=== PATIENT | female | born 1985 | race Caucasian/White ===

== ENCOUNTER 2023-05-23 | Outpatient (REF) | payer MEDICARE, SELFPAY | END 2023-05-23 00:01 | disposition home or self-care (01) | LOC: LAB | PROVIDERS: Visit Provider Obstetrics & Gynecology | DX: N64.52 Nipple discharge (principal) | CPT/HCPCS: 87070 ==

== ENCOUNTER 2023-12-01 08:58 | Outpatient (OUT) | payer MEDICARE, MEDICAID, SELFPAY ==
--- NOTE | 2023-12-01 09:09 | US_ITS ---
The [address] [address] Patient Name: ALMA DELIA NORTON MRN: [id number] date: 1985 Sex: F Assigned Patient Location: [place] Current Patient Location: [place] Accession/Order Number: [id number] Exam Date: 12/01/2023 09:40 Report Date: 12/01/2023 10:21 At the request of: SAMANTA CASTELLANOS Procedure: US chest EXAM: US chest HISTORY: Swollen Breast, Breast Pain, Left Nipple Drainage COMPARISON: None. TECHNIQUE: Grayscale and color ultrasound FINDINGS: Identified in the region of the patient's pain and swelling is a 2.3 x 2.3 x 1.6 cm heterogeneous hypoechogenic cystic mass having a thick wall measuring up to 2.7 mm.. There is hypervascularity peripherally with no definite internal vascularity. This lesion is 4 mm below the skin surface within the subcutaneous fat superficial to muscle US/US chest IMPRESSION: 2.3 cm cystic mass with a hypervascular thick rim. Consider an abscess Electronically authenticated by: CHANTELL BEY Date: 12/01/2023 10:21
--- OUTSIDE RECORDS SUMMARY | 2023-12-01 09:20 | XMS_ITS | CCD ---
Author Organization [facility] Inform ion Partnership [facility] Care Team Providers Care Machine Attendant Name Role Phone JAMES BLACKMON Unavailable Unavailable JAMES BLACKMON Unavailable Unavailable RADHA PRESTON Unavailable Unavailable KEILA LYNCH Unavailable Unavailable EDEN, ANTON Unavailable Unavailable HAY, ANTON Unavailable Unavailable JUAN DIEGO MANZANARES Unavailable Unavailable STRUS, SHAJI Unavailable Unavailable STRUS, SHAJI Unavailable Unavailable STRUS, SHAJI Unavailable Unavailable Lacey LAZO Primary Care Physician Sharonda CORTEZ Unavailable Kyung Mayorga Unavailable Unavailable Keila Lynch Primary Care Provider David Eubanks Unavailable James Rodriguez V Unavailable Nerissa Rivera Primary Care Physician Unavail able Keila Lynch Primary Care Provider David Eubanks Unavailable NERISSA RIVERA Primary Care Physician [phone] Kem Patel Attending Unavailable Kem Patel Admitting Unavailable Lacey Lazo Primary Care Unavailable Kanu Rudolph Attending Unavailable Kanu Rudolph Admitting Unavailable Lacey Lazo Primary Care Unavailable Michael Guzman Unavailable SAUD BLUM Primary Care Physician [phone] NONE, XXXX Primary Care Physician Unavailab humberto MICHEL, GENERIC Primary Care Physician Unavailab Irasema Masters Primary Care Physician Keila Lynch PA-C Primary Care Provider David Eubanks DO Unavailable JOHN PIERCE Attending Unavailable SYED KEILA JEAN Primary Care Unavailabl e SYED, KEILA MANNING Primary Care Unavailabl e EDMUNDO DEVLIN Referring Unavailable EDMUNDO DEVLIN Attending Unavailable KEILA LYNCH KERRI Primary Care UnavailHERI Goncalves Attending Unavailable BAN BENTLEY Attending Unavailable BAN BENTLEY Referring Unavailable KEYLA GUSMAN Attending Unavailable MICHAELA RILEY Attending Unavailable SAMANTA CASTELLANOS Attending Unavailable Aicha Dean Attending Unavailable MissIrasema roach Attending Unavailab humberto DorisDaron Attending Unavailable Missler, Irasema Medley Attending Unavailab le Missler, Irasema Medley Attending Unavailab le Missler, Irasema Medley Attending Unavailab le Missler, Irasema Medley Attending Unavailab humberto MouranDaron bazzi Attending Unavailable James Faulkner Attending Unavailable DO Celena Dias Attending Unavailable James Faulkner Attending Unavailable James Faulkner Attending Unavailable Aicha Dean Admitting Unavailable Aicha Dean Attending Unavailable Aicha Dean Referring Unavailable Missmarley, Irasema Medley Admitting Unavailab le Missmarley, Irasema Medley Attending Unavailab humberto BEVERLYKYUNG Attending Unavailable SAMANTA CASTELLANOS Referring Unavailable WILLIE GALINDO Attending UnavailANNABEL Antonio Attending Unavailable Allergies Allergy Classification Reported Allergen(s) Allergy Type Date of Onset Reaction(s) Facility Eggs (1 source) Egg Food Allergy Vomiting (disorder) [facility] Latex (1 source) Latex Substance Allergy Eruption of skin (disorder) [facility] lurasidone (1 source) lurasidone; Translations: [lurasidone] Drug Allergy Intolerance, function (observable entity) [facility] Opioid Agonists (2 sources) Codeine; Translations: [codeine] Drug Allergy Childhood, function (observable entity) [facility] Penicillins (antibiotic) (1 source) Penicillin; Translations: [penicillin] Drug Allergy Childhood, function (observable entity) [facility] Phenazopyridine (1 source) Phenazopyridine; Translations: [phenazopyridine] Drug Allergy Pain [facility] Serotonin-1b and Serotonin-1d Receptor Agonists (1 source) SUMAtriptan; Translations: [sumatriptan] Drug Allergy Respiratory function (observable entity), Tight chest (finding) [facility] (3 sources) codeine; Translations: [CODEINE] Drug Allergy 08-17-19 06 [facility] Rep[facility] (2 sources) egg extract; Translations: [EGG] Drug Allergy 07-11-19 [facility] (20 sources) Latex; Translations: [LATEX] Drug allergy (disorder) 08-17-19 Eruption of skin (disorder) [facility] (3 sources) morphine; Translations: [MORPHINE] Drug Allergy 05-23-19 09 [facility] (2 sources) Penicillins; Translations: [PENICILLINS] Drug allergy (disorder) 11-16-19 07 [facility] (2 sources) phenazopyridine; Translations: [Pyridium] Drug Allergy [facility] (20 sources) Codeine; Translations: [codeine] Drug Allergy 08-17-19 Childhood, function (observable entity) [facility] (20 sources) Egg; Translations: [Eggs] Food allergy Vomiting (disorder) [facility] (20 sources) lurasidone; Translations: [lurasidone] Drug Allergy 03-31-20 22 Intolerance, function (observable entity), Other: See Comments, Intolerance [facility] (20 sources) Morphine; Translations: [morphine] Drug Allergy 05-23-19 09 rash, SOB, Unknown [facility] (20 sources) Penicillin; Translations: [penicillin] Drug Allergy Childhood, function (observable entity) [facility] (20 sources) Phenazopyridine; Translations: [phenazopyridine] Drug Allergy Pain, Unknown [facility] (20 sources) SUMAtriptan; Translations: [sumatriptan] Drug Allergy Respiratory function (observable entity), Tight chest (finding) [facility] (20 sources) Dairy 1 Drug intolerance unknown [facility] Comment on above: splenda molasses dairy high fructose corn syrup eggs Reactions of the above unkown. splenda molasses dairy high fructose corn syrup eggs Reactions of the above unkown. (11 sources) egg extract Drug Allergy 07-11-19 Rash [facility] Work Phone: (11 sources) Latex Propensity to adverse reactions 08-17-19 Rash, Swelling [facility] (1 source) Penicillins Propensity to adverse reactions 11-16-19 07 [facility] (12 sources) Phenazopyridine; Translations: [PHENAZOPYRIDINE HCL] Drug Allergy 10-31-19 08 [facility] (12 sources) SUMAtriptan; Translations: [SUMATRIPTAN SUCCINATE] Drug Allergy 05-16-19 10 [facility] (12 sources) Erythromycin; Translations: [ERYTHROMYCIN] Drug Allergy 03-31-20 Other: See Comments [facility] (10 sources) Penicillins Propensity to adverse reactions 11-16-19 [facility] (11 sources) semaglutide; Translations: [SEMAGLUTIDE] Drug Allergy 03-31-20 GI Upset [facility] (1 source) Codeine Drug Allergy 07-08-19 [facility] Repository (1 source) Morphine Drug Allergy 07-08-19 [facility] Rep[facility] (1 source) Penicillins Drug allergy (disorder) 07-08-19 [facility] Repository (1 source) Phenazopyridine Drug Allergy 07-08-19 [facility] Rep[facility] (1 source) SUMAtriptan Drug Allergy 07-08-19 [facility] Rep[facility] (3 sources) codiene Propensity to adverse reactions Unknown [facility] Other (1 source) Ciprofloxacin; Translations: [ciprofloxacin] Drug Allergy [facility] Repository (1 source) Ciprofloxacin; Translations: [Cipro] Drug Allergy [facility] Repository (1 source) Dairy; Translations: [Dairy] Propensity to adverse reactions (disorder) [facility] Repository Medications Current Medications Medication Drug Class(es) Dates Sig (Normalized) Sig (Original) 0.5 ML semaglutide 0.5 MG/ML Auto-Injector (3 sources) Start: 07-23-2021 End: 09-17-2021 inject 0.25 mg by subcutaneous injection every week Wegovy (0.25 mg dose) subcutaneous solution 0.25 mg, SubCutaneous, qWeek, X 4 week(s), # 4 EA, Refills(s) 1, Pharmacy: [facility] #[id number], 175, cm, 07/23/21 10:50:00 EDT, Height/Length Dosing, 136.3, kg, 07/23/21 10:50:00 EDT, Weight Dosing Start Date: 07/23/21 Stop Date: 09/17/21 Status: Ordered 0.5 ML tirzepatide 10 MG/ML Auto-Injector [Mounjaro] (3 sources) Mounjaro 5 MG/0. 5ML as directed Subcutaneous Active 3 ML semaglutide 1.34 MG/ML Pen Injector [Ozempic] (10 sources) Start: 12-08-2021 inject 1 mg by subcutaneous injection every week Ozempic (1 mg dose) 4 mg/3 mL subcutaneous solution 1 mg, SubCutaneous, qWeek, # 4 EA, Refills(s) 3, Pharmacy: [facility] #[id number], 175, cm, 11/24/21 9:21:00 EDT, Height/Length Dosing, 136.3, kg, 11/24/21 9:21:00 EDT, Weight Dosing Start Date: 12/08/21 Status: Ordered Start: 10-15-2021 Ozempic (1 mg dose) 4 mg/3 mL subcutaneous solution 1 mg, SubCutaneous, qWeek, To be filled after 0.5 mg dose is filled, # 1 EA, Refills(s) 11, Pharmacy: [facility]/pharmacy #[id number], 175.3, cm, 09/30/21 11:01:00 EDT, Height/Length Dosing, 136.5, kg, 09/30/21 11:01:00 EDT, Weight Dosing Start Date: 10/15/21 Status: Ordered acetaminophen 325 mg / HYDROcodone bitartrate 5 mg oral tablet (2 sources) Opioid Agonist Start: 11-28-2023 End: 11-30-2023 [place] 325 mg-5 mg oral tablet 1 tab(s), Oral, q6hr for pain for 2 day(s), 8 tab(s), Refill(s) 0, [facility] #[id number], 175, cm, 11/28/23 19:12:00 EDT, Height/Length Dosing, 139, kg, 11/28/23 19:12:00 EDT, Weight Dosing Start Date: 11/28/23 Stop Date: 11/30/23 Status: Ordered Albuterol (Eqv-ProAir HFA) 90 mcg/inh inhalation aerosol (12 sources) Start: 03-14-2023 take 2 puff(s) by inhalation every six hours Albuterol (Eqv-ProAir HFA) 90 mcg/inh inhalation aerosol 2 puff(s), Inhalation, q6hr, 18 gm, Refill(s) 4, [facility] #[id number], 173, cm, 03/14/23 16:23:00 EST, Height/Length Dosing, 132.2, kg, 03/14/23 16:23:00 EST, Weight Dosing Start Date: 03/14/23 Status: Ordered albuterol CFC free 90 mcg/inh Inh Aer w/Adapt 8 gm (Ventolin) (13 sources) Start: 03-25-2021 take 2 puff(s) by inhalation every six hours for wheezing albuterol CFC free 90 mcg/inh Inh Aer w/Adapt 8 gm (Ventolin) 2 puff(s), Inhalation, q6hr for wheezing, 18 gram, Refill(s) 11, [facility] #[id number], 176, cm, 03/25/21 10:04:00 EST, Height/Length Dosing, 136.6, kg, 03/25/21 10:04:00 EST, Weight Dosing Start Date: 03/25/21 Status: Ordered Ascorbic Acid (20 sources) Vitamin C Start: 07-07-2020 Vitamin C Refills(s) 0 Start Date: 07/07/20 Status: Ordered azithromycin 250 mg oral tablet (2 sources) Macrolide Antimicrobial Start: 07-01-2023 End: 07-06-2023 Zithromax 250 mg Tab = 1 packet(s), Oral, As Directed, as directed on package labeling, X 5 day(s), # 6 tab(s), Refills(s) 0, Pharmacy: [facility] #[id number], 173, cm, 07/01/23 12:09:00 EST, Height/Length Dosing, 137, kg, 07/01/23 12:09:00 EST, Weight Dosing Start Date: 07/01/23 Stop Date: 07/06/23 Status: Ordered Start: 03-14-2023 End: 03-19-2023 azithromycin 250 mg Tab = 1 packet(s), Oral, As Directed, as directed on package labeling, X 5 day(s), # 6 tab(s), Refills(s) 0, Pharmacy: [facility] #[id number], 173, cm, 03/14/23 16:23:00 EST, Height/Length Dosing, 132.2, kg, 03/14/23 16:23:00 EST, Weight Dosing Start Date: 03/14/23 Stop Date: 03/19/23 Status: Ordered bifidobacterium infantis 4 mg oral capsule (6 sources) Start: 06-22-2021 take 1 capsule by mouth once daily Align 4 mg oral capsule 4 mg = 1 cap(s), Oral, Daily, # 28 cap(s), Refills(s) 2, Pharmacy: [facility] #[id number], 175, cm, 06/22/21 13:23:00 EST, Height/Length Dosing, 134.4, kg, 06/22/21 13:23:00 EST, Weight Dosing Start Date: 06/22/21 Status: Ordered brexpiprazole 3 mg oral tablet (20 sources) Atypical Antipsychotic Start: 05-20-2023 Rexulti 3 mg oral tablet Refills(s) 0 Start Date: 05/20/23 Status: Ordered Start: 01-07-2022 brexpiprazole (REXULTI) 2 mg tablet Start: 11-24-2021 Rexulti 1 mg o ral tablet Refills(s) 0 Start Date: 11/24/21 Status: Ordered take 1 tablet by [facility] every twenty-four hours 12 hr buPROPion hydrochlorid e 100 mg extended release oral tablet (20 sources) Aminoketone Start: 09-23-2022 Start: 11-21-2019 take 1 tablet by [facility] once daily buPROPion 100 mg ER Tab 100 mg = 1 tab(s), Oral, Daily, # 30 tab(s), Refills(s) 0, Pharmacy: [facility] #[id number], 175, cm, 10/26/19 8:51:00 EDT, Height/Length Measured, 133.1, kg, 10/26/19 8:51:00 EDT, Weight Measured Start Date: 11/21/19 Status: Ordered Wellbutrin Not-T aking End: 03-31-2022 take 1 tablet by mouth once daily buPROPion XL (WELLBUTRIN XL) 300 mg 24 hr tablet Take 300 mg by mouth once daily. 0 03/31/2022 Discontinued (Course of therapy completed) Comment on above: Take 300 mg by mouth once daily. bupropion hydrochloride 105 MG / dextromethorphan hydrobromide 45 MG Extended Release Oral Tablet [Auvelity] (9 sources) Start: 05-20-2023 Auvelity 45 mg-105 mg oral tablet, extended release Refill(s) 0 Start Date: 05/20/23 Status: Ordered busPIRone hydrochloride 15 mg oral tablet (20 sources) Start: 05-20-2023 take 1 tablet by mouth three times daily busPIRone 15 mg Tab TAKE 1 TABLET BY MOUTH THREE TIMES DAILY Start Date: 05/20/23 Status: Ordered Start: 09-23-2022 busPIRone Oral , BID, Refills(s) 0 Start Date: 09/23/22 Status: Ordered Start: 03-23-2022 buspirone HCl (BUSPAR ORAL) take 1 tablet by [facility] three times daily BuSpar 15 MG 1 tablet Orally THREE TIMES A DAY Active cariprazine 3 mg oral capsule (6 sources) Atypical Antipsychotic Start: 08-25-2021 take 1 mg by mouth once daily Vraylar 3 mg oral capsule mg cap(s), Oral, Daily Start Date: 08/25/21 Status: Ordered cephalexin 500 mg oral capsule (1 source) Cephalosporin Antibacterial Start: 11-29-2023 End: 12-09-2023 take 1 capsule by mouth three times daily Keflex 500 mg Cap 500 mg = 1 cap(s), Oral, TID, X 10 day(s), # 30 cap(s), Refills(s) 0, Pharmacy: [facility] #[id number], 175, cm, 11/29/23 20:31:00 EDT, Height/Length Dosing, 139, kg, 11/29/23 20:31:00 EDT, Weight Dosing Start Date: 11/29/23 Stop Date: 12/09/23 Status: Ordered ciprofloxacin 500 mg oral tablet (3 sources) Quinolone Antimicrobial Start: 12-25-2021 take 1 tablet by mouth twice daily Cipro 500 mg Tab 500 mg = 1 tab(s), Oral, BID, # 28 tab(s), Refills(s) 0 Start Date: 12/25/21 Status: Ordered clindamycin 300 mg oral capsule (2 sources) Lincosamide Antibacterial Start: 11-28-2023 End: 12-05-2023 take 1 capsule by mouth every six hours clindamycin 300 mg oral cap 300 mg = 1 cap(s), Oral, q6hr, X 7 day(s), # 28 cap(s), Refills(s) 0, Pharmacy: [facility] #[id number], 175, cm, 11/28/23 19:12:00 EDT, Height/Length Dosing, 139, kg, 11/28/23 19:12:00 EDT, Weight Dosing Start Date: 11/28/23 Stop Date: 12/05/23 Status: Ordered Clotrimazole (6 sources) Azole Antifungal Start: 06-22-2021 clotrimazole Top 1% Crm 1 carlo, Topical, BID, 45 gram, Refill(s) 0, [facility] #16, 175, cm, 06/22/21 13:23:00 EST, Height/Length Dosing, 134.4, kg, 06/22/21 13:23:00 EST, Weight Dosing Start Date: 06/22/21 Status: Ordered dextromethorphan-bu PROPion (AUVELITY) 45-105 mg tablet (2 sources) Start: 03-10-2023 take 1 tablet by mouth twice daily dextromethorphan- buPROPion (AUVELITY) 45-105 mg tablet 1 tablet Orally twice daily for 90 days 0 03/10/2023 Active dicyclomine hydrochloride 20 mg oral tablet (20 sources) Anticholinergic Start: 08-18-2022 take 1 tablet by mouth every eight hours Start: 12-25-2021 End: 01-01-2022 take 1 capsule by mouth four times daily Bentyl 10 mg Cap 10 mg = 1 cap(s), Oral, QID, X 7 day(s), # 14 cap(s), Refills(s) 0 Start Date: 12/25/21 Stop Date: 01/01/22 Status: Ordered Start: 11-01-2021 End: 11-08-2021 take 1 capsule by mouth four times daily Bentyl 10 mg Cap 10 mg = 1 cap(s), Oral, QID, X 7 day(s), # 14 cap(s), Refills(s) 0 Start Date: 11/01/21 Stop Date: 11/08/21 Status: Ordered Start: 02-06-2021 take 1 tablet by [facility] four times daily dicyclomine 20 mg Tab 20 mg = 1 tab(s), Oral, QID, # 12 tab(s), Refills(s) 0, Pharmacy: [facility] #[id number], 175, cm, 02/06/21 19:35:00 EDT, Height/Length Dosing, 136, kg, 02/06/21 19:35:00 EDT, Weight Dosing Start Date: 02/06/21 Status: Ordered Comment on above: Take 20 mg by mouth as needed. 0.5 ml dulaglutide 3 mg/ml auto-injector (1 source) GLP-1 Receptor Agonist Start: 03-30-20 End: 09-27-19 inject 1.5 mg by subcutaneous injection every week Trulicity Pen 1.5 mg/0.5 mL subcutaneous solution 1.5 mg, SubCutaneous, qWeek, X 30 day(s), # 4 EA, Refills(s) 5, Pharmacy: [facility] #[id number], 175, cm, 12/31/21 19:57:00 EDT, Height/Length Dosing, 139.2, kg, 12/31/21 19:57:00 EDT, Weight Dosing Start Date: 03/30/22 Stop Date: 09/26/22 Status: Ordered eluxadoline 75 mg oral tablet (2 sources) mu-Opioid Receptor Agonist Start: 10-30-19 take 1 tablet by mouth every twelve hours Emgality Prefilled Syringe 120 mg/mL subcutaneous solution (3 sources) Start: 08-26-19 inject 1 mg by subcutaneous injection every month Emgality Prefilled Syringe 120 mg/mL subcutaneous solution mg, SubCutaneous, qMonth Start Date: 08/25/21 Status: Ordered famotidine 40 mg oral tablet (19 sources) Histamine-2 Receptor Antagonist Start: 08-19-19 Start: 05-23-2022 take 1 tablet by [facility] once daily Pepcid 20 mg Tab 20 mg = 1 tab(s), Oral, Daily, # 14 tab(s), Refills(s) 0, Pharmacy: [facility]/pharmacy #[id number], 175, cm, 05/23/22 6:53:00 EST, Height/Length Dosing, 139.2, kg, 05/23/22 6:53:00 EST, Weight Dosing Start Date: 05/23/22 Status: Ordered Flonase 0.05 mg/inh nasal spray (6 sources) Start: 12-15-2018 Flonase 0.05 m g/inh nasal spray 2 spray(s), Nasal, Daily, 16 gram, Refill(s) 5, each nostril, [facility] #[id number] Start Date: 12/15/18 Status: Ordered fluticasone propionate 0.05 mg/actuat metered dose nasal spray (19 sources) Corticosteroid Start: 09-09-2020 End: 08-18-2021 take 2 spray(s) nasal route once daily fluticasone (FLONASE) 50 mcg/actuation nasal spray Indications: Severe persistent asthma without complication , Dyspnea, unspecified type , Obesity, unspecified classification, unspecified obesity type, unspecified whether serious comorbidity present , Allergic rhinitis due to pollen, unspecified seasonality , Sleep apnea, unspecified type SHAKE LIQUID AND USE 2 SPRAYS IN EACH NOSTRIL EVERY DAY 48 g 3 08/18/2021 Active Start: 12-15-2018 Flonase 0.05 m g/inh nasal spray 2 spray(s), Nasal, Daily, 16 gram, Refill(s) 5, each nostril, [facility] #[id number] Start Date: 12/15/18 Status: Ordered Comment on above: SHAKE LIQUID AND USE 2 SPRAYS IN EACH NOSTRIL EVERY DAY 120 actuat fluticasone propionate 0.23 mg/actuat / salmeterol 0.021 mg/actuat metered dose inhaler (11 sources) Corticosteroid, beta2-Adrenergic Agonist Start: 01-07-20 take 2 puff(s) by mouth twice daily ADVAIR HFA 230-21 mcg/actuation inhaler Indications: Severe persistent asthma without complication , Dyspnea, unspecified type , Obesity, unspecified classification, unspecified obesity type, unspecified whether serious comorbidity present , Allergic rhinitis due to pollen, unspecified seasonality , Gastroesophageal reflux disease , Sleep apnea, unspecified type INHALE 2 PUFFS BY MOUTH TWICE DAILY DIRECTED 12 g 11 01/06/2021 Active Comment on above: INHALE 2 PUFFS BY [facility] TWICE DAILY DIRECTED 1 ml galcanezumab-gnlm 120 mg/ml auto-injector (20 sources) Start: 05-20-19 inject 1 mL by subcutaneous injection every month Emgality Prefilled Pen 120 mg/mL subcutaneous solution ADMINISTER 1 ML UNDER THE SKIN MONTHLY Start Date: 05/20/23 Status: Ordered Start: 10-07-2022 inject 1 mL by subcu taneous injection every 30 days galcanezumab-gnlm (EMGALITY PEN) 120 mg/mL pen ADMINISTER 1 ML UNDER THE SKIN EVERY 30 DAYS 0 10/07/2022 Active Start: 08-25-2021 inject 1 mg by subcu taneous injection every month Emgality Prefilled Syringe 120 mg/mL subcutaneous solution mg, SubCutaneous, qMonth Start Date: 08/25/21 Status: Ordered hydrOXYzine pamoate 25 mg oral capsule (19 sources) Antihistamine Start: 05-20-2023 take 1 capsule by mouth every six hours as needed for anxiety hydrOXYzine pamoate 25 mg Cap TAKE 1 CAPSULE BY MOUTH EVERY 6 HOURS NEEDED FOR ANXIETY Start Date: 05/20/23 Status: Ordered Start: 03-22-2022 take 1 capsule by [facility] once daily at bedtime as needed hydrOXYzine pamoate (VISTARIL) 25 mg capsule TAKE 1 CAPSULE BY MOUTH EVERY DAY AT BEDTIME NEEDED 0 03/22/2022 Active Comment on above: TAKE 1 CAPSULE BY [facility] EVERY DAY AT BEDTIME NEEDED Imodium A-D EZ Chews 2 mg oral tablet, chewable (9 sources) Start: 10-21-2022 Imodium A-D EZ Chews 2 mg oral tablet, chewable 2 mg, 1 tab(s), Chewed, q4hr Diarrhea, 12 tab(s), Refill(s) 0, [facility]/pharmacy #[id number], 173, cm, 10/21/22 16:01:00 EDT, Height/Length Dosing, 139, kg, 10/21/22 16:01:00 EDT, Weight Dosing Start Date: 10/21/22 Status: Ordered L-Tyrosine (3 sources) Start: 03-25-2021 L-Tyrosine Refills(s) 0 Start Date: 03/25/21 Status: Ordered lamoTRIgine (6 sources) Mood Stabilizer, Anti-epileptic Agent Start: 06-22-2021 lamotrigine 25 mg Tab Refills(s) 0 Start Date: 06/22/21 Status: Ordered 200 actuat levalbuterol 0.04 5 mg/actuat metered dose inhaler (3 sources) beta2-Adrenergic Agonist take 1 puff(s) by in halation every four hours as needed Xopenex HFA 45 MCG/ACT 1 puff as needed Inhalation every 4 hrs Active loperamide hydrochloride 2 mg chewable tablet (17 sources) Opioid Agonist Start: 10-21-2022 Imodium A-D EZ Chews 2 mg oral tablet, chewable 2 mg, 1 tab(s), Chewed, q4hr Diarrhea, 12 tab(s), Refill(s) 0, [facility]/pharmacy #[id number], 173, cm, 10/21/22 16:01:00 EDT, Height/Length Dosing, 139, kg, 10/21/22 16:01:00 EDT, Weight Dosing Start Date: 10/21/22 Status: Ordered Start: 02-06-2021 take 1 tablet by [facility] th every four hours as needed Imodium A-D 2 mg oral tablet 2 mg = 1 tab(s), Oral, q4hr, PRN for loose stools, # 12 tab(s), Refills(s) 0, Pharmacy: [facility] #[id number], 175, cm, 02/06/21 19:35:00 EDT, Height/Length Dosing, 136, kg, 02/06/21 19:35:00 EDT, Weight Dosing Start Date: 02/06/21 Status: Ordered lumateperone 42 mg oral capsule (3 sources) Start: 06-22-2021 Caplyta 42 mg oral capsule Refills(s) 0 Start Date: 06/22/21 Status: Ordered Magnesium Oxide (15 sources) Start: 09-23-2022 magnesium oxid e Oral, Refills(s) 0 Start Date: 09/23/22 Status: Ordered meclizine hydrochloride 25 mg oral tablet (2 sources) Antiemetic Start: 12-31-2021 End: 01-05-2022 take 1 tablet by mouth three times daily meclizine 25 mg Tab 25 mg = 1 tab(s), Oral, TID, X 5 day(s), # 15 tab(s), Refills(s) 0, Pharmacy: [facility] #[id number], 175, cm, 12/31/21 19:57:00 EDT, Height/Length Dosing, 139.2, kg, 12/31/21 19:57:00 EDT, Weight Dosing Start Date: 12/31/21 Stop Date: 01/05/22 Status: Ordered metFORMIN hydrochloride 500 mg oral tablet (9 sources) Biguanide Start: 08-25-2021 End: 12-23-2021 take 2 tablets by mouth twice daily metformin 500 mg oral tablet, extended release 1,000 mg = 2 tab(s), Oral, BID, X 30 day(s), # 120 tab(s), Refills(s) 3, Pharmacy: [facility] #[id number], 176, cm, 08/25/21 14:44:00 EDT, Height/Length Dosing, 138.6, kg, 08/25/21 14:44:00 EDT, Weight Dosing Start Date: 08/25/21 Stop Date: 12/23/21 Status: Ordered Start: 06-08-2018 End: 02-18-2022 take 1 tablet by mouth every twenty-four hours metoclopramide 5 mg oral tablet (1 source) Dopamine-2 Receptor Antagonist Start: 07-25-2023 End: 08-01-2023 take 1 tablet by mouth four times daily Reglan 5 mg Tab 5 mg = 1 tab(s), Oral, QID, X 7 day(s), # 28 tab(s), Refills(s) 0, Pharmacy: [facility] #[id number], 173, cm, 07/25/23 18:35:00 EDT, Height/Length Dosing, 137, kg, 07/25/23 18:35:00 EDT, Weight Dosing Start Date: 07/25/23 Stop Date: 08/01/23 Status: Ordered metroNIDAZOLE 500 mg oral tablet (2 sources) Nitroimidazole Antimicrobial Start: 12-25-2021 End: 01-04-2022 take 1 tablet by mouth three times daily MetroNIDAZOLE 500 mg Tab 500 mg = 1 tab(s), Oral, TID, X 10 day(s), # 30 tab(s), Refills(s) 0 Start Date: 12/25/21 Stop Date: 01/04/22 Status: Ordered Misc Medication (2 sources) Start: 09-23-2022 Misc Medication Start Date: 09/23/22 Status: Ordered montelukast 10 mg oral tablet (20 sources) Leukotriene Receptor Antagonist Start: 07-15-2020 take 1 tablet by mouth once daily in the evening Singulair 10 mg Tab 10 mg = 1 tab(s), Oral, qPM, # 30 tab(s), Refills(s) 1, Pharmacy: [facility] #[id number], 175, cm, 06/22/21 13:23:00 EST, Height/Length Dosing, 134.4, kg, 06/22/21 13:23:00 EST, Weight Dosing Start Date: 06/22/21 Status: Ordered Comment on above: Take 1 tablet by [facility] daily at bedtime. Mounjaro (2 sources) Start: 09-23-2022 Mounjaro SubCutaneous, qWeek, Refills(s) 0 Start Date: 09/23/22 Status: Ordered Mounjaro (13 sources) Start: 09-23-2022 Mounjaro SubCutaneous, qWeek, Refills(s) 0 Start Date: 09/23/22 Status: Ordered Multi Vitamin+ (20 sources) Start: 02-27-2019 Multi Vitamin+ 1 gummy, Chewed, Daily, Refill(s) 0 Start Date: 02/27/19 Status: Ordered naproxen 500 mg oral tablet (1 source) Nonsteroidal Anti-inflammatory Drug Start: 11-29-2023 take 1 tablet by mouth twice daily as needed for pain Naprosyn 500 mg Tab 500 mg = 1 tab(s), Oral, BID, PRN for pain, # 20 tab(s), Refills(s) 0, Pharmacy: [facility] #[id number], 175, cm, 11/29/23 20:31:00 EDT, Height/Length Dosing, 139, kg, 11/29/23 20:31:00 EDT, Weight Dosing Start Date: 11/29/23 Status: Ordered Non-Formulary Medication (17 sources) Start: 07-07-2020 Non-Formulary Medication See Instructions, L Tyrosine 1 tablet daily Start Date: 07/07/20 Status: Ordered nystatin [id number] unt/ml topical cream (13 sources) Polyene Antifungal Start: 12-21-2022 nystatin Top 100,000 units/g Crm 15 gram 1 carlo, Topical, BID, 30 gram, Refill(s) 1, [facility] #[id number], 173, cm, 12/21/22 13:04:00 EDT, Height/Length Dosing, 137.9, kg, 12/21/22 13:04:00 EDT, Weight Dosing Start Date: 12/21/22 Status: Ordered omeprazole 40 mg delayed release oral capsule (20 sources) Proton Pump Inhibitor Start: 06-23-2020 take 1 capsule by mouth twice daily omeprazole 10 mg Cap-EC 10 mg = 1 cap(s), Oral, BID, # 180 caplet(s), Refills(s) 1, Pharmacy: [facility] #[id number], 175, cm, 06/05/20 9:59:00 EST, Height/Length Dosing, 133.3, kg, 06/05/20 9:59:00 EST, Weight Dosing Start Date: 06/23/20 Status: Ordered Start: 03-26-2020 take 1 capsule by [facility] twice daily 30 minutes before breakfast omeprazole 40 mg Cap-DR TAKE 1 CAPSULE BY MOUTH TWICE DAILY 30 MINUTES BEFORE BREAKFAST AND EVENING MEAL Start Date: 05/20/23 Status: Ordered End: 06-24-2022 take 1 capsule by mouth once daily omeprazole (PRILOSEC) 40 mg capsule Take 40 mg by mouth once daily. 0 06/24/2022 Discontinued (Course of therapy completed) Comment on above: Take 40 mg by mouth once daily. omeprazole 10 mg Cap-EC (6 sources) Start: take 1 capsule by mouth twice daily omeprazole 10 mg Cap-EC 10 mg = 1 cap(s), Oral, BID, # 180 caplet(s), Refills(s) 1, Pharmacy: [facility] #[id number], 175, cm, 06/05/20 9:59:00 EST, Height/Length Dosing, 133.3, kg, 06/05/20 9:59:00 EST, Weight Dosing Start Date: 06/23/20 Status: Ordered ondansetron 4 mg oral tablet (20 sources) Serotonin-3 Receptor Antagonist Start: 2 take 1 tablet by mouth every eight hours as needed for nausea Zofran 4 mg Tab 4 mg = 1 tab(s), Oral, q8hr, PRN Nausea/Vomiting, # 12 tab(s), Refills(s) 0 Start Date: 12/25/21 Status: Ordered Comment on above: Take 4 mg by mouth. pregabalin 25 mg oral capsule (20 sources) Start: 4 take 1 capsule by mouth twice daily pregabalin 25 mg Cap 25 mg = 1 cap(s), Oral, BID, # 60 cap(s), Refills(s) 0 Start Date: 05/20/23 Status: Ordered Start: 04-16-2020 take 1 capsule by mo uth twice daily pregabalin 75 mg Cap 75 mg = 1 cap(s), Oral, BID, Refills(s) 0 Start Date: 04/16/20 Status: Ordered Start: 04-07-2020 take 1 capsule by mo uth three times daily Pregabalin (LYRICA) 200 mg capsule Indications: Myalgia , Chronic pain syndrome , Lumbar disc herniation , Radiculopathy, lumbosacral region Take 1 capsule by mouth three times daily for 180 days. 90 capsule 5 04/07/2020 Active Start: 01-30-2016 take 1 capsule by mo uth every eight hours Comment on above: Take 1 capsule by mo uth three times daily for 180 days. promethazine hydrochloride 12.5 mg rectal suppository (20 sources) Phenothiazine Start: 3 take 12.5 mg rectal route every four hours as needed for nausea Phenergan 12.5 mg Supp 12.5 mg = 1 supp, Rectal, q4hr, PRN Nausea/Vomiting, # 6 EA, Refills(s) 0, Pharmacy: [facility] #[id number], 173, cm, 11/29/23 13:57:00 EST, Height/Length Dosing, 134.1, kg, 04/06/23 13:57:00 EST, Weight Dosing Start Date: 04/06/23 Status: Ordered Start: 05-23-2022 take 25 mg rectal ro [facility] every six hours as needed for nausea Phenergan 25 mg Supp 25 mg = 1 supp, Rectal, q6hr, PRN Nausea/Vomiting, # 6 EA, Refills(s) 0, Pharmacy: [facility] #[id number], 175, cm, 05/23/22 6:53:00 EST, Height/Length Dosing, 139.2, kg, 05/23/22 6:53:00 EST, Weight Dosing Start Date: 05/23/22 Status: Ordered 0.25 mg, 0.5 mg dose 1.5 ml semaglutide 1.34 mg/ml pen injector (7 sources) Start: 11-24-2021 inject 2 mg by intramuscular injection every week semaglutide 2 mg/1.5 mL subcutaneous solution 2 mg, IntraMuscular, qWeek, # 4 EA, Refills(s) 11, 175, cm, 11/24/21 9:21:00 EDT, Height/Length Dosing, 136.3, kg, 11/24/21 9:21:00 EDT, Weight Dosing Start Date: 11/24/21 Status: Ordered Start: 10-15-2021 inject 0.5 mg by sub cutaneous injection every week Ozempic 2 mg/1.5 mL (0.25 mg or 0.5 mg dose) subcutaneous solution 0.5 mg, SubCutaneous, qWeek, 1 EA, Refill(s) 0, [facility] #[id number], 175.3, cm, 09/30/21 11:01:00 EDT, Height/Length Dosing, 136.5, kg, 09/30/21 11:01:00 EDT, Weight Dosing Start Date: 10/15/21 Status: Ordered Start: 08-25-2021 inject 0.25 mg by esposito bcutaneous injection every week Ozempic 2 mg/1.5 mL (0.25 mg or 0.5 mg dose) subcutaneous solution 0.25 mg, SubCutaneous, qWeek, 1 EA, Refill(s) 0, [facility] #[id number], 176, cm, 08/25/21 14:44:00 EDT, Height/Length Dosing, 138.6, kg, 08/25/21 14:44:00 EDT, Weight Dosing Start Date: 08/25/21 Status: Ordered sertraline 50 mg oral tablet (8 sources) Serotonin Reuptake Inhibitor Start: 04-29-2020 take 1 tablet by mouth once daily sertraline 50 mg Tab 50 mg = 1 tab(s), Oral, Daily, Refills(s) 0 Start Date: 04/29/20 Status: Ordered Zoloft 100 1 tab let for 30 Not-Taking End: 03-31-2022 sertraline (ZOLOFT) 100 mg t ablet Take 25 mg by mouth once daily. 0 03/31/2022 Discontinued (Course of therapy completed) Comment on above: Take 25 mg by mouth once daily. sucralfate 1000 mg oral tablet (1 source) Aluminum Complex Start: End: take 1 tablet by mouth four times daily Carafate 1 gram Tab 1 gm = 1 tab(s), Oral, QID, X 7 day(s), # 28 tab(s), Refills(s) 0, Pharmacy: [facility]/pharmacy #[id number], 175, cm, 05/23/22 6:53:00 EST, Height/Length Dosing, 139.2, kg, 05/23/22 6:53:00 EST, Weight Dosing Start Date: 05/23/22 Stop Date: 05/30/22 Status: Ordered sulfamethoxazole 800 mg / trimethoprim 160 mg oral tablet (1 source) Dihydrofolate Reductase Inhibitor Antibacterial, Sulfonamide Antimicrobial Start: 024 Bactrim D.S. 800 mg-160 mg Tab 1 tab(s), Oral, BID, 20 tab(s), Refill(s) 0, [facility] #[id number], 175, cm, 11/29/23 20:31:00 EDT, Height/Length Dosing, 139, kg, 11/29/23 20:31:00 EDT, Weight Dosing Start Date: 11/29/23 Status: Ordered Symbicort 160/4.5 inhalation aerosol with adapter (17 sources) Start: 022 Symbicort 160/4.5 inhalation aerosol with adapter 2 puff(s), Inhalation, BID, 1 EA, Refill(s) 0, rinse mouth and throat after use, [facility] #[id number], 175, cm, 06/22/21 13:23:00 EST, Height/Length Dosing, 134.4, kg, 06/22/21 13:23:00 EST, Weight Dosing Start Date: 06/22/21 Status: Ordered tirzepatide (MOUNJARO) 2.5 mg/0.5 mL pen injector (8 sources) Start: End: tirzepatide (MOUNJARO) 2.5 mg/0.5 mL pen injector Indications: Type 2 diabetes mellitus without complication, without long-term current use of insulin (HCC) , Class 3 severe obesity with serious comorbidity and body mass index (BMI) of 40.0 to 44.9 in adult, unspecified obesity type (HCC) Inject 2.5 mg subcutaneously one time a week. 2 mL 0 09/28/2023 10/27/2023 Discontinued Start: 09-28-2023 End: 10-28-2023 tirzepatide (MOUNJARO) 2.5 m g/0.5 mL pen injector Indications: Type 2 diabetes mellitus without complication, without long-term current use of insulin (HCC) , Class 3 severe obesity with serious comorbidity and body mass index (BMI) of 40.0 to 44.9 in adult, unspecified obesity type (HCC) Inject 2.5 mg subcutaneously one time a week. 2 mL 0 09/28/2023 10/28/2023 Active Start: 05-27-2022 End: 07-22-2022 inject 2.5 mg by subcutaneous injection every week tirzepatide (MOUNJARO) 2.5 mg/0.5 mL pen injector Inject 2.5 mg subcutaneously one time a week. 2 mL 3 05/27/2022 07/22/2022 Discontinued Start: 05-27-2022 inject 2.5 mg by sub cutaneous injection every week tirzepatide (MOUNJARO) 2.5 mg/0.5 mL pen injector Inject 2.5 mg subcutaneously one time a week. 2 mL 3 05/27/2022 Active Start: 03-31-2022 End: 05-11-2022 inject 2.5 mg by subcutaneous injection every week tirzepatide (MOUNJARO) 2.5 mg/0.5 mL pen injector Inject 2.5 mg subcutaneously one time a week. 2 mL 3 03/31/2022 05/11/2022 Discontinued Start: 03-31-2022 inject 2.5 mg by sub cutaneous injection every week tirzepatide (MOUNJARO) 2.5 mg/0.5 mL pen injector Inject 2.5 mg subcutaneously one time a week. 2 mL 3 03/31/2022 Active Comment on above: Inject 2.5 mg subcut aneously one time a week. tirzepatide (MOUNJARO) 5 mg/0.5 mL pen injector (8 sources) Start: 10-27-2023 End: 01-25-2024 tirzepatide (MOUNJARO) 5 mg/0.5 mL pen injector Indications: Type 2 diabetes mellitus without complication, without long-term current use of insulin (HCC) , Class 3 severe obesity with serious comorbidity and body mass index (BMI) of 40.0 to 44.9 in adult, unspecified obesity type (HCC) Inject 5 mg subcutaneously one time a week. 2 mL 2 10/27/2023 01/25/2024 Active Start: 07-29-2023 tirzepatide (M OUNJARO) 5 mg/0.5 mL pen injector Indications: Type 2 diabetes mellitus without complication, without long-term current use of insulin (HCC) , Class 3 severe obesity with serious comorbidity and body mass index (BMI) of 40.0 to 44.9 in adult, unspecified obesity type (HCC) Inject 5 mg subcutaneously one time a week. Patient should start on July 29, 2023. 2 mL 2 07/29/2023 Active Start: 07-29-2023 End: 10-27-2023 tirzepatide (MOUNJARO) 5 mg/ 0.5 mL pen injector Indications: Type 2 diabetes mellitus without complication, without long-term current use of insulin (HCC) , Class 3 severe obesity with serious comorbidity and body mass index (BMI) of 40.0 to 44.9 in adult, unspecified obesity type (HCC) Inject 5 mg subcutaneously one time a week. Patient should start on July 29, 2023. 2 mL 2 07/29/2023 10/27/2023 Active Start: 07-22-2022 inject 5 mg by subcu taneous injection every week tirzepatide (MOUNJARO) 5 mg/0.5 mL pen injector Inject 5 mg subcutaneously one time a week. 2 mL 3 07/22/2022 Active Start: 05-11-2022 End: 05-27-2022 inject 5 mg by subcutaneous injection every week tirzepatide (MOUNJARO) 5 mg/0.5 mL pen injector Inject 5 mg subcutaneously one time a week. 2 mL 3 05/11/2022 05/27/2022 Discontinued Start: 05-11-2022 inject 5 mg by subcu taneous injection every week tirzepatide (MOUNJARO) 5 mg/0.5 mL pen injector Inject 5 mg subcutaneously one time a week. 2 mL 3 05/11/2022 Active Comment on above: Inject 5 mg subcutan eously one time a week. tiZANidine 4 mg oral tablet (20 sources) Central alpha-2 Adrenergic Agonist Start: 09-17-19 take 1 tablet by mouth three times daily tiZANidine 4 mg Tab 4 mg = 1 tab(s), Oral, TID, # 90 tab(s), Refills(s) 1, Pharmacy: [facility], 175, cm, 09/15/20 13:52:00 EDT, Height/Length Dosing, 128, kg, 09/15/20 13:52:00 EDT, Weight Dosing Start Date: 09/16/20 Status: Ordered traZODone hydrochloride 50 mg oral tablet (20 sources) Serotonin Reuptake Inhibitor Start: 10-17-19 20 take 1 tablet by mouth once daily at bedtime traZODONE 50 mg Tab 50 mg = 1 tab(s), Oral, Once a day (at bedtime), Refills(s) 0 Start Date: 10/17/19 Status: Ordered take 1 tablet by mouth every twe nty-four hours ubrogepant 100 mg oral tablet (11 sources) Start: 05-20-2023 take 1 tablet by mouth every two hours as needed Ubrelvy 100 mg oral tablet TAKE 1 TABLET BY MOUTH AT ONSET OF MIGRAINE. MAY REPEAT AFTER 2 HOURS NEEDED 30 DAYS Start Date: 05/20/23 Status: Ordered verapamil hydrochloride 120 mg extended release oral tablet (20 sources) Calcium Channel Joanna Start: 05-20-2023 take 1 tablet by mouth once daily verapamil 120 mg ER Tab TAKE 1 TABLET BY MOUTH EVERY DAY Start Date: 05/20/23 Status: Ordered Start: 02-11-2020 take 1 capsule by mo [facility] once daily verapamil 120 mg Cap-ER 120 mg = 1 cap(s), Oral, Daily, Refills(s) 0 Start Date: 02/11/20 Status: Ordered take 1 tablet by zenobia th once daily verapamil (CALAN, ISOPTIN) 120 mg tablet Take 120 mg by mouth once daily. 0 Active Verapamil HCl ER Active Comment on above: Take 120 mg by mouth once daily. Vitamin B Complex oral capsule (20 sources) Start: 07-07-2020 Vitamin B Complex oral capsule 1 tab(s), Oral, Daily, 90 cap(s), Refill(s) 0 Start Date: 07/07/20 Status: Ordered Vitamin D (20 sources) Start: 07-07-2020 Vitamin D Refills(s) 0 Start Date: 07/07/20 Status: Ordered Zofran ODT 4 mg Tab-Dis (20 sources) Start: 04-06-2023 take 1 tablet by mouth every eight hours as needed for nausea Zofran ODT 4 mg Tab-Dis 4 mg = 1 tab(s), Oral, q8hr, PRN Nausea/Vomiting, # 30 tab(s), Refills(s) 0, Pharmacy: [facility] #[id number], 173, cm, 04/06/23 13:57:00 EST, Height/Length Dosing, 134.1, kg, 04/06/23 13:57:00 EST, Weight Dosing Start Date: 04/06/23 Status: Ordered Start: 10-21-2022 take 1 tablet by zenobia th every eight hours Zofran ODT 4 mg Tab-Dis 4 mg = 1 tab(s), Oral, q8hr, # 10 tab(s), Refills(s) 0, Pharmacy: [facility]/pharmacy #[id number], 173, cm, 10/21/22 16:01:00 EDT, Height/Length Dosing, 139, kg, 10/21/22 16:01:00 EDT, Weight Dosing Start Date: 10/21/22 Status: Ordered Start: 05-23-2022 take 1 tablet by zenobia th every eight hours Zofran ODT 4 mg Tab-Dis 4 mg = 1 tab(s), Oral, q8hr, # 12 tab(s), Refills(s) 0, Pharmacy: [facility]/pharmacy #[id number], 175, cm, 05/23/22 6:53:00 EST, Height/Length Dosing, 139.2, kg, 05/23/22 6:53:00 EST, Weight Dosing Start Date: 05/23/22 Status: Ordered Start: 02-06-2021 take 1 tablet by zenobia th every eight hours Zofran ODT 4 mg Tab-Dis 4 mg = 1 tab(s), Oral, q8hr, # 10 tab(s), Refills(s) 0, Pharmacy: [facility] #[id number], 175, cm, 02/06/21 19:35:00 EDT, Height/Length Dosing, 136, kg, 02/06/21 19:35:00 EDT, Weight Dosing Start Date: 02/06/21 Status: Ordered Completed/Discontinued Medications Medication Drug Class(es) Dates Sig (Normalized) Sig (Original) acetaminophen 300 mg / butalbital 50 mg / caffeine 40 mg oral capsule (3 sources) Barbiturate, Central Nervous System Stimulant, Methylxanthine take 1 capsule by mouth every four hours take 1 capsule by mouth every fo ur hours Fioricet 50-300-40 MG 1 capsule as needed Orally every 4 hrs Not-Taking albuterol 0.83 mg/ml inhalation solution (20 sources) beta2-Adrenergic Agonist Start: 03-25-2021 take 30 doses by inhalation every four hours albuterol 0.083% Inh Padma 3 mL 0.083% - 3mL dosing units, Inhalation, q4hr Wheezing, 30 EA, Refill(s) 11, [facility] #[id number], 176, cm, 03/25/21 10:04:00 EST, Height/Length Dosing, 136.6, kg, 03/25/21 10:04:00 EST, Weight Dosing Start Date: 03/25/21 Status: Ordered Start: 03-25-2021 take 30 doses by inh alation every four hours albuterol 0.083% Inh Padma 3 mL 0.083% - 3mL dosing units, Inhalation, q4hr Wheezing, 30 EA, Refill(s) 11, [facility] #[id number], 176, cm, 03/25/21 10:04:00 EST, Height/Length Dosing, 136.6, kg, 03/25/21 10:04:00 EST, Weight Dosing Start Date: 03/25/21 Status: Ordered Start: 04-20-2017 Start: 04-20-2017 Albuterol Sulf ate (2.5 MG/3ML) 0.083% 1 dose as directed Inhalation every 6 hrs 2017 Active Start: 11-15-2006 albuterol 90 m cg/Actuation INHALATION Aero as necessary for asthma 0 11/15/2006 Active Comment on above: as necessary for ast hma ARIPiprazole 15 mg oral tabl et (3 sources) Atypical Antipsychotic take 1 tablet by mouth every twenty-four hours take 1 tablet by zenobia th every twenty-four hours Abilify 15 MG 1 tablet Orally Once a day for 30 Ordered to take 2 but only takes 1 at this time. Not-Taking [id number] 0.3 ml EPINEPHrine 1 mg/ml auto-injector (9 sources) alpha-Adrenergic Agonist, beta-Adrenergic Agonist, Catecholamine Start: 07-11-2019 EPINEPHrine (EPIPEN) 0.3 mg/0.3 mL auto-injector Indications: Severe persistent asthma without complication , Dyspnea, unspecified type , Obesity, unspecified classification, unspecified obesity type, unspecified whether serious comorbidity present , Allergic rhinitis due to pollen, unspecified seasonality , Gastroesophageal reflux disease, esophagitis presence not specified , Sleep apnea, unspecified type Use as directed. 1 Each 0 07/11/2019 Active Comment on above: Use as directed. fluconazole 150 mg oral tablet (6 sources) Azole Antifungal Start: 07-01-2023 take 1 tablet by mouth once Diflucan 150 mg Tab 150 mg = 1 tab(s), Oral, Once, 1 tab when antibiotic starts, and 1 tab at the completion of the antibiotic, # 2 tab(s), Refills(s) 1, Pharmacy: [facility] #[id number], 173, cm, 07/01/23 12:09:00 EST, Height/Length Dosing, 137, kg, 07/01/23 12:09:00 EST, Weight Dosing Start Date: 07/01/23 Status: Ordered Glucometer n/a (3 sources) Start: 06-15-2018 Start: 06-15-2018 Glucometer n/a as directed as directed as directed for as directed Jun, Not-Taking hyoscyamine sulfate 0.125 mg oral tablet (3 sources) Start: 07-10-2021 take 1 tablet by mouth every six hours Ketorolac (2 sources) Nonsteroidal Anti-inflammatory Drug, Cyclooxygenase Inhibitor Start: 09-07-2014 Toradol per 15 mg September, 60 mg mesalamine 500 mg extended release oral capsule (12 sources) Aminosalicylate Start: 02-24-2018 take 1 capsule by mouth four times daily Mesalamine (PENTASA) 500 mg CR capsule Take 1 capsule by mouth four times daily. 0 02/24/2018 Active take 4 capsules by m outh every twelve hours Pentasa 500 MG 4 capsules Orally BID for 30 day(s) Not-Taking Comment on above: Take 1 capsule by mo uth four times daily. Nebulizer and supplies (20 sources) Start: 02-26-2019 Nebulizer and supplies Nebulizer and supplies, See Instructions, 1 EA, 0, Pt requires nebulizer and tubing/supplies DX: J45.909, Supply Start Date: 02/26/19 Status: Ordered Nebulizer Machine (20 sources) Start: 02-11-2022 Nebulizer Machine Nebulizer Machine, See Instructions, 1 EA, 0, Nebulizer Machine, Supply Start Date: 02/11/22 Status: Ordered Start: 07-02-2021 Nebulizer Mach ine Nebulizer Machine, See Instructions, 1 EA, 0, Nebulizer Machine, [facility] #[id number], Supply, 175, cm, 07/02/21 10:47:00 EST, Height/Length Dosing, 133, kg, 07/02/21 10:47:00 EST, Weight Dosing Start Date: 07/02/21 Status: Ordered Nebulizer Tubing and Mouthpiece Kit (20 sources) Start: 02-11-2022 Nebulizer Tubi ng and Mouthpiece Kit Nebulizer Tubing and Mouthpiece Kit, See Instructions, 1 kit(s), 0, Nebulizer Tubing and Mouthpiece Kit, Supply Start Date: 02/11/22 Status: Ordered Start: 07-02-2021 Nebulizer Tubi ng and Mouthpiece Kit Nebulizer Tubing and Mouthpiece Kit, See Instructions, 1 kit(s), 0, Nebulizer Tubing and Mouthpiece Kit, [facility] #[id number], Supply, 175, cm, 07/02/21 10:47:00 EST, Height/Length Dosing, 133, kg, 07/02/21 10:47:00 EST, Weight Dosing Start Date: 07/02/21 Status: Ordered predniSONE 20 mg oral tablet (7 sources) Start: 02-11-2022 predniSONE 20 mg Tab 20 mg = 1 tab(s), Oral, As Directed, Take three tabs by mouth for three days, then two tabs for three days, then one tab for three days, # 18 tab(s), Refills(s) 0, [facility][id number], 175, cm, 12/31/21 19:57:00 EDT, Height/Length Do... Start Date: 02/11/22 Status: Ordered Start: 07-02-2021 predniSONE 20 mg Tab 20 mg = 1 tab(s), Oral, As Directed, Take three tabs by mouth for three days, then two tabs for three days, then one tab for three days, # 18 tab(s), Refills(s) 0, Pharmacy: [facility] #[id number], 175, cm, 07/02/21 10:47:00 EST, Height/Length Do... Start Date: 07/02/21 Status: Ordered raNITIdine (3 sources) Histamine-2 Receptor Antagonist Zantac 300 1 PO BID Orally Twice a day for 30 days Not-Taking topiramate 100 mg oral table t (3 sources) take 1 tablet by mouth every twe lve hours Problems Active Problems Problem Classification Problem Date Documented Da te Episodic/Chronic Abdominal pain (20 sources) Flank pain; Translations: [Generalized abdominal pain] Onset: 9 Resolved: 9 09-01-2020 Episodic Administrative/social admission (4 sources) Patient encounter status; Translations: [Persons encountering health services in other specified circumstances] Onset: 2 Episodic Anxiety disorders (20 sources) Anxiety; Translations: [Mixed anxiety and depressive disorder] 04-06-2020 Chronic Anxiety disorders (11 sources) Anxiety disorder due to a general medical condition; Translations: [Anxiety disorder due to known physiological condition] 07-09-2008 Episodic Asthma (20 sources) Unspecified asthma, uncomplicated; Translations: [Exacerbation of asthma] Onset: 8 07-02-2021 Chronic Cardiac dysrhythmias (17 sources) Bradycardia 02-27-2019 Episodic Chronic obstructive pulmonary disease and bronchiectasis (17 sources) Acute exacerbation of chronic obstructive airways disease 02-09-2021 Chronic Coagulation and hemorrhagic disorders (6 sources) Factor V Leiden mutation; Translations: [Primary hypercoagulable state] Chronic Conditions associated with dizziness or vertigo (18 sources) Dizziness; Translations: [Dizziness and giddiness] Onset: 2 02-09-2021 Episodic Deficiency and other anemia (17 sources) Anemia 10-12-2018 Episodic Deficiency and other anemia (1 source) Deficiency and other anemia; Translations: [D64.9 - Anemia, unspecified] Onset: 2 Diabetes mellitus without complication (20 sources) Type 2 diabetes mellitus without complication; Translations: [Type 2 diabetes mellitus without complications] Onset: 2 Chronic Diabetes mellitus without complication (20 sources) Impaired glucose tolerance; Translations: [Prediabetes] Onset: 3 04-16-2020 Episodic Disorders of lipid metabolism (20 sources) Hyperlipidemia; Translations: [Other and unspecified hyperlipidemia] 04-16-2020 Chronic Endometriosis (20 sources) Endometriosis (clinical); Translations: [Endometriosis, unspecified] Resolved: 9 07-20-2013 Chronic Esophageal disorders (20 sources) Gastroesophageal reflux disease; Translations: [Gastro-esophageal reflux disease without esophagitis] 02-27-2019 Chronic Gastrointestinal hemorrhage (20 sources) Rectal hemorrhage; Translations: [Gastrointestinal hemorrhage] Onset: 9 02-09-2021 Episodic Headache; including migraine (20 sources) Migraine; Translations: [Migraine without aura, not refractory ] 10-25-2013 Chronic Headache; including migraine (1 source) Headache; Translations: [Headache, unspecified] Onset: 3 Episodic Lymphadenitis (11 sources) Nonspecific mesenteric adenitis; Translations: [Nonspecific mesenteric lymphadenitis] Onset: 2 Episodic Malaise and fatigue (17 sources) Fatigue 02-16-2019 Episodic Menstrual disorders (20 sources) Amenorrhea; Translations: [Dysmenorrhea] Onset: 4 10-12-2018 Chronic Mood disorders (20 sources) Bipolar disorder, unspecified; Translations: [Bipolar affective disorder, currently depressed, moderate] Onset: 8 05-25-2019 Chronic Mycoses (16 sources) Candidiasis of skin and nail; Translations: [Candidal paronychia ] Onset: 8 Episodic Nausea and vomiting (16 sources) Nausea with vomiting, unspecified; Translations: [Nausea] Onset: 8 Episodic Noninfectious gastroenteritis (2 sources) Noninfective gastroenteritis and colitis, unspecified; Translations: [Noninfectious enteritis] Onset: 8 Episodic Nonmalignant breast conditions (7 sources) Discharge from nipple; Translations: [Nipple discharge] Onset: 4 Episodic Nonspecific chest pain (17 sources) Chest pain 09-15-2020 Episodic Osteoarthritis (11 sources) Arthritis; Translations: [Unspecified osteoarthritis, unspecified site] 04-20-2016 Chronic Other aftercare (1 source) Long-term current use of oral hypoglycemic medication; Translations: [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) use of oral hypoglycemic drugs] Episodic Other circulatory disease (17 sources) Bleeds profusely 08-06-2020 Episodic Other circulatory disease (17 sources) Easy bruising 08-06-2020 Episodic Other complications of ; puerperium affecting management of mother (9 sources) Disorder of 05-20-2023 Episodic Other connective tissue disease (20 sources) Fibromyositis 07-20-2013 Episodic Other connective tissue disease (20 sources) Fibromyalgia; Translations: [Fibromyalgia] Onset: 6 02-27-2019 Episodic Other endocrine disorders (20 sources) Polycystic ovaries; Translations: [Polycystic ovarian syndrome] 07-20-2013 Chronic Other endocrine disorders (20 sources) Polycystic ovary syndrome; Translations: [Polycystic ovarian syndrome] Onset: 2 02-16-2019 Chronic Other endocrine disorders (5 sources) Polycystic ovary; Translations: [Polycystic ovarian syndrome] 07-09-2008 Chronic Other gastrointestinal disorders (16 sources) Irritable bowel syndrome; Translations: [Irritable bowel syndrome without diarrhea] Resolved: 9 04-20-2016 Chronic Other gastrointestinal disorders (5 sources) History of bariatric surgical procedure; Translations: [Bariatric surgery status] Episodic Other gastrointestinal disorders (2 sources) Diarrhea; Translations: [Diarrhea, unspecified] Onset: 3 Episodic Other gastrointestinal disorders (1 source) Diarrhea, unspecified Episodic Other inflammatory condition of skin (17 sources) Intertrigo 06-23-2021 Episodic Other lower respiratory disease (17 sources) Dyspnea on exertion 09-15-2020 Episodic Other lower respiratory disease (20 sources) Lung mass 02-27-2019 Episodic Other lower respiratory disease (2 sources) Dyspnea; Translations: [Dyspnea, unspecified] Onset: 2 Episodic Other nervous system disorders (17 sources) 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 Other nervous system disorders (11 sources) Chronic pain syndrome; Translations: [Chronic pain syndrome] Onset: 6 04-20-2016 Chronic Other nervous system disorders (3 sources) Chronic pain; Translations: [Other chronic pain] Chronic Other non-traumatic joint disorders (17 sources) Joint pain 02-11-2020 Episodic Other nutritional; endocrine; and metabolic disorders (20 sources) Body mass index 40+ - severely obese; Translations: [Body mass index (BMI) 40.0-44.9, adult] Onset: 2 03-19-2020 Chronic Other nutritional; endocrine; and metabolic disorders (20 sources) Morbid obesity; Translations: [Morbid (severe) obesity due to excess calories] Onset: 2 Resolved: 9 04-11-2019 Chronic Other nutritional; endocrine; and metabolic disorders (20 sources) Severe obesity; Translations: [Morbid (severe) obesity due to excess calories] Onset: 9 08-06-2020 Chronic Other nutritional; endocrine; and metabolic disorders (9 sources) Obesity; Translations: [Obesity, unspecified] Onset: 9 Chronic Other nutritional; endocrine; and metabolic disorders (1 source) Psychosomatic factor in physical condition; Translations: [Morbid (severe) obesity due to excess calories] Chronic Other nutritional; endocrine; and metabolic disorders (1 source) Morbid (severe) obesity due to excess calories; Translations: [Class 3 severe obesity with serious comorbidity and body mass index (BMI) of 40.0 to 44.9 in adult, unspecified obesity type (HCC)] Onset: 4 Chronic Other nutritional; endocrine; and metabolic disorders (1 source) Body mass index (BMI) 40.0-44.9, adult; Translations: [Class 3 severe obesity with serious comorbidity and body mass index (BMI) of 40.0 to 44.9 in adult, unspecified obesity type (HCC)] Onset: 4 Chronic Other nutritional; endocrine; and metabolic disorders (17 sources) Weight loss 09-01-2020 Episodic Other skin disorders (17 sources) Swelling of hand 02-11-2020 Episodic Other skin disorders (3 sources) Hirsutism; Translations: [Hirsutism] Episodic Other upper respiratory disease (1 source) Allergic rhinitis due to pollen; Translations: [Allergic rhinitis due to pollen] Chronic Other upper respiratory infections (20 sources) Bacterial sinusitis; Translations: [Chronic sinusitis] Onset: 4 07-02-2021 Chronic Other upper respiratory infections (1 source) Acute pharyngitis; Translations: [Acute pharyngitis, unspecified] Onset: 4 Episodic Regional enteritis and ulcerative colitis (20 sources) Crohn's disease, unspecified, without complications; Translations: [Crohn's disease] Onset: 9 07-20-2013 Chronic Rehabilitation care; fitting of prostheses; and adjustment of devices (11 sources) Patient encounter status; Translations: [Encounter for fitting and adjustment of other specified devices] Onset: 0 01-26-2010 Chronic Residual codes; unclassified (1 source) Sleep apnea; Translations: [Sleep apnea, unspecified] Chronic Residual codes; unclassified (14 sources) Obstructive sleep apnea syndrome; Translations: [Obstructive sleep apnea (adult) (pediatric)] Onset: 2 Chronic Residual codes; unclassified (6 sources) Obstructive sleep apnea of adult; Translations: [Obstructive sleep apnea (adult)(pediatric)] Chronic Residual codes; unclassified (1 source) Dependence on enabling machine or device; Translations: [Dependence on other enabling machines and devices] Onset: 4 Chronic Residual codes; unclassified (17 sources) Chronic pain 02-16-2019 Episodic Screening and history of mental health and substance abuse codes (11 sources) Ex-smoker; Translations: [Personal history of nicotine dependence] 04-20-2016 Episodic Spondylosis; intervertebral disc disorders; other back problems (11 sources) Prolapsed lumbar intervertebral disc; Translations: [Other intervertebral disc displacement, lumbar region] Onset: 6 04-20-2016 Chronic Spondylosis; intervertebral disc disorders; other back problems (20 sources) Low back pain; Translations: [Spinal stenosis] 09-26-2019 Episodic Substance-related disorders (1 source) Tobacco user; Translations: [Nicotine dependence, unspecified, uncomplicated] Chronic Unclassified (17 sources) History of SARS-CoV-2 06-22-2021 Unclassified (20 sources) Non-smoker 09-15-2020 Unclassified (20 sources) Patient encounter status 07-23-2021 Unclassified (1 source) R07.9 - Chest pain, unspecified; Translations: [R07.9 - Chest pain, unspecified] Onset: 2 Urinary tract infections (17 sources) Bacterial urinary infection 06-01-2019 Episodic Viral infection (3 sources) Disease caused by 2019-nCoV 05-13-2022 Past or Other Problems Problem Classification Problem Date Documented Da te Episodic/Chronic Fluid and electrolyte disorders (1 source) Dehydration; Translations: [DEHYDRATION] Onset: 06-07-2017 Episodic Genitourinary symptoms and ill-defined conditions (17 sources) Urine drug levels - finding Resolved: 10-12-2018 12-04-2018 Episodic Comment on above: Positive for [place] mines in ER 02/2015; patient reported she was unaware of why tox screen was positive Positive for [place] mines in ER 02/2015; patient reported she was unaware of why tox screen was positive Other circulatory disease (1 source) Elevated blood-pressure reading, without diagnosis of hypertension; Translations: [ELEVATED BP READING W/O DX HTN] Onset: 06-07-2017 Episodic Other connective tissue disease (1 source) Fibromyalgia; Translations: [FIBROMYALGIA] Onset: 06-07-2017 Episodic Other connective tissue disease (20 sources) Muscle pain; Translations: [Myalgia and myositis] Onset: 01-31-2009 08-12-2020 Episodic Other connective tissue disease (19 sources) Spasm; Translations: [Other muscle spasm] Onset: 09-27-2008 Resolved: 01-31-2009 09-26-2019 Episodic Other connective tissue disease (2 sources) Inflammatory neuropathy ; Translations: [Neuralgia and neuritis, unspecified] Onset: 01-26-2010 Resolved: 11-06-2015 11-06-2015 Episodic Other screening for suspected conditions (not mental disorders or infectious disease) (2 sources) Coag./bleeding tests abnormal; Translations: [Abnormal coagulation profile] Onset: 07-31-2008 Resolved: 01-31-2009 01-31-2009 Episodic Sprains and strains (11 sources) Sprain of ankle; Translations: [Sprain of unspecified ligament of unspecified ankle, initial encounter] Onset: 01-26-2010 01-26-2010 Episodic Unclassified (20 sources) Bipolar (qualifier value) 10-12-2009 Unclassified (13 sources) crohns( Confirmed ) 12-13-2009 Unclassified (17 sources) crohns 12-13-2009 Results Test Name Value Interpretation Reference Range Facility ED Clinical Summaryon 2023 ED Clinical Summary ED Clinical Summary [place] [address] ED Clinical Summary Person Information Name: ALMA DELIA PEARL [facility] Age: 38 Years : 1985 Sex: Female Language: Cypriot PCP: Irasema Love Marital Status: Phone: [phone] MRN: Visit Id: Visit Reason: Breast problem; BREAST ABCESS Speciality: Acuity: 4 Enc Type: Emergency Med Service: Emergency Arrival: 11/29/2023 20:00:57 Discharge: 11/29/2023 20:59:52 LOS: 000 00:59 Checkin: 11/29/2023 20:00:57 Checkout: 11/29/2023 20:59:52 Dispo Type: Home (Routine DC) EVENTS: Event Name Event Status Request Date/Time Start Date/Time Complete Date/Time Arrive Complete 11/29/2023 20:00:57 11/29/2023 20:00:57 11/29/2023 20:00:57 Document Home Meds Request 11/29/2023 20:00:57 Triage Complete 11/29/2023 20:00:57 11/29/2023 20:31:09 11/29/2023 20:31:09 Bed Assign Complete 11/29/2023 20:31:17 11/29/2023 20:31:17 11/29/2023 20:31:17 Dr Exam Complete 11/29/2023 20:31:17 11/29/2023 20:31:37 11/29/2023 20:31:37 RN Exam Complete 11/29/2023 20:31:17 11/29/2023 20:58:52 11/29/2023 20:58:52 Registration Complete 11/29/2023 20:31:37 11/29/2023 20:35:36 11/29/2023 20:35:36 Reg Complete Request 11/29/2023 20:35:36 Reg Bed Request Complete 11/29/2023 20:35:36 11/29/2023 20:35:36 11/29/2023 20:35:36 Meds Admin Complete 11/29/2023 20:39:59 11/29/2023 20:55:28 Discharge Complete 11/29/2023 20:42:00 11/29/2023 20:59:57 11/29/2023 20:59:57 Transfer Complete 11/29/2023 20:59:57 11/29/2023 20:59:57 11/29/2023 20:59:57 ADDRESS: [address] [place] [id number] PHYS DOC NOTES: MEDICAL INFORMATION: Prescriptions Given: New Medications [facility] #[id number], [address] [place], [place] [id number], [phone] cephalexin (Keflex 500 mg Cap) 1 Capsules By Mouth 3 times a day for 10 Days. Refills: 0. naproxen (Naprosyn 500 mg Tab) 1 Tablets By Mouth 2 times a day as needed for pain. Refills: 0. sulfamethoxazole-tri methoprim (Bactrim D.S. 800 mg-160 mg Tab) 1 Tablets By Mouth 2 times a day. Refills: 0. Medications to Continue with No Changes Other Medications acetaminophen-hydroc odone ([place] 325 mg-5 mg oral tablet) 1 Tablets By Mouth every 6 hours as needed for pain for 2 Days. Refills: 0. albuterol (Albuterol (Eqv-ProAir HFA) 90 mcg/inh inhalation aerosol) 2 Puffs Inhalation every 6 hours. Refills: 4. albuterol (albuterol 0.083% Inh Padma 3 mL) 0.083% - 3mL dosing units Inhalation every 4 hours as needed Wheezing. Refills: 11. brexpiprazole (Rexulti 1 mg oral tablet) clindamycin (clindamycin 300 mg oral cap) 1 Capsules By Mouth every 6 hours for 7 Days. Refills: 0. famotidine (Pepcid 20 mg Tab) 1 Tablets By Mouth every day. Refills: 0. fluconazole (Diflucan 150 mg Tab) 1 Tablets By Mouth Once. 1 tab when antibiotic starts, and 1 tab at the completion of the antibiotic. Refills: 1. loperamide (Imodium A-D EZ Chews 2 mg oral tablet, chewable) 1 Tablets Chewed every 4 hours as needed Diarrhea. Refills: 0. Misc Prescription (Nebulizer Machine) Nebulizer Machine. Refills: 0. Misc Prescription (Nebulizer Machine) Nebulizer Machine. Refills: 0. Misc Prescription (Nebulizer Tubing and Mouthpiece Kit) Nebulizer Tubing and Mouthpiece Kit. Refills: 0. ondansetron (Zofran 4 mg Tab) 1 Tablets By Mouth every 8 hours as needed Nausea/Vomiting. Refills: 0. ondansetron (Zofran ODT 4 mg Tab-Dis) 1 Tablets By Mouth every 8 hours as needed Nausea/Vomiting. Refills: 0. promethazine (Phenergan 12.5 mg Supp) 1 Suppositories By rectum every 4 hours as needed Nausea/Vomiting. Refills: 0. promethazine (Phenergan 25 mg Supp) 1 Suppositories By rectum every 6 hours as needed Nausea/Vomiting. Refills: 0. PATIENT EDUCATION INFORMATION: Instructions: Cellulitis, Adult, [id number] Follow up: With: Address: When: Irasema Zacarias [address] [place] [address] A [place] [id number] [facility] ([employer] In 3 days 12/02/2023 Comments: Stop the clindamycin and start the Bactrim and Keflex. He can use naproxen every 12 hours as needed for pain in addition to pain medicine impression prescribed last night. Please follow-up with your primary care doctor for further evaluation management. Please return to the ED for any new or worsening symptoms. DIAGNOSIS: Cellulitis of left breast Normal [facility] ED Note-Physicianon 11-29-19 ED Note-Physician ED Note-Physician Basic Information Time Seen: Celena Dias DO 11/29/2023 20:31 Chief Complaint pt. c/o L breast abscess, started clindamycin and norco yesterday, states redness has spread since last night. History of Present Illness Patient is a 38-year-old female presenting to the ED for evaluation of left breast redness. Patient was seen in the ED last night was found to have a left breast cellulitis, needle aspiration with no significant drainage able to be removed. Patient states she has been taking the clindamycin as prescribed however has had increasing redness and increasing pain. Did take pain medication prior to arrival. Patient denies any fevers, chest pain, shortness of breath. Denies any other complaints. Review of Systems A 10 point review of systems is negative except as noted above. Medical and Surgical History: Reviewed and noted Social history: Lives at home Tobacco: Denies Physical Exam Vitals & Measurements T: 36.6 ?C(Oral) HR: 92(Peripheral) RR: 18 BP: 125/78 SpO2: 97% HT: 175 cm WT: 139 kg BMI: 45.39 General: Well developed, non toxic appearing, no acute distress HEENT: Head atraumatic, Mucosa moist, hearing grossly normal Neck: No JVD, tracheal deviation Cardiac: Regular rate, rhythm, no murmurs, or gallops, 2+ radial pulses Respiratory: Lungs clear to auscultation B/L, normal respiratory effort Abdomen: Soft non tender, no rebound or guarding, no peritoneal signs Extremities: No edema noted in the LE B/L, no tenderness to palpation Neurologic: Alert and oriented, speech clear Skin: There is erythema noted of the left breast there is a firm indurated area with no fluctuance noted on examination on the medial aspect of the left breast Psych: Appropriate mood and behavior Medical Decision Making MEDICAL DECISION MAKING Number and Complexity of Problems Differential Diagnosis: [] [facility] Data External documents reviewed: [] My EKG interpretation: [] My CT interpretation: [] My X-ray interpretation: [] My Ultrasound interpretation: [] Decision rules/scores evaluated: [] Discussed with: [] Treatment and Disposition ED Course: Patient is a 38-year-old female presenting to the ED for evaluation of left breast cellulitis. Patient nontoxic in, no acute distress. Patient has had increasing of the redness since yesterday. Patient has no drainable abscess on examination. Discussed with patient we will switch her antibiotics it will take several days for the redness to improve. Patient discharged home is to follow-up with her primary care doctor in the next 2 to 3 days. She is to return to ED for any new or worsening symptoms. Shared decision making: [] Code status: [] Assessment/Plan Cellulitis of left breast (N61.0: Mastitis without abscess) Orders: cephalexin, 500 mg = 1 cap(s), Oral, TID, X 10 day(s), # 30 cap(s), Refills(s) 0, Pharmacy: [facility] #[id number], 175, cm, 11/29/23 20:31:00 EDT, Height/Length Dosing, 139, kg, 11/29/23 20:31:00 EDT, Weight Dosing cephalexin, 500 mg = 1 cap(s), Cap, Oral, Once, Stop date 11/29/23 20:39:00 EDT, STAT, Start date 11/29/23 20:39:00 EDT, 11/29/23 20:39:00 EDT naproxen, 500 mg = 2 tab(s), Tab, Oral, Once, Stop date 11/29/23 20:39:00 EDT, STAT, Start date 11/29/23 20:39:00 EDT, 11/29/23 20:39:00 EDT naproxen, 500 mg = 1 tab(s), Oral, BID, PRN for pain, # 20 tab(s), Refills(s) 0, Pharmacy: [facility] #[id number], 175, cm, 11/29/23 20:31:00 EDT, Height/Length Dosing, 139, kg, 11/29/23 20:31:00 EDT, Weight Dosing sulfamethoxazole-tri methoprim, 1 tab(s), Oral, BID, 20 tab(s), Refill(s) [id number], 175, cm, 11/29/23 20:31:00 EDT, Height/Length Dosing, 139, kg, 11/29/23 20:31:00 EDT, Weight Dosing sulfamethoxazole-tri methoprim, 1 tab(s), Tab, Oral, Once, Stop date 11/29/23 20:39:00 EDT, STAT, Start date 11/29/23 20:39:00 EDT Disposition Plan Discharge Prescription List Prescriptions Bactrim D.S. 800 mg-160 mg Tab, 1 tab(s), Oral, BID Keflex 500 mg Cap, 500 mg= 1 cap(s), Oral, TID Naprosyn 500 mg Tab, 500 mg= 1 tab(s), Oral, BID, PRN Follow-up With When Contact Information Irasema Quirozmarley In 3 days 12/02/2023 EDT [address] [facility], [address] [place] [id number] Business (1) Additional Instructions: Stop the clindamycin and start the Bactrim and Keflex. He can use naproxen every 12 hours as needed for pain in addition to pain medicine impression prescribed last night. Please follow-up with your primary care doctor for further evaluation management. Please return to the ED for any new or worsening symptoms. 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 Normal [facility] Comment on above: Result Comment: Elec tronically Signed By: Celena Dias DO\.br\Date and Time Signed: 11/29/23 20:44 EDT ED Note-Physician ED Note-Physician Basic Information Time Seen: Archie GUERRERO, Luis Freeman 11/28/2023 19:34 Chief Complaint Redness and swelling on L breast x 3 days. States painful to touch. Denies . History of Present Illness A 38-year-old female reports to the emergency department with chief complaint of swelling on the left breast. Reports that the inner upper left breast area. Reports going on for 3 days. Reports history of at bedtime. States that she is currently on Flagyl due to a history of a BV infection. States is painful to touch. Denies any breast-feeding. Reports history of fibromyalgia. She states that she has been trying again with her general surgeon, but has not recently. Reports allergies to medications listed above. Denies any chest pain or shortness of breath. Denies any fevers or chills. Review of Systems No other aggravating or relieving factors no other associated symptoms no other prior treatments or complaints. Family: Reviewed and noncontributory Social: lives at home Review of systems negative unless otherwise specified in the HPI. Physical Exam Vitals & Measurements T: 36.6 ?C(Oral) HR: 82(Peripheral) RR: 18 BP: 115/68 SpO2: 98% HT: 175 cm WT: 139 kg BMI: 45.39 General: The patient appears well and in no apparent distress. Patient is resting comfortably in chair. Afebrile Skin: Warm, dry, no pallor noted. There is area of erythema on the left upper breast, that is approximately 6 cm in diameter. There is a area of central fluctuance and induration. No discharge seen. Head: Normocephalic, atraumatic Neck: No JVD Eye: PERRLA, EOMI ENT: Moist mucus membranes Cardiovascular: Regular rate normal peripheral perfusion Respiratory: No respiratory distress no accessory muscle use no obvious audible wheezing Chest Wall: no deformity Musculoskeletal: normal ROM, no deformity, no swelling GI: No obvious distention soft nontender nondistended no guarding rebounding or rigidity Neurological: A&O moves all extremities equal strength and symmetry Psychiatric: Cooperative and appropriate Medical Decision Making MEDICAL DECISION MAKING Number and Complexity of Problems Differential Diagnosis: [] [facility] Data External documents reviewed: [] My EKG interpretation: [] My CT interpretation: [] My X-ray interpretation: [] My Ultrasound interpretation: [] Decision rules/scores evaluated: [] Discussed with: [] Treatment and Disposition ED Course: 38-year-old female reports emergency department chief complaint of a left breast abscess and infection. Reports that she does have a history of at bedtime, but this is different. Reports has not seen it come to ahead yet. Exam is consistent with a small breast abscess, with surrounding cellulitis. Due to her concerns, I did perform a needle aspiration, in order to help remove some discharge and give the patient some relief. I was able to get of very minimal amount of bloody purulent debris on this. Patient did feel some mild relief. Due to concerns, will start patient on antibiotics. Started on clindamycin. Patient also given Percocet for breakthrough pain. I discussed ultimately may need to follow-up with general surgery for further evaluation of this breast abscess. Patient understanding. Discussed return precautions. Follow-up with your primary care provider in 3 to 5 days. If symptoms worsen, do not improve, or new symptoms arise please report back to emergency department for further evaluation. The patient was understanding and agreeable to plan moving forward. Shared decision making: [] Code status: [] Assessment/Plan Breast abscess (N61.1: Abscess of the breast and nipple) Orders: acetaminophen-hydroc odone, 1 EA, Tab, Oral, Once, Stop date 11/28/23 20:34:00 EDT, STAT, Start date 11/28/23 20:34:00 EDT acetaminophen-hydroc odone, 1 tab(s), Oral, q6hr for pain for 2 day(s), 8 tab(s), Refill(s) 0, [facility] #[id number], 175, cm, 11/28/23 19:12:00 EDT, Height/Length Dosing, 139, kg, 11/28/23 19:12:00 EDT, Weight Dosing clindamycin, 300 mg = 1 cap(s), Oral, q6hr, X 7 day(s), # 28 cap(s), Refills(s) 0, Pharmacy: [facility] #[id number], 175, cm, 11/28/23 19:12:00 EDT, Height/Length Dosing, 139, kg, 11/28/23 19:12:00 EDT, Weight Dosing clindamycin, 300 mg = 2 cap(s), Cap, Oral, Once, Stop date 11/28/23 20:34:00 EDT, STAT, Start date 11/28/23 20:34:00 EDT, 11/28/23 20:34:00 EDT Medications Administered Given clindamycin 150 mg Cap, 300 mg, Oral TO GO acetaminophen-hydroc odone 325 mg - 5 mg, 1 EA, Oral Disposition Plan Patient Discharge Condition Stable Discharge Disposition To home Discharge Prescription List Prescriptions clindamycin 300 mg oral cap, 300 mg= 1 cap(s), Oral, q6hr [place] 325 mg-5 mg oral tablet, 1 tab(s), Oral, q6hr, PRN Follow-up With When Contact Information Daron Hernandez In 3 days 12/01/2023 EDT Additional Instructions: Call for diagnosis based follow up [facility] In (more content not included)... Normal [facility] Comment on above: Result Comment: Elec tronically Signed By: Luis Almanza PA-C\.br\Date and Time Signed: 11/29/23 00:34 EDT\.br\Electronically Co-Signed By: Celena Dias DO\.br\Date and Time Co-Signed: 11/29/23 01:44 EDT ED Patient Summaryon 024 ED Patient Summary ED Patient Summary [place] [id number] Patient Discharge Instructions Person Information Name: ALMA DELIA PEARL Age: 38 Years Arrival Date: 11/29/2023 20:00:57 Discharge Diagnosis: Cellulitis of left breast Primary Care Physician: Irasema Love Provider Information Primary Provider: Celena Dias DO Advanced Assistant Surveyor:None The exam and treatment you received in the Emergency Department were for an urgent problem and are not intended as complete care. It is important that you follow up with a doctor, nurse practitioner, or physician?s staff physical therapy assistant for ongoing care. If your symptoms become worse or you do not improve as expected and you are unable to reach your usual health care provider, you should return to the Emergency Department. We are available 24 hours a day. ALMA DELIA PEARL has been given the following list of patient education materials, prescriptions and follow-up instructions: Follow-up Instructions: With: Address: When: Irasema Vaughn, [place] [address] [place] [address] Business (1) In 3 days 12/02/2023 Comments: Stop the clindamycin and start the Bactrim and Keflex. He can use naproxen every 12 hours as needed for pain in addition to pain medicine impression prescribed last night. Please follow-up with your primary care doctor for further evaluation management. Please return to the ED for any new or worsening symptoms. In the event that this physician does not participate in your insurance network, please consult with your insurance company to find a nearby participating provider. Patient Education Materials: Cellulitis, Adult, [id number] A MESSAGE TO ALL PATIENTS REGARDING OPIOIDS PRESCRIPTION OPIOIDS: WHAT YOU NEED TO KNOW Prescription opioids can be used to help relieve myrjbtgn-[id number]-[id number] pain and are often prescribed following a surgery or injury, or for certain health conditions. These medications can be an important part of the treatment but also come with serious risks. It is important to work with your healthcare provider to make sure you are getting the safest, most effective care. WHAT ARE THE RISKS AND SIDE EFFECTS OF OPIOID USE? Prescription opioids carry serious risks of addiction and overdose, especially with prolonged use. An opioid overdose, often marked by slowed breathing, can cause sudden . The use of prescription opioids can have a number of side effects as well, even when taken as directed: ? Tolerance?meaning you might need to take more of the medication for the same pain relief ? Physical dependence?meaning you have symptoms of withdrawal when a medication is stopped ? Increased sensitivity to pain ? Constipation ? Nausea, vomiting, and dry mouth ? Sleepiness and dizziness ? Confusion ? Depression ? Low levels of testosterone that can result in lower sex drive, energy, and strength ? Itching and sweating RISKS ARE GREATER WITH: ? History of drug misuse, substance use disorder, or overdose ? Mental health conditions (such as depression or anxiety) ? Sleep apnea ? Older age (65 years and older) ? Avoid alcohol while taking prescription opioids. Also, unless specifically advised by your health care provider, medications to avoid include: ? Benzodiazepines (such as Xanax or Valium) ? Muscle relaxants (such as Soma or Flexeril) ? Hypnotics (such as Ambien or Lunesta) ? Other prescription opioids KNOW YOUR OPTIONS Talk to your health care provider about ways to manage your pain that don?t involve prescription opioids. Some of these options may actually work better and have fewer risks and side effects. Options may include: ? Pain relievers such as acetaminophen, ibuprofen, and naproxen ? Some medication that are also used for depression or seizures ? Physical therapy and exercise ? Cognitive behavioral therapy, a psychological, goal-directed approach, in which patients learn how to modify physical, behavioral, and emotional triggers of pain and stress. IF YOU ARE PRESCRIBED OPIOIDS FOR PAIN: ? Never take opioids in greater amounts or more often than prescribed. ? Follow up with your primary health care provider. o Work together to create a plan on how to manage your pain. o Talk about ways to help manage your pain that don?t involve prescription opioids. o Talk about any and all concerns and side effects. ? Help prevent misuse and abuse o Never sell or share prescription opioids. o Never use another person?s prescription opioids. ? Store prescription opioids in a secure place and out of reach of others (this may include visitors, children, friends, and family). ? Safely dispose of unused prescription opioids: Find your community drug take-back program or your pharmacy mail-back program, or flush them down the toilet, follow (more content not included)... [facility] ED Clinical Summaryon 2023 ED Clinical Summary ED Clinical Summary [address] [address] ED Clinical Summary Person Information Name: ALMA DELIA PEARL [facility] Age: 38 Years : 1985 Sex: Female Language: Cypriot PCP: Irasema Love Marital Status: Phone: [phone] MRN: Visit Id: Visit Reason: Breast problem; BOOB INFECTION Speciality: Acuity: 4 Enc Type: Emergency Med Service: Emergency Arrival: 11/28/2023 19:04:11 Discharge: 11/28/2023 21:00:31 LOS: 000 01:56 Checkin: 11/28/2023 19:04:11 Checkout: 11/28/2023 21:00:31 Dispo Type: Home (Routine DC) EVENTS: Event Name Event Status Request Date/Time Start Date/Time Complete Date/Time Arrive Complete 11/28/2023 19:04:11 11/28/2023 19:04:11 11/28/2023 19:04:11 Document Home Meds Request 11/28/2023 19:04:11 Triage Complete 11/28/2023 19:04:11 11/28/2023 19:12:19 11/28/2023 19:12:19 Bed Assign Complete 11/28/2023 19:08:14 11/28/2023 19:08:14 11/28/2023 19:08:14 Dr Exam Complete 11/28/2023 19:08:14 11/28/2023 19:34:10 11/28/2023 19:34:10 RN Exam Complete 11/28/2023 19:08:14 11/28/2023 19:36:02 11/28/2023 19:36:02 Registration Complete 11/28/2023 19:11:59 11/28/2023 19:11:59 11/28/2023 19:11:59 Reg Complete Request 11/28/2023 19:11:59 Reg Bed Request Complete 11/28/2023 19:11:59 11/28/2023 19:11:59 11/28/2023 19:11:59 Registration Request 11/28/2023 19:34:10 Dr Exam Complete 11/28/2023 19:37:13 11/28/2023 19:37:13 11/28/2023 19:37:13 Meds Admin Complete 11/28/2023 20:34:12 11/28/2023 20:58:43 Meds Admin Complete 11/28/2023 20:34:51 11/28/2023 20:58:43 Discharge Complete 11/28/2023 20:36:53 11/28/2023 21:00:35 11/28/2023 21:00:35 Transfer Complete 11/28/2023 21:00:35 11/28/2023 21:00:35 11/28/2023 21:00:35 ADDRESS: [address] [facility] [address] [facility] [phone] PHYS DOC NOTES: MEDICAL INFORMATION: Prescriptions Given: New Medications [id number], [address], [place] [id number], [phone] acetaminophen-hydroc odone ([place] 325 mg-5 mg oral tablet) 1 Tablets By Mouth every 6 hours as needed for pain for 2 Days. Refills: 0. clindamycin (clindamycin 300 mg oral cap) 1 Capsules By Mouth every 6 hours for 7 Days. Refills: 0. Medications to Continue with No Changes Other Medications albuterol (Albuterol (Eqv-ProAir HFA) 90 mcg/inh inhalation aerosol) 2 Puffs Inhalation every 6 hours. Refills: 4. albuterol (albuterol 0.083% Inh Padma 3 mL) 0.083% - 3mL dosing units Inhalation every 4 hours as needed Wheezing. Refills: 11. ascorbic acid (Vitamin C) brexpiprazole (Rexulti 1 mg oral tablet) brexpiprazole (Rexulti 3 mg oral tablet) buPROPion (buPROPion 100 mg ER Tab) 1 Unknown. bupropion-dextrometh orphan (Auvelity 45 mg-105 mg oral tablet, extended release) busPIRone (busPIRone 15 mg Tab) TAKE 1 TABLET BY MOUTH THREE TIMES DAILY. ergocalciferol (Vitamin D) famotidine (Pepcid 20 mg Tab) 1 Tablets By Mouth every day. Refills: 0. fluconazole (Diflucan 150 mg Tab) 1 Tablets By Mouth Once. 1 tab when antibiotic starts, and 1 tab at the completion of the antibiotic. Refills: 1. galcanezumab (Emgality Prefilled Pen 120 mg/mL subcutaneous solution) ADMINISTER 1 ML UNDER THE SKIN MONTHLY. hydrOXYzine (hydrOXYzine pamoate 25 mg Cap) TAKE 1 CAPSULE BY MOUTH EVERY 6 HOURS NEEDED FOR ANXIETY. loperamide (Imodium A-D EZ Chews 2 mg oral tablet, chewable) 1 Tablets Chewed every 4 hours as needed Diarrhea. Refills: 0. magnesium oxide By Mouth. [facility] Prescription (lancets) lancets test daily E11.9. Refills: 3. [facility] Prescription (na) provide patient with lancets and glucometer strips. Check glucose daily.. Refills: 6. Misc Prescription (Nebulizer and supplies) Pt requires nebulizer and tubing/supplies DX: J45.909. Refills: 0. Misc Prescription (Nebulizer Machine) Nebulizer Machine. Refills: 0. Misc Prescription (Nebulizer Machine) Nebulizer Machine. Refills: 0. Misc Prescription (Nebulizer Tubing and Mouthpiece Kit) Nebulizer Tubing and Mouthpiece Kit. Refills: 0. Misc Prescription (Test strips-True Metrix) Blood glucose test strips. Use daily to test fasting blood sugars and as needed for symptomatic high or low blood sugars. Refills: 2. multivitamin (Multi Vitamin+) 1 gummy Chewed every day. multivitamin (Vitamin B Complex oral capsule) 1 Tablets By Mouth every day. nystatin topical (nystatin Top 100,000 units/g Crm 15 gram) 1 Application Topical 2 times a day. Refills: 1. omeprazole (omeprazole 10 mg Cap-EC) 1 Capsules By Mouth 2 times a day. Refills: 1. omeprazole (omeprazole 40 mg Cap-DR) TAKE 1 CAPSULE BY MOUTH TWICE DAILY 30 MINUTES BEFORE BREAKFAST AND EVENING MEAL. ondansetron (Zofran 4 mg Tab) 1 Tablets By Mouth every 8 hours as needed Nausea/Vomiting. Refills: 0. ondansetron (Zofran ODT 4 mg Tab-Dis) 1 Tablets By Mouth every 8 hours as needed Nausea/Vomiting. Refills: 0. pregabalin (pregabalin 25 mg Cap) 1 Capsules By Mouth 2 times a day. pregab (more content not included)... [facility] ED Patient Summaryon 024 ED Patient Summary ED Patient Summary [place] [address] Patient Discharge Instructions Person Information Name: ALMA DELIA PEARL Age: 38 Years Arrival Date: 11/28/2023 19:04:11 Discharge Diagnosis: Breast abscess Primary Care Physician: Irasema Love Provider Information Primary Provider: Celena Dias DO Advanced Assistant Surveyor:None The exam and treatment you received in the Emergency Department were for an urgent problem and are not intended as complete care. It is important that you follow up with a doctor, nurse practitioner, or physician?s staff physical therapy assistant for ongoing care. If your symptoms become worse or you do not improve as expected and you are unable to reach your usual health care provider, you should return to the Emergency Department. We are available 24 hours a day. ALMA DELIA PEARL has been given the following list of patient education materials, prescriptions and follow-up instructions: Follow-up Instructions: With: Address: When: Daron Hernandez In 3 days 12/01/2023 Comments: Call Dr for diagnosis based follow up With: Address: When: [facility] [address], [address], [facility] [address] [place] [address] Business (1) In 3 days 12/01/2023 Comments: Call Dr for diagnosis based follow up With: Address: When: Irasema marley [address] [place] [address] Business (1) In 3 days 12/01/2023 Comments: Call Dr for diagnosis based follow up In the event that this physician does not participate in your insurance network, please consult with your insurance company to find a nearby participating provider. Patient Education Materials: Skin Abscess; Cellulitis, Adult, [id number] A MESSAGE TO ALL PATIENTS REGARDING OPIOIDS PRESCRIPTION OPIOIDS: WHAT YOU NEED TO KNOW Prescription opioids can be used to help relieve kqkwqsyc-[id number] pain and are often prescribed following a surgery or injury, or for certain health conditions. These medications can be an important part of the treatment but also come with serious risks. It is important to work with your healthcare provider to make sure you are getting the safest, most effective care. WHAT ARE THE RISKS AND SIDE EFFECTS OF OPIOID USE? Prescription opioids carry serious risks of addiction and overdose, especially with prolonged use. An opioid overdose, often marked by slowed breathing, can cause sudden . The use of prescription opioids can have a number of side effects as well, even when taken as directed: ? Tolerance?meaning you might need to take more of the medication for the same pain relief ? Physical dependence?meaning you have symptoms of withdrawal when a medication is stopped ? Increased sensitivity to pain ? Constipation ? Nausea, vomiting, and dry mouth ? Sleepiness and dizziness ? Confusion ? Depression ? Low levels of testosterone that can result in lower sex drive, energy, and strength ? Itching and sweating RISKS ARE GREATER WITH: ? History of drug misuse, substance use disorder, or overdose ? Mental health conditions (such as depression or anxiety) ? Sleep apnea ? Older age (65 years and older) ? Avoid alcohol while taking prescription opioids. Also, unless specifically advised by your health care provider, medications to avoid include: ? Benzodiazepines (such as Xanax or Valium) ? Muscle relaxants (such as Soma or Flexeril) ? Hypnotics (such as Ambien or Lunesta) ? Other prescription opioids KNOW YOUR OPTIONS Talk to your health care provider about ways to manage your pain that don?t involve prescription opioids. Some of these options may actually work better and have fewer risks and side effects. Options may include: ? Pain relievers such as acetaminophen, ibuprofen, and naproxen ? Some medication that are also used for depression or seizures ? Physical therapy and exercise ? Cognitive behavioral therapy, a psychological, goal-directed approach, in which patients learn how to modify physical, behavioral, and emotional triggers of pain and stress. IF YOU ARE PRESCRIBED OPIOIDS FOR PAIN: ? Never take opioids in greater amounts or more often than prescribed. ? Follow up with your primary health care provider. o Work together to create a plan on how to manage your pain. o Talk about ways to help manage your pain that don?t involve prescription opioids. o Talk about any and all concerns and side effects. ? Help prevent misuse and abuse o Never sell or share prescription opioids. o Never use another person?s prescription opioids. ? Store prescription opioids in a secure place and out of reach of others (this may include visitors, children, friends, and family). ? Safely dispose of unused prescription opioids: Find your community drug take-back program or your pharmacy mail-back program, o (more content not included)... [facility] Family Medicine Office/Clini c Noteon 09-24-2023 Family Medicine Office/Clinic Note Chief Complaint Subsequent Medicare Wellness Visit Review of Systems PHQ Score Initial Depression Screen Score: 0 SCORE Physical Exam Vitals & Measurements T: 36.7 ?C(Oral) HR: 78(Peripheral) BP: 118/76 SpO2: 97% HT: 175.26 cm HT: 69 in WT: 139 kg WT: 305.8 lb BMI: 45.25 Assessment/Plan 1. Annual visit for general adult medical examination without abnormal findings (Z00.00: Encounter for general adult medical examination without abnormal findings) The patient was given a customized and personalized print out of all the current AHRQ USPSTF?s recommendations for preventative services and all current CDC recommended immunizations, relevant risk recommendations and the following patient brochures were given. Reviewed Medicare Prevention Services checklist. CDC-Falls Prevention and home safety screening reviewed. Patient denies any falls in last 12 months, voices no worry about falling. Exhibits no problems with sitting, standing or ambulation. Patient aware with keeping walk way area free of clutter to prevent tripping and/or falling. [place] Advance Directives reviewed. Encouraged to complete documents to bring in for scanning into chart. Patient denies any problems with ADL?s and Instrumental ADL?s. Cognitive screening completed with memory and clock face drawing. No deficits noted. Immunization record reviewed, discussed Shingrix vaccine with educational handout and availability. COVID vaccines have been refused thus far. Allergies and medications reviewed and up to date. No concerns with taking medication as prescribed. Reviewed OTC medications, medication list up to date. Blood tests were reviewed: will follow up with labs as ordered with providers Reviewed pain symptoms : chronic back/leg pain, taking Lyrica as ordered. Reviewed all outside providers that patient follows. Last visit summary notes available in chart and/or have been requested. Patient declines any signs or symptoms of depression at this time. 8 minutes spent with screening and documentation. PHQ2 screening score 0. Patient denies any alcohol use. 8 minutes spent with screening and documentation. Audit score 0. Follow up with PCP is scheduled as needed. AWV has been scheduled, 09/25/2024. 2. Prediabetes (R73.03: Prediabetes) Following with Endocrinology at [facility]. Discussed ADA dietary recommendations. Encouraged to increase daily physical activity, adequate water intake, and monitor carbs/chol and fats. Was using Mounjaro, hasn't had for 2 months, her pharmacy has been back stocked. Patient does not monitor BS at home. Reminded to perform at home foot checks to prevent future complications. DM eye exam completed with Dr Magaña, visit summary notes available in chart. Will continue to follow up with specialist as directed. 3. Bipolar disorder, current episode depressed, moderate (F31.32: Bipolar disorder, current episode depressed, moderate) Follows with Psychiatry, Cherie Valentin. Taking medications as prescribed. States she believes these medications as a good combination for her, working well. Denies any hospitalizations or concerns at this time. Will continue to follow up with specialist as directed. 4. 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 States she is able to sleep all night and sleeps well with cpap on. Denies waking up short of breath, gasping for air or waking with a headache. No increased daytime fatigue. Will follow up as needed. 5. Crohn disease (K50.90: Crohn's disease, unspecified, without complications) Following with Gastrointestinal, Dr Patel. No medications or treatment being used at this time. Last colonoscopy 02/27/2021, will continue to follow up as needed. 6. BMI 45.0-49.9, adult (Z68.42: Body mass index [BMI] 45.0-49.9, adult) The standard range for ages 18 and older is >18.5 and <25kg/m2. Your BMI today was 45.25, this falls into the morbid obesity range. BMI meaning contributes to your health with a greater risk for HTN, high cholesterol, body pain, stroke, heart disease, Type 2 DM and early . Encouraged with healthy nutritional choices and the importance with daily physical activity. Your BMI and weight management will be followed with PCP visits. 7. Morbid obesity (E66.01: Morbid (severe) obesity due to excess calories) An increased cardiovascular risk may be associated with waist measurement female>35 men>40. Reminded of importance to work on lowering current body weight with healthy dietary intake choices and portion control. Reviewed goals and patients readiness with needing to make a lifestyle change. Will continue to monitor during office visits with progress. Follow-up No qualifying data available Patient Education Diabetes Mellitus and Nutrition, Adult Exercising to Lose Weight BMI for Adults Problem List/Past Medical History Ongoing Amenorrhea Anxiety Bipolar disorder, current episode depresse (more content not included)... [facility] Comment on above: Result Comment: Elec tronically Signed By: Reggie HUDDLESTON DO, FAAFP\.br\Date and Time Signed: 09/24/23 10:06 EDT\.br\Electronically Co-Signed By: Bianca Bear LPN\.br\Date and Time Co-Signed: 09/22/23 12:57 EDT Ambulatory Visit Summaryon 0 09-22-2023 Ambulatory Visit Summary ALMA DELIA PEARL :1985 Visit Date:09/22/2023 Ambulatory Visit Instructions Your Diagnosis Annual visit for general adult medical examination without abnormal findings Prediabetes Bipolar disorder, current episode depressed, moderate Dependence on other enabling machines and devices Crohn disease BMI 45.0-49.9, adult Morbid obesity These Are Your Goals Diabetes Mellitus-Improve glucose levels Interventions: Complete lab work as ordered. Increase daily exercise to 60 minutes a day. Review education pamphlets/books. Take a fasting glucose every morning. Obesity-Lose weight current weight 286.2 Interventions: Increase daily exercise to 60 minutes a day Make better food choices. Review balance diet pamphlet. Chronic pain-decrease back pain. Interventions: Continue with appointments at [facility]. Increase daily exercise Lose weight Take Medications as Prescribed Your Care Team Attending Physician - Irasema Love Primary Care Physician - Rell FERRER, Irasema Medley This Is Your Medications List Misc Prescription (Nebulizer Machine) Misc Prescription (Nebulizer Machine) Misc Prescription (Nebulizer Tubing and Mouthpiece Kit) Misc Prescription (Nebulizer and supplies) Misc Prescription (Test strips-True Metrix) Misc Prescription (lancets) Misc Prescription (na) albuterol (Albuterol (Eqv-ProAir HFA) 90 mcg/inh inhalation aerosol) albuterol (albuterol 0.083% Inh Padma 3 mL) ascorbic acid (Vitamin C) brexpiprazole (Rexulti 1 mg oral tablet) brexpiprazole (Rexulti 3 mg oral tablet) buPROPion (buPROPion 100 mg ER Tab) bupropion-dextrometh orphan (Auvelity 45 mg-105 mg oral tablet, extended release) busPIRone (busPIRone 15 mg Tab) ergocalciferol (Vitamin D) famotidine (Pepcid 20 mg Tab) fluconazole (Diflucan 150 mg Tab) galcanezumab (Emgality Prefilled Pen 120 mg/mL subcutaneous solution) hydrOXYzine (hydrOXYzine pamoate 25 mg Cap) loperamide (Imodium A-D EZ Chews 2 mg oral tablet, chewable) magnesium oxide multivitamin (Multi Vitamin+) multivitamin (Vitamin B Complex oral capsule) nystatin topical (nystatin Top 100,000 units/g Crm 15 gram) omeprazole (omeprazole 10 mg Cap-EC) omeprazole (omeprazole 40 mg Cap-DR) ondansetron (Zofran 4 mg Tab) ondansetron (Zofran ODT 4 mg Tab-Dis) pregabalin (pregabalin 25 mg Cap) pregabalin (pregabalin 75 mg Cap) promethazine (Phenergan 12.5 mg Supp) promethazine (Phenergan 25 mg Supp) tirzepatide (Mounjaro) tizanidine (tiZANidine 4 mg Tab) trazodone (traZODONE 50 mg Tab) ubrogepant (Ubrelvy 100 mg oral tablet) verapamil (verapamil 120 mg ER Tab) Procedures Performed Colonoscopy (02/01/2018), EGD & Colonoscopy (06/01/2016), EGD & Colooscopy (07/31/2014), Colonoscopy (04/28/2012), Colonoscopy, Decompression of lumbar spine, laproscopy x3, Tonsillectomy. Discharge Vitals Temperature (Oral) 36.7 ?C Heart Rate (Peripheral) 78 Blood Pressure 118/76 Height 175.26 cm Height 69 in Weight 139 kg Weight 305.8 lb BMI 45.25 What to do next Scheduled Follow-Up Appointments Tuesday. 2024 8:00 AM EDT Where: [facility] Patient Educationon 09-22-19 Patient Education Endocrinology Diabetes Mellitus and Nutrition, Adult When you have diabetes, or diabetes mellitus, it is very important to have healthy eating habits because your blood sugar (glucose) levels are greatly affected by what you eat and drink. Eating healthy foods in the right amounts, at about the same times every day, can help you: ? Manage your blood glucose. ? Lower your risk of heart disease. ? Improve your blood pressure. ? Reach or maintain a healthy weight. What can affect my meal plan? Every person with diabetes is different, and each person has different needs for a meal plan. Your health care provider may recommend that you work with a dietitian to make a meal plan that is best for you. Your meal plan may vary depending on factors such as: ? The calories you need. ? The medicines you take. ? Your weight. ? Your blood glucose, blood pressure, and cholesterol levels. ? Your activity level. ? Other health conditions you have, such as heart or kidney disease. How do carbohydrates affect me? Carbohydrates, also called carbs, affect your blood glucose level more than any other type of food. Eating carbs raises the amount of glucose in your blood. It is important to know how many carbs you can safely have in each meal. This is different for every person. Your dietitian can help you calculate how many carbs you should have at each meal and for each snack. How does alcohol affect me? Alcohol can cause a decrease in blood glucose (hypoglycemia), especially if you use insulin or take certain diabetes medicines by mouth. Hypoglycemia can be a life-threatening condition. Symptoms of hypoglycemia, such as sleepiness, dizziness, and confusion, are similar to symptoms of having too much alcohol. ? Do not drink alcohol if: ? Your health care provider tells you not to drink. ? You are , may be , or are planning to become . ? If you drink alcohol: ? Limit how much you have to: ? 0?1 drink a day for women. ? 0?2 drinks a day for men. ? Know how much alcohol is in your drink. In the [place] one drink equals one 12 oz bottle of beer (355 mL), one 5 oz glass of wine (148 mL), or one 1? oz glass of hard liquor (44 mL). ? Keep yourself hydrated with water, diet soda, or unsweetened iced tea. Keep in mind that regular soda, juice, and other mixers may contain a lot of sugar and must be counted as carbs. What are tips for following this plan? Reading food labels ? Start by checking the serving size on the Nutrition Facts label of packaged foods and drinks. The number of calories and the amount of carbs, fats, and other nutrients listed on the label are based on one serving of the item. Many items contain more than one serving per package. ? Check the total grams (g) of carbs in one serving. ? Check the number of grams of saturated fats and trans fats in one serving. Choose foods that have a low amount or none of these fats. ? Check the number of milligrams (mg) of salt (sodium) in one serving. Most people should limit total sodium intake to less than 2,300 mg per day. ? Always check the nutrition information of foods labeled as low-fat or nonfat. These foods may be higher in added sugar or refined carbs and should be avoided. ? Talk to your dietitian to identify your daily goals for nutrients listed on the label. Shopping ? Avoid buying canned, pre-made, or processed foods. These foods tend to be high in fat, sodium, and added sugar. ? Shop around the outside edge of the grocery store. This is where you will most often find fresh fruits and vegetables, bulk grains, fresh meats, and fresh dairy products. Cooking ? Use low-heat cooking methods, such as baking, instead of high-heat cooking methods, such as deep frying. ? Cook using healthy oils, such as olive, canola, or sunflower oil. ? Avoid cooking with butter, cream, or high-fat meats. Meal planning ? Eat meals and snacks regularly, preferably at the same times every day. Avoid going long periods of time without eating. ? Eat foods that are high in fiber, such as fresh fruits, vegetables, beans, and whole grains. ? Eat 4?6 oz (112?168 g) of lean protein each day, such as lean meat, chicken, fish, eggs, or tofu. One ounce (oz) (28 g) of lean protein is equal to: ? 1 oz (28 g) of meat, chicken, or fish. ? 1 egg. ? ? cup (62 g) of tofu. ? Eat some foods each day that contain healthy fats, such as avocado, nuts, seeds, and fish. What foods should I eat? Fruits Berries. Apples. Oranges. Peaches. Apricots. Plums. Grapes. Mangoes. Papayas. Pomegranates. Kiwi. Cherries. Vegetables Leafy greens, including lettuce, spinach, kale, chard, jamal greens, mustard greens, and cabbage. Beets. Cauliflower. Broccoli. Carrots. Green beans. Tomatoes. Peppers. Onions. Cucumbers. [place] sprouts. Grains Whole grains, such as whole-wheat or whole-grain bread, crackers, tortillas, cereal, and pasta. Unsweetened oatmeal. (more content not included)... Normal [facility] Population Healthon 09-22-[address] [facility] [id number] #1.00TIFF Normal [facility] ED Note-Physicianon 08-07-19 ED Note-Physician Basic Information Time Seen: Luis Almanza PA-C 07/25/2023 18:29 Chief Complaint rectal bleeding that started today. denies daily blood thinners. hx chrons. associated with nausea. History of Present Illness A 38-year-old female reports to the emergency department with chief complaint of some rectal bleeding. Reports started today. Reports that she is not any blood thinners. Reports a history of Crohn's disease. Reports that she has had this before. Reports some nausea with this. Denies any real belly pain, states that is very crampy. States that she went to get checked out. Reports that she was taking Zofran, not helping with her nausea. Denies any known vomiting. Reports is bright red blood that is coming out. Review of Systems A 10 point review of systems is negative except as noted above. Medical and Surgical History: Reviewed and noted Social history: Lives at home Family History: Reviewed. Tobacco: Denies, Physical Exam Vitals & Measurements T: 36.5 ?C(Oral) HR: 80(Peripheral) RR: 18 BP: 103/69 SpO2: 96% HT: 173 cm WT: 137 kg BMI: 45.78 General: The patient appears well and in no apparent distress. Patient is resting comfortably on bed. Afebrile Skin: Warm, dry, no pallor noted. Head: Normocephalic, atraumatic Neck: No JVD Eye: PERRLA, EOMI ENT: Moist mucus membranes Cardiovascular: Regular rate normal peripheral perfusion Respiratory: No respiratory distress no accessory muscle use no obvious audible wheezing Chest Wall: no deformity Musculoskeletal: normal ROM, no deformity, no swelling GI: No obvious distention soft. Mild generalized tenderness throughout the entire abdomen. Nondistended no guarding rebounding or rigidity Neurological: A&O moves all extremities equal strength and symmetry Psychiatric: Cooperative and appropriate Medical Decision Making MEDICAL DECISION MAKING Number and Complexity of Problems Differential Diagnosis: [] MDM Data External documents reviewed: [] My EKG interpretation: [] My CT interpretation: Reviewed My X-ray interpretation: [] My Ultrasound interpretation: [] Decision rules/scores evaluated: [] Discussed with: [] Treatment and Disposition ED Course: 38-year-old female reports to the emergency department with chief complaint of nausea and rectal bleeding. Reports history of Crohn's. States that she just feels a little bit tired. Concern for her blood count. On exam of the patient, she has a mild generalized tenderness of her abdomen, relatively benign. Nontachycardic. Afebrile. Due to concerns, we did do lab work as well as a CT of her abdomen. Lab work reviewed and noted. White count is at 10. Hemoglobin is at 11.6. CT of her abdomen was negative for any acute findings. Discussed with the patient. Patient did feel improved, did feel comfortable going home. Discussed quick follow-up with GI. Patient understanding. Discussed return precautions. Follow-up with your primary care provider in 3 to 5 days. If symptoms worsen, do not improve, or new symptoms arise please report back to emergency department for further evaluation. The patient was understanding and agreeable to plan moving forward. Shared decision making: [] Code status: [] Assessment/Plan Nausea (R11.0: Nausea) Rectal bleeding (K62.5: Hemorrhage of anus and rectum) Orders: dicyclomine, 20 mg = 2 mL, Injection, IntraMuscular, Once, Stop date 07/25/23 18:55:00 EDT, STAT, Start date 07/25/23 18:55:00 EDT, 07/25/23 18:55:00 EDT metoclopramide, 5 mg = 1 mL, Injection, IV Push, Once, Stop date 07/25/23 18:56:00 EDT, STAT, Start date 07/25/23 18:56:00 EDT, 07/25/23 18:56:00 EDT metoclopramide, 5 mg = 1 tab(s), Oral, QID, X 7 day(s), # 28 tab(s), Refills(s) 0, Pharmacy: [id number], 173, cm, 07/25/23 18:35:00 EDT, Height/Length Dosing, 137, kg, 07/25/23 18:35:00 EDT, Weight Dosing pantoprazole, 40 mg = 10 mL, Injection, IV Push, Once, Stop date 07/25/23 18:55:00 EDT, STAT, Start date 07/25/23 18:55:00 EDT, 07/25/23 18:55:00 EDT Sodium Chloride 0.9% intravenous solution, 1,000 mL, Soln-IV, IV, Once, Stop date 07/25/23 18:55:00 EDT, STAT, Start date 07/25/23 18:55:00 EDT, Infuse over 61, minute(s) ABO/Rh Basic Metabolic Panel Beta hCG Qual CBC w/ Auto Diff CT Abdomen/Pelvis w/ Contrast eGFR Extra Blue Tube Hepatic Function Panel Lipase Level Medications Administered Given dicyclomine 10 mg/mL Inj, 20 mg, IntraMuscular metoclopramide 5 mg/mL Inj, 5 mg, IV Push NS 1000 ml Bolus, 1000 mL, IV pantoprazole 40 mg IV Inj, 40 mg, IV Push Disposition Plan Patient Discharge Condition Stable Discharge Disposition To home Discharge Prescription List Prescriptions Reglan 5 mg Tab, 5 mg= 1 tab(s), Oral, QID Follow-up With When Contact Information Marilia Brown In 3 days 07/28/2023 EDT [address] [facility], [address] [address]- [phone] Business (1) Additional Instructions: Call Dr for diagnosis bas (more content not included)... Normal [facility] Comment on above: Result Comment: Elec tronically Signed By: Luis Almanza PA-C\.br\Date and Time Signed: 07/25/23 21:48 EDT\.br\Electronically Co-Signed By: Daron George DO\.br\Date and Time Co-Signed: 08/07/23 07:[address] Abdomen/Pelvis w/ Contras ton 07-26-2023 CT Abdomen/Pelvis w/ Contrast Exam Date/Time: 07/25/2023 19:57 EDT Reason for Exam: Abdominal pain, acute, nonlocalized;Other (please specify) Report IMPRESSION: CONTRACTED GALLBLADDER, SUSPECTED PHYSIOLOGIC, BUT IF GALLBLADDER PATHOLOGY IS SUSPECTED, THEN FURTHER EVALUATION WITH GALLBLADDER SONOGRAPHY WOULD BE SUGGESTED. OTHERWISE NO EVIDENCE OF ACUTE ABDOMINAL OR PELVIC PATHOLOGY. CLINICAL HISTORY: Abdominal pain, acute, nonlocalized. Patient states history of Crohn's disease. COMPARISON: 05/23/2022. COMMENT: Images were obtained following the administration of Intravenous contrast. The gallbladder is contracted, and this may be physiologic (the gastric lumen is filled mainly with food residue). No gallstone is evident on this exam. No pericholecystic inflammation or fluid is noted. There is no biliary ductal dilatation. The liver, spleen, pancreas, adrenal glands, and kidneys are unremarkable in appearance. The renal collecting systems are not dilated. There are small nonspecific retroperitoneal and mesenteric lymph nodes. No retroperitoneal lymphadenopathy is evident. The abdominal aorta is normal. No aneurysm is noted. Evaluation of bowel is limited. The bowel loops are not dilated, and there is no evidence of bowel obstruction. The small bowel (including terminal ileum) is unremarkable in appearance, without CT evidence of active small bowel inflammation. No mesenteric inflammation is visualized. The appendix is normal. Fecal material in the colon limits evaluation. There is no evidence of colitis or diverticulitis. No abdominal inflammatory complex nor free air nor free fluid is noted. The uterus is anteverted. Again visualized is an ovoid exophytic mass projecting from the left side of the uterine fundus, with diameter of approximately 3.2 cm, and consistent with uterine leiomyoma. Both ovaries are within normal limits in size and there are small follicular cysts in each ovary. The urinary bladder is unremarkable. No pelvic lymphadenopathy is noted. There are degenerative changes at the L4-L5 and L5-S1 levels. There are posterior hypertrophic spurs of the vertebral bodies projecting into the spinal canal and there are bilateral hypertrophic facet arthritic changes at these levels. There is resultant focal spinal canal stenosis and bilateral neural foraminal encroachment at the L4-L5 and L5-S1 levels. There also are mild hypertrophic degenerative changes involving lower thoracic vertebral bodies. All CT scans at this facility use dose modulation, iterative reconstruction, and/or weight based dosing when appropriate to reduce radiation dose to as low as reasonably Report achievable. Unless otherwise stated, incidental findings identified in this report do not require routine follow-up imaging. Ordering Provider: Luis Almanza FINAL REPORT Dictated: 07/26/2023 8:39 am Stan Clancy M.D. Signed (Electronic Signature): 07/26/2023 8:39 am Signed by: Stan Clancy M.D. Transcribed by: ABBY Technologist: PHILLIP Technical Comments GFR (mL/min/1/73m2) >60 Contrast: Isovue 300 Contrast amount in ml's: 100 Normal [facility] ABO/Rhon 07-25-2023 ABO/Rh Positive Invalid Interpretation Code [facility] Comment on above: Performed By: #### 2 [id number] ####[facility] [address] [place] [address] B hCG Qualon 07-25-2023 Beta HCG ( test) Ql Negative Normal [facility] Comment on above: Performed By: #### 2 466177, 77279351, 3524621, 4140034, 92309924, 3366848 ####[facility] [address] [place] [address] BLOOD BANKOrdered By: Clarence Swift on 07-25-2023 ABO/Rh Interp Positive Invalid Interpretation Code [facility] BB Subsection BMPon 07-25-2023 Anion gap [Moles/Vol] 13 mmol/L Normal 6-16 [facility] Comment on above: Performed By: #### 2 129094, 19257543, 3149871, 3652262, 11062350, 9941314 ####[facility] [address] [place] [address] Calcium [Mass/Vol] 9.1 mg/dL Normal 8.9-11.1 [facility] Comment on above: Performed By: #### 2 754597, 52387637, 2378397, 6933712, 81250864, 1388955 ####[facility] [address] [place] [address] Chloride [Moles/Vol] 107 mmol/L Normal 101-111 [facility] Comment on above: Performed By: #### 2 178508, 99196448, 9363989, 7861862, 75981614, 5233485 ####[facility] [address] [place] [address] CO2 [Moles/Vol] 24 mmol/L Normal 21-31 [facility] Comment on above: Performed By: #### 2 991568, 90167653, 3440940, 3498760, 78290320, 9771865 ####[facility] [address] [place] [address] Creatinine [Mass/Vol] 0.9 mg/dL Normal 0.5-1.3 [facility] Comment on above: Performed By: #### 2 342953, 33445631, 5110621, 9103775, 86023445, 8567452 ####[facility] [address] [place] [address] Glucose [Mass/Vol] 120 mg/dL Normal 55-199 [facility] Comment on above: Performed By: #### 2 203787, 25681827, 6858656, 3527031, 97920888, 2035183 ####[facility] [address] [place] [address] Potassium [Moles/Vol] 3.8 mmol/L Normal 3.5-5.3 [facility] Comment on above: Performed By: #### 2 702482, 15110013, 9967990, 4299057, 63449018, 0113555 ####[facility] [address] [place] [address] Sodium [Moles/Vol] 140 mmol/L Normal 135-145 [facility] Comment on above: Performed By: #### 2 254457, 86333689, 9247244, 5815961, 29721740, 3250659 ####[facility] [address] [facility] [place] [address] Urea nitrogen [Mass/Vol] 15 mg/dL Normal 5-21 [facility] Comment on above: Performed By: #### 2 964984, 24436396, 4308918, 8649559, 17306036, 5725804 ####[facility] [address] [place] [address] Urea nitrogen/Creatinine [Mass ratio] 17 No Units Normal 10-20 [facility] Comment on above: Performed By: #### 2 909247, 14617375, 5651142, 4084592, 56508635, 8640452 ####[address] [address] CBC w/ Auto Diffon 4 Basophils/100 WBC (Bld) 1.0 % Normal 0.0-2.0 [facility] Comment on above: Performed By: #### 2 681657, 10563908, 1934158, 3508023, 75979807, 4125855 ####[address] [address] Basophils/Leukocytes Auto (Bld) [Pure # fraction] 0.1 E9/L Normal 0.0-0.2 [facility] Comment on above: Performed By: #### 2 712251, 05154435, 8326884, 7052303, 33666311, 1538803 ####[address] [address] Eosinophils (Bld) [#/Vol] 0.2 E9/L Normal 0.0-0.5 [facility] Comment on above: Performed By: #### 2 562731, 18766836, 2588102, 3955762, 35524437, 7495077 ####[address] [address] Eosinophils/100 WBC (Bld) 2.3 % Normal 0.0-8.0 [facility] Comment on above: Performed By: #### 2 701226, 15409979, 6587814, 9213789, 99357021, 4935495 ####[address] [address] Erythrocyte distribution width (RBC) [Ratio] 13.3 % Normal 10.9-14.2 [facility] Comment on above: Performed By: #### 2 653293, 66951120, 2621142, 9936597, 33091461, 2696672 ####[address] [address] Hematocrit (Bld) [Volume fraction] 34.5 % Normal 34.0-46.0 [facility] Comment on above: Performed By: #### 2 103752, 27893327, 4154839, 2473508, 50588012, 4886023 ####[address] [address] Hemoglobin (Bld) [Mass/Vol] 11.6 g/dL Low 12.0-16.0 [facility] Comment on above: Performed By: #### 2 222210, 05257276, 4684857, 8704204, 27819163, 5997558 ####[address] [address] Lymphocytes (Bld) [#/Vol] 3.4 E9/L Normal 1.0-4.0 [facility] Comment on above: Performed By: #### 2 287229, 42374105, 0822670, 2401646, 45615255, 3081427 ####[address] [address] Lymphocytes/100 WBC (Bld) 33.6 % Normal 14.0-50.0 [facility] Comment on above: Performed By: #### 2 615055, 20250120, 7810575, 1054828, 07584926, 7161513 ####[address] [address] MCH (RBC) [Entitic mass] 27.7 pg Normal 27.0-34.0 [facility] Comment on above: Performed By: #### 2 725400, 42996779, 7373913, 1994180, 61807267, 4707489 ####[address] [address] MCHC (RBC) [Mass/Vol] 33.6 g/dL Normal 31.4-36.0 [facility] Comment on above: Performed By: #### 2 415106, 85640298, 0272556, 6741308, 53927010, 8523817 ####[address] [address] MCV (RBC) [Entitic vol] 82.5 fL Normal 80.0-100.0 F [facility] Comment on above: Performed By: #### 2 418445, 86280646, 7452136, 1020042, 28267808, 3490432 ####[address] [address] Monocytes (Bld) [#/Vol] 0.6 E9/L Normal 0.2-1.0 F [facility] Comment on above: Performed By: #### 2 622050, 93878976, 2362671, 7951001, 97839117, 1732880 ####[address] [address] Neutrophils (Bld) [#/Vol] 5.7 E9/L Normal 2.0-7.5 [facility] Comment on above: Performed By: #### 2 637260, 48395684, 9503983, 5533442, 67737477, 3349877 ####[address] [address] Neutrophils/100 WBC (Bld) 56.8 % Normal 36.0-75.0 [facility] Comment on above: Performed By: #### 2 366277, 28181005, 3262224, 6679529, 87025091, 1350454 ####[address] [address] Platelet 242.0 E9/L Normal 150.0-500.0 [facility] Comment on above: Performed By: #### 2 419056, 43404076, 4724369, 8201744, 91382834, 5968420 ####[address] [address] Platelet mean volume (Bld) [Entitic vol] 8.3 fL Normal 6.4-10.8 [facility] Comment on above: Performed By: #### 2 746422, 96953162, 8730281, 8590921, 47435861, 9428151 ####[facility] [address] [place] [address] RBC (Bld) [#/Vol] 4.2 E12/L Low 4.3-5.9 [facility] Comment on above: Performed By: #### 2 526273, 83087527, 0313390, 5297837, 28845549, 1748697 ####[facility] [address] [place] [address] WBC corrected for nucl RBC Auto (Bld) [#/Vol] 10.1 E9/L Normal 4.0-11.0 [facility] Comment on above: Performed By: #### 2 626423, 86185422, 8732520, 2894389, 97358433, 1121590 ####[facility] [address] [place] [address] CHEMISTRYOrdered By: SYSTEM SYSTEM on 07-25-2023 Albumin [Mass/Vol] 4.5 g/dL Normal 3.3 - 5.0 gm/dL Remisol Chem Albumin/Globulin [Mass ratio] 1.7 {ratio} Normal 1.1 - 2.2 Remisol Chem ALP [Catalytic activity/Vol] 60 [iU]/d Normal 21 - 98 Int._Unit/L Remisol Chem ALT No additional P-5'-P [Catalytic activity/Vol] 14 [iU]/d Normal 6 - 46 Int._Unit/L Remisol Chem Anion gap [Moles/Vol] 13 mmol/L Normal 6 - 16 mEq/L R emisol Chem AST [Catalytic activity/Vol] 12 [iU]/d Normal 5 - 43 Int._Unit/L Remisol Chem Bilirubin [Mass/Vol] 0.2 mg/dL Normal 0.0 - 1 .1 mg/dL Remisol Chem Bilirubin.direct [Mass/Vol] 0.0 mg/dL Normal 0.0 - 0.4 mg/dL Remisol Chem Bilirubin.indirect [Mass or moles/Vol] 0.2 mg/dL Normal 0.1 - 0.9 mg/dL Rem[facility] Chem Calcium [Mass/Vol] 9.1 mg/dL Normal 8.9 - 11. 1 mg/dL [facility] Chloride [Moles/Vol] 107 mmol/L Normal 101 - 1 11 mmol/L [facility] CO2 [Moles/Vol] 24 mmol/L Normal 21 - 31 mmol/L [facility] Creatinine [Mass/Vol] 0.9 mg/dL Normal 0.5 - 1.3 mg/dL Rem[facility] Chem eGFR 84 mL/min/1.73 m2 Normal >=59mL/min /1. 73 m2 Rem[facility] Chem Globulin (S) [Mass/Vol] 2.7 g/dL Normal 1.4 - 4.0 gm/dL Remisol Chem Glucose [Mass/Vol] 120 mg/dL Normal 55 - 199 mg/dL [facility] Chem Lipase [Catalytic activity/Vol] 34 U/L Normal 13 - 58 unit/L Remisol Chem Potassium [Moles/Vol] 3.8 mmol/L Normal 3.5 - 5.3 mmol/L Rem[facility] Chem Protein [Mass/Vol] 7.2 g/dL Normal 6.0 - 7.8 gm/dL [facility] Sodium [Moles/Vol] 140 mmol/L Normal 135 - 145 mmol/L [facility] Urea nitrogen [Mass/Vol] 15 mg/dL Normal 5 - 21 mg/dL [facility] Urea nitrogen/Creatinine [Mass ratio] 17 mg/mg Normal 10 - 20 Remisol Chem Consent for Treatmenton 07-07 Consent for Treatment [id number] #1.00TIFF Normal [facility] Discharge Instructionson Discharge Instructions [id number] 0#1.00TIFF Normal [facility] ED Clinical Summaryon 2023 ED Clinical Summary [place] [id number] ED Clinical Summary Person Information Name: DAE ALMA DELIA Villaseñor [facility] Age: 38 Years : 1985 Sex: Female Language: Cypriot PCP: Irasema Love Marital Status: MRN: Visit Id: Visit Reason: Nausea; Rectal bleed; RECTAL BLEEDING Speciality: Acuity: 3 Enc Type: Emergency Med Service: Emergency Arrival: 07/25/2023 18:17:29 Discharge: 07/25/2023 21:40:11 LOS: 000 03:23 Checkin: 07/25/2023 18:17:29 Checkout: 07/25/2023 21:40:11 Dispo Type: Home (Routine DC) EVENTS: Event Name Event Status Request Date/Time Start Date/Time Complete Date/Time Arrive Complete 07/25/2023 18:17:29 07/25/2023 18:17:29 07/25/2023 18:17:29 Document Home Meds Request 07/25/2023 18:17:29 Triage Complete 07/25/2023 18:17:29 07/25/2023 18:35:42 07/25/2023 18:35:42 Bed Assign Complete 07/25/2023 18:28:20 07/25/2023 18:28:20 07/25/2023 18:28:20 Dr Exam Complete 07/25/2023 18:28:20 07/25/2023 18:29:54 07/25/2023 18:29:54 RN Exam Complete 07/25/2023 18:28:20 07/25/2023 19:21:52 07/25/2023 19:21:52 Registration Complete 07/25/2023 18:29:54 07/25/2023 18:31:14 07/25/2023 18:31:14 Dr Exam Complete 07/25/2023 18:30:32 07/25/2023 18:30:32 07/25/2023 18:30:32 Reg Complete Request 07/25/2023 18:31:14 Reg Bed Request Complete 07/25/2023 18:31:14 07/25/2023 18:31:14 07/25/2023 18:31:14 Meds Admin Complete 07/25/2023 18:56:38 07/25/2023 19:18:29 Pending Labs Request 07/25/2023 18:56:38 Blood Collect Request 07/25/2023 18:56:38 Lab Request 07/25/2023 18:56:38 Urine Collect Request 07/25/2023 18:56:38 CT Complete 07/25/2023 18:56:38 07/25/2023 19:41:33 07/25/2023 19:57:53 Pending Labs Complete 07/25/2023 19:12:38 07/25/2023 19:12:38 07/25/2023 19:41:01 Lab Complete 07/25/2023 19:12:38 07/25/2023 19:12:38 07/25/2023 19:41:01 Discharge Complete 07/25/2023 21:13:53 07/25/2023 21:40:16 07/25/2023 21:40:16 Pending Labs Complete 07/25/2023 21:40:13 07/25/2023 21:40:13 07/25/2023 21:40:15 Transfer Complete 07/25/2023 21:40:17 07/25/2023 21:40:17 07/25/2023 21:40:17 ADDRESS: [address] [place] [phone] PHYS DOC NOTES: MEDICAL INFORMATION: Prescriptions Given: New Medications [id number], [address], [place] [id number], [phone] metoclopramide (Reglan 5 mg Tab) 1 Tablets By Mouth 4 times a day for 7 Days. Refills: 0. Medications to Continue with No Changes Other Medications albuterol (Albuterol (Eqv-ProAir HFA) 90 mcg/inh inhalation aerosol) 2 Puffs Inhalation every 6 hours. Refills: 4. albuterol (albuterol 0.083% Inh Padma 3 mL) 0.083% - 3mL dosing units Inhalation every 4 hours as needed Wheezing. Refills: 11. ascorbic acid (Vitamin C) brexpiprazole (Rexulti 1 mg oral tablet) brexpiprazole (Rexulti 3 mg oral tablet) buPROPion (buPROPion 100 mg ER Tab) 1 Unknown. bupropion-dextrometh orphan (Auvelity 45 mg-105 mg oral tablet, extended release) busPIRone (busPIRone 15 mg Tab) TAKE 1 TABLET BY MOUTH THREE TIMES DAILY. ergocalciferol (Vitamin D) famotidine (Pepcid 20 mg Tab) 1 Tablets By Mouth every day. Refills: 0. fluconazole (Diflucan 150 mg Tab) 1 Tablets By Mouth Once. 1 tab when antibiotic starts, and 1 tab at the completion of the antibiotic. Refills: 1. galcanezumab (Emgality Prefilled Pen 120 mg/mL subcutaneous solution) ADMINISTER 1 ML UNDER THE SKIN MONTHLY. hydrOXYzine (hydrOXYzine pamoate 25 mg Cap) TAKE 1 CAPSULE BY MOUTH EVERY 6 HOURS NEEDED FOR ANXIETY. loperamide (Imodium A-D EZ Chews 2 mg oral tablet, chewable) 1 Tablets Chewed every 4 hours as needed Diarrhea. Refills: 0. magnesium oxide By Mouth. Misc Prescription (lancets) lancets test daily E11.9. Refills: 3. Misc Prescription (na) provide patient with lancets and glucometer strips. Check glucose daily.. Refills: 6. Misc Prescription (Nebulizer and supplies) Pt requires nebulizer and tubing/supplies DX: J45.909. Refills: 0. Misc Prescription (Nebulizer Machine) Nebulizer Machine. Refills: 0. Misc Prescription (Nebulizer Machine) Nebulizer Machine. Refills: 0. Misc Prescription (Nebulizer Tubing and Mouthpiece Kit) Nebulizer Tubing and Mouthpiece Kit. Refills: 0. Misc Prescription (Test strips-True Metrix) Blood glucose test strips. Use daily to test fasting blood sugars and as needed for symptomatic high or low blood sugars. Refills: 2. multivitamin (Multi Vitamin+) 1 gummy Chewed every day. multivitamin (Vitamin B Complex oral capsule) 1 Tablets By Mouth every day. nystatin topical (nystatin Top 100,000 units/g Crm 15 gram) 1 Application Topical 2 times a day. Refills: 1. omeprazole (omeprazole 10 mg Cap-EC) 1 Capsules By Mouth 2 times a day. Refills: 1. omeprazole (omeprazole 40 mg Cap-DR) TAKE 1 CAPSULE BY MOUTH TWICE DAILY 30 MINUTES BEFORE BREAKFAST AND EVENING MEAL. ondansetron (Zofran 4 mg Tab) 1 Tablets By Mouth every 8 hours as needed Nausea/Vomiti (more content not included)... Normal [facility] ED Patient Education Noteon 07-25-2023 ED Patient Education Note Gastroenterology Nausea, Adult Nausea is feeling like you may vomit. Feeling like you may vomit is usually not serious, but it may be an early sign of a more serious medical problem. Vomiting is when stomach contents forcefully come out of your mouth. If you vomit, or if you are not able to drink enough fluids, you may not have enough water in your body (get dehydrated). If you do not have enough water in your body, you may: ? Feel tired. ? Feel thirsty. ? Have a dry mouth. ? Have cracked lips. ? Pee (urinate) less often. Older adults and people who have other diseases or a weak body defense system (immune system) have a higher risk of not having enough water in the body. The main goals of treating this condition are: ? To relieve your nausea. ? To ensure your nausea occurs less often. ? To prevent vomiting and losing too much fluid. Follow these instructions at home: Watch your symptoms for any changes. Tell your doctor about them. Eating and drinking ? Take an ORS (oral rehydration solution). This is a drink that is sold at pharmacies and stores. ? Drink clear fluids in small amounts as you are able. These include: ? Water. ? Ice chips. ? Fruit juice that has water added (diluted fruit juice). ? Low-calorie sports drinks. ? Eat bland, zohf-us-qojrvw foods in small amounts as you are able, such as: ? Bananas. ? Applesauce. ? Rice. ? Low-fat (lean) meats. ? [place]. ? Crackers. ? Avoid drinking fluids that have a lot of sugar or caffeine in them. This includes energy drinks, sports drinks, and soda. ? Avoid alcohol. ? Avoid spicy or fatty foods. General instructions ? Take ribc-zzr-okaaaep and prescription medicines only as told by your doctor. ? Rest at home while you get better. ? Drink enough fluid to keep your pee (urine) pale yellow. ? Take slow and deep breaths when you feel like you may vomit. ? Avoid food or things that have strong smells. ? Wash your hands often with soap and water for at least 20 seconds. If you cannot use soap and water, use hand coremaker apprentice. ? Make sure that everyone in your home washes their hands well and often. ? Keep all follow-up visits. Contact a doctor if: ? You feel worse. ? You feel like you may vomit and this lasts for more than 2 days. ? You vomit. ? You are not able to drink fluids without vomiting. ? You have new symptoms. ? You have a fever. ? You have a headache. ? You have muscle cramps. ? You have a rash. ? You have pain while peeing. ? You feel light-headed or dizzy. Get help right away if: ? You have pain in your chest, neck, arm, or jaw. ? You feel very weak or you faint. ? You have vomit that is bright red or looks like coffee grounds. ? You have bloody or black poop (stools) or poop that looks like tar. ? You have a very bad headache, a stiff neck, or both. ? You have very bad pain, cramping, or bloating in your belly (abdomen). ? You have trouble breathing or you are breathing very quickly. ? Your heart is beating very quickly. ? Your skin feels cold and clammy. ? You feel confused. ? You have signs of losing too much water in your body, such as: ? Dark pee, very little pee, or no pee. ? Cracked lips. ? Dry mouth. ? Sunken eyes. ? Sleepiness. ? Weakness. These symptoms may be an emergency. Get help right away. Call 911. ? Do not wait to see if the symptoms will go away. ? Do not drive yourself to the hospital. Summary ? Nausea is feeling like you are about vomit. ? If you vomit, or if you are not able to drink enough fluids, you may not have enough water in your body (get dehydrated). ? Eat and drink what your doctor tells you. Take zvxm-xvc-vankvpx and prescription medicines only as told by your doctor. ? Contact a doctor right away if your symptoms get worse or you have new symptoms. ? Keep all follow-up visits. This information is not intended to replace advice given to you by your health care provider. Make sure you discuss any questions you have with your health care provider. Document Revised: 10/30/2021 Document Reviewed: 10/30/2021 [employer] Patient Education ? 2022 [employer] Rectal Bleeding Rectal bleeding is when blood passes out of the opening between the buttocks (anus). People with rectal bleeding may notice bright red blood in their underwear or in the toilet after having a bowel movement. They may also have blood mixed with their stool (feces), or dark red or black stools. Rectal bleeding is usually a sign that something is wrong. Many things can cause rectal bleeding, including: ? Diverticulosis. This is a condition in which pockets or sacs project from the bowel. ? Hemorrhoids. These are blood vessels around the anus or inside the rectum that are larger than normal. ? Anal fissures. This is a tear in the anus. ? Proctitis and colitis. These are condition (more content not included)... Normal [facility] ED Patient Summaryon 024 ED Patient Summary [place] [address] Patient Discharge Instructions Person Information Name: ALMA DELIA PEARL Age: 38 Years Arrival Date: 07/25/2023 18:17:29 Discharge Diagnosis: Nausea; Rectal bleeding Primary Care Physician: Irasema Love Provider Information Primary Provider: Daron George DO Advanced Assistant Surveyor:None The exam and treatment you received in the Emergency Department were for an urgent problem and are not intended as complete care. It is important that you follow up with a doctor, nurse practitioner, or physician?s staff physical therapy assistant for ongoing care. If your symptoms become worse or you do not improve as expected and you are unable to reach your usual health care provider, you should return to the Emergency Department. We are available 24 hours a day. ALMA DELIA PEARL has been given the following list of patient education materials, prescriptions and follow-up instructions: Follow-up Instructions: With: Address: When: Marilia Brown [address] [place] [address], [address], [place] [address] [phone] Business (1) In 3 days 07/28/2023 Comments: Call Dr for diagnosis based follow up With: Address: When: Irasema Vaughn, [place] [address] [facility] (1) In 3 days In the event that this physician does not participate in your insurance network, please consult with your insurance company to find a nearby participating provider. Patient Education Materials: Nausea, Adult, Wxkv-nh-Brgv; Rectal Bleeding A MESSAGE TO ALL PATIENTS REGARDING OPIOIDS PRESCRIPTION OPIOIDS: WHAT YOU NEED TO KNOW Prescription opioids can be used to help relieve smktqkyg-aw-swkcya pain and are often prescribed following a surgery or injury, or for certain health conditions. These medications can be an important part of the treatment but also come with serious risks. It is important to work with your healthcare provider to make sure you are getting the safest, most effective care. WHAT ARE THE RISKS AND SIDE EFFECTS OF OPIOID USE? Prescription opioids carry serious risks of addiction and overdose, especially with prolonged use. An opioid overdose, often marked by slowed breathing, can cause sudden . The use of prescription opioids can have a number of side effects as well, even when taken as directed: ? Tolerance?meaning you might need to take more of the medication for the same pain relief ? Physical dependence?meaning you have symptoms of withdrawal when a medication is stopped ? Increased sensitivity to pain ? Constipation ? Nausea, vomiting, and dry mouth ? Sleepiness and dizziness ? Confusion ? Depression ? Low levels of testosterone that can result in lower sex drive, energy, and strength ? Itching and sweating RISKS ARE GREATER WITH: ? History of drug misuse, substance use disorder, or overdose ? Mental health conditions (such as depression or anxiety) ? Sleep apnea ? Older age (65 years and older) ? Avoid alcohol while taking prescription opioids. Also, unless specifically advised by your health care provider, medications to avoid include: ? Benzodiazepines (such as Xanax or Valium) ? Muscle relaxants (such as Soma or Flexeril) ? Hypnotics (such as Ambien or Lunesta) ? Other prescription opioids KNOW YOUR OPTIONS Talk to your health care provider about ways to manage your pain that don?t involve prescription opioids. Some of these options may actually work better and have fewer risks and side effects. Options may include: ? Pain relievers such as acetaminophen, ibuprofen, and naproxen ? Some medication that are also used for depression or seizures ? Physical therapy and exercise ? Cognitive behavioral therapy, a psychological, goal-directed approach, in which patients learn how to modify physical, behavioral, and emotional triggers of pain and stress. IF YOU ARE PRESCRIBED OPIOIDS FOR PAIN: ? Never take opioids in greater amounts or more often than prescribed. ? Follow up with your primary health care provider. o Work together to create a plan on how to manage your pain. o Talk about ways to help manage your pain that don?t involve prescription opioids. o Talk about any and all concerns and side effects. ? Help prevent misuse and abuse o Never sell or share prescription opioids. o Never use another person?s prescription opioids. ? Store prescription opioids in a secure place and out of reach of others (this may include visitors, children, friends, and family). ? Safely dispose of unused prescription opioids: Find your community drug take-back program or your pharmacy mail-back program, or flush them down the toilet, following guidance from the Food and Drug Administration (www.fda.gov/Drugs/R esourcesForYou). ? Visit www.cdc.gov/drugover dose to learn about the risks of op (more content not included)... Normal [facility] HEMATOLOGYOrdered By: SYSTEM SYSTEM on 07-25-2023 Basophils/100 WBC (Bld) 1.0 % Normal 0.0 - 2.0 % Remisol Heme Basophils/Leukocytes Auto (Bld) [Pure # fraction] 0.1 E9/L Normal 0.0 - 0.2 E9/L Remisol Heme Eosinophils (Bld) [#/Vol] 0.2 E9/L Normal 0.0 - 0.5 E9/L Remisol Heme Eosinophils/100 WBC (Bld) 2.3 % Normal 0.0 - 8.0 % Remisol Heme Erythrocyte distribution width (RBC) [Ratio] 13.3 % Normal 10.9 - 14.2 % Remisol Heme Hematocrit (Bld) [Volume fraction] 34.5 % Normal 34.0 - 46.0 % Remisol Heme Hemoglobin (Bld) [Mass/Vol] 11.6 g/dL Low 12.0 - 16.0 gm/dL Remisol Heme Lymphocytes (Bld) [#/Vol] 3.4 E9/L Normal 1.0 - 4.0 E9/L Remisol Heme Lymphocytes/100 WBC (Bld) 33.6 % Normal 14.0 - 50.0 % Remisol Heme MCH (RBC) [Entitic mass] 27.7 pg Normal 27.0 - 34.0 pg Remisol Heme MCHC (RBC) [Mass/Vol] 33.6 g/dL Normal 31.4 - 36.0 gm/dL Remisol Heme MCV (RBC) [Entitic vol] 82.5 fL Normal 80.0 - 100.0 fL Remisol Heme Monocytes (Bld) [#/Vol] 0.6 E9/L Normal 0.2 - 1.0 E9/L Remisol Heme Monocytes/100 WBC (Bld) 6.3 % Normal 4.0 - 14.0 % Remisol Heme Neutrophils (Bld) [#/Vol] 5.7 E9/L Normal 2.0 - 7.5 E9/L Remisol Heme Neutrophils/100 WBC (Bld) 56.8 % Normal 36.0 - 75.0 % Remisol Heme Platelet 242.0 E9/L Normal 150.0 - 500.0 E9/L Remisol Heme Platelet mean volume (Bld) [Entitic vol] 8.3 fL Normal 6.4 - 10.8 fL Remisol Heme RBC (Bld) [#/Vol] 4.2 E12/L Low 4.3 - 5.9 E12/L Remisol Heme WBC corrected for nucl RBC Auto (Bld) [#/Vol] 10.1 E9/L Normal 4.0 - 11.0 E9/L Remisol Heme Hep Func Panelon 07-25-2023 Albumin [Mass/Vol] 4.5 g/dL Normal 3.3-5.0 [facility] Comment on above: Performed By: #### 2 797734, 88517510, 5978586, 2237856, 34517095, 0704784 ####[place] [address] [place] [address] Albumin/Globulin (S) [Mass conc ratio] 1.7 Normal 1.1-2.2 [facility] Comment on above: Performed By: #### 2 463583, 36503578, 0183796, 8538199, 94636568, 7133003 ####[facility] [address] [place] [address] ALP [Catalytic activity/Vol] 60 Int._Unit/L Normal 21-98 [facility] Comment on above: Performed By: #### 2 545707, 58294681, 2508648, 4650346, 89472250, 5117113 ####[facility] [address] [place] [address] ALT No additional P-5'-P [Catalytic activity/Vol] 14 Int._Unit/L Normal 6-46 [facility] Comment on above: Performed By: #### 2 157350, 47518686, 1185675, 6211670, 58705386, 3762069 ####[address] [address] AST [Catalytic activity/Vol] 12 Int._Unit/L Normal 5-43 [facility] Comment on above: Performed By: #### 2 734418, 62974775, 4386741, 0006345, 32552952, 7203455 ####[address] [address] Bilirubin [Mass/Vol] 0.2 mg/dL Normal 0.0-1.1 [facility] Comment on above: Performed By: #### 2 487237, 11516894, 6291408, 9985655, 76392615, 1920552 ####[address] [address] Bilirubin.direct [Mass/Vol] 0.0 mg/dL Normal 0.0-0.4 [facility] Comment on above: Performed By: #### 2 577155, 96444826, 9914728, 2144130, 47591027, 3546079 ####[facility] [address] [place] [address] Bilirubin.indirect [Mass or moles/Vol] 0.2 mg/dL Normal 0.1-0.9 [facility] Comment on above: Performed By: #### 2 848273, 41070189, 5174087, 3205166, 50575051, 5582377 ####[facility] [address] [place] [address] Globulin (S) [Mass/Vol] 2.7 g/dL Normal 1.4-4.0 [facility] Comment on above: Performed By: #### 2 757554, 67939217, 7791885, 3817074, 95469428, 6810880 ####[facility] [address] [place] [address] Protein [Mass/Vol] 7.2 g/dL Normal 6.0-7.8 [facility] Comment on above: Performed By: #### 2 745931, 98214340, 1531817, 5382555, 37159203, 7587412 ####[place] [place] [address] Lipase Levelon 07-25-2023 Lipase [Catalytic activity/Vol] 34 U/L Normal 13-58 [facility] Comment on above: Performed By: #### 2 412248, 15522938, 6916528, 0274086, 49561166, 5134773 ####[place] [place] [address] RAD - Preliminary Cat Scan R eporton 07-25-2023 RAD - Preliminary Cat Scan Report [id number]#1.00TIFF Normal [facility] SEROLOGYOrdered By: France Martinez on 07-25-2023 Beta HCG ( test) Ql Negative (07/25/23 7:12 PM) Normal [facility] Man Sero eGFRon 07-25-2023 eGFR 84 mL/min/1.73 m2 Normal >=59 [facility] Comment on above: Order Comment: Order added by Discern Expert. Performed By: #### 2 838346, 42014483, 0392768, 8618734, 83835928, 8024023 ####[facility] [address] [place] [address] Consultation Noteon 07-07-19 Consultation Note [id number]# 1.00TIFF Normal [facility] 25(OH)D3 SerPl-mCncon 2023 25-hydroxyvitamin D3 [Mass/Vol] 20.6 ng/mL Low 31.0-80.0 [facility] Comment on above: Order Comment: Speci men Type: BLOOD SPECIMEN Ordering Facility: [facility] Address: [address] [place] [address] Performed By: #### 1 989-3 #### [facility] CLIA [id number] [address] [place] [address] [place] [address] [facility] Comprehensive metabolic 2000 panelon 07-06-2023 Albumin [Mass/Vol] 4.6 g/dL Normal 3.9-4.9 [facility] Comment on above: Order Comment: Speci men Type: BLOOD SPECIMEN Ordering Facility: [facility] Address: [address] [place] [address] Performed By: #### 2 4323-8 #### [facility] CLIA [id number] [address] [place] [address] ALP [Catalytic activity/Vol] 70 U/L Normal 34-123 [facility] Comment on above: Order Comment: Speci men Type: BLOOD SPECIMEN Ordering Facility: [facility] Address: [address] [place] [address] Performed By: #### 2 4323-8 #### [facility] CLIA [id number] [address] [place] [address] ALT [Catalytic activity/Vol] 15 U/L Normal 7-38 [facility] Comment on above: Order Comment: Speci men Type: BLOOD SPECIMEN Ordering Facility: [facility] Address: [address] [place] [address] Performed By: #### 2 4323-8 #### [facility] CLIA [id number] [address] [place] [address] Anion gap [Moles/Vol] 12 mmol/L Normal 9-18 [facility] Comment on above: Order Comment: Speci men Type: BLOOD SPECIMEN Ordering Facility: [facility] Address: [address] [place] [address] Performed By: #### 2 4323-8 #### [facility] CLIA [id number] [address] [place] [address] AST [Catalytic activity/Vol] 14 U/L Normal 13-35 [facility] Comment on above: Order Comment: Speci men Type: BLOOD SPECIMEN Ordering Facility: [facility] Address: [address] [place] [address] Performed By: #### 2 4323-8 #### [facility] CLIA [id number] [address] [place] [address] Bilirubin [Mass/Vol] 0.3 mg/dL Normal 0.2-1.3 [facility] Comment on above: Order Comment: Speci men Type: BLOOD SPECIMEN Ordering Facility: [facility] Address: [address] [place] [address] Performed By: #### 2 4323-8 #### [facility] CLIA [id number] [address] [place] [address] Calcium [Mass/Vol] 10.0 mg/dL Normal 8.5-10.2 [facility] Comment on above: Order Comment: Speci men Type: BLOOD SPECIMEN Ordering Facility: [facility] Address: [address] [place] [address] Performed By: #### 2 4323-8 #### [facility] CLIA [id number] [address] [place] [address] Chloride [Moles/Vol] 106 mmol/L High 97-105 [facility] Comment on above: Order Comment: Speci men Type: BLOOD SPECIMEN Ordering Facility: [facility] Address: [address] [place] [address] Performed By: #### 2 4323-8 #### [facility] CLIA [id number] [address] [place] [address] CO2 [Moles/Vol] 24 mmol/L Normal 22-30 [facility] Comment on above: Order Comment: Speci men Type: BLOOD SPECIMEN Ordering Facility: [facility] Address: [address] [place], [place] [address] Performed By: #### 2 4323-8 #### [facility] CLIA [id number] [address] [place] [address] Creatinine [Mass/Vol] 0.90 mg/dL Normal 0.58-0.96 [facility] Comment on above: Order Comment: Speci men Type: BLOOD SPECIMEN Ordering Facility: [facility] Address: [address] [place] [address] Performed By: #### 2 4323-8 #### [facility] CLIA [id number] [address] [place] [address] Creatinine and Glomerular filtration rate.predicted panel (S/P/Bld) 84 mL/min/1.73m??? Normal >=60 [facility] Comment on above: Order Comment: Speci men Type: BLOOD SPECIMEN Ordering Facility: [facility] Address: [address] [place] [address] Result Comment: Norma mated Glomerular Filtration Rate (eGFR) is calculated using the 2020 CKD-EPI creatinine equation. This equation utilizes serum creatinine, sex, and age as parameters. The creatinine assay has traceable calibration to isotope dilution-mass spectrometry. Refer to KDIGO guidelines for clinical interpretation. In patients with unstable renal function, e.g. those with acute kidney injury, the eGFR may not accurately reflect actual GFR. Performed By: #### 2 4323-8 #### [facility] CLIA [id number] [address] [place] [address] Glucose [Mass/Vol] 118 mg/dL High 74-99 [facility] Comment on above: Order Comment: Speci men Type: BLOOD SPECIMEN Ordering Facility: [facility] Address: [address] [place], [place] [address] Result Comment: The [place] Diabetes [employer] (ADA) provides guidance for cutoff values for fasting glucose and random glucose. The ADA defines fasting as no caloric intake for at least 8 hours. Fasting plasma glucose results between 100 to 125 mg/dL indicate increased risk for diabetes (prediabetes). Fasting plasma glucose results greater than or equal to 126 mg/dL meet the criteria for diagnosis of diabetes. In the absence of unequivocal hyperglycemia, results should be confirmed by repeat testing. In a patient with classic symptoms of hyperglycemia or hyperglycemic crisis, random plasma glucose results greater than or equal to 200 mg/dL meet the criteria for diagnosis of diabetes. Reference: Standards of Medical Care in Diabetes 2016, [place] [employer]. Diabetes Care. 2016.39(Suppl 1). Performed By: #### 2 4323-8 #### [facility] CLIA [id number] [address] [place] [address] Potassium [Moles/Vol] 4.2 mmol/L Normal 3.7-5.1 [facility] Comment on above: Order Comment: Speci men Type: BLOOD SPECIMEN Ordering Facility: [facility] Address: [address] [place] [address] Performed By: #### 2 4323-8 #### [facility] CLIA [id number] [address] [place] [address] Protein [Mass/Vol] 7.5 g/dL Normal 6.3-8.0 [facility] Comment on above: Order Comment: Speci men Type: BLOOD SPECIMEN Ordering Facility: [facility] Address: [address] [place] [address] Performed By: #### 2 4323-8 #### [facility] CLIA [id number] [address] [place] [address] Sodium [Moles/Vol] 142 mmol/L Normal 136-144 [facility] Comment on above: Order Comment: Speci men Type: BLOOD SPECIMEN Ordering Facility: [facility] Address: [address] [place] [address] Performed By: #### 2 4323-8 #### [facility] CLIA [id number] [address] [place] [address] Urea nitrogen [Mass/Vol] 14 mg/dL Normal 7-21 [facility] Comment on above: Order Comment: Speci men Type: BLOOD SPECIMEN Ordering Facility: [facility] Address: [address] [place] [address] Performed By: #### 2 4323-8 #### [facility] CLIA [id number] [address] [place], [place] [id number] Cortis p Dex SerPl-mCncon Cortisol post dose dexamethasone [Mass/Vol] 0.5 ug/dL Normal <1.8 [facility] Comment on above: Order Comment: Speci men Type: BLOOD SPECIMEN Ordering Facility: [facility] Address: [address] [place] [address] Result Comment: Afte r overnight 1 mg dexamethasone, an etiquette teacher cortisol of <1.8 ug/dL may indicate an adequate cortisol suppression. This result should be interpreted within the clinical context and other test results. Maggy et al. Evidence for the Low Dose Dexamethasone Suppression Test to Screen for Belén's Syndrome - Recommendations for a Protocol for Biochemistry Laboratories. 1997 Kristi. Clin. Biochem. 34 222-229. Performed By: #### 2 4331-1 #### [facility] CLIA [id number] [address] [place] [address] [place] [facility] CLIA [id number] [address] [place] [address] #### 12590-5 #### [facility] CLIA [id number] [address] [place] [address] [place] DEXAMETHASONEon 07-06-2023 DEXAMETHASONE 299.5 ng/dL Normal [facility] Comment on above: Order Comment: Speci men Type: BLOOD SPECIMEN Ordering Facility: [facility] Address: [address] [place] [address] Result Comment: INTE RPRETIVE INFORMATION: Dexamethasone, Serum or Plasma by LC-MS/MS Adults baseline: Less than 50 ng/dL 8:00 AM draw following 1 mg dexamethasone between 11:00 pm and 12:00 am the previous evenin - 295 ng/dL 8:00 AM draw following 8 mg dexamethasone (4 x 2 mg doses) between 11:00 pm and 12:00 am the previous evenin - 2850 ng/dL This test was developed and its performance characteristics determined by [facility]. It has not been cleared or approved by the [place] Food and Drug Administration. This test was performed in a CLIA certified laboratory and is intended for clinical purposes. Performed By: [facility] [address] [place] [address] Cloth Folder Machine: Dean Gill MD, PhD CLIA Number: [id number] Performed By: #### D ÁLVARO #### [facility] CLIA [id number] [address] [place] [address] HbA1c (Bld)on 07-06-2023 Average glucose Estimated from glycated hemoglobin (Bld) [Mass/Vol] 128 mg/dL Normal [facility] Comment on above: Order Comment: Specdeborah lyle Type: BLOOD SPECIMEN Ordering Facility: [facility] Address: [address] [place] [address] Result Comment: eAG: (Estimated average glucose) is a calculated value from HgbA1c and is circulation sales representative of the average blood glucose level in the last 2-3 month period. Performed By: #### 5 5454-3 #### [facility] CLIA [id number] [address] [place] [address] [place] HbA1c (Bld) [Mass fraction] 6.1 % High 4.3-5.6 [facility] Comment on above: Order Comment: Dale lyle Type: BLOOD SPECIMEN Ordering Facility: [facility] Address: [address] [place] [address] Result Comment: Amer ican Diabetes Association guidelines indicate that patients with HgbA1c in the range 5.7-6.4% are at increased risk for development of diabetes, and intervention by lifestyle modification may be beneficial. HgbA1c greater or equal to 6.5% is considered diagnostic of diabetes. Performed By: #### 5 5454-3 #### [facility] CLIA [id number] [address] [place] [address] [place] Lipid 1996 panelon 4 Cholesterol [Mass/Vol] 240 mg/dL High <200 [facility] Comment on above: Order Comment: Speci men Type: BLOOD SPECIMEN Ordering Facility: [facility] Address: [address] [place] [address] Result Comment: <200 mg/dL, Desirable 200-239 mg/dL, Borderline high >239 mg/dL, High Performed By: #### 2 4331-1 #### [facility] CLIA [id number] [address] [place] [address] LAB CLIA [id number] [address] [place] [address] #### [id number] #### [facility] CLIA [id number] [address] [place] [address] [facility] Cholesterol in HDL [Mass/Vol] 45 mg/dL Normal >39 [facility] Comment on above: Order Comment: Speci men Type: BLOOD SPECIMEN Ordering Facility: [facility] Address: [address] [place] [address] Result Comment: 40-5 9 mg/dL, Acceptable >59 mg/dL, High: Negative risk factor for coronary heart disease <40 mg/dL, Low: Positive risk factor for coronary heart disease Performed By: #### 2 4331-1 #### [facility] CLIA [id number] [address] [place] [address] LAB CLIA [id number] [address] [place] [address] #### [id number] #### [facility] CLIA [id number] [address] [place] [address] [place] Cholesterol in LDL [Mass/Vol] 155 mg/dL High <100 [facility] Comment on above: Order Comment: Speci men Type: BLOOD SPECIMEN Ordering Facility: [facility] Address: [address] [place] [address] Result Comment: <100 mg/dL, Optimal 100-129 mg/dL, Near optimal/above optimal 130-159 mg/dL, Borderline high 160-189 mg/dL, High >189 mg/dL, Very high Secondary prevention optimal LDL Cholesterol levels are recommended to be < 70 mg/dL Performed By: #### 2 4331-1 #### [facility] CLIA [id number] [address] [place] [address] LAB CLIA [id number] [address] [place] [address] #### [id number] #### [facility] CLIA [id number] [address] [place] [address] [place] Cholesterol in LDL/Cholesterol in HDL [Mass ratio] 3.44 {ratio} High <2.54 [facility] Comment on above: Order Comment: Specdeborah men Type: BLOOD SPECIMEN Ordering Facility: [facility] Address: [address] [place] [address] Result Comment: Duyen brown: 1. National Cholesterol Education Program ATP III Guideline At-A-Glance Quick Desk Reference: National Heart, Lung, and Blood [place]. National Institutes of Health. 2001: NIH Publication No. 01-3305. 2. An International Atherosclerosis Society position paper: global recommendations for the management of dyslipidemia: executive summary, Atherosclerosis. 2014: 232(2):410-413. Performed By: #### 2 4331-1 #### [facility] CLIA [id number] [address] [place] [address] OF [facility] CLIA [id number] [address] [place] [address] #### [id number] #### [facility] CLIA [id number] [address] [place] [address] [place] Cholesterol in VLDL [Mass/Vol] 40 mg/dL High <30 [facility] Comment on above: Order Comment: Deenai men Type: BLOOD SPECIMEN Ordering Facility: [facility] Address: [address] [place], [place] [address] Performed By: #### 2 4331-1 #### [facility] CLIA [id number] [address] [place] [address] [place] [facility] CLIA [id number] [address] [place] [address] #### [id number] #### [facility] CLIA [id number] [address] [place] [address] [place] Cholesterol non HDL [Mass/Vol] 195 mg/dL High <130 [facility] Comment on above: Order Comment: Speci men Type: BLOOD SPECIMEN Ordering Facility: [facility] Address: [address] [place] [address] Result Comment: <130 mg/dL, Optimal 130-159 mg/dL, Near optimal/above optimal 160-189 mg/dL, Borderline high 190-219 mg/dL, High >219 mg/dL, Very high Secondary prevention optimal non HDL Cholesterol levels are recommended to be <100 mg/dL Performed By: #### 2 4331-1 #### [facility] CLIA [id number] [address] [place] [address] [place] [facility] CLIA [id number] [address] [place] [address] #### [id number] #### [facility] CLIA [id number] [address] [place] [address] [place] Cholesterol.total/Ruby sterol in HDL [Mass ratio] 5.33 {ratio} High <5.10 [facility] Comment on above: Order Comment: Speci men Type: BLOOD SPECIMEN Ordering Facility: [facility] Address: [address] [place], [place] [address] Performed By: #### 2 4331-1 #### [facility] CLIA [id number] [address] [place] [address] [place] [facility] CLIA [id number] [address] [place] [address] #### [id number] #### [facility] CLIA [id number] [address] [place] [address] [place] FASTING TIME 12 hrs Normal [facility] Comment on above: Order Comment: Speci men Type: BLOOD SPECIMEN Ordering Facility: [facility] Address: [address] [place] [address] Performed By: #### 2 4331-1 #### [facility] CLIA [id number] [address] [place] [address] OF [facility] CLIA [id number] [address] [place] [address] #### 56226-3 #### [facility] CLIA [id number] [address] [place] [address] [place] Triglyceride [Mass/Vol] 199 mg/dL High <150 [facility] Comment on above: Order Comment: Speci men Type: BLOOD SPECIMEN Ordering Facility: [facility] Address: [address] [place] [address] Result Comment: <150 mg/dL, Normal 150-199 mg/dL, Borderline high 200-499 mg/dL, High >499 mg/dL, Very high Performed By: #### 2 4331-1 #### [facility] CLIA [id number] [address] [place] [address] [place] [facility] CLIA [id number] [address] [place] [address] #### [id number] #### [facility] CLIA [id number] [address] [place] [address] [place] CNOVon 07-01-2023 CNOV Office Visit (ENDCMN) ALMA DELIA PEARL ([id number]) 1985 F Date Time Provider Department 07/01/23 9:30 AM EDMUNDO DEVLIN During your visit today, we recorded the following information about you: Pulse Blood pressure Weight 87/minute 114/76 137 kg Jeanie Zimmer MA 07/01/2023 9:11 AM Signed Thank you for choosing the [facility] Department of Endocrinology, Diabetes and Metabolism. Did you know that you need to call 48 hours in advance of your scheduled visit, if you are unable to make your appointment? The Endocrinology and Metabolism [place] thanks you for your commitment, because patients not showing to their appointment results in a lost opportunity for patients to receive [facility] health care at the [facility]. To Cancel an appointment, please choose one of the following: - Call the Appointment Call Center at [phone] - From [employer], Go to Appointments - Cancel Appts If cancelling, consider your need to reschedule to prevent further delays in your care. To Schedule an appointment, please choose one of the following: - Call the Appointment Call Center at [phone] - From [employer], Go to Appointments - Request an Appt Edmundo Devlin MD 07/04/2023 9:44 AM Signed [facility] NEW VISIT REASON OF VISIT: weight management/obesity and management of its comorbidities REFERRING PHYSICIAN: self-referral HISTORY OF PRESENT ILLNESS: Age: [age] year old Patient comes today for evaluation and weight management. Other pertinent medical problems include: - Type 2 Diabetes (evidenced by HbA1c at 6.7% in 2021) - Hyperlipidemia - PCOS - Fibromyalgia - Major Depressive Disorder (has Bipolar 1 on chart by per patient she only has MDD, never had elaine or hypomania) - Anxiety) - DIETER (not using CPAP) Has been having issues with weight since age 17, tried multiple strategies before with no success, in 2020 was started on SQ Semaglutide for 10-11 months with no significant weight loss, did not tolerate it well (diarrhea, vomiting undigested food, heartburn). Switched to Tirzepatide in early 2022 and went up to 7.5 mg weekly which she has been on until 2 months ago that she stopped. Generally tolerated pretty well, has occasional acid reflux (controlled with PPI+H2 joanna) and occasional has vomiting of undigested food (once every 2 months, associated with abdominal pain, continues for a day before resolving). With tirzepatide lost 15 lbs and regained them after stopping 2 months ago. Reason for stopping was feeling abdominal pain, vomiting 2 times undigested food, and dizziness and feeling like she is going to pass out, and diarrhea. Improved with symptomatic treatment and resolved after about 2 days. 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 No Weakness: No Number of meals per day: 1 meal and 2 snacks Typical breakfast: Blevida crackers cranberry orange (1 package of 4 crackers) or cheerios with no milk Typical lunch: Lunchable (1 package) or Uncrustable with Pretzels and Fruit or carrots Typical dinner: Cheeseburgers, Stateless (takeout), enchiladas, chicken ferreira sliders Typical dessert/bedtime snacks: No Sugary beverages: No (Pepsi Zero with lunch), energy drinks (zero sugar) Type of diet: No specific diet Exercise -- No Quantity amount: NA Type: NA ?Sleep -- Sleeps 5 hours and wake up tired, or 13 hours with poor quality, not using CPAP Stress -- Always stressed Other pertinent Comorbidities - PreDM, Hyperlipidemia, PCOS, DIETER Social History Lives: No (more content not included)... Normal [facility] Office/Clini c Noteon 07-01-2023 Family Medicine Office/Clinic Note HPI Staff Pt is a 38 y.o. female presenting for sore throat. Pt of Pete Zacarias PHQ9-0 _Respiratory C/O: Nausea- but could be from the migraine sore throat: pain left side of throat, hurts to swallow, left side of neck painful Duration: _ 3-4 days ago Body aches: no Chest congestion: no Chills: no Cough: no Ear complaints: yes Eye itching/watering: yes Fever: no Headache: yes migraine x6 days maxxed out for month on ubrelvy- tylenol, ibuprofen- plans to call neurologist about this. Drove herself today, has phenergan R/S. Nasal congestion: yes Nasal discharge: yes Poor appetite: yes Reduced activity: yes Sinus pain/pressure: no Sneezing: no Sputum production: yes Wheezing: no Ill contacts: yes been around kids with strep Remedies tried: _ _ _ tylenol, ibuprofen History of Present Illness The staff HPI was reviewed and is accurate. Her strep in the office today was negative. She reports her mother has cancer and is undergoing treatment - she is worried she will give her a cold. She plans to take a covid test at home. Review of Systems PHQ Score Initial Depression Screen Score: 0 SCORE Physical Exam Vitals & Measurements T: 36.6 ?C(Temporal Artery) HR: 90(Peripheral) RR: 16 BP: 110/82 SpO2: 97% HT: 68 in HT: 173 cm WT: 137 kg WT: 301.4 lb BMI: 45.78 Maxillary and frontal sinus pressure/pain with palpation. Lungs: clear Throat: red, no exudate. Assessment/Plan 1. Sinusitis (J32.9: Chronic sinusitis, unspecified) Z-pack as prescribed Instructed to obtain otc decongestant and flonase 2. Sore throat (J02.9: Acute pharyngitis, unspecified) see 1 Ordered: azithromycin, = 1 packet(s), Oral, As Directed, as directed on package labeling, X 5 day(s), # 6 tab(s), Refills(s) 0, Pharmacy: [facility] #[id number], 173, cm, 07/01/23 12:09:00 EST, Height/Length Dosing, 137, kg, 07/01/23 12:09:00 EST, Weight Dosing fluconazole, 150 mg = 1 tab(s), Oral, Once, 1 tab when antibiotic starts, and 1 tab at the completion of the antibiotic, # 2 tab(s), Refills(s) 1, Pharmacy: [facility] #[id number], 173, cm, 07/01/23 12:09:00 EST, Height/Length Dosing, 137, kg, 07/01/23 12:09:... Rapid Strep POC 80401 3. Yeast infection (B37.9: Candidiasis, unspecified) Diflucan as directed to prevent yeast infection Ordered: fluconazole, 150 mg = 1 tab(s), Oral, Once, 1 tab when antibiotic starts, and 1 tab at the completion of the antibiotic, # 2 tab(s), Refills(s) 1, Pharmacy: [facility] #[id number], 173, cm, 07/01/23 12:09:00 EST, Height/Length Dosing, 137, kg, 07/01/23 12:09:... 4. BMI 45.0-49.9, adult (Z68.42: Body mass index [BMI] 45.0-49.9, adult) Continue to monitor Ordered: azithromycin, = 1 packet(s), Oral, As Directed, as directed on package labeling, X 5 day(s), # 6 tab(s), Refills(s) 0, Pharmacy: [facility] #[id number], 173, cm, 07/01/23 12:09:00 EST, Height/Length Dosing, 137, kg, 07/01/23 12:09:00 EST, Weight Dosing fluconazole, 150 mg = 1 tab(s), Oral, Once, 1 tab when antibiotic starts, and 1 tab at the completion of the antibiotic, # 2 tab(s), Refills(s) 1, Pharmacy: [facility] #[id number], 173, cm, 07/01/23 12:09:00 EST, Height/Length Dosing, 137, kg, 07/01/23 12:09:... 5. Morbid obesity (E66.01: Morbid (severe) obesity due to excess calories) Continue to monitor Ordered: azithromycin, = 1 packet(s), Oral, As Directed, as directed on package labeling, X 5 day(s), # 6 tab(s), Refills(s) 0, Pharmacy: [facility] #[id number], 173, cm, 07/01/23 12:09:00 EST, Height/Length Dosing, 137, kg, 07/01/23 12:09:00 EST, Weight Dosing fluconazole, 150 mg = 1 tab(s), Oral, Once, 1 tab when antibiotic starts, and 1 tab at the completion of the antibiotic, # 2 tab(s), Refills(s) 1, Pharmacy: [facility] #[id number], 173, cm, 07/01/23 12:09:00 EST, Height/Length Dosing, 137, kg, 07/01/23 12:09:... Follow-up No qualifying data available Patient Education Sinus Infection, Adult Problem List/Past Medical History Ongoing Amenorrhea Anxiety Bipolar disorder, current episode depressed, moderate BMI 45.0-49.9, adult Crohn disease Depression Dysmenorrhea Fibromyalgia Galactorrhea in female GERD (gastroesophageal reflux disease) Hyperlipidemia Lumbar back pain with radiculopathy affecting right lower extremity Lung nodule Migraine Mild intermittent asthma Morbid obesity Non-smoker DIETER (obstructive sleep apnea) PCOS (polycystic ovarian syndrome) Prediabetes Sinusitis Yeast infection Historical Bipolar crohns Diabetes mellitus Fibromyalgia Gastroesophageal reflux disease Migraine Procedure/Surgical History Colonoscopy (02/01/2018), EGD & Colonoscopy (06/01/2016), EGD & Colooscopy (07/31/2014), Colonoscopy (04/28/2012), Colonoscopy, Decompression of lumbar spine, laproscopy x3, Tonsillectomy. Medications Albuterol (Eqv-ProAir HFA) 90 mcg/inh inhalation aerosol, 2 puff(s), Inhalation, q6hr, 4 refills albuterol 0.083% Inh So (more content not included)... Normal [facility] Comment on above: Result Comment: Elec tronically Signed By: SAIRA YIP\.carlota\Date and Time Signed: 07/01/23 12:56 EST Patient Educationon 07-01-19 Patient Education Infectious Disease Sinus Infection, Adult A sinus infection, also called sinusitis, is inflammation of your sinuses. Sinuses are hollow spaces in the bones around your face. Your sinuses are located: ? Around your eyes. ? In the middle of your forehead. ? Behind your nose. ? In your cheekbones. Mucus normally drains out of your sinuses. When your nasal tissues become inflamed or swollen, mucus can become trapped or blocked. This allows bacteria, viruses, and fungi to grow, which leads to infection. Most infections of the sinuses are caused by a virus. A sinus infection can develop quickly. It can last for up to 4 weeks (acute) or for more than 12 weeks (chronic). A sinus infection often develops after a cold. What are the causes? This condition is caused by anything that creates swelling in the sinuses or stops mucus from draining. This includes: ? Allergies. ? Asthma. ? Infection from bacteria or viruses. ? Deformities or blockages in your nose or sinuses. ? Abnormal growths in the nose (nasal polyps). ? Pollutants, such as chemicals or irritants in the air. ? Infection from fungi. This is rare. What increases the risk? You are more likely to develop this condition if you: ? Have a weak body defense system (immune system). ? Do a lot of swimming or diving. ? Overuse nasal sprays. ? Smoke. What are the signs or symptoms? The main symptoms of this condition are pain and a feeling of pressure around the affected sinuses. Other symptoms include: ? Stuffy nose or congestion that makes it difficult to breathe through your nose. ? Thick yellow or greenish drainage from your nose. ? Tenderness, swelling, and warmth over the affected sinuses. ? A cough that may get worse at night. ? Decreased sense of smell and taste. ? Extra mucus that collects in the throat or the back of the nose (postnasal drip) causing a sore throat or bad breath. ? Tiredness (fatigue). ? Fever. How is this diagnosed? This condition is diagnosed based on: ? Your symptoms. ? Your medical history. ? A physical exam. ? Tests to find out if your condition is acute or chronic. This may include: ? Checking your nose for nasal polyps. ? Viewing your sinuses using a device that has a light (endoscope). ? Testing for allergies or bacteria. ? Imaging tests, such as an MRI or CT scan. In rare cases, a bone biopsy may be done to rule out more serious types of fungal sinus disease. How is this treated? Treatment for a sinus infection depends on the cause and whether your condition is chronic or acute. ? If caused by a virus, your symptoms should go away on their own within 10 days. You may be given medicines to relieve symptoms. They include: ? Medicines that shrink swollen nasal passages (decongestants). ? A spray that eases inflammation of the nostrils (topical intranasal corticosteroids). ? Rinses that help get rid of thick mucus in your nose (nasal saline washes). ? Medicines that treat allergies (antihistamines). ? Amqp-esx-duatpbk pain relievers. ? If caused by bacteria, your health care provider may recommend waiting to see if your symptoms improve. Most bacterial infections will get better without antibiotic medicine. You may be given antibiotics if you have: ? A severe infection. ? A weak immune system. ? If caused by narrow nasal passages or nasal polyps, surgery may be needed. Follow these instructions at home: Medicines ? Take, use, or apply cxuq-duj-ixcfcfw and prescription medicines only as told by your health care provider. These may include nasal sprays. ? If you were prescribed an antibiotic medicine, take it as told by your health care provider. Do not stop taking the antibiotic even if you start to feel better. Hydrate and humidify ? Drink enough fluid to keep your urine pale yellow. Staying hydrated will help to thin your mucus. ? Use a cool mist humidifier to keep the humidity level in your home above 50%. ? Inhale steam for 10?15 minutes, 3?4 times a day, or as told by your health care provider. You can do this in the bathroom while a hot shower is running. ? Limit your exposure to cool or dry air. Rest ? Rest as much as possible. ? Sleep with your head raised (elevated). ? Make sure you get enough sleep each night. General instructions ? Apply a warm, moist washcloth to your face 3?4 times a day or as told by your health care provider. This will help with discomfort. ? Use nasal saline washes as often as told by your health care provider. ? Wash your hands often with soap and water to reduce your exposure to germs. If soap and water are not available, use hand coremaker apprentice. ? Do not smoke. Avoid being around people who are smoking (secondhand smoke). ? Keep all follow-up visits. This is important. Contact a health care provider if: ? You have a fever. ? Your symptoms get (more content not included)... Normal [facility] Patient Educationon 06-07-19 Patient Education Endocrinology Blood Glucose Monitoring, Adult Monitoring your blood sugar (glucose) is an important part of managing your diabetes. Blood glucose monitoring involves checking your blood glucose as often as directed and keeping a log or record of your results over time. Checking your blood glucose regularly and keeping a blood glucose log can: ? Help you and your health care provider adjust your diabetes management plan as needed, including your medicines or insulin. ? Help you understand how food, exercise, illnesses, and medicines affect your blood glucose. ? Let you know what your blood glucose is at any time. You can quickly find out if you have low blood glucose (hypoglycemia) or high blood glucose (hyperglycemia). Your health care provider will set individualized treatment goals for you. Your goals will be based on your age, other medical conditions you have, and how you respond to diabetes treatment. Generally, the goal of treatment is to maintain the following blood glucose levels: ? Before meals (preprandial): 80?130 mg/dL (4.4?7.2 mmol/L). ? After meals (postprandial): below 180 mg/dL (10 mmol/L). ? A1C level: less than 7%. Supplies needed: ? Blood glucose meter. ? Test strips for your meter. Each meter has its own strips. You must use the strips that came with your meter. ? A needle to prick your finger (lancet). Do not use a lancet more than one time. ? A device that holds the lancet (lancing device). ? A journal or log book to write down your results. How to check your blood glucose Checking your blood glucose 1. Wash your hands for at least 20 seconds with soap and water. 2. Prick the side of your finger (not the tip) with the lancet. Do not use the same finger consecutively. 3. Gently rub the finger until a small drop of blood appears. 4. Follow instructions that come with your meter for inserting the test strip, applying blood to the strip, and using your blood glucose meter. 5. Write down your result and any notes in your log. Using alternative sites Some meters allow you to use areas of your body other than your finger (alternative sites) to test your blood. The most common alternative sites are the forearm, the thigh, and the palm of your hand. Alternative sites may not be as accurate as the fingers because blood flow is slower in those areas. This means that the result you get may be delayed, and it may be different from the result that you would get from your finger. Use the finger only, and do not use alternative sites, if: ? You think you have hypoglycemia. ? You sometimes do not know that your blood glucose is getting low (hypoglycemia unawareness). General tips and recommendations Blood glucose log ? Every time you check your blood glucose, write down your result. Also write down any notes about things that may be affecting your blood glucose, such as your diet and exercise for the day. This information can help you and your health care provider: ? Look for patterns in your blood glucose over time. ? Adjust your diabetes management plan as needed. ? Check if your meter allows you to download your records to a computer or if there is an carlo for the meter. Most glucose meters store a record of glucose readings in the meter. If you have type 1 diabetes: ? Check your blood glucose 4 or more times a day if you are on intensive insulin therapy with multiple daily injections (MDI) or if you are using an insulin pump. Check your blood glucose: ? Before every meal and snack. ? Before bedtime. ? Also check your blood glucose: ? If you have symptoms of hypoglycemia. ? After treating low blood glucose. ? Before doing activities that create a risk for injury, like driving or using machinery. ? Before and after exercise. ? Two hours after a meal. ? Occasionally between 2:00 a.m. and 3:00 a.m., as directed. ? You may need to check your blood glucose more often, 6?10 times per day, if: ? You have diabetes that is not well controlled. ? You are ill. ? You have a history of severe hypoglycemia. ? You have hypoglycemia unawareness. If you have type 2 diabetes: ? Check your blood glucose 2 or more times a day if you take insulin or other diabetes medicines. ? Check your blood glucose 4 or more times a day if you are on intensive insulin therapy. Occasionally, you may also need to check your glucose between 2:00 a.m. and 3:00 a.m., as directed. ? Also check your blood glucose: ? Before and after exercise. ? Before doing activities that create a risk for injury, like driving or using machinery. ? You may need to check your blood glucose more often if: ? Your medicine is being adjusted. ? Your diabetes is not well controlled. ? You are ill. General tips ? Make sure you always have your supplies with you. ? After you use a few boxes of test strips, adjust (calibrate) your blood glucose meter by following in (more content not included)... Normal [facility] Consent for Treatmenton 05-10 Consent for Treatment [id number] #1.00TIFF [facility] MA Mamm Diag w/CAD if perf a nd 3D Bilon 06-03-2023 MA Mamm Diag w/CAD if perf and 3D Johnathon Exam Date/Time: 06/03/2023 10:11 EST Reason for Exam: N64.52;Nipple discharge Report IMPRESSION: BIRADS 1 NEGATIVE, NORMAL INTERVAL FOLLOW-UP Follow-up: 12 MONTH RECALL Density: Scattered tissue. Vascular calcifications: Absent. EXAM: MA Mamm Diag w/CAD if perf and 3D Johnathon, US Breast Unilateral Lt Complete DATE: 06/03/2023 9:38 AM CLINICAL HISTORY: Nipple discharge, N64.52. COMPARISONS: 07/26/2020. TECHNIQUE: Full field routine 2D mammograms and 3D breast tomosynthesis were obtained of both breasts. An ultrasound was performed at all clock face positions and in the central/retroareolar region of the left breast. FINDINGS: There are no dominant masses, suspicious microcalcifications, areas of architectural distortion or other significant changes identified, by mammography. On ultrasound of the left breast, there are no dilated ducts, suspicious masses, cysts, lymphadenopathy, or other findings of concern identified. Dense Breast: No. CAD analysis was performed and used in the interpretation. Board Certified Radiologists. Accredited by the ACR and FDA. MAMMOGRAPHY IS VERY IMPORTANT TO YOUR HEALTH. THE CURRENT [place] [employer] OF [employer] AND [employer] GUIDELINES RECOMMENDS ANNUAL MAMMOGRAPHY BEGINNING AT AGE 40. THIS FACILITY UTILIZES A REMINDER SYSTEM TO ENSURE ALL PATIENTS RECEIVE REMINDER NOTIFICATIONS AT THE APPROPRIATE TIME BASED ON THE RECOMMENDATIONS OF THIS EXAM. \X09\ Report Ordering Provider: Aicha Dean FINAL REPORT Dictated: 06/03/2023 2:10 pm Hussein Oates MD Signed (Electronic Signature): 06/03/2023 2:10 pm Signed by: Hussein Oates MD Transcribed by: ABBY Technologist: NERY Assessment: BI-RADS Category 1-Negative Recommendation: Normal interval follow-up Normal [facility] US Breast Unilateral Lt Comp leteon 06-03-2023 US Breast Unilateral Lt Complete Exam Date/Time: 06/03/2023 10:32 EST Reason for Exam: N64.3;Nipple discharge Report PLEASE SEE MA Mamm Diag w/CAD if perf and 3D Johnathon REPORT DATED: 06/03/2023. Ordering Provider: Aicha Dean FINAL REPORT Dictated: 06/03/2023 2:11 pm Hussein Oates MD Signed (Electronic Signature): 06/03/2023 2:11 pm Signed by: Hussein Oates MD Transcribed by: ABBY Technologist: BEL Normal [facility] Family Medicine Office/Clini c Noteon 05-25-2023 Family Medicine Office/Clinic Note Chief Complaint Breast discomfort HPI Staff Reason for Visit: Bilateral breast discomfort. One time visit. PCP Rell. Pt comes in for a complaint of bilateral breast pain and drainage. She states she just finished her most recent menstral cycle and the pain has come down a little How Lon wks. Pain:Left: 5, Right:0 Feels Like: Sore Injury: No Breast feeding: No OTC/Rx meds: Tylenol Depression: Bipolar, screening not requried JOSE ROBERTO: 5 Last Labs done: 04/06/2023 Covid Vaccine: No Flu Vaccine: No Smoker: Non smoker History of Present Illness Alma Delia Pearl is a 38-year-old female who is here today for an acute visit. Galactorrhea The patient presents with a discolored left breast characterized by dark fluid drainage, along with some discomfort experienced in bilateral breasts. She states her left breast leaks when she squeezes it and experiences pain upon contact. When she presses her left breast, it is dark brown in color along with a slight blood. She had a leak a couple of months ago, but she does not remember what color it was. She confided in someone about her condition and ignored it. She states it is not warm to touch and confirms to experience a yeast infection. She has a large breast which bothers her. She has not seen any dimpling on the outside of the breast and her nipple does not retract inward. She denies experiencing fever and any biting or pulling. She feels a lump in her breast, which has been present for an extended period. She has mastitis and has done a mammogram test because of the lump, which was normal. She drinks a significant amount of caffeine. She denies any trauma. Polycystic ovary syndrome She has had 13 pregnancies; all were miscarriages and has PCOS issues. She has recently completed her menstrual cycle. Her menstruation has been regular for the last 3 months, but they are 38 to 42 days long in between cycles. She experiences heavy bleeding and painful menstruation. She has amenorrhea and has not done hormonal tests in years. She has been seeing her OB-ORDNANCE ARTIFICER HELPER, Dr. Fitzgerald and has an appointment on 05/23/2023. She previously had Mirena IUD, but her body rejected it. She is sexually active occasionally. She has had abnormal Pap smears, but not recently. Diabetes The patient is diabetic. Her previous hemoglobin A1c test was normal, and she has not checked it again since 03/2023. She is seeing an operator supply through [facility]. She has discontinued using Mounjaro for a month because she had severe diarrhea and gastroparesis. She has not experienced any gastrointestinal issues since discontinuing Mounjaro. Obesity The patient is morbidly obese. She has gained approximately 10 pounds in the last month and a half. Supplemental Information Patient denies polydipsia, polyuria, polyphagia, vision changes, sexual dysfunction, nausea, vomiting, diarrhea, bloating, lightheadedness, paresthesia, ulcerations, non-healing wounds, and current episodes of hypoglycemia. She has not checked her cholesterol levels recently. Past Medical History The patient has anxiety, depression, Crohn's, fibromyalgia, GERD, hyperlipidemia, low back pain, radiculopathy, mild intermittent asthma, migraine, obstructive sleep apnea, PCOS, and prediabetes. Past Surgical History She has undergone EGD, colonoscopy, decompression of the lumbar spine, laparoscopy, and tonsillectomy. The patient has a family history of depression, heart failure, diabetes, hepatitis C, cervical cancer, lung cancer and bipolar disorder. She denies any family history of breast cancer She has been taking Rexulti for an extended period of time and a few other psych medications (second generation antipsych/ anticonvulsant)?. She is on Emgality for her migraines. She is on any new medications. = a new one a few months ago Vital Signs Blood pressure is 116/70 mmHg, 18 breaths per minute respiratory rate, 91 beats per minute heart rate, and 97 percent SpO2 saturation. Weight is 298 pounds. BMI is 45. Review of Systems The pertinent positive and negative findings are as noted in the HPI. Physical Exam Vitals & Measurements T: 36.8 ?C(Oral) HR: 91(Peripheral) RR: 18 BP: 116/70 SpO2: 97% HT: 68 in HT: 173 cm WT: 135.7 kg WT: 298.54 lb BMI: 45.34 General: Morbidly obese, middle-aged female, pleasant, in no distress, calm and resting. ENMT: oral mucosa moist?, no? pharyngeal erythema or exudate Breast: Large pendulous breast with mild erythema that is well healing. Underneath the bilateral breast, there is a very scant amount of 1 drop of blood on a tissue. It appeared brown in color coming from the left nipple. The nipple is not inverted, it appears normal, and it is nontender. There is a mild breast lump that has been there before on the left medial 9 o'clock to 8 o'clock in position area of the left breast. Breasts were nontender, no erythema, no edema, no warmth, no evidence of infection, and no obvious visible drainage unless the patient (more content not included)... Normal [facility] Comment on above: Result Comment: Elec tronically Signed By: Aicha Magana\.br\Date and Time Signed: 05/25/23 03:21 EST\.br\Electronically Co-Signed By: Leyla Trujillo\.br\Date and Time Co-Signed: 05/20/23 16:26 EST Consultation Noteon 05-21-19 Consultation Note [id number]# 1.00TIFF Normal [facility] Ambulatory Visit Summaryon 0 05-20-2023 Ambulatory Visit Summary ALMA DELIA PEARL Kasi :1985 Visit Date:05/20/2023 Ambulatory Visit Instructions Your Diagnosis Dysmenorrhea PCOS (polycystic ovarian syndrome) Galactorrhea in female Body mass index [BMI] 45.0-49.9, adult Morbid obesity with BMI of 45.0-49.9, adult Nipple discharge These Are Your Goals Diabetes Mellitus-Improve glucose levels Interventions: Complete lab work as ordered. Increase daily exercise to 60 minutes a day. Review education pamphlets/books. Take a fasting glucose every morning. Obesity-Lose weight current weight 286.2 Interventions: Increase daily exercise to 60 minutes a day Make better food choices. Review balance diet pamphlet. Chronic pain-decrease back pain. Interventions: Continue with appointments at [facility]. Increase daily exercise Lose weight Take Medications as Prescribed Your Care Team Attending Physician - Aicha Magana Primary Care Physician - Rell FERRER, Irasema Medley This Is Your Medications List Misc Prescription (Nebulizer Machine) Misc Prescription (Nebulizer Machine) Misc Prescription (Nebulizer Tubing and Mouthpiece Kit) Misc Prescription (Nebulizer and supplies) Misc Prescription (Test strips-True Metrix) Misc Prescription (lancets) Misc Prescription (na) albuterol (Albuterol (Eqv-ProAir HFA) 90 mcg/inh inhalation aerosol) albuterol (albuterol 0.083% Inh Padma 3 mL) ascorbic acid (Vitamin C) brexpiprazole (Rexulti 1 mg oral tablet) brexpiprazole (Rexulti 3 mg oral tablet) buPROPion (buPROPion 100 mg ER Tab) bupropion-dextrometh orphan (Auvelity 45 mg-105 mg oral tablet, extended release) busPIRone (busPIRone 15 mg Tab) ergocalciferol (Vitamin D) famotidine (Pepcid 20 mg Tab) galcanezumab (Emgality Prefilled Pen 120 mg/mL subcutaneous solution) hydrOXYzine (hydrOXYzine pamoate 25 mg Cap) loperamide (Imodium A-D EZ Chews 2 mg oral tablet, chewable) magnesium oxide multivitamin (Multi Vitamin+) multivitamin (Vitamin B Complex oral capsule) nystatin topical (nystatin Top 100,000 units/g Crm 15 gram) omeprazole (omeprazole 10 mg Cap-EC) omeprazole (omeprazole 40 mg Cap-DR) ondansetron (Zofran 4 mg Tab) ondansetron (Zofran ODT 4 mg Tab-Dis) pregabalin (pregabalin 25 mg Cap) pregabalin (pregabalin 75 mg Cap) promethazine (Phenergan 12.5 mg Supp) promethazine (Phenergan 25 mg Supp) tirzepatide (Mounjaro) tizanidine (tiZANidine 4 mg Tab) trazodone (traZODONE 50 mg Tab) ubrogepant (Ubrelvy 100 mg oral tablet) verapamil (verapamil 120 mg ER Tab) Procedures Performed Colonoscopy (02/01/2018), EGD & Colonoscopy (06/01/2016), EGD & Colooscopy (07/31/2014), Colonoscopy (04/28/2012), Colonoscopy, Decompression of lumbar spine, laproscopy x3, Tonsillectomy. Discharge Vitals Temperature (Oral) 36.8 ?C Heart Rate (Peripheral) 91 Respiratory Rate 18 Blood Pressure 116/70 Height 173 cm Height 68 in Weight 135.7 kg Weight 298.54 lb BMI 45.34 What to do next Scheduled Follow-Up Appointments Tuesday 4:20 PM EST With: Irasema Love Where: [facility] Invalid Interpretation Code [address], [place] [address]- \.br\ You Need to Complete the Following\.br \ Beta hCG Quantitative, Blood, Routine collect, 05/20/23, Order for future visit, Lab Collect, Nipple discharge [facility] CHEMISTRYOrdered By: SYSTEM SYSTEM on 05-20-2023 U Microalb microgram/mL Normal 0.0 - 19.0 mcg/mL Remisol Chem Patient Educationon 05-20-19 Patient Education Endocrinology Galactorrhea Galactorrhea is an abnormal milky discharge from the breast. The discharge may come from one or both nipples. It is different from the normal milk produced in nursing mothers. Galactorrhea usually occurs in women, but it can sometimes affect men. Galactorrhea can be a sign of something more serious, such as diseases of the kidney or thyroid, or problems with the pituitary gland. Your health care provider may do various tests to help determine the cause. What are the causes? This condition may be caused by: ? Irritation of the breast, which can result from injury, stimulation during sexual activity, or clothes rubbing against the nipple. ? Certain prescription medicines. ? control pills. ? Certain herbal supplements. ? Changes in hormone levels. ? Stress. Sometimes the cause is not known. What are the signs or symptoms? The main symptom of this condition is nipple discharge. The discharge is often white, yellow, or green, and can be seen in one or both breasts. The discharge may flow without stopping, or it may stop and start again. How is this diagnosed? This condition may be diagnosed based on: ? Collecting and testing the discharge. ? Blood tests. ? Imaging tests. ? Tests to rule out other conditions. How is this treated? In many cases, galactorrhea will go away without treatment. In this case, your health care provider will monitor your condition to make sure that it goes away. When treatment is required, your health care provider will treat the underlying cause, such as irritation of the nipples or changes in hormone levels. Certain medicines may be stopped, if they are causing your symptoms. Follow these instructions at home: Breast care ? Watch your condition for any changes. ? Do not squeeze your breasts or nipples. ? Avoid breast stimulation during sexual activity. ? Perform a breast self-exam once a month. Doing this more often can irritate your breasts. ? Avoid clothes that rub on your nipples. ? Use breast pads to absorb the discharge. ? Wear a breast binder or a support bra to help prevent clothes from rubbing on your nipples. General instructions ? Take pelo-rhl-jtxkihp and prescription medicines only as told by your health care provider. ? Keep all follow-up visits. This is important. Contact a health care provider if: ? You develop hot flashes, vaginal dryness, or a lack of sexual desire. ? You stop having menstrual periods, or they become irregular or far apart. ? You have headaches. ? You have vision problems. Get help right away if: ? You have breast discharge that is bloody or pus-like. ? You have breast pain. ? You feel a lump in your breast. ? You have wrinkling or dimpling on your breast. ? You notice that your breast becomes red and swollen. Summary ? Galactorrhea is an abnormal milky discharge from the breast. The fluid may come from one or both nipples and is often white, yellow, or green. ? Galactorrhea may be caused by various things, such as irritation of the nipples, medicines, or changes in hormone levels. ? Galactorrhea often goes away without treatment. However, it also may be a sign of something more serious, such as diseases of the kidney or thyroid, or problems with the pituitary gland. ? Get help right away if you have discharge that is bloody or pus-like, if you have breast pain or a lump, or if you have skin changes on your breast. This information is not intended to replace advice given to you by your health care provider. Make sure you discuss any questions you have with your health care provider. Document Revised: 02/23/2021 Document Reviewed: 02/23/2021 [employer] Patient Education ? 2022 [employer]. Obstetrics and Gynecology Polycystic Ovary Syndrome Polycystic ovarian syndrome (PCOS) is a common hormonal disorder among women of reproductive age. In most women with PCOS, small fluid-filled sacs (cysts) grow on the ovaries. PCOS can cause problems with menstrual periods and make it hard to get and stay . If this condition is not treated, it can lead to serious health problems, such as diabetes and heart disease. What are the causes? The cause of this condition is not known. It may be due to certain factors, such as: ? Irregular menstrual cycle. ? High levels of certain hormones. ? Problems with the hormone that helps to control blood sugar (insulin). ? Certain genes. What increases the risk? You are more likely to develop this condition if you: ? Have a family history of PCOS or type 2 diabetes. ? Are overweight, eat unhealthy foods, and are not active. These factors may cause problems with blood sugar control, which can contribute to PCOS or PCOS symptoms. What are the signs or symptoms? Symptoms of this condition include: ? Ovarian cysts and sometimes pelvic pain. ? Menstrual periods that are not regular or are (more content not included)... Normal [facility] U Microalbon 05-20-2023 U Microalb <2.0 Normal 0.0-19.0 [facility] Comment on above: Performed By: #### 1 [id number] #### [facility] [address] [place] [address] CHEMISTRYOrdered By: SYSTEM SYSTEM on 04-06-2023 Albumin [Mass/Vol] 3.9 g/dL Normal 3.3 - 5.0 gm/dL [facility] Remisol Albumin/Globulin [Mass ratio] 1.2 {ratio} Normal 1.1 - 2.2 [facility] Remisol ALP [Catalytic activity/Vol] 51 [iU]/d Normal 21 - 98 Int._Unit/L [facility] Remisol ALT No additional P-5'-P [Catalytic activity/Vol] 22 [iU]/d Normal 6 - 46 Int._Unit/L [facility] Remisol Anion gap [Moles/Vol] 12 mmol/L Normal 6 - 16 mEq/L F [facility] Remisol AST [Catalytic activity/Vol] 19 [iU]/d Normal 5 - 43 Int._Unit/L [facility] Remisol Bilirubin [Mass/Vol] 0.4 mg/dL Normal 0.0 - 1 .1 mg/dL [facility] Remisol Bilirubin.direct [Mass/Vol] mg/dL Normal 0.1 - 0.4 mg/dL [facility] Remisol Bilirubin.indirect [Mass or moles/Vol] Unable to Calculate mg/dL Invalid Interpretation Code 0.1 - 0.9 mg/dL [facility] Remisol Calcium [Mass/Vol] 8.6 mg/dL Low 8.9 - 11. 1 mg/dL [facility] Remisol Chloride [Moles/Vol] 108 mmol/L Normal 101 - 1 11 mmol/L [facility] Remisol CO2 [Moles/Vol] 22 mmol/L Normal 21 - 31 mmol/L FT Remisol Creatinine [Mass/Vol] 0.9 mg/dL Normal 0.5 - 1.3 mg/dL [facility] Remisol GFR/1.73 sq M.predicted among non-blacks MDRD (S/P/Bld) [Vol rate/Area] 84 mL/min/1.73 m2 Normal >=59mL/min/1. 73 m2 [facility] [place] Chem S Comment on above: Interpretive Data: C hronic kidney disease could be indicated at eGFR's of less than 60 mL/min/1.73m2. Kidney failure is indicated at less than 15 mL/min/1.73m2. Globulin (S) [Mass/Vol] 3.4 g/dL Normal 1.4 - 4.0 gm/dL FT Remisol Glucose [Mass/Vol] 126 mg/dL Normal 55 - 199 mg/dL [facility] Remisol Comment on above: Interpretive Data: I f this glucose result represents a fasting glucose, interpretation should refer to the following reference range: 55-99 mg/dL Lipase [Catalytic activity/Vol] 31 U/L Normal 13 - 58 unit/L [facility] Remisol Potassium [Moles/Vol] 3.9 mmol/L Normal 3.5 - 5.3 mmol/L [facility] Remisol Protein [Mass/Vol] 7.3 g/dL Normal 6.0 - 7.8 gm/dL [facility] Remisol Sodium [Moles/Vol] 138 mmol/L Normal 135 - 145 mmol/L FT Remisol Urea nitrogen [Mass/Vol] 13 mg/dL Normal 5 - 21 mg/dL [facility] Remisol Urea nitrogen/Creatinine [Mass ratio] 14 mg/mg Normal 10 - 20 [facility] Remisol HEMATOLOGYOrdered By: SYSTEM SYSTEM on 04-06-2023 Basophils/100 WBC (Bld) 0.2 % Normal 0.0 - 2.0 % [facility] HemeAutoSS Basophils/Leukocytes Auto (Bld) [Pure # fraction] 0.0 E9/L Normal 0.0 - 0.2 E9/L [facility] HemeAutoSS Eosinophils/100 WBC (Bld) 1.0 % Normal 0.0 - 8.0 % [facility] HemeAutoSS Eosinophils/Leukocytes Auto (Bld) [Pure # fraction] 0.1 E9/L Normal 0.0 - 0.5 E9/L [facility] HemeAutoSS Lymphocytes/100 WBC (Bld) 6.0 % Low 14.0 - 50.0 % [facility] HemeAutoSS Lymphocytes/Leukocytes Auto (Bld) [Pure # fraction] 0.7 E9/L Low 1.0 - 4.0 E9/L [facility] HemeAutoSS Monocytes/100 WBC (Bld) 4.0 % Normal 4.0 - 14.0 % [facility] HemeAutoSS Monocytes/Leukocytes Auto (Bld) [Pure # fraction] 0.4 E9/L Normal 0.2 - 1.0 E9/L [facility] HemeAutoSS Neutrophils/100 WBC (Bld) 88.8 % High 36.0 - 75.0 % [facility] HemeAutoSS Neutrophils/Leukocytes Auto (Bld) [Pure # fraction] 9.7 E9/L High 2.0 - 7.5 E9/L [facility] HemeAutoSS HEMATOLOGYOrdered By: Govind Erazo on 04-06-2023 Erythrocyte distribution width (RBC) [Ratio] 15.0 % High 10.9 - 14.2 % [facility] HemeAutoSS Hematocrit (Bld) [Volume fraction] 39.0 % Normal 34.0 - 46.0 % [facility] HemeAutoSS Hemoglobin (Bld) [Mass/Vol] 13.0 g/dL Normal 12.0 - 16.0 gm/dL [facility] HemeAutoSS MCH (RBC) [Entitic mass] 27.4 pg Normal 27.0 - 34.0 pg [facility] HemeAutoSS MCHC (RBC) [Mass/Vol] 33.4 g/dL Normal 31.4 - 36.0 gm/dL [facility] HemeAutoSS MCV (RBC) [Entitic vol] 82.1 fL Normal 80.0 - 100.0 fL [facility] HemeAutoSS Platelet mean volume (Bld) [Entitic vol] 8.4 fL Normal 6.4 - 10.8 fL [facility] HemeAutoSS Platelets (Bld) [#/Vol] 205.0 E9/L Normal 150. 0 - 500.0 E9/L [facility] HemeAutoSS RBC (Bld) [#/Vol] 4.7 E12/L Normal 4.3 - 5.9 E12/L [facility] HemeAutoSS WBC corrected for nucl RBC Auto (Bld) [#/Vol] 10.9 E9/L Normal 4.0 - 11.0 E9/L [facility] HemeAutoSS URINALYSISOrdered By: Swetha Martinez on 04-06-2023 Bacteria LM Ql (Urine sed) Trace /HPF Normal Trace/HPF [facility] UA Auto SS Bilirubin Ql (U) 1+ *ABN* (04/06/23 3:19 PM) Invalid Interpretation Code Negative [facility] UA Auto SS Clarity (U) Cloudy *ABN* (04/06/23 3:19 PM) Invalid Interpretation Code Clear [facility] UA Auto SS Color (U) Yellow (04/06/23 3:19 PM) Normal Yellow [facility] UA Auto SS Crystals LM Ql (Urine sed) Present (04/06/23 3:19 PM) Normal [facility] UA Auto SS Epithelial cells.squamous LM.HPF (Urine sed) [#/Area] 3-4 /HPF Normal 0-2/HPF [facility] UA Aut o SS Glucose Test strip (U) [Mass/Vol] Negative (04/06/23 3:19 PM) Normal Negative [facility] UA Auto SS Hemoglobin Ql (U) 3+ *ABN* (04/06/23 3:19 PM) Invalid Interpretation Code Negative [facility] UA Auto SS Ketones (U) [Mass/Vol] Trace *NA* (04/06/23 3:19 PM) Invalid Interpretation Code Negative [facility] UA Auto SS [place].plasma/[place]. RBC (Bld) [Mass ratio] 4-20 /HPF Normal 0-3/HPF [facility] UA A uto SS Nitrite Ql (U) Negative (04/06/23 3:19 PM) Normal Negative [facility] UA Auto SS pH (U) 5.5 *NA* (04/06/23 3:19 PM) Invalid Interpretation Code 5.0 - 9.0 [facility] UA Auto SS Protein (U) [Mass/Vol] 2+ *ABN* (04/06/23 3:19 PM) Invalid Interpretation Code Negative [facility] UA Auto SS Specific gravity (U) [Rel density] >=1.030 *NA* (04/06/23 3:19 PM) Invalid Interpretation Code 1.005 - 1.030 [facility] UA Auto SS UA Spec Desc Clean Catch (04/06/23 3:19 PM) Normal [facility] [place] UA Auto SS Urobilinogen Qn (U) [id number] {Dre'U}/dL Normal 0.0 - 1.0 EU/dL [facility] [place] UA Auto SS WBC Auto Ql (U) Negative (04/06/23 3:19 PM) Normal Negative [facility] [place] UA Auto SS WBC LM.HPF (Urine sed) [#/Area] 0-5 /HPF Normal 0-5/HPF [facility] [place] UA Auto SS Yeast LM Ql (Urine sed) 2+ (04/06/23 3:19 PM) Normal [facility] [place] UA Auto SS Family Medicine Office/Clini c Noteon 03-14-2023 Family Medicine Office/Clinic Note Chief Complaint Here for URI,tested x 2 for covid both negative. No fevers, denies earaches, bodyaches, orsore throat.. only cough and congestion. Has been using OTC combo Cough congestion medication. HPI Staff Asthma: Just started this past week using inhaler and nebulizer at home daily Assessment of control: Frequency of daytime attacks: 0_ Frequency of nighttime attacks: 0 Rescue therapy use since last visit : just this week _ Currently having attack: yes _ Refills needed: inhalers and nebulizer medication as they have all hasn't needed until now. I have reviewed and verified the staff HPI to be accurate for this encounter. Review of Systems PHQ Score Initial Depression Screen Score: 0 Physical Exam Vitals & Measurements T: 36.6 ?C(Temporal Artery) HR: 90(Peripheral) RR: 20 BP: 136/80 SpO2: 98% HT: 68 in HT: 173 cm WT: 132.2 kg WT: 290.84 lb BMI: 44.17 Assessment/Plan 1. Mild intermittent asthma (J45.20: Mild intermittent asthma, uncomplicated) Ordered: albuterol, 2 puff(s), Inhalation, q6hr, 18 gm, Refill(s) 4, [facility] #[id number], 173, cm, 03/14/23 16:23:00 EST, Height/Length Dosing, 132.2, kg, 03/14/23 16:23:00 EST, Weight Dosing azithromycin, = 1 packet(s), Oral, As Directed, as directed on package labeling, X 5 day(s), # 6 tab(s), Refills(s) 0, Pharmacy: [facility] #[id number], 173, cm, 03/14/23 16:23:00 EST, Height/Length Dosing, 132.2, kg, 03/14/23 16:23:00 EST, Weight Dosing Follow-up No qualifying data available Patient Education Asthma, Adult, Crtg-ws-Dvgm Cough, Adult, Ebrc-cp-Oyzi Problem List/Past Medical History Ongoing Amenorrhea Anxiety Bipolar disorder, current episode depressed, moderate BMI 45.0-49.9, adult Crohn disease Depression Fibromyalgia GERD (gastroesophageal reflux disease) Hyperlipidemia Lumbar back pain with radiculopathy affecting right lower extremity Lung nodule Migraine Mild intermittent asthma Morbid obesity Non-smoker DIETER (obstructive sleep apnea) PCOS (polycystic ovarian syndrome) Prediabetes Routine adult health maintenance Yeast dermatitis Historical Bipolar crohns Fibromyalgia Procedure/Surgical History Colonoscopy (02/01/2018), EGD & Colonoscopy (06/01/2016), EGD & Colooscopy (07/31/2014), Colonoscopy (04/28/2012), Colonoscopy, Decompression of lumbar spine, laproscopy x3, Tonsillectomy. Medications Albuterol (Eqv-ProAir HFA) 90 mcg/inh inhalation aerosol, 2 puff(s), Inhalation, q6hr, 4 refills albuterol 0.083% Inh Padma 3 mL, 0.083% - 3mL dosing units, Inhalation, q4hr, PRN, 11 refills azithromycin 250 mg Tab, 1 packet(s), Oral, As Directed buPROPion 100 mg ER Tab Imodium A-D EZ Chews 2 mg oral tablet, chewable, 2 mg= 1 tab(s), Chewed, q4hr, PRN lancets, See Instructions, 3 refills magnesium oxide, Oral Mounjaro, SubCutaneous, qWeek Multi Vitamin+, 1 gummy, Chewed, Daily na, See Instructions, 6 refills Nebulizer and supplies, See Instructions Nebulizer Machine, See Instructions Nebulizer Machine, See Instructions Nebulizer Tubing and Mouthpiece Kit, See Instructions nystatin Top 100,000 units/g Crm 15 gram, 1 carlo, Topical, BID, 1 refills omeprazole 10 mg Cap-EC, 10 mg= 1 cap(s), Oral, BID, 1 refills Pepcid 20 mg Tab, 20 mg= 1 tab(s), Oral, Daily Phenergan 25 mg Supp, 25 mg= 1 supp, Rectal, q6hr, PRN pregabalin 75 mg Cap, 75 mg= 1 cap(s), Oral, BID Rexulti 1 mg oral tablet Test strips-True Metrix, See Instructions, 2 refills tiZANidine 4 mg Tab, 4 mg= 1 tab(s), Oral, TID, 1 refills traZODONE 50 mg Tab, 50 mg= 1 tab(s), Oral, Once a day (at bedtime) Vitamin B Complex oral capsule, 1 tab(s), Oral, Daily Vitamin C Vitamin D Zofran 4 mg Tab, 4 mg= 1 tab(s), Oral, q8hr, PRN Allergies Dairy (unknown) Eggs (Vomiting) Imitrex (Breathing, Chest tightness, unknown) Latex (Rash, Hives) Latuda (Agitation, Intolerance) Pyridium (Pain) codeine (Childhood) morphine (rash, SOB) penicillin (Childhood) Social History Alcohol - Denies Alcohol Use, 06/01/2019 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 Living situation: Home/Independent., 05/25/2019 Substance Abuse - Denies Substance Abuse, 06/01/2019 Tobacco - Denies Tobacco Use, 02/16/2019 Never (less than 100 in lifetime) Tobacco Use:. Never Smokeless Tobacco Use:. Household tobacco concerns: No., 03/14/2023 Family History Bipolar: Mother and Sister. Depression: Sister. Diabetes mellitus type 2: Mother. Heart disease: Mother. Heart failure: Mother. Hepatitis C: Mother. Primary malignant neoplasm of female genital organ: Mother. Immunizations Vaccine Date Status Comments influenza virus vaccine, inactivated - Not Given Postpone due to refusal allergic to eggs SARS-CoV-2 mRNA (tozinameran 5y-11y) vac - Not Given Postpone due to refusal SARS-CoV-2 mRNA (tozinameran 5y-11y) vac - Not Given Postpone due to refusal SARS-CoV-2 mRN (more content not included)... Normal [facility] Comment on above: Result Comment: Elec tronically Signed By: ANNABEL HERNANDEZ CNP\.br\Date and Time Signed: 03/14/23 21:04 EST Patient Educationon 03-14-20 23 Patient Education ENT Cough, Adult A cough helps to clear your throat and lungs. A cough may be a sign of an illness or another medical condition. An acute cough may only last 2?3 weeks, while a chronic cough may last 8 or more weeks. Many things can cause a cough. They include: ? Germs (viruses or bacteria) that attack the airway. ? Breathing in things that bother (irritate) your lungs. ? Allergies. ? Asthma. ? Mucus that runs down the back of your throat (postnasal drip). ? Smoking. ? Acid backing up from the stomach into the tube that moves food from the mouth to the stomach (gastroesophageal reflux). ? Some medicines. ? Lung problems. ? Other medical conditions, such as heart failure or a blood clot in the lung (pulmonary embolism). Follow these instructions at home: Medicines ? Take wlrv-arh-vlljjjk and prescription medicines only as told by your doctor. ? Talk with your doctor before you take medicines that stop a cough (cough suppressants). Lifestyle ? Do not smoke, and try not to be around smoke. Do not use any products that contain nicotine or tobacco, such as cigarettes, e-cigarettes, and chewing tobacco. If you need help quitting, ask your doctor. ? Drink enough fluid to keep your pee (urine) pale yellow. ? Avoid caffeine. ? Do not drink alcohol if your doctor tells you not to drink. General instructions ? Watch for any changes in your cough. Tell your doctor about them. ? Always cover your mouth when you cough. ? Stay away from things that make you cough, such as perfume, candles, campfire smoke, or cleaning products. ? If the air is dry, use a cool mist vaporizer or humidifier in your home. ? If your cough is worse at night, try using extra pillows to raise your head up higher while you sleep. ? Rest as needed. ? Keep all follow-up visits as told by your doctor. This is important. Contact a doctor if: ? You have new symptoms. ? You cough up pus. ? Your cough does not get better after 2?3 weeks, or your cough gets worse. ? Cough medicine does not help your cough and you are not sleeping well. ? You have pain that gets worse or pain that is not helped with medicine. ? You have a fever. ? You are losing weight and you do not know why. ? You have night sweats. Get help right away if: ? You cough up blood. ? You have trouble breathing. ? Your heartbeat is very fast. These symptoms may be an emergency. Do not wait to see if the symptoms will go away. Get medical help right away. Call your local emergency services (911 in the [place] Do not drive yourself to the hospital. Summary ? A cough helps to clear your throat and lungs. Many things can cause a cough. ? Take cbvk-isj-apavxdn and prescription medicines only as told by your doctor. ? Always cover your mouth when you cough. ? Contact a doctor if you have new symptoms or you have a cough that does not get better or gets worse. This information is not intended to replace advice given to you by your health care provider. Make sure you discuss any questions you have with your health care provider. Document Revised: 06/13/2020 Document Reviewed: 05/14/2019 [employer] Patient Education ? 2022 [employer]. Pulmonary Medicine Asthma, Adult Asthma is a condition that causes swelling and narrowing of the airways. These are the passages that lead from the nose and mouth down into the lungs. When asthma symptoms get worse it is called an asthma attack or flare. This can make it hard to breathe. Asthma flares can range from minor to life-threatening. There is no cure for asthma, but medicines and lifestyle changes can help to control it. What are the causes? It is not known exactly what causes asthma, but certain things can cause asthma symptoms to get worse (triggers). What can trigger an asthma attack? ? Cigarette smoke. ? Mold. ? Dust. ? Your pet's skin flakes (dander). ? Cockroaches. ? Pollen. ? Air pollution (like household rag sorter and cutter, wood smoke, smog, or chemical odors). What are the signs or symptoms? ? Trouble breathing (shortness of breath). ? Coughing. ? Making high-pitched whistling sounds when you breathe, most often when you breathe out (wheezing). ? Chest tightness. ? Tiredness with little activity. ? Poor exercise tolerance. How is this treated? ? Controller medicines that help prevent asthma symptoms. ? Fast-acting reliever or rescue medicines. These give short-term relief of asthma symptoms. ? Allergy medicines if your attacks are brought on by allergens. ? Medicines to help control the body's defense (immune) system. ? Staying away from the things that cause asthma attacks. Follow these instructions at home: Avoiding triggers in your home ? Do not allow anyone to smoke in your home. ? Limit use of fireplaces and wood stoves. ? Get rid of pests (such as roaches and mice) and their droppings (more content not included)... Normal [facility] Outside Diabetes Eye Examon 01-06-2023 Outside Diabetes Eye Exam [id number] #[id number]:[id number] Normal [facility] Ambulatory Visit Summaryon 0 12-21-2022 Ambulatory Visit Summary ALMA DELIA PEARL :1985 Visit Date:12/21/2022 Ambulatory Visit Instructions Your Diagnosis Prediabetes Routine adult health maintenance Yeast dermatitis Crohn disease BMI 45.0-49.9, adult Morbid obesity These Are Your Goals Diabetes Mellitus-Improve glucose levels Interventions: Complete lab work as ordered. Increase daily exercise to 60 minutes a day. Review education pamphlets/books. Take a fasting glucose every morning. Obesity-Lose weight current weight 286.2 Interventions: Increase daily exercise to 60 minutes a day Make better food choices. Review balance diet pamphlet. Chronic pain-decrease back pain. Interventions: Continue with appointments at [facility] pain clinic. Increase daily exercise Lose weight Take Medications as Prescribed Your Care Team Attending Physician - Rell FERRER, Irasema Medley Primary Care Physician - VIKTORIA MACIEL, SAUD Vidal This Is Your Medications List Misc Prescription (Nebulizer Machine) Misc Prescription (Nebulizer Machine) Misc Prescription (Nebulizer Tubing and Mouthpiece Kit) Misc Prescription (Nebulizer and supplies) Misc Prescription (Test strips-True Metrix) Misc Prescription (lancets) Misc Prescription (na) albuterol (albuterol 0.083% Inh Padma 3 mL) ascorbic acid (Vitamin C) brexpiprazole (Rexulti 1 mg oral tablet) buPROPion (buPROPion 100 mg ER Tab) ergocalciferol (Vitamin D) famotidine (Pepcid 20 mg Tab) loperamide (Imodium A-D EZ Chews 2 mg oral tablet, chewable) magnesium oxide multivitamin (Multi Vitamin+) multivitamin (Vitamin B Complex oral capsule) nystatin topical (nystatin Top 100,000 units/g Crm 15 gram) omeprazole (omeprazole 10 mg Cap-EC) ondansetron (Zofran 4 mg Tab) pregabalin (pregabalin 75 mg Cap) promethazine (Phenergan 25 mg Supp) tirzepatide (Mounjaro) tizanidine (tiZANidine 4 mg Tab) trazodone (traZODONE 50 mg Tab) Procedures Performed Colonoscopy (02/01/2018), EGD & Colonoscopy (06/01/2016), EGD & Colooscopy (07/31/2014), Colonoscopy (04/28/2012), Colonoscopy, Decompression of lumbar spine, laproscopy x3, Tonsillectomy. Discharge Vitals Temperature (Oral) 36.3 ?C Heart Rate (Peripheral) 80 Blood Pressure 116/78 Height 173 cm Height 68 in Weight 137.9 kg Weight 303.38 lb BMI 46.08 What to do next Scheduled Follow-Up Appointments Tuesday 10:20 AM EST With: Irasema Love Where: [facility] Invalid Interpretation Code [address], [facility] [place] [address]- \.br\ You Need to Schedule the Following Appointments\ .br\ Follow Up with Irasema Love When: In 6 months\.br\ Comments:\.br \ f/u preDM, CCM\.br\ Where:\.br\ [address], [address]\ [place] [address]-\.br\ \.br\ You Need to Complete the Following\.br \ HgbA1c, Blood, Routine collect, 12/21/22, Order for future visit, Lab Collect, Prediabetes [facility] Family Medicine Office/Clini c Noteon 12-21-2022 Family Medicine Office/Clinic Note Chief Complaint pt here for yearly. concerns of rash under breast, onset few weeks. HPI Staff Last routine labs: 10/21/22 smoker status: never Pap (21-64yo): Due flu vaccine status: due History of Present Illness Alma Delia is a 37-year-old female presenting today for annual wellness exam. Pt used to see Zi Blum in [place]. Overall, patient reports c/o skin yeast infection under her breasts x a couple weeks. Pt reports hx of flare ups. She reports seeing Dermatology and they had her on clotrimazole but this is not helping enough. Pt reports its more painful than itchy and is located under each breast. Constitutional: no fever, no chills, no sweats, no weakness, no body aches, no changes in weight without trying. Skin: no rash, no skin lesions, no petechiae. Eyes: no eye irritation/pain, no eye drainage, no vision changes. Ears: no ear pain, no ear drainage, no itching, no tinnitus. Nose: no rhinorrhea, no nasal congestion. Throat: no pain, no hoarseness. Respiratory: no shortness of breath, no cough, no orthopnea, no wheezing. Cardiovascular: no chest pain, no palpitations, no edema. Gastrointestinal: no nausea, no vomiting, no diarrhea, no bleeding, no abdominal pain. Genitourinary: no dysuria, no hematuria, no frequency, no urgency, no hesitancy, no small amount void, no suprapubic pain, no flank pain. Musculoskeletal: no back pain, no joint pain, no trauma. Neurological: no headache, no dizziness, no numbness/tingling, no weakness. Psychiatric: no sleeping problems, irritability, mood swings/depression Heme/Lymph: no bleeding tendency, bruising tendency, petechia, swollen/tender nodes Allergy/immunologic: no seasonal allergies, food allergies, recurrent infection, impaired immunity Medical history includes: Obesity/preDM -using Mounjaro 7.5 mg SQ once weekly. Pt is following with Endocrinology at [facility] and obesity medicine at [facility]. BIPAD/JOSE ROBERTO/MDD taking buspirone 15 mg TID, rexulti 3mg qd and trazodone 100mg qhs, and hydroxyzine 25mg per MARTI Perez at [facility] asthma -mild intermittent, using albuterol HFA 8.5 g and albuterol 0.083% inh padma PRN, Symbicort 160/4.5 inh 2 puffs BID migraines - taking Emgality 120 mg injection qmo, fioricet or Ubrelvy PRN and Lyrica 25mg qd per neurologist at [facility] GERD/Crohn's disease - taking Omeprazole 40mg BID and pepcid 20mg qd BID. followed by Dr. Patel in [facility] - not on medications. PCOS/amenorrhea - not on medications Physical Exam Vitals & Measurements T: 36.3 ?C(Oral) HR: 80(Peripheral) BP: 116/78 SpO2: 98% HT: 68 in HT: 173 cm WT: 137.9 kg WT: 303.38 lb BMI: 46.08 General: Well developed, well nourished, in no acute distress Eyes: Bilateral PERRLA, conjunctivae and sclerae wnl, EOMs intact, lids without stye, chalazion, ect/extropion, ptosis, xanthelasma, blepharitis. No discharge to inner canthi.Negative for corneal abrasion or foreign bodies. Ears: grossly normal hearing Nose: No deformity, discharge, inflammation, or lesions. No congestion, no erythema; pink & moist turbinates; clear rhinorrhea. Mouth: mucous membranes pink, moist and intact. [place] posterior oropharynx, no palatal inflammation, uvula midline, no cobble-stoning, no enlarged tonsils, no tonsillar exudate, no ulcers, no active post nasal drip. tongue midline and wnl. Good dentition. Neck: Neck supple. No lymphadenopathy. Trachea midline. No thyroid, masses, tenderness, or enlargement noted. No bruit. Lungs: Normal respiratory effort and clear to auscultation Cardio: Regular rate and rhythm, normal S1 and S2, no murmur, no rub Abdomen: not assessed Musculoskeletal: No deformity or scoliosis noted. No vertebral tenderness. Normal range of motion. No vertebral point tenderness. Joints normal. No erythema, edema, effusion, crepitus, or ecchymosis. Straight leg raise negative Extremity: No clubbing, cyanosis, edema, or deformity. Normal ROM with upper and lower extremities, bilaterally. Neurologic: Cranial nerves II-XII grossly intact. motor strength equal & normal bilaterally, sensation equal & normal bilaterally. Gait normal. Skin: No rashes, ulcerations, or suspicious lesions Mental Status: Alert and oriented x3. Normal mood and affect Assessment/Plan 1. Prediabetes (R73.03: Prediabetes) Hgb A1C %: 6.3 % High (11/24/21 11:28:00) and pt report 6% on 03/11/22. FB on 10/21/22 recheck A1c, UMACR f/u 3 mo Ordered: HgbA1c Microalbumin Level Urine 2. Routine adult health maintenance (Z00.00: Encounter for general adult medical examination without abnormal findings) counseled pt on diet/exercise and staying UTD on routine screenings and vaccines - pt verbalized understanding complete routine labs prior to f/u appt Pt due for routine cervical cancer screening via pap Ordered: HgbA1c Lipid Panel TSH With T4fr Reflex 3. Yeast dermatitis (B37.2: Candidiasis of skin and nail) Pt to use topical nystatin cream PRN f/u with dermatology for flare ups Ordered: nystatin topic (more content not included)... Normal [facility] Comment on above: Result Comment: Elec tronically Signed By: Rell FERRER, Irasema Medley\.br\Date and Time Signed: 12/21/22 13:27 EDT Patient Educationon 12-20-19 Patient Education Endocrinology Diabetes Mellitus and Nutrition, Adult When you have diabetes, or diabetes mellitus, it is very important to have healthy eating habits because your blood sugar (glucose) levels are greatly affected by what you eat and drink. Eating healthy foods in the right amounts, at about the same times every day, can help you: ? Manage your blood glucose. ? Lower your risk of heart disease. ? Improve your blood pressure. ? Reach or maintain a healthy weight. What can affect my meal plan? Every person with diabetes is different, and each person has different needs for a meal plan. Your health care provider may recommend that you work with a dietitian to make a meal plan that is best for you. Your meal plan may vary depending on factors such as: ? The calories you need. ? The medicines you take. ? Your weight. ? Your blood glucose, blood pressure, and cholesterol levels. ? Your activity level. ? Other health conditions you have, such as heart or kidney disease. How do carbohydrates affect me? Carbohydrates, also called carbs, affect your blood glucose level more than any other type of food. Eating carbs raises the amount of glucose in your blood. It is important to know how many carbs you can safely have in each meal. This is different for every person. Your dietitian can help you calculate how many carbs you should have at each meal and for each snack. How does alcohol affect me? Alcohol can cause a decrease in blood glucose (hypoglycemia), especially if you use insulin or take certain diabetes medicines by mouth. Hypoglycemia can be a life-threatening condition. Symptoms of hypoglycemia, such as sleepiness, dizziness, and confusion, are similar to symptoms of having too much alcohol. ? Do not drink alcohol if: ? Your health care provider tells you not to drink. ? You are , may be , or are planning to become . ? If you drink alcohol: ? Limit how much you have to: ? 0?1 drink a day for women. ? 0?2 drinks a day for men. ? Know how much alcohol is in your drink. In the [place] one drink equals one 12 oz bottle of beer (355 mL), one 5 oz glass of wine (148 mL), or one 1? oz glass of hard liquor (44 mL). ? Keep yourself hydrated with water, diet soda, or unsweetened iced tea. Keep in mind that regular soda, juice, and other mixers may contain a lot of sugar and must be counted as carbs. What are tips for following this plan? Reading food labels ? Start by checking the serving size on the Nutrition Facts label of packaged foods and drinks. The number of calories and the amount of carbs, fats, and other nutrients listed on the label are based on one serving of the item. Many items contain more than one serving per package. ? Check the total grams (g) of carbs in one serving. ? Check the number of grams of saturated fats and trans fats in one serving. Choose foods that have a low amount or none of these fats. ? Check the number of milligrams (mg) of salt (sodium) in one serving. Most people should limit total sodium intake to less than 2,300 mg per day. ? Always check the nutrition information of foods labeled as low-fat or nonfat. These foods may be higher in added sugar or refined carbs and should be avoided. ? Talk to your dietitian to identify your daily goals for nutrients listed on the label. Shopping ? Avoid buying canned, pre-made, or processed foods. These foods tend to be high in fat, sodium, and added sugar. ? Shop around the outside edge of the grocery store. This is where you will most often find fresh fruits and vegetables, bulk grains, fresh meats, and fresh dairy products. Cooking ? Use low-heat cooking methods, such as baking, instead of high-heat cooking methods, such as deep frying. ? Cook using healthy oils, such as olive, canola, or sunflower oil. ? Avoid cooking with butter, cream, or high-fat meats. Meal planning ? Eat meals and snacks regularly, preferably at the same times every day. Avoid going long periods of time without eating. ? Eat foods that are high in fiber, such as fresh fruits, vegetables, beans, and whole grains. ? Eat 4?6 oz (112?168 g) of lean protein each day, such as lean meat, chicken, fish, eggs, or tofu. One ounce (oz) (28 g) of lean protein is equal to: ? 1 oz (28 g) of meat, chicken, or fish. ? 1 egg. ? ? cup (62 g) of tofu. ? Eat some foods each day that contain healthy fats, such as avocado, nuts, seeds, and fish. What foods should I eat? Fruits Berries. Apples. Oranges. Peaches. Apricots. Plums. Grapes. Mangoes. Papayas. Pomegranates. Kiwi. Cherries. Vegetables Leafy greens, including lettuce, spinach, kale, chard, jamal greens, mustard greens, and cabbage. Beets. Cauliflower. Broccoli. Carrots. Green beans. Tomatoes. Peppers. Onions. Cucumbers. [place] sprouts. Grains Whole grains, such as whole-wheat or whole-grain bread, crackers, tortillas, cereal, and pasta. Unsweetened oatmeal. (more content not included)... Normal [facility] CHEMISTRYOrdered By: SYSTEM SYSTEM on 10-21-2022 Bilirubin.direct [Mass/Vol] mg/dL Normal 0.1 - 0.4 mg/dL [facility] Bilirubin.indirect [Mass or moles/Vol] Unable to Calculate mg/dL Invalid Interpretation Code 0.1 - 0.9 mg/dL [facility] CRP [Mass/Vol] 1.6 mg/dL Normal <=1.9mg/dL [facility] GFR/1.73 sq M.predicted among non-blacks MDRD (S/P/Bld) [Vol rate/Area] 97 mL/min/1.73 m2 Normal >=59mL/min/1. 73 m2 [facility] [place] Chem S Lipase [Catalytic activity/Vol] 36 U/L Normal 13 - 58 unit/L [facility] HEMATOLOGYOrdered By: SYSTEM SYSTEM on 10-21-2022 Basophils/100 WBC (Bld) 0.7 % Normal 0.0 - 2.0 % [facility] Basophils/Leukocytes Auto (Bld) [Pure # fraction] 0.1 E9/L Normal 0.0 - 0.2 E9/L [facility] Eosinophils/100 WBC (Bld) 2.1 % Normal 0.0 - 8.0 % [facility] Eosinophils/Leukocytes Auto (Bld) [Pure # fraction] 0.2 E9/L Normal 0.0 - 0.5 E9/L [facility] Lymphocytes/100 WBC (Bld) 32.5 % Normal 14.0 - 50.0 % [facility] Lymphocytes/Leukocytes Auto (Bld) [Pure # fraction] 3.3 E9/L Normal 1.0 - 4.0 E9/L [facility] Monocytes/100 WBC (Bld) 5.4 % Normal 4.0 - 14.0 % [facility] Monocytes/Leukocytes Auto (Bld) [Pure # fraction] 0.5 E9/L Normal 0.2 - 1.0 E9/L [facility] Neutrophils/100 WBC (Bld) 59.3 % Normal 36.0 - 75.0 % [facility] Neutrophils/Leukocytes Auto (Bld) [Pure # fraction] 6.0 E9/L Normal 2.0 - 7.5 E9/L [facility] HEMATOLOGYOrdered By: Angelica Terrazas on 10-21-2022 Erythrocyte distribution width (RBC) [Ratio] 13.6 % Normal 10.9 - 14.2 % [facility] Hematocrit (Bld) [Volume fraction] 39.3 % Normal 34.0 - 46.0 % [facility] Hemoglobin (Bld) [Mass/Vol] 13.1 g/dL Normal 12.0 - 16.0 gm/dL [facility] MCH (RBC) [Entitic mass] 27.5 pg Normal 27.0 - 34.0 pg [facility] MCHC (RBC) [Mass/Vol] 33.5 g/dL Normal 31.4 - 36.0 gm/dL [facility] MCV (RBC) [Entitic vol] 82.3 fL Normal 80.0 - 100.0 fL [facility] Platelet mean volume (Bld) [Entitic vol] 8.8 fL Normal 6.4 - 10.8 fL [facility] Platelets (Bld) [#/Vol] 240.0 E9/L Normal 150. 0 - 500.0 E9/L [facility] RBC (Bld) [#/Vol] 4.8 E12/L Normal 4.3 - 5.9 E12/L [facility] Sed Rate Automated 22 mm/h Normal 0 - 34 mm/hr [facility] WBC corrected for nucl RBC Auto (Bld) [#/Vol] 10.0 E9/L Normal 4.0 - 11.0 E9/L [facility] Laboratory - Chemistry and C hemistry - challengeOrdered By: SYSTEM SYSTEM on 10-21-2022 Albumin [Mass/Vol] 4.3 g/dL Normal 3.3 - 5.0 gm/dL [facility] Albumin/Globulin [Mass ratio] 1.2 {ratio} Normal 1.1 - 2.2 [facility] ALP [Catalytic activity/Vol] 63 [iU]/d Normal 21 - 98 Int._Unit/L [facility] ALT No additional P-5'-P [Catalytic activity/Vol] 30 [iU]/d Normal 6 - 46 Int._Unit/L [facility] Anion gap [Moles/Vol] 15 mmol/L Normal 6 - 16 mEq/L [facility] AST [Catalytic activity/Vol] 22 [iU]/d Normal 5 - 43 Int._Unit/L [facility] Bilirubin [Mass/Vol] 0.5 mg/dL Normal 0.0 - 1 .1 mg/dL [facility] Calcium [Mass/Vol] 9.5 mg/dL Normal 8.9 - 11. 1 mg/dL [facility] Chloride [Moles/Vol] 104 mmol/L Normal 101 - 1 11 mmol/L [facility] CO2 [Moles/Vol] 24 mmol/L Normal 21 - 31 mmol/L [facility] Creatinine [Mass/Vol] 0.8 mg/dL Normal 0.5 - 1.3 mg/dL [facility] Globulin (S) [Mass/Vol] 3.7 g/dL Normal 1.4 - 4.0 gm/dL [facility] Glucose [Mass/Vol] 114 mg/dL Normal 55 - 199 mg/dL [facility] Potassium [Moles/Vol] 3.6 mmol/L Normal 3.5 - 5.3 mmol/L [facility] Protein [Mass/Vol] 8.0 g/dL High 6.0 - 7.8 gm/dL [facility] Sodium [Moles/Vol] 139 mmol/L Normal 135 - 145 mmol/L [facility] Urea nitrogen [Mass/Vol] 14 mg/dL Normal 5 - 21 mg/dL [facility] Urea nitrogen/Creatinine [Mass ratio] 18 mg/mg Normal 10 - 20 [facility] SEROLOGYOrdered By: Lenka Erazo on 10-21-2022 Beta hCG Ql Negative (10/21/22 4:28 PM) Normal [facility] URINALYSISOrdered By: Govind Erazo on 10-21-2022 Bilirubin Ql (U) Negative (10/21/22 4:10 PM) Normal Negative [facility] Auto SS Clarity (U) Slightly Cloudy *ABN* (10/21/22 4:10 PM) Invalid Interpretation Code Clear [facility] Auto SS Color (U) Yellow (10/21/22 4:10 PM) Normal Yellow [facility] Auto SS Epithelial cells.squamous LM.HPF (Urine sed) [#/Area] 0-2 /HPF Normal 0-2/HPF [facility] Aut o SS Glucose Test strip (U) [Mass/Vol] Negative (10/21/22 4:10 PM) Normal Negative [facility] Auto SS Hemoglobin Ql (U) Negative (10/21/22 4:10 PM) Normal Negative [facility] Auto SS Ketones (U) [Mass/Vol] Negative (10/21/22 4:10 PM) Normal Negative [facility] Auto SS [place].plasma/[place]. RBC (Bld) [Mass ratio] 0-3 /HPF Normal 0-3/HPF [facility] [place] UA A uto SS Nitrite Ql (U) Negative (10/21/22 4:10 PM) Normal Negative [facility] Auto SS pH (U) 5.5 *NA* (10/21/22 4:10 PM) Invalid Interpretation Code 5.0 - 9.0 [facility] Auto SS Protein (U) [Mass/Vol] Negative (10/21/22 4:10 PM) Normal Negative [facility] Auto SS Specific gravity (U) [Rel density] >=1.030 *NA* (10/21/22 4:10 PM) Invalid Interpretation Code 1.005 - 1.030 [facility] Auto SS UA Spec Desc Clean Catch (10/21/22 4:10 PM) Normal [facility] [place] UA Auto SS Urobilinogen Qn (U) [id number] {Dre'U}/dL Normal 0.0 - 1.0 EU/dL [facility] Auto SS WBC Auto Ql (U) Negative (10/21/22 4:10 PM) Normal Negative [facility] Auto SS WBC LM.HPF (Urine sed) [#/Area] 0-5 /HPF Normal 0-5/HPF [facility] SS CHEMISTRYOrdered By: SYSTEM SYSTEM on 05-23-2022 Albumin [Mass/Vol] 4.1 g/dL Normal 3.3 - 5.0 gm/dL [facility] Albumin/Globulin [Mass ratio] 1.1 {ratio} Normal 1.1 - 2.2 [facility] ALP [Catalytic activity/Vol] 55 [iU]/d Normal 21 - 98 Int._Unit/L [facility] ALT No additional P-5'-P [Catalytic activity/Vol] 22 [iU]/d Normal 6 - 46 Int._Unit/L [facility] Anion gap [Moles/Vol] 12 mmol/L Normal 6 - 16 mEq/L [facility] [place] [facility] AST [Catalytic activity/Vol] 19 [iU]/d Normal 5 - 43 Int._Unit/L [facility] Bilirubin [Mass/Vol] 0.7 mg/dL Normal 0.0 - 1 .1 mg/dL [facility] Bilirubin.direct [Mass/Vol] 0.1 mg/dL Normal 0.1 - 0.4 mg/dL [facility] Bilirubin.indirect [Mass or moles/Vol] 0.6 mg/dL Normal 0.1 - 0.9 mg/dL [facility] Calcium [Mass/Vol] 8.7 mg/dL Low 8.9 - 11. 1 mg/dL [facility] Chloride [Moles/Vol] 104 mmol/L Normal 101 - 1 11 mmol/L [facility] CO2 [Moles/Vol] 26 mmol/L Normal 21 - 31 mmol/L [facility] Creatinine [Mass/Vol] 0.9 mg/dL Normal 0.5 - 1.3 mg/dL [facility] GFR/1.73 sq M.predicted among blacks MDRD (S/P/Bld) [Vol rate/Area] mL/min/1.73 m2 Normal >=59mL/min/1. 73 m2 [facility] [place] Chem S GFR/1.73 sq M.predicted among non-blacks MDRD (S/P/Bld) [Vol rate/Area] mL/min/1.73 m2 Normal >=59mL/min/1. 73 m2 [facility] [place] Chem S Globulin (S) [Mass/Vol] 3.6 g/dL Normal 1.4 - 4.0 gm/dL [facility] Glucose [Mass/Vol] 153 mg/dL Normal 55 - 199 mg/dL [facility] Lipase [Catalytic activity/Vol] 28 U/L Normal 13 - 58 unit/L [facility] Potassium [Moles/Vol] 3.8 mmol/L Normal 3.5 - 5.3 mmol/L [facility] Protein [Mass/Vol] 7.7 g/dL Normal 6.0 - 7.8 gm/dL [facility] Sodium [Moles/Vol] 138 mmol/L Normal 135 - 145 mmol/L [facility] Urea nitrogen [Mass/Vol] 11 mg/dL Normal 5 - 21 mg/dL [facility] Urea nitrogen/Creatinine [Mass ratio] 12 mg/mg Normal 10 - 20 [facility] HEMATOLOGYOrdered By: SYSTEM SYSTEM on 05-23-2022 Basophils/100 WBC (Bld) 0.2 % Normal 0.0 - 2.0 % [facility] Basophils/Leukocytes Auto (Bld) [Pure # fraction] 0.0 E9/L Normal 0.0 - 0.2 E9/L [facility] Eosinophils/100 WBC (Bld) 0.9 % Normal 0.0 - 8.0 % [facility] Eosinophils/Leukocytes Auto (Bld) [Pure # fraction] 0.1 E9/L Normal 0.0 - 0.5 E9/L [facility] Lymphocytes/100 WBC (Bld) 12.5 % Low 14.0 - 50.0 % [facility] Lymphocytes/Leukocytes Auto (Bld) [Pure # fraction] 1.3 E9/L Normal 1.0 - 4.0 E9/L [facility] Monocytes/100 WBC (Bld) 4.5 % Normal 4.0 - 14.0 % [facility] Monocytes/Leukocytes Auto (Bld) [Pure # fraction] 0.5 E9/L Normal 0.2 - 1.0 E9/L [facility] Neutrophils/100 WBC (Bld) 81.9 % High 36.0 - 75.0 % [facility] Neutrophils/Leukocytes Auto (Bld) [Pure # fraction] 8.4 E9/L High 2.0 - 7.5 E9/L [facility] HEMATOLOGYOrdered By: Debbie Hill on 05-23-2022 Erythrocyte distribution width (RBC) [Ratio] 14.0 % Normal 10.9 - 14.2 % [facility] Hematocrit (Bld) [Volume fraction] 38.7 % Normal 34.0 - 46.0 % [facility] Hemoglobin (Bld) [Mass/Vol] 12.7 g/dL Normal 12.0 - 16.0 gm/dL [facility] MCH (RBC) [Entitic mass] 27.2 pg Normal 27.0 - 34.0 pg [facility] MCHC (RBC) [Mass/Vol] 32.9 g/dL Normal 31.4 - 36.0 gm/dL [facility] MCV (RBC) [Entitic vol] 82.6 fL Normal 80.0 - 100.0 fL [facility] Platelet mean volume (Bld) [Entitic vol] 8.4 fL Normal 6.4 - 10.8 fL [facility] Platelets (Bld) [#/Vol] 234.0 E9/L Normal 150. 0 - 500.0 E9/L [facility] RBC (Bld) [#/Vol] 4.7 E12/L Normal 4.3 - 5.9 E12/L [facility] WBC corrected for nucl RBC Auto (Bld) [#/Vol] 10.2 E9/L Normal 4.0 - 11.0 E9/L [facility] URINALYSISOrdered By: Angelica Terrazas on 05-23-2022 Bacteria LM Ql (Urine sed) 1+ /HPF Invalid Interpretation Code Trace/HPF [facility] Bilirubin Ql (U) Negative (05/23/22 7:54 AM) Normal Negative [facility] SS Clarity (U) Slightly Cloudy *ABN* (05/23/22 7:54 AM) Invalid Interpretation Code Clear [facility] Color (U) Yellow (05/23/22 7:54 AM) Normal Yellow [facility] Auto SS Crystals LM Ql (Urine sed) Present (05/23/22 7:54 AM) Normal [facility] Auto SS Epithelial cells.squamous LM.HPF (Urine sed) [#/Area] 3-4 /HPF Normal 0-2/HPF [facility] Aut o SS Glucose Test strip (U) [Mass/Vol] Negative (05/23/22 7:54 AM) Normal Negative [facility] SS Hemoglobin Ql (U) Negative (05/23/22 7:54 AM) Normal Negative [facility] SS Ketones (U) [Mass/Vol] 1+ *ABN* (05/23/22 7:54 AM) Invalid Interpretation Code Negative [facility] Auto SS [place].plasma/[place]. RBC (Bld) [Mass ratio] 0-3 /HPF Normal 0-3/HPF [facility]A A uto SS Nitrite Ql (U) Negative (05/23/22 7:54 AM) Normal Negative [facility] SS pH (U) 5.0 *NA* (05/23/22 7:54 AM) Invalid Interpretation Code 5.0 - 9.0 [facility] Protein (U) [Mass/Vol] Negative (05/23/22 7:54 AM) Normal Negative [facility] SS Specific gravity (U) [Rel density] >=1.030 *NA* (05/23/22 7:54 AM) Invalid Interpretation Code 1.005 - 1.030 [facility] SS UA Spec Desc Clean Catch (05/23/22 7:54 AM) Normal [facility] [place] UA Auto SS Urobilinogen Qn (U) [id number] {Dre'U}/dL Normal 0.0 - 1.0 EU/dL [facility] Auto SS WBC Auto Ql (U) Negative (05/23/22 7:54 AM) Normal Negative [facility] Auto SS WBC LM.HPF (Urine sed) [#/Area] 0-5 /HPF Normal 0-5/HPF [facility] HEMOGLOBIN A1C (POC)on 03-31 HbA1c (Bld) [Mass fraction] 6.0 % 4.2 - 5.6 % [facility] CHEMISTRYOrdered By: SYSTEM SYSTEM on 12-31-2021 Albumin [Mass/Vol] 4.4 g/dL Normal 3.3 - 5.0 gm/dL [facility] Albumin/Globulin [Mass ratio] 1.2 {ratio} Normal 1.1 - 2.2 [facility] ALP [Catalytic activity/Vol] 59 [iU]/d Normal 21 - 98 Int._Unit/L [facility] ALT No additional P-5'-P [Catalytic activity/Vol] 24 [iU]/d Normal 6 - 46 Int._Unit/L [facility] Anion gap [Moles/Vol] 13 mmol/L Normal 6 - 16 mEq/L [facility] AST [Catalytic activity/Vol] 22 [iU]/d Normal 5 - 43 Int._Unit/L [facility] Bilirubin [Mass/Vol] 0.4 mg/dL Normal 0.0 - 1 .1 mg/dL [facility] Calcium [Mass/Vol] 9.2 mg/dL Normal 8.9 - 11. 1 mg/dL [facility] Chloride [Moles/Vol] 102 mmol/L Normal 101 - 1 11 mmol/L [facility] CO2 [Moles/Vol] 25 mmol/L Normal 21 - 31 mmol/L [facility] Creatinine [Mass/Vol] 0.8 mg/dL Normal 0.5 - 1.3 mg/dL [facility] GFR/1.73 sq M.predicted among blacks MDRD (S/P/Bld) [Vol rate/Area] mL/min/1.73 m2 Normal >=59mL/min/1. 73 m2 [facility] S GFR/1.73 sq M.predicted among non-blacks MDRD (S/P/Bld) [Vol rate/Area] mL/min/1.73 m2 Normal >=59mL/min/1. 73 m2 [facility] [place] Chem S Globulin (S) [Mass/Vol] 3.8 g/dL Normal 1.4 - 4.0 gm/dL [facility] Glucose [Mass/Vol] 105 mg/dL Normal 55 - 199 mg/dL [facility] Magnesium [Mass/Vol] 1.8 mg/dL Normal 1.3 - 2 .4 mg/dL [facility] Potassium [Moles/Vol] 3.5 mmol/L Normal 3.5 - 5.3 mmol/L [facility] Protein [Mass/Vol] 8.2 g/dL High 6.0 - 7.8 gm/dL [facility] Sodium [Moles/Vol] 136 mmol/L Normal 135 - 145 mmol/L [facility] Troponin I.cardiac [Mass/Vol] 3.10 pg/mL Low 10.10 - 27.10 pg/mL [facility] Urea nitrogen [Mass/Vol] 13 mg/dL Normal 5 - 21 mg/dL [facility] Urea nitrogen/Creatinine [Mass ratio] 16 mg/mg Normal 10 - 20 [facility] COAGULATIONOrdered By: Osmin Granado on 12-31-2021 aPTT Coag (PPP) [Time] 37.9 s High 25.1 - 36.5 second(s) [facility] INR Coag (PPP) [Relative time] 1.2 {INR} Invalid Interpretation Code [facility] PT Coag (PPP) [Time] 13.2 s High 9.4 - 1 2.5 second(s) [facility] HEMATOLOGYOrdered By: SYSTEM SYSTEM on 12-31-2021 Basophils/100 WBC (Bld) 0.5 % Normal 0.0 - 2.0 % [facility] Basophils/Leukocytes Auto (Bld) [Pure # fraction] 0.1 E9/L Normal 0.0 - 0.2 E9/L [facility] Eosinophils/100 WBC (Bld) 2.8 % Normal 0.0 - 8.0 % [facility] Eosinophils/Leukocytes Auto (Bld) [Pure # fraction] 0.3 E9/L Normal 0.0 - 0.5 E9/L [facility] Lymphocytes/100 WBC (Bld) 29.4 % Normal 14.0 - 50.0 % [facility] Lymphocytes/Leukocytes Auto (Bld) [Pure # fraction] 3.5 E9/L Normal 1.0 - 4.0 E9/L [facility] Monocytes/100 WBC (Bld) 7.1 % Normal 4.0 - 14.0 % [facility] Monocytes/Leukocytes Auto (Bld) [Pure # fraction] 0.8 E9/L Normal 0.2 - 1.0 E9/L [facility] Neutrophils/100 WBC (Bld) 60.2 % Normal 36.0 - 75.0 % [facility] Neutrophils/Leukocytes Auto (Bld) [Pure # fraction] 7.2 E9/L Normal 2.0 - 7.5 E9/L [facility] HEMATOLOGYOrdered By: Clarence Swift on 12-31-2021 Erythrocyte distribution width (RBC) [Ratio] 15.0 % High 10.9 - 14.2 % [facility] Hematocrit (Bld) [Volume fraction] 39.6 % Normal 34.0 - 46.0 % [facility] Hemoglobin (Bld) [Mass/Vol] 12.8 g/dL Normal 12.0 - 16.0 gm/dL [facility] MCH (RBC) [Entitic mass] 26.2 pg Low 27.0 - 34.0 pg [facility] MCHC (RBC) [Mass/Vol] 32.3 g/dL Normal 31.4 - 36.0 gm/dL [facility] MCV (RBC) [Entitic vol] 81.1 fL Normal 80.0 - 100.0 fL [facility] Platelet mean volume (Bld) [Entitic vol] 8.9 fL Normal 6.4 - 10.8 fL [facility] Platelets (Bld) [#/Vol] 254.0 E9/L Normal 150. 0 - 500.0 E9/L [facility] RBC (Bld) [#/Vol] 4.9 E12/L Normal 4.3 - 5.9 E12/L [facility] WBC corrected for nucl RBC Auto (Bld) [#/Vol] 12.0 E9/L High 4.0 - 11.0 E9/L [facility] CHEMISTRYOrdered By: SYSTEM SYSTEM on 12-24-2021 Albumin [Mass/Vol] 4.1 g/dL Normal 3.3 - 5.0 gm/dL [facility] Albumin/Globulin [Mass ratio] 1.1 {ratio} Normal 1.1 - 2.2 [facility] ALP [Catalytic activity/Vol] 60 [iU]/d Normal 21 - 98 Int._Unit/L [facility] ALT No additional P-5'-P [Catalytic activity/Vol] 20 [iU]/d Normal 6 - 46 Int._Unit/L [facility] Comment on above: Result Comment: 'Spe cimen hemolyzed, result may be affected. Recommend redraw.' Anion gap [Moles/Vol] 14 mmol/L Normal 6 - 16 mEq/L F [facility] AST [Catalytic activity/Vol] 31 [iU]/d Normal 5 - 43 Int._Unit/L [facility] Comment on above: Result Comment: 'Spe cimen hemolyzed, result may be affected. Recommend redraw.' Bilirubin [Mass/Vol] 1.1 mg/dL Normal 0.0 - 1 .1 mg/dL [facility] Comment on above: Result Comment: 'Spe cimen hemolyzed, result may be affected. Redraw is recommended.' Calcium [Mass/Vol] 9.2 mg/dL Normal 8.9 - 11. 1 mg/dL [facility] Chloride [Moles/Vol] 105 mmol/L Normal 101 - 1 11 mmol/L [facility] CO2 [Moles/Vol] 24 mmol/L Normal 21 - 31 mmol/L [facility] Creatinine [Mass/Vol] 0.8 mg/dL Normal 0.5 - 1.3 mg/dL [facility] GFR/1.73 sq M.predicted among blacks MDRD (S/P/Bld) [Vol rate/Area] mL/min/1.73 m2 Normal >=59mL/min/1. 73 m2 [facility] Chem S GFR/1.73 sq M.predicted among non-blacks MDRD (S/P/Bld) [Vol rate/Area] mL/min/1.73 m2 Normal >=59mL/min/1. 73 m2 [facility] S Globulin (S) [Mass/Vol] 3.8 g/dL Normal 1.4 - 4.0 gm/dL [facility] Glucose [Mass/Vol] 128 mg/dL Normal 55 - 199 mg/dL [facility] Lipase [Catalytic activity/Vol] 43 U/L Normal 13 - 58 unit/L [facility] Magnesium [Mass/Vol] 1.9 mg/dL Normal 1.3 - 2 .4 mg/dL [facility] Comment on above: Result Comment: 'Spe cimen hemolyzed, result may be affected. Redraw is recommended.' Potassium [Moles/Vol] 4.2 mmol/L Normal 3.5 - 5.3 mmol/L [facility] Comment on above: Result Comment: 'Spe cimen hemolyzed. Result may be affected. Redraw is recommended.' Protein [Mass/Vol] 7.9 g/dL High 6.0 - 7.8 gm/dL [facility] Sodium [Moles/Vol] 139 mmol/L Normal 135 - 145 mmol/L [facility] Troponin I.cardiac [Mass/Vol] pg/mL Low 10.10 - 27.10 pg/mL [facility] Urea nitrogen [Mass/Vol] 12 mg/dL Normal 5 - 21 mg/dL [facility] Urea nitrogen/Creatinine [Mass ratio] 15 mg/mg Normal 10 - 20 [facility] CHEMISTRYOrdered By: Nerissa Velarde on 12-24-2021 Natriuretic peptide B (Bld) [Mass/Vol] 7 pg/mL Normal 5 - 80 pg/mL [facility] HEMATOLOGYOrdered By: SYSTEM SYSTEM on 12-24-2021 Basophils/100 WBC (Bld) 0.9 % Normal 0.0 - 2.0 % [facility] Basophils/Leukocytes Auto (Bld) [Pure # fraction] 0.1 E9/L Normal 0.0 - 0.2 E9/L [facility] Eosinophils/100 WBC (Bld) 3.9 % Normal 0.0 - 8.0 % [facility] Eosinophils/Leukocytes Auto (Bld) [Pure # fraction] 0.6 E9/L High 0.0 - 0.5 E9/L [facility] Lymphocytes/100 WBC (Bld) 33.3 % Normal 14.0 - 50.0 % [facility] Lymphocytes/Leukocytes Auto (Bld) [Pure # fraction] 5.1 E9/L High 1.0 - 4.0 E9/L [facility] Monocytes/100 WBC (Bld) 6.4 % Normal 4.0 - 14.0 % [facility] Monocytes/Leukocytes Auto (Bld) [Pure # fraction] 1.0 E9/L Normal 0.2 - 1.0 E9/L [facility] Neutrophils/100 WBC (Bld) 55.5 % Normal 36.0 - 75.0 % [facility] Neutrophils/Leukocytes Auto (Bld) [Pure # fraction] 8.6 E9/L High 2.0 - 7.5 E9/L [facility] HEMATOLOGYOrdered By: Patt Velarde on 12-24-2021 Erythrocyte distribution width (RBC) [Ratio] 15.1 % High 10.9 - 14.2 % [facility] Hematocrit (Bld) [Volume fraction] 25.9 % Low 34.0 - 46.0 % [facility] Hemoglobin (Bld) [Mass/Vol] 8.5 g/dL Low 12.0 - 16.0 gm/dL [facility] MCH (RBC) [Entitic mass] 26.5 pg Low 27.0 - 34.0 pg [facility] MCHC (RBC) [Mass/Vol] 32.8 g/dL Normal 31.4 - 36.0 gm/dL [facility] MCV (RBC) [Entitic vol] 81.0 fL Normal 80.0 - 100.0 fL [facility] [place] [facility] Platelet mean volume (Bld) [Entitic vol] 9.0 fL Normal 6.4 - 10.8 fL [facility] Platelets (Bld) [#/Vol] 363.0 E9/L Normal 150. 0 - 500.0 E9/L [facility] RBC (Bld) [#/Vol] 3.2 E12/L Low 4.3 - 5.9 E12/L [facility] WBC corrected for nucl RBC Auto (Bld) [#/Vol] 15.4 E9/L High 4.0 - 11.0 E9/L [facility] Comment on above: Result Comment: Slid e reviewed by [facility] MICRO OTHER TESTSOrdered By: Nerissa Velarde on 12-24-2021 Rapid COV Int NEG Ctl Pass (12/24/21 10:00 PM) Normal [facility] [place] Man Sero Rapid COV Int POS Ctl Pass (12/24/21 10:00 PM) Normal [facility] [place] Man Sero SARS-CoV+SARS-CoV-2 (COVID-19) Ag IA.rapid Ql (Resp) Not Detected (12/24/21 10:00 PM) Normal Not Detected [facility] [place] Man Sero SEROLOGYOrdered By: Nerissa Velarde on 12-24-2021 HCG.beta subunit (U) [Moles/Vol] Negative Normal [facility] [place] Man Sero CHEMISTRYOrdered By: Nuria Bills se on 11-24-2021 HbA1c (Bld) [Mass fraction] 6.3 % High <=5.9% [facility] [place] ChemAutoSS Bariatric Surgery - Initialo n 11-11-2021 Bariatric Surgery - Initial Patient Discussion/Summary The following are some lifestyle changes you should begin to prepare you for your a Demetra-en-Y gastric bypass surgery. Eliminate soda and other carbonated beverages from your diet. Carbonation will not be well tolerated after surgery. Try Propel, Vitamin Water Zero, Sobe Lifewater, Crystal Light or water. Exercise for 30-60 minutes daily. Brisk walking, bike riding and swimming are all examples of healthy exercise. If you are unable to exercise we recommend seated exercise. Do not skip meals. Take a multivitamin daily. Lose weight. In preparation for your surgery it is important that you begin making healthier food choices now. Our dietitian will meet with you to help you select foods lower in calories and higher in nutrition. We would like you to lose at least 1015 lbs prior to surgery. Increase your protein intake to 60 grams per day. The following are required before surgery: Letter from your doctor and or any other physician supporting your decision to have surgery. Documentation of Comorbidities. Nutritional evaluation. Lab Work:. Navigator's . Navigator's . Psychological Evaluation . Cardiac clearance. Pulmonary clearance. Provider Impressions Procedure and Risk Discussed: Gastric Bypass: We discussed the risks and benefits of the gastric bypass at length. The patient understands the risks and benefits of the procedure and how the procedure is performed. The patient understands the risks include but are not limited to bleeding, infection, DVT, PE, pneumonia, myocardial infarction, leak along the staple lines, weight regain. The patient is a 36-year-old woman with a history of morbid obesity and a current BMI of 44 who presents for evaluation for bariatric surgery. Her comorbidities include diabetes, hyperlipidemia, migraines, depression, GERD, PCOS, hematologic clotting disorder, DIETER on CPAP, and possible Crohn's disease not currently on medication. She is interested in bariatric surgery in order to be healthier and to get her comorbidities under better control. She was diagnosed with type 2 diabetes in the last 3 months. She also has poorly controlled GERD with frequent breakthrough symptoms. Today we discussed bariatric surgery options, and I think that a gastric bypass would be the best option for her. We discussed the benefits of the procedure especially in patients with diabetes and poorly controlled GERD. We also discussed some of her insurance requirements and we will have our bariatric nurses and coordinators reach out to her to further discuss her particular requirements. She does have a history of bleeding disorder during prior operations. She states that she does see a futures trader, and believes that she may have factor V Leiden, however she has never had issues with forming clots. She also had a diagnosis of Crohn's disease in 2009, and was on medications for it, but this was stopped a year ago when she had repeat upper and lower endoscopies. She has seeking second opinion for her GI issues. The patient will need GI referral as well as hematology referral prior to surgery to further assess what her underlying issues are. We will follow-up with her as she gets closer to the approval for bariatric surgery. Chief Complaint The patient is being seen initial visit. An interactive audio and video telecommunication system which permits real time communications between the patient (at the originating site) and provider (at the distant site) was utilized to provide this telehealth service. Verbal consent was requested and obtained from ALMA DELIA PEARL on this date, 11/11/2021 08:30 AM , for a telehealth visit. Initial WLS consult History of Present Illness Initial onset of obesity was at age 17. Patient developed PCOS, and gained a large amount of weight at age 17 The patient was most successful with exercise and low carbohydrate diet. The patient considers portion size as their dietary weakness. Distribution of obesity is central. Severity of obesity is Class 3 which is a BMI of greater than or equal to 40. Procedure Preferred: a Demetra-en-Y gastric bypass. The patient is a 36-year-old woman with a history of morbid obesity and a current BMI of 44 and a weight of 299 pounds who presents for evaluation for bariatric surgery. Her comorbidities include type 2 diabetes, hyperlipidemia, GERD, back pain, PCOS, clotting disorder, possibly factor V Leiden, DIETER using CPAP, and possible Crohn's disease. The patient receives most of her care in [place]. Her PCP is a nurse practitioner, Violet. The patient has been obese ever since she developed PCOS at age 17. At that time she gained a significant amount of weight and has continued to gain weight since then. She has tried diets in the past, but has been unsuccessful. Currently she is on Ozempic for weight loss as well as a new diagnosis of diabetes. Her most recent A1c was 6.5%. Prior to this she was on metformin for (more content not included)... Normal [employer] CHEMISTRYOrdered By: SYSTEM SYSTEM on 11-01-2021 Albumin [Mass/Vol] 4.3 g/dL Normal 3.3 - 5.0 gm/dL [facility] Albumin/Globulin [Mass ratio] 1.3 {ratio} Normal 1.1 - 2.2 [facility] ALP [Catalytic activity/Vol] 60 [iU]/d Normal 21 - 98 Int._Unit/L [facility] ALT No additional P-5'-P [Catalytic activity/Vol] 23 [iU]/d Normal 6 - 46 Int._Unit/L [facility] Anion gap [Moles/Vol] 11 mmol/L Normal 6 - 16 mEq/L [facility] AST [Catalytic activity/Vol] 20 [iU]/d Normal 5 - 43 Int._Unit/L [facility] Bilirubin [Mass/Vol] 0.3 mg/dL Normal 0.0 - 1 .1 mg/dL [facility] Bilirubin.direct [Mass/Vol] mg/dL Normal 0.1 - 0.4 mg/dL [facility] Bilirubin.indirect [Mass or moles/Vol] Unable to Calculate mg/dL Invalid Interpretation Code 0.1 - 0.9 mg/dL [facility] Calcium [Mass/Vol] 9.1 mg/dL Normal 8.9 - 11. 1 mg/dL [facility] Chloride [Moles/Vol] 107 mmol/L Normal 101 - 1 11 mmol/L [facility] CO2 [Moles/Vol] 26 mmol/L Normal 21 - 31 mmol/L [facility] Creatinine [Mass/Vol] 0.9 mg/dL Normal 0.5 - 1.3 mg/dL [facility] GFR/1.73 sq M.predicted among blacks MDRD (S/P/Bld) [Vol rate/Area] mL/min/1.73 m2 Normal >=59mL/min/1. 73 m2 [facility] Chem S GFR/1.73 sq M.predicted among non-blacks MDRD (S/P/Bld) [Vol rate/Area] mL/min/1.73 m2 Normal >=59mL/min/1. 73 m2 [facility] Chem S Globulin (S) [Mass/Vol] 3.4 g/dL Normal 1.4 - 4.0 gm/dL [facility] Glucose [Mass/Vol] 115 mg/dL Normal 55 - 199 mg/dL [facility] Potassium [Moles/Vol] 3.8 mmol/L Normal 3.5 - 5.3 mmol/L [facility] Protein [Mass/Vol] 7.7 g/dL Normal 6.0 - 7.8 gm/dL [facility] Sodium [Moles/Vol] 140 mmol/L Normal 135 - 145 mmol/L [facility] Urea nitrogen [Mass/Vol] 15 mg/dL Normal 5 - 21 mg/dL [facility] Urea nitrogen/Creatinine [Mass ratio] 17 mg/mg Normal 10 - 20 [facility] HEMATOLOGYOrdered By: SYSTEM SYSTEM on 11-01-2021 Basophils/100 WBC (Bld) 0.5 % Normal 0.0 - 2.0 % [facility] Basophils/Leukocytes Auto (Bld) [Pure # fraction] 0.1 E9/L Normal 0.0 - 0.2 E9/L [facility] Eosinophils/100 WBC (Bld) 3.0 % Normal 0.0 - 8.0 % [facility] Eosinophils/Leukocytes Auto (Bld) [Pure # fraction] 0.4 E9/L Normal 0.0 - 0.5 E9/L [facility] Lymphocytes/100 WBC (Bld) 30.9 % Normal 14.0 - 50.0 % [facility] Lymphocytes/Leukocytes Auto (Bld) [Pure # fraction] 3.6 E9/L Normal 1.0 - 4.0 E9/L [facility] Monocytes/100 WBC (Bld) 7.2 % Normal 4.0 - 14.0 % [facility] Monocytes/Leukocytes Auto (Bld) [Pure # fraction] 0.8 E9/L Normal 0.2 - 1.0 E9/L [facility] Neutrophils/100 WBC (Bld) 58.4 % Normal 36.0 - 75.0 % [facility] Neutrophils/Leukocytes Auto (Bld) [Pure # fraction] 6.9 E9/L Normal 2.0 - 7.5 E9/L [facility] HEMATOLOGYOrdered By: Clarence Swift on 11-01-2021 Erythrocyte distribution width (RBC) [Ratio] 15.4 % High 10.9 - 14.2 % [facility] Hematocrit (Bld) [Volume fraction] 37.6 % Normal 34.0 - 46.0 % [facility] Hemoglobin (Bld) [Mass/Vol] 12.2 g/dL Normal 12.0 - 16.0 gm/dL [facility] MCH (RBC) [Entitic mass] 26.0 pg Low 27.0 - 34.0 pg [facility] MCHC (RBC) [Mass/Vol] 32.5 g/dL Normal 31.4 - 36.0 gm/dL [facility] MCV (RBC) [Entitic vol] 79.9 fL Low 80.0 - 100.0 fL [facility] Platelet mean volume (Bld) [Entitic vol] 8.7 fL Normal 6.4 - 10.8 fL [facility] Platelets (Bld) [#/Vol] 237.0 E9/L Normal 150. 0 - 500.0 E9/L [facility] RBC (Bld) [#/Vol] 4.7 E12/L Normal 4.3 - 5.9 E12/L [facility] WBC corrected for nucl RBC Auto (Bld) [#/Vol] 11.7 E9/L High 4.0 - 11.0 E9/L [facility] SEROLOGYOrdered By: Osmin cooney on 11-01-2021 Beta hCG Ql Negative (11/01/21 7:59 PM) Normal [facility] URINALYSISOrdered By: Osmin hernandez on 11-01-2021 Bacteria LM Ql (Urine sed) Trace /HPF Normal Trace/HPF [facility] Auto SS Bilirubin Ql (U) Negative (11/01/21 7:59 PM) Normal Negative [facility]A Auto SS Clarity (U) Clear (11/01/21 7:59 PM) Normal Clear [facility] Auto SS Color (U) STRAW Invalid Interpretation Code [facility] Auto SS Epithelial cells.squamous LM.HPF (Urine sed) [#/Area] 0-2 /HPF Normal 0-2/HPF [facility]A Aut o SS Glucose Test strip (U) [Mass/Vol] Negative (11/01/21 7:59 PM) Normal Negative [facility]A Auto SS Hemoglobin Ql (U) Negative (11/01/21 7:59 PM) Normal Negative [facility] Auto SS Ketones (U) [Mass/Vol] Negative (11/01/21 7:59 PM) Normal Negative [facility]A Auto SS [place].plasma/[place]. RBC (Bld) [Mass ratio] 0-3 /HPF Normal 0-3/HPF [facility] A uto SS Mucus Ql (Urine sed) 1+ (11/01/21 7:59 PM) Normal [facility]A Auto SS Nitrite Ql (U) Negative (11/01/21 7:59 PM) Normal Negative [facility] Auto SS pH (U) 5.5 *NA* (11/01/21 7:59 PM) Invalid Interpretation Code 5.0 - 9.0 [facility] SS Protein (U) [Mass/Vol] Negative (11/01/21 7:59 PM) Normal Negative [facility] Auto SS Specific gravity (U) [Rel density] >=1.030 *NA* (11/01/21 7:59 PM) Invalid Interpretation Code 1.005 - 1.030 [facility] Auto SS UA Spec Desc Clean Catch (11/01/21 7:59 PM) Normal [facility] Auto SS Urobilinogen Qn (U) 0.7010817 {Dre'U}/dL Normal 0.0 - 1.0 EU/dL [facility] Auto SS WBC Auto Ql (U) Negative (11/01/21 7:59 PM) Normal Negative [facility] Auto SS WBC LM.HPF (Urine sed) [#/Area] 0-5 /HPF Normal 0-5/HPF [facility] SS BLOOD BANKOrdered By: Pita landry on 08-18-2021 ABO/Rh Interp Positive Invalid Interpretation Code [facility] BB Subsection ABSC Gel Interp Negative (08/18/21 8:25 AM) Normal [facility] Subsection CHEMISTRYOrdered By: SYSTEM SYSTEM on 08-18-2021 Amphetamines Screen method >1000 ng/mL Ql (U) Negative (08/18/21 8:55 AM) Normal Negative [facility] Barbiturates Screen Ql (U) Negative (08/18/21 8:55 AM) Normal Negative [facility] Benzodiazepines Ql (U) Negative (08/18/21 8:55 AM) Normal Negative [facility] Cocaine Ql (U) Negative (08/18/21 8:55 AM) Normal Negative [facility] Opiates Screen Ql (U) Negative (08/18/21 8:55 AM) Normal Negative [facility] Phencyclidine Screen method >25 ng/mL Ql (U) Negative (08/18/21 8:55 AM) Normal Negative [facility] Tetrahydrocannabinol Screen method >50 ng/mL Ql (U) Negative (08/18/21 8:55 AM) Normal Negative [facility] Glucose post fast [Mass/Vol] 140 mg/dL High 55 - 99 mg/dL [facility] TSH Qn 2.66 m[IU]/L Normal 0.34 - 5.60 mcIU/mL [facility] CHEMISTRYOrdered By: Osmin penn on 08-18-2021 HbA1c (Bld) [Mass fraction] 6.7 % High <=5.9% [facility] HEMATOLOGYOrdered By: SYSTEM SYSTEM on 08-18-2021 Basophils/100 WBC (Bld) 0.3 % Normal 0.0 - 2.0 % [facility] Basophils/Leukocytes Auto (Bld) [Pure # fraction] 0.0 E9/L Normal 0.0 - 0.2 E9/L [facility] Eosinophils/100 WBC (Bld) 2.3 % Normal 0.0 - 8.0 % [facility] Eosinophils/Leukocytes Auto (Bld) [Pure # fraction] 0.2 E9/L Normal 0.0 - 0.5 E9/L [facility] Lymphocytes/100 WBC (Bld) 26.2 % Normal 14.0 - 50.0 % [facility] Lymphocytes/Leukocytes Auto (Bld) [Pure # fraction] 2.2 E9/L Normal 1.0 - 4.0 E9/L [facility] Monocytes/100 WBC (Bld) 6.1 % Normal 4.0 - 14.0 % [facility] Monocytes/Leukocytes Auto (Bld) [Pure # fraction] 0.5 E9/L Normal 0.2 - 1.0 E9/L [facility] Neutrophils/100 WBC (Bld) 65.1 % Normal 36.0 - 75.0 % [facility] Neutrophils/Leukocytes Auto (Bld) [Pure # fraction] 5.6 E9/L Normal 2.0 - 7.5 E9/L [facility] HEMATOLOGYOrdered By: Vashti Gallagher on 08-18-2021 Erythrocyte distribution width (RBC) [Ratio] 14.3 % High 10.9 - 14.2 % [facility] Hematocrit (Bld) [Volume fraction] 36.5 % Normal 34.0 - 46.0 % [facility] Hemoglobin (Bld) [Mass/Vol] 12.4 g/dL Normal 12.0 - 16.0 gm/dL [facility] MCH (RBC) [Entitic mass] 26.9 pg Low 27.0 - 34.0 pg [facility] MCHC (RBC) [Mass/Vol] 34.0 g/dL Normal 31.4 - 36.0 gm/dL [facility] MCV (RBC) [Entitic vol] 79.2 fL Low 80.0 - 100.0 fL [facility] Platelet mean volume (Bld) [Entitic vol] 9.2 fL Normal 6.4 - 10.8 fL [facility] Platelets (Bld) [#/Vol] 288.0 E9/L Normal 150. 0 - 500.0 E9/L [facility] RBC (Bld) [#/Vol] 4.6 E12/L Normal 4.3 - 5.9 E12/L [facility] WBC corrected for nucl RBC Auto (Bld) [#/Vol] 8.6 E9/L Normal 4.0 - 11.0 E9/L [facility] URINALYSISOrdered By: Govind Erazo on 08-18-2021 Bacteria LM Ql (Urine sed) 1+ /HPF Invalid Interpretation Code Trace/HPF [facility] Bilirubin Ql (U) Negative (08/18/21 8:55 AM) Normal Negative [facility] SS Clarity (U) Slightly Cloudy *ABN* (08/18/21 8:55 AM) Invalid Interpretation Code Clear [facility] Color (U) Yellow (08/18/21 8:55 AM) Normal Yellow [facility] Auto SS Epithelial cells.squamous LM.HPF (Urine sed) [#/Area] 5-8 /HPF Normal 0-2/HPF [facility] Aut o SS Glucose Test strip (U) [Mass/Vol] Negative (08/18/21 8:55 AM) Normal Negative [facility] Auto SS Hemoglobin Ql (U) 1+ *ABN* (08/18/21 8:55 AM) Invalid Interpretation Code Negative [facility] SS Ketones (U) [Mass/Vol] Negative (08/18/21 8:55 AM) Normal Negative [facility] Auto SS [place].plasma/[place]. RBC (Bld) [Mass ratio] 0-3 /HPF Normal 0-3/HPF [facility] A uto SS Mucus Ql (Urine sed) Trace (08/18/21 8:55 AM) Normal [facility] Auto SS Nitrite Ql (U) Negative (08/18/21 8:55 AM) Normal Negative [facility] Auto SS pH (U) 5.5 *NA* (08/18/21 8:55 AM) Invalid Interpretation Code 5.0 - 9.0 [facility] Protein (U) [Mass/Vol] Negative (08/18/21 8:55 AM) Normal Negative [facility] Auto SS Specific gravity (U) [Rel density] >=1.030 *NA* (08/18/21 8:55 AM) Invalid Interpretation Code 1.005 - 1.030 [facility] Auto SS UA Spec Desc Clean Catch (08/18/21 8:55 AM) Normal [facility] Auto SS Urobilinogen Qn (U) 0.4881861 {Dre'U}/dL Normal 0.0 - 1.0 EU/dL [facility] SS WBC Auto Ql (U) Negative (08/18/21 8:55 AM) Normal Negative [facility] Auto SS WBC LM.HPF (Urine sed) [#/Area] 0-5 /HPF Normal 0-5/HPF [facility] SS CHEMISTRYOrdered By: SYSTEM SYSTEM on 07-29-2021 Albumin [Mass/Vol] 4.0 g/dL Normal 3.3 - 5.0 gm/dL [facility] Albumin/Globulin [Mass ratio] 1.3 {ratio} Normal 1.1 - 2.2 [facility] ALP [Catalytic activity/Vol] 63 [iU]/d Normal 21 - 98 Int._Unit/L [facility] ALT No additional P-5'-P [Catalytic activity/Vol] 19 [iU]/d Normal 6 - 46 Int._Unit/L [facility] Anion gap [Moles/Vol] 11 mmol/L Normal 6 - 16 mEq/L [facility] AST [Catalytic activity/Vol] 16 [iU]/d Normal 5 - 43 Int._Unit/L [facility] Bilirubin [Mass/Vol] 0.7 mg/dL Normal 0.0 - 1 .1 mg/dL [facility] Calcium [Mass/Vol] 9.1 mg/dL Normal 8.9 - 11. 1 mg/dL [facility] Chloride [Moles/Vol] 104 mmol/L Normal 101 - 1 11 mmol/L [facility] CO2 [Moles/Vol] 26 mmol/L Normal 21 - 31 mmol/L [facility] Creatinine [Mass/Vol] 0.7 mg/dL Normal 0.5 - 1.3 mg/dL [facility] Free T4 index Calc [Mass/Vol] 8.36 ng/dL Normal 5.90 - 13.10 ng/dL [facility] GFR/1.73 sq M.predicted among blacks MDRD (S/P/Bld) [Vol rate/Area] mL/min/1.73 m2 Normal >=59mL/min/1. 73 m2 [facility] S GFR/1.73 sq M.predicted among non-blacks MDRD (S/P/Bld) [Vol rate/Area] mL/min/1.73 m2 Normal >=59mL/min/1. 73 m2 [facility] Chem S Globulin (S) [Mass/Vol] 3.1 g/dL Normal 1.4 - 4.0 gm/dL [facility] Glucose [Mass/Vol] 151 mg/dL Normal 55 - 199 mg/dL [facility] Potassium [Moles/Vol] 4.0 mmol/L Normal 3.5 - 5.3 mmol/L [facility] Prolactin [Mass/Vol] 23.71 ng/mL Normal 3.34 - 26.72 ng/mL [facility] Protein [Mass/Vol] 7.1 g/dL Normal 6.0 - 7.8 gm/dL [facility] Sodium [Moles/Vol] 137 mmol/L Normal 135 - 145 mmol/L [facility] T4 [Mass/Vol] 8.4 ug/dL Normal 4.6 - 9.1 mcg/dL [facility] T4 uptake [Mass/Vol] 39.8 % Normal 32.0 - 48.4 % [facility] TSH Qn 2.04 m[IU]/L Normal 0.34 - 5.60 mcIU/mL [facility] Urea nitrogen [Mass/Vol] 14 mg/dL Normal 5 - 21 mg/dL [facility] Urea nitrogen/Creatinine [Mass ratio] 20 mg/mg Normal 10 - 20 [facility] HEMATOLOGYOrdered By: SYSTEM SYSTEM on 07-29-2021 Basophils/100 WBC (Bld) 0.2 % Normal 0.0 - 2.0 % [facility] Basophils/Leukocytes Auto (Bld) [Pure # fraction] 0.0 E9/L Normal 0.0 - 0.2 E9/L [facility] Eosinophils/100 WBC (Bld) 2.0 % Normal 0.0 - 8.0 % [facility] Eosinophils/Leukocytes Auto (Bld) [Pure # fraction] 0.2 E9/L Normal 0.0 - 0.5 E9/L [facility] Lymphocytes/100 WBC (Bld) 28.4 % Normal 14.0 - 50.0 % [facility] Lymphocytes/Leukocytes Auto (Bld) [Pure # fraction] 2.5 E9/L Normal 1.0 - 4.0 E9/L [facility] Monocytes/100 WBC (Bld) 5.5 % Normal 4.0 - 14.0 % [facility] Monocytes/Leukocytes Auto (Bld) [Pure # fraction] 0.5 E9/L Normal 0.2 - 1.0 E9/L [facility] Neutrophils/100 WBC (Bld) 63.9 % Normal 36.0 - 75.0 % [facility] Neutrophils/Leukocytes Auto (Bld) [Pure # fraction] 5.6 E9/L Normal 2.0 - 7.5 E9/L [facility] HEMATOLOGYOrdered By: Pita landry on 07-29-2021 Erythrocyte distribution width (RBC) [Ratio] 14.2 % Normal 10.9 - 14.2 % [facility] Hematocrit (Bld) [Volume fraction] 35.6 % Normal 34.0 - 46.0 % [facility] Hemoglobin (Bld) [Mass/Vol] 11.7 g/dL Low 12.0 - 16.0 gm/dL [facility] MCH (RBC) [Entitic mass] 26.3 pg Low 27.0 - 34.0 pg [facility] MCHC (RBC) [Mass/Vol] 32.9 g/dL Normal 31.4 - 36.0 gm/dL [facility] MCV (RBC) [Entitic vol] 79.9 fL Low 80.0 - 100.0 fL [facility] Platelet mean volume (Bld) [Entitic vol] 8.7 fL Normal 6.4 - 10.8 fL [facility] HemeAutoSS Platelets (Bld) [#/Vol] 256.0 E9/L Normal 150. 0 - 500.0 E9/L [facility] RBC (Bld) [#/Vol] 4.5 E12/L Normal 4.3 - 5.9 E12/L [facility] WBC corrected for nucl RBC Auto (Bld) [#/Vol] 8.8 E9/L Normal 4.0 - 11.0 E9/L [facility] HemeAutoSS ECG 12 lead ECGon 07-07-2021 ECG 12 lead ECG [facility] [place] [address] Electrocardiograph Report Signed Patient: Alma Delia Pearl MR#: [id number] : 1985 Acct:[id number] Age/Sex: 36 / F ADM Date: 07/07/21 Loc: ER Room: Type: [facility] ER Attending Dr: Ordering Provider: Kanu Rudolph DO Date of Service: 07/08/2106/30/253 ECG/ECG 12 lead ECG: Nausea/Vomiting/Diar natalie Copies to: Test Reason : Blood Pressure : 152/078 mmHG Vent. Rate : 091 BPM Atrial Rate : 091 BPM P-R Int : 142 ms QRS Dur : 086 ms QT Int : 350 ms P-R-T Axes : 034 033 023 degrees QTc Int : 430 ms Normal sinus rhythm Normal ECG When compared with ECG of 02-JUL-2008 22:54, No significant change was found Confirmed by ULISES ANDRE MD ([id number]) on 07/10/2021 2:12:29 PM Referred By: Electronically Signed By:ULISES ANDRE MD Transcribed By: MUS Signed By Ulises Andre MD 0 07/10/21 1412 Normal [facility] HCG,Urineon 07-06-2021 Beta HCG ( test) Ql (U) Negative [facility] Comment on above: Result Comment: PERF ORMED BY: [facility] [address] [place] [address] PATHOLOGIST PATIENT CARE TECHNICIAN MARLEN SIDDIQUI M.D. Performed By: #### U HCG #### [facility] [address] [place] [id number] [facility] Q - HCG TOTAL QNon 2 HCG, TOTAL, QN <3 Normal [facility] Comment on above: Order Comment: [facility] Testing performed at: [facility], [facility], [address] [facility], [address] [place], [address], Cloth Folder Machine: Boo Chen MD [facility] Collection Date/Time: [facility] Results Received Date/Time: [facility] Reported Date/Time: Result Comment: Refe rence Range Non or premenopausal <5 Postmenopausal <10 Values from different assay methods may vary. The use of this assay to monitor or to diagnose patients with cancer or any condition unrelated to has not been cleared or approved by the FDA or the development advisor of the assay. Performed By: #### 2 1113E #### [facility] Default [address] [place] [address] ER URINE PROFILEon 8 Bilirubin (total) Negative Normal NEGATIVE [facility] Comment on above: Performed By: #### E RUR ####[facility] [address] [place] [id number] Marlene BLOOD Negative Normal NEGATIVE [facility] Comment on above: Performed By: #### E RUR ####[facility] [address] [place], [place] [address]Bwthps Marlene ERUAHD A micrscopic examination will be performed if indicated. Normal [facility] Comment on above: Performed By: #### E RUR ####[facility] [address] [place] [id number] [place] Glucose mass conc Negative Normal NEGATIVE [facility] Comment on above: Performed By: #### E RUR ####[facility] [address] [place] [id number] Marlene pH of blood 5.0 [pH] Normal 5-9 [facility] Comment on above: Performed By: #### E RUR ####[facility] [address] [place] [phone] Protein Negative Normal [facility] Comment on above: Performed By: #### E RUR ####[facility] [address] [place] [id number] Marlene SPEC GRAVITY >=1.030 Normal 1.005-<=1.025 [facility] Comment on above: Performed By: #### E RUR ####[facility] Zyexujboim[address] Mar[place] UR MICRO IND NOT INDICATED Normal [facility] Comment on above: Performed By: #### E RUR ####[facility] [address] [place], [place] [phone] Marlene Urine, clarity CLEAR Normal [facility] Comment on above: Performed By: #### E RUR ####[facility] [address] [place], [place] [id number] Marlene Urine, color LT. YELLOW Normal YELLOW [facility] Comment on above: Performed By: #### E RUR ####[facility] [address] [place] [address] Mar[place] Urine, ketones presence Negative Normal NEGATIVE [facility] Comment on above: Performed By: #### E RUR ####[facility] [address] [place], [place] [id number] Marlene Urine, nitrite presence Negative Normal NEGATIVE [facility] Comment on above: Performed By: #### E RUR ####[facility] [address] [place] [phone] Marlene Urine, urobilinogen 0.2 {Dre'U}/dL Normal [facility] Comment on above: Performed By: #### E RUR ####[facility] [address] [place] [id number] [place]lene WBC (Leukocytes) Negative Normal NEGATIVE [facility] Comment on above: Performed By: #### E RUR ####[facility] [address] [place], [place] [address]Auzjcz Marlene URon 06-04-2017 , QUAL Negative Normal NEGATIVE [facility] Comment on above: Performed By: #### S SCRN, STREPC ####[facility] [address] [place], [place] [address]Govuts Marlene AMYLASEon 06-03-2017 Amylase 48 U/L Normal 31-110 [facility] Comment on above: Performed By: #### L IPA, CMP, SAMANTA ####[facility] [address] [place], [place] [address]Tydhrv Marlene CBC AUTO DIFFon 06-03-2017 Basophils Auto #/vol (Bld) 0.0 103/ul Normal 0.0-0.1 [facility] Comment on above: Performed By: #### C BC ####[facility] [address] [place], [place] [phone] Marlene Basophils/100 WBC Auto (Bld) 0.3 % Normal 0.2-2.0 [facility] Comment on above: Performed By: #### C BC ####[facility] [address] [place], [place] [address]Gerken Marlene Eosinophils 0.2 103/ul Normal 0.0-0.7 [facility] Comment on above: Performed By: #### C BC ####[facility] [address] [place], [place] [address]Gerken Marlene Eosinophils/100 leukocytes 2.2 % Normal 0.9-7.0 [facility] Comment on above: Performed By: #### C BC ####[facility] [address] [place], [place] [address]Qyurke Marlene Erythrocyte distribution width Auto Ratio (RBC) 13.2 % Normal 11.0-15.0 [facility] Comment on above: Performed By: #### C BC ####[facility] [address] [place] [phone] Marlene Erythrocytes (RBC) 4.92 106/ul Normal 4.20-5.40 [facility] Comment on above: Performed By: #### C BC ####[facility] [address] [place] [phone] Rosario Hematocrit (HCT) 41.8 % Normal 36.0-48.0 [facility] Comment on above: Performed By: #### C BC ####[facility] [address] [place] [phone] Marlene Hemoglobin mass conc (Bld) 13.6 g/dL Normal 12.0-16.0 [facility] Comment on above: Performed By: #### C BC ####[facility] [address] [place] [phone] Marlene IG # 0.04 10e3/ul Critically high 0.00-0.03 [facility] Comment on above: Performed By: #### C BC ####[facility] [address] Mar[place] IG % 0.4 % Normal 0.0-0.5 [facility] Comment on above: Performed By: #### C BC ####[facility] [address] Marlene Lymphocytes 1.6 103/ul Normal 1.2-3.8 [facility] Comment on above: Performed By: #### C BC ####[facility] Buf[address]rae[address] [place] Lymphocytes/100 leukocytes 15.8 % Critically low 20.5-60.0 [facility] Comment on above: Performed By: #### C BC ####[facility] [address] [place] [phone] Marlene MANUAL DIFF REQ NO Normal [facility] Comment on above: Performed By: #### C BC ####[facility] [address] [place] [phone] Marlene MCH 27.6 pg Normal 26.7-34.0 [facility] Comment on above: Performed By: #### C BC ####[facility] [address] [place] [phone] Rosario MCHC mass conc (RBC) 32.5 g/dL Normal 29.9-35.2 [facility] Comment on above: Performed By: #### C BC ####[facility] [address] [place] [phone] Rosario MCV 85.0 fL Normal 81.0-99.0 [facility] Comment on above: Performed By: #### C BC ####[facility] [address] [place] [phone] Marlene Monocytes 0.6 103/ul Normal 0.3-0.8 [facility] Comment on above: Performed By: #### C BC ####[facility] [address] [place] [address]Gissell Rosario Monocytes/100 leukocytes 6.2 % Normal 1.7-12.0 [facility] Comment on above: Performed By: #### C BC ####[facility] [address] [place], [place] [address]Gerken Marlene Neutrophils 7.6 103/ul Critically high 1.4-6.[address] [facility] Comment on above: Performed By: #### C BC ####[facility] [address] [place], [place] [address]Gerhiginio Rosario Neutrophils/100 WBC Auto (Bld) 75.1 % Critically high 43.0-75.0 [facility] Comment on above: Performed By: #### C BC ####[facility] [id number] [place], [place] [id number] Rosario Platelet mean volume (PMV) 10.5 fL Normal 9.5-13.5 [facility] Comment on above: Performed By: #### C BC ####[facility] [address] [place] [id number] Marlene Platelets 248 103/ul Normal 150-450 [facility] Comment on above: Performed By: #### C BC ####[facility] [address] [place] [id number] Rosario WBC (Leukocytes) 10.1 103/ul Normal 4.0-11.0 The [facility] Comment on above: Performed By: #### C BC ####[facility] [address] [place] [address] Marlene INFLUENZA A AND B AGon 06-03 INFLUANEGH SEE BELOW Normal [facility] Comment on above: Result Comment: Nega tive for Flu A protein angiten. Infection due to Flu A cannot be ruled out. Flu A angiten in the sample may be below the detection limit of the test. Performed By: #### I NFLUAB ####[facility] [address] [place] [address] Marlene INFLUBNEGH SEE BELOW Normal [facility] Comment on above: Result Comment: Nega tive for Flu B protein antigen. Infection due to Flu B cannot be ruled out. Flu B antigen in the sample may be below the detection limit of the test. Performed By: #### I NFLUAB ####[facility] [address] [place] [address] INFLUENZA A AG Negative Normal NEGATIVE SEE COMMENT [facility] Comment on above: Performed By: #### I NFLUAB ####[facility] [facility] [address] [place] [address] INFLUENZA B AG Negative Normal NEGATIVE SEE COMMENT [facility] Comment on above: Performed By: #### I NFLUAB ####[facility] [address] [place] [address] INTERNAL CONTROLS Within Normal Limits Normal Wi thin Normal Limits [facility] Comment on above: Performed By: #### I NFLUAB ####[facility] [address] [place] [address] Marlene LIPASEon 06-03-2017 Lipase 61.0 U/L Normal 23.0-300.0 [facility] Comment on above: Performed By: #### L IPA, CMP, SAMANTA ####[facility] [address] [place] [address] Marlene PROF 14(COMP METB)on 018 Alanine aminotransferase (ALT) 42 U/L Normal 9-52 The [facility] Comment on above: Performed By: #### L IPA, CMP, SAMANTA ####[facility] Z[address] Marlene Albumin 4.8 g/dL Normal 3.5-5.0 [facility] Comment on above: Performed By: #### L IPA, CMP, SAMANTA ####[facility] Giz[address] Marlene Albumin/Globulin Ratio 1.3 {ratio} Normal T [facility] Comment on above: Performed By: #### L IPA, CMP, SAMANTA ####[facility] M[address] Marlene Alkaline phosphatase (ALP) 80 U/L Normal 38-126 [facility] Comment on above: Performed By: #### L IPA, CMP, SAMANTA ####[facility] [address] [place] [address] Marlene Anion gap 16.1 mmol/L Normal [facility] Comment on above: Performed By: #### L IPA, CMP, SAMANTA ####[facility] [address] [place] [address] Marlene Aspartate aminotransferase (AST) 18 U/L Normal 14-36 The [facility] Comment on above: Performed By: #### L IPA, CMP, SAMANTA ####[facility] [address] [place] [address] Marlene Bilirubin Ql (U) 0.6 mg/dL Normal 0.2-1.[address] [facility] Comment on above: Performed By: #### L IPA, CMP, SAMANTA ####[facility] [address] Marlene BUN/Creatinine Ratio 14.1 mg/mg Normal [facility] Comment on above: Performed By: #### L IPA, CMP, SAMANTA ####[facility] [address] [place] [address] Marlene Calcium 9.5 mg/dL Normal 8.4-10.2 [facility] Comment on above: Performed By: #### L IPA, CMP, SAMANTA ####[facility] [address] [place], [place] [address]Npioas Marlene Chloride 108 mmol/L Critically high 98-107 The [facility] Comment on above: Performed By: #### L IPA, CMP, SAMANTA ####[facility] [address] [place], [place] [address]Ovepwr Marlene CO2 21.0 mmol/L Critically low 22.0-30.0 The [facility] Comment on above: Performed By: #### L IPA, CMP, SAMANTA ####[facility] [address] [place], [place] [address]Smckes Marlene Creatinine 0.93 mg/dL Normal 0.52-1.04 [facility] Comment on above: Performed By: #### L IPA CMP, SAMANTA ####[facility] [address] [place], [place] [address]Gxmvdw Marlene eGFR (non-black) mL/min/{1.73_m2} Normal >=60 Th [facility] Comment on above: Performed By: #### L IPA CMP, SAMANTA ####[facility] [address] [place], [place] [address]Cbnhsj Marlene Globulin 3.5 g/dL Normal [facility] Comment on above: Performed By: #### L IPA CMP, SAMANTA ####[facility] [address] [place], [place] [address]Vjculf Marlene Glucose mass conc 144 mg/dL Critically high 74-106 Th [facility] Comment on above: Performed By: #### L IPA, CMP, SAMANTA ####[facility] [address] [place], [place] [address]Scqlrc Marlene Potassium molar conc 3.7 mmol/L Normal 3.4-5.0 [facility] Comment on above: Performed By: #### L IPA, CMP, SAMANTA ####[facility] [address] [place], [place] [address]Uwvcgq Marlene Protein 8.3 g/dL Critically high 6.1-8.2 [facility] Comment on above: Performed By: #### L IPA, CMP, SAMANTA ####[facility] [address] [place], [place] [address]Hcqpkc Marlene Sodium 142 mmol/L Normal 137-145 [facility] Comment on above: Performed By: #### L IPA, CMP, SAMANTA ####[facility] [address] [place], [place] [address]Kjieeo Marlene Urea nitrogen 13.0 mg/dL Normal 7.0-17.0 [facility] Comment on above: Performed By: #### L IPA, CMP, SAMANTA ####[facility] [address] [place], [place] [address]Wmpsud Marlene XR CHEST 2 Von 05-29-2017 XR CHEST 2 V [address] [place] [address] Patient: ALMA DELIA PEARL Exam Date: 05/29/2017DOB: 1985 Gender:F : MR JUAN DIEGO MANZANARES . Admission #: [id number] : MRS. KEILA LYNCH Order #: [id number] HERE TO VIEW EXAM RADIOLOGY REPORT PROCEDURE: RADIOGRAPH CHEST 2 VIEWS COMPARISON: None. INDICATIONS: Acute cough, fever for a couple days FINDINGS: LUNGS: 11 mm nodule right midlung. The left lung is clearVASCULATURE: No increased pulmonary vasculature. PLEURA: No pneumothorax, effusion, or pleural thickening. CARDIAC: No cardiomegaly or cardiac silhouette abnormality. MEDIASTINUM: No visible mass or adenopathy. BONES: No fracture or visible bone lesion. OTHER: Nodule known to Juan Diego Manzanares CONCLUSION: 1. 11 mm right midlung nodule of unknown etiology Dictated by: Ian Mohan M.D. on 05/29/2017 at 16:50 Approved by: Ian Mohan M.D. on 05/29/2017 at 16:52 Normal [facility] URon 05-25-2017 , QUAL Negative Normal NEGATIVE The [facility] Comment on above: Performed By: #### P REGU ####[facility] [address] [place], [place] [address]Boawfu Marlene STREP SCREEN CONFIRMATIONon 05-25-2017 STREP SCREEN CONFIRMATION Culture Observations: FINAL SCANNED RESULT TO FOLLOW IN [facility] Normal [facility] Comment on above: Performed By: #### S SCRN, STREPC ####[facility] [address] [place], [place] [address]CrvnhlGissell Rosario STREPT SCREENon 05-25-2017 STREP SCREEN A Negative Normal NEGATIVE The [facility] Comment on above: Performed By: #### S SCRN, STREPC ####[facility] [address] [place], [place] [address]FkwvupGissell Rosario Vital Signs Date Time Vital Sign Value Performing Clinician Facility 11-29-2023 20:28-0400 Body temperature 97.88 [degF] Kaylinn Dokken [facility] 11-29-2023 20:28-0400 Diastolic blood pressure 78 mm[Hg] Kaylinn Dokken [facility] 11-29-2023 20:28-0400 Heart rate 92 /min Marleneylinn Dokken [facility] 11-29-2023 20:28-0400 Respiratory rate 18 /min Marleneylinn Dokken [facility] 11-29-2023 20:28-0400 SaO2% (BldA) [Mass fraction] 97 % Marleneylinn Dokken [facility] 11-29-2023 20:28-0400 Systolic blood pressure 125 mm[Hg] Kaylinn Dokken [facility] 11-28-2023 20:59-0400 Body temperature 97.88 [degF] James Kaushik [facility] 11-28-2023 20:59-0400 Diastolic blood pressure 68 mm[Hg] James Kaushik [facility] 11-28-2023 20:59-0400 Heart rate 82 /min Jmaes Faulkner [facility] 11-28-2023 20:59-0400 Respiratory rate 18 /min James Kaushik [facility] 11-28-2023 20:59-0400 SaO2% (BldA) [Mass fraction] 98 % James Kaushik [facility] 11-28-2023 20:59-0400 Systolic blood pressure 115 mm[Hg] James Kaushik [facility] 11-28-2023 19:08-0400 Body temperature 97.52 [degF] James Kaushik [facility] 11-28-2023 19:08-0400 Diastolic blood pressure 80 mm[Hg] James Kaushik [facility] 11-28-2023 19:08-0400 Heart rate 95 /min James Kaushik [facility] 11-28-2023 19:08-0400 Respiratory rate 16 /min James Kaushik [facility] 11-28-2023 19:08-0400 SaO2% (BldA) [Mass fraction] 97 % James Faulkner [facility] 11-28-2023 19:08-0400 Systolic blood pressure 140 mm[Hg] James Kaushik [facility] 09-22-2023 09:19-0400 Blood Pressure Location Irasema Missler [facility] 09-22-2023 09:19-0400 Body temperature 98.06 [degF] Irasema Missler [facility] 09-22-2023 09:19-0400 Diastolic blood pressure 76 mm[Hg] Irasema Missler [facility] 09-22-2023 09:19-0400 Heart rate 78 /min Irasema Missler [facility] 09-22-2023 09:19-0400 SaO2% (BldA) [Mass fraction] 97 % Irasema Zacarias [facility] 09-22-2023 09:19-0400 Systolic blood pressure 118 mm[Hg] Irasema Zacarias [facility] 07-25-2023 21:05-0400 Diastolic blood pressure 69 mm[Hg] Daron Zaragozae [facility] 07-25-2023 21:05-0400 Heart rate 80 /min Daron Doris [facility] 07-25-2023 21:05-0400 Respiratory rate 18 /min Daron Zaragozae [facility] 07-25-2023 21:05-0400 SaO2% (BldA) [Mass fraction] 96 % Daron Zaragozae [facility] 07-25-2023 21:05-0400 Systolic blood pressure 103 mm[Hg] Daron Doris [facility] 07-25-2023 18:32-0400 Body temperature 97.7 [degF] Daron Doris [facility] 07-25-2023 18:32-0400 Diastolic blood pressure 89 mm[Hg] Daron Doris [facility] 07-25-2023 18:32-0400 Heart rate 83 /min Daron Doris [facility] 07-25-2023 18:32-0400 Respiratory rate 18 /min Daron Doris [facility] 07-25-2023 18:32-0400 SaO2% (BldA) [Mass fraction] 96 % Daron Doris [facility] 07-25-2023 18:32-0400 Systolic blood pressure 131 mm[Hg] Daron George [facility] 07-01-2023 12:05-0500 Blood Pressure Location WILLIE GALINDO [facility] 07-01-2023 12:05-0500 Body temperature 97.88 [degF] WILLIE GALINDO [facility] 07-01-2023 12:05-0500 Diastolic blood pressure 82 mm[Hg] WILLIE GALINDO [facility] 07-01-2023 12:05-0500 Heart rate 90 /min WILLIE GALINDO [facility] 07-01-2023 12:05-0500 Respiratory rate 16 /min WILLIE GALINDO [facility] 07-01-2023 12:05-0500 SaO2% (BldA) [Mass fraction] 97 % WILLIE GALINDO [facility] 07-01-2023 12:05-0500 Systolic blood pressure 110 mm[Hg] WILLIE GALINDO [facility] 05-20-2023 09:22-0500 Blood Pressure Location Aicha Dean [facility] 05-20-2023 09:22-0500 Body temperature 98.24 [degF] Aicha Dean [facility] 05-20-2023 09:22-0500 Diastolic blood pressure 70 mm[Hg] Aicha Dean [facility] 05-20-2023 09:22-0500 Heart rate 91 /min Aicha Dean [facility] 05-20-2023 09:22-0500 Respiratory rate 18 /min Aicha Dean [facility] 05-20-2023 09:22-0500 SaO2% (BldA) [Mass fraction] 97 % Aicha Dean [facility] 05-20-2023 09:22-0500 Systolic blood pressure 116 mm[Hg] Aicha Dean [facility] 04-06-2023 15:30-0500 Diastolic blood pressure 95 mm[Hg] James Faulkner [facility] 04-06-2023 15:30-0500 Heart rate 100 /min James Faulkner [facility] 04-06-2023 15:30-0500 Mean blood pressure 112 mm[Hg] James Faulkner [facility] 04-06-2023 15:30-0500 Respiratory rate 18 /min James Faulkner [facility] 04-06-2023 15:30-0500 SaO2% (BldA) [Mass fraction] 99 % James Faulkner [facility] 04-06-2023 15:30-0500 Systolic blood pressure 146 mm[Hg] James Faulkner [facility] 04-06-2023 13:57-0500 gluc 142 mg/dL James Faulkner [facility] 04-06-2023 13:57-0500 gluc James Faulkner [facility] 11-29-2023 13:50-0500 Body temperature 98.42 [degF] James Kaushik [facility] 04-06-2023 13:50-0500 Diastolic blood pressure 80 mm[Hg] James Kaushik [facility] 04-06-2023 13:50-0500 Heart rate 108 /min James Kaushik [facility] 04-06-2023 13:50-0500 Respiratory rate 18 /min James Kaushik [facility] 04-06-2023 13:50-0500 SaO2% (BldA) [Mass fraction] 96 % James Kaushik [facility] 04-06-2023 13:50-0500 Systolic blood pressure 123 mm[Hg] James Kaushik [facility] 03-19-2023 17:00-0500 Diastolic blood pressure 55 mm[Hg] James Kaushik [facility] 03-19-2023 17:00-0500 Heart rate 77 /min James Kaushik [facility] 03-19-2023 17:00-0500 Mean blood pressure 71 mm[Hg] James Kaushik [facility] 03-19-2023 17:00-0500 Respiratory rate 16 /min James Kaushik [facility] 03-19-2023 17:00-0500 Systolic blood pressure 103 mm[Hg] James Kaushik [facility] 03-19-2023 16:00-0500 Diastolic blood pressure 57 mm[Hg] James Kaushik [facility] 03-19-2023 16:00-0500 Heart rate 68 /min James Kaushik [facility] 03-19-2023 16:00-0500 Mean blood pressure 75 mm[Hg] James Faulkner [facility] 03-19-2023 16:00-0500 SaO2% (BldA) [Mass fraction] 96 % James Faulkner [facility] 03-19-2023 13:39-0500 Body temperature 98.24 [degF] James Faulkner [facility] 03-19-2023 13:39-0500 Diastolic blood pressure 74 mm[Hg] James Faulkner [facility] 03-19-2023 13:39-0500 Heart rate 74 /min James Faulkner [facility] 03-19-2023 13:39-0500 Respiratory rate 18 /min James Faulkner [facility] 03-19-2023 13:39-0500 SaO2% (BldA) [Mass fraction] 97 % James Faulkner [facility] 03-19-2023 13:39-0500 Systolic blood pressure 112 mm[Hg] James Faulkner [facility] 03-14-2023 16:19-0500 Blood Pressure Location ANNABELVladimir HERNANDEZ [facility] 03-14-2023 16:19-0500 Body temperature 97.88 [degF] ANNABEL DAVID [facility] 03-14-2023 16:19-0500 Diastolic blood pressure 80 mm[Hg] ANNABEL DAVID [facility] 03-14-2023 16:19-0500 Heart rate 90 /min ANNABEL DAVID [facility] 03-14-2023 16:19-0500 Respiratory rate 20 /min ANNABEL HERNANDEZ [facility] 03-14-2023 16:19-0500 SaO2% (BldA) [Mass fraction] 98 % ANNABELVladimir HERNANDEZ [facility] 03-14-2023 16:19-0500 Systolic blood pressure 136 mm[Hg] ANNABELVladimir HERNANDEZ [facility] 12-21-2022 12:57-0400 Blood Pressure Location Irasema Zacarias [facility] 12-21-2022 12:57-0400 Body temperature 97.34 [degF] Irasema Quirozler [facility] 12-21-2022 12:57-0400 Diastolic blood pressure 78 mm[Hg] Irasemapita Quirozler [facility] 12-21-2022 12:57-0400 Heart rate 80 /min Irasema Quirozler [facility] 12-21-2022 12:57-0400 SaO2% (BldA) [Mass fraction] 98 % Irasema Quirozler [facility] 12-21-2022 12:57-0400 Systolic blood pressure 116 mm[Hg] Irasema Missler [facility] 10-21-2022 18:30-0400 Diastolic blood pressure 85 mm[Hg] Roshan Janak [facility] 10-21-2022 18:30-0400 Heart rate 63 /min Roshan Janak [facility] 10-21-2022 18:30-0400 Mean blood pressure 98 mm[Hg] Roshan Janak [facility] 10-21-2022 18:30-0400 Respiratory rate 17 /min Roshan Janak [facility] 10-21-2022 18:30-0400 SaO2% (BldA) [Mass fraction] 96 % Roshan Janak [facility] 10-21-2022 18:30-0400 Systolic blood pressure 123 mm[Hg] Roshan Janak [facility] 10-21-2022 18:00-0400 Diastolic blood pressure 86 mm[Hg] Roshan Janak [facility] 10-21-2022 18:00-0400 Heart rate 71 /min Roshan Janak [facility] 10-21-2022 18:00-0400 Respiratory rate 18 /min Roshan Janak [facility] 10-21-2022 18:00-0400 SaO2% (BldA) [Mass fraction] 99 % Roshan Janak [facility] 10-21-2022 18:00-0400 Systolic blood pressure 122 mm[Hg] Roshan Janak [facility] 10-21-2022 17:00-0400 Heart rate 73 /min Roshan Janak [facility] 10-21-2022 17:00-0400 Mean blood pressure 100 mm[Hg] Roshan Janak [facility] 10-21-2022 17:00-0400 SaO2% (BldA) [Mass fraction] 98 % Roshan Janak [facility] 10-21-2022 17:00-0400 Systolic blood pressure 127 mm[Hg] Roshan Janak [facility] 10-21-2022 15:58-0400 Body temperature 98.06 [degF] Roshan Janak [facility] 10-21-2022 15:58-0400 Heart rate 74 /min Roshan Briceno [facility] 08-18-2022 11:00-0400 Body height 175.26 cm Michael Guzman Other [facility] Other 08-18-2022 11:00-0400 Body mass index (BMI) [Ratio] 44.89 kg/m2 Michael Guzman Other [facility] Other 08-18-2022 11:00-0400 Body weight 137.89 kg Michael Guzman Other [facility] Other 08-18-2022 11:00-0400 Diastolic blood pressure 85 mm[Hg] Michael Guzman Other [facility] Other 08-18-2022 11:00-0400 Systolic blood pressure 125 mm[Hg] Michael Guzman Other [facility] Other 05-23-2022 09:46-0500 Diastolic blood pressure 65 mm[Hg] [facility] 05-23-2022 09:46-0500 Heart rate 90 /min [facility] 05-23-2022 09:46-0500 Mean blood pressure 77 mm[Hg] [facility] 05-23-2022 09:46-0500 Respiratory rate 18 /min [facility] 05-23-2022 09:46-0500 SaO2% (BldA) [Mass fraction] 95 % [facility] 05-23-2022 09:46-0500 Systolic blood pressure 101 mm[Hg] [facility] 01-15-2023 09:07-0500 Diastolic blood pressure 62 mm[Hg] [facility] 05-23-2022 09:07-0500 Heart rate 92 /min [facility] 05-23-2022 09:07-0500 Mean blood pressure 76 mm[Hg] [facility] 05-23-2022 09:07-0500 Respiratory rate 18 /min [facility] 05-23-2022 09:07-0500 SaO2% (BldA) [Mass fraction] 96 % [facility] 05-23-2022 09:07-0500 Systolic blood pressure 105 mm[Hg] [facility] 05-23-2022 08:00-0500 Diastolic blood pressure 69 mm[Hg] [facility] 05-23-2022 08:00-0500 Heart rate 96 /min [facility] 05-23-2022 08:00-0500 Mean blood pressure 83 mm[Hg] [facility] 05-23-2022 08:00-0500 Systolic blood pressure 111 mm[Hg] [facility] 05-23-2022 07:26-0500 Hourly Rounding [facility] 05-23-2022 06:50-0500 Body temperature 98.96 [degF] [facility] 03-31-2022 14:25-0500 Body weight 134.72 kg Kimberly Velazquez MD Work Phone: [facility] 03-31-2022 14:25-0500 Diastolic blood pressure 89 mm[Hg] Kimberly Velazquez MD Work Phone: [facility] 03-31-2022 14:25-0500 Heart rate 84 /min Kimberly Velazquez MD Work Phone: [facility] 03-31-2022 14:25-0500 Systolic blood pressure 125 mm[Hg] Kimberly Velazquez MD Work Phone: [facility] 12-31-2021 21:59-0400 Diastolic blood pressure 78 mm[Hg] Daniel Logan [facility] 12-31-2021 21:59-0400 Heart rate 90 /min Daniel Logan [facility] 12-31-2021 21:59-0400 Hourly Rounding Daniel Logan [facility] 12-31-2021 21:59-0400 Nursing Progress Note Reason Other: Pt resting on cart. Denies any needs at this time. Daniel Logan [facility] 12-31-2021 21:59-0400 Respiratory rate 18 /min Daniel Logan [facility] 12-31-2021 21:59-0400 SaO2% (BldA) [Mass fraction] 97 % Daniel Logan [facility] 12-31-2021 21:59-0400 Systolic blood pressure 126 mm[Hg] Daniel Logan [facility] 12-31-2021 20:59-0400 Diastolic blood pressure 74 mm[Hg] Daniel Logan [facility] 12-31-2021 20:59-0400 Heart rate 102 /min Daniel Logan [facility] 12-31-2021 20:59-0400 Hourly Rounding Daniel Logan [facility] 12-31-2021 20:59-0400 Nursing Progress Note Reason Other: Pt mediciated per orders. Denies any needs at this time. Daniel Logan [facility] 12-31-2021 20:59-0400 Respiratory rate 18 /min Daniel Logan [facility] 12-31-2021 20:59-0400 SaO2% (BldA) [Mass fraction] 98 % Daniel Logan [facility] 12-31-2021 20:59-0400 Systolic blood pressure 113 mm[Hg] Daniel Logan [facility] 12-31-2021 19:50-0400 Body temperature 98.6 [degF] Daniel Logan [facility] 12-31-2021 19:50-0400 Diastolic blood pressure 77 mm[Hg] Daniel Logan [facility] 12-31-2021 19:50-0400 Heart rate 99 /min Daniel Logan [facility] 12-31-2021 19:50-0400 Respiratory rate 18 /min Daniel Logan [facility] 12-31-2021 19:50-0400 SaO2% (BldA) [Mass fraction] 98 % Daniel Logan [facility] 12-31-2021 19:50-0400 Systolic blood pressure 121 mm[Hg] Daniel Logan [facility] 12-25-2021 00:47-0400 Diastolic blood pressure 90 mm[Hg] Kaylinn Dokken [facility] 12-25-2021 00:47-0400 Heart rate 74 /min Kaylinn Dokken [facility] 12-25-2021 00:47-0400 Nursing Progress Note Reason Other: pt states pain tolerable at this time. a&o x4, resp euqual and non labored, denies needs Kaylinn Dokken [facility] 12-25-2021 00:47-0400 Respiratory rate 16 /min Marleneylinn Dokken [facility] 12-25-2021 00:47-0400 SaO2% (BldA) [Mass fraction] 98 % Kaylinn Dokken [facility] 12-25-2021 00:47-0400 Systolic blood pressure 137 mm[Hg] Kaylinn Dokken [facility] 12-24-2021 23:00-0400 Nursing Progress Note Reason Other: pt out of dept for ct Marleneylinn Dokken [facility] 12-24-2021 21:36-0400 Body temperature 98.24 [degF] Marleneylinn Dokken [facility] 12-24-2021 21:36-0400 Diastolic blood pressure 87 mm[Hg] Marleneylinn Dokken [facility] 12-24-2021 21:36-0400 Heart rate 93 /min Rebekahinn Dokken [facility] 12-24-2021 21:36-0400 Respiratory rate 18 /min Rebekahinn Dokken [facility] 12-24-2021 21:36-0400 SaO2% (BldA) [Mass fraction] 97 % Rebekahinn Dokken [facility] 12-24-2021 21:36-0400 Systolic blood pressure 141 mm[Hg] Kaylinn Dokken [facility] 11-11-2021 08:51-0400 Body height 175.26 cm James Viktor Rodriguez [facility] Work Phone: 11-11-2021 08:51-0400 Body mass index (BMI) [Ratio] 44.15 kg/m2 James Rodriguez Work Phone[facility] Work Phone: 11-11-2021 08:51-0400 Body surface area Derived from formula 2.45 m2 James Rodriguez Work Phone: [facility] Work Phone: 11-11-2021 08:51-0400 Body weight 135.63 kg James Rodriguez Work Phone: [facility] Work Phone: 11-03-2021 13:13-0400 Blood Pressure Location Lacey LILIANAIDCLEMENT [facility] 11-03-2021 13:13-0400 Body temperature 97.52 [degF] Lacey PEARSONANAIDCLEMENT [facility] 11-03-2021 13:13-0400 Diastolic blood pressure 74 mm[Hg] Lacey SPEANAIDEL [facility] 11-03-2021 13:13-0400 Heart rate 80 /min Lacey SPEANAIDEL [facility] 11-03-2021 13:13-0400 SaO2% (BldA) [Mass fraction] 98 % Lacey LILIANAIDEL [facility] 11-03-2021 13:13-0400 Systolic blood pressure 116 mm[Hg] Lacey GUTIERRESEL [facility] 11-01-2021 22:00-0400 Blood Pressure Location Kaylinn Dokken [facility] 11-01-2021 22:00-0400 Diastolic blood pressure 72 mm[Hg] Kaylinn Dokken [facility] 11-01-2021 22:00-0400 Heart rate 80 /min Kaylinn Dokken [facility] 11-01-2021 22:00-0400 Hourly Rounding Kaylinn Dokken [facility] Comment on above: Result Comment: Patient is ready to go h ome. 11-01-2021 22:00-0400 Mean blood pressure 86 mm[Hg] Kaylinn Dokken [facility] 11-01-2021 22:00-0400 Respiratory rate 18 /min Kaylinn Dokken [facility] 11-01-2021 22:00-0400 SaO2% (BldA) [Mass fraction] 98 % Kaylinn Dokken [facility] 11-01-2021 22:00-0400 Systolic blood pressure 114 mm[Hg] Kaylinn Dokken [facility] 11-01-2021 21:00-0400 Diastolic blood pressure 74 mm[Hg] Kaylinn Dokken [facility] 11-01-2021 21:00-0400 Heart rate 86 /min Kaylinn Dokken [facility] 11-01-2021 21:00-0400 Hourly Rounding Kaylinn Dokken [facility] 11-01-2021 21:00-0400 Mean blood pressure 89 mm[Hg] Kaylinn Dokken [facility] 11-01-2021 21:00-0400 Respiratory rate 20 /min Kaylinn Dokken [facility] 11-01-2021 21:00-0400 SaO2% (BldA) [Mass fraction] 97 % Kaylinn Dokken [facility] 11-01-2021 21:00-0400 Systolic blood pressure 120 mm[Hg] Kaylinn Dokken [facility] 11-01-2021 19:07-0400 Body temperature 97.88 [degF] Kaylinn Dokken [facility] 11-01-2021 19:07-0400 Diastolic blood pressure 78 mm[Hg] Kaylinn Dokken [facility] 11-01-2021 19:07-0400 Heart rate 90 /min Kaylinn Dokken [facility] 11-01-2021 19:07-0400 Respiratory rate 17 /min Kaylinn Dokken [facility] 11-01-2021 19:07-0400 SaO2% (BldA) [Mass fraction] 96 % Kaylinn Dokken [facility] 11-01-2021 19:07-0400 Systolic blood pressure 116 mm[Hg] Kaylinn Dokken [facility] 08-25-2021 14:41-0400 Blood Pressure Location [facility] 08-25-2021 14:41-0400 Diastolic blood pressure 68 mm[Hg] [facility] 08-25-2021 14:41-0400 Heart rate 86 /min [facility] 08-25-2021 14:41-0400 Respiratory rate 16 /min [facility] 08-25-2021 14:41-0400 SaO2% (BldA) [Mass fraction] 99 % [facility] 08-25-2021 14:41-0400 Systolic blood pressure 120 mm[Hg] [facility] Encounters Encounter Date Encounter Type Care Provider Facility Start: 11-29-2023 End: 11-29-2023 Emergency department patient visit Celena Dias [facility] Start: 11-28-2023 End: 11-28-2023 Emergency department patient visit James Faulkner [facility] Start: 11-25-2023 ambulatory Aicha uBtts y:ARIC Gallegos Start: 11-23-2023 End: 11-23-2023 ambulatory SAMANTA CASTELLANOS Not Available Start: 11-01-2023 End: 11-01-2023 ambulatory JOHN PIERCE Facility:[facility] Start: 10-26-2023 Refill Edmundo tilley MD Work Phone: Endocrinology Comment on above: Refill Request Start: 10-17-2023 End: 10-17-2023 ambulatory Irasema Zacarias Facility:[facility] Start: 10-17-2023 End: 10-17-2023 Patient encounter procedure Irasema Zacarias [facility] Start: 10-11-2023 End: 10-11-2023 ambulatory MICHAELA RILEY Not Available Start: 09-22-2023 End: 09-22-2023 ambulatory Irasema Zacarias Facility:[facility] Start: 09-22-2023 End: 09-22-2023 Patient encounter procedure Irasema Zacarias [facility] Start: 09-22-2023 End: 09-22-2023 Well adult monitoring check done Irasema Zacarias [facility] Start: 08-30-2023 End: 08-30-2023 ambulatory KEYLA GUSMAN Not Available Start: 08-26-2023 ambulatory Edmundo tilley MD Work Phone: Endocrinology Comment on above: Mounjaro 5 mg Start: 07-25-2023 End: 07-25-2023 Emergency department patient visit Daron George [facility] Start: 07-06-2023 End: 07-06-2023 ambulatory KEILA LYNCH Facility:[facility] Start: 07-01-2023 End: 07-01-2023 ambulatory WILLIE GALINDO Facility: [place] Start: 07-01-2023 End: 07-01-2023 Patient encounter procedure WILLIE GALINDO [facility] [place] Start: 07-01-2023 End: 07-01-2023 ambulatory EDMUNDO DEVLIN Facility:[facility] Start: 06-14-2023 End: 06-14-2023 ambulatory Irasema Zacarias Facility:[facility] Start: 06-03-2023 End: 06-03-2023 ambulatory Aicha Dean Facility:[facility] Start: 06-03-2023 End: 06-03-2023 Patient encounter procedure Aicha Dean [facility] Start: 05-23-2023 End: 05-23-2023 ambulatory HERI BALDERRAMAO Not Available Start: 05-20-2023 End: 05-20-2023 Lab Drop off Irasema Zacarias [facility] Start: 05-20-2023 End: 05-20-2023 ambulatory Irasema Zacarias Facility:[facility] Start: 05-20-2023 End: 05-20-2023 Patient encounter procedure Aicha Dean [facility] Start: 04-06-2023 End: 04-06-2023 Emergency department patient visit James Faulkner [facility] Start: 04-04-2023 End: 04-04-2023 ambulatory BAN BENTLEY Not Available Start: 03-19-2023 End: 03-19-2023 Emergency department patient visit James Faulkner [facility] Start: 03-14-2023 End: 03-14-2023 ambulatory ANNABEL HERNANDEZ Facility:[facility] Start: 03-14-2023 End: 03-14-2023 Patient encounter procedure ANNABEL HERNANDEZ [facility] [place] Start: 03-14-2023 ambulatory Aicha Dean Facilit y:[facility] Start: 12-21-2022 End: 12-21-2022 ambulatory Irasemapita Zacarias Facility:[facility] Start: 12-21-2022 End: 12-21-2022 Patient encounter procedure Irasema Zacarias [facility] Start: 12-21-2022 End: 12-21-2022 Well adult monitoring check done Irasema Zacarias [facility] Start: 10-29-2022 End: 10-29-2022 ambulatory Michael Guzman Other [facility] Other Start: 10-29-2022 Office outpatient visit 15 minutes Michael Guzman [facility] Start: 10-28-2022 End: 10-28-2022 ambulatory Michael Guzman Other [facility] Other Start: 10-28-2022 Telephone encounter Michael [facility] Start: 10-22-2022 End: 10-22-2022 Lab Drop off Roshan Briceno [facility] Start: 10-21-2022 End: 10-21-2022 Emergency department patient visit Roshan Briceno [facility] Start: 09-13-2022 Telephone encounter Maricruz Abbasi [facility] [place] Comment on above: Smoking Cessation Start: 09-10-2022 End: 09-10-2022 [facility] Susan Garcia PhD Work Phone: Endocrinology [facility] Comment on above: Psychological factor s affecting morbid obesity (HCC) (Primary Dx); Tobacco use disorder Start: 08-18-2022 End: 08-18-2022 ambulatory Michael Guzman Other [facility] Other Start: 08-18-2022 Office outpatient visit 15 minutes Michael Guzman [facility] Start: 07-22-2022 Garfield westbrook MD Work Phone: Endocrinology Start: 06-24-2022 End: 06-24-2022 ambulatory Kimberly Velazquez MD Work Phone: Endocrinology Comment on above: Class 3 severe obesi ty due to excess calories without serious comorbidity with body mass index (BMI) of 40.0 to 44.9 in adult ([facility]) (Primary Dx); PCOS (polycystic ovarian syndrome); Type 2 diabetes mellitus without complication, without long-term current use of insulin ([facility]) Start: 06-24-2022 End: 06-24-2022 Telemedicine consultation with patient Kimberly Velazquez MD Work Phone: [facility] Start: 06-21-2022 Telephone encounter Kimberly gonzales MD Work Phone: Endocrinology Comment on above: Prep for virtual vis it Start: 05-27-2022 Refill Kimberly westbrook MD Work Phone: Endocrinology Start: 05-23-2022 End: 05-23-2022 Emergency department patient visit Judith Delacruz [facility] Start: 05-11-2022 Refill Kimberly westbrook MD Work Phone: Endocrinology Start: 03-31-2022 End: 03-31-2022 Patient encounter procedure Kimberly Velazquez MD Work Phone: Endocrinology Comment on above: Abnormal glucose (Pr imary Dx); Class 3 severe obesity due to excess calories with serious comorbidity and body mass index (BMI) of 40.0 to 44.9 in adult ([facility]); PCOS (polycystic ovarian syndrome) Start: 02-11-2022 End: 02-11-2022 Off-Site SAUD BLUM [facility] [place] Start: 12-31-2021 End: 12-31-2021 Emergency department patient visit Daniel Ford [facility] Start: 12-24-2021 End: 12-25-2021 Emergency department patient visit Celena Dias [facility] Start: 12-18-2021 Chart Update James bazzij Work Phone: [facility] Work Phone: Start: 11-24-2021 End: 11-24-2021 Lab Drop off Nerissa Rivera [facility] Start: 11-11-2021 Office outpatient ne w 60 minutes James Rodriguez [facility] Work Phone: Start: 11-03-2021 End: 11-03-2021 Patient encounter procedure Lacey LAZO [facility] Start: 11-01-2021 End: 11-01-2021 Emergency department patient visit Celena Dias [facility] Start: 10-23-2021 End: 10-23-2021 Patient encounter procedure Liz Jo [facility] Start: 08-31-2021 End: 01-04-2022 Recurring Lacey LAZO [facility] Start: 08-25-2021 End: 08-25-2021 Lab Drop off Nerissa Barillas Olindahumberto [facility] Start: 08-25-2021 End: 08-25-2021 Patient encounter procedure Nerissa Rivera [facility] Start: 08-20-2021 End: 08-20-2021 Patient encounter procedure Lacey LAZO [facility] Start: 08-18-2021 Refill Mukund becker MD Work Phone: Pulmonary Medicine Comment on above: Refill Request Start: 08-18-2021 End: 08-18-2021 Patient encounter procedure Sharondaheather CORTEZ [facility] Start: 07-29-2021 End: 07-29-2021 Patient encounter procedure CHERIE VALENTIN [facility] Start: 07-07-2021 End: 07-07-2021 Emergency department patient visit Kanu Becker Ronni Facility:[facility] Start: 07-06-2021 End: 07-06-2021 ambulatory Kem Patel Facility:[facility] Start: 04-03-2021 End: 08-30-2021 Recurring Sharonda CORTEZ [facility] Start: 06-03-2017 End: 06-04-2017 Ambulatory SHAJI CHOE Facility:[facility] Start: 05-29-2017 End: 05-29-2017 Ambulatory ANTON HARMON Facility:[facility] Start: 05-25-2017 End: 05-25-2017 Ambulatory JAMES BLACKMON Facility:[facility] Procedures Date Procedure Procedure Detail Performing Clinician Start: 03-31-2022 Hemoglobin A1c/Hemoglobin.total in Blood Kimberly Velazquez MD Work Phone: Start: 02-01-2018 Colonoscopy CHERIE CO X Start: 06-01-2016 EGD & Colonoscopy KIP VALENTIN Start: 07-31-2014 EGD & Colooscopy MARICARMEN VALENTIN Start: 04-28-2012 Colonoscopy CHERIE CO X Colonoscopy CHERIE VALENTIN Comment on above: x2 with Dr. Velasco x2 with Dr. Velasco Decompression of lum bar spine CHERIE VALENTIN laproscopy x3 CHERIE VALENTIN Tonsillectomy CHERIE VALENTIN Tonsillectomy Tonsillectomy( Confirmed ) CHERIE VALENTIN Plan of Treatment Date Care Activity Detail Author Start: 11-03-2030 Urine microalbumin profile DTaP,Tdap,Td Vaccine (2 - Td or Tdap) [facility] Start: 09-25-2024 [facility] Start: 07-06-2024 Hepatitis B surface antibody level LDL Cholesterol [facility] Start: 01-13-2024 ambulatory Ambulatory Facility:[facility] [place] Start: 01-08-2024 Influenza vaccination Influenz a Vaccine (Season Ended) [facility] Start: 01-04-2024 Hemoglobin A1c measurement HbA1C [facility] Start: 12-12-2023 ambulatory Ambulatory Facility:[facility] Start: 12-05-2023 End: 12-05-2023 Patient encounter procedure 12/05/2023 10:10 AM EDT Office Visit Endocrinology [id number] [place] [id number] Edmundo Devlin MD [address] [place] [address] [place] [address] follow up Endocrinology Comment on above: follow up Start: 03-31-2023 3 comp foot exam completed DIABETIC FOOT EXAM [facility] Start: 03-31-2023 Diabetic foot examination Diabetic Foot Exam [facility] Start: 01-07-2023 Covid-19 Vaccine ( season) Covid-19 Vaccine ( season) [facility] Start: 01-07-2023 Influenza vaccination INFLUENZ A (Season Ended) [facility] Start: 10-11-2022 End: 12-11-2022 NICOTINE & METAB, UR NICOTINE & METAB, UR Lab Routine Tobacco use disorder Expected: 10/11/2022 (Approximate), Expires: 12/11/2022 [facility] Work Phone: Comment on above: Expected: 10/11/2022 (Approximate), Expires: 12/11/2022 Start: 10-11-2022 End: 12-11-2022 TOX SCREEN ROUT UR TOX SCREEN ROUT UR Lab Routine Psychological factors affecting morbid obesity (HCC) Expected: 10/11/2022 (Approximate), Expires: 12/11/2022 [facility] Work Phone: Comment on above: Expected: 10/11/2022 (Approximate), Expires: 12/11/2022 Start: 09-28-2022 Hemoglobin A1c/Hemoglobin.total in Blood HBA1C [facility] Start: 01-13-2022 DWAIN, Provider : Kerri Adkins, Status: Pen, Time: 10:30 AM DWAIN, Provider: Kerri Adkins, Status: Jayden, Time: 10:30 AM [facility] Work Phone: Start: 01-07-2022 Influenza vaccination C [facility] Start: 2015 HPV TESTING HPV TESTING [facility] Start: 2015 Screening for malign ant neoplasm of cervix HPV Testing [facility] Start: 12-23-2014 PAP TESTING PAP TESTING [facility] Start: 12-23-2014 Screening for malign ant neoplasm of cervix Pap Testing [facility] Start: 12-23-2012 Screening for malign ant neoplasm of cervix Cervical Cancer Screening [facility] Start: 04-30-2010 Hepatitis B surface antibody level LDL CHOLESTEROL [facility] Start: 2004 Hepatitis A Vaccine (1 of 2 - Risk 2-dose series) Hepatitis A Vaccine (1 of 2 - Risk 2-dose series) [facility] Start: 2004 Urine microalbumin profile DTAP,TDAP,TD (1 - Tdap) [facility] Start: 2003 ANNUAL PCP TEAM BARREL CAP SETTER ERIKA DISEASE VISIT ANNUAL PCP TEAM CHRONIC DISEASE VISIT [facility] Start: 2003 HIV SCREENING HIV SCREENING [facility] Start: 2003 HIV screening HIV Screening [facility] Start: 2003 MMR (1 of 2 - Risk 2-dose series) MMR (1 of 2 - Risk 2-dose series) [facility] Start: 1995 Glaucoma screening Dilated Retinal E xam [facility] Start: 1995 Hepatitis B screening URINE ALBUMIN:CREATININE RATIO [facility] Start: 1995 Hepatitis C antibody , confirmatory test DILATED RETINAL EXAM [facility] Start: 1995 Meningococcal B Vaccine: Consider Based On Risk (1 of 4 - Increased Risk) Meningococcal B Vaccine: Consider Based On Risk (1 of 4 - Increased Risk) [facility] Start: 1995 MENINGOCOCCAL B: Consider based on risk (1 of 4 - Increased Risk Bexsero 2-dose series) MENINGOCOCCAL B: Consider based on risk (1 of 4 - Increased Risk Bexsero 2-dose series) [facility] Start: 1991 PNEUMOCOCCAL (1 - PCV) PNEUMOCOCCAL (1 - PCV) [facility] Start: 1991 Pneumococcal vaccination Pneumococcal Vaccine (1 of 2 - PCV) [facility] Start: 1990 COVID-19 VACCINE (1) COVID-19 VACCIN E (1) [facility] Start: 1986 HEPATITIS A (1 of 2 - Risk 2-dose series) HEPATITIS A (1 of 2 - Risk 2-dose series) [facility] Start: 1985 COVID-19 VACCINE (#1) COVID-19 VACCI NE (#1) [facility] Hemoglobin A1c/Hemoglobin.total in Blood HEMOGLOBIN A1C (POC) Lab Routine Abnormal glucose Ordered: 03/31/2022 [facility] Work Phone: Comment on above: Ordered: 03/31/2022 [facility] Immun[facility] Immunization Date Immunization Notes Care Provider Tasha kessler 11-03-2020 tetanus toxoid, reduced diphtheria toxoid, and acellular pertussis vaccine, adsorbed; Translations: [Boostrix (Tdap)] CHERIE VALENTIN [facility] 03-15-2018 influenza virus vaccine, unspecified formulation Edmundo Devlin MD Work Phone: [facility] 09-19-1997 measles, mumps and rubella virus vaccine Sudhakar Sandro [facility] 11-18-1988 Hib, unspecified formulation Liz Jo [facility] 01-29-1987 measles, mumps and rubella virus vaccine [facility] Jo [facility] NEGATED: Highlighted row has not occurred!03-14-2023 influenza virus vaccine, unspecified formulation ANNABEL HERNANDEZ [facility] [place] Comment on above: Result Comment: massiel rgic to eggs NEGATED: Highlighted row has not occurred!09-23-2022 SARS-CoV-2 mRNA (tozinameran 5y-11y) vaccine Roshan Briceno [facility] NEGATED: Highlighted row has not occurred!09-30-2021 SARS-CoV-2 mRNA (tozinameran 5y-11y) vaccine [facility] Jo [facility] NEGATED: Highlighted row has not occurred!09-22-2021 SARS-CoV-2 mRNA (tozinameran 5y-11y) vaccine [facility] Jo [facility] NEGATED: Highlighted row has not occurred!09-01-2020 SARS-CoV-2 (COVID-19) mRNA-1273 vaccine CHERIE VALENTIN [facility] NEGATED: Highlighted row has not occurred!04-16-2020 influenza virus vaccine, unspecified formulation CHERIE VALENTIN [facility] NEGATED: Highlighted row has not occurred!02-16-2019 influenza virus vaccine, unspecified formulation CHERIE VALENTIN [facility] Payers Date Payer Category Payer Medicare [id number] 2021 Private Health Insurance [id number] 2021 Self-pay 2021 Medicare [id number] 2019 [place] [id number] 2019-Present [phone] [address] [place] [address] Medicaid [id number] 2019 Medicaid MEDICAID [facility] MEDICAID [id number] 2019-Present [phone] [address] [place] [address] Medicaid [id number] 2010 Medicaid [id number] 1985 Unknown [id number] [id number] 259 1985 Unknown [id number] 2.16.840.1.086794.3.579.2.1 259 1985 Unknown [id number] 2.16.840.1.868673.3.579.2.1 259 1985 Unknown [id number] 2.16.840.1.761374.3.579.2.1 259 1985 Unknown [id number] 2.16.840.1.964539.3.579.2.1 259 1985 Unknown [id number] 2.16.840.1.690879.3.579.2.7 27 1985 Unknown [id number] 2.16.840.1.595867.3.579.2.7 27 1985 Unknown [id number] 2.16.840.1.847462.3.579.2.7 27 1985 Unknown [id number] 2.16.840.1.377827.3.579.2.7 27 1985 Unknown [id number] 2.16.840.1.321300.3.579.2.7 27 1985 Unknown [id number] 2.16.840.1.389289.3.579.2.7 27 1985 Unknown [id number] 2.16.840.1.498839.3.579.2.7 27 1985 Unknown [id number] 2.16.840.1.904884.3.579.2.7 27 1985 Unknown [id number] 2.16.840.1.935014.3.579.2.7 27 1985 Unknown [id number] 2.16.840.1.172718.3.579.2.7 27 1985 Unknown [id number] 2.16.840.1.144650.3.579.2.7 27 1985 Unknown [id number] 2.16.840.1.583744.3.579.2.7 27 1985 Unknown [id number] 2.16.840.1.938010.3.579.2.7 27 1985 Unknown [id number] 2.16.840.1.334765.3.579.2.7 27 1985 Unknown [id number] 2.16.840.1.636363.3.579.2.7 27 1985 Unknown [id number] 2.16.840.1.331776.3.579.2.7 27 1985 Unknown [id number] 2.16.840.1.167532.3.579.2.7 27 1959 Medicare [id number] Unknown Unknown [id number] 2.16.840.1.758081.3.579.2.5 31 Unknown [id number] 2.16.840.1.008068.3.579.2.5 31 Social History Date Type Detail Facility Start: 07-23-2021 End: 09-22-2023 Tobacco smoking status Never smoked tobacco (finding) [facility] Comment on above: denies use denies use Tobacco [facility] Comment on above: denies use denies use Start: 2020 End: 07-01-2023 Sex Assigned At Female [facility] Start: 03-31-2022 Tobacco smoking stat us NHIS Ex-smoker [facility] End: 05-09-2006 History of tobacco use Current smoker [facility] End: 05-09-2006 History of tobacco use Cigarette Smoker [facility] Start: 02-20-2020 End: 07-01-2023 Alcohol intake Current non-drinker of alcohol (finding) [facility] Start: 07-09-2008 End: 03-31-2022 Tobacco Comment PATIENT SMOKED 4-5 CIGARETTES DAILY BEFORE QUITTING [facility] Start: 1985 Sex Assigned At Female [facility] Start: 2020 End: 03-31-2022 Cigarettes smoked current (pack per day) - Reported 0.5 [facility] Start: 03-31-2022 Tobacco use and exposure Smokeless tobacco non-user [facility] Start: 03-21-2022 End: 03-31-2022 Exposure to SARS-CoV-2 (event) Not sure [facility] Tobacco [facility] Comment on above: Denies. Tobacco smoking status No Smokin g Status Entered [facility] Start: 06-05-2019 Gender identity Identifies as female gender (finding) [facility] Start: 06-05-2019 Sexual orientation Heterosexual (shiela duff) [facility] Medical Equipment Procedure Code Equipment Code Equipment Origin al Text Equipment Identifier Dates lancets, See Instructions, 100 EA, 3, lancets test daily E11.9, [facility] #[id number], Supply, 175, cm, 04/16/20 15:38:00 EST, Height/Length Dosing, 133.2, kg, 04/16/20 15:38:00 EST, Weight Dosing Start: 04-16-2020 Test strips-True Metrix, See Instructions, 100 EA, 2, Blood glucose test strips. Use daily to test fasting blood sugars and as needed for symptomatic high or low blood sugars, [facility], Supply, 175, cm, 09/15/20 13:52:00 EDT, Hei... Start: 09-16-2020 na, See Instruct ions, 1 bottle(s), 6, provide patient with lancets and glucometer strips. Check glucose daily., [facility] #[id number], Supply Start: 03-29-2019 lancets, See Instructions, 100 EA, 3, lancets test daily E11.9, [facility] #[id number], Supply, 175, cm, 04/16/20 15:38:00 EST, Height/Length Dosing, 133.2, kg, 04/16/20 15:38:00 EST, Weight Dosing Start: 04-16-2020 Test strips-True Metrix, See Instructions, 100 EA, 2, Blood glucose test strips. Use daily to test fasting blood sugars and as needed for symptomatic high or low blood sugars, [facility], Supply, 175, cm, 09/15/20 13:52:00 EDT, Hei... Start: 09-16-2020 na, See Instruct ions, 1 bottle(s), 6, provide patient with lancets and glucometer strips. Check glucose daily., [facility] #[id number], Supply Start: 03-29-2019 lancets, See Instructions, 100 EA, 3, lancets test daily E11.9, [facility] #[id number], Supply, 175, cm, 04/16/20 15:38:00 EST, Height/Length Dosing, 133.2, kg, 04/16/20 15:38:00 EST, Weight Dosing Start: 04-16-2020 Test strips-True Metrix, See Instructions, 100 EA, 2, Blood glucose test strips. Use daily to test fasting blood sugars and as needed for symptomatic high or low blood sugars, [facility], Supply, 175, cm, 09/15/20 13:52:00 EDT, Hei... Start: 09-16-2020 na, See Instruct ions, 1 bottle(s), 6, provide patient with lancets and glucometer strips. Check glucose daily., [facility] #[id number], Supply Start: 03-29-2019 lancets, See Instructions, 100 EA, 3, lancets test daily E11.9, [facility] #[id number], Supply, 175, cm, 04/16/20 15:38:00 EST, Height/Length Dosing, 133.2, kg, 04/16/20 15:38:00 EST, Weight Dosing Start: 04-16-2020 Test strips-True Metrix, See Instructions, 100 EA, 2, Blood glucose test strips. Use daily to test fasting blood sugars and as needed for symptomatic high or low blood sugars, [facility], Supply, 175, cm, 09/15/20 13:52:00 EDT, Hei... Start: 09-16-2020 na, See Instruct ions, 1 bottle(s), 6, provide patient with lancets and glucometer strips. Check glucose daily., [facility] #[id number], Supply Start: 03-29-2019 lancets, See Instructions, 100 EA, 3, lancets test daily E11.9, [facility] #[id number], Supply, 175, cm, 04/16/20 15:38:00 EST, Height/Length Dosing, 133.2, kg, 04/16/20 15:38:00 EST, Weight Dosing Start: 04-16-2020 Test strips-True Metrix, See Instructions, 100 EA, 2, Blood glucose test strips. Use daily to test fasting blood sugars and as needed for symptomatic high or low blood sugars, [facility], Supply, 175, cm, 09/15/20 13:52:00 EDT, Hei... Start: 09-16-2020 na, See Instruct ions, 1 bottle(s), 6, provide patient with lancets and glucometer strips. Check glucose daily., [facility] #[id number], Supply Start: 03-29-2019 lancets, See Instructions, 100 EA, 3, lancets test daily E11.9, [facility] #[id number], Supply, 175, cm, 04/16/20 15:38:00 EST, Height/Length Dosing, 133.2, kg, 04/16/20 15:38:00 EST, Weight Dosing Start: 04-16-2020 Test strips-True Metrix, See Instructions, 100 EA, 2, Blood glucose test strips. Use daily to test fasting blood sugars and as needed for symptomatic high or low blood sugars, [facility], Supply, 175, cm, 09/15/20 13:52:00 EDT, Hei... Start: 09-16-2020 na, See Instruct ions, 1 bottle(s), 6, provide patient with lancets and glucometer strips. Check glucose daily., [facility] #[id number], Supply Start: 03-29-2019 lancets, See Instructions, 100 EA, 3, lancets test daily E11.9, [facility] #[id number], Supply, 175, cm, 04/16/20 15:38:00 EST, Height/Length Dosing, 133.2, kg, 04/16/20 15:38:00 EST, Weight Dosing Start: 04-16-2020 Test strips-True Metrix, See Instructions, 100 EA, 2, Blood glucose test strips. Use daily to test fasting blood sugars and as needed for symptomatic high or low blood sugars, [facility], Supply, 175, cm, 09/15/20 13:52:00 EDT, Hei... Start: 09-16-2020 na, See Instruct ions, 1 bottle(s), 6, provide patient with lancets and glucometer strips. Check glucose daily., [facility] #[id number], Supply Start: 03-29-2019 lancets, See Instructions, 100 EA, 3, lancets test daily E11.9, [facility] #[id number], Supply, 175, cm, 04/16/20 15:38:00 EST, Height/Length Dosing, 133.2, kg, 04/16/20 15:38:00 EST, Weight Dosing Start: 04-16-2020 Test strips-True Metrix, See Instructions, 100 EA, 2, Blood glucose test strips. Use daily to test fasting blood sugars and as needed for symptomatic high or low blood sugars, [facility], Supply, 175, cm, 09/15/20 13:52:00 EDT, Hei... Start: 09-16-2020 na, See Instruct ions, 1 bottle(s), 6, provide patient with lancets and glucometer strips. Check glucose daily., [facility] #[id number], Supply Start: 03-29-2019 lancets, See Instructions, 100 EA, 3, lancets test daily E11.9, [facility] #[id number], Supply, 175, cm, 04/16/20 15:38:00 EST, Height/Length Dosing, 133.2, kg, 04/16/20 15:38:00 EST, Weight Dosing Start: 04-16-2020 Test strips-True Metrix, See Instructions, 100 EA, 2, Blood glucose test strips. Use daily to test fasting blood sugars and as needed for symptomatic high or low blood sugars, [facility], Supply, 175, cm, 09/15/20 13:52:00 EDT, Hei... Start: 09-16-2020 na, See Instruct ions, 1 bottle(s), 6, provide patient with lancets and glucometer strips. Check glucose daily., [facility] #[id number], Supply Start: 03-29-2019 lancets, See Instructions, 100 EA, 3, lancets test daily E11.9, [facility] #[id number], Supply, 175, cm, 04/16/20 15:38:00 EST, Height/Length Dosing, 133.2, kg, 04/16/20 15:38:00 EST, Weight Dosing Start: 04-16-2020 Test strips-True Metrix, See Instructions, 100 EA, 2, Blood glucose test strips. Use daily to test fasting blood sugars and as needed for symptomatic high or low blood sugars, [facility], Supply, 175, cm, 09/15/20 13:52:00 EDT, Hei... Start: 09-16-2020 na, See Instruct ions, 1 bottle(s), 6, provide patient with lancets and glucometer strips. Check glucose daily., [facility] #[id number], Supply Start: 03-29-2019 lancets, See Instructions, 100 EA, 3, lancets test daily E11.9, [facility] #[id number], Supply, 175, cm, 04/16/20 15:38:00 EST, Height/Length Dosing, 133.2, kg, 04/16/20 15:38:00 EST, Weight Dosing Start: 04-16-2020 Test strips-True Metrix, See Instructions, 100 EA, 2, Blood glucose test strips. Use daily to test fasting blood sugars and as needed for symptomatic high or low blood sugars, [facility], Supply, 175, cm, 09/15/20 13:52:00 EDT, Hei... Start: 09-16-2020 na, See Instruct ions, 1 bottle(s), 6, provide patient with lancets and glucometer strips. Check glucose daily., [facility] #[id number], Supply Start: 03-29-2019 lancets, See Instructions, 100 EA, 3, lancets test daily E11.9, [facility] #[id number], Supply, 175, cm, 04/16/20 15:38:00 EST, Height/Length Dosing, 133.2, kg, 04/16/20 15:38:00 EST, Weight Dosing Start: 04-16-2020 Test strips-True Metrix, See Instructions, 100 EA, 2, Blood glucose test strips. Use daily to test fasting blood sugars and as needed for symptomatic high or low blood sugars, [facility], Supply, 175, cm, 09/15/20 13:52:00 EDT, Hei... Start: 09-16-2020 na, See Instruct ions, 1 bottle(s), 6, provide patient with lancets and glucometer strips. Check glucose daily., [facility] #[id number], Supply Start: 03-29-2019 lancets, See Instructions, 100 EA, 3, lancets test daily E11.9, [facility] #[id number], Supply, 175, cm, 04/16/20 15:38:00 EST, Height/Length Dosing, 133.2, kg, 04/16/20 15:38:00 EST, Weight Dosing Start: 04-16-2020 Test strips-True Metrix, See Instructions, 100 EA, 2, Blood glucose test strips. Use daily to test fasting blood sugars and as needed for symptomatic high or low blood sugars, [facility], Supply, 175, cm, 09/15/20 13:52:00 EDT, Hei... Start: 09-16-2020 na, See Instruct ions, 1 bottle(s), 6, provide patient with lancets and glucometer strips. Check glucose daily., [facility] #[id number], Supply Start: 03-29-2019 lancets, See Instructions, 100 EA, 3, lancets test daily E11.9, [facility] #[id number], Supply, 175, cm, 04/16/20 15:38:00 EST, Height/Length Dosing, 133.2, kg, 04/16/20 15:38:00 EST, Weight Dosing Start: 04-16-2020 Test strips-True Metrix, See Instructions, 100 EA, 2, Blood glucose test strips. Use daily to test fasting blood sugars and as needed for symptomatic high or low blood sugars, [facility], Supply, 175, cm, 09/15/20 13:52:00 EDT, Hei... Start: 09-16-2020 na, See Instruct ions, 1 bottle(s), 6, provide patient with lancets and glucometer strips. Check glucose daily., [facility] #[id number], Supply Start: 03-29-2019 lancets, See Instructions, 100 EA, 3, lancets test daily E11.9, [facility] #[id number], Supply, 175, cm, 04/16/20 15:38:00 EST, Height/Length Dosing, 133.2, kg, 04/16/20 15:38:00 EST, Weight Dosing Start: 04-16-2020 Test strips-True Metrix, See Instructions, 100 EA, 2, Blood glucose test strips. Use daily to test fasting blood sugars and as needed for symptomatic high or low blood sugars, [facility], Supply, 175, cm, 09/15/20 13:52:00 EDT, Hei... Start: 09-16-2020 na, See Instruct ions, 1 bottle(s), 6, provide patient with lancets and glucometer strips. Check glucose daily., [facility] #[id number], Supply Start: 03-29-2019 Start: 06-15-2018 lancets, See Instructions, 100 EA, 3, lancets test daily E11.9, [facility] #[id number], Supply, 175, cm, 04/16/20 15:38:00 EST, Height/Length Dosing, 133.2, kg, 04/16/20 15:38:00 EST, Weight Dosing Start: 04-16-2020 Test strips-True Metrix, See Instructions, 100 EA, 2, Blood glucose test strips. Use daily to test fasting blood sugars and as needed for symptomatic high or low blood sugars, [facility], Supply, 175, cm, 09/15/20 13:52:00 EDT, Hei... Start: 09-16-2020 na, See Instruct ions, 1 bottle(s), 6, provide patient with lancets and glucometer strips. Check glucose daily., [facility] #[id number], Supply Start: 03-29-2019 lancets, See Instructions, 100 EA, 3, lancets test daily E11.9, [facility] #[id number], Supply, 175, cm, 04/16/20 15:38:00 EST, Height/Length Dosing, 133.2, kg, 04/16/20 15:38:00 EST, Weight Dosing Start: 04-16-2020 Test strips-True Metrix, See Instructions, 100 EA, 2, Blood glucose test strips. Use daily to test fasting blood sugars and as needed for symptomatic high or low blood sugars, [facility], Supply, 175, cm, 09/15/20 13:52:00 EDT, Hei... Start: 09-16-2020 na, See Instruct ions, 1 bottle(s), 6, provide patient with lancets and glucometer strips. Check glucose daily., [facility] #[id number], Supply Start: 03-29-2019 lancets, See Instructions, 100 EA, 3, lancets test daily E11.9, [facility] #[id number], Supply, 175, cm, 04/16/20 15:38:00 EST, Height/Length Dosing, 133.2, kg, 04/16/20 15:38:00 EST, Weight Dosing Start: 04-16-2020 Test strips-True Metrix, See Instructions, 100 EA, 2, Blood glucose test strips. Use daily to test fasting blood sugars and as needed for symptomatic high or low blood sugars, [facility], Supply, 175, cm, 09/15/20 13:52:00 EDT, Hei... Start: 09-16-2020 na, See Instruct ions, 1 bottle(s), 6, provide patient with lancets and glucometer strips. Check glucose daily., [facility] #[id number], Supply Start: 03-29-2019 lancets, See Instructions, 100 EA, 3, lancets test daily E11.9, [facility] #[id number], Supply, 175, cm, 04/16/20 15:38:00 EST, Height/Length Dosing, 133.2, kg, 04/16/20 15:38:00 EST, Weight Dosing Start: 04-16-2020 Test strips-True Metrix, See Instructions, 100 EA, 2, Blood glucose test strips. Use daily to test fasting blood sugars and as needed for symptomatic high or low blood sugars, [facility], Supply, 175, cm, 09/15/20 13:52:00 EDT, Height/Length Dosing, 128, kg, 09/15/20 13:52:00 EDT, Weight Dosing Start: 09-16-2020 na, See Instruct ions, 1 bottle(s), 6, provide patient with lancets and glucometer strips. Check glucose daily., [facility] #[id number], Supply Start: 03-29-2019 lancets, See Instructions, 100 EA, 3, lancets test daily E11.9, [facility] #[id number], Supply, 175, cm, 04/16/20 15:38:00 EST, Height/Length Dosing, 133.2, kg, 04/16/20 15:38:00 EST, Weight Dosing Start: 04-16-2020 Test strips-True Metrix, See Instructions, 100 EA, 2, Blood glucose test strips. Use daily to test fasting blood sugars and as needed for symptomatic high or low blood sugars, [facility], Supply, 175, cm, 09/15/20 13:52:00 EDT, Height/Length Dosing, 128, kg, 09/15/20 13:52:00 EDT, Weight Dosing Start: 09-16-2020 na, See Instruct ions, 1 bottle(s), 6, provide patient with lancets and glucometer strips. Check glucose daily., [facility] #[id number], Supply Start: 03-29-2019 lancets, See Instructions, 100 EA, 3, lancets test daily E11.9, [facility] #[id number], Supply, 175, cm, 04/16/20 15:38:00 EST, Height/Length Dosing, 133.2, kg, 04/16/20 15:38:00 EST, Weight Dosing Start: 04-16-2020 Test strips-True Metrix, See Instructions, 100 EA, 2, Blood glucose test strips. Use daily to test fasting blood sugars and as needed for symptomatic high or low blood sugars, [facility], Supply, 175, cm, 09/15/20 13:52:00 EDT, Height/Length Dosing, 128, kg, 09/15/20 13:52:00 EDT, Weight Dosing Start: 09-16-2020 na, See Instruct ions, 1 bottle(s), 6, provide patient with lancets and glucometer strips. Check glucose daily., [facility] #[id number], Supply Start: 03-29-2019 lancets, See Instructions, 100 EA, 3, lancets test daily E11.9, [facility] #[id number], Supply, 175, cm, 04/16/20 15:38:00 EST, Height/Length Dosing, 133.2, kg, 04/16/20 15:38:00 EST, Weight Dosing Start: 04-16-2020 Test strips-True Metrix, See Instructions, 100 EA, 2, Blood glucose test strips. Use daily to test fasting blood sugars and as needed for symptomatic high or low blood sugars, [facility], Supply, 175, cm, 09/15/20 13:52:00 EDT, Height/Length Dosing, 128, kg, 09/15/20 13:52:00 EDT, Weight Dosing Start: 09-16-2020 na, See Instruct ions, 1 bottle(s), 6, provide patient with lancets and glucometer strips. Check glucose daily., [facility] #[id number], Supply Start: 03-29-2019 lancets, See Instructions, 100 EA, 3, lancets test daily E11.9, [facility] #[id number], Supply, 175, cm, 04/16/20 15:38:00 EST, Height/Length Dosing, 133.2, kg, 04/16/20 15:38:00 EST, Weight Dosing Start: 04-16-2020 Test strips-True Metrix, See Instructions, 100 EA, 2, Blood glucose test strips. Use daily to test fasting blood sugars and as needed for symptomatic high or low blood sugars, [facility], Supply, 175, cm, 09/15/20 13:52:00 EDT, Height/Length Dosing, 128, kg, 09/15/20 13:52:00 EDT, Weight Dosing Start: 09-16-2020 na, See Instruct ions, 1 bottle(s), 6, provide patient with lancets and glucometer strips. Check glucose daily., [facility] #[id number], Supply Start: 03-29-2019 lancets, See Instructions, 100 EA, 3, lancets test daily E11.9, [facility] #[id number], Supply, 175, cm, 04/16/20 15:38:00 EST, Height/Length Dosing, 133.2, kg, 04/16/20 15:38:00 EST, Weight Dosing Start: 04-16-2020 Test strips-True Metrix, See Instructions, 100 EA, 2, Blood glucose test strips. Use daily to test fasting blood sugars and as needed for symptomatic high or low blood sugars, [facility], Supply, 175, cm, 09/15/20 13:52:00 EDT, Height/Length Dosing, 128, kg, 09/15/20 13:52:00 EDT, Weight Dosing Start: 09-16-2020 na, See Instruct ions, 1 bottle(s), 6, provide patient with lancets and glucometer strips. Check glucose daily., [facility] #[id number], Supply Start: 03-29-2019 lancets, See Instructions, 100 EA, 3, lancets test daily E11.9, [facility] #[id number], Supply, 175, cm, 04/16/20 15:38:00 EST, Height/Length Dosing, 133.2, kg, 04/16/20 15:38:00 EST, Weight Dosing Start: 04-16-2020 Test strips-True Metrix, See Instructions, 100 EA, 2, Blood glucose test strips. Use daily to test fasting blood sugars and as needed for symptomatic high or low blood sugars, [facility], Supply, 175, cm, 09/15/20 13:52:00 EDT, Height/Length Dosing, 128, kg, 09/15/20 13:52:00 EDT, Weight Dosing Start: 09-16-2020 na, See Instruct ions, 1 bottle(s), 6, provide patient with lancets and glucometer strips. Check glucose daily., [facility] #[id number], Supply Start: 03-29-2019 lancets, See Instructions, 100 EA, 3, lancets test daily E11.9, [facility] #[id number], Supply, 175, cm, 04/16/20 15:38:00 EST, Height/Length Dosing, 133.2, kg, 04/16/20 15:38:00 EST, Weight Dosing Start: 04-16-2020 Test strips-True Metrix, See Instructions, 100 EA, 2, Blood glucose test strips. Use daily to test fasting blood sugars and as needed for symptomatic high or low blood sugars, [facility], Supply, 175, cm, 09/15/20 13:52:00 EDT, Height/Length Dosing, 128, kg, 09/15/20 13:52:00 EDT, Weight Dosing Start: 09-16-2020 na, See Instruct ions, 1 bottle(s), 6, provide patient with lancets and glucometer strips. Check glucose daily., [facility] #[id number], Supply Start: 03-29-2019 lancets, See Instructions, 100 EA, 3, lancets test daily E11.9, [facility] #[id number], Supply, 175, cm, 04/16/20 15:38:00 EST, Height/Length Dosing, 133.2, kg, 04/16/20 15:38:00 EST, Weight Dosing Start: 04-16-2020 Test strips-True Metrix, See Instructions, 100 EA, 2, Blood glucose test strips. Use daily to test fasting blood sugars and as needed for symptomatic high or low blood sugars, [facility], Supply, 175, cm, 09/15/20 13:52:00 EDT, Height/Length Dosing, 128, kg, 09/15/20 13:52:00 EDT, Weight Dosing Start: 09-16-2020 na, See Instruct ions, 1 bottle(s), 6, provide patient with lancets and glucometer strips. Check glucose daily., [facility] #[id number], Supply Start: 03-29-2019 lancets, See Instructions, 100 EA, 3, lancets test daily E11.9, [facility] #[id number], Supply, 175, cm, 04/16/20 15:38:00 EST, Height/Length Dosing, 133.2, kg, 04/16/20 15:38:00 EST, Weight Dosing Start: 04-16-2020 Test strips-True Metrix, See Instructions, 100 EA, 2, Blood glucose test strips. Use daily to test fasting blood sugars and as needed for symptomatic high or low blood sugars, [facility], Supply, 175, cm, 09/15/20 13:52:00 EDT, Height/Length Dosing, 128, kg, 09/15/20 13:52:00 EDT, Weight Dosing Start: 09-16-2020 na, See Instruct ions, 1 bottle(s), 6, provide patient with lancets and glucometer strips. Check glucose daily., [facility] #[id number], Supply Start: 03-29-2019 lancets, See Instructions, 100 EA, 3, lancets test daily E11.9, [facility] #[id number], Supply, 175, cm, 04/16/20 15:38:00 EST, Height/Length Dosing, 133.2, kg, 04/16/20 15:38:00 EST, Weight Dosing Start: 04-16-2020 Test strips-True Metrix, See Instructions, 100 EA, 2, Blood glucose test strips. Use daily to test fasting blood sugars and as needed for symptomatic high or low blood sugars, [facility], Supply, 175, cm, 09/15/20 13:52:00 EDT, Height/Length Dosing, 128, kg, 09/15/20 13:52:00 EDT, Weight Dosing Start: 09-16-2020 na, See Instruct ions, 1 bottle(s), 6, provide patient with lancets and glucometer strips. Check glucose daily., [facility] #[id number], Supply Start: 03-29-2019 lancets, See Instructions, 100 EA, 3, lancets test daily E11.9, [facility] #[id number], Supply, 175, cm, 04/16/20 15:38:00 EST, Height/Length Dosing, 133.2, kg, 04/16/20 15:38:00 EST, Weight Dosing Start: 04-16-2020 Test strips-True Metrix, See Instructions, 100 EA, 2, Blood glucose test strips. Use daily to test fasting blood sugars and as needed for symptomatic high or low blood sugars, [facility], Supply, 175, cm, 09/15/20 13:52:00 EDT, Height/Length Dosing, 128, kg, 09/15/20 13:52:00 EDT, Weight Dosing Start: 09-16-2020 na, See Instruct ions, 1 bottle(s), 6, provide patient with lancets and glucometer strips. Check glucose daily., [facility] #[id number], Supply Start: 03-29-2019 Goals Date Patient Goal Desired Activity /State 03-29-2019 Functional Status Date Assessment Result Facility 11-29-2023 Functional Status N/A [facility] 11-28-2023 Functional Status N/A [facility] 09-22-2023 Functional Status N/A [facility] 07-25-2023 Functional Status N/A [facility] 07-01-2023 Functional Status N/A [facility] 05-20-2023 Functional Status N/A [facility] 04-06-2023 Functional Status N/A [facility] 03-19-2023 Functional Status N/A [facility] 03-14-2023 Functional Status N/A [facility] 12-21-2022 Functional Status N/A [facility] 10-21-2022 Functional Status N/A [facility] 05-23-2022 Functional Status N/A [facility] 02-11-2022 Functional Status Telehealth Patient Ven[facility] 12-31-2021 Functional Status N/A [facility] 12-24-2021 N/A [facility] 11-03-2021 Functional Status N/A [facility] 11-01-2021 Functional Status N/A [facility] Clinical Notes 01-26-2010 to 11-29-2023 Note Date & Type Note Facility 11-29-2023 Hospital Discharg e instructions Patient Education 11/29/2023 20:59:57 Cellulitis, Adult, [id number] Cellulitis, Adult Cellulitis is a skin infection. The infected area is often warm, red, swollen, and sore. It occurs most often in the arms and lower legs. It is very important to get treated for this condition. What are the causes? This condition is caused by bacteria. The bacteria enter through a break in the skin, such as a cut, burn, insect bite, open sore, or crack. What increases the risk? This condition is more likely to occur in people who: Have a weak body defense system (immune system). Have open cuts, macario, bites, or scrapes on the skin. Are older than 60 years of age. Have a blood sugar problem (diabetes). Have a long-lasting (chronic) liver disease (cirrhosis) or kidney disease. Are very overweight (obese). Have a skin problem, such as: ?Itchy rash (eczema). ?Slow movement of blood in the veins (venous stasis). ?Fluid buildup below the skin (edema). Have been treated with high-energy rays (radiation). Use IV drugs. What are the signs or symptoms? Symptoms of this condition include: Skin that is: ?Red. ?Streaking. ?Spotting. ?Swollen. ?Sore or painful when you touch it. ?Warm. A fever. Chills. Blisters. How is this diagnosed? This condition is diagnosed based on: Medical history. Physical exam. Blood tests. Imaging tests. How is this treated? Treatment for this condition may include: Medicines to treat infections or allergies. Home care, such as: ?Rest. ?Placing cold or warm cloths (compresses) on the skin. Hospital care, if the condition is very bad. Follow these instructions at home: Medicines Take qwlm-gey-libwnit and prescription medicines only as told by your doctor. If you were prescribed an antibiotic medicine, take it as told by your doctor. Do not stop taking it even if you start to feel better. General instructions Drink enough fluid to keep your pee (urine) pale yellow. Do not touch or rub the infected area. Raise (elevate) the infected area above the level of your heart while you are sitting or lying down. Place cold or warm cloths on the area as told by your doctor. Keep all follow-up visits as told by your doctor. This is important. Contact a doctor if: You have a fever. You do not start to get better after 1 2 days of treatment. Your bone or joint under the infected area starts to hurt after the skin has healed. Your infection comes back. This can happen in the same area or another area. You have a swollen bump in the area. You have new symptoms. You feel ill and have muscle aches and pains. Get help right away if: Your symptoms get worse. You feel very sleepy. You throw up (vomit) or have watery poop (diarrhea) for a long time. You see red streaks coming from the area. Your red area gets larger. Your red area turns dark in color. These symptoms may represent a serious problem that is an emergency. Do not wait to see if the symptoms will go away. Get medical help right away. Call your local emergency services (911 in the [place] Do not drive yourself to the hospital. Summary Cellulitis is a skin infection. The area is often warm, red, swollen, and sore. This condition is treated with medicines, rest, and cold and warm cloths. Take all medicines only as told by your doctor. Tell your doctor if symptoms do not start to get better after 1 2 days of treatment. This information is not intended to replace advice given to you by your health care provider. Make sure you discuss any questions you have with your health care provider. Document Revised: 02/04/2022 Document Reviewed: 02/04/2022 [employer] Patient Education 2022 [employer]. Follow Up Care 11/29/2023 20:02:37 With:Irasema Zacarias Address: [address] [place] [address] [place] [address] Business (1) When:12/02/2023 20:41:42 Comments:Stop the clindamycin and start the Bactrim and Keflex. He can use naproxen every 12 hours as needed for pain in addition to pain medicine impression prescribed last night. Please follow-up with your primary care doctor for further evaluation management. Please return to the ED for any new or worsening symptoms. [facility] 11-29-2023 Note ED Patient Education Note Infectious Disease Cellulitis, Adult Cellulitis is a skin infection. The infected area is often warm, red, swollen, and sore. It occurs most often in the arms and lower legs. It is very important to get treated for this condition. What are the causes? This condition is caused by bacteria. The bacteria enter through a break in the skin, such as a cut, burn, insect bite, open sore, or crack. What increases the risk? This condition is more likely to occur in people who: ? Have a weak body defense system (immune system). ? Have open cuts, macario, bites, or scrapes on the skin. ? Are older than 60 years of age. ? Have a blood sugar problem (diabetes). ? Have a long-lasting (chronic) liver disease (cirrhosis) or kidney disease. ? Are very overweight (obese). ? Have a skin problem, such as: ? Itchy rash (eczema). ? Slow movement of blood in the veins (venous stasis). ? Fluid buildup below the skin (edema). ? Have been treated with high-energy rays (radiation). ? Use IV drugs. What are the signs or symptoms? Symptoms of this condition include: ? Skin that is: ? Red. ? Streaking. ? Spotting. ? Swollen. ? Sore or painful when you touch it. ? Warm. ? A fever. ? Chills. ? Blisters. How is this diagnosed? This condition is diagnosed based on: ? Medical history. ? Physical exam. ? Blood tests. ? Imaging tests. How is this treated? Treatment for this condition may include: ? Medicines to treat infections or allergies. ? Home care, such as: ? Rest. ? Placing cold or warm cloths (compresses) on the skin. ? Hospital care, if the condition is very bad. Follow these instructions at home: Medicines ? Take shut-ckc-lddvmwc and prescription medicines only as told by your doctor. ? If you were prescribed an antibiotic medicine, take it as told by your doctor. Do not stop taking it even if you start to feel better. General instructions ? Drink enough fluid to keep your pee (urine) pale yellow. ? Do not touch or rub the infected area. ? Raise (elevate) the infected area above the level of your heart while you are sitting or lying down. ? Place cold or warm cloths on the area as told by your doctor. ? Keep all follow-up visits as told by your doctor. This is important. Contact a doctor if: ? You have a fever. ? You do not start to get better after 1?2 days of treatment. ? Your bone or joint under the infected area starts to hurt after the skin has healed. ? Your infection comes back. This can happen in the same area or another area. ? You have a swollen bump in the area. ? You have new symptoms. ? You feel ill and have muscle aches and pains. Get help right away if: ? Your symptoms get worse. ? You feel very sleepy. ? You throw up (vomit) or have watery poop (diarrhea) for a long time. ? You see red streaks coming from the area. ? Your red area gets larger. ? Your red area turns dark in color. These symptoms may represent a serious problem that is an emergency. Do not wait to see if the symptoms will go away. Get medical help right away. Call your local emergency services (911 in the [place] Do not drive yourself to the hospital. Summary ? Cellulitis is a skin infection. The area is often warm, red, swollen, and sore. ? This condition is treated with medicines, rest, and cold and warm cloths. ? Take all medicines only as told by your doctor. ? Tell your doctor if symptoms do not start to get better after 1?2 days of treatment. This information is not intended to replace advice given to you by your health care provider. Make sure you discuss any questions you have with your health care provider. Document Revised: 02/04/2022 Document Reviewed: 02/04/2022 Expandly Patient Education ? 2022 FlowJob. [facility] 11-29-2023 Evaluation + Plan note Extrac mayur from: Title:ED Note Author:Celena Dias DO Date :11/29/23 Cellulitis of left breast (N 61.0: Mastitis without abscess) Orders: cephalexin, 500 mg = 1 cap(s), Oral, TID, X 10 day(s), # 30 cap(s), Refills(s) 0, Pharmacy: [facility] #[id number], 175, cm, 11/29/23 20:31:00 EDT, Height/Length Dosing, 139, kg, 11/29/23 20:31:00 EDT, Weight Dosing cephalexin, 500 mg = 1 cap(s), Cap, Oral, Once, Stop date 11/29/23 20:39:00 EDT, STAT, Start date 11/29/23 20:39:00 EDT, 11/29/23 20:39:00 EDT naproxen, 500 mg = 2 tab(s), Tab, Oral, Once, Stop date 11/29/23 20:39:00 EDT, STAT, Start date 11/29/23 20:39:00 EDT, 11/29/23 20:39:00 EDT naproxen, 500 mg = 1 tab(s), Oral, BID, PRN for pain, # 20 tab(s), Refills(s) 0, Pharmacy: [facility] #[id number], 175, cm, 11/29/23 20:31:00 EDT, Height/Length Dosing, 139, kg, 11/29/23 20:31:00 EDT, Weight Dosing sulfamethoxazole-trimethoprim, 1 tab(s), Oral, BID, 20 tab(s), Refill(s) 0, [facility] #[id number], 175, cm, 11/29/23 20:31:00 EDT, Height/Length Dosing, 139, kg, 11/29/23 20:31:00 EDT, Weight Dosing sulfamethoxazole-trimethoprim, 1 tab(s), Tab, Oral, Once, Stop date 11/29/23 20:39:00 EDT, STAT, Start date 11/29/23 20:39:00 EDT Future Appointments Appointment Date:12/12/2023 03:20:00 PM Scheduled Provider:Daron Hernandez MD Location:[facility] Appointment Type:GS New 30 Appointment Date:01/13/2024 10:00:00 AM Scheduled Provider:KYUNG PAUL PA-C Location:[facility] Appointment Type:URO New Patient Appointment Date:09/25/2024 08:00:00 AM Scheduled Provider: Location:[facility] Appointment Type: Medicare Wellness Subsequent Future Scheduled Tests Laboratory* HgbA1c 12/21/22 * FSH and LH 05/20/23 * Insulin Free and Total 05/20/23 * TSH With T4fr Reflex 05/20/23 * TSH With T4fr Reflex 12/21/22 * Beta hCG Quantitative 05/20/23 * Cortisol 05/20/23 * Lipid Panel 12/21/22 * Prolactin Level 05/20/23 [facility]07-22-2024 Hospital Discharge instructions Patient Education 11/28/2023 21:00:36 Skin Abscess Skin Abscess A skin abscess is an infected area on or under your skin that contains a collection of pus and other material. An abscess may also be called a furuncle, carbuncle, or boil. An abscess can occur in oron almost any part of your body. Some abscesses break open (rupture) on their own. Most continue to get worse unless they are treated. The infection can spread deeper into the body and eventually into your blood, which can make you feel ill. Treatment usually involves draining the abscess. What are the causes? An abscess occurs when germs, like bacteria, pass through your skin and cause an infection. This may be caused by: A scrape or cut on your skin. A puncture wound through your skin, including a needle injection or insect bite. Blocked oil or sweat glands. Blocked and infected hair follicles. A cyst that forms beneath your skin (sebaceous cyst) and becomes infected. What increases the risk? This condition is more likely to develop in people who: Have a weak body defense system (immune system). Have diabetes. Have dry and irritated skin. Get frequent injections or use illegal IV drugs. Have a foreign body in a wound, such as a splinter. Have problems with their lymph system or veins. What are the signs or symptoms? Symptoms of this condition include: A painful, firm bump under the skin. A bump with pus at the top. This may break through the skin and drain. Other symptoms include: Redness surrounding the abscess site. Warmth. Swelling of the lymph nodes (glands) near the abscess. Tenderness. A sore on the skin. How is this diagnosed? This condition may be diagnosed based on: A physical exam. Your medical history. A sample of pus. This may be used to find out what is causing the infection. Blood tests. Imaging tests, such as an ultrasound, CT scan, or MRI. How is this treated? A small abscess that drains on its own may not need treatment. Treatment for larger abscesses may include: Moist heat or heat pack applied to the area several times a day. A procedure to drain the abscess (incision and drainage). Antibiotic medicines. For a severe abscess, you may first get antibiotics through an IV and then change to antibiotics by mouth. Follow these instructions at home: Medicines Take khpu-mne-oxcyhjb and prescription medicines only as told by your health care provider. If you were prescribed an antibiotic medicine, take it as told by your health care provider. Do notstop taking the antibiotic even if you start to feel better. Abscess care If you have an abscess that has not drained, apply heat to the affected area. Use the heat source that your health care provider recommends, such as a moist heat pack or a heating pad. ?Place a towel between your skin and the heat source. ?Leave the heat on for 20 30 minutes. ?Remove the heat if your skin turns bright red. This is especially important if you are unable to feel pain, heat, or cold. You may have a greater risk of getting burned. Follow instructions from your health care provider about how to take care of your abscess. Make sure you: ?Cover the abscess with a bandage (dressing). ?Change your dressing or gauze as told by your health care provider. ?Wash your hands with soap and water before you change the dressing or gauze. If soap and water arenot available, use hand coremaker apprentice. Check your abscess every day for signs of a worsening infection. Check for: ?More redness, swelling, or pain. ?More fluid or blood. ?Warmth. ?More pus or a bad smell. General instructions To avoid spreading the infection: ?Do not share personal care items, towels, or hot tubs with others. ?Avoid making skin contact with other people. Keep all follow-up visits as told by your health care provider. This is important. Contact a health care provider if you have: More redness, swelling, or pain around your abscess. More fluid or blood coming from your abscess. Warm skin around your abscess. More pus or a bad smell coming from your abscess. Muscle aches. Chills or a general ill feeling. Get help right away if you: Have severe pain. See red streaks on your skin spreading away from the abscess. See redness that spreads quickly. Have a fever or chills. Summary A skin abscess is an infected area on or under your skin that contains a collection of pus and other material. A small abscess that drains on its own may not need treatment. Treatment for larger abscesses may include having a procedure to drain the abscess and taking an antibiotic. This information is not intended to replace advice given to you by your health care provider. Make sure you discuss any questions you have with your health care provider. Document Revised: 07/29/2022 Document Reviewed: 02/01/2022 Expandly Patient Education 2022 FlowJob. 11/28/2023 21:00:36 Cellulitis, Adult, [place] Cellulitis, Adult Cellulitis is a skin infection. The infected area is often warm, red, swollen, and sore. It occurs most often in the arms and lower legs. It is very important to get treated for this condition. What are the causes? This condition is caused by bacteria. The bacteria enter through a break in the skin, such as a cut, burn, insect bite, open sore, or crack. What increases the risk? This condition is more likely to occur in people who: Have a weak body defense system (immune system). Have open cuts, macario, bites, or scrapes on the skin. Are older than 60 years of age. Have a blood sugar problem (diabetes). Have a long-lasting (chronic) liver disease (cirrhosis) or kidney disease. Are very overweight (obese). Have a skin problem, such as: ?Itchy rash (eczema). ?Slow movement of blood in the veins (venous stasis). ?Fluid buildup below the skin (edema). Have been treated with high-energy rays (radiation). Use IV drugs. What are the signs or symptoms? Symptoms of this condition include: Skin that is: ?Red. ?Streaking. ?Spotting. ?Swollen. ?Sore or painful when you touch it. ?Warm. A fever. Chills. Blisters. How is this diagnosed? This condition is diagnosed based on: Medical history. Physical exam. Blood tests. Imaging tests. How is this treated? Treatment for this condition may include: Medicines to treat infections or allergies. Home care, such as: ?Rest. ?Placing cold or warm cloths (compresses) on the skin. Hospital care, if the condition is very bad. Follow these instructions at home: Medicines Take nrum-vgt-uagjfcw and prescription medicines only as told by your doctor. If you were prescribed an antibiotic medicine, take it as told by your doctor. Do not stop taking it even if you start to feel better. General instructions Drink enough fluid to keep your pee (urine) pale yellow. Do not touch or rub the infected area. Raise (elevate) the infected area above the level of your heart while you are sitting or lying down. Place cold or warm cloths on the area as told by your doctor. Keep all follow-up visits as told by your doctor. This is important. Contact a doctor if: You have a fever. You do not start to get better after 1 2 days of treatment. Your bone or joint under the infected area starts to hurt after the skin has healed. Your infection comes back. This can happen in the same area or another area. You have a swollen bump in the area. You have new symptoms. You feel ill and have muscle aches and pains. Get help right away if: Your symptoms get worse. You feel very sleepy. You throw up (vomit) or have watery poop (diarrhea) for a long time. You see red streaks coming from the area. Your red area gets larger. Your red area turns dark in color. These symptoms may represent a serious problem that is an emergency. Do not wait to see if the symptoms will go away. Get medical help right away. Call your local emergency services (911 in the [place] Do not drive yourself to the hospital. Summary Cellulitis is a skin infection. The area is often warm, red, swollen, and sore. This condition is treated with medicines, rest, and cold and warm cloths. Take all medicines only as told by your doctor. Tell your doctor if symptoms do not start to get better after 1 2 days of treatment. This information is not intended to replace advice given to you by your health care provider. Make sure you discuss any questions you have with your health care provider. Document Revised: 02/04/2022 Document Reviewed: 02/04/2022 Expandly Patient Education 2022 FlowJob. Follow Up Care 11/28/2023 19:05:50 With:Daron Hernandez Address:Unknown When:12/01/2023 20:36:49 Comments:Call for diagnosis based follow up With:Urban PLUNKETT Address: [address] [place], [place] [address]dict Johana, [address] [address]- Business (1) When:12/01/2023 20:36:36 Comments:Call for diagnosis based follow up With:Irasema Zacarias Address: [address], [place] [address]- Business (1) When:12/01/2023 20:36:33 Comments:Call Dr for diagnosis based follow up [facility]07-22-2024 NoteED Patient Education Note Infectious Disease Skin Abscess A skin abscess is an infected area on or under your skin that contains a collection of pus and other material. An abscess may also be called a furuncle, carbuncle, or boil. An abscess can occur in oron almost any part of your body. Some abscesses break open (rupture) on their own. Most continue to get worse unless they are treated. The infection can spread deeper into the body and eventually into your blood, which can make you feel ill. Treatment usually involves draining the abscess. What are the causes? An abscess occurs when germs, like bacteria, pass through your skin and cause an infection. This may be caused by: ? A scrape or cut on your skin. ? A puncture wound through your skin, including a needle injection or insect bite. ? Blocked oil or sweat glands. ? Blocked and infected hair follicles. ? A cyst that forms beneath your skin (sebaceous cyst) and becomes infected. What increases the risk? This condition is more likely to develop in people who: ? Have a weak body defense system (immune system). ? Have diabetes. ? Have dry and irritated skin. ? Get frequent injections or use illegal IV drugs. ? Have a foreign body in a wound, such as a splinter. ? Have problems with their lymph system or veins. What are the signs or symptoms? Symptoms of this condition include: ? A painful, firm bump under the skin. ? A bump with pus at the top. This may break through the skin and drain. Other symptoms include: ? Redness surrounding the abscess site. ? Warmth. ? Swelling of the lymph nodes (glands) near the abscess. ? Tenderness. ? A sore on the skin. How is this diagnosed? This condition may be diagnosed based on: ? A physical exam. ? Your medical history. ? A sample of pus. This may be used to find out what is causing the infection. ? Blood tests. ? Imaging tests, such as an ultrasound, CT scan, or MRI. How is this treated? A small abscess that drains on its own may not need treatment. Treatment for larger abscesses may include: ? Moist heat or heat pack applied to the area several times a day. ? A procedure to drain the abscess (incision and drainage). ? Antibiotic medicines. For a severe abscess, you may first get antibiotics through an IV and then change to antibiotics by mouth. Follow these instructions at home: Medicines ? Take wssr-iym-wvuaezc and prescription medicines only as told by your health care provider. ? If you were prescribed an antibiotic medicine, take it as told by your health care provider. Do not stop taking the antibiotic even if you start to feel better. Abscess care ? If you have an abscess that has not drained, apply heat to the affected area. Use the heat sourcethat your health care provider recommends, such as a moist heat pack or a heating pad. ? Place a towel between your skin and the heat source. ? Leave the heat on for 20?30 minutes. ? Remove the heat if your skin turns bright red. This is especially important if you are unable to feel pain, heat, or cold. You may have a greater risk of getting burned. ? Follow instructions from your health care provider about how to take care of your abscess. Make sure you: ? Cover the abscess with a bandage (dressing). ? Change your dressing or gauze as told by your health care provider. ? Wash your hands with soap and water before you change the dressing or gauze. If soap and water are not available, use hand coremaker apprentice. ? Check your abscess every day for signs of a worsening infection. Check for: ? More redness, swelling, or pain. ? More fluid or blood. ? Warmth. ? More pus or a bad smell. General instructions ? To avoid spreading the infection: ? Do not share personal care items, towels, or hot tubs with others. ? Avoid making skin contact with other people. ? Keep all follow-up visits as told by your health care provider. This is important. Contact a health care provider if you have: ? More redness, swelling, or pain around your abscess. ? More fluid or blood coming from your abscess. ? Warm skin around your abscess. ? More pus or a bad smell coming from your abscess. ? Muscle aches. ? Chills or a general ill feeling. Get help right away if you: ? Have severe pain. ? See red streaks on your skin spreading away from the abscess. ? See redness that spreads quickly. ? Have a fever or chills. Summary ? A skin abscess is an infected area on or under your skin that contains a collection of pus and other material. ? A small abscess that drains on its own may not need treatment. ? Treatment for larger abscesses may include having a procedure to drain the abscess and taking an antibiotic. This information is not intended to replace advice given to you by your health care provider. Make sure you discuss any questions you pat (more content not included)...[facility]06-25-2024 NoteHNO ID: [id number] Author: JOHN PIERCE PSYD Service: ? Author Type: Psychologist Type: Progress Notes Filed: 11/03/2023 11:33 Note Text: [facility] BEHAVIORAL HEALTH EVALUATION DATE OF SERVICE: 11/01/2023 TIME OF SERVICE: 1:00PM to 2:19PM [facility]ENTER: [facility] CPT CODE: - 52546 Brief Emotional/Behavioral Assessment with scoring/documentation - [id number] Virtual Psych Diagnostic Eval BILLING CODE: ENDO PSYL ELIZABETH Pierce [facility] Visit type: Psychology Visit SESSION #: 1 The patient signed the Informed Consent for Psychological Evaluation AND Care Form via [employer] Mobile (see consent dated 10/27/23), and the encompass health care insurance benefits, fees for service, emergency procedures, and the limits of confidentiality that may pertain with any given case were discussed with the patient. The patient was given a copy of the consent form via [employer]. I have communicated my name and active licensure. The patient's identity and physical location were verified at the time of this visit. Either the patient or their legal circulation sales representative has been informed of the risks and benefits of -- and alternatives to -- treatment through a remote evaluation and consents to proceed with the evaluation remotely. This evaluation is NOT intended for forensic, disability or child custody purposes. Upon completion of risk/benefit analysis, the patient's presenting problem and apparent condition are considered appropriate for virtual format. The patient does appear to have sufficient knowledge and skills in the use of relevant technology to benefit from virtual format. Platform: [employer] Address of Patient During Time of Virtual Visit: Pt home at [address] [facility] [id number] Emergency Contact: Jerrell Ibrahim Emergency Department at [address] [place] [address] IDENTIFYING INFORMATION Ms. Alma Delia Pearl is a 38 year old female. She was referred by [facility]. Ms. Pearl is seeking unsure surgery (prefers gastric bypass) for Class III obesity. COLLATERAL PARTIES PRESENT: none. MOTIVATION FOR SURGERY / UNDERSTANDING OF PROCEDURE / EXPECTATIONS: Ms. Pearl notes she is motivated for surgery by reducing pain, improving quality of life, improving mobility and wanting to become more active. The patient has a fair understanding of the surgery, risks, and benefits. She has talked with other people who have undergone the procedure. Specific areas of understanding that should be addressed include risks associated with surgery and knowledge regarding surgical procedure. The patient has attended a weight loss surgery support group online equivalent ([employer]). The patient expects to lose 106-136 lbs. following surgery over 12+ months. Goal weight: 170-200lbs. She reportedly would feel satisfied if her final weight loss was closer to projected estimates. Educated patient regarding expected weight loss after surgical procedure and timeline of weight loss/surgery recovery. CAPACITY TO CONSENT: Ms. Pearl evidences the following concerns regarding capacity to consent: Patient reported that she was previously evaluated and diagnosed with ADHD. Denied any history of medication use to address this condition and denied functional impairment at present. My biggest thing is anxiety. 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 Pcos (Polycystic Ovarian Syndrome) Hemorrhage of Rectum and Anus Crohn's Ileitis (Hcc) Myalgia and Myositis Fitting and Adjustment of Orthopedic Device Sprained Ankle Fibromyalgia Migraine Without Aura and Without Status Migrainosus, Not Intractable Irritable Bowel Syndrome Gerd (Gastroesophageal Reflux Disease) Endometriosis, Site Unspecified Crohn's Disease (Hcc) Bipolar 1 Disorder (Hcc) Arthritis Abdominal Pain, Generalized Anxiety and Depression Former Smoker Bmi 40.0-44.9, Adult (Hcc) Chronic Pain Syndrome Lumbar Disc Herniation Type 2 Diabetes Mellitus Without Complication, Without Long-Term Current Use of Insulin (Hcc) Pt self-reported medication: Spinal Stenosis/DDD Past surgeries? Yes PAST SURGICAL HISTORY Procedure Laterality Date LAPS ABD PRTMANDOMENTUM DX W/WO SPEC BR/WA SPX 03/[address] [place] [address] Dae Reynolds. endometriosis, lasered. Stage??, PCOS ovaries LAPS ABD PRTMANDOMENTUM DX W/WO SPEC BR/WA SPX 08/05/2008 Dr. Natalie Yanez. Operation: Diagnostic laparoscopy (hx. chronic pelvic pain. PAST SURGICAL HISTORY OF 05/12 laser surgery endometrosis TONSILLECTOMY PRIMARY/SECONDARY Tonsillectomy History of psychological complications pos (more content not included)... [facility]06-19-2024 Telephone encounter Note* Telephone Encounter - Mayco Fagan MA - 10/26/2023 1:01 PM EDT Requester: Pharmacy Patients last Endocrinology visit occurred 07/01/2023 Follow-up evaluation has been established 12/05/2023. Requested Prescriptions Pending Prescriptions Disp Refills MOUNJARO 2.5 mg/0.5 mL pen injector [Pharmacy Med Name: MOUNJARO 2.5MG/0.5ML INJ ( 4 PENS)] 2 mL 0 Sig: ADMINISTER 2.5 MG UNDER THE SKIN 1 TIME A WEEK If patient is due for an appointment please route to provider for refill consideration and also to the endo scheduling pool. PSS NOTE: Patient needs scheduled appointment No [facility]06-19-2024 Miscellaneous Notes* Telephone Encounter - Mayco Fagan MA - 10/26/2023 1:01 PM EDT Requester: Pharmacy Patients last Endocrinology visit occurred 07/01/2023 Follow-up evaluation has been established 12/05/2023. Requested Prescriptions Pending Prescriptions Disp Refills MOUNJARO 2.5 mg/0.5 mL pen injector [Pharmacy Med Name: MOUNJARO 2.5MG/0.5ML INJ ( 4 PENS)] 2 mL 0 Sig: ADMINISTER 2.5 MG UNDER THE SKIN 1 TIME A WEEK If patient is due for an appointment please route to provider for refill consideration and also to the endo scheduling pool. PSS NOTE: Patient needs scheduled appointment [facility] Dis[facility] Follow Up Care 09/28/2023 11:29:50 With:Irasema Love Address: [address], [facility] [place] [address]- When:Within 1 Year(s) Comments:annual wellness [facility] 05-21-2024 Telephone encounter Note* Telephone Encounter - Peyton Thomas RN - 09/27/2023 8:11 AM EDT Requester: Patient Patients last Endocrinology visit occurred 07/01/2023. Follow-up evaluation has been established Upcoming Endocrinology Appointments - Next 365 Days Visit Type Date Time Department EST OLGA PATIENT 12/05/2023 10:10 AM [facility] . Requested Prescriptions Pending Prescriptions Disp Refills tirzepatide (MOUNJARO) 2.5 mg/0.5 mL pen injector 2 mL 0 Sig: Inject 2.5 mg subcutaneously one time a week. If patient is due for an appointment please route to provider for refill consideration and also to the endo scheduling pool. PSS NOTE: Patient needs scheduled appointment No [facility]05-21-2024 Miscellaneous Notes* Telephone Encounter - Peyton Thomas RN - 09/27/2023 8:11 AM EDT Requester: Patient Patients last Endocrinology visit occurred 07/01/2023. Follow-up evaluation has been established Upcoming Endocrinology Appointments - Next 365 Days Visit Type Date Time Department EST [place] PATIENT 12/05/2023 10:10 AM [facility] . Requested Prescriptions Pending Prescriptions Disp Refills tirzepatide (MOUNJARO) 2.5 mg/0.5 mL pen injector 2 mL 0 Sig: Inject 2.5 mg subcutaneously one time a week. If patient is due for an appointment please route to provider for refill consideration and also to the endo scheduling pool. PSS NOTE: Patient needs scheduled appointment [facility] Discharge instructions Patient Education 09/22/2023 10:39:53 Diabetes Mellitus and Nutrition, Adult Diabetes Mellitus and Nutrition, Adult When you have diabetes, or diabetes mellitus, it is very important to have healthy eating habits because your blood sugar (glucose) levels are greatly affected by what you eat and drink. Eating healthy foods in the right amounts, at about the same times every day, can help you: Manage your blood glucose. Lower your risk of heart disease. Improve your blood pressure. Reach or maintain a healthy weight. What can affect my meal plan? Every person with diabetes is different, and each person has different needs for a meal plan. Your health care provider may recommend that you work with a dietitian to make a meal plan that is best for you. Your meal plan may vary depending on factors such as: The calories you need. The medicines you take. Your weight. Your blood glucose, blood pressure, and cholesterol levels. Your activity level. Other health conditions you have, such as heart or kidney disease. How do carbohydrates affect me? Carbohydrates, also called carbs, affect your blood glucose level more than any other type of food.Eating carbs raises the amount of glucose in your blood. It is important to know how many carbs you can safely have in each meal. This is different for every person. Your dietitian can help you calculate how many carbs you should have at each meal and for each snack. How does alcohol affect me? Alcohol can cause a decrease in blood glucose (hypoglycemia), especially if you use insulin or takecertain diabetes medicines by mouth. Hypoglycemia can be a life-threatening condition. Symptoms of hypoglycemia, such as sleepiness, dizziness, and confusion, are similar to symptoms of having too much alcohol. Do not drink alcohol if: ?Your health care provider tells you not to drink. ?You are , may be , or are planning to become . If you drink alcohol: ?Limit how much you have to: ?0 1 drink a day for women. ?0 2 drinks a day for men. ?Know how much alcohol is in your drink. In the [place] one drink equals one 12 oz bottle of beer (355 mL), one 5 oz glass of wine (148 mL), or one 1 oz glass of hard liquor (44 mL). ?Keep yourself hydrated with water, diet soda, or unsweetened iced tea. Keep in mind that regular soda, juice, and other mixers may contain a lot of sugar and must be counted as carbs. What are tips for following this plan? Reading food labels Start by checking the serving size on the Nutrition Facts label of packaged foods and drinks. The number of calories and the amount of carbs, fats, and other nutrients listed on the label are based on one serving of the item. Many items contain more than one serving per package. Check the total grams (g) of carbs in one serving. Check the number of grams of saturated fats and trans fats in one serving. Choose foods that have alow amount or none of these fats. Check the number of milligrams (mg) of salt (sodium) in one serving. Most people should limit totalsodium intake to less than 2,300 mg per day. Always check the nutrition information of foods labeled as low-fat or nonfat. These foods may be higher in added sugar or refined carbs and should be avoided. Talk to your dietitian to identify your daily goals for nutrients listed on the label. Shopping Avoid buying canned, pre-made, or processed foods. These foods tend to be high in fat, sodium, and added sugar. Shop around the outside edge of the grocery store. This is where you will most often find fresh fruits and vegetables, bulk grains, fresh meats, and fresh dairy products. Cooking Use low-heat cooking methods, such as baking, instead of high-heat cooking methods, such as deep frying. Cook using healthy oils, such as olive, canola, or sunflower oil. Avoid cooking with butter, cream, or high-fat meats. Meal planning Eat meals and snacks regularly, preferably at the same times every day. Avoid going long periods oftime without eating. Eat foods that are high in fiber, such as fresh fruits, vegetables, beans, and whole grains. Eat 4 6 oz (112 168 g) of lean protein each day, such as lean meat, chicken, fish, eggs, or tofu. One ounce (oz) (28 g) of lean protein is equal to: ?1 oz (28 g) of meat, chicken, or fish. ?1 egg. ? cup (62 g) of tofu. Eat some foods each day that contain healthy fats, such as avocado, nuts, seeds, and fish. What foods should I eat? Fruits Berries. Apples. Oranges. Peaches. Apricots. Plums. Grapes. Mangoes. Papayas. Pomegranates. Kiwi. Cherries. Vegetables Leafy greens, including lettuce, spinach, kale, chard, jamal greens, mustard greens, and cabbage.Beets. Cauliflower. Broccoli. Carrots. Green beans. Tomatoes. Peppers. Onions. Cucumbers. [place] sprouts. Grains Whole grains, such as whole-wheat or whole-grain bread, crackers, tortillas, cereal, and pasta. Unsweetened oatmeal. Quinoa. Brown or wild rice. Meats and other proteins Seafood. Poultry without skin. Lean cuts of poultry and beef. Tofu. Nuts. Seeds. Dairy Low-fat or fat-free dairy products such as milk, yogurt, and cheese. The items listed above may not be a complete list of foods and beverages you can eat and drink. Contact a dietitian for more information. What foods should I avoid? Fruits Fruits canned with syrup. Vegetables Canned vegetables. Frozen vegetables with butter or cream sauce. Grains Refined white flour and flour products such as bread, pasta, snack foods, and cereals. Avoid all processed foods. Meats and other proteins Fatty cuts of meat. Poultry with skin. Breaded or fried meats. Processed meat. Avoid saturated fats. Dairy Full-fat yogurt, cheese, or milk. Beverages Sweetened drinks, such as soda or iced tea. The items listed above may not be a complete list of foods and beverages you should avoid. Contact a dietitian for more information. Questions to ask a health care provider Do I need to meet with a certified diabetes care and education diagnostician? Do I need to meet with a dietitian? What number can I call if I have questions? When are the best times to check my blood glucose? Where to find more information: [place] Diabetes Association: diabetes.org Academy of Nutrition and Dietetics: eatright.org National [place] of Diabetes and Digestive and Kidney Diseases: niddk.nih.gov Association of Diabetes Care & Education Specialists: diabeteseducator.org Summary It is important to have healthy eating habits because your blood sugar (glucose) levels are greatlyaffected by what you eat and drink. It is important to use alcohol carefully. A healthy meal plan will help you manage your blood glucose and lower your risk of heart disease. Your health care provider may recommend that you work with a dietitian to make a meal plan that is best for you. This information is not intended to replace advice given to you by your health care provider. Make sure you discuss any questions you have with your health care provider. Document Revised: 11/26/2020 Document Reviewed: 11/26/2020 [employer] Patient Education 2022 Flow[employer]. 09/22/2023 10:39:52 Exercising to Lose Weight Exercising to Lose Weight Getting regular exercise is important for everyone. It is especially important if you are overweight. Being overweight increases your risk of heart disease, stroke, diabetes, high blood pressure, andseveral types of cancer. Exercising, and reducing the calories you consume, can help you lose weight and improve fitness and health. Exercise can be moderate or vigorous intensity. To lose weight, most people need to do a certain amount of moderate or vigorous-intensity exercise each week. How can exercise affect me? You lose weight when you exercise enough to burn more calories than you eat. Exercise also reduces body fat and builds muscle. The more muscle you have, the more calories you burn. Exercise also: Improves mood. Reduces stress and tension. Improves your overall fitness, flexibility, and endurance. Increases bone strength. Moderate-intensity exercise Moderate-intensity exercise is any activity that gets you moving enough to burn at least three times more energy (calories) than if you were sitting. Examples of moderate exercise include: Walking a mile in 15 minutes. Doing light yard work. Biking at an easy pace. Most people should get at least 150 minutes of moderate-intensity exercise a week to maintain theirbody weight. Vigorous-intensity exercise Vigorous-intensity exercise is any activity that gets you moving enough to burn at least six times more calories than if you were sitting. When you exercise at this intensity, you should be working hard enough that you are not able to carry on a conversation. Examples of vigorous exercise include: Running. Playing a team sport, such as football, basketball, and soccer. Jumping rope. Most people should get at least 75 minutes a week of vigorous exercise to maintain their body weight. What actions can I take to lose weight? The amount of exercise you need to lose weight depends on: Your age. The type of exercise. Any health conditions you have. Your overall physical ability. Talk to your health care provider about how much exercise you need and what types of activities aresafe for you. Nutrition Make changes to your diet as told by your health care provider or diet and astronaut mission specialist (dietitian). This may include: ?Eating fewer calories. ?Eating more protein. ?Eating less unhealthy fats. ?Eating a diet that includes fresh fruits and vegetables, whole grains, low-fat dairy products, andlean protein. ?Avoiding foods with added fat, salt, and sugar. Drink plenty of water while you exercise to prevent dehydration or heat stroke. Activity Choose an activity that you enjoy and set realistic goals. Your health care provider can help you make an exercise plan that works for you. Exercise at a moderate or vigorous intensity most days of the week. ?The intensity of exercise may vary from person to person. You can tell how intense a workout is for you by paying attention to your breathing and heartbeat. Most people will notice their breathing and heartbeat get faster with more intense exercise. Do resistance training twice each week, such as: ?Push-ups. ?Sit-ups. ?Lifting weights. ?Using resistance bands. Getting short amounts of exercise can be just as helpful as long, structured periods of exercise. If you have trouble finding time to exercise, try doing these things as part of your daily routine: ?Get up, stretch, and walk around every 30 minutes throughout the day. ?Go for a walk during your lunch break. ?Park your car farther away from your destination. ?If you take public transportation, get off one stop early and walk the rest of the way. ?Make phone calls while standing up and walking around. ?Take the stairs instead of elevators or escalators. Wear comfortable clothes and shoes with good support. Do not exercise so much that you hurt yourself, feel dizzy, or get very short of breath. Where to find more information [place] Department of Health and Human Services: www.hhs.gov Centers for Disease Control and Prevention: www.cdc.gov Contact a health care provider: Before starting a new exercise program. If you have questions or concerns about your weight. If you have a medical problem that keeps you from exercising. Get help right away if: You have any of the following while exercising: ?Injury. ?Dizziness. ?Difficulty breathing or shortness of breath that does not go away when you stop exercising. ?Chest pain. ?Rapid heartbeat. These symptoms may represent a serious problem that is an emergency. Do not wait to see if the symptoms will go away. Get medical help right away. Call your local emergency services (911 in the [place] Do not drive yourself to the hospital. Summary Getting regular exercise is especially important if you are overweight. Being overweight increases your risk of heart disease, stroke, diabetes, high blood pressure, and several types of cancer. Losing weight happens when you burn more calories than you eat. Reducing the amount of calories you eat, and getting regular moderate or vigorous exercise each week, helps you lose weight. This information is not intended to replace advice given to you by your health care provider. Make sure you discuss any questions you have with your health care provider. Document Revised: 06/21/2021 Document Reviewed: 06/21/2021 [employer] Patient Education 2022 FlowJob. 09/22/2023 10:39:50 BMI for Adults BMI for Adults What is BMI? Body mass index (BMI) is a number that is calculated from a person's weight and height. BMI can help estimate how much of a person's weight is composed of fat. BMI does not measure body fat directly.Rather, it is an alternative to procedures that directly measure body fat, which can be difficult and expensive. BMI can help identify people who may be at higher risk for certain medical problems. What are BMI measurements used for? BMI is used as a screening tool to identify possible weight problems. It helps determine whether a person is obese, overweight, a healthy weight, or underweight. BMI is useful for: Identifying a weight problem that may be related to a medical condition or may increase the risk for medical problems. Promoting changes, such as changes in diet and exercise, to help reach a healthy weight. BMI screening can be repeated to see if these changes are working. How is BMI calculated? BMI involves measuring your weight in relation to your height. Both height and weight are measured,and the BMI is calculated from those numbers. This can be done either in [place] ([place] or metric measurements. Note that charts and online BMI calculators are available to help you find your BMI quickly and easily without having to do these calculations yourself. To calculate your BMI in [place] ([place] measurements: 1.Measure your weight in pounds (lb). 2.Multiply the number of pounds by 703. For example, for a person who weighs 180 lb, multiply that number by 703, which equals 126,540. 3.Measure your height in inches. Then multiply that number by itself to get a measurement called inches squared. For example, for a person who is 70 inches tall, the inches squared measurement is 70 inches x 70inches, which equals 4,900 inches squared. 4.Divide the total from step 2 (number of lb x 703) by the total from step 3 (inches squared): 126,540 4,900 = 25.8. This is your BMI. To calculate your BMI in metric measurements: 1.Measure your weight in kilograms (kg). 2.Measure your height in meters (m). Then multiply that number by itself to get a measurement called meters squared. For example, for a person who is 1.75 m tall, the meters squared measurement is 1.75 m x 1.75 m, which is equal to 3.1 meters squared. 3.Divide the number of kilograms (your weight) by the meters squared number. In this example: 70 3.1 = 22.6. This is your BMI. What do the results mean? BMI charts are used to identify whether you are underweight, normal weight, overweight, or obese. The following guidelines will be used: Underweight: BMI less than 18.5. Normal weight: BMI between 18.5 and 24.9. Overweight: BMI between 25 and 29.9. Obese: BMI of 30 or above. Keep these notes in mind: Weight includes both fat and muscle, so someone with a muscular build, such as an athlete, may havea BMI that is higher than 24.9. In cases like these, BMI is not an accurate measure of body fat. To determine if excess body fat is the cause of a BMI of 25 or higher, further assessments may needto be done by a health care provider. BMI is usually interpreted in the same way for men and women. Where to find more information For more information about BMI, including tools to quickly calculate your BMI, go to these websites: Centers for Disease Control and Prevention: www.cdc.gov [place] Heart Association: www.heart.org National Heart, Lung, and Blood [place]: www.nhlbi.nih.gov Summary Body mass index (BMI) is a number that is calculated from a person's weight and height. BMI may help estimate how much of a person's weight is composed of fat. BMI can help identify thosewho may be at higher risk for certain medical problems. BMI can be measured using [place] measurements or metric measurements. BMI charts are used to identify whether you are underweight, normal weight, overweight, or obese. This information is not intended to replace advice given to you by your health care provider. Make sure you discuss any questions you have with your health care provider. Document Revised: 01/16/2020 Document Reviewed: 11/23/2019 [employer] Patient Education 2022 FlowJob. [facility] 03-18-2024 Hospital Discharge instructions Patient Education 07/25/2023 21:40:17 Nausea, Adult, Wnuf-[id number] Nausea, Adult Nausea is feeling like you may vomit. Feeling like you may vomit is usually not serious, but it maybe an early sign of a more serious medical problem. Vomiting is when stomach contents forcefully come out of your mouth. If you vomit, or if you are not able to drink enough fluids, you may not have enough water in your body (get dehydrated). If you do not have enough water in your body, you may: Feel tired. Feel thirsty. Have a dry mouth. Have cracked lips. Pee (urinate) less often. Older adults and people who have other diseases or a weak body defense system (immune system) have a higher risk of not having enough water in the body. The main goals of treating this condition are: To relieve your nausea. To ensure your nausea occurs less often. To prevent vomiting and losing too much fluid. Follow these instructions at home: Watch your symptoms for any changes. Tell your doctor about them. Eating and drinking Take an ORS (oral rehydration solution). This is a drink that is sold at pharmacies and stores. Drink clear fluids in small amounts as you are able. These include: ?Water. ?Ice chips. ?Fruit juice that has water added (diluted fruit juice). ?Low-calorie sports drinks. Eat bland, iphm-gu-yuxjqk foods in small amounts as you are able, such as: ?Bananas. ?Applesauce. ?Rice. ?Low-fat (lean) meats. ?[place]. ?Crackers. Avoid drinking fluids that have a lot of sugar or caffeine in them. This includes energy drinks, sports drinks, and soda. Avoid alcohol. Avoid spicy or fatty foods. General instructions Take pkly-azz-ltpfrfr and prescription medicines only as told by your doctor. Rest at home while you get better. Drink enough fluid to keep your pee (urine) pale yellow. Take slow and deep breaths when you feel like you may vomit. Avoid food or things that have strong smells. Wash your hands often with soap and water for at least 20 seconds. If you cannot use soap and water, use hand coremaker apprentice. Make sure that everyone in your home washes their hands well and often. Keep all follow-up visits. Contact a doctor if: You feel worse. You feel like you may vomit and this lasts for more than 2 days. You vomit. You are not able to drink fluids without vomiting. You have new symptoms. You have a fever. You have a headache. You have muscle cramps. You have a rash. You have pain while peeing. You feel light-headed or dizzy. Get help right away if: You have pain in your chest, neck, arm, or jaw. You feel very weak or you faint. You have vomit that is bright red or looks like coffee grounds. You have bloody or black poop (stools) or poop that looks like tar. You have a very bad headache, a stiff neck, or both. You have very bad pain, cramping, or bloating in your belly (abdomen). You have trouble breathing or you are breathing very quickly. Your heart is beating very quickly. Your skin feels cold and clammy. You feel confused. You have signs of losing too much water in your body, such as: ?Dark pee, very little pee, or no pee. ?Cracked lips. ?Dry mouth. ?Sunken eyes. ?Sleepiness. ?Weakness. These symptoms may be an emergency. Get help right away. Call 911. Do not wait to see if the symptoms will go away. Do not drive yourself to the hospital. Summary Nausea is feeling like you are about vomit. If you vomit, or if you are not able to drink enough fluids, you may not have enough water in your body (get dehydrated). Eat and drink what your doctor tells you. Take iais-zfg-xtyuqzg and prescription medicines only as told by your doctor. Contact a doctor right away if your symptoms get worse or you have new symptoms. Keep all follow-up visits. This information is not intended to replace advice given to you by your health care provider. Make sure you discuss any questions you have with your health care provider. Document Revised: 10/30/2021 Document Reviewed: 10/30/2021 [employer] Patient Education 2022 FlowJob. 07/25/2023 21:40:17 Rectal Bleeding Rectal Bleeding Rectal bleeding is when blood passes out of the opening between the buttocks (anus). People with rectal bleeding may notice bright red blood in their underwear or in the toilet after having a bowel movement. They may also have blood mixed with their stool (feces), or dark red or black stools. Rectal bleeding is usually a sign that something is wrong. Many things can cause rectal bleeding, including: Diverticulosis. This is a condition in which pockets or sacs project from the bowel. Hemorrhoids. These are blood vessels around the anus or inside the rectum that are larger than normal. Anal fissures. This is a tear in the anus. Proctitis and colitis. These are conditions in which the rectum, colon, or anus become inflamed. Polyps. These are growths that can be cancerous (malignant) or noncancerous (benign). Infections of the intestines. Fistulas. These are abnormal openings in the rectum and anus. Rectal prolapse. This is when a part of the rectum sticks out from the anus. Follow these instructions at home: Pay attention to any changes in your symptoms. Take these actions to help reduce bleeding and discomfort: Medicines Take kiom-yrh-lumyvzr and prescription medicines only as told by your health care provider. Ask your health care provider about changing or stopping your regular medicines or supplements. This is especially important if you are taking blood thinners. Medicines that thin the blood can make rectal bleeding worse. Managing constipation Your condition may cause constipation. To prevent or treat constipation, or to help make your stools soft, you may need to: Drink enough fluid to keep your urine pale yellow. Take xlbj-gbj-leceymm or prescription medicines. Eat foods that are high in fiber, such as beans, whole grains, and fresh fruits and vegetables. Askyour health care provider if you need a supplement to give you more fiber. Limit foods that are high in fat and processed sugars, such as fried or sweet foods. General instructions Try not to strain when having a bowel movement. Try taking a warm bath. This may help to soothe any pain in your rectum. Keep all follow-up visits as told by your health care provider. This is important. Contact a health care provider if you: Have pain or tenderness in your abdomen. Have a fever. Have weakness. Have nausea. Cannot have a bowel movement. Get help right away if you have: New or increased rectal bleeding. Black or dark red stools. Vomit with blood or something that looks like coffee grounds. A fainting episode. Severe pain in your rectum. Summary Rectal bleeding is usually a sign that something is wrong. This condition should be evaluated by a health care provider. Eat a diet that is high in fiber. This will help keep your stools soft, making it easier to pass stools without straining. Medicines that thin the blood can make rectal bleeding worse. Get help right away if you have new or increased rectal bleeding, black or dark red stools, blood in your vomit, an episode of fainting, or severe pain in your rectum. This information is not intended to replace advice given to you by your health care provider. Make sure you discuss any questions you have with your health care provider. Document Revised: 03/26/2020 Document Reviewed: 03/26/2020 Expandly Patient Education 2022 FlowJob. Follow Up Care 07/25/2023 18:18:25 With:Marilia Brown Address: [address] [place] [address], [address] [phone] Business (1) When:07/28/2023 21:13:49 Comments:Call Dr for diagnosis based follow up With:Irasema Zacarias Address: [facility] [address], [address] [place] [id number] [facility] (1) When:Within 3 Day(s) [facility]02-23-2024 Hospital Discharge instructions Patient Education 07/01/2023 12:56:32 Sinus Infection, Adult Sinus Infection, Adult A sinus infection, also called sinusitis, is inflammation of your sinuses. Sinuses are hollow spaces in the bones around your face. Your sinuses are located: Around your eyes. In the middle of your forehead. Behind your nose. In your cheekbones. Mucus normally drains out of your sinuses. When your nasal tissues become inflamed or swollen, mucus can become trapped or blocked. This allows bacteria, viruses, and fungi to grow, which leads to infection. Most infections of the sinuses are caused by a virus. A sinus infection can develop quickly. It can last for up to 4 weeks (acute) or for more than 12 weeks (chronic). A sinus infection often develops after a cold. What are the causes? This condition is caused by anything that creates swelling in the sinuses or stops mucus from draining. This includes: Allergies. Asthma. Infection from bacteria or viruses. Deformities or blockages in your nose or sinuses. Abnormal growths in the nose (nasal polyps). Pollutants, such as chemicals or irritants in the air. Infection from fungi. This is rare. What increases the risk? You are more likely to develop this condition if you: Have a weak body defense system (immune system). Do a lot of swimming or diving. Overuse nasal sprays. Smoke. What are the signs or symptoms? The main symptoms of this condition are pain and a feeling of pressure around the affected sinuses.Other symptoms include: Stuffy nose or congestion that makes it difficult to breathe through your nose. Thick yellow or greenish drainage from your nose. Tenderness, swelling, and warmth over the affected sinuses. A cough that may get worse at night. Decreased sense of smell and taste. Extra mucus that collects in the throat or the back of the nose (postnasal drip) causing a sore throat or bad breath. Tiredness (fatigue). Fever. How is this diagnosed? This condition is diagnosed based on: Your symptoms. Your medical history. A physical exam. Tests to find out if your condition is acute or chronic. This may include: ?Checking your nose for nasal polyps. ?Viewing your sinuses using a device that has a light (endoscope). ?Testing for allergies or bacteria. ?Imaging tests, such as an MRI or CT scan. In rare cases, a bone biopsy may be done to rule out more serious types of fungal sinus disease. How is this treated? Treatment for a sinus infection depends on the cause and whether your condition is chronic or acute. If caused by a virus, your symptoms should go away on their own within 10 days. You may be given medicines to relieve symptoms. They include: ?Medicines that shrink swollen nasal passages (decongestants). ?A spray that eases inflammation of the nostrils (topical intranasal corticosteroids). ?Rinses that help get rid of thick mucus in your nose (nasal saline washes). ?Medicines that treat allergies (antihistamines). ?Epqz-mit-nfxvhdn pain relievers. If caused by bacteria, your health care provider may recommend waiting to see if your symptoms improve. Most bacterial infections will get better without antibiotic medicine. You may be given antibiotics if you have: ?A severe infection. ?A weak immune system. If caused by narrow nasal passages or nasal polyps, surgery may be needed. Follow these instructions at home: Medicines Take, use, or apply gcdt-bdp-rjamrtm and prescription medicines only as told by your health care provider. These may include nasal sprays. If you were prescribed an antibiotic medicine, take it as told by your health care provider. Do notstop taking the antibiotic even if you start to feel better. Hydrate and humidify Drink enough fluid to keep your urine pale yellow. Staying hydrated will help to thin your mucus. Use a cool mist humidifier to keep the humidity level in your home above 50%. Inhale steam for 10 15 minutes, 3 4 times a day, or as told by your health care provider. You can do this in the bathroom while a hot shower is running. Limit your exposure to cool or dry air. Rest Rest as much as possible. Sleep with your head raised (elevated). Make sure you get enough sleep each night. General instructions Apply a warm, moist washcloth to your face 3 4 times a day or as told by your health care provider.This will help with discomfort. Use nasal saline washes as often as told by your health care provider. Wash your hands often with soap and water to reduce your exposure to germs. If soap and water are not available, use hand coremaker apprentice. Do not smoke. Avoid being around people who are smoking (secondhand smoke). Keep all follow-up visits. This is important. Contact a health care provider if: You have a fever. Your symptoms get worse. Your symptoms do not improve within 10 days. Get help right away if: You have a severe headache. You have persistent vomiting. You have severe pain or swelling around your face or eyes. You have vision problems. You develop confusion. Your neck is stiff. You have trouble breathing. These symptoms may be an emergency. Get help right away. Call 911. Do not wait to see if the symptoms will go away. Do not drive yourself to the hospital. Summary A sinus infection is soreness and inflammation of your sinuses. Sinuses are hollow spaces in the bones around your face. This condition is caused by nasal tissues that become inflamed or swollen. The swelling traps or blocks the flow of mucus. This allows bacteria, viruses, and fungi to grow, which leads to infection. If you were prescribed an antibiotic medicine, take it as told by your health care provider. Do notstop taking the antibiotic even if you start to feel better. Keep all follow-up visits. This is important. This information is not intended to replace advice given to you by your health care provider. Make sure you discuss any questions you have with your health care provider. Document Revised: 03/30/2022 Document Reviewed: 03/30/2022 Expandly Patient Education 2022 FlowJob. [facility] [place] 02-23-2024 NoteHNO ID: [id number] Author: EDMUNDO DEVLIN MD Service: ? Author Type: Physician Type: Progress Notes Filed: 07/04/2023 09:44 Note Text: [facility] NEW VISIT REASON OF VISIT: weight management/obesity and management of its comorbidities REFERRING PHYSICIAN: self-referral HISTORY OF PRESENT ILLNESS: Age: [age] year old Patient comes today for evaluation and weight management. Other pertinent medical problems include: - Type 2 Diabetes (evidenced by HbA1c at 6.7% in 2022) - Hyperlipidemia - PCOS - Fibromyalgia - Major Depressive Disorder (has Bipolar 1 on chart by per patient she only has MDD, never had elaine or hypomania) - Anxiety) - IDETER (not using CPAP) Has been having issues with weight since age 17, tried multiple strategies before with no success, in 2020 was started on SQ Semaglutide for 10-11 months with no significant weight loss, did not tolerate it well (diarrhea, vomiting undigested food, heartburn). Switched to Tirzepatide in early 2022 and went up to 7.5 mg weekly which she has been on until 2 months ago that she stopped. Generally tolerated pretty well, has occasional acid reflux (controlled with PPI+H2 joanna) and occasional has vomiting of undigested food (once every 2 months, associated with abdominal pain, continues for a day before resolving). With tirzepatide lost 15 lbs and regained them after stopping 2 months ago. Reason for stopping was feeling abdominal pain, vomiting 2 times undigested food, and dizziness and feeling like she is going to pass out, and diarrhea. Improved with symptomatic treatment and resolved after about 2 days. 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 No Weakness: No Number of meals per day: 1 meal and 2 snacks Typical breakfast: Blevida crackers cranberry orange (1 package of 4 crackers) or cheerios with no milk Typical lunch: Lunchable (1 package) or Uncrustable with Pretzels and Fruit or carrots Typical dinner: Cheeseburgers, Stateless (takeout), enchiladas, chicken ferreira sliders Typical dessert/bedtime snacks: No Sugary beverages: No (Pepsi Zero with lunch), energy drinks (zero sugar) Type of diet: No specific diet Exercise -- No Quantity amount: NA Type: NA ?Sleep -- Sleeps 5 hours and wake up tired, or 13 hours with poor quality, not using CPAP Stress -- Always stressed Other pertinent Comorbidities - PreDM, Hyperlipidemia, PCOS, DIETER Social History Lives: [place], by herself 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 Negative for night sweats. HENT: Positive for postnasal drip. Negative for trouble swallowing and thyroid pain (lower neck). Eyes: Negative for visual disturbance. Respiratory: Negative for difficulty breathing. Cardiovascular: Positive for claudication. Negative for chest pain and leg swelling. Gastrointestinal: Positive for heartburn, nausea, abdominal pain and diarrhea. Negative for vomiting and constipation. Genitourinary: Positive for urgency, slower stream and irregular menses. Negative for frequent urination, menstruating and amenorrhea. Musculoskeletal: Positive for myalgias and bone pain. Negative for muscle weakness. Skin: Negative for skin color change. Neurological: Positive for headaches and numbness. Negative for dizziness. Endo/Heme/Allergies: Positive for cold intolerance when others are comfortable, heat intolerance when others are comfortable, hot flashes and changes in body hair. Negative for polydipsia and flushing. Answe (more content not included)...[facility]01-12-2024 Hospital Discharge instructions Patient Education 05/20/2023 10:36:01 Polycystic Ovary Syndrome Polycystic Ovary Syndrome Polycystic ovarian syndrome (PCOS) is a common hormonal disorder among women of reproductive age. In most women with PCOS, small fluid-filled sacs (cysts) grow on the ovaries. PCOS can cause problemswith menstrual periods and make it hard to get and stay . If this condition is not treated,it can lead to serious health problems, such as diabetes and heart disease. What are the causes? The cause of this condition is not known. It may be due to certain factors, such as: Irregular menstrual cycle. High levels of certain hormones. Problems with the hormone that helps to control blood sugar (insulin). Certain genes. What increases the risk? You are more likely to develop this condition if you: Have a family history of PCOS or type 2 diabetes. Are overweight, eat unhealthy foods, and are not active. These factors may cause problems with blood sugar control, which can contribute to PCOS or PCOS symptoms. What are the signs or symptoms? Symptoms of this condition include: Ovarian cysts and sometimes pelvic pain. Menstrual periods that are not regular or are too heavy. Inability to get or stay . Increased growth of hair on the face, chest, stomach, back, thumbs, thighs, or toes. Acne or oily skin. Acne may develop during adulthood, and it may not get better with treatment. Weight gain or obesity. Patches of thickened and dark brown or black skin on the neck, arms, breasts, or thighs. How is this diagnosed? This condition is diagnosed based on: Your medical history. A physical exam that includes a pelvic exam. Your health care provider may look for areas of increased hair growth on your skin. Tests, such as: ?An ultrasound to check the ovaries for cysts and to view the lining of the uterus. ?Blood tests to check levels of sugar (glucose), male hormone (testosterone), and female hormones (estrogen and progesterone). How is this treated? There is no cure for this condition, but treatment can help to manage symptoms and prevent more health problems from developing. Treatment varies depending on your symptoms and if you want to have a baby or if you need control. Treatment may include: Making nutrition and lifestyle changes. Taking the progesterone hormone to start a menstrual period. Taking control pills to help you have regular menstrual periods. Taking medicines such as: ?Medicines to make you ovulate, if you want to get . ?Medicine to reduce extra hair growth. Having surgery in severe cases. This may involve making small holes in one or both of your ovaries.This decreases the amount of testosterone that your body makes. Follow these instructions at home: Take jrnp-oys-cmjsctc and prescription medicines only as told by your health care provider. Follow a healthy meal plan that includes lean proteins, complex carbohydrates, fresh fruits and vegetables, low-fat dairy products, healthy fats, and fiber. If you are overweight, lose weight as told by your health care provider. Your health care provider can determine how much weight loss is best for you and can help you lose weight safely. Keep all follow-up visits. This is important. Contact a health care provider if: Your symptoms do not get better with medicine. Your symptoms get worse or you develop new symptoms. Summary Polycystic ovarian syndrome (PCOS) is a common hormonal disorder among women of reproductive age. PCOS can cause problems with menstrual periods and make it hard to get and stay . If this condition is not treated, it can lead to serious health problems, such as diabetes and heart disease. There is no cure for this condition, but treatment can help to manage symptoms and prevent more health problems from developing. This information is not intended to replace advice given to you by your health care provider. Make sure you discuss any questions you have with your health care provider. Document Revised: 10/02/2020 Document Reviewed: 10/02/2020 Expandly Patient Education 2022 FlowJob. 05/20/2023 10:35:56 Dysmenorrhea Dysmenorrhea Dysmenorrhea refers to cramps caused by the muscles of the uterus tightening (dian) during amenstrual period. Dysmenorrhea may be mild, or it may be severe enough to interfere with everyday activities for a few days each month. Primary dysmenorrhea is menstrual cramps that last a couple of days when a female starts having menstrual periods or soon after. As a female gets older or has a baby, the cramps will usually lessen or disappear. Secondary dysmenorrhea begins later in life and is caused by a disorder in the reproductive system.It lasts longer, and it may cause more pain than primary dysmenorrhea. The pain may start before the period and last a few days after the period. What are the causes? Dysmenorrhea is usually caused by an underlying problem, such as: Endometriosis. The tissue that lines the uterus (endometrium) growing outside of the uterus in other areas of the body. Adenomyosis. Endometrial tissue growing into the muscular lees of the uterus. Pelvic congestive syndrome. Blood vessels in the pelvis that fill with blood just before the menstrual period. Overgrowth of cells (polyps) in the endometrium or the lower part of the uterus (cervix). Uterine prolapse. The uterus dropping down into the vagina due to stretched or weak muscles. Bladder problems, such as infection or inflammation. Intestinal problems, such as a tumor or irritable bowel syndrome. Cancer of the reproductive organs or bladder. Other causes of this condition may result from: A severely tipped uterus. A cervix that is closed or has a small opening. Noncancerous (benign) tumors in the uterus (fibroids). Pelvic inflammatory disease (PID). Pelvic scarring (adhesions) from a previous surgery. An ovarian cyst. An IUD (intrauterine device). What increases the risk? You are more likely to develop this condition if: You are younger than 30 years old. You started puberty early. You have irregular or heavy bleeding. You have never given . You have a family history of dysmenorrhea. You smoke or use nicotine products. You have high body weight or a low body weight. What are the signs or symptoms? Symptoms of this condition include: Cramping, throbbing pain in lower abdomen or lower back, or a feeling of fullness in the lower abdomen. Periods lasting for longer than 7 days. Headaches. Bloating. Fatigue. Nausea or vomiting. Diarrhea or loose stools. Sweating or dizziness. How is this diagnosed? This condition may be diagnosed based on: Your symptoms. Your medical history. A physical exam. Blood tests. A Pap test. This is a test in which cells from the cervix are tested for signs of cancer or infection. A test. You may also have other tests, including: Imaging tests, such as: ?Ultrasound. ?A procedure to remove and examine a sample of endometrial tissue (dilation and curettage, D&C). ?A procedure to visually examine the inside of: ?The uterus (hysteroscopy). ?The abdomen or pelvis (laparoscopy). ?The bladder (cystoscopy). ?X-rays. CT scan. MRI. How is this treated? Treatment depends on the cause of the dysmenorrhea. Treatment may include medicines, such as: Pain medicines. Hormone replacement therapy. ?Injections of progesterone to stop the menstrual period. ? control pills that contain the hormone progesterone. ?An IUD that contains the hormone progesterone. NSAIDs, such as ibuprofen. These may help to stop the production of hormones that cause cramps. Antidepressant medicines. Other treatment may include: Surgery to remove adhesions, endometriosis, ovarian cysts, fibroids, or the entire uterus (hysterectomy). Endometrial ablation. This is a procedure to destroy the endometrium. Presacral neurectomy. This is a procedure to cut the nerves in the bottom of the spine (sacrum) that go to the reproductive organs. Sacral nerve stimulation. This is a procedure to apply an electric current to nerves in the sacrum. Exercise and physical therapy. Meditation, yoga, and acupuncture. Work with your health care provider to determine what treatment or combination of treatments is best for you. Follow these instructions at home: Relieving pain and cramping If directed, apply heat to your lower back or abdomen when you experience pain or cramps. Use the heat source that your health care provider recommends, such as a moist heat pack or a heating pad. ?Place a towel between your skin and the heat source. ?Leave the heat on for 20 30 minutes. ?Remove the heat if your skin turns bright red. This is especially important if you are unable to feel pain, heat, or cold. You may have a greater risk of getting burned. Do not sleep with a heating pad on. Exercise. Activities such as walking, swimming, or biking can help to relieve cramps. Massage your lower back or abdomen to help relieve pain. General instructions Take bntt-gro-oajukrh and prescription medicines only as told by your health care provider. Ask your health care provider if the medicine prescribed to you requires you to avoid driving or using machinery. Avoid alcohol and caffeine during and right before your period. These can make cramps worse. Do not use any products that contain nicotine or tobacco. These products include cigarettes, chewing tobacco, and vaping devices, such as e-cigarettes. If you need help quitting, ask your health careprovider. Keep all follow-up visits. This is important. Contact a health care provider if: You have pain that gets worse or does not get better with medicine. You have pain with sex. You develop nausea or vomiting with your period that is not controlled with medicine. Get help right away if: You faint. Summary Dysmenorrhea refers to cramps caused by the muscles of the uterus tightening (dian) during amenstrual period. Dysmenorrhea may be mild, or it may be severe enough to interfere with everyday activities for a few days each month. Treatment depends on the cause of the dysmenorrhea. Work with your health care provider to determine what treatment or combination of treatments is best for you. This information is not intended to replace advice given to you by your health care provider. Make sure you discuss any questions you have with your health care provider. Document Revised: 12/10/2020 Document Reviewed: 12/10/2020 Exp[employer]ly Patient Education 2022 FlowJob. 05/20/2023 10:35:53 Galactorrhea Galactorrhea Galactorrhea is an abnormal milky discharge from the breast. The discharge may come from one or both nipples. It is different from the normal milk produced in nursing mothers. Galactorrhea usually occurs in women, but it can sometimes affect men. Galactorrhea can be a sign of something more serious, such as diseases of the kidney or thyroid, orproblems with the pituitary gland. Your health care provider may do various tests to help determinethe cause. What are the causes? This condition may be caused by: Irritation of the breast, which can result from injury, stimulation during sexual activity, or clothes rubbing against the nipple. Certain prescription medicines. control pills. Certain herbal supplements. Changes in hormone levels. Stress. Sometimes the cause is not known. What are the signs or symptoms? The main symptom of this condition is nipple discharge. The discharge is often white, yellow, or green, and can be seen in one or both breasts. The discharge may flow without stopping, or it may stopand start again. How is this diagnosed? This condition may be diagnosed based on: Collecting and testing the discharge. Blood tests. Imaging tests. Tests to rule out other conditions. How is this treated? In many cases, galactorrhea will go away without treatment. In this case, your health care providerwill monitor your condition to make sure that it goes away. When treatment is required, your health care provider will treat the underlying cause, such as irritation of the nipples or changes in hormone levels. Certain medicines may be stopped, if they are causing your symptoms. Follow these instructions at home: Breast care Watch your condition for any changes. Do not squeeze your breasts or nipples. Avoid breast stimulation during sexual activity. Perform a breast self-exam once a month. Doing this more often can irritate your breasts. Avoid clothes that rub on your nipples. Use breast pads to absorb the discharge. Wear a breast binder or a support bra to help prevent clothes from rubbing on your nipples. General instructions Take gnum-xzn-fabkcho and prescription medicines only as told by your health care provider. Keep all follow-up visits. This is important. Contact a health care provider if: You develop hot flashes, vaginal dryness, or a lack of sexual desire. You stop having menstrual periods, or they become irregular or far apart. You have headaches. You have vision problems. Get help right away if: You have breast discharge that is bloody or pus-like. You have breast pain. You feel a lump in your breast. You have wrinkling or dimpling on your breast. You notice that your breast becomes red and swollen. Summary Galactorrhea is an abnormal milky discharge from the breast. The fluid may come from one or both nipples and is often white, yellow, or green. Galactorrhea may be caused by various things, such as irritation of the nipples, medicines, or changes in hormone levels. Galactorrhea often goes away without treatment. However, it also may be a sign of something more serious, such as diseases of the kidney or thyroid, or problems with the pituitary gland. Get help right away if you have discharge that is bloody or pus-like, if you have breast pain or a lump, or if you have skin changes on your breast. This information is not intended to replace advice given to you by your health care provider. Make sure you discuss any questions you have with your health care provider. Document Revised: 02/23/2021 Document Reviewed: 02/23/2021 [employer] Patient Education 2022 [employer]. [facility] 11-29-2023 Hospital Discharge instructions Patient Education 04/06/2023 16:15:24 Nausea and Vomiting, Adult, Ztdq-yu-Euqd Nausea and Vomiting, Adult Nausea is feeling that you have an upset stomach and that you are about to vomit. Vomiting is when food in your stomach forcefully comes out of your mouth. Vomiting can make you feel weak. If you vomit, or if you are not able to drink enough fluids, you may not have enough water in your body (get dehydrated). If you do not have enough water in your body, you may: Feel tired. Feel thirsty. Have a dry mouth. Have cracked lips. Pee (urinate) less often. Older adults and people with other diseases or a weak body defense system (immune system) are at higher risk for not having enough water in the body. If you feel like you may vomit or you vomit, it is important to follow instructions from your doctor about how to take care of yourself. Follow these instructions at home: Watch your symptoms for any changes. Tell your doctor about them. Eating and drinking Take an ORS (oral rehydration solution). This is a drink that is sold at pharmacies and stores. Drink clear fluids in small amounts as you are able, such as: ?Water. ?Ice chips. ?Fruit juice that has water added (diluted fruit juice). ?Low-calorie sports drinks. Eat bland, bhff-md-jcuvmg foods in small amounts as you are able, such as: ?Bananas. ?Applesauce. ?Rice. ?Low-fat (lean) meats. ?[place]. ?Crackers. Avoid drinking fluids that have a lot of sugar or caffeine in them. This includes energy drinks, sports drinks, and soda. Avoid alcohol. Avoid spicy or fatty foods. General instructions Take irfz-isy-bimndgp and prescription medicines only as told by your doctor. Drink enough fluid to keep your pee (urine) pale yellow. Wash your hands often with soap and water for at least 20 seconds. If you cannot use soap and water, use hand coremaker apprentice. Make sure that everyone in your home washes their hands well and often. Rest at home until you feel better. Watch your condition for any changes. Take slow and deep breaths when you feel like you may vomit. Keep all follow-up visits. Contact a doctor if: Your symptoms get worse. You have new symptoms. You have a fever. You cannot drink fluids without vomiting. You feel like you may vomit for more than 2 days. You feel light-headed or dizzy. You have a headache. You have muscle cramps. You have a rash. You have pain while peeing. Get help right away if: You have pain in your chest, neck, arm, or jaw. You feel very weak or you faint. You vomit again and again. You have vomit that is bright red or looks like black coffee grounds. You have bloody or black poop (stools) or poop that looks like tar. You have a very bad headache, a stiff neck, or both. You have very bad pain, cramping, or bloating in your belly (abdomen). You have trouble breathing. You are breathing very quickly. Your heart is beating very quickly. Your skin feels cold and clammy. You feel confused. You have signs of losing too much water in your body, such as: ?Dark pee, very little pee, or no pee. ?Cracked lips. ?Dry mouth. ?Sunken eyes. ?Sleepiness. ?Weakness. These symptoms may be an emergency. Get help right away. Call 911. Do not wait to see if the symptoms will go away. Do not drive yourself to the hospital. Summary Nausea is feeling that you have an upset stomach and that you are about to vomit. Vomiting is when food in your stomach comes out of your mouth. Follow instructions from your doctor about eating and drinking. Take eghe-ysn-mrdyvhp and prescription medicines only as told by your doctor. Contact your doctor if your symptoms get worse or you have new symptoms. Keep all follow-up visits. This information is not intended to replace advice given to you by your health care provider. Make sure you discuss any questions you have with your health care provider. Document Revised: 10/30/2021 Document Reviewed: 10/30/2021 [employer] Patient Education 2022 [employer]. Follow Up Care 04/06/2023 13:50:03 With:Silvia YOUNG Address: [address] [place] [id number] Business (1) When:04/09/2023 15:52:06 Comments:Follow-up with your primary care provider in 3 to 5 days. If symptoms worsen, do not improve, or new symptoms arise please report back to emergency department for further evaluation. [facility]11-29-2023 Evaluation + Plan noteExtracted from: Title:ED Note Author:Luis Almanza PA-C te:04/06/23 Nausea and vomiting (R11.2: Nausea with vomiting, unspecified) Orders: ondansetron, 4 mg = 2 mL, Injection, IV Push, Once, Stop date 04/06/23 14:00:00 EST, STAT, Start date 04/06/23 14:00:00 EST, 04/06/23 14:00:00 EST ondansetron, 4 mg = 1 tab(s), Oral, q8hr, PRN Nausea/Vomiting, # 30 tab(s), Refills(s) 0, [id number], 173, cm, 04/06/23 13:57:00 EST, Height/Length Dosing, 134.1, kg, 04/06/23 13:57:00 EST, Weight Dosing promethazine, 12.5 mg = 1 supp, Rectal, q4hr, PRN Nausea/Vomiting, # 6 EA, Refills(s) 0, [id number], 173, cm, 04/06/23 13:57:00 EST, Height/Length Dosing, 134.1, kg, 04/06/23 13:57:00 EST, Weight Dosing Sodium Chloride 0.9% intravenous solution, 1,000 mL, Soln-IV, IV, Once, Stop date 04/06/23 14:00:00 EST, STAT, Start date 04/06/23 14:00:00 EST, Infuse over 61, minute(s) Automated Diff Basic Metabolic Panel CBC w/ Auto Diff eGFR Hepatic Function Panel Lipase Level UA With Cult Reflex Future Appointments Appointment Date:06/24/2023 10:20:00 AM Scheduled Provider:Irasema Love Location:[facility] Appointment Type: Open Appointment Date:09/22/2023 09:30:00 AM Scheduled Provider: Location:[facility] Appointment Type:FM Medicare Wellness Subsequent Future Scheduled Tests Laboratory* HgbA1c 12/21/22 * Microalbumin Level Urine 12/21/22 * TSH With T4fr Reflex 12/21/22 * Lipid Panel 12/21/22 [facility]11-11-2023 Hospital Discharge instructions Patient Education 03/19/2023 16:51:40 Migraine Headache Migraine Headache A migraine headache is an intense, throbbing pain on one side or both sides of the head. Migraine headaches may also cause other symptoms, such as nausea, vomiting, and sensitivity to light and noise. A migraine headache can last from 4 hours to 3 days. Talk with your doctor about what things may bring on (trigger) your migraine headaches. What are the causes? The exact cause of this condition is not known. However, a migraine may be caused when nerves in the brain become irritated and release chemicals that cause inflammation of blood vessels. This inflammation causes pain. This condition may be triggered or caused by: Drinking alcohol. Smoking. Taking medicines, such as: ?Medicine used to treat chest pain (nitroglycerin). ? control pills. ?Estrogen. ?Certain blood pressure medicines. Eating or drinking products that contain nitrates, glutamate, aspartame, or tyramine. Aged cheeses,chocolate, or caffeine may also be triggers. Doing physical activity. Other things that may trigger a migraine headache include: Menstruation. . Hunger. Stress. Lack of sleep or too much sleep. Weather changes. Fatigue. What increases the risk? The following factors may make you more likely to experience migraine headaches: Being a certain age. This condition is more common in people who are 25 55 years old. Being female. Having a family history of migraine headaches. Being . Having a mental health condition, such as depression or anxiety. Being obese. What are the signs or symptoms? The main symptom of this condition is pulsating or throbbing pain. This pain may: Happen in any area of the head, such as on one side or both sides. Interfere with daily activities. Get worse with physical activity. Get worse with exposure to bright lights or loud noises. Other symptoms may include: Nausea. Vomiting. Dizziness. General sensitivity to bright lights, loud noises, or smells. Before you get a migraine headache, you may get warning signs (an aura). An aura may include: Seeing flashing lights or having blind spots. Seeing bright spots, halos, or zigzag lines. Having tunnel vision or blurred vision. Having numbness or a tingling feeling. Having trouble talking. Having muscle weakness. Some people have symptoms after a migraine headache (postdromal phase), such as: Feeling tired. Difficulty concentrating. How is this diagnosed? A migraine headache can be diagnosed based on: Your symptoms. A physical exam. Tests, such as: ?CT scan or an MRI of the head. These imaging tests can help rule out other causes of headaches. ?Taking fluid from the spine (lumbar puncture) and analyzing it (cerebrospinal fluid analysis, or CSF analysis). How is this treated? This condition may be treated with medicines that: Relieve pain. Relieve nausea. Prevent migraine headaches. Treatment for this condition may also include: Acupuncture. Lifestyle changes like avoiding foods that trigger migraine headaches. Biofeedback. Cognitive behavioral therapy. Follow these instructions at home: Medicines Take sbsh-puj-cksbrgy and prescription medicines only as told by your health care provider. Ask your health care provider if the medicine prescribed to you: ?Requires you to avoid driving or using heavy machinery. ?Can cause constipation. You may need to take these actions to prevent or treat constipation: ?Drink enough fluid to keep your urine pale yellow. ?Take ztft-yyj-cicojhj or prescription medicines. ?Eat foods that are high in fiber, such as beans, whole grains, and fresh fruits and vegetables. ?Limit foods that are high in fat and processed sugars, such as fried or sweet foods. Lifestyle Do not drink alcohol. Do not use any products that contain nicotine or tobacco, such as cigarettes, e- cigarettes, and chewing tobacco. If you need help quitting, ask your health care provider. Get at least 8 hours of sleep every night. Find ways to manage stress, such as meditation, deep breathing, or yoga. General instructions Keep a journal to find out what may trigger your migraine headaches. For example, write down: ?What you eat and drink. ?How much sleep you get. ?Any change to your diet or medicines. If you have a migraine headache: ?Avoid things that make your symptoms worse, such as bright lights. ?It may help to lie down in a dark, quiet room. ?Do not drive or use heavy machinery. ?Ask your health care provider what activities are safe for you while you are experiencing symptoms. Keep all follow-up visits as told by your health care provider. This is important. Contact a health care provider if: You develop symptoms that are different or more severe than your usual migraine headache symptoms. You have more than 15 headache days in one month. Get help right away if: Your migraine headache becomes severe. Your migraine headache lasts longer than 72 hours. You have a fever. You have a stiff neck. You have vision loss. Your muscles feel weak or like you cannot control them. You start to lose your balance often. You have trouble walking. You faint. You have a seizure. Summary A migraine headache is an intense, throbbing pain on one side or both sides of the head. Migraines may also cause other symptoms, such as nausea, vomiting, and sensitivity to light and noise. This condition may be treated with medicines and lifestyle changes. You may also need to avoid certain things that trigger a migraine headache. Keep a journal to find out what may trigger your migraine headaches. Contact your health care provider if you have more than 15 headache days in a month or you develop symptoms that are different or more severe than your usual migraine headache symptoms. This information is not intended to replace advice given to you by your health care provider. Make sure you discuss any questions you have with your health care provider. Document Revised: 08/17/2019 Document Reviewed: 06/07/2019 [employer] Patient Education 2022 [employer]. Follow Up Care 03/19/2023 13:23:56 With:David Eubanks Address: [address] [place] [address] Business (1) When:03/22/2023 16:51:25 Comments:Call the office of your primary care doctor to arrange for follow-up within the above-stated timeframe. Follow-up with your primary care doctor about this ED visit. You should review your labs, imaging, and diagnoses from this ED visit with your primary care physician. There are occasionally non-emergent findings that require additional follow-up after your ED visit. If you were prescribed medications you should discuss possible side-effects and drug interactions with your pharmacist. Call 911 or go to the nearest Emergency Department if you develop any new or worsening symptoms.Seek immediate medical attention if you develop: worsening headache, nausea, vomiting, confusion, weakness, loss of motion in your arms or legs, loss of control of your urine or stool, difficulty waking from sleep, neck pain, fever, or any new or worsening symptoms. [facility]11-11-2023 Evaluation + Plan noteExtracted from: Title:ED Note Author:James Faulkner DO Date:05/19/22 Acute headache (R51.9: Heada jadiel, unspecified) Orders: ketorolac, 30 mg = 1 mL, Injection, IV Push, Once, Stop date 03/19/23 15:10:00 EST, STAT, Start date 03/19/23 15:10:00 EST, 03/19/23 15:10:00 EST magnesium sulfate + Dextrose 5% in Water intravenous solution 100 mL, 1 gram = 100 mL, IV Piggyback, Once, Stop date 03/19/23 15:11:00 EST, STAT, Start date 03/19/23 15:11:00 EST, 100 mL/hr, Infuse over 60 minute(s), 03/19/23 15:11:00 EST metoclopramide, 10 mg = 2 mL, Injection, IV Push, Once, Stop date 03/19/23 15:11:00 EST, STAT, Start date 03/19/23 15:11:00 EST, 03/19/23 15:11:00 EST Sodium Chloride 0.9% intravenous solution 1,000 mL, 1,000 mL, IV, 999 mL/hr, STAT, Start date 03/19/23 15:10:00 EST, 1 hour(s), Total volume (mL): 1,000, 134 kg, 2.54, m2 Future Appointments Appointment Date:06/24/2023 10:20:00 AM Scheduled Provider:Irasema Love Location:[facility] Appointment Type: Open Appointment Date:09/22/2023 09:30:00 AM Scheduled Provider: Location:[facility] Appointment Type:FM Medicare Wellness Subsequent Future Scheduled Tests Laboratory* HgbA1c 12/21/22 * Microalbumin Level Urine 12/21/22 * TSH With T4fr Reflex 12/21/22 * Lipid Panel 12/21/22 [facility]11-06-2023 Hospital Discharge instructions Patient Education 03/14/2023 21:01:40 Asthma, Adult, Owdj-sb-Rplt Asthma, Adult Asthma is a condition that causes swelling and narrowing of the airways. These are the passages that lead from the nose and mouth down into the lungs. When asthma symptoms get worse it is called an asthma attack or flare. This can make it hard to breathe. Asthma flares can range from minor to life-threatening. There is no cure for asthma, but medicines and lifestyle changes can help to control it. What are the causes? It is not known exactly what causes asthma, but certain things can cause asthma symptoms to get worse (triggers). What can trigger an asthma attack? Cigarette smoke. Mold. Dust. Your pet's skin flakes (dander). Cockroaches. Pollen. Air pollution (like household rag sorter and cutter, wood smoke, smog, or chemical odors). What are the signs or symptoms? Trouble breathing (shortness of breath). Coughing. Making high-pitched whistling sounds when you breathe, most often when you breathe out (wheezing). Chest tightness. Tiredness with little activity. Poor exercise tolerance. How is this treated? Controller medicines that help prevent asthma symptoms. Fast-acting reliever or rescue medicines. These give short-term relief of asthma symptoms. Allergy medicines if your attacks are brought on by allergens. Medicines to help control the body's defense (immune) system. Staying away from the things that cause asthma attacks. Follow these instructions at home: Avoiding triggers in your home Do not allow anyone to smoke in your home. Limit use of fireplaces and wood stoves. Get rid of pests (such as roaches and mice) and their droppings. Keep your home clean. ?Clean your floors. Dust regularly. Use cleaning products that do not smell. ?Wash bed sheets and blankets every week in hot water. Dry them in a dryer. ?Have someone vacuum when you are not home. ?Change your heating and air conditioning filters often. Use blankets that are made of polyester or cotton. General instructions Take qcfi-dbk-xjukzev and prescription medicines only as told by your doctor. Do not smoke or use any products that contain nicotine or tobacco. If you need help quitting, ask your doctor. ?Stay away from secondhand smoke. Avoid doing things outdoors when allergen counts are high and when air quality is low. Warm up before you exercise. Take time to cool down after exercise. Use a peak flow meter as told by your doctor. A peak flow meter is a tool that measures how well your lungs are working. ?Keep track of the peak flow meter's readings. Write them down. Follow your asthma action plan. This is a written plan for taking care of your asthma and treating your attacks. Make sure you get all the shots (vaccines) that your doctor recommends. Ask your doctor about a flushot and a pneumonia shot. Keep all follow-up visits. Contact a doctor if: You have wheezing, shortness of breath, or a cough even while taking medicine to prevent attacks. The mucus you cough up (sputum) is thicker than usual. The mucus you cough up changes from clear or white to yellow, green, fleming, or is bloody. You have problems from the medicine you are taking, such as: ?A rash. ?Itching. ?Swelling. ?Trouble breathing. You need reliever medicines more than 2 3 times a week. Your peak flow reading is still at 50 79% of your personal best after following the action plan for1 hour. You have a fever. Get help right away if: You seem to be worse and are not responding to medicine during an asthma attack. You are short of breath even at rest. You get short of breath when doing very little activity. You have trouble eating, drinking, or talking. You have chest pain or tightness. You have a fast heartbeat. Your lips or fingernails start to turn blue. You are light-headed or dizzy, or you faint. Your peak flow is less than 50% of your personal best. You feel too tired to breathe normally. These symptoms may be an emergency. Get help right away. Call 911. Do not wait to see if the symptoms will go away. Do not drive yourself to the hospital. Summary Asthma is a long-term (chronic) condition in which the airways get tight and narrow. An asthma attack can make it hard to breathe. Asthma cannot be cured, but medicines and lifestyle changes can help control it. Make sure you understand how to avoid triggers and how and when to use your medicines. Avoid things that can cause allergy symptoms (allergens). These include animal skin flakes (dander)and pollen from trees or grass. Avoid things that pollute the air. These may include household rag sorter and cutter, wood smoke, smog, or chemical odors. This information is not intended to replace advice given to you by your health care provider. Make sure you discuss any questions you have with your health care provider. Document Revised: 02/01/2022 Document Reviewed: 02/01/2022 [employer] Patient Education 2022 [employer] 03/14/2023 21:01:38 Cough, Adult, Mbhd-qz-Nyve Cough, Adult A cough helps to clear your throat and lungs. A cough may be a sign of an illness or another medical condition. An acute cough may only last 2 3 weeks, while a chronic cough may last 8 or more weeks. Many things can cause a cough. They include: Germs (viruses or bacteria) that attack the airway. Breathing in things that bother (irritate) your lungs. Allergies. Asthma. Mucus that runs down the back of your throat (postnasal drip). Smoking. Acid backing up from the stomach into the tube that moves food from the mouth to the stomach (gastroesophageal reflux). Some medicines. Lung problems. Other medical conditions, such as heart failure or a blood clot in the lung (pulmonary embolism). Follow these instructions at home: Medicines Take owqv-jry-fyrfdlp and prescription medicines only as told by your doctor. Talk with your doctor before you take medicines that stop a cough (cough suppressants). Lifestyle Do not smoke, and try not to be around smoke. Do not use any products that contain nicotine or tobacco, such as cigarettes, e-cigarettes, and chewing tobacco. If you need help quitting, ask your doctor. Drink enough fluid to keep your pee (urine) pale yellow. Avoid caffeine. Do not drink alcohol if your doctor tells you not to drink. General instructions Watch for any changes in your cough. Tell your doctor about them. Always cover your mouth when you cough. Stay away from things that make you cough, such as perfume, candles, campfire smoke, or cleaning products. If the air is dry, use a cool mist vaporizer or humidifier in your home. If your cough is worse at night, try using extra pillows to raise your head up higher while you sleep. Rest as needed. Keep all follow-up visits as told by your doctor. This is important. Contact a doctor if: You have new symptoms. You cough up pus. Your cough does not get better after 2 3 weeks, or your cough gets worse. Cough medicine does not help your cough and you are not sleeping well. You have pain that gets worse or pain that is not helped with medicine. You have a fever. You are losing weight and you do not know why. You have night sweats. Get help right away if: You cough up blood. You have trouble breathing. Your heartbeat is very fast. These symptoms may be an emergency. Do not wait to see if the symptoms will go away. Get medical help right away. Call your local emergency services (911 in the [place] Do not drive yourself to the hospital. Summary A cough helps to clear your throat and lungs. Many things can cause a cough. Take zyhm-mvn-kmzfcgm and prescription medicines only as told by your doctor. Always cover your mouth when you cough. Contact a doctor if you have new symptoms or you have a cough that does not get better or gets worse. This information is not intended to replace advice given to you by your health care provider. Make sure you discuss any questions you have with your health care provider. Document Revised: 06/13/2020 Document Reviewed: 05/14/2019 Exp[employer] Patient Education 2022 FlowJob. [facility] [place] 08-13-2023 Hospital Discharge instructions Patient Education 12/19/2022 14:41:03 Health Maintenance, Female Health Maintenance, Female Adopting a healthy lifestyle and getting preventive care are important in promoting health and wellness. Ask your health care provider about: The right schedule for you to have regular tests and exams. Things you can do on your own to prevent diseases and keep yourself healthy. What should I know about diet, weight, and exercise? Eat a healthy diet Eat a diet that includes plenty of vegetables, fruits, low-fat dairy products, and lean protein. Do not eat a lot of foods that are high in solid fats, added sugars, or sodium. Maintain a healthy weight Body mass index (BMI) is used to identify weight problems. It estimates body fat based on height and weight. Your health care provider can help determine your BMI and help you achieve or maintain a healthy weight. Get regular exercise Get regular exercise. This is one of the most important things you can do for your health. Most adults should: Exercise for at least 150 minutes each week. The exercise should increase your heart rate and make you sweat (moderate-intensity exercise). Do strengthening exercises at least twice a week. This is in addition to the moderate-intensity exercise. Spend less time sitting. Even light physical activity can be beneficial. Watch cholesterol and blood lipids Have your blood tested for lipids and cholesterol at 20 years of age, then have this test every 5 years. Have your cholesterol levels checked more often if: Your lipid or cholesterol levels are high. You are older than 40 years of age. You are at high risk for heart disease. What should I know about cancer screening? Depending on your health history and family history, you may need to have cancer screening at various ages. This may include screening for: Breast cancer. Cervical cancer. Colorectal cancer. Skin cancer. Lung cancer. What should I know about heart disease, diabetes, and high blood pressure? Blood pressure and heart disease High blood pressure causes heart disease and increases the risk of stroke. This is more likely to develop in people who have high blood pressure readings or are overweight. Have your blood pressure checked: ?Every 3 5 years if you are 18 39 years of age. ?Every year if you are 40 years old or older. Diabetes Have regular diabetes screenings. This checks your fasting blood sugar level. Have the screening done: Once every three years after age 40 if you are at a normal weight and have a low risk for diabetes. More often and at a younger age if you are overweight or have a high risk for diabetes. What should I know about preventing infection? Hepatitis B If you have a higher risk for hepatitis B, you should be screened for this virus. Talk with your health care provider to find out if you are at risk for hepatitis B infection. Hepatitis C Testing is recommended for: Everyone born from 1945 through 1965. Anyone with known risk factors for hepatitis C. Sexually transmitted infections (STIs) Get screened for STIs, including gonorrhea and chlamydia, if: ?You are sexually active and are younger than 24 years of age. ?You are older than 24 years of age and your health care provider tells you that you are at risk for this type of infection. ?Your sexual activity has changed since you were last screened, and you are at increased risk for chlamydia or gonorrhea. Ask your health care provider if you are at risk. Ask your health care provider about whether you are at high risk for HIV. Your health care providermay recommend a prescription medicine to help prevent HIV infection. If you choose to take medicineto prevent HIV, you should first get tested for HIV. You should then be tested every 3 months for as long as you are taking the medicine. If you are about to stop having your period (premenopausal) and you may become , seek counseling before you get . Take 400 to 800 micrograms (mcg) of folic acid every day if you become . Ask for control (contraception) if you want to prevent . Osteoporosis and menopause Osteoporosis is a disease in which the bones lose minerals and strength with aging. This can resultin bone fractures. If you are 65 years old or older, or if you are at risk for osteoporosis and fractures, ask your health care provider if you should: Be screened for bone loss. Take a calcium or vitamin D supplement to lower your risk of fractures. Be given hormone replacement therapy (HRT) to treat symptoms of menopause. Follow these instructions at home: Alcohol use Do not drink alcohol if: ?Your health care provider tells you not to drink. ?You are , may be , or are planning to become . If you drink alcohol: ?Limit how much you have to: ?0 1 drink a day. ?Know how much alcohol is in your drink. In the [place] one drink equals one 12 oz bottle of beer (355 mL), one 5 oz glass of wine (148 mL), or one 1 oz glass of hard liquor (44 mL). Lifestyle Do not use any products that contain nicotine or tobacco. These products include cigarettes, chewing tobacco, and vaping devices, such as e-cigarettes. If you need help quitting, ask your health careprovider. Do not use street drugs. Do not share needles. Ask your health care provider for help if you need support or information about quitting drugs. General instructions Schedule regular health, dental, and eye exams. Stay current with your vaccines. Tell your health care provider if: ?You often feel depressed. ?You have ever been abused or do not feel safe at home. Summary Adopting a healthy lifestyle and getting preventive care are important in promoting health and wellness. Follow your health care provider's instructions about healthy diet, exercising, and getting tested or screened for diseases. Follow your health care provider's instructions on monitoring your cholesterol and blood pressure. This information is not intended to replace advice given to you by your health care provider. Make sure you discuss any questions you have with your health care provider. Document Revised: 09/14/2021 Document Reviewed: 09/14/2021 Expandly Patient Education 2022 FlowJob. 12/19/2022 14:41:01 Diabetes Mellitus and Nutrition, Adult Diabetes Mellitus and Nutrition, Adult When you have diabetes, or diabetes mellitus, it is very important to have healthy eating habits because your blood sugar (glucose) levels are greatly affected by what you eat and drink. Eating healthy foods in the right amounts, at about the same times every day, can help you: Manage your blood glucose. Lower your risk of heart disease. Improve your blood pressure. Reach or maintain a healthy weight. What can affect my meal plan? Every person with diabetes is different, and each person has different needs for a meal plan. Your health care provider may recommend that you work with a dietitian to make a meal plan that is best for you. Your meal plan may vary depending on factors such as: The calories you need. The medicines you take. Your weight. Your blood glucose, blood pressure, and cholesterol levels. Your activity level. Other health conditions you have, such as heart or kidney disease. How do carbohydrates affect me? Carbohydrates, also called carbs, affect your blood glucose level more than any other type of food.Eating carbs raises the amount of glucose in your blood. It is important to know how many carbs you can safely have in each meal. This is different for every person. Your dietitian can help you calculate how many carbs you should have at each meal and for each snack. How does alcohol affect me? Alcohol can cause a decrease in blood glucose (hypoglycemia), especially if you use insulin or takecertain diabetes medicines by mouth. Hypoglycemia can be a life-threatening condition. Symptoms of hypoglycemia, such as sleepiness, dizziness, and confusion, are similar to symptoms of having too much alcohol. Do not drink alcohol if: ?Your health care provider tells you not to drink. ?You are , may be , or are planning to become . If you drink alcohol: ?Limit how much you have to: ?0 1 drink a day for women. ?0 2 drinks a day for men. ?Know how much alcohol is in your drink. In the [place] one drink equals one 12 oz bottle of beer (355 mL), one 5 oz glass of wine (148 mL), or one 1 oz glass of hard liquor (44 mL). ?Keep yourself hydrated with water, diet soda, or unsweetened iced tea. Keep in mind that regular soda, juice, and other mixers may contain a lot of sugar and must be counted as carbs. What are tips for following this plan? Reading food labels Start by checking the serving size on the Nutrition Facts label of packaged foods and drinks. The number of calories and the amount of carbs, fats, and other nutrients listed on the label are based on one serving of the item. Many items contain more than one serving per package. Check the total grams (g) of carbs in one serving. Check the number of grams of saturated fats and trans fats in one serving. Choose foods that have alow amount or none of these fats. Check the number of milligrams (mg) of salt (sodium) in one serving. Most people should limit totalsodium intake to less than 2,300 mg per day. Always check the nutrition information of foods labeled as low-fat or nonfat. These foods may be higher in added sugar or refined carbs and should be avoided. Talk to your dietitian to identify your daily goals for nutrients listed on the label. Shopping Avoid buying canned, pre-made, or processed foods. These foods tend to be high in fat, sodium, and added sugar. Shop around the outside edge of the grocery store. This is where you will most often find fresh fruits and vegetables, bulk grains, fresh meats, and fresh dairy products. Cooking Use low-heat cooking methods, such as baking, instead of high-heat cooking methods, such as deep frying. Cook using healthy oils, such as olive, canola, or sunflower oil. Avoid cooking with butter, cream, or high-fat meats. Meal planning Eat meals and snacks regularly, preferably at the same times every day. Avoid going long periods oftime without eating. Eat foods that are high in fiber, such as fresh fruits, vegetables, beans, and whole grains. Eat 4 6 oz (112 168 g) of lean protein each day, such as lean meat, chicken, fish, eggs, or tofu. One ounce (oz) (28 g) of lean protein is equal to: ?1 oz (28 g) of meat, chicken, or fish. ?1 egg. ? cup (62 g) of tofu. Eat some foods each day that contain healthy fats, such as avocado, nuts, seeds, and fish. What foods should I eat? Fruits Berries. Apples. Oranges. Peaches. Apricots. Plums. Grapes. Mangoes. Papayas. Pomegranates. Kiwi. Cherries. Vegetables Leafy greens, including lettuce, spinach, kale, chard, jamal greens, mustard greens, and cabbage.Beets. Cauliflower. Broccoli. Carrots. Green beans. Tomatoes. Peppers. Onions. Cucumbers. [place] sprouts. Grains Whole grains, such as whole-wheat or whole-grain bread, crackers, tortillas, cereal, and pasta. Unsweetened oatmeal. Quinoa. Brown or wild rice. Meats and other proteins Seafood. Poultry without skin. Lean cuts of poultry and beef. Tofu. Nuts. Seeds. Dairy Low-fat or fat-free dairy products such as milk, yogurt, and cheese. The items listed above may not be a complete list of foods and beverages you can eat and drink. Contact a dietitian for more information. What foods should I avoid? Fruits Fruits canned with syrup. Vegetables Canned vegetables. Frozen vegetables with butter or cream sauce. Grains Refined white flour and flour products such as bread, pasta, snack foods, and cereals. Avoid all processed foods. Meats and other proteins Fatty cuts of meat. Poultry with skin. Breaded or fried meats. Processed meat. Avoid saturated fats. Dairy Full-fat yogurt, cheese, or milk. Beverages Sweetened drinks, such as soda or iced tea. The items listed above may not be a complete list of foods and beverages you should avoid. Contact a dietitian for more information. Questions to ask a health care provider Do I need to meet with a certified diabetes care and education diagnostician? Do I need to meet with a dietitian? What number can I call if I have questions? When are the best times to check my blood glucose? Where to find more information: [place] [employer]: diabetes.org Academy of Nutrition and Dietetics: eatright.org National [place] of Diabetes and Digestive and Kidney Diseases: niddk.nih.gov Association of Diabetes Care & Education Specialists: diabeteseducator.org Summary It is important to have healthy eating habits because your blood sugar (glucose) levels are greatlyaffected by what you eat and drink. It is important to use alcohol carefully. A healthy meal plan will help you manage your blood glucose and lower your risk of heart disease. Your health care provider may recommend that you work with a dietitian to make a meal plan that is best for you. This information is not intended to replace advice given to you by your health care provider. Make sure you discuss any questions you have with your health care provider. Document Revised: 11/26/2020 Document Reviewed: 11/26/2020 Exp[employer] Patient Education 2022 FlowJob. 12/19/2022 14:41:01 Diabetes Mellitus and Exercise Diabetes Mellitus and Exercise Exercising regularly is important for overall health, especially for people who have diabetes mellitus. Exercising is not only about losing weight. It has many other health benefits, such as increasing muscle strength and bone density and reducing body fat and stress. This leads to improved fitness, flexibility, and endurance, all of which result in better overall health. What are the benefits of exercise if I have diabetes? Exercise has many benefits for people with diabetes. They include: Helping to lower and control blood sugar (glucose). Helping the body to respond better to the hormone insulin by improving insulin sensitivity. Reducing how much insulin the body needs. Lowering the risk for heart disease by: ?Lowering bad cholesterol and triglyceride levels. ?Increasing good cholesterol levels. ?Lowering blood pressure. ?Lowering blood glucose levels. What is my activity plan? Your health care provider or certified breastfeeding educator can help you make a plan for the type and frequency of exercise that works for you. This is called your activity plan. Be sure to: Get at least 150 minutes of medium-intensity or high-intensity exercise each week. Exercises may include brisk walking, biking, or water aerobics. Do stretching and strengthening exercises, such as yoga or weight lifting, at least 2 times a week. Spread out your activity over at least 3 days of the week. Get some form of physical activity each day. ?Do not go more than 2 days in a row without some kind of physical activity. ?Avoid being inactive for more than 90 minutes at a time. Take frequent breaks to walk or stretch. Choose exercises or activities that you enjoy. Set realistic goals. Start slowly and gradually increase your exercise intensity over time. How do I manage my diabetes during exercise? Monitor your blood glucose Check your blood glucose before and after exercising. If your blood glucose is: ?240 mg/dL (13.3 mmol/L) or higher before you exercise, check your urine for ketones. These are chemicals created by the liver. If you have ketones in your urine, do not exercise until your blood glucose returns to normal. ?100 mg/dL (5.6 mmol/L) or lower, eat a snack containing 15 20 grams of carbohydrate. Check your blood glucose 15 minutes after the snack to make sure that your glucose level is above 100 mg/dL (5.6 mmol/L) before you start your exercise. Know the symptoms of low blood glucose (hypoglycemia) and how to treat it. Your risk for hypoglycemia increases during and after exercise. Follow these tips and your health care provider's instructions Keep a carbohydrate snack that is fast-acting for use before, during, and after exercise to help prevent or treat hypoglycemia. Avoid injecting insulin into areas of the body that are going to be exercised. For example, avoid injecting insulin into: ?Your arms, when you are about to play tennis. ?Your legs, when you are about to go jogging. Keep records of your exercise habits. Doing this can help you and your health care provider adjust your diabetes management plan as needed. Write down: ?Food that you eat before and after you exercise. ?Blood glucose levels before and after you exercise. ?The type and amount of exercise you have done. Work with your health care provider when you start a new exercise or activity. He or she may need to: ?Make sure that the activity is safe for you. ?Adjust your insulin, other medicines, and food that you eat. Drink plenty of water while you exercise. This prevents loss of water (dehydration) and problems caused by a lot of heat in the body (heat stroke). Where to find more information [place] [employer]: www.diabetes.org Summary Exercising regularly is important for overall health, especially for people who have diabetes mellitus. Exercising has many health benefits. It increases muscle strength and bone density and reduces bodyfat and stress. It also lowers and controls blood glucose. Your health care provider or certified breastfeeding educator can help you make an activity plan for thetype and frequency of exercise that works for you. Work with your health care provider to make sure any new activity is safe for you. Also work with your health care provider to adjust your insulin, other medicines, and the food you eat. This information is not intended to replace advice given to you by your health care provider. Make sure you discuss any questions you have with your health care provider. Document Revised: 01/21/2020 Document Reviewed: 01/21/2020 Exp[employer]ly Patient Education 2022 FlowJob. 12/19/2022 14:41:00 Blood Glucose Monitoring, Adult Blood Glucose Monitoring, Adult Monitoring your blood sugar (glucose) is an important part of managing your diabetes. Blood glucosemonitoring involves checking your blood glucose as often as directed and keeping a log or record ofyour results over time. Checking your blood glucose regularly and keeping a blood glucose log can: Help you and your health care provider adjust your diabetes management plan as needed, including your medicines or insulin. Help you understand how food, exercise, illnesses, and medicines affect your blood glucose. Let you know what your blood glucose is at any time. You can quickly find out if you have low bloodglucose (hypoglycemia) or high blood glucose (hyperglycemia). Your health care provider will set individualized treatment goals for you. Your goals will be basedon your age, other medical conditions you have, and how you respond to diabetes treatment. Generally, the goal of treatment is to maintain the following blood glucose levels: Before meals (preprandial): 80 130 mg/dL (4.4 7.2 mmol/L). After meals (postprandial): below 180 mg/dL (10 mmol/L). A1C level: less than 7%. Supplies needed: Blood glucose meter. Test strips for your meter. Each meter has its own strips. You must use the strips that came with your meter. A needle to prick your finger (lancet). Do not use a lancet more than one time. A device that holds the lancet (lancing device). A journal or log book to write down your results. How to check your blood glucose Checking your blood glucose 1.Wash your hands for at least 20 seconds with soap and water. 2.Prick the side of your finger (not the tip) with the lancet. Do not use the same finger consecutively. 3.Gently rub the finger until a small drop of blood appears. 4.Follow instructions that come with your meter for inserting the test strip, applying blood to thestrip, and using your blood glucose meter. 5.Write down your result and any notes in your log. Using alternative sites Some meters allow you to use areas of your body other than your finger (alternative sites) to test your blood. The most common alternative sites are the forearm, the thigh, and the palm of your hand. Alternative sites may not be as accurate as the fingers because blood flow is slower in those areas. This means that the result you get may be delayed, and it may be different from the result that you would get from your finger. Use the finger only, and do not use alternative sites, if: You think you have hypoglycemia. You sometimes do not know that your blood glucose is getting low (hypoglycemia unawareness). General tips and recommendations Blood glucose log Every time you check your blood glucose, write down your result. Also write down any notes about things that may be affecting your blood glucose, such as your diet and exercise for the day. This information can help you and your health care provider: ?Look for patterns in your blood glucose over time. ?Adjust your diabetes management plan as needed. Check if your meter allows you to download your records to a computer or if there is an carlo for [employer]end[employer]. Most glucose meters store a record of glucose readings in the meter. If you have type 1 diabetes: Check your blood glucose 4 or more times a day if you are on intensive insulin therapy with multiple daily injections (MDI) or if you are using an insulin pump. Check your blood glucose: ?Before every meal and snack. ?Before bedtime. Also check your blood glucose: ?If you have symptoms of hypoglycemia. ?After treating low blood glucose. ?Before doing activities that create a risk for injury, like driving or using machinery. ?Before and after exercise. ?Two hours after a meal. ?Occasionally between 2:00 a.m. and 3:00 a.m., as directed. You may need to check your blood glucose more often, 6 10 times per day, if: ?You have diabetes that is not well controlled. ?You are ill. ?You have a history of severe hypoglycemia. ?You have hypoglycemia unawareness. If you have type 2 diabetes: Check your blood glucose 2 or more times a day if you take insulin or other diabetes medicines. Check your blood glucose 4 or more times a day if you are on intensive insulin therapy. Occasionally, you may also need to check your glucose between 2:00 a.m. and 3:00 a.m., as directed. Also check your blood glucose: ?Before and after exercise. ?Before doing activities that create a risk for injury, like driving or using machinery. You may need to check your blood glucose more often if: ?Your medicine is being adjusted. ?Your diabetes is not well controlled. ?You are ill. General tips Make sure you always have your supplies with you. After you use a few boxes of test strips, adjust (calibrate) your blood glucose meter by following instructions that came with your meter. If you have questions or need help, all blood glucose meters have a 24-hour hotline phone number available that you can call. Also contact your health care provider with questions or concerns you mayhave. Where to find more information The [place] [employer] Association: www.diabetes.org The Association of Diabetes Care & Education Specialists: www.diabeteseducator.org Contact a health care provider if: Your blood glucose is at or above 240 mg/dL (13.3 mmol/L) for 2 days in a row. You have been sick or have had a fever for 2 days or longer, and you are not getting better. You have any of the following problems for more than 6 hours: ?You cannot eat or drink. ?You have nausea or vomiting. ?You have diarrhea. Get help right away if: Your blood glucose is lower than 54 mg/dL (3 mmol/L). You become confused, or you have trouble thinking clearly. You have difficulty breathing. You have moderate or large ketone levels in your urine. These symptoms may represent a serious problem that is an emergency. Do not wait to see if the symptoms will go away. Get medical help right away. Call your local emergency services (911 in the [place] Do not drive yourself to the hospital. Summary Monitoring your blood glucose is an important part of managing your diabetes. Blood glucose monitoring involves checking your blood glucose as often as directed and keeping a log or record of your results over time. Your health care provider will set individualized treatment goals for you. Your goals will be basedon your age, other medical conditions you have, and how you respond to diabetes treatment. Every time you check your blood glucose, write down your result. Also, write down any notes about things that may be affecting your blood glucose, such as your diet and exercise for the day. This information is not intended to replace advice given to you by your health care provider. Make sure you discuss any questions you have with your health care provider. Document Revised: 01/21/2021 Document Reviewed: 01/21/2021 [employer] Patient Education 2022 [employer] Follow Up Care 09/23/2022 10:05:20 With:Irasema Love Address: [address] [place] [address], [facility] [place] [address]- When:Within 6 Month(s) Comments:f/u Brian, YAMINI [facility] 06-15-2023 Hospital Discharge instructions Patient Education 10/21/2022 18:49:28 Crohn's Disease Crohn's Disease Crohn's disease is a long-lasting (chronic) disease that affects the gastrointestinal (GI) tract. Crohn's disease often causes irritation and inflammation in the small intestine and the beginning of the large intestine, but it can affect any part of the GI tract. Crohn's disease is part of a group o f illnesses that are known as inflammatory bowel disease (IBD). Crohn's disease may start slowly and get worse over time. Symptoms may come and go. They may also go away for months or even years at a time (remission). What are the causes? The exact cause of this condition is not known. It may involve a response that causes your body's disease-fighting system (immune system) to attack healthy cells and tissues (autoimmune response). Bacteria, genes, and your environment may also play a role. What increases the risk? The following factors may make you more likely to develop this condition: Having a family member who has Crohn's disease, another IBD, or an autoimmune condition. Using products that contain nicotine or tobacco, such as cigarettes and e-cigarettes. Being in your 20s. Having Eastern ancestry. What are the signs or symptoms? The main symptoms of this condition involve your GI tract. These include: Diarrhea. Pain or cramping in the abdomen commonly felt in the lower right side of the abdomen. Frequent watery or bloody stools. Constipation. This may mean having: ?Fewer bowel movements in a week than normal. ?Difficulty having a bowel movement. ?Stools that are dry, hard, or larger than normal. Rectal bleeding or pain. An urgent need to have a bowel movement. The feeling that you are not finished having a bowel movement. Other symptoms may include: Unexplained weight loss. Tiredness (fatigue). Fever. Nausea or appetite loss. Joint pain. Vision changes. Red bumps or sores on the skin. Sores inside the mouth. How is this diagnosed? This condition may be diagnosed based on: Your symptoms and medical history. A physical exam. Tests, which may include: ?Blood tests. ?Stool sample tests. ?Imaging tests, such as X-rays and CT scans. ?Tests to examine the inside of your intestines using a long, flexible tube that has a light and a camera on the end (colonoscopy). ?A procedure to remove tissue samples from inside your bowel for testing (biopsy). You may need to work with a health care provider who specializes in diseases of the digestive tract(press shop supervisor). How is this treated? There is no cure for this condition, and it affects each person differently. Treatment can help youmanage your symptoms. Your treatment may include: Medicines. These may be used by themselves or with other treatments (combination therapy). You may be given medicines that help to: ?Reduce inflammation. ?Control your immune system activity. ?Fight infections. ?Relieve cramps and prevent diarrhea. ?Control your pain. Surgery. You may need surgery if: ?Medicines and other treatments are not working anymore. ?You develop complications from severe Crohn's disease. ?A section of your intestine becomes so damaged that it needs to be removed. Lifestyle changes: ?Maintaining eating or drinking restrictions. ?Reducing or eliminating use of alcohol or nicotine. Follow these instructions at home: Medicines Take ezds-gby-owjfije and prescription medicines only as told by your health care provider. If you were prescribed an antibiotic, take it as told by your health care provider. Do not stop taking the antibiotic even if you start to feel better. Avoid taking ibuprofen or other NSAID medicines if possible. These can make Crohn's disease worse. Eating and drinking Talk with your health care provider or a registered dietitian about what diet is best for you. Drink enough fluid to keep your urine pale yellow. If you are taking steroids to reduce inflammation, get plenty of calcium in your diet to help keep your bones healthy. You may also consider taking a calcium supplement with vitamin D. Keep a food diary to identify foods that make your symptoms better or worse, and avoid foods that cause symptoms. Follow instructions from your health care provider about eating or drinking restrictions if you have worsening symptoms (flare-up). If you drink alcohol: ?Limit how much you have to: ?0 1 drink a day for women who are not . ?0 2 drinks a day for men. ?Know how much alcohol is in a drink. In the [place] one drink equals one 12 oz bottle of beer (355 mL), one 5 oz glass of wine (148 mL), or one 1 oz glass of hard liquor (44 mL). General instructions Make sure you get all the vaccines that your health care provider recommends, especially pneumonia (pneumococcal) and flu (influenza) vaccines. Do not use any products that contain nicotine or tobacco. These products include cigarettes, chewing tobacco, and vaping devices, such as e-cigarettes. If you need help quitting, ask your health careprovider. Exercise every day, or as often as told by your health care provider. Keep all follow-up visits. This is important. Contact a health care provider if: You have diarrhea, cramps in your abdomen, and other GI problems that are present almost all the time. Your symptoms do not improve with treatment, your symptoms get worse, or you develop new symptoms. You cannot pass stools. You continue to lose weight. You develop a rash or sores on your skin. You develop eye problems. You have a fever. Get help right away if: You have bloody diarrhea. You have severe pain in your abdomen. These symptoms may be an emergency. Get help right away. Call 911. Do not wait to see if the symptoms will go away. Do not drive yourself to the hospital. Summary Crohn's disease affects each person differently. The cause of this condition is not known, but it may involve a response that causes your body's immune system to attack healthy cells and tissues. There are multiple treatment options that can help you manage the condition. Talk with your health care provider or a registered dietitian about what diet is best for you. Make sure you get all the vaccines that your health care provider recommends, especially pneumonia (pneumococcal) and flu (influenza) vaccines. Get help right away if you have bloody diarrhea or severe pain in your abdomen. This information is not intended to replace advice given to you by your health care provider. Make sure you discuss any questions you have with your health care provider. Document Revised: 10/29/2021 Document Reviewed: 10/29/2021 [employer] Patient Education 2022 [employer] 10/21/2022 18:49:28 Food Choices to Help Relieve Diarrhea, Adult Food Choices to Help Relieve Diarrhea, Adult Diarrhea can make you feel weak and cause you to become dehydrated. It is important to choose the right foods and drinks to: Relieve diarrhea. Replace lost fluids and nutrients. Prevent dehydration. What are tips for following this plan? Relieving diarrhea Avoid foods that make your diarrhea worse. These may include: ?Foods and beverages sweetened with high-fructose corn syrup, honey, or sweeteners such as xylitol,sorbitol, and mannitol. ?Fried, greasy, or spicy foods. ?Raw fruits and vegetables. Eat foods that are rich in probiotics. These include foods such as yogurt and fermented milk products. Probiotics can help increase healthy bacteria in your stomach and intestines (gastrointestinal tract or GI tract). This may help digestion and stop diarrhea. If you have lactose intolerance, avoid dairy products. These may make your diarrhea worse. Take medicine to help stop diarrhea only as told by your health care provider. Replacing nutrients Eat bland, evfs-uh-bjrbjd foods in small amounts as you are able, until your diarrhea starts to getbetter. These foods include bananas, applesauce, rice, toast, and crackers. Gradually reintroduce nutrient-rich foods as tolerated or as told by your health care provider. This includes: ?Well-cooked protein foods, such as eggs, lean meats like fish or chicken without skin, and tofu. ?Peeled, seeded, and soft-cooked fruits and vegetables. ?Low-fat dairy products. ?Whole grains. Take vitamin and mineral supplements as told by your health care provider. Preventing dehydration Start by sipping water or a solution to prevent dehydration (oral rehydration solution, ORS). This is a drink that helps replace fluids and minerals your body has lost. You can buy an ORS at pharmacies and retail stores. Try to drink at least 8 10 cups (2,000 2,500 mL) of fluid each day to help replace lost fluids. If you have urine that is pale yellow, you are getting enough fluids. You may drink other liquids in addition to water, such as fruit juice that you have added water to (diluted fruit juice) or low-calorie sports drinks, as tolerated or as told by your health care provider. Avoid drinks with caffeine, such as coffee, tea, or soft drinks. Avoid alcohol. Summary When you have diarrhea, it is important to choose the right foods and drinks to relieve diarrhea, to replace lost fluids and nutrients, and to prevent dehydration. Make sure you drink enough fluid to keep your urine pale yellow. You may benefit from eating bland foods at first. Gradually reintroduce healthy, nutrient-rich foods as tolerated or as told by your health care provider. Avoid foods that make your diarrhea worse, such as fried, greasy, or spicy foods. This information is not intended to replace advice given to you by your health care provider. Make sure you discuss any questions you have with your health care provider. Document Revised: 06/10/2020 Document Reviewed: 06/10/2020 [employer] Patient Education 2022 [employer]. 10/21/2022 18:49:28 Diarrhea, Adult, Gqht-iv-Iezv Diarrhea, Adult Diarrhea is when you pass loose and watery poop (stool) often. Diarrhea can make you feel weak and cause you to lose water in your body (get dehydrated). Losing water in your body can cause you to: Feel tired and thirsty. Have a dry mouth. Go pee (urinate) less often. Diarrhea often lasts 2 3 days. However, it can last longer if it is a sign of something more serious. It is important to treat your diarrhea as told by your doctor. Follow these instructions at home: Eating and drinking Follow these instructions as told by your doctor: Take an ORS (oral rehydration solution). This is a drink that helps you replace fluids and mineralsyour body lost. It is sold at pharmacies and stores. Drink plenty of fluids, such as: ?Water. ?Ice chips. ?Diluted fruit juice. ?Low-calorie sports drinks. ?Milk, if you want. Avoid drinking fluids that have a lot of sugar or caffeine in them. Eat bland, ccgl-vx-uzblsx foods in small amounts as you are able. These foods include: ?Bananas. ?Applesauce. ?Rice. ?Low-fat (lean) meats. ?[place]. ?Crackers. Avoid alcohol. Avoid spicy or fatty foods. Medicines Take zebg-brv-hksysen and prescription medicines only as told by your doctor. If you were prescribed an antibiotic medicine, take it as told by your doctor. Do not stop using the antibiotic even if you start to feel better. General instructions Wash your hands often using soap and water. If soap and water are not available, use a hand coremaker apprentice. Others in your home should wash their hands as well. Hands should be washed: ?After using the toilet or changing a diaper. ?Before preparing, cooking, or serving food. ?While caring for a sick person. ?While visiting someone in a hospital. Drink enough fluid to keep your pee (urine) pale yellow. Rest at home while you get better. Take a warm bath to help with any burning or pain from having diarrhea. Watch your condition for any changes. Keep all follow-up visits as told by your doctor. This is important. Contact a doctor if: You have a fever. Your diarrhea gets worse. You have new symptoms. You cannot keep fluids down. You feel light-headed or dizzy. You have a headache. You have muscle cramps. Get help right away if: You have chest pain. You feel very weak or you pass out (faint). You have bloody or black poop or poop that looks like tar. You have very bad pain, cramping, or bloating in your belly (abdomen). You have trouble breathing or you are breathing very quickly. Your heart is beating very quickly. Your skin feels cold and clammy. You feel confused. You have signs of losing too much water in your body, such as: ?Dark pee, very little pee, or no pee. ?Cracked lips. ?Dry mouth. ?Sunken eyes. ?Sleepiness. ?Weakness. Summary Diarrhea is when you pass loose and watery poop (stool) often. Diarrhea can make you feel weak and cause you to lose water in your body (get dehydrated). Take an ORS (oral rehydration solution). This is a drink that is sold at pharmacies and stores. Eat bland, onxr-fr-ntfmiq foods in small amounts as you are able. Contact a doctor if your condition gets worse. Get help right away if you have signs that you have lost too much water in your body. This information is not intended to replace advice given to you by your health care provider. Make sure you discuss any questions you have with your health care provider. Document Revised: 11/04/2021 Document Reviewed: 11/04/2021 [employer] Patient Education 2022 [employer]. Follow Up Care 10/21/2022 15:51:19 With:SAUD BLUM Address: [address] [place] [address] Business (1) When:Within 3 Day(s) [facility]06-15-2023 Evaluation + Plan noteExtracted from: Title:ED Note Author:Roshan Briceno MD Date: 1. Abdominal pain (R10.9: Un specified abdominal pain) 2. Diarrhea (R19.7: Diarrhea, unspecified) Orders: dicyclomine, 20 mg = 2 mL, Injection, IntraMuscular, QID, STAT, Start date 10/21/22 16:36:00 EDT, 10/21/22 16:36:00 EDT ondansetron, 4 mg = 2 mL, Injection, IntraMuscular, Once, Stop date 10/21/22 16:36:00 EDT, STAT, Start date 10/21/22 16:36:00 EDT, 10/21/22 16:36:00 EDT ondansetron, 4 mg = 2 mL, Injection, IV, Once, Stop date 10/21/22 16:43:00 EDT, Start date 10/21/22 16:43:00 EDT Sodium Chloride 0.9% intravenous solution, 1,000 mL, Soln-IV, IV, Once, Stop date 10/21/22 16:36:00 EDT, STAT, Start date 10/21/22 16:36:00 EDT, Infuse over 61, minute(s) Automated Diff Basic Metabolic Panel Beta hCG Qual C-Reactive Protein CBC w/ Auto Diff Clostridium Difficile PCR Comprehensive Metabolic Panel eGFR Enteric Panel by PCR Fecal WBC Lactoferrin Hepatic Function Panel Lipase Level Sedimentation Rate Automated UA With Cult Reflex Future Appointments Appointment Date:12/21/2022 01:00:00 PM Scheduled Provider:Irasema Love Location:[facility] Appointment Type: Open Appointment Date:09/22/2023 09:30:00 AM Scheduled Provider: Location:[facility] Appointment Type:FM Medicare Wellness Subsequent Future Scheduled Tests Laboratory* TIBC Calculated 12/29/21 * CBC w/ Auto Diff 12/29/21 * Ferritin 12/29/21 * Iron Level 12/29/21 * Reticulocyte Count 12/29/21 [facility]05-08-2023 Miscellaneous Notes* [facility] 8:55 AM EDT Smoking Cessation Navigation Outcome of contact: Left Message Comments: A voicemail has been left for this patient regarding Tobacco Cessation support options. If this patient has any further questions they can email us at [email or web address] or call us at [phone]. eHealth Test Director/Smoking Cessation Navigator: Maricruz Garza, [facility] ED Electronically signed by Maricruz Garza, [facility] ED at 09/13/2022 8:56 AM EDT documented in this [facility] History of Present illness Narrative* Susan Garcia, PhD - 09/10/2022 2:13 PM EDT Alma Delia Pearl [id number] September 10, 2022 [facility] Bariatric and Metabolic [place] [facility] M61 Psychology Orientation/ Welcome Group CPT: NO CHARGE (informational seminar/no treatment provided) 1:00-2:00pm Psychology Orientation Seminar Patients attended an informational seminar as their first step in the BMI program. Patients provided verbal consent related to the use of virtual visits and were reminded of the limits of confidentiality. Provided basic information about bariatric surgery procedures, benefits, lifestyle changes needed, and psychological risks. Patients were oriented to the multidisciplinary process, role of psychology in the bariatric program, and various behavioral health services provided. Reviewed psychosocial adjustment issues common after surgery, and how such problems can be prevented with pre- and post-op care. Also discussed risks of alcohol, nicotine, and marijuana after surgery and reviewed requirements for cessation and toxicology screenings. Patients were encouraged to seek or intensify mentalhealth treatment if needed, and provided with resources to find mental health care. Lastly, brieflyreviewed benefits of food diaries and encouraged patients to begin identifying barriers to weight ma nagement by tracking intake. Orders for referrals and toxicology screens were placed if requested by the patient. Following the session, patients were provided with a copy of the presentation slides,a list of recommended readings including a link to the BMI manual, and a mental health documentation form to give to mental health providers, if applicable. Orders placed by patient request: [facility] Nicotine screens Toxicology screens Plan: Patient to be scheduled for an individual psychology consultation visit. Susan Garcia, Ph.D. Psychologist documented in this encounterS[facility]04-[facility] Evaluation note* Encounter Date Diagnosis Assessment Notes Treatment Notes Treatment Clinical Notes Aug, GERD (gastroesophageal reflux disease) (ICD-10 - K21.9) The patient reports good control but does endorse utilizing Pepcid for rare breakthrough and would like a prescription sent in for Pepcid. Patient currently taking omeprazole twice daily as well. Patient also utilizing peppermint oil and this is helpful for her dyspeptic complaints Aug, Generalized abdominal pain (ICD-10 - R10.84) Patient reports utilizing dicyclomine from a previous ER visit this is helpful for this patient's indigestion and abdominal pain. Patient also utilizes peppermint oil and this has been helpful as well. [facility] Other 03-16-2023 Miscellaneous Notes* Telephone Encounter - Kimberly Velazquez MD - 07/22/2022 11:53 AM EDT Increase mounjaro to 5mg/week documented in this encounterShelby [facility]02-[facility] History of Present illness Narrative* Palmira Abbasi MD - 06/24/2022 10:30 AM EST Images from the original note were not included. ENDOCRINE DIABETES EVALUATION Virtual Follow up Visit Patient Name: Alma Delia Pearl Date: 06/24/2022 LV: March 31, 2022 2:28 PM Reason for follow up: Diabetes PCP is MI[place] [place] [address] SUBJECTIVE HPI: Alma Delia Pearl is a 37 year old female who presents as a follow up for diabetes, obesity, PCOS. Had a bad burning sensation in her stomach, wnt to the ED got pepcid, bentyl, and sulfa? Yesterday had sensations of this again and took pepto bismal and it was ok Doing BRAT diet Wants to do pepcid continuously Having spotting every 2 weeks, otherwise hadn't had a period since last May Date diagnosed: 05/2021, asymptomatic but monitoring with suspected PCOS Most recent A1c: Hemoglobin A1C (POCT) (%) Date Value 03/31/2022 6.0 11/24/21: 6.3% 08/28: 6.7% Current glycemic regimen: Mounjaro -- started at 2.5mg/wk, increased in May to 5mg but did not tolerate and now back at 2.5 mg/week Prior discontinued glycemic medications: Ozempic 0.5 mg->1mg/week but did not tolerate - GI issues - diarrhea, stomach cramps, nausea/vomiting of undigested food, GIB? With anemia? Went to the ED multiple times. Stopped <1 mo ago on 03/03. Did not lose weight with it she was so frustrated Did not tolerate metformin 500 mg daily and had bad diarrhea She was on steroids previously for asthma and Crohn's. Steroid dose was 10- or 14-day packs used [id number] and 2019. Nothing significant in the past year. 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 Eating small meals Weight: 297 lbs -> 305 lbs Target weight: 170 lbs - 2003 was last time there - multiple pregnancies but no living children For weight loss has tried ozempic, phentermine?, lifestyle changes Referred to bariatrics and PCOS weight management at last visit but has not seen either. Diagnosed with PCOS at age 17 Irregular menses - since May has not had a period, averages 2-3 periods a year Had some exploratory surgery for endometriosis at age 18 - the doctor has since been disbarred so she is unsure what actually happened Last time T was checked it was normal? Has the ovarian cysts on US Also with hirsutism of face. 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 Intolerant of control - has loloestrin, floyd, most name brand ones has tried mirena and nuvaring Has not tried depoprovera Likes progesterone based ones Gets depressed and anxious Has never had aura with migraine but has continuous migraine (IIH?) She has an ob-gyne close to home - not currently on anything Was just prescribed spironolactone from derm for HS DM Complications: None Diabetes-related health maintenance: Last eye exam September Last podiatry visit none REVIEW OF SYSTEMS General: No weight loss, malaise or fevers Cardiac: No chest pain, dyspnea, palpitations, edema, or orthopnea Pulmonary:Negative for cough, wheezing, or shortness of breath GI: No nausea, vomiting, diarrhea, constipation, or GI bleeding :No dysuria, frequency, polydipsia, polyuria, or nocturia Skin: No rash or cellulitis Feet: No calluses, foot deformity including partial or complete amputation of the foot, ulceration,or peripheral neuropathy Musculoskeletal: No joint pain, stiffness, or swelling Nervous system: No numbness, weakness, or dizziness MEDICAL HISTORY: PAST MEDICAL HISTORY Diagnosis Date Abdominal pain, generalized Anxiety and depression Anxiety disorder in conditions classified elsewhere has panic attacks. Arthritis Bipolar 1 disorder (HCC) BMI 40.0-44.9, adult (HCC) Crohn's disease (HCC) 2008 in [place] Depressive disorder, not elsewhere classified cymbalta Endometriosis, site unspecified DIAGNOSED IN 2003 Fibromyalgia Former smoker GERD (gastroesophageal reflux disease) Hemorrhage of gastrointestinal tract, unspecified rectal bleeding Irritable bowel syndrome On Bentyl and Phenergan, crohn's DX Migraines Morbid obesity (HCC) Other forms of migraine Uses Excedrin PRN. PCOS (polycystic ovarian syndrome) Pneumonia Unspecified asthma(493.90) PRN Albuterol SURGICAL HISTORY: PAST SURGICAL HISTORY Procedure Laterality Date LAPS ABD PRTM&OMENTUM DX W/WO SPEC BR/WA SPX 03/[address] [place] [address] Dae Reynolds. endometriosis, lasered. Stage??, PCOS ovaries LAPS ABD PRTM&OMENTUM DX W/WO SPEC BR/WA SPX 08/05/2008 Dr. Natalie Yanez. Operation: Diagnostic laparoscopy (hx. chronic pelvic pain. PAST SURGICAL HISTORY OF 05/12 laser surgery endometrosis TONSILLECTOMY PRIMARY/SECONDARY <AGE 12 Tonsillectomy FAMILY HISTORY: Family History Problem Relation Age of Onset Cancer Mother ovarian and cervical Diabetes Mother Cancer Maternal Grandmother ovarian and cervical Diabetes Maternal Grandmother Coronary Artery Disease Maternal Grandmother Heart Maternal Aunt Hypertension Maternal Aunt Coronary Artery Disease Paternal Grandfather Hypertension Maternal Grandfather SOCIAL HISTORY: Social History Tobacco Use Smoking status: Former Packs/day: 0.50 Years: 1.00 Pack years: 0.50 Types: Cigarettes Quit date: 05/09/2006 Years since quittin.1 Smokeless tobacco: Never Tobacco comments: PATIENT SMOKED 4-5 CIGARETTES DAILY BEFORE QUITTING Vaping Use Vaping Use: Never used Substance Use Topics Alcohol use: No Drug use: No Current Medications Current Medications 06/24/2022 DIABETES THERAPIES Medication Dosage Pharm Subclass tirzepatide (MOUNJARO) 2.5 mg/0.5 mL pen injector Inject 2.5 mg subcutaneously one time a week. Antihyperglycemic - Dual GIP and GLP-1 Receptor Agonists CARDIOVASCULAR Medication Dosage Pharm Subclass verapamil (CALAN, ISOPTIN) 120 mg tablet Take 120 mg by mouth once daily. Antiarrhythmic - Class IV OTHER Medication Dosage Pharm Subclass ADVAIR HFA 230-21 mcg/actuation inhaler INHALE 2 PUFFS BY MOUTH TWICE DAILY DIRECTED Asthma/COPDTherapy - Beta Adrenergic-Glucocorticoid Combinations albuterol 90 mcg/Actuation INHALATION Aero as necessary for asthma Asthma/COPD Therapy - Beta 2-Adrenergic Agents, Inhaled, Short Acting brexpiprazole (REXULTI) 2 mg tablet Antipsychotic-Atypical,D2 Receptor Partial Agonist-5HT Serotonin Mixed buspirone HCl (BUSPAR ORAL) Antianxiety Agent - Non-Benzodiazepine dicyclomine (BENTYL) 20 mg tablet Take 20 mg by mouth as needed. GI Antispasmodic - Synthetic Tertiary Amines EPINEPHrine (EPIPEN) 0.3 mg/0.3 mL auto-injector Use as directed. Cardiovascular Sympathomimetic - Anaphylaxis Therapy Single Agents fluticasone (FLONASE) 50 mcg/actuation nasal spray SHAKE LIQUID AND USE 2 SPRAYS IN EACH NOSTRIL EVERY DAY Nasal Corticosteroids hydrOXYzine pamoate (VISTARIL) 25 mg capsule TAKE 1 CAPSULE BY MOUTH EVERY DAY AT BEDTIME NEEDEDAntianxiety Agent - Antihistamine Type Mesalamine (PENTASA) 500 mg CR capsule Take 1 capsule by mouth four times daily. Inflammatory BowelAgent - Aminosalicylates and Related Agents montelukast (SINGULAIR) 10 mg tablet Take 1 tablet by mouth daily at bedtime. Asthma Therapy - Leukotriene Receptor Antagonists omeprazole (PRILOSEC) 40 mg capsule Take 40 mg by mouth once daily. Gastric Acid Secretion Television Schedule Coordinator - Proton Pump Inhibitors (PPIs) ondansetron (ZOFRAN) 4 mg tablet Take 4 mg by mouth. Antiemetic - Selective Serotonin 5-HT3 Antagonists Pregabalin (LYRICA) 200 mg capsule Take 1 capsule by mouth three times daily for 180 days. Anticonvulsant - SHAYY Analogs Trazodone too PHYSICAL EXAMINATION: Virtual appointment Breathing comfortably on room air In no acute distress LABS: Hemoglobin A1C (POCT) (%) Date Value 03/31/2022 6.0 ) No components found for: URINEALBUMIN Creatinine Date Value Ref Range Status 07/11/2019 0.84 0.58 - 0.96 mg/dL Final Cholesterol, Total (mg/dL) Date Value 04/30/2009 239 HDL Cholesterol (mg/dL) Date Value 04/30/2009 43 LDL Cholesterol (mg/dL) Date Value 04/30/2009 147 Triglyceride (mg/dL) Date Value 04/30/2009 246 TSH Date Value Ref Range Status 12/23/2009 1.960 0.400 - 5.500 uU/mL Final No results found for: FREET4 ASSESSMENT & PLAN Alma Delia Pearl is a 37 year old female who presents for management of diabetes, specifically diabetes mellitus type 2, diet-controlled. Also with class III obesity (BMI 43.8), PCOS Our focus has been addressing her weight, as it contributes to both her diabetes and PCOS. Discussed lifestyle interventions. For medications, we are somewhat limited, she does not want to be on ozempic or metformin, has trialed phentermine before and she is on several psych meds which are working against her (but her history of depression, anxiety, bipolar limit her ability to take many of the medications). We started mounjaro for which she has been on 3 months At last visit also recommend/referred for bariatric surgery and PCOS weight loss clinic Mounjaro we will increase to 5mg/week after she has been on famotidine consistently for 2 weeks For DM, she is diet-controlled. HgA1c currently 6.0%- repeat now Management of blood sugars: -Monitor sugar only as needed for symptoms -Continue current glycemic regimen: diet-controlled, mounjaro -No known complications at this time -Diet and exercise is encouraged For PCOS, she is intolerant of OCPs and should continue to follow with OB/gyne Could consider medroxyprogesterone injectible in future For HS and hirsutism is trying aldactone with derm Not sexually active Patient is to continue to follow up with her PCP and with other consultants regarding other medicalproblems. Follow up in 3 mos. I spent a total of 40 minutes on the date of the service which included preparing to see the patient, ypqy-iq-sclc patient care, completing clinical documentation, obtaining and/or reviewing separately obtained history, performing a medically appropriate examination, and counseling and educating the patient/family/caregiver. Kimberly Velazquez MD PGY-5 Endocrinology and Metabolism [place] Seen with attending, Dr. Abbasi STAFF PHYSICIAN NOTE OF PERSONAL INVOLVEMENT IN CARE I personally interviewed the patient, I reviewed the progress note obtained and documented by the fellow and I personally participated in the sutton components. I have discussed the case and management of the patient's care. The following comments revise or confirm relevant sutton components of their note. IMPRESSION/PLAN: Obesity/BMI 43 PCOS T2DM Update A1c Increase Mounjaro to 5 mg weekly in 2 weeks Follow up with bariatrics Recommended patient to see GI since she has ongoing GI issues prior to starting Mounjaro I have reviewed and edited the fellow`s note above and I agree with the plan in the note above. SIGNATURE:Palmira Abbasi MD 06/24/22 documented in this encounterS[facility] Miscellaneous Notes* Telephone Encounter - Emily Haynes MA - 06/21/2022 11:53 AM EST I called the patient to prescreen prior to 06/24/22 virtual visit, but patient did not answer the phone. I left a message on patient's voicemail stating their appointment is on 06/24/22 at 10:30am, so they should log in to appointment 10-15 minutes before appointment time.Also stated to please reviewallergies and medications on mychart to ensure they are correct. I also left the message for the patient to include 7-14 days worth of blood sugar readings and to upload them on her mychart. Emily Haynes MA documented in this encounterS[facility]01-[facility]-2023 Miscellaneous Notes* Telephone Encounter - Kimberly Velazquez MD - 05/27/2022 12:58 PM EST Mounjaro lower dose prescribed documented in this encounterS[facility]01-[facility]23 Evaluation + Plan note Extracted from: Title:ED Note Author:Nubia Vargas, Judith Roa te:05/23/22 1. Abdominal pain (R10.9: Un specified abdominal pain) 2. Vomiting and diarrhea (R11.10: Vomiting, unspecified) Diarrhea, unspecified (R19.7: Diarrhea, unspecified) Orders: Al hydroxide/Mg hydroxide/simethicone, 30 mL, Susp-Oral, Oral, Once, Stop date 05/23/22 7:22:00 EST, STAT, Start date 05/23/22 7:22:00 EST atropine/hyoscyamine/PB/scopolamine, 10 mL, Elixir, Oral, Once, Stop date 05/23/22 7:22:00 EST, STAT, Start date 05/23/22 7:22:00 EST famotidine, 20 mg = 2 mL, Soln-IV, IV Push, Once, Stop date 05/23/22 7:17:00 EST, STAT, Start date 05/23/22 7:17:00 EST, 05/23/22 7:17:00 EST lidocaine topical, 200 mg, 10 mL, Soln-Oral, Oral, Once, Stop date 05/23/22 7:22:00 EST, STAT, Start date 05/23/22 7:22:00 EST ondansetron, 4 mg = 2 mL, Injection, IV Push, Once, Stop date 05/23/22 7:17:00 EST, STAT, Start date 05/23/22 7:17:00 EST, 05/23/22 7:17:00 EST Sodium Chloride 0.9% intravenous solution, 1,000 mL, Soln-IV, IV, Once, Stop date 05/23/22 7:17:00 EST, STAT, Start date 05/23/22 7:17:00 EST, Infuse over 61, minute(s) Sodium Chloride 0.9% intravenous solution, Soln-IV, Misc, Once, Stop date 05/23/22 7:20:13 EST, Physician Stop, 05/23/22 7:20:13 EST Automated Diff Basic Metabolic Panel CBC w/ Auto Diff CT Abdomen/Pelvis w/ Contrast eGFR Hepatic Function Panel Lipase Level UA With Cult Reflex Future Appointments Appointment Date:09/23/2022 09:30:00 AM Scheduled Provider: Location:[facility] [place] [employer] Appointment Type:FM Medicare Wellness Subsequent Future Scheduled Tests Laboratory* TIBC Calculated 12/29/21 * CBC w/ Auto Diff 12/29/21 * Ferritin 12/29/21 * Iron Level 12/29/21 * Reticulocyte Count 12/29/21 [facility]01-15-2023 Hospital Discharge instructions Patient Education 05/23/2022 10:02:03 Diarrhea, Adult Diarrhea, Adult Diarrhea is frequent loose and watery bowel movements. Diarrhea can make you feel weak and cause you to become dehydrated. Dehydration can make you tired and thirsty, cause you to have a dry mouth, and decrease how often you urinate. Diarrhea typically lasts 2 3 days. However, it can last longer if it is a sign of something more serious. It is important to treat your diarrhea as told by your health care provider. Follow these instructions at home: Eating and drinking Follow these recommendations as told by your health care provider: Take an oral rehydration solution (ORS). This is an acij-cuv-mpwkagb medicine that helps return your body to its normal balance of nutrients and water. It is found at pharmacies and retail stores. Drink plenty of fluids, such as water, ice chips, diluted fruit juice, and low- calorie sports drinks. You can drink milk also, if desired. Avoid drinking fluids that contain a lot of sugar or caffeine, such as energy drinks, sports drinks, and soda. Eat bland, ucsp-pr-twvhhh foods in small amounts as you are able. These foods include bananas, applesauce, rice, lean meats, toast, and crackers. Avoid alcohol. Avoid spicy or fatty foods. Medicines Take qwpy-ell-tdnwiht and prescription medicines only as told by your health care provider. If you were prescribed an antibiotic medicine, take it as told by your health care provider. Do notstop using the antibiotic even if you start to feel better. General instructions Wash your hands often using soap and water. If soap and water are not available, use a hand coremaker apprentice. Others in the household should wash their hands as well. Hands should be washed: ?After using the toilet or changing a diaper. ?Before preparing, cooking, or serving food. ?While caring for a sick person or while visiting someone in a hospital. Drink enough fluid to keep your urine pale yellow. Rest at home while you recover. Watch your condition for any changes. Take a warm bath to relieve any burning or pain from frequent diarrhea episodes. Keep all follow-up visits as told by your health care provider. This is important. Contact a health care provider if: You have a fever. Your diarrhea gets worse. You have new symptoms. You cannot keep fluids down. You feel light-headed or dizzy. You have a headache. You have muscle cramps. Get help right away if: You have chest pain. You feel extremely weak or you faint. You have bloody or black stools or stools that look like tar. You have severe pain, cramping, or bloating in your abdomen. You have trouble breathing or you are breathing very quickly. Your heart is beating very quickly. Your skin feels cold and clammy. You feel confused. You have signs of dehydration, such as: ?Dark urine, very little urine, or no urine. ?Cracked lips. ?Dry mouth. ?Sunken eyes. ?Sleepiness. ?Weakness. Summary Diarrhea is frequent loose and watery bowel movements. Diarrhea can make you feel weak and cause you to become dehydrated. Drink enough fluids to keep your urine pale yellow. Make sure that you wash your hands after using the toilet. If soap and water are not available, usehand coremaker apprentice. Contact a health care provider if your diarrhea gets worse or you have new symptoms. Get help right away if you have signs of dehydration. This information is not intended to replace advice given to you by your health care provider. Make sure you discuss any questions you have with your health care provider. Document Released: 04/15/2003 Document Revised: 09/11/2019 Document Reviewed: 09/29/2018 [employer] Patient Education 2020 [employer]. 05/23/2022 10:02:03 Nausea and Vomiting, Adult Nausea and Vomiting, Adult Nausea is the feeling that you have an upset stomach or that you are about to vomit. Vomiting is when stomach contents are thrown up and out of the mouth as a result of nausea. Vomiting can make you feel weak and cause you to become dehydrated. Dehydration can make you feel tired and thirsty, cause you to have a dry mouth, and decrease how often you urinate. Older adults and people with other diseases or a weak disease-fighting system (immune system) are at higher risk for dehydration. It is important to treat your nausea and vomiting as told by your health care provider. Follow these instructions at home: Watch your symptoms for any changes. Tell your health care provider about them. Follow these instructions to care for yourself at home. Eating and drinking Take an oral rehydration solution (ORS). This is a drink that is sold at pharmacies and retail stores. Drink clear fluids slowly and in small amounts as you are able. Clear fluids include water, ice chips, low-calorie sports drinks, and fruit juice that has water added (diluted fruit juice). Eat bland, quih-rc-zqbvnc foods in small amounts as you are able. These foods include bananas, applesauce, rice, lean meats, toast, and crackers. Avoid fluids that contain a lot of sugar or caffeine, such as energy drinks, sports drinks, and soda. Avoid alcohol. Avoid spicy or fatty foods. General instructions Take aior-ypw-dwgbtza and prescription medicines only as told by your health care provider. Drink enough fluid to keep your urine pale yellow. Wash your hands often using soap and water. If soap and water are not available, use hand coremaker apprentice. Make sure that all people in your household wash their hands well and often. Rest at home while you recover. Watch your condition for any changes. Breathe slowly and deeply when you feel nauseated. Keep all follow-up visits as told by your health care provider. This is important. Contact a health care provider if: Your symptoms get worse. You have new symptoms. You have a fever. You cannot drink fluids without vomiting. Your nausea does not go away after 2 days. You feel light-headed or dizzy. You have a headache. You have muscle cramps. You have a rash. You have pain while urinating. Get help right away if: You have pain in your chest, neck, arm, or jaw. You feel extremely weak or you faint. You have persistent vomiting. You have vomit that is bright red or looks like black coffee grounds. You have bloody or black stools or stools that look like tar. You have a severe headache, a stiff neck, or both. You have severe pain, cramping, or bloating in your abdomen. You have difficulty breathing, or you are breathing very quickly. Your heart is beating very quickly. Your skin feels cold and clammy. You feel confused. You have signs of dehydration, such as: ?Dark urine, very little urine, or no urine. ?Cracked lips. ?Dry mouth. ?Sunken eyes. ?Sleepiness. ?Weakness. These symptoms may represent a serious problem that is an emergency. Do not wait to see if the symptoms will go away. Get medical help right away. Call your local emergency services (911 in the [place] Do not drive yourself to the hospital. Summary Nausea is the feeling that you have an upset stomach or that you are about to vomit. As nausea getsworse, it can lead to vomiting. Vomiting can make you feel weak and cause you to become dehydrated. Follow instructions from your health care provider about eating and drinking to prevent dehydration. Take wsco-mdq-rarqven and prescription medicines only as told by your health care provider. Contact your health care provider if your symptoms get worse, or you have new symptoms. Keep all follow-up visits as told by your health care provider. This is important. This information is not intended to replace advice given to you by your health care provider. Make sure you discuss any questions you have with your health care provider. Document Released: 04/25/2006 Document Revised: 08/17/2019 Document Reviewed: 10/03/2018 [employer] Patient Education 2020 FlowJob. 05/23/2022 10:02:03 Abdominal Pain, Adult Abdominal Pain, Adult Pain in the abdomen (abdominal pain) can be caused by many things. Often, abdominal pain is not serious and it gets better with no treatment or by being treated at home. However, sometimes abdominal pain is serious. Your health care provider will ask questions about your medical history and do a physical exam to try to determine the cause of your abdominal pain. Follow these instructions at home: Medicines Take lcdn-vbt-dxxffgd and prescription medicines only as told by your health care provider. Do not take a laxative unless told by your health care provider. General instructions Watch your condition for any changes. Drink enough fluid to keep your urine pale yellow. Keep all follow-up visits as told by your health care provider. This is important. Contact a health care provider if: Your abdominal pain changes or gets worse. You are not hungry or you lose weight without trying. You are constipated or have diarrhea for more than 2 3 days. You have pain when you urinate or have a bowel movement. Your abdominal pain wakes you up at night. Your pain gets worse with meals, after eating, or with certain foods. You are vomiting and cannot keep anything down. You have a fever. You have blood in your urine. Get help right away if: Your pain does not go away as soon as your health care provider told you to expect. You cannot stop vomiting. Your pain is only in areas of the abdomen, such as the right side or the left lower portion of the abdomen. Pain on the right side could be caused by appendicitis. You have bloody or black stools, or stools that look like tar. You have severe pain, cramping, or bloating in your abdomen. You have signs of dehydration, such as: ?Dark urine, very little urine, or no urine. ?Cracked lips. ?Dry mouth. ?Sunken eyes. ?Sleepiness. ?Weakness. You have trouble breathing or chest pain. Summary Often, abdominal pain is not serious and it gets better with no treatment or by being treated at home. However, sometimes abdominal pain is serious. Watch your condition for any changes. Take ahtp-yhk-ujzpydt and prescription medicines only as told by your health care provider. Contact a health care provider if your abdominal pain changes or gets worse. Get help right away if you have severe pain, cramping, or bloating in your abdomen. This information is not intended to replace advice given to you by your health care provider. Make sure you discuss any questions you have with your health care provider. Document Released: 02/02/2006 Document Revised: 09/03/2019 Document Reviewed: 09/03/2019 [employer] Patient Education 2019 [employer]Job. Follow Up Care 05/23/2022 06:50:20 With:NERISSA RIVERA Address: [address] [place] [id number] [phone] Business (1) When:05/26/2022 09:55:53 Comments:Make sure to fill the prescriptions that was prescribed last night. Return to the emergency room ifyour pain recurs, vomiting recurs or any new symptoms. [facility]01-03-2023 Miscellaneous Notes* Telephone Encounter - Kimberly Velazquez MD - 05/11/2022 4:00 PM EST Increase mounjaro to 5mg/week per patient request documented [facility]11[facility]22 Instructions* Patient Instructions* Kimberly Velazquez MD - 03/31/2022 2:16 PM EST [email or web address] Thank you for choosing the [facility] Department of Endocrinology, Diabetes and Metabolism. Did you know that you need to call 48 hours in advance of your scheduled visit, if you are unable to make your appointment? The Endocrinology and Metabolism [place] thanks you for your commitment, because patients not showing to their appointment results in a lost opportunity for patients to receive [facility] health care at the [facility]. To Cancel an appointment, please choose one of the following: - Call the Appointment Call Center at [phone] - From [employer], Go to Appointments - Cancel Appts If cancelling, consider your need to reschedule to prevent further delays in your care. To Schedule an appointment, please choose one of the following: - Call the Appointment Call Center at [phone] - From [employer], Go to Appointments - Request an Appt documented in this encounterS[facility]by [facility]11-23-2022 History of Present illness Narrative* Jackson Hall MD - 03/31/2022 2:00 PM EST Images from the original note were not included. ENDOCRINE DIABETES EVALUATION Patient Name: Alma Delia Pearl Date: March 31, 2022 2:28 PM Patient arrived 25 minutes late to her 60 minute appointment Reason for consult: Diabetes Requesting Physician: No referring provider defined for this encounter. PCP is MIAN Kolb PA [address] [place] [address] SUBJECTIVE HPI: Alma Delia Pearl is a 36 year old female who presents as an evaluation for diabetes, obesity, PCOS. Date diagnosed: 9 mos ago, asymptomatic but monitoring with suspected PCOS Most recent A1c: Hemoglobin A1C (POCT) (%) Date Value 03/31/2022 6.0 TODAY: 6.0% 11/24/21: 6.3% 08/28: 6.7% Current glycemic regimen: Trulicity but hasn't started Prior discontinued glycemic medications: Ozempic 0.5 mg->1mg/week but did not tolerate - GI issues - diarrhea, stomach cramps, nausea/vomiting of undigested food, GIB? With anemia? Went to the ED multiple times. Stopped <1 mo ago on 03/03. Did not lose weight with it she was so frustrated Did not tolerate metformin 500 mg daily and had bad diarrhea She was on steroids previously for asthma and Crohn's. Steroid dose was 10- or 14-day packs used [id number] and 2019. Nothing significant in the past year. 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 Barrier to exercise is spinal stenosis Diet: The patient's current diet is low carb and lean meat, more fruits/veggies Has met with a rotary lithographic press operator close to home - told she does not eat enough but with binging habits - she states she has since overcome any binge tendencies Weight: 297 lbs Target weight: 170 lbs - 2003 was last time there - multiple pregnancies but no living children For weight loss has tried ozempic, phentermine?, lifestyle changes No weight gain recently, no weight loss with any of the above Diagnosed with PCOS at age 17 Irregular menses - since May has not had a period, averages 2-3 periods a year Had some exploratory surgery for endometriosis at age 18 - the doctor has since been disbarred so she is unsure what actually happened Last time T was checked it was normal? Has the ovarian cysts on US Also with hirsutism of face. 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 Intolerant of control - has loloestrin, floyd, most name brand ones has tried mirena and nuvaring Has not tried depoprovera Likes progesterone based ones Gets depressed and anxious Has never had aura with migraine but has continuous migraine (IIH?) She has an ob-gyne close to home - not currently on anything Was just prescribed spironolactone from derm for HS DM Complications: None Diabetes-related health maintenance: Last eye exam September Last podiatry visit none REVIEW OF SYSTEMS General: No weight loss, malaise or fevers Cardiac: No chest pain, dyspnea, palpitations, edema, or orthopnea Pulmonary:Negative for cough, wheezing, or shortness of breath GI: No nausea, vomiting, diarrhea, constipation, or GI bleeding :No dysuria, frequency, polydipsia, polyuria, or nocturia Skin: No rash or cellulitis Feet: No calluses, foot deformity including partial or complete amputation of the foot, ulceration,or peripheral neuropathy Musculoskeletal: No joint pain, stiffness, or swelling Nervous system: No numbness, weakness, or dizziness MEDICAL HISTORY: PAST MEDICAL HISTORY Diagnosis Date Abdominal pain, generalized Anxiety and depression Anxiety disorder in conditions classified elsewhere has panic attacks. Arthritis Bipolar 1 disorder ([facility]) BMI 40.0-44.9, adult ([facility]) Crohn's disease ([facility]) 2008 in [place] Depressive disorder, not elsewhere classified cymbalta Endometriosis, site unspecified DIAGNOSED IN 2003 Fibromyalgia Former smoker GERD (gastroesophageal reflux disease) Hemorrhage of gastrointestinal tract, unspecified rectal bleeding Irritable bowel syndrome On Bentyl and Phenergan, crohn's DX Migraines Morbid obesity (HCC) Other forms of migraine Uses Excedrin PRN. PCOS (polycystic ovarian syndrome) Pneumonia Unspecified asthma(493.90) PRN Albuterol SURGICAL HISTORY: PAST SURGICAL HISTORY Procedure Laterality Date LAPS ABD PRTM&OMENTUM DX W/WO SPEC BR/WA SPX 03/[address] [place] [address] Dea Reynolds. endometriosis, lasered. Stage??, PCOS ovaries LAPS ABD PRTM&OMENTUM DX W/WO SPEC BR/WA SPX 08/05/2008 Dr. Natalie Yanez. Operation: Diagnostic laparoscopy (hx. chronic pelvic pain. PAST SURGICAL HISTORY OF 05/12 laser surgery endometrosis TONSILLECTOMY PRIMARY/SECONDARY <AGE 12 Tonsillectomy FAMILY HISTORY: Family History Problem Relation Age of Onset Cancer Mother ovarian and cervical Diabetes Mother Cancer Maternal Grandmother ovarian and cervical Diabetes Maternal Grandmother Coronary Artery Disease Maternal Grandmother Heart Maternal Aunt Hypertension Maternal Aunt Coronary Artery Disease Paternal Grandfather Hypertension Maternal Grandfather SOCIAL HISTORY: Social History Tobacco Use Smoking status: Former Packs/day: 0.50 Years: 1.00 Pack years: 0.50 Types: Cigarettes Quit date: 05/09/2006 Years since quittin.9 Smokeless tobacco: Never Tobacco comments: PATIENT SMOKED 4-5 CIGARETTES DAILY BEFORE QUITTING Vaping Use Vaping Use: Never used Substance Use Topics Alcohol use: No Drug use: No Current Medications Current Medications 03/31/2022 CARDIOVASCULAR Medication Dosage Pharm Subclass verapamil (CALAN, ISOPTIN) 120 mg tablet Take 120 mg by mouth once daily. Antiarrhythmic - Class IV OTHER Medication Dosage Pharm Subclass ADVAIR HFA 230-21 mcg/actuation inhaler INHALE 2 PUFFS BY MOUTH TWICE DAILY DIRECTED Asthma/COPDTherapy - Beta Adrenergic-Glucocorticoid Combinations albuterol 90 mcg/Actuation INHALATION Aero as necessary for asthma Asthma/COPD Therapy - Beta 2-Adrenergic Agents, Inhaled, Short Acting brexpiprazole (REXULTI) 2 mg tablet Antipsychotic-Atypical,D2 Receptor Partial Agonist-5HT Serotonin Mixed buspirone HCl (BUSPAR ORAL) Antianxiety Agent - Non-Benzodiazepine dicyclomine (BENTYL) 20 mg tablet Take 20 mg by mouth as needed. GI Antispasmodic - Synthetic Tertiary Amines EPINEPHrine (EPIPEN) 0.3 mg/0.3 mL auto-injector Use as directed. Cardiovascular Sympathomimetic - Anaphylaxis Therapy Single Agents fluticasone (FLONASE) 50 mcg/actuation nasal spray SHAKE LIQUID AND USE 2 SPRAYS IN EACH NOSTRIL EVERY DAY Nasal Corticosteroids hydrOXYzine pamoate (VISTARIL) 25 mg capsule TAKE 1 CAPSULE BY MOUTH EVERY DAY AT BEDTIME NEEDEDAntianxiety Agent - Antihistamine Type Mesalamine (PENTASA) 500 mg CR capsule Take 1 capsule by mouth four times daily. Inflammatory BowelAgent - Aminosalicylates and Related Agents montelukast (SINGULAIR) 10 mg tablet Take 1 tablet by mouth daily at bedtime. Asthma Therapy - Leukotriene Receptor Antagonists omeprazole (PRILOSEC) 40 mg capsule Take 40 mg by mouth once daily. Gastric Acid Secretion Television Schedule Coordinator - Proton Pump Inhibitors (PPIs) ondansetron (ZOFRAN) 4 mg tablet Take 4 mg by mouth. Antiemetic - Selective Serotonin 5-HT3 Antagonists Pregabalin (LYRICA) 200 mg capsule Take 1 capsule by mouth three times daily for 180 days. Anticonvulsant - SHAYY Analogs Trazodone too PHYSICAL EXAMINATION: BP 125/89 Pulse 84 Wt 134.7 kg (297 lb) LMP 04/05/2016 (Approximate) BMI 43.86 kg/m Body mass index is 43.86 kg/m . General appearance: well appearing, alert, and in no acute distress Eyes: Anicteric sclera. Extraocular movements are intact Neck: Thyroid normal size, no adenopathy Heart: RRR with normal S1 and S2, no murmurs or gallops Lungs: clear to auscultation bilaterally, no wheezes Abdomen: Nontender, nondistended with normoactive bowel sounds Extremities: no cyanosis, normal nails, and No edema Neuro: Gait normal. No tremor. Strength and sensation grossly intact LABS: Hemoglobin A1C (POCT) (%) Date Value 03/31/2022 6.0 ) No components found for: URINEALBUMIN Creatinine Date Value Ref Range Status 07/11/2019 0.84 0.58 - 0.96 mg/dL Final Cholesterol, Total (mg/dL) Date Value 04/30/2009 239 HDL Cholesterol (mg/dL) Date Value 04/30/2009 43 LDL Cholesterol (mg/dL) Date Value 04/30/2009 147 Triglyceride (mg/dL) Date Value 04/30/2009 246 TSH Date Value Ref Range Status 12/23/2009 1.960 0.400 - 5.500 uU/mL Final No results found for: FREET4 ASSESSMENT & PLAN Alma Delia Pearl is a 36 year old female who presents for management of diabetes, specifically diabetes mellitus type 2, diet-controlled. Also with class III obesity (BMI 43.8), PCOS With regards to weight, I believe this is the most important thing we can target at this time as itcontributes to both her diabetes and PCOS. Discussed lifestyle interventions. For medications, we are somewhat limited, she does not want to be on ozempic or metformin, has trialed phentermine beforeand she is on several psych meds which are working against her (but her history of depression, anxie ty, bipolar limit her ability to take many of the medications). Will try mounjaro. She is interested in bariatric surgery so we will refer, and in the PCOS weight loss clinic so we will refer to both For DM, she is diet-controlled. HgA1c currently 6.0% Management of blood sugars: -Monitor sugar only as needed for symptoms -Continue current glycemic regimen: diet-controlled -No known complications at this time -Diet and exercise is encouraged For PCOS, she is intolerant of OCPs and should continue to follow with OB/gyne Could consider medroxyprogesterone injectible in future For HS and hirsutism is trying aldactone with derm Not sexually active All of the above issues cannot be completely addressed in one visit, explained that these are chronic and we will need to involve longitudinal multidisciplinary approach to assist her Patient is to continue to follow up with his PCP and with other consultants regarding other medicalproblems. Follow up in 3 mos. I spent a total of 60 minutes on the date of the service which included preparing to see the patient, aovg-tn-hdif patient care, completing clinical documentation, obtaining and/or reviewing separately obtained history, performing a medically appropriate examination, and counseling and educating the patient/family/caregiver. Kimberly Velazquez MD PGY-5 Endocrinology and Metabolism [place] Seen with attending, Dr. Gonsalez. [facility] STAFF PHYSICIAN NOTE OF PERSONAL INVOLVEMENT IN CARE I have reviewed the history and physical examination obtained and documented by the fellow and I personally participated in the sutton components. I have discussed the case and management of the patient's care. The following comments revise or confirm relevant sutton components of their note. IMPRESSION: This is a 36 year old female who presents with obesity and PCOS coming to establish care Patient goal is to achieve a weigh tof 170 lbs, she has been unable to tolerate semiglutide, metformin, qsymia She has Bipolar disorder, depression and anxiety follow up by mental health provider PCOS not treated due to difficulty in tolerating OCPs She has DM type 2 PLAN: Start low dose tirzapatide to see if she tolerate this Refer the patient to bariatric surgery due to multiple failures due to side effect with medical therapy Refer the paitnet to PCOS clinic to see if that can help with another control that can help her We will see the patient back in 3 months Plan of care discussed with Patient SIGNATURE: Jackson Hall MD DATE of SERVICE: April 01, 2022 TIME of SERVICE: 9:33 AM [facility] Discharge instructions Patient Education 12/31/2021 22:02:41 Shortness of Breath, Adult, Hjmy-cq-Pwcb Shortness of Breath, Adult Shortness of breath means you have trouble breathing. Shortness of breath could be a sign of a medical problem. Follow these instructions at home: Watch for any changes in your symptoms. Do not use any products that contain nicotine or tobacco, such as cigarettes, e- cigarettes, and chewing tobacco. Do not smoke. Smoking can cause shortness of breath. If you need help to quit smoking, ask your doctor. Avoid things that can make it harder to breathe, such as: ?Mold. ?Dust. ?Air pollution. ?Chemical smells. ?Things that can cause allergy symptoms (allergens), if you have allergies. Keep your living space clean. Use products that help remove mold and dust. Rest as needed. Slowly return to your normal activities. Take oofs-ccg-ytcxqwc and prescription medicines only as told by your doctor. This includes oxygen therapy and inhaled medicines. Keep all follow-up visits as told by your doctor. This is important. Contact a doctor if: Your condition does not get better as soon as expected. You have a hard time doing your normal activities, even after you rest. You have new symptoms. Get help right away if: Your shortness of breath gets worse. You have trouble breathing when you are resting. You feel light-headed or you pass out (faint). You have a cough that is not helped by medicines. You cough up blood. You have pain with breathing. You have pain in your chest, arms, shoulders, or belly (abdomen). You have a fever. You cannot walk up stairs. You cannot exercise the way you normally do. These symptoms may represent a serious problem that is an emergency. Do not wait to see if the symptoms will go away. Get medical help right away. Call your local emergency services (911 in the [place] Do not drive yourself to the hospital. Summary Shortness of breath is when you have trouble breathing enough air. It can be a sign of a medical problem. Avoid things that make it hard for you to breathe, such as smoking, pollution, mold, and dust. Watch for any changes in your symptoms. Contact your doctor if you do not get better or you get worse. This information is not intended to replace advice given to you by your health care provider. Make sure you discuss any questions you have with your health care provider. Document Released: 10/11/2008 Document Revised: 09/25/2018 Document Reviewed: 09/25/2018 [employer] Patient Education 2020 [employer] 12/31/2021 22:02:36 Dizziness, Clfg-uw-Crnr Dizziness Dizziness is a common problem. It makes you feel unsteady or light-headed. You may feel like you are about to pass out (faint). Dizziness can lead to getting hurt if you stumble or fall. Dizziness can be caused by many things, including: Medicines. Not having enough water in your body (dehydration). Illness. Follow these instructions at home: Eating and drinking Drink enough fluid to keep your pee (urine) clear or pale yellow. This helps to keep you from getting dehydrated. Try to drink more clear fluids, such as water. Do not drink alcohol. Limit how much caffeine you drink or eat, if your doctor tells you to do that. Limit how much salt (sodium) you drink or eat, if your doctor tells you to do that. Activity Avoid making quick movements. ?When you stand up from sitting in a chair, steady yourself until you feel okay. ?In the morning, first sit up on the side of the bed. When you feel okay, stand slowly while you hold onto something. Do this until you know that your balance is fine. If you need to electrical power engineer one place for a long time, move your legs often. Tighten and relax the muscles in your legs while you are standing. Do not drive or use heavy machinery if you feel dizzy. Avoid bending down if you feel dizzy. Place items in your home so you can reach them easily withoutleaning over. Lifestyle Do not use any products that contain nicotine or tobacco, such as cigarettes and e-cigarettes. If you need help quitting, ask your doctor. Try to lower your stress level. You can do this by using methods such as yoga or meditation. Talk with your doctor if you need help. General instructions Watch your dizziness for any changes. Take ziwh-ojh-ykqqzza and prescription medicines only as told by your doctor. Talk with your doctorif you think that you are dizzy because of a medicine that you are taking. Tell a friend or a family member that you are feeling dizzy. If he or she notices any changes in your behavior, have this person call your doctor. Keep all follow-up visits as told by your doctor. This is important. Contact a doctor if: Your dizziness does not go away. Your dizziness or light-headedness gets worse. You feel sick to your stomach (nauseous). You have trouble hearing. You have new symptoms. You are unsteady on your feet. You feel like the room is spinning. Get help right away if: You throw up (vomit) or have watery poop (diarrhea), and you cannot eat or drink anything. You have trouble: ?Talking. ?Walking. ?Swallowing. ?Using your arms, hands, or legs. You feel generally weak. You are not thinking clearly, or you have trouble forming sentences. A friend or family member may notice this. You have: ?Chest pain. ?Pain in your belly (abdomen). ?Shortness of breath. ?Sweating. Your vision changes. You are bleeding. You have a very bad headache. You have neck pain or a stiff neck. You have a fever. These symptoms may be an emergency. Do not wait to see if the symptoms will go away. Get medical help right away. Call your local emergency services (911 in the [place] Do not drive yourself to the hospital. Summary Dizziness makes you feel unsteady or light-headed. You may feel like you are about to pass out (faint). Drink enough fluid to keep your pee (urine) clear or pale yellow. Do not drink alcohol. Avoid making quick movements if you feel dizzy. Watch your dizziness for any changes. This information is not intended to replace advice given to you by your health care provider. Make sure you discuss any questions you have with your health care provider. Document Released: 2012 Document Revised: 04/28/2018 Document Reviewed: 05/12/2017 [employer] Patient Education 2020 [employer]. Follow Up Care 12/31/2021 19:48:50 With:Nerissa Hurley Address: [address] [place] [id number] When:01/03/2022 [facility]08-25-2022 Evaluation + Plan noteExtracted from: Title:ED Note Author:Mary Kay Gomez PA-C Date :12/31/21 1. Dizziness (R42: Dizziness and giddiness) Ordered: meclizine, 25 mg = 1 tab(s), Oral, TID, X 5 day(s), # 15 tab(s), Refills(s) 0, Pharmacy: [facility] #[id number], 175, cm, 12/31/21 19:57:00 EDT, Height/Length Dosing, 139.2, kg, 12/31/21 19:57:00 EDT, Weight Dosing 2. Dyspnea (R06.00: Dyspnea, unspecified) Ordered: meclizine, 25 mg = 1 tab(s), Oral, TID, X 5 day(s), # 15 tab(s), Refills(s) 0, Pharmacy: [facility] #[id number], 175, cm, 12/31/21 19:57:00 EDT, Height/Length Dosing, 139.2, kg, 12/31/21 19:57:00 EDT, Weight Dosing Orders: meclizine, 25 mg = 2 tab(s), Tab, Oral, Once, Stop date 12/31/21 20:44:00 EDT, STAT, Start date 12/31/21 20:44:00 EDT, 12/31/21 20:44:00 EDT Automated Diff CBC w/ Auto Diff Comprehensive Metabolic Panel eGFR Magnesium Level PT & PTT Troponin XR Chest Single View Future Appointments Appointment Date:09/23/2022 09:30:00 AM Scheduled Provider: Location:[facility] Appointment Type: Medicare Wellness Subsequent Future Scheduled Tests Laboratory* TIBC Calculated 12/29/21 * SARS-CoV-2, MANUEL 03/25/21 * Rapid COVID Antigen ([facility]) 05/17/21 * CBC w/ Auto Diff 12/29/21 * Ferritin 12/29/21 * Iron Level 12/29/21 * Reticulocyte Count 12/29/21 [facility]08-19-2022 Hospital Discharge instructions Patient Education 12/25/2021 01:03:04 Colitis Colitis Colitis is inflammation of the colon. Colitis may last a short time (be acute), or it may last a long time (become chronic). What are the causes? This condition may be caused by: Viruses. Bacteria. Reaction to medicine. Certain autoimmune diseases such as Crohn's disease or ulcerative colitis. Radiation treatment. Decreased blood flow to the bowel (ischemia). What are the signs or symptoms? Symptoms of this condition include: Watery diarrhea. Passing bloody or tarry stool. Pain. Fever. Vomiting. Tiredness (fatigue). Weight loss. Bloating. Abdominal pain. Having fewer bowel movements than usual. A strong and sudden urge to have a bowel movement. Feeling like the bowel is not empty after a bowel movement. How is this diagnosed? This condition is diagnosed with a stool test or a blood test. You may also have other tests, such as: X-rays. CT scan. Colonoscopy. Endoscopy. Biopsy. How is this treated? Treatment for this condition depends on the cause. The condition may be treated by: Resting the bowel. This involves not eating or drinking for a period of time. Fluids that are given through an IV. Medicine for pain and diarrhea. Antibiotic medicines. Cortisone medicines. Surgery. Follow these instructions at home: Eating and drinking Follow instructions from your health care provider about eating or drinking restrictions. Drink enough fluid to keep your urine pale yellow. Work with a dietitian to determine which foods cause your condition to flare up. Avoid foods that cause flare-ups. Eat a well-balanced diet. General instructions If you were prescribed an antibiotic medicine, take it as told by your health care provider. Do notstop taking the antibiotic even if you start to feel better. Take jjvm-jmh-wwzswga and prescription medicines only as told by your health care provider. Keep all follow-up visits as told by your health care provider. This is important. Contact a health care provider if: Your symptoms do not go away. You develop new symptoms. Get help right away if you: Have a fever that does not go away with treatment. Develop chills. Have extreme weakness, fainting, or dehydration. Have repeated vomiting. Develop severe pain in your abdomen. Pass bloody or tarry stool. Summary Colitis is inflammation of the colon. Colitis may last a short time (be acute), or it may last a long time (become chronic). Treatment for this condition depends on the cause and may include resting the bowel, taking medicines, or having surgery. If you were prescribed an antibiotic medicine, take it as told by your health care provider. Do notstop taking the antibiotic even if you start to feel better. Get help right away if you develop severe pain in your abdomen. Keep all follow-up visits as told by your health care provider. This is important. This information is not intended to replace advice given to you by your health care provider. Make sure you discuss any questions you have with your health care provider. Document Released: 06/02/2005 Document Revised: 10/26/2018 Document Reviewed: 10/26/2018 [employer] Patient Education 2020 [employer]. Follow Up Care 12/24/2021 21:33:17 With:Nerissa Rivera Address: [address] [place] [phone] When:12/28/2021 Comments:Take the antibiotics as prescribed you have completed the course, you can use the Zofran, Bentyl asneeded for pain and nausea. Please follow-up with your primary care doctor in the next 2 to 3 days for further evaluation management. Please return the ED for any new or worsening symptoms. [facility]08-18-2022 Evaluation + Plan noteExtracted from: Title:ED Note Author:Mary Kay Gomez PA-C Date :12/24/21 Colitis (K52.9: Noninfective gastroenteritis and colitis, unspecified) Orders: ciprofloxacin, 500 mg = 1 tab(s), Tab, Oral, Once, Stop date 12/25/21 0:31:00 EDT, STAT, Start date 12/25/21 0:31:00 EDT, 12/25/21 0:31:00 EDT ciprofloxacin, 500 mg = 1 tab(s), Oral, BID, # 28 tab(s), Refills(s) 0 dicyclomine, 20 mg = 2 mL, Injection, IntraMuscular, Once, Stop date 12/25/21 0:30:00 EDT, STAT, Start date 12/25/21 0:30:00 EDT, 12/25/21 0:30:00 EDT dicyclomine, 10 mg = 1 cap(s), Oral, QID, X 7 day(s), # 14 cap(s), Refills(s) 0 ketorolac, 30 mg = 1 mL, Injection, IV Push, Once, Stop date 12/25/21 0:30:00 EDT, STAT, Start date 12/25/21 0:30:00 EDT, 12/25/21 0:30:00 EDT metronidazole, 500 mg = 1 tab(s), Oral, TID, X 10 day(s), # 30 tab(s), Refills(s) 0 metronidazole, 500 mg = 1 tab(s), Tab, Oral, Once, Stop date 12/25/21 0:31:00 EDT, STAT, Start date 12/25/21 0:31:00 EDT, 12/25/21 0:31:00 EDT ondansetron, 4 mg = 1 tab(s), Oral, q8hr, PRN Nausea/Vomiting, # 12 tab(s), Refills(s) 0 Future Appointments Appointment Date:12/29/2021 09:20:00 AM Scheduled Provider:Nerissa Hurley Location:[facility] Appointment Type: ER/Hospital Follow Up Appointment Date:09/23/2022 09:30:00 AM Scheduled Provider: Location:[facility] [place] [facility] Appointment Type: Medicare Wellness Subsequent Future Scheduled Tests Laboratory* SARS-CoV-2, MANUEL 03/25/21 * Rapid COVID Antigen ([facility]) 05/17/21 [facility]07-06-2022 NoteChief Complaint An interactive audio and video telecommunication system which permits real time communications between the patient (at the originating site) and provider (at the distant site) was utilized to providethis telehealth service. Verbal consent was requested and obtained from ALMA DELIA PEARL on this date, 11/11/2021 02:00 PM , for a telehealth visit. obesity initial nutrition evaluation Active Problems Crohn's disease (555.9) (K50.90) Depression (311) (F32.A) Factor V Leiden (289.81) (D68.51) GERD (gastroesophageal reflux disease) (530.81) (K21.9) Hyperlipidemia (272.4) (E78.5) Migraines (346.90) (G43.909) Obstructive sleep apnea, adult (327.23) (G47.33) PCOS (polycystic ovarian syndrome) (256.4) (E28.2) Type 2 diabetes mellitus without complication, unspecified whether adjunct faculty for medical terminology insulin use (250.00) (E11.9) Provider Impressions Surgeon: Michael Patient is considering: Gastric Bypass ASSESSMENT: Current weight in pounds: 299.0 Ht: 69 in BMI: 44.3 Initial start weight in pounds: 299.0 Pre-Op Excess Body Weight (EBW) in pounds: 130.0 Target Post-Op weight goal in pounds: 195.0- 221.0 Food allergies/intolerances: dairy, eggs, splenda Chewing/Swallowing/Dentition: no Nausea / Vomiting / Hx Gastroparesis: acid reflux managed with Omeprazole but nauseous on Ozempic (has Zofran) Diarrhea/ Constipation: some loose stools Exercise level: minimal walking Smoking/Tobacco use: no Vitamins/Minerals supplements: gummy MVI Medications: see list Past diet attempts: keto, WW, otc meds, Ozempic Hours of sleep/night: 8 24 HOUR RECALL/DIET HISTORY: Breakfast: Belvita biscuits and fruit Snack: no Lunch: fried chicken sandwich with mcgraw Snack: no Dinner: chicken ferreira ranch casserole with noodles Snack: veggie crackers Beverages: water, body armour lite, 0 calorie water, diet pop, coffee almond milk creamer Alcohol: no Person responsible for cooking AND shopping? self How often do you eat sweet snacks? 2-4x/wk How often do you eat savory snacks? 3-5x/wk How often do you eat out? 2x/wk Do you feel overly stuffed? seldom Binge Eating? sometimes Night Eating? no Emotional Eating? seldom READINESS TO LEARN: Motivation to learn: Interested Understanding of instruction: Good Anticipated Compliance: Good Family Support: friend Educational Materials Provided: Pre-op Diet and sample menus Nutrition Guidelines for Gastric Bypass Schedules for MSWL class and support group Calorie meal plan Goals sheet This appt was conducted via phone d/t COVID 19 precautions. Nutrition assessment completed today. Patient will schedule for video education class to discuss the 2 week pre-op diet, post-op protein and fluid goals, vitamin and mineral supplementation, exercise goals, and post-op diet progression at a later date. Patient is seeking gastric bypass surgery Her weight has been a struggle since childhood. Considers carbs and portion size her dietary obstacles. She has tried numerous weight loss approaches and has had limited success. Goal for surgery is to lower weight for overall health. Instructed patient on a 1500 calorie meal plan and to measure and record intake daily. Advised patient to start following meal plan and eat 3 meals daily. Reviewed post-op behaviors to start practicing. Set goal to exercise for 30 minutes 3 times weekly and a increase to 60 minutes 5 times weekly. Recommend that patient follow up in 1 month to assess progress. Patient was receptive to nutritional recommendations, asked numerous questions, and verbalized understanding of the weight loss surgery diet. Patient expressed understanding about the importance of strict dietary compliance post-surgery to avoid nutritional deficiencies and achieve optimal weight loss and verbalized intent to follow dietary recommendations. Malnutrition Screening: Significant unintentional weight loss? n/a Eating less than 75% of usual intake for more than 2 weeks? n/a Nutrition Diagnosis: 1. Overweight/obesity related to excess energy intake as evidenced by BMI = 40 kg/m2. 2. Food- and nutrition-related knowledge deficit related to lack of prior exposure to surgical weight loss information as evidenced by pt new to surgical program. Nutrition Interventions: 1. Modify type and amount of food and nutrients within meals and snacks. 2. Comprehensive Nutrition Education Recommendations: 1. Begin following your meal plan. Measure and record intake daily. 2. Structure meal patterns, eating three meals and 1-2 snacks per day. 3. Have a good source of protein at every meal AND snack. Aim for 60-70 grams/day. 4. Drink 64 oz of calorie-free, caffeine-free, and non-carbonated beverages. 5. Practice no drinking 30 minutes before meals, nothing with meals and wait 30 minutes after mealsto drink again. Make meals last 30 minutes-chew thoroughly. 6. Limit or omit eating out/sweets/savory snacks to 1-2 times per week. 7. Begin elena (more content not included)...[id number] Discharge instructions Patient Education 11/03/2021 13:43:51 BMI for Adults BMI for Adults Body mass index (BMI) is a number that is calculated from a person's weight and height. BMI may help to estimate how much of a person's weight is composed of fat. BMI can help identify those who may be at higher risk for certain medical problems. How is BMI used with adults? BMI is used as a screening tool to identify possible weight problems. It is used to check whether aperson is obese, overweight, healthy weight, or underweight. How is BMI calculated? BMI measures your weight and compares it to your height. This can be done either in [place] or metric measurements. Note that charts are available to help you find your BMI quickly and easily without having to do these calculations yourself. To calculate your BMI in [place] measurements, your health care provider will: 1.Measure your weight in pounds (lb). 2.Multiply the number of pounds by 703. For example, for a person who weighs 180 lb, multiply that number by 703, which equals 126,540. 3.Measure your height in inches (in). Then multiply that number by itself to get a measurement called inches squared. For example, for a person who is 70 in tall, the inches squared measurement is 70 in x 70 in, which equals 4900 inches squared. 4.Divide the total from Step 2 (number of lb x 703) by the total from Step 3 (inches squared): 126,540 4900 = 25.8. This is your BMI. To calculate your BMI in metric measurements, your health care provider will: 1.Measure your weight in kilograms (kg). 2.Measure your height in meters (m). Then multiply that number by itself to get a measurement called meters squared. For example, for a person who is 1.75 m tall, the meters squared measurement is 1.75 m x 1.75 m, which is equal to 3.1 meters squared. 3.Divide the number of kilograms (your weight) by the meters squared number. In this example: 70 3.1 = 22.6. This is your BMI. How is BMI interpreted? To interpret your results, your health care provider will use BMI charts to identify whether you are underweight, normal weight, overweight, or obese. The following guidelines will be used: Underweight: BMI less than 18.5. Normal weight: BMI between 18.5 and 24.9. Overweight: BMI between 25 and 29.9. Obese: BMI of 30 and above. Please note: Weight includes both fat and muscle, so someone with a muscular build, such as an athlete, may havea BMI that is higher than 24.9. In cases like these, BMI is not an accurate measure of body fat. To determine if excess body fat is the cause of a BMI of 25 or higher, further assessments may needto be done by a health care provider. BMI is usually interpreted in the same way for men and women. Why is BMI a useful tool? BMI is useful in two ways: Identifying a weight problem that may be related to a medical condition, or that may increase the risk for medical problems. Promoting lifestyle and diet changes in order to reach a healthy weight. Summary Body mass index (BMI) is a number that is calculated from a person's weight and height. BMI may help to estimate how much of a person's weight is composed of fat. BMI can help identify those who may be at higher risk for certain medical problems. BMI can be measured using Cypriot measurements or metric measurements. To interpret your results, your health care provider will use BMI charts to identify whether you are underweight, normal weight, overweight, or obese. This information is not intended to replace advice given to you by your health care provider. Make sure you discuss any questions you have with your health care provider. Document Released: 01/04/2005 Document Revised: 04/07/2018 Document Reviewed: 03/08/2018 [employer] Patient Education 2020 [employer] 11/03/2021 13:24:30 Mesenteric Adenitis, Adult Mesenteric Adenitis, Adult Mesenteric adenitis is inflammation of lymph nodes in the membrane that attaches the intestines to the inside wall of the abdomen (mesentery). Lymph nodes are collections of tissue that filter bacteria, viruses, and waste from the bloodstream. They are located in several different areas of the bodyand are part of the body's disease-fighting system (immune system). Symptoms of this condition are often similar to inflammation of the appendix (appendicitis). Mesenteric adenitis is a painful condition, but it usually clears up either without treatment or with antibiotic medicine. What are the causes? A viral or bacterial infection is the most common cause of this condition. The infection usually starts somewhere else in the body. What are the signs or symptoms? Symptoms of this condition include: Abdominal pain and tenderness. Fever. Nausea and vomiting. Diarrhea. How is this diagnosed? This condition may be diagnosed based on: A physical exam and your medical history. Blood tests. Abdominal ultrasound. Abdominal CT scan. How is this treated? If your condition is caused by a virus, it usually goes away without treatment within 1 2 weeks. Ifthe cause is a bacterial infection, you will be treated with antibiotic medicines. Your health careprovider may recommend medicines to help relieve pain or fever. Follow these instructions at home: Take [id number] and prescription medicines only as told by your health care provider. Do not drive or use heavy machinery while taking prescription pain medicines. If you were prescribed an antibiotic medicine, take it as told by your health care provider. Do notstop taking the antibiotic even if you start to feel better. Get plenty of rest. Drink enough fluid to keep your urine pale yellow. Follow instructions from your health care provider about eating or drinking restrictions. Keep all follow-up visits as told by your health care provider. This is important. Contact a health care provider if: You have a fever. Get help right away if: Your pain becomes severe or does not go away. You vomit repeatedly. You have severe pain in the lower, right part of your abdomen. This may be appendicitis. You have bright red or black, tarry stools. Summary Mesenteric adenitis is inflammation of lymph nodes in the membrane that attaches the intestines to the inside wall of the abdomen (mesentery). Mesenteric adenitis is a painful condition, but it usually clears up either without treatment or with antibiotic medicine. A viral or bacterial infection is the most common cause of this condition. This information is not intended to replace advice given to you by your health care provider. Make sure you discuss any questions you have with your health care provider. Document Released: 08/08/2017 Document Revised: 01/12/2019 Document Reviewed: 08/08/2017 [employer] Patient Education 2019 [employer]. Follow Up Care 11/02/2021 12:12:21 With:RTC for next regularly scheduled chronic disease management visit - sooner for problems Address: When: Unknown [facility] 06-27-2022 Hospital Discharge instructions Patient Education 11/01/2021 22:18:47 Mesenteric Adenitis, Adult Mesenteric Adenitis, Adult Mesenteric adenitis is inflammation of lymph nodes in the membrane that attaches the intestines to the inside wall of the abdomen (mesentery). Lymph nodes are collections of tissue that filter bacteria, viruses, and waste from the bloodstream. They are located in several different areas of the bodyand are part of the body's disease-fighting system (immune system). Symptoms of this condition are often similar to inflammation of the appendix (appendicitis). Mesenteric adenitis is a painful condition, but it usually clears up either without treatment or with antibiotic medicine. What are the causes? A viral or bacterial infection is the most common cause of this condition. The infection usually starts somewhere else in the body. What are the signs or symptoms? Symptoms of this condition include: Abdominal pain and tenderness. Fever. Nausea and vomiting. Diarrhea. How is this diagnosed? This condition may be diagnosed based on: A physical exam and your medical history. Blood tests. Abdominal ultrasound. Abdominal CT scan. How is this treated? If your condition is caused by a virus, it usually goes away without treatment within 1 2 weeks. Ifthe cause is a bacterial infection, you will be treated with antibiotic medicines. Your health careprovider may recommend medicines to help relieve pain or fever. Follow these instructions at home: Take gtmk-[id number] and prescription medicines only as told by your health care provider. Do not drive or use heavy machinery while taking prescription pain medicines. If you were prescribed an antibiotic medicine, take it as told by your health care provider. Do notstop taking the antibiotic even if you start to feel better. Get plenty of rest. Drink enough fluid to keep your urine pale yellow. Follow instructions from your health care provider about eating or drinking restrictions. Keep all follow-up visits as told by your health care provider. This is important. Contact a health care provider if: You have a fever. Get help right away if: Your pain becomes severe or does not go away. You vomit repeatedly. You have severe pain in the lower, right part of your abdomen. This may be appendicitis. You have bright red or black, tarry stools. Summary Mesenteric adenitis is inflammation of lymph nodes in the membrane that attaches the intestines to the inside wall of the abdomen (mesentery). Mesenteric adenitis is a painful condition, but it usually clears up either without treatment or with antibiotic medicine. A viral or bacterial infection is the most common cause of this condition. This information is not intended to replace advice given to you by your health care provider. Make sure you discuss any questions you have with your health care provider. Document Released: 08/08/2017 Document Revised: 01/12/2019 Document Reviewed: 08/08/2017 [employer] Patient Education [employer]. Follow Up Care 11/01/2021 19:06:33 With:Lacey LAZO Address: [address] [place], [place] [id number] Business (1) When:11/04/2021 21:37:32 Comments:Take the medications as prescribed as needed for pain and nausea. Please follow-up with your primary care doctor in the next 2 to 3 days. Please return to ED for any new or worsening symptoms. 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.0: Nonspecific mesenteric lymphadenitis) Orders: dicyclomine, 10 mg = 1 cap(s), Cap, Oral, Once, Stop date 11/01/21 21:35:00 EDT, STAT, Start date 11/01/21 21:35:00 EDT, 11/01/21 21:35:00 EDT dicyclomine, 10 mg = 1 cap(s), Oral, QID, X 7 day(s), # 14 cap(s), Refills(s) 0 diphenhydrAMINE, 25 mg = 0.5 mL, Injection, IV Push, Once, Stop date 11/01/21 19:23:00 EDT, STAT, Start date 11/01/21 19:23:00 EDT, 11/01/21 19:23:00 EDT ketorolac, 30 mg = 1 mL, Injection, IV Push, Once, Stop date 11/01/21 19:22:00 EDT, STAT, Start date 11/01/21 19:22:00 EDT, 11/01/21 19:22:00 EDT metoclopramide, 10 mg = 2 mL, Injection, IV Push, Once, Stop date 11/01/21 19:22:00 EDT, STAT, Start date 11/01/21 19:22:00 EDT, 11/01/21 19:22:00 EDT ondansetron, 4 mg = 1 tab(s), Oral, q8hr, PRN Nausea/Vomiting, # 12 tab(s), Refills(s) 0 Sodium Chloride 0.9% intravenous solution, 1,000 mL, Soln-IV, IV, Once, Stop date 11/01/21 19:22:00 EDT, STAT, Start date 11/01/21 19:22:00 EDT, Infuse over 61, minute(s) Sodium Chloride 0.9% intravenous solution, Soln-IV, Misc, Once, Stop date 11/01/21 19:43:22 EDT, Physician Stop, 11/01/21 19:43:22 EDT Automated Diff Basic Metabolic Panel Beta hCG Qual CBC w/ Auto Diff CT Abdomen/Pelvis w/ Contrast eGFR Hepatic Function Panel UA With Cult Reflex Future Appointments Appointment Date:11/11/2021 01:00:00 PM Scheduled [facility] Type[facility]DM [facility] ([facility]) Appointment Date:11/24/2021 09:20:00 AM Scheduled Provider:Nerissa Hurley Location:[facility] Appointment Type: Open Appointment Date:12/01/2021 09:00:00 AM Scheduled Provider: [facility] Type:DM Diabetes Group ([place]) Appointment Date:09/23/2022 09:30:00 AM Scheduled Provider: Location:[facility] Appointment Type:FM Medicare Wellness Subsequent Future Scheduled Tests Laboratory* SARS-CoV-2, MANUEL 11/17/21 * Rapid COVID Antigen ([facility]) 05/17/21 [facility]04-19-2022 Hospital Discharge instructions Follow Up Care 08/25/2021 10:01:14 With:Nerissa Hurley Address: [address] [place], [place] [id number]- When:Within 1 Month(s) [facility] [place] 04-12-2022 Evaluation + Plan note Diagnostic Tests Pending * Hepatitis B Surface Antigen 08/18/21 * RPR with Conf Rfx 08/18/21 * Urine Culture 08/18/21 * Rubella Antibody IgG 08/18/21 * HIV Screen 4th Generation wRfx 08/18/21 Future Scheduled Tests Laboratory* SARS-CoV-2, MANUEL 03/25/21 * Rapid COVID Antigen ([facility]) 05/17/21 [facility]-17-2021 Evaluation + Plan note Future Scheduled Tests Laboratory* SARS-CoV-2, MANUEL 03/25/21 * Rapid COVID Antigen ([facility]) 05/17/21 [facility]09-20-2010 History of Past illness Narrative* Problem Noted Date Resolved Date Neuritis 01/26/2010 11/06/2015 Abdominal pain, unspecified site 12/17/2008 01/31/2009 Spasm of muscle 09/27/2008 01/31/2009 Abnormal coagulation profile 07/31/2008 Endometriosis, site unspecified 01/31/2009 Abdominal pain, generalized 01/08 Morbid obesity 07/09/2008 Irritable bowel syndrome 009 Overview: On Bentyl and Phenergan documented as of this encounter (statuses as of 08/18/2021) [facility]09-20-2010 History of Past illness Narrative* Problem Noted Date Resolved Date Neuritis 01/26/2010 11/06/2015 Abdominal pain, unspecified site 12/17/2008 01/31/2009 Spasm of muscle 09/27/2008 01/31/2009 Abnormal coagulation profile 07/31/2008 Endometriosis, site unspecified 01/31/2009 Abdominal pain, generalized 01/08 Morbid obesity 07/09/2008 Irritable bowel syndrome 009 Overview: On Bentyl and Phenergan documented as of this encounter (statuses as of 04/01/2022) [facility]09[facility]2010 History of Past illness Narrative* Problem Noted Date Resolved Date Neuritis 01/26/2010 11/06/2015 Abdominal pain, unspecified site 12/17/2008 01/31/2009 Spasm of muscle 09/27/2008 01/31/2009 Abnormal coagulation profile 07/31/2008 Endometriosis, site unspecified 01/31/2009 Abdominal pain, generalized 01/08 Morbid obesity 07/09/2008 Irritable bowel syndrome 009 Overview: On Bentyl and Phenergan documented as of this encounter (statuses as of 05/13/2022) [facility] History of Past illness Narrative* Problem Noted Date Resolved Date Neuritis 01/26/2010 11/06/2015 Abdominal pain, unspecified site 12/17/2008 01/31/2009 Spasm of muscle 09/27/2008 01/31/2009 Abnormal coagulation profile 07/31/2008 Endometriosis, site unspecified 01/31/2009 Abdominal pain, generalized 01/08 Morbid obesity 07/09/2008 Irritable bowel syndrome 009 Overview: On Bentyl and Phenergan documented as of this encounter (statuses as of 05/27/2022) [facility]2010 History of Past illness Narrative* Problem Noted Date Resolved Date Neuritis 01/26/2010 11/06/2015 Abdominal pain, unspecified site 12/17/2008 01/31/2009 Spasm of muscle 09/27/2008 01/31/2009 Abnormal coagulation profile 07/31/2008 Endometriosis, site unspecified 01/31/2009 Abdominal pain, generalized 01/08 Morbid obesity 07/09/2008 Irritable bowel syndrome 009 Overview: On Bentyl and Phenergan documented as of this encounter (statuses as of 06/21/2022) [facility] History of Past illness Narrative* Problem Noted Date Resolved Date Neuritis 01/26/2010 11/06/2015 Abdominal pain, unspecified site 12/17/2008 01/31/2009 Spasm of muscle 09/27/2008 01/31/2009 Abnormal coagulation profile 07/31/2008 Endometriosis, site unspecified 01/31/2009 Abdominal pain, generalized 01/08 Morbid obesity 07/09/2008 Irritable bowel syndrome 009 Overview: On Bentyl and Phenergan documented as of this encounter (statuses as of 06/25/2022) [facility] History of Past illness Narrative* Problem Noted Date Resolved Date Neuritis 01/26/2010 11/06/2015 Abdominal pain, unspecified site 12/17/2008 01/31/2009 Spasm of muscle 09/27/2008 01/31/2009 Abnormal coagulation profile 07/31/2008 Endometriosis, site unspecified 01/31/2009 Abdominal pain, generalized 01/08 Morbid obesity 07/09/2008 Irritable bowel syndrome 009 Overview: On Bentyl and Phenergan documented as of this encounter (statuses as of 07/22/2022) [facility] History of Past illness Narrative* Problem Noted Date Resolved Date Neuritis 01/26/2010 11/06/2015 Abdominal pain, unspecified site 12/17/2008 01/31/2009 Spasm of muscle 09/27/2008 01/31/2009 Abnormal coagulation profile 07/31/2008 Endometriosis, site unspecified 01/31/2009 Abdominal pain, generalized 01/08 Morbid obesity 07/09/2008 Irritable bowel syndrome 009 Overview: On Bentyl and Phenergan documented as of this encounter (statuses as of 09/10/2022) [facility] History of Past illness Narrative* Problem Noted Date Resolved Date Neuritis 01/26/2010 11/06/2015 Abdominal pain, unspecified site 12/17/2008 01/31/2009 Spasm of muscle 09/27/2008 01/31/2009 Abnormal coagulation profile 07/31/2008 Endometriosis, site unspecified 01/31/2009 Abdominal pain, generalized 01/08 Morbid obesity 07/09/2008 Irritable bowel syndrome 009 Overview: On Bentyl and Ricaan documented as of this encounter (statuses as of 09/13/2022) [facility] Appointment Date:08/31/2021 01:00:00 PM Scheduled Provider:Steve KINCAID, ABIGAIL, TONI, Kourtney Fleming Location:[facility] Appointment Type:DM Diabetes Initial Assessment [address] RD (F Appointment Date:09/22/2021 09:20:00 AM Scheduled Provider:Nerissa Hurley Location:[facility] Appointment Type:FM Open Future Scheduled Tests Laboratory* SARS-CoV-2, MANUEL 03/25/21 * Rapid COVID Antigen ([facility]) 05/17/21 [facility] [place] Evaluation + Plan note Future Appointments Appointment Date:08/31/2021 01:00:00 PM Scheduled Provider:Steve KINCAID RDN, TONI, Kourtney Fleming [facility] Type:DM Diabetes Initial Assessment [address] RD (F Appointment Date:09/22/2021 09:20:00 AM Scheduled Provider:Nerissa Hurley Location:[facility] Appointment Type: Open Diagnostic Tests Pending * Microalbumin Level Urine 08/25/21 Future Scheduled Tests Laboratory* SARS-CoV-2, MANUEL 03/25/21 * Rapid COVID Antigen ([facility] Appointment Date:10/27/2021 09:00:00 AM Scheduled Provider: Location:.[facility] Appointment Type:DM Diabetes Group ([facility]) Appointment Date:11/11/2021 01:00:00 PM Scheduled [facility] Type[facility]DM [facility] Group ([facility]) Appointment Date:11/24/2021 09:20:00 AM Scheduled Provider:Nerissa Hurley Location:[facility] Appointment Type:FM Open Appointment Date:01/06/2022 01:00:00 PM Scheduled Provider: Location:.[facility] Appointment Type:DM Diabetes Group ([place]) Appointment Date:09/23/2022 09:30:00 AM Scheduled [facility] Type[facility] Medicare Wellness Subsequent Future Scheduled Tests Laboratory* SARS-CoV-2, MANUEL 03/25/21 * Rapid COVID Antigen ([facility] Appointment Date:11/11/2021 01:00:00 PM Scheduled Provider: Location:.[facility] Appointment Type:DM Diabetes Group () Appointment Date:11/24/2021 09:20:00 AM Scheduled Provider:Nerissa Hurley Location:[facility] [place] Appointment Type: Open Appointment Date:12/01/2021 09:00:00 AM Scheduled Provider: [facility] Type:DM Diabetes Group () Appointment Date:09/23/2022 09:30:00 AM Scheduled [facility] Type[facility]FM Medicare Wellness Subsequent Future Scheduled Tests Laboratory* SARS-CoV-2, MANUEL 03/25/21 * Rapid COVID Antigen ([facility]) 05/17/21 [facility] Evaluation + Plan note Future Appointments Appointment Date:12/01/2021 09:00:00 AM Scheduled Provider: [facility] Type:DM Diabetes Group () Appointment Date:09/23/2022 09:30:00 AM Scheduled [facility] Type[facility]FM Medicare Wellness Subsequent Future Scheduled Tests Laboratory* SARS-CoV-2, MANUEL 03/25/21 * Rapid COVID Antigen ([facility] Appointment Date:09/23/2022 09:30:00 AM [facility]: [facility] Type:FM Medicare Wellness Subsequent Future Scheduled Tests Laboratory* TIBC Calculated 12/29/21 * SARS-CoV-2, MANUEL 03/25/21 * Rapid COVID Antigen ([facility] [place]) 05/17/21 * CBC w/ Auto Diff 12/29/21 * Ferritin 12/29/21 * Iron Level 12/29/21 * Reticulocyte Count 12/29/21 [facility] Appointment Date:12/21/2022 01:00:00 PM Scheduled Provider:Irasema Love Location:[facility] Appointment Type: Open Appointment Date:09/22/2023 09:30:00 AM Scheduled Provider: Location:[facility] Appointment Type:FM Medicare Wellness Subsequent Diagnostic Tests Pending * Enteric Panel by PCR 10/22/22 * Clostridium difficile by PCR 10/22/22 Future Scheduled Tests Laboratory* TIBC Calculated 12/29/21 * CBC w/ Auto Diff 12/29/21 * Ferritin 12/29/21 * Iron Level 12/29/21 * Reticulocyte Count 12/29/21 [facility] Future App[facility]ments Appointment Date:06/24/2023 10:20:00 AM Scheduled Provider:Irasema Love Location:[facility] Appointment Type: Open Appointment Date:09/22/2023 09:30:00 AM Scheduled Provider: Location:[facility] Appointment Type:FM Medicare Wellness Subsequent Future Scheduled Tests Laboratory* HgbA1c 12/21/22 * Microalbumin Level Urine 12/21/22 * TIBC Calculated 12/29/21 * TSH With T4fr Reflex 12/21/22 * CBC w/ Auto Diff 12/29/21 * Ferritin 12/29/21 * Iron Level 12/29/21 * Lipid Panel 12/21/22 * Reticulocyte Count 12/29/21 [facility] Evaluation + Plan note Future Appointments Appointment Date:06/24/2023 10:20:00 AM Scheduled Provider:Irasema Love Location:[facility] Appointment Type: Open Appointment Date:09/22/2023 09:30:00 AM Scheduled Provider: Location:[facility] Appointment Type:FM Medicare Wellness Subsequent Future Scheduled Tests Laboratory* HgbA1c 12/21/22 * Microalbumin Level Urine 12/21/22 * TSH With T4fr Reflex 12/21/22 * Lipid Panel 12/21/22 [facility] [place] Evaluation + Plan note Future Appointments Appointment Date:06/14/2023 04:20:00 PM Scheduled Provider:Irasema Love Location:[facility] Appointment Type: Open Appointment Date:09/22/2023 09:30:00 AM Scheduled Provider: Location:[facility] Appointment Type:FM Medicare Wellness Subsequent Future Scheduled Tests Laboratory* HgbA1c 12/21/22 * FSH and LH 05/20/23 * Insulin Free and Total 05/20/23 * TSH With T4fr Reflex 05/20/23 * TSH With T4fr Reflex 12/21/22 * Beta hCG Quantitative 05/20/23 * Cortisol 05/20/23 * Lipid Panel 12/21/22 * Prolactin Level 05/20/23 Radiology* US Breast Unilateral Lt Complete 05/20/23 * MA Mamm Diag w/CAD if perf and 3D John[place] 05/20/23 [facility] Evaluation + Plan note Future Appointments Appointment Date:06/14/2023 04:20:00 PM Scheduled Provider:Irasema Love Location:[facility] Appointment Type: Open Appointment Date:09/22/2023 09:30:00 AM Scheduled Provider: Location:[facility] Appointment Type:FM Medicare Wellness Subsequent Future Scheduled Tests Laboratory* HgbA1c 12/21/22 * FSH and LH 05/20/23 * Insulin Free and Total 05/20/23 * TSH With T4fr Reflex 05/20/23 * TSH With T4fr Reflex 12/21/22 * Beta hCG Quantitative 05/20/23 * Cortisol 05/20/23 * Lipid Panel 12/21/22 * Prolactin Level 05/20/23 [facility] App[facility]ments Appointment Date:09/22/2023 09:30:00 AM Scheduled Provider: Location:[facility] Appointment Type:FM Medicare Wellness Subsequent Future Scheduled Tests Laboratory* HgbA1c 12/21/22 * FSH and LH 05/20/23 * Insulin Free and Total 05/20/23 * TSH With T4fr Reflex 05/20/23 * TSH With T4fr Reflex 12/21/22 * Beta hCG Quantitative 05/20/23 * Cortisol 05/20/23 * Lipid Panel 12/21/22 * Prolactin Level 05/20/23 [facility] [place] Evaluation + Plan note Future Appointments Appointment Date:09/25/2024 08:00:00 AM Scheduled Provider: Location:[facility] Appointment Type: Medicare Wellness Subsequent Future Scheduled Tests Laboratory* HgbA1c 12/21/22 * FSH and LH 05/20/23 * Insulin Free and Total 05/20/23 * TSH With T4fr Reflex 05/20/23 * TSH With T4fr Reflex 12/21/22 * Beta hCG Quantitative 05/20/23 * Cortisol 05/20/23 * Lipid Panel 12/21/22 * Prolactin Level 05/20/23 [facility] Evaluation + Plan noteExtracted from: Title:ED Note Author:Archie GUERRERO, Luis Roa te:11/29/23 Breast abscess (N61.1: Absce ss of the breast and nipple) Orders: acetaminophen-hydrocodone, 1 EA, Tab, Oral, Once, Stop date 11/28/23 20:34:00 EDT, STAT, Start date 11/28/23 20:34:00 EDT acetaminophen-hydrocodone, 1 tab(s), Oral, q6hr for pain for 2 day(s), 8 tab(s), Refill(s) 0, [facility] #[id number], 175, cm, 11/28/23 19:12:00 EDT, Height/Length Dosing, 139, kg, 11/28/23 19:12:00 EDT, Weight Dosing clindamycin, 300 mg = 1 cap(s), Oral, q6hr, X 7 day(s), # 28 cap(s), Refills(s) 0, Pharmacy: [facility] #[id number], 175, cm, 11/28/23 19:12:00 EDT, Height/Length Dosing, 139, kg, 11/28/23 19:12:00 EDT, Weight Dosing clindamycin, 300 mg = 2 cap(s), Cap, Oral, Once, Stop date 11/28/23 20:34:00 EDT, STAT, Start date 11/28/23 20:34:00 EDT, 11/28/23 20:34:00 EDT Future Appointments Appointment Date:01/13/2024 10:00:00 AM Scheduled Provider:KYUNG PAUL PA-C Location:[facility] Appointment Type:URO New Patient Appointment Date:09/25/2024 08:00:00 AM Scheduled Provider: Location:[facility] Appointment Type:FM Medicare Wellness Subsequent Future Scheduled Tests Laboratory* HgbA1c 12/21/22 * FSH and LH 05/20/23 * Insulin Free and Total 05/20/23 * TSH With T4fr Reflex 05/20/23 * TSH With T4fr Reflex 12/21/22 * Beta hCG Quantitative 05/20/23 * Cortisol 05/20/23 * Lipid Panel 12/21/22 * Prolactin Level 05/20/23 [facility]* Diagnosis Severe persistent asthma without complication Dyspnea, unspecified type Obesity, unspecified classification, unspecified obesity type, unspecified whether serious comorbidity present Allergic rhinitis due to pollen, unspecified seasonality Sleep apnea, unspecified type [facility]* Diagnosis Abnormal glucose- Primary Other abnormal glucose Class 3 severe obesity due to excess calories with serious comorbidity and body mass index (BMI) of 40.0 to 44.9 in adult (HCC) PCOS (polycystic ovarian syndrome) Polycystic ovaries [facility]* Diagnosis Class 3 severe obesity due to excess calories without serious comorbidity with body mass index (BMI) of 40.0 to 44.9 in adult (HCC)- Primary PCOS (polycystic ovarian syndrome) Polycystic ovaries Type 2 diabetes mellitus without complication, without long-term current use of insulin (HCC) [facility]* Diagnosis Psychological factors affecting morbid obesity (HCC)- Primary Psychic factors associated with diseases classified elsewhere Tobacco use disorder documented in [facility] encounter [facility] noteNo InformationNort [facility] Other Evaluation [facility]Nofre[facility] Other Evaluation note* Diagnosis Type 2 diabetes mellitus without complication, without long-term current use of insulin (HCC) Class 3 severe obesity with serious comorbidity and body mass index (BMI) of 40.0 to 44.9 in adult, unspecified obesity type (HCC) [facility] Diagnosis Type 2 diabetes mellitus without complication, without long-term current use of insulin (HCC) Class 3 severe obesity with serious comorbidity and body mass index (BMI) of 40.0 to 44.9 in adult, unspecified obesity type (HCC) documented in this encounter [facility] general Narrative - Reported* Type Description Date Medical History PCOS Medical History cROHN'S DISEASE Medical History fIBROMYALGIA Medical History BIPOLAR Medical History MIRGRAINES Medical History SPINAL STENOSIS Medical History ANXIETY DISORDER Medical History DM 2 Medical History ASTHMA Surgical History Laparoscopy x2,Tonsils Surgical History colpo 07-13-10 Surgical History colonoscopies several Surgical History tonsillectomy Surgical History back surgery (2017) Hospitalization History blood loss, rectal 04-16 [facility] Other History general Narrative - ReportedNort [facility] Other History of Present illness Narrative* Initial onset of obesity was at age 17. Patient developed PCOS, and gained a large amount of weightat age 17 * The patient was most successful with exercise and low carbohydrate diet. * The patient considers portion size as their dietary weakness. * Distribution of obesity is central. * Severity of obesity is Class 3 which is a BMI of greater than or equal to 40. * Procedure Preferred: a Demetra-en-Y gastric bypass. * The patient is a 36-year-old woman with a history of morbid obesity and a current BMI of 44 and a weight of 299 pounds who presents for evaluation for bariatric surgery. Her comorbidities include type 2 diabetes, hyperlipidemia, GERD, back pain, PCOS, clotting disorder, possibly factor V Leiden, DIETER using CPAP, and possible Crohn's disease. The patient receives most of her care in [place]. Her PCP is a nurse practitioner, Violet. The patient has been obese ever since she developed PCOS at age 17. At that time she gained a significant amount of weight and has continued to gain weight since then. She has tried diets in the past, but has been unsuccessful. Currently she is on Ozempic for weight loss as well as a new diagnosis of diabetes. Her most recent A1c was 6.5%. Prior to this she was on metformin for weight loss alone. She is interested in bariatric surgery in order to be healthier and to get her comorbidities under better control. * The patient's past surgical history includes 2 diagnostic laparoscopies for what was believed to beendometriosis. She has irregular periods. She is to have very heavy periods, but now she has very infrequent periods. She has also undergone spinal decompression surgery. She states that when she washaving a diagnostic laparoscopy she had issues with bleeding, and was seen by hematology. She believes that she may have factor V Leiden deficiency, however she states that she has never had any clots, and her main issue has been bleeding. * Additionally, the patient had a diagnosis of Crohn's disease from 25 02-. She was on medication during that period and this seemed to control her bloody bowel movements as well as frequent diarrhea. Within the last 12 months she has undergone EGD and colonoscopy and they are now questioning whether or not she does have Crohn's disease. She would like to see a new GI to get a second opinion now that they have taken her off of the medication. She is again having blood in her stool every few months as well as frequent abdominal and stomach cramps and worsening nausea. She attributes some ofher nausea and stomach cramps to the Ozempic. [facility] Work Phone: History of Present illness Narrative* Initial onset of obesity was at age 17. Patient developed PCOS, and gained a large amount of weightat age 17 * The patient was most successful with exercise and low carbohydrate diet. * The patient considers portion size as their dietary weakness. * Distribution of obesity is central. * Severity of obesity is Class 3 which is a BMI of greater than or equal to 40. * Procedure Preferred: a Demetra-en-Y gastric bypass. * The patient is a 36-year-old woman with a history of morbid obesity and a current BMI of 44 and a weight of 299 pounds who presents for evaluation for bariatric surgery. Her comorbidities include type 2 diabetes, hyperlipidemia, GERD, back pain, PCOS, clotting disorder, possibly factor V Leiden, DIETER using CPAP, and possible Crohn's disease. The patient receives most of her care in [place]. Her PCP is a nurse practitioner, Violet. The patient has been obese ever since she developed PCOS at age 17. At that time she gained a significant amount of weight and has continued to gain weight since then. She has tried diets in the past, but has been unsuccessful. Currently she is on Ozempic for weight loss as well as a new diagnosis of diabetes. Her most recent A1c was 6.5%. Prior to this she was on metformin for weight loss alone. She is interested in bariatric surgery in order to be healthier and to get her comorbidities under better control. * The patient's past surgical history includes 2 diagnostic laparoscopies for what was believed to beendometriosis. She has irregular periods. She is to have very heavy periods, but now she has very infrequent periods. She has also undergone spinal decompression surgery. She states that when she washaving a diagnostic laparoscopy she had issues with bleeding, and was seen by hematology. She believes that she may have factor V Leiden deficiency, however she states that she has never had any clots, and her main issue has been bleeding. * Additionally, the patient had a diagnosis of Crohn's disease from 25 02-. She was on medication during that period and this seemed to control her bloody bowel movements as well as frequent diarrhea. Within the last 12 months she has undergone EGD and colonoscopy and they are now questioning whether or not she does have Crohn's disease. She would like to see a new GI to get a second opinion now that they have taken her off of the medication. She is again having blood in her stool every few months as well as frequent abdominal and stomach cramps and worsening nausea. She attributes some ofher nausea and stomach cramps to the Ozempic. [address] Work Phone: History of Present illness Narrative* Initial onset of obesity was at age 17. Patient developed PCOS, and gained a large amount of weightat age 17 * The patient was most successful with exercise and low carbohydrate diet. * The patient considers portion size as their dietary weakness. * Distribution of obesity is central. * Severity of obesity is Class 3 which is a BMI of greater than or equal to 40. * Procedure Preferred: a Demetra-en-Y gastric bypass. * The patient is a 36-year-old woman with a history of morbid obesity and a current BMI of 44 and a weight of 299 pounds who presents for evaluation for bariatric surgery. Her comorbidities include type 2 diabetes, hyperlipidemia, GERD, back pain, PCOS, clotting disorder, possibly factor V Leiden, DIETER using CPAP, and possible Crohn's disease. The patient receives most of her care in [place]. Her PCP is a nurse practitioner, Violet. The patient has been obese ever since she developed PCOS at age 17. At that time she gained a significant amount of weight and has continued to gain weight since then. She has tried diets in the past, but has been unsuccessful. Currently she is on Ozempic for weight loss as well as a new diagnosis of diabetes. Her most recent A1c was 6.5%. Prior to this she was on metformin for weight loss alone. She is interested in bariatric surgery in order to be healthier and to get her comorbidities under better control. * The patient's past surgical history includes 2 diagnostic laparoscopies for what was believed to beendometriosis. She has irregular periods. She is to have very heavy periods, but now she has very infrequent periods. She has also undergone spinal decompression surgery. She states that when she washaving a diagnostic laparoscopy she had issues with bleeding, and was seen by hematology. She believes that she may have factor V Leiden deficiency, however she states that she has never had any clots, and her main issue has been bleeding. * Additionally, the patient had a diagnosis of Crohn's disease from 25 02-. She was on medication during that period and this seemed to control her bloody bowel movements as well as frequent diarrhea. Within the last 12 months she has undergone EGD and colonoscopy and they are now questioning whether or not she does have Crohn's disease. She would like to see a new GI to get a second opinion now that they have taken her off of the medication. She is again having blood in her stool every few months as well as frequent abdominal and stomach cramps and worsening nausea. She attributes some ofher nausea and stomach cramps to the Ozempic. [facility] Work Phone: History of Present illness Narrative* Initial onset of obesity was at age 17. Patient developed PCOS, and gained a large amount of weightat age 17 * The patient was most successful with exercise and low carbohydrate diet. * The patient considers portion size as their dietary weakness. * Distribution of obesity is central. * Severity of obesity is Class 3 which is a BMI of greater than or equal to 40. * Procedure Preferred: a Demetra-en-Y gastric bypass. * The patient is a 36-year-old woman with a history of morbid obesity and a current BMI of 44 and a weight of 299 pounds who presents for evaluation for bariatric surgery. Her comorbidities include type 2 diabetes, hyperlipidemia, GERD, back pain, PCOS, clotting disorder, possibly factor V Leiden, DIETER using CPAP, and possible Crohn's disease. The patient receives most of her care in [place]. Her PCP is a nurse practitioner, Violet. The patient has been obese ever since she developed PCOS at age 17. At that time she gained a significant amount of weight and has continued to gain weight since then. She has tried diets in the past, but has been unsuccessful. Currently she is on Ozempic for weight loss as well as a new diagnosis of diabetes. Her most recent A1c was 6.5%. Prior to this she was on metformin for weight loss alone. She is interested in bariatric surgery in order to be healthier and to get her comorbidities under better control. * The patient's past surgical history includes 2 diagnostic laparoscopies for what was believed to beendometriosis. She has irregular periods. She is to have very heavy periods, but now she has very infrequent periods. She has also undergone spinal decompression surgery. She states that when she washaving a diagnostic laparoscopy she had issues with bleeding, and was seen by hematology. She believes that she may have factor V Leiden deficiency, however she states that she has never had any clots, and her main issue has been bleeding. * Additionally, the patient had a diagnosis of Crohn's disease from 25 02-. She was on medication during that period and this seemed to control her bloody bowel movements as well as frequent diarrhea. Within the last 12 months she has undergone EGD and colonoscopy and they are now questioning whether or not she does have Crohn's disease. She would like to see a new GI to get a second opinion now that they have taken her off of the medication. She is again having blood in her stool every few months as well as frequent abdominal and stomach cramps and worsening nausea. She attributes some ofher nausea and stomach cramps to the Ozempic. [facility] Work Phone: Hospital course Narrative No data available for this section [facility] No data available for this section [facility] No data available for this section [facility] Summary Purpose Family History No Family History Records FoundNo Family History Records FoundNo Family History Records FoundNo Family History Records Found No data available for this section No data available for this section No data available for this section No data available for this section No data available for this section No data available for this section No data available for this section No data available for this section No data available for this section No data available for this section No Family History Records FoundNo Family History Records Found No data available for this section No data available for this section No Family History Records Found Advance Directives No Advanced Directives Records FoundDocuments on File Type Date Recorded Patient Apron Operator Expl anation Advance Directive(s) Chief Complaint * The patient is being seen initial visit. * An interactive audio and video telecommunication system which permits real time communications between the patient (at the originating site) and provider (at the distant site) was utilized to providethis telehealth service. * Verbal consent was requested and obtained from ALMA DELIA PEARL on this date, 11/11/2021 08:30 AM , for a telehealth visit. * Initial WLS consult * The patient is being seen initial visit. * An interactive audio and video telecommunication system which permits real time communications between the patient (at the originating site) and provider (at the distant site) was utilized to providethis telehealth service. * Verbal consent was requested and obtained from ALMA DELIA PEARL on this date, 11/11/2021 08:30 AM , for a telehealth visit. * Initial WLS consult * The patient is being seen initial visit. * An interactive audio and video telecommunication system which permits real time communications between the patient (at the originating site) and provider (at the distant site) was utilized to providethis telehealth service. * Verbal consent was requested and obtained from ALMA DELIA PEARL on this date, 11/11/2021 08:30 AM , for a telehealth visit. * Initial WLS consult * The patient is being seen initial visit. * An interactive audio and video telecommunication system which permits real time communications between the patient (at the originating site) and provider (at the distant site) was utilized to providethis telehealth service. * Verbal consent was requested and obtained from ALMA DELIA PEARL on this date, 11/11/2021 08:30 AM , for a telehealth visit. * Initial WLS consult Reason for Referral Specialty Diagnoses / Procedures Referred By Robert baez Referred To Contact Diagnoses Class 3 severe obesity due to excess calories with serious comorbidity and body mass index (BMI) of 40.0 to 44.9 in adult (HCC) Procedures CONSULT [facility] OFFICE/OUTPATIENT NEW HIGH MDM 60-74 MINUTES Jackson Cox MD [address] [place] [address] Referral ID Status Reason Start Date Expiration Date Visits Requested Visits Authorized [id number] Pending Review PCP Requested Referral 2 03/31/2023 1 1 Additional Source Comments INFORMATION SOURCE (unrecogn ized section and content) DATE CREATED AUTHOR 10/31/2017 [facility] DATE CREATED AUTHOR AUTHOR'S ORGANIZ ATION 05/15/2021 [facility] DATE CREATED AUTHOR AUTHOR'S ORGANIZ ATION 11/11/2021 [facility] DATE CREATED AUTHOR AUTHOR'S ORGANIZ ATION 06/12/2022 [facility] DATE CREATED AUTHOR AUTHOR'S ORGANIZ ATION 11/05/2023 [facility] DATE CREATED AUTHOR AUTHOR'S ORGANIZ ATION 11/27/2023 [facility] Specialists EPIC DATE CREATED AUTHOR AUTHOR'S ORGANIZ ATION 12/01/2023 [facility] Source Comments (unrecognize d section and content) In the event this informatio n is protected by the Federal Confidentiality of Alcohol and Drug Abuse Patient Records regulations: The Federal rules restrict any use of the information to criminally investigate or prosecute any alcohol or drug abuse patient.[facility] the event this information is protected by the Federal Confidentiality of Alcohol and Drug Abuse Patient Records regulations: The Federal rules restrict any use of the information to criminally investigate or prosecute any alcohol or drug abuse patient.[facility] the event this information is protected by the Federal Confidentiality of Alcohol and Drug Abuse Patient Records regulations: The Federal rules restrict any use of the information to criminally investigate or prosecute any alcohol or drug abuse patient.[facility] HospitalIn the event this information is protected by the Federal Confidentiality of Alcohol and Drug Abuse Patient Records regulations: The Federal rules restrict any use of the information to criminally investigate or prosecute any alcohol or drug abuse patient.[facility] HospitalIn the event this information is protected by the Federal Confidentiality of Alcohol and Drug Abuse Patient Records regulations: The Federal rules restrict any use of the information to criminally investigate or prosecute any alcohol or drug abuse patient.[facility] HospitalIn the event this information is protected by the Federal Confidentiality of Alcohol and Drug Abuse Patient Records regulations: The Federal rules restrict any use of the information to criminally investigate or prosecute any alcohol or drug abuse patient.[facility] HospitalIn the event this information is protected by the Federal Confidentiality of Alcohol and Drug Abuse Patient Records regulations: The Federal rules restrict any use of the information to criminally investigate or prosecute any alcohol or drug abuse patient.[facility] HospitalIn the event this information is protected by the Federal Confidentiality of Alcohol and Drug Abuse Patient Records regulations: The Federal rules restrict any use of the information to criminally investigate or prosecute any alcohol or drug abuse patient.[facility] HospitalIn the event this information is protected by the Federal Confidentiality of Alcohol and Drug Abuse Patient Records regulations: The Federal rules restrict any use of the information to criminally investigate or prosecute any alcohol or drug abuse patient.[facility] HospitalIn the event this information is protected by the Federal Confidentiality of Alcohol and Drug Abuse Patient Records regulations: The Federal rules restrict any use of the information to criminally investigate or prosecute any alcohol or drug abuse patient.[facility] HospitalIn the event this information is protected by the Federal Confidentiality of Alcohol and Drug Abuse Patient Records regulations: The Federal rules restrict any use of the information to criminally investigate or prosecute any alcohol or drug abuse patient.[facility] Reason for Visit (unrecogniz ed section and content) Reason Comments Refill Request Reason Comments Consult Reason Comments Prep for virtual visit Reason Comments Obesity Medical Weight Management Non-insulin Dependent Diabetes Mellitus Reason Comments Obesity Reason Comments Smoking Cessation Care Teams (unrecognized sec tion and content) Machine Attendant Relationship Specialty Start Date End Date Keila Lynch PCP - General Family Practice 04/12/16 David Eubanks Referring Neurology 02/11/20 Machine Attendant Relationship Specialty Start Date End Date Keila Lynch PCP - General Family Medicine 04/12/16 David Eubanks Referring Neurology 02/11/20 Machine Attendant Relationship Specialty Start Date End Date Keila Lynch PCP - General Family Medicine 04/12/16 David Eubanks Referring Neurology 02/11/20 Machine Attendant Relationship Specialty Start Date End Date Keila Lynch PCP - General Family Medicine 04/12/16 David Eubanks Referring Neurology 02/11/20 Machine Attendant Relationship Specialty Start Date End Date Keila Lynch PCP - General Family Medicine 04/12/16 David Eubanks Referring Neurology 02/11/20 Machine Attendant Relationship Specialty Start Date End Date Keila Lynch PCP - General Family Medicine 04/12/16 David Eubanks Referring Neurology 02/11/20 Machine Attendant Relationship Specialty Start Date End Date Keila Lynch PCP - General Family Medicine 04/12/16 David Eubanks Referring Neurology 02/11/20 Machine Attendant Relationship Specialty Start Date End Date Keila Lynch PA-C PCP - General Family Medicine 04/12/16 David Eubanks DO Referring Neurology 02/11/20 Machine Attendant Relationship Specialty Start Date End Date Keila Lynch PA-C PCP - General Family Medicine 04/12/16 David Eubanks DO Referring Neurology 02/11/20 FOR RECORDS PERTAINING TO PATIENTS WHO ARE OR HAVE BEEN ENROLLED IN A CHEMICAL DEPENDENCY/SUBSTANCEABUSE PROGRAM, SOME INFORMATION MAY BE OMITTED. This clinical summary was aggregated from multiple sources. Caution should be exercised in using it in the provision of clinical care. This summary normalizes information from multiple sources, and as a consequence, information in this document may materially change the coding, format and clinical context of patient data. In addition, data may be omitted in some cases. CLINICAL DECISIONS SHOULD BE BASED ON THE PRIMARY CLINICAL RECORDS. [employer] [facility]. provides no warranty or guarantee of the accuracy or completeness of information in this document.
== END 2023-12-01 08:59 | disposition home or self-care (01) ==
PROVIDERS: Visit Provider Physician Assistant
DX: L02.213 Cutaneous abscess of chest wall (principal); N63.0 Unspecified lump in unspecified breast; N64.4 Mastodynia; R22.2 Localized swelling, mass and lump, trunk
CPT/HCPCS: 76604; 87070; 87075

== ENCOUNTER 2023-12-01 17:58 | Outpatient (REF) | payer MEDICARE, MEDICAID, SELFPAY ==
--- OUTSIDE RECORDS SUMMARY | 2023-12-01 18:06 | XMS_ITS | CCD ---
Author Organization [facility] Inform ion Partnership [facility] Care Team Providers Care System Manager Name Role Phone JAMES BLACKMON Unavailable Unavailable JAMES BLACKMON Unavailable Unavailable RADHA PRESTON Unavailable Unavailable KEILA LYNCH Unavailable Unavailable EDEN, ANTON Unavailable Unavailable HAY, ANTON Unavailable Unavailable JUAN DIEGO MANZANARES Unavailable Unavailable STRUS, SHAJI Unavailable Unavailable STRUS, SHAJI Unavailable Unavailable STRUS, SHAJI Unavailable Unavailable Lacey LAZO Primary Care Physician Sharonda COTREZ Unavailable Kyung Mayorga Unavailable Unavailable Keila Lynch Primary Care Provider David Eubanks Unavailable James Rodriguez V Unavailable Nerissa Rivera Primary Care Physician Unavail able Keila Lynch Primary Care Provider David Eubanks Unavailable NERISSA RIVERA Primary Care Physician Kem Patel Attending Unavailable Kem Patel Admitting Unavailable Lacey Lazo Primary Care Unavailable Kanu Rudolph Attending Unavailable Kanu Rudolph Admitting Unavailable Lacey Lazo Primary Care Unavailable Michael Guzman Unavailable SAUD BLUM Primary Care Physician NONE, XXXX Primary Care Physician Unavailab humberto MICHEL, GENERIC Primary Care Physician Unavailab Irasema Masters Primary Care Physician Keila Lynch PA-C Primary Care Provider David Eubanks DO Unavailable JHON PIERCE Attending Unavailable SYED KEILA JEAN Primary [...] (1 source) Egg Food Allergy Vomiting (disorder) [facility] Latex (1 source) Latex Substance Allergy Eruption of skin (disorder) [facility] lurasidone (1 source) lurasidone; Translations: [lurasidone] Drug Allergy Intolerance, function (observable entity) [facility] Opioid Agonists (2 sources) Codeine; Translations: [codeine] Drug Allergy Childhood, function (observable entity) [facility] Penicillins (antibiotic) (1 source) Penicillin; Translations: [penicillin] Drug Allergy Childhood, function (observable entity) [facility] Phenazopyridine (1 source) Phenazopyridine; Translations: [phenazopyridine] Drug Allergy Pain [facility] Serotonin-1b and Serotonin-1d Receptor Agonists (1 source) SUMAtriptan; Translations: [sumatriptan] Drug Allergy Respiratory function (observable entity), Tight chest (finding) [facility] (3 sources) codeine; Translations: [CODEINE] Drug Allergy 08-17-19 06 [facility] Repository (2 sources) egg extract; Translations: [EGG] Drug Allergy 07-11-19 [facility] Repository (20 sources) Latex; Translations: [LATEX] Drug allergy (disorder) 08-17-19 Eruption of skin (disorder) [facility] Repository (3 sources) morphine; Translations: [MORPHINE] Drug Allergy 05-23-19 09 [facility] Repository (2 sources) Penicillins; Translations: [PENICILLINS] Drug allergy (disorder) 11-16-19 07 [facility] Repository (2 sources) phenazopyridine; Translations: [Pyridium] Drug Allergy [facility] Rep[facility] (20 sources) Codeine; Translations: [codeine] Drug Allergy 08-17-19 Childhood, function (observable entity) [facility] (20 sources) Egg; Translations: [Eggs] Food allergy Vomiting (disorder) [facility] (20 sources) lurasidone; Translations: [lurasidone] Drug Allergy 03-31-20 22 Intolerance, function (observable entity), Other: See Comments, Intolerance [facility] (20 sources) Morphine; Translations: [morphine] Drug Allergy 05-23-19 09 rash, SOB, Unknown [facility] (20 sources) Penicillin; Translations: [penicillin] Drug Allergy Childhood, function (observable entity) [facility] (20 sources) Phenazopyridine; Translations: [phenazopyridine] Drug Allergy Pain, Unknown [facility] (20 sources) SUMAtriptan; Translations: [sumatriptan] Drug Allergy Respiratory function (observable entity), Tight chest (finding) [facility] (20 sources) Dairy 1 Drug intolerance unknown [facility] Comment on above: splenda molasses dairy high fructose corn syrup eggs Reactions of the above unkown. splenda molasses dairy high fructose corn syrup eggs Reactions of the above unkown. (11 sources) egg extract Drug Allergy 07-11-19 Rash [facility] Work Phone: (11 sources) Latex Propensity to adverse reactions 08-17-19 Rash, Swelling [facility] (1 source) Penicillins Propensity to adverse reactions 11-16-19 07 [facility] (12 sources) Phenazopyridine; Translations: [PHENAZOPYRIDINE HCL] Drug Allergy 10-31-19 08 [facility] (12 sources) SUMAtriptan; Translations: [SUMATRIPTAN SUCCINATE] Drug Allergy 05-16-19 10 [facility] (12 sources) Erythromycin; Translations: [ERYTHROMYCIN] Drug Allergy 03-31-20 Other: See Comments [facility] (10 sources) Penicillins Propensity to adverse reactions 11-16-19 [facility] (11 sources) semaglutide; Translations: [SEMAGLUTIDE] Drug Allergy 03-31-20 GI Upset [facility] (1 source) Codeine Drug Allergy 07-08-19 [facility] Repository (1 source) Morphine Drug Allergy 07-08-19 [facility] Repository (1 source) Penicillins Drug allergy (disorder) 07-08-19 [facility] Repository (1 source) Phenazopyridine Drug Allergy 07-08-19 [facility] Repository (1 source) SUMAtriptan Drug Allergy 07-08-19 [facility] Repository (3 sources) codiene Propensity to adverse reactions Unknown [facility] Other (1 source) Ciprofloxacin; Translations: [ciprofloxacin] Drug Allergy [facility] Repository (1 source) Ciprofloxacin; Translations: [Cipro] Drug Allergy [facility] Repository (1 source) Dairy; Translations: [Dairy] Propensity to adverse reactions (disorder) [facility] Repository Medications Current Medications Medication Drug Class(es) Dates Sig (Normalized) Sig (Original) 0.5 ML semaglutide 0.5 MG/ML Auto-Injector (3 sources) Start: 07-23-2021 End: 09-17-2021 inject 0.25 mg by subcutaneous injection every week Wegovy (0.25 mg dose) subcutaneous solution 0.25 mg, SubCutaneous, qWeek, X 4 week(s), # 4 EA, Refills(s) 1, Pharmacy: [facility] #[id number], 175, cm, 07/23/21 10:50:00 EDT, Height/Length Dosing, [...] qWeek, # 4 EA, Refills(s) 3, Pharmacy: [facility] #[id number], 175, cm, 11/24/21 9:21:00 EDT, Height/Length Dosing, 136.3, kg, 11/24/21 9:21:00 EDT, Weight Dosing Start Date: 12/08/21 Status: Ordered Start: 10-15-2021 Ozempic (1 mg dose) 4 mg/3 mL subcutaneous solution 1 mg, SubCutaneous, qWeek, To be filled after 0.5 mg dose is filled, # 1 EA, Refills(s) 11, Pharmacy: [facility]/pharmacy #[id number], 175.3, cm, 09/30/21 11:01:00 EDT, Height/Length Dosing, 136.5, kg, 09/30/21 11:01:00 EDT, Weight Dosing Start Date: 10/15/21 Status: Ordered acetaminophen 325 mg / HYDROcodone bitartrate 5 mg oral tablet (2 sources) Opioid Agonist Start: 11-28-2023 End: 11-30-2023 Westfield 325 mg-5 mg oral tablet 1 tab(s), Oral, q6hr for pain for 2 day(s), 8 tab(s), Refill(s) 0, [facility] #[id number], 175, cm, 11/28/23 19:12:00 EDT, Height/Length Dosing, 139, kg, 11/28/23 19:12:00 EDT, Weight Dosing Start Date: 11/28/23 Stop Date: 11/30/23 Status: Ordered Albuterol (Eqv-ProAir HFA) 90 mcg/inh inhalation aerosol (12 sources) Start: 03-14-2023 take 2 puff(s) by inhalation every six hours Albuterol (Eqv-ProAir HFA) 90 mcg/inh inhalation aerosol 2 puff(s), Inhalation, q6hr, 18 gm, Refill(s) 4, [facility] #[id number], 173, cm, 03/14/23 16:23:00 EST, Height/Length Dosing, [...] q6hr for wheezing, 18 gram, Refill(s) 11, [facility] #[id number], 176, cm, 03/25/21 10:04:00 EST, Height/Length Dosing, [...] day(s), # 6 tab(s), Refills(s) 0, Pharmacy: [facility] #[id number], 173, cm, 07/01/23 12:09:00 EST, Height/Length Dosing, 137, kg, 07/01/23 12:09:00 EST, Weight Dosing Start Date: 07/01/23 Stop Date: 07/06/23 Status: Ordered Start: 03-14-2023 End: 03-19-2023 azithromycin 250 mg Tab = 1 packet(s), Oral, As Directed, as directed on package labeling, X 5 day(s), # 6 tab(s), Refills(s) 0, Pharmacy: [facility] #[id number], 173, cm, 03/14/23 16:23:00 EST, Height/Length Dosing, 132.2, kg, 03/14/23 16:23:00 EST, Weight Dosing Start Date: 03/14/23 Stop Date: 03/19/23 Status: Ordered bifidobacterium infantis 4 mg oral capsule (6 sources) Start: 06-22-2021 take 1 capsule by mouth once daily Align 4 mg oral capsule 4 mg = 1 cap(s), Oral, Daily, # 28 cap(s), Refills(s) 2, Pharmacy: [facility] #[id number], 175, cm, 06/22/21 13:23:00 EST, Height/Length [...] Daily, # 30 tab(s), Refills(s) 0, Pharmacy: [facility] #[id number], 175, cm, 10/26/19 8:51:00 EDT, Height/Length Measured, [...] day(s), # 30 cap(s), Refills(s) 0, Pharmacy: [facility] #[id number], 175, cm, 11/29/23 20:31:00 EDT, Height/Length Dosing, [...] day(s), # 28 cap(s), Refills(s) 0, Pharmacy: [facility] #[id number], 175, cm, 11/28/23 19:12:00 EDT, Height/Length Dosing, 139, kg, 11/28/23 19:12:00 EDT, Weight Dosing Start Date: 11/28/23 Stop Date: 12/05/23 Status: Ordered Clotrimazole (6 sources) Azole Antifungal Start: 06-22-2021 clotrimazole Top 1% Crm 1 carlo, Topical, BID, 45 gram, Refill(s) 0, [facility] #16, 175, cm, 06/22/21 13:23:00 EST, Height/Length [...] QID, # 12 tab(s), Refills(s) 0, Pharmacy: [facility] #[id number], 175, cm, 02/06/21 19:35:00 EDT, Height/Length Dosing, [...] day(s), # 4 EA, Refills(s) 5, Pharmacy: [facility] #[id number], 175, cm, 12/31/21 19:57:00 EDT, Height/Length Dosing, [...] Daily, # 14 tab(s), Refills(s) 0, Pharmacy: [facility]/pharmacy #[id number], 175, cm, 05/23/22 6:53:00 EST, Height/Length Dosing, 139.2, kg, 05/23/22 6:53:00 EST, Weight Dosing Start Date: 05/23/22 Status: Ordered Flonase 0.05 mg/inh nasal spray (6 sources) Start: 12-15-2018 Flonase 0.05 m g/inh nasal spray 2 spray(s), Nasal, Daily, 16 gram, Refill(s) 5, each nostril, [facility] #[id number] Start Date: 12/15/18 Status: Ordered fluticasone propionate [...] Daily, 16 gram, Refill(s) 5, each nostril, [facility] #[id number] Start Date: 12/15/18 Status: Ordered Comment on [...] Comment on above: INHALE 2 PUFFS BY [facility] TWICE DAILY DIRECTED 1 ml galcanezumab-gnlm 120 [...] Ordered Start: 03-22-2022 take 1 capsule by [facility] once daily at bedtime as needed hydrOXYzine pamoate (VISTARIL) 25 mg capsule TAKE 1 CAPSULE BY MOUTH EVERY DAY AT BEDTIME NEEDED 0 03/22/2022 Active Comment on above: TAKE 1 CAPSULE BY [facility] EVERY DAY AT BEDTIME NEEDED Imodium A-D EZ Chews 2 mg oral tablet, chewable (9 sources) Start: 10-21-2022 Imodium A-D EZ Chews 2 mg oral tablet, chewable 2 mg, 1 tab(s), Chewed, q4hr Diarrhea, 12 tab(s), Refill(s) 0, [facility]/pharmacy #[id number], 173, cm, 10/21/22 16:01:00 EDT, [...] Chewed, q4hr Diarrhea, 12 tab(s), Refill(s) 0, [facility]/pharmacy #[id number], 173, cm, 10/21/22 16:01:00 EDT, Height/Length Dosing, 139, kg, 10/21/22 16:01:00 EDT, Weight Dosing Start Date: 10/21/22 Status: Ordered Start: 02-06-2021 take 1 tablet by zenobia th every four hours as needed Imodium A-D 2 mg oral tablet 2 mg = 1 tab(s), Oral, q4hr, PRN for loose stools, # 12 tab(s), Refills(s) 0, Pharmacy: [facility] #[id number], 175, cm, 02/06/21 19:35:00 EDT, Height/Length Dosing, [...] day(s), # 15 tab(s), Refills(s) 0, Pharmacy: [facility] #[id number], 175, cm, 12/31/21 19:57:00 EDT, Height/Length Dosing, [...] day(s), # 120 tab(s), Refills(s) 3, Pharmacy: [facility] #[id number], 176, cm, 08/25/21 14:44:00 EDT, Height/Length Dosing, [...] day(s), # 28 tab(s), Refills(s) 0, Pharmacy: [facility] #[id number], 173, cm, 07/25/23 18:35:00 EDT, Height/Length Dosing, [...] qPM, # 30 tab(s), Refills(s) 1, Pharmacy: [facility] #16, 175, cm, 06/22/21 13:23:00 EST, Height/Length [...] pain, # 20 tab(s), Refills(s) 0, Pharmacy: [facility] #[id number], 175, cm, 11/29/23 20:31:00 EDT, Height/Length Dosing, 139, kg, 11/29/23 20:31:00 EDT, Weight Dosing Start Date: 11/29/23 Status: Ordered Non-Formulary Medication (17 sources) Start: 07-07-2020 Non-Formulary Medication See Instructions, L Tyrosine 1 tablet daily Start Date: 07/07/20 Status: Ordered nystatin [id number] unt/ml topical cream (13 sources) Polyene Antifungal Start: 12-21-2022 nystatin Top 100,000 units/g Crm 15 gram 1 carlo, Topical, BID, 30 gram, Refill(s) 1, [facility] #[id number], 173, cm, 12/21/22 13:04:00 EDT, Height/Length Dosing, 137.9, kg, 12/21/22 13:04:00 EDT, Weight Dosing Start Date: 12/21/22 Status: Ordered omeprazole 40 mg delayed release oral capsule (20 sources) Proton Pump Inhibitor Start: 06-23-2020 take 1 capsule by mouth twice daily omeprazole 10 mg Cap-EC 10 mg = 1 cap(s), Oral, BID, # 180 caplet(s), Refills(s) 1, Pharmacy: [facility] #[id number], 175, cm, 06/05/20 9:59:00 EST, Height/Length Dosing, 133.3, kg, 06/05/20 9:59:00 EST, Weight Dosing Start Date: 06/23/20 Status: Ordered Start: 03-26-2020 take 1 capsule by [facility] twice daily 30 minutes before breakfast omeprazole [...] BID, # 180 caplet(s), Refills(s) 1, Pharmacy: [facility] #[id number], 175, cm, 06/05/20 9:59:00 EST, Height/Length Dosing, [...] Nausea/Vomiting, # 6 EA, Refills(s) 0, Pharmacy: [facility] #[id number], 173, cm, 11/29/23 13:57:00 EST, Height/Length Dosing, 134.1, kg, 04/06/23 13:57:00 EST, Weight Dosing Start Date: 04/06/23 Status: Ordered Start: 05-23-2022 take 25 mg rectal ro [place] every six hours as needed for nausea Phenergan 25 mg Supp 25 mg = 1 supp, Rectal, q6hr, PRN Nausea/Vomiting, # 6 EA, Refills(s) 0, Pharmacy: [facility] #[id number], 175, cm, 05/23/22 6:53:00 EST, Height/Length [...] mg, SubCutaneous, qWeek, 1 EA, Refill(s) 0, [facility] #[id number], 175.3, cm, 09/30/21 11:01:00 EDT, Height/Length Dosing, 136.5, kg, 09/30/21 11:01:00 EDT, Weight Dosing Start Date: 10/15/21 Status: Ordered Start: 08-25-2021 inject 0.25 mg by esposito bcutaneous injection every week Ozempic 2 mg/1.5 mL (0.25 mg or 0.5 mg dose) subcutaneous solution 0.25 mg, SubCutaneous, qWeek, 1 EA, Refill(s) 0, [facility] #[id number], 176, cm, 08/25/21 14:44:00 EDT, Height/Length Dosing, [...] day(s), # 28 tab(s), Refills(s) 0, Pharmacy: [facility]/pharmacy #[id number], 175, cm, 05/23/22 6:53:00 EST, Height/Length Dosing, 139.2, kg, 05/23/22 6:53:00 EST, Weight Dosing Start Date: 05/23/22 Stop Date: 05/30/22 Status: Ordered sulfamethoxazole 800 mg / trimethoprim 160 mg oral tablet (1 source) Dihydrofolate Reductase Inhibitor Antibacterial, Sulfonamide Antimicrobial Start: 024 Bactrim D.S. 800 mg-160 mg Tab 1 tab(s), Oral, BID, 20 tab(s), Refill(s) 0, [facility] #[id number], 175, cm, 11/29/23 20:31:00 EDT, Height/Length Dosing, 139, kg, 11/29/23 20:31:00 EDT, Weight Dosing Start Date: 11/29/23 Status: Ordered Symbicort 160/4.5 inhalation aerosol with adapter (17 sources) Start: 022 Symbicort 160/4.5 inhalation aerosol with adapter 2 puff(s), Inhalation, BID, 1 EA, Refill(s) 0, rinse mouth and throat after use, [facility] #16, 175, cm, 06/22/21 13:23:00 EST, [...] TID, # 90 tab(s), Refills(s) 1, Pharmacy: [facility], 175, cm, 09/15/20 [...] Start: 02-11-2020 take 1 capsule by [facility] once daily verapamil 120 mg Cap-ER 120 [...] Nausea/Vomiting, # 30 tab(s), Refills(s) 0, Pharmacy: [facility] #[id number], 173, cm, 04/06/23 13:57:00 EST, Height/Length Dosing, 134.1, kg, 04/06/23 13:57:00 EST, Weight Dosing Start Date: 04/06/23 Status: Ordered Start: 10-21-2022 take 1 tablet by zenobia th every eight hours Zofran ODT 4 mg Tab-Dis 4 mg = 1 tab(s), Oral, q8hr, # 10 tab(s), Refills(s) 0, Pharmacy: [facility]/pharmacy #[id number], 173, cm, 10/21/22 16:01:00 EDT, Height/Length Dosing, 139, kg, 10/21/22 16:01:00 EDT, Weight Dosing Start Date: 10/21/22 Status: Ordered Start: 05-23-2022 take 1 tablet by z[facility]obia th every eight hours Zofran ODT 4 mg Tab-Dis 4 mg = 1 tab(s), Oral, q8hr, # 12 tab(s), Refills(s) 0, Pharmacy: [facility]/pharmacy #[id number], 175, cm, 05/23/22 6:53:00 EST, Height/Length Dosing, 139.2, kg, 05/23/22 6:53:00 EST, Weight Dosing Start Date: 05/23/22 Status: Ordered Start: 02-06-2021 take 1 tablet by zenobia th every eight hours Zofran ODT 4 mg Tab-Dis 4 mg = 1 tab(s), Oral, q8hr, # 10 tab(s), Refills(s) 0, Pharmacy: [facility] #[id number], 175, cm, 02/06/21 19:35:00 EDT, Height/Length Dosing, [...] Inhalation, q4hr Wheezing, 30 EA, Refill(s) 11, [facility] #[id number], 176, cm, 03/25/21 10:04:00 EST, Height/Length Dosing, 136.6, kg, 03/25/21 10:04:00 EST, Weight Dosing Start Date: 03/25/21 Status: Ordered Start: 03-25-2021 take 30 doses by inh alation every four hours albuterol 0.083% Inh Padma 3 mL 0.083% - 3mL dosing units, Inhalation, q4hr Wheezing, 30 EA, Refill(s) 11, [facility] #[id number], 176, cm, 03/25/21 10:04:00 EST, Height/Length Dosing, [...] only takes 1 at this time. Not-Taking [id number] 0.3 ml EPINEPHrine 1 mg/ml auto-injector (9 [...] antibiotic, # 2 tab(s), Refills(s) 1, Pharmacy: [facility] #[id number], 173, cm, 07/01/23 12:09:00 EST, Height/Length Dosing, [...] See Instructions, 1 EA, 0, Nebulizer Machine, [facility] #[id number], Supply, 175, cm, 07/02/21 10:47:00 EST, Height/Length [...] kit(s), 0, Nebulizer Tubing and Mouthpiece Kit, [facility] #[id number], Supply, 175, cm, 07/02/21 10:47:00 EST, Height/Length [...] days, # 18 tab(s), Refills(s) 0, [id number], 175, cm, 12/31/21 19:57:00 EDT, Height/Length Do... Start Date: 02/11/22 Status: Ordered Start: 07-02-2021 predniSONE 20 mg Tab 20 mg = 1 tab(s), Oral, As Directed, Take three tabs by mouth for three days, then two tabs for three days, then one tab for three days, # 18 tab(s), Refills(s) 0, Pharmacy: [facility] #[id number], 175, cm, 07/02/21 10:47:00 EST, Height/Length Do... [...] current use of oral hypoglycemic medication; Translations: [systems eng (current) use of oral hypoglycemic drugs] Episodic [...] 2023 ED Clinical Summary ED Clinical Summary [place] [address] ED Clinical Summary Person Information Name: ALMA DELIA PEARL Param/[facility] Age: 38 Years : 1985 Sex: Female Language: Cypriot PCP: Irasema Love Marital Status: Phone: [phone] MRN: Visit Id: Visit Reason: Breast problem; [...] 11/29/2023 20:59:57 11/29/2023 20:59:57 11/29/2023 20:59:57 ADDRESS: [address] [place] [id number] PHYS DOC NOTES: MEDICAL INFORMATION: Prescriptions Given: New Medications [facility] #[id number], [address] [place], [place] [id number], [phone] cephalexin (Keflex 500 mg Cap) 1 Capsules [...] with No Changes Other Medications acetaminophen-hydroc odone ([place]field 325 mg-5 mg oral tablet) 1 Tablets [...] 0. PATIENT EDUCATION INFORMATION: Instructions: Cellulitis, Adult, Imqx-lg-Thac Follow up: With: Address: When: Irasema Zacarias [address] [place] [address] [place] [id number] [facility] ([employer] In 3 days 12/02/2023 Comments: Stop the clindamycin and start the Bactrim and Keflex. He can use naproxen every 12 hours as needed for pain in addition to pain medicine impression prescribed last night. Please follow-up with your primary care doctor for further evaluation management. Please return to the ED for any new or worsening symptoms. DIAGNOSIS: Cellulitis of left breast Normal [facility] ED Note-Physicianon 11-29-19 ED Note-Physician ED Note-Physician Basic Information Time Seen: Celena Dais DO 11/29/2023 20:31 Chief Complaint pt. c/o [...] and Complexity of Problems Differential Diagnosis: [] [facility] Data External documents reviewed: [] My EKG [...] day(s), # 30 cap(s), Refills(s) 0, Pharmacy: [facility] #[id number], 175, cm, 11/29/23 20:31:00 EDT, Height/Length Dosing, [...] pain, # 20 tab(s), Refills(s) 0, Pharmacy: [facility] #[id number], 175, cm, 11/29/23 20:31:00 EDT, Height/Length Dosing, 139, kg, 11/29/23 20:31:00 EDT, Weight Dosing sulfamethoxazole-tri methoprim, 1 tab(s), Oral, BID, 20 tab(s), Refill(s) [facility] #[id number], 175, cm, 11/29/23 20:31:00 EDT, Height/Length Dosing, [...] [employer] In 3 days 12/02/2023 EDT [address] [facility], [address] [place] [id number] Business (1) Additional Instructions: Stop the clindamycin and start the Bactrim and Keflex. He can use naproxen every 12 hours as needed for pain in addition to pain medicine impression prescribed last night. Please follow-up with your primary care doctor for further evaluation management. Please return to the ED for any new or worsening symptoms. 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 Normal [facility] Comment on above: Result Comment: Elec tronically [...] and Complexity of Problems Differential Diagnosis: [] [facility] Data External documents reviewed: [] My EKG [...] for 2 day(s), 8 tab(s), Refill(s) 0, [facility] #[id number], 175, cm, 11/28/23 19:12:00 EDT, Height/Length Dosing, 139, kg, 11/28/23 19:12:00 EDT, Weight Dosing clindamycin, 300 mg = 1 cap(s), Oral, q6hr, X 7 day(s), # 28 cap(s), Refills(s) 0, Pharmacy: [facility] #[id number], 175, cm, 11/28/23 19:12:00 EDT, Height/Length Dosing, [...] cap, 300 mg= 1 cap(s), Oral, q6hr [place]field 325 mg-5 mg oral tablet, 1 tab(s), Oral, q6hr, PRN Follow-up With When Contact Information Daron Hernandez In 3 days 12/01/2023 EDT Additional Instructions: Call for diagnosis based follow up [employer] In (more content not included)... Normal [facility] Comment on above: Result Comment: Elec tronically Signed By: Luis Almanza PA-C\.br\Date and Time Signed: 11/29/23 00:34 EDT\.br\Electronically Co-Signed By: Celena Dias DO\.br\Date and Time Co-Signed: 11/29/23 01:44 EDT ED Patient Summaryon 024 ED Patient Summary ED Patient Summary [place] [id number] Patient Discharge Instructions Person Information Name: ALMA DELIA PEARL Age: 38 Years Arrival Date: 11/29/2023 20:00:57 Discharge Diagnosis: Cellulitis of left breast Primary Care Physician: Irasema Love Provider Information Primary Provider: Celena Dias DO Advanced Animal Cytologist:None The exam and treatment you received in the Emergency Department were for an urgent problem and are not intended as complete care. It is important that you follow up with a doctor, nurse practitioner, or physician?s print shop assistant for ongoing care. If your symptoms [...] With: Address: When: Irasema Vaughn, [place] [address] Business (1) In 3 days 12/02/2023 Comments: [...] participating provider. Patient Education Materials: Cellulitis, Adult, Kwhq-rx-Hvwi A MESSAGE TO ALL PATIENTS REGARDING OPIOIDS PRESCRIPTION OPIOIDS: WHAT YOU NEED TO KNOW Prescription opioids can be used to help relieve aymcrkij-rb-wmgnyw pain and are often prescribed following a [...] toilet, follow (more content not included)... Normal [facility] ED Clinical Summaryon 2023 ED Clinical Summary ED Clinical Summary [address] [address] ED Clinical Summary Person Information Name: ALMA DELIA PEARL Param/[facility] Age: 38 Years : 1985 Sex: Female Language: Cypriot PCP: Irasema Love Marital Status: Phone: [phone] MRN: Visit Id: Visit Reason: Breast problem; [...] 11/28/2023 21:00:35 11/28/2023 21:00:35 ADDRESS: [address] [facility] [address] [facility] [id number] PHYS DOC NOTES: MEDICAL INFORMATION: Prescriptions Given: New Medications [id number], [address], [place] [id number], [phone] acetaminophen-hydroc odone ([place] 325 mg-5 mg oral tablet) 1 Tablets [...] Diarrhea. Refills: 0. magnesium oxide By Mouth. [facility] Prescription (lancets) lancets test daily E11.9. Refills: 3. [facility] Prescription (na) provide patient with lancets and [...] day. pregab (more content not included)... Normal [facility] ED Patient Summaryon 024 ED Patient Summary ED Patient Summary [place] [address] Patient Discharge Instructions Person Information Name: ALMA DELIA PEARL Age: 38 Years Arrival Date: 11/28/2023 19:04:11 Discharge Diagnosis: Breast abscess Primary Care Physician: Irasema Love Provider Information Primary Provider: Celena Dias DO Advanced Animal Cytologist:None The exam and treatment you received in the Emergency Department were for an urgent problem and are not intended as complete care. It is important that you follow up with a doctor, nurse practitioner, or physician?s print shop assistant for ongoing care. If your symptoms [...] up With: Address: When: Urban [facility] [address], [address], [place] [address] [place] [address] Business (1) In 3 days 12/01/2023 Comments: Call Dr for diagnosis based follow up With: Address: When: Irasema marley [address], [place] [address] Business (1) In 3 days 12/01/2023 Comments: Call Dr for diagnosis based follow up In the event that this physician does not participate in your insurance network, please consult with your insurance company to find a nearby participating provider. Patient Education Materials: Skin Abscess; Cellulitis, Adult, Ctih-gw-Iarx A MESSAGE TO ALL PATIENTS REGARDING OPIOIDS PRESCRIPTION OPIOIDS: WHAT YOU NEED TO KNOW Prescription opioids can be used to help relieve ktlnzkex-rf-uuwrgh pain and are often prescribed following a [...] program, o (more content not included)... Normal [facility] Family Medicine Office/Clini c Noteon 09-24-2023 Family [...] of clutter to prevent tripping and/or falling. [place] Advance Directives reviewed. Encouraged to complete documents [...] Prediabetes (R73.03: Prediabetes) Following with Endocrinology at [facility]. Discussed ADA dietary recommendations. Encouraged to increase [...] episode depresse (more content not included)... Normal [facility] Comment on above: Result Comment: Elec tronically [...] back pain. Interventions: Continue with appointments at [facility] pain clinic. Increase daily exercise Lose weight [...] Appointments Tuesday. 2024 8:00 AM EDT Where: [facility] Primary Care Normal [facility] Patient Educationon 09-22-19 Patient Education Endocrinology Diabetes [...] Carrots. Green beans. Tomatoes. Peppers. Onions. Cucumbers. [place] sprouts. Grains Whole grains, such as whole-wheat or whole-grain bread, crackers, tortillas, cereal, and pasta. Unsweetened oatmeal. (more content not included)... Normal [facility] Population Healthon 09-22-19 [facility] [id number] #1.00TIFF Normal [facility] ED Note-Physicianon 08-07-19 ED Note-Physician Basic Information [...] day(s), # 28 tab(s), Refills(s) 0, Pharmacy: [id number], 173, cm, 07/25/23 18:35:00 EDT, Height/Length Dosing, [...] Brown In 3 days 07/28/2023 EDT [address] [facility], [address] [phone] Business (1) Additional Instructions: Call Dr for diagnosis bas (more content not included)... Normal [facility] Comment on above: Result Comment: Elec tronically [...] 300 Contrast amount in ml's: 100 Normal [facility] ABO/Rhon 07-25-2023 ABO/Rh Positive Invalid Interpretation Code [facility] Comment on above: Performed By: #### 2 197334 ####[facility] [address] [place] [address] B hCG Qualon 07-25-2023 Beta HCG ( test) Ql Negative Normal [facility] Comment on above: Performed By: #### 2 231233, 34392133, 9126220, 1472087, 29720563, 9999803 ####[facility] [address] [place] [address] BLOOD BANKOrdered By: Clarence Swift on 07-25-2023 ABO/Rh Interp Positive Invalid Interpretation Code [facility] BB Subsection BMPon 07-25-2023 Anion gap [Moles/Vol] 13 mmol/L Normal 6-16 [facility] Comment on above: Performed By: #### 2 934083, 43456678, 9763483, 2284634, 85861312, 0419865 ####[facility] [address] [place] [address] Calcium [Mass/Vol] 9.1 mg/dL Normal 8.9-11.1 [facility] Comment on above: Performed By: #### 2 861891, 34963588, 4316905, 2886493, 23953992, 7726128 ####[facility] [address] [place] [address] Chloride [Moles/Vol] 107 mmol/L Normal 101-111 [facility] Comment on above: Performed By: #### 2 928414, 41377585, 1900292, 8016622, 12301997, 3815221 ####[facility] [address] [place] [address] CO2 [Moles/Vol] 24 mmol/L Normal 21-31 [facility] Comment on above: Performed By: #### 2 229473, 75568928, 3411633, 8081974, 54716127, 1649067 ####[facility] [address] [place] [address] Creatinine [Mass/Vol] 0.9 mg/dL Normal 0.5-1.3 [facility] Comment on above: Performed By: #### 2 301314, 73011935, 9459318, 2582906, 76074797, 6559070 ####[facility] [address] [place] [address] Glucose [Mass/Vol] 120 mg/dL Normal 55-199 [facility] Comment on above: Performed By: #### 2 401804, 88147732, 3214945, 9392185, 84033430, 1681248 ####[facility] [address] [place] [address] Potassium [Moles/Vol] 3.8 mmol/L Normal 3.5-5.3 [facility] Comment on above: Performed By: #### 2 996031, 70405968, 2694381, 7719734, 91911040, 1765363 ####[facility] [address] [place] [address] Sodium [Moles/Vol] 140 mmol/L Normal 135-145 [facility] Comment on above: Performed By: #### 2 896672, 73151818, 5717160, 9045489, 78038789, 4062081 ####[facility] [address] [facility] [place] [address] Urea nitrogen [Mass/Vol] 15 mg/dL Normal 5-21 [facility] Comment on above: Performed By: #### 2 792421, 35210157, 2870004, 8810084, 24898089, 3703952 ####[facility] [address] [place] [address] Urea nitrogen/Creatinine [Mass ratio] 17 No Units Normal 10-20 [facility] Comment on above: Performed By: #### 2 377438, 18969311, 3952395, 6501650, 57534075, 4929661 ####[address] [address] CBC w/ Auto Diffon 4 Basophils/100 WBC (Bld) 1.0 % Normal 0.0-2.0 F [facility] Comment on above: Performed By: #### 2 827232, 50606803, 8806395, 2532954, 47900067, 7823837 ####[address] [address] Basophils/Leukocytes Auto (Bld) [Pure # fraction] 0.1 E9/L Normal 0.0-0.2 [facility] Comment on above: Performed By: #### 2 683356, 62923979, 5369277, 2509745, 24420823, 2431558 ####[address] [address] Eosinophils (Bld) [#/Vol] 0.2 E9/L Normal 0.0-0.5 [facility] Comment on above: Performed By: #### 2 233079, 79860020, 7147538, 8878805, 47454486, 9764172 ####[address] [address] Eosinophils/100 WBC (Bld) 2.3 % Normal 0.0-8.0 [facility] Comment on above: Performed By: #### 2 996539, 22701867, 1731217, 9178614, 43767217, 2952455 ####[address] [address] Erythrocyte distribution width (RBC) [Ratio] 13.3 % Normal 10.9-14.2 [facility] Comment on above: Performed By: #### 2 988229, 90863571, 5227292, 4109757, 90237238, 5772094 ####[address] [address] Hematocrit (Bld) [Volume fraction] 34.5 % Normal 34.0-46.0 [facility] Comment on above: Performed By: #### 2 277840, 29615366, 1512046, 0362525, 41530673, 3519905 ####[address] [address] Hemoglobin (Bld) [Mass/Vol] 11.6 g/dL Low 12.0-16.0 [facility] Comment on above: Performed By: #### 2 430828, 75421683, 6401767, 1524422, 42315774, 3486174 ####[address] [address] Lymphocytes (Bld) [#/Vol] 3.4 E9/L Normal 1.0-4.0 [facility] Comment on above: Performed By: #### 2 773872, 20278624, 9219510, 0472652, 28225056, 8373112 ####[address] [address] Lymphocytes/100 WBC (Bld) 33.6 % Normal 14.0-50.0 [facility] Comment on above: Performed By: #### 2 490622, 03724972, 4276891, 8226299, 27491100, 1691574 ####[address] [address] MCH (RBC) [Entitic mass] 27.7 pg Normal 27.0-34.0 [facility] Comment on above: Performed By: #### 2 067596, 56729617, 7450181, 2377252, 47925664, 8505546 ####[address] [address] MCHC (RBC) [Mass/Vol] 33.6 g/dL Normal 31.4-36.0 [facility] Comment on above: Performed By: #### 2 727295, 96842989, 9090375, 2379230, 54126963, 1909461 ####[address] [address] MCV (RBC) [Entitic vol] 82.5 fL Normal 80.0-100.0 F [facility] Comment on above: Performed By: #### 2 216918, 64843366, 4461407, 1685578, 86711071, 7236265 ####[address] [address] Monocytes (Bld) [#/Vol] 0.6 E9/L Normal 0.2-1.0 [facility] Comment on above: Performed By: #### 2 788172, 55101333, 7642372, 1934581, 82205382, 8111008 ####[address] [address] Neutrophils (Bld) [#/Vol] 5.7 E9/L Normal 2.0-7.5 [facility] Comment on above: Performed By: #### 2 370095, 56760650, 2474795, 1171270, 36182359, 0569679 ####[address] [address] Neutrophils/100 WBC (Bld) 56.8 % Normal 36.0-75.0 [facility] Comment on above: Performed By: #### 2 061057, 72136456, 5748640, 9289816, 49654702, 1038426 ####[address] [address] Platelet 242.0 E9/L Normal 150.0-500.0 [facility] Comment on above: Performed By: #### 2 536834, 03692407, 2078742, 7489175, 09255063, 8898789 ####[address] [address] Platelet mean volume (Bld) [Entitic vol] 8.3 fL Normal 6.4-10.8 [facility] Comment on above: Performed By: #### 2 455615, 57286262, 0373130, 1099071, 62961169, 6742018 ####[facility] [address] [place] [address] RBC (Bld) [#/Vol] 4.2 E12/L Low 4.3-5.9 [facility] Comment on above: Performed By: #### 2 737975, 02689279, 2708239, 3411650, 73725966, 4835004 ####[facility] [address] [place] [address] WBC corrected for nucl RBC Auto (Bld) [#/Vol] 10.1 E9/L Normal 4.0-11.0 [facility] Comment on above: Performed By: #### 2 202368, 23697249, 1070782, 1056802, 88378808, 3593340 ####[facility] [address] [place] [address] CHEMISTRYOrdered By: SYSTEM SYSTEM on 07-25-2023 Albumin [...] Treatmenton 07-07 Consent for Treatment [id number] #1.00TIFF Normal [facility] Discharge Instructionson Discharge Instructions [id number] 0#1.00TIFF Normal [facility] ED Clinical Summaryon 2023 ED Clinical Summary [place] [id number] ED Clinical Summary Person Information Name: DAE ALMA DELIA Villaseñor [facility] Age: 38 Years : 1985 Sex: Female [...] 07/25/2023 21:40:17 07/25/2023 21:40:17 07/25/2023 21:40:17 ADDRESS: [address] [place] [phone] PHYS DOC NOTES: MEDICAL INFORMATION: Prescriptions Given: New Medications [id number], [address] [place], [place] [id number], [phone] metoclopramide (Reglan 5 mg Tab) 1 Tablets [...] needed Nausea/Vomiti (more content not included)... Normal [facility] ED Patient Education Noteon 07-25-2023 ED Patient [...] ? Low-calorie sports drinks. ? Eat bland, jncw-ng-vqdvsn foods in small amounts as you are able, such as: ? Bananas. ? Applesauce. ? Rice. ? Low-fat (lean) meats. ? Cayucos. ? Crackers. ? Avoid drinking fluids that have a lot of sugar or caffeine in them. This includes energy drinks, sports drinks, and soda. ? Avoid alcohol. ? Avoid spicy or fatty foods. General instructions ? 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 ? Make sure that everyone in your [...] drink what your doctor tells you. Take tren-atj-akmwifn and prescription medicines only as told by [...] provider. Document Revised: 10/30/2021 Document Reviewed: 10/30/2021 [employer] Patient Education ? 2022 [employer] Rectal Bleeding Rectal bleeding is when [...] are condition (more content not included)... Normal [facility] ED Patient Summaryon 024 ED Patient Summary [place] [address] Patient Discharge Instructions Person Information Name: ALMA DELIA PEARL Age: 38 Years Arrival Date: 07/25/2023 18:17:29 Discharge Diagnosis: Nausea; Rectal bleeding Primary Care Physician: Irasema Love Provider Information Primary Provider: Daron George DO Advanced Animal Cytologist:None The exam and treatment you received in the Emergency Department were for an urgent problem and are not intended as complete care. It is important that you follow up with a doctor, nurse practitioner, or physician?s print shop assistant for ongoing care. If your symptoms [...] Follow-up Instructions: With: Address: When: Marilia Brown [address] [place] [address], [address], [place] [phone] Business (1) In 3 days 07/28/2023 Comments: Call Dr for diagnosis based follow up With: Address: When: Irasema Vaughn, [place] [address] [employer] (1) In 3 days In the event that this physician does not participate in your insurance network, please consult with your insurance company to find a nearby participating provider. Patient Education Materials: Nausea, Adult, Kfls-ui-Orpi; Rectal Bleeding A MESSAGE TO ALL PATIENTS REGARDING OPIOIDS PRESCRIPTION OPIOIDS: WHAT YOU NEED TO KNOW Prescription opioids can be used to help relieve xzzuhfeg-kx-daelxz pain and are often prescribed following a [...] of op (more content not included)... Normal [facility] HEMATOLOGYOrdered By: SYSTEM SYSTEM on 07-25-2023 Basophils/100 [...] 07-25-2023 Albumin [Mass/Vol] 4.5 g/dL Normal 3.3-5.0 [facility] Comment on above: Performed By: #### 2 799806, 08578614, 3485095, 8074694, 35849112, 0787285 ####[place] [address] [place] [address] Albumin/Globulin (S) [Mass conc ratio] 1.7 Normal 1.1-2.2 [facility] Comment on above: Performed By: #### 2 213491, 42698239, 0514657, 0655300, 52358914, 5672553 ####[facility] [address] [place] [address] ALP [Catalytic activity/Vol] 60 Int._Unit/L Normal 21-98 [facility] Comment on above: Performed By: #### 2 591616, 77509885, 2524231, 3173665, 98437006, 9406060 ####[facility] [address] [place] [address] ALT No additional P-5'-P [Catalytic activity/Vol] 14 Int._Unit/L Normal 6-46 [facility] Comment on above: Performed By: #### 2 399835, 41418666, 1006130, 3744720, 06151073, 0265480 ####[address] [address] AST [Catalytic activity/Vol] 12 Int._Unit/L Normal 5-43 [facility] Comment on above: Performed By: #### 2 100655, 92185475, 3731775, 5244726, 12417083, 5701196 ####[address] [address] Bilirubin [Mass/Vol] 0.2 mg/dL Normal 0.0-1.1 [facility] Comment on above: Performed By: #### 2 964640, 97530537, 9955401, 1891893, 85475876, 8484511 ####[address] [address] Bilirubin.direct [Mass/Vol] 0.0 mg/dL Normal 0.0-0.4 [facility] Comment on above: Performed By: #### 2 4048[address], 77328072, 8524364, 6794215, 42599960, 0601676 ####[facility] [address] [place] [address] Bilirubin.indirect [Mass or moles/Vol] 0.2 mg/dL Normal 0.1-0.9 [facility] Comment on above: Performed By: #### 2 366667, 49193486, 4818634, 0787086, 12611604, 4733202 ####[facility] [address] [place] [address] Globulin (S) [Mass/Vol] 2.7 g/dL Normal 1.4-4.0 [facility] Comment on above: Performed By: #### 2 029635, 42520670, 9175748, 7259952, 65107654, 4155613 ####[facility] [address] [place] [address] Protein [Mass/Vol] 7.2 g/dL Normal 6.0-7.8 [facility] Comment on above: Performed By: #### 2 497187, 76650517, 2197047, 4675103, 55673350, 3160485 ####[place] [address] [place] [address] Lipase Levelon 07-25-2023 Lipase [Catalytic activity/Vol] 34 U/L Normal 13-58 [facility] Comment on above: Performed By: #### 2 982904, 41986327, 1949848, 3439119, 43162455, 1830533 ####[place] [address] [place] [address] RAD - Preliminary Cat Scan R eporton 07-25-2023 RAD - Preliminary Cat Scan Report [id number] 9#1.00TIFF Normal [facility] SEROLOGYOrdered By: France Martinez on 07-25-2023 Beta HCG ( test) Ql Negative (07/25/23 7:12 PM) Normal [facility] Man Sero eGFRon 07-25-2023 eGFR 84 mL/min/1.73 m2 Normal >=59 [facility] Comment on above: Order Comment: Order added by Discern Expert. Performed By: #### 2 121884, 63235028, 4406419, 3114710, 81179587, 4292853 ####[facility] [address] [place] [address] Consultation Noteon 07-07-19 Consultation Note [id number]# 1.00TIFF Normal [facility] 25(OH)D3 SerPl-mCncon 2023 25-hydroxyvitamin D3 [Mass/Vol] 20.6 ng/mL Low 31.0-80.0 [facility] Comment on above: Order Comment: Speci men Type: BLOOD SPECIMEN Ordering Facility: [facility] Address: [address] [place] [address] Performed By: #### 1 989-3 #### [facility] CLIA [id number] [address] [place] [address] [place] [address] [facility] Comprehensive metabolic 2000 panelon 07-06-2023 Albumin [Mass/Vol] 4.6 g/dL Normal 3.9-4.9 [facility] Comment on above: Order Comment: Speci men Type: BLOOD SPECIMEN Ordering Facility: [facility] Address: [address] [place] [address] Performed By: #### 2 4323-8 #### [facility] CLIA [id number] [address] [place] [address] ALP [Catalytic activity/Vol] 70 U/L Normal 34-123 [facility] Comment on above: Order Comment: Speci men Type: BLOOD SPECIMEN Ordering Facility: [facility] Address: [address] [place] [address] Performed By: #### 2 4323-8 #### [facility] CLIA [id number] [address] [place] [address] ALT [Catalytic activity/Vol] 15 U/L Normal 7-38 [facility] Comment on above: Order Comment: Speci men Type: BLOOD SPECIMEN Ordering Facility: [facility] Address: [address] [place] [address] Performed By: #### 2 4323-8 #### [facility] CLIA [id number] [address] [place] [address] Anion gap [Moles/Vol] 12 mmol/L Normal 9-18 [facility] Comment on above: Order Comment: Speci men Type: BLOOD SPECIMEN Ordering Facility: [facility] Address: [address] [place] [address] Performed By: #### 2 4323-8 #### [facility] CLIA [id number] [address] [place] [address] AST [Catalytic activity/Vol] 14 U/L Normal 13-35 [facility] Comment on above: Order Comment: Speci men Type: BLOOD SPECIMEN Ordering Facility: [facility] Address: [address] [place] [address] Performed By: #### 2 4323-8 #### [facility] CLIA [id number] [address] [place] [address] Bilirubin [Mass/Vol] 0.3 mg/dL Normal 0.2-1.3 [facility] Comment on above: Order Comment: Speci men Type: BLOOD SPECIMEN Ordering Facility: [facility] Address: [address] [place] [address] Performed By: #### 2 4323-8 #### [facility] CLIA [id number] [address] [place] [address] Calcium [Mass/Vol] 10.0 mg/dL Normal 8.5-10.2 [facility] Comment on above: Order Comment: Speci men Type: BLOOD SPECIMEN Ordering Facility: [facility] Address: [address] [place] [address] Performed By: #### 2 4323-8 #### [facility] CLIA [id number] [address] [place] [address] Chloride [Moles/Vol] 106 mmol/L High 97-105 [facility] Comment on above: Order Comment: Speci men Type: BLOOD SPECIMEN Ordering Facility: [facility] Address: [address] [place] [address] Performed By: #### 2 4323-8 #### [facility] CLIA [id number] [address] [place] [address] CO2 [Moles/Vol] 24 mmol/L Normal 22-30 [facility] Comment on above: Order Comment: Speci men Type: BLOOD SPECIMEN Ordering Facility: [facility] Address: [address] [place], [place] [address] Performed By: #### 2 4323-8 #### [facility] CLIA [id number] [address] [place] [address] Creatinine [Mass/Vol] 0.90 mg/dL Normal 0.58-0.96 [facility] Comment on above: Order Comment: Speci men Type: BLOOD SPECIMEN Ordering Facility: [facility] Address: [address] [place] [address] Performed By: #### 2 4323-8 #### [facility] CLIA [id number] [address] [place] [address] Creatinine and Glomerular filtration rate.predicted panel (S/P/Bld) 84 mL/min/1.73m??? Normal >=60 [facility] Comment on above: Order Comment: Speci men Type: BLOOD SPECIMEN Ordering Facility: [facility] Address: [address] [place] [address] Result Comment: Norma mated Glomerular Filtration Rate [...] GFR. Performed By: #### 2 4323-8 #### [facility] CLIA [id number] [address] [place] [address] Glucose [Mass/Vol] 118 mg/dL High 74-99 [facility] Comment on above: Order Comment: Speci men Type: BLOOD SPECIMEN Ordering Facility: [facility] Address: [address] [place], [place] [address] Result Comment: The [place] Diabetes Association (ADA) provides guidance for cutoff [...] Standards of Medical Care in Diabetes 2016, [place] [employer]. Diabetes Care. 2016.39(Suppl 1). Performed By: #### 2 4323-8 #### [facility] CLIA [id number] [address] [place] [address] Potassium [Moles/Vol] 4.2 mmol/L Normal 3.7-5.1 [facility] Comment on above: Order Comment: Speci men Type: BLOOD SPECIMEN Ordering Facility: [facility] Address: [address] [place] [address] Performed By: #### 2 4323-8 #### [facility] CLIA [id number] [address] [place] [address] Protein [Mass/Vol] 7.5 g/dL Normal 6.3-8.0 [facility] Comment on above: Order Comment: Speci men Type: BLOOD SPECIMEN Ordering Facility: [facility] Address: [address] [place] [address] Performed By: #### 2 4323-8 #### [facility] CLIA [id number] [address] [place] [address] Sodium [Moles/Vol] 142 mmol/L Normal 136-144 [facility] Comment on above: Order Comment: Speci men Type: BLOOD SPECIMEN Ordering Facility: [facility] Address: [address] [place] [address] Performed By: #### 2 4323-8 #### [facility] CLIA [id number] [address] [place] [address] Urea nitrogen [Mass/Vol] 14 mg/dL Normal 7-21 [facility] Comment on above: Order Comment: Speci men Type: BLOOD SPECIMEN Ordering Facility: [facility] Address: [address] [place] [address] Performed By: #### 2 4323-8 #### [facility] CLIA [id number] [address] [place], [place] [address] Cortis p Dex SerPl-mCncon Cortisol post dose dexamethasone [Mass/Vol] 0.5 ug/dL Normal <1.8 [facility] Comment on above: Order Comment: Speci men Type: BLOOD SPECIMEN Ordering Facility: [facility] Address: [address] [place] [address] Result Comment: Afte r overnight 1 mg dexamethasone, an dyehouse worker cortisol of <1.8 ug/dL may indicate an adequate cortisol suppression. This result should be interpreted within the clinical context and other test results. Maggy et al. Evidence for the Low Dose Dexamethasone Suppression Test to Screen for Belén's Syndrome - Recommendations for a Protocol for Biochemistry Laboratories. 1997 Kristi. Clin. Biochem. 34 222-229. Performed By: #### 2 4331-1 #### [facility] CLIA [id number] [address] [place] [address] [place] [facility] CLIA [id number] [address] [place] [address] #### 72956-0 #### [facility] CLIA [id number] [address] [place] [address] [place] DEXAMETHASONEon 07-06-2023 DEXAMETHASONE 299.5 ng/dL Normal [facility] Comment on above: Order Comment: Speci men Type: BLOOD SPECIMEN Ordering Facility: [facility] Address: [address] [place] [address] Result Comment: INTE RPRETIVE INFORMATION: Dexamethasone, Serum [...] developed and its performance characteristics determined by [facility]. It has not been cleared or approved by the US Food and Drug Administration. This test was performed in a CLIA certified laboratory and is intended for clinical purposes. Performed By: [facility] [address] [place] [address] Public Safety Telecommunicator: Dean Gill MD, PhD CLIA Number: [id number] Performed By: #### D ÁLVARO #### [facility] CLIA [id number] [address] [place] [address] HbA1c (Bld)on 07-06-2023 Average glucose Estimated from glycated hemoglobin (Bld) [Mass/Vol] 128 mg/dL Normal [facility] Comment on above: Order Comment: Specdeborah lyle Type: BLOOD SPECIMEN Ordering Facility: [facility] Address: [address] [place] [address] Result Comment: eAG: (Estimated average glucose) is a calculated value from HgbA1c and is provider relations representative of the average blood glucose level in the last 2-3 month period. Performed By: #### 5 5454-3 #### [facility] CLIA [id number] [address] [place] [address] [place] HbA1c (Bld) [Mass fraction] 6.1 % High 4.3-5.6 [facility] Comment on above: Order Comment: Dale lyle Type: BLOOD SPECIMEN Ordering Facility: [facility] Address: [address] [place] [address] Result Comment: Amer ican Diabetes Association guidelines indicate that patients with HgbA1c in the range 5.7-6.4% are at increased risk for development of diabetes, and intervention by lifestyle modification may be beneficial. HgbA1c greater or equal to 6.5% is considered diagnostic of diabetes. Performed By: #### 5 5454-3 #### [facility] CLIA [id number] [address] [place] [address] [place] Lipid 1996 panelon 4 Cholesterol [Mass/Vol] 240 mg/dL High <200 [facility] Comment on above: Order Comment: Speci men Type: BLOOD SPECIMEN Ordering Facility: [facility] Address: [address] [place] [address] Result Comment: <200 mg/dL, Desirable 200-239 mg/dL, Borderline high >239 mg/dL, High Performed By: #### 2 4331-1 #### [facility] CLIA [id number] [address] [place] [address] LAB CLIA [id number] [address] [place] [address] #### 27350-0 #### [facility] CLIA [id number] [address] [place] [address] STATES [facility] Cholesterol in HDL [Mass/Vol] 45 mg/dL Normal >39 [facility] Comment on above: Order Comment: Speci men Type: BLOOD SPECIMEN Ordering Facility: [facility] Address: [address] [place] [address] Result Comment: 40-5 9 mg/dL, Acceptable >59 mg/dL, High: Negative risk factor for coronary heart disease <40 mg/dL, Low: Positive risk factor for coronary heart disease Performed By: #### 2 4331-1 #### [facility] CLIA [id number] [address] [place] [address] LAB CLIA [id number] [address] [place] [address] #### 66634-5 #### [facility] CLIA [id number] [address] [place] [address] [place] Cholesterol in LDL [Mass/Vol] 155 mg/dL High <100 [facility] Comment on above: Order Comment: Speci men Type: BLOOD SPECIMEN Ordering Facility: [facility] Address: [address] [place] [address] Result Comment: <100 mg/dL, Optimal 100-129 mg/dL, Near optimal/above optimal 130-159 mg/dL, Borderline high 160-189 mg/dL, High >189 mg/dL, Very high Secondary prevention optimal LDL Cholesterol levels are recommended to be < 70 mg/dL Performed By: #### 2 4331-1 #### [facility] CLIA [id number] [address] [place] [address] LAB CLIA [id number] [address] [place] [address] #### 89822-1 #### [facility] CLIA [id number] [address] [place] [address] [place] Cholesterol in LDL/Cholesterol in HDL [Mass ratio] 3.44 {ratio} High <2.54 [facility] Comment on above: Order Comment: Specdeborah men Type: BLOOD SPECIMEN Ordering Facility: [facility] Address: [address] [place] [address] Result Comment: Duyen brown: 1. National Cholesterol Education Program ATP III Guideline At-A-Glance Quick Desk Reference: National Heart, Lung, and Blood [place]. National Institutes of Health. 2001: NIH Publication No. 01-3305. 2. An International Atherosclerosis Society position paper: global recommendations for the management of dyslipidemia: executive summary, Atherosclerosis. 2014: 232(2):410-413. Performed By: #### 2 4331-1 #### [facility] CLIA [id number] [address] [place] [address] OF [facility] CLIA [id number] [address] [place] [address] #### 10028-9 #### [facility] CLIA [id number] [address] [place] [address] [place] Cholesterol in VLDL [Mass/Vol] 40 mg/dL High <30 [facility] Comment on above: Order Comment: Deenai men Type: BLOOD SPECIMEN Ordering Facility: [facility] Address: [address] [place], [place] [address] Performed By: #### 2 4331-1 #### [facility] CLIA [id number] [address] [place] [address] [place] [facility] CLIA [id number] [address] [place] [address] #### 05782-7 #### [facility] CLIA [id number] [address] [place] [address] [place] Cholesterol non HDL [Mass/Vol] 195 mg/dL High <130 [facility] Comment on above: Order Comment: Speci men Type: BLOOD SPECIMEN Ordering Facility: [facility] Address: [address] [place] [address] Result Comment: <130 mg/dL, Optimal 130-159 mg/dL, Near optimal/above optimal 160-189 mg/dL, Borderline high 190-219 mg/dL, High >219 mg/dL, Very high Secondary prevention optimal non HDL Cholesterol levels are recommended to be <100 mg/dL Performed By: #### 2 4331-1 #### [facility] CLIA [id number] [address] [place] [address] [place] [facility] CLIA [id number] [address] [place] [address] #### 14212-8 #### [facility] CLIA [id number] [address] [place] [address] [place] Cholesterol.total/Ruby sterol in HDL [Mass ratio] 5.33 {ratio} High <5.10 [facility] Comment on above: Order Comment: Speci men Type: BLOOD SPECIMEN Ordering Facility: [facility] Address: [address] [place], [place] [address] Performed By: #### 2 4331-1 #### [facility] CLIA [id number] [address] [place] [address] [facility] CLIA [id number] [address] [place] [address] #### 33482-4 #### [facility] CLIA [id number] [address] [place] [address] [place] FASTING TIME 12 hrs Normal [facility] Comment on above: Order Comment: Speci men Type: BLOOD SPECIMEN Ordering Facility: [facility] Address: [address] [place] [address] Performed By: #### 2 4331-1 #### [facility] CLIA [id number] [address] [place] [address] OF [facility] CLIA [id number] [address] [place] [address] #### 93998-4 #### [facility] CLIA [id number] [address] [place] [address] [place] Triglyceride [Mass/Vol] 199 mg/dL High <150 [facility] Comment on above: Order Comment: Speci men Type: BLOOD SPECIMEN Ordering Facility: [facility] Address: [address] [place] [address] Result Comment: <150 mg/dL, Normal 150-199 mg/dL, Borderline high 200-499 mg/dL, High >499 mg/dL, Very high Performed By: #### 2 4331-1 #### [facility] CLIA [id number] [address] [place] [address] [place] [facility] CLIA [id number] [address] [place] [address] #### 51322-1 #### [facility] CLIA [id number] [address] [place] [address] [place] CNOVon 07-01-2023 CNOV Office Visit (ENDCMN) ALMA DELIA PEARL ([id number]) 1985 F Date Time Provider Department 07/01/23 9:30 AM EDMUNDO DEVLIN During your visit today, we recorded the following information about you: Pulse Blood pressure Weight 87/minute 114/76 137 kg Jeanie Zimmer MA 07/01/2023 9:11 AM Signed Thank you for choosing the [facility] Department of Endocrinology, Diabetes and Metabolism. Did you know that you need to call 48 hours in advance of your scheduled visit, if you are unable to make your appointment? The Endocrinology and Metabolism [place] thanks you for your commitment, because patients not showing to their appointment results in a lost opportunity for patients to receive [facility] health care at the [facility]. To Cancel an appointment, please choose one of the following: - Call the Appointment Call Center at [phone] - From [employer], Go to Appointments - Cancel Appts If cancelling, consider your need to reschedule to prevent further delays in your care. 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 Normal [facility] Office/Clini c Noteon 07-01-2023 Family Medicine Office/Clinic [...] day(s), # 6 tab(s), Refills(s) 0, Pharmacy: [facility] #[id number], 173, cm, 07/01/23 12:09:00 EST, Height/Length Dosing, 137, kg, 07/01/23 12:09:00 EST, Weight Dosing fluconazole, 150 mg = 1 tab(s), Oral, Once, 1 tab when antibiotic starts, and 1 tab at the completion of the antibiotic, # 2 tab(s), Refills(s) 1, Pharmacy: [facility] #[id number], 173, cm, 07/01/23 12:09:00 EST, Height/Length Dosing, 137, kg, 07/01/23 12:09:... Rapid Strep POC 66881 3. Yeast infection (B37.9: Candidiasis, unspecified) Diflucan as directed to prevent yeast infection Ordered: fluconazole, 150 mg = 1 tab(s), Oral, Once, 1 tab when antibiotic starts, and 1 tab at the completion of the antibiotic, # 2 tab(s), Refills(s) 1, Pharmacy: [facility] #[id number], 173, cm, 07/01/23 12:09:00 EST, Height/Length Dosing, 137, kg, 07/01/23 12:09:... 4. BMI 45.0-49.9, adult (Z68.42: Body mass index [BMI] 45.0-49.9, adult) Continue to monitor Ordered: azithromycin, = 1 packet(s), Oral, As Directed, as directed on package labeling, X 5 day(s), # 6 tab(s), Refills(s) 0, Pharmacy: [facility] #[id number], 173, cm, 07/01/23 12:09:00 EST, Height/Length Dosing, 137, kg, 07/01/23 12:09:00 EST, Weight Dosing fluconazole, 150 mg = 1 tab(s), Oral, Once, 1 tab when antibiotic starts, and 1 tab at the completion of the antibiotic, # 2 tab(s), Refills(s) 1, Pharmacy: [facility] #[id number], 173, cm, 07/01/23 12:09:00 EST, Height/Length Dosing, 137, kg, 07/01/23 12:09:... 5. Morbid obesity (E66.01: Morbid (severe) obesity due to excess calories) Continue to monitor Ordered: azithromycin, = 1 packet(s), Oral, As Directed, as directed on package labeling, X 5 day(s), # 6 tab(s), Refills(s) 0, Pharmacy: [facility] #[id number], 173, cm, 07/01/23 12:09:00 EST, Height/Length Dosing, 137, kg, 07/01/23 12:09:00 EST, Weight Dosing fluconazole, 150 mg = 1 tab(s), Oral, Once, 1 tab when antibiotic starts, and 1 tab at the completion of the antibiotic, # 2 tab(s), Refills(s) 1, Pharmacy: [facility] #[id number], 173, cm, 07/01/23 12:09:00 EST, Height/Length Dosing, [...] Inh So (more content not included)... Normal [facility] Comment on above: Result Comment: Elec tronically [...] ? Medicines that treat allergies (antihistamines). ? Apqf-ulz-ywmjbcu pain relievers. ? If caused by bacteria, [...] home: Medicines ? 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 ? Do not smoke. Avoid being around people who are smoking (secondhand smoke). ? Keep all follow-up visits. This is important. Contact a health care provider if: ? You have a fever. ? Your symptoms get (more content not included)... Normal [facility] Patient Educationon 06-07-19 Patient Education Endocrinology Blood [...] following in (more content not included)... Normal [facility] Consent for Treatmenton 05-10 Consent for Treatment [id number] #1.00TIFF [facility] MA Mamm Diag w/CAD if perf [...] VERY IMPORTANT TO YOUR HEALTH. THE CURRENT [employer] [employer] OF RADIOLOGY AND NATIONAL COMPREHENSIVE CANCER [...] Category 1-Negative Recommendation: Normal interval follow-up Normal [facility] US Breast Unilateral Lt Comp leteon 06-03-2023 [...] MD Transcribed by: ABBY Technologist: BEL Normal [facility] Family Medicine Office/Clini c Noteon 05-25-2023 Family [...] in years. She has been seeing her OB-CEMENT FINISHER, Dr. Fitzgerald and has an appointment on 05/23/2023. She previously had Mirena IUD, but her body rejected it. She is sexually active occasionally. She has had abnormal Pap smears, but not recently. Diabetes The patient is diabetic. Her previous hemoglobin A1c test was normal, and she has not checked it again since 03/2023. She is seeing an data network architect through [facility]. She has discontinued using Mounjaro for a [...] the patient (more content not included)... Normal [facility] Comment on above: Result Comment: Elec tronically Signed By: Aicha Magana\.br\Date and Time Signed: 05/25/23 03:21 EST\.br\Electronically Co-Signed By: Leyla Trujillo\.br\Date and Time Co-Signed: 05/20/23 16:26 EST Consultation Noteon 05-21-19 Consultation Note [id number]# 1.00TIFF Normal [facility] Ambulatory Visit Summaryon 0 05-20-2023 Ambulatory Visit [...] back pain. Interventions: Continue with appointments at [facility] pain clinic. Increase daily exercise Lose weight [...] 4:20 PM EST With: Irasema Love Where: [facility] Invalid Interpretation Code [address], [place] [address]- \.br\ You Need to Complete the Following\.br \ Beta hCG Quantitative, Blood, Routine collect, 05/20/23, Order for future visit, Lab Collect, Nipple discharge [facility] CHEMISTRYOrdered By: SYSTEM SYSTEM on 05-20-2023 U [...] on your nipples. General instructions ? Take frfp-mgn-kubxjjh and prescription medicines only as told by [...] provider. Document Revised: 02/23/2021 Document Reviewed: 02/23/2021 [employer] Patient Education ? 2022 [employer]. Obstetrics and Gynecology Polycystic Ovary Syndrome Polycystic [...] or are (more content not included)... Normal [facility] U Microalbon 05-20-2023 U Microalb <2.0 Normal 0.0-19.0 [facility] Comment on above: Performed By: #### 1 [id number] #### [facility] [address] [place] [address] CHEMISTRYOrdered By: SYSTEM SYSTEM on 04-06-2023 Albumin [...] 84 mL/min/1.73 m2 Normal >=59mL/min/1. 73 m2 [facility] Chem S Comment on above: Interpretive Data: [...] Interpretation Code Negative [facility] UA Auto SS [place].plasma/[place]. RBC (Bld) [Mass ratio] 4-20 /HPF Normal [...] Desc Clean Catch (04/06/23 3:19 PM) Normal [facility] UA Auto SS Urobilinogen Qn (U) 0.8721462 {Dre'U}/dL Normal 0.0 - 1.0 EU/dL [facility] UA Auto SS WBC Auto Ql (U) Negative (04/06/23 3:19 PM) Normal Negative [facility] UA Auto SS WBC LM.HPF (Urine sed) [#/Area] 0-5 /HPF Normal 0-5/HPF [facility] UA Auto SS Yeast LM Ql (Urine sed) 2+ (04/06/23 3:19 PM) Normal [facility] UA Auto SS Family Medicine Office/Clini c [...] puff(s), Inhalation, q6hr, 18 gm, Refill(s) 4, [facility] #[id number], 173, cm, 03/14/23 16:23:00 EST, Height/Length Dosing, 132.2, kg, 03/14/23 16:23:00 EST, Weight Dosing azithromycin, = 1 packet(s), Oral, As Directed, as directed on package labeling, X 5 day(s), # 6 tab(s), Refills(s) 0, Pharmacy: [facility] #[id number], 173, cm, 03/14/23 16:23:00 EST, Height/Length Dosing, 132.2, kg, 03/14/23 16:23:00 EST, Weight Dosing Follow-up No qualifying data available Patient Education Asthma, Adult, Cosj-yw-Grob Cough, Adult, Vety-fu-Uvgm Problem List/Past Medical History Ongoing Amenorrhea Anxiety [...] SARS-CoV-2 mRN (more content not included)... Normal [facility] Comment on above: Result Comment: Elec tronically [...] these instructions at home: Medicines ? Take fooj-fbz-yboqpis and prescription medicines only as told by [...] things can cause a cough. ? Take zjvf-qhw-arpqknb and prescription medicines only as told by [...] provider. Document Revised: 06/13/2020 Document Reviewed: 05/14/2019 [employer] Patient Education ? 2022 [employer]. Pulmonary Medicine Asthma, Adult Asthma is a [...] ? Pollen. ? Air pollution (like household behavior interventionist, wood smoke, smog, or chemical odors). What [...] their droppings (more content not included)... Normal [facility] Outside Diabetes Eye Examon 01-06-2023 Outside Diabetes Eye Exam [id number] #1.00CD:127 Normal [facility] Ambulatory Visit Summaryon 0 12-21-2022 Ambulatory Visit [...] back pain. Interventions: Continue with appointments at [facility] pain clinic. Increase daily exercise Lose weight [...] 10:20 AM EST With: Irasema Love Where: [facility] Invalid Interpretation Code [address], [facility] [place] [address]- \.br\ You Need to Schedule the Following Appointments\ .br\ Follow Up with Irasema Love When: In 6 months\.br\ Comments:\.br \ f/u preDM, CCM\.br\ Where:\.br\ [address], [address]\.br\ [place] [address].br\ \.br\ You Need to Complete the Following\.br \ HgbA1c, Blood, Routine collect, 12/21/22, Order for future visit, Lab Collect, Prediabetes [facility] Family Medicine Office/Clini c Noteon 12-21-2022 Family Medicine Office/Clinic Note Chief Complaint pt here for yearly. concerns of rash under breast, onset few weeks. HPI Staff Last routine labs: 10/21/22 smoker status: never Pap (21-64yo): Due flu vaccine status: due History of Present Illness Alma Delia is a 37-year-old female presenting today for annual wellness exam. Pt used to see Zi Blum in [place]. Overall, patient reports c/o skin yeast infection [...] weekly. Pt is following with Endocrinology at [facility] and obesity medicine at [facility]. BIPAD/JOSE ROBERTO/MDD taking buspirone 15 mg TID, rexulti 3mg qd and trazodone 100mg qhs, and hydroxyzine 25mg per MARTI Perez at [facility] asthma -mild intermittent, using albuterol HFA 8.5 g and albuterol 0.083% inh padma PRN, Symbicort 160/4.5 inh 2 puffs BID migraines - taking Emgality 120 mg injection qmo, fioricet or Ubrelvy PRN and Lyrica 25mg qd per neurologist at [facility] GERD/Crohn's disease - taking Omeprazole 40mg BID [...] Mouth: mucous membranes pink, moist and intact. [place] posterior oropharynx, no palatal inflammation, uvula midline, [...] nystatin topic (more content not included)... Normal [facility] Comment on above: Result Comment: Elec tronically [...] Carrots. Green beans. Tomatoes. Peppers. Onions. Cucumbers. [place] sprouts. Grains Whole grains, such as whole-wheat or whole-grain bread, crackers, tortillas, cereal, and pasta. Unsweetened oatmeal. (more content not included)... Normal [facility] CHEMISTRYOrdered By: SYSTEM SYSTEM on 10-21-2022 Bilirubin.direct [Mass/Vol] mg/dL Normal 0.1 - 0.4 mg/dL FT Remisol Bilirubin.indirect [Mass or moles/Vol] Unable to Calculate mg/dL Invalid Interpretation Code 0.1 - 0.9 mg/dL [facility] Remisol CRP [Mass/Vol] 1.6 mg/dL Normal <=1.9mg/dL FT Remis ol GFR/1.73 sq M.predicted among non-blacks MDRD (S/P/Bld) [Vol rate/Area] 97 mL/min/1.73 m2 Normal >=59mL/min/1. 73 m2 [facility] Chem S Lipase [Catalytic activity/Vol] 36 U/L [...] PM) Normal Negative [facility] UA Auto SS [place].plasma/[place]. RBC (Bld) [Mass ratio] 0-3 /HPF Normal 0-3/HPF [facility] UA A uto SS Nitrite Ql (U) [...] Desc Clean Catch (10/21/22 4:10 PM) Normal [facility] UA Auto SS Urobilinogen Qn (U) [id number] {Dre'U}/dL Normal 0.0 - 1.0 EU/dL [facility] [...] mmol/L Normal 6 - 16 mEq/L F [facility] Remisol AST [Catalytic activity/Vol] 19 [iU]/d Normal [...] rate/Area] mL/min/1.73 m2 Normal >=59mL/min/1. 73 m2 [facility] Chem S GFR/1.73 sq M.predicted among non-blacks MDRD (S/P/Bld) [Vol rate/Area] mL/min/1.73 m2 Normal >=59mL/min/1. 73 m2 [facility] Chem S Globulin (S) [Mass/Vol] 3.6 g/dL [...] Interpretation Code Negative [facility] UA Auto SS [place].plasma/[place]. RBC (Bld) [Mass ratio] 0-3 /HPF Normal [...] Desc Clean Catch (05/23/22 7:54 AM) Normal [facility] UA Auto SS Urobilinogen Qn (U) 0.3729208 {Dre'U}/dL Normal 0.0 - 1.0 EU/dL [facility] UA Auto SS WBC Auto Ql (U) Negative (05/23/22 7:54 AM) Normal Negative [facility] UA Auto SS WBC LM.HPF (Urine sed) [#/Area] 0-5 /HPF Normal 0-5/HPF [facility] UA Auto SS HEMOGLOBIN A1C (POC)on 03-31 HbA1c (Bld) [Mass fraction] 6.0 % 4.2 - 5.6 % [facility] CHEMISTRYOrdered By: SYSTEM SYSTEM on 12-31-2021 Albumin [...] rate/Area] mL/min/1.73 m2 Normal >=59mL/min/1. 73 m2 [facility] Chem S Globulin (S) [Mass/Vol] 3.8 g/dL [...] 81.0 fL Normal 80.0 - 100.0 fL [facility] HemeAutoSS Platelet mean volume (Bld) [Entitic vol] [...] NEG [place] (12/24/21 10:00 PM) Normal [facility] Man Sero Rapid COV Int POS Ctl [place] (12/24/21 10:00 PM) Normal [facility] Man Sero SARS-CoV+SARS-CoV-2 (COVID-19) Ag IA.rapid Ql (Resp) Not Detected (12/24/21 10:00 PM) Normal Not Detected [facility] Man Sero SEROLOGYOrdered By: Nerissa Velarde on 12-24-2021 HCG.beta subunit (U) [Moles/Vol] Negative Normal [facility] Man Sero CHEMISTRYOrdered By: Nuria Bills se on 11-24-2021 HbA1c (Bld) [Mass fraction] 6.3 % High <=5.9% [facility] ChemAutoSS Bariatric Surgery - Initialo n 11-11-2021 [...] She states that she does see a utility bagger, and believes that she may have factor [...] patient receives most of her care in [place]. Her PCP is a nurse practitioner, Violet. [...] metformin for (more content not included)... Normal A [facility] Lucky CHEMISTRYOrdered By: SYSTEM SYSTEM on 11-01-2021 Albumin [...] rate/Area] mL/min/1.73 m2 Normal >=59mL/min/1. 73 m2 [facility] Chem S GFR/1.73 sq M.predicted among non-blacks MDRD (S/P/Bld) [Vol rate/Area] mL/min/1.73 m2 Normal >=59mL/min/1. 73 m2 [facility] Chem S Globulin (S) [Mass/Vol] 3.4 g/dL [...] PM) Normal Negative [facility] UA Auto SS [place].plasma/[place]. RBC (Bld) [Mass ratio] 0-3 /HPF Normal [...] FT UA Auto SS Urobilinogen Qn (U) 0.1414245 {Dre'U}/dL Normal 0.0 - 1.0 EU/dL [facility] [...] AM) Normal Negative [facility] UA Auto SS [place].plasma/[place]. RBC (Bld) [Mass ratio] 0-3 /HPF Normal [...] [facility] UA Auto SS Urobilinogen Qn (U) 0.3243090 {Dre'U}/dL Normal 0.0 - 1.0 EU/dL [facility] [...] rate/Area] mL/min/1.73 m2 Normal >=59mL/min/1. 73 m2 [facility] Chem S Globulin (S) [Mass/Vol] 3.1 g/dL [...] 8.7 fL Normal 6.4 - 10.8 fL [facility] HemeAutoSS Platelets (Bld) [#/Vol] 256.0 E9/L Normal 150. 0 - 500.0 E9/L [facility] HemeAutoSS RBC (Bld) [#/Vol] 4.5 E12/L Normal 4.3 - 5.9 E12/L [facility] HemeAutoSS WBC corrected for nucl RBC Auto (Bld) [#/Vol] 8.8 E9/L Normal 4.0 - 11.0 E9/L [facility] HemeAutoSS ECG 12 lead ECGon 07-07-2021 ECG 12 lead ECG [facility] [address] Electrocardiograph Report Signed Patient: Alma Delia Pearl MR#: [id number] : 1985 Acct:[id number] Age/Sex: 36 / F ADM Date: 07/07/21 Loc: ER Room: Type: [facility] ER Attending Dr: Ordering Provider: Kanu Rudolph [...] Ulises Andre MD 0 07/10/21 1412 Normal [facility] HCG,Urineon 07-06-2021 Beta HCG ( test) Ql (U) Negative [facility] Comment on above: Result Comment: PERF ORMED BY: [facility] [address] [place] [address] PATHOLOGIST DEWATERER OPERATOR MARLEN SIDDIQUI M.D. Performed By: #### U HCG #### [facility] [address] [place] [id number] [facility] Q - HCG TOTAL QNon 2 HCG, TOTAL, QN <3 Normal [facility] Comment on above: Order Comment: [facility] Testing performed at: QPT, [facility], [address] [facility], [address] [place], [address], Public Safety Telecommunicator: Boo Chen MD [facility] Collection Date/Time: [facility] Results Received Date/Time: [facility] Reported Date/Time: Result Comment: Refe rence Range Non or premenopausal <5 Postmenopausal <10 Values from different assay methods may vary. The use of this assay to monitor or to diagnose patients with cancer or any condition unrelated to has not been cleared or approved by the FDA or the real estate consultant of the assay. Performed By: #### 2 1113E #### [facility] Default [address] [place] [address] ER URINE PROFILEon 8 Bilirubin (total) Negative Normal NEGATIVE [facility] Comment on above: Performed By: #### E RUR ####[facility] Q[address] [place] [id number] Marlene BLOOD Negative Normal NEGATIVE [facility] Comment on above: Performed By: #### E RUR ####[facility] [address] [place], [place] [address]Vqkmnj Marlene ERUAHD A micrscopic examination will be performed if indicated. Normal [facility] Comment on above: Performed By: #### E RUR ####[facility] [address] [place] [id number] [place] Glucose mass conc Negative Normal NEGATIVE [facility] Comment on above: Performed By: #### E RUR ####[facility] Lr[address] [place] [address]Gerken Marlene pH of blood 5.0 [pH] Normal 5-9 [facility] Comment on above: Performed By: #### E RUR ####[facility] P[address]25[address] [place] [id number] Marlene Protein Negative Normal [facility] Comment on above: Performed By: #### E RUR ####[facility] Dwlxpakzds90[address] [place] [id number] Marlene SPEC GRAVITY >=1.030 Normal 1.005-<=1.025 [facility] Comment on above: Performed By: #### E RUR ####[facility] Hrtcwrnjff[address] Mar[place] UR MICRO IND NOT INDICATED Normal [facility] Comment on above: Performed By: #### E RUR ####[facility] [address] [place], [place] [address]Gerken Marlene Urine, clarity CLEAR Normal [facility] Comment on above: Performed By: #### E RUR ####[facility] [address] [place], [place] [address]Gerken Marlene Urine, color LT. YELLOW Normal YELLOW [facility] Comment on above: Performed By: #### E RUR ####[facility] [address] [place] [address] Mar[place] Urine, ketones presence Negative Normal NEGATIVE [facility] Comment on above: Performed By: #### E RUR ####[facility] Atujwx[address]vy[address] [place], [place] [address]Gerken Marlene Urine, nitrite presence Negative Normal NEGATIVE [facility] Comment on above: Performed By: #### E RUR ####[facility] [address] [place] [id number] [place] Urine, urobilinogen 0.2 {Dre'U}/dL Normal [facility] Comment on above: Performed By: #### E RUR ####[facility] Acx[address]q8[address] [place] [address]Gerken [place]lene WBC (Leukocytes) Negative Normal NEGATIVE [facility] Comment on above: Performed By: #### E RUR ####[facility] [address]mp6[address] [place], [place] [address]Rukemy Marlene URon 06-04-2017 , QUAL Negative Normal NEGATIVE [facility] Comment on above: Performed By: #### S SCRN, STREPC ####[facility] Uuqyqdocgg5[address] [place], [place] [address]Agupoz Marlene AMYLASEon 06-03-2017 Amylase 48 U/L Normal 31-110 [facility] Comment on above: Performed By: #### L IPA, CMP, SAMANTA ####[facility] M[address]kw[address] [place], [place] [address]Plqpmd Marlene CBC AUTO DIFFon 06-03-2017 Basophils Auto #/vol (Bld) 0.0 103/ul Normal 0.0-0.1 [facility] Comment on above: Performed By: #### C BC ####[facility] Y[address] [place], [place] [address]Gerken Marlene Basophils/100 WBC Auto (Bld) 0.3 % Normal 0.2-2.0 [facility] Comment on above: Performed By: #### C BC ####[facility] P[address] [place], [place] [address]Gerken [place] Eosinophils 0.2 103/ul Normal 0.0-0.7 [facility] Comment on above: Performed By: #### C BC ####[facility] [address] [place], [place] [address]Gerken Marlene Eosinophils/100 leukocytes 2.2 % Normal 0.9-7.0 [facility] Comment on above: Performed By: #### C BC ####[facility] Upw[address]cq39[address] [place], [place] [address]Bzlmmj Marlene Erythrocyte distribution width Auto Ratio (RBC) 13.2 % Normal 11.0-15.0 [facility] Comment on above: Performed By: #### C BC ####[facility] F[address]ymzxlx5[address] [place] [address]Gerken Marlene Erythrocytes (RBC) 4.92 106/ul Normal 4.20-5.40 [facility] Comment on above: Performed By: #### C BC ####[facility] Hehcpvlkqk0953 [place] [address]Gerhiginio Rosario Hematocrit (HCT) 41.8 % Normal 36.0-48.0 [facility] Comment on above: Performed By: #### C BC ####[facility] Prfkxbqpvv1747 [place] [address]Gerken Marlene Hemoglobin mass conc (Bld) 13.6 g/dL Normal 12.0-16.0 [facility] Comment on above: Performed By: #### C BC ####[facility] [address] [place] [address]Gerken Marlene IG # 0.04 10e3/ul Critically high 0.00-0.03 [facility] Comment on above: Performed By: #### C BC ####[facility] Ahixujuquv[address] [place] IG % 0.4 % Normal 0.0-0.5 [facility] Comment on above: Performed By: #### C BC ####[facility] Wrllmksvwx[address] [place] Lymphocytes 1.6 103/ul Normal 1.2-3.8 [facility] Comment on above: Performed By: #### C BC ####[facility] Abgagqsdpa2049 [address] [place] Lymphocytes/100 leukocytes 15.8 % Critically low 20.5-60.0 [facility] Comment on above: Performed By: #### C BC ####[facility] [address] [place] [id number] [place]lene MANUAL DIFF REQ NO Normal [facility] Comment on above: Performed By: #### C BC ####[facility] Gcjes[address] [place] [address]Gerken Marlene MCH 27.6 pg Normal 26.7-34.0 [facility] Comment on above: Performed By: #### C BC ####[facility] [address]as[address] [place] [id number] Rosario MCHC mass conc (RBC) 32.5 g/dL Normal 29.9-35.2 [facility] Comment on above: Performed By: #### C BC ####[facility] Ofjloauzlb[address] [place] [address]Gissell Rosario MCV 85.0 fL Normal 81.0-99.0 [facility] Comment on above: Performed By: #### C BC ####[facility] Soavuoxzlp15[address] [place] [address]Gerken Marlene Monocytes 0.6 103/ul Normal 0.3-0.8 [facility] Comment on above: Performed By: #### C BC ####[facility] [address] [place] [address]Gissell Rosario Monocytes/100 leukocytes 6.2 % Normal 1.7-12.0 [facility] Comment on above: Performed By: #### C BC ####[facility] [address] [place], [place] [address]Gerken Marlene Neutrophils 7.6 103/ul Critically high 1.4-6.5 [facility] Comment on above: Performed By: #### C BC ####[facility] [address] [place], [place] [address]Gerhiginio Rosario Neutrophils/100 WBC Auto (Bld) 75.1 % Critically high 43.0-75.0 [facility] Comment on above: Performed By: #### C BC ####[facility] [address] [place], [place] [address]Gissell Rosario Platelet mean volume (PMV) 10.5 fL Normal 9.5-13.5 [facility] Comment on above: Performed By: #### C BC ####[facility] Z[address]cjdekj50[address] [place] [id number] Marlene Platelets 248 103/ul Normal 150-450 [facility] Comment on above: Performed By: #### C BC ####[facility] Bgozdcxdfu47[address] [place] [address]Gerhiginio Rosario WBC (Leukocytes) 10.1 103/ul Normal 4.0-11.0 [facility] Comment on above: Performed By: #### C BC ####[facility] [address] [place] [address] [place] INFLUENZA A AND B AGon 06-03 INFLUANEGH SEE BELOW Normal [facility] Comment on above: Result Comment: Nega tive for Flu A protein angiten. Infection due to Flu A cannot be ruled out. Flu A angiten in the sample may be below the detection limit of the test. Performed By: #### I NFLUAB ####[facility] [address] [place] [address] [place] INFLUBNEGH SEE BELOW Normal [facility] Comment on above: Result Comment: Nega tive for Flu B protein antigen. Infection due to Flu B cannot be ruled out. Flu B antigen in the sample may be below the detection limit of the test. Performed By: #### I NFLUAB ####[facility] [address] [place] [address] INFLUENZA A AG Negative Normal NEGATIVE SEE COMMENT [facility] Comment on above: Performed By: #### I NFLUAB ####[facility] [address] [place] [address] INFLUENZA B AG Negative Normal NEGATIVE SEE COMMENT [facility] Comment on above: Performed By: #### I NFLUAB ####[facility] [address] [place] [address] INTERNAL CONTROLS Within Normal Limits Normal Wi thin Normal Limits [facility] Comment on above: Performed By: #### I NFLUAB ####[facility] [address] [place] [address] Marlene LIPASEon 06-03-2017 Lipase 61.0 U/L Normal 23.0-300.0 [facility] Comment on above: Performed By: #### L IPA, CMP, SAMANTA ####[facility] [address] [place] [address] Mar[place] PROF 14(COMP METB)on 018 Alanine aminotransferase (ALT) 42 U/L Normal 9-52 [facility] Comment on above: Performed By: #### L IPA, CMP, SAMANTA ####[facility] Xrgakhgqfn[address] [place] Albumin 4.8 g/dL Normal 3.5-5.0 [facility] Comment on above: Performed By: #### L IPA, CMP, SAMANTA ####[facility] Lczmxlgfkq3070 [address] [place] Albumin/Globulin Ratio 1.3 {ratio} Normal [facility] Comment on above: Performed By: #### L IPA, CMP, SAMANTA ####[facility] Nuorwjtieb8492 [address] [place] Alkaline phosphatase (ALP) 80 U/L Normal 38-126 [facility] Comment on above: Performed By: #### L IPA, CMP, SAMANTA ####[facility] [address] [place] [address] Mar[place] Anion gap 16.1 mmol/L Normal [facility] Comment on above: Performed By: #### L IPA, CMP, SAMANTA ####[facility] [address] [place] [address] Mar[place] Aspartate aminotransferase (AST) 18 U/L Normal 14-36 [facility] Comment on above: Performed By: #### L IPA, CMP, SAMANTA ####[facility] [address] [place] [address] Mar[place] Bilirubin Ql (U) 0.6 mg/dL Normal 0.2-1.3 [facility] Comment on above: Performed By: #### L IPA, CMP, SAMANTA ####[facility] Cyxbusuddk3567 [address] [place] BUN/Creatinine Ratio 14.1 mg/mg Normal [facility] Comment on above: Performed By: #### L IPA, CMP, SAMANTA ####[facility] [address] [place] [address] Mar[place] Calcium 9.5 mg/dL Normal 8.4-10.2 [facility] Comment on above: Performed By: #### L IPA, CMP, SAMANTA ####[facility] Hbbfojnhas2288 [place], [place] [address]Zpaleo Marlene Chloride 108 mmol/L Critically high 98-107 [facility] Comment on above: Performed By: #### L IPA, CMP, SAMANTA ####[facility] Gnxnguruu[address] [place], [place] [address]Mkvzvw Marlene CO2 21.0 mmol/L Critically low 22.0-30.0 [facility] Comment on above: Performed By: #### L IPA, CMP, SAMANTA ####[facility] Wxld[address]xfyqh96[address] [place], [place] [address]Gppqeg Marlene Creatinine 0.93 mg/dL Normal 0.52-1.04 [facility] Comment on above: Performed By: #### L IPA CMP, SAMANTA ####[facility] [address]cwpv2[address] [place], [place] [address]Xpgjps Marlene eGFR (non-black) mL/min/{1.73_m2} Normal >=60 [facility] Comment on above: Performed By: #### L IPA CMP, SAMANTA ####[facility] Ycraabelpy94[address] [place], [place] [address]Whjptr Marlene Globulin 3.5 g/dL Normal [facility] Comment on above: Performed By: #### L IPA CMP, SAMANTA ####[facility] Bhimnijkxa28[address] [place], [place] [address]Ghypug Marlene Glucose mass conc 144 mg/dL Critically high 74-106 [facility] Comment on above: Performed By: #### L IPA, CMP, SAMANTA ####[facility] Wvnfltxtgz2353 [place], [place] [address]Qcqthc Marlene Potassium molar conc 3.7 mmol/L Normal 3.4-5.0 [facility] Comment on above: Performed By: #### L IPA, CMP, SAMANTA ####[facility] Pbigpfvrzs57[address] [place], [place] [address]Ufxezf Marlene Protein 8.3 g/dL Critically high 6.1-8.2 [facility] Comment on above: Performed By: #### L IPA, CMP, SAMANTA ####[facility] [address]ro[address]j10[address] [place], [place] [address]Nrdmxy Marlene Sodium 142 mmol/L Normal 137-145 [facility] Comment on above: Performed By: #### L IPA, CMP, SAMANTA ####[facility] Dcjoosenrt0606 [place], [place] [address]Aanwyr Marlene Urea nitrogen 13.0 mg/dL Normal 7.0-17.0 [facility] Comment on above: Performed By: #### L IPA, CMP, SAMANTA ####[facility] [address] [place], [place] [address]Cmxban Marlene XR CHEST 2 Von 05-29-2017 XR CHEST 2 V [address] [place] [address] Patient: ALMA DELIA PEARL Exam Date: 05/29/2017DOB: 1985 Gender:F : MR JUAN DIEGO MANZANARES . Admission #: [id number] : MRS. KEILA LYNCH Order #: [id number] HERE TO VIEW EXAM RADIOLOGY REPORT PROCEDURE: [...] M.D. on 05/29/2017 at 16:52 Normal [facility] URon 05-25-2017 , QUAL Negative Normal NEGATIVE [facility] Comment on above: Performed By: #### P REGU ####[facility] Phrk[address]bkbx65[address] [place], [place] [address]Nudvty Marlene STREP SCREEN CONFIRMATIONon 05-25-2017 STREP SCREEN CONFIRMATION Culture Observations: FINAL SCANNED RESULT TO FOLLOW IN [facility] Normal [facility] Comment on above: Performed By: #### S SCRN, STREPC ####[facility] S[address] [place], [place] [address]NpprglGissell Rosario STREPT SCREENon 05-25-2017 STREP SCREEN A Negative Normal NEGATIVE [facility] Comment on above: Performed By: #### S SCRN, STREPC ####[facility] [address] [place], [place] [address]YfjidaGissell Rosario Vital Signs Date Time Vital Sign Value Performing Clinician Facility 11-29-2023 20:28-0400 Body temperature 97.88 [degF] Kaylinn [facility] 11-29-2023 20:28-0400 Diastolic blood pressure 78 mm[Hg] Kaylinn [facility] 11-29-2023 20:28-0400 Heart rate 92 /min Marleneylinn [facility] 11-29-2023 20:28-0400 Respiratory rate 18 /min Marleneylinn [facility] 11-29-2023 20:28-0400 SaO2% (BldA) [Mass fraction] 97 % Marleneylinn [facility] 11-29-2023 20:28-0400 Systolic blood pressure 125 mm[Hg] Kaylinn [facility] 11-28-2023 20:59-0400 Body temperature 97.88 [degF] James Kaush[facility] 11-28-2023 20:59-0400 Diastolic blood pressure 68 mm[Hg] James [facility]aus[facility] 11-28-2023 20:59-0400 Heart rate 82 /min [facility] 11-28-2023 20:59-0400 Respiratory rate 18 /min James [facility] 11-28-2023 20:59-0400 SaO2% (BldA) [Mass fraction] 98 % [facility] 11-28-2023 20:59-0400 Systolic blood pressure 115 mm[Hg] James [facility] 11-28-2023 19:08-0400 Body temperature 97.52 [degF] [facility] 11-28-2023 19:08-0400 Diastolic blood pressure 80 mm[Hg] [facility] 11-28-2023 19:08-0400 Heart rate 95 /min James [facility] 11-28-2023 19:08-0400 Respiratory rate 16 /min James [facility] 11-28-2023 19:08-0400 SaO2% (BldA) [Mass fraction] 97 % [facility] 11-28-2023 19:08-0400 Systolic blood pressure 140 mm[Hg] James [facility] 09-22-2023 09:19-0400 Blood Pressure Location Irasema Missler [facility] 09-22-2023 09:19-0400 Body temperature 98.06 [degF] Irasema Missler [facility] 09-22-2023 09:19-0400 Diastolic blood pressure 76 mm[Hg] Irasema Missler [facility] 09-22-2023 09:19-0400 Heart rate 78 /min Irasema Missler [facility] 09-22-2023 09:19-0400 SaO2% (BldA) [Mass fraction] 97 % Irasema Zacarias [facility] 09-22-2023 09:19-0400 Systolic blood pressure 118 mm[Hg] Irasema Zacarias [facility] 07-25-2023 21:05-0400 Diastolic blood pressure 69 mm[Hg] Daron Zaragozae [facility] 07-25-2023 21:05-0400 Heart rate 80 /min Daron Doris [facility] 07-25-2023 21:05-0400 Respiratory rate 18 /min Daron Zaragozae [facility] 07-25-2023 21:05-0400 SaO2% (BldA) [Mass fraction] 96 % Daron Zaragozae [facility] 07-25-2023 21:05-0400 Systolic blood pressure 103 mm[Hg] Daron Doris [facility] 07-25-2023 18:32-0400 Body temperature 97.7 [degF] Daron Doris [facility] 07-25-2023 18:32-0400 Diastolic blood pressure 89 mm[Hg] Daron Doris [facility] 07-25-2023 18:32-0400 Heart rate 83 /min Daron Doris [facility] 07-25-2023 18:32-0400 Respiratory rate 18 /min Daron Doris [facility] 07-25-2023 18:32-0400 SaO2% (BldA) [Mass fraction] 96 % Daron Doris [facility] 07-25-2023 18:32-0400 Systolic blood pressure 131 mm[Hg] Daron George [facility] 07-01-2023 12:05-0500 Blood Pressure Location WILLIE GALINDO [facility] 07-01-2023 12:05-0500 Body temperature 97.88 [degF] WILLIE GALINDO [facility] 07-01-2023 12:05-0500 Diastolic blood pressure 82 mm[Hg] WILLIE GALINDO [facility] 07-01-2023 12:05-0500 Heart rate 90 /min WILLIE GALINDO [facility] 07-01-2023 12:05-0500 Respiratory rate 16 /min WILLIE GALINDO [facility] 07-01-2023 12:05-0500 SaO2% (BldA) [Mass fraction] 97 % WILLIE GALINDO [facility] 07-01-2023 12:05-0500 Systolic blood pressure 110 mm[Hg] WILLIE GALINDO [facility] 05-20-2023 09:22-0500 Blood Pressure Location Aicha Dean [facility] 05-20-2023 09:22-0500 Body temperature 98.24 [degF] Aicha Dean [facility] 05-20-2023 09:22-0500 Diastolic blood pressure 70 mm[Hg] Aicha Dean [facility] 05-20-2023 09:22-0500 Heart rate 91 /min Aicha Dean [facility] 05-20-2023 09:22-0500 Respiratory rate 18 /min Aicha Dean [facility] 05-20-2023 09:22-0500 SaO2% (BldA) [Mass fraction] 97 % Aicha Dean [facility] 05-20-2023 09:22-0500 Systolic blood pressure 116 mm[Hg] Aicha Dean [facility] 04-06-2023 15:30-0500 Diastolic blood pressure 95 mm[Hg] James [facility] 04-06-2023 15:30-0500 Heart rate 100 /min [facility] 04-06-2023 15:30-0500 Mean blood pressure 112 mm[Hg] [facility] 04-06-2023 15:30-0500 Respiratory rate 18 /min [facility] 04-06-2023 15:30-0500 SaO2% (BldA) [Mass fraction] 99 % [facility] 04-06-2023 15:30-0500 Systolic blood pressure 146 mm[Hg] [facility] 04-06-2023 13:57-0500 gluc 142 mg/dL [facility] 04-06-2023 13:57-0500 gluc [facility] 11-29-2023 13:50-0500 Body temperature 98.42 [degF] James Kaushik [facility] 04-06-2023 13:50-0500 Diastolic blood pressure 80 mm[Hg] James Kaush[facility] 04-06-2023 13:50-0500 Heart rate 108 /min James Kaush[facility] 04-06-2023 13:50-0500 Respiratory rate 18 /min James K[facility] 04-06-2023 13:50-0500 SaO2% (BldA) [Mass fraction] 96 % James [facility] 04-06-2023 13:50-0500 Systolic blood pressure 123 mm[Hg] [facility] [facility] 03-19-2023 17:00-0500 Diastolic blood pressure 55 mm[Hg] [facility] 03-19-2023 17:00-0500 Heart rate 77 /min [facility] 03-19-2023 17:00-0500 Mean blood pressure 71 mm[Hg] [facility] 03-19-2023 17:00-0500 Respiratory rate 16 /min [facility] 03-19-2023 17:00-0500 Systolic blood pressure 103 mm[Hg] [facility] 03-19-2023 16:00-0500 Diastolic blood pressure 57 mm[Hg] [facility] 03-19-2023 16:00-0500 Heart rate 68 /min [facility] 03-19-2023 16:00-0500 Mean blood pressure 75 mm[Hg] [facility] 03-19-2023 16:00-0500 SaO2% (BldA) [Mass fraction] 96 % [facility] 03-19-2023 13:39-0500 Body temperature 98.24 [degF] [facility] 03-19-2023 13:39-0500 Diastolic blood pressure 74 mm[Hg] [facility] 03-19-2023 13:39-0500 Heart rate 74 /min [facility] 03-19-2023 13:39-0500 Respiratory rate 18 /min [facility] 03-19-2023 13:39-0500 SaO2% (BldA) [Mass fraction] 97 % [facility] 03-19-2023 13:39-0500 Systolic blood pressure 112 mm[Hg] [facility] 03-14-2023 16:19-0500 Blood Pressure Location ANNABELVladimir HERNANDEZ [facility] 03-14-2023 16:19-0500 Body temperature 97.88 [degF] ANNABEL DAVID [facility] 03-14-2023 16:19-0500 Diastolic blood pressure 80 mm[Hg] ANNABEL DAVID [facility] 03-14-2023 16:19-0500 Heart rate 90 /min ANNABEL ADVID [facility] 03-14-2023 16:19-0500 Respiratory rate 20 /min ANNABEL HERNANDEZ [facility] 03-14-2023 16:19-0500 SaO2% (BldA) [Mass fraction] 98 % ANNABELVladimir HERNANDEZ [facility] 03-14-2023 16:19-0500 Systolic blood pressure 136 mm[Hg] ANNABELVladimir HERNANDEZ [facility] 12-21-2022 12:57-0400 Blood Pressure Location Irasema Zacarias [facility] 12-21-2022 12:57-0400 Body temperature 97.34 [degF] Irasema Quirozler [facility] 12-21-2022 12:57-0400 Diastolic blood pressure 78 mm[Hg] Irasemapita Quirozler [facility] 12-21-2022 12:57-0400 Heart rate 80 /min Irasema Quirozler [facility] 12-21-2022 12:57-0400 SaO2% (BldA) [Mass fraction] 98 % Irasema Quirozler [facility] 12-21-2022 12:57-0400 Systolic blood pressure 116 mm[Hg] Irasema Missler [facility] 10-21-2022 18:30-0400 Diastolic blood pressure 85 mm[Hg] [facility] 10-21-2022 18:30-0400 Heart rate 63 /min [facility] 10-21-2022 18:30-0400 Mean blood pressure 98 mm[Hg] [facility] 10-21-2022 18:30-0400 Respiratory rate 17 /min [facility] 10-21-2022 18:30-0400 SaO2% (BldA) [Mass fraction] 96 % [facility] 10-21-2022 18:30-0400 Systolic blood pressure 123 mm[Hg] [facility] 10-21-2022 18:00-0400 Diastolic blood pressure 86 mm[Hg] [facility] 10-21-2022 18:00-0400 Heart rate 71 /min [facility] 10-21-2022 18:00-0400 Respiratory rate 18 /min [facility] 10-21-2022 18:00-0400 SaO2% (BldA) [Mass fraction] 99 % [facility] 10-21-2022 18:00-0400 Systolic blood pressure 122 mm[Hg] [facility] 10-21-2022 17:00-0400 Heart rate 73 /min [facility] 10-21-2022 17:00-0400 Mean blood pressure 100 mm[Hg] [facility] 10-21-2022 17:00-0400 SaO2% (BldA) [Mass fraction] 98 % [facility] 10-21-2022 17:00-0400 Systolic blood pressure 127 mm[Hg] [facility] 10-21-2022 15:58-0400 Body temperature 98.06 [degF] [facility] 10-21-2022 15:58-0400 Heart rate 74 /min Roshan [facility] 08-18-2022 11:00-0400 Body height 175.26 cm Michael Guzman Other [facility] Other 08-18-2022 11:00-0400 Body mass index (BMI) [Ratio] 44.89 kg/m2 Michael Guzman Other [facility] Other 08-18-2022 11:00-0400 Body weight 137.89 kg Michael Guzman Other [facility] Other 08-18-2022 11:00-0400 Diastolic blood pressure 85 mm[Hg] Michael Guzman Other [facility] Other 08-18-2022 11:00-0400 Systolic blood pressure 125 mm[Hg] Michael Guzman Other [facility] Other 05-23-2022 09:46-0500 Diastolic blood pressure 65 mm[Hg] [facility] 05-23-2022 09:46-0500 Heart rate 90 /min [facility] 05-23-2022 09:46-0500 Mean blood pressure 77 mm[Hg] [facility] 05-23-2022 09:46-0500 Respiratory rate 18 /min [facility] 05-23-2022 09:46-0500 SaO2% (BldA) [Mass fraction] 95 % [facility] 05-23-2022 09:46-0500 Systolic blood pressure 101 mm[Hg] [facility] 01-15-2023 09:07-0500 Diastolic blood pressure 62 mm[Hg] [facility] 05-23-2022 09:07-0500 Heart rate 92 /min [facility] 05-23-2022 09:07-0500 Mean blood pressure 76 mm[Hg] [facility] 05-23-2022 09:07-0500 Respiratory rate 18 /min [facility] 05-23-2022 09:07-0500 SaO2% (BldA) [Mass fraction] 96 % [facility] 05-23-2022 09:07-0500 Systolic blood pressure 105 mm[Hg] [facility] 05-23-2022 08:00-0500 Diastolic blood pressure 69 mm[Hg] [facility] 05-23-2022 08:00-0500 Heart rate 96 /min [facility] 05-23-2022 08:00-0500 Mean blood pressure 83 mm[Hg] [facility] 05-23-2022 08:00-0500 Systolic blood pressure 111 mm[Hg] [facility] 05-23-2022 07:26-0500 Hourly Rounding [facility] 05-23-2022 06:50-0500 Body temperature 98.96 [degF] [facility] 03-31-2022 14:25-0500 Body weight 134.72 kg Kimberly Velazquez MD Work Phone: [facility] 03-31-2022 14:25-0500 Diastolic blood pressure 89 mm[Hg] Kimberly Velazquez MD Work Phone: [facility] 03-31-2022 14:25-0500 Heart rate 84 /min Kimberly Velazquez MD Work Phone: [facility] 03-31-2022 14:25-0500 Systolic blood pressure 125 mm[Hg] Kimberly Velazquez MD Work Phone: [facility] 12-31-2021 21:59-0400 Diastolic blood pressure 78 mm[Hg] [facility] 12-31-2021 21:59-0400 Heart rate 90 /min [facility] 12-31-2021 21:59-0400 Hourly Rounding [facility] 12-31-2021 21:59-0400 Nursing Progress Note Reason Other: Pt resting on cart. Denies any needs at this time. [facility] 12-31-2021 21:59-0400 Respiratory rate 18 /min [facility] 12-31-2021 21:59-0400 SaO2% (BldA) [Mass fraction] 97 % [facility] 12-31-2021 21:59-0400 Systolic blood pressure 126 mm[Hg] [facility] 12-31-2021 20:59-0400 Diastolic blood pressure 74 mm[Hg] [facility] 12-31-2021 20:59-0400 Heart rate 102 /min [facility] 12-31-2021 20:59-0400 Hourly Rounding [facility] 12-31-2021 20:59-0400 Nursing Progress Note Reason Other: Pt mediciated per orders. Denies any needs at this time. [facility] 12-31-2021 20:59-0400 Respiratory rate 18 /min [facility] 12-31-2021 20:59-0400 SaO2% (BldA) [Mass fraction] 98 % [facility] 12-31-2021 20:59-0400 Systolic blood pressure 113 mm[Hg] [facility] 12-31-2021 19:50-0400 Body temperature 98.6 [degF] [facility] 12-31-2021 19:50-0400 Diastolic blood pressure 77 mm[Hg] [facility] 12-31-2021 19:50-0400 Heart rate 99 /min [facility] 12-31-2021 19:50-0400 Respiratory rate 18 /min [facility] 12-31-2021 19:50-0400 SaO2% (BldA) [Mass fraction] 98 % [facility] 12-31-2021 19:50-0400 Systolic blood pressure 121 mm[Hg] [facility] 12-25-2021 00:47-0400 Diastolic blood pressure 90 mm[Hg] [facility] 12-25-2021 00:47-0400 Heart rate 74 /min [facility] 12-25-2021 00:47-0400 Nursing Progress Note Reason Other: pt states pain tolerable at this time. a&o x4, resp euqual and non labored, denies needs [facility] 12-25-2021 00:47-0400 Respiratory rate 16 /min Marleneylinn [facility] 12-25-2021 00:47-0400 SaO2% (BldA) [Mass fraction] 98 % [facility] 12-25-2021 00:47-0400 Systolic blood pressure 137 mm[Hg] [facility] 12-24-2021 23:00-0400 Nursing Progress Note Reason Other: pt out of dept for ct Marleneylinn [facility] 12-24-2021 21:36-0400 Body temperature 98.24 [degF] [facility]leneylinn [facility] 12-24-2021 21:36-0400 Diastolic blood pressure 87 mm[Hg] [facility]leneylinn [facility] 12-24-2021 21:36-0400 Heart rate 93 /min Rebekahinn [facility] 12-24-2021 21:36-0400 Respiratory rate 18 /min Rebekahinn [facility] 12-24-2021 21:36-0400 SaO2% (BldA) [Mass fraction] 97 % Rebekahinn [facility] 12-24-2021 21:36-0400 Systolic blood pressure 141 mm[Hg] [facility] 11-11-2021 08:51-0400 Body height 175.26 cm James Viktor Rodriguez Work Phone: [facility] Work Phone: 11-11-2021 08:51-0400 Body mass index (BMI) [Ratio] 44.15 kg/m2 James Rodriguez Work Phone: [facility] Work Phone: 11-11-2021 08:51-0400 Body surface area Derived from formula 2.45 m2 James Rodriguez Work Phone: [facility] Work Phone: 11-11-2021 08:51-0400 Body weight 135.63 kg James Rodriguez Work Phone: [facility] Work Phone: 11-03-2021 13:13-0400 Blood Pressure Location Lacey LILIANAIDCLEMENT [facility] 11-03-2021 13:13-0400 Body temperature 97.52 [degF] Lacey PEARSONANAIDCLEMENT [facility] 11-03-2021 13:13-0400 Diastolic blood pressure 74 mm[Hg] Lacey SPEANAIDEL [facility] 11-03-2021 13:13-0400 Heart rate 80 /min Lacey SPEANAIDEL [facility] 11-03-2021 13:13-0400 SaO2% (BldA) [Mass fraction] 98 % Lacey LILIANAIDEL [facility] 11-03-2021 13:13-0400 Systolic blood pressure 116 mm[Hg] Lacey GUTIERRESEL [facility] 11-01-2021 22:00-0400 Blood Pressure Location [facility] 11-01-2021 22:00-0400 Diastolic blood pressure 72 mm[Hg] [facility] 11-01-2021 22:00-0400 Heart rate 80 /min [facility] 11-01-2021 22:00-0400 Hourly Rounding [facility] Comment on above: Result Comment: Patient is ready to go h ome. 11-01-2021 22:00-0400 Mean blood pressure 86 mm[Hg] [facility] 11-01-2021 22:00-0400 Respiratory rate 18 /min [facility] 11-01-2021 22:00-0400 SaO2% (BldA) [Mass fraction] 98 % [facility] 11-01-2021 22:00-0400 Systolic blood pressure 114 mm[Hg] [facility] 11-01-2021 21:00-0400 Diastolic blood pressure 74 mm[Hg] [facility] 11-01-2021 21:00-0400 Heart rate 86 /min [facility] 11-01-2021 21:00-0400 Hourly Rounding [facility] 11-01-2021 21:00-0400 Mean blood pressure 89 mm[Hg] [facility] 11-01-2021 21:00-0400 Respiratory rate 20 /min [facility] 11-01-2021 21:00-0400 SaO2% (BldA) [Mass fraction] 97 % [facility] 11-01-2021 21:00-0400 Systolic blood pressure 120 mm[Hg] [facility] 11-01-2021 19:07-0400 Body temperature 97.88 [degF] [facility] 11-01-2021 19:07-0400 Diastolic blood pressure 78 mm[Hg] [facility] 11-01-2021 19:07-0400 Heart rate 90 /min [facility] 11-01-2021 19:07-0400 Respiratory rate 17 /min [facility] 11-01-2021 19:07-0400 SaO2% (BldA) [Mass fraction] 96 % [facility] 11-01-2021 19:07-0400 Systolic blood pressure 116 mm[Hg] [facility] 08-25-2021 14:41-0400 Blood Pressure Location [facility] 08-25-2021 14:41-0400 Diastolic blood pressure 68 mm[Hg] [facility] 08-25-2021 14:41-0400 Heart rate 86 /min [facility] 08-25-2021 14:41-0400 Respiratory rate 16 /min [facility] 08-25-2021 14:41-0400 SaO2% (BldA) [Mass fraction] 99 % [facility] 08-25-2021 14:41-0400 Systolic blood pressure 120 mm[Hg] [facility] Encounters Encounter Date Encounter Type Care Provider Facility Start: 11-29-2023 End: 11-29-2023 Emergency department patient visit [facility] Start: 11-28-2023 End: 11-28-2023 Emergency department patient visit [facility] Start: 11-25-2023 ambulatory Aicha Butts y:ARIC Gallegos Start: 11-23-2023 End: 11-23-2023 ambulatory SAMANTA CASTELLANOS Not Available Start: 11-01-2023 End: 11-01-2023 ambulatory JOHN PIERCE Facility:[facility] Start: 10-26-2023 Refill Edmundo tilley MD Work Phone: Endocrinology Comment on above: Refill Request Start: 10-17-2023 End: 10-17-2023 ambulatory Irasema Zacarias Facility:[facility] Start: 10-17-2023 End: 10-17-2023 Patient encounter procedure Irasema Zacarias [facility] Start: 10-11-2023 End: 10-11-2023 ambulatory MICHAELA RILEY Not Available Start: 09-22-2023 End: 09-22-2023 ambulatory Irasema Zacarias Facility:[facility] Start: 09-22-2023 End: 09-22-2023 Patient encounter procedure Irasema Zacarias [facility] Start: 09-22-2023 End: 09-22-2023 Well adult monitoring check done Irasema Zacarias [facility] Start: 08-30-2023 End: 08-30-2023 ambulatory KEYLA GUSMAN Not Available Start: 08-26-2023 ambulatory Edmundo tilley MD Work Phone: Endocrinology Comment on above: Mounjaro 5 mg Start: 07-25-2023 End: 07-25-2023 Emergency department patient visit [facility] Start: 07-06-2023 End: 07-06-2023 ambulatory KEILA LYNCH Facility:[facility] Start: 07-01-2023 End: 07-01-2023 ambulatory WILLIE GALINDO Facility: [place] Start: 07-01-2023 End: 07-01-2023 Patient encounter procedure WILLIE GALINDO [facility] [place] Start: 07-01-2023 End: 07-01-2023 ambulatory EDMUNDO DEVLIN Facility:[facility] Start: 06-14-2023 End: 06-14-2023 ambulatory Irasema Zacarias Facility:[facility] Start: 06-03-2023 End: 06-03-2023 ambulatory Aicha Dean Facility:[facility] Start: 06-03-2023 End: 06-03-2023 Patient encounter procedure Aicha [facility] Start: 05-23-2023 End: 05-23-2023 ambulatory HERI BALDERRAMAO Not Available Start: 05-20-2023 End: 05-20-2023 Lab Drop off Irasema Zacarias [facility] Start: 05-20-2023 End: 05-20-2023 ambulatory Irasema Zacarias Facility:[facility] Start: 05-20-2023 End: 05-20-2023 Patient encounter procedure Aicha Dean [facility] Start: 04-06-2023 End: 04-06-2023 Emergency department patient visit [facility] Start: 04-04-2023 End: 04-04-2023 ambulatory BAN BENTLEY Not Available Start: 03-19-2023 End: 03-19-2023 Emergency department patient visit [facility] Start: 03-14-2023 End: 03-14-2023 ambulatory ANNABEL HERNANDEZ Facility:[facility] Start: 03-14-2023 End: 03-14-2023 Patient encounter procedure ANNABEL HERNANDEZ [facility] [place] Start: 03-14-2023 ambulatory Aicha Dean Facilit y:[facility] Start: 12-21-2022 End: 12-21-2022 ambulatory Irasemapita Zacarias Facility:[facility] Start: 12-21-2022 End: 12-21-2022 Patient encounter procedure Irasema Zacarias [facility] Start: 12-21-2022 End: 12-21-2022 Well adult monitoring check done Irasema Zacarias [facility] Start: 10-29-2022 End: 10-29-2022 ambulatory Michael Guzman Other [facility] Other Start: 10-29-2022 Office outpatient visit 15 minutes Michael Guzman [facility] Start: 10-28-2022 End: 10-28-2022 ambulatory Michael Guzman Other [facility] Other Start: 10-28-2022 Telephone encounter Michael [facility] Start: 10-22-2022 End: 10-22-2022 Lab Drop off Roshan [facility] Start: 10-21-2022 End: 10-21-2022 Emergency department patient visit Roshan [facility] Start: 09-13-2022 Telephone encounter Maricruz Abbasi [facility] [place] Comment on above: Smoking Cessation Start: 09-10-2022 End: 09-10-2022 [facility] Susan Garcia PhD Work Phone: Endocrinology [facility] Comment on above: Psychological factor s affecting morbid obesity (HCC) (Primary Dx); Tobacco use disorder Start: 08-18-2022 End: 08-18-2022 ambulatory Michael Guzman Other [facility] Other Start: 08-18-2022 Office outpatient visit 15 minutes Michael Guzman [facility] Start: 07-22-2022 Garfield westbrook MD Work Phone: Endocrinology Start: 06-24-2022 End: 06-24-2022 ambulatory Kimberly Velazquez MD Work Phone: Endocrinology Comment on above: Class 3 severe obesi ty due to excess calories without serious comorbidity with body mass index (BMI) of 40.0 to 44.9 in adult ([facility]) (Primary Dx); PCOS (polycystic ovarian syndrome); Type 2 diabetes mellitus without complication, without long-term current use of insulin ([facility]) Start: 06-24-2022 End: 06-24-2022 Telemedicine consultation with patient Kimberly Velazquez MD Work Phone: [facility] Start: 06-21-2022 Telephone encounter Kimberly gonzales MD Work Phone: Endocrinology Comment on above: Prep for virtual vis it Start: 05-27-2022 Refill Kimberly westbrook MD Work Phone: Endocrinology Start: 05-23-2022 End: 05-23-2022 Emergency department patient visit uJdith Delacruz [facility] Start: 05-11-2022 Refill Kimberly westbrook MD Work Phone: Endocrinology Start: 03-31-2022 End: 03-31-2022 Patient encounter procedure Kimberly Velazquez MD Work Phone: Endocrinology Comment on above: Abnormal glucose (Pr imary Dx); Class 3 severe obesity due to excess calories with serious comorbidity and body mass index (BMI) of 40.0 to 44.9 in adult ([facility]); PCOS (polycystic ovarian syndrome) Start: 02-11-2022 End: 02-11-2022 Off-Site SAUD BLUM [facility] [place] Start: 12-31-2021 End: 12-31-2021 Emergency department patient visit [facility] Start: 12-24-2021 End: 12-25-2021 Emergency department patient visit Celena Di[facility] Start: 12-18-2021 Chart Update James bazzij Work Phone: [facility] 150 Work Phone: Start: 11-24-2021 End: 11-24-2021 Lab Drop off Nerissa Rivera [facility] Start: 11-11-2021 Office outpatient ne w 60 minutes James Rodriguez Work Phone: [facility] Work Phone: Start: 11-03-2021 End: 11-03-2021 Patient encounter procedure Lacey LAZO [facility] Start: 11-01-2021 End: 11-01-2021 Emergency department patient visit Celena Dias [facility] Start: 10-23-2021 End: 10-23-2021 Patient encounter procedure Liz Jo [facility] Start: 08-31-2021 End: 01-04-2022 Recurring Lacey LAZO [facility] Start: 08-25-2021 End: 08-25-2021 Lab Drop off Nerissa Barillas Olindahumberto [facility] Start: 08-25-2021 End: 08-25-2021 Patient encounter procedure Nerissa Rivera [facility] Start: 08-20-2021 End: 08-20-2021 Patient encounter procedure Lacey LAZO [facility] Start: 08-18-2021 Refill Mukund becker MD Work Phone: Pulmonary Medicine Comment on above: Refill Request Start: 08-18-2021 End: 08-18-2021 Patient encounter procedure Sharondaheather CORTEZ [facility] Start: 07-29-2021 End: 07-29-2021 Patient encounter procedure CHERIE VALENTIN [facility] Start: 07-07-2021 End: 07-07-2021 Emergency department patient visit Kanu Becker Ronni Facility:[facility] Start: 07-06-2021 End: 07-06-2021 ambulatory Kem Patel Facility:[facility] Start: 04-03-2021 End: 08-30-2021 Recurring Sharonda CORTE[facility] Start: 06-03-2017 End: 06-04-2017 Ambulatory SHAJI CHOE [...] DTaP,Tdap,Td Vaccine (2 - Td or Tdap) [facility] Start: 09-25-2024 ambulatory [facility] Start: 07-06-2024 Hepatitis B surface antibody level LDL Cholesterol [facility] Start: 01-13-2024 ambulatory Ambulatory Facility:[facility] Start: 01-08-2024 Influenza vaccination Influenz a Vaccine (Season Ended) [facility] Start: 01-04-2024 Hemoglobin A1c measurement HbA1C [facility] Start: 12-12-2023 ambulatory Ambulatory Facility:[facility] Start: 12-05-2023 End: 12-05-2023 Patient encounter procedure 12/05/2023 10:10 AM EDT Office Visit Endocrinology [id number] [address] [place] [id number] Edmundo Devlin MD [address] [place] [address] [place] [address] follow up Endocrinology Comment on above: follow up Start: 03-31-2023 3 comp foot exam completed DIABETIC FOOT EXAM [facility] Start: 03-31-2023 Diabetic foot examination Diabetic Foot Exam [facility] Start: 01-07-2023 Covid-19 Vaccine ( season) Covid-19 Vaccine ( season) [facility] Start: 01-07-2023 Influenza vaccination INFLUENZ A (Season Ended) [facility] Start: 10-11-2022 End: 12-11-2022 NICOTINE & METAB, UR NICOTINE & METAB, UR Lab Routine Tobacco use disorder Expected: 10/11/2022 (Approximate), Expires: 12/11/2022 [facility] Work Phone: Comment on above: Expected: 10/11/2022 (Approximate), Expires: 12/11/2022 Start: 10-11-2022 End: 12-11-2022 TOX SCREEN ROUT UR TOX SCREEN ROUT UR Lab Routine Psychological factors affecting morbid obesity (HCC) Expected: 10/11/2022 (Approximate), Expires: 12/11/2022 [facility] Work Phone: Comment on above: Expected: 10/11/2022 (Approximate), Expires: 12/11/2022 Start: 09-28-2022 Hemoglobin A1c/Hemoglobin.total in Blood HBA1C [facility] Start: 01-13-2022 DWAIN, Provider : Kerri Adkins, Status: Pen, Time: 10:30 AM DWAIN, Provider: Kerri Adkins, Status: Jayden, Time: 10:30 AM [facility] Work Phone: Start: 01-07-2022 Influenza vaccination [facility] Start: 2015 HPV TESTING HPV TESTING [facility] Start: 2015 Screening for malign ant neoplasm of cervix HPV Testing [facility] Start: 12-23-2014 PAP TESTING PAP TESTING [facility] Start: 12-23-2014 Screening for malign ant neoplasm of cervix Pap Testing [facility] Start: 12-23-2012 Screening for malign ant neoplasm of cervix Cervical Cancer Screening [facility] Start: 04-30-2010 Hepatitis B surface antibody level LDL CHOLESTEROL [facility] Start: 2004 Hepatitis A Vaccine (1 of 2 - Risk 2-dose series) Hepatitis A Vaccine (1 of 2 - Risk 2-dose series) [facility] Start: 2004 Urine microalbumin profile DTAP,TDAP,TD (1 - Tdap) [facility] Start: 2003 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 ERIKA DISEASE VISIT ANNUAL PCP TEAM CHRONIC DISEASE VISIT [facility] Start: 2003 HIV SCREENING HIV SCREENING [facility] Start: 2003 HIV screening HIV Screening [facility] Start: 2003 MMR (1 of 2 - Risk 2-dose series) MMR (1 of 2 - Risk 2-dose series) [facility] Start: 1995 Glaucoma screening Dilated Retinal E xam [facility] Start: 1995 Hepatitis B screening URINE ALBUMIN:CREATININE RATIO [facility] Start: 1995 Hepatitis C antibody , confirmatory test DILATED RETINAL EXAM [facility] Start: 1995 Meningococcal B Vaccine: Consider Based On Risk (1 of 4 - Increased Risk) Meningococcal B Vaccine: Consider Based On Risk (1 of 4 - Increased Risk) [facility] Start: 1995 MENINGOCOCCAL B: Consider based on risk (1 of 4 - Increased Risk Bexsero 2-dose series) MENINGOCOCCAL B: Consider based on risk (1 of 4 - Increased Risk Bexsero 2-dose series) [facility] Start: 1991 PNEUMOCOCCAL (1 - PCV) PNEUMOCOCCAL (1 - PCV) [facility] Start: 1991 Pneumococcal vaccination Pneumococcal Vaccine (1 of 2 - PCV) [facility] Start: 1990 COVID-19 VACCINE (1) COVID-19 VACCIN E (1) [facility] Start: 1986 HEPATITIS A (1 of 2 - Risk 2-dose series) HEPATITIS A (1 of 2 - Risk 2-dose series) [facility] Start: 1985 COVID-19 VACCINE (#1) COVID-19 VACCI NE (#1) [facility] Hemoglobin A1c/Hemoglobin.total in Blood HEMOGLOBIN A1C (POC) Lab Routine Abnormal glucose Ordered: 03/31/2022 [facility] Work Phone: Comment on above: [facility] Immunization Date Immunization Notes Care Provider Tasha kessler 11-03-2020 tetanus toxoid, reduced diphtheria toxoid, and acellular pertussis vaccine, adsorbed; Translations: [Boostrix (Tdap)] CHERIE VALENTIN [facility] 03-15-2018 influenza virus vaccine, unspecified formulation Edmundo Devlin MD Work Phone: [facility] 09-19-1997 measles, mumps and rubella virus vaccine Sudhakar Sandro [facility] 11-18-1988 Hib, unspecified formulation Liz Jo [facility] 01-29-1987 measles, mumps and rubella virus vaccine [facility] NEGATED: Highlighted row has not occurred!03-14-2023 influenza virus vaccine, unspecified formulation ANNABLE HERNANDEZ [facility] [place] Comment on above: Result Comment: massiel rgic to eggs NEGATED: Highlighted row has not occurred!09-23-2022 SARS-CoV-2 mRNA (tozinameran 5y-11y) vaccine Roshan Briceno [facility] NEGATED: Highlighted row has not occurred!09-30-2021 SARS-CoV-2 mRNA (tozinameran 5y-11y) vaccine [facility] NEGATED: Highlighted row has not occurred!09-22-2021 SARS-CoV-2 mRNA (tozinameran 5y-11y) vaccine [facility] NEGATED: Highlighted row has not occurred!09-01-2020 SARS-CoV-2 (COVID-19) mRNA-1273 vaccine CHERIE VALENTIN [facility] NEGATED: Highlighted row has not occurred!04-16-2020 influenza virus vaccine, unspecified formulation CHERIE VALENTIN [facility] NEGATED: Highlighted row has not occurred!02-16-2019 influenza virus vaccine, unspecified formulation CHERIE VALENTIN [facility] Payers Date Payer Category Payer Medicare [id number] 2021 Private Health Insurance [id number] 2021 Self-pay 2021 Medicare [id number] 2019 [place] [id number] 2019-Present [phone] [address] [place] [address] Medicaid [id number] 2019 Medicaid MEDICAID [facility] MEDICAID [id number] 2019-Present [phone] [address] [place] [address] Medicaid [id number] 2010 Medicaid [id number] 1985 Unknown [id number] 2.16.840.1.243462.3.579.2.1 259 1985 Unknown [id number] 2.16.840.1.272557.3.579.2.1 259 1985 Unknown [id number] 2.16.840.1.172218.3.579.2.1 259 1985 Unknown [id number] 2.16.840.1.548074.3.579.2.1 259 1985 Unknown [id number] 2.16.840.1.728221.3.579.2.1 259 1985 Unknown [id number] 2.16.840.1.255360.3.579.2.7 27 1985 Unknown [id number] 2.16.840.1.905803.3.579.2.7 27 1985 Unknown [id number] 2.16.840.1.010898.3.579.2.7 27 1985 Unknown [id number] 2.16.840.1.622723.3.579.2.7 27 1985 Unknown [id number] 2.16.840.1.264881.3.579.2.7 27 1985 Unknown [id number] 2.16.840.1.307671.3.579.2.7 27 1985 Unknown [id number] 2.16.840.1.011073.3.579.2.7 27 1985 Unknown [id number] 2.16.840.1.691828.3.579.2.7 27 1985 Unknown [id number] 2.16.840.1.007587.3.579.2.7 27 1985 Unknown [id number] 2.16.840.1.870491.3.579.2.7 27 1985 Unknown [id number] 2.16.840.1.335408.3.579.2.7 27 1985 Unknown [id number] 2.16.840.1.464177.3.579.2.7 27 1985 Unknown [id number] 2.16.840.1.035106.3.579.2.7 27 1985 Unknown [id number] 2.16.840.1.398954.3.579.2.7 27 1985 Unknown [id number] 2.16.840.1.765471.3.579.2.7 27 1985 Unknown [id number] 2.16.840.1.037062.3.579.2.7 27 1985 Unknown [id number] 2.16.840.1.076957.3.579.2.7 27 1959 Medicare [id number] Unknown Unknown [id number] 2.16.840.1.689346.3.579.2.5 31 Unknown [id number] 2.16.840.1.547167.3.579.2.5 31 Social History Date Type Detail Facility Start: 07-23-2021 End: 09-22-2023 Tobacco smoking status Never smoked tobacco (finding) [facility] Comment on above: denies use denies use Tobacco smoking status Never [facility] Comment on above: denies use denies use Start: 2020 End: 07-01-2023 Sex Assigned At Female [facility] Start: 03-31-2022 Tobacco smoking stat us NHIS Ex-smoker [facility] End: 05-09-2006 History of tobacco use Current smoker [facility] End: 05-09-2006 History of tobacco use Cigarette Smoker [facility] Start: 02-20-2020 End: 07-01-2023 Alcohol intake Current non-drinker of alcohol (finding) [facility] Start: 07-09-2008 End: 03-31-2022 Tobacco Comment PATIENT SMOKED 4-5 CIGARETTES DAILY BEFORE QUITTING [facility] Start: 1985 Sex Assigned At Female [facility] Start: 2020 End: 03-31-2022 Cigarettes smoked current (pack per day) - Reported 0.5 [facility] Start: 03-31-2022 Tobacco use and exposure Smokeless tobacco non-user [facility] Start: 03-21-2022 End: 03-31-2022 Exposure to SARS-CoV-2 (event) Not sure [facility] Tobacco [facility] Comment on above: Denies. Tobacco smoking status No Smokin g Status Entered [facility] Start: 06-05-2019 Gender identity Identifies as female gender (finding) [facility] Start: 06-05-2019 Sexual orientation Heterosexual (shiela duff) [facility] Medical Equipment Procedure Code Equipment Code Equipment Origin al Text Equipment Identifier Dates lancets, See Instructions, 100 EA, 3, lancets test daily E11.9, [facility] #[id number], Supply, 175, cm, 04/16/20 15:38:00 EST, Height/Length Dosing, 133.2, kg, 04/16/20 15:38:00 EST, Weight Dosing Start: 04-16-2020 Test strips-True Metrix, See Instructions, 100 EA, 2, Blood glucose test strips. Use daily to test fasting blood sugars and as needed for symptomatic high or low blood sugars, [facility], Supply, 175, cm, 09/15/20 13:52:00 EDT, Hei... Start: 09-16-2020 na, See Instruct ions, 1 bottle(s), 6, provide patient with lancets and glucometer strips. Check glucose daily., [facility] #[id number], Supply Start: 03-29-2019 lancets, See Instructions, 100 EA, 3, lancets test daily E11.9, [facility] #[id number], Supply, 175, cm, 04/16/20 15:38:00 EST, Height/Length Dosing, 133.2, kg, 04/16/20 15:38:00 EST, Weight Dosing Start: 04-16-2020 Test strips-True Metrix, See Instructions, 100 EA, 2, Blood glucose test strips. Use daily to test fasting blood sugars and as needed for symptomatic high or low blood sugars, [facility], Supply, 175, cm, 09/15/20 13:52:00 EDT, Hei... Start: 09-16-2020 na, See Instruct ions, 1 bottle(s), 6, provide patient with lancets and glucometer strips. Check glucose daily., [facility] #[id number], Supply Start: 03-29-2019 lancets, See Instructions, 100 EA, 3, lancets test daily E11.9, [facility] #[id number], Supply, 175, cm, 04/16/20 15:38:00 EST, Height/Length Dosing, 133.2, kg, 04/16/20 15:38:00 EST, Weight Dosing Start: 04-16-2020 Test strips-True Metrix, See Instructions, 100 EA, 2, Blood glucose test strips. Use daily to test fasting blood sugars and as needed for symptomatic high or low blood sugars, [facility], Supply, 175, cm, 09/15/20 13:52:00 EDT, Hei... Start: 09-16-2020 na, See Instruct ions, 1 bottle(s), 6, provide patient with lancets and glucometer strips. Check glucose daily., [facility] #[id number], Supply Start: 03-29-2019 lancets, See Instructions, 100 EA, 3, lancets test daily E11.9, [facility] #[id number], Supply, 175, cm, 04/16/20 15:38:00 EST, Height/Length Dosing, 133.2, kg, 04/16/20 15:38:00 EST, Weight Dosing Start: 04-16-2020 Test strips-True Metrix, See Instructions, 100 EA, 2, Blood glucose test strips. Use daily to test fasting blood sugars and as needed for symptomatic high or low blood sugars, [facility], Supply, 175, cm, 09/15/20 13:52:00 EDT, Hei... Start: 09-16-2020 na, See Instruct ions, 1 bottle(s), 6, provide patient with lancets and glucometer strips. Check glucose daily., [facility] #[id number], Supply Start: 03-29-2019 lancets, See Instructions, 100 EA, 3, lancets test daily E11.9, [facility] #[id number], Supply, 175, cm, 04/16/20 15:38:00 EST, Height/Length Dosing, 133.2, kg, 04/16/20 15:38:00 EST, Weight Dosing Start: 04-16-2020 Test strips-True Metrix, See Instructions, 100 EA, 2, Blood glucose test strips. Use daily to test fasting blood sugars and as needed for symptomatic high or low blood sugars, [facility], Supply, 175, cm, 09/15/20 13:52:00 EDT, Hei... Start: 09-16-2020 na, See Instruct ions, 1 bottle(s), 6, provide patient with lancets and glucometer strips. Check glucose daily., [facility] #[id number], Supply Start: 03-29-2019 lancets, See Instructions, 100 EA, 3, lancets test daily E11.9, [facility] #[id number], Supply, 175, cm, 04/16/20 15:38:00 EST, Height/Length Dosing, 133.2, kg, 04/16/20 15:38:00 EST, Weight Dosing Start: 04-16-2020 Test strips-True Metrix, See Instructions, 100 EA, 2, Blood glucose test strips. Use daily to test fasting blood sugars and as needed for symptomatic high or low blood sugars, [facility], Supply, 175, cm, 09/15/20 13:52:00 EDT, Hei... Start: 09-16-2020 na, See Instruct ions, 1 bottle(s), 6, provide patient with lancets and glucometer strips. Check glucose daily., [facility] #[id number], Supply Start: 03-29-2019 lancets, See Instructions, 100 EA, 3, lancets test daily E11.9, [facility] #[id number], Supply, 175, cm, 04/16/20 15:38:00 EST, Height/Length Dosing, 133.2, kg, 04/16/20 15:38:00 EST, Weight Dosing Start: 04-16-2020 Test strips-True Metrix, See Instructions, 100 EA, 2, Blood glucose test strips. Use daily to test fasting blood sugars and as needed for symptomatic high or low blood sugars, [facility], Supply, 175, cm, 09/15/20 13:52:00 EDT, Hei... Start: 09-16-2020 na, See Instruct ions, 1 bottle(s), 6, provide patient with lancets and glucometer strips. Check glucose daily., [facility] #[id number], Supply Start: 03-29-2019 lancets, See Instructions, 100 EA, 3, lancets test daily E11.9, [facility] #[id number], Supply, 175, cm, 04/16/20 15:38:00 EST, Height/Length Dosing, 133.2, kg, 04/16/20 15:38:00 EST, Weight Dosing Start: 04-16-2020 Test strips-True Metrix, See Instructions, 100 EA, 2, Blood glucose test strips. Use daily to test fasting blood sugars and as needed for symptomatic high or low blood sugars, [facility], Supply, 175, cm, 09/15/20 13:52:00 EDT, Hei... Start: 09-16-2020 na, See Instruct ions, 1 bottle(s), 6, provide patient with lancets and glucometer strips. Check glucose daily., [facility] #[id number], Supply Start: 03-29-2019 lancets, See Instructions, 100 EA, 3, lancets test daily E11.9, [facility] #[id number], Supply, 175, cm, 04/16/20 15:38:00 EST, Height/Length Dosing, 133.2, kg, 04/16/20 15:38:00 EST, Weight Dosing Start: 04-16-2020 Test strips-True Metrix, See Instructions, 100 EA, 2, Blood glucose test strips. Use daily to test fasting blood sugars and as needed for symptomatic high or low blood sugars, [facility], Supply, 175, cm, 09/15/20 13:52:00 EDT, Hei... Start: 09-16-2020 na, See Instruct ions, 1 bottle(s), 6, provide patient with lancets and glucometer strips. Check glucose daily., [facility] #[id number], Supply Start: 03-29-2019 lancets, See Instructions, 100 EA, 3, lancets test daily E11.9, [facility] #[id number], Supply, 175, cm, 04/16/20 15:38:00 EST, Height/Length Dosing, 133.2, kg, 04/16/20 15:38:00 EST, Weight Dosing Start: 04-16-2020 Test strips-True Metrix, See Instructions, 100 EA, 2, Blood glucose test strips. Use daily to test fasting blood sugars and as needed for symptomatic high or low blood sugars, [facility], Supply, 175, cm, 09/15/20 13:52:00 EDT, Hei... Start: 09-16-2020 na, See Instruct ions, 1 bottle(s), 6, provide patient with lancets and glucometer strips. Check glucose daily., [facility] #[id number], Supply Start: 03-29-2019 lancets, See Instructions, 100 EA, 3, lancets test daily E11.9, [facility] #[id number], Supply, 175, cm, 04/16/20 15:38:00 EST, Height/Length Dosing, 133.2, kg, 04/16/20 15:38:00 EST, Weight Dosing Start: 04-16-2020 Test strips-True Metrix, See Instructions, 100 EA, 2, Blood glucose test strips. Use daily to test fasting blood sugars and as needed for symptomatic high or low blood sugars, [facility], Supply, 175, cm, 09/15/20 13:52:00 EDT, Hei... Start: 09-16-2020 na, See Instruct ions, 1 bottle(s), 6, provide patient with lancets and glucometer strips. Check glucose daily., [facility] #[id number], Supply Start: 03-29-2019 lancets, See Instructions, 100 EA, 3, lancets test daily E11.9, [facility] #[id number], Supply, 175, cm, 04/16/20 15:38:00 EST, Height/Length Dosing, 133.2, kg, 04/16/20 15:38:00 EST, Weight Dosing Start: 04-16-2020 Test strips-True Metrix, See Instructions, 100 EA, 2, Blood glucose test strips. Use daily to test fasting blood sugars and as needed for symptomatic high or low blood sugars, [facility], Supply, 175, cm, 09/15/20 13:52:00 EDT, Hei... Start: 09-16-2020 na, See Instruct ions, 1 bottle(s), 6, provide patient with lancets and glucometer strips. Check glucose daily., [facility] #[id number], Supply Start: 03-29-2019 lancets, See Instructions, 100 EA, 3, lancets test daily E11.9, [facility] #[id number], Supply, 175, cm, 04/16/20 15:38:00 EST, Height/Length Dosing, 133.2, kg, 04/16/20 15:38:00 EST, Weight Dosing Start: 04-16-2020 Test strips-True Metrix, See Instructions, 100 EA, 2, Blood glucose test strips. Use daily to test fasting blood sugars and as needed for symptomatic high or low blood sugars, [facility], Supply, 175, cm, 09/15/20 13:52:00 EDT, Hei... Start: 09-16-2020 na, See Instruct ions, 1 bottle(s), 6, provide patient with lancets and glucometer strips. Check glucose daily., [facility] #[id number], Supply Start: 03-29-2019 lancets, See Instructions, 100 EA, 3, lancets test daily E11.9, [facility] #[id number], Supply, 175, cm, 04/16/20 15:38:00 EST, Height/Length Dosing, 133.2, kg, 04/16/20 15:38:00 EST, Weight Dosing Start: 04-16-2020 Test strips-True Metrix, See Instructions, 100 EA, 2, Blood glucose test strips. Use daily to test fasting blood sugars and as needed for symptomatic high or low blood sugars, [facility], Supply, 175, cm, 09/15/20 13:52:00 EDT, Hei... Start: 09-16-2020 na, See Instruct ions, 1 bottle(s), 6, provide patient with lancets and glucometer strips. Check glucose daily., [facility] #[id number], Supply Start: 03-29-2019 lancets, See Instructions, 100 EA, 3, lancets test daily E11.9, [facility] #[id number], Supply, 175, cm, 04/16/20 15:38:00 EST, Height/Length Dosing, 133.2, kg, 04/16/20 15:38:00 EST, Weight Dosing Start: 04-16-2020 Test strips-True Metrix, See Instructions, 100 EA, 2, Blood glucose test strips. Use daily to test fasting blood sugars and as needed for symptomatic high or low blood sugars, [facility], Supply, 175, cm, 09/15/20 13:52:00 EDT, Hei... Start: 09-16-2020 na, See Instruct ions, 1 bottle(s), 6, provide patient with lancets and glucometer strips. Check glucose daily., [facility] #[id number], Supply Start: 03-29-2019 Start: 06-15-2018 lancets, See Instructions, 100 EA, 3, lancets test daily E11.9, [facility] #[id number], Supply, 175, cm, 04/16/20 15:38:00 EST, Height/Length Dosing, 133.2, kg, 04/16/20 15:38:00 EST, Weight Dosing Start: 04-16-2020 Test strips-True Metrix, See Instructions, 100 EA, 2, Blood glucose test strips. Use daily to test fasting blood sugars and as needed for symptomatic high or low blood sugars, [facility], Supply, 175, cm, 09/15/20 13:52:00 EDT, Hei... Start: 09-16-2020 na, See Instruct ions, 1 bottle(s), 6, provide patient with lancets and glucometer strips. Check glucose daily., [facility] #[id number], Supply Start: 03-29-2019 lancets, See Instructions, 100 EA, 3, lancets test daily E11.9, [facility] #[id number], Supply, 175, cm, 04/16/20 15:38:00 EST, Height/Length Dosing, 133.2, kg, 04/16/20 15:38:00 EST, Weight Dosing Start: 04-16-2020 Test strips-True Metrix, See Instructions, 100 EA, 2, Blood glucose test strips. Use daily to test fasting blood sugars and as needed for symptomatic high or low blood sugars, [facility], Supply, 175, cm, 09/15/20 13:52:00 EDT, Hei... Start: 09-16-2020 na, See Instruct ions, 1 bottle(s), 6, provide patient with lancets and glucometer strips. Check glucose daily., [facility] #[id number], Supply Start: 03-29-2019 lancets, See Instructions, 100 EA, 3, lancets test daily E11.9, [facility] #[id number], Supply, 175, cm, 04/16/20 15:38:00 EST, Height/Length Dosing, 133.2, kg, 04/16/20 15:38:00 EST, Weight Dosing Start: 04-16-2020 Test strips-True Metrix, See Instructions, 100 EA, 2, Blood glucose test strips. Use daily to test fasting blood sugars and as needed for symptomatic high or low blood sugars, [facility], Supply, 175, cm, 09/15/20 13:52:00 EDT, Hei... Start: 09-16-2020 na, See Instruct ions, 1 bottle(s), 6, provide patient with lancets and glucometer strips. Check glucose daily., [facility] #[id number], Supply Start: 03-29-2019 lancets, See Instructions, 100 EA, 3, lancets test daily E11.9, [facility] #[id number], Supply, 175, cm, 04/16/20 15:38:00 EST, Height/Length Dosing, 133.2, kg, 04/16/20 15:38:00 EST, Weight Dosing Start: 04-16-2020 Test strips-True Metrix, See Instructions, 100 EA, 2, Blood glucose test strips. Use daily to test fasting blood sugars and as needed for symptomatic high or low blood sugars, [facility], Supply, 175, cm, 09/15/20 13:52:00 EDT, Height/Length Dosing, 128, kg, 09/15/20 13:52:00 EDT, Weight Dosing Start: 09-16-2020 na, See Instruct ions, 1 bottle(s), 6, provide patient with lancets and glucometer strips. Check glucose daily., [facility] #[id number], Supply Start: 03-29-2019 lancets, See Instructions, 100 EA, 3, lancets test daily E11.9, [facility] #[id number], Supply, 175, cm, 04/16/20 15:38:00 EST, Height/Length Dosing, 133.2, kg, 04/16/20 15:38:00 EST, Weight Dosing Start: 04-16-2020 Test strips-True Metrix, See Instructions, 100 EA, 2, Blood glucose test strips. Use daily to test fasting blood sugars and as needed for symptomatic high or low blood sugars, [facility], Supply, 175, cm, 09/15/20 13:52:00 EDT, Height/Length Dosing, 128, kg, 09/15/20 13:52:00 EDT, Weight Dosing Start: 09-16-2020 na, See Instruct ions, 1 bottle(s), 6, provide patient with lancets and glucometer strips. Check glucose daily., [facility] #[id number], Supply Start: 03-29-2019 lancets, See Instructions, 100 EA, 3, lancets test daily E11.9, [facility] #[id number], Supply, 175, cm, 04/16/20 15:38:00 EST, Height/Length Dosing, 133.2, kg, 04/16/20 15:38:00 EST, Weight Dosing Start: 04-16-2020 Test strips-True Metrix, See Instructions, 100 EA, 2, Blood glucose test strips. Use daily to test fasting blood sugars and as needed for symptomatic high or low blood sugars, [facility], Supply, 175, cm, 09/15/20 13:52:00 EDT, Height/Length Dosing, 128, kg, 09/15/20 13:52:00 EDT, Weight Dosing Start: 09-16-2020 na, See Instruct ions, 1 bottle(s), 6, provide patient with lancets and glucometer strips. Check glucose daily., [facility] #[id number], Supply Start: 03-29-2019 lancets, See Instructions, 100 EA, 3, lancets test daily E11.9, [facility] #[id number], Supply, 175, cm, 04/16/20 15:38:00 EST, Height/Length Dosing, 133.2, kg, 04/16/20 15:38:00 EST, Weight Dosing Start: 04-16-2020 Test strips-True Metrix, See Instructions, 100 EA, 2, Blood glucose test strips. Use daily to test fasting blood sugars and as needed for symptomatic high or low blood sugars, [facility], Supply, 175, cm, 09/15/20 13:52:00 EDT, Height/Length Dosing, 128, kg, 09/15/20 13:52:00 EDT, Weight Dosing Start: 09-16-2020 na, See Instruct ions, 1 bottle(s), 6, provide patient with lancets and glucometer strips. Check glucose daily., [facility] #[id number], Supply Start: 03-29-2019 lancets, See Instructions, 100 EA, 3, lancets test daily E11.9, [facility] #[id number], Supply, 175, cm, 04/16/20 15:38:00 EST, Height/Length Dosing, 133.2, kg, 04/16/20 15:38:00 EST, Weight Dosing Start: 04-16-2020 Test strips-True Metrix, See Instructions, 100 EA, 2, Blood glucose test strips. Use daily to test fasting blood sugars and as needed for symptomatic high or low blood sugars, [facility], Supply, 175, cm, 09/15/20 13:52:00 EDT, Height/Length Dosing, 128, kg, 09/15/20 13:52:00 EDT, Weight Dosing Start: 09-16-2020 na, See Instruct ions, 1 bottle(s), 6, provide patient with lancets and glucometer strips. Check glucose daily., [facility] #[id number], Supply Start: 03-29-2019 lancets, See Instructions, 100 EA, 3, lancets test daily E11.9, [facility] #[id number], Supply, 175, cm, 04/16/20 15:38:00 EST, Height/Length Dosing, 133.2, kg, 04/16/20 15:38:00 EST, Weight Dosing Start: 04-16-2020 Test strips-True Metrix, See Instructions, 100 EA, 2, Blood glucose test strips. Use daily to test fasting blood sugars and as needed for symptomatic high or low blood sugars, [facility], Supply, 175, cm, 09/15/20 13:52:00 EDT, Height/Length Dosing, 128, kg, 09/15/20 13:52:00 EDT, Weight Dosing Start: 09-16-2020 na, See Instruct ions, 1 bottle(s), 6, provide patient with lancets and glucometer strips. Check glucose daily., [facility] #[id number], Supply Start: 03-29-2019 lancets, See Instructions, 100 EA, 3, lancets test daily E11.9, [facility] #[id number], Supply, 175, cm, 04/16/20 15:38:00 EST, Height/Length Dosing, 133.2, kg, 04/16/20 15:38:00 EST, Weight Dosing Start: 04-16-2020 Test strips-True Metrix, See Instructions, 100 EA, 2, Blood glucose test strips. Use daily to test fasting blood sugars and as needed for symptomatic high or low blood sugars, [facility], Supply, 175, cm, 09/15/20 13:52:00 EDT, Height/Length Dosing, 128, kg, 09/15/20 13:52:00 EDT, Weight Dosing Start: 09-16-2020 na, See Instruct ions, 1 bottle(s), 6, provide patient with lancets and glucometer strips. Check glucose daily., [facility] #[id number], Supply Start: 03-29-2019 lancets, See Instructions, 100 EA, 3, lancets test daily E11.9, [facility] #[id number], Supply, 175, cm, 04/16/20 15:38:00 EST, Height/Length Dosing, 133.2, kg, 04/16/20 15:38:00 EST, Weight Dosing Start: 04-16-2020 Test strips-True Metrix, See Instructions, 100 EA, 2, Blood glucose test strips. Use daily to test fasting blood sugars and as needed for symptomatic high or low blood sugars, [facility], Supply, 175, cm, 09/15/20 13:52:00 EDT, Height/Length Dosing, 128, kg, 09/15/20 13:52:00 EDT, Weight Dosing Start: 09-16-2020 na, See Instruct ions, 1 bottle(s), 6, provide patient with lancets and glucometer strips. Check glucose daily., [facility] #[id number], Supply Start: 03-29-2019 lancets, See Instructions, 100 EA, 3, lancets test daily E11.9, [facility] #[id number], Supply, 175, cm, 04/16/20 15:38:00 EST, Height/Length Dosing, 133.2, kg, 04/16/20 15:38:00 EST, Weight Dosing Start: 04-16-2020 Test strips-True Metrix, See Instructions, 100 EA, 2, Blood glucose test strips. Use daily to test fasting blood sugars and as needed for symptomatic high or low blood sugars, [facility], Supply, 175, cm, 09/15/20 13:52:00 EDT, Height/Length Dosing, 128, kg, 09/15/20 13:52:00 EDT, Weight Dosing Start: 09-16-2020 na, See Instruct ions, 1 bottle(s), 6, provide patient with lancets and glucometer strips. Check glucose daily., [facility] #[id number], Supply Start: 03-29-2019 lancets, See Instructions, 100 EA, 3, lancets test daily E11.9, [facility] #[id number], Supply, 175, cm, 04/16/20 15:38:00 EST, Height/Length Dosing, 133.2, kg, 04/16/20 15:38:00 EST, Weight Dosing Start: 04-16-2020 Test strips-[employer], See Instructions, 100 EA, 2, Blood glucose test strips. Use daily to test fasting blood sugars and as needed for symptomatic high or low blood sugars, [facility], Supply, 175, cm, 09/15/20 13:52:00 EDT, Height/Length Dosing, 128, kg, 09/15/20 13:52:00 EDT, Weight Dosing Start: 09-16-2020 na, See Instruct ions, 1 bottle(s), 6, provide patient with lancets and glucometer strips. Check glucose daily., [facility] #[id number], Supply Start: 03-29-2019 lancets, See Instructions, 100 EA, 3, lancets test daily E11.9, [facility] #[id number], Supply, 175, cm, 04/16/20 15:38:00 EST, Height/Length Dosing, 133.2, kg, 04/16/20 15:38:00 EST, Weight Dosing Start: 04-16-2020 Test strips-[employer], See Instructions, 100 EA, 2, Blood glucose test strips. Use daily to test fasting blood sugars and as needed for symptomatic high or low blood sugars, [facility], Supply, 175, cm, 09/15/20 13:52:00 EDT, Height/Length Dosing, 128, kg, 09/15/20 13:52:00 EDT, Weight Dosing Start: 09-16-2020 na, See Instruct ions, 1 bottle(s), 6, provide patient with lancets and glucometer strips. Check glucose daily., [facility] #[id number], Supply Start: 03-29-2019 lancets, See Instructions, 100 EA, 3, lancets test daily E11.9, [facility] #[id number], Supply, 175, cm, 04/16/20 15:38:00 EST, Height/Length Dosing, 133.2, kg, 04/16/20 15:38:00 EST, Weight Dosing Start: 04-16-2020 Test strips-[employer], See Instructions, 100 EA, 2, Blood glucose test strips. Use daily to test fasting blood sugars and as needed for symptomatic high or low blood sugars, [facility], Supply, 175, cm, 09/15/20 13:52:00 EDT, Height/Length Dosing, 128, kg, 09/15/20 13:52:00 EDT, Weight Dosing Start: 09-16-2020 na, See Instruct ions, 1 bottle(s), 6, provide patient with lancets and glucometer strips. Check glucose daily., [facility] #[id number], Supply Start: 03-29-2019 Goals Date Patient Goal Desired Activity /State 03-29-2019 Functional Status Date Assessment Result Facility 11-29-2023 Functional Status N/A [facility] 11-28-2023 Functional Status N/A [facility] 09-22-2023 Functional Status N/A [facility] 07-25-2023 Functional Status N/A [facility] 07-01-2023 Functional Status N/A [facility] 05-20-2023 Functional Status N/A [facility] 04-06-2023 Functional Status N/A [facility] 03-19-2023 Functional Status N/A [facility] 03-14-2023 Functional Status N/A [facility] 12-21-2022 Functional Status N/A [facility] 10-21-2022 Functional Status N/A [facility] 05-23-2022 Functional Status N/A [facility] 02-11-2022 Functional Status Telehealth Patient [facility] 12-31-2021 Functional Status N/A [facility] 12-24-2021 N/A [facility] 11-03-2021 Functional Status N/A [facility] 11-01-2021 Functional Status N/A [facility] Clinical Notes 01-26-2010 to 11-29-2023 Note Date & Type Note Facility 11-29-2023 Hospital Discharg e instructions Patient Education 11/29/2023 20:59:57 Cellulitis, Adult, Ckna-fx-Geqn Cellulitis, Adult Cellulitis is a skin infection. [...] Follow these instructions at home: Medicines Take fibg-fnc-mfxrxyw and prescription medicines only as told by [...] provider. Document Revised: 02/04/2022 Document Reviewed: 02/04/2022 [employer] Patient Education 2022 [employer]. Follow Up Care 11/29/2023 20:02:37 With:Irasema Zacarias Address: [address] [place] [address] [place] [address] Business (1) When:12/02/2023 20:41:42 Comments:Stop the clindamycin and start the Bactrim and Keflex. He can use naproxen every 12 hours as needed for pain in addition to pain medicine impression prescribed last night. Please follow-up with your primary care doctor for further evaluation management. Please return to the ED for any new or worsening symptoms. [facility] 11-29-2023 Note ED Patient Education Note Infectious [...] these instructions at home: Medicines ? Take rikc-cyj-aumnndx and prescription medicines only as told by [...] provider. Document Revised: 02/04/2022 Document Reviewed: 02/04/2022 [employer] Patient Education ? 2022 [employer]. [facility] 11-29-2023 Evaluation + Plan note Extrac mayur from: Title:ED Note Author:Celena Dias DO Date :11/29/23 Cellulitis of left breast (N 61.0: Mastitis without abscess) Orders: cephalexin, 500 mg = 1 cap(s), Oral, TID, X 10 day(s), # 30 cap(s), Refills(s) 0, Pharmacy: [facility] #[id number], 175, cm, 11/29/23 20:31:00 EDT, Height/Length Dosing, [...] pain, # 20 tab(s), Refills(s) 0, Pharmacy: [facility] #[id number], 175, cm, 11/29/23 20:31:00 EDT, Height/Length Dosing, 139, kg, 11/29/23 20:31:00 EDT, Weight Dosing sulfamethoxazole-trimethoprim, 1 tab(s), Oral, BID, 20 tab(s), Refill(s) 0, [facility] #[id number], 175, cm, 11/29/23 20:31:00 EDT, Height/Length Dosing, 139, kg, 11/29/23 20:31:00 EDT, Weight Dosing sulfamethoxazole-trimethoprim, 1 tab(s), Tab, Oral, Once, Stop date 11/29/23 20:39:00 EDT, STAT, Start date 11/29/23 20:39:00 EDT Future Appointments Appointment Date:12/12/2023 03:20:00 PM Scheduled Provider:Daron Hernandez MD Location:[facility] Appointment Type:GS New 30 Appointment Date:01/13/2024 10:00:00 AM Scheduled Provider:KYUNG PAUL PA-C Location:[facility] Appointment Type:URO New Patient Appointment Date:09/25/2024 08:00:00 AM Scheduled Provider: Location:[facility] Appointment Type: Medicare Wellness Subsequent Future Scheduled Tests Laboratory* HgbA1c 12/21/22 * FSH and LH 05/20/23 * Insulin Free and Total 05/20/23 * TSH With T4fr Reflex 05/20/23 * TSH With T4fr Reflex 12/21/22 * Beta hCG Quantitative 05/20/23 * Cortisol 05/20/23 * Lipid Panel 12/21/22 * Prolactin Level 05/20/23 [facility]24 Hospital Discharge instructions Patient Education 11/28/2023 21:00:36 [...] Follow these instructions at home: Medicines Take lrdz-vza-xwozktp and prescription medicines only as told by [...] soap and water arenot available, use hand loom changeover operator. Check your abscess every day for signs [...] provider. Document Revised: 07/29/2022 Document Reviewed: 02/01/2022 [employer] Patient Education 2022 [employer]. 11/28/2023 21:00:36 Cellulitis, Adult, Zyop-cf-Xrch Cellulitis, Adult Cellulitis is a skin infection. [...] Follow these instructions at home: Medicines Take hdtq-saa-tryderk and prescription medicines only as told by [...] provider. Document Revised: 02/04/2022 Document Reviewed: 02/04/2022 [employer] Patient Education 2022 [employer]. Follow Up Care 11/28/2023 19:05:50 With:Daron Hernandez Address:Unknown When:12/01/2023 20:36:49 Comments:Call for diagnosis based follow up With:Urban PLUNKETT Address: [address] [place], [place] [address]dict Johana, [address] [address]- Business (1) When:12/01/2023 20:36:36 Comments:Call for diagnosis based follow up With:Irasema Zacarias Address: [address], [place] [address]- Business (1) When:12/01/2023 20:36:33 Comments:Call Dr for diagnosis based follow up [facility]07-22-2024 NoteED Patient Education Note Infectious Disease Skin [...] these instructions at home: Medicines ? Take sluv-lqc-sgambzf and prescription medicines only as told by [...] and water are not available, use hand loom changeover operator. ? Check your abscess every day for [...] any questions you pat (more content not included)...[facility]06-25-2024 NoteHNO ID: [id number] Author: JOHN PIERCE PSYD Service: ? Author Type: Psychologist Type: Progress Notes Filed: 11/03/2023 11:33 Note Text: [facility] EVALUATION DATE OF SERVICE: 11/01/2023 TIME OF SERVICE: 1:00PM to 2:19PM COST CENTER: [facility] CPT CODE: - 42026 Brief Emotional/Behavioral Assessment with scoring/documentation - [id number] Virtual Psych Diagnostic Eval BILLING CODE: ENDO PSYL ELIZABETH Pierce BMI Surgical Pathway Visit type: Psychology Visit SESSION #: 1 The patient signed the Informed Consent for Psychological Evaluation AND Care Form via [employer] (see consent dated 10/27/23), and the [facility] care insurance benefits, fees for service, emergency procedures, and the limits of confidentiality that may pertain with any given case were discussed with the patient. The patient was given a copy of the consent form via [employer]. I have communicated my name and active licensure. The patient's identity and physical location were verified at the time of this visit. Either the patient or their legal provider relations representative has been informed of the risks [...] technology to benefit from virtual format. Platform: [employer] for [employer] Address of Patient During Time of Virtual Visit: Pt home at [address] [facility] [address] Emergency Contact: Jerrell Ibrahim Emergency Department at [address] [place] [address] IDENTIFYING INFORMATION Ms. Alma Delia Pearl is [...] DX W/WO SPEC BR/WA SPX 03/[address] [place] [address] Dae Reynolds. endometriosis, lasered. Stage??, PCOS ovaries LAPS ABD PRTMANDOMENTUM DX W/WO SPEC BR/WA SPX 08/05/2008 Dr. Natalie Yanez. Operation: Diagnostic laparoscopy (hx. chronic pelvic pain. PAST SURGICAL HISTORY OF 05/12 laser surgery endometrosis TONSILLECTOMY PRIMARY/SECONDARY Tonsillectomy History of psychological complications pos (more content not included)... [facility]06-19-2024 Telephone encounter Note* Telephone Encounter - Mayco [...] PSS NOTE: Patient needs scheduled appointment No [facility]06-19-2024 Miscellaneous Notes* Telephone Encounter - Mayco Fagan [...] needs scheduled appointment [facility] Discharge instructions Follow Up Care 09/28/2023 11:29:50 With:Irasema Love Address: [address], [place] [address]- When:Within 1 Year(s) Comments:annual wellness [facility] 05-21-2024 Telephone encounter Note* [...] PSS NOTE: Patient needs scheduled appointment No [facility]05-21-2024 Miscellaneous Notes* Telephone Encounter - Peyton Thomas [...] needs scheduled appointment No [facility] Hospital Discharge instructions Patient Education 09/22/2023 10:39:53 [...] Carrots. Green beans. Tomatoes. Peppers. Onions. Cucumbers. [place] sprouts. Grains Whole grains, such as whole-wheat [...] meet with a certified diabetes care and primary education professor? Do I need to meet with a dietitian? What number can I call if I have questions? When are the best times to check my blood glucose? Where to find more information: [place] Diabetes Association: diabetes.org Academy of Nutrition and Dietetics: eatright.org National [place] of Diabetes and Digestive and Kidney Diseases: [...] provider. Document Revised: 11/26/2020 Document Reviewed: 11/26/2020 [employer] Patient Education 2022 [employer]. 09/22/2023 10:39:52 Exercising to Lose Weight Exercising [...] your health care provider or diet and clinical nutritionist (dietitian). This may include: ?Eating fewer calories. [...] provider. Document Revised: 06/21/2021 Document Reviewed: 06/21/2021 [employer] Patient Education 2022 [employer]. 09/22/2023 10:39:50 BMI for Adults BMI for [...] Centers for Disease Control and Prevention: www.cdc.gov [place] [employer] Association: www.heart.org National Heart, Lung, and Blood [place]: www.nhlbi.nih.gov Summary Body mass index (BMI) is [...] provider. Document Revised: 01/16/2020 Document Reviewed: 11/23/2019 [employer] Patient Education 2022 [employer]. [facility] 03-18-2024 Hospital Discharge instructions Patient Education 07/25/2023 21:40:17 Nausea, Adult, Vpab-cl-Flam Nausea, Adult Nausea is feeling like you [...] fruit juice). ?Low-calorie sports drinks. Eat bland, touj-uj-pknizb foods in small amounts as you are able, such as: ?Bananas. ?Applesauce. ?Rice. ?Low-fat (lean) meats. ?Cayucos. ?Crackers. Avoid drinking fluids that have a lot of sugar or caffeine in them. This includes energy drinks, sports drinks, and soda. Avoid alcohol. Avoid spicy or fatty foods. General instructions Take kkuo-wry-sxjfzdy and prescription medicines only as told by [...] cannot use soap and water, use hand loom changeover operator. Make sure that everyone in your home [...] drink what your doctor tells you. Take xpkc-lcl-ecjgkwb and prescription medicines only as told by your doctor. Contact a doctor right away if your symptoms get worse or you have new symptoms. Keep all follow-up visits. This information is not intended to replace advice given to you by your health care provider. Make sure you discuss any questions you have with your health care provider. Document Revised: 10/30/2021 Document Reviewed: 10/30/2021 [employer] Patient Education 2022 [employer]. 07/25/2023 21:40:17 Rectal Bleeding Rectal Bleeding Rectal [...] help reduce bleeding and discomfort: Medicines Take miql-dub-whsbekn and prescription medicines only as told by [...] to keep your urine pale yellow. Take zcny-sbt-dxpxaxs or prescription medicines. Eat foods that are [...] provider. Document Revised: 03/26/2020 Document Reviewed: 03/26/2020 [employer] Patient Education 2022 [employer]. Follow Up Care 07/25/2023 18:18:25 With:Marilia Brown Address: [address] [place] [address], [address] [phone] Business (1) When:07/28/2023 21:13:49 Comments:Call Dr for diagnosis based follow up With:Irasema Zacarias Address: [facility] [address], [address] [place] [id number] [facility] (1) When:Within 3 Day(s) [facility]02-23-2024 Hospital Discharge instructions Patient Education 07/01/2023 12:56:32 [...] saline washes). ?Medicines that treat allergies (antihistamines). ?Arkj-dog-jjbcysr pain relievers. If caused by bacteria, your [...] at home: Medicines Take, use, or apply ceqa-uam-bfefnwi and prescription medicines only as told by [...] and water are not available, use hand loom changeover operator. Do not smoke. Avoid being around people [...] provider. Document Revised: 03/30/2022 Document Reviewed: 03/30/2022 [employer] Patient Education 2022 [employer]. [facility] [place] 02-23-2024 NoteHNO ID: [id number] Author: EDMUNDO DEVLIN MD Service: ? 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 Answe (more content not included)...[facility]01-12-2024 Hospital Discharge instructions Patient Education 05/20/2023 10:36:01 [...] makes. Follow these instructions at home: Take rcsm-uch-gmxjqil and prescription medicines only as told by [...] provider. Document Revised: 10/02/2020 Document Reviewed: 10/02/2020 [employer] Patient Education 2022 [employer]. 05/20/2023 10:35:56 Dysmenorrhea Dysmenorrhea Dysmenorrhea refers to [...] to help relieve pain. General instructions Take xljw-xov-lcutish and prescription medicines only as told by [...] provider. Document Revised: 12/10/2020 Document Reviewed: 12/10/2020 [employer] Patient Education 2022 [employer]. 05/20/2023 10:35:53 Galactorrhea Galactorrhea Galactorrhea is an [...] rubbing on your nipples. General instructions Take egjw-scz-pthqfhs and prescription medicines only as told by [...] provider. Document Revised: 02/23/2021 Document Reviewed: 02/23/2021 [employer] Patient Education 2022 [employer]. [facility] 11-29-2023 Hospital Discharge instructions Patient Education 04/06/2023 16:15:24 Nausea and Vomiting, Adult, Jfbd-fn-Gctc Nausea and Vomiting, Adult Nausea is feeling [...] fruit juice). ?Low-calorie sports drinks. Eat bland, hrrb-wn-axdgye foods in small amounts as you are able, such as: ?Bananas. ?Applesauce. ?Rice. ?Low-fat (lean) meats. ?Cayucos. ?Crackers. Avoid drinking fluids that have a lot of sugar or caffeine in them. This includes energy drinks, sports drinks, and soda. Avoid alcohol. Avoid spicy or fatty foods. General instructions Take qqsy-wak-mtudhcy and prescription medicines only as told by your doctor. Drink enough fluid to keep your pee (urine) pale yellow. Wash your hands often with soap and water for at least 20 seconds. If you cannot use soap and water, use hand loom changeover operator. Make sure that everyone in your home [...] your doctor about eating and drinking. Take fcfe-fcq-xzhkabt and prescription medicines only as told by your doctor. Contact your doctor if your symptoms get worse or you have new symptoms. Keep all follow-up visits. This information is not intended to replace advice given to you by your health care provider. Make sure you discuss any questions you have with your health care provider. Document Revised: 10/30/2021 Document Reviewed: 10/30/2021 [employer] Patient Education 2022 [employer]. Follow Up Care 04/06/2023 13:50:03 With:Silvia YOUNG Address: [address] [place] [id number] Business (1) When:04/09/2023 15:52:06 Comments:Follow-up with your primary care provider in 3 to 5 days. If symptoms worsen, do not improve, or new symptoms arise please report back to emergency department for further evaluation. [facility]11-29-2023 Evaluation + Plan noteExtracted from: Title:ED Note Author:Luis Almanza PA-C te:04/06/23 Nausea and vomiting (R11.2: Nausea with vomiting, unspecified) Orders: ondansetron, 4 mg = 2 mL, Injection, IV Push, Once, Stop date 04/06/23 14:00:00 EST, STAT, Start date 04/06/23 14:00:00 EST, 04/06/23 14:00:00 EST ondansetron, 4 mg = 1 tab(s), Oral, q8hr, PRN Nausea/Vomiting, # 30 tab(s), Refills(s) 0, [id number], 173, cm, 04/06/23 13:57:00 EST, Height/Length Dosing, 134.1, kg, 04/06/23 13:57:00 EST, Weight Dosing promethazine, 12.5 mg = 1 supp, Rectal, q4hr, PRN Nausea/Vomiting, # 6 EA, Refills(s) 0, [id number], 173, cm, 04/06/23 13:57:00 EST, Height/Length Dosing, [...] Appointment Date:06/24/2023 10:20:00 AM Scheduled Provider:Irasema Love Location:[facility] Appointment Type: Open Appointment Date:09/22/2023 09:30:00 AM Scheduled Provider: Location:[facility] Appointment Type:FM Medicare Wellness Subsequent Future Scheduled Tests Laboratory* HgbA1c 12/21/22 * Microalbumin Level Urine 12/21/22 * TSH With T4fr Reflex 12/21/22 * Lipid Panel 12/21/22 [facility] Hospital Discharge instructions Patient Education 03/19/2023 16:51:40 [...] Follow these instructions at home: Medicines Take cdgt-lqs-zwiirce and prescription medicines only as told by your health care provider. Ask your health care provider if the medicine prescribed to you: ?Requires you to avoid driving or using heavy machinery. ?Can cause constipation. You may need to take these actions to prevent or treat constipation: ?Drink enough fluid to keep your urine pale yellow. ?Take ckek-pro-nfercsi or prescription medicines. ?Eat foods that are [...] provider. Document Revised: 08/17/2019 Document Reviewed: 06/07/2019 [employer] Patient Education 2022 [employer]. Follow Up Care 03/19/2023 13:23:56 With:David Eubanks Address: [address] [place] [address] Business (1) When:03/22/2023 16:51:25 Comments:Call the office [...] fever, or any new or worsening symptoms. [facility]11-11-20[facility] Evaluation + Plan noteExtracted from: Title:ED Note [...] Appointment Date:06/24/2023 10:20:00 AM Scheduled Provider:Irasema Love Location:[facility] Appointment Type: Open Appointment Date:09/22/2023 09:30:00 AM Scheduled Provider: Location:[facility] Appointment Type:FM Medicare Wellness Subsequent Future Scheduled Tests Laboratory* HgbA1c 12/21/22 * Microalbumin Level Urine 12/21/22 * TSH With T4fr Reflex 12/21/22 * Lipid Panel 12/21/22 [facility] Hospital Discharge instructions Patient Education 03/14/2023 21:01:40 Asthma, Adult, Ucwu-we-Rrit Asthma, Adult Asthma is a condition that [...] (dander). Cockroaches. Pollen. Air pollution (like household behavior interventionist, wood smoke, smog, or chemical odors). What [...] of polyester or cotton. General instructions Take kjix-kbg-jcrturt and prescription medicines only as told by [...] pollute the air. These may include household behavior interventionist, wood smoke, smog, or chemical odors. This information is not intended to replace advice given to you by your health care provider. Make sure you discuss any questions you have with your health care provider. Document Revised: 02/01/2022 Document Reviewed: 02/01/2022 [employer] Patient Education 2022 [employer] 03/14/2023 21:01:38 Cough, Adult, Vgtg-kd-Pwxn Cough, Adult A cough helps to clear [...] Follow these instructions at home: Medicines Take owbp-xsu-qtuqimm and prescription medicines only as told by [...] Many things can cause a cough. Take pzhm-rmw-euwhbbf and prescription medicines only as told by [...] provider. Document Revised: 06/13/2020 Document Reviewed: 05/14/2019 [employer] Patient Education 2022 [employer]. [facility] [place] 08-13-2023 Hospital Discharge instructions Patient Education 12/19/2022 [...] provider. Document Revised: 09/14/2021 Document Reviewed: 09/14/2021 [employer] Patient Education 2022 [employer]. 12/19/2022 14:41:01 Diabetes Mellitus and Nutrition, Adult [...] Carrots. Green beans. Tomatoes. Peppers. Onions. Cucumbers. [place] sprouts. Grains Whole grains, such as whole-wheat [...] meet with a certified diabetes care and primary education professor? Do I need to meet with a dietitian? What number can I call if I have questions? When are the best times to check my blood glucose? Where to find more information: [place] Diabetes Association: diabetes.org Academy of Nutrition and Dietetics: eatright.org National [place] of Diabetes and Digestive and Kidney Diseases: [...] provider. Document Revised: 11/26/2020 Document Reviewed: 11/26/2020 [employer] Patient Education 2022 [employer]. 12/19/2022 14:41:01 Diabetes Mellitus and Exercise Diabetes [...] plan? Your health care provider or certified teacher assistant can help you make a plan for [...] (heat stroke). Where to find more information [place] [employer]: www.diabetes.org Summary Exercising regularly is important for overall health, especially for people who have diabetes mellitus. Exercising has many health benefits. It increases muscle strength and bone density and reduces bodyfat and stress. It also lowers and controls blood glucose. Your health care provider or certified teacher assistant can help you make an activity plan [...] provider. Document Revised: 01/21/2020 Document Reviewed: 01/21/2020 [employer]socializer Patient Education 2022 B[employer] Snacks. 12/19/2022 14:41:00 Blood Glucose Monitoring, Adult Blood [...] or if there is an carlo for Abimate.ee. Most glucose meters store a record of [...] mayhave. Where to find more information The [place] [employer]: www.diabetes.org The Association of Diabetes [...] provider. Document Revised: 01/21/2021 Document Reviewed: 01/21/2021 ElseUpDroid Patient Education 2022 [employer] Inc. Follow Up Care 09/23/2022 10:05:20 With:Irasema Love Address: [address] [place] [address], [facility] [place] [address]- When:Within 6 Month(s) Comments:f/u Brian, YAMINI [facility] 06-15-2023 Hospital Discharge instructions [...] who specializes in diseases of the digestive tract(waterproof bag sewer). How is this treated? There is no [...] Follow these instructions at home: Medicines Take dsre-kkp-jqkoeyf and prescription medicines only as told by [...] provider. Document Revised: 10/29/2021 Document Reviewed: 10/29/2021 [employer]socializer Patient Education 2022 [employer] Inc. 10/21/2022 18:49:28 Food Choices to Help [...] health care provider. Replacing nutrients Eat bland, ztlq-tz-epsnnh foods in small amounts as you are [...] provider. Document Revised: 06/10/2020 Document Reviewed: 06/10/2020 [employer]socializer Patient Education 2022 B[employer] Snacks. 10/21/2022 18:49:28 Diarrhea, Adult, Mlko-oo-Vzfm Diarrhea, Adult Diarrhea is when you pass [...] sugar or caffeine in them. Eat bland, gmlj-vp-urmitx foods in small amounts as you are able. These foods include: ?Bananas. ?Applesauce. ?Rice. ?Low-fat (lean) meats. ?Cayucos. ?Crackers. Avoid alcohol. Avoid spicy or fatty foods. Medicines Take eind-nvi-eiiqhsd and prescription medicines only as told by your doctor. If you were prescribed an antibiotic medicine, take it as told by your doctor. Do not stop using the antibiotic even if you start to feel better. General instructions Wash your hands often using soap and water. If soap and water are not available, use a hand loom changeover operator. Others in your home should wash their [...] sold at pharmacies and stores. Eat bland, ojcm-pk-opypgd foods in small amounts as you are [...] provider. Document Revised: 11/04/2021 Document Reviewed: 11/04/2021 [employer]socializer Patient Education 2022 B[employer] Snacks. Follow Up Care 10/21/2022 15:51:19 With:SAUD BLUM Address: [address] [place] [address] Business (1) When:Within 3 Day(s) [facility]20[facility] Evaluation + Plan noteExtracted from: Title:ED Note [...] Appointment Date:12/21/2022 01:00:00 PM Scheduled Provider:Irasema Love Location:[facility] Appointment Type: Open Appointment Date:09/22/2023 09:30:00 AM Scheduled Provider: Location:[facility] Appointment Type:FM Medicare Wellness Subsequent Future Scheduled Tests Laboratory* TIBC Calculated 12/29/21 * CBC w/ Auto Diff 12/29/21 * Ferritin 12/29/21 * Iron Level 12/29/21 * Reticulocyte Count 12/29/21 [facility]05-08-2023 Miscellaneous Notes* [facility] 8:55 AM EDT Smoking Cessation Navigation Outcome of contact: Left Message Comments: A voicemail has been left for this patient regarding Tobacco Cessation support options. If this patient has any further questions they can email us at [email or web address] or call us at [phone]. eHealth Assistant Press Operator Offset/Smoking Cessation Navigator: Maricruz Garza, [facility] ED documented in this encounterTrinity [facility] System05-05-2023 History of Present illness Narrative* Susan Garcia, PhD - 09/10/2022 2:13 PM EDT Alma Delia Pearl [id number] September 10, 2022 [facility] Bariatric and Metabolic [place] [facility] M61 Psychology Orientation/ Welcome Group CPT: [...] if applicable. Orders placed by patient request: [facility] Nicotine screens Toxicology screens Plan: Patient to be scheduled for an individual psychology consultation visit. Susan Garcia, Ph.D. Psychologist documented in this encounterTrinity Health System04-12-2023 Evaluation note* Encounter Date Diagnosis Assessment Notes [...] and this has been helpful as well. [facility] Other 03-16-2023 Miscellaneous Notes* Telephone Encounter - Kimberly Velazquez MD - 07/22/2022 11:53 AM EDT Increase mounjaro to 5mg/week documented in this encounterTrinity Health System02-16-2023 History of Present illness Narrative* Palmira Abbasi MD - 06/24/2022 10:30 AM EST Images from the original note were not included. ENDOCRINE DIABETES EVALUATION Virtual Follow up Visit Patient Name: Alma Delia Pearl Date: 06/24/2022 LV: March 31, 2022 2:28 PM Reason for follow up: Diabetes PCP is MIAN [place] [place] [address] SUBJECTIVE HPI: Alma Delia Pearl is a [...] dose was 10- or 14-day packs used [id number] and 2019. Nothing significant in the past year. She wonders if she has Cushings which has beenexcluded in the past Self-Monitoring Glucose Type of Monitor: Stratoscale brand - ReliOn Frequency of Monitoring: only [...] meat, more fruits/veggies Has met with a driver education instructor close to home - told she does [...] adult (HCC) Crohn's disease (HCC) 2008 in [place] Depressive disorder, not elsewhere classified cymbalta Endometriosis, [...] DX W/WO SPEC BR/WA SPX 03/[address] [place] [address] Dae Reynolds. endometriosis, lasered. Stage??, PCOS [...] by mouth once daily. Gastric Acid Secretion Research Investigator - Proton Pump Inhibitors (PPIs) ondansetron (ZOFRAN) [...] which included preparing to see the patient, ftxr-us-zguc patient care, completing clinical documentation, obtaining and/or reviewing separately obtained history, performing a medically appropriate examination, and counseling and educating the patient/family/caregiver. Kimberly Velazquez MD PGY-5 Endocrinology and Metabolism [place] Seen with attending, Dr. Abbasi STAFF PHYSICIAN [...] SIGNATURE:Palmira Abbasi MD 06/24/22 documented in this encounterTrinity Health System02-13-2023 Miscellaneous Notes* Telephone Encounter - Emily Haynes [...] mychart. Emily Haynes MA documented in this encounterTrinity Health System01-19-2023 Miscellaneous Notes* Telephone Encounter - Kimberly Velazquez MD - 05/27/2022 12:58 PM EST Mounjaro lower dose prescribed documented in this encounterTrinity Health System01-15-2023 Evaluation + Plan note Extracted from: Title:ED [...] Appointments Appointment Date:09/23/2022 09:30:00 AM Scheduled Provider: Location:[facility] [employer] Appointment Type:FM Medicare Wellness Subsequent Future Scheduled Tests Laboratory* TIBC Calculated 12/29/21 * CBC w/ Auto Diff 12/29/21 * Ferritin 12/29/21 * Iron Level 12/29/21 * Reticulocyte Count 12/29/21 [facility] Hospital Discharge instructions Patient Education 05/23/2022 10:02:03 [...] oral rehydration solution (ORS). This is an prug-srv-mutpshz medicine that helps return your body to [...] drinks, sports drinks, and soda. Eat bland, gole-rd-wjkyvq foods in small amounts as you are able. These foods include bananas, applesauce, rice, lean meats, toast, and crackers. Avoid alcohol. Avoid spicy or fatty foods. Medicines Take zrzp-olb-jxtqgck and prescription medicines only as told by your health care provider. If you were prescribed an antibiotic medicine, take it as told by your health care provider. Do notstop using the antibiotic even if you start to feel better. General instructions Wash your hands often using soap and water. If soap and water are not available, use a hand loom changeover operator. Others in the household should wash their [...] soap and water are not available, usehand loom changeover operator. Contact a health care provider if your diarrhea gets worse or you have new symptoms. Get help right away if you have signs of dehydration. This information is not intended to replace advice given to you by your health care provider. Make sure you discuss any questions you have with your health care provider. Document Released: 04/15/2003 Document Revised: 09/11/2019 Document Reviewed: 09/29/2018 citysocializer Patient Education 2020 Bare Snacks. 05/23/2022 10:02:03 Nausea and Vomiting, Adult Nausea [...] water added (diluted fruit juice). Eat bland, xghv-wu-iouost foods in small amounts as you are able. These foods include bananas, applesauce, rice, lean meats, toast, and crackers. Avoid fluids that contain a lot of sugar or caffeine, such as energy drinks, sports drinks, and soda. Avoid alcohol. Avoid spicy or fatty foods. General instructions Take iwti-ddw-bhyxmbt and prescription medicines only as told by your health care provider. Drink enough fluid to keep your urine pale yellow. Wash your hands often using soap and water. If soap and water are not available, use hand loom changeover operator. Make sure that all people in your [...] eating and drinking to prevent dehydration. Take qowy-wvk-iehmbhi and prescription medicines only as told by [...] 04/25/2006 Document Revised: 08/17/2019 Document Reviewed: 10/03/2018 [employer]socializer Patient Education 2020 B[employer] Snacks. 05/23/2022 10:02:03 Abdominal Pain, Adult Abdominal Pain, [...] Follow these instructions at home: Medicines Take waxi-okr-bdbwvdj and prescription medicines only as told by [...] Watch your condition for any changes. Take hcsl-ucc-uxiggyv and prescription medicines only as told by [...] 02/02/2006 Document Revised: 09/03/2019 Document Reviewed: 09/03/2019 ElseUpDroid Patient Education 2019 B[employer] Snacks. Follow Up Care 05/23/2022 06:50:20 With:NERISSA RIVERA Address: [address] [place] [phone] Business (1) When:05/26/2022 09:55:53 Comments:Make sure to fill the prescriptions that was prescribed last night. Return to the emergency room ifyour pain recurs, vomiting recurs or any new symptoms. [facility] Miscellaneous Notes* Telephone Encounter - Kimberly Velazquez MD - 05/11/2022 4:00 PM EST Increase mounjaro to 5mg/week per patient request documented in this encounterTrinity Health System11-23-2022 Instructions* Patient Instructions* Kimberly Velazquez MD - 03/31/2022 2:16 PM EST [email or web address] Thank you for choosing the [facility] Department of Endocrinology, Diabetes and Metabolism. Did you know that you need to call 48 hours in advance of your scheduled visit, if you are unable to make your appointment? The Endocrinology and Metabolism [place] thanks you for your commitment, because patients not showing to their appointment results in a lost opportunity for patients to receive [facility] health care at the [facility]. To Cancel an appointment, please choose one of the following: - Call the Appointment Call Center at [phone] - From [employer], Go to Appointments - Cancel Appts If cancelling, consider your need to reschedule to prevent further delays in your care. To Schedule an appointment, please choose one of the following: - Call the Appointment Call Center at [phone] - From [employer], Go to Appointments - Request an Appt documented in this encounterTrinity Health System11-23-2022 History of Present illness Narrative* [place] [...] MIAN Kolb PA [address] [place] [address] SUBJECTIVE HPI: Alma Delia Pearl is a [...] dose was 10- or 14-day packs used [id number] and 2019. Nothing significant in the past year. She wonders if she has Cushings which has beenexcluded in the past Self-Monitoring Glucose Type of Monitor: Phagenesiss brand - ReliOn Frequency of Monitoring: only [...] meat, more fruits/veggies Has met with a driver education instructor close to home - told she does [...] has panic attacks. Arthritis Bipolar 1 disorder ([facility]) BMI 40.0-44.9, adult ([facility]) Crohn's disease ([facility]) 2008 in [place] Depressive disorder, not elsewhere classified cymbalta Endometriosis, [...] DX W/WO SPEC BR/WA SPX 03/[address] [place] [address] Dae Reynolds. endometriosis, lasered. Stage??, PCOS [...] by mouth once daily. Gastric Acid Secretion Research Investigator - Proton Pump Inhibitors (PPIs) ondansetron (ZOFRAN) [...] which included preparing to see the patient, lnsp-my-alds patient care, completing clinical documentation, obtaining and/or reviewing separately obtained history, performing a medically appropriate examination, and counseling and educating the patient/family/caregiver. Kimberly Velazquez MD PGY-5 Endocrinology and Metabolism [place] Seen with attending, Dr. Gonsalez. [facility] STAFF PHYSICIAN NOTE OF PERSONAL INVOLVEMENT IN [...] of SERVICE: 9:33 AM documented in this encounterTrinity Health System08-26-2022 Hospital Discharge instructions Patient Education 12/31/2021 22:02:41 Shortness of Breath, Adult, Napm-bi-Dwuk Shortness of Breath, Adult Shortness of breath [...] Slowly return to your normal activities. Take pzfw-chc-xznnbks and prescription medicines only as told by [...] 10/11/2008 Document Revised: 09/25/2018 Document Reviewed: 09/25/2018 [employer]socializer Patient Education 2020 [employer] Inc. 12/31/2021 22:02:36 Dizziness, Ymay-fl-Ewcg Dizziness Dizziness is a common problem. It [...] balance is fine. 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 Take tsdd-bmf-larmpwr and prescription medicines only as told by [...] 2012 Document Revised: 04/28/2018 Document Reviewed: 05/12/2017 [employer]socializer Patient Education 2020 Bare Snacks. Follow Up Care 12/31/2021 19:48:50 With:Nerissa Hurley Address: [address] [place] [phone] When:01/03/2022 [facility]08-[facility] Evaluation + Plan noteExtracted from: Title:ED Note Author:Mary Kay oGmez PA-C Date :12/31/21 1. Dizziness (R42: Dizziness and giddiness) Ordered: meclizine, 25 mg = 1 tab(s), Oral, TID, X 5 day(s), # 15 tab(s), Refills(s) 0, Pharmacy: [facility] #[id number], 175, cm, 12/31/21 19:57:00 EDT, Height/Length Dosing, 139.2, kg, 12/31/21 19:57:00 EDT, Weight Dosing 2. Dyspnea (R06.00: Dyspnea, unspecified) Ordered: meclizine, 25 mg = 1 tab(s), Oral, TID, X 5 day(s), # 15 tab(s), Refills(s) 0, Pharmacy: [facility] #[id number], 175, cm, 12/31/21 19:57:00 EDT, Height/Length Dosing, [...] Appointments Appointment Date:09/23/2022 09:30:00 AM Scheduled Provider: Location:[facility] Appointment Type: Medicare Wellness Subsequent Future Scheduled Tests Laboratory* TIBC Calculated 12/29/21 * SARS-CoV-2, MANUEL 03/25/21 * Rapid COVID Antigen ([facility]) 05/17/21 * CBC w/ Auto Diff 12/29/21 * Ferritin 12/29/21 * Iron Level 12/29/21 * Reticulocyte Count 12/29/21 [facility] Hospital Discharge instructions Patient Education 12/25/2021 01:03:04 [...] if you start to feel better. Take xrwl-lwy-jouosoy and prescription medicines only as told by [...] 06/02/2005 Document Revised: 10/26/2018 Document Reviewed: 10/26/2018 [employer]socializer Patient Education 2020 B[employer] Snacks. Follow Up Care 12/24/2021 21:33:17 With:Nerissa Rivera Address: [address] [place] [phone] When:12/28/2021 Comments:Take the antibiotics as prescribed you have completed the course, you can use the Zofran, Bentyl asneeded for pain and nausea. Please follow-up with your primary care doctor in the next 2 to 3 days for further evaluation management. Please return the ED for any new or worsening symptoms. [facility]08-18-2022 Evaluation + Plan noteExtracted from: Title:ED Note [...] Appointment Date:12/29/2021 09:20:00 AM Scheduled Provider:Nerissa Hurley Location:[facility] Appointment Type: ER/Hospital Follow Up Appointment Date:09/23/2022 09:30:00 AM Scheduled Provider: Location:[facility] [place] [facility] Appointment Type: Medicare Wellness Subsequent Future Scheduled Tests Laboratory* SARS-CoV-2, MANUEL 03/25/21 * Rapid COVID Antigen ([facility]) 05/17/21 [facility]-06-[facility] NoteChief Complaint An interactive audio and video [...] 2 diabetes mellitus without complication, unspecified whether reproduction machine loader insulin use (250.00) (E11.9) Provider Impressions Surgeon: [...] week. 7. Begin elena (more content not included)...[id number] Discharge instructions Patient Education 11/03/2021 13:43:51 [...] 01/04/2005 Document Revised: 04/07/2018 Document Reviewed: 03/08/2018 [employer]socializer Patient Education 2020 [employer] Inc. 11/03/2021 13:24:30 Mesenteric Adenitis, Adult Mesenteric [...] fever. Follow these instructions at home: Take dnhe-vgo-ivegxac and prescription medicines only as told by [...] 08/08/2017 Document Revised: 01/12/2019 Document Reviewed: 08/08/2017 [employer]socializer Patient Education 2019 Bare Snacks. Follow Up Care 11/02/2021 12:12:21 With:RTC for next regularly scheduled chronic disease management visit - sooner for problems Address: When: Unknown [facility] 06-27-2022 Hospital Discharge instructions [...] fever. Follow these instructions at home: Take mhqh-pmi-jttfkfb and prescription medicines only as told by [...] 08/08/2017 Document Revised: 01/12/2019 Document Reviewed: 08/08/2017 [employer]izer Patient Education [employer]. Follow Up Care 11/01/2021 19:06:33 With:Lacey LAZO Address: [address] [place], [place] [id number] Business (1) When:11/04/2021 21:37:32 Comments:Take the medications as prescribed as needed for pain and nausea. Please follow-up with your primary care doctor in the next 2 to 3 days. Please return to ED for any new or worsening symptoms. [facility] Evaluation + Plan noteExtracted from: Title:ED Note [...] Appointments Appointment Date:11/11/2021 01:00:00 PM Scheduled Provider: [facility] Appoint[facility] Type:DM Diabetes Group ([place]) Appointment Date:11/24/2021 09:20:00 AM Scheduled Provider:Nerissa Hurley Location:[facility] Appointment Type: Open Appointment Date:12/01/2021 09:00:00 AM Scheduled Provider: [facility] Appointment Type:DM Diabetes Group ([place]) Appointment Date:09/23/2022 09:30:00 AM Scheduled Provider: Location:[facility] Appointment Type:FM Medicare Wellness Subsequent Future Scheduled Tests Laboratory* SARS-CoV-2, MANUEL 11/17/21 * Rapid COVID Antigen ([facility]) 05/17/21 [facility] Hospital Discharge instructions Follow Up Care 08/25/2021 10:01:14 With:Nerissa Hurley Address: [address] [place], [place] [phone]- When:Within 1 Month(s) [facility] [place] 04-12-2022 Evaluation + Plan note Diagnostic Tests Pending * Hepatitis B Surface Antigen 08/18/21 * RPR with Conf Rfx 08/18/21 * Urine Culture 08/18/21 * Rubella Antibody IgG 08/18/21 * HIV Screen 4th Generation wRfx 08/18/21 Future Scheduled Tests Laboratory* SARS-CoV-2, MANUEL 03/25/21 * Rapid COVID Antigen ([facility]) 05/17/21 [facility] Evaluation + Plan note Future Scheduled Tests Laboratory* SARS-CoV-2, MANUEL 03/25/21 * Rapid COVID Antigen ([facility]) 05/17/21 [facility] History of Past illness Narrative* Problem Noted Date Resolved Date Neuritis 01/26/2010 11/06/2015 Abdominal pain, unspecified site 12/17/2008 01/31/2009 Spasm of muscle 09/27/2008 01/31/2009 Abnormal coagulation profile 07/31/2008 Endometriosis, site unspecified 01/31/2009 Abdominal pain, generalized 01/08 Morbid obesity 07/09/2008 Irritable bowel syndrome 009 Overview: On Bentyl and Phenergan documented as of this encounter (statuses as of 08/18/2021) [facility] Narrative* Problem Noted Date Resolved Date Neuritis 01/26/2010 11/06/2015 Abdominal pain, unspecified site 12/17/2008 01/31/2009 Spasm of muscle 09/27/2008 01/31/2009 Abnormal coagulation profile 07/31/2008 Endometriosis, site unspecified 01/31/2009 Abdominal pain, generalized 01/08 Morbid obesity 07/09/2008 Irritable bowel syndrome 009 Overview: On Bentyl and Phenergan documented as of this encounter (statuses as of 04/01/2022) [facility] of [facility] Narrative* Problem Noted Date Resolved Date Neuritis 01/26/2010 11/06/2015 Abdominal pain, unspecified site 12/17/2008 01/31/2009 Spasm of muscle 09/27/2008 01/31/2009 Abnormal coagulation profile 07/31/2008 Endometriosis, site unspecified 01/31/2009 Abdominal pain, generalized 01/08 Morbid obesity 07/09/2008 Irritable bowel syndrome 009 Overview: On Bentyl and Phenergan documented as of this encounter (statuses as of 05/13/2022) [facility] of [facility] Narrative* Problem Noted Date Resolved Date Neuritis 01/26/2010 11/06/2015 Abdominal pain, unspecified site 12/17/2008 01/31/2009 Spasm of muscle 09/27/2008 01/31/2009 Abnormal coagulation profile 07/31/2008 Endometriosis, site unspecified 01/31/2009 Abdominal pain, generalized 01/08 Morbid obesity 07/09/2008 Irritable bowel syndrome 009 Overview: On Bentyl and Phenergan documented as of this encounter (statuses as of 05/27/2022) [facility] Narrative* Problem Noted Date Resolved Date Neuritis 01/26/2010 11/06/2015 Abdominal pain, unspecified site 12/17/2008 01/31/2009 Spasm of muscle 09/27/2008 01/31/2009 Abnormal coagulation profile 07/31/2008 Endometriosis, site unspecified 01/31/2009 Abdominal pain, generalized 01/08 Morbid obesity 07/09/2008 Irritable bowel syndrome 009 Overview: On Bentyl and Phenergan documented as of this encounter (statuses as of 06/21/2022) [facility] Narrative* Problem Noted Date Resolved Date Neuritis 01/26/2010 11/06/2015 Abdominal pain, unspecified site 12/17/2008 01/31/2009 Spasm of muscle 09/27/2008 01/31/2009 Abnormal coagulation profile 07/31/2008 Endometriosis, site unspecified 01/31/2009 Abdominal pain, generalized 01/08 Morbid obesity 07/09/2008 Irritable bowel syndrome 009 Overview: On Bentyl and Phenergan documented as of this encounter (statuses as of 06/25/2022) [facility] Narrative* Problem Noted Date Resolved Date Neuritis 01/26/2010 11/06/2015 Abdominal pain, unspecified site 12/17/2008 01/31/2009 Spasm of muscle 09/27/2008 01/31/2009 Abnormal coagulation profile 07/31/2008 Endometriosis, site unspecified 01/31/2009 Abdominal pain, generalized 01/08 Morbid obesity 07/09/2008 Irritable bowel syndrome 009 Overview: On Bentyl and Phenergan documented as of this encounter (statuses as of 07/22/2022) [facility] Narrative* Problem Noted Date Resolved Date Neuritis 01/26/2010 11/06/2015 Abdominal pain, unspecified site 12/17/2008 01/31/2009 Spasm of muscle 09/27/2008 01/31/2009 Abnormal coagulation profile 07/31/2008 Endometriosis, site unspecified 01/31/2009 Abdominal pain, generalized 01/08 Morbid obesity 07/09/2008 Irritable bowel syndrome 009 Overview: On Bentyl and Phenergan documented as of this encounter (statuses as of 09/10/2022) [facility] of [facility] Narrative* Problem Noted Date Resolved Date Neuritis 01/26/2010 11/06/2015 Abdominal pain, unspecified site 12/17/2008 01/31/2009 Spasm of muscle 09/27/2008 01/31/2009 Abnormal coagulation profile 07/31/2008 Endometriosis, site unspecified 01/31/2009 Abdominal pain, generalized 01/08 Morbid obesity 07/09/2008 Irritable bowel syndrome 009 Overview: On Bentyl and Ricaan documented as of this encounter (statuses as of 09/13/2022) [facility] Future Appointments Appointment Date:08/31/2021 01:00:00 PM Scheduled Provider:Steve KINCAID, ABIGAIL, TONI, Kourtney Fleming Location:[facility] Appointment Type:DM Diabetes Initial Assessment [address] RD (F Appointment Date:09/22/2021 09:20:00 AM Scheduled Provider:Nerissa Hurley Location:[facility] Appointment Type:FM Open Future Scheduled Tests Laboratory* SARS-CoV-2, MANUEL 03/25/21 * Rapid COVID Antigen ([facility]) 05/17/21 [facility] [place] Evaluation + Plan note Future Appointments Appointment Date:08/31/2021 01:00:00 PM Scheduled Provider:Steve KINCAID RDN, TONI, Kourtney Fleming [facility] Type:DM Diabetes Initial Assessment [address] RD (F Appointment Date:09/22/2021 09:20:00 AM Scheduled Provider:Nerissa Hurley Location:[facility] Appointment Type: Open Diagnostic Tests Pending * Microalbumin Level Urine 08/25/21 Future Scheduled Tests Laboratory* SARS-CoV-2, MANUEL 03/25/21 * Rapid COVID Antigen ([facility]) [facility]21 [facility] App[facility]ments Appointment Date:10/27/2021 09:00:00 AM Scheduled Provider: Location:.DIETARY Appointment Type:DM Diabetes Group ([facility]) Appointment Date:11/11/2021 01:00:00 PM Scheduled Provider: [facility] Type:DM Diabetes Group ([place]) Appointment Date:11/24/2021 09:20:00 AM Scheduled Provider:Nerissa Hurley Location:[facility] Appointment Type:FM Open Appointment Date:01/06/2022 01:00:00 PM Scheduled Provider: Location:.DI[facility]ARY Appointment Type:DM Diabetes Group ([place]) Appointment Date:09/23/2022 09:30:00 AM Scheduled Provider: [facility] Type:FM Medicare Wellness Subsequent Future Scheduled Tests Laboratory* SARS-CoV-2, MANUEL 03/25/21 * Rapid COVID Antigen ([facility]) 05[facility]17/21 [facility] Future Appointments Appointment Date:11/11/2021 01:00:00 PM Scheduled Provider: Location:.DIETARY Appointment Type:DM Diabetes Group () Appointment Date:11/24/2021 09:20:00 AM Scheduled Provider:Nerissa Hurley Location:[facility] [place] Appointment Type: Open Appointment Date:12/01/2021 09:00:00 AM Scheduled Provider: [facility] Type:DM Diabetes Group () Appointment Date:09/23/2022 09:30:00 AM Scheduled Provider: [facility] Type:FM Medicare Wellness Subsequent Future Scheduled Tests Laboratory* SARS-CoV-2, MANUEL 03/25/21 * Rapid COVID Antigen ([facility]) 05/17/21 [facility] Primary [facility] Evaluation + Plan note Future Appointments Appointment Date:12/01/2021 09:00:00 AM Scheduled Provider: [facility] Type:DM Diabetes Group () Appointment Date:09/23/2022 09:30:00 AM Scheduled Provider: [facility] Appointment Type:FM Medicare Wellness Subsequent Future Scheduled Tests Laboratory* SARS-CoV-2, MANUEL 03/25/21 * Rapid COVID Antigen ([facility]) 05/17/21 [facility] Future Appointments Appointment Date:09/23/2022 09:30:00 AM Scheduled Provider: [facility] Type:FM Medicare Wellness Subsequent Future Scheduled Tests Laboratory* TIBC Calculated 12/29/21 * SARS-CoV-2, MANUEL 03/25/21 * Rapid COVID Antigen ([facility]) 05/17/21 * CBC w/ Auto Diff 12/29/21 * Ferritin 12/29/21 * Iron Level 12/29/21 * Reticulocyte Count 12/29/21 [facility] Future Appointments Appointment Date:12/21/2022 01:00:00 PM Scheduled Provider:Irasema Love Location:[facility] Appointment Type: Open Appointment Date:09/22/2023 09:30:00 AM Scheduled Provider: Location:[facility] Appointment Type:FM Medicare Wellness Subsequent Diagnostic Tests Pending * Enteric Panel by PCR 10/22/22 * Clostridium difficile by PCR 10/22/22 Future Scheduled Tests Laboratory* TIBC Calculated 12/29/21 * CBC w/ Auto Diff 12/29/21 * Ferritin 12/29/21 * Iron Level 12/29/21 * Reticulocyte Count 12/29/21 [facility] Future Appointments Appointment Date:06/24/2023 10:20:00 AM Scheduled Provider:Irasema Love Location:[facility] Appointment Type: Open Appointment Date:09/22/2023 09:30:00 AM Scheduled Provider: Location:[facility] Appointment Type:FM Medicare Wellness Subsequent Future Scheduled Tests Laboratory* HgbA1c 12/21/22 * Microalbumin Level Urine 12/21/22 * TIBC Calculated 12/29/21 * TSH With T4fr Reflex 12/21/22 * CBC w/ Auto Diff 12/29/21 * Ferritin 12/29/21 * Iron Level 12/29/21 * Lipid Panel 12/21/22 * Reticulocyte Count 12/29/21 [facility] Evaluation + Plan note Future Appointments Appointment Date:06/24/2023 10:20:00 AM Scheduled Provider:Irasema Love Location:[facility] Appointment Type: Open Appointment Date:09/22/2023 09:30:00 AM Scheduled Provider: Location:[facility] Appointment Type:FM Medicare Wellness Subsequent Future Scheduled Tests Laboratory* HgbA1c 12/21/22 * Microalbumin Level Urine 12/21/22 * TSH With T4fr Reflex 12/21/22 * Lipid Panel 12/21/22 [facility] [place] Evaluation + Plan note Future Appointments Appointment Date:06/14/2023 04:20:00 PM Scheduled Provider:Irasema Love Location:[facility] Appointment Type: Open Appointment Date:09/22/2023 09:30:00 AM Scheduled Provider: Location:[facility] Appointment Type:FM Medicare Wellness Subsequent Future [...] w/CAD if perf and 3D Johnathon 05/20/23 [facility] Evaluation + Plan note Future Appointments Appointment Date:06/14/2023 04:20:00 PM Scheduled Provider:Irasema Love Location:[facility] Appointment Type: Open Appointment Date:09/22/2023 09:30:00 AM Scheduled Provider: Location:[facility] Appointment Type:FM Medicare Wellness Subsequent Future Scheduled Tests Laboratory* HgbA1c 12/21/22 * FSH and LH 05/20/23 * Insulin Free and Total 05/20/23 * TSH With T4fr Reflex 05/20/23 * TSH With T4fr Reflex 12/21/22 * Beta hCG Quantitative 05/20/23 * Cortisol 05/20/23 * Lipid Panel 12/21/22 * Prolactin Level 05/20/23 [facility] Future Appointments Appointment Date:09/22/2023 09:30:00 AM Scheduled Provider: Location:[facility] Appointment Type:FM Medicare Wellness Subsequent Future Scheduled Tests Laboratory* HgbA1c 12/21/22 * FSH and LH 05/20/23 * Insulin Free and Total 05/20/23 * TSH With T4fr Reflex 05/20/23 * TSH With T4fr Reflex 12/21/22 * Beta hCG Quantitative 05/20/23 * Cortisol 05/20/23 * Lipid Panel 12/21/22 * Prolactin Level 05/20/23 [facility] [place] Evaluation + Plan note Future Appointments Appointment Date:09/25/2024 08:00:00 AM Scheduled Provider: Location:[facility] Appointment Type: Medicare Wellness Subsequent Future Scheduled Tests Laboratory* HgbA1c 12/21/22 * FSH and LH 05/20/23 * Insulin Free and Total 05/20/23 * TSH With T4fr Reflex 05/20/23 * TSH With T4fr Reflex 12/21/22 * Beta hCG Quantitative 05/20/23 * Cortisol 05/20/23 * Lipid Panel 12/21/22 * Prolactin Level 05/20/23 [facility] Evaluation + Plan noteExtracted from: Title:ED Note Author:Archie GUERRERO, Luis Roa te:11/29/23 Breast abscess (N61.1: Absce ss of the breast and nipple) Orders: acetaminophen-hydrocodone, 1 EA, Tab, Oral, Once, Stop date 11/28/23 20:34:00 EDT, STAT, Start date 11/28/23 20:34:00 EDT acetaminophen-hydrocodone, 1 tab(s), Oral, q6hr for pain for 2 day(s), 8 tab(s), Refill(s) 0, [facility] #[id number], 175, cm, 11/28/23 19:12:00 EDT, Height/Length Dosing, 139, kg, 11/28/23 19:12:00 EDT, Weight Dosing clindamycin, 300 mg = 1 cap(s), Oral, q6hr, X 7 day(s), # 28 cap(s), Refills(s) 0, Pharmacy: [facility] #[id number], 175, cm, 11/28/23 19:12:00 EDT, Height/Length Dosing, 139, kg, 11/28/23 19:12:00 EDT, Weight Dosing clindamycin, 300 mg = 2 cap(s), Cap, Oral, Once, Stop date 11/28/23 20:34:00 EDT, STAT, Start date 11/28/23 20:34:00 EDT, 11/28/23 20:34:00 EDT Future Appointments Appointment Date:01/13/2024 10:00:00 AM Scheduled Provider:KYUNG PAUL PA-C Location:[facility] Appointment Type:URO New Patient Appointment Date:09/25/2024 08:00:00 AM Scheduled Provider: Location:[facility] Appointment Type:FM Medicare Wellness Subsequent Future Scheduled Tests Laboratory* HgbA1c 12/21/22 * FSH and LH 05/20/23 * Insulin Free and Total 05/20/23 * TSH With T4fr Reflex 05/20/23 * TSH With T4fr Reflex 12/21/22 * Beta hCG Quantitative 05/20/23 * Cortisol 05/20/23 * Lipid Panel 12/21/22 * Prolactin Level 05/20/23 [facility]* Diagnosis Severe persistent asthma without complication Dyspnea, unspecified type Obesity, unspecified classification, unspecified obesity type, unspecified whether serious comorbidity present Allergic rhinitis due to pollen, unspecified seasonality Sleep apnea, unspecified type [facility]* Diagnosis Abnormal glucose- Primary Other abnormal glucose Class 3 severe obesity due to excess calories with serious comorbidity and body mass index (BMI) of 40.0 to 44.9 in adult (HCC) PCOS (polycystic ovarian syndrome) Polycystic ovaries [facility]* Diagnosis Class 3 severe obesity due to excess calories without serious comorbidity with body mass index (BMI) of 40.0 to 44.9 in adult (HCC)- Primary PCOS (polycystic ovarian syndrome) Polycystic ovaries Type 2 diabetes mellitus without complication, without long-term current use of insulin (HCC) documented [facility]* Diagnosis Psychological factors affecting morbid obesity (HCC)- Primary Psychic factors associated with diseases classified elsewhere Tobacco use disorder documented in this encounter [facility] noteNo InformationNort [employer] Other Evaluation noteNofreeman [facility] [employer] Other Evaluation note* Diagnosis Type 2 diabetes mellitus without complication, without long-term current use of insulin (HCC) Class 3 severe obesity with serious comorbidity and body mass index (BMI) of 40.0 to 44.9 in adult, unspecified obesity type (HCC) [facility] Diagnosis Type 2 diabetes mellitus without complication, without long-term current use of insulin (HCC) Class 3 severe obesity with serious comorbidity and body mass index (BMI) of 40.0 to 44.9 in adult, unspecified obesity type (HCC) documented in this encounter [facility] general Narrative - Reported* Type Description [...] (2017) Hospitalization History blood loss, rectal 04-16 WUT Other History general Narrative - ReportedNort Personal Life Media Other History of Present illness Narrative* Initial [...] patient receives most of her care in [place]. Her PCP is a nurse practitioner, Violet. [...] nausea and stomach cramps to the Ozempic. [facility] Work Phone: History of Present [...] patient receives most of her care in [place]. Her PCP is a nurse practitioner, Violet. [...] nausea and stomach cramps to the Ozempic. [address] Work Phone: History of Present illness [...] patient receives most of her care in [place]. Her PCP is a nurse practitioner, Violet. [...] nausea and stomach cramps to the Ozempic. [facility] Work Phone: History of Present illness Narrative* [...] patient receives most of her care in [place]. Her PCP is a nurse practitioner, Violet. [...] nausea and stomach cramps to the Ozempic. [facility] Work Phone: Hospital course Narrative No data available for this section [facility] instructions No data available for this section [facility] No data available for this section [facility] Purpose Family History No Family History [...] FoundDocuments on File Type Date Recorded Patient Academic Advisor Expl anation Advance Directive(s) Chief Complaint * [...] MDM 60-74 MINUTES Jackson Cox MD [address] [place] [address] Referral ID Status Reason Start Date Expiration Date Visits Requested Visits Authorized [id number] Pending Review PCP Requested Referral 2 03/31/2023 1 1 Additional Source Comments INFORMATION SOURCE (unrecogn ized section and content) DATE CREATED AUTHOR 10/31/2017 [facility] DATE CREATED AUTHOR AUTHOR'S ORGANIZ ATION 05/15/2021 [facility] DATE CREATED AUTHOR AUTHOR'S ORGANIZ ATION 11/11/2021 [facility] DATE CREATED AUTHOR AUTHOR'S ORGANIZ ATION 06/12/2022 [facility] DATE CREATED AUTHOR AUTHOR'S ORGANIZ ATION 11/05/2023 [facility] DATE CREATED AUTHOR AUTHOR'S ORGANIZ ATION 11/27/2023 [facility] d[facility] Specialists EPIC DATE CREATED AUTHOR AUTHOR'S ORGANIZ ATION 12/01/2023 [facility] Source Comments (unrecognize d section and content) In the event this informatio n is protected by the Federal Confidentiality of Alcohol and Drug Abuse Patient Records regulations: The Federal rules restrict any use of the information to criminally investigate or prosecute any alcohol or drug abuse patient.[facility] the event this information is protected by the Federal Confidentiality of Alcohol and Drug Abuse Patient Records regulations: The Federal rules restrict any use of the information to criminally investigate or prosecute any alcohol or drug abuse patient.[facility] System[facility] the event this information is protected by the Federal Confidentiality of Alcohol and Drug Abuse Patient Records regulations: The Federal rules restrict any use of the information to criminally investigate or prosecute any alcohol or drug abuse patient.[facility] System[facility] the event this information is protected by the Federal Confidentiality of Alcohol and Drug Abuse Patient Records regulations: The Federal rules restrict any use of the information to criminally investigate or prosecute any alcohol or drug abuse patient.[facility] System[facility] the event this information is protected by the Federal Confidentiality of Alcohol and Drug Abuse Patient Records regulations: The Federal rules restrict any use of the information to criminally investigate or prosecute any alcohol or drug abuse patient.[facility] System[facility] the event this information is protected by the Federal Confidentiality of Alcohol and Drug Abuse Patient Records regulations: The Federal rules restrict any use of the information to criminally investigate or prosecute any alcohol or drug abuse patient.[facility] System[facility] the event this information is protected by the Federal Confidentiality of Alcohol and Drug Abuse Patient Records regulations: The Federal rules restrict any use of the information to criminally investigate or prosecute any alcohol or drug abuse patient.[facility] System[facility] the event this information is protected by the Federal Confidentiality of Alcohol and Drug Abuse Patient Records regulations: The Federal rules restrict any use of the information to criminally investigate or prosecute any alcohol or drug abuse patient.[facility] System[facility] the event this information is protected by the Federal Confidentiality of Alcohol and Drug Abuse Patient Records regulations: The Federal rules restrict any use of the information to criminally investigate or prosecute any alcohol or drug abuse patient.[facility] System[facility] the event this information is protected by the Federal Confidentiality of Alcohol and Drug Abuse Patient Records regulations: The Federal rules restrict any use of the information to criminally investigate or prosecute any alcohol or drug abuse patient.[facility] System[facility] the event this information is protected by the Federal Confidentiality of Alcohol and Drug Abuse Patient Records regulations: The Federal rules restrict any use of the information to criminally investigate or prosecute any alcohol or drug abuse patient.[facility] Reason for Visit (unrecogniz ed section and content) Reason Comments Refill Request Reason Comments Consult Reason Comments Prep for virtual visit Reason Comments Obesity Medical Weight Management Non-insulin Dependent Diabetes Mellitus Reason Comments Obesity Reason Comments Smoking Cessation Care Teams (unrecognized sec tion and content) System Manager Relationship Specialty Start Date End Date Keila Lynch PCP - General Family Practice 04/12/16 David Eubanks Referring Neurology 02/11/20 System Manager Relationship Specialty Start Date End Date Keila Lynch PCP - General Family Medicine 04/12/16 David Eubanks Referring Neurology 02/11/20 System Manager Relationship Specialty Start Date End Date Keila Lynch PCP - General Family Medicine 04/12/16 David Eubanks Referring Neurology 02/11/20 System Manager Relationship Specialty Start Date End Date Keila Lynch PCP - General Family Medicine 04/12/16 David Eubanks Referring Neurology 02/11/20 System Manager Relationship Specialty Start Date End Date Keila Lynch PCP - General Family Medicine 04/12/16 David Eubanks Referring Neurology 02/11/20 System Manager Relationship Specialty Start Date End Date Keila Lynch PCP - General Family Medicine 04/12/16 David Eubanks Referring Neurology 02/11/20 System Manager Relationship Specialty Start Date End Date Keila Lynch PCP - General Family Medicine 04/12/16 David Eubanks Referring Neurology 02/11/20 System Manager Relationship Specialty Start Date End Date Keila Lynch PA-C PCP - General Family Medicine 04/12/16 David Eubanks DO Referring Neurology 02/11/20 System Manager Relationship Specialty Start Date End Date Keila [...] BE BASED ON THE PRIMARY CLINICAL RECORDS. [employer] [facility]. provides no warranty or guarantee of the accuracy or completeness of information in this document.
== END 2023-12-01 17:59 | disposition home or self-care (01) ==
LOC: LAB 17:58
PROVIDERS: Visit Provider Physician Assistant
DX: L02.213 Cutaneous abscess of chest wall (principal)
CPT/HCPCS: 87070

== ENCOUNTER 2024-01-23 20:54 | Outpatient (REF) | payer MEDICARE, MEDICAID, SELFPAY ==
--- OUTSIDE RECORDS SUMMARY | 2024-01-23 20:59 | XMS_ITS | CCD ---
Author Organization [facility] Inform ion Partnership [facility] Care Team Providers Care Lifter Driver Name Role Phone JAMES BLACKMON Unavailable Unavailable [...] Eubanks Unavailable NERISSA RIVERA Primary Care Physician [phone] Kem Patel Attending Unavailable Kem Patel Admitting [...] Eubanks DO Unavailable JOHN PIERCE Attending Unavailable KEILA LYNCH Primary Care Unavailabl e SYED, KEILA MANNING Primary Care Unavailabl e EDMUNDO DEVLIN Referring Unavailable EDMUNDO DEVLIN Attending Unavailable KEILA LYNCH Primary Care Unavailabl e MouranyDaron ELourdes Admitting Unavailable MojoseyDaron ELourdes Referring Unavailable MojoseyDaron Attending Unavailable Mojosey, Daron ELourdes Referring Unavailable Mourany, Daron Johnson Attending Unavailable MojoseyDaron Admitting Unavailable HERI FITZGERALD Attending Unavailable SHEREE, BAN Marrero Attending Unavailable BAN BENTLYE Referring Unavailable KEYLA GUSMAN Attending Unavailable RILEYMICHAELA LUNDBERG Attending Unavailable EMANUEL, SAMANTA Attending Unavailable EMANUEL, SAMANTA Attending Unavailable EMANUEL, SAMANTA Attending Unavailable EMANUEL, SAMANTA Attending Unavailable EMANUEL, SAMANTA Attending Unavailable KEYLA GUSMAN Attending Unavailable Aicha Dean Admitting Unavailable Aicha Dean Attending Unavailable Aicha Dean Referring Unavailable Aicha Dean Attending Unavailable Irasema Zacarias Attending Unavailab James Rome Attending Unavailable Irasema Zacarias Admitting Unavailab Irasema Masters Attending Unavailab James Rome Attending Unavailable YOLANDA PAUL Attending Unavailab SAMANTA Oglesby Referring Unavailable WILLIE GALINDO Attending Unavailabl e Irasema Zacarias Attending Unavailab ANNABEL Schultz Attending Unavailable MissIrasema roach Attending Unavailab le MissIrasema roach Attending Unavailab le Daron Hernandez Attending Unavailable Daron Hernandez Attending Unavailable Daron Hernandez Attending Unavailable Celena Dias Attending Unavailable Daron George Attending Unavailable James Faulkner Attending Unavailable Daron Hernandez Admitting Unavailable Daron Hernandez Attending Unavailable Daron Hernandez Referring Unavailable Allergies Allergy Classification Reported Allergen(s) Allergy Type Date of Onset Reaction(s) Facility Eggs (1 source) Egg Food Allergy Vomiting (disorder) [facility] Latex (1 source) Latex Substance Allergy Eruption of skin (disorder) [facility] lurasidone (1 source) lurasidone; Translations: [lurasidone] Drug Allergy Intolerance, function (observable entity) [facility] Opioid Agonists (2 sources) Codeine; Translations: [codeine] Drug Allergy Childhood, function (observable entity) [facility] Penicillins (antibiotic) (1 source) Penicillin; Translations: [penicillin] Drug Allergy Childhood, function (observable entity) [facility] Phenazopyridine (1 source) Phenazopyridine; Translations: [phenazopyridine] Drug Allergy Pain [facility] Serotonin-1b and Serotonin-1d Receptor Agonists (1 source) SUMAtriptan; Translations: [sumatriptan] Drug Allergy Respiratory function (observable entity), Tight chest (finding) [facility] (4 sources) codeine; Translations: [CODEINE] Drug Allergy 08-17-19 06 [facility] Repository (2 sources) egg extract; Translations: [EGG] Drug Allergy 07-11-19 [facility] Repository (20 sources) Latex; Translations: [LATEX] Drug allergy (disorder) 08-17-19 06 Eruption of skin (disorder) [facility] Repository (4 sources) morphine; Translations: [MORPHINE] Drug Allergy 05-23-19 09 [facility] Repository (2 sources) Penicillins; Translations: [PENICILLINS] Drug allergy (disorder) 11-16-19 07 [facility] Repository (3 sources) phenazopyridine; Translations: [Pyridium] Drug Allergy AOF [facility] Repository (20 sources) Codeine; Translations: [codeine] Drug Allergy 08-17-19 06 Childhood, function (observable entity) [facility] (20 sources) Egg; Translations: [Eggs] Food allergy Vomiting (disorder) [facility] (20 sources) lurasidone; Translations: [lurasidone] Drug Allergy 03-31-20 22 Intolerance, function (observable entity), Other: See Comments, Intolerance [facility] (20 sources) Morphine; Translations: [morphine] Drug Allergy 05-23-19 09 rash, SOB, Unknown [facility] (20 sources) Penicillin; Translations: [penicillin] Drug Allergy Childhood, function (observable entity) [facility] (20 sources) Phenazopyridine; Translations: [phenazopyridine] Drug Allergy Pain, Unknown [facility] (20 sources) SUMAtriptan; Translations: [sumatriptan] Drug Allergy Respiratory function (observable entity), Tight chest (finding) [facility] (20 sources) Dairy 1 Drug intolerance unknown [facility] Comment on above: splenda molasses dairy high fructose corn syrup eggs Reactions of the above unkown. splenda molasses dairy high fructose corn syrup eggs Reactions of the above unkown. (11 sources) egg extract Drug Allergy 07-11-19 20 Rash [facility] Work Phone: (11 sources) Latex Propensity to adverse reactions 08-17-19 06 Rash, Swelling [facility] (1 source) Penicillins Propensity to adverse reactions 11-16-19 07 [facility] (12 sources) Phenazopyridine; Translations: [PHENAZOPYRIDINE HCL] Drug Allergy 10-31-19 08 [facility] (12 sources) SUMAtriptan; Translations: [SUMATRIPTAN SUCCINATE] Drug Allergy 05-16-19 10 [facility] (13 sources) Erythromycin; Translations: [ERYTHROMYCIN] Drug Allergy 03-31-20 Other: See Comments [facility] (10 sources) Penicillins Propensity to adverse reactions 11-16-19 07 [facility] (11 sources) semaglutide; Translations: [SEMAGLUTIDE] Drug Allergy 03-31-20 GI Upset [facility] (1 source) Codeine Drug Allergy 07-08-19 [facility] Repository (1 source) Morphine Drug Allergy 07-08-19 [facility] Repository (1 source) Penicillins Drug allergy (disorder) 07-08-19 [facility] Repository (1 source) Phenazopyridine Drug Allergy 07-08-19 [facility] Repository (1 source) SUMAtriptan Drug Allergy 07-08-19 [facility] Repository (3 sources) codiene Propensity to adverse reactions Unknown [facility] Other (2 sources) Ciprofloxacin; Translations: [ciprofloxacin] Drug Allergy [facility] Repository (2 sources) Ciprofloxacin; Translations: [Cipro] Drug Allergy [facility] Repository (2 sources) Dairy; Translations: [Dairy] Propensity to adverse reactions (disorder) [facility] Repository Medications Current Medications Medication Drug Class(es) Dates Sig (Normalized) Sig (Original) 0.5 ML semaglutide 0.5 MG/ML Auto-Injector (3 sources) Start: 07-23-2021 End: 09-17-2021 inject 0.25 mg by subcutaneous injection every week Wegovy (0.25 mg dose) subcutaneous solution 0.25 mg, SubCutaneous, qWeek, X 4 week(s), # 4 EA, Refills(s) 1, Pharmacy: [facility] #[id number], 175, cm, 07/23/21 10:50:00 EDT, Height/Length Dosing, [...] qWeek, # 4 EA, Refills(s) 3, Pharmacy: [facility] #[id number], 175, cm, 11/24/21 9:21:00 EDT, Height/Length Dosing, 136.3, kg, 11/24/21 9:21:00 EDT, Weight Dosing Start Date: 12/08/21 Status: Ordered Start: 10-15-2021 Ozempic (1 mg dose) 4 mg/3 mL subcutaneous solution 1 mg, SubCutaneous, qWeek, To be filled after 0.5 mg dose is filled, # 1 EA, Refills(s) 11, Pharmacy: [facility]/pharmacy #[id number], 175.3, cm, 09/30/21 11:01:00 EDT, Height/Length Dosing, 136.5, kg, 09/30/21 11:01:00 EDT, Weight Dosing Start Date: 10/15/21 Status: Ordered acetaminophen 325 mg / HYDROcodone bitartrate 5 mg oral tablet (2 sources) Opioid Agonist Start: 11-28-2023 End: 11-30-2023 [place] 325 mg-5 mg oral tablet 1 tab(s), Oral, q6hr for pain for 2 day(s), 8 tab(s), Refill(s) 0, [facility] #[id number], 175, cm, 11/28/23 19:12:00 EDT, Height/Length Dosing, 139, kg, 11/28/23 19:12:00 EDT, Weight Dosing Start Date: 11/28/23 Stop Date: 11/30/23 Status: Ordered Albuterol (Eqv-ProAir HFA) 90 mcg/inh inhalation aerosol (18 sources) Start: 03-14-2023 take 2 puff(s) by inhalation every six hours Albuterol (Eqv-ProAir HFA) 90 mcg/inh inhalation aerosol 2 puff(s), Inhalation, q6hr, 18 gm, Refill(s) 4, [facility] #[id number], 173, cm, 03/14/23 16:23:00 EST, Height/Length Dosing, [...] q6hr for wheezing, 18 gram, Refill(s) 11, [facility] #[id number], 176, cm, 03/25/21 10:04:00 EST, Height/Length Dosing, [...] day(s), # 6 tab(s), Refills(s) 0, Pharmacy: [facility] #[id number], 173, cm, 07/01/23 12:09:00 EST, Height/Length Dosing, 137, kg, 07/01/23 12:09:00 EST, Weight Dosing Start Date: 07/01/23 Stop Date: 07/06/23 Status: Ordered Start: 03-14-2023 End: 03-19-2023 azithromycin 250 mg Tab = 1 packet(s), Oral, As Directed, as directed on package labeling, X 5 day(s), # 6 tab(s), Refills(s) 0, Pharmacy: [facility] #[id number], 173, cm, 03/14/23 16:23:00 EST, Height/Length Dosing, 132.2, kg, 03/14/23 16:23:00 EST, Weight Dosing Start Date: 03/14/23 Stop Date: 03/19/23 Status: Ordered bifidobacterium infantis 4 mg oral capsule (6 sources) Start: 06-22-2021 take 1 capsule by mouth once daily Align 4 mg oral capsule 4 mg = 1 cap(s), Oral, Daily, # 28 cap(s), Refills(s) 2, Pharmacy: [facility] #[id number], 175, cm, 06/22/21 13:23:00 EST, Height/Length Dosing, 134.4, kg, 06/22/21 13:23:00 EST, Weight Dosing Start Date: 06/22/21 Status: Ordered brexpiprazole 3 mg oral tablet (20 sources) Atypical Antipsychotic Start: 05-20-2023 take 1 tablet by mouth once daily Rexulti 3 mg oral tablet 3 mg = 1 tab(s), Oral, Daily, Refills(s) 0 Start Date: 05/20/23 Status: Ordered [...] Daily, # 30 tab(s), Refills(s) 0, Pharmacy: [facility] #[id number], 175, cm, 10/26/19 8:51:00 EDT, Height/Length Measured, [...] 45 MG Extended Release Oral Tablet [Auvelity] (15 sources) Start: 05-20-2023 take 1 tablet by mouth twice daily Auvelity 45 mg-105 mg oral tablet, extended release 1 tab(s), Oral, BID, Refill(s) 0 Start Date: 05/20/23 Status: Ordered Start: 05-20-2023 Auvelity 45 mg -105 mg oral tablet, extended release Refill(s) 0 Start Date: 05/20/23 Status: Ordered busPIRone hydrochloride 15 mg oral tablet (20 sources) Start: 05-20-2023 take 1 tablet by mouth three times daily busPIRone 15 mg Tab 15 mg = 1 tab(s), Oral, TID Start Date: 05/20/23 Status: Ordered Start: 09-23-2022 [...] Status: Ordered cephalexin 500 mg oral capsule (2 sources) Cephalosporin Antibacterial Start: 11-29-2023 End: 12-09-2023 take 1 capsule by mouth three times daily Keflex 500 mg Cap 500 mg = 1 cap(s), Oral, TID, X 10 day(s), # 30 cap(s), Refills(s) 0, Pharmacy: [facility] #[id number], 175, cm, 11/29/23 20:31:00 EDT, Height/Length Dosing, 139, kg, 11/29/23 20:31:00 EDT, Weight Dosing Start Date: 11/29/23 Stop Date: 12/09/23 Status: Ordered ciprofloxacin 500 mg oral tablet (4 sources) Quinolone Antimicrobial Start: 01-13-2024 take 1 tablet by mouth once daily Cipro 500 mg Tab See Instructions, 1 tab po day prior to cysto, 1 tab po following cysto, # 2 tab(s), Refills(s) 0, Pharmacy: [facility] #[id number], 175, cm, 01/13/24 10:23:00 EDT, Height/Length Dosing, 137, kg, 01/13/24 10:23:00 EDT, Weight Dosing Start Date: 01/13/24 Status: Ordered Start: 12-25-2021 take 1 tablet by [facility] twice daily Cipro 500 mg Tab 500 mg = 1 tab(s), Oral, BID, # 28 tab(s), Refills(s) 0 Start Date: 12/25/21 Status: Ordered clindamycin 300 mg oral capsule (3 sources) Lincosamide Antibacterial Start: 11-28-2023 End: 12-05-2023 take 1 capsule by mouth every six hours clindamycin 300 mg oral cap 300 mg = 1 cap(s), Oral, q6hr, X 7 day(s), # 28 cap(s), Refills(s) 0, Pharmacy: [facility] #[id number], 175, cm, 11/28/23 19:12:00 EDT, Height/Length Dosing, 139, kg, 11/28/23 19:12:00 EDT, Weight Dosing Start Date: 11/28/23 Stop Date: 12/05/23 Status: Ordered Clotrimazole (6 sources) Azole Antifungal Start: 06-22-2021 clotrimazole Top 1% Crm 1 carlo, Topical, BID, 45 gram, Refill(s) 0, [facility] #[id number], 175, cm, 06/22/21 13:23:00 EST, Height/Length Dosing, 134.4, kg, 06/22/21 13:23:00 EST, Weight Dosing Start Date: 06/22/21 Status: Ordered dextromethorphan-bu PROPion (AUVELITY) 45-105 mg tablet (2 sources) Start: 03-10-2023 take 1 tablet by mouth twice daily dextromethorphan-b uPROPion (AUVELITY) 45-105 mg tablet 1 tablet Orally [...] QID, # 12 tab(s), Refills(s) 0, Pharmacy: [facility] #[id number], 175, cm, 02/06/21 19:35:00 EDT, Height/Length Dosing, [...] day(s), # 4 EA, Refills(s) 5, Pharmacy: [facility] #[id number], 175, cm, 12/31/21 19:57:00 EDT, Height/Length Dosing, [...] Status: Ordered famotidine 40 mg oral tablet (20 sources) Histamine-2 Receptor Antagonist Start: 08-19-19 Start: 05-23-2022 take 1 tablet by zenobia once daily Pepcid 20 mg Tab 20 mg = 1 tab(s), Oral, Daily, # 14 tab(s), Refills(s) 0, Pharmacy: [facility]/pharmacy #[id number], 175, cm, 05/23/22 6:53:00 EST, Height/Length Dosing, 139.2, kg, 05/23/22 6:53:00 EST, Weight Dosing Start Date: 05/23/22 Status: Ordered Flonase 0.05 mg/inh nasal spray (6 sources) Start: 12-15-2018 Flonase 0.05 m g/inh nasal spray 2 spray(s), Nasal, Daily, 16 gram, Refill(s) 5, each nostril, [facility] #[id number] Start Date: 12/15/18 Status: Ordered fluticasone propionate [...] Daily, 16 gram, Refill(s) 5, each nostril, [facility] #[id number] Start Date: 12/15/18 Status: Ordered Comment on [...] Comment on above: INHALE 2 PUFFS BY MO UT TWICE DAILY DIRECTED 1 ml galcanezumab-gnlm 120 mg/ml auto-injector (20 sources) Start: 05-20-19 inject 1 mL by subcutaneous injection every month Emgality Prefilled Pen 120 mg/mL subcutaneous solution SubCutaneous, qMonth, ADMINISTER 1 ML UNDER THE SKIN MONTHLY, Migraine headache Start Date: 05/20/23 Status: Ordered Start: 10-07-2022 inject 1 mL by subcu taneous injection every 30 days galcanezumab-gnlm (EMGALITY PEN) 120 mg/mL pen ADMINISTER 1 ML UNDER THE SKIN EVERY 30 DAYS 0 10/07/2022 Active Start: 08-25-2021 inject 1 mg by subcu taneous injection every month Emgality Prefilled Syringe 120 mg/mL subcutaneous solution mg, SubCutaneous, qMonth Start Date: 08/25/21 Status: Ordered Imodium A-D EZ Chews 2 mg oral tablet, chewable (15 sources) Start: 10-21-2022 Imodium A-D EZ Chews 2 mg oral tablet, chewable 2 mg, 1 tab(s), Chewed, q4hr Diarrhea, 12 tab(s), Refill(s) 0, [id number], 173, cm, 10/21/22 16:01:00 EDT, Height/Length Dosing, 139, kg, 10/21/22 16:01:00 EDT, Weight Dosing Start Date: 10/21/22 Status: Ordered L-Tyrosine (3 sources) Start: 03-25-2021 L-Tyrosine Ref ills(s) 0 Start Date: 03/25/21 Status: Ordered lamoTRIgine (6 sources) Mood Stabilizer, Anti-epileptic Agent Start: 06-22-2021 lamotrigine 25 mg Ta b Refills(s) 0 Start Date: 06/22/21 Status: Ordered [...] Chewed, q4hr Diarrhea, 12 tab(s), Refill(s) 0, [id number], 173, cm, 10/21/22 16:01:00 EDT, Height/Length Dosing, 139, kg, 10/21/22 16:01:00 EDT, Weight Dosing Start Date: 10/21/22 Status: Ordered Start: 02-06-2021 take 1 tablet by zenobia th every four hours as needed Imodium A-D 2 mg oral tablet 2 mg = 1 tab(s), Oral, q4hr, PRN for loose stools, # 12 tab(s), Refills(s) 0, Pharmacy: [facility] #[id number], 175, cm, 02/06/21 19:35:00 EDT, Height/Length Dosing, 136, kg, 02/06/21 19:35:00 EDT, Weight Dosing Start Date: 02/06/21 Status: Ordered lumateperone 42 mg oral capsule (3 sources) Start: 06-22-2021 Caplyta 42 mg oral capsule Refills(s) 0 Start Date: 06/22/21 Status: Ordered Magnesium Oxide (20 sources) Start: 09-23-2022 magnesium oxid e Oral, Refills(s) 0 Start Date: 09/23/22 Status: Ordered meclizine hydrochloride 25 mg oral tablet (2 sources) Antiemetic Start: 12-31-2021 End: 01-05-2022 take 1 tablet by mouth three times daily meclizine 25 mg Tab 25 mg = 1 tab(s), Oral, TID, X 5 day(s), # 15 tab(s), Refills(s) 0, Pharmacy: [facility] #[id number], 175, cm, 12/31/21 19:57:00 EDT, Height/Length Dosing, [...] day(s), # 120 tab(s), Refills(s) 3, Pharmacy: [facility] #[id number], 176, cm, 08/25/21 14:44:00 EDT, Height/Length Dosing, [...] day(s), # 28 tab(s), Refills(s) 0, Pharmacy: [facility] #[id number], 173, cm, 07/25/23 18:35:00 EDT, Height/Length Dosing, [...] qPM, # 30 tab(s), Refills(s) 1, Pharmacy: [facility] #[id number], 175, cm, 06/22/21 13:23:00 EST, Height/Length Dosing, 134.4, kg, 06/22/21 13:23:00 EST, Weight Dosing Start Date: 06/22/21 Status: Ordered Comment on above: Take 1 tablet by zenobia th daily at bedtime. Mounjaro (2 sources) Start: 09-23-2022 Mounjaro SubCutaneous, qWeek, Refills(s) 0 Start Date: 09/23/22 Status: Ordered Mounjaro (19 sources) Start: 09-23-2022 Mounjaro SubCutaneous, qWeek, Fridays, Refills(s) 0 Start Date: 09/23/22 Status: Ordered Start: 09-23-2022 Mounjaro SubCu taneous, qWeek, Refills(s) 0 Start Date: 09/23/22 Status: Ordered Multi Vitamin+ (20 sources) Start: 02-27-2019 Multi Vitamin+ 1 gummy, Chewed, Daily, Refill(s) 0 Start Date: 02/27/19 Status: Ordered naproxen 500 mg oral tablet (7 sources) Nonsteroidal Anti-inflammatory Drug Start: 11-29-2023 take 1 tablet by mouth twice daily as needed for pain Naprosyn 500 mg Tab 500 mg = 1 tab(s), Oral, BID, PRN for pain, # 20 tab(s), Refills(s) 0, Pharmacy: [facility] #[id number], 175, cm, 11/29/23 20:31:00 EDT, Height/Length Dosing, 139, kg, 11/29/23 20:31:00 EDT, Weight Dosing Start Date: 11/29/23 Status: Ordered Non-Formulary Medication (17 sources) Start: 07-07-2020 Non-Formulary Medication See Instructions, L Tyrosine 1 tablet daily Start Date: 07/07/20 Status: Ordered nystatin [id number] unt/ml topical cream (19 sources) Polyene Antifungal Start: 12-21-2022 nystatin To p 100,000 units/g Crm 15 gram 1 carlo, Topical, BID, 30 gram, Refill(s) 1, [facility] #[id number], 173, cm, 12/21/22 13:04:00 EDT, Height/Length Dosing, 137.9, kg, 12/21/22 13:04:00 EDT, Weight Dosing Start Date: 12/21/22 Status: Ordered omeprazole 10 mg delayed release oral capsule (20 sources) Proton Pump Inhibitor Start: 06-23-2020 take 1 capsule by mouth twice daily omeprazole 10 mg Cap-EC 10 mg = 1 cap(s), Oral, BID, # 180 caplet(s), Refills(s) 1, Pharmacy: [facility] #[id number], 175, cm, 06/05/20 9:59:00 EST, Height/Length Dosing, 133.3, kg, 06/05/20 9:59:00 EST, Weight Dosing Start Date: 06/23/20 Status: Ordered Start: 03-26-2020 take 1 capsule by mo [facility] twice daily 30 minutes before breakfast omeprazole [...] omeprazole 10 mg Cap-EC (6 sources) Start: 1 take 1 capsule by mouth twice daily omeprazole 10 mg Cap-EC 10 mg = 1 cap(s), Oral, BID, # 180 caplet(s), Refills(s) 1, Pharmacy: [facility] #[id number], 175, cm, 06/05/20 9:59:00 EST, Height/Length Dosing, [...] 25 mg = 1 cap(s), Oral, BID, Refills(s) 0, Other (see comment) Start Date: 05/20/23 Status: Ordered Start: 04-16-2020 take 1 capsule by mo uth twice daily pregabalin 75 mg Cap 75 mg = 1 cap(s), Oral, BID, Refills(s) 0 Start Date: 04/16/20 Status: Ordered Start: 04-07-2020 take 1 capsule by mo ut three times daily Pregabalin (LYRICA) 200 mg capsule Indications: Myalgia , Chronic pain syndrome , Lumbar disc herniation , Radiculopathy, lumbosacral region Take 1 capsule by mouth three times daily for 180 days. 90 capsule 5 04/07/2020 Active Start: 01-30-2016 take 1 capsule by mo [facility] every eight hours Comment on above: Take 1 capsule by mo ut three times daily for 180 days. promethazine hydrochloride 12.5 mg rectal suppository (20 sources) Phenothiazine Start: 3 take 12.5 mg rectal route every four hours as needed for nausea Phenergan 12.5 mg Supp 12.5 mg = 1 supp, Rectal, q4hr, PRN Nausea/Vomiting, # 6 EA, Refills(s) 0, Pharmacy: [facility] #[id number], 173, cm, 04/06/23 13:57:00 EST, Height/Length Dosing, 134.1, kg, 04/06/23 13:57:00 EST, Weight Dosing Start Date: 04/06/23 Status: Ordered Start: 05-23-2022 take 25 mg rectal ro [place] every six hours as needed for nausea Phenergan 25 mg Supp 25 mg = 1 supp, Rectal, q6hr, PRN Nausea/Vomiting, # 6 EA, Refills(s) 0, Pharmacy: [facility]/pharmacy #[id number], 175, cm, 05/23/22 6:53:00 EST, Height/Length [...] mg, SubCutaneous, qWeek, 1 EA, Refill(s) 0, [facility]/pharmacy #[id number], 175.3, cm, 09/30/21 11:01:00 EDT, Height/Length Dosing, 136.5, kg, 09/30/21 11:01:00 EDT, Weight Dosing Start Date: 10/15/21 Status: Ordered Start: 08-25-2021 inject 0.25 mg by esposito bcutaneous injection every week Ozempic 2 mg/1.5 mL (0.25 mg or 0.5 mg dose) subcutaneous solution 0.25 mg, SubCutaneous, qWeek, 1 EA, Refill(s) 0, [facility] #[id number], 176, cm, 08/25/21 14:44:00 EDT, Height/Length Dosing, [...] oral tablet (1 source) Aluminum Complex Start: 023 End: 023 take 1 tablet by mouth four times daily Carafate 1 gram Tab 1 gm = 1 tab(s), Oral, QID, X 7 day(s), # 28 tab(s), Refills(s) 0, Pharmacy: [facility]/pharmacy #[id number], 175, cm, 05/23/22 6:53:00 EST, Height/Length Dosing, 139.2, kg, 05/23/22 6:53:00 EST, Weight Dosing Start Date: 05/23/22 Stop Date: 05/30/22 Status: Ordered sulfamethoxazole 800 mg / trimethoprim 160 mg oral tablet (3 sources) Dihydrofolate Reductase Inhibitor Antibacterial, Sulfonamide Antimicrobial Start: Bactrim D.S. 800 mg-160 mg Tab 1 tab(s), Oral, BID, 20 tab(s), Refill(s) 0, [facility] #[id number], 175, cm, 11/29/23 20:31:00 EDT, Height/Length Dosing, 139, kg, 11/29/23 20:31:00 EDT, Weight Dosing Start Date: 11/29/23 Status: Ordered Symbicort 160/4.5 inhalation aerosol with adapter (17 sources) Start: Symbicort 160/4.5 inhalation aerosol with adapter 2 puff(s), Inhalation, BID, 1 EA, Refill(s) 0, rinse mouth and throat after use, [facility] #[id number], 175, cm, 06/22/21 13:23:00 EST, Height/Length [...] 90 tab(s), Refills(s) 1, Pharmacy: [facility], 175, cm, 09/15/20 13:52:00 EDT, Height/Length Dosing, 128, kg, 09/15/20 13:52:00 EDT, Weight Dosing Start Date: 09/16/20 Status: Ordered traZODone hydrochloride 50 mg oral tablet (20 sources) Serotonin Reuptake Inhibitor Start: 10-17-19 take 1 tablet by mouth once daily at bedtime traZODONE 50 mg Tab 50 mg = 1 tab(s), Oral, Once a day (at bedtime), Refills(s) 0, Sleep Start Date: 10/17/19 Status: Ordered take 1 tablet by mouth every twe nty-four hours ubrogepant 100 mg oral tablet (17 sources) Start: 05-20-2023 take 1 tablet by mouth every two hours as needed Ubrelvy 100 mg oral tablet TAKE 1 TABLET BY MOUTH AT ONSET OF MIGRAINE. MAY REPEAT AFTER 2 HOURS NEEDED 30 DAYS Start Date: 05/20/23 Status: Ordered Vitamin B Complex oral capsule (20 sources) Start: 07-07-2020 Vitamin B Comp roxanne oral capsule 1 tab(s), Oral, Daily, 90 cap(s), Refill(s) 0 Start Date: 07/07/20 Status: Ordered Vitamin D (20 sources) Start: 07-07-2020 Vitamin D Refi lls(s) 0 Start Date: 07/07/20 Status: Ordered Zofran ODT 4 mg Tab-Dis (20 sources) Start: 04-06-2023 take 1 tablet by mouth every eight hours as needed for nausea Zofran ODT 4 mg Tab-Dis 4 mg = 1 tab(s), Oral, q8hr, PRN Nausea/Vomiting, # 30 tab(s), Refills(s) 0, Pharmacy: [facility] #[id number], 173, cm, 04/06/23 13:57:00 EST, Height/Length Dosing, 134.1, kg, 04/06/23 13:57:00 EST, Weight Dosing Start Date: 04/06/23 Status: Ordered Start: 10-21-2022 take 1 tablet by zenobia th every eight hours Zofran ODT 4 mg Tab-Dis 4 mg = 1 tab(s), Oral, q8hr, # 10 tab(s), Refills(s) 0, Pharmacy: [facility]/pharmacy #[id number], 173, cm, 10/21/22 16:01:00 EDT, Height/Length Dosing, 139, kg, 10/21/22 16:01:00 EDT, Weight Dosing Start Date: 10/21/22 Status: Ordered Start: 05-23-2022 take 1 tablet by zenobia th every eight hours Zofran ODT 4 mg Tab-Dis 4 mg = 1 tab(s), Oral, q8hr, # 12 tab(s), Refills(s) 0, Pharmacy: [facility]/pharmacy #[id number], 175, cm, 05/23/22 6:53:00 EST, Height/Length Dosing, 139.2, kg, 05/23/22 6:53:00 EST, Weight Dosing Start Date: 05/23/22 Status: Ordered Start: 02-06-2021 take 1 tablet by zenobia th every eight hours Zofran ODT 4 mg Tab-Dis 4 mg = 1 tab(s), Oral, q8hr, # 10 tab(s), Refills(s) 0, [id number], 175, cm, 02/06/21 19:35:00 EDT, Height/Length Dosing, [...] units, Inhalation, q4hr Wheezing, 30 EA, Refill(s) 11 [facility] #[id number], 176, cm, 03/25/21 10:04:00 EST, Height/Length Dosing, 136.6, kg, 03/25/21 10:04:00 EST, Weight Dosing Start Date: 03/25/21 Status: Ordered Start: 03-25-2021 take 30 doses by inh alation every four hours albuterol 0.083% Inh Padma 3 mL 0.083% - 3mL dosing units, Inhalation, q4hr Wheezing, 30 EA, Refill(s) 11 [facility] #[id number], 176, cm, 03/25/21 10:04:00 EST, Height/Length Dosing, [...] only takes 1 at this time. Not-Taking [id number] 0.3 ml EPINEPHrine 1 mg/ml auto-injector (9 [...] as directed. fluconazole 150 mg oral tablet (8 sources) Azole Antifungal Start: 07-01-2023 take 1 tablet by mouth once Diflucan 150 mg Tab 150 mg = 1 tab(s), Oral, Once, 1 tab when antibiotic starts, and 1 tab at the completion of the antibiotic, # 2 tab(s), Refills(s) 1, Pharmacy: [facility] #[id number], 173, cm, 07/01/23 12:09:00 EST, Height/Length Dosing, 137, kg, 07/01/23 12:09:00 EST, Weight Dosing Start Date: 07/01/23 Status: Ordered Glucometer n/a (3 sources) Start: 06-15-2018 Start: 06-15-2018 Glucometer n/a as directed as directed as directed for as directed Jun, Not-Taking hydrOXYzine pamoate 25 mg oral capsule (20 sources) Antihistamine Start: 05-20-2023 take 1 capsule by mouth every six hours as needed for anxiety hydrOXYzine pamoate 25 mg Cap 25 mg = 1 cap(s), Oral, PRN as needed for anxiety, TAKE 1 CAPSULE BY MOUTH EVERY 6 HOURS NEEDED FOR ANXIETY Start Date: 05/20/23 Status: Ordered Start: 03-22-2022 take 1 capsule by mo uth once daily at bedtime as needed hydrOXYzine pamoate (VISTARIL) 25 mg capsule TAKE 1 CAPSULE BY MOUTH EVERY DAY AT BEDTIME NEEDED 0 03/22/2022 Active Comment on above: TAKE 1 CAPSULE BY MO UTH EVERY DAY AT BEDTIME NEEDED hyoscyamine sulfate 0.125 mg oral tablet (3 sources) Start: 07-11-19 22 take 1 tablet by mouth every six hours Ketorolac (2 sources) Nonsteroidal Anti-inflammatory Drug, Cyclooxygenase Inhibitor Start: 09-08-19 15 Toradol per 15 mg September, 60 mg mesalamine 500 mg extended release oral capsule (12 sources) Aminosalicylate Start: 02-25-20 18 take 1 capsule by mouth four times [...] See Instructions, 1 EA, 0, Nebulizer Machine, [facility] #[id number], Supply, 175, cm, 07/02/21 10:47:00 EST, Height/Length [...] kit(s), 0, Nebulizer Tubing and Mouthpiece Kit, [facility] #[id number], Supply, 175, cm, 07/02/21 10:47:00 EST, Height/Length [...] days, # 18 tab(s), Refills(s) 0, Pharmacy: [facility] #[id number], 175, cm, 12/31/21 19:57:00 EDT, Height/Length Do... Start Date: 02/11/22 Status: Ordered Start: 07-02-2021 predniSONE 20 mg Tab 20 mg = 1 tab(s), Oral, As Directed, Take three tabs by mouth for three days, then two tabs for three days, then one tab for three days, # 18 tab(s), Refills(s) 0, Pharmacy: [facility] #[id number], 175, cm, 07/02/21 10:47:00 EST, Height/Length Do... Start Date: 07/02/21 Status: Ordered raNITIdine (3 sources) Histamine-2 Receptor Antagonist Zantac 300 1 PO BID Orally Twice a day for 30 days Not-Taking topiramate 100 mg oral tablet (3 sources) take 1 tablet by mouth every twelve hours verapamil hydrochloride 120 mg extended release oral tablet (20 sources) Calcium Channel Joanna Start: 05-20-2023 take 1 tablet by mouth once daily verapamil 120 mg ER Tab 120 mg = 1 tab(s), Oral, Daily, TAKE 1 TABLET BY MOUTH EVERY DAY, Migraine headache Start Date: 05/20/23 Status: Ordered Start: 02-11-2020 take 1 capsule by mo [facility] once daily verapamil 120 mg Cap-ER 120 mg = 1 cap(s), Oral, Daily, Refills(s) 0 Start Date: 02/11/20 Status: [facility] verapamil (CALAN, ISOPTIN) 120 mg tablet Take 120 mg by mouth once daily. 0 Active Verapamil HCl ER Active Comment on above: Take 120 mg by mouth once daily. Problems Active Problems Problem Classification Problem Date [...] disease 02-09-2021 Chronic Coagulation and hemorrhagic disorders (10 sources) Factor V Leiden mutation; Translations: [Primary hypercoagulable state] 12-16-2023 Chronic Conditions associated with dizziness or vertigo [...] Translations: [Gastrointestinal hemorrhage] Onset: 9 02-09-2021 Episodic Genitourinary symptoms and ill-defined conditions (2 sources) Mixed incontinence; Translations: [Incontinence] Onset: 4 Chronic Genitourinary symptoms and ill-defined conditions (19 sources) Urine drug levels - finding; Translations: [Poor stream of urine] Onset: 4 Resolved: 9 12-04-2018 Episodic Comment on above: Positive for Amp[place] mines in ER 02/2015; patient reported she was unaware of why tox screen was positive Positive for [place] mines in ER 02/2015; patient reported she was unaware of why tox screen was positive Headache; including migraine (20 sources) Migraine; Translations: [...] depressed, moderate] Onset: 8 05-25-2019 Chronic Mycoses (20 sources) Candidiasis of skin and nail; Translations: [Candidal paronychia ] Onset: 8 Episodic Nausea and vomiting (16 sources) Nausea with vomiting, unspecified; Translations: [Nausea] Onset: 8 Episodic Noninfectious gastroenteritis (2 sources) Noninfective gastroenteritis and colitis, unspecified; Translations: [Noninfectious enteritis] Onset: 8 Episodic Nonmalignant breast conditions (14 sources) Discharge from nipple; Translations: [Nipple discharge] Onset: 4 Episodic Nonspecific chest pain (17 sources) Chest pain 09-15-2020 Episodic Osteoarthritis (11 sources) Arthritis; Translations: [Unspecified osteoarthritis, unspecified site] 04-20-2016 Chronic Other aftercare (1 source) Long-term current use of oral hypoglycemic medication; 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] Episodic Other circulatory disease (17 sources) Bleeds profusely 08-06-2020 Episodic Other circulatory disease (17 sources) Easy bruising 08-06-2020 Episodic Other complications of ; puerperium affecting management of mother (15 sources) Disorder of 05-20-2023 Episodic Other connective tissue disease (20 sources) Fibromyositis 07-20-2013 Episodic Other connective tissue disease (20 sources) Fibromyalgia; Translations: [Fibromyalgia] Onset: 6 02-27-2019 Episodic Other diseases of bladder and urethra (1 source) Detrusor overactivity; Translations: [Overactive bladder] Onset: 4 Chronic Other diseases of bladder and urethra (1 source) Overactive bladder 01-13-2024 Chronic Other endocrine disorders (20 sources) Polycystic ovaries; [...] (3 sources) Hirsutism; Translations: [Hirsutism] Episodic Other skin disorders (2 sources) Sebaceous cyst of skin; Translations: [Sebaceous cyst] Onset: 4 Episodic Other skin disorders (5 sources) Infection of sebaceous cyst 12-09-2023 Episodic Other upper respiratory disease (1 source) [...] [Sleep apnea, unspecified] Chronic Residual codes; unclassified (20 sources) Obstructive sleep apnea syndrome; Translations: [Obstructive [...] [Personal history of nicotine dependence] 04-20-2016 Episodic Skin and subcutaneous tissue infections (3 sources) Infection of skin and/or subcutaneous tissue; Translations: [Local infection of the skin and subcutaneous tissue, unspecified] Onset: 4 Episodic Spondylosis; intervertebral disc disorders; other back [...] source) Dehydration; Translations: [DEHYDRATION] Onset: 06-07-2017 Episodic Other circulatory disease (1 source) Elevated blood-pressure [...] (13 sources) crohns( Confirmed ) 12-13-2009 Unclassified (20 sources) crohns 12-13-2009 Results Test Name Value Interpretation Reference Range Facility Ambulatory Visit Summaryon 0 01-13-2024 Ambulatory Visit Summary Ambulatory Visit Summary ALMA DELIA PEARL :1985 MRN: Visit Date:01/13/2024 Ambulatory Visit Instructions Your Diagnosis Mixed incontinence Weak urine stream OAB (overactive bladder) Diabetes DIETER (obstructive sleep apnea) Feeling of incomplete bladder emptying These Are Your Goals Diabetes Mellitus-Improve glucose levels Interventions: Complete lab work as ordered. Increase daily exercise to 60 minutes a day. Review education pamphlets/books. Take a fasting glucose every morning. Obesity-Lose weight current weight 286.2 Interventions: Increase daily exercise to 60 minutes a day Make better food choices. Review balance diet pamphlet. Chronic pain-decrease back pain. Interventions: Continue with appointments at [facility] pain clinic. Increase daily exercise Lose weight Take Medications as Prescribed Your Care Team Attending Physician - KYUNG PAUL PA-C Primary Care Physician - Irasema Love Referring Physician - SAMANTA CASTELLANOS PA-C This Is Your Medications List Misc Prescription (Nebulizer Machine) Misc Prescription (Nebulizer Machine) Misc Prescription (Nebulizer Tubing and Mouthpiece Kit) Misc Prescription (Nebulizer and supplies) Misc Prescription (Test strips-True Metrix) Misc Prescription (lancets) Misc Prescription (na) albuterol (Albuterol (Eqv-ProAir HFA) 90 mcg/inh inhalation aerosol) albuterol (albuterol 0.083% Inh Padma 3 mL) ascorbic acid (Vitamin C) brexpiprazole (Rexulti 3 mg oral tablet) bupropion-dextrometh orphan (Auvelity 45 mg-105 mg oral tablet, extended release) busPIRone (busPIRone 15 mg Tab) ergocalciferol (Vitamin D) famotidine (Pepcid 20 mg Tab) galcanezumab (Emgality Prefilled Pen 120 mg/mL subcutaneous solution) hydrOXYzine (hydrOXYzine pamoate 25 mg Cap) loperamide (Imodium A-D EZ Chews 2 mg oral tablet, chewable) magnesium oxide multivitamin (Multi Vitamin+) multivitamin (Vitamin B Complex oral capsule) naproxen (Naprosyn 500 mg Tab) nystatin topical (nystatin Top 100,000 units/g Crm 15 gram) omeprazole (omeprazole 10 mg Cap-EC) ondansetron (Zofran 4 mg Tab) ondansetron (Zofran ODT 4 mg Tab-Dis) pregabalin (pregabalin 25 mg Cap) promethazine (Phenergan 12.5 mg Supp) promethazine (Phenergan 25 mg Supp) tirzepatide (Mounjaro) trazodone (traZODONE 50 mg Tab) ubrogepant (Ubrelvy 100 mg oral tablet) verapamil (verapamil 120 mg ER Tab) Procedures Performed Cyst of breast (12/21/2023), Colonoscopy (02/01/2018), EGD & Colonoscopy (06/01/2016), EGD & Colooscopy (07/31/2014), Colonoscopy (04/28/2012), Colonoscopy, Decompression of lumbar spine, laproscopy x3, Tonsillectomy. Discharge Vitals Heart Rate (Peripheral) 67 Respiratory Rate 16 Blood Pressure 113/74 Height 69 in Height 175 cm Weight 301.4 lb Weight 137 kg BMI 44.73 What to do next Scheduled Follow-Up Appointments Tuesday. 2024 8:00 AM EDT Where: [facility] [address], [place] [address]- Medications What How Much When Why Instructions Unchanged albuterol (Albuterol (Eqv-ProAir HFA) 90 mcg/ inh inhalation aerosol) 2 Puffs Inhalation Every 6 hours Mild intermittent asthma Unchanged albuterol (albuterol 0.083% Inh Padma 3 mL) 0.083% - 3mL dosing units Inhalation Every 4 hours as needed for Wheezing Unchanged ascorbic acid (Vitamin C) Unchanged brexpiprazole (Rexulti 3 mg oral tablet) 1 Tablets By Mouth Every day Unchanged bupropion-dextrometh orphan (Auvelity 45 mg-105 mg oral tablet, extended release) 1 Tablets By Mouth 2 times a day Unchanged busPIRone (busPIRone 15 mg Tab) 1 Tablets By Mouth 3 times a day Unchanged ergocalciferol (Vitamin D) Unchanged famotidine (Pepcid 20 mg Tab) 1 Tablets By Mouth Every day Unchanged galcanezumab (Emgality Prefilled Pen 120 mg/ mL subcutaneous solution) Subcutaneous Once a month ADMINISTER 1 ML UNDER THE SKIN MONTHLY Unchanged hydrOXYzine (hydrOXYzine pamoate 25 mg Cap) 1 Capsules By Mouth As needed for as needed for anxiety TAKE 1 CAPSULE BY MOUTH EVERY 6 HOURS NEEDED FOR ANXIETY Unchanged loperamide (Imodium A-D EZ Chews 2 mg oral tablet, chewable) 1 Tablets Chewed Every 4 hours as needed for Diarrhea Unchanged magnesium oxide By Mouth Unchanged Misc Prescription (lancets) See instructions lancets test daily E11.9 Unchanged Misc Prescription (na) See instructions provide patient with lancets and glucometer strips. Check glucose daily. Unchanged Misc Prescription (Nebulizer and supplies) See instructions Pt requires nebulizer and tubing/ supplies DX: J45.909 Unchanged Misc Prescription (Nebulizer Machine) See instructions Asthma exacerbation attacks Nebulizer Machine Unchanged Misc Prescription (Nebulizer Machine) See instructions Nebulizer Machine Unchanged Misc Prescription (Nebulizer Tubing and Mouthpiece Kit) See instructions Asthma exacerbation attacks Nebul (more content not included)... Normal [facility] Urology Office/Clinic Noteon 01-13-2024 Urology Office/Clinic Note Urology Office/Clinic Note Chief Complaint New patient stress incontinence HPI Staff 38 year old female referred by Dr. Fitzgerald for incontinence. Stress incontinence for 2+ years. PVR: 13 ml Dysuria: denies Incomplete bladder emptying: yes Hematuria: denies visible blood Frequency: once every 1-2 hours, depends on fluid intake. avoids bladder irritants except for 1 can Pepsi Zero daily. Urgency: severe Nocturia: 1-2x night Stream: has some hesitancy, has a weak stream Leaking: yes Post void dripping: denies Wearing pads/ Depends: pads daily, changes them 1-2 x a day Urge incontinence: at least once a day Stress incontinence: yes coughing, sneezing Incontinence without Sensory Awareness: no Abdominal pain: lower abdominal pain x 2 days. has chrons. UA is neg. Flank pain: denies Review of Systems PHQ Score Initial Depression Screen Score: 0 SCORE no fever, chills, malaise, myalgia. no rash/lesions. no chest pain, palpitations, or SOB. no abdominal pain, nausea, vomiting. no unilateral calf swelling, redness, pain Physical Exam Vitals & Measurements HR: 67(Peripheral) RR: 16 BP: 113/74 HT: 69 in HT: 175 cm WT: 137 kg WT: 301.4 lb BMI: 44.73 General: nontoxic, NAD Mouth: moist mucosa Lungs: normal respiratory effort Cardio: regular rate, good distal perfusion Abdomen: nondistended, no suprapubic distention or tenderness, no CVA tenderness Neurologic: Grossly normal Skin: No rashes or suspicious lesions Assessment/Plan saw [facility] many years ago and had urodynamics, then PFPT, then was rx'd Oxybutynin but never took it bc she felt the PFPT was helping. minimal urinary sx for several years. started worsening a few years ago and have progressed. (all spontaneous miscarriages) 3 previous laproscopy to r/o endometriosis 1. Mixed incontinence (N39.46: Mixed incontinence) BBS 20 poor control UUI>PATRICIA good response previously to PFPT has never tried meds -will try PFPT again through [facility]. referral placed. -if insufficient improvement in sx w PFPT and cysto/UD, can consider oral meds. pt given list to check insurance coverage. Ordered: ciprofloxacin, See Instructions, 1 tab po day prior to cysto, 1 tab po following cysto, # 2 tab(s), Refills(s) 0, Pharmacy: [facility] #[id number], 175, cm, 01/13/24 10:23:00 EDT, Height/Length Dosing, 137, kg, 01/13/24 10:23:00 EDT, Weight Dosing E&M of New Patient Moderate 45-59 Min [id number] [facility] Outpatient Physical Therapy Evaluate Patient, Develop a Plan of Care, & Implement Plan Urology Procedure Order 2. Weak urine stream (R39.12: Poor urinary stream) PVR ok but says it takes her a long time to empty. possible urethral stricture? -Will schedule Cysto with UD. The procedure risks, benefits, details, and treatment alternatives have been discussed with the patient. These include bleeding, infection, recurrent scar in over 50%, need for repeat dilation or other procedures, no symptom relief with dilation, among others. Full informed consent has been obtained. Will order Local anesthesia. Ordered: ciprofloxacin, See Instructions, 1 tab po day prior to cysto, 1 tab po following cysto, # 2 tab(s), Refills(s) 0, Pharmacy: [facility] #[id number], 175, cm, 01/13/24 10:23:00 EDT, Height/Length Dosing, 137, kg, 01/13/24 10:23:00 EDT, Weight Dosing E&M of New Patient Moderate 45-59 Min 42313 Urology Procedure Order 3. OAB (overactive bladder) (N32.81: Overactive bladder) hx Chrons, follows w Dr Patel on multiple psych meds which can cause frequency/urgency (Buspar <1%, Lyrica 1-3%, Trazodone 1-10%) see #1 Ordered: ciprofloxacin, See Instructions, 1 tab po day prior to cysto, 1 tab po following cysto, # 2 tab(s), Refills(s) 0, Pharmacy: [facility] #[id number], 175, cm, 01/13/24 10:23:00 EDT, Height/Length Dosing, 137, kg, 01/13/24 10:23:00 EDT, Weight Dosing E&M of New Patient Moderate 45-59 Min 37572 [facility] Outpatient Physical Therapy Evaluate Patient, Develop a Plan of Care, & Implement Plan Urology Procedure Order 4. Diabetes (E11.9: Type 2 diabetes mellitus without complications) sees [facility] A1c 07/06/23 - 6.1 Ordered: ciprofloxacin, See Instructions, 1 tab po day prior to cysto, 1 tab po following cysto, # 2 tab(s), Refills(s) 0, Pharmacy: [facility] #[id number], 175, cm, 01/13/24 10:23:00 EDT, Height/Length Dosing, 137, kg, 01/13/24 10:23:00 EDT, Weight Dosing E&M of New Patient Moderate 45-59 Min 66753 5. DIETER (obstructive sleep apnea) (G47.33: Obstructive sleep apnea (adult) (pediatric)) compliant w CPAP Ordered: ciprofloxacin, See Instructions, 1 tab po day prior to cysto, 1 tab po following cysto, # 2 tab(s), Refills(s) 0, Pharmacy: [facility] #[id number], 175, cm, 01/13/24 10:23:00 EDT, Height/Length Dosing, 137, kg, 01/13/24 10:23:00 EDT, Weight Dosing E&M of New Patient Moderate 45-59 Min 93470 Orders: [id number] Measure Post Void residual urine and/or bladder capacity by (more content not included)... Normal [facility] Comment on above: Result Comment: Elec tronically Signed By: KYUNG PAUL PA-C\.br\Date and Time Signed: 01/13/24 11:12 EDT General Surgery Office/Clini c Noteon 01-05-2024 General Surgery Office/Clinic Note General Surgery Office/Clinic Note Chief Complaint Postop visit following excision of epidermal cyst at the breast [facility] Staff Alma Delia is a 38 y.o. female here for s/p epidermal cyst excision done 12/22/2023 Doing well. Denies fever, chills, vomiting History of Present Illness 38-year-old female status post left breast cyst excision performed on December 21, 2023 here for postop visit. Patient has no new complaints she did notice a small suture protruding from the inferior edge of the incision. She was closed with a knotless closure. Review of Systems Negative other than as stated as above Physical Exam Vitals & Measurements HR: 72(Peripheral) BP: 117/68 HT: 69 in HT: 175 cm WT: 137 kg WT: 301.4 lb BMI: 44.73 Left breast skin incision clean dry intact healing well there is a small Monocryl suture protruding from the inferior aspect where the knot was closure was begun. This was removed in the office. Assessment/Plan 38-year-old female status post left breast cyst excision performed on December 21, 2023 1. Infected sebaceous cyst (L72.3: Sebaceous cyst) Wound is healing well patient may follow-up with us as needed Ordered: Postoperative follow-up visit, related to the original procedure [id number] Local infection of the skin and subcutaneous tissue, unspecified (L08.9: Local infection of the skin and subcutaneous tissue, unspecified) Portions of this record may have been created with voice recognition artificial intelligence software, specifically [employer], [employer] and or [employer]. Substitutions may have occurred due to the inherent limitations of voice recognition and artificial intelligence software. Follow-up No qualifying data available Problem List/Past Medical History Ongoing Amenorrhea Bipolar disorder, current episode depressed, moderate BMI 40.0-44.9, adult BMI 45.0-49.9, adult Breast abscess Crohn disease Depression Diabetes Dysmenorrhea Factor V Leiden Fibromyalgia Galactorrhea in female GERD (gastroesophageal reflux disease) Hyperlipidemia Infected sebaceous cyst Lumbar back pain with radiculopathy affecting right lower extremity Lung nodule Migraine Mild intermittent asthma Morbid obesity Non-smoker DIETER (obstructive sleep apnea) PCOS (polycystic ovarian syndrome) Sinusitis Yeast infection Historical Bipolar crohns Diabetes mellitus Fibromyalgia Gastroesophageal reflux disease Migraine Procedure/Surgical History Cyst of breast (12/21/2023), Colonoscopy (02/01/2018), EGD & Colonoscopy (06/01/2016), EGD & Colooscopy (07/31/2014), Colonoscopy (04/28/2012), Colonoscopy, Decompression of lumbar spine, laproscopy x3, Tonsillectomy. Medications Albuterol (Eqv-ProAir HFA) 90 mcg/inh inhalation aerosol, 2 puff(s), Inhalation, q6hr, 4 refills albuterol 0.083% Inh Padma 3 mL, 0.083% - 3mL dosing units, Inhalation, q4hr, PRN, 11 refills Auvelity 45 mg-105 mg oral tablet, extended release, 1 tab(s), Oral, BID busPIRone 15 mg Tab, 15 mg= 1 tab(s), Oral, TID Emgality Prefilled Pen 120 mg/mL subcutaneous solution, SubCutaneous, qMonth hydrOXYzine pamoate 25 mg Cap, 25 mg= 1 cap(s), Oral, PRN Imodium A-D EZ Chews 2 mg oral tablet, chewable, 2 mg= 1 tab(s), Chewed, q4hr, PRN lancets, See Instructions, 3 refills magnesium oxide, Oral Mounjaro, SubCutaneous, qWeek Multi Vitamin+, 1 gummy, Chewed, Daily na, See Instructions, 6 refills Naprosyn 500 mg Tab, 500 mg= 1 tab(s), Oral, BID, PRN Nebulizer and supplies, See Instructions Nebulizer Machine, See Instructions Nebulizer Machine, See Instructions Nebulizer Tubing and Mouthpiece Kit, See Instructions nystatin Top 100,000 units/g Crm 15 gram, 1 carlo, Topical, BID, 1 refills omeprazole 10 mg Cap-EC, 10 mg= 1 cap(s), Oral, BID, 1 refills Pepcid 20 mg Tab, 20 mg= 1 tab(s), Oral, Daily Phenergan 12.5 mg Supp, 12.5 mg= 1 supp, Rectal, q4hr, PRN Phenergan 25 mg Supp, 25 mg= 1 supp, Rectal, q6hr, PRN pregabalin 25 mg Cap, 25 mg= 1 cap(s), Oral, BID Rexulti 3 mg oral tablet, 3 mg= 1 tab(s), Oral, Daily Test strips-True Metrix, See Instructions, 2 refills tiZANidine 4 mg Tab, 4 mg= 1 tab(s), Oral, TID, 1 refills traZODONE 50 mg Tab, 50 mg= 1 tab(s), Oral, Once a day (at bedtime) Ubrelvy 100 mg oral tablet verapamil 120 mg ER Tab, 120 mg= 1 tab(s), Oral, Daily Vitamin B Complex oral capsule, 1 tab(s), Oral, Daily Vitamin C Vitamin D Zofran 4 mg Tab, 4 mg= 1 tab(s), Oral, q8hr, PRN Zofran ODT 4 mg Tab-Dis, 4 mg= 1 tab(s), Oral, q8hr, PRN Allergies Dairy (unknown) Eggs (Vomiting) Imitrex (Breathing, Chest tightness, unknown) Latex (Rash, Hives) Latuda (Agitation, Intolerance) Pyridium (Pain) codeine (Childhood) morphine (rash, SOB) penicillin (Childhood) Social History Alcohol - Denies Alcohol Use, 06/01/2019 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 Living situation: Home/Indepe (more content not included)... Normal [facility] Comment on above: Result Comment: Elec tronically Signed By: Mary KURTZ, Daron Johnson\.br\Date and Time Signed: 01/05/24 14:40 EDT Surgical Pathology Reporton 12-26-2023 Surgical Pathology Report [facility] [address] [place] [address]- Surgical Pathology Report Collected Date/Time: 12/21/2023 14:37 EDT Pathologist: Stephan Lopez MD Received Date/Time: 12/22/2023 07:37 EDT Mary KURTZ, Daron Hernandez MD, Daron Farooq Surgical Pathology Report - 12/26/2023 15:33 EDT - Auth (Verified) Final Diagnosis EPIDERMAL CYST, LEFT BREAST, EXCISION: Chronic inflammation with granulation tissue and foreign body granulomatous inflammation consistent with ruptured epidermal cyst. (Electronic Signature) Stephan Lopez MD 12/26/2023 15:33 Clinical Information Left breast epidermal cyst Pre-Op Diagnosis: Left breast epidermal cyst Procedure: Left breast epidermal cyst excision Post-Op Diagnosis: 1 cm left medial breast epidermal cyst Specimen(s) Received Left breast epidermal cyst Gross Description Received in formalin labeled with patient name, number, and left breast epidermal cyst an irregularly shaped fragment of snowden skin light yellow slightly firm granular tissue. The fragment overall measures 2 x 0.5 x 0.5 cm and contains approximately 0.8 cm of light yellow firm granular tissue. The specimen is inked red, serially sectioned, and has a snowden firm granular appearance and is entirely submitted in cassette #1. Also received in the container is a separate fragment of light yellow/snowden/pink firm tissue measuring 1.3 x 1 x 0.7 cm. is inked blue. The specimen is serially sectioned and has a snowden/light yellow firm granular appearance. This is submitted entirely in cassette #2. (DC) DC:[facility] Microscopic Description Microscopic examination performed unless gross only specified. Normal [facility] Comment on above: Performed By: #### 4 [id number] #### [facility] [address] [place] [address] CHEMISTRYOrdered By: Monty ROP User on 12-21-2023 Glucose [Mass/Vol] 95 mg/dL Normal 55 - 99 mg/dL [facility] POC Subsection Comment on above: Result Comment: Nita kacy Meter POC Device SN [id number] 1 Invalid Interpretation Code [facility] POC Subsection POC User ID [id number] 1 Invalid Interpretation Code [facility] POC Subsection POC Username JESSICA KUO Invalid Interpretation Code [facility] POC Subsection XR Chest 2 Viewson XR Chest 2 Views Exam Date/Time: 12/16/2023 11:10 EDT Reason for Exam: P.A.T. Report IMPRESSION: NO EVIDENCE OF ACTIVE CHEST DISEASE. CLINICAL HISTORY: P.A.T.. COMPARISON: 12/31/2021. COMMENT: The heart is normal in size. The mediastinum is unremarkable. There is a right upper lobe nodule, stable in appearance compared to CT scans dated back to 06/09/2017. No infiltration nor pleural effusion is evident. No significant change is noted when compared to the prior exam. Ordering Provider: Chucho Robledo FINAL REPORT Dictated: 12/20/2023 7:49 am Stan Clancy M.D. Signed (Electronic Signature): 12/20/2023 7:49 am Signed by: Stan Clancy M.D. Transcribed by: ABBY Technologist: CLEM Technical Comments Radiation Dose: Ka,r in mGy = na DAP = na Normal [facility] BMPon 12-16-2023 Anion gap [Moles/Vol] 12 mmol/L Normal 6-16 [facility] Comment on above: Performed By: #### 2 [id number] #### [facility] [address] [place] [address] Calcium [Mass/Vol] 8.9 mg/dL Normal 8.9-11.1 [facility] Comment on above: Performed By: #### 2 [id number] #### [facility] [address] [place] [address] Chloride [Moles/Vol] 107 mmol/L Normal 101-111 [place] Comment on above: Performed By: #### 2 [id number] #### [facility] [address] [place] [address] CO2 [Moles/Vol] 25 mmol/L Normal 21-31 [facility] Comment on above: Performed By: #### 2 [id number] #### [facility] [address] [place] [address] Creatinine [Mass/Vol] 0.8 mg/dL Normal 0.5-1.3 [facility] Comment on above: Performed By: #### 2 [id number] #### [facility] [address] [place] [address] Glucose [Mass/Vol] 113 mg/dL Normal 55-199 [facility] Comment on above: Performed By: #### 2 [id number] #### [facility] [address] [place] [address] Potassium [Moles/Vol] 3.5 mmol/L Normal 3.5-5.3 [facility] Comment on above: Performed By: #### 2 [id number] #### [facility] [address] [place] [address] Sodium [Moles/Vol] 140 mmol/L Normal 135-145 [facility] Comment on above: Performed By: #### 2 [id number] #### [facility] [address] [place] [address] Urea nitrogen [Mass/Vol] 9 mg/dL Normal 5-21 [facility] Comment on above: Performed By: #### 2 [id number] #### [facility] [address] [place] [address] Urea nitrogen/Creatinine [Mass ratio] 11 No Units Normal 10-20 [facility] Comment on above: Performed By: #### 2 [id number] #### [facility] [address] [place] [address] CBC w/ Auto Diffon 4 Basophils/100 WBC (Bld) 0.2 % Normal 0.0-2.0 [facility] Comment on above: Performed By: #### 2 [id number] #### [facility] [address] [place] [address] Basophils/Leukocytes Auto (Bld) [Pure # fraction] 0.0 E9/L Normal 0.0-0.2 [facility] Comment on above: Performed By: #### 2 [id number] #### [facility] [address] [place] [address] Eosinophils (Bld) [#/Vol] 0.1 E9/L Normal 0.0-0.5 [facility] Comment on above: Performed By: #### 2 [id number] #### [facility] [address] [place] [address] Eosinophils/100 WBC (Bld) 1.6 % Normal 0.0-8.0 [facility] Comment on above: Performed By: #### 2 [id number] #### [facility] [address] [place] [address] Erythrocyte distribution width (RBC) [Ratio] 14.5 % High 10.9-14.2 [facility] Comment on above: Performed By: #### 2 [id number] #### [facility] [address] [place] [address] Hematocrit (Bld) [Volume fraction] 33.2 % Low 34.0-46.0 [facility] Comment on above: Performed By: #### 2 [id number] #### [facility] [address] [place] [address] Hemoglobin (Bld) [Mass/Vol] 11.5 g/dL Low 12.0-16.0 [facility] Comment on above: Performed By: #### 2 [id number] #### [facility] [address] [place] [address] Lymphocytes (Bld) [#/Vol] 2.6 E9/L Normal 1.0-4.0 [facility] Comment on above: Performed By: #### 2 [id number] #### [facility] [address] [place] [address] Lymphocytes/100 WBC (Bld) 32.1 % Normal 14.0-50.0 [facility] Comment on above: Performed By: #### 2 [id number] #### [facility] [address] [place] [address] MCH (RBC) [Entitic mass] 28.6 pg Normal 27.0-34.0 [facility] Comment on above: Performed By: #### 2 [id number] #### [facility] [address] [place] [address] MCHC (RBC) [Mass/Vol] 34.6 g/dL Normal 31.4-36.0 [facility] Comment on above: Performed By: #### 2 [id number] #### [facility] [address] [place] [address] MCV (RBC) [Entitic vol] 82.7 fL Normal 80.0-100.0 [facility] Comment on above: Performed By: #### 2 [id number] #### [facility] [address] [place] [address] Monocytes (Bld) [#/Vol] 0.5 E9/L Normal 0.2-1.0 [facility] Comment on above: Performed By: #### 2 [id number] #### [facility] [address] [place] [address] Neutrophils (Bld) [#/Vol] 4.8 E9/L Normal 2.0-7.5 [facility] Comment on above: Performed By: #### 2 [id number] #### [facility] [address] [place] [address] Neutrophils/100 WBC (Bld) 60.0 % Normal 36.0-75.0 [facility] Comment on above: Performed By: #### 2 [id number] #### [facility] [address] [place] [address] Platelet 246.0 E9/L Normal 150.0-500.0 [facility] Comment on above: Performed By: #### 2 [id number] #### [facility] [address] [place] [address] Platelet mean volume (Bld) [Entitic vol] 8.5 fL Normal 6.4-10.8 [facility] Comment on above: Performed By: #### 2 [id number] #### [facility] [address] [place] [address] RBC (Bld) [#/Vol] 4.0 E12/L Low 4.3-5.9 [facility] Comment on above: Performed By: #### 2 [id number] #### [facility] [address] [place] [address] WBC corrected for nucl RBC Auto (Bld) [#/Vol] 8.0 E9/L Normal 4.0-11.0 [facility] Comment on above: Performed By: #### 2 [id number] #### [facility] [address] [place] [address] CHEMISTRYOrdered By: SYSTEM SYSTEM on 12-16-2023 Anion gap [Moles/Vol] 12 mmol/L Normal 6 - 16 mEq/L R emisol Chem Calcium [Mass/Vol] 8.9 mg/dL Normal 8.9 - 11. 1 mg/dL [facility] Chloride [Moles/Vol] 107 mmol/L Normal 101 - 1 11 mmol/L [facility] CO2 [Moles/Vol] 25 mmol/L Normal 21 - 31 mmol/L [facility] Creatinine [Mass/Vol] 0.8 mg/dL Normal 0.5 - 1.3 mg/dL [facility] eGFR 96 mL/min/1.73 m2 Normal >=59mL/min /1 .73 m2 [facility] Glucose [Mass/Vol] 113 mg/dL Normal 55 - 199 mg/dL [facility] Potassium [Moles/Vol] 3.5 mmol/L Normal 3.5 - 5.3 mmol/L [facility] Sodium [Moles/Vol] 140 mmol/L Normal 135 - 145 mmol/L [facility] Urea nitrogen [Mass/Vol] 9 mg/dL Normal 5 - 21 mg/dL [facility] Urea nitrogen/Creatinine [Mass ratio] 11 mg/mg Normal 10 - 20 [facility] HEMATOLOGYOrdered By: SYSTEM SYSTEM on 12-16-2023 Basophils/100 WBC (Bld) 0.2 % Normal 0.0 - 2.0 % Remisol Heme Basophils/Leukocytes Auto (Bld) [Pure # fraction] 0.0 E9/L Normal 0.0 - 0.2 E9/L Remisol Heme Eosinophils (Bld) [#/Vol] 0.1 E9/L Normal 0.0 - 0.5 E9/L Remisol Heme Eosinophils/100 WBC (Bld) 1.6 % Normal 0.0 - 8.0 % Remisol Heme Erythrocyte distribution width (RBC) [Ratio] 14.5 % High 10.9 - 14.2 % Remisol Heme Hematocrit (Bld) [Volume fraction] 33.2 % Low 34.0 - 46.0 % Remisol Heme Hemoglobin (Bld) [Mass/Vol] 11.5 g/dL Low 12.0 - 16.0 gm/dL Remisol Heme Lymphocytes (Bld) [#/Vol] 2.6 E9/L Normal 1.0 - 4.0 E9/L Remisol Heme Lymphocytes/100 WBC (Bld) 32.1 % Normal 14.0 - 50.0 % Remisol Heme MCH (RBC) [Entitic mass] 28.6 pg Normal 27.0 - 34.0 pg Remisol Heme MCHC (RBC) [Mass/Vol] 34.6 g/dL Normal 31.4 - 36.0 gm/dL Remisol Heme MCV (RBC) [Entitic vol] 82.7 fL Normal 80.0 - 100.0 fL Remisol Heme Monocytes (Bld) [#/Vol] 0.5 E9/L Normal 0.2 - 1.0 E9/L Remisol Heme Monocytes/100 WBC (Bld) 6.1 % Normal 4.0 - 14.0 % Remisol Heme Neutrophils (Bld) [#/Vol] 4.8 E9/L Normal 2.0 - 7.5 E9/L Remisol Heme Neutrophils/100 WBC (Bld) 60.0 % Normal 36.0 - 75.0 % Remisol Heme Platelet 246.0 E9/L Normal 150.0 - 500.0 E9/L Remisol Heme Platelet mean volume (Bld) [Entitic vol] 8.5 fL Normal 6.4 - 10.8 fL Remisol Heme RBC (Bld) [#/Vol] 4.0 E12/L Low 4.3 - 5.9 E12/L Remisol Heme WBC corrected for nucl RBC Auto (Bld) [#/Vol] 8.0 E9/L Normal 4.0 - 11.0 E9/L Remisol Heme SEROLOGYOrdered By: France Martinez on 12-16-2023 HCG.beta subunit (U) [Moles/Vol] Negative Normal [facility] Man Sero U BetaHcg Qualon 12-16-2023 HCG.beta subunit (U) [Moles/Vol] Negative Normal [facility] Comment on above: Performed By: #### 2 [id number] #### [facility] [address] [place] [address] eGFRon 12-16-2023 eGFR 96 mL/min/1.73 m2 Normal >=59 [facility] Comment on above: Order Comment: Order added by Discern Expert. Performed By: #### 1 [id number] #### [facility] [address] [place] [address] General Surgery Office/Clini c Noteon 12-13-2023 General Surgery Office/Clinic Note General Surgery Office/Clinic Note Chief Complaint 1 week follow up HPI Staff Alma Delia is a 38 y.o. female here for 1 week follow up Patient presented to with breast abscess that had been I/D in the patient's BUILDER OPERATOR office the prior. Antibiotics initiated Today the patient states she is healing well. Last day of antibiotics will be today. History of Present Illness Consent: The patient or their guardian verbally consented to allow Mauro Santizo Tomás to record this visit. Alma Delia Pearl is a 38-year-old female who underwent I and D of infected epidermal cyst overlying the left breast by her BUILDER OPERATOR. She is being seen by us for wound follow-up. The patient reports experiencing some sebaceous drainage from the left breast; however, she notes an overall improvement in her condition. She expresses a desire for the lesion to be excised. Review of Systems ROS - Provider Constitutional: No fever, no sweats, no weight loss. Eyes: No glasses, no blurred vision, no visual loss. ENMT: No dentures, no hoarseness, no swallowing difficulties, no hearing loss, no ear infection(s), no nose bleeds. Cardiovascular: Normal blood pressure, no chest pain, regular heartbeat, no heart murmur. Respiratory: No shortness of breath, no cough, no asthma, no wheezing. Gastrointestinal: No nausea, no vomiting, no diarrhea, no constipation, no blood in stool, no change in bowel habits, no abdominal pain, no hepatitis. Genitourinary: No kidney stones, no urine infection, no dysuria. Musculoskeletal: No pain, no weakness. Skin: No changing moles, no rash, no skin lumps. Neurologic: No seizures, no epilepsy, no headache. Psychiatric: No emotional or psychiatric problem. Heme/Lymph: No bleeding problems, no anemia, no blood clots, no transfusions. Allergy/Immunologic: No swollen lymph nodes/glands, no IV drug abuse. Other: Additional ROS info: Except as noted in the above Review of Systems and in the History of Present Illness, all other systems have been reviewed and are negative or noncontributory. Physical Exam Vitals & Measurements HR: 85(Peripheral) BP: 108/79 HT: 70 in HT: 179 cm WT: 139 kg WT: 305.8 lb BMI: 43.38 Vitals & Measurements General: No acute distress Respiratory: Unlabored breathing on room air Cardiac: Regular rate and rhythm Abdomen: Soft nontender nondistended. Skin: The epidermal cyst overlying the left medial breast near the sternum is improved in appearance with no surrounding erythema or induration. There is scant sebaceous drainage that I am able to express. Assessment/Plan Alma Delia Pearl is a 38-year-old female with now resolving infected epidermal cyst of the skin overlying the left breast. 1. Infected sebaceous cyst (L72.3: Sebaceous cyst) The proposed plan is to excise the infected epidermal cyst under general anesthetic in the operating room. However, the patient expressed a reluctance to proceed with the procedure under local anesthesia, expressing significant anxiety about the procedure. Local infection of the skin and subcutaneous tissue, unspecified (L08.9: Local infection of the skin and subcutaneous tissue, unspecified) Portions of this record may have been created with voice recognition artificial intelligence software, specifically [employer], [employer] and or [employer]. Substitutions may have occurred due to the inherent limitations of voice recognition and artificial intelligence software. ATTESTATION: Documentation services were performed after patient or guardian consented to allow [employer] to record this visit. RAUL seafood specialist and provider reviewed before signing. RAUL: Lance [employer]. Follow-up No qualifying data available Problem List/Past Medical History Ongoing Amenorrhea Bipolar disorder, current episode depressed, moderate BMI 40.0-44.9, adult BMI 45.0-49.9, adult Breast abscess Crohn disease Depression Dysmenorrhea Fibromyalgia Galactorrhea in female GERD (gastroesophageal reflux disease) Hyperlipidemia Infected sebaceous cyst Lumbar back pain with radiculopathy affecting right [...] dosing units, Inhalation, q4hr, PRN, 11 refills Auvelity 45 mg-105 mg oral tablet, extended release Bactrim D.S. 800 mg-160 mg Tab, 1 tab(s), Or (more content not included)... Normal [facility] Comment on above: Result Comment: Elec tronically Signed By: Mary KURTZ, Daron Johnson\.br\Date and Time Signed: 12/13/23 08:54 EDT\.br\Electronically Co-Signed By: Flori Bradford\.br\Date and Time Co-Signed: 12/09/23 12:37 EDT Ambulatory Visit Summaryon 0 12-09-2023 Ambulatory Visit Summary Ambulatory Visit Summary ALMA DELIA PEARL :1985 Visit Date:12/09/2023 Ambulatory Visit Instructions Your Diagnosis Infected sebaceous cyst Local infection of the skin and subcutaneous tissue, unspecified These Are Your Goals Diabetes Mellitus-Improve glucose [...] Interventions: Continue with appointments at [facility] pain clinic. Increase daily exercise Lose weight Take Medications as Prescribed Your Care Team Attending Physician - Daron Hernandez MD Primary Care Physician - Rell FERRER, Irasema [...] extended release) busPIRone (busPIRone 15 mg Tab) cephalexin (Keflex 500 mg Cap) ergocalciferol (Vitamin D) famotidine (Pepcid 20 mg Tab) fluconazole (Diflucan 150 mg Tab) galcanezumab (Emgality Prefilled Pen 120 mg/mL subcutaneous solution) hydrOXYzine (hydrOXYzine pamoate 25 mg Cap) loperamide (Imodium A-D EZ Chews 2 mg oral tablet, chewable) magnesium oxide multivitamin (Multi Vitamin+) multivitamin (Vitamin B Complex oral capsule) naproxen (Naprosyn 500 mg Tab) nystatin topical (nystatin Top 100,000 units/g Crm 15 gram) omeprazole (omeprazole 10 mg Cap-EC) omeprazole (omeprazole 40 mg Cap-DR) ondansetron (Zofran 4 mg Tab) ondansetron (Zofran ODT 4 mg Tab-Dis) pregabalin (pregabalin 25 mg Cap) pregabalin (pregabalin 75 mg Cap) promethazine (Phenergan 12.5 mg Supp) promethazine (Phenergan 25 mg Supp) sulfamethoxazole-tri methoprim (Bactrim D.S. 800 mg-160 mg Tab) tirzepatide (Mounjaro) tizanidine (tiZANidine 4 mg Tab) trazodone (traZODONE 50 mg Tab) ubrogepant (Ubrelvy 100 mg oral tablet) verapamil (verapamil 120 mg ER Tab) Procedures Performed Colonoscopy (02/01/2018), EGD & Colonoscopy (06/01/2016), EGD & Colooscopy (07/31/2014), Colonoscopy (04/28/2012), Colonoscopy, Decompression of lumbar spine, laproscopy x3, Tonsillectomy. Discharge Vitals Heart Rate (Peripheral) 85 Blood Pressure 108/79 Height 179 cm Height 70 in Weight 139 kg Weight 305.8 lb BMI 43.38 What to do next Scheduled Follow-Up Appointments Tuesday 10:30 AM EDT With: Where: [facility] Tuesday 2:00 PM EDT With: Where: [facility] Tuesday 10:00 AM EDT With: KYUNG PAUL PA-C Where: [facility] [address], [address] [place] [address]- Tuesday 8:00 AM EDT With: Where: [facility] [address], [place] [address]- Medications What How Much When Why Instructions Unchanged albuterol (Albuterol (Eqv-ProAir HFA) 90 mcg/ inh inhalation aerosol) 2 Puffs Inhalation Every 6 hours Mild intermittent asthma Unchanged albuterol (albuterol 0.083% Inh Padma 3 mL) 0.083% - 3mL dosing units Inhalation Every 4 hours as needed for Wheezing Unchanged ascorbic acid (Vitamin C) Unchanged brexpiprazole (Rexulti 1 mg oral tablet) Unchanged brexpiprazole (Rexulti 3 mg oral tablet) Unchanged buPROPion (buPROPion 100 mg ER Tab) 1 Unknown Unchanged bupropion-dextrometh orphan (Auvelity 45 mg-105 mg oral tablet, extended release) Unchanged busPIRone (busPIRone 15 mg Tab) TAKE 1 TABLET BY MOUTH THREE TIMES DAILY Unchanged cephalexin (Keflex 500 mg Cap) 1 Capsules By Mouth 3 times a day Duration: 10 Days Unchanged ergocalciferol (Vitamin D) Unchanged famotidine (Pepcid 20 mg Tab) 1 Tablets By Mouth Every day Unchanged fluconazole (Diflucan 150 mg Tab) 1 Tablets By Mouth Once BMI 45.0-49.9, adult Morbid obesity Sore throat Yeast infection 1 tab when antibiotic starts, and 1 tab at the completion of the antibiotic Unchanged galcanezumab (Emgality Prefilled Pen 120 mg/ mL subcutaneous solution) ADMINISTER 1 ML UNDER THE SKIN MONTHLY Unchanged hydrOXYzine (hydrOXYzine pamoate 25 mg Cap) TAKE 1 CAPSULE BY MOUTH EVERY 6 HOURS NEEDED FOR ANXIE (more content not included)... 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 female here for breast abscess Patient presented to [facility] on 11/29/23 with L breast abscess Currently taking Keflex and Bactrim and Flagyl (for BV) Today she states she has drainage. She saw BUILDER OPERATOR yesterday and I/D'd in office History of Present Illness Consent: The patient or their guardian verbally consented to allow Mauro England to record this visit. Alma Delia Pearl is a 38-year-old female who was referred to us for left breast abscess status post I & D by field operator on 12/01/2023. The patient has been faring well, however, she has observed some drainage since the procedure. Review of Systems Constitutional: No fever, no sweats, no weight loss. Eyes: No glasses, no blurred vision, no visual loss. ENMT: No dentures, no hoarseness, no swallowing difficulties, no hearing loss, no ear infection(s), no nose bleeds. Cardiovascular: Normal blood pressure, no chest pain, regular heartbeat, no heart murmur. Respiratory: No shortness of breath, no cough, no asthma, no wheezing. Gastrointestinal: No nausea, no vomiting, no diarrhea, no constipation, no blood in stool, no change in bowel habits, no abdominal pain, no hepatitis. Genitourinary: No kidney stones, no urine infection, no dysuria. Musculoskeletal: No pain, no weakness. Skin: No changing moles, no rash, no skin lumps. Neurologic: No seizures, no epilepsy, no headache. Psychiatric: No emotional or psychiatric problem. Heme/Lymph: No bleeding problems, no anemia, no blood clots, no transfusions. Allergy/Immunologic: No swollen lymph nodes/glands, no IV drug abuse. Other: Additional ROS info: Except as noted in the above Review of Systems and in the History of Present Illness, all other systems have been reviewed and are negative or noncontributory. Physical Exam Vitals & Measurements T: 36.7 ?C(Oral) HR: 78(Peripheral) BP: 100/69 HT: 70 in HT: 179 cm WT: 139 kg WT: 305.8 lb BMI: 43.38 General: No acute distress Respiratory: Unlabored breathing on room air Cardiac: Regular rate and rhythm Abdomen: Soft nontender nondistended Skin: Upon examination, an I & D site was observed on the left medial upper inner breast. There does not appear to be any more fluid drainable. However, surrounding cellulitis is still present. Assessment/Plan 1. Breast abscess (N61.1: Abscess of the breast and nipple) The patient has been initiated on antibiotics. 2. BMI 40.0-44.9, adult (Z68.41: Body mass index [BMI] 40.0-44.9, adult) 3. Morbid obesity (E66.01: Morbid (severe) obesity due to excess calories) Portions of this record may have been created with voice recognition artificial intelligence software, specifically [employer], [employer] and or [employer]. Substitutions may have occurred due to the inherent limitations of voice recognition and artificial intelligence software. ATTESTATION: Documentation services were performed after patient or guardian consented to allow [employer] to record this visit. RAUL seafood specialist and provider reviewed before signing. RAUL: Bernardino Alatorre. Follow-up No qualifying data available A follow-up appointment is scheduled in 1 week for a wound check. Problem List/Past Medical History Ongoing Amenorrhea Bipolar disorder, current episode depressed, moderate BMI 40.0-44.9, adult BMI 45.0-49.9, adult Breast abscess Crohn disease Depression Dysmenorrhea Fibromyalgia Galactorrhea in [...] dosing units, Inhalation, q4hr, PRN, 11 refills Auvelity 45 mg-105 mg oral tablet, extended release Bactrim D.S. 800 mg-160 mg Tab, 1 tab(s), Oral, BID buPROPion 100 mg ER Tab busPIRone 15 mg Tab clindamycin 300 mg oral cap, 300 mg= 1 cap(s), Oral, q6hr Diflucan 150 mg Tab, 150 mg= 1 tab(s), Oral, Once, 1 refills Emgality Prefilled Pen 120 mg/mL subcutaneous solution hydrOXYzine pamoate 25 mg Cap Imodium A-D EZ Chews 2 mg oral tablet, chewable, 2 mg= 1 tab(s), Chewed, q4hr, PRN Keflex 500 mg Cap, 500 mg= 1 cap(s), Oral, TID lancets, See Instructions, 3 refills magnesiu (more content not included)... Normal [facility] Comment on above: Result Comment: Elec tronically Signed By: Daron Hernandez MD\.br\Date and Time Signed: 12/05/23 09:39 EDT\.br\Electronically Co-Signed By: Manda Walker\.br\Date and Time Co-Signed: 12/02/23 11:29 EDT ED Clinical Summaryon 2023 ED Clinical Summary ED Clinical Summary [place] [id number] ED Clinical Summary Person Information Name: ALMA DELIA PEARL [facility] Age: 38 Years : 1985 Sex: Female Language: Honduran PCP: Irasema Love Marital Status: Phone: [phone] MRN: [id number] Visit Id: Visit Reason: Breast problem; BREAST [...] 11/29/2023 20:59:57 11/29/2023 20:59:57 11/29/2023 20:59:57 ADDRESS: [address] [place] [address] [phone] PHYS DOC NOTES: MEDICAL INFORMATION: Prescriptions Given: New Medications [facility] #[id number], [address] [place] [address] [phone], [phone] cephalexin (Keflex 500 mg Cap) 1 Capsules [...] with No Changes Other Medications acetaminophen-hydroc odone ([place] 325 mg-5 mg oral tablet) 1 Tablets [...] 0. PATIENT EDUCATION INFORMATION: Instructions: Cellulitis, Adult, Vedh-lb-Clfu Follow up: With: Address: When: Irasema Zacarias [address] [facility] [address] [place] [phone] [facility] (1[facility] In 3 days 12/02/2023 Comments: Stop the clindamycin and start the Bactrim and Keflex. He can use naproxen every 12 hours as needed for pain in addition to pain medicine impression prescribed last night. Please follow-up with your primary care doctor for further evaluation management. Please return to the ED for any new or worsening symptoms. DIAGNOSIS: Cellulitis of left breast Normal [facility] ED Note-Physicianon 11-29-19 ED Note-Physician ED [...] and Complexity of Problems Differential Diagnosis: [] [facility] Data External documents reviewed: [] My EKG [...] day(s), # 30 cap(s), Refills(s) 0, Pharmacy: [facility] #[id number], 175, cm, 11/29/23 20:31:00 EDT, Height/Length Dosing, [...] pain, # 20 tab(s), Refills(s) 0, Pharmacy: [facility] #[id number], 175, cm, 11/29/23 20:31:00 EDT, Height/Length Dosing, 139, kg, 11/29/23 20:31:00 EDT, Weight Dosing sulfamethoxazole-tri methoprim, 1 tab(s), Oral, BID, 20 tab(s), Refill(s) 0, [facility] #[id number], 175, cm, 11/29/23 20:31:00 EDT, Height/Length Dosing, [...] PRN Follow-up With When Contact Information Irasema Rell In 3 days 12/02/2023 EDT [address] [facility], [address] [place] [phone] Business (1) Additional Instructions: Stop the clindamycin and start the Bactrim and Keflex. He can use naproxen every 12 hours as needed for pain in addition to pain medicine impression prescribed last night. Please follow-up with your primary care doctor for further evaluation management. Please return to the ED for any new or worsening symptoms. Patient Education Cellulitis, Adult, Hkrs-uu-Jkjp Problem List/Past Medical History Ongoing Amenorrhea Anxiety Bipolar disorder, current episode depressed, moderate BMI 45.0-49.9, adult Crohn disease Depression Dysmenorrhea Fibromyalgia Galactorrhea in female GERD (gastroesophageal reflux disease) Hyperlipidemia Lumbar back pain (more content not included)... Normal [facility] Comment on above: Result Comment: Elec tronically Signed By: Celena Dias DO\.carlota\Date and Time Signed: 11/29/23 20:44 EDT ED [...] and Complexity of Problems Differential Diagnosis: [] [facility] Data External documents reviewed: [] My EKG [...] for 2 day(s), 8 tab(s), Refill(s) 0, [facility] #[id number], 175, cm, 11/28/23 19:12:00 EDT, Height/Length Dosing, 139, kg, 11/28/23 19:12:00 EDT, Weight Dosing clindamycin, 300 mg = 1 cap(s), Oral, q6hr, X 7 day(s), # 28 cap(s), Refills(s) 0, Pharmacy: [facility] #[id number], 175, cm, 11/28/23 19:12:00 EDT, Height/Length Dosing, [...] cap, 300 mg= 1 cap(s), Oral, q6hr [place] 325 mg-5 mg oral tablet, 1 tab(s), Oral, q6hr, PRN Follow-up With When Contact Information Daron Hernnadez In 3 days 12/01/2023 EDT Additional Instructions: Call Dr for diagnosis based follow up [facility] In (more content not included)... Normal [facility] Comment on above: Result Comment: Elec tronically Signed By: Luis Almanza PA-C\.br\Date and Time Signed: 11/29/23 00:34 EDT\.br\Electronically Co-Signed By: Celena Dias DO\.br\Date and Time Co-Signed: 11/29/23 01:44 EDT ED Patient Summaryon 024 ED Patient Summary ED Patient Summary [place] [id number] Patient Discharge Instructions Person Information Name: ALMA DELIA PEARL Age: 38 Years Arrival Date: 11/29/2023 20:00:57 Discharge Diagnosis: Cellulitis of left breast Primary Care Physician: Irasema Love Provider Information Primary Provider: Celena Dias DO Advanced Recruiting Coordinator:None The exam and treatment you received in the Emergency Department were for an urgent problem and are not intended as complete care. It is important that you follow up with a doctor, nurse practitioner, or physician?s certified anesthesiologist assistant for ongoing care. If your symptoms [...] instructions: Follow-up Instructions: With: Address: When: Irasema Zacarias [address], [place] [address] Business (1) In 3 days 12/02/2023 Comments: [...] participating provider. Patient Education Materials: Cellulitis, Adult, Snzt-nf-Nqgw A MESSAGE TO ALL PATIENTS REGARDING OPIOIDS PRESCRIPTION OPIOIDS: WHAT YOU NEED TO KNOW Prescription opioids can be used to help relieve geqtugbw-pw-tglgxk pain and are often prescribed following a [...] toilet, follow (more content not included)... Normal [facility] ED Clinical Summaryon 2023 ED Clinical Summary ED Clinical Summary [place] [id number] ED Clinical Summary Person Information Name: ALMA DELIA PEARL [facility] Age: 38 Years : 1985 Sex: Female Language: Honduran PCP: Irasema Love Marital Status: Phone: [phone] MRN: Visit Id: Visit Reason: Breast problem; [...] 11/28/2023 21:00:35 11/28/2023 21:00:35 11/28/2023 21:00:35 ADDRESS: [address] [place] [address] [phone] PHYS DOC NOTES: MEDICAL INFORMATION: Prescriptions Given: [id number], [address] [place], [place] [phone], [phone] acetaminophen-hydroc odone ([place] 325 mg-5 mg oral tablet) 1 Tablets [...] day. pregab (more content not included)... Normal [facility] ED Patient Summaryon 024 ED Patient Summary ED Patient Summary [place] [id number] Patient Discharge Instructions Person Information Name: ALMA DELIA PEARL Age: 38 Years Arrival Date: 11/28/2023 19:04:11 Discharge Diagnosis: Breast abscess Primary Care Physician: Irasema Love Provider Information Primary Provider: Celena Dias DO Advanced Recruiting Coordinator:None The exam and treatment you received in the Emergency Department were for an urgent problem and are not intended as complete care. It is important that you follow up with a doctor, nurse practitioner, or physician?s certified anesthesiologist assistant for ongoing care. If your symptoms [...] up With: Address: When: [facility] [address], [address], [employer] [address] [place] [address] Business (1) In 3 days 12/01/2023 Comments: Call Dr for diagnosis based follow up With: Address: When: Irasema Rell [address] [place] [address] [facility] (1) In 3 days 12/01/2023 Comments: Call Dr for diagnosis based follow up In the event that this physician does not participate in your insurance network, please consult with your insurance company to find a nearby participating provider. Patient Education Materials: Skin Abscess; Cellulitis, Adult, Hhvi-ay-Cdip A MESSAGE TO ALL PATIENTS REGARDING OPIOIDS PRESCRIPTION OPIOIDS: WHAT YOU NEED TO KNOW Prescription opioids can be used to help relieve vkyttoiv-jy-gpbqfj pain and are often prescribed following a [...] program, o (more content not included)... Normal [facility] Family Medicine Office/Clini c Noteon 09-24-2023 [...] of clutter to prevent tripping and/or falling. [place] Advance Directives reviewed. Encouraged to complete documents [...] Prediabetes (R73.03: Prediabetes) Following with Endocrinology at [facility]. Discussed ADA dietary recommendations. Encouraged to [...] episode depresse (more content not included)... Normal [facility] Comment on above: Result Comment: Elec [...] Interventions: Continue with appointments at [facility] pain clinic. Increase daily exercise Lose weight [...] Appointments Tuesday. 2024 8:00 AM EDT Where: [facility] Primary Care [facility] Patient Educationon 09-22-19 Patient Education Endocrinology [...] Carrots. Green beans. Tomatoes. Peppers. Onions. Cucumbers. [place]field sprouts. Grains Whole grains, such as whole-wheat or whole-grain bread, crackers, tortillas, cereal, and pasta. Unsweetened oatmeal. (more content not included)... [facility] Population [facility] 09-22-19 [facility] [id number] #1.00TIFF Normal [facility] ED Note-Physicianon 08-07-19 ED Note-Physician Basic [...] and Complexity of Problems Differential Diagnosis: [] [facility] Data External documents reviewed: [] My EKG [...] day(s), # 28 tab(s), Refills(s) 0, Pharmacy: [facility] #[id number], 173, cm, 07/25/23 18:35:00 EDT, Height/Length Dosing, [...] Brown In 3 days 07/28/2023 EDT [address] [facility], [address] [phone] Business (1) Additional Instructions: Call Dr for diagnosis bas (more content not included)... Normal [facility] Comment on above: Result Comment: Elec [...] 300 Contrast amount in ml's: 100 Normal [facility] ABO/Rhon 07-25-2023 ABO/Rh Positive Invalid Interpretation Code [facility] Comment on above: Performed By: #### 2 655455 ####[facility] [address] [place] [address] B hCG Qualon 07-25-2023 Beta HCG ( test) Ql Negative Normal [facility] Comment on above: Performed By: #### 2 770069, 10475935, 1735557, 5661153, 25502744, 3833038 ####[facility] [address] [place] [address] BLOOD BANKOrdered By: Clarence Swift on 07-25-2023 ABO/Rh Interp Positive Invalid Interpretation Code [facility] BB Subsection BMPon 07-25-2023 Anion gap [Moles/Vol] 13 mmol/L Normal 6-16 [facility] Comment on above: Performed By: #### 2 813582, 54091852, 1909773, 0444032, 56758583, 2526762 ####[facility] [address] [place] [address] Calcium [Mass/Vol] 9.1 mg/dL Normal 8.9-11.1 [facility] Comment on above: Performed By: #### 2 592554, 56667602, 4047564, 5937805, 84220677, 0396800 ####[facility] [address] [place] [address] Chloride [Moles/Vol] 107 mmol/L Normal 101-111 [facility] Comment on above: Performed By: #### 2 984328, 43282640, 6215120, 0986072, 62000753, 3812525 ####[facility] [address] [place] [address] CO2 [Moles/Vol] 24 mmol/L Normal 21-31 [facility] Comment on above: Performed By: #### 2 274598, 74556425, 7580814, 6173717, 60385397, 1979632 ####[facility] [address] [place] [address] Creatinine [Mass/Vol] 0.9 mg/dL Normal 0.5-1.3 [facility] Comment on above: Performed By: #### 2 172878, 07328401, 8434115, 7984901, 96343658, 2555528 ####[facility] [address] [place] [address] Glucose [Mass/Vol] 120 mg/dL Normal 55-199 [facility] Comment on above: Performed By: #### 2 256494, 12036480, 4425313, 1892733, 59348014, 4232845 ####[facility] [address] [place] [address] Potassium [Moles/Vol] 3.8 mmol/L Normal 3.5-5.3 [facility] Comment on above: Performed By: #### 2 585903, 67770623, 4921119, 1035008, 19752901, 0445418 ####[facility] [address] [place] [address] Sodium [Moles/Vol] 140 mmol/L Normal 135-145 [facility] Comment on above: Performed By: #### 2 702411, 11812839, 3989043, 6578711, 77956624, 7325012 ####[facility] [address] [place] [address] Urea nitrogen [Mass/Vol] 15 mg/dL Normal 5-21 [facility] Comment on above: Performed By: #### 2 823204, 66550926, 4641205, 2763798, 19409938, 2061657 ####[facility] [address] [place] [address] Urea nitrogen/Creatinine [Mass ratio] 17 No Units Normal 10-20 [facility] Comment on above: Performed By: #### 2 063635, 94122144, 0736202, 2607815, 54607790, 3083216 ####[address] [address] CBC w/ Auto Diffon 4 Basophils/100 WBC (Bld) 1.0 % Normal 0.0-2.0 [facility] Comment on above: Performed By: #### 2 899661, 77333631, 8329548, 8541528, 95305055, 7332468 ####[address] [address] Basophils/Leukocytes Auto (Bld) [Pure # fraction] 0.1 E9/L Normal 0.0-0.2 [facility] Comment on above: Performed By: #### 2 541080, 06920194, 8450371, 7281790, 92123407, 0701208 ####[address] [address] Eosinophils (Bld) [#/Vol] 0.2 E9/L Normal 0.0-0.5 [facility] Comment on above: Performed By: #### 2 953402, 51222263, 8586173, 9232145, 43592370, 3345969 ####[address] [address] Eosinophils/100 WBC (Bld) 2.3 % Normal 0.0-8.0 [facility] Comment on above: Performed By: #### 2 424605, 60312977, 6640561, 8627409, 51283984, 0407329 ####[address] [address] Erythrocyte distribution width (RBC) [Ratio] 13.3 % Normal 10.9-14.2 [facility] Comment on above: Performed By: #### 2 395396, 93206081, 4653893, 4085652, 46146338, 1654952 ####[address] [address] Hematocrit (Bld) [Volume fraction] 34.5 % Normal 34.0-46.0 [facility] Comment on above: Performed By: #### 2 829050, 22595672, 1367182, 0292845, 44030494, 2486917 ####[facility] [address] [place] [address] Hemoglobin (Bld) [Mass/Vol] 11.6 g/dL Low 12.0-16.0 [facility] Comment on above: Performed By: #### 2 060511, 55853435, 6923822, 1830565, 17059401, 7089491 ####[address] [address] Lymphocytes (Bld) [#/Vol] 3.4 E9/L Normal 1.0-4.0 [facility] Comment on above: Performed By: #### 2 606696, 20716306, 5805876, 1897422, 87323965, 2185888 ####[address] [address] Lymphocytes/100 WBC (Bld) 33.6 % Normal 14.0-50.0 [facility] Comment on above: Performed By: #### 2 036535, 68627652, 6501282, 9978276, 26772777, 1030397 ####[address] [address] MCH (RBC) [Entitic mass] 27.7 pg Normal 27.0-34.0 [facility] Comment on above: Performed By: #### 2 059768, 90601286, 1660224, 0887832, 45900188, 3112520 ####[address] [address] MCHC (RBC) [Mass/Vol] 33.6 g/dL Normal 31.4-36.0 [facility] Comment on above: Performed By: #### 2 382659, 04696781, 7933538, 5050047, 26338729, 8856725 ####[address] [address] MCV (RBC) [Entitic vol] 82.5 fL Normal 80.0-100.0 [facility] Comment on above: Performed By: #### 2 716534, 72804997, 4021013, 6994519, 97860964, 9097028 ####[address] [address] Monocytes (Bld) [#/Vol] 0.6 E9/L Normal 0.2-1.0 [facility] Comment on above: Performed By: #### 2 401271, 24862033, 5568305, 4878165, 19616899, 2619186 ####[address] [address] Neutrophils (Bld) [#/Vol] 5.7 E9/L Normal 2.0-7.5 [facility] Comment on above: Performed By: #### 2 775602, 07130365, 9335240, 3412213, 51715176, 4924883 ####[address] [address] Neutrophils/100 WBC (Bld) 56.8 % Normal 36.0-75.0 [facility] Comment on above: Performed By: #### 2 006565, 69140825, 8610513, 2973313, 87688673, 8263568 ####[address] [address] Platelet 242.0 E9/L Normal 150.0-500.0 [facility] Comment on above: Performed By: #### 2 728453, 07331308, 9369623, 7131042, 62892430, 7047824 ####[address] [address] Platelet mean volume (Bld) [Entitic vol] 8.3 fL Normal 6.4-10.8 [facility] Comment on above: Performed By: #### 2 834716, 98031182, 6488807, 8301286, 92991971, 3953412 ####[facility] [address] [place] [address] RBC (Bld) [#/Vol] 4.2 E12/L Low 4.3-5.9 [facility] Comment on above: Performed By: #### 2 158561, 54415832, 1738615, 8103668, 69999368, 0225784 ####[facility] [address] [place] [address] WBC corrected for nucl RBC Auto (Bld) [#/Vol] 10.1 E9/L Normal 4.0-11.0 [facility] Comment on above: Performed By: #### 2 803136, 93844179, 5233163, 1754029, 12065030, 1959661 ####[facility] [address] [place] [address] CHEMISTRYOrdered By: SYSTEM SYSTEM on 07-25-2023 Albumin [...] Chem eGFR 84 mL/min/1.73 m2 Normal >=59mL/min /1 .73 m2 Remisol Chem Globulin (S) [Mass/Vol] 2.7 [...] Treatmenton 07-07 Consent for Treatment [id number] #1.00TIFF Normal [facility] Discharge Instructionson Discharge Instructions [id number] 0#1.00TIFF Normal [facility] ED Clinical Summaryon 2023 ED Clinical Summary [address] [address] ED Clinical Summary Person Information Name: ALMA DELIA PEARL [facility] Age: 38 Years : 1985 Sex: Female Language: Honduran PCP: Irasema Love Marital Status: Visit Id: Visit Reason: Nausea; Rectal bleed; [...] 07/25/2023 21:40:17 07/25/2023 21:40:17 07/25/2023 21:40:17 ADDRESS: [address] [place] [address] [phone] PHYS DOC NOTES: MEDICAL INFORMATION: Prescriptions Given: New Medications [facility][id number], [address] [place], [place] [id number], [phone] metoclopramide (Reglan 5 mg Tab) 1 Tablets [...] needed Nausea/Vomiti (more content not included)... Normal [facility] ED Patient Education Noteon 07-25-2023 ED [...] ? Low-calorie sports drinks. ? Eat bland, wfmq-ig-twwfzl foods in small amounts as you are able, such as: ? Bananas. ? Applesauce. ? Rice. ? Low-fat (lean) meats. ? Kennett. ? Crackers. ? Avoid drinking fluids that have a lot of sugar or caffeine in them. This includes energy drinks, sports drinks, and soda. ? Avoid alcohol. ? Avoid spicy or fatty foods. General instructions ? 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 ? Make sure that everyone in your [...] drink what your doctor tells you. Take jxsi-moc-abyjybi and prescription medicines only as told by [...] provider. Document Revised: 10/30/2021 Document Reviewed: 10/30/2021 Elsevier Patient Education ? 2022 [employer]. Rectal Bleeding Rectal bleeding is when blood [...] are condition (more content not included)... Normal [facility] ED Patient Summaryon ED Patient Summary [place] [id number] Patient Discharge Instructions Person Information Name: ALMA DELIA PEARL Age: 38 Years Arrival Date: 07/25/2023 18:17:29 Discharge Diagnosis: Nausea; Rectal bleeding Primary Care Physician: Irasema Love Provider Information Primary Provider: Daron George DO Advanced Recruiting Coordinator:Jeronimo The exam and treatment you received in the Emergency Department were for an urgent problem and are not intended as complete care. It is important that you follow up with a doctor, nurse practitioner, or physician?s certified anesthesiologist assistant for ongoing care. If your symptoms [...] Follow-up Instructions: With: Address: When: Marilia Brown [address], [address], [address] [phone] Business (1) In 3 days 07/28/2023 Comments: Call Dr for diagnosis based follow up With: Address: When: Irasema Zacarias [address], [place] [address] Business (1) In 3 days In the event that this physician does not participate in your insurance network, please consult with your insurance company to find a nearby participating provider. Patient Education Materials: Nausea, Adult, Iogt-ud-Dteh; Rectal Bleeding A MESSAGE TO ALL PATIENTS REGARDING OPIOIDS PRESCRIPTION OPIOIDS: WHAT YOU NEED TO KNOW Prescription opioids can be used to help relieve zzivewyj-as-ojffxk pain and are often prescribed following a [...] of op (more content not included)... Normal [facility] HEMATOLOGYOrdered By: SYSTEM SYSTEM on 07-25-2023 [...] 07-25-2023 Albumin [Mass/Vol] 4.5 g/dL Normal 3.3-5.0 [facility] Comment on above: Performed By: #### 2 252097, 49455159, 0913284, 6610806, 37863885, 7404140 ####[facility] [address] [place] [address] Albumin/Globulin (S) [Mass conc ratio] 1.7 Normal 1.1-2.2 [facility] Comment on above: Performed By: #### 2 567024, 87641718, 9036367, 3451512, 18418880, 9258318 ####[facility] [address] [place] [address] ALP [Catalytic activity/Vol] 60 Int._Unit/L Normal 21-98 [facility] Comment on above: Performed By: #### 2 943124, 46749332, 3009882, 1338138, 23284031, 2787365 ####[facility] [address] [place] [address] ALT No additional P-5'-P [Catalytic activity/Vol] 14 Int._Unit/L Normal 6-46 [facility] Comment on above: Performed By: #### 2 726355, 51612817, 6438396, 2346740, 11023487, 0746820 ####[facility] [address] [place] [address] AST [Catalytic activity/Vol] 12 Int._Unit/L Normal 5-43 [facility] Comment on above: Performed By: #### 2 964748, 46929881, 0834188, 6521638, 48835585, 2529084 ####[facility] [address] [place], [place] [address] Bilirubin [Mass/Vol] 0.2 mg/dL Normal 0.0-1.1 [place] Comment on above: Performed By: #### 2 883649, 92242826, 3819268, 9847682, 55247517, 8419802 ####[facility] [address] [place], [place] [address] Bilirubin.direct [Mass/Vol] 0.0 mg/dL Normal 0.0-0.4 [facility] Comment on above: Performed By: #### 2 625387, 07191782, 2687253, 6932608, 02114441, 5603371 ####[facility] [address] [place] [address] Bilirubin.indirect [Mass or moles/Vol] 0.2 mg/dL Normal 0.1-0.9 [facility] Comment on above: Performed By: #### 2 291694, 32125422, 3880960, 5623844, 74427079, 4549756 ####[facility] [address] [place] [address] Globulin (S) [Mass/Vol] 2.7 g/dL Normal 1.4-4.0 [facility] Comment on above: Performed By: #### 2 639156, 37335171, 9011428, 5416952, 26437880, 3853729 ####[facility] [address] [place] [address] Protein [Mass/Vol] 7.2 g/dL Normal 6.0-7.8 [facility] Comment on above: Performed By: #### 2 157325, 61343276, 9057081, 3722286, 66655078, 3978798 ####[facility] [address] [place] [address] Lipase Levelon 07-25-2023 Lipase [Catalytic activity/Vol] 34 U/L Normal 13-58 [facility] Comment on above: Performed By: #### 2 775822, 64523619, 2132333, 5263849, 68140877, 8775272 ####[facility] [address] [place] [address] RAD - Preliminary Cat Scan R eporton 07-25-2023 RAD - Preliminary Cat Scan Report [id number] 9#1.00TIFF Normal [facility] SEROLOGYOrdered By: France Martinez on 07-25-2023 Beta HCG ( test) Ql Negative (07/25/23 7:12 PM) Normal [facility] Man Sero eGFRon 07-25-2023 eGFR 84 mL/min/1.73 m2 Normal >=59 [facility] Comment on above: Order Comment: Order added by Dis[employer] Expert. Performed By: #### 2 [id number], [id number], [id number], [id number], [id number], [id number] ####[facility] [address] [place] [address] Consultation Noteon 07-07-19 Consultation Note [id number]# 1.00TIFF Normal [facility] 25(OH)D3 SerPl-mCncon 2023 25-hydroxyvitamin D3 [Mass/Vol] 20.6 ng/mL Low 31.0-80.0 [facility] Comment on above: Order Comment: Speci men Type: BLOOD SPECIMEN Ordering Facility: [facility] Address: [address] [place] [address] Performed By: #### 1 989-3 #### [facility] CLIA [id number] [address] [place], [place] [address] [address] OF [facility] Comprehensive metabolic 2000 panelon 07-06-2023 Albumin [Mass/Vol] 4.6 g/dL Normal 3.9-4.9 [facility] Comment on above: Order Comment: Speci men Type: BLOOD SPECIMEN Ordering Facility: [facility] Address: [address] [place] [address] Performed By: #### 2 4323-8 #### [facility] CLIA [id number] [address] [place] [address] ALP [Catalytic activity/Vol] 70 U/L Normal 34-123 [facility] Comment on above: Order Comment: Speci men Type: BLOOD SPECIMEN Ordering Facility: [facility] Address: [address] [place] [address] Performed By: #### 2 4323-8 #### [facility] CLIA [id number] [address] [place] [address] ALT [Catalytic activity/Vol] 15 U/L Normal 7-38 [facility] Comment on above: Order Comment: Speci men Type: BLOOD SPECIMEN Ordering Facility: [facility] Address: [address] [place] [address] Performed By: #### 2 4323-8 #### [facility] CLIA [id number] [address] [place] [address] Anion gap [Moles/Vol] 12 mmol/L Normal 9-18 [facility] Comment on above: Order Comment: Speci men Type: BLOOD SPECIMEN Ordering Facility: [facility] Address: [address] [place] [address] Performed By: #### 2 4323-8 #### [facility] CLIA [id number] [address] [place] [address] AST [Catalytic activity/Vol] 14 U/L Normal 13-35 [facility] Comment on above: Order Comment: Speci men Type: BLOOD SPECIMEN Ordering Facility: [facility] Address: [address] [place] [address] Performed By: #### 2 4323-8 #### [facility] CLIA [id number] [address] [place] [address] Bilirubin [Mass/Vol] 0.3 mg/dL Normal 0.2-1.3 [facility] Comment on above: Order Comment: Speci men Type: BLOOD SPECIMEN Ordering Facility: [facility] Address: [address] [place] [address] Performed By: #### 2 4323-8 #### [facility] CLIA [id number] [address] [place] [address]690 Calcium [Mass/Vol] 10.0 mg/dL Normal 8.5-10.2 [facility] Comment on above: Order Comment: Speci men Type: BLOOD SPECIMEN Ordering Facility: [facility] Address: [address] [place] [address] Performed By: #### 2 4323-8 #### [facility] CLIA [id number] [address] [place] [address] Chloride [Moles/Vol] 106 mmol/L High 97-105 [facility] Comment on above: Order Comment: Speci men Type: BLOOD SPECIMEN Ordering Facility: [facility] Address: [address] [place] [address] Performed By: #### 2 4323-8 #### [facility] CLIA [id number] [address] [place] [address] CO2 [Moles/Vol] 24 mmol/L Normal 22-30 [facility] Comment on above: Order Comment: Speci men Type: BLOOD SPECIMEN Ordering Facility: [facility] Address: [address] [place] [address] Performed By: #### 2 4323-8 #### [facility] CLIA [id number] [address] [place] [address] Creatinine [Mass/Vol] 0.90 mg/dL Normal 0.58-0.96 [facility] Comment on above: Order Comment: Dale men Type: BLOOD SPECIMEN Ordering Facility: [facility] Address: [address] [id number] Performed By: #### 2 4323-8 #### [facility] CLIA [id number] [address] [place] [address] Creatinine and Glomerular filtration rate.predicted panel (S/P/Bld) 84 mL/min/1.73m??? Normal >=60 [facility] Comment on above: Order Comment: Dale lyle Type: BLOOD SPECIMEN Ordering Facility: [facility] Address: [address] [place] [address] Result Comment: Norma mated Glomerular Filtration Rate [...] GFR. Performed By: #### 2 4323-8 #### [facility] CLIA [id number] [address] [place] [address] Glucose [Mass/Vol] 118 mg/dL High 74-99 [facility] Comment on above: Order Comment: Deenai valdo Type: BLOOD SPECIMEN Ordering Facility: [facility] Address: [address] [id number] Result Comment: The [place] Diabetes Association (ADA) provides guidance for cutoff [...] Standards of Medical Care in Diabetes 2016, [place] Diabetes Association. Diabetes Care. 2016.39(Suppl 1). Performed By: #### 2 4323-8 #### [facility] CLIA [id number] [address] [place] [address] Potassium [Moles/Vol] 4.2 mmol/L Normal 3.7-5.1 [facility] Comment on above: Order Comment: Speci men Type: BLOOD SPECIMEN Ordering Facility: [facility] Address: [address] [place] [address] Performed By: #### 2 4323-8 #### [facility] CLIA [id number] [address] [place] [address] Protein [Mass/Vol] 7.5 g/dL Normal 6.3-8.0 [facility] Comment on above: Order Comment: Speci men Type: BLOOD SPECIMEN Ordering Facility: [facility] Address: [address] [place] [address] Performed By: #### 2 4323-8 #### [facility] CLIA [id number] [address] [place] [address]44 Sodium [Moles/Vol] 142 mmol/L Normal 136-144 [facility] Comment on above: Order Comment: Speci men Type: BLOOD SPECIMEN Ordering Facility: [facility] Address: [address] [place] [address] Performed By: #### 2 4323-8 #### [facility] CLIA [id number] [address] [place] [address]96 Urea nitrogen [Mass/Vol] 14 mg/dL Normal 7-21 [facility] Comment on above: Order Comment: Speci men Type: BLOOD SPECIMEN Ordering Facility: [facility] Address: [address] [place] [address] Performed By: #### 2 4323-8 #### [facility] CLIA [id number] [address] [place] [address] Cortis p Dex SerPl-mCncon Cortisol post dose dexamethasone [Mass/Vol] 0.5 ug/dL Normal <1.8 [facility] Comment on above: Order Comment: Dale lyle Type: BLOOD SPECIMEN Ordering Facility: [facility] Address: [address] [place] [address] Result Comment: Afte r overnight 1 mg dexamethasone, an consulting project director cortisol of <1.8 ug/dL may indicate an adequate cortisol suppression. This result should be interpreted within the clinical context and other test results. Maggy et al. Evidence for the Low Dose Dexamethasone Suppression Test to Screen for Belén's Syndrome - Recommendations for a Protocol for Biochemistry Laboratories. 1997 Kristi. Clin. Biochem. 34 222-229. Performed By: #### 2 4331-1 #### [facility] CLIA [id number] [address] [place] [address] [place] [facility] CLIA [id number] [address] [place] [address] #### 52323-5 #### [facility] CLIA [id number] [address] [place] [address] [place] DEXAMETHASONEon 07-06-2023 DEXAMETHASONE 299.5 ng/dL Normal [facility] Comment on above: Order Comment: Dale lyle Type: BLOOD SPECIMEN Ordering Facility: [facility] Address: [address] [place] [address] Result Comment: INTE RPRETIVE INFORMATION: Dexamethasone, Serum [...] developed and its performance characteristics determined by [facility]. It has not been cleared or approved by the US Food and Drug Administration. This test was performed in a CLIA certified laboratory and is intended for clinical purposes. Performed By: [facility] [address] [place] [address] Java Integration Developer: Dean Gill MD, PhD CLIA Number: [id number] Performed By: #### D LATRELLA #### [facility] CLIA [id number] [address] [place] [address] HbA1c (Bld)on 07-06-2023 Average glucose Estimated from glycated hemoglobin (Bld) [Mass/Vol] 128 mg/dL Normal [facility] Comment on above: Order Comment: Dale lyle Type: BLOOD SPECIMEN Ordering Facility: [facility] Address: [address] [place] [address] Result Comment: eAG: (Estimated average glucose) is a calculated value from HgbA1c and is product sales representative of the average blood glucose level in the last 2-3 month period. Performed By: #### 5 5454-3 #### [facility] CLIA [id number] [address] [place] [address] [place] HbA1c (Bld) [Mass fraction] 6.1 % High 4.3-5.6 [facility] Comment on above: Order Comment: Dale lyle Type: BLOOD SPECIMEN Ordering Facility: [facility] Address: [address] [place] [address] Result Comment: Amer [place] Diabetes Association guidelines indicate that patients with HgbA1c in the range 5.7-6.4% are at increased risk for development of diabetes, and intervention by lifestyle modification may be beneficial. HgbA1c greater or equal to 6.5% is considered diagnostic of diabetes. Performed By: #### 5 5454-3 #### [facility] CLIA [id number] [address] [place] [address] [place] Lipid 1996 panelon 4 Cholesterol [Mass/Vol] 240 mg/dL High <200 [facility] Comment on above: Order Comment: Dale lyle Type: BLOOD SPECIMEN Ordering Facility: [facility] Address: [address] [place] [address] Result Comment: <200 mg/dL, Desirable 200-239 mg/dL, Borderline high >239 mg/dL, High Performed By: #### 2 4331-1 #### [facility] CLIA [id number] [address] [place] [address] LAB CLIA [id number] [address] [place] [address] #### 51922-4 #### [facility] CLIA [id number] [address] [place] [address] [place] Cholesterol in HDL [Mass/Vol] 45 mg/dL Normal >39 [facility] Comment on above: Order Comment: Speci men Type: BLOOD SPECIMEN Ordering Facility: [facility] Address: [address] [place] [address] Result Comment: 40-5 9 mg/dL, Acceptable >59 mg/dL, High: Negative risk factor for coronary heart disease <40 mg/dL, Low: Positive risk factor for coronary heart disease Performed By: #### 2 4331-1 #### [facility] CLIA [id number] [address] [place] [address] OF [facility] CLIA [id number] [address] [place] [address] #### 02020-2 #### [facility] CLIA [id number] [address] [place] [address] [place] Cholesterol in LDL [Mass/Vol] 155 mg/dL High <100 [facility] Comment on above: Order Comment: Speci men Type: BLOOD SPECIMEN Ordering Facility: [facility] Address: [address] [place] [address] Result Comment: <100 mg/dL, Optimal 100-129 mg/dL, Near optimal/above optimal 130-159 mg/dL, Borderline high 160-189 mg/dL, High >189 mg/dL, Very high Secondary prevention optimal LDL Cholesterol levels are recommended to be < 70 mg/dL Performed By: #### 2 4331-1 #### [facility] CLIA [id number] [facility] [place] [address] [place] [facility] CLIA [id number] [address] [place] [address] #### 46590-7 #### [facility] CLIA [id number] [address] [place] [address] [place] Cholesterol in LDL/Cholesterol in HDL [Mass ratio] 3.44 {ratio} High <2.54 [facility] Comment on above: Order Comment: Speci men Type: BLOOD SPECIMEN Ordering Facility: [facility] Address: [address] [place] [address] Result Comment: Refe rence: 1. National Cholesterol Education Program ATP III Guideline At-A-Glance Quick Desk Reference: National Heart, Lung, and Blood [place]. National Institutes of Health. 2001: NIH Publication No. 01-3305. 2. An International Atherosclerosis Society position paper: global recommendations for the management of dyslipidemia: executive summary, Atherosclerosis. 2014: 232(2):410-413. Performed By: #### 2 4331-1 #### [facility] CLIA [id number] [address] [place] [address] [place] [facility] CLIA [id number] [address] [place], [place] [address] #### 23297-4 #### [facility] CLIA [id number] [address] [place] [address] [place] Cholesterol in VLDL [Mass/Vol] 40 mg/dL High <30 [facility] Comment on above: Order Comment: Speci men Type: BLOOD SPECIMEN Ordering Facility: [facility] Address: [address] [place] [address] Performed By: #### 2 4331-1 #### [facility] CLIA [id number] [address] [place], [place] [address] [place] [facility] CLIA [id number] [address] [place] [address] #### 07121-5 #### [facility] CLIA [id number] [address] [place], [place] [address] [place] Cholesterol non HDL [Mass/Vol] 195 mg/dL High <130 [facility] Comment on above: Order Comment: Speci men Type: BLOOD SPECIMEN Ordering Facility: [facility] Address: [address] [place], [place] [address] Result Comment: <130 mg/dL, Optimal 130-159 mg/dL, Near optimal/above optimal 160-189 mg/dL, Borderline high 190-219 mg/dL, High >219 mg/dL, Very high Secondary prevention optimal non HDL Cholesterol levels are recommended to be <100 mg/dL Performed By: #### 2 4331-1 #### [facility] CLIA [id number] [address] [place] [address] OF [facility] CLIA [id number] [address] [place] [address] #### 11933-7 #### [facility] CLIA [id number] [address] [place], [place] [address] [place] Cholesterol.total/Ruby sterol in HDL [Mass ratio] 5.33 {ratio} High <5.10 [facility] Comment on above: Order Comment: Speci men Type: BLOOD SPECIMEN Ordering Facility: [facility] Address: [address] [place] [address] Performed By: #### 2 4331-1 #### [facility] CLIA [id number] [address] [place], [place] [address] [facility] [place] [facility] CLIA [id number] [address] [place] [address] #### 80941-1 #### [facility] CLIA [id number] [address] [place] [address] [place] FASTING TIME 12 hrs Normal [facility] Comment on above: Order Comment: Speci men Type: BLOOD SPECIMEN Ordering Facility: [facility] Address: [address] [place] [address] Performed By: #### 2 4331-1 #### [facility] CLIA [id number] [address] [place] [address] OF [facility] CLIA [id number] [address] [place] [address] #### 80255-9 #### [facility] CLIA [id number] [address] [place] [address] [place] Triglyceride [Mass/Vol] 199 mg/dL High <150 [facility] Comment on above: Order Comment: Speci men Type: BLOOD SPECIMEN Ordering Facility: [facility] Address: [address] [place] [address] Result Comment: <150 mg/dL, Normal 150-199 mg/dL, Borderline high 200-499 mg/dL, High >499 mg/dL, Very high Performed By: #### 2 4331-1 #### [facility] CLIA [id number] [address] [place] [address] [place] [facility] CLIA [id number] [address] [place] [address] #### 53895-6 #### [facility] CLIA [id number] [address] [place] [address] [place] CNOVon 07-01-2023 CNOV Office Visit (ENDCMN) ALMA DELIA PEARL ([id number]) 1985 F Date Time Provider Department 07/01/23 9:30 AM EDMUNDO DEVLIN During your visit today, we recorded the following information about you: Pulse Blood pressure Weight 87/minute 114/76 137 kg Jeanie Zimmer MA 07/01/2023 9:11 AM Signed Thank you for choosing the [facility] Department of Endocrinology, Diabetes and Metabolism. Did you know that you need to call 48 hours in advance of your scheduled visit, if you are unable to make your appointment? The [facility]ology [facility] [place] thanks you for your commitment, because patients not showing to their appointment results in a lost opportunity for patients to receive [facility] health care at the [facility]. To Cancel an appointment, please choose one of the following: - Call the Appointment Call Center at [phone] - From [employer], Go to Appointments - Cancel Appts If cancelling, consider your need to reschedule to prevent further delays in your care. To Schedule an appointment, please choose one of the following: - Call the Appointment Call Center at [phone] - From [employer], Go to Appointments - Request an Appt Edmundo Devlin MD 07/04/2023 9:44 AM Signed ENDOCRINOLOGY AND METABOLISM [facility] NEW [...] Yes, no success Commercial Programs: Yes (Slimfast) Hogshead Salvage:Yes Medically supervised program:Yes Weight Loss Medication:Yes (currently on Tirzepatide) Bariatric Surgery: No Maximum weight lost: 20 lbs (6 years ago, dieting) Current weight: 302 lbs Lowest weight: 170 lbs for years Maximum weight: 305 Causes of Weight Gain: Family/Work events: Yes (Don't eat a lot 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 Normal [facility] Office/Clini c Noteon 07-01-2023 [facility] Office/Clinic Note HPI Staff Pt is a [...] day(s), # 6 tab(s), Refills(s) 0, Pharmacy: [facility] #[id number], 173, cm, 07/01/23 12:09:00 EST, Height/Length Dosing, 137, kg, 07/01/23 12:09:00 EST, Weight Dosing fluconazole, 150 mg = 1 tab(s), Oral, Once, 1 tab when antibiotic starts, and 1 tab at the completion of the antibiotic, # 2 tab(s), Refills(s) 1, Pharmacy: [facility] #[id number], 173, cm, 07/01/23 12:09:00 EST, Height/Length Dosing, 137, kg, 07/01/23 12:09:... Rapid Strep POC 75255 3. Yeast infection (B37.9: Candidiasis, unspecified) Diflucan as directed to prevent yeast infection Ordered: fluconazole, 150 mg = 1 tab(s), Oral, Once, 1 tab when antibiotic starts, and 1 tab at the completion of the antibiotic, # 2 tab(s), Refills(s) 1, Pharmacy: [facility] #[id number], 173, cm, 07/01/23 12:09:00 EST, Height/Length Dosing, 137, kg, 07/01/23 12:09:... 4. BMI 45.0-49.9, adult (Z68.42: Body mass index [BMI] 45.0-49.9, adult) Continue to monitor Ordered: azithromycin, = 1 packet(s), Oral, As Directed, as directed on package labeling, X 5 day(s), # 6 tab(s), Refills(s) 0, Pharmacy: [facility] #[id number], 173, cm, 07/01/23 12:09:00 EST, Height/Length Dosing, 137, kg, 07/01/23 12:09:00 EST, Weight Dosing fluconazole, 150 mg = 1 tab(s), Oral, Once, 1 tab when antibiotic starts, and 1 tab at the completion of the antibiotic, # 2 tab(s), Refills(s) 1, Pharmacy: [facility] #[id number], 173, cm, 07/01/23 12:09:00 EST, Height/Length Dosing, 137, kg, 07/01/23 12:09:... 5. Morbid obesity (E66.01: Morbid (severe) obesity due to excess calories) Continue to monitor Ordered: azithromycin, = 1 packet(s), Oral, As Directed, as directed on package labeling, X 5 day(s), # 6 tab(s), Refills(s) 0, Pharmacy: [facility] #[id number], 173, cm, 07/01/23 12:09:00 EST, Height/Length Dosing, 137, kg, 07/01/23 12:09:00 EST, Weight Dosing fluconazole, 150 mg = 1 tab(s), Oral, Once, 1 tab when antibiotic starts, and 1 tab at the completion of the antibiotic, # 2 tab(s), Refills(s) 1, Pharmacy: [facility] #[id number], 173, cm, 07/01/23 12:09:00 EST, Height/Length Dosing, [...] Inh So (more content not included)... Normal [facility] Comment on above: Result Comment: Elec tronically [...] ? Medicines that treat allergies (antihistamines). ? Rxry-umo-rkjbwdk pain relievers. ? If caused by bacteria, [...] home: Medicines ? 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 ? Do not smoke. Avoid being around people who are smoking (secondhand smoke). ? Keep all follow-up visits. This is important. Contact a health care provider if: ? You have a fever. ? Your symptoms get (more content not included)... Normal [facility] Patient Educationon 06-07-19 Patient Education Endocrinology [...] following in (more content not included)... Normal [facility] Consent for Treatmenton 05-10 Consent for Treatment [id number] #1.00TIFF Normal [facility] MA Mamm Diag w/CAD if perf [...] VERY IMPORTANT TO YOUR HEALTH. THE CURRENT [place] [employer] RADIOLOG[employer] AND NATIONAL COMPREHENSIVE CANCER [...] Category 1-Negative Recommendation: Normal interval follow-up Normal [facility] Breast Unilateral Lt Comp leteon 06-03-2023 [place] [...] Hussein Oates MD Transcribed by: ABBY Technologist: Normal [facility] Family Medicine Office/Clini c Noteon 05-25-2023 [...] in years. She has been seeing her OB-BUILDER OPERATOR, Dr. Fitzgerald and has an appointment on 05/23/2023. She previously had Mirena IUD, but her body rejected it. She is sexually active occasionally. She has had abnormal Pap smears, but not recently. Diabetes The patient is diabetic. Her previous hemoglobin A1c test was normal, and she has not checked it again since 03/2023. She is seeing an awning maker through [facility]. She has discontinued using Mounjaro for [...] the patient (more content not included)... Normal [facility] Comment on above: Result Comment: Elec tronically Signed By: Aicha Magana\.br\Date and Time Signed: 05/25/23 03:21 EST\.br\Electronically Co-Signed By: Leyla Trujillo\.br\Date and Time Co-Signed: 05/20/23 16:26 EST Consultation Noteon 05-21-19 Consultation Note [id number]# 1.00TIFF Normal [facility] Ambulatory Visit Summaryon 0 05-20-2023 Ambulatory Visit Summary ALMA DELIA PEARL :1985 Visit Date:05/20/2023 Ambulatory Visit Instructions Your [...] Interventions: Continue with appointments at [facility] pain clinic. Increase daily exercise Lose weight [...] 4:20 PM EST With: Irasema Love Where: [facility] Invalid Interpretation Code [address], [address] [place], [place] [id number] \ You Need to Complete the Following\.b r\ Beta hCG Quantitative , Blood, Routine collect, 05/20/23, Order for future visit, Lab Collect, Nipple discharge [facility] CHEMISTRYOrdered By: SYSTEM SYSTEM on 05-20-2023 [...] on your nipples. General instructions ? Take jwmw-hzy-elhvimj and prescription medicines only as told by [...] provider. Document Revised: 02/23/2021 Document Reviewed: 02/23/2021 [employer] Patient Education ? 2022 [employer]. Obstetrics and Gynecology Polycystic Ovary Syndrome Polycystic [...] or are (more content not included)... Normal [facility] U Microalbon 05-20-2023 U Microalb <2.0 Normal 0.0-19.0 [facility] Comment on above: Performed By: #### 1 [id number] #### [facility] Laboratory [address] [place] [place] [address] CHEMISTRYOrdered By: SYSTEM SYSTEM on 04-06-2023 Albumin [...] 22 mmol/L Normal 21 - 31 mmol/L [facility] Creatinine [Mass/Vol] 0.9 mg/dL Normal 0.5 - 1.3 mg/dL [facility] GFR/1.73 sq M.predicted among non-blacks MDRD (S/P/Bld) [Vol rate/Area] 84 mL/min/1.73 m2 Normal >=59mL/min/1 .73 m2 [facility] Chem S Comment on [...] 3.9 mmol/L Normal 3.5 - 5.3 mmol/L [facility] Protein [Mass/Vol] 7.3 g/dL Normal 6.0 - 7.8 gm/dL [facility] Sodium [Moles/Vol] 138 mmol/L Normal 135 - 145 mmol/L [facility] Urea nitrogen [Mass/Vol] 13 mg/dL [...] Interpretation Code Negative [facility] UA Auto SS [place].plasma/[place]. RBC (Bld) [Mass ratio] 4-20 /HPF Normal [...] Desc Clean Catch (04/06/23 3:19 PM) Normal [facility] UA Auto SS Urobilinogen Qn (U) 0.8206664 {Dre'U}/dL Normal 0.0 - 1.0 EU/dL [facility] UA Auto SS WBC Auto Ql (U) Negative (04/06/23 3:19 PM) Normal Negative [facility] UA Auto SS WBC LM.HPF (Urine sed) [#/Area] 0-5 /HPF Normal 0-5/HPF [facility] UA Auto SS Yeast LM Ql (Urine sed) 2+ (04/06/23 3:19 PM) Normal [facility] UA Auto SS Family [...] puff(s), Inhalation, q6hr, 18 gm, Refill(s) 4, [facility] #[id number], 173, cm, 03/14/23 16:23:00 EST, Height/Length Dosing, 132.2, kg, 03/14/23 16:23:00 EST, Weight Dosing azithromycin, = 1 packet(s), Oral, As Directed, as directed on package labeling, X 5 day(s), # 6 tab(s), Refills(s) 0, Pharmacy: [facility] #[id number], 173, cm, 03/14/23 16:23:00 EST, Height/Length Dosing, 132.2, kg, 03/14/23 16:23:00 EST, Weight Dosing Follow-up No qualifying data available Patient Education Asthma, Adult, Frkq-dn-Vged Cough, Adult, Opcx-sr-Flhf Problem List/Past Medical History Ongoing Amenorrhea Anxiety [...] SARS-CoV-2 mRN (more content not included)... Normal [facility] Comment on above: Result Comment: Elec tronically Signed By: ANNABEL HERNANDEZ CNP\crispin\Date and Time Signed: 03/14/23 21:04 EST Patient Educationon 03-14-20 Patient Education ENT Cough, Adult A cough [...] these instructions at home: Medicines ? Take fylv-bus-yfehnpg and prescription medicines only as told by [...] things can cause a cough. ? Take zkod-bss-bqjymbr and prescription medicines only as told by [...] provider. Document Revised: 06/13/2020 Document Reviewed: 05/14/2019 [employer] Patient Education ? 2022 [employer]. Pulmonary Medicine Asthma, Adult Asthma is a [...] ? Pollen. ? Air pollution (like household practice nurse, wood smoke, smog, or chemical odors). What [...] their droppings (more content not included)... Normal [facility] CHEMISTRYOrdered By: SYSTEM SYSTEM on 10-21-2022 Bilirubin.direct [Mass/Vol] mg/dL Normal 0.1 - 0.4 mg/dL [facility] Bilirubin.indirect [Mass or moles/Vol] Unable to Calculate mg/dL Invalid Interpretation Code 0.1 - 0.9 mg/dL [facility] CRP [Mass/Vol] 1.6 mg/dL Normal <=1.9mg/dL [facility] ol GFR/1.73 sq M.predicted among non-blacks MDRD (S/P/Bld) [Vol rate/Area] 97 mL/min/1.73 m2 Normal >=59mL/min/1 .73 m2 [facility] Chem S Lipase [Catalytic [...] 0.5 E9/L Normal 0.2 - 1.0 E9/L [facility] Neutrophils/100 WBC (Bld) 59.3 % Normal 36.0 - 75.0 % [facility] Neutrophils/Leukocytes Auto (Bld) [Pure # fraction] 6.0 E9/L Normal 2.0 - 7.5 E9/L [facility] HEMATOLOGYOrdered By: Angelica Terrazas on 10-21-2022 Erythrocyte distribution width (RBC) [Ratio] 13.6 % Normal 10.9 - 14.2 % [facility] Hematocrit (Bld) [Volume fraction] 39.3 % Normal 34.0 - 46.0 % [facility] Hemoglobin (Bld) [Mass/Vol] 13.1 g/dL Normal 12.0 - 16.0 gm/dL [facility] MCH (RBC) [Entitic mass] 27.5 pg Normal 27.0 - 34.0 pg [facility] MCHC (RBC) [Mass/Vol] 33.5 g/dL Normal [...] 10.0 E9/L Normal 4.0 - 11.0 E9/L [facility] Laboratory - Chemistry and C hemistry - challengeOrdered By: SYSTEM SYSTEM on 10-21-2022 Albumin [Mass/Vol] 4.3 g/dL Normal 3.3 - 5.0 gm/dL [facility] Remisol Albumin/Globulin [Mass ratio] 1.2 {ratio} Normal [...] PM) Normal Negative [facility] UA Auto SS [place].plasma/[place]. RBC (Bld) [Mass ratio] 0-3 /HPF Normal 0-3/HPF [facility]A A uto SS Nitrite Ql (U) [...] Desc Clean Catch (10/21/22 4:10 PM) Normal [facility] UA Auto SS Urobilinogen Qn (U) 0.7604183 {Dre'U}/dL Normal 0.0 - 1.0 EU/dL [facility] [...] 0.9 mg/dL Normal 0.5 - 1.3 mg/dL [facility] GFR/1.73 sq M.predicted among blacks MDRD (S/P/Bld) [Vol rate/Area] mL/min/1.73 m2 Normal >=59mL/min/1 .73 m2 FT Chem S GFR/1.73 sq M.predicted among non-blacks MDRD (S/P/Bld) [Vol rate/Area] mL/min/1.73 m2 Normal >=59mL/min/1 .73 m2 [facility] Chem S Globulin (S) [Mass/Vol] 3.6 g/dL Normal 1.4 - 4.0 gm/dL [facility] Glucose [Mass/Vol] 153 mg/dL Normal 55 - 199 mg/dL [facility] Lipase [Catalytic activity/Vol] 28 U/L Normal [...] Interpretation Code Negative [facility] UA Auto SS [place].plasma/[place]. RBC (Bld) [Mass ratio] 0-3 /HPF Normal 0-3/HPF [facility] UA A uto SS Nitrite Ql (U) [...] Desc Clean Catch (05/23/22 7:54 AM) Normal [facility] UA Auto SS Urobilinogen Qn (U) 0.8823334 {Dre'U}/dL Normal 0.0 - 1.0 EU/dL [facility] UA Auto SS WBC Auto Ql (U) Negative (05/23/22 7:54 AM) Normal Negative [facility] UA Auto SS WBC LM.HPF (Urine sed) [#/Area] 0-5 /HPF Normal 0-5/HPF [facility] UA Auto SS HEMOGLOBIN A1C (POC)on 03-31 HbA1c (Bld) [Mass fraction] 6.0 % 4.2 - 5.6 % [facility] CHEMISTRYOrdered By: SYSTEM SYSTEM on 12-31-2021 [...] 22 [iU]/d Normal 5 - 43 Int._Unit/L [facility] Bilirubin [Mass/Vol] 0.4 mg/dL Normal 0.0 - 1 .1 mg/dL [facility] Calcium [Mass/Vol] 9.2 mg/dL Normal 8.9 - 11. 1 mg/dL [facility] Chloride [Moles/Vol] 102 mmol/L Normal 101 - 1 11 mmol/L [facility] CO2 [Moles/Vol] 25 mmol/L Normal 21 - 31 mmol/L [facility] Creatinine [Mass/Vol] 0.8 mg/dL Normal 0.5 - 1.3 mg/dL [facility] GFR/1.73 sq M.predicted among blacks MDRD (S/P/Bld) [Vol rate/Area] mL/min/1.73 m2 Normal >=59mL/min/1 .73 m2 [facility] Chem S GFR/1.73 sq M.predicted among non-blacks MDRD (S/P/Bld) [Vol rate/Area] mL/min/1.73 m2 Normal >=59mL/min/1 .73 m2 [facility] Chem S Globulin (S) [Mass/Vol] 3.8 g/dL Normal 1.4 - 4.0 gm/dL [facility] Glucose [Mass/Vol] 105 mg/dL Normal 55 - 199 mg/dL [facility] Magnesium [Mass/Vol] 1.8 mg/dL Normal 1.3 - 2 .4 mg/dL [facility] Potassium [Moles/Vol] 3.5 mmol/L Normal 3.5 - 5.3 mmol/L [facility] Protein [Mass/Vol] 8.2 g/dL High 6.0 - 7.8 gm/dL [facility] Sodium [Moles/Vol] 136 mmol/L Normal 135 - 145 mmol/L [facility] Troponin I.cardiac [Mass/Vol] 3.10 pg/mL Low [...] MDRD (S/P/Bld) [Vol rate/Area] mL/min/1.73 m2 Normal >=59mL/min/1 .73 m2 [facility] S GFR/1.73 sq M.predicted among non-blacks MDRD (S/P/Bld) [Vol rate/Area] mL/min/1.73 m2 Normal >=59mL/min/1 .73 m2 [facility] S Globulin (S) [Mass/Vol] [...] [Mass/Vol] pg/mL Low 10.10 - 27.10 pg/mL [facility] Urea nitrogen [Mass/Vol] 12 mg/dL Normal 5 - 21 mg/dL [facility] Urea nitrogen/Creatinine [Mass ratio] 15 mg/mg Normal 10 - 20 [facility] CHEMISTRYOrdered By: Nerissa Velarde on 12-24-2021 Natriuretic peptide B (Bld) [Mass/Vol] 7 pg/mL Normal 5 - 80 pg/mL [facility] HEMATOLOGYOrdered By: SYSTEM SYSTEM on 12-24-2021 [...] 81.0 fL Normal 80.0 - 100.0 fL [facility] Platelet mean volume (Bld) [Entitic vol] 9.0 fL Normal 6.4 - 10.8 fL [facility] Platelets (Bld) [#/Vol] 363.0 E9/L Normal 150. 0 - 500.0 E9/L [facility] RBC (Bld) [#/Vol] 3.2 E12/L Low 4.3 - 5.9 E12/L [facility] WBC corrected for nucl RBC Auto (Bld) [#/Vol] 15.4 E9/L High 4.0 - 11.0 E9/L [facility] Comment on above: Result Comment: Slid e reviewed by AD. MICRO OTHER TESTSOrdered By: Nerissa Velarde on 12-24-2021 Rapid COV Int NEG Ctl Pass (12/24/21 10:00 PM) Normal [facility] Sero Rapid COV Int POS Ctl Pass (12/24/21 10:00 PM) Normal [facility] SARS-CoV+SARS-CoV-2 (COVID-19) Ag IA.rapid Ql (Resp) Not Detected (12/24/21 10:00 PM) Normal Not Detected [facility] SEROLOGYOrdered By: Nerissa Velarde on 12-24-2021 HCG.beta subunit (U) [Moles/Vol] Negative Normal [facility] CHEMISTRYOrdered By: Nuria Bills se on 11-24-2021 HbA1c (Bld) [Mass fraction] 6.3 % High <=5.9% [facility] Bariatric Surgery - Initialo n 11-11-2021 [...] She states that she does see a management trainee marketing, and believes that she may have factor [...] patient receives most of her care in [place]. Her PCP is a nurse practitioner, Violet. [...] metformin for (more content not included)... Normal [employer] CHEMISTRYOrdered By: SYSTEM SYSTEM on 11-01-2021 Albumin [...] 0.9 mg/dL Normal 0.5 - 1.3 mg/dL [facility] GFR/1.73 sq M.predicted among blacks MDRD (S/P/Bld) [Vol rate/Area] mL/min/1.73 m2 Normal >=59mL/min/1 .73 m2 [facility] Chem S GFR/1.73 sq M.predicted among non-blacks MDRD (S/P/Bld) [Vol rate/Area] mL/min/1.73 m2 Normal >=59mL/min/1 .73 m2 [facility] S Globulin (S) [Mass/Vol] 3.4 g/dL Normal 1.4 - 4.0 gm/dL [facility] Glucose [Mass/Vol] 115 mg/dL Normal 55 [...] 6.9 E9/L Normal 2.0 - 7.5 E9/L [facility] HEMATOLOGYOrdered By: Clarence Swift on 11-01-2021 [...] PM) Normal Negative [facility] UA Auto SS [place].plasma/[place]. RBC (Bld) [Mass ratio] 0-3 /HPF Normal 0-3/HPF [facility]A A uto SS Mucus Ql (Urine sed) 1+ (11/01/21 7:59 PM) Normal [facility]A Auto SS Nitrite Ql (U) Negative (11/01/21 7:59 PM) Normal Negative [facility] UA Auto SS pH (U) 5.5 *NA* (11/01/21 7:59 PM) Invalid Interpretation Code 5.0 - 9.0 [facility]A Auto SS Protein (U) [Mass/Vol] Negative (11/01/21 7:59 PM) Normal Negative [facility] UA Auto SS Specific gravity (U) [Rel density] >=1.030 *NA* (11/01/21 7:59 PM) Invalid Interpretation Code 1.005 - 1.030 [facility] UA Auto SS UA Spec Desc Clean Catch (11/01/21 7:59 PM) Normal [facility] UA Auto SS Urobilinogen Qn (U) 0.5880967 {Dre'U}/dL Normal 0.0 - 1.0 EU/dL [facility] UA Auto SS WBC Auto Ql (U) Negative (11/01/21 7:59 PM) Normal Negative [facility] UA Auto SS WBC LM.HPF (Urine sed) [#/Area] 0-5 /HPF Normal 0-5/HPF [facility] UA Auto SS BLOOD BANKOrdered By: Neli landry on 08-18-2021 ABO/Rh Interp Positive Invalid Interpretation Code [facility] BB Subsection ABSC Gel Interp Negative (08/18/21 8:25 AM) Normal [facility] BB Subsection CHEMISTRYOrdered By: SYSTEM SYSTEM on 08-18-2021 Amphetamines Screen method >1000 ng/mL Ql (U) Negative (08/18/21 8:55 AM) Normal Negative [facility] Barbiturates Screen Ql (U) Negative (08/18/21 8:55 AM) Normal Negative [facility] Benzodiazepines Ql (U) Negative (08/18/21 8:55 AM) Normal Negative [facility] Cocaine Ql (U) Negative (08/18/21 8:55 [...] SS Glucose Test strip (U) [Mass/Vol] Negative (4/12/22 8:55 AM) Normal Negative [facility] UA Auto SS Hemoglobin Ql (U) 1+ *ABN* (08/18/21 8:55 AM) Invalid Interpretation Code Negative [facility] UA Auto SS Ketones (U) [Mass/Vol] Negative (08/18/21 8:55 AM) Normal Negative [facility] UA Auto SS [place].plasma/[place]. RBC (Bld) [Mass ratio] 0-3 /HPF Normal [...] [facility] UA Auto SS Urobilinogen Qn (U) 0.4746908 {Dre'U}/dL Normal 0.0 - 1.0 EU/dL [facility] [...] MDRD (S/P/Bld) [Vol rate/Area] mL/min/1.73 m2 Normal >=59mL/min/1 .73 m2 [facility] S GFR/1.73 sq M.predicted among non-blacks MDRD (S/P/Bld) [Vol rate/Area] mL/min/1.73 m2 Normal >=59mL/min/1 .73 m2 [facility] Chem S Globulin (S) [Mass/Vol] 3.1 g/dL Normal 1.4 - 4.0 gm/dL [facility] Glucose [Mass/Vol] 151 mg/dL Normal 55 [...] 39.8 % Normal 32.0 - 48.4 % [facility] TSH Qn 2.04 m[IU]/L Normal 0.34 [...] - 7.5 E9/L [facility] HEMATOLOGYOrdered By: Neli landry on 07-29-2021 Erythrocyte distribution width (RBC) [...] 10.8 fL [facility] Platelets (Bld) [#/Vol] 256.0 E9/L Normal 150. 0 - 500.0 E9/L [facility] RBC (Bld) [#/Vol] 4.5 E12/L Normal 4.3 - 5.9 E12/L [facility] WBC corrected for nucl RBC Auto (Bld) [#/Vol] 8.8 E9/L Normal 4.0 - 11.0 E9/L [facility] ECG 12 lead ECGon 07-07-2021 ECG 12 lead ECG [facility] [address] Electrocardiograph Report Signed Patient: Alma Delia Pearl MR#: [id number] : 1985 Acct:[id number] Age/Sex: 36 / F ADM Date: 07/07/21 Loc: ER Room: Type: [facility] ER Attending Dr: Ordering Provider: [...] Ulises Andre MD 0 07/10/21 1412 Normal [facility] HCG,Urineon 07-06-2021 Beta HCG ( test) Ql (U) Negative Normal [facility] Comment on above: Result Comment: PERF ORMED BY: [facility] [address] [place] [address] PATHOLOGIST MANUAL ARTS TEACHER MARLEN SIDDIQUI M.D. Performed By: #### U HCG #### [facility] [address] Q - HCG TOTAL QNon 2 HCG, TOTAL, QN <3 Normal [facility] Contour Grinder Comment on above: Order Comment: [facility] Testing performed at: [facility], [place] [employer] [facility], [address] [place] [address], [address] [place] [address], [id number], Java Integration Developer: Boo Chen MD [facility] Collection Date/Time: [facility] Results Received Date/Time: [facility] Reported Date/Time: Result Comment: Refe rence Range Non or premenopausal <5 Postmenopausal <10 Values from different assay methods may vary. The use of this assay to monitor or to diagnose patients with cancer or any condition unrelated to has not been cleared or approved by the FDA or the log loader of the assay. Performed By: #### 2 [id number] #### [facility] Default [address] [place] [address] ER URINE PROFILEon 8 Bilirubin (total) Negative Normal NEGATIVE [facility] Comment on above: Performed By: #### E RUR ####[facility] Shczmbihcx[address] [place] BLOOD Negative Normal NEGATIVE [facility] Comment on above: Performed By: #### E RUR ####[facility] Peycurzjlr[address] [place] ERUAHD A micrscopic examination will be performed if indicated. Normal [facility] Comment on above: Performed By: #### E RUR ####[facility] [address] [place] [id number] [place] Glucose mass conc Negative Normal NEGATIVE [facility] Comment on above: Performed By: #### E RUR ####[facility] [address] [place] [id number] [place] pH of blood 5.0 [pH] Normal 5-9 [facility] Comment on above: Performed By: #### E RUR ####[facility] [address] [place] [id number] [place] Protein Negative Normal [facility] Comment on above: Performed By: #### E RUR ####[facility] [address] [place] [address] [place] SPEC GRAVITY >=1.030 Normal 1.005-<=1.02 5 [facility] Comment on above: Performed By: #### E RUR ####[facility] [address] [place] [address] [place] UR MICRO IND NOT INDICATED Normal [facility] Comment on above: Performed By: #### E RUR ####[facility] [address] [place], [place] [phone] [place] Urine, clarity CLEAR Normal [facility] Comment on above: Performed By: #### E RUR ####[facility] [address] [employer] [place], [place] [id number] [place] Urine, color LT. YELLOW Normal YELLOW [facility] Comment on above: Performed By: #### E RUR ####[facility] [address] [place] [id number] [place] Urine, ketones presence Negative Normal NEGATIVE [facility] Comment on above: Performed By: #### E RUR ####[facility] [address] [place], [place] [phone] [place] Urine, nitrite presence Negative Normal NEGATIVE [facility] Comment on above: Performed By: #### E RUR ####[facility] [address] [place], [place] [address]Wfpbyn [place] Urine, urobilinogen 0.2 {Dre'U}/dL Normal [facility] Comment on above: Performed By: #### E RUR ####[facility] [address] [place], [place] [address]Agpznn [place] WBC (Leukocytes) Negative Normal NEGATIVE [facility] Comment on above: Performed By: #### E RUR ####[facility] [address] [place], [place] [address]Juqsre [place] URon 06-04-2017 , QUAL Negative Normal NEGATIVE [facility] Comment on above: Performed By: #### S SCRN, STREPC ####[facility] [address] [place] [address]Isolye [place] AMYLASEon 06-03-2017 Amylase 48 U/L Normal 31-110 [facility] Comment on above: Performed By: #### L IPA, CMP, SAMANTA ####[facility] [address] [place] [address]Ianmid [place] CBC AUTO DIFFon 06-03-2017 Basophils Auto #/vol (Bld) 0.0 103/ul Normal 0.0-0.1 [facility] Comment on above: Performed By: #### C BC ####[facility] [address] [place], [place] [phone] [place] Basophils/100 WBC Auto (Bld) 0.3 % Normal 0.2-2.0 [facility] Comment on above: Performed By: #### C BC ####[facility] [address] [place], [place] [phone] [place] Eosinophils 0.2 103/ul Normal 0.0-0.7 [facility] Comment on above: Performed By: #### C BC ####[facility] [address] [place], [place] [phone] [place] Eosinophils/100 leukocytes 2.2 % Normal 0.9-7.0 [facility] Comment on above: Performed By: #### C BC ####[facility] [address] [place] [id number] [place] Erythrocyte distribution width Auto Ratio (RBC) 13.2 % Normal 11.0-15.0 [facility] Comment on above: Performed By: #### C BC ####[facility] [address] [place] [id number] [place] Erythrocytes (RBC) 4.92 106/ul Normal 4.20-5.40 [facility] Comment on above: Performed By: #### C BC ####[facility] [address] [place] [address]ken [place] Hematocrit (HCT) 41.8 % Normal 36.0-48.0 [facility] Comment on above: Performed By: #### C BC ####[facility] [address] [place] [address]ken [place] Hemoglobin mass conc (Bld) 13.6 g/dL Normal 12.0-16.0 [facility] Comment on above: Performed By: #### C BC ####[facility] [address] [place], [place] [phone] [place] IG # 0.04 10e3/ul Critically high 0.00-0.03 [facility] Comment on above: Performed By: #### C BC ####[facility] [address] [place], [place] [address]Gerken [place] IG % 0.4 % Normal 0.0-0.5 [facility] Comment on above: Performed By: #### C BC ####[facility] [address] [place] [id number] [place] Lymphocytes 1.6 103/ul Normal 1.2-3.8 [facility] Comment on above: Performed By: #### C BC ####[facility] [address] [place] [id number] [place] Lymphocytes/100 leukocytes 15.8 % Critically low 20.5-60.0 [facility] Comment on above: Performed By: #### C BC ####[facility] [address] [place], [place] [phone] [place] MANUAL DIFF REQ NO Normal [facility] Comment on above: Performed By: #### C BC ####[facility] [address]au[address] [place] MCH 27.6 pg Normal 26.7-34.0 [facility] Comment on above: Performed By: #### C BC ####[facility] Ourzejmbcm[address] [place] MCHC mass conc (RBC) 32.5 g/dL Normal 29.9-35.2 [facility] Comment on above: Performed By: #### C BC ####[facility] [address] [place] [address] [place] MCV 85.0 fL Normal 81.0-99.0 [facility] Comment on above: Performed By: #### C BC ####[facility] [address] [place] [address] [place] Monocytes 0.6 103/ul Normal 0.3-0.8 [facility] Comment on above: Performed By: #### C BC ####[facility] [address] [place] [address] [place] Monocytes/100 leukocytes 6.2 % Normal 1.7-12.0 [facility] Comment on above: Performed By: #### C BC ####[facility] [address] [place] [address] [place] Neutrophils 7.6 103/ul Critically high 1.4-6.5 [facility] Comment on above: Performed By: #### C BC ####[facility] [address] [place] [address] [place] Neutrophils/100 WBC Auto (Bld) 75.1 % Critically high 43.0-75.0 [facility] Comment on above: Performed By: #### C BC ####[facility] [address] [place], [place] [address]Gerken [place] Platelet mean volume (PMV) 10.5 fL Normal 9.5-13.5 [facility] Comment on above: Performed By: #### C BC ####[facility] Fu[address] [place] Platelets 248 103/ul Normal 150-450 [facility] Comment on above: Performed By: #### C BC ####[facility] Enndvszurj[address] [place] WBC (Leukocytes) 10.1 103/ul Normal 4.0-11.0 [facility] Comment on above: Performed By: #### C BC ####[facility] [address] [place] [address] [place] INFLUENZA A AND B AGon 05-10 INFLUANE SEE BELOW Normal [facility] Comment on above: Result Comment: Nega tive for Flu A protein angiten. Infection due to Flu A cannot be ruled out. Flu A angiten in the sample may be below the detection limit of the test. Performed By: #### I NFLUAB ####[facility] [id number] [place] [address] Marlene INFLUBNEGH SEE BELOW Normal The [facility] Comment on above: Result Comment: Nega tive for Flu B protein antigen. Infection due to Flu B cannot be ruled out. Flu B antigen in the sample may be below the detection limit of the test. Performed By: #### I NFLUAB ####[facility] [address] [place] [address] Marlene INFLUENZA A AG Negative Normal NEGATIVE SEE COMMENT The [facility] Comment on above: Performed By: #### I NFLUAB ####[facility] [address] [place] [address] Marlene INFLUENZA B AG Negative Normal NEGATIVE SEE COMMENT [facility] Comment on above: Performed By: #### I NFLUAB ####[facility] [address] [place] [address] Marlene INTERNAL CONTROLS Within Normal Limits Normal Wi thin Normal Limits [facility] Comment on above: Performed By: #### I NFLUAB ####[facility] [address] [place] [address] Marlene LIPASEon 06-03-2017 Lipase 61.0 U/L Normal 23.0-300.0 [facility] Comment on above: Performed By: #### L IPA CMP, SAMANTA ####[facility] Drygwtravi[address] Marlene PROF 14(COMP METB)on 018 Alanine aminotransferase (ALT) 42 U/L Normal 9-52 [facility] Comment on above: Performed By: #### L IPA CMP, SAMANTA ####[facility] Uahlft[address]wsy[address] Marlene Albumin 4.8 g/dL Normal 3.5-5.0 [facility] Comment on above: Performed By: #### L STEWART CMP, SAMANTA ####[facility] [address] [place] [address] Marlene Albumin/Globulin Ratio 1.3 {ratio} Normal T [facility] Comment on above: Performed By: #### L IPA CMP, SAMANTA ####[facility] Gcuudmfwvx[address] Marlene Alkaline phosphatase (ALP) 80 U/L Normal 38-126 [facility] Comment on above: Performed By: #### L IPA CMP, SAMANTA ####[facility] Klwozmpqjw[address] Marlene Anion gap 16.1 mmol/L Normal [facility] Comment on above: Performed By: #### L IPA CMP, SAMANTA ####[facility] Fpxgg[address]vzax75[address] Marlene Aspartate aminotransferase (AST) 18 U/L Normal 14-36 [facility] Comment on above: Performed By: #### L IPA CMP, SAMANTA ####[facility] Ojpxmforms[address] Marlene Bilirubin Ql (U) 0.6 mg/dL Normal 0.2-1.3 [facility] Comment on above: Performed By: #### L IPA CMP, SAMANTA ####[facility] [address] [place]lene BUN/Creatinine Ratio 14.1 mg/mg Normal [facility] Comment on above: Performed By: #### L IPA CMP, SAMANTA ####[facility] Txcdfxezdz49[address] Marlene Calcium 9.5 mg/dL Normal 8.4-10.2 [facility] Comment on above: Performed By: #### L IPA CMP, SAMANTA ####[facility] Xadaeypgsc1631 [address] Marlene Chloride 108 mmol/L Critically high 98-107 [facility] Comment on above: Performed By: #### L IPA CMP, SAMANTA ####[facility] [address] [place] [address] Marlene CO2 21.0 mmol/L Critically low 22.0-30.0 [facility] Comment on above: Performed By: #### L IPA CMP, SAMANTA ####[facility] [address] [place] [address] Marlene Creatinine 0.93 mg/dL Normal 0.52-1.04 [facility] Comment on above: Performed By: #### L IPA CMP, SAMANTA ####[facility] [address] [place] [address] Marlene eGFR (non-black) mL/min/{1.73_m2} Normal >=60 [facility] Comment on above: Performed By: #### L IPA CMP, SAMANTA ####[facility] Tnbzxrszgr[address] Marlene Globulin 3.5 g/dL Normal [facility] Comment on above: Performed By: #### L IPA CMP, SAMANTA ####[facility] Fjpibzklas[address] Marlene Glucose mass conc 144 mg/dL Critically high 74-106 [facility] Comment on above: Performed By: #### L IPA CMP, SAMANTA ####[facility] [address] [place] [address] Marlene Potassium molar conc 3.7 mmol/L Normal 3.4-5.0 [facility] Comment on above: Performed By: #### L IPA, CMP, SAMANTA ####[facility] Vziwoc[address]wt[address] Marlene Protein 8.3 g/dL Critically high 6.1-8.2 [facility] Comment on above: Performed By: #### L IPA, CMP, SAMANTA ####[facility] Wz[address]ak[address] Marlene Sodium 142 mmol/L Normal 137-145 [facility] Comment on above: Performed By: #### L IPA, CMP, SAMANTA ####[facility] L[address] Marlene Urea nitrogen 13.0 mg/dL Normal 7.0-17.0 [facility] Comment on above: Performed By: #### L IPA, CMP, SAMANTA ####[facility] Gcev[address] Marlene XR CHEST 2 Von 05-29-2017 XR CHEST 2 V [address] [place] [address] Patient: ALMA DELIA PEARL Exam Date: 05/29/2017DOB: 1985 Gender:F : MR JUAN DIEGO MANZANARES . Admission #: [id number] : MRS. KEILA LYNCH Order #: [id number] HERE TO VIEW EXAM RADIOLOGY REPORT PROCEDURE: [...] M.D. on 05/29/2017 at 16:52 Normal [facility] URon 05-25-2017 , QUAL Negative Normal NEGATIVE [facility] Comment on above: Performed By: #### P REGU ####[facility] [address] [place], [place] [address]Yerrfk Marlene STREP SCREEN CONFIRMATIONon 05-25-2017 STREP SCREEN CONFIRMATION Culture Observations: FINAL SCANNED RESULT TO FOLLOW IN [facility] Normal [facility] Comment on above: Performed By: #### S SCRN, STREPC ####[facility] [address] [place], [place] [address]Ppqbsm Marlene STREPT SCREENon 05-25-2017 STREP SCREEN A Negative Normal NEGATIVE [facility] Comment on above: Performed By: #### S SCRN, STREPC ####[facility] [address] [place], [place] [address]Zmyxtg Marlene Vital Signs Date Time Vital Sign Value Performing Clinician Facility 01-13-2024 10:33-0400 Diastolic blood pressure 74 mm[Hg] KYUNG BEVERLY [facility] 01-13-2024 10:33-0400 Mean blood pressure 87 mm[Hg] KYUNG BEVERLY [facility] 01-13-2024 10:33-0400 Systolic blood pressure 113 mm[Hg] KYUNG BEVERLY [facility] 01-13-2024 10:16-0400 Blood Pressure Location KYUNG BEVERLY [facility] 01-13-2024 10:16-0400 Diastolic blood pressure 102 mm[Hg] KYUNG BEVERLY [facility] 01-13-2024 10:16-0400 Heart rate 67 /min KYUNG BEVERLY [facility] 01-13-2024 10:16-0400 Respiratory rate 16 /min KYUNG PAUL [facility] 01-13-2024 10:16-0400 Systolic blood pressure 135 mm[Hg] KYUNG PAUL [facility] 01-05-2024 14:28-0400 Diastolic blood pressure 68 mm[Hg] Daron Mourany [facility] [place] 01-05-2024 14:28-0400 Heart rate 72 /min Daron Mourany [facility] 01-05-2024 14:28-0400 Systolic blood pressure 117 mm[Hg] Daron Mourany [facility] 12-21-2023 16:19-0400 Heart rate 77 /min Daron Mourany [facility] 12-21-2023 16:19-0400 SaO2% (BldA) [Mass fraction] 97 % Daron Mourany [facility] 12-21-2023 16:18-0400 Diastolic blood pressure 79 mm[Hg] Daron Mourany [facility] 12-21-2023 16:18-0400 Mean blood pressure 96 mm[Hg] Daron Mourany [facility] 12-21-2023 16:18-0400 Systolic blood pressure 131 mm[Hg] Daron Mourany [facility] 12-21-2023 16:18-0400 Respiratory rate 16 /min Daron Mourany [facility] 12-21-2023 16:00-0400 Body temperature 97.7 [degF] Daron Mourany [facility] 12-21-2023 15:30-0400 Heart rate 86 /min Daron Mourany [facility] 12-21-2023 15:30-0400 SaO2% (BldA) [Mass fraction] 97 % Daron Mourany [facility] 12-21-2023 15:30-0400 Diastolic blood pressure 70 mm[Hg] Daron Mourany [facility] 12-21-2023 15:30-0400 Mean blood pressure 83 mm[Hg] Daron Mourany [facility] 12-21-2023 15:30-0400 Systolic blood pressure 109 mm[Hg] Daron Mourany [facility] 12-21-2023 15:29-0400 Respiratory rate 16 /min Daron Mourany [facility] 12-21-2023 15:20-0400 Blood Pressure Location Daron Mourany [facility] 12-21-2023 15:20-0400 Diastolic blood pressure 50 mm[Hg] Daron Mourany [facility] 12-21-2023 15:20-0400 Heart rate 87 /min Daron Mourany [facility] 12-21-2023 15:20-0400 Mean blood pressure 73 mm[Hg] Daron Mourany [facility] 12-21-2023 15:20-0400 Respiratory rate 15 /min Daron Mourany [facility] 12-21-2023 15:20-0400 SaO2% (BldA) [Mass fraction] 98 % Daron Mourany [facility] 12-21-2023 15:20-0400 Systolic blood pressure 118 mm[Hg] Daron Mourany [facility] 12-21-2023 15:10-0400 Blood Pressure Location Daron Mourany [facility] 12-21-2023 15:10-0400 Mean blood pressure 94 mm[Hg] Daron Mourany [facility] 12-21-2023 15:10-0400 Respiratory rate 14 /min Daron Mourany [facility] 12-21-2023 15:05-0400 Blood Pressure Location Daron Mourany [facility] 12-21-2023 15:05-0400 Mean blood pressure 81 mm[Hg] Daron Mourany [facility] 12-21-2023 15:05-0400 Respiratory rate 15 /min Daron Mourany [facility] 12-21-2023 14:53-0400 Body temperature 97.88 [degF] Daron Mourany [facility] 12-21-2023 14:40-0400 Respiratory rate 15 /min Daron Mourany [facility] 12-21-2023 12:16-0400 Mean blood pressure 85 mm[Hg] Daron Mourany [facility] 12-21-2023 12:14-0400 Body temperature 97.52 [degF] Daron Mourany [facility] 12-16-2023 10:33-0400 Blood Pressure Location Daron Mourany [facility] 12-16-2023 10:33-0400 Diastolic blood pressure 75 mm[Hg] Daron Mourany [facility] 12-16-2023 10:33-0400 Heart rate 77 /min Daron Mourany [facility] 12-16-2023 10:33-0400 Mean blood pressure 88 mm[Hg] Daron Mourany [facility] 12-16-2023 10:33-0400 Systolic blood pressure 114 mm[Hg] Daron Mourany [facility] 12-16-2023 10:32-0400 Heart rate 70 /min Daron Mourany [facility] 12-16-2023 10:32-0400 Respiratory rate 18 /min Daron Mourany [facility] 12-16-2023 10:32-0400 SaO2% (BldA) [Mass fraction] 96 % Daron Mourany [facility] 12-16-2023 10:32-0400 Body temperature 97.7 [degF] Daron Mourany [facility] 12-16-2023 10:32-0400 Blood Pressure Location Daron Mourany [facility] 12-16-2023 10:32-0400 Diastolic blood pressure 76 mm[Hg] Daron Mourany [facility] 12-16-2023 10:32-0400 Mean blood pressure 91 mm[Hg] Daron Mourany [facility] 12-16-2023 10:32-0400 Systolic blood pressure 120 mm[Hg] Daron Mourany [facility] 12-09-2023 08:57-0400 Diastolic blood pressure 79 mm[Hg] Daron Mourany [facility] [place] 12-09-2023 08:57-0400 Heart rate 85 /min Daron Mourany [facility] [place] 12-09-2023 08:57-0400 Systolic blood pressure 108 mm[Hg] Daron Mourany [facility] [place] 12-02-2023 10:54-0400 Body temperature 98.06 [degF] Daron Mourany [facility] 12-02-2023 10:54-0400 Diastolic blood pressure 69 mm[Hg] Daron Mourany [facility] 12-02-2023 10:54-0400 Heart rate 78 /min Daron Mourany [facility] 12-02-2023 10:54-0400 Systolic blood pressure 100 mm[Hg] Daron Mourany [facility] 11-29-2023 20:28-0400 Body temperature 97.88 [degF] Kaylinn Dokken [facility] 11-29-2023 20:28-0400 Diastolic blood pressure 78 mm[Hg] Kaylinn Dokken [facility] 11-29-2023 20:28-0400 Heart rate 92 /min Kaylinn Dokken [facility] 11-29-2023 20:28-0400 Respiratory rate 18 /min Kaylinn Dokken [facility] 11-29-2023 20:28-0400 SaO2% (BldA) [Mass fraction] 97 % Kaylinn Dokken [facility] 11-29-2023 20:28-0400 Systolic blood pressure 125 mm[Hg] Celena Dias [facility] 11-28-2023 20:59-0400 Body temperature 97.88 [degF] James Kaushik [facility] 11-28-2023 20:59-0400 Diastolic blood pressure 68 mm[Hg] James Kaushik [facility] 11-28-2023 20:59-0400 Heart rate 82 /min James Kaushik [facility] 11-28-2023 20:59-0400 Respiratory rate 18 /min James Kaushik [facility] 11-28-2023 20:59-0400 SaO2% (BldA) [Mass fraction] 98 % James Kaushik [facility] 11-28-2023 20:59-0400 Systolic blood pressure 115 mm[Hg] James Kaushik [facility] 11-28-2023 19:08-0400 Body temperature 97.52 [degF] James Kaushik [facility] 11-28-2023 19:08-0400 Diastolic blood pressure 80 mm[Hg] James Kaushik [facility] 11-28-2023 19:08-0400 Heart rate 95 /min James Kaushik [facility] 11-28-2023 19:08-0400 Respiratory rate 16 /min James Kaushik [facility] 11-28-2023 19:08-0400 SaO2% (BldA) [Mass fraction] 97 % James Kaushik [facility] 11-28-2023 19:08-0400 Systolic blood pressure 140 mm[Hg] James Kaushik [facility] 09-22-2023 09:19-0400 Blood Pressure Location Irasema Zacarias [facility] 09-22-2023 09:19-0400 Body temperature 98.06 [degF] Irasema Zacarias [facility] 09-22-2023 09:19-0400 Diastolic blood pressure 76 mm[Hg] Irasema Zacarias [facility] 09-22-2023 09:19-0400 Heart rate 78 /min Irasema Zacarias [facility] 09-22-2023 09:19-0400 SaO2% (BldA) [Mass fraction] 97 % Irasema Zacarias [facility] 09-22-2023 09:19-0400 Systolic blood pressure 118 mm[Hg] Irasema Zacarias [facility] 07-25-2023 21:05-0400 Diastolic blood pressure 69 mm[Hg] Daron George [facility] 07-25-2023 21:05-0400 Heart rate 80 /min Daron George [facility] 07-25-2023 21:05-0400 Respiratory rate 18 /min Daron George [facility] 07-25-2023 21:05-0400 SaO2% (BldA) [Mass fraction] 96 % Daron Zaragozae [facility] 07-25-2023 21:05-0400 Systolic blood pressure 103 mm[Hg] Daron Doris [facility] 07-25-2023 18:32-0400 Body temperature 97.7 [degF] Daron Doris [facility] 07-25-2023 18:32-0400 Diastolic blood pressure 89 mm[Hg] Daron George [facility] 07-25-2023 18:32-0400 Heart rate 83 /min Daron George [facility] 07-25-2023 18:32-0400 Respiratory rate 18 /min Daron George [facility] 07-25-2023 18:32-0400 SaO2% (BldA) [Mass fraction] 96 % Daron George [facility] 07-25-2023 18:32-0400 Systolic blood pressure 131 mm[Hg] Daron George [facility] 07-01-2023 12:05-0500 Blood Pressure Location WILLIE GALINDO [facility] [place] [facility] 07-01-2023 12:05-0500 Body temperature 97.88 [degF] WILLIE GALINDO [facility] [place] [facility] 07-01-2023 12:05-0500 Diastolic blood pressure 82 mm[Hg] WILLIE GALINDO [facility] [place] [facility] 07-01-2023 12:05-0500 Heart rate 90 /min WILLIE GALINDO [facility] [place] [facility] 07-01-2023 12:05-0500 Respiratory rate 16 /min WILLIE GALINDO [facility] [place] [facility] 07-01-2023 12:05-0500 SaO2% (BldA) [Mass fraction] 97 % WILLIE GALINDO [facility] [place] [facility] 07-01-2023 12:05-0500 Systolic blood pressure 110 mm[Hg] WILLIE JSOIE [facility] [place] 05-20-2023 09:22-0500 Blood Pressure Location Aicha Dean [facility] 05-20-2023 09:22-0500 Body temperature 98.24 [degF] Aicha Dean [facility] 05-20-2023 09:22-0500 Diastolic blood pressure 70 mm[Hg] Aicha Dean [facility] 05-20-2023 09:22-0500 Heart rate 91 /min Aicha Dean [facility] 05-20-2023 09:22-0500 Respiratory rate 18 /min Aicha Dean [facility] 05-20-2023 09:22-0500 SaO2% (BldA) [Mass fraction] 97 % Aicha Dean [facility] 05-20-2023 09:22-0500 Systolic blood pressure 116 mm[Hg] Aicha Dean [facility] 04-06-2023 15:30-0500 Diastolic blood pressure 95 mm[Hg] James Faulkner [facility] 04-06-2023 15:30-0500 Heart rate 100 /min James Faulkner [facility] 04-06-2023 15:30-0500 Mean blood pressure 112 mm[Hg] James Faulkner [facility] 04-06-2023 15:30-0500 Respiratory rate 18 /min James Faulkner [facility] 04-06-2023 15:30-0500 SaO2% (BldA) [Mass fraction] 99 % James Kaushik [facility] 04-06-2023 15:30-0500 Systolic blood pressure 146 mm[Hg] James Faulkner [facility] 04-06-2023 13:57-0500 gluc 142 mg/dL James Faulkner [facility] 04-06-2023 13:57-0500 gluc James Kaushik [facility] 04-06-2023 13:50-0500 Body temperature 98.42 [degF] James Faulkner [facility] 04-06-2023 13:50-0500 Diastolic blood pressure 80 mm[Hg] James Faulkner [facility] 04-06-2023 13:50-0500 Heart rate 108 /min Jamesnithin Faulkner [facility] 04-06-2023 13:50-0500 Respiratory rate 18 /min Jamesnithin Faulkner [facility] 04-06-2023 13:50-0500 SaO2% (BldA) [Mass fraction] 96 % James Faulkner [facility] 04-06-2023 13:50-0500 Systolic blood pressure 123 mm[Hg] James Faulkner [facility] 03-19-2023 17:00-0500 Diastolic blood pressure 55 mm[Hg] James Faulkner [facility] 03-19-2023 17:00-0500 Heart rate 77 /min James Faulkner [facility] 03-19-2023 17:00-0500 Mean blood pressure 71 mm[Hg] James Faulkner [facility] 03-19-2023 17:00-0500 Respiratory rate 16 /min James Kaushik [facility] 03-19-2023 17:00-0500 Systolic blood pressure 103 mm[Hg] James Kaushik [facility] 03-19-2023 16:00-0500 Diastolic blood pressure 57 mm[Hg] James Kaushik [facility] 03-19-2023 16:00-0500 Heart rate 68 /min James Kaushik [facility] 03-19-2023 16:00-0500 Mean blood pressure 75 mm[Hg] James Kaushik [facility] 03-19-2023 16:00-0500 SaO2% (BldA) [Mass fraction] 96 % James Kaushik [facility] 03-19-2023 13:39-0500 Body temperature 98.24 [degF] James Kaushik [facility] 03-19-2023 13:39-0500 Diastolic blood pressure 74 mm[Hg] James Kaushik [facility] 03-19-2023 13:39-0500 Heart rate 74 /min James Kaushik [facility] 03-19-2023 13:39-0500 Respiratory rate 18 /min James Kaushik [facility] 03-19-2023 13:39-0500 SaO2% (BldA) [Mass fraction] 97 % James Kaushik [facility] 03-19-2023 13:39-0500 Systolic blood pressure 112 mm[Hg] James Kaushik [facility] 03-14-2023 16:19-0500 Blood Pressure Location ANNABEL DAVID [facility] [place] [facility] 03-14-2023 16:19-0500 Body temperature 97.88 [degF] ANNABEL DAVID [facility] [place] [facility] 03-14-2023 16:19-0500 Diastolic blood pressure 80 mm[Hg] ANNABEL DAVID [facility] [place] [facility] 03-14-2023 16:19-0500 Heart rate 90 /min ANNABEL DAVID [facility] [place] [facility] 03-14-2023 16:19-0500 Respiratory rate 20 /min ANNABEL DAVID [facility] [place] [facility] 03-14-2023 16:19-0500 SaO2% (BldA) [Mass fraction] 98 % ANNABEL DAVID [facility] [place] [facility] 03-14-2023 16:19-0500 Systolic blood pressure 136 mm[Hg] ANNABEL DAVID [facility] [place] [facility] 12-21-2022 12:57-0400 Blood Pressure Location Irasema Missler [facility] 12-21-2022 12:57-0400 Body temperature 97.34 [degF] Irasema Missler [facility] 12-21-2022 12:57-0400 Diastolic blood pressure 78 mm[Hg] Irasema Missler [facility] 12-21-2022 12:57-0400 Heart rate 80 /min Irasema Missler [facility] 12-21-2022 12:57-0400 SaO2% (BldA) [Mass fraction] 98 % Irasema Missler [facility] 12-21-2022 12:57-0400 Systolic blood pressure 116 mm[Hg] Irasema Zacarias [facility] 10-21-2022 18:30-0400 Diastolic blood pressure 85 mm[Hg] Roshan Janak [facility] 10-21-2022 18:30-0400 Heart rate 63 /min Roshan Janak [facility] 10-21-2022 18:30-0400 Mean blood pressure 98 mm[Hg] Roshan Janak [facility] 10-21-2022 18:30-0400 Respiratory rate 17 /min Roshan Janak [facility] 10-21-2022 18:30-0400 SaO2% (BldA) [Mass fraction] 96 % Roshan Janak [facility] 10-21-2022 18:30-0400 Systolic blood pressure 123 mm[Hg] Roshan Janak [facility] 10-21-2022 18:00-0400 Diastolic blood pressure 86 mm[Hg] Roshan Janak [facility] 10-21-2022 18:00-0400 Heart rate 71 /min Roshan Janak [facility] 10-21-2022 18:00-0400 Respiratory rate 18 /min Roshan Janak [facility] 10-21-2022 18:00-0400 SaO2% (BldA) [Mass fraction] 99 % Roshan Janak [facility] 10-21-2022 18:00-0400 Systolic blood pressure 122 mm[Hg] Roshan Janak [facility] 10-21-2022 17:00-0400 Heart rate 73 /min Roshan Janak [facility] 10-21-2022 17:00-0400 Mean blood pressure 100 mm[Hg] Roshan Briceno [facility] 10-21-2022 17:00-0400 SaO2% (BldA) [Mass fraction] 98 % Roshan Briceno [facility] 10-21-2022 17:00-0400 Systolic blood pressure 127 mm[Hg] Roshan Briceno [facility] 10-21-2022 15:58-0400 Body temperature 98.06 [degF] Roshan Briceno [facility] 10-21-2022 15:58-0400 Heart rate 74 /min Roshan Briceno [facility] 08-18-2022 11:00-0400 Body height 175.26 cm Michael Guzman Other [facility] [employer] Other 08-18-2022 11:00-0400 Body mass index (BMI) [Ratio] 44.89 kg/m2 Michael Guzman Other [facility] Other 08-18-2022 11:00-0400 Body weight 137.89 kg Michael Guzman Other [facility] Other 08-18-2022 11:00-0400 Diastolic blood pressure 85 mm[Hg] Michael Guzman Other [facility] Other 08-18-2022 11:00-0400 Systolic blood pressure 125 mm[Hg] Michael Guzman Other [facility] Other 05-23-2022 09:46-0500 Diastolic blood pressure 65 mm[Hg] Judith Delacruz [facility] 05-23-2022 09:46-0500 Heart rate 90 /min [facility] 05-23-2022 09:46-0500 Mean blood pressure 77 mm[Hg] [facility] 05-23-2022 09:46-0500 Respiratory rate 18 /min [facility] 05-23-2022 09:46-0500 SaO2% (BldA) [Mass fraction] 95 % [facility] 05-23-2022 09:46-0500 Systolic blood pressure 101 mm[Hg] [facility] 05-23-2022 09:07-0500 Diastolic blood pressure 62 mm[Hg] [facility] 05-23-2022 09:07-0500 Heart rate 92 /min [facility] 05-23-2022 09:07-0500 Mean blood pressure 76 mm[Hg] [facility] 05-23-2022 09:07-0500 Respiratory rate 18 /min [facility] 05-23-2022 09:07-0500 SaO2% (BldA) [Mass fraction] 96 % [facility] 05-23-2022 09:07-0500 Systolic blood pressure 105 mm[Hg] [facility] 05-23-2022 08:00-0500 Diastolic blood pressure 69 mm[Hg] [facility] 05-23-2022 08:00-0500 Heart rate 96 /min [facility] 05-23-2022 08:00-0500 Mean blood pressure 83 mm[Hg] [facility] 05-23-2022 08:00-0500 Systolic blood pressure 111 mm[Hg] [facility] 05-23-2022 07:26-0500 Hourly Rounding [facility] 05-23-2022 06:50-0500 Body temperature 98.96 [degF] Judith Delacruz [facility] 03-31-2022 14:25-0500 Body weight 134.72 kg Kimberly Velazquez MD Work Phone: [facility] 03-31-2022 14:25-0500 Diastolic blood pressure 89 mm[Hg] Kimberly Velazquez MD Work Phone: [facility] 03-31-2022 14:25-0500 Heart rate 84 /min Kimberly Velazquez MD Work Phone: [facility] 03-31-2022 14:25-0500 Systolic blood pressure 125 mm[Hg] Kimberly Velazquez MD Work Phone: [facility] 12-31-2021 21:59-0400 Diastolic blood pressure 78 mm[Hg] Daniel Logan [facility] 12-31-2021 21:59-0400 Heart rate 90 /min Daniel Logan [facility] 12-31-2021 21:59-0400 Hourly Rounding Daniel Logan [facility] 12-31-2021 21:59-0400 Nursing Progress Note Reason Other: Pt resting on cart. Denies any needs at this time. Daniel Logan [facility] 12-31-2021 21:59-0400 Respiratory rate 18 /min Daniel Logan [facility] 12-31-2021 21:59-0400 SaO2% (BldA) [Mass fraction] 97 % Daniel Logan [facility] 12-31-2021 21:59-0400 Systolic blood pressure 126 mm[Hg] Daniel Logan [facility] 12-31-2021 20:59-0400 Diastolic blood pressure 74 mm[Hg] Daniel Logan [facility] 12-31-2021 20:59-0400 Heart rate 102 /min Daniel Logan [facility] 12-31-2021 20:59-0400 Hourly Rounding Daniel Logan [facility] 12-31-2021 20:59-0400 Nursing Progress Note Reason Other: Pt mediciated per orders. Denies any needs at this time. Daniel Logan [facility] 12-31-2021 20:59-0400 Respiratory rate 18 /min Daniel Logan [facility] 12-31-2021 20:59-0400 SaO2% (BldA) [Mass fraction] 98 % Daniel Logan [facility] 12-31-2021 20:59-0400 Systolic blood pressure 113 mm[Hg] Daniel Logan [facility] 12-31-2021 19:50-0400 Body temperature 98.6 [degF] Daniel Logan [facility] 12-31-2021 19:50-0400 Diastolic blood pressure 77 mm[Hg] Daniel Logan [facility] 12-31-2021 19:50-0400 Heart rate 99 /min Daniel Logan [facility] 12-31-2021 19:50-0400 Respiratory rate 18 /min Daniel Logan [facility] 12-31-2021 19:50-0400 SaO2% (BldA) [Mass fraction] 98 % Daniel Logan [facility] 12-31-2021 19:50-0400 Systolic blood pressure 121 mm[Hg] Daniel Logan [facility] 12-25-2021 00:47-0400 Diastolic blood pressure 90 mm[Hg] Kaylinn Dokken [facility] 12-25-2021 00:47-0400 Heart rate 74 /min Kaylinn Dokken [facility] 12-25-2021 00:47-0400 Nursing Progress Note Reason Other: pt states pain tolerable at this time. a&o x4, resp euqual and non labored, denies needs Kaylinn Dokken [facility] 12-25-2021 00:47-0400 Respiratory rate 16 /min Kaylinn Dokken [facility] 12-25-2021 00:47-0400 SaO2% (BldA) [Mass fraction] 98 % Kaylinn Dokken [facility] 12-25-2021 00:47-0400 Systolic blood pressure 137 mm[Hg] Kaylinn Dokken [facility] 12-24-2021 23:00-0400 Nursing Progress Note Reason Other: pt out of dept for ct Kaylinn Dokken [facility] 12-24-2021 21:36-0400 Body temperature 98.24 [degF] Kaylinn Dokken [facility] 12-24-2021 21:36-0400 Diastolic blood pressure 87 mm[Hg] Kaylinn Dokken [facility] 12-24-2021 21:36-0400 Heart rate 93 /min Kaylinn Dokken [facility] 12-24-2021 21:36-0400 Respiratory rate 18 /min Kaylinn Dokken [facility] 12-24-2021 21:36-0400 SaO2% (BldA) [Mass fraction] 97 % Celena Dias [facility] 12-24-2021 21:36-0400 Systolic blood pressure 141 mm[Hg] Celena Dias [facility] 11-11-2021 08:51-0400 Body height 175.26 cm James V Masnyj Work Phone: [facility] Work Phone: 11-11-2021 08:51-0400 Body mass index (BMI) [Ratio] 44.15 kg/m2 James V Masnyj Work Phone: [facility] Work Phone: 11-11-2021 08:51-0400 Body surface area Derived from formula 2.45 m2 James V Masnyj Work Phone: [facility] Work Phone: 11-11-2021 08:51-0400 Body weight 135.63 kg James V Masnyj Work Phone: [facility] Work Phone: 11-03-2021 13:13-0400 Blood Pressure Location Lacey LAZO [facility] 11-03-2021 13:13-0400 Body temperature 97.52 [degF] Lacey LAZO [facility] 11-03-2021 13:13-0400 Diastolic blood pressure 74 mm[Hg] Lacey LAZO [facility] 11-03-2021 13:13-0400 Heart rate 80 /min Lacey LAZO [facility] 11-03-2021 13:13-0400 SaO2% (BldA) [Mass fraction] 98 % Lacey LAZO [facility] 11-03-2021 13:13-0400 Systolic blood pressure 116 mm[Hg] Lacey LAZO [facility] 11-01-2021 22:00-0400 Blood Pressure Location Kaylinn Dokken [facility] 11-01-2021 22:00-0400 Diastolic blood pressure 72 mm[Hg] Kaylinn Dokken [facility] 11-01-2021 22:00-0400 Heart rate 80 /min Kaylinn Dokken [facility] 11-01-2021 22:00-0400 Hourly Rounding Kaylinn Dokken [facility] Comment on above: Result Comment: Patient is ready to go h ome. 11-01-2021 22:00-0400 Mean blood pressure 86 mm[Hg] Kaylinn Dokken [facility] 11-01-2021 22:00-0400 Respiratory rate 18 /min Kaylinn Dokken [facility] 11-01-2021 22:00-0400 SaO2% (BldA) [Mass fraction] 98 % Kaylinn Dokken [facility] 11-01-2021 22:00-0400 Systolic blood pressure 114 mm[Hg] Kaylinn Dokken [facility] 11-01-2021 21:00-0400 Diastolic blood pressure 74 mm[Hg] Kaylinn Dokken [facility] 11-01-2021 21:00-0400 Heart rate 86 /min Kaylinn Dokken [facility] 11-01-2021 21:00-0400 Hourly Rounding Kaylinn Dokken [facility] 11-01-2021 21:00-0400 Mean blood pressure 89 mm[Hg] Kaylinn Dokken [facility] 11-01-2021 21:00-0400 Respiratory rate 20 /min Kaylinn Dokken [facility] 11-01-2021 21:00-0400 SaO2% (BldA) [Mass fraction] 97 % Kaylinn Dokken [facility] 11-01-2021 21:00-0400 Systolic blood pressure 120 mm[Hg] Kaylinn Dokken [facility] 11-01-2021 19:07-0400 Body temperature 97.88 [degF] Kaylinn Dokken [facility] 11-01-2021 19:07-0400 Diastolic blood pressure 78 mm[Hg] Kaylinn Dokken [facility] 11-01-2021 19:07-0400 Heart rate 90 /min Kaylinn Dokken [facility] 11-01-2021 19:07-0400 Respiratory rate 17 /min Kaylinn Dokken [facility] 11-01-2021 19:07-0400 SaO2% (BldA) [Mass fraction] 96 % Celena Dias [facility] 11-01-2021 19:07-0400 Systolic blood pressure 116 mm[Hg] Celena Dais [facility] 08-25-2021 14:41-[address] [facility] 08-25-2021 14:41-0400 Diastolic blood pressure 68 mm[Hg] [facility] 08-25-2021 14:41-0400 Heart rate 86 /min [facility] 08-25-2021 14:41-0400 Respiratory rate 16 /min [facility] 08-25-2021 14:41-0400 SaO2% (BldA) [Mass fraction] 99 % [facility] 08-25-2021 14:41-0400 Systolic blood pressure 120 mm[Hg] [facility] Encounters Encounter Date Encounter Type Care Provider Facility Start: 09-25-2024 ambulatory Irasema Zacarias Facility:[facility] Start: 01-13-2024 End: 01-13-2024 ambulatory YOLANDA PAUL Facility:[facility] [place] Start: 01-13-2024 End: 01-13-2024 Patient encounter procedure KYUNG PAUL [facility] Start: 01-05-2024 End: 01-05-2024 ambulatory Daron Hernandez Facility:[facility] Start: 01-05-2024 End: 01-05-2024 Patient encounter procedure Daron Hernandez [facility] Start: 01-02-2024 End: 01-02-2024 ambulatory KEYLA GUSMAN Not Available Start: 12-26-2023 End: 12-26-2023 ambulatory SAMANTA CASTELLANOS Not Available Start: 12-21-2023 End: 12-21-2023 Admission to same day surgery center Daron Hernandez [facility] Start: 12-21-2023 ambulatory Daron Hernandez Facilit y:[facility] Start: 12-16-2023 End: 12-16-2023 ambulatory Daron Hernandez Facility:[facility] Start: 12-16-2023 End: 12-16-2023 Patient encounter procedure Daron Hernandez [facility] Start: 12-09-2023 End: 12-09-2023 ambulatory Daron Hernandez Facility:[facility] Start: 12-09-2023 End: 12-09-2023 Patient encounter procedure Daron Hernandez [facility] Start: 12-06-2023 End: 12-06-2023 ambulatory SAMANTA CASTELLANOS Not Available Start: 12-06-2023 ambulatory Aicha Butts y:[facility] Start: 12-02-2023 End: 12-02-2023 ambulatory Daron E. Noahy Facility:[facility] Start: 12-02-2023 End: 12-02-2023 Patient encounter procedure Daron Zamoray [facility] Start: 12-01-2023 End: 12-01-2023 ambulatory SAMANTA CASTELLANOS Not Available Start: 11-30-2023 End: 11-30-2023 ambulatory SAMANTA EMANUEL Not Available Start: 11-29-2023 End: 11-29-2023 Emergency department patient visit Celena Larios Dotobiassusan [facility] Start: 11-28-2023 End: 11-28-2023 Emergency department patient visit James Faulkner [facility] Start: 11-25-2023 ambulatory Aicha Butts y:[facility] Start: 11-23-2023 End: 11-23-2023 ambulatory SAMANTA CASTELLANOS Not Available Start: 11-01-2023 End: 11-01-2023 ambulatory JOHN PIERCE Facility:[facility] Start: 10-26-2023 Refill Edmundo tilley MD Work Phone: Endocrinology Comment on above: Refill Request Start: 10-17-2023 End: 10-17-2023 ambulatory Irasema Zacarias Facility:[facility] Start: 10-17-2023 End: 10-17-2023 Patient encounter procedure Irasema Zacarias [facility] Start: 10-11-2023 End: 10-11-2023 ambulatory MICHAELA RILEY Not Available Start: 09-22-2023 End: 09-22-2023 ambulatory Irasema Zacarias Facility:[facility] Start: 09-22-2023 End: 09-22-2023 Patient encounter procedure Irasema Zacarias [facility] Start: 09-22-2023 End: 09-22-2023 Well adult monitoring check done Irasema Zacarias [facility] Start: 08-30-2023 End: 08-30-2023 ambulatory KEYLA GUSMAN Not Available Start: 08-26-2023 ambulatory Edmundo tilley MD Work Phone: Endocrinology Comment on above: Mounjaro 5 mg Start: 07-25-2023 End: 07-25-2023 Emergency department patient visit Daron George [facility] Start: 07-06-2023 End: 07-06-2023 ambulatory KEILA LYNCH Facility:[facility] Start: 07-01-2023 End: 07-01-2023 ambulatory WILLIE GALINDO Facility[facility] Start: 07-01-2023 End: 07-01-2023 Patient encounter procedure WILLIE GALINDO [facility] Start: 07-01-2023 End: 07-01-2023 ambulatory EDMUNDO DEVLIN Facility:[facility] Start: 06-14-2023 End: 06-14-2023 ambulatory Irasema Zacarias Facility:[facility] Start: 06-03-2023 End: 06-03-2023 ambulatory Aicha Dean Facility:[facility] Start: 06-03-2023 End: 06-03-2023 Patient encounter procedure Aicha Dean [facility] Start: 05-23-2023 End: 05-23-2023 ambulatory HERI FITZGERALD Not Available Start: 05-20-2023 End: 05-20-2023 Lab Drop off Irasema Zacarias [facility] Start: 05-20-2023 End: 05-20-2023 ambulatory Irasema Zacarias Facility:[facility] Start: 05-20-2023 End: 05-20-2023 Patient encounter procedure Aicha Dean [facility] Start: 04-06-2023 End: 04-06-2023 Emergency department patient visit James Faulkner [facility] Start: 04-04-2023 End: 04-04-2023 ambulatory BAN Elida BENTLEY Not Available Start: 03-19-2023 End: 03-19-2023 Emergency department patient visit James Faulkner [facility] Start: 03-14-2023 End: 03-14-2023 ambulatory ANNABEL HERNANDEZ Facility:[facility] Start: 03-14-2023 End: 03-14-2023 Patient encounter procedure ANNABEL HERNANDEZ [facility] [place] Start: 03-14-2023 ambulatory Aicha Dean Facilit y:[facility] Start: 12-21-2022 End: 12-21-2022 Patient encounter procedure Irasema Quirozmarley [facility] Start: 12-21-2022 End: 12-21-2022 Well adult monitoring check done Irasema Jasmynekerrie Zacarias [facility] Start: 10-29-2022 End: 10-29-2022 ambulatory Michael Guzman Other [facility] Other Start: 10-29-2022 Office outpatient visit 15 minutes Michael WALLER [facility] Start: 10-28-2022 End: 10-28-2022 ambulatory Michael Guzman Other [facility] Other Start: 10-28-2022 Telephone encounter Michael Valdes [facility] Start: 10-22-2022 End: 10-22-2022 Lab Drop off Roshan Briceno [facility] Start: 10-21-2022 End: 10-21-2022 Emergency department patient visit Roshan Briceno [facility] Start: 09-13-2022 Telephone encounter Maricruz [facility] [place] Comment on above: Smoking Cessation Start: 09-10-2022 End: 09-10-2022 [facility] Susan Garcia PhD Work Phone: Endocrinology [facility] Comment on above: Psychological factor s affecting morbid obesity (HCC) (Primary Dx); Tobacco use disorder Start: 08-18-2022 End: 08-18-2022 ambulatory Michael Guzman Other [facility] Other Start: 08-18-2022 Office outpatient visit 15 minutes Michael WALLER [facility] Start: 07-22-2022 Refill Kimberly westbrook MD Work Phone: Endocrinology Start: 06-24-2022 End: 06-24-2022 ambulatory Kimberly Velazquez MD Work Phone: Endocrinology Comment on above: Class 3 severe obesi ty due to excess calories without serious comorbidity with body mass index (BMI) of 40.0 to 44.9 in adult (HCC) (Primary Dx); PCOS (polycystic ovarian syndrome); Type 2 diabetes mellitus without complication, without long-term current use of insulin (HCC) Start: 06-24-2022 End: 06-24-2022 Telemedicine consultation with patient Kimberly Velazquez MD Work Phone: [facility] Start: 06-21-2022 Telephone encounter Kimberly gonzales MD Work Phone: Endocrinology Comment on above: Prep for virtual vis it Start: 05-27-2022 Garfield westbrook MD Work Phone: Endocrinology Start: 05-23-2022 End: 05-23-2022 Emergency department patient visit Judith Delacruz [facility] Start: 05-11-2022 Refill Kimberly westbrook MD Work Phone: Endocrinology Start: 03-31-2022 End: 03-31-2022 Patient encounter procedure Kimberly Velazquez MD Work Phone: Endocrinology Comment on above: Abnormal glucose (Pr imary Dx); Class 3 severe obesity due to excess calories with serious comorbidity and body mass index (BMI) of 40.0 to 44.9 in adult (HCC); PCOS (polycystic ovarian syndrome) Start: 02-11-2022 End: 02-11-2022 Off-Site SAUD BLUM [facility] [place] Start: 12-31-2021 End: 12-31-2021 Emergency department patient visit Daniel Ford [facility] Start: 12-24-2021 End: 12-25-2021 Emergency department patient visit Celena Dias [facility] Start: 12-18-2021 Chart Update James walls Work Phone: [facility] Work Phone: Start: 11-24-2021 End: 11-24-2021 Lab Drop off Nerissa Rivera [facility] Start: 11-11-2021 Office outpatient ne w 60 minutes James Rodriguez Work Phone: [facility] Work Phone: Start: 11-03-2021 End: 11-03-2021 Patient encounter procedure Lacey LAZO [facility] Start: 11-01-2021 End: 11-01-2021 Emergency department patient visit Celena Larios Dobryn [facility] Start: 10-23-2021 End: 10-23-2021 Patient encounter procedure Liz Martinezd [facility] Start: 08-31-2021 End: 01-04-2022 Recurring Lacey LAZO [facility] Start: 08-25-2021 End: 08-25-2021 [facility] Start: 08-25-2021 End: 08-25-2021 Patient encounter [facility] [place] Start: 08-20-2021 End: 08-20-2021 Patient encounter procedure Lacey LAZO [facility] Start: 08-18-2021 Refill Mukund becker MD Work Phone: Pulmonary Medicine Comment on above: Refill Request Start: 08-18-2021 End: 08-18-2021 Patient encounter procedure Sharonda CORTEZ [facility] Start: 07-29-2021 End: 07-29-2021 Patient encounter procedure CHERIE VALENTIN [facility] Start: 07-07-2021 End: 07-07-2021 Emergency department patient visit Kanu Rudolph Facility:[facility] Start: 07-06-2021 End: 07-06-2021 ambulatory Kem Patel Facility:[facility] Start: 04-03-2021 End: 08-30-2021 Recurring Sharonda CORTEZ [facility] Start: 06-03-2017 End: 06-04-2017 Ambulatory SHAJI CHOE Facility:[facility] Start: 05-29-2017 End: 05-29-2017 Ambulatory ANTON HARMON Facility:[facility] Start: 05-25-2017 End: 05-25-2017 Ambulatory JAMES BLACKMON Facility:[facility] Procedures Date Procedure Procedure Detail Performing Clinician Start: 12-21-2023 Cyst of breast (disorder) Daron Zamorarose mary Start: 03-31-2022 Hemoglobin A1c/Hemoglobin.total in Blood Kimberly Velazquez MD Work Phone: Start: 02-01-2018 Colonoscopy CHERIE CO X Start: 06-01-2016 EGD & Colonoscopy KIP VALENTIN Start: 07-31-2014 EGD & Colooscopy MARICARMEN Gilbert VALENTIN Start: 04-28-2012 Colonoscopy CHERIE CO X Colonoscopy CHERIE COX Comment on above: x2 with Dr. Velasco x2 with Dr. Velasco Decompression of lum bar spine CHERIE VALENTIN laproscopy x3 CHERIE VALENTIN Tonsillectomy CHERIE VALENTIN Tonsillectomy Tonsillectomy( Confirmed ) CHERIE VALENTIN Plan of Treatment Date Care Activity Detail Author Start: 11-03-2030 Urine microalbumin profile DTaP,Tdap,Td Vaccine (2 - Td or Tdap) [facility] Start: 07-06-2024 Hepatitis B surface antibody level LDL Cholesterol [facility] Start: 01-08-2024 Influenza vaccination Influenz a Vaccine (Season Ended) [facility] Start: 01-04-2024 Hemoglobin A1c measurement HbA1C [facility] Start: 12-05-2023 End: 12-05-2023 Patient encounter procedure 12/05/2023 10:10 AM EDT Office Visit Endocrinology [id number] [place] [address] Edmundo Devlin MD [address] [place] [address] follow up Endocrinology Comment on above: follow up Start: 03-31-2023 3 comp foot exam completed DIABETIC FOOT EXAM [facility] Start: 03-31-2023 Diabetic foot examination Diabetic Foot Exam [facility] Start: 01-07-2023 Covid-19 Vaccine () Covid-19 Vaccine () [facility] Start: 01-07-2023 Influenza vaccination INFLUENZ A (Season Ended) [facility] Start: 10-11-2022 End: 12-11-2022 NICOTINE & METAB, UR NICOTINE & METAB, UR Lab Routine Tobacco use disorder Expected: 10/11/2022 (Approximate), Expires: 12/11/2022 [facility] Work Phone: Comment on above: Expected: 10/11/2022 (Approximate), Expires: 12/11/2022 Start: 10-11-2022 End: 12-11-2022 TOX SCREEN ROUT UR TOX SCREEN ROUT UR Lab Routine Psychological factors affecting morbid obesity (HCC) Expected: 10/11/2022 (Approximate), Expires: 12/11/2022 [facility] Work Phone: Comment on above: Expected: 10/11/2022 (Approximate), Expires: 12/11/2022 Start: 09-28-2022 Hemoglobin A1c/Hemoglobin.total in Blood HBA1C [facility] Start: 01-13-2022 DWAIN, Provider : Kerri Adkins, Status: Jayden, Time: 10:30 AM DWAIN, Provider: Kerri Adkins, Status: Jayden, Time: 10:30 AM [facility] Work Phone: Start: 01-07-2022 Influenza vaccination [facility] Start: 2015 HPV TESTING HPV TESTING [facility] Start: 2015 Screening for malign ant neoplasm of cervix HPV Testing [facility] Start: 12-23-2014 PAP TESTING PAP TESTING [facility] Start: 12-23-2014 Screening for malign ant neoplasm of cervix Pap Testing [facility] Start: 12-23-2012 Screening for malign ant neoplasm of cervix Cervical Cancer Screening [facility] Start: 04-30-2010 Hepatitis B surface antibody level LDL CHOLESTEROL [facility] Start: 2004 Hepatitis A Vaccine (1 of 2 - Risk 2-dose series) Hepatitis A Vaccine (1 of 2 - Risk 2-dose series) [facility] Start: 2004 Urine microalbumin profile DTAP,TDAP,TD (1 - Tdap) [facility] Start: 2003 ANNUAL PCP TEAM AFTER SCHOOL CAREGIVER ERIKA DISEASE VISIT ANNUAL PCP TEAM CHRONIC DISEASE VISIT [facility] Start: 2003 HIV SCREENING HIV SCREENING [facility] Start: 2003 HIV screening HIV Screening [facility] Start: 2003 MMR (1 of 2 - Risk 2-dose series) MMR (1 of 2 - Risk 2-dose series) [facility] Start: 1995 Glaucoma screening Dilated Retinal E xam [facility] Start: 1995 Hepatitis B screening URINE ALBUMIN:CREATININE RATIO [facility] Start: 1995 Hepatitis C antibody , confirmatory test DILATED RETINAL EXAM [facility] Start: 1995 Meningococcal B Vaccine: Consider Based On Risk (1 of 4 - Increased Risk) Meningococcal B Vaccine: Consider Based On Risk (1 of 4 - Increased Risk) [facility] Start: 1995 MENINGOCOCCAL B: Consider based on risk (1 of 4 - Increased Risk Bexsero 2-dose series) MENINGOCOCCAL B: Consider based on risk (1 of 4 - Increased Risk Bexsero 2-dose series) [facility] Start: 1991 PNEUMOCOCCAL (1 - PCV) PNEUMOCOCCAL (1 - PCV) [facility] Start: 1991 Pneumococcal vaccination Pneumococcal Vaccine (1 of 2 - PCV) [facility] Start: 1990 COVID-19 VACCINE (1) COVID-19 VACCIN E (1) [facility] Start: 1986 HEPATITIS A (1 of 2 - Risk 2-dose series) HEPATITIS A (1 of 2 - Risk 2-dose series) [facility] Start: 1985 COVID-19 VACCINE (#1) COVID-19 VACCI NE (#1) [facility] Hemoglobin A1c/Hemoglobin.total in Blood HEMOGLOBIN A1C (POC) Lab Routine Abnormal glucose Ordered: 03/31/2022 [facility] Work Phone: Comment on above: Or[facility]: [facility]31/[facility]22 [facility] Immunizations Immunization Date Immunization Notes Care Provider Fa victoria 11-03-2020 tetanus toxoid, reduced diphtheria toxoid, and acellular pertussis vaccine, adsorbed; Translations: [Boostrix (Tdap)] CHERIE VALENTIN [facility] 03-15-2018 influenza virus vaccine, unspecified formulation Edmundo Devlin MD Work Phone: [facility] 09-19-1997 measles, mumps and rubella virus vaccine Basem Jo [facility] 11-18-1988 Hib, unspecified formulation Basem Jo [facility] 01-29-1987 measles, mumps and rubella virus vaccine Basem Jo [facility] NEGATED: Highlighted row has not occurred!03-14-2023 influenza virus vaccine, unspecified formulation ANNABEL HERNANDEZ [facility] [place] Comment on above: Result Comment: massiel rgic to eggs NEGATED: Highlighted row has not occurred!09-23-2022 SARS-CoV-2 mRNA (tozinameran 5y-11y) vaccine Roshan Briceno [facility] NEGATED: Highlighted row has not occurred!09-30-2021 SARS-CoV-2 mRNA (tozinameran 5y-11y) vaccine Basem Jo [facility] NEGATED: Highlighted row has not occurred!09-22-2021 SARS-CoV-2 mRNA (tozinameran 5y-11y) vaccine Basem Jo [facility] NEGATED: Highlighted row has not occurred!09-01-2020 SARS-CoV-2 (COVID-19) mRNA-1273 vaccine CHERIE VALENTIN [facility] NEGATED: Highlighted row has not occurred!04-16-2020 influenza virus vaccine, unspecified formulation CHERIE VALENTIN [facility] NEGATED: Highlighted row has not occurred!02-16-2019 influenza virus vaccine, unspecified formulation CHERIE VALENTIN [facility] Payers Date Payer Category Payer Medicare [id number] 2021 Private Health Insurance [id number] 2021 Self-pay 2021 Medicare [id number] 2019 Medicaid MEDICAID [facility] MEDICAID [id number] 2019-Present [phone] [address] [place] [address] Medicaid [id number] 2019 Medicaid MEDICAID [facility] MEDICAID [id number] 2019-Present [phone] [address] [place] [address] Medicaid [id number] 2010 Medicaid [id number] 1985 Unknown [id number] 2.16.840.1.776654.3.579.2.7 27 1985 Unknown [id number] 2.16.840.1.406516.3.579.2.1 259 1985 Unknown [id number] 2.16.840.1.575633.3.579.2.1 259 1985 Unknown [id number] 2.16.840.1.577083.3.579.2.1 259 1985 Unknown [id number] 2.16.840.1.173834.3.579.2.1 259 1985 Unknown [id number] 2.16.840.1.262032.3.579.2.1 259 1985 Unknown [id number] 2.16.840.1.890907.3.579.2.1 259 1985 Unknown [id number] 2.16.840.1.665838.3.579.2.1 259 1985 Unknown [id number] 2.16.840.1.390624.3.579.2.1 259 1985 Unknown [id number] 2.16.840.1.249183.3.579.2.1 259 1985 Unknown [id number] 2.16.840.1.180520.3.579.2.1 259 1985 Unknown [id number] 2.16.840.1.260129.3.579.2.7 27 1985 Unknown [id number] 2.16.840.1.802940.3.579.2.7 27 1985 Unknown [id number] 2.16.840.1.866481.3.579.2.7 27 1985 Unknown [id number] 2.16.840.1.171124.3.579.2.7 27 1985 Unknown [id number] 2.16.840.1.148897.3.579.2.7 27 1985 Unknown [id number] 2.16.840.1.979953.3.579.2.7 27 1985 Unknown [id number] 2.16.840.1.243923.3.579.2.7 27 1985 Unknown [id number] 2.16.840.1.447393.3.579.2.7 27 1985 Unknown [id number] 2.16.840.1.731157.3.579.2.7 27 1985 Unknown [id number] 2.16.840.1.287467.3.579.2.7 27 1985 Unknown [id number] 2.16.840.1.895515.3.579.2.7 27 1985 Unknown [id number] 2.16.840.1.823430.3.579.2.7 27 1985 Unknown [id number] 2.16.840.1.063087.3.579.2.7 27 1985 Unknown [id number] 2.16.840.1.074000.3.579.2.7 27 1985 Unknown [id number] 2.16.840.1.189097.3.579.2.7 27 1985 Unknown [id number] 2.16.840.1.110917.3.579.2.7 27 1985 Unknown [id number] 2.16.840.1.072279.3.579.2.7 27 1985 Unknown [id number] 2.16.840.1.394832.3.579.2.7 27 1985 Unknown [id number] 2.16.840.1.520231.3.579.2.7 27 1959 Medicare [id number] Unknown Unknown [id number] 2.16.840.1.020892.3.579.2.5 31 Unknown [id number] 2.16.840.1.677758.3.579.2.5 31 Social History Date Type Detail Facility Start: 07-23-2021 End: 01-13-2024 Tobacco smoking status Never smoked tobacco (finding) [facility] Comment on above: denies use denies use Tobacco smoking status Never [facility] Comment on above: denies use denies use Start: 2020 End: 07-01-2023 Sex Assigned At Female [facility] Start: 03-31-2022 Tobacco smoking stat us NHIS Ex-smoker [facility] End: 05-09-2006 History of tobacco use Current smoker [facility] End: 05-09-2006 History of tobacco use Cigarette Smoker [facility] Start: 02-20-2020 End: 07-01-2023 Alcohol intake Current non-drinker of alcohol (finding) [facility] Start: 07-09-2008 End: 03-31-2022 Tobacco Comment PATIENT SMOKED 4-5 CIGARETTES DAILY BEFORE QUITTING [facility] Start: 1985 Sex Assigned At Female [facility] Start: 2020 End: 03-31-2022 Cigarettes smoked current (pack per day) - Reported 0.5 [facility] Start: 03-31-2022 Tobacco use and exposure Smokeless tobacco non-user [facility] Start: 03-21-2022 End: 03-31-2022 Exposure to SARS-CoV-2 (event) Not sure [facility] Tobacco [facility] Comment on above: Denies. Tobacco smoking status No Smokin g Status Entered [facility] Start: 06-05-2019 Gender identity Identifies as female gender (finding) [facility] Start: 06-05-2019 Sexual orientation Heterosexual (shiela duff) [facility] Medical Equipment Procedure Code Equipment Code Equipment Origin al Text Equipment Identifier Dates lancets, See Instructions, 100 EA, 3, lancets test daily E11.9, [facility] #[id number], Supply, 175, cm, 04/16/20 15:38:00 EST, Height/Length Dosing, 133.2, kg, 04/16/20 15:38:00 EST, Weight Dosing Start: 04-16-2020 Test strips-True Metrix, See Instructions, 100 EA, 2, Blood glucose test strips. Use daily to test fasting blood sugars and as needed for symptomatic high or low blood sugars, [facility], Supply, 175, cm, 09/15/20 13:52:00 EDT, Hei... Start: 09-16-2020 na, See Instruct ions, 1 bottle(s), 6, provide patient with lancets and glucometer strips. Check glucose daily., [facility] #[id number], Supply Start: 03-29-2019 lancets, See Instructions, 100 EA, 3, lancets test daily E11.9, [facility] #[id number], Supply, 175, cm, 04/16/20 15:38:00 EST, Height/Length Dosing, 133.2, kg, 04/16/20 15:38:00 EST, Weight Dosing Start: 04-16-2020 Test strips-True Metrix, See Instructions, 100 EA, 2, Blood glucose test strips. Use daily to test fasting blood sugars and as needed for symptomatic high or low blood sugars, [facility], Supply, 175, cm, 09/15/20 13:52:00 EDT, Hei... Start: 09-16-2020 na, See Instruct ions, 1 bottle(s), 6, provide patient with lancets and glucometer strips. Check glucose daily., [facility] #[id number], Supply Start: 03-29-2019 lancets, See Instructions, 100 EA, 3, lancets test daily E11.9, [facility] #[id number], Supply, 175, cm, 04/16/20 15:38:00 EST, Height/Length Dosing, 133.2, kg, 04/16/20 15:38:00 EST, Weight Dosing Start: 04-16-2020 Test strips-True Metrix, See Instructions, 100 EA, 2, Blood glucose test strips. Use daily to test fasting blood sugars and as needed for symptomatic high or low blood sugars, [facility], Supply, 175, cm, 09/15/20 13:52:00 EDT, Hei... Start: 09-16-2020 na, See Instruct ions, 1 bottle(s), 6, provide patient with lancets and glucometer strips. Check glucose daily., [facility] #[id number], Supply Start: 03-29-2019 lancets, See Instructions, 100 EA, 3, lancets test daily E11.9, [facility] #[id number], Supply, 175, cm, 04/16/20 15:38:00 EST, Height/Length Dosing, 133.2, kg, 04/16/20 15:38:00 EST, Weight Dosing Start: 04-16-2020 Test strips-True Metrix, See Instructions, 100 EA, 2, Blood glucose test strips. Use daily to test fasting blood sugars and as needed for symptomatic high or low blood sugars, [facility], Supply, 175, cm, 09/15/20 13:52:00 EDT, Hei... Start: 09-16-2020 na, See Instruct ions, 1 bottle(s), 6, provide patient with lancets and glucometer strips. Check glucose daily., [facility] #[id number], Supply Start: 03-29-2019 lancets, See Instructions, 100 EA, 3, lancets test daily E11.9, [facility] #[id number], Supply, 175, cm, 04/16/20 15:38:00 EST, Height/Length Dosing, 133.2, kg, 04/16/20 15:38:00 EST, Weight Dosing Start: 04-16-2020 Test strips-True Metrix, See Instructions, 100 EA, 2, Blood glucose test strips. Use daily to test fasting blood sugars and as needed for symptomatic high or low blood sugars, [facility], Supply, 175, cm, 09/15/20 13:52:00 EDT, Hei... Start: 09-16-2020 na, See Instruct ions, 1 bottle(s), 6, provide patient with lancets and glucometer strips. Check glucose daily., [facility] #[id number], Supply Start: 03-29-2019 lancets, See Instructions, 100 EA, 3, lancets test daily E11.9, [facility] #[id number], Supply, 175, cm, 04/16/20 15:38:00 EST, Height/Length Dosing, 133.2, kg, 04/16/20 15:38:00 EST, Weight Dosing Start: 04-16-2020 Test strips-True Metrix, See Instructions, 100 EA, 2, Blood glucose test strips. Use daily to test fasting blood sugars and as needed for symptomatic high or low blood sugars, [facility], Supply, 175, cm, 09/15/20 13:52:00 EDT, Hei... Start: 09-16-2020 na, See Instruct ions, 1 bottle(s), 6, provide patient with lancets and glucometer strips. Check glucose daily., [facility] #[id number], Supply Start: 03-29-2019 lancets, See Instructions, 100 EA, 3, lancets test daily E11.9, [facility] #[id number], Supply, 175, cm, 04/16/20 15:38:00 EST, Height/Length Dosing, 133.2, kg, 04/16/20 15:38:00 EST, Weight Dosing Start: 04-16-2020 Test strips-True Metrix, See Instructions, 100 EA, 2, Blood glucose test strips. Use daily to test fasting blood sugars and as needed for symptomatic high or low blood sugars, [facility], Supply, 175, cm, 09/15/20 13:52:00 EDT, Hei... Start: 09-16-2020 na, See Instruct ions, 1 bottle(s), 6, provide patient with lancets and glucometer strips. Check glucose daily., [facility] #[id number], Supply Start: 03-29-2019 lancets, See Instructions, 100 EA, 3, lancets test daily E11.9, [facility] #[id number], Supply, 175, cm, 04/16/20 15:38:00 EST, Height/Length Dosing, 133.2, kg, 04/16/20 15:38:00 EST, Weight Dosing Start: 04-16-2020 Test strips-True Metrix, See Instructions, 100 EA, 2, Blood glucose test strips. Use daily to test fasting blood sugars and as needed for symptomatic high or low blood sugars, [facility], Supply, 175, cm, 09/15/20 13:52:00 EDT, Hei... Start: 09-16-2020 na, See Instruct ions, 1 bottle(s), 6, provide patient with lancets and glucometer strips. Check glucose daily., [facility] #[id number], Supply Start: 03-29-2019 lancets, See Instructions, 100 EA, 3, lancets test daily E11.9, [facility] #[id number], Supply, 175, cm, 04/16/20 15:38:00 EST, Height/Length Dosing, 133.2, kg, 04/16/20 15:38:00 EST, Weight Dosing Start: 04-16-2020 Test strips-True Metrix, See Instructions, 100 EA, 2, Blood glucose test strips. Use daily to test fasting blood sugars and as needed for symptomatic high or low blood sugars, [facility], Supply, 175, cm, 09/15/20 13:52:00 EDT, Hei... Start: 09-16-2020 na, See Instruct ions, 1 bottle(s), 6, provide patient with lancets and glucometer strips. Check glucose daily., [facility] #[id number], Supply Start: 03-29-2019 lancets, See Instructions, 100 EA, 3, lancets test daily E11.9, [facility] #[id number], Supply, 175, cm, 04/16/20 15:38:00 EST, Height/Length Dosing, 133.2, kg, 04/16/20 15:38:00 EST, Weight Dosing Start: 04-16-2020 Test strips-True Metrix, See Instructions, 100 EA, 2, Blood glucose test strips. Use daily to test fasting blood sugars and as needed for symptomatic high or low blood sugars, [facility], Supply, 175, cm, 09/15/20 13:52:00 EDT, Hei... Start: 09-16-2020 na, See Instruct ions, 1 bottle(s), 6, provide patient with lancets and glucometer strips. Check glucose daily., [facility] #[id number], Supply Start: 03-29-2019 lancets, See Instructions, 100 EA, 3, lancets test daily E11.9, [facility] #[id number], Supply, 175, cm, 04/16/20 15:38:00 EST, Height/Length Dosing, 133.2, kg, 04/16/20 15:38:00 EST, Weight Dosing Start: 04-16-2020 Test strips-True Metrix, See Instructions, 100 EA, 2, Blood glucose test strips. Use daily to test fasting blood sugars and as needed for symptomatic high or low blood sugars, [facility], Supply, 175, cm, 09/15/20 13:52:00 EDT, Hei... Start: 09-16-2020 na, See Instruct ions, 1 bottle(s), 6, provide patient with lancets and glucometer strips. Check glucose daily., [facility] #[id number], Supply Start: 03-29-2019 lancets, See Instructions, 100 EA, 3, lancets test daily E11.9, [facility] #[id number], Supply, 175, cm, 04/16/20 15:38:00 EST, Height/Length Dosing, 133.2, kg, 04/16/20 15:38:00 EST, Weight Dosing Start: 04-16-2020 Test strips-True Metrix, See Instructions, 100 EA, 2, Blood glucose test strips. Use daily to test fasting blood sugars and as needed for symptomatic high or low blood sugars, [facility], Supply, 175, cm, 09/15/20 13:52:00 EDT, Hei... Start: 09-16-2020 na, See Instruct ions, 1 bottle(s), 6, provide patient with lancets and glucometer strips. Check glucose daily., [facility] #[id number], Supply Start: 03-29-2019 lancets, See Instructions, 100 EA, 3, lancets test daily E11.9, [facility] #[id number], Supply, 175, cm, 04/16/20 15:38:00 EST, Height/Length Dosing, 133.2, kg, 04/16/20 15:38:00 EST, Weight Dosing Start: 04-16-2020 Test strips-True Metrix, See Instructions, 100 EA, 2, Blood glucose test strips. Use daily to test fasting blood sugars and as needed for symptomatic high or low blood sugars, [facility], Supply, 175, cm, 09/15/20 13:52:00 EDT, Hei... Start: 09-16-2020 na, See Instruct ions, 1 bottle(s), 6, provide patient with lancets and glucometer strips. Check glucose daily., [facility] #[id number], Supply Start: 03-29-2019 lancets, See Instructions, 100 EA, 3, lancets test daily E11.9, [facility] #[id number], Supply, 175, cm, 04/16/20 15:38:00 EST, Height/Length Dosing, 133.2, kg, 04/16/20 15:38:00 EST, Weight Dosing Start: 04-16-2020 Test strips-True Metrix, See Instructions, 100 EA, 2, Blood glucose test strips. Use daily to test fasting blood sugars and as needed for symptomatic high or low blood sugars, [facility], Supply, 175, cm, 09/15/20 13:52:00 EDT, Hei... Start: 09-16-2020 na, See Instruct ions, 1 bottle(s), 6, provide patient with lancets and glucometer strips. Check glucose daily., [facility] #[id number], Supply Start: 03-29-2019 lancets, See Instructions, 100 EA, 3, lancets test daily E11.9, [facility] #[id number], Supply, 175, cm, 04/16/20 15:38:00 EST, Height/Length Dosing, 133.2, kg, 04/16/20 15:38:00 EST, Weight Dosing Start: 04-16-2020 Test strips-True Metrix, See Instructions, 100 EA, 2, Blood glucose test strips. Use daily to test fasting blood sugars and as needed for symptomatic high or low blood sugars, [facility], Supply, 175, cm, 09/15/20 13:52:00 EDT, Hei... Start: 09-16-2020 na, See Instruct ions, 1 bottle(s), 6, provide patient with lancets and glucometer strips. Check glucose daily., [facility] #[id number], Supply Start: 03-29-2019 Start: 06-15-2018 lancets, See Instructions, 100 EA, 3, lancets test daily E11.9, [facility] #[id number], Supply, 175, cm, 04/16/20 15:38:00 EST, Height/Length Dosing, 133.2, kg, 04/16/20 15:38:00 EST, Weight Dosing Start: 04-16-2020 Test strips-True Metrix, See Instructions, 100 EA, 2, Blood glucose test strips. Use daily to test fasting blood sugars and as needed for symptomatic high or low blood sugars, [facility], Supply, 175, cm, 09/15/20 13:52:00 EDT, Hei... Start: 09-16-2020 na, See Instruct ions, 1 bottle(s), 6, provide patient with lancets and glucometer strips. Check glucose daily., [facility] #[id number], Supply Start: 03-29-2019 lancets, See Instructions, 100 EA, 3, lancets test daily E11.9, [facility] #[id number], Supply, 175, cm, 04/16/20 15:38:00 EST, Height/Length Dosing, 133.2, kg, 04/16/20 15:38:00 EST, Weight Dosing Start: 04-16-2020 Test strips-True Metrix, See Instructions, 100 EA, 2, Blood glucose test strips. Use daily to test fasting blood sugars and as needed for symptomatic high or low blood sugars, [facility], Supply, 175, cm, 09/15/20 13:52:00 EDT, Hei... Start: 09-16-2020 na, See Instruct ions, 1 bottle(s), 6, provide patient with lancets and glucometer strips. Check glucose daily., [facility] #[id number], Supply Start: 03-29-2019 lancets, See Instructions, 100 EA, 3, lancets test daily E11.9, [facility] #[id number], Supply, 175, cm, 04/16/20 15:38:00 EST, Height/Length Dosing, 133.2, kg, 04/16/20 15:38:00 EST, Weight Dosing Start: 04-16-2020 Test strips-True Metrix, See Instructions, 100 EA, 2, Blood glucose test strips. Use daily to test fasting blood sugars and as needed for symptomatic high or low blood sugars, [facility], Supply, 175, cm, 09/15/20 13:52:00 EDT, Hei... Start: 09-16-2020 na, See Instruct ions, 1 bottle(s), 6, provide patient with lancets and glucometer strips. Check glucose daily., [facility] #[id number], Supply Start: 03-29-2019 lancets, See Instructions, 100 EA, 3, lancets test daily E11.9, [facility] #[id number], Supply, 175, cm, 04/16/20 15:38:00 EST, Height/Length Dosing, 133.2, kg, 04/16/20 15:38:00 EST, Weight Dosing Start: 04-16-2020 Test strips-True Metrix, See Instructions, 100 EA, 2, Blood glucose test strips. Use daily to test fasting blood sugars and as needed for symptomatic high or low blood sugars, [facility], Supply, 175, cm, 09/15/20 13:52:00 EDT, Height/Length Dosing, 128, kg, 09/15/20 13:52:00 EDT, Weight Dosing Start: 09-16-2020 na, See Instruct ions, 1 bottle(s), 6, provide patient with lancets and glucometer strips. Check glucose daily., [facility] #[id number], Supply Start: 03-29-2019 lancets, See Instructions, 100 EA, 3, lancets test daily E11.9, [facility] #[id number], Supply, 175, cm, 04/16/20 15:38:00 EST, Height/Length Dosing, 133.2, kg, 04/16/20 15:38:00 EST, Weight Dosing Start: 04-16-2020 Test strips-True Metrix, See Instructions, 100 EA, 2, Blood glucose test strips. Use daily to test fasting blood sugars and as needed for symptomatic high or low blood sugars, [facility], Supply, 175, cm, 09/15/20 13:52:00 EDT, Height/Length Dosing, 128, kg, 09/15/20 13:52:00 EDT, Weight Dosing Start: 09-16-2020 na, See Instruct ions, 1 bottle(s), 6, provide patient with lancets and glucometer strips. Check glucose daily., [facility] #[id number], Supply Start: 03-29-2019 lancets, See Instructions, 100 EA, 3, lancets test daily E11.9, [facility] #[id number], Supply, 175, cm, 04/16/20 15:38:00 EST, Height/Length Dosing, 133.2, kg, 04/16/20 15:38:00 EST, Weight Dosing Start: 04-16-2020 Test strips-True Metrix, See Instructions, 100 EA, 2, Blood glucose test strips. Use daily to test fasting blood sugars and as needed for symptomatic high or low blood sugars, [facility], Supply, 175, cm, 09/15/20 13:52:00 EDT, Height/Length Dosing, 128, kg, 09/15/20 13:52:00 EDT, Weight Dosing Start: 09-16-2020 na, See Instruct ions, 1 bottle(s), 6, provide patient with lancets and glucometer strips. Check glucose daily., [facility] #[id number], Supply Start: 03-29-2019 lancets, See Instructions, 100 EA, 3, lancets test daily E11.9, [facility] #[id number], Supply, 175, cm, 04/16/20 15:38:00 EST, Height/Length Dosing, 133.2, kg, 04/16/20 15:38:00 EST, Weight Dosing Start: 04-16-2020 Test strips-True Metrix, See Instructions, 100 EA, 2, Blood glucose test strips. Use daily to test fasting blood sugars and as needed for symptomatic high or low blood sugars, [facility], Supply, 175, cm, 09/15/20 13:52:00 EDT, Height/Length Dosing, 128, kg, 09/15/20 13:52:00 EDT, Weight Dosing Start: 09-16-2020 na, See Instruct ions, 1 bottle(s), 6, provide patient with lancets and glucometer strips. Check glucose daily., [facility] #[id number], Supply Start: 03-29-2019 lancets, See Instructions, 100 EA, 3, lancets test daily E11.9, [facility] #[id number], Supply, 175, cm, 04/16/20 15:38:00 EST, Height/Length Dosing, 133.2, kg, 04/16/20 15:38:00 EST, Weight Dosing Start: 04-16-2020 Test strips-True Metrix, See Instructions, 100 EA, 2, Blood glucose test strips. Use daily to test fasting blood sugars and as needed for symptomatic high or low blood sugars, [facility], Supply, 175, cm, 09/15/20 13:52:00 EDT, Height/Length Dosing, 128, kg, 09/15/20 13:52:00 EDT, Weight Dosing Start: 09-16-2020 na, See Instruct ions, 1 bottle(s), 6, provide patient with lancets and glucometer strips. Check glucose daily., [facility] #[id number], Supply Start: 03-29-2019 lancets, See Instructions, 100 EA, 3, lancets test daily E11.9, [facility] #[id number], Supply, 175, cm, 04/16/20 15:38:00 EST, Height/Length Dosing, 133.2, kg, 04/16/20 15:38:00 EST, Weight Dosing Start: 04-16-2020 Test strips-True Metrix, See Instructions, 100 EA, 2, Blood glucose test strips. Use daily to test fasting blood sugars and as needed for symptomatic high or low blood sugars, [facility], Supply, 175, cm, 09/15/20 13:52:00 EDT, Height/Length Dosing, 128, kg, 09/15/20 13:52:00 EDT, Weight Dosing Start: 09-16-2020 na, See Instruct ions, 1 bottle(s), 6, provide patient with lancets and glucometer strips. Check glucose daily., [facility] #[id number], Supply Start: 03-29-2019 lancets, See Instructions, 100 EA, 3, lancets test daily E11.9, [facility] #[id number], Supply, 175, cm, 04/16/20 15:38:00 EST, Height/Length Dosing, 133.2, kg, 04/16/20 15:38:00 EST, Weight Dosing Start: 04-16-2020 Test strips-True Metrix, See Instructions, 100 EA, 2, Blood glucose test strips. Use daily to test fasting blood sugars and as needed for symptomatic high or low blood sugars, [facility], Supply, 175, cm, 09/15/20 13:52:00 EDT, Height/Length Dosing, 128, kg, 09/15/20 13:52:00 EDT, Weight Dosing Start: 09-16-2020 na, See Instruct ions, 1 bottle(s), 6, provide patient with lancets and glucometer strips. Check glucose daily., [facility] #[id number], Supply Start: 03-29-2019 lancets, See Instructions, 100 EA, 3, lancets test daily E11.9, [facility] #[id number], Supply, 175, cm, 04/16/20 15:38:00 EST, Height/Length Dosing, 133.2, kg, 04/16/20 15:38:00 EST, Weight Dosing Start: 04-16-2020 Test strips-True Metrix, See Instructions, 100 EA, 2, Blood glucose test strips. Use daily to test fasting blood sugars and as needed for symptomatic high or low blood sugars, [employer], Supply, 175, cm, 09/15/20 13:52:00 EDT, Height/Length Dosing, 128, kg, 09/15/20 13:52:00 EDT, Weight Dosing Start: 09-16-2020 na, See Instruct ions, 1 bottle(s), 6, provide patient with lancets and glucometer strips. Check glucose daily., [employer] #[id number], Supply Start: 03-29-2019 lancets, See Instructions, 100 EA, 3, lancets test daily E11.9, [employer] #[id number], Supply, 175, cm, 04/16/20 15:38:00 EST, Height/Length Dosing, 133.2, kg, 04/16/20 15:38:00 EST, Weight Dosing Start: 04-16-2020 Test strips-True Metrix, See Instructions, 100 EA, 2, Blood glucose test strips. Use daily to test fasting blood sugars and as needed for symptomatic high or low blood sugars, [employer], Supply, 175, cm, 09/15/20 13:52:00 EDT, Height/Length Dosing, 128, kg, 09/15/20 13:52:00 EDT, Weight Dosing Start: 09-16-2020 na, See Instruct ions, 1 bottle(s), 6, provide patient with lancets and glucometer strips. Check glucose daily., [employer] #[id number], Supply Start: 03-29-2019 lancets, See Instructions, 100 EA, 3, lancets test daily E11.9, [employer] #[id number], Supply, 175, cm, 04/16/20 15:38:00 EST, Height/Length Dosing, 133.2, kg, 04/16/20 15:38:00 EST, Weight Dosing Start: 04-16-2020 Test strips-True Metrix, See Instructions, 100 EA, 2, Blood glucose test strips. Use daily to test fasting blood sugars and as needed for symptomatic high or low blood sugars, [employer], Supply, 175, cm, 09/15/20 13:52:00 EDT, Height/Length Dosing, 128, kg, 09/15/20 13:52:00 EDT, Weight Dosing Start: 09-16-2020 na, See Instruct ions, 1 bottle(s), 6, provide patient with lancets and glucometer strips. Check glucose daily., [employer] #[id number], Supply Start: 03-29-2019 lancets, See Instructions, 100 EA, 3, lancets test daily E11.9, [employer] #[id number], Supply, 175, cm, 04/16/20 15:38:00 EST, Height/Length Dosing, 133.2, kg, 04/16/20 15:38:00 EST, Weight Dosing Start: 04-16-2020 Test strips-True Metrix, See Instructions, 100 EA, 2, Blood glucose test strips. Use daily to test fasting blood sugars and as needed for symptomatic high or low blood sugars, [employer], Supply, 175, cm, 09/15/20 13:52:00 EDT, Height/Length Dosing, 128, kg, 09/15/20 13:52:00 EDT, Weight Dosing Start: 09-16-2020 na, See Instruct ions, 1 bottle(s), 6, provide patient with lancets and glucometer strips. Check glucose daily., [employer] #[id number], Supply Start: 03-29-2019 lancets, See Instructions, 100 EA, 3, lancets test daily E11.9, [employer] #[id number], Supply, 175, cm, 04/16/20 15:38:00 EST, Height/Length Dosing, 133.2, kg, 04/16/20 15:38:00 EST, Weight Dosing Start: 04-16-2020 Test strips-True Metrix, See Instructions, 100 EA, 2, Blood glucose test strips. Use daily to test fasting blood sugars and as needed for symptomatic high or low blood sugars, [employer], Supply, 175, cm, 09/15/20 13:52:00 EDT, Height/Length Dosing, 128, kg, 09/15/20 13:52:00 EDT, Weight Dosing Start: 09-16-2020 na, See Instruct ions, 1 bottle(s), 6, provide patient with lancets and glucometer strips. Check glucose daily., [employer] #[id number], Supply Start: 03-29-2019 lancets, See Instructions, 100 EA, 3, lancets test daily E11.9, [employer] #[id number], Supply, 175, cm, 04/16/20 15:38:00 EST, Height/Length Dosing, 133.2, kg, 04/16/20 15:38:00 EST, Weight Dosing Start: 04-16-2020 Test strips-True Metrix, See Instructions, 100 EA, 2, Blood glucose test strips. Use daily to test fasting blood sugars and as needed for symptomatic high or low blood sugars, [employer], Supply, 175, cm, 09/15/20 13:52:00 EDT, Height/Length Dosing, 128, kg, 09/15/20 13:52:00 EDT, Weight Dosing Start: 09-16-2020 na, See Instruct ions, 1 bottle(s), 6, provide patient with lancets and glucometer strips. Check glucose daily., [employer] #[id number], Supply Start: 03-29-2019 lancets, See Instructions, 100 EA, 3, lancets test daily E11.9, [employer] #[id number], Supply, 175, cm, 04/16/20 15:38:00 EST, Height/Length Dosing, 133.2, kg, 04/16/20 15:38:00 EST, Weight Dosing Start: 04-16-2020 Test strips-True Metrix, See Instructions, 100 EA, 2, Blood glucose test strips. Use daily to test fasting blood sugars and as needed for symptomatic high or low blood sugars, [employer], Supply, 175, cm, 09/15/20 13:52:00 EDT, Height/Length Dosing, 128, kg, 09/15/20 13:52:00 EDT, Weight Dosing Start: 09-16-2020 na, See Instruct ions, 1 bottle(s), 6, provide patient with lancets and glucometer strips. Check glucose daily., [employer] #[id number], Supply Start: 03-29-2019 lancets, See Instructions, 100 EA, 3, lancets test daily E11.9, [employer] #[id number], Supply, 175, cm, 04/16/20 15:38:00 EST, Height/Length Dosing, 133.2, kg, 04/16/20 15:38:00 EST, Weight Dosing Start: 04-16-2020 Test strips-True Metrix, See Instructions, 100 EA, 2, Blood glucose test strips. Use daily to test fasting blood sugars and as needed for symptomatic high or low blood sugars, [employer], Supply, 175, cm, 09/15/20 13:52:00 EDT, Height/Length Dosing, 128, kg, 09/15/20 13:52:00 EDT, Weight Dosing Start: 09-16-2020 na, See Instruct ions, 1 bottle(s), 6, provide patient with lancets and glucometer strips. Check glucose daily., [employer] #[id number], Supply Start: 03-29-2019 lancets, See Instructions, 100 EA, 3, lancets test daily E11.9, [employer] #[id number], Supply, 175, cm, 04/16/20 15:38:00 EST, Height/Length Dosing, 133.2, kg, 04/16/20 15:38:00 EST, Weight Dosing Start: 04-16-2020 Test strips-True Metrix, See Instructions, 100 EA, 2, Blood glucose test strips. Use daily to test fasting blood sugars and as needed for symptomatic high or low blood sugars, [employer] [employer], Supply, 175, cm, 09/15/20 13:52:00 EDT, Height/Length Dosing, 128, kg, 09/15/20 13:52:00 EDT, Weight Dosing Start: 09-16-2020 na, See Instruct ions, 1 bottle(s), 6, provide patient with lancets and glucometer strips. Check glucose daily., [employer] #[id number], Supply Start: 03-29-2019 lancets, See Instructions, 100 EA, 3, lancets test daily E11.9, [employer] #[id number], Supply, 175, cm, 04/16/20 15:38:00 EST, Height/Length Dosing, 133.2, kg, 04/16/20 15:38:00 EST, Weight Dosing Start: 04-16-2020 Test strips-True Metrix, See Instructions, 100 EA, 2, Blood glucose test strips. Use daily to test fasting blood sugars and as needed for symptomatic high or low blood sugars, [employer], Supply, 175, cm, 09/15/20 13:52:00 EDT, Height/Length Dosing, 128, kg, 09/15/20 13:52:00 EDT, Weight Dosing Start: 09-16-2020 na, See Instruct ions, 1 bottle(s), 6, provide patient with lancets and glucometer strips. Check glucose daily., [employer] #[id number], Supply Start: 03-29-2019 lancets, See Instructions, 100 EA, 3, lancets test daily E11.9, [employer] #[id number], Supply, 175, cm, 04/16/20 15:38:00 EST, Height/Length Dosing, 133.2, kg, 04/16/20 15:38:00 EST, Weight Dosing Start: 04-16-2020 Test strips-True Metrix, See Instructions, 100 EA, 2, Blood glucose test strips. Use daily to test fasting blood sugars and as needed for symptomatic high or low blood sugars, [employer], Supply, 175, cm, 09/15/20 13:52:00 EDT, Height/Length Dosing, 128, kg, 09/15/20 13:52:00 EDT, Weight Dosing Start: 09-16-2020 na, See Instruct ions, 1 bottle(s), 6, provide patient with lancets and glucometer strips. Check glucose daily., [employer] #[id number], Supply Start: 03-29-2019 Goals Date Patient Goal Desired Activity /State 03-29-2019 Functional Status Date Assessment Result Facility 01-13-2024 Functional Status N/A [facility] 12-16-2023 Functional Status No [facility] 11-29-2023 Functional Status N/A [facility] 11-28-2023 Functional Status N/A [facility] 09-22-2023 Functional Status N/A [facility] 07-25-2023 Functional Status N/A [facility] 07-01-2023 Functional Status N/A [facility] 05-20-2023 Functional Status N/A [facility] 04-06-2023 Functional Status N/A [facility] 03-19-2023 Functional Status N/A [facility] 03-14-2023 Functional Status N/A [facility] 12-21-2022 Functional Status N/A [facility] 10-21-2022 Functional Status N/A [facility] 05-23-2022 Functional Status N/A [facility] 02-11-2022 Functional Status Telehealth Patient [facility] 12-31-2021 Functional Status N/A [facility] 12-24-2021 N/A [facility] 11-03-2021 Functional Status N/A [facility] 11-01-2021 Functional Status N/A [facility] Clinical Notes 01-26-2010 to 01-13-2024 Note Date & Type Note Facility 01-13-2024 Hospital Discharg e instructions Patient Education 01/13/2024 11:10:44 Overactive Bladder, Adult Overactive Bladder, Adult Overactive bladder is a condition in which a person has a sudden and frequent need to urinate. A person might also leak urine if he or she cannot get to the bathroom fast enough (urinary incontinence). Sometimes, symptoms can interfere with work or social activities. What are the causes? Overactive bladder is associated with poor nerve signals between your bladder and your brain. Your bladder may get the signal to empty before it is full. You may also have very sensitive muscles that make your bladder squeeze too soon. This condition may also be caused by other factors, such as: Medical conditions: ?Urinary tract infection. ?Infection of nearby tissues. ?Prostate enlargement. ?Bladder stones, inflammation, or tumors. ?Diabetes. ?Muscle or nerve weakness, especially from these conditions: ?A spinal cord injury. ?Stroke. ?Multiple sclerosis. ?Parkinson's disease. Other causes: ?Surgery on the uterus or urethra. ?Drinking too much caffeine or alcohol. ?Certain medicines, especially those that eliminate extra fluid in the body (diuretics). ?Constipation. What increases the risk? You may be at greater risk for overactive bladder if you: Are an older adult. Smoke. Are going through menopause. Have prostate problems. Have a neurological disease, such as stroke, dementia, Parkinson's disease, or multiple sclerosis (MS). Eat or drink alcohol, spicy food, caffeine, and other things that irritate the bladder. Are overweight or obese. What are the signs or symptoms? Symptoms of this condition include a sudden, strong urge to urinate. Other symptoms include: Leaking urine. Urinating 8 or more times a day. Waking up to urinate 2 or more times overnight. How is this diagnosed? This condition may be diagnosed based on: Your symptoms and medical history. A physical exam. Blood or urine tests to check for possible causes, such as infection. You may also need to see a health care provider who specializes in urinary tract problems. This is called a urologist. How is this treated? Treatment for overactive bladder depends on the cause of your condition and whether it is mild or severe. Treatment may include: Bladder training, such as: ?Learning to control the urge to urinate by following a schedule to urinate at regular intervals. ?Doing Kegel exercises to strengthen the pelvic floor muscles that support your bladder. Special devices, such as: ?Biofeedback. This uses sensors to help you become aware of your body's signals. ?Electrical stimulation. This uses electrodes placed inside the body (implanted) or outside the body. These electrodes send gentle pulses of electricity to strengthen the nerves or muscles that control the bladder. ?Women may use a plastic device, called a pessary, that fits into the vagina and supports the bladder. Medicines, such as: ?Antibiotics to treat bladder infection. ?Antispasmodics to stop the bladder from releasing urine at the wrong time. ?Tricyclic antidepressants to relax bladder muscles. ?Injections of botulinum toxin type A directly into the bladder tissue to relax bladder muscles. Surgery, such as: ?A device may be implanted to help manage the nerve signals that control urination. ?An electrode may be implanted to stimulate electrical signals in the bladder. ?A procedure may be done to change the shape of the bladder. This is done only in very severe cases. Follow these instructions at home: Eating and drinking Make diet or lifestyle changes recommended by your health care provider. These may include: ?Drinking fluids throughout the day and not only with meals. ?Cutting down on caffeine or alcohol. ?Eating a healthy and balanced diet to prevent constipation. This may include: ?Choosing foods that are high in fiber, such as beans, whole grains, and fresh fruits and vegetables. ?Limiting foods that are high in fat and processed sugars, such as fried and sweet foods. Lifestyle Lose weight if needed. Do not use any products that contain nicotine or tobacco. These include cigarettes, chewing tobacco, and vaping devices, such as e-cigarettes. If you need help quitting, ask your health care provider. General instructions Take slgd-ilv-cvlsnib and prescription medicines only as told by your health care provider. If you were prescribed an antibiotic medicine, take it as told by your health care provider. Do not stop taking the antibiotic even if you start to feel better. Use any implants or pessary as told by your health care provider. If needed, wear pads to absorb urine leakage. Keep a log to track how much and when you drink, and when you need to urinate. This will help your health care provider monitor your condition. Keep all follow-up visits. This is important. Contact a health care provider if: You have a fever or chills. Your symptoms do not get better with treatment. Your pain and discomfort get worse. You have more frequent urges to urinate. Get help right away if: You are not able to control your bladder. Summary Overactive bladder refers to a condition in which a person has a sudden and frequent need to urinate. Several conditions may lead to an overactive bladder. Treatment for overactive bladder depends on the cause and severity of your condition. Making lifestyle changes, doing Kegel exercises, keeping a log, and taking medicines can help with this condition. This information is not intended to replace advice given to you by your health care provider. Make sure you discuss any questions you have with your health care provider. Document Revised: 01/12/2021 Document Reviewed: 01/12/2021 [employer] Patient Education 2023 [employer]. Follow Up Care 11/28/2023 10:10:26 With:[facility] [place] Address: [address] [place] [address] Business (1) When: Unknown Comments:our doll maker will be contacting you for follow-up [facility] 01-13-2024 Note Patient Education Obstetrics and Gynecology Overactive Bladder, Adult Overactive bladder is a condition in which a person has a sudden and frequent need to urinate. A person might also leak urine if he or she cannot get to the bathroom fast enough (urinary incontinence). Sometimes, symptoms can interfere with work or social activities. What are the causes? Overactive bladder is associated with poor nerve signals between your bladder and your brain. Your bladder may get the signal to empty before it is full. You may also have very sensitive muscles that make your bladder squeeze too soon. This condition may also be caused by other factors, such as: ? Medical conditions: ? Urinary tract infection. ? Infection of nearby tissues. ? Prostate enlargement. ? Bladder stones, inflammation, or tumors. ? Diabetes. ? Muscle or nerve weakness, especially from these conditions: ? A spinal cord injury. ? Stroke. ? Multiple sclerosis. ? Parkinson's disease. ? Other causes: ? Surgery on the uterus or urethra. ? Drinking too much caffeine or alcohol. ? Certain medicines, especially those that eliminate extra fluid in the body (diuretics). ? Constipation. What increases the risk? You may be at greater risk for overactive bladder if you: ? Are an older adult. ? Smoke. ? Are going through menopause. ? Have prostate problems. ? Have a neurological disease, such as stroke, dementia, Parkinson's disease, or multiple sclerosis (MS). ? Eat or drink alcohol, spicy food, caffeine, and other things that irritate the bladder. ? Are overweight or obese. What are the signs or symptoms? Symptoms of this condition include a sudden, strong urge to urinate. Other symptoms include: ? Leaking urine. ? Urinating 8 or more times a day. ? Waking up to urinate 2 or more times overnight. How is this diagnosed? This condition may be diagnosed based on: ? Your symptoms and medical history. ? A physical exam. ? Blood or urine tests to check for possible causes, such as infection. You may also need to see a health care provider who specializes in urinary tract problems. This is called a urologist. How is this treated? Treatment for overactive bladder depends on the cause of your condition and whether it is mild or severe. Treatment may include: ? Bladder training, such as: ? Learning to control the urge to urinate by following a schedule to urinate at regular intervals. ? Doing Kegel exercises to strengthen the pelvic floor muscles that support your bladder. ? Special devices, such as: ? Biofeedback. This uses sensors to help you become aware of your body's signals. ? Electrical stimulation. This uses electrodes placed inside the body (implanted) or outside the body. These electrodes send gentle pulses of electricity to strengthen the nerves or muscles that control the bladder. ? Women may use a plastic device, called a pessary, that fits into the vagina and supports the bladder. ? Medicines, such as: ? Antibiotics to treat bladder infection. ? Antispasmodics to stop the bladder from releasing urine at the wrong time. ? Tricyclic antidepressants to relax bladder muscles. ? Injections of botulinum toxin type A directly into the bladder tissue to relax bladder muscles. ? Surgery, such as: ? A device may be implanted to help manage the nerve signals that control urination. ? An electrode may be implanted to stimulate electrical signals in the bladder. ? A procedure may be done to change the shape of the bladder. This is done only in very severe cases. Follow these instructions at home: Eating and drinking ? Make diet or lifestyle changes recommended by your health care provider. These may include: ? Drinking fluids throughout the day and not only with meals. ? Cutting down on caffeine or alcohol. ? Eating a healthy and balanced diet to prevent constipation. This may include: ? Choosing foods that are high in fiber, such as beans, whole grains, and fresh fruits and vegetables. ? Limiting foods that are high in fat and processed sugars, such as fried and sweet foods. Lifestyle ? Lose weight if needed. ? Do not use any products that contain nicotine or tobacco. These include cigarettes, chewing tobacco, and vaping devices, such as e-cigarettes. If you need help quitting, ask your health care provider. General instructions ? Take boxv-jda-iqavfke and prescription medicines only as told by your health care provider. ? If you were prescribed an antibiotic medicine, take it as told by your health care provider. Do not stop taking the antibiotic even if you start to feel better. ? Use any implants or pessary as told by your health care provider. ? If needed, wear pads to absorb urine leakage. ? Keep a log to track how much and when you drink, and when you need to urinate. This will help your health care (more content not included)... [facility] 12-21-2023 Hospital Discharg e instructions Patient Education 12/21/2023 15:44:30 Post Op Patient Instructions - FT (CUSTOM) 12/21/2023 14:48:52 Epidermoid Cyst Removal, Care After Epidermoid Cyst Removal, Care After This sheet gives you information about how to care for yourself after your procedure. Your health care provider may also give you more specific instructions. If you have problems or questions, contact your health care provider. What can I expect after the procedure? After the procedure, it is common to have: Soreness in the area where your cyst was removed. Tightness or itchiness from the stitches (sutures) in your skin. Follow these instructions at home: Medicines Take anzp-bzo-slkjdkl and prescription medicines only as told by your health care provider. If you were prescribed an antibiotic medicine or ointment, take or apply it as told by your health care provider. Do not stop using the antibiotic even if you start to feel better. Incision care Follow instructions from your health care provider about how to take care of your incision. Make sure you: ?Wash your hands with soap and water for at least 20 seconds before you change your bandage (dressing). If soap and water are not available, use hand fruit worker. ?Change your dressing as told by your health care provider. ?Leave sutures, skin glue, or adhesive strips in place. These skin closures may need to stay in place for 1 2 weeks or longer. If adhesive strip edges start to loosen and curl up, you may trim the loose edges. Do not remove adhesive strips completely unless your health care provider tells you to do that. Keep the dressing dry until your health care provider says that it can be removed. After your dressing is off, check your incision area every day for signs of infection. Check for: ?Redness, swelling, or pain. ?Fluid or blood. ?Warmth. ?Pus or a bad smell. General instructions Do not take baths, swim, or use a hot tub until your health care provider approves. Ask your health care provider if you may take showers. You may only be allowed to take sponge baths. Your health care provider may ask you to avoid contact sports or activities that take a lot of effort. Do not do anything that stretches or puts pressure on your incision. You can return to your normal diet. Keep all follow-up visits. This is important. Contact a health care provider if: You have a fever. You have redness, swelling, or pain in the incision area. You have fluid or blood coming from your incision. You have pus or a bad smell coming from your incision. Your incision feels warm to the touch. Your cyst grows back. Get help right away if: If the incision site suddenly increases in size and you have pain at the incision site. You may be checked for a collection of blood under the skin from the procedure (hematoma). Summary After the procedure, it is common to have soreness in the area where your cyst was removed. Take or apply wmbo-rsv-vgoovrd and prescription medicines only as told by your health care provider. Follow instructions from your health care provider about how to take care of your incision. This information is not intended to replace advice given to you by your health care provider. Make sure you discuss any questions you have with your health care provider. Document Revised: 07/30/2020 Document Reviewed: 07/30/2020 [employer] Patient Education 2022 [employer]. Follow Up Care 12/09/2023 09:26:18 With:Daron Hernandez Address: [place] [phone] [phone] Business (1) When: Unknown Comments:Appointment has already been scheduled [facility] 11-29-2023 Hospital Discharg e instructions Patient Education 11/29/2023 20:59:57 Cellulitis, Adult, Xtag-le-Llon Cellulitis, Adult Cellulitis is a skin infection. [...] Follow these instructions at home: Medicines Take uknj-pah-kwgbwfn and prescription medicines only as told by [...] provider. Document Revised: 02/04/2022 Document Reviewed: 02/04/2022 [employer] Patient Education 2022 [employer]. Follow Up Care 11/29/2023 20:02:37 With:Irasema Zacarias Address: [address] [place] [address] [place] [address] Business (1) When:12/02/2023 20:41:42 Comments:Stop the clindamycin and start the Bactrim and Keflex. He can use naproxen every 12 hours as needed for pain in addition to pain medicine impression prescribed last night. Please follow-up with your primary care doctor for further evaluation management. Please return to the ED for any new or worsening symptoms. [facility] 11-29-2023 Note ED Patient Education Note [...] these instructions at home: Medicines ? Take kmmi-uyt-vsdprtk and prescription medicines only as told by [...] provider. Document Revised: 02/04/2022 Document Reviewed: 02/04/2022 [employer] Patient Education ? 2022 [employer]. [facility] 11-29-2023 Evaluation + Plan note Extrac mayur from: Title:ED Note Author:Celena Dias DO Date :11/29/23 Cellulitis of left breast (N 61.0: Mastitis without abscess) Orders: cephalexin, 500 mg = 1 cap(s), Oral, TID, X 10 day(s), # 30 cap(s), Refills(s) 0, Pharmacy: [facility] #[id number], 175, cm, 11/29/23 20:31:00 EDT, Height/Length Dosing, [...] pain, # 20 tab(s), Refills(s) 0, Pharmacy: [facility] #[id number], 175, cm, 11/29/23 20:31:00 EDT, Height/Length Dosing, 139, kg, 11/29/23 20:31:00 EDT, Weight Dosing sulfamethoxazole-trimethoprim, 1 tab(s), Oral, BID, 20 tab(s), Refill(s) 0, [facility] #[id number], 175, cm, 11/29/23 20:31:00 EDT, Height/Length Dosing, 139, kg, 11/29/23 20:31:00 EDT, Weight Dosing sulfamethoxazole-trimethoprim, 1 tab(s), Tab, Oral, Once, Stop date 11/29/23 20:39:00 EDT, STAT, Start date 11/29/23 20:39:00 EDT Future Appointments Appointment Date:12/12/2023 03:20:00 PM Scheduled Provider:Daron Hernandez MD Location:[facility] Appointment Type:GS New 30 Appointment Date:01/13/2024 10:00:00 AM Scheduled Provider:KYUNG PAUL PA-C Location:[facility] Appointment Type:URO New Patient Appointment Date:09/25/2024 08:00:00 AM Scheduled Provider: Location:[facility] Appointment Type: Medicare Wellness Subsequent Future Scheduled Tests Laboratory* HgbA1c 12/21/22 * FSH and LH 05/20/23 * Insulin Free and Total 05/20/23 * TSH With T4fr Reflex 05/20/23 * TSH With T4fr Reflex 12/21/22 * Beta hCG Quantitative 05/20/23 * Cortisol 05/20/23 * Lipid Panel 12/21/22 * Prolactin Level 05/20/23 [facility]07-22-2024 Hospital Discharge instructions Patient Education 11/28/2023 [...] Follow these instructions at home: Medicines Take ntxn-cyr-xivgqab and prescription medicines only as told by [...] soap and water arenot available, use hand fruit worker. Check your abscess every day for signs [...] provider. Document Revised: 07/29/2022 Document Reviewed: 02/01/2022 [employer] Patient Education 2022 [employer]. 11/28/2023 21:00:36 Cellulitis, Adult, Yiuh-wt-Swvw Cellulitis, Adult Cellulitis is a skin infection. [...] Follow these instructions at home: Medicines Take usxm-zls-mgbvkbf and prescription medicines only as told by [...] provider. Document Revised: 02/04/2022 Document Reviewed: 02/04/2022 [employer] Patient Education 2022 [employer]. Follow Up Care 11/28/2023 19:05:50 With:Daron Hernandez Address:Unknown When:12/01/2023 20:36:49 Comments:Call for diagnosis based follow up With:Urban PLUNKETT Address: [facility] [address], [address] [address]- Business (1) When:12/01/2023 20:36:36 Comments:Call for diagnosis based follow up With:Irasema Zacarias Address: [address], [place] [address]- Business (1) When:12/01/2023 20:36:33 Comments:Call Dr for diagnosis based follow up [facility]07-22-2024 NoteED Patient Education Note Infectious Disease [...] these instructions at home: Medicines ? Take nbrk-jxp-wysgbuy and prescription medicines only as told by [...] and water are not available, use hand fruit worker. ? Check your abscess every day for [...] any questions you pat (more content not included)...[facility]06-25-2024 NoteHNO ID: [id number] Author: JOHN PIERCE PSYD Service: ? Author Type: Psychologist Type: Progress Notes Filed: 11/03/2023 11:33 Note Text: [facility] BEHAVIORAL HEALTH EVALUATION DATE OF SERVICE: 11/01/2023 TIME OF SERVICE: 1:00PM to 2:19PM COST CENTER: [facility] CPT CODE: - 32780 Brief Emotional/Behavioral Assessment with scoring/documentation - [id number] Virtual Psych Diagnostic Eval BILLING CODE: ENDO PSYL MAIN Sherlyn BMI Surgical Pathway Visit type: Psychology Visit SESSION #: 1 The patient signed the Informed Consent for Psychological Evaluation AND Care Form via ITDatabase (see consent dated 10/27/23), and the [facility] care insurance benefits, fees for service, emergency procedures, and the limits of confidentiality that may pertain with any given case were discussed with the patient. The patient was given a copy of the consent form via ITDatabase. I have communicated my name and active licensure. The patient's identity and physical location were verified at the time of this visit. Either the patient or their legal product sales representative has been informed of the [...] technology to benefit from virtual format. Platform: [email or web address] for TweepsMap Address of Patient During Time of Virtual Visit: Pt [address] [facility] [address] [facility] [address] Emergency Contact: Jerrell Ibrahim Emergency Department at [address] [place] [address] IDENTIFYING INFORMATION Ms. Alma Delia Pearl is [...] DX W/WO SPEC BR/WA SPX 03/[address] Dae Reynolds. endometriosis, lasered. Stage??, PCOS ovaries LAPS ABD PRTMANDOMENTUM DX W/WO SPEC BR/WA SPX 08/05/2008 Dr. Natalie Yanez. Operation: Diagnostic laparoscopy (hx. chronic pelvic pain. PAST SURGICAL HISTORY OF 05/12 laser surgery endometrosis TONSILLECTOMY PRIMARY/SECONDARY Tonsillectomy History of psychological complications pos (more content not included)... [facility]06-19-2024 Telephone encounter Note* Telephone Encounter - [...] PSS NOTE: Patient needs scheduled appointment No [facility]06-19-2024 Miscellaneous Notes* Telephone Encounter - Mayco [...] needs scheduled appointment No [facility] Discharge instructions Follow Up Care 09/28/2023 11:29:50 With:Irasema Love Address: [address], [facility] [place] [address]- When:Within 1 Year(s) Comments:annual wellness [facility] 05-21-2024 Telephone encounter [...] PSS NOTE: Patient needs scheduled appointment No [facility]05-21-2024 Miscellaneous Notes* Telephone Encounter - Peyton [...] needs scheduled appointment No [facility] Hospital Discharge instructions Patient Education 09/22/2023 [...] Carrots. Green beans. Tomatoes. Peppers. Onions. Cucumbers. Mayfield sprouts. Grains Whole grains, such as whole-wheat [...] meet with a certified diabetes care and special education aide? Do I need to meet with a dietitian? What number can I call if I have questions? When are the best times to check my blood glucose? Where to find more information: [place] Diabetes Association: diabetes.org Academy of Nutrition and Dietetics: eatright.org National [place] of Diabetes and Digestive and Kidney Diseases: [...] provider. Document Revised: 11/26/2020 Document Reviewed: 11/26/2020 [employer] Patient Education 2022 [employer]. 09/22/2023 10:39:52 Exercising to Lose Weight Exercising [...] your health care provider or diet and institutional nutrition consultant (dietitian). This may include: ?Eating fewer calories. [...] provider. Document Revised: 06/21/2021 Document Reviewed: 06/21/2021 [employer] Patient Education 2022 [employer]. 09/22/2023 10:39:50 BMI for Adults BMI for [...] numbers. This can be done either in [place] (U.S.) or metric measurements. Note that charts and online BMI calculators are available to help you find your BMI quickly and easily without having to do these calculations yourself. To calculate your BMI in [place] (U.S.) measurements: 1.Measure your weight in pounds [...] Centers for Disease Control and Prevention: www.cdc.gov [place] Heart Association: www.heart.org National Heart, Lung, and Blood [place]: www.nhlbi.nih.gov Summary Body mass index (BMI) is a number that is calculated from a person's weight and height. BMI may help estimate how much of a person's weight is composed of fat. BMI can help identify thosewho may be at higher risk for certain medical problems. BMI can be measured using [place] measurements or metric measurements. BMI charts are used to identify whether you are underweight, normal weight, overweight, or obese. This information is not intended to replace advice given to you by your health care provider. Make sure you discuss any questions you have with your health care provider. Document Revised: 01/16/2020 Document Reviewed: 11/23/2019 [employer] Patient Education 2022 [employer]. [facility] 03-18-2024 Hospital Discharge instructions Patient Education 07/25/2023 21:40:17 Nausea, Adult, Vzze-yc-Wsvo Nausea, Adult Nausea is feeling like you [...] fruit juice). ?Low-calorie sports drinks. Eat bland, vwjm-zg-wgnknw foods in small amounts as you are able, such as: ?Bananas. ?Applesauce. ?Rice. ?Low-fat (lean) meats. ?Kennett. ?Crackers. Avoid drinking fluids that have a lot of sugar or caffeine in them. This includes energy drinks, sports drinks, and soda. Avoid alcohol. Avoid spicy or fatty foods. General instructions Take efud-pax-prfwcpc and prescription medicines only as told by [...] cannot use soap and water, use hand fruit worker. Make sure that everyone in your home [...] drink what your doctor tells you. Take bnom-iaa-ktdlvxk and prescription medicines only as told by your doctor. Contact a doctor right away if your symptoms get worse or you have new symptoms. Keep all follow-up visits. This information is not intended to replace advice given to you by your health care provider. Make sure you discuss any questions you have with your health care provider. Document Revised: 10/30/2021 Document Reviewed: 10/30/2021 [employer] Patient Education 2022 [employer]. 07/25/2023 21:40:17 Rectal Bleeding Rectal Bleeding Rectal [...] help reduce bleeding and discomfort: Medicines Take ecae-dyw-kfdqczn and prescription medicines only as told by [...] to keep your urine pale yellow. Take bpdu-qxj-vlbcomd or prescription medicines. Eat foods that are [...] provider. Document Revised: 03/26/2020 Document Reviewed: 03/26/2020 [employer] Patient Education 2022 [employer]. Follow Up Care 07/25/2023 18:18:25 With:Marilia Brown Address: [address] [place] [address], [address] [address]- [phone] Business (1) When:07/28/2023 21:13:49 Comments:Call Dr for diagnosis based follow up With:Irasema Zacarias Address: [address] [place] [address] [address], [address] [place] [phone] Business (1) When:Within 3 Day(s) [facility]02-23-2024 Hospital Discharge instructions Patient Education 07/01/2023 [...] saline washes). ?Medicines that treat allergies (antihistamines). ?Tlrh-ncj-ceyqutg pain relievers. If caused by bacteria, your [...] at home: Medicines Take, use, or apply yevc-uxh-zyvkvjb and prescription medicines only as told by [...] and water are not available, use hand fruit worker. Do not smoke. Avoid being around people [...] provider. Document Revised: 03/30/2022 Document Reviewed: 03/30/2022 [employer] Patient Education 2022 [employer]. [facility] [place] 02-23-2024 NoteHNO ID: [id number] Author: EDMUNDO DEVLIN MD Service: ? 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 Answe (more content not included)...[facility]01-12-2024 Hospital Discharge instructions Patient Education 05/20/2023 [...] makes. Follow these instructions at home: Take galj-ada-mwaftvj and prescription medicines only as told by [...] provider. Document Revised: 10/02/2020 Document Reviewed: 10/02/2020 [employer] Patient Education 2022 [employer]. 05/20/2023 10:35:56 Dysmenorrhea Dysmenorrhea Dysmenorrhea refers to [...] to help relieve pain. General instructions Take mekr-dfz-sftfani and prescription medicines only as told by [...] provider. Document Revised: 12/10/2020 Document Reviewed: 12/10/2020 [employer] Patient Education 2022 [employer]Lab. 05/20/2023 10:35:53 Galactorrhea Galactorrhea Galactorrhea is an [...] rubbing on your nipples. General instructions Take dxdg-xdz-hoakpyu and prescription medicines only as told by [...] provider. Document Revised: 02/23/2021 Document Reviewed: 02/23/2021 [employer] Patient Education 2022 [employer]. [facility] 11-29-2023 Hospital Discharge instructions Patient Education 04/06/2023 16:15:24 Nausea and Vomiting, Adult, Objc-ai-Zduo Nausea and Vomiting, Adult Nausea is feeling [...] fruit juice). ?Low-calorie sports drinks. Eat bland, lbdt-yf-kcxfwy foods in small amounts as you are able, such as: ?Bananas. ?Applesauce. ?Rice. ?Low-fat (lean) meats. ?Kennett. ?Crackers. Avoid drinking fluids that have a lot of sugar or caffeine in them. This includes energy drinks, sports drinks, and soda. Avoid alcohol. Avoid spicy or fatty foods. General instructions Take dgfp-sme-zjrxztt and prescription medicines only as told by your doctor. Drink enough fluid to keep your pee (urine) pale yellow. Wash your hands often with soap and water for at least 20 seconds. If you cannot use soap and water, use hand fruit worker. Make sure that everyone in your home [...] your doctor about eating and drinking. Take qnnk-obv-ajrxidv and prescription medicines only as told by your doctor. Contact your doctor if your symptoms get worse or you have new symptoms. Keep all follow-up visits. This information is not intended to replace advice given to you by your health care provider. Make sure you discuss any questions you have with your health care provider. Document Revised: 10/30/2021 Document Reviewed: 10/30/2021 [employer] Patient Education 2022 [employer]. Follow Up Care 04/06/2023 13:50:03 With:Silvia YOUNG Address: [address] [place] [id number] Business (1) When:04/09/2023 15:52:06 Comments:Follow-up with your primary care provider in 3 to 5 days. If symptoms worsen, do not improve, or new symptoms arise please report back to emergency department for further evaluation. [facility]11-29-2023 Evaluation + Plan noteExtracted from: Title:ED Note Author:Luis Almanza PA-C te:04/06/23 Nausea and vomiting (R11.2: Nausea with vomiting, unspecified) Orders: ondansetron, 4 mg = 2 mL, Injection, IV Push, Once, Stop date 04/06/23 14:00:00 EST, STAT, Start date 04/06/23 14:00:00 EST, 04/06/23 14:00:00 EST ondansetron, 4 mg = 1 tab(s), Oral, q8hr, PRN Nausea/Vomiting, # 30 tab(s), Refills(s) 0, Pharmacy: [id number] #[id number], 173, cm, 04/06/23 13:57:00 EST, Height/Length Dosing, 134.1, kg, 04/06/23 13:57:00 EST, Weight Dosing promethazine, 12.5 mg = 1 supp, Rectal, q4hr, PRN Nausea/Vomiting, # 6 EA, Refills(s) 0, Pharmacy: [id number] #[id number], 173, cm, 04/06/23 13:57:00 EST, Height/Length Dosing, [...] Appointment Date:06/24/2023 10:20:00 AM Scheduled Provider:Irasema Love Location:[facility] Appointment Type: Open Appointment Date:09/22/2023 09:30:00 AM Scheduled Provider: Location:[facility] Appointment Type:FM Medicare Wellness Subsequent Future Scheduled Tests Laboratory* HgbA1c 12/21/22 * Microalbumin Level Urine 12/21/22 * TSH With T4fr Reflex 12/21/22 * Lipid Panel 12/21/22 [facility]11-11-2023 Hospital Discharge instructions Patient Education 03/19/2023 [...] Follow these instructions at home: Medicines Take pwzh-rzn-juycctt and prescription medicines only as told by your health care provider. Ask your health care provider if the medicine prescribed to you: ?Requires you to avoid driving or using heavy machinery. ?Can cause constipation. You may need to take these actions to prevent or treat constipation: ?Drink enough fluid to keep your urine pale yellow. ?Take jnof-lnf-ddtljrw or prescription medicines. ?Eat foods that are [...] provider. Document Revised: 08/17/2019 Document Reviewed: 06/07/2019 [employer] Patient Education 2022 [employer]. Follow Up Care 03/19/2023 13:23:56 With:David Eubanks Address: [address], [place] [address]- Business (1) When:03/22/2023 16:51:25 Comments:Call the office [...] fever, or any new or worsening symptoms. [facility]11-11-2023 Evaluation + Plan noteExtracted from: Title:ED [...] Appointment Date:06/24/2023 10:20:00 AM Scheduled Provider:Irasema Love Location:[facility] Appointment Type: Open Appointment Date:09/22/2023 09:30:00 AM Scheduled Provider: Location:[facility] Appointment Type: Medicare Wellness Subsequent Future Scheduled Tests Laboratory* HgbA1c 12/21/22 * Microalbumin Level Urine 12/21/22 * TSH With T4fr Reflex 12/21/22 * Lipid Panel 12/21/22 [facility]11-06-2023 Hospital Discharge instructions Patient Education 03/14/2023 21:01:40 Asthma, Adult, Bhlv-ai-Kyvp Asthma, Adult Asthma is a condition that [...] (dander). Cockroaches. Pollen. Air pollution (like household practice nurse, wood smoke, smog, or chemical odors). What [...] of polyester or cotton. General instructions Take tjux-kbr-ilgmoog and prescription medicines only as told by [...] pollute the air. These may include household practice nurse, wood smoke, smog, or chemical odors. This information is not intended to replace advice given to you by your health care provider. Make sure you discuss any questions you have with your health care provider. Document Revised: 02/01/2022 Document Reviewed: 02/01/2022 [employer] Patient Education 2022 [employer] 03/14/2023 21:01:38 Cough, Adult, Ovat-mn-Gqgh Cough, Adult A cough helps to clear [...] Follow these instructions at home: Medicines Take mvjg-hly-kvjsjly and prescription medicines only as told by [...] Many things can cause a cough. Take saef-gwc-uacievv and prescription medicines only as told by [...] provider. Document Revised: 06/13/2020 Document Reviewed: 05/14/2019 [employer] Patient Education 2022 [employer]. [facility] [place] 08-13-2023 Hospital Discharge instructions Patient Education 12/19/2022 [...] provider. Document Revised: 09/14/2021 Document Reviewed: 09/14/2021 [employer] Patient Education 2022 [employer]. 12/19/2022 14:41:01 Diabetes Mellitus and Nutrition, Adult [...] Carrots. Green beans. Tomatoes. Peppers. Onions. Cucumbers. Mayfield sprouts. Grains Whole grains, such as whole-wheat [...] meet with a certified diabetes care and special education aide? Do I need to meet with a dietitian? What number can I call if I have questions? When are the best times to check my blood glucose? Where to find more information: [place] Diabetes Association: diabetes.org Academy of Nutrition and Dietetics: eatright.org National [place] of Diabetes and Digestive and Kidney Diseases: [...] provider. Document Revised: 11/26/2020 Document Reviewed: 11/26/2020 [employer] Patient Education 2022 [employer]. 12/19/2022 14:41:01 Diabetes Mellitus and Exercise Diabetes [...] plan? Your health care provider or certified personal finance counselor can help you make a plan for [...] (heat stroke). Where to find more information [place] Diabetes Association: www.diabetes.org Summary Exercising regularly is important for overall health, especially for people who have diabetes mellitus. Exercising has many health benefits. It increases muscle strength and bone density and reduces bodyfat and stress. It also lowers and controls blood glucose. Your health care provider or certified personal finance counselor can help you make an activity plan [...] provider. Document Revised: 01/21/2020 Document Reviewed: 01/21/2020 [employer] Patient Education 2022 [employer]. 12/19/2022 14:41:00 Blood Glucose Monitoring, Adult Blood [...] or if there is an carlo for [employer]. Most glucose meters store a record of [...] mayhave. Where to find more information The [place] Diabetes Association: www.diabetes.org The Association of Diabetes [...] provider. Document Revised: 01/21/2021 Document Reviewed: 01/21/2021 [employer] Patient Education 2022 [employer] Follow Up Care 09/23/2022 10:05:20 With:Irasema Love Address: [address] [place] [address], [facility] [place] [place] [address]- When:Within 6 Month(s) Comments:f/u Brian, YAMINI [facility] 06-15-2023 Hospital Discharge [...] who specializes in diseases of the digestive tract(art handler). How is this treated? There is no [...] Follow these instructions at home: Medicines Take sfbv-amp-eocqwur and prescription medicines only as told by [...] provider. Document Revised: 10/29/2021 Document Reviewed: 10/29/2021 [employer] Patient Education 2022 [employer]. 10/21/2022 18:49:28 Food Choices to Help Relieve [...] health care provider. Replacing nutrients Eat bland, hhno-zk-snkflz foods in small amounts as you are [...] provider. Document Revised: 06/10/2020 Document Reviewed: 06/10/2020 [employer] Patient Education 2022 [employer]. 10/21/2022 18:49:28 Diarrhea, Adult, Kuox-eu-Wtrv Diarrhea, Adult Diarrhea is when you pass [...] sugar or caffeine in them. Eat bland, nnnv-pe-rrhdva foods in small amounts as you are able. These foods include: ?Bananas. ?Applesauce. ?Rice. ?Low-fat (lean) meats. ?Kennett. ?Crackers. Avoid alcohol. Avoid spicy or fatty foods. Medicines Take yiri-sbn-zmfgadj and prescription medicines only as told by your doctor. If you were prescribed an antibiotic medicine, take it as told by your doctor. Do not stop using the antibiotic even if you start to feel better. General instructions Wash your hands often using soap and water. If soap and water are not available, use a hand fruit worker. Others in your home should wash their [...] sold at pharmacies and stores. Eat bland, qcjn-bs-cpourt foods in small amounts as you are [...] provider. Document Revised: 11/04/2021 Document Reviewed: 11/04/2021 [employer] Patient Education 2022 [employer]. Follow Up Care 10/21/2022 15:51:19 With:SAUD BLUM Address: [address] [place] [address] Business (1) When:Within 3 Day(s) [facility]06-15-2023 Evaluation + Plan noteExtracted from: Title:ED [...] Appointment Date:12/21/2022 01:00:00 PM Scheduled Provider:Irasema Love Location:[facility] Appointment Type: Open Appointment Date:09/22/2023 09:30:00 AM Scheduled Provider: Location:[facility] Appointment Type:FM Medicare Wellness Subsequent Future Scheduled Tests Laboratory* TIBC Calculated 12/29/21 * CBC w/ Auto Diff 12/29/21 * Ferritin 12/29/21 * Iron Level 12/29/21 * Reticulocyte Count 12/29/21 [facility]05-08-2023 Miscellaneous Notes* [facility] 8:55 AM EDT Smoking Cessation Navigation Outcome of contact: Left Message Comments: A voicemail has been left for this patient regarding Tobacco Cessation support options. If this patient has any further questions they can email us at [email or web address] or call us at [phone]. eHealth Alignment Mechanic/Smoking Cessation Navigator: Maricruz Garza, [facility] ED documented in this encounter[facility] History of Present illness Narrative* Susan Garcia, PhD - 09/10/2022 2:13 PM EDT Alma Delia Pearl [id number] September 10, 2022 [facility] Bariatric and Metabolic [place] [facility] M61 Psychology Orientation/ Welcome Group CPT: [...] Orders placed by patient request: [facility] Nicotine screens Toxicology screens Plan: Patient to be scheduled for an individual psychology consultation visit. Susan Garcia, Ph.D. Psychologist documented in this encounterAkron [facility]04-12-2023 Evaluation note* Encounter Date Diagnosis Assessment [...] and this has been helpful as well. [facility] Other 03-16-2023 Miscellaneous Notes* Telephone Encounter - Kimberly Velazquez MD - 07/22/2022 11:53 AM EDT Increase mounjaro to 5mg/week documented in this encounterAkron [facility] Hospital02-16-2023 History of Present illness Narrative* Palmira Abbasi MD - 06/24/2022 10:30 AM EST Images from the original note were not included. ENDOCRINE DIABETES EVALUATION Virtual Follow up Visit Patient Name: Alma Delia Pearl Date: 06/24/2022 LV: March 31, 2022 2:28 PM Reason for follow up: Diabetes PCP is MIAN [place] [address] SUBJECTIVE HPI: Alma Delia Pearl is a [...] dose was 10- or 14-day packs used [id number] and 2019. Nothing significant in the past year. She wonders if she has Cushings which has beenexcluded in the past Self-Monitoring Glucose Type of Monitor: [employer] brand - ReliOn Frequency of Monitoring: only [...] meat, more fruits/veggies Has met with a entomology professor close to home - told she does [...] adult (HCC) Crohn's disease (HCC) 2008 in [place] Depressive disorder, not elsewhere classified cymbalta Endometriosis, [...] DX W/WO SPEC BR/WA SPX 03/[address] [place] [address] Dae Reynolds. endometriosis, lasered. Stage??, PCOS [...] by mouth once daily. 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 Kimberly Velazquez MD PGY-5 Endocrinology and Metabolism [place] Seen with attending, Dr. Abbasi STAFF PHYSICIAN [...] SIGNATURE:Palmira Abbasi MD 06/24/22 documented in this encounterAkron [facility]02-13-2023 Miscellaneous Notes* Telephone Encounter - Emily [...] mychart. Emily Haynes MA documented in this encounterAkron [facility]01-19-2023 Miscellaneous Notes* Telephone Encounter - Kimberly Velazquez MD - 05/27/2022 12:58 PM EST Mounjaro lower dose prescribed documented in this encounterAkron Children'[facility] Hospital01-15-2023 Evaluation + Plan note Extracted from: [...] Appointments Appointment Date:09/23/2022 09:30:00 AM Scheduled Provider: [place] Appointment Type:FM Medicare Wellness Subsequent Future Scheduled Tests Laboratory* TIBC Calculated 12/29/21 * CBC w/ Auto Diff 12/29/21 * Ferritin 12/29/21 * Iron Level 12/29/21 * Reticulocyte Count 12/29/21 [facility]01-15-2023 Hospital Discharge instructions Patient Education 05/23/2022 [...] oral rehydration solution (ORS). This is an ugmp-kri-yxdpowu medicine that helps return your body to [...] drinks, sports drinks, and soda. Eat bland, oiul-ut-lzopoe foods in small amounts as you are able. These foods include bananas, applesauce, rice, lean meats, toast, and crackers. Avoid alcohol. Avoid spicy or fatty foods. Medicines Take rtxt-mcu-onkkqal and prescription medicines only as told by your health care provider. If you were prescribed an antibiotic medicine, take it as told by your health care provider. Do notstop using the antibiotic even if you start to feel better. General instructions Wash your hands often using soap and water. If soap and water are not available, use a hand fruit worker. Others in the household should wash their [...] soap and water are not available, usehand fruit worker. Contact a health care provider if your diarrhea gets worse or you have new symptoms. Get help right away if you have signs of dehydration. This information is not intended to replace advice given to you by your health care provider. Make sure you discuss any questions you have with your health care provider. Document Released: 04/15/2003 Document Revised: 09/11/2019 Document Reviewed: 09/29/2018 [employer] Patient Education 2020 [employer]. 05/23/2022 10:02:03 Nausea and Vomiting, Adult Nausea [...] water added (diluted fruit juice). Eat bland, bauw-bu-trnydw foods in small amounts as you are able. These foods include bananas, applesauce, rice, lean meats, toast, and crackers. Avoid fluids that contain a lot of sugar or caffeine, such as energy drinks, sports drinks, and soda. Avoid alcohol. Avoid spicy or fatty foods. General instructions Take jekl-eng-mbbvoju and prescription medicines only as told by your health care provider. Drink enough fluid to keep your urine pale yellow. Wash your hands often using soap and water. If soap and water are not available, use hand fruit worker. Make sure that all people in your [...] eating and drinking to prevent dehydration. Take pbrl-vjf-rclvcaa and prescription medicines only as told by [...] 04/25/2006 Document Revised: 08/17/2019 Document Reviewed: 10/03/2018 [employer] Patient Education 2020 [employer]. 05/23/2022 10:02:03 Abdominal Pain, Adult Abdominal Pain, [...] Follow these instructions at home: Medicines Take pjnh-yed-znrwkqf and prescription medicines only as told by [...] Watch your condition for any changes. Take dhtn-tek-skrmgeo and prescription medicines only as told by [...] 02/02/2006 Document Revised: 09/03/2019 Document Reviewed: 09/03/2019 [employer] Patient Education 2019 [employer]. Follow Up Care 05/23/2022 06:50:20 With:NERISSA RIVERA Address: [address] [place] [phone] Business (1) When:05/26/2022 09:55:53 Comments:Make sure to fill the prescriptions that was prescribed last night. Return to the emergency room ifyour pain recurs, vomiting recurs or any new symptoms. [facility]01-03-2023 Miscellaneous Notes* Telephone Encounter - Kimberly Velazquez MD - 05/11/2022 4:00 PM EST Increase mounjaro to 5mg/week per patient request documented in this encounterAkron Children'[facility] Hospital11-23-2022 Instructions* Patient Instructions* Kimberly Velazquez MD - 03/31/2022 2:16 PM EST [email or web address] Thank you for choosing the [facility] Department of Endocrinology, Diabetes and Metabolism. Did you know that you need to call 48 hours in advance of your scheduled visit, if you are unable to make your appointment? The Endocrinology and Metabolism [place] thanks you for your commitment, because patients not showing to their appointment results in a lost opportunity for patients to receive [facility] health care at the [facility]. To Cancel an appointment, please choose one of the following: - Call the Appointment Call Center at [phone] - From ITDatabase, Go to Appointments - Cancel Appts If cancelling, consider your need to reschedule to prevent further delays in your care. To Schedule an appointment, please choose one of the following: - Call the Appointment Call Center at [phone] - From ITDatabase, Go to Appointments - Request an Appt documented in this encounterAkron Children'S Hospital11-23-2022 History of Present illness Narrative* Jackson [...] MIAN Kolb PA [address] [place] [address] SUBJECTIVE HPI: Alma Delia Pearl is a [...] dose was 10- or 14-day packs used [id number] and 2019. Nothing significant in the past year. She wonders if she has Cushings which has beenexcluded in the past Self-Monitoring Glucose Type of Monitor: [employer] brand - ReliOn Frequency of Monitoring: only [...] meat, more fruits/veggies Has met with a entomology professor close to home - told she does [...] has panic attacks. Arthritis Bipolar 1 disorder ([facility]) BMI 40.0-44.9, adult ([facility]) Crohn's disease ([facility]) 2008 in [place] Depressive disorder, not elsewhere classified cymbalta Endometriosis, [...] DX W/WO SPEC BR/WA SPX 03/[address] [place] [address] Dae Reynolds. endometriosis, lasered. Stage??, PCOS [...] by mouth once daily. 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 Kimberly Velazquez MD PGY-5 Endocrinology and Metabolism [place] Seen with attending, Dr. Gonsalez. [facility] STAFF PHYSICIAN NOTE OF PERSONAL INVOLVEMENT [...] of SERVICE: 9:33 AM documented in this encounterAkron Children'S Hospital08-26-2022 Hospital Discharge instructions Patient Education 12/31/2021 22:02:41 Shortness of Breath, Adult, Bgjc-zj-Leln Shortness of Breath, Adult Shortness of breath [...] Slowly return to your normal activities. Take gezn-cfa-vydtjzt and prescription medicines only as told by [...] 10/11/2008 Document Revised: 09/25/2018 Document Reviewed: 09/25/2018 [employer] Patient Education 2020 [employer] 12/31/2021 22:02:36 Dizziness, Ofto-zg-Lglt Dizziness Dizziness is a common problem. It [...] balance is fine. 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 Take zsrd-sbf-mflrgyn and prescription medicines only as told by [...] 2012 Document Revised: 04/28/2018 Document Reviewed: 05/12/2017 [employer] Patient Education 2020 [employer]. Follow Up Care 12/31/2021 19:48:50 With:Nerissa Hurley Address: [address] [place] [phone] When:01/03/2022 [facility]08-25-2022 Evaluation + Plan noteExtracted from: Title:ED Note Author:Mary Kay Gomez PA-C Date :12/31/21 1. Dizziness (R42: Dizziness and giddiness) Ordered: meclizine, 25 mg = 1 tab(s), Oral, TID, X 5 day(s), # 15 tab(s), Refills(s) 0, Pharmacy: [facility] #[id number], 175, cm, 12/31/21 19:57:00 EDT, Height/Length Dosing, 139.2, kg, 12/31/21 19:57:00 EDT, Weight Dosing 2. Dyspnea (R06.00: Dyspnea, unspecified) Ordered: meclizine, 25 mg = 1 tab(s), Oral, TID, X 5 day(s), # 15 tab(s), Refills(s) 0, Pharmacy: [facility] #[id number], 175, cm, 12/31/21 19:57:00 EDT, Height/Length Dosing, [...] Appointments Appointment Date:09/23/2022 09:30:00 AM Scheduled Provider: Location:[facility] Appointment Type: Medicare Wellness Subsequent Future Scheduled Tests Laboratory* TIBC Calculated 12/29/21 * SARS-CoV-2, MANUEL 03/25/21 * Rapid COVID Antigen ([facility] 05/17/21 * CBC w/ Auto Diff 12/29/21 * Ferritin 12/29/21 * Iron Level 12/29/21 * Reticulocyte Count 12/29/21 [facility]08-19-2022 Hospital Discharge instructions Patient Education 12/25/2021 [...] if you start to feel better. Take bpna-lli-gvestvz and prescription medicines only as told by [...] 06/02/2005 Document Revised: 10/26/2018 Document Reviewed: 10/26/2018 [employer] Patient Education 2020 [employer]. Follow Up Care 12/24/2021 21:33:17 With:Nerissa Rivera Address: [address] [place] [phone] When:12/28/2021 Comments:Take the antibiotics as prescribed you have completed the course, you can use the Zofran, Bentyl asneeded for pain and nausea. Please follow-up with your primary care doctor in the next 2 to 3 days for further evaluation management. Please return the ED for any new or worsening symptoms. [facility]08-18-2022 Evaluation + Plan noteExtracted from: Title:ED [...] Appointment Date:12/29/2021 09:20:00 AM Scheduled Provider:Nerissa Hurley Location:[facility] Appointment Type: ER/Hospital Follow Up Appointment Date:09/23/2022 09:30:00 AM Scheduled Provider: Location[place] [place] [facility] Appointment Type: Medicare Wellness Subsequent Future Scheduled Tests Laboratory* SARS-CoV-2, MANUEL 03/25/21 * Rapid COVID Antigen ([facility]) 05/17/21 [facility]07-06-2022 NoteChief Complaint An interactive audio and [...] 2 diabetes mellitus without complication, unspecified whether terminal gauger insulin use (250.00) (E11.9) Provider Impressions Surgeon: [...] week. 7. Begin elena (more content not included)...[id number] Discharge instructions Patient Education 11/03/2021 13:43:51 [...] height. This can be done either in [place] ([place] or metric measurements. Note that charts are available to help you find your BMI quickly and easily without having to do these calculations yourself. To calculate your BMI in [place] ([place] measurements, your health care provider will: [...] medical problems. BMI can be measured using [place] measurements or metric measurements. To interpret your [...] 01/04/2005 Document Revised: 04/07/2018 Document Reviewed: 03/08/2018 [employer] Patient Education 2020 [employer] 11/03/2021 13:24:30 Mesenteric Adenitis, Adult Mesenteric [...] fever. Follow these instructions at home: Take xxwx-xte-ymfjeon and prescription medicines only as told by [...] 08/08/2017 Document Revised: 01/12/2019 Document Reviewed: 08/08/2017 [employer] Patient Education 2019 [employer]. Follow Up Care 11/02/2021 12:12:21 With:RTC for next regularly scheduled chronic disease management visit - sooner for problems Address: When: Unknown [facility] 06-27-2022 Hospital Discharge [...] fever. Follow these instructions at home: Take kzla-omq-cdgrxqf and prescription medicines only as told by [...] 08/08/2017 Document Revised: 01/12/2019 Document Reviewed: 08/08/2017 [employer] Patient Education [facility]. Follow Up Care 11/01/2021 19:06:33 With:Lacey LAZO Address: [address] [place], [place] [id number] Business (1) When:11/04/2021 21:37:32 Comments:Take the medications as prescribed as needed for pain and nausea. Please follow-up with your primary care doctor in the next 2 to 3 days. Please return to ED for any new or worsening symptoms. [facility]06-26-2022 Evaluation + Plan noteExtracted from: Title:ED [...] Appointments Appointment Date:11/11/2021 01:00:00 PM Scheduled [facility] Type:DM Diabetes Group (FT) Appointment Date:11/24/2021 09:20:00 AM Scheduled Provider:Nerissa Hurley Location:[facility] [place] Appointment Type: Open Appointment Date:12/01/2021 09:00:00 AM Scheduled Provider: [facility] Type:DM Diabetes Group (FT) Appointment Date:09/23/2022 09:30:00 AM Scheduled Provider: Location:[facility] Appointment Type:FM Medicare Wellness Subsequent Future Scheduled Tests Laboratory* SARS-CoV-2, MANUEL 03/25/21 * Rapid COVID Antigen ([facility] 05/17/21 [facility]04-19-2022 Hospital Discharge instructions Follow Up Care 08/25/2021 10:01:14 With:Nerissa Hurley Address: [address] [place], [place] [phone]- When:Within 1 Month(s) [facility] [place] 04-12-2022 Evaluation + Plan note Diagnostic Tests Pending * Hepatitis B Surface Antigen 08/18/21 * RPR with Conf Rfx 08/18/21 * Urine Culture 08/18/21 * Rubella Antibody IgG 08/18/21 * HIV Screen 4th Generation wRfx 08/18/21 Future Scheduled Tests Laboratory* SARS-CoV-2, MANUEL 03/25/21 * Rapid COVID Antigen ([facility] 05/17/21 [facility]11-17-2021 Evaluation + Plan note Future Scheduled Tests Laboratory* SARS-CoV-2, MANUEL 03/25/21 * Rapid COVID Antigen ([facility]) 05/17/21 [facility]09-20-2010 History of Past illness Narrative* Problem Noted Date Resolved Date Neuritis 01/26/2010 11/06/2015 Abdominal pain, unspecified site 12/17/2008 01/31/2009 Spasm of muscle 09/27/2008 01/31/2009 Abnormal coagulation profile 07/31/2008 Endometriosis, site unspecified 01/31/2009 Abdominal pain, generalized 01/08 Morbid obesity 07/09/2008 Irritable bowel syndrome 009 Overview: On Bentyl and Phenergan documented as of this encounter (statuses as of 08/18/2021) [facility] History of Past illness Narrative* Problem Noted Date Resolved Date Neuritis 01/26/2010 11/06/2015 Abdominal pain, unspecified site 12/17/2008 01/31/2009 Spasm of muscle 09/27/2008 01/31/2009 Abnormal coagulation profile 07/31/2008 Endometriosis, site unspecified 01/31/2009 Abdominal pain, generalized 01/08 Morbid obesity 07/09/2008 Irritable bowel syndrome 009 Overview: On Bentyl and Phenergan documented as of this encounter (statuses as of 04/01/2022) [facility] of Past illness Narrative* Problem Noted Date Resolved Date Neuritis 01/26/2010 11/06/2015 Abdominal pain, unspecified site 12/17/2008 01/31/2009 Spasm of muscle 09/27/2008 01/31/2009 Abnormal coagulation profile 07/31/2008 Endometriosis, site unspecified 01/31/2009 Abdominal pain, generalized 01/08 Morbid obesity 07/09/2008 Irritable bowel syndrome 009 Overview: On Bentyl and Phenergan documented as of this encounter (statuses as of 05/13/2022) [facility] of Past illness Narrative* Problem Noted Date Resolved Date Neuritis 01/26/2010 11/06/2015 Abdominal pain, unspecified site 12/17/2008 01/31/2009 Spasm of muscle 09/27/2008 01/31/2009 Abnormal coagulation profile 07/31/2008 Endometriosis, site unspecified 01/31/2009 Abdominal pain, generalized 01/08 Morbid obesity 07/09/2008 Irritable bowel syndrome 009 Overview: On Bentyl and Phenergan documented as of this encounter (statuses as of 05/27/2022) [facility] of Past illness Narrative* Problem Noted Date Resolved Date Neuritis 01/26/2010 11/06/2015 Abdominal pain, unspecified site 12/17/2008 01/31/2009 Spasm of muscle 09/27/2008 01/31/2009 Abnormal coagulation profile 07/31/2008 Endometriosis, site unspecified 01/31/2009 Abdominal pain, generalized 01/08 Morbid obesity 07/09/2008 Irritable bowel syndrome 009 Overview: On Bentyl and Phenergan documented as of this encounter (statuses as of 06/21/2022) [facility] of Past illness Narrative* Problem Noted Date Resolved Date Neuritis 01/26/2010 11/06/2015 Abdominal pain, unspecified site 12/17/2008 01/31/2009 Spasm of muscle 09/27/2008 01/31/2009 Abnormal coagulation profile 07/31/2008 Endometriosis, site unspecified 01/31/2009 Abdominal pain, generalized 01/08 Morbid obesity 07/09/2008 Irritable bowel syndrome 009 Overview: On Bentyl and Phenergan documented as of this encounter (statuses as of 06/25/2022) [facility] of Past illness Narrative* Problem Noted Date Resolved Date Neuritis 01/26/2010 11/06/2015 Abdominal pain, unspecified site 12/17/2008 01/31/2009 Spasm of muscle 09/27/2008 01/31/2009 Abnormal coagulation profile 07/31/2008 Endometriosis, site unspecified 01/31/2009 Abdominal pain, generalized 01/08 Morbid obesity 07/09/2008 Irritable bowel syndrome 009 Overview: On Bentyl and Phenergan documented as of this encounter (statuses as of 07/22/2022) [facility] of Past illness Narrative* Problem Noted Date Resolved Date Neuritis 01/26/2010 11/06/2015 Abdominal pain, unspecified site 12/17/2008 01/31/2009 Spasm of muscle 09/27/2008 01/31/2009 Abnormal coagulation profile 07/31/2008 Endometriosis, site unspecified 01/31/2009 Abdominal pain, generalized 01/08 Morbid obesity 07/09/2008 Irritable bowel syndrome 009 Overview: On Bentyl and Phenergan documented as of this encounter (statuses as of 09/10/2022) [facility] of Past illness Narrative* Problem Noted Date Resolved Date Neuritis 01/26/2010 11/06/2015 Abdominal pain, unspecified site 12/17/2008 01/31/2009 Spasm of muscle 09/27/2008 01/31/2009 Abnormal coagulation profile 07/31/2008 Endometriosis, site unspecified 01/31/2009 Abdominal pain, generalized 01/08 Morbid obesity 07/09/2008 Irritable bowel syndrome 009 Overview: On Douglasyl and Ricaan documented as of this encounter (statuses as of 09/13/2022) [facility] Future Appointments Appointment Date:08/31/2021 01:00:00 PM Scheduled Provider:Steve KINCAID, ABIGAIL, TONI, Kourtney Fleming Location:.DIETARY Appointment Type:DM Diabetes Initial Assessment [address] RD (F Appointment Date:09/22/2021 09:20:00 AM Scheduled Provider:Nerissa Hurley Location:[facility] Appointment Type:FM Open Future Scheduled Tests Laboratory* SARS-CoV-2, MANUEL 03/25/21 * Rapid COVID Antigen ([facility] 05/17/21 [facility] [place] Evaluation + Plan note Future Appointments Appointment Date:08/31/2021 01:00:00 PM Scheduled Provider:Steve KINCAID RDN, Kourtney MUÑOZ [facility] Type:DM Diabetes Initial Assessment [address] RD (F Appointment Date:09/22/2021 09:20:00 AM Scheduled Provider:Nerissa Hurley Location:[facility] Appointment Type: Open Diagnostic Tests Pending * Microalbumin Level Urine 08/25/21 Future Scheduled Tests Laboratory* SARS-CoV-2, MANUEL 03/25/21 * Rapid COVID Antigen ([facility] 05/17/21 [facility] Future App[facility]ments Appointment Date:10/27/2021 09:00:00 AM Scheduled Provider: Location:.DIETARY Appointment Type:DM Diabetes Group (FT) Appointment Date:11/11/2021 01:00:00 PM Scheduled Provider: Location:.DIETARY Appointment Type:DM Diabetes Group (FT) Appointment Date:11/24/2021 09:20:00 AM Scheduled Provider:Nerissa Hurley Location:[facility] Appointment Type:FM Open Appointment Date:01/06/2022 01:00:00 PM Scheduled Provider: Location:.DIETARY Appointment Type:DM Diabetes Group (FT) Appointment Date:09/23/2022 09:30:00 AM Scheduled [facility] Type:FM Medicare Wellness Subsequent Future Scheduled Tests Laboratory* SARS-CoV-2, MANUEL 03/25/21 * Rapid COVID Antigen ([facility] 05/17/21 [facility] Future App[facility]ments Appointment Date:11/11/2021 01:00:00 PM Scheduled Provider: [facility] Appointment Type:DM Diabetes Group () Appointment Date:11/24/2021 09:20:00 AM Scheduled Provider:Nerissa Hurley Location:[facility] [place] Appointment Type: Open Appointment Date:12/01/2021 09:00:00 AM Scheduled [facility]: [facility] Type:DM Diabetes Group () Appointment Date:09/23/2022 09:30:00 AM Scheduled Provider: Location:[facility] Appointment Type:FM Medicare Wellness Subsequent Future Scheduled Tests Laboratory* SARS-CoV-2, MANUEL 03/25/21 * Rapid COVID Antigen ([facility] 05/17/21 [facility] Primary Care Evaluation + Plan note Future Appointments Appointment Date:12/01/2021 09:00:00 AM Scheduled Provider: [facility] Type:DM Diabetes Group () Appointment Date:09/23/2022 09:30:00 AM Scheduled Provider: Location:[facility] Appointment Type:FM Medicare Wellness Subsequent Future Scheduled Tests Laboratory* SARS-CoV-2, MANUEL 03/25/21 * Rapid COVID Antigen ([facility] 05/17/21 [facility]ments Appointment Date:09/23/2022 09:30:00 AM Scheduled Provider: Location:[facility] Appointment Type:FM Medicare Wellness Subsequent Future Scheduled Tests Laboratory* TIBC Calculated 12/29/21 * SARS-CoV-2, MANUEL 03/25/21 * Rapid COVID Antigen ([facility] 05/17/21 * CBC w/ Auto Diff 12/29/21 * Ferritin 12/29/21 * Iron Level 12/29/21 * Reticulocyte Count 12/29/21 [facility] App[facility]ments Appointment Date:12/21/2022 01:00:00 PM Scheduled Provider:Irasema Love Location:[facility] Appointment Type: Open Appointment Date:09/22/2023 09:30:00 AM Scheduled Provider: Location:[facility] Appointment Type:FM Medicare Wellness Subsequent Diagnostic Tests Pending * Enteric Panel by PCR 10/22/22 * Clostridium difficile by PCR 10/22/22 Future Scheduled Tests Laboratory* TIBC Calculated 12/29/21 * CBC w/ Auto Diff 12/29/21 * Ferritin 12/29/21 * Iron Level 12/29/21 * Reticulocyte Count 12/29/21 [facility] App[facility]ments Appointment Date:06/24/2023 10:20:00 AM Scheduled Provider:Irasema Love Location:[facility] Appointment Type: Open Appointment Date:09/22/2023 09:30:00 AM Scheduled Provider: Location:[facility] Appointment Type:FM Medicare Wellness Subsequent Future Scheduled Tests Laboratory* HgbA1c 12/21/22 * Microalbumin Level Urine 12/21/22 * TIBC Calculated 12/29/21 * TSH With T4fr Reflex 12/21/22 * CBC w/ Auto Diff 12/29/21 * Ferritin 12/29/21 * Iron Level 12/29/21 * Lipid Panel 12/21/22 * Reticulocyte Count 12/29/21 [facility] Primary Care Evaluation + Plan note Future Appointments Appointment Date:06/24/2023 10:20:00 AM Scheduled Provider:Irasema Love Location:[facility] Appointment Type: Open Appointment Date:09/22/2023 09:30:00 AM Scheduled Provider: Location:[facility] Appointment Type:FM Medicare Wellness Subsequent Future Scheduled Tests Laboratory* HgbA1c 12/21/22 * Microalbumin Level Urine 12/21/22 * TSH With T4fr Reflex 12/21/22 * Lipid Panel 12/21/22 [facility] [place] Evaluation + Plan note Future Appointments Appointment Date:06/14/2023 04:20:00 PM Scheduled Provider:Irasema Love Location:[facility] Appointment Type: Open Appointment Date:09/22/2023 09:30:00 AM Scheduled Provider: Location:[facility] Appointment Type:FM Medicare Wellness Subsequent Future Scheduled [...] w/CAD if perf and 3D Johnathon 05/20/23 [facility] Primary Care Evaluation + Plan note Future Appointments Appointment Date:06/14/2023 04:20:00 PM Scheduled Provider:Irasema Love Location:[facility] Appointment Type: Open Appointment Date:09/22/2023 09:30:00 AM Scheduled Provider: Location:[facility] Appointment Type:FM Medicare Wellness Subsequent Future Scheduled Tests Laboratory* HgbA1c 12/21/22 * FSH and LH 05/20/23 * Insulin Free and Total 05/20/23 * TSH With T4fr Reflex 05/20/23 * TSH With T4fr Reflex 12/21/22 * Beta hCG Quantitative 05/20/23 * Cortisol 05/20/23 * Lipid Panel 12/21/22 * Prolactin Level 05/20/23 [facility] App[facility]ments Appointment Date:09/22/2023 09:30:00 AM Scheduled Provider: Location:[facility] Appointment Type:FM Medicare Wellness Subsequent Future Scheduled Tests Laboratory* HgbA1c 12/21/22 * FSH and LH 05/20/23 * Insulin Free and Total 05/20/23 * TSH With T4fr Reflex 05/20/23 * TSH With T4fr Reflex 12/21/22 * Beta hCG Quantitative 05/20/23 * Cortisol 05/20/23 * Lipid Panel 8/15/23 * Prolactin Level 05/20/23 [facility] [place] Evaluation + Plan note Future Appointments Appointment Date:09/25/2024 08:00:00 AM Scheduled Provider: Location:[facility] Appointment Type: Medicare Wellness Subsequent Future Scheduled Tests Laboratory* HgbA1c 12/21/22 * FSH and LH 05/20/23 * Insulin Free and Total 05/20/23 * TSH With T4fr Reflex 05/20/23 * TSH With T4fr Reflex 12/21/22 * Beta hCG Quantitative 05/20/23 * Cortisol 05/20/23 * Lipid Panel 12/21/22 * Prolactin Level 05/20/23 [facility] Primary Care Evaluation + Plan noteExtracted from: Title:ED Note Author:Archie GUERRERO, Luis Roa te:11/29/23 Breast abscess (N61.1: Absce ss of the breast and nipple) Orders: acetaminophen-hydrocodone, 1 EA, Tab, Oral, Once, Stop date 11/28/23 20:34:00 EDT, STAT, Start date 11/28/23 20:34:00 EDT acetaminophen-hydrocodone, 1 tab(s), Oral, q6hr for pain for 2 day(s), 8 tab(s), Refill(s) 0, [facility] #[id number], 175, cm, 11/28/23 19:12:00 EDT, Height/Length Dosing, 139, kg, 11/28/23 19:12:00 EDT, Weight Dosing clindamycin, 300 mg = 1 cap(s), Oral, q6hr, X 7 day(s), # 28 cap(s), Refills(s) 0, Pharmacy: [facility] #[id number], 175, cm, 11/28/23 19:12:00 EDT, Height/Length Dosing, 139, kg, 11/28/23 19:12:00 EDT, Weight Dosing clindamycin, 300 mg = 2 cap(s), Cap, Oral, Once, Stop date 11/28/23 20:34:00 EDT, STAT, Start date 11/28/23 20:34:00 EDT, 11/28/23 20:34:00 EDT Future Appointments Appointment Date:01/13/2024 10:00:00 AM Scheduled Provider:KYUNG PAUL PA-C Location:[facility] Appointment Type:URO New Patient Appointment Date:09/25/2024 08:00:00 AM Scheduled Provider: Location:[facility] Appointment Type: Medicare Wellness Subsequent Future Scheduled Tests Laboratory* HgbA1c 12/21/22 * FSH and LH 05/20/23 * Insulin Free and Total 05/20/23 * TSH With T4fr Reflex 05/20/23 * TSH With T4fr Reflex 12/21/22 * Beta hCG Quantitative 05/20/23 * Cortisol 05/20/23 * Lipid Panel 12/21/22 * Prolactin Level 05/20/23 [facility] App[facility]ments Appointment Date:12/09/2023 09:00:00 AM Scheduled Provider:Daron Hernandez MD Location:[facility] Appointment Type:[place] [id number] Appointment Date:01/13/2024 10:00:00 AM Scheduled Provider:KYUNG PAUL PA-C Location:[facility] Appointment Type:URO New Patient Appointment Date:09/25/2024 08:00:00 AM Scheduled Provider: Location:[facility] Appointment Type:FM Medicare Wellness Subsequent Future Scheduled Tests Laboratory* HgbA1c 12/21/22 * FSH and LH 05/20/23 * Insulin Free and Total 05/20/23 * TSH With T4fr Reflex 05/20/23 * TSH With T4fr Reflex 12/21/22 * Beta hCG Quantitative 05/20/23 * Cortisol 05/20/23 * Lipid Panel 12/21/22 * Prolactin Level 05/20/23 [facility] [place] Evaluation + Plan note Future Appointments Appointment Date:12/16/2023 10:30:00 AM Scheduled Provider: Location:[facility] Appointment Type:Surgical PAT FT Appointment Date:12/21/2023 02:00:00 PM Scheduled Provider: Location:[facility] Appointment Type:Surgery FT Appointment Date:01/06/2024 11:40:00 AM Scheduled Provider:Daorn Hernandez MD Location:[facility] Appointment Type: Post Op 15 Appointment Date:01/13/2024 10:00:00 AM Scheduled Provider:KYUNG PAUL PA-C Location:[facility] Appointment Type:URO New Patient Appointment Date:09/25/2024 08:00:00 AM Scheduled Provider: Location:[facility] Appointment Type: Medicare Wellness Subsequent Future Scheduled Tests Laboratory* HgbA1c 12/21/22 * FSH and LH 05/20/23 * Insulin Free and Total 05/20/23 * TSH With T4fr Reflex 05/20/23 * TSH With T4fr Reflex 12/21/22 * Beta hCG Quantitative 05/20/23 * Cortisol 05/20/23 * Lipid Panel 12/21/22 * Prolactin Level 05/20/23 [facility] [place] Evaluation + Plan note Future Appointments Appointment Date:12/21/2023 02:00:00 PM Scheduled Provider: Location:[facility] Appointment Type:Surgery FT Appointment Date:01/06/2024 11:40:00 AM Scheduled Provider:Daron Hernandez MD Location:[facility] Appointment Type: Post Op 15 Appointment Date:01/13/2024 10:00:00 AM Scheduled Provider:KYUNG PAUL PA-C Location:[facility] Appointment Type:URO New Patient Appointment Date:09/25/2024 08:00:00 AM Scheduled Provider: Location:[facility] Appointment Type:FM Medicare Wellness Subsequent Future Scheduled Tests Laboratory* HgbA1c 12/21/22 * FSH and LH 05/20/23 * Insulin Free and Total 05/20/23 * TSH With T4fr Reflex 05/20/23 * TSH With T4fr Reflex 12/21/22 * Beta hCG Quantitative 05/20/23 * Cortisol 05/20/23 * Lipid Panel 12/21/22 * Prolactin Level 05/20/23 [facility] + Plan note Future Appointments Appointment Date:01/05/2024 02:20:00 PM Scheduled Provider:Daron Hernandez MD Location:[facility] Appointment Type:GS Post Op 15 Appointment Date:01/13/2024 10:00:00 AM Scheduled Provider:KYUNG PAUL PA-C Location:[facility] Appointment Type:URO New Patient Appointment Date:09/25/2024 08:00:00 AM Scheduled Provider: Location:[facility] Appointment Type:FM Medicare Wellness Subsequent Future Scheduled Tests Laboratory* FSH and LH 05/20/23 * Insulin Free and Total 05/20/23 * TSH With T4fr Reflex 05/20/23 * Beta hCG Quantitative 05/20/23 * Cortisol 05/20/23 * Prolactin Level 05/20/23 [facility] evaluation + Plan note Future Appointments Appointment Date:01/13/2024 10:00:00 AM Scheduled Provider:KYUNG PAUL PA-C Location:[facility] Appointment Type:URO New Patient Appointment Date:09/25/2024 08:00:00 AM Scheduled Provider: Location:[facility] Appointment Type:FM Medicare Wellness Subsequent Future Scheduled Tests Laboratory* FSH and LH 05/20/23 * Insulin Free and Total 05/20/23 * TSH With T4fr Reflex 05/20/23 * Beta hCG Quantitative 05/20/23 * Cortisol 05/20/23 * Prolactin Level 05/20/23 [facility] General Surgery [place] Evaluation + Plan note Future Appointments Appointment Date:09/25/2024 08:00:00 AM Scheduled Provider: Location:[facility] Appointment Type:FM Medicare Wellness Subsequent Future Scheduled Tests Laboratory* FSH and LH 05/20/23 * Insulin Free and Total 05/20/23 * TSH With T4fr Reflex 05/20/23 * Beta hCG Quantitative 05/20/23 * Cortisol 05/20/23 * Prolactin Level 05/20/23 [facility] evaluation note* Diagnosis Severe persistent asthma without complication Dyspnea, unspecified type Obesity, unspecified classification, unspecified obesity type, unspecified whether serious comorbidity present Allergic rhinitis due to pollen, unspecified seasonality Sleep apnea, unspecified type documented in this encounter [facility] note* Diagnosis Abnormal glucose- Primary Other abnormal glucose Class 3 severe obesity due to excess calories with serious comorbidity and body mass index (BMI) of 40.0 to 44.9 in adult (HCC) PCOS (polycystic ovarian syndrome) Polycystic ovaries documented in this encounter [facility] note* Diagnosis Class 3 severe obesity due to excess calories without serious comorbidity with body mass index (BMI) of 40.0 to 44.9 in adult (HCC)- Primary PCOS (polycystic ovarian syndrome) Polycystic ovaries Type 2 diabetes mellitus without complication, without long-term current use of insulin (HCC) documented in this encounter [facility] note* Diagnosis Psychological factors affecting morbid obesity ([facility])- Primary Psychic factors associated with diseases classified elsewhere Tobacco use disorder documented in this encounter [facility] noteNo [facility] [place] Other Evaluation noteAdtuitive [place] [facility]* Diagnosis Type 2 diabetes mellitus without complication, without long-term current use of insulin (HCC) Class 3 severe obesity with serious comorbidity and body mass index (BMI) of 40.0 to 44.9 in adult, unspecified obesity type (HCC) documented in this encounter [facility] note* Diagnosis Type 2 diabetes mellitus without complication, without long-term current use of insulin (HCC) Class 3 severe obesity with serious comorbidity and body mass index (BMI) of 40.0 to 44.9 in adult, unspecified obesity type (HCC) documented in this encounter [facility] general Narrative - Reported* Type Description [...] surgery (2017) Hospitalization History blood loss, rectal 12- [facility] Other History general Narrative - [facility] Other History of Present illness Narrative* Initial [...] patient receives most of her care in [place]. Her PCP is a nurse practitioner, Violet. [...] nausea and stomach cramps to the Ozempic. [facility] Work Phone: History of Present illness Narrative* [...] patient receives most of her care in [place]. Her PCP is a nurse practitioner, Violet. [...] nausea and stomach cramps to the Ozempic. [id number] [place] Work Phone: History of Present illness Narrative* [...] patient receives most of her care in [place]. Her PCP is a nurse practitioner, Violet. [...] nausea and stomach cramps to the Ozempic. [facility] Work Phone: History of Present illness Narrative* [...] patient receives most of her care in [place]. Her PCP is a nurse practitioner, Violet. [...] nausea and stomach cramps to the Ozempic. [facility] Work Phone: Hospital course Narrative No data available for this section [facility] No data available for this section [facility] No data available for this section [facility] Summary Purpose Family History No Family [...] this section No Family History Records Found No data available [...] FoundDocuments on File Type Date Recorded Patient Pediatric Care Coordinator Expl anation Advance Directive(s) Chief Complaint * [...] adult (HCC) Procedures CONSULT [facility] OFFICE/OUTPATIENT [facility] 60-74 MINUTES Jackson Cox MD [address] [place] [address] Referral ID Status Reason Start Date Expiration Date Visits Requested Visits Authorized [id number] Pending Review PCP Requested Referral 2 03/31/2023 1 1 Additional Source Comments INFORMATION SOURCE (unrecogn ized section and content) DATE CREATED AUTHOR 10/31/2017 [facility] DATE CREATED AUTHOR AUTHOR'S ORGANIZ ATION 05/15/2021 [facility] dical Specialist DATE CREATED AUTHOR AUTHOR'S ORGANIZ ATION 11/11/2021 [facility] DATE CREATED AUTHOR AUTHOR'S ORGANIZ ATION 06/12/2022 [facility] DATE CREATED AUTHOR AUTHOR'S ORGANIZ ATION 11/05/2023 [facility] DATE CREATED AUTHOR AUTHOR'S ORGANIZ ATION 12/19/2023 [facility] DATE CREATED AUTHOR AUTHOR'S ORGANIZ ATION 12/24/2023 [facility] DATE CREATED AUTHOR AUTHOR'S ORGANIZ ATION 12/27/2023 [facility] DATE CREATED AUTHOR AUTHOR'S ORGANIZ ATION 01/04/2024 [facility] dical Specialists EPIC DATE CREATED AUTHOR AUTHOR'S ORGANIZ ATION 01/15/2024 [facility] Source Comments (unrecognize d section and content) In the event this informatio n is protected by the Federal Confidentiality of Alcohol and Drug Abuse Patient Records regulations: The Federal rules restrict any use of the information to criminally investigate or prosecute any alcohol or drug abuse patient.[facility] the event this information is protected by the Federal Confidentiality of Alcohol and Drug Abuse Patient Records regulations: The Federal rules restrict any use of the information to criminally investigate or prosecute any alcohol or drug abuse patient.[facility] HospitalIn the event this information is protected by the Federal Confidentiality of Alcohol and Drug Abuse Patient Records regulations: The Federal rules restrict any use of the information to criminally investigate or prosecute any alcohol or drug abuse patient.[facility] Hospital[facility] the event this information is protected by the Federal Confidentiality of Alcohol and Drug Abuse Patient Records regulations: The Federal rules restrict any use of the information to criminally investigate or prosecute any alcohol or drug abuse patient.[facility] Hospital[facility] the event this information is protected by the Federal Confidentiality of Alcohol and Drug Abuse Patient Records regulations: The Federal rules restrict any use of the information to criminally investigate or prosecute any alcohol or drug abuse patient.[facility] Hospital[facility] the event this information is protected by the Federal Confidentiality of Alcohol and Drug Abuse Patient Records regulations: The Federal rules restrict any use of the information to criminally investigate or prosecute any alcohol or drug abuse patient.[facility] HospitalIn the event this information is protected by the Federal Confidentiality of Alcohol and Drug Abuse Patient Records regulations: The Federal rules restrict any use of the information to criminally investigate or prosecute any alcohol or drug abuse patient.[facility] HospitalIn the event this information is protected by the Federal Confidentiality of Alcohol and Drug Abuse Patient Records regulations: The Federal rules restrict any use of the information to criminally investigate or prosecute any alcohol or drug abuse patient.[facility] HospitalIn the event this information is protected by the Federal Confidentiality of Alcohol and Drug Abuse Patient Records regulations: The Federal rules restrict any use of the information to criminally investigate or prosecute any alcohol or drug abuse patient.[facility] Hospital[facility] the event this information is protected by the Federal Confidentiality of Alcohol and Drug Abuse Patient Records regulations: The Federal rules restrict any use of the information to criminally investigate or prosecute any alcohol or drug abuse patient.[facility] HospitalIn the event this information is protected by the Federal Confidentiality of Alcohol and Drug Abuse Patient Records regulations: The Federal rules restrict any use of the information to criminally investigate or prosecute any alcohol or drug abuse patient.[facility] Reason for Visit (unrecogniz ed section and content) Reason Comments Refill Request Reason Comments Consult Reason Comments Prep for virtual visit Reason Comments Obesity Medical Weight Management Non-insulin Dependent Diabetes Mellitus Reason Comments Obesity Reason Comments Smoking Cessation Care Teams (unrecognized sec tion and content) Lifter Driver Relationship Specialty Start Date End Date Keila Lynch PCP - General Family Practice 04/12/16 David Eubanks Referring Neurology 02/11/20 Lifter Driver Relationship Specialty Start Date End Date Keila Lynch PCP - General Family Medicine 04/12/16 David Eubanks Referring Neurology 02/11/20 Lifter Driver Relationship Specialty Start Date End Date Keila Lynch PCP - General Family Medicine 04/12/16 David Eubanks Referring Neurology 02/11/20 Lifter Driver Relationship Specialty Start Date End Date Keila Lynch PCP - General Family Medicine 04/12/16 David Eubanks Referring Neurology 02/11/20 Lifter Driver Relationship Specialty Start Date End Date Keila Lynch PCP - General Family Medicine 04/12/16 David Eubanks Referring Neurology 02/11/20 Lifter Driver Relationship Specialty Start Date End Date Keila Lynch PCP - General Family Medicine 04/12/16 David Eubanks Referring Neurology 02/11/20 Lifter Driver Relationship Specialty Start Date End Date Keila Lynch PCP - General Family Medicine 04/12/16 David Eubanks Referring Neurology 02/11/20 Lifter Driver Relationship Specialty Start Date End Date Keila Lynch PA-C PCP - General Family Medicine 04/12/16 David Eubanks DO Referring Neurology 02/11/20 Lifter Driver Relationship Specialty Start Date End Date Keila [...] BE BASED ON THE PRIMARY CLINICAL RECORDS. [facility]. provides no warranty or guarantee of the accuracy or completeness of information in this document.
[2024-01-27 11:13] LABS: Age Gdln ACOG Testing Note (.); HPV Aptima Negative (Negative); IGP, Aptima HPV, rfx 16/18,45 Note (.)
== END 2024-01-23 20:55 | disposition home or self-care (01) ==
LOC: LAB 20:54
PROVIDERS: Visit Provider Physician Assistant
DX: Z01.419 Encounter for gynecological examination (general) (routine) without abnormal findings (principal)
CPT/HCPCS: 87624; 88175

== ENCOUNTER 2025-01-23 11:59 | Outpatient (REF) | payer MEDICARE, MEDICAID, SELFPAY ==
--- OUTSIDE RECORDS SUMMARY | 2024-12-07 05:45 | XMS_ITS ---
Author Organization [facility] es Address [address] [place] [address] Care Team Providers Care Drafter Name Role Phone Cherie Brown Primary Care Provider [phone] Dae Tejada Unavailable [phone] REASON FOR VISIT 1 month f/u Social History Sex Assigned At : Social History Observation Description Sex Assigned At Female Encounters Encounter Location Date Provider Diagnosis [facility] [address] [place] [address] 2024 Dae Tejada Plan Of Treatment Next Appt Details Provider Name:Cherie Brown, 0 01/31/2025 11:00:00 AM, [address] [place], [address], Provider Name:Dae Damon, 0 06/11/2025 08:00:00 AM, [address] [place], [address], Progress Notes * ALMA DELIA NORTONDOB: 5 (39 yo F)Acc No.[id number]:12/07/2024 F/U - Patient Patient: ALMA DELIA HERNANDEZ Provider: MARIE Guaman :1985 A ge:39 Y S ex:Female Date:12/07/2024 Address:[address], [address] , [place], [id number] Pcp:Cherie Brown Subjective: * Chief Complaints: * 1 . 1 month f/u bh. Objective: Therapeutic Interventions: Assessment: Plan: * Images: Care Plan Details* * Electronic signature of MARIE Bush ph on 01/23/2025 at 10:01 AM EDT Sign off status: Pending * Provider: MARIE Guaman Date: 0 12/07/2024 Generated for Masoud jordan/Jo/Aston on: 0 01/23/2025 10:01 AM EDT
--- OUTSIDE RECORDS SUMMARY | 2024-12-19 10:00 | XMS_ITS ---
Author Organization [facility] es Address [address] [place] [address] Care Team Providers Care Event Marketing Representative Name Role Phone Cherie Brown Primary Care Provider [phone] [place] Porter [phone] REASON FOR VISIT PROPHY- 45 MIN Social History Sex Assigned At : Social History Observation Description Sex Assigned At Female Encounters Encounter Location Date Provider Diagnosis [facility] [address] [place] [address] 12/19/2024 Albania Porter Plan Of Treatment Next Appt Details Provider Name:Cherie Brown, 0 01/31/2025 11:00:00 AM, [address] [place], [address], Provider Name:Dae Damon, 0 06/11/2025 08:00:00 AM, [address] [place], [address], Progress Notes * ALMA DELIA NORTONDOB: 5 (39 yo F)Acc No.[id number]:12/19/2024 Patient: ALMA DELIA HERNANDEZ Provider: Christina Rivers :1985 A ge:39 Y S ex:Female Date:12/19/2024 Address:[address], [address] , [place], [id number] Pcp:Cherie Brown Subjective: * Chief Complaints: * 1 . PROPHY- 45 MIN. * Medical History: Objective: * Vitals: Assessment: Plan: * Treatment: * Images: * Electronic signature of Mary Porter on 01/23/2025 at 10:01 AM EDT Sign off status: Pending * Provider: Christina Rivers Date: 0 12/19/2024 Generated for Masoud jordan/Jo/Aston on: 0 01/23/2025 10:01 AM EDT
--- OUTSIDE RECORDS SUMMARY | 2025-01-16 08:15 | XMS_ITS ---
Author Organization [facility] Address [address] [place] [address] Care Team Providers Care Capacity Planning Engineer Name Role Phone RADHA MAKI Primary Care Provider May Mildred Shields Unavailable [phone] Rod Pastor Unavailable [phone] REASON FOR VISIT back Problems Problem Type SNOMED Code ICD Code Onset Dates Problem Status W/U Status Risk Notes Problem Neurogenic claudication (750750427) Lumbar stenosis with neurogenic claudication (M48.062) Active confirmed Problem Sciatica (76096744) Lumbago of lumbar region with sciatica (M54.40) Active confirmed Problem Post-laminectomy syndrome (96632177) Post laminectomy syndrome (M96.1) Active confirmed Encounters Encounter Location Date Provider Diagnosis [facility] [address] [place] [address] 01/16/2025 Rod Pastor Lumbar stenosis with neurogenic claudication M48.062 ; Lumbago of lumbar region with sciatica M54.40 and Post laminectomy syndrome M96.1 Assessments Encounter Date Diagnosis (ICD Code) Assessment Notes Treatment Notes Treatment Clinical Notes Section Notes 01/16/2025 Lumbar stenosis with neurogenic claudication (ICD-10 - M48.062) NUMBER OF DIAGNOSES AND MANAGEMENT OPTIONS: This note was created using voice recognition software and was not corrected for typographical or grammatical errors and may have unintended errors I spent 30 minutes with the patient with over 50% for direct face to face counseling and coordination of care. 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 Capellan with right leg numbness inability to walk she is in physical therapy now [facility] 12 sessions that is helping a lot from when it started is stabbing aching back pain radiating with burning to the right thigh with numbness on Lyrica has hypertension on Mounjaro has gastroesophageal reflux disease worse standing better laying 90% back 10% legs tried chiropractic treatment epidural steroid injection in the past has asthma fibromyalgia migraines anemia MALA 42 VAS 2 better sleeping which is tolerable sitting okay standing on the right leg pain coming back radiating to the foot 10 minutes of standing walking parking lot distance with neurogenic claudication severe central canal stenosis at L4-5 with foraminal stenosis moderate on MRI lumbar spine December 17, 2024 at [facility] surgery as a last option discussed otherwise she will continue with medical management as she is getting better and it looks like her previous surgery was at L5-S1. Established problems stable as noted above. Amount/Complexity of data reviewed: I reviewed radiology tests as above. I reviewed clinical lab and medicine tests I reviewed and summarized old records and gathered history from someone other than the patient, including] and discussed with another MD health care provider as needed including I performed independent visualization image and reports as noted above. Risk of complications and morbidity/mortality is high in this patient with an abrupt change in neurologic status with threat to bodily function and/or life. Other chronic illness noted above. Diagnostic procedures: reviewed above. Management options: to include over the counter drugs, prescription drug management, physical/occupation al therapy, possible elective major surgery. 01/16/2025 Lumbago of lumbar region with sciatica (ICD-10 - M54.40) NUMBER OF DIAGNOSES AND MANAGEMENT OPTIONS: This note was created using voice recognition software and was not corrected for typographical or grammatical errors and may have unintended errors I spent 30 minutes with the patient with over 50% for direct face to face counseling and coordination of care. 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 Capellan with right leg numbness inability to walk she is in physical therapy now [facility] 12 sessions that is helping a lot from when it started is stabbing aching back pain radiating with burning to the right thigh with numbness on Lyrica has hypertension on Mounjaro has gastroesophageal reflux disease worse standing better laying 90% back 10% legs tried chiropractic treatment epidural steroid injection in the past has asthma fibromyalgia migraines anemia MALA 42 VAS 2 better sleeping which is tolerable sitting okay standing on the right leg pain coming back radiating to the foot 10 minutes of standing walking parking lot distance with neurogenic claudication severe central canal stenosis at L4-5 with foraminal stenosis moderate on MRI lumbar spine December 17, 2024 at [facility] surgery as a last option discussed otherwise she will continue with medical management as she is getting better and it looks like her previous surgery was at L5-S1. Established problems stable as noted above. Amount/Complexity of data reviewed: I reviewed radiology tests as above. I reviewed clinical lab and medicine tests I reviewed and summarized old records and gathered history from someone other than the patient, including] and discussed with another MD health care provider as needed including I performed independent visualization image and reports as noted above. Risk of complications and morbidity/mortality is high in this patient with an abrupt change in neurologic status with threat to bodily function and/or life. Other chronic illness noted above. Diagnostic procedures: reviewed above. Management options: to include over the counter drugs, prescription drug management, physical/occupation al therapy, possible elective major surgery. 01/16/2025 Post laminectomy syndrome (ICD-10 - M96.1) NUMBER OF DIAGNOSES AND MANAGEMENT OPTIONS: This note was created using voice recognition software and was not corrected for typographical or grammatical errors and may have unintended errors I spent 30 minutes with the patient with over 50% for direct face to face counseling and coordination of care. 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 Capellan with right leg numbness inability to walk she is in physical therapy now [facility] 12 sessions that is helping a lot from when it started is stabbing aching back pain radiating with burning to the right thigh with numbness on Lyrica has hypertension on Mounjaro has gastroesophageal reflux disease worse standing better laying 90% back 10% legs tried chiropractic treatment epidural steroid injection in the past has asthma fibromyalgia migraines anemia MALA 42 VAS 2 better sleeping which is tolerable sitting okay standing on the right leg pain coming back radiating to the foot 10 minutes of standing walking parking lot distance with neurogenic claudication severe central canal stenosis at L4-5 with foraminal stenosis moderate on MRI lumbar spine December 17, 2024 at [facility] surgery as a last option discussed otherwise she will continue with medical management as she is getting better and it looks like her previous surgery was at L5-S1. Established problems stable as noted above. Amount/Complexity of data reviewed: I reviewed radiology tests as above. I reviewed clinical lab and medicine tests I reviewed and summarized old records and gathered history from someone other than the patient, including] and discussed with another MD health care provider as needed including I performed independent visualization image and reports as noted above. Risk of complications and morbidity/mortality is high in this patient with an abrupt change in neurologic status with threat to bodily function and/or life. Other chronic illness noted above. Diagnostic procedures: reviewed above. Management options: to include over the counter drugs, prescription drug management, physical/occupation al therapy, possible elective major surgery. Plan Of Treatment No Information History and Physical Notes * HPI (History of Present Illness) Category Sub-Category Detail Notes Category Not es New/Follow-up Patient This note was created using voice recognition software and was not corrected for typographical or grammatical errors and may have unintended errors I spent 30 minutes with the patient with over 50% for direct face to face counseling and coordination of care. 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 Capellan with right leg numbness inability to walk she is in physical therapy now [facility] 12 sessions that is helping a lot from when it started is stabbing aching back pain radiating with burning to the right thigh with numbness on Lyrica has hypertension on Mounjaro has gastroesophageal reflux disease worse standing better laying 90% back 10% legs tried chiropractic treatment epidural steroid injection in the past has asthma fibromyalgia migraines anemia MALA 42 VAS 2 better sleeping which is tolerable sitting okay standing on the right leg pain coming back radiating to the foot 10 minutes of standing walking parking lot distance with neurogenic claudication severe central canal stenosis at L4-5 with foraminal stenosis moderate on MRI lumbar spine December 17, 2024 at [facility] surgery as a last option discussed otherwise she will continue with medical management as she is getting better and it looks like her previous surgery was at L5-S1. Examination Category Sub-Category Detail Notes Category Not es General Examination General Appearance: Patient is well developed, well nourished Cardiovascular: regular rate and rhythm, no carotid bruit. Lungs: clear to auscultation Abdomen: soft, nontender, nondistended Musculoskeletal: gait and station normal Motor: arms, legs normal strength Strength: arms, legs, symmetric without atrophy or abnormal movements Neurological Examination: Oriented to person, place and time Recent and remote memory normal Attention span-concentration normal Language fluent speech Fund of knowledge full Vision normal, visual jamil full Pupils equally reactive to light and extraocular movements intact Facial sensation and symmetry and motor function face normal, corneal reflex intact Hearing equal to bilateral finger rub Palatal movement symmetric Shoulder shrug normal Tongue protrusion midline Sensation equal in arms and legs Deep tendon reflexes symmetric in arms and legs, no pathologic reflexes noted Coordination normal in arms and legs Full range of motion in spine with normal flexion, extension, lateral tilt and turn All other as noted above. Progress Notes * Tri PEARL LDOB: [birth year] (39 yo F)Acc No.[id number]:01/16/2025 Progress Notes Patient: Tri Alvarado Provider: Rachel Pastor M.D. :1985 A ge:39 Y S ex:Female Date:01/16/2025 Address:[address] [place], [place] [id number] Pcp:CHAYITO ROGEL Subjective: * Chief Complaints: * B ack * HPI: N ew/Follow-up Patient: This note was created using voice recognition software and was not corrected for typographical or grammatical errors and may have unintended errors I spent 30 minutes with the patient with over 50% for direct face to face counseling and coordination of care. 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 Capellan with right leg numbness inability to walk she is in physical therapy now [facility] 12 sessions that is helping a lot from when it started is stabbing aching back pain radiating with burning to the right thigh with numbness on Lyrica has hypertension on Mounjaro has gastroesophageal reflux disease worse standing better laying 90% back 10% legs tried chiropractic treatment epidural steroid injection in the past has asthma fibromyalgia migraines anemia MALA 42 VAS 2 better sleeping which is tolerable sitting okay standing on the right leg pain coming back radiating to the foot 10 minutes of standing walking parking lot distance with neurogenic claudication severe central canal stenosis at L4-5 with foraminal stenosis moderate on MRI lumbar spine December 17, 2024 at [facility] surgery as a last option discussed otherwise she will continue with medical management as she is getting better and it looks like her previous surgery was at L5-S1. Objective: * Examination: G eneral Examination: G eneral Appearance: Patient is well developed, well nourished Cardiovascular: regular rate and rhythm, no carotid bruit. Lungs: clear to auscultation Abdomen: soft, nontender, nondistended Musculoskeletal: gait and station normal Motor: arms, legs normal strength Strength: arms, legs, symmetric without atrophy or abnormal movements Neurological Examination: Oriented to person, place and time Recent and remote memory normal Attention span-concentration normal Language fluent speech Fund of knowledge full Vision normal, visual jamil full Pupils equally reactive to light and extraocular movements intact Facial sensation and symmetry and motor function face normal, corneal reflex intact Hearing equal to bilateral finger rub Palatal movement symmetric Shoulder shrug normal Tongue protrusion midline Sensation equal in arms and legs Deep tendon reflexes symmetric in arms and legs, no pathologic reflexes noted Coordination normal in arms and legs Full range of motion in spine with normal flexion, extension, lateral tilt and turn All other as noted above. Assessment: * Assessment: 1. L umbar stenosis with neurogenic claudication - M48.062 (Primary) 2 . L umbago of lumbar region with sciatica - M54.40 3 . P ost laminectomy syndrome - M96.1 NUMBER OF DIAGNOSES AND DONNA GEMENT OPTIONS: This note was created using voice recognition software and was not corrected for typographical or grammatical errors and may have unintended errors I spent 30 minutes with the patient with over 50% for direct face to face counseling and coordination of care. 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 Capellan with right leg numbness inability to walk she is in physical therapy now [facility] 12 sessions that is helping a lot from when it started is stabbing aching back pain radiating with burning to the right thigh with numbness on Lyrica has hypertension on Mounjaro has gastroesophageal reflux disease worse standing better laying 90% back 10% legs tried chiropractic treatment epidural steroid injection in the past has asthma fibromyalgia migraines anemia MALA 42 VAS 2 better sleeping which is tolerable sitting okay standing on the right leg pain coming back radiating to the foot 10 minutes of standing walking parking lot distance with neurogenic claudication severe central canal stenosis at L4-5 with foraminal stenosis moderate on MRI lumbar spine December 17, 2024 at [facility] surgery as a last option discussed otherwise she will continue with medical management as she is getting better and it looks like her previous surgery was at L5-S1. Established problems stable as noted above. Amount/Complexity of data reviewed: I reviewed radiology tests as above. I reviewed clinical lab and medicine tests I reviewed and summarized old records and gathered history from someone other than the patient, including] and discussed with another MD health care provider as needed including I performed independent visualization image and reports as noted above. Risk of complications and morbidity/mortality is high in this patient with an abrupt change in neurologic status with threat to bodily function and/or life. Other chronic illness noted above. Diagnostic procedures: reviewed above. Management options: to include over the counter drugs, prescription drug management, physical/occupational therapy, possible elective major surgery. Billing Information: * Visit Code: [id number] OFFICEOUTPATIENT VISIT, NEW. * Sign off status: Completed true * Provider: Rachel Pastor M.D. Date: 01/16/2025 Generated for Masoud jordan/Jo/Aleahitting on: 01/23/2025 12:03 PM EDT
--- OUTSIDE RECORDS SUMMARY | 2025-01-22 04:30 | XMS_ITS ---
Author Organization [facility] es Address [address] [place] [address] Care Team Providers Care Body Recall Instructor Name Role Phone Cherie Brown Primary Care Provider Demetra Magallanes Unavailable [phone] REASON FOR VISIT FILLING Social History Sex Assigned At : Social History Observation Description Sex Assigned At Female Encounters Encounter Location Date Provider Diagnosis [facility] [address] [place] [address] 01/22/2025 Demetra Anderson Plan Of Treatment Next Appt Details Provider Name:Cherie Brown, 0 01/31/2025 11:00:00 AM, [address] [place], [address], Provider Name:Dae Damon, 0 06/11/2025 08:00:00 AM, [address] [place], [address], Progress Notes * ALMA DELIA NORTONDOB: 5 (39 yo F)Acc No.[id number]:01/22/2025 Patient: ALMA DELIA HERNANDEZ Provider: Keisha ANDERSON DDS :1985 A ge:39 Y S ex:Female Date:01/22/2025 Address:[address] [place], [place] Pcp:Cherie Brown Subjective: * Chief Complaints: * 1 . FILLING. * Medical History: Objective: * Vitals: Assessment: Plan: * Treatment: * Images: * Electronic signature of Becka Anderson DDS on 01/23/2025 at 10:01 AM EDT Sign off status: Pending * Provider: Keisha ANDERSON DDS Date: 0 01/22/2025 Generated for Masoud jordan/Jo/Aleahitting on: 01/23/2025 10:01 AM EDT
--- OUTSIDE RECORDS SUMMARY | 2025-01-23 10:00 | XMS_ITS | Encounter Summary ---
Author Organization [facility] Address [address] [place] [address] Care Team Providers Care Bad Work Gatherer Name Role Phone Mustapha Barnes DO Unavailable [phone] Rell Irasema E COMMERCE DEVELOPER Unavailable [phone] Reason for Visit * Reason Comments Well Women Visit Encounter Details Date Type Department Care Team ([facility] Contact Info) Description 01/23/2025 10:00 AM EDT Office Visit [facility] [address] [place] [address] Nery Carver PA [address] [place], [id number] Well woman exam with routine gynecological exam; UTI symptoms Social History Tobacco Use Types Packs/Day Years Used Date Smoking Tobacco: Never Smokeless Tobacco: Never Alcohol Use Standard Drinks/Week Comments Not Currently 0 (1 standard drink = 0.6 oz pur e alcohol) caffeine: 1-2 cups per day Comments No Sex and Gender Information Value Date Recorded Sex Assigned at Female 11/18/2022 1:46 PM EDT Legal Sex Female 8:33 PM EDT Gender Identity Female 11/18/2022 1:46 PM EDT Sexual Orientation Straight 11/18/2022 1: 46 PM EDT documented as of this encounter Progress Notes * MIAN Francis - 01/23/2025 10:00 AM EDT Reason for Appointment: Patient ID: Tri Pearl is a 39 y.o. female who presents for Well Women Visit Patient presents today for Annual Exam. MEDICATIONS Current Outpatient Medications Medication Instructions albuterol HFA 90 mcg/act inhaler 2 puffs, Every 6 hours PRN albuterol 2.5 mg, Every 6 hours PRN ascorbic acid (Vitamin C) 100 MG chewable tablet Vitamin C atomoxetine (STRATTERA) 10 mg, Daily atomoxetine (STRATTERA) 25 mg, Daily Auvelity 45-105 MG tablet controlled-release 1 tablet, 2 times daily busPIRone (BUSPAR) 15 mg, 3 times daily cholecalciferol (Vitamin D-3) 50 MCG (1999) capsule Vitamin D dicyclomine (BENTYL) 20 mg, As needed Emgality 120 mg, Subcutaneous, Every 30 days famotidine (Pepcid) 40 MG tablet TAKE 1 TABLET BY MOUTH IN THE MORNING AND AT BEDTIME fluocinonide (Lidex) 0.05 % external solution APPLY TOPICALLY TO THE SCALP DAILY NEEDED FOR FLARES fluticasone (Flonase) 50 MCG/ACT nasal spray SHAKE LIQUID AND USE 2 SPRAYS IN EACH NOSTRIL EVERY DAY fluticasone (Flovent HFA) 110 MCG/ACT inhaler 1 puff, 2 times daily hydrOXYzine pamoate (Vistaril) 25 MG capsule TAKE 1 CAPSULE BY MOUTH EVERY 6 HOURS NEEDED FOR ANXIETY Mounjaro 5 MG/0.5ML solution auto-injector Multiple Vitamin (Multivitamin Adult) tablet Every 24 hours Nystop 575013 UNIT/GM powder APPLY TO AFFECTED AREA UNDER THE BREASTS EVERY MORNING NEEDED omeprazole (PRILOSEC) 40 mg, 2 times daily before meals ondansetron ODT (Zofran-ODT) 4 MG disintegrating tablet DISSOLVE 1 TABLET ON THE TONGUE EVERY 8 HOURS NEEDED FOR NAUSEA OR VOMITING pregabalin (LYRICA) 25 mg, Oral, 2 times daily Rexulti 3 mg, Daily traZODone (DESYREL) 150 mg, Nightly Ubrogepant (Ubrelvy) 100 MG tablet Take 1 tablet by mouth as needed at the onset of migraine. May repeat dose (1 tablet) once after 2 hours if migraine persists. Take no more than 2 doses in 24 hours. verapamil SR (CALAN SR) 180 mg, Oral, Daily, Do not crush or chew. ALLERGIES Allergies Allergen Reactions Codeine Other Other Reaction(s): Childhood Egg-Derived Products GI intolerance Erythromycin Unknown Fish-Derived Products Hives Lurasidone Other Other Reaction(s): Agitation, Intolerance Morphine Other Reaction(s): rash, SOB Penicillamine Unknown Penicillins Unknown Other Reaction(s): Childhood Phenazopyridine Other Other Reaction(s): Pain Semaglutide GI intolerance Sumatriptan Other and Unknown Other Reaction(s): Breathing, Chest tightness, unknown Latex Other and Rash Other Reaction(s): Hives PROBLEMS Active Ambulatory Problems Diagnosis Date Noted Hemicrania continua 08/29/2023 Migraine without aura and without status migrainosus, not intractable 08/29/2023 PCOS (polycystic ovarian syndrome) 08/29/2023 Fibromyalgia 08/29/2023 IIH (idiopathic intracranial hypertension) 08/29/2023 Intracranial TELEGRAPH OFFICE ROUTE AIDE disorder 08/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 Obesity, unspecified obesity severity, unspecified obesity type 08/29/2023 Abscess of chest wall 12/01/2023 Resolved Ambulatory Problems Diagnosis Date Noted No Resolved Ambulatory Problems Past Medical History: Diagnosis Date ADHD (attention deficit hyperactivity disorder) 2020 Allergies Amenorrhea Anemia Anxiety Asthma ([facility]) Bipolar disorder ([facility]) Bradycardia Chlamydia Chronic pain Common migraine COPD (chronic obstructive pulmonary disease) ([facility]) Crohn's disease ([facility]) Depression Diabetes ([facility]) Easy bruising Factor V Leiden mutation ([facility]) Fatigue Fibromyalgia, primary 2009 GERD (gastroesophageal reflux disease) Headache History of degenerative disc disease History of miscarriage Hyperlipemia Hypersomnia Joint pain Low back pain Lumbar back pain with radiculopathy affecting right lower extremity Lung nodule Migraine Morbid obesity with BMI of 40.0-44.9, adult ([facility]) Muscle spasm Myalgia Nonsmoker Polycystic ovarian disease Polycystic ovaries Positive urine drug screen Sleep apnea 2020 Snoring Spinal stenosis Trichomoniasis HISTORY PAST MEDICAL HISTORY SOCIAL HISTORY Past Medical History: Diagnosis Date ADHD (attention deficit hyperactivity disorder) 2020 Allergies Amenorrhea Anemia Anxiety Asthma ([facility]) Bipolar disorder ([facility]) Bradycardia Chlamydia Chronic pain Common migraine COPD (chronic obstructive pulmonary disease) ([facility]) Crohn's disease ([facility]) Depression Diabetes ([facility]) Easy bruising Factor V Leiden mutation ([facility]) Fatigue Fibromyalgia Fibromyalgia, primary 2010 GERD (gastroesophageal reflux disease) Headache History of degenerative disc disease History of miscarriage 13 total Hyperlipemia Hypersomnia Joint pain Low back pain Lumbar back pain with radiculopathy affecting right lower extremity Lung nodule Migraine Morbid obesity with BMI of 40.0-44.9, adult ([facility]) Muscle spasm Myalgia Nonsmoker PCOS (polycystic ovarian syndrome) Polycystic ovarian disease Polycystic ovaries Positive urine drug screen Sleep apnea 2020 Snoring Spinal stenosis Trichomoniasis Social History Tobacco Use Smoking status: Never Smokeless tobacco: Never Substance Use Topics Alcohol use: Not Currently Comment: caffeine: 1-2 cups per day Drug use: Not Currently FAMILY HISTORY Family History Problem Relation Name Age of Onset Bipolar disorder Mother Rosetta Hepatitis Mother Rosetta Kidney disease Mother Rosetta Heart disease Mother Rosetta Cancer Mother Rosetta Depression Mother Rosetta Fibromyalgia Mother Rosetta Bipolar disorder Sister Ynes Depression Sister Ynes Anxiety disorder Mother's Sister Rosetta Bilateral breast cancer Mother's Sister Rosetta Cervical cancer Maternal Grandmother Lung cancer Maternal Grandmother Kidney disease Maternal Grandmother SURGICAL HISTORY Past Surgical History: Procedure Laterality Date BACK SURGERY back decompression surgery lumbar COLONOSCOPY x2 2011, 2018 CYST REMOVAL 12/2023 sternal EGD 05/2016 and colonoscopy EGD 07/2014 and colonoscopy LAPAROSCOPY DIAGNOSTIC / BIOPSY / ASPIRATION / LYSIS x3 TONSILLECTOMY REVIEW OF SYSTEMS Review of Systems: Review of Systems Constitutional: Negative. HENT: Negative. Eyes: Negative. Respiratory: Negative. Cardiovascular: Negative. Gastrointestinal: Negative. Genitourinary: Negative. Musculoskeletal: Negative. Skin: Negative. Neurological: Negative. All other systems reviewed and are negative. Hematological: Negative. Endocrine: Negative. Allergic/Immunologic: Negative. OBJECTIVE Objective: Physical Exam Constitutional: Appearance: Normal appearance. She is well-developed. Genitourinary: Vulva normal. Right Adnexa: not tender and no mass present. Left Adnexa: not tender and no mass present. No cervical discharge. Breasts: Breasts are soft. Right: Normal. Left: Normal. HENT: Head: Normocephalic. Nose: Nose normal. Mouth/Throat: Mouth: Mucous membranes are moist. Cardiovascular: Rate and Rhythm: Normal rate and regular rhythm. Pulmonary: Effort: Pulmonary effort is normal. Breath sounds: Normal breath sounds. Abdominal: General: Bowel sounds are normal. There is no distension. Palpations: Abdomen is soft. Tenderness: There is no abdominal tenderness. There is no guarding or rebound. Musculoskeletal: General: No swelling. Normal range of motion. Cervical back: Normal range of motion. Right lower leg: No edema. Left lower leg: No edema. Neurological: General: No focal deficit present. Mental Status: She is alert and oriented to person, place, and time. Skin: General: Skin is warm and dry. Psychiatric: Mood and Affect: Mood normal. Behavior: Behavior normal. Vitals and nursing note reviewed. Exam conducted with a stringed instrument repairer present. Vitals: Estimated body mass index is 43.56 kg/m?? as calculated from the following: Height as of 08/27/24: 5' 9 . Weight as of 08/27/24: 295 lb. BP: No LMP recorded. ASSESSMENT & PLAN ICD-10-CM 1. Well woman exam with routine gynecological exam Z01.419 2. UTI symptoms R39.9 Annual Exam: Patient presents today for an annual exam. Patient states she is doing well and has no complaints. Pap was obtained without difficulty. No orders of the defined types were placed in this encounter. Follow Up: Patient is to return in one year for annual unless needed otherwise. Documented by Ana Arnold MA on behalf of: MIAN Francis documented in this encounter Plan of Treatment Not on file documented as of this encounter Procedures Procedure Name Priority Date/Time Associated Diagnosis Comments PAP SMEAR Routine 01/23/2024 12:00 AM EDT documented in this encounter Results * Pap Smear (01/23/2024 12:00 AM EDT) Swab Cervical swab / Unknown us Nery [facility] CYTOLOGY ORDERABLES Final Re sult EXTERNAL LAB documented in this encounter Visit Diagnoses Diagnosis Well woman exam with routine gynecological exam Routine gynecological examination UTI symptoms documented in this encounter Care Teams Bad Work Gatherer Relationship Specialty Start Date End Date Mustapha Barnes DO Referring Physician Neurology 06/18/24 Irasema Zacarias NP [address] [place] [address] [place] [address] Referring Physician Family Medicine 06/18/24 documented as of this encounter
--- OUTSIDE RECORDS SUMMARY | 2025-01-23 12:03 | XMS_ITS | Encounter Summary ---
Author Organization [facility] Address [address] [place] [address] Care Team Providers Care Guideman Name Role Phone Daron Ratliff MD Primary Care Provider [phone] MastJg DO Primary Care Provider [phone] Pcp, No Primary Care Provider UnavailKeila Masterson PA-C Primary Care Provider David Eubanks DO Unavailable [phone] Source Comments In the event this information is protected by the Federal Confidentiality of Alcohol and Drug AbusePatient Records regulations: The Federal rules restrict any use of the information to criminally investigate or prosecute any alcohol or drug abuse patient.[facility] Encounter Details Date Type Department Care Team ([facility] st Contact Info) Description 02/17/2008 Patient Msg Medical Records [address] [place] [address] Provider, [facility] Social History Tobacco Use Types Packs/Day Years Used Date Smoking Tobacco: Former Comments:quit 1 yr ago Alcohol Use Standard Drinks/Week Comments Yes 0 (1 standard drink = 0.6 oz pur e alcohol) rarely Comments No Sex and Gender Information Value Date Recorded Sex Assigned at Female 06/05/2019 4:00 PM EST Legal Sex Female 8:01 AM EST Gender Identity Female 06/05/2019 4:00 PM EST Sexual Orientation Straight 06/05/2019 4: 00 PM EST documented as of this encounter Plan of Treatment Not on file documented as of this encounter Visit Diagnoses Not on filedocumented in this encounter Care Teams Guideman Relationship Specialty Start Date End Date Daron Ratliff MD PCP - General 12/23/09 04/11/16 Jg Garvin DO [address] [place] [address] PCP - General 07/08/08 12/22/09 Pcp, No [address] [place] [address] PCP - General 04/17/08 07/07/08 Keila Cadet PA-C [address] [facility] [place] [address] PCP - General Family Medicine 04/12/16 David Eubanks DO [address] [facility] [place] [address] Referring Neurology 02/11/20 documented as of this encounter
--- OUTSIDE RECORDS SUMMARY | 2025-01-23 12:03 | XMS_ITS | Encounter Summary ---
Author Organization [facility] Address [address] [place] [address] Care Team Providers Care Meter Tester Polyphase Name Role Phone Daron Ratliff MD Primary Care Provider [phone] Jg Garvin DO Primary Care Provider [phone] Keila Cadet PA-C Primary Care Provider David Eubanks DO Unavailable [phone] Source Comments In the event this information is protected by the Federal Confidentiality of Alcohol and Drug AbusePatient Records regulations: The Federal rules restrict any use of the information to criminally investigate or prosecute any alcohol or drug abuse patient.[facility] Encounter Details Date Type Department Care Team (Late st Contact Info) Description 08/17/2008 Patient Msg Medical Records [address] [place] [address] Provider, [facility] Social History Tobacco Use Types Packs/Day Years Used Date Smoking Tobacco: Former Cigarettes 0.5 1 0 05/09/2005 - 05/09/2006 Comments:PATIENT SMOKED 4-5 CIGARETTES DAILY BEFORE QUITTING Alcohol Use Standard Drinks/Week Comments No 0 (1 standard drink = 0.6 oz pur e alcohol) Comments No Sex and Gender Information Value [...] on filedocumented in this encounter Care Teams Meter Tester Polyphase Relationship Specialty Start Date End Date Daron Ratliff MD PCP - General 12/23/09 04/11/16 Jg Garvin DO [address] [place] [address] PCP - General 07/08/08 12/22/09 Keila Cadet PA-C [address] [place] [address] PCP - General Family Medicine 04/12/16 David Eubanks DO [address] [place] [address] Referring Neurology 02/11/20 documented as of this encounter
--- OUTSIDE RECORDS SUMMARY | 2025-01-23 12:03 | XMS_ITS | Encounter Summary ---
Author Organization [facility] Address [address] [place] [address] Care Team Providers Care Clipping Marker Name Role Phone Daron Ratliff MD Primary Care Provider [phone] MastJg DO Primary Care Provider [phone] Pcp, No Primary Care Provider UnavailKeila Masterson PA-C Primary Care Provider David Eubanks DO Unavailable Source Comments In the event this information is protected by the Federal Confidentiality of Alcohol and Drug AbusePatient Records regulations: The Federal rules restrict any use of the information to criminally investigate or prosecute any alcohol or drug abuse patient.[facility] Encounter Details Date Type Department Care Team ([facility] st Contact Info) Description 07/02/2008 Patient Msg Medical Records [address] [place] [address] Provider, [facility] Social History Tobacco Use Types Packs/Day Years Used Date Smoking Tobacco: Former Comments:quit 1 yr ago Alcohol Use Standard Drinks/Week Comments No 0 [...] on filedocumented in this encounter Care Teams Clipping Marker Relationship Specialty Start Date End Date Daron Ratliff MD PCP - General 12/23/09 04/11/16 Jg Garvin DO [address] [place] [address] PCP - General 07/08/08 12/22/09 Pcp, Judi [address] [place] [address] PCP - General 04/17/08 07/07/08 Keila Cadet PA-C [address] [facility] [place] [address] PCP - General Family Medicine 04/12/16 aDvid Eubanks DO [address] [facility] [place] [address] Referring Neurology 02/11/20 documented as of this encounter
--- OUTSIDE RECORDS SUMMARY | 2025-01-23 12:03 | XMS_ITS | Encounter Summary ---
Author Organization [facility] Address [address] [place] [address] Care Team Providers Care Nozzle Worker Name Role Phone Unallocated, Noms Provider Primary Care Provi marco a Mustapha Barnes DO Unavailable [phone] Irasema Zacarias LEVEL VIAL SETTER Unavailable [phone] Encounter Details Date Type Department Care Team ([facility] Contact Info) Description 12/01/2023 Clinisync Result Encounter [facility] External Department Unsolicited Samanta Castellanos PA [address] [place], [place] [id number] Social History Tobacco Use Types Packs/Day Years [...] PM EDT documented as of this encounter Plan of Treatment Not on file documented as of this encounter Procedures Procedure Name Priority Date/Time Associated Diagnosis Comments US CHEST 12/01/2023 10:21 AM EDT documented in this encounter Results * US chest (12/01/2023 10:21 AM EDT) Anatomical Region Laterality Modality Chest Ultrasound 12/01/2023 10:2 1 AM EDT Narrative 12/01/2023 10:23 [place] [address] Ultrasound Report Signed Patient: TRI NORTON MR#: [id number] : 1985 Acct:[id number] Age/Sex: 38 / F ADM Date: 12/01/23 Loc: US Attending Dr: Samanta Castellanos Ordering Physician: Samanta Castellanos Date of Service: 12/01/23 Procedure(s): US chest Accession Number(s): [id number] cc: Samanta Castellanos; Physician,Non-Staff MStefano [place] [id number] Patient Name: TRI NORTON MRN: [id number] date: 1985 Sex: F Assigned Patient Location: US Current Patient Location: US Accession/Order Number: [id number] Exam Date: 12/01/2023 09:40 Report Date: 12/01/2023 10:21 At the request of: SAMANTA CASTELLANOS Procedure: US chest EXAM: US chest HISTORY: Swollen Breast, Breast Pain, Left Nipple Drainage COMPARISON: None. TECHNIQUE: Grayscale and color ultrasound FINDINGS: Identified in the region of the patient's pain and swelling is a 2.3 x 2.3 x 1.6 cm heterogeneous hypoechogenic cystic mass having a thick wall measuring up to 2.7 mm.. There is hypervascularity peripherally with no definite internal vascularity. This lesion is 4 mm below the skin surface within the subcutaneous fat superficial to muscle US/US chest IMPRESSION: 2.3 cm cystic mass with a hypervascular thick rim. Consider an abscess Electronically authenticated by: CHANTELL BEY Date: 12/01/2023 10:21 Dictated By: Chantell Bey M.D. Signed By: 12/01/23 1023 DD/ 1021 TD/TT: Bread Molder: Procedure Note Radiology, Radiologist, MD - 12/01/2023 [place] [address] Ultrasound Report Signed Patient: TRI NORTON LMR#: [id number] : 1985Acct:[id number] Age/Sex: 38 / FADM Date: 12/01/23 Loc: US Attending Dr: Samanta Castellanos Ordering Physician: Samanta Castellanos Date of Service: 12/01/23 Procedure(s): US chest Accession Number(s): [id number] cc: Samanta Castellanos; Physician,Non-Staff M.DLourdes [facility] [address], [place] [address] Patient Name: TRI NORTON MRN: [id number] date: 1985 Sex: F Assigned Patient Location: US Current Patient Location: US Accession/Order Number: [id number] Exam Date: 12/01/2023 09:40 Report Date: 12/01/2023 10:21 At the request of: SAMANTA CASTELLANOS Procedure: US chest EXAM: US chest HISTORY: Swollen Breast, Breast Pain, Left Nipple Drainage COMPARISON: None. TECHNIQUE: Grayscale and color ultrasound FINDINGS: Identified in the region of the patient's pain and swelling is a 2.3 x 2.3x 1.6 cm heterogeneous hypoechogenic cystic mass having a thick wallmeasuring up to 2.7 mm.. There is hypervascularity peripherally with no definiteinternal vascularity. This lesion is 4 mm below the skin surface within the subcutaneous fat superficial to muscle US/US chest IMPRESSION: 2.3 cm cystic mass with a hypervascular thick rim. Consider an abscess Electronically authenticated by: CHANTELL BEY Date: 12/01/2023 10:21 Dictated By: Chantell Bey M.D. Signed By:12/01/23 1023 DD/ 1021 TD/TT: Bread Molder: us Samanta PAPPAS IMG US PROCEDURES Final Result documented in this encounter Visit Diagnoses Not on filedocumented in this encounter Care Teams Nozzle Worker Relationship Specialty Start Date End Date Unallocated, Noms Provider, MD Micaela RODRÍGUEZ [place] [id number] PCP - General 11/15/22 06/17/24 Mustapha Barnes DO [address] [place] [address] Referring Physician Neurology 06/18/24 Irasema Zacarias NP [address] [place] [address] [address]; [address] [address] Referring Physician Family Medicine 06/18/24 documented as of this encounter
--- OUTSIDE RECORDS SUMMARY | 2025-01-23 12:03 | XMS_ITS | Encounter Summary ---
Author Organization [facility] Address [address] [place] [address] Care Team Providers Care Mosaic Tiler Name Role Phone Daron Ratliff MD Primary Care Provider [phone] Jg Garvin DO Primary Care Provider [phone] Keila Cadet PA-C Primary Care Provider David Eubanks DO Unavailable [phone] Source Comments In the event this information is protected by the Federal Confidentiality of Alcohol and Drug AbusePatient Records regulations: The Federal rules restrict any use of the information to criminally investigate or prosecute any alcohol or drug abuse patient.[facility] Encounter Details Date Type Department Care Team (Late st Contact Info) Description 05/14/2009 Patient Msg Medical Records [address] [place] [address] Provider, [facility] Social History [...] on filedocumented in this encounter Care Teams Mosaic Tiler Relationship Specialty Start Date End Date Daron Ratliff MD PCP - General 12/23/09 04/11/16 Jg Garvin DO [address] [place] [address] PCP - General 07/08/08 12/22/09 Keila Cadet PA-C [address] [place] [address] PCP - General Family Medicine 04/12/16 David Eubanks DO [address] [place] [address] Referring Neurology 02/11/20 documented as of this encounter
--- OUTSIDE RECORDS SUMMARY | 2025-01-23 12:03 | XMS_ITS | Encounter Summary ---
Author Organization [facility] Address [address] [place] [address] Care Team Providers Care Wind Turbine Design Engineer Name Role Phone Daron Ratliff MD Primary Care Provider [phone] MastJg DO Primary Care Provider [phone] Pcp, No Primary Care Provider UnavailKeila Masterson PA-C Primary Care Provider David Eubanks DO Unavailable [phone] Source Comments In the event this information is protected by the Federal Confidentiality of Alcohol and Drug AbusePatient Records regulations: The Federal rules restrict any use of the information to criminally investigate or prosecute any alcohol or drug abuse patient.[facility] Encounter Details Date Type Department Care Team ([facility] st Contact Info) Description 05/24/2008 Patient Msg Medical Records [address] [place] [address] Provider, [facility] Social History [...] on filedocumented in this encounter Care Teams Wind Turbine Design Engineer Relationship Specialty Start Date End Date Daron Ratliff MD PCP - General 12/23/09 04/11/16 Jg Garvin DO [address] [place] [address] PCP - General 07/08/08 12/22/09 Pcp, Judi [address] [place] [address] PCP - General 04/17/08 07/07/08 Keila Cadet PA-C [address] [facility] [place] [address] PCP - General Family Medicine 04/12/16 David Eubanks DO [address] [facility] [place] [address] Referring Neurology 02/11/20 documented as of this encounter
--- OUTSIDE RECORDS SUMMARY | 2025-01-23 12:03 | XMS_ITS | Encounter Summary ---
Author Organization [facility] Address [address] [place] [address] Care Team Providers Care Potato Chip Fryer Name Role Phone Mustapha Barnes DO Unavailable [phone] Irasema Zacarias JIGGER MACHINE OPERATOR Unavailable [phone] Encounter Details Date Type Department Care Team (Late Contact Info) Description 01/23/2025 Bamboo flowsheet [facility] DIAZ [address] [address] [place] [id number] Nery Carver PA [address] [place], [facility] Social History Tobacco Use Types Packs/Day Years [...] on filedocumented in this encounter Care Teams Potato Chip Fryer Relationship Specialty Start Date End Date Mustapha Barnes DO Referring Physician Neurology 06/18/24 Irasema Zacarias NP [address] [place] [address] [address]; [place] [address] Referring Physician Family Medicine 06/18/24 documented as of this encounter
--- OUTSIDE RECORDS SUMMARY | 2025-01-23 12:03 | XMS_ITS | Encounter Summary ---
Author Organization [facility] Address [address] [place] [address] Care Team Providers Care Quality And Reliability Engineer Name Role Phone Daron Ratliff MD Primary Care Provider [phone] MastJg DO Primary Care Provider [phone] Pcp, No Primary Care Provider UnavailKeila Masterson PA-C Primary Care Provider David Eubanks DO Unavailable [phone] Source Comments In the event this information is protected by the Federal Confidentiality of Alcohol and Drug AbusePatient Records regulations: The Federal rules restrict any use of the information to criminally investigate or prosecute any alcohol or drug abuse patient.[facility] Encounter Details Date Type Department Care Team ([facility] st Contact Info) Description 05/24/2008 Patient Msg Medical Records [address] [place] [address] Provider, [facility] Health Information Exchange Social History [...] on filedocumented in this encounter Care Teams Quality And Reliability Engineer Relationship Specialty Start Date End Date Daron Ratliff MD PCP - General 12/23/09 04/11/16 Jg Garvin DO [address] [place] [address] PCP - General 07/08/08 12/22/09 Pcp, Judi [address] [place] [address] PCP - General 04/17/08 07/07/08 Keila Cadet PA-C [address] [facility] [place] [address] PCP - General Family Medicine 04/12/16 David Eubanks DO [address] [facility] [place] [address] Referring Neurology 02/11/20 documented as of this encounter
--- OUTSIDE RECORDS SUMMARY | 2025-01-23 12:03 | XMS_ITS | Encounter Summary ---
Author Organization [facility] Address [address] [place] [address] Care Team Providers Care Bsa/Aml Compliance Officer Name Role Phone Daron Ratliff MD Primary Care Provider [phone] MastJg DO Primary Care Provider [phone] Pcp, No Primary Care Provider UnavailKeila Masterson PA-C Primary Care Provider David Eubanks DO Unavailable [phone] Source Comments In the event this information is protected by the Federal Confidentiality of Alcohol and Drug AbusePatient Records regulations: The Federal rules restrict any use of the information to criminally investigate or prosecute any alcohol or drug abuse patient.[facility] Encounter Details Date Type Department Care Team ([facility] st Contact Info) Description 05/25/2008 Patient Msg Medical Records [address] [place] [address] Provider, [facility] Health Information Exchange Social History [...] on filedocumented in this encounter Care Teams Bsa/Aml Compliance Officer Relationship Specialty Start Date End Date Daron Ratliff MD PCP - General 12/23/09 04/11/16 Jg Garvin DO [address] [place] [address] PCP - General 07/08/08 12/22/09 Pcp, Judi [address] [place] [address] PCP - General 04/17/08 07/07/08 Keila Cadet PA-C [address] [place] [place] [address] PCP - General Family Medicine 04/12/16 David Eubanks DO [address] [place] [place] [address] Referring Neurology 02/11/20 documented as of this encounter
--- OUTSIDE RECORDS SUMMARY | 2025-01-23 12:03 | XMS_ITS | Encounter Summary ---
Author Organization [facility] Address [address] [place] [address] Care Team Providers Care Truck Headlight Assembler Name Role Phone Daron Ratliff MD Primary Care Provider [phone] MastJg DO Primary Care Provider [phone] Pcp, No Primary Care Provider UnavailKeila Masterson PA-C Primary Care Provider David Eubanks DO Unavailable [phone] Source Comments In the event this information is protected by the Federal Confidentiality of Alcohol and Drug AbusePatient Records regulations: The Federal rules restrict any use of the information to criminally investigate or prosecute any alcohol or drug abuse patient.[facility] Encounter Details Date Type Department Care Team ([facility] st Contact Info) Description 04/17/2008 Patient Msg Medical Records [address] [place] [address] Provider, [facility] RE: Request an Appointment Social History Tobacco Use Types Packs/Day Years [...] on filedocumented in this encounter Care Teams Truck Headlight Assembler Relationship Specialty Start Date End Date Daron Ratliff MD PCP - General 12/23/09 04/11/16 Jg Garvin DO [address] [place] [address] PCP - General 07/08/08 12/22/09 Pcp, No [address] [place] [address] PCP - General 04/17/08 07/07/08 Keila Cadet PA-C [address] [facility] [place] [address] PCP - General Family Medicine 04/12/16 David Eubanks DO [address] [facility] [place] [address] Referring Neurology 02/11/20 documented as of this encounter
--- OUTSIDE RECORDS SUMMARY | 2025-01-23 12:03 | XMS_ITS | Encounter Summary ---
Author Organization [facility] Address [address] [place] [address] Care Team Providers Care Dope Weigh Operator Name Role Phone Daron Ratliff MD Primary Care Provider [phone] Jg Garvin DO Primary Care Provider [phone] Keila Cadet PA-C Primary Care Provider David Eubanks DO Unavailable [phone] Source Comments In the event this information is protected by the Federal Confidentiality of Alcohol and Drug AbusePatient Records regulations: The Federal rules restrict any use of the information to criminally investigate or prosecute any alcohol or drug abuse patient.[facility] Encounter Details Date Type Department Care Team (Late st Contact Info) Description 08/08/2008 Patient Msg Medical Records [address] [place] [address] Provider, [facility] Health Information Exchange Social History [...] on filedocumented in this encounter Care Teams Dope Weigh Operator Relationship Specialty Start Date End Date Daron Ratliff MD PCP - General 12/23/09 04/11/16 Jg Garvin DO [address] [place] [address] PCP - General 07/08/08 12/22/09 Keila Cadet PA-C [address] [place] [address] PCP - General Family Medicine 04/12/16 David Eubanks DO [address] [place] [address] Referring Neurology 02/11/20 documented as of this encounter
--- OUTSIDE RECORDS SUMMARY | 2025-01-23 12:03 | XMS_ITS | Encounter Summary ---
Author Organization [facility] Address [address] [place] [address] Care Team Providers Care Food Service Specialist Name Role Phone Daron Ratliff MD Primary Care Provider Jg Garvin DO Primary Care Provider [phone] Keila Cadet PA-C Primary Care Provider David Eubanks DO Unavailable [phone] Source Comments In the event this information is protected by the Federal Confidentiality of Alcohol and Drug AbusePatient Records regulations: The Federal rules restrict any use of the information to criminally investigate or prosecute any alcohol or drug abuse patient.[facility] Encounter Details Date Type Department Care Team (Late st Contact Info) Description 07/23/2009 Patient Msg Medical Records [address] [place] [address] Provider, [facility] Social History Tobacco Use Types Packs/Day Years [...] on filedocumented in this encounter Care Teams Food Service Specialist Relationship Specialty Start Date End Date Daron Ratliff MD PCP - General 12/23/09 04/11/16 Jg Garvin DO [address] [place] [address] PCP - General 07/08/08 12/22/09 Keila Cadet PA-C [address] [place] [address] PCP - General Family Medicine 04/12/16 David Eubanks DO [address] [place] [address] Referring Neurology 02/11/20 documented as of this encounter
--- OUTSIDE RECORDS SUMMARY | 2025-01-23 12:03 | XMS_ITS | Encounter Summary ---
Author Organization [facility] Address [address] [place] [address] Care Team Providers Care Parts Coordinator Name Role Phone Daron Ratliff MD Primary Care Provider [phone] MastJg E DO Primary Care Provider [phone] Pcp, No Primary Care Provider Unavailabl e Pcp, No Primary Care Provider Unavailabl e Keila Cadet PA-C Primary Care Provider David Eubanks DO Unavailable [phone] Source Comments In the event this information is protected by the Federal Confidentiality of Alcohol and Drug AbusePatient Records regulations: The Federal rules restrict any use of the information to criminally investigate or prosecute any alcohol or drug abuse patient.[facility] Encounter Details Date Type Department Care Team (Late st Contact Info) Description 09/28/2007 Patient Msg Medical Records [address] [place] [address] Provider, [facility]cf RE: Appointment Request form Social History Tobacco Use Types Packs/Day Years [...] on filedocumented in this encounter Care Teams Parts Coordinator Relationship Specialty Start Date End Date Daron Ratliff MD PCP - General 12/23/09 04/11/16 Jg Garvin DO [address] [facility] [place] [address] PCP - General 07/08/08 12/22/09 Pcp, No [address] [facility] [place] [address] PCP - General 04/17/08 07/07/08 Pcp, No [address] [facility] [place] [address] PCP - General 06/13/06 01/07/08 Keila Cadet PA-C [address] [facility] [place] [address] PCP - General Family Medicine 04/12/16 David Eubanks DO [address] [facility] [place] [address] Referring Neurology 02/11/20 documented as of this encounter
--- OUTSIDE RECORDS SUMMARY | 2025-01-23 12:03 | XMS_ITS | Encounter Summary ---
Author Organization [facility] Address [address] [place] [address] Care Team Providers Care High School Band Teacher Name Role Phone Daron Ratliff MD Primary Care Provider [phone] Jg Garvin DO Primary Care Provider [phone] Keila Cadet PA-C Primary Care Provider David Eubanks DO Unavailable [phone] Source Comments In the event this information is protected by the Federal Confidentiality of Alcohol and Drug AbusePatient Records regulations: The Federal rules restrict any use of the information to criminally investigate or prosecute any alcohol or drug abuse patient.[facility] Encounter Details Date Type Department Care Team (Late st Contact Info) Description 05/13/2009 Patient Msg Medical Records [address] [place] [id number] Provider, Ccf Results Social History Tobacco Use Types Packs/Day Years [...] on filedocumented in this encounter Care Teams High School Band Teacher Relationship Specialty Start Date End Date Daron Ratliff MD PCP - General 12/23/09 04/11/16 Jg Garvin DO [address] [place] [address] PCP - General 07/08/08 12/22/09 Keila Cadet PA-C [address] [place] [address] PCP - General Family Medicine 04/12/16 David Eubanks DO [address] [facility] [place] [address] Referring Neurology 02/11/20 documented as of this encounter
--- OUTSIDE RECORDS SUMMARY | 2025-01-23 12:03 | XMS_ITS | Encounter Summary ---
Author Organization [facility] Address [address] [place] [address] Care Team Providers Care Press Operator Heavy Duty Name Role Phone Daron Ratliff MD Primary Care Provider [phone] Jg Garvin DO Primary Care Provider [phone] Keila Cadet PA-C Primary Care Provider David Eubanks DO Unavailable [phone] Source Comments In the event this information is protected by the Federal Confidentiality of Alcohol and Drug AbusePatient Records regulations: The Federal rules restrict any use of the information to criminally investigate or prosecute any alcohol or drug abuse patient.[facility] Encounter Details Date Type Department Care Team (Late st Contact Info) Description 08/07/2008 Patient Msg Medical Records [address] [place] [address] Provider, [facility] Health Information Exchange Social History [...] on filedocumented in this encounter Care Teams Press Operator Heavy Duty Relationship Specialty Start Date End Date Daron Ratliff MD PCP - General 12/23/09 04/11/16 Jg Garvin DO [address] [place] [address] PCP - General 07/08/08 12/22/09 Keila Cadet PA-C [address] [place] [address] PCP - General Family Medicine 04/12/16 David Eubanks DO [address] [place] [address] Referring Neurology 02/11/20 documented as of this encounter
--- OUTSIDE RECORDS SUMMARY | 2025-01-23 12:03 | XMS_ITS | Encounter Summary ---
Author Organization [facility] Address [address] [place] [address] Care Team Providers Care Supervisor Glycerin Name Role Phone Daron Ratliff MD Primary Care Provider [phone] Jg Garvin DO Primary Care Provider [phone] Keila Cadet PA-C Primary Care Provider David Eubanks DO Unavailable [phone] Source Comments In the event this information is protected by the Federal Confidentiality of Alcohol and Drug AbusePatient Records regulations: The Federal rules restrict any use of the information to criminally investigate or prosecute any alcohol or drug abuse patient.[facility] Encounter Details Date Type Department Care Team (Late st Contact Info) Description 05/17/2009 Patient Msg Medical Records [address] [place] [address] Provider, [facility] Health Information Exchange Social History [...] on filedocumented in this encounter Care Teams Supervisor Glycerin Relationship Specialty Start Date End Date Daron Ratliff MD PCP - General 12/23/09 04/11/16 gJ Garvin DO [address] [place] [address] PCP - General 07/08/08 12/22/09 Keila Cadet PA-C [address] [place] [address] PCP - General Family Medicine 04/12/16 David Eubanks DO [address] [place] [address] Referring Neurology 02/11/20 documented as of this encounter
--- OUTSIDE RECORDS SUMMARY | 2025-01-23 12:03 | XMS_ITS | Encounter Summary ---
Author Organization [facility] Address [address] [place] [address] Care Team Providers Care Combatant Swimmer Name Role Phone Unallocated, Noms Provider Primary Care Provi marco a Mustapha Barnes DO Unavailable [phone] Irasema Zacarias DIRECTOR OF MEDICARE Unavailable [phone] Reason for Visit * Reason Comments Med Refill Encounter Details Date Type Department Care Team (Late st Contact Info) Description 12/25/2023 Refill BAYLEE KEANU [address] [place] [phone] Jasmin Zavaleta NP Other chronic pain Social History Tobacco Use Types Packs/Day Years [...] PM EDT documented as of this encounter Miscellaneous Notes * Telephone Encounter - Jasmin Zavaleta NP - 12/26/2023 8:38 AM EDT Too soon for refill. This was filled on 12/14/2023 per [facility] review. documented in this encounter Plan of Treatment Not on file documented as of this encounter Visit Diagnoses Diagnosis Other chronic pain documented in this encounter Care Teams Combatant Swimmer Relationship Specialty Start Date End Date Unallocated, Noms Provider, [address] [place] [address] PCP - General 11/15/22 06/17/24 Mustapha Barnes DO [address] [place] [address] Referring Physician Neurology 06/18/24 Irasema Zacarias NP [address] [place] [address] [address] Referring Physician Family Medicine 06/18/24 documented as of this encounter
--- OUTSIDE RECORDS SUMMARY | 2025-01-23 12:03 | XMS_ITS | Encounter Summary ---
Author Organization [facility] Address [address] [place] [address] Care Team Providers Care Senior Brand Manager Name Role Phone Daron Ratliff MD Primary Care Provider [phone] Jg Garvin DO Primary Care Provider [phone] Keila Cadet PA-C Primary Care Provider David Eubanks DO Unavailable [phone] Source Comments In the event this information is protected by the Federal Confidentiality of Alcohol and Drug AbusePatient Records regulations: The Federal rules restrict any use of the information to criminally investigate or prosecute any alcohol or drug abuse patient.[facility] Encounter Details Date Type Department Care Team (Late st Contact Info) Description 05/01/2009 Patient Msg Medical Records [address] [place] [address] Provider, [facility] Health Information Exchange Social History [...] on filedocumented in this encounter Care Teams Senior Brand Manager Relationship Specialty Start Date End Date Daron Ratliff MD PCP - General 12/23/09 04/11/16 Jg Garvin DO [address] [place] [address] PCP - General 07/08/08 12/22/09 Keila Cadet PA-C [address] [place] [address] PCP - General Family Medicine 04/12/16 David Eubanks DO [address] [place] [address] Referring Neurology 02/11/20 documented as of this encounter
--- OUTSIDE RECORDS SUMMARY | 2025-01-23 12:03 | XMS_ITS | Encounter Summary ---
Author Organization [facility] Address [address] [place] [address] Care Team Providers Care Adult Secondary Education Instructor Name Role Phone Daron Ratliff MD Primary Care Provider [phone] Jg Garvin DO Primary Care Provider [phone] Keila Cadet PA-C Primary Care Provider David Eubanks DO Unavailable Source Comments In the event this information is protected by the Federal Confidentiality of Alcohol and Drug AbusePatient Records regulations: The Federal rules restrict any use of the information to criminally investigate or prosecute any alcohol or drug abuse patient.[facility] Encounter Details Date Type Department Care Team (Late st Contact Info) Description 07/25/2009 Patient Msg Medical Records [address] [place] [address] Provider, [facility] Health Information Exchange Social History [...] on filedocumented in this encounter Care Teams Adult Secondary Education Instructor Relationship Specialty Start Date End Date Daron Ratliff MD PCP - General 12/23/09 04/11/16 Jg Garvin DO [address] [place] [address] PCP - General 07/08/08 12/22/09 Keila Cadet PA-C [address] [place] [address] PCP - General Family Medicine 04/12/16 David Eubanks DO [address] [place] [address] Referring Neurology 02/11/20 documented as of this encounter
--- OUTSIDE RECORDS SUMMARY | 2025-01-23 12:03 | XMS_ITS | Encounter Summary ---
Author Organization [facility] Address [address] [place] [address] Care Team Providers Care Nursing Home Manager Name Role Phone Daron Ratliff MD Primary Care Provider [phone] Jg Garvin DO Primary Care Provider [phone] Keila Cadet PA-C Primary Care Provider David Eubanks DO Unavailable [phone] Source Comments In the event this information is protected by the Federal Confidentiality of Alcohol and Drug AbusePatient Records regulations: The Federal rules restrict any use of the information to criminally investigate or prosecute any alcohol or drug abuse patient.[facility] Encounter Details Date Type Department Care Team (Late st Contact Info) Description 07/23/2009 Patient Msg Medical Records [address] [place] [address] Provider, [facility] Health Information Exchange Social History [...] on filedocumented in this encounter Care Teams Nursing Home Manager Relationship Specialty Start Date End Date Daron Ratliff MD PCP - General 12/23/09 04/11/16 Jg Garvin DO [address] [place] [address] PCP - General 07/08/08 12/22/09 Keila Cadet PA-C [address] [place] [address] PCP - General Family Medicine 04/12/16 David Eubanks DO [address] [place] [address] Referring Neurology 02/11/20 documented as of this encounter
--- OUTSIDE RECORDS SUMMARY | 2025-01-23 12:03 | XMS_ITS | Clinical Summary ---
Author Organization [facility] Address [address] [place] [address] Care Team Providers Care Magazine Editor Name Role Phone Mustapha Barnes DO Unavailable [phone] SCIENTIST Unavailable [phone] Allergies Active Allergy Reactions Criticality Noted Date Comments Codeine Other 11/15/2022 Other Reaction(s): Childhood Egg-Derived Products GI intolerance 11/15/2022 Erythromycin Unknown 03/31/2022 Fish-Derived Products Hives 11/15/2022 Latex Other,Rash Low 11/15/2022 Other Reaction(s): Hives Lurasidone Other 11/15/2022 Other Reaction(s): Agitation, Intolerance Morphine 01/23/2025 Other Reaction(s): rash, SOB Penicillamine Unknown 03/09/2023 Penicillins Unknown 11/15/2022 Other Reaction(s): Childhood Phenazopyridine Other 11/15/2022 Other Reaction(s): Pain Semaglutide GI intolerance 03/31/2022 Sumatriptan Other,Unknown 11/15/2022 Other Reaction(s): Breathing, Chest tightness, unknown Medications Nystop 661220 UNIT/GM powder APPLY TO AFFECTED AREA UNDER THE BREASTS EVERY MORNING NEEDED 10/27/19 23 Active fluocinonide (Lidex) 0.05 % external solution APPLY TOPICALLY TO THE SCALP DAILY NEEDED FOR FLARES 02/10/20 22 Active albuterol (2.5 MG/3ML) 0.083% nebulizer solution Take 2.5 mg by nebulization every 6 (six) hours if needed for wheezing or shortness of breath Active fluticasone (Flovent HFA) 110 MCG/ACT inhaler Inhale 1 puff in the morning and 1 puff before bedtime. Active omeprazole (PriLOSEC) [address] capsule Take 40 mg by mouth in the morning and 40 mg in the evening. Take before meals. Active traZODone (Desyrel) 150 MG tablet Take 150 mg by mouth at bedtime Active Multiple Vitamin (Multivitamin Adult) tablet 1 (one) time each day at the same time. Active fluticasone (Flonase) 50 MCG/ACT nasal spray SHAKE LIQUID AND USE 2 SPRAYS IN EACH NOSTRIL EVERY DAY 02/19/20 22 Active albuterol HFA 90 mcg/act inhaler Inhale 2 puffs every 6 (six) hours if needed for wheezing. 09/29/19 23 Active cholecalciferol (Vitamin D-3) 50 MCG (2000 UT) capsule Vitamin D Active ascorbic acid (Vitamin C) 100 MG chewable tablet Vitamin C Acti ve busPIRone (Buspar) 15 MG tablet Take 15 mg by mouth in the morning and 15 mg in the evening and 15 mg before bedtime. Active Brexpiprazole (Rexulti) 3 MG tablet Take 3 mg by mouth Daily Active dicyclomine (Bentyl) 20 MG tablet Take 20 mg by mouth if needed. Active Auvelity 45-105 MG tablet controlled-release Take 1 tablet by mouth in the morning and 1 tablet before bedtime. 03/10/20 23 Active famotidine (Pepcid) 40 MG tablet TAKE 1 TABLET BY MOUTH IN THE MORNING AND AT BEDTIME 03/03/20 23 Active hydrOXYzine pamoate (Vistaril) 25 MG capsule TAKE 1 CAPSULE BY MOUTH EVERY 6 HOURS NEEDED FOR ANXIETY 02/09/20 23 Active ondansetron ODT (Zofran-ODT) 4 MG disintegrating tabletIndications: Migraine without aura and without status migrainosus, not intractable DISSOLVE 1 TABLET ON THE TONGUE EVERY 8 HOURS NEEDED FOR NAUSEA OR VOMITING 15 tablet 01/02/20 24 Active Mounjaro 5 MG/0.5ML solution auto-injector 03/22/20 24 Active atomoxetine (Strattera) 10 MG capsule Take 10 mg by mouth Daily Swallow capsule whole; do not open. If opened accidentally, do not touch eyes; wash hands immediately (product is an eye irritant). Active pregabalin (Lyrica) 25 MG capsuleIndications :Other chronic pain Take 1 capsule (25 mg) by mouth in the morning and 1 capsule (25 mg) before bedtime. 60 capsule 1 08/28/19 25 Active galcanezumab (Emgality) 120 MG/ML auto-injectorIndic ations:Migraine without aura and without status migrainosus, not intractable Inject 1 Syringe (120 mg) under the skin every 30 (thirty) days 1 mL 5 08/29/19 25 Active Ubrogepant (Ubrelvy) 100 MG tabletIndications: Migraine without aura and without status migrainosus, not intractable Take 1 tablet by mouth as needed at the onset of migraine. May repeat dose (1 tablet) once after 2 hours if migraine persists. Take no more than 2 doses in 24 hours. 8 tablet 5 08/29/19 25 Active verapamil SR (Calan SR) 180 MG ER tabletIndications: Migraine without aura and without status migrainosus, not intractable Take 1 tablet (180 mg) by mouth Daily Do not crush or chew. 30 tablet 3 08/29/19 25 Active atomoxetine (Strattera) 25 MG capsule Take 25 mg by mouth Daily 12/27/19 25 Active Tirzepatide 2.5 MG/0.5ML solution pen-injector Inject 0.5 mL as directed 1 (one) time per week 10/27/19 025 Discontin ued(Other ) naproxen (Naprosyn) 500 MG tablet Take 500 mg by mouth 2 (two) times a day as needed 11/30/19 24 025 Discontin ued(Other ) Mounjaro 7.5 MG/0.5ML solution pen-injector ADMINISTER 7.5 MG UNDER THE SKIN 1 TIME A WEEK 03/30/20 23 025 Discontin ued(Other ) azithromycin (Zithromax) 250 MG tablet TAKE 2 TABLETS BY MOUTH FOR 1 DAY THEN TAKE 1 TABLET BY MOUTH DAILY FOR 4 DAYS 06/11/19 25 025 Discontin ued(Other ) Active Problems Problem Noted Date Diagnosed Date Abscess of chest wall 12/01/2023 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 PLAN: - See above Migraine without aura and wi thout status migrainosus, not intractable 08/29/2023 Overview (12/16/2023): Chronic predominant right-sided headaches most consitent with migraines, accompnaying photo and phonophobia. Triggers include fluorescent lights and odors. Other considerations include hemicrania continua and severe refractory migraine. She received dramatic response in terms of benefit with indomethacin but had intolerable GI issues. Well controlled on Emgality and verapamil; only 2-3 migraines per month, though they do tend to be intense. Ubrelvy takes the edge off but does not fully abort. She presents today with an acute exacerbation not currently responding to Ubrelvy PLAN - Start migraine cocktail (depakote 500mg PO BID with Mag Ox 400mg daily x 5 days). Side effects discussed in detail and the patient would like to proceed, reportedly effective previously. She reportedly started magnesium today on her own. - Continue Emgality 120mg SC monthly injection (could be helping a TAC component as well as migraine) - Continue verapamil ER 120mg PO daily (could be helping a TAC component as well as migraine) - Continue ubrelvy 100mg as needed for breakthrough migraines. Ok to repeat dose x1 in 2 hours as needed - Could consider cambia 50mg mixed in 1-2 ounces of water as needed as a migraine abortive if Ubrelvy continues to not fully abort. - Tried but not tolerated or ineffective: Topiramate and sumatriptan (significant side effects with this), Fioricet, Ajovy - Recommended adequate hydration, sleep hygiene (compliance with CPAP), and regular exercise and weight loss PCOS (polycystic ovarian syndrome) 08/29/2023 Fibromyalgia 08/29/2023 Overview (12/16/2023): Widespread bodily pains not confined to joints or muscles. Strongest consideration is for fibromyalgia or maybe small fiber neuropathy. She was doing well on Lyrica but was concerned for weight gain though no change after stopping it. Restarting Lyrica has been very beneficial PLAN - Continue lyrica 25mg PO BID; side effects were discussed. OARRs reviewed. - Regular exercise was encouraged - Currently undergoing workup for bariatric surgery - I would avoid other medication with serotonergic effects given her current prescriptions in this class IIH (idiopathic intracranial hypertension) 08/28 Overview (12/16/2023): Idiopathic intracranial hypertension, mild, with an opening pressure of 25 cm CSF. She had been on minocycline. Did not tolerate acetazolamide or topiramate. Headaches currently do not present consistent with this. 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 Now following with Endocrinology. Encounters Date Type Department Care Team Description 01/23/2025 10:00 AM EDT [facility] [address] [address] Nery Carver PA Well woman exam with routine gynecological exam; UTI symptoms 01/23/2025 Bamboo flowsheet [facility] [address] [place] [address] Nery Carver PA from Last 3 Months Family History Medical History Relation Name Comments Cervical cancer Maternal Grandmother Kidney disease Maternal Grandmother Lung cancer Maternal Grandmother Bipolar disorder Mother Rosetta Cancer Mother Rosetta Depression Mother Rosetta Fibromyalgia Mother Rosetta Heart disease Mother Rosetta Hepatitis Mother Rosetta Kidney disease Mother Rosetta Anxiety disorder Mother's Sister Rosetta Bilateral breast cancer Mother's Sister Rosetta Bipolar disorder Sister Ynes Depression Sister Ynes Relation Name Status Comments Father Alive Maternal Grandmother Mother Rosetta Alive Mother's Sister Rosetta Sister Ynes Social History Tobacco Use Types Packs/Day Years [...] Orientation Straight 11/18/2022 1: 46 PM EDT Last Filed Vital Signs Vital Sign Reading Time Taken Comments Blood Pressure 124/82 08/27/2024 1:33 PM EDT Pulse 84 08/27/2024 1:33 PM EDT Temperature - - Respiratory Rate 16 08/27/2024 1:33 PM EDT Oxygen Saturation 97% 08/27/2024 1:33 PM EDT Inhaled Oxygen Concentration - - Weight 134 kg (295 lb) 08/27/2024 1:33 PM EDT Height 175.3 cm (5' 9 ) 08/27/2024 1:33 PM EDT Body Mass Index 43.56 08/27/2024 1:33 PM EDT Plan of Treatment Not on file Insurance MEDICAID [place] [employer] MEDICARE ADVANTAGE Care Teams Magazine Editor Relationship Specialty Start Date End Date Mustapha Barnes DO Referring Physician Neurology 06/18/24 Irasema Zacarias NP [address] [place] [address] [address]; [place] [address] Referring Physician Family Medicine 06/18/24
--- OUTSIDE RECORDS SUMMARY | 2025-01-23 12:03 | XMS_ITS | Encounter Summary ---
Author Organization [facility] Address [address] [place] [address] Care Team Providers Care Wagon Winder Name Role Phone Daron Ratliff MD Primary Care Provider [phone] MastJg DO Primary Care Provider [phone] Pcp, No Primary Care Provider UnavailKeila Masterson PA-C Primary Care Provider David Eubanks DO Unavailable [phone] Source Comments In the event this information is protected by the Federal Confidentiality of Alcohol and Drug AbusePatient Records regulations: The Federal rules restrict any use of the information to criminally investigate or prosecute any alcohol or drug abuse patient.[facility] Encounter Details Date Type Department Care Team ([facility] st Contact Info) Description 05/25/2008 Patient Msg Medical Records [address] [place] [address] Provider, [facility] Social History [...] on filedocumented in this encounter Care Teams Wagon Winder Relationship Specialty Start Date End Date Daron Ratliff MD PCP - General 12/23/09 04/11/16 Jg Garvin DO [address] [place] [address] PCP - General 07/08/08 12/22/09 Pcp, Judi [address] [place] [address] PCP - General 04/17/08 07/07/08 Keila Cadet PA-C [address] [facility] [place] [address] PCP - General Family Medicine 04/12/16 David Eubanks DO [address] [facility] [place] [address] Referring Neurology 02/11/20 documented as of this encounter
--- OUTSIDE RECORDS SUMMARY | 2025-01-23 12:03 | XMS_ITS | Encounter Summary ---
Author Organization [facility] Address [address] [place] [address] Care Team Providers Care Health Care Aide Name Role Phone Daron Ratliff MD Primary Care Provider [phone] Jg Garvin DO Primary Care Provider [phone] Keila Cadet PA-C Primary Care Provider David Eubanks DO Unavailable [phone] Source Comments In the event this information is protected by the Federal Confidentiality of Alcohol and Drug AbusePatient Records regulations: The Federal rules restrict any use of the information to criminally investigate or prosecute any alcohol or drug abuse patient.[facility] Encounter Details Date Type Department Care Team (Late st Contact Info) Description 07/10/2008 Patient Msg Medical Records [address] [place] [address] Provider, [facility] Social History Tobacco Use Types Packs/Day Years Used Date Smoking Tobacco: Former Cigarettes 0 05/09/2005 - 05/09/2006 Comments:PATIENT SMOKED 4-5 [...] on filedocumented in this encounter Care Teams Health Care Aide Relationship Specialty Start Date End Date Daron Ratliff MD PCP - General 12/23/09 04/11/16 Jg Garvin DO [address] [place] [address] PCP - General 07/08/08 12/22/09 Keila Cadet PA-C [address] [place] [address] PCP - General Family Medicine 04/12/16 David Eubanks DO [address] [place] [address] Referring Neurology 02/11/20 documented as of this encounter
--- OUTSIDE RECORDS SUMMARY | 2025-01-23 12:03 | XMS_ITS | Encounter Summary ---
Author Organization [facility] Address [address] [place] [address] Care Team Providers Care Molder Punch Name Role Phone Daron Ratliff MD Primary Care Provider [phone] Jg Garvin DO Primary Care Provider [phone] Keila Cadet PA-C Primary Care Provider David Eubanks DO Unavailable [phone] Source Comments In the event this information is protected by the Federal Confidentiality of Alcohol and Drug AbusePatient Records regulations: The Federal rules restrict any use of the information to criminally investigate or prosecute any alcohol or drug abuse patient.[facility] Encounter Details Date Type Department Care Team (Late st Contact Info) Description 07/30/2008 Patient Msg Medical Records [address] [place] [address] Provider, [facility] Social History [...] on filedocumented in this encounter Care Teams Molder Punch Relationship Specialty Start Date End Date Daron Ratliff MD PCP - General 12/23/09 04/11/16 Jg Garvin DO [address] [place] [address] PCP - General 07/08/08 12/22/09 Keila Cadet PA-C [address] [place] [address] PCP - General Family Medicine 04/12/16 David Eubanks DO [address] [place] [address] Referring Neurology 02/11/20 documented as of this encounter
--- OUTSIDE RECORDS SUMMARY | 2025-01-23 12:03 | XMS_ITS | Encounter Summary ---
Author Organization [facility] Address [address] [place] [address] Care Team Providers Care Manufacturing Test Engineer Name Role Phone Daron Ratliff MD Primary Care Provider [phone] Jg Garvin DO Primary Care Provider [phone] Keila Cadet PA-C Primary Care Provider David Eubanks DO Unavailable [phone] Source Comments In the event this information is protected by the Federal Confidentiality of Alcohol and Drug AbusePatient Records regulations: The Federal rules restrict any use of the information to criminally investigate or prosecute any alcohol or drug abuse patient.[facility] Encounter Details Date Type Department Care Team (Late st Contact Info) Description 04/11/2009 Patient Msg Medical Records [address] [place] [address] Provider, [facility] Social History [...] on filedocumented in this encounter Care Teams Manufacturing Test Engineer Relationship Specialty Start Date End Date Daron Ratliff MD PCP - General 12/23/09 04/11/16 Jg Garvin DO [address] [place] [address] PCP - General 07/08/08 12/22/09 Keila Cadet PA-C [address] [place] [address] PCP - General Family Medicine 04/12/16 David Eubanks DO [address] [place] [address] Referring Neurology 02/11/20 documented as of this encounter
--- OUTSIDE RECORDS SUMMARY | 2025-01-23 12:03 | XMS_ITS | Encounter Summary ---
Author Organization [facility] Address [address] [place] [address] Care Team Providers Care Zipper Cutter Name Role Phone Daron Ratliff MD Primary Care Provider [phone] MastJg E DO Primary Care Provider [phone] Pcp, No Primary Care Provider Unavailabl e Pcp, No Primary Care Provider Unavailabl e Keila Cadet PA-C Primary Care Provider David Eubanks DO Unavailable [phone] Source Comments In the event this information is protected by the Federal Confidentiality of Alcohol and Drug AbusePatient Records regulations: The Federal rules restrict any use of the information to criminally investigate or prosecute any alcohol or drug abuse patient.[facility] Encounter Details Date Type Department Care Team (Late st Contact Info) Description 11/08/2007 Patient Msg Medical Records [address] [place] [address] Provider, [facility] Social History [...] on filedocumented in this encounter Care Teams Zipper Cutter Relationship Specialty Start Date End Date Daron Ratliff MD PCP - General 12/23/09 04/11/16 Jg Garvin DO [address] [facility] [place] [address] PCP - General 07/08/08 12/22/09 Pcp, No [facility] [facility] [place] [address] PCP - General 04/17/08 07/07/08 Pcp, No [address] [facility] [address] PCP - General 06/13/06 01/07/08 Keila Cadet PA-C [address] [facility] [place] [address] PCP - General Family Medicine 04/12/16 David Eubanks DO [address] [facility] [place] [address] Referring Neurology 02/11/20 documented as of this encounter
--- OUTSIDE RECORDS SUMMARY | 2025-01-23 12:03 | XMS_ITS | Encounter Summary ---
Author Organization [facility] Address [address] [place] [address] Care Team Providers Care Armature Bander Name Role Phone Daron Ratliff MD Primary Care Provider [phone] Jg Garvin DO Primary Care Provider [phone] Keila Cadet PA-C Primary Care Provider David Eubanks DO Unavailable [phone] Source Comments In the event this information is protected by the Federal Confidentiality of Alcohol and Drug AbusePatient Records regulations: The Federal rules restrict any use of the information to criminally investigate or prosecute any alcohol or drug abuse patient.[facility] Encounter Details Date Type Department Care Team (Late st Contact Info) Description 04/03/2009 Patient Msg Medical Records [address] [place] [address] Provider, [facility] Social History Tobacco Use [...] on filedocumented in this encounter Care Teams Armature Bander Relationship Specialty Start Date End Date Daron Ratliff MD PCP - General 12/23/09 04/11/16 Jg Garvin DO [address] [place] [address] PCP - General 07/08/08 12/22/09 Keila Cadet PA-C [address] [place] [address] PCP - General Family Medicine 04/12/16 David Eubanks DO [address] [place] [address] Referring Neurology 02/11/20 documented as of this encounter
--- OUTSIDE RECORDS SUMMARY | 2025-01-23 12:03 | XMS_ITS | Encounter Summary ---
Author Organization [facility] Address [address] [place] [address] Care Team Providers Care Parts Person Name Role Phone Unallocated, Nomantwon Provider Primary Care Provi marco a Mustapha Barnes DO Unavailable [phone] Irasema Zacarias LOG PEELER Unavailable [phone] Encounter Details Date Type Department Care Team ([facility] Contact Info) Description 12/02/2023 Abstract [facility] [address] [place] [address] Dara Farris LPN [address] [place] [address] Social History Tobacco Use Types Packs/Day Years [...] filedocumented in this encounter Care Teams Parts Person Relationship Specialty Start Date End Date Unallocated, [facility] ProviderMD [address] [address] PCP - General 11/15/22 06/17/24 Mustapha Barnes DO [address] [place] [address] Referring Physician Neurology 06/18/24 Irasema Zacarias NP [address] [place] [address] [address] Referring Physician Family Medicine 06/18/24 documented as of this encounter
--- OUTSIDE RECORDS SUMMARY | 2025-01-23 12:03 | XMS_ITS | Encounter Summary ---
Author Organization [facility] Address [address] [place] [address] Care Team Providers Care Selling Manager Name Role Phone Daron Ratliff MD Primary Care Provider [phone] Jg Garvin DO Primary Care Provider [phone] Keila Cadet PA-C Primary Care Provider David Eubanks DO Unavailable [phone] Source Comments In the event this information is protected by the Federal Confidentiality of Alcohol and Drug AbusePatient Records regulations: The Federal rules restrict any use of the information to criminally investigate or prosecute any alcohol or drug abuse patient.[facility] Encounter Details Date Type Department Care Team (Late st Contact Info) Description 04/01/2009 Patient Msg Medical Records [address] [place] [address] Provider, [facility] Social History [...] on filedocumented in this encounter Care Teams Selling Manager Relationship Specialty Start Date End Date Daron Ratliff MD PCP - General 12/23/09 04/11/16 Jg Garvin DO [address] [place] [address] PCP - General 07/08/08 12/22/09 Keila Cadet PA-C [address] [place] [address] PCP - General Family Medicine 04/12/16 David Eubanks DO [address] [place] [address] Referring Neurology 02/11/20 documented as of this encounter
--- OUTSIDE RECORDS SUMMARY | 2025-01-23 12:03 | XMS_ITS | Encounter Summary ---
Author Organization [facility] Address [address] [place] [address] Care Team Providers Care Production Dispatcher Name Role Phone Daron Ratilff MD Primary Care Provider [phone] Jg Garvin DO Primary Care Provider [phone] Keila Cadet PA-C Primary Care Provider David Eubanks DO Unavailable [phone] Source Comments In the event this information is protected by the Federal Confidentiality of Alcohol and Drug AbusePatient Records regulations: The Federal rules restrict any use of the information to criminally investigate or prosecute any alcohol or drug abuse patient.[facility] Encounter Details Date Type Department Care Team (Late st Contact Info) Description 05/06/2009 Patient Msg Medical Records [address] [place] [address] Provider, [facility] Social History [...] on filedocumented in this encounter Care Teams Production Dispatcher Relationship Specialty Start Date End Date Daron Ratliff MD PCP - General 12/23/09 04/11/16 Jg Garvin DO [address] [place] [address] PCP - General 07/08/08 12/22/09 Keila Cadet PA-C [address] [place] [address] PCP - General Family Medicine 04/12/16 David Eubanks DO [address] [place] [address] Referring Neurology 02/11/20 documented as of this encounter
--- OUTSIDE RECORDS SUMMARY | 2025-01-23 12:03 | XMS_ITS | Encounter Summary ---
Author Organization [facility] Address [address] [place] [address] Care Team Providers Care Package Dyeing Machine Operator Name Role Phone Daron Ratliff MD Primary Care Provider [phone] MastJg E DO Primary Care Provider [phone] Pcp, No Primary Care Provider Unavailabl e Pcp, No Primary Care Provider Unavailabl e Keila Cadet PA-C Primary Care Provider David Eubanks DO Unavailable [phone] Source Comments In the event this information is protected by the Federal Confidentiality of Alcohol and Drug AbusePatient Records regulations: The Federal rules restrict any use of the information to criminally investigate or prosecute any alcohol or drug abuse patient.[facility] Encounter Details Date Type Department Care Team (Late st Contact Info) Description 09/29/2007 Patient Msg Medical Records [address] [place] [address] Provider, [facility] Procedure Social History Tobacco Use Types Packs/Day Years [...] on filedocumented in this encounter Care Teams Package Dyeing Machine Operator Relationship Specialty Start Date End Date Daron Ratliff MD PCP - General 12/23/09 04/11/16 Jg Garvin DO [address] [facility] [place] [address] PCP - General 07/08/08 12/22/09 Pcp, No [address] [facility] [place] [address] PCP - General 04/17/08 07/07/08 Pcp, No [address] [facility] [place] [address] PCP - General 06/13/06 01/07/08 Keila Cadet PA-C [address] [facility] [place] [address] PCP - General Family Medicine 04/12/16 David Eubanks DO [address] [facility] [place] [address] Referring Neurology 02/11/20 documented as of this encounter
--- OUTSIDE RECORDS SUMMARY | 2025-01-23 12:03 | XMS_ITS | Patient Health Record ---
Author Organization [facility] Address [address] [address] Care Team Providers Care Assembler Erector Name Role Phone RADHA MAKI Primary Care Provider May sally Persaud Mildred Unavailable [phone] Rod Pastor Unavailable [phone] Reason For Referral No Information Social History Social History Tobacco Use: Social Info Question Answer Notes Tobacco Use/Smoking How long has it been since you last smoked? > 10 years Problems Problem Type SNOMED Code ICD Code Onset Dates Problem Status W/U Status Risk Notes Problem Asthma (021851126) Asthma (J45.909) Active confirmed Problem Solitary nodule of lung (276969885) Lung nodule (R91.1) Active confirmed Problem Obstructive sleep apnea syndrome (75261037) DIETER (obstructive sleep apnea) (G47.33) Active confirmed Problem Post-laminectomy syndrome (72302502) Post laminectomy syndrome (M96.1) Active confirmed Problem Sciatica (58884759) Lumbago of lumbar region with sciatica (M54.40) Active confirmed Problem Neurogenic claudication (560723950) Lumbar stenosis with neurogenic claudication (M48.062) Active confirmed Encounters Encounter Location Date Provider Diagnosis [facility] [address] [facility] [address] [place] [address] 01/16/2025 Rod Pastor Lumbar stenosis with neurogenic claudication M48.062 ; Lumbago of lumbar region with sciatica M54.40 and Post laminectomy syndrome M96.1 Assessments Encounter Date Diagnosis (ICD Code) Assessment Notes Treatment Notes Treatment Clinical Notes Section Notes 01/16/2025 Lumbago of lumbar region with sciatica [...] 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 Capellan with right leg numbness inability to walk she is in physical therapy now [employer] 12 sessions that is helping a lot [...] MRI lumbar spine December 17, 2024 at [facility] surgery as a last option discussed otherwise [...] al therapy, possible elective major surgery. 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 Capellan with right leg numbness inability to walk she is in physical therapy now Allan Cassia 12 sessions that is helping a lot [...] MRI lumbar spine December 17, [address] 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 Capellan with right leg numbness inability [...] MRI lumbar spine December 17, [address] [facility] surgery as a last option discussed otherwise [...] major surgery. Plan Of Treatment No Information Insurance Providers Payer Name Payer Address Payer Phone Subscriber Number Group Number Insured Name Patient Relationship to Insured Coverage Start Date Coverage End Date [employer] [address] [place] [address] [id number] [employer] Self - patient is the insured [place] [employer] [address] [place], [place] [id number] [place] [employer] Self - patient is the insured
--- OUTSIDE RECORDS SUMMARY | 2025-01-23 12:03 | XMS_ITS | Encounter Summary ---
Author Organization [facility] Address [address] [place] [address] Care Team Providers Care Structural Iron Worker Name Role Phone Daron Ratliff MD Primary Care Provider [phone] MastJg E DO Primary Care Provider [phone] Pcp, No Primary Care Provider Unavailabl e Pcp, No Primary Care Provider Unavailabl e Keila Cadet PA-C Primary Care Provider David Eubanks DO Unavailable [phone] Source Comments In the event this information is protected by the Federal Confidentiality of Alcohol and Drug AbusePatient Records regulations: The Federal rules restrict any use of the information to criminally investigate or prosecute any alcohol or drug abuse patient.[facility] Encounter Details Date Type Department Care Team (Late st Contact Info) Description 11/15/2007 Patient Msg Medical Records [address] [place] [address] Provider, [facility] Social History [...] on filedocumented in this encounter Care Teams Structural Iron Worker Relationship Specialty Start Date End Date Daron Ratliff MD PCP - General 12/23/09 04/11/16 Jg Garvin DO [address] [facility] [place] [address] PCP - General 07/08/08 12/22/09 Pcp, No [address] [facility] [place] [address] PCP - General 04/17/08 07/07/08 Pcp, No [address] [facility] [place] [address] PCP - General 06/13/06 01/07/08 Keila Cadte PA-C [address] [facility] [place] [address] PCP - General Family Medicine 04/12/16 David Eubanks DO [address] [facility] [place] [address] Referring Neurology 02/11/20 documented as of this encounter
--- OUTSIDE RECORDS SUMMARY | 2025-01-23 12:03 | XMS_ITS | Clinical Summary ---
Author Organization [facility] Address [address] [place] [address] Phone Care Team Providers Care Athletic Training Internship Name Role Phone Unavailable Primary Care Provider Unavailabl e Social History Tobacco Use Types Packs/Day Years Used Date Smoking Tobacco: Never Assessed Comments Unknown Sex and Gender Information Value Date Recorded Sex Assigned at Not on file Legal Sex Female 6:44 AM EST Gender Identity Not on file Sexual Orientation Not on file Last Filed Vital Signs Vital Sign Reading Time Taken Comments Blood Pressure - - Pulse - - Temperature - - Respiratory Rate - - Oxygen Saturation - - Inhaled Oxygen Concentration - - Weight 136 kg (299 lb) 11/11/2021 8:51 AM EDT Height 175.3 cm (5' 9 ) 11/11/2021 8:51 AM EDT Body Mass Index 44.15 11/11/2021 8:51 AM EDT Plan of Treatment Not on file
--- OUTSIDE RECORDS SUMMARY | 2025-01-23 12:03 | XMS_ITS | Encounter Summary ---
Author Organization [facility] Address [address] [place] [address] Care Team Providers Care Microbiology Coordinator Name Role Phone Daron Ratliff MD Primary Care Provider [phone] Jg Garvin DO Primary Care Provider [phone] Keila Cadet PA-C Primary Care Provider David Eubanks DO Unavailable [phone] Source Comments In the event this information is protected by the Federal Confidentiality of Alcohol and Drug AbusePatient Records regulations: The Federal rules restrict any use of the information to criminally investigate or prosecute any alcohol or drug abuse patient.[facility] Encounter Details Date Type Department Care Team (Late st Contact Info) Description 03/29/2009 Patient Msg Medical Records [address] [place] [address] Provider, [facility] Social History [...] on filedocumented in this encounter Care Teams Microbiology Coordinator Relationship Specialty Start Date End Date Daron Ratliff MD PCP - General 12/23/09 04/11/16 Jg Garvin DO [address] [place] [address] PCP - General 07/08/08 12/22/09 Keila Cadet PA-C [address] [place] [address] PCP - General Family Medicine 04/12/16 David Eubanks DO [address] [place] [address] Referring Neurology 02/11/20 documented as of this encounter
--- OUTSIDE RECORDS SUMMARY | 2025-01-23 12:03 | XMS_ITS | Encounter Summary ---
Author Organization [facility] Address [address] [place] [address] Care Team Providers Care Control Room Tender Name Role Phone Unallocated, Nomantwon Provider Primary Care Provi marco a Mustapha Barnes DO Unavailable Irasema Zacarias FRYLINE ATTENDANT Unavailable [phone] Encounter Details Date Type Department Care Team ([facility] [address] Contact Info) Description 01/17/2024 Abstract [facility] [address] [address] Dara Farris LPN [address] [place] [address] Social History Tobacco Use Types [...] on filedocumented in this encounter Care Teams Control Room Tender Relationship Specialty Start Date End Date Unallocated, [facility] ProviderMD [address] [address] PCP - General 11/15/22 06/17/24 Mustapha Barnes DO [address] [place] [address] Referring Physician Neurology 06/18/24 Irasema Zacarias NP [address] [place] [address] [address] Referring Physician Family Medicine 06/18/24 documented as of this encounter
--- OUTSIDE RECORDS SUMMARY | 2025-01-23 12:03 | XMS_ITS | Encounter Summary ---
Author Organization [facility] Address [address] [place] [address] Care Team Providers Care Telecommunication Tower Technician Name Role Phone Daron Ratliff MD Primary Care Provider MastJg DO Primary Care Provider [phone] Pcp, No Primary Care Provider UnavailKeila Masterson PA-C Primary Care Provider David Eubanks DO Unavailable [phone] Source Comments In the event this information is protected by the Federal Confidentiality of Alcohol and Drug AbusePatient Records regulations: The Federal rules restrict any use of the information to criminally investigate or prosecute any alcohol or drug abuse patient.[facility] Encounter Details Date Type Department Care Team ([facility] st Contact Info) Description 07/02/2008 Patient Msg Medical Records [address] [place] [address] Provider, [facility] Social History [...] on filedocumented in this encounter Care Teams Telecommunication Tower Technician Relationship Specialty Start Date End Date Daron Ratliff MD PCP - General 12/23/09 04/11/16 Jg Garvin DO [address] [place] [address] PCP - General 07/08/08 12/22/09 Pcp, Judi [address] [place] [address] PCP - General 04/17/08 07/07/08 Keila Cadet PA-C [address] [facility] [place] [address] PCP - General Family Medicine 04/12/16 David Eubanks DO [address] [facility] [place] [address] Referring Neurology 02/11/20 documented as of this encounter
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
--- OUTSIDE RECORDS SUMMARY | 2025-01-23 12:04 | XMS_ITS | Encounter Summary ---
Author Organization [facility] Address [address] [place] [address] Care Team Providers Care Head Concierge Name Role Phone Daron Ratliff MD Primary Care Provider [phone] Jg Garvin DO Primary Care Provider Keila Cadet PA-C Primary Care Provider David Eubanks DO Unavailable [phone] Source Comments In the event this information is protected by the Federal Confidentiality of Alcohol and Drug AbusePatient Records regulations: The Federal rules restrict any use of the information to criminally investigate or prosecute any alcohol or drug abuse patient.[facility] Encounter Details Date Type Department Care Team (Late st Contact Info) Description 11/14/2009 Patient Msg Medical Records [address] [place] [address] Provider, [facility] Social History [...] on filedocumented in this encounter Care Teams Head Concierge Relationship Specialty Start Date End Date Daron Ratliff MD PCP - General 12/23/09 04/11/16 Jg Garvin DO [address] [place] [address] PCP - General 07/08/08 12/22/09 Keila Cadet PA-C [address] [place] [address] PCP - General Family Medicine 04/12/16 David Eubanks DO [address] [place] [address] Referring Neurology 02/11/20 documented as of this encounter
--- OUTSIDE RECORDS SUMMARY | 2025-01-23 12:04 | XMS_ITS | Encounter Summary ---
Author Organization [facility] Address [address] [place] [address] Care Team Providers Care Stone Chimney Mason Name Role Phone Unallocated, Nom[place] Provider Primary Care Provi marco a Mustapha Barnes DO Unavailable [phone] Irasema Zacarias CADDY MASTER Unavailable Encounter Details Date Type Department Care Team ([facility] Contact Info) Description 11/24/2023 Abstract [facility] [address] [place] [address] Inge Hinkle LPN [address] [place] [address] [place] [address] Social History Tobacco Use Types [...] on filedocumented in this encounter Care Teams Stone Chimney Mason Relationship Specialty Start Date End Date Unallocated, Noms ProviderMD [address] [place] [address] PCP - General 11/15/22 06/17/24 Mustapha Barnes DO [address] [place] [address] Referring Physician Neurology 06/18/24 Irasema Zacarias NP [address] [place] [address] [address] Referring Physician Family Medicine 06/18/24 documented as of this encounter
--- OUTSIDE RECORDS SUMMARY | 2025-01-23 12:04 | XMS_ITS | Clinical Summary ---
Author Organization [facility] Address [address] [place] [address] Care Team Providers Care Auto Apprentice Mechanic Name Role Phone Keila Cadet PA-C Primary Care Provider David Eubanks DO Unavailable [phone] Allergies Active Allergy Reactions Criticality Noted Date Comments Codeine 08/16/2005 Egg Rash High 07/11/2019 Throat swelling Erythromycin Other: See Comments 03/31/2022 Sumatriptan Succinate 05/16/2009 Difficulty breathing Latex Rash,Swelling 08/16/2005 Lurasidone Other: See Comments,Intolerance 03/31/2022 Morphine 05/23/2008 Semaglutide GI Upset 03/31/2022 Penicillins 11/15/2006 Phenazopyridine Hcl 10/31/2007 Inside body burning, pain all over body Medications * This document contains information received from the source organization and may not represent a complete record from that organization. albuterol 90 mcg/Actuation INHALATION Aero as necessary for asthma 0 007 Active dicyclomine (BENTYL) 20 mg tablet Take 20 mg by mouth as needed. Active verapamil (CALAN, ISOPTIN) 120 mg tablet Take 120 mg by mouth once daily. Active ADVAIR HFA 230-21 mcg/actuation inhalerIndicati ons:Severe persistent asthma without complication (HCC),Dyspnea, unspecified type,Obesity, unspecified classification, unspecified obesity type, unspecified whether serious comorbidity present,Allergi c rhinitis due to pollen, unspecified seasonality,Gas troesophageal reflux disease,Sleep apnea, unspecified type INHALE 2 PUFFS BY MOUTH TWICE DAILY DIRECTED 12 g 11 021 Active fluticasone (FLONASE) 50 mcg/actuation nasal sprayIndication s:Severe persistent asthma without complication (HCC),Dyspnea, unspecified type,Obesity, unspecified classification, unspecified obesity type, unspecified whether serious comorbidity present,Allergi c rhinitis due to pollen, unspecified seasonality,Sle ep apnea, unspecified type SHAKE LIQUID AND USE 2 SPRAYS IN EACH NOSTRIL EVERY DAY 48 g 3 022 Active brexpiprazole (REXULTI) 2 mg tablet 022 Active hydrOXYzine pamoate (VISTARIL) 25 mg capsule TAKE 1 CAPSULE BY MOUTH EVERY DAY AT BEDTIME NEEDED Active ondansetron (ZOFRAN) 4 mg tablet Take 4 mg by mouth. 022 Active dextromethorpha n-buPROPion (AUVELITY) 45-105 mg tablet 1 tablet Orally twice daily for 90 days 023 Active galcanezumab-gn lm (EMGALITY PEN) 120 mg/mL pen ADMINISTER 1 ML UNDER THE SKIN EVERY 30 DAYS 023 Active omeprazole (PRILOSEC) 40 mg capsule 1 capsule. 020 Active UBRELVY 100 mg tablet TAKE 1 TABLET BY MOUTH AT ONSET OF MIGRAINE. MAY REPEAT AFTER 2 HOURS NEEDED 30 DAYS 024 Active tirzepatide (MOUNJARO) 2.5 mg/0.5 mL pen injectorIndicat ions:Type 2 diabetes mellitus without complication, without long-term current use of insulin (HCC),Class 3 severe obesity with serious comorbidity and body mass index (BMI) of 40.0 to 44.9 in adult, unspecified obesity type (HCC) Inject 2.5 mg subcutaneously one time a week. 2 mL 3 024 Active MOUNJARO 5 mg/0.5 mL pen injectorIndicat ions:Type 2 diabetes mellitus without complication, without long-term current use of insulin (HCC),Class 3 severe obesity with serious comorbidity and body mass index (BMI) of 40.0 to 44.9 in adult, unspecified obesity type (HCC) ADMINISTER 5 MG UNDER THE SKIN 1 TIME A WEEK 2 mL 2 025 Active MOUNJARO 5 mg/0.5 mL pen injectorIndicat ions:Type 2 diabetes mellitus without complication, without long-term current use of insulin (HCC),Class 3 severe obesity with serious comorbidity and body mass index (BMI) of 40.0 to 44.9 in adult, unspecified obesity type (HCC) ADMINISTER 5 MG UNDER THE SKIN 1 TIME A WEEK 2 mL 2 025 2024 Discontinued Active Problems Problem Noted Date Diagnosed Date Type 2 diabetes mellitus wit hout complication, without long-term current use of insulin 06/24/2022 Chronic pain syndrome 04/20/2016 Lumbar disc herniation 04/20/2016 Fibromyalgia 11/06/2015 Fitting and adjustment of orthopedic device 01/08 Sprained ankle 01/26/2010 Crohn's ileitis 01/31/2009 Myalgia and myositis 01/31/2009 Hemorrhage of rectum and anus 07/29/2008 Class 3 severe obesity due t o excess calories without serious comorbidity with body mass index (BMI) of 40.0 to 44.9 in adult 07/09/2008 Crohn's disease 05/09/2008 Overview (04/20/2016): in [place] Unspecified asthma(493.90) Overview (07/09/2008): PRN Albuterol Hemorrhage of gastrointestinal tract, unspecifie d Depressive disorder, not elsewhere classified Overview (07/09/2008): on zoloft Anxiety disorder in conditions classified elsew ere Overview (07/09/2008): has panic attacks. PCOS (polycystic ovarian syndrome) Overview (07/09/2008): syndrome Migraine without aura and wi thout status migrainosus, not intractable Overview (04/20/2016): Uses Excedrin PRN. Irritable bowel syndrome Overview (04/20/2016): On Douglasyl and Michelleergan, crohn's DX GERD (gastroesophageal reflux disease) Endometriosis, site unspecified Overview (04/20/2016): DIAGNOSED IN 2003 Bipolar 1 disorder Arthritis Abdominal pain, generalized Anxiety and depression Former smoker BMI 40.0-44.9, adult Resolved Problems Problem Noted Date Diagnosed Date Resolved Date Neuritis 01/26/2010 11/06/2015 Abdominal pain, unspecified site 12/17/2008 01/31/2009 Spasm of muscle 09/27/2008 01/31/2009 Abnormal coagulation profile 07/31/2008 01/31/2009 Endometriosis, site unspecified 01/31/2009 Abdominal pain, generalized 01/31/2009 Morbid obesity 07/09/2008 Irritable bowel syndrome Overview (07/09/2008): On Renny and Jacqueline Encounters Date Type Department Care Team Description 12/29/2024 Refill Endocrinology [address] [place] [address] Edmundo Devlin MD Refill Request from Last 3 Months Family History Medical History Relation Comments Heart Maternal Aunt 1 Hypertension Maternal Aunt 2 Hypertension Maternal Grandfather Cancer Maternal Grandmother ovarian and cervical Coronary Artery Disease Maternal Grandmother Diabetes Maternal Grandmother Cancer Mother ovarian and cerv ical Diabetes Mother Coronary Artery Disease Paternal Grandfather Relation Status Comments Father Alive Maternal Aunt 1 Maternal Aunt 2 Maternal Grandfather Maternal Grandmother Alive Mother Alive Paternal Grandfather Social History Tobacco Use Types Packs/Day Years Used Date Smoking Tobacco: Former Cigarettes 0.5 1 0 05/09/2005 - 05/09/2006 Smokeless Tobacco: Never Tobacco Cessation:Counseling Given: Not Answered Comments:PATIENT SMOKED 4-5 CIGARETTES DAILY BEFORE QUITTING Alcohol Use Standard Drinks/Week Comments No 0 (1 standard drink = 0.6 oz pur e alcohol) PHQ-2 Answer Date Recorded PHQ-2 score 0 10/30/2023 Area Deprivation Index Answer Date Cirilo rded National Score (1-100), lower number is lower ri sk Not on file 2020 State Score (1-10), lower number is lower risk N ot on file 2020 Data from: https://www.neighborhoodatlas.medicine.[facility].edu/. 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 Not on file Not on file Not on file Last Filed Vital Signs Vital Sign Reading Time Taken Comments Blood Pressure 114/76 07/01/2023 9:18 AM EST Pulse 87 07/01/2023 9:18 AM EST Temperature 36.4 C (97.6 F) 07/11/2019 10:58 AM EST Respiratory Rate 18 07/11/2019 10:58 AM EST Oxygen Saturation 96% 07/11/2019 10:58 AM EST Inhaled Oxygen Concentration - - Weight 137 kg (302 lb) 06/01/2024 2:13 PM EST Height 175.3 cm (5' 9 ) 07/11/2019 10:58 AM EST Body Mass Index 44.6 07/11/2019 10:58 AM EST Plan of Treatment Health Maintenance Due Date Last Done Comments Dilated Retinal Exam 1995 Urine Albumin:Creatinine Ratio 1995 Annual PCP Team Chronic Dise ase Visit 2003 HIV Screening 2003 Pneumococcal Vaccine (1 of 2 - PCV) 2004 HPV Vaccine (1 - 3-dose SCDM series) 2012 Cervical Cancer Screening 12/23/20122009 (Other), 05/23/2008, 11/15/2006 Diabetic Foot Exam 03/31/2023 03/31/2022 HbA1C 01/04/2024 07/06/2023, 06/10, 03/31/2022 Medicare Advantage Annual We llness Visit 05/09/2024 LDL Cholesterol 07/06/2024 07/06/2023, 06/10, 04/30/2009 Influenza Vaccine (#1) 2025 8 (Patient/Parent/Guardian Counseled and Declines) DTaP,Tdap,Td Vaccine (2 - Td or Tdap) 11/03/2030 11/03/2020 Hepatitis C Screening Completed 09/11/2008 Procedures Procedure Name Priority Date/Time Associated Diagnosis Comments HEMOGLOBIN A1C Routine 07/06/2023 10:16 AM EST Type 2 diabetes mellitus without complication, without long-term current use of insulin (HCC) Class 3 severe obesity with serious comorbidity and body mass index (BMI) of 40.0 to 44.9 in adult, unspecified obesity type (HCC) LIPID PANEL, FASTING Routine 07/06/2023 10:16 AM EST Type 2 diabetes mellitus without complication, without long-term current use of insulin (HCC) Class 3 severe obesity with serious comorbidity and body mass index (BMI) of 40.0 to 44.9 in adult, unspecified obesity type (HCC) HEP REMOTE PANEL BL Routine 09/11/2008 1 1:05 AM EDT Inflamm Polyarthrop Nos PAP FLUID CERVICAL SCREENING Routine 05/23/2008 12:38 PM EST Screening Mal Neop-Cervix from Last 3 Months or Most Recently Relevant to Health Maintenance Results * (ABNORMAL) LIPID PANEL BASIC (07/06/2023 10:16 AM EST) Cholesterol, Total 240(H) <200 mg/dL 07/06/2023 8:15 PM [facility] Comment: <200 mg/dL, Desirable 200-239 mg/dL, Borderline high >239 mg/dL, High Triglyceride 199(H) <150 mg/dL 07/06/2023 8:15 PM [facility] Comment: <150 mg/dL, Normal 150-199 mg/dL, Borderline high 200-499 mg/dL, High >499 mg/dL, Very high HDL Cholesterol 45 >39 mg/dL 8:15 PM [facility] Comment: 40-59 mg/dL, Acceptable >59 mg/dL, High: Negative risk factor for coronary heart disease <40 mg/dL, Low: Positive risk factor for coronary heart disease Non HDL Cholesterol 195(H) <130 mg/dL 07/06/2023 8:15 PM [facility] Comment: <130 mg/dL, Optimal 130-159 mg/dL, Near optimal/above optimal 160-189 mg/dL, Borderline high 190-219 mg/dL, High >219 mg/dL, Very high Secondary prevention optimal non HDL Cholesterol levels are recommended to be <100 mg/dL Fasting Time 12 hrs 07/06/2023 8:15 PM EST [facility] VLDL Cholesterol 40(H) <30 mg/dL 07/06/19 8:15 PM EST [facility] TC:HDL Ratio 5.33(H) <5.10 07/06/2023 8:15 PM EST [facility] LDL Cholesterol, Calculated 155(H) <100 mg/dL 07/06/2023 8:15 PM EST [facility] Comment: <100 mg/dL, Optimal 100-129 mg/dL, Near optimal/above optimal 130-159 mg/dL, Borderline high 160-189 mg/dL, High >189 mg/dL, Very high Secondary prevention optimal LDL Cholesterol levels are recommended to be < 70 mg/dL LDL:HDL Ratio 3.44(H) <2.54 07/06/2023 8:15 PM EST [facility] Comment: Reference: 1. National Cholesterol Education Program ATP III Guideline At-A-Glance Quick Desk Reference: National Heart, Lung, and Blood [place]. National Institutes of Health. 2001: NIH Publication No. 01-3305. 2. An International Atherosclerosis Society position paper: global recommendations for the management of dyslipidemia: executive summary, Atherosclerosis. 2014: 232(2):410-413. Blood BLOOD SPECIMEN / Unknown Venipuncture / Unknown 07/06/2023 10:16 AM EST 07/06/2023 10:16 AM EST us Edmundo Devlin MD LABORATORY Final Result [facility] [address] [facility] [address] [place] [address], [facility] [address] [place] [address] * (ABNORMAL) HGB A1C (07/06/2023 10:16 AM EST) Hemoglobin A1C 6.1(H) 4.3 - 5.6 % 07/06/2023 11:16 PM EST [facility] Comment:[place] Diabetes As sociation guidelines indicate that patients with HgbA1c in the range 5.7-6.4% are at increased risk for development of diabetes, and intervention by lifestyle modification may be beneficial. HgbA1c greater or equal to 6.5% is considered diagnostic of diabetes. Estimated Average Glucose 128 mg/dL 07/06/2023 11:16 PM EST [facility] Comment:eAG: (Estimated aver age glucose) is a calculated value from HgbA1c and is access service representative of the average blood glucose level in the last 2-3 month period. Blood BLOOD SPECIMEN / Unknown Venipuncture / Unknown 07/06/2023 10:16 AM EST 07/06/2023 10:16 AM EST us Edmundo Devlin MD LABORATORY Final Result Performing Organization Address [facility] Co de Phone Number [facility] [address] [place] [address] * (ABNORMAL) HEP REMOTE PANEL BL (09/11/2008 11:05 AM EDT) [facility] Hep B Core Ab, Total Negative [facility] Hep C Antibody IA Negative NEGAT [facility] HBsAg Negative NEGAT [facility] Hep B Surface Ab, Qual Positive(A) [facility] Comment: These results are consistent with previous exposure and/or immunity to the hepatitis B virus antigen. Blood specimen (specimen) BLOOD SPECIMEN / Unknown 09/11/2008 11:05 AM EDT us Blanca Ortiz MD LABORATORY Final R esult Performing Organization Address [facility]/ZIP Co de Phone Number [facility] [address] [place] [address] * PAP FLUID CERVICAL SCREENING (05/23/2008 12:38 PM EST) Pathologist [facility] Salesforce Developer Specimen #: [id number] Submitting Physician: MAYRA HARO M.D. ([id number]) SPECIMEN SUBMITTED A: CERVICAL,SCREENING ,FLUID FINAL DIAGNOSIS A. CERVICAL,SCREENING ,FLUID SATISFACTORY FOR INTERPRETATION. NEGATIVE FOR INTRAEPITHELIAL LESION OR MALIGNANCY. This specimen has been analyzed by the [employer] Imaging System ([employer]), an automated imaging and review system, which assists the laboratory in evaluating cells on ThinPrep Pap tests. Following automated imaging, selected jamil from every slide are reviewed by a health science instructor. Reema DUGGAN(ASCP) (Electronic Signature) CLINICAL DATA ROUTINE EXAM Date of Last Menstrual Period: LMP: 04/11/08 Contraceptive History: DEPO-PROVERA: X10 DAYS EVERY 3 MONTHS TO ACHIEVE MENSES Additional Testing: Reflex HPV testing for ASCUS Kyung Shahid M.D., Lens Marker : 1985 (Age: 23) F Date of Report: 05/29/2008 Date of Procedure: 05/23/2008 Date of Receipt: 05/24/2008 Submitted by: MAYRA HARO M.D. ([id number]) Location: A81 Test performed by: [facility], [address] [place] [address] [facility] Specimen from uterine cervix (specimen) CERVICAL / Unknown 05/23/2008 12:38 PM EST 05/24/2008 1:38 PM EST us Mayra Haro MD CYTOLOGY Final Result [facility] [address] [place] [address] from Last 3 Months or Most Recently Relevant to Health Maintenance Insurance MEDICAID [place] [employer] MEDICARE ADVANTAGE O * Guarantor: [employer] Account Type Relation to Patient Date of Phone Billing Address Self Pay Self [address] [address] Care Teams Auto Apprentice Mechanic Relationship Specialty Start Date End Date Keila Cadet PA-C PCP - General Family Medicine 04/12/16 David Eubanks DO Referring Neurology 02/11/20
--- OUTSIDE RECORDS SUMMARY | 2025-01-23 12:04 | XMS_ITS | Encounter Summary ---
Author Organization [facility] Address [address] [place] [address] Care Team Providers Care Assistant Professor Name Role Phone Daron Ratliff MD Primary Care Provider [phone] Keila Cadet PA-C Primary Care Provider David Eubanks DO Unavailable Source Comments In the event this information is protected by the Federal Confidentiality of Alcohol and Drug AbusePatient Records regulations: The Federal rules restrict any use of the information to criminally investigate or prosecute any alcohol or drug abuse patient.[facility] Encounter Details Date Type Department Care Team (Late st Contact Info) Description 02/13/2010 Patient Msg Medical Records [address] [place] [address] Provider, [facility] Health Information Exchange Social History Tobacco Use [...] on filedocumented in this encounter Care Teams Assistant Professor Relationship Specialty Start Date End Date Daron Ratliff MD PCP - General 12/23/09 04/11/16 Keila Cadet PA-C PCP - General Family Medicine 04/12/16 David Eubanks DO Referring Neurology 02/11/20 documented as of this encounter
--- OUTSIDE RECORDS SUMMARY | 2025-01-23 12:04 | XMS_ITS | Encounter Summary ---
Author Organization [facility] Address [facility] [place] [address] Care Team Providers Care Safety Pin Assembling Machine Operator Name Role Phone Keila Cadet PA-C Primary Care Provider David Eubanks DO Unavailable [phone] Source Comments In the event this information is protected by the Federal Confidentiality of Alcohol and Drug AbusePatient Records regulations: The Federal rules restrict any use of the information to criminally investigate or prosecute any alcohol or drug abuse patient.[facility] Encounter Details Date Type Department Care Team (Late st Contact Info) Description 09/10/2022 Patient Msg General Surgery BMI PSYL [address] [place], [place] [id number] Susan Garcia, PhD [address] [place] [address] Thank you for attending the Psychology Welcome group! Social History Tobacco Use Types Packs/Day Years Used Date Smoking Tobacco: Former Cigarettes 0.5 1 0 05/09/2005 - 05/09/2006 Smokeless Tobacco: Never Comments:PATIENT SMOKED 4-5 CIGARETTES DAILY BEFORE QUITTING Alcohol Use Standard Drinks/Week Comments No 0 (1 standard drink = 0.6 oz pur e alcohol) PHQ-2 Answer Date Recorded PHQ-2 score 4 09/08/2022 Area Deprivation Index Answer Date Cirilo rded National Score (1-100), lower number is lower ri sk Not on file 2020 State Score (1-10), lower number is lower risk N ot on file 2020 Data from: https://www.neighborhoodatlas.medicine.[facility]/. Last address used for calculation Not on [...] file Not on file Not on file documented as of this encounter Functional Status * Are you deaf or do you have serious difficulty hearing? Answer Date of Assessment Author No 04/20/2016 11:07 AM Monie Mohan on K * Are you blind or do you have serious difficulty seeing, even when wearing glasses? Answer Date of Assessment Author No 04/20/2016 11:07 AM Monie Mohan on K * Do you have serious difficulty walking or climbing stairs? Answer Date of Assessment Author Yes 04/20/2016 11:07 AM Monie Mohan on K * Do you have difficulty dressing or bathing? Answer Date of Assessment Author Yes 04/20/2016 11:07 AM Monie Mohan on K * Because of a physical, mental, or emotional condition, do you have difficulty doing errands alone such as visiting a doctor's office or shopping? Answer Date of Assessment Author Yes 04/20/2016 11:07 AM Monie Mohan on K documented as of this encounter Mental Status * Because of a physical, mental, or emotional condition, do you have serious difficulty concentrating, remembering, or making decisions? Answer Entry Date Author Yes 04/20/2016 11:07 AM Monie Mohan on K documented in this encounter Plan of Treatment Not on file documented as of this encounter Visit Diagnoses Not on filedocumented in this encounter Care Teams Safety Pin Assembling Machine Operator Relationship Specialty Start Date End Date Keila Cadet PA-C PCP - General Family Medicine 04/12/16 David Eubanks DO Referring Neurology 02/11/20 documented as of this encounter
--- OUTSIDE RECORDS SUMMARY | 2025-01-23 12:04 | XMS_ITS | Encounter Summary ---
Author Organization [facility] Address [address] [place] [address] Care Team Providers Care Forest Pathologist Name Role Phone Daron Ratliff MD Primary Care Provider [phone] Jg Garvin DO Primary Care Provider [phone] Keila Cadet PA-C Primary Care Provider David Eubanks DO Unavailable [phone] Source Comments In the event this information is protected by the Federal Confidentiality of Alcohol and Drug AbusePatient Records regulations: The Federal rules restrict any use of the information to criminally investigate or prosecute any alcohol or drug abuse patient.[facility] Encounter Details Date Type Department Care Team (Late st Contact Info) Description 09/13/2008 Patient Msg Medical Records [address] [place] [address] Provider, [facility] Health Information Exchange Social History Tobacco [...] on filedocumented in this encounter Care Teams Forest Pathologist Relationship Specialty Start Date End Date Daron Ratlfif MD PCP - General 12/23/09 04/11/16 Jg Garvin DO [address] [place] [address] PCP - General 07/08/08 12/22/09 Keila Cadet PA-C [address] [place] [address] PCP - General Family Medicine 04/12/16 David Eubanks DO [address] [place] [address] Referring Neurology 02/11/20 documented as of this encounter
--- OUTSIDE RECORDS SUMMARY | 2025-01-23 12:04 | XMS_ITS | Encounter Summary ---
Author Organization [facility] Address [address] [place] [address] Care Team Providers Care Natural Gas Trader Name Role Phone Daron Ratliff MD Primary Care Provider [phone] Keila Cadet PA-C Primary Care Provider David Eubanks DO Unavailable [phone] Source Comments In the event this information is protected by the Federal Confidentiality of Alcohol and Drug AbusePatient Records regulations: The Federal rules restrict any use of the information to criminally investigate or prosecute any alcohol or drug abuse patient.[facility] Encounter Details Date Type Department Care Team (Late st Contact Info) Description 04/17/2010 Patient Msg Medical Records [address] [place] [address] Provider, [facility] Appointment Cancellation Request Social History Tobacco Use Types Packs/Day Years [...] on filedocumented in this encounter Care Teams Natural Gas Trader Relationship Specialty Start Date End Date Daron Ratliff MD PCP - General 12/23/09 04/11/16 Keila Cadet PA-C PCP - General Family Medicine 04/12/16 David Eubanks DO Referring Neurology 02/11/20 documented as of this encounter
--- OUTSIDE RECORDS SUMMARY | 2025-01-23 12:04 | XMS_ITS | Encounter Summary ---
Author Organization [facility] Address [address] [place] [address] Care Team Providers Care Vulcan Crewmember Name Role Phone Keila Cadet PA-C Primary Care Provider David Eubanks DO Unavailable [phone] Source Comments In the event this information is protected by the Federal Confidentiality of Alcohol and Drug AbusePatient Records regulations: The Federal rules restrict any use of the information to criminally investigate or prosecute any alcohol or drug abuse patient.[facility] Encounter Details Date Type Department Care Team (Late st Contact Info) Description 02/15/2018 Patient Msg Pulmonary Medicine [address] [place] [id number] Sg Dave MD RE: Request an Appointment Social History Tobacco [...] on filedocumented in this encounter Care Teams Vulcan Crewmember Relationship Specialty Start Date End Date Keila Cadet PA-C PCP - General Family Medicine 04/12/16 David Eubanks DO Referring Neurology 02/11/20 documented as of this encounter
--- OUTSIDE RECORDS SUMMARY | 2025-01-23 12:04 | XMS_ITS | Encounter Summary ---
Author Organization [facility] Address [address] [place] [address] Care Team Providers Care Liquor Clerk Name Role Phone Keila Cadet PA-C Primary Care Provider David Eubanks DO Unavailable [phone] Source Comments In the event this information is protected by the Federal Confidentiality of Alcohol and Drug AbusePatient Records regulations: The Federal rules restrict any use of the information to criminally investigate or prosecute any alcohol or drug abuse patient.[facility] Encounter Details Date Type Department Care Team (Late st Contact Info) Description 12/20/2019 Patient Msg Pulmonary Medicine [address] [phone] Mukund Renteria MD [address] [place] [address] RE: Request an Appointment Social History Tobacco [...] on filedocumented in this encounter Care Teams Liquor Clerk Relationship Specialty Start Date End Date Keila Cadet PA-C PCP - General Family Medicine 04/12/16 David Eubanks DO Referring Neurology 02/11/20 documented as of this encounter
--- OUTSIDE RECORDS SUMMARY | 2025-01-23 12:04 | XMS_ITS | Encounter Summary ---
Author Organization [facility] Address [address] [place] [address] Care Team Providers Care Hat Forming Machine Feeder Name Role Phone Daron Ratliff MD Primary Care Provider [phone] Jg Garvin DO Primary Care Provider [phone] Keila Cadet PA-C Primary Care Provider David Eubanks DO Unavailable [phone] Source Comments In the event this information is protected by the Federal Confidentiality of Alcohol and Drug AbusePatient Records regulations: The Federal rules restrict any use of the information to criminally investigate or prosecute any alcohol or drug abuse patient.[facility] Encounter Details Date Type Department Care Team (Late st Contact Info) Description 12/02/2009 Patient Msg Medical Records [address] [place] [address] Provider, [facility] RE: Request Preventive Care Procedure Social History Tobacco Use Types Packs/Day [...] on filedocumented in this encounter Care Teams Hat Forming Machine Feeder Relationship Specialty Start Date End Date Daron Ratliff MD PCP - General 12/23/09 04/11/16 Jg Garvin DO [address] [place] [address] PCP - General 07/08/08 12/22/09 Keila Cadet PA-C [address] [place] [address] PCP - General Family Medicine 04/12/16 David Eubanks DO [address] [place] [address] Referring Neurology 02/11/20 documented as of this encounter
--- OUTSIDE RECORDS SUMMARY | 2025-01-23 12:04 | XMS_ITS | Encounter Summary ---
Author Organization [facility] Address [address] [place] [address] Care Team Providers Care Curb Supervisor Name Role Phone Daron Ratliff MD Primary Care Provider [phone] Jg Garvin DO Primary Care Provider [phone] Keila Cadet PA-C Primary Care Provider David Eubanks DO Unavailable [phone] Source Comments In the event this information is protected by the Federal Confidentiality of Alcohol and Drug AbusePatient Records regulations: The Federal rules restrict any use of the information to criminally investigate or prosecute any alcohol or drug abuse patient.[facility] Encounter Details Date Type Department Care Team (Late st Contact Info) Description 09/14/2008 Patient Msg Medical Records [address] [place] [address] Provider, [facility] Health Information Exchange Social History Tobacco [...] on filedocumented in this encounter Care Teams Curb Supervisor Relationship Specialty Start Date End Date Daron Ratliff MD PCP - General 12/23/09 04/11/16 Jg Garvin DO [address] [place] [address] PCP - General 07/08/08 12/22/09 Keila Cadet PA-C [address] [place] [address] PCP - General Family Medicine 04/12/16 David Eubanks DO [address] [place] [address] Referring Neurology 02/11/20 documented as of this encounter
--- OUTSIDE RECORDS SUMMARY | 2025-01-23 12:04 | XMS_ITS | Encounter Summary ---
Author Organization [facility] Address [address] [place] [address] Care Team Providers Care Plastic Cablemaking Machine Operator Name Role Phone Daron Ratliff MD Primary Care Provider [phone] Keila Cadet PA-C Primary Care Provider David Eubanks DO Unavailable Source Comments In the event this information is protected by the Federal Confidentiality of Alcohol and Drug AbusePatient Records regulations: The Federal rules restrict any use of the information to criminally investigate or prosecute any alcohol or drug abuse patient.[facility] Encounter Details Date Type Department Care Team (Late st Contact Info) Description 03/25/2010 Patient Msg Medical Records [address] [place] [address] Provider, [facility]cf RE: Request an Appointment Social [...] on filedocumented in this encounter Care Teams Plastic Cablemaking Machine Operator Relationship Specialty Start Date End Date Daron Ratliff MD PCP - General 12/23/09 04/11/16 Keila Cadet PA-C PCP - General Family Medicine 04/12/16 David Eubanks DO Referring Neurology 02/11/20 documented as of this encounter
--- OUTSIDE RECORDS SUMMARY | 2025-01-23 12:04 | XMS_ITS | Encounter Summary ---
Author Organization [facility] Address [address] [place] [address] Care Team Providers Care Sap Portal Consultant Name Role Phone Keila Cadet PA-C Primary Care Provider David Eubanks DO Unavailable [phone] Source Comments In the event this information is protected by the Federal Confidentiality of Alcohol and Drug AbusePatient Records regulations: The Federal rules restrict any use of the information to criminally investigate or prosecute any alcohol or drug abuse patient.[facility] Encounter Details Date Type Department Care Team (Late st Contact Info) Description 05/24/2019 Patient Msg Radiology [address] [address] Provider, [facility]cf Appointment Cancellation Request Social History [...] on filedocumented in this encounter Care Teams Sap Portal Consultant Relationship Specialty Start Date End Date Keila Cadet PA-C PCP - General Family Medicine 04/12/16 David Eubanks DO Referring Neurology 02/11/20 documented as of this encounter
--- OUTSIDE RECORDS SUMMARY | 2025-01-23 12:04 | XMS_ITS | Encounter Summary ---
Author Organization [facility] Address [address] [place] [address] Care Team Providers Care Functional Manager Name Role Phone Daron Ratliff MD Primary Care Provider [phone] Keila Cadet PA-C Primary Care Provider David Eubanks DO Unavailable [phone] Source Comments In the event this information is protected by the Federal Confidentiality of Alcohol and Drug AbusePatient Records regulations: The Federal rules restrict any use of the information to criminally investigate or prosecute any alcohol or drug abuse patient.[facility] Encounter Details Date Type Department Care Team (Late st Contact Info) Description 03/25/2010 Patient Msg Medical Records [address] [place] [address] Provider, [facility]cf RE: Request Preventive Care Procedure [...] on filedocumented in this encounter Care Teams Functional Manager Relationship Specialty Start Date End Date Daron Ratliff MD PCP - General 12/23/09 04/11/16 Keila Cadet PA-C PCP - General Family Medicine 04/12/16 David Eubanks DO Referring Neurology 02/11/20 documented as of this encounter
--- OUTSIDE RECORDS SUMMARY | 2025-01-23 12:04 | XMS_ITS | Encounter Summary ---
Author Organization [facility] Address [address] [place] [address] Care Team Providers Care Payment Manager Name Role Phone Unallocated, [place] Provider Primary Care Provi marco a Mustapha Barnes DO Unavailable [phone] Irasema Zacarias PROGRAM PROPOSALS COORDINATOR Unavailable [phone] Encounter Details Date Type Department Care Team ([facility] Contact Info) Description 11/15/2022 Abstract WILFREDO DIAZ [address] [facility] [address] [place] [id number] Martin Narayanan MD [address] [facility] [address] [place] [address] Social History Tobacco Use Types Packs/Day Years Used Date Smoking Tobacco: Never Smokeless Tobacco: Never Tobacco Cessation:Counseling Given: Not Answered Alcohol Use Standard Drinks/Week Comments Not Currently [...] on filedocumented in this encounter Care Teams Payment Manager Relationship Specialty Start Date End Date Unallocated, Wilfredo Cook MD [address] [place] [address] PCP - General 11/15/22 06/17/24 Mustapha Barnes DO [address] [place] [address] Referring Physician Neurology 06/18/24 Irasema Zacarias NP [address] [place] [address] [address] Referring Physician Family Medicine 06/18/24 documented as of this encounter
--- OUTSIDE RECORDS SUMMARY | 2025-01-23 12:04 | XMS_ITS | Encounter Summary ---
Author Organization [facility] Address [address] [place] [address] Care Team Providers Care Afloat Cryptologic Manager Name Role Phone Daron Ratliff MD Primary Care Provider [phone] Keila Cadet PA-C Primary Care Provider David Eubanks DO Unavailable [phone] Source Comments In the event this information is protected by the Federal Confidentiality of Alcohol and Drug AbusePatient Records regulations: The Federal rules restrict any use of the information to criminally investigate or prosecute any alcohol or drug abuse patient.[facility] Encounter Details Date Type Department Care Team (Late st Contact Info) Description 03/19/2010 Patient Msg Medical Records [address] [place] [address] Provider, [facility] Health Information Exchange Social History Tobacco [...] on filedocumented in this encounter Care Teams Afloat Cryptologic Manager Relationship Specialty Start Date End Date Daron Ratliff MD PCP - General 12/23/09 04/11/16 Keila Cadet PA-C PCP - General Family Medicine 04/12/16 David Eubanks DO Referring Neurology 02/11/20 documented as of this encounter
--- OUTSIDE RECORDS SUMMARY | 2025-01-23 12:04 | XMS_ITS | Encounter Summary ---
Author Organization [facility] Address [address] [place] [address] Care Team Providers Care Junior Qa Analyst Name Role Phone Keila Cadet PA-C Primary Care Provider David Eubanks DO Unavailable [phone] Source Comments In the event this information is protected by the Federal Confidentiality of Alcohol and Drug AbusePatient Records regulations: The Federal rules restrict any use of the information to criminally investigate or prosecute any alcohol or drug abuse patient.[facility] Encounter Details Date Type Department Care Team (Late st Contact Info) Description 05/23/2019 Patient Msg Pulmonary Medicine [address] [phone] 2, [facility] [address] [address] RE: Appointment Cancellation Request Social History Tobacco Use [...] on filedocumented in this encounter Care Teams Junior Qa Analyst Relationship Specialty Start Date End Date Keila Cadet PA-C PCP - General Family Medicine 04/12/16 David Eubanks DO Referring Neurology 02/11/20 documented as of this encounter
--- OUTSIDE RECORDS SUMMARY | 2025-01-23 12:04 | XMS_ITS | Encounter Summary ---
Author Organization [facility] Address [address] [place] [address] Care Team Providers Care Program Coordinator Name Role Phone Keila Cadet PA-C Primary Care Provider David Eubanks DO Unavailable [phone] Source Comments In the event this information is protected by the Federal Confidentiality of Alcohol and Drug AbusePatient Records regulations: The Federal rules restrict any use of the information to criminally investigate or prosecute any alcohol or drug abuse patient.[facility] Encounter Details Date Type Department Care Team (Late st Contact Info) Description 06/28/2024 Get Medical Advice Endocrinology [address] [place] [address] Edmundo Devlin MD [address] [facility] [place] [address] El 5mg Social History Tobacco Use Types Packs/Day Years [...] N ot on file 2020 Data from: https://www.neighborhoodatlas.medicine.[facility]/. Last address used for calculation Not on [...] on filedocumented in this encounter Care Teams Program Coordinator Relationship Specialty Start Date End Date Keila Cadet PA-C PCP - General Family Medicine 04/12/16 David Eubanks DO Referring Neurology 02/11/20 documented as of this encounter
--- OUTSIDE RECORDS SUMMARY | 2025-01-23 12:04 | XMS_ITS | Encounter Summary ---
Author Organization [facility] Address [address] [place] [address] Care Team Providers Care Package Crimper Name Role Phone Daron Ratliff MD Primary Care Provider [phone] Jg Garvin DO Primary Care Provider [phone] Keila Cadet PA-C Primary Care Provider David Eubanks DO Unavailable [phone] Source Comments In the event this information is protected by the Federal Confidentiality of Alcohol and Drug AbusePatient Records regulations: The Federal rules restrict any use of the information to criminally investigate or prosecute any alcohol or drug abuse patient.[facility] Encounter Details Date Type Department Care Team (Late st Contact Info) Description 12/02/2009 Patient Msg Medical Records [address] [place] [address] Provider, [facility] Health Information Exchange Social History [...] filedocumented in this encounter Care Teams Package Crimper Relationship Specialty Start Date End Date Daron Ratliff MD PCP - General 12/23/09 04/11/16 Jg Garvin DO [address] [place] [address] PCP - General 07/08/08 12/22/09 Keila Cadet PA-C [address] [place] [address] PCP - General Family Medicine 04/12/16 David Eubanks DO [address] [place] [address] Referring Neurology 02/11/20 documented as of this encounter
--- OUTSIDE RECORDS SUMMARY | 2025-01-23 12:04 | XMS_ITS | Encounter Summary ---
Author Organization [facility] Address [address] [place] [address] Care Team Providers Care Seo Team Lead Name Role Phone Keila Cadet PA-C Primary Care Provider David Eubanks DO Unavailable [phone] Source Comments In the event this information is protected by the Federal Confidentiality of Alcohol and Drug AbusePatient Records regulations: The Federal rules restrict any use of the information to criminally investigate or prosecute any alcohol or drug abuse patient.[facility] Encounter Details Date Type Department Care Team (Late st Contact Info) Description 05/25/2019 Patient Msg Angio [address] [place] [address] Provider, Ccf CT Social History Tobacco Use Types Packs/Day Years [...] on filedocumented in this encounter Care Teams Seo Team Lead Relationship Specialty Start Date End Date Keila Cadet PA-C PCP - General Family Medicine 04/12/16 David Eubanks DO Referring Neurology 02/11/20 documented as of this encounter
--- OUTSIDE RECORDS SUMMARY | 2025-01-23 12:04 | XMS_ITS | Encounter Summary ---
Author Organization [facility] Address [facility] [place] [address] Care Team Providers Care Marketing And Promotions Manager Name Role Phone Keila Cadet PA-C Primary Care Provider David Eubanks DO Unavailable [phone] Source Comments In the event this information is protected by the Federal Confidentiality of Alcohol and Drug AbusePatient Records regulations: The Federal rules restrict any use of the information to criminally investigate or prosecute any alcohol or drug abuse patient.[facility] Encounter Details Date Type Department Care Team (Late st Contact Info) Description 07/25/2019 Patient Msg Pulmonary Medicine [address] [phone] Mukund Renteria MD [address] [place] [address] lab results Social History Tobacco Use Types Packs/Day Years [...] on filedocumented in this encounter Care Teams Marketing And Promotions Manager Relationship Specialty Start Date End Date Keila Cadet PA-C PCP - General Family Medicine 04/12/16 David Eubanks DO Referring Neurology 02/11/20 documented as of this encounter
--- OUTSIDE RECORDS SUMMARY | 2025-01-23 12:04 | XMS_ITS | Encounter Summary ---
Author Organization [facility] Address [address] [place] [address] Care Team Providers Care Production Miner Name Role Phone Keila Cadet PA-C Primary Care Provider David Eubanks DO Unavailable [phone] Source Comments In the event this information is protected by the Federal Confidentiality of Alcohol and Drug AbusePatient Records regulations: The Federal rules restrict any use of the information to criminally investigate or prosecute any alcohol or drug abuse patient.[facility] Encounter Details Date Type Department Care Team (Late st Contact Info) Description 10/18/2023 Patient Msg General Surgery [address] [place] [address] Provider, Ccf upcoming appointment Social History Tobacco Use Types Packs/Day Years [...] N ot on file 2020 Data from: https://www.neighborhoodatlas.medicine.[facility]/. Last address used for calculation Not [...] filedocumented in this encounter Care Teams Production Miner Relationship Specialty Start Date End Date Keila Cadet PA-C PCP - General Family Medicine 04/12/16 David Eubanks DO Referring Neurology 02/11/20 documented as of this encounter
--- OUTSIDE RECORDS SUMMARY | 2025-01-23 12:04 | XMS_ITS | Encounter Summary ---
Author Organization [facility] Address [address] [place] [address] Care Team Providers Care Ndt Inspector Name Role Phone Keila Cadet PA-C Primary Care Provider David Eubanks DO Unavailable [phone] Source Comments In the event this information is protected by the Federal Confidentiality of Alcohol and Drug AbusePatient Records regulations: The Federal rules restrict any use of the information to criminally investigate or prosecute any alcohol or drug abuse patient.[facility] Encounter Details Date Type Department Care Team (Late st Contact Info) Description 11/25/2022 Patient Msg Endocrinology & Metabolic [place] [address] [place] [address] Provider, [facility] Appointment Scheduled Social History Tobacco Use Types Packs/Day Years [...] ot on file 2020 Data from: https://www.neighborhoodatlas.medicine.[facility]/. Last address used for calculation Not on [...] on filedocumented in this encounter Care Teams Ndt Inspector Relationship Specialty Start Date End Date Keila Cadet PA-C PCP - General Family Medicine 04/12/16 David Eubanks DO Referring Neurology 02/11/20 documented as of this encounter
--- OUTSIDE RECORDS SUMMARY | 2025-01-23 12:04 | XMS_ITS | Encounter Summary ---
Author Organization [facility] Address [address] [place] [address] Care Team Providers Care Internet Sales Consultant Name Role Phone Keila Cadet PA-C Primary Care Provider David Eubanks DO Unavailable [phone] Source Comments In the event this information is protected by the Federal Confidentiality of Alcohol and Drug AbusePatient Records regulations: The Federal rules restrict any use of the information to criminally investigate or prosecute any alcohol or drug abuse patient.[facility] Encounter Details Date Type Department Care Team (Late st Contact Info) Description 06/25/[address] [facility] [place] [address] Yoko Leal RPh At your next appointment, choose [facility]. Social History Tobacco Use Types Packs/Day Years [...] N ot on file 2020 Data from: https://www.neighborhoodatlas.medicine.[facility].edu/. Last address used for calculation Not [...] on filedocumented in this encounter Care Teams Internet Sales Consultant Relationship Specialty Start Date End Date Keila Cadet PA-C PCP - General Family Medicine 04/12/16 David Eubanks DO Referring Neurology 02/11/20 documented as of this encounter
--- OUTSIDE RECORDS SUMMARY | 2025-01-23 12:04 | XMS_ITS | Encounter Summary ---
Author Organization [facility] Address [address] [place] [address] Care Team Providers Care Installer Apprentice Name Role Phone Keila Cadet PA-C Primary Care Provider David Eubanks DO Unavailable [phone] Source Comments In the event this information is protected by the Federal Confidentiality of Alcohol and Drug AbusePatient Records regulations: The Federal rules restrict any use of the information to criminally investigate or prosecute any alcohol or drug abuse patient.[facility] Encounter Details Date Type Department Care Team (Late st Contact Info) Description 08/26/2019 Get Medical Advice Pain Management [address] [place], [place] [id number] Herson Dominguez MD [address] [place], [place] [id number] RE: Non-Urgent Medical Question Social History Tobacco Use Types Packs/Day Years [...] on filedocumented in this encounter Care Teams Installer Apprentice Relationship Specialty Start Date End Date Keila Cadet PA-C PCP - General Family Medicine 04/12/16 David Eubanks DO Referring Neurology 02/11/20 documented as of this encounter
--- OUTSIDE RECORDS SUMMARY | 2025-01-23 12:04 | XMS_ITS | Encounter Summary ---
Author Organization [facility] Address [address] [place] [address] Care Team Providers Care Assistant Grocery Name Role Phone Keila Cadet PA-C Primary Care Provider David Eubanks DO Unavailable [phone] Source Comments In the event this information is protected by the Federal Confidentiality of Alcohol and Drug AbusePatient Records regulations: The Federal rules restrict any use of the information to criminally investigate or prosecute any alcohol or drug abuse patient.[facility] Encounter Details Date Type Department Care Team (Late st Contact Info) Description 06/23/2023 Patient [facility] [address] [place] [address] Yoko Leal RPh At your next appointment, choose [facility] Social History Tobacco Use Types Packs/Day Years [...] N ot on file 2020 Data from: https://www.neighborhoodatlas.medicine.[facility]/. Last address used for calculation [...] filedocumented in this encounter Care Teams Assistant Grocery Relationship Specialty Start Date End Date Keila Cadet PA-C PCP - General Family Medicine 04/12/16 David Eubanks DO Referring Neurology 02/11/20 documented as of this encounter
--- OUTSIDE RECORDS SUMMARY | 2025-01-23 12:04 | XMS_ITS | Encounter Summary ---
Author Organization [facility] Address [address] [place] [address] Care Team Providers Care Back Winder Name Role Phone Daron Ratliff MD Primary Care Provider [phone] Keila Cadet PA-C Primary Care Provider David Eubanks DO Unavailable [phone] Source Comments In the event this information is protected by the Federal Confidentiality of Alcohol and Drug AbusePatient Records regulations: The Federal rules restrict any use of the information to criminally investigate or prosecute any alcohol or drug abuse patient.[facility] Encounter Details Date Type Department Care Team (Late st Contact Info) Description 02/17/2010 Radiology Orthopaedics [address] [place] [address] Scott Hicks V, DPM [address] [facility] [place], [place] [id number] Social History Tobacco Use Types Packs/Day Years [...] Procedure Name Priority Date/Time Associated Diagnosis Comments XR FOOT 3VIEW/WT BEARING RT Routine 02/17/2010 12:08 PM EDT Pain in joint, ankle and foot XR ANKLE AP/LAT/OBL/WT BEAR RT Routine 02/17/2010 12:08 PM EDT Pain in joint, ankle and foot documented in this encounter Results * XR ANKLE AP/LAT/OBL/WT BEAR RT (02/17/2010 12:08 PM EDT) Training And Documentation Specialist * * *Final Report* * * DATE OF EXAM: Feb 17 2010 12:08PM CHX [id number] - XR ANKLE AP/LAT/OBL - RIGHT / PROCEDURE REASON: PAIN IN JOINT, ANKLE AND FOOT * * * * Physician Interpretation * * * * RESULT: TECHNIQUE: Right foot, 3 views and Right ankle, 2 views HISTORY: Pain for two months. History of previous fracture. RESULTS: No comparison. There are some small ossific densities projecting along posterior aspect of right posterior malleolus. The appearance suggests remote trauma rather than acute avulsed fracture fragments. A donor site is not observed. Otherwise, there is no evidence of acute fracture or dislocation. Ankle mortise is maintained. No significant degenerative changes are noted. IMPRESSION: Small ossific densities posterior to right posterior malleolus suggestive of remote trauma. Electric Sign Wirer: [facility] Transcribe Date/Time: Feb 17 2010 1:03P Dictated by : JONI COE MD This examination was interpreted and the report reviewed and electronically signed by: JONI COE MD On Feb 17 2010 1:03PM DIVISION OF RADIOLOGY Anatomical Region Laterality Modality Other 02/17/2010 12:0 8 PM EDT Scott Hoang DPM RADIOLOGY Final Result * XR FOOT 3VIEW/WT BEARING RT (02/17/2010 12:08 PM EDT) Training And Documentation Specialist * * *Final Report* * * DATE OF EXAM: Feb 17 2010 12:08PM CHX [id number] - XR FOOT AP/LAT/OBL - RIGHT / PROCEDURE REASON: PAIN IN JOINT, ANKLE AND FOOT * * * * Physician Interpretation * * * * RESULT: TECHNIQUE: Right foot, 3 views and Right ankle, 2 views HISTORY: Pain for two months. History of previous fracture. RESULTS: No comparison. There are some small ossific densities projecting along posterior aspect of right posterior malleolus. The appearance suggests remote trauma rather than acute avulsed fracture fragments. A donor site is not observed. Otherwise, there is no evidence of acute fracture or dislocation. Ankle mortise is maintained. No significant degenerative changes are noted. IMPRESSION: Small ossific densities posterior to right posterior malleolus suggestive of remote trauma. Electric Sign Wirer: [facility] Transcribe Date/Time: Feb 17 2010 1:03P Dictated by : JONI COE MD This examination was interpreted and the report reviewed and electronically signed by: JONI COE MD On Feb 17 2010 1:03PM DIVISION OF RADIOLOGY Anatomical Region Laterality Modality Other 02/17/2010 12:0 8 PM EDT Scott Hoang DPM RADIOLOGY Final Result documented in this encounter Visit Diagnoses Diagnosis Pain in joint, ankle and foot- Primary documented in this encounter Care Teams Back Winder Relationship Specialty Start Date End Date Daron Ratliff MD PCP - General 12/23/09 04/11/16 Keila Cadet PA-C PCP - General Family Medicine 04/12/16 David Eubanks DO Referring Neurology 02/11/20 documented as of this encounter
--- OUTSIDE RECORDS SUMMARY | 2025-01-23 12:04 | XMS_ITS | Encounter Summary ---
Author Organization [facility] Address [address] [place] [address] Care Team Providers Care Agricultural Extension Educator Name Role Phone Keila Cadet PA-C Primary Care Provider David Eubanks DO Unavailable [phone] Source Comments In the event this information is protected by the Federal Confidentiality of Alcohol and Drug AbusePatient Records regulations: The Federal rules restrict any use of the information to criminally investigate or prosecute any alcohol or drug abuse patient.[facility] Encounter Details Date Type Department Care Team (Late st Contact Info) Description 05/23/2019 Patient Msg Pulmonary Medicine [address] [id number] 2, Pulm Fct Lab [address] [address] Appointment Cancellation Request Social History Tobacco Use [...] on filedocumented in this encounter Care Teams Agricultural Extension Educator Relationship Specialty Start Date End Date Keila Cadet PA-C PCP - General Family Medicine 04/12/16 David Eubanks DO Referring Neurology 02/11/20 documented as of this encounter
--- OUTSIDE RECORDS SUMMARY | 2025-01-23 12:04 | XMS_ITS | Encounter Summary ---
Author Organization [facility] Address [address] [place] [address] Care Team Providers Care Heavy Duty Custodian Name Role Phone Keila Cadet PA-C Primary Care Provider David Eubanks DO Unavailable [phone] Source Comments In the event this information is protected by the Federal Confidentiality of Alcohol and Drug AbusePatient Records regulations: The Federal rules restrict any use of the information to criminally investigate or prosecute any alcohol or drug abuse patient.[facility] Encounter Details Date Type Department Care Team (Late st Contact Info) Description 09/03/2024 Patient Msg General Surgery [address] [place] [address] Provider, [facility] Candidacy pending medical records Social History Tobacco Use Types Packs/Day Years [...] N ot on file 2020 Data from: https://www.neighborhoodatlas.medicine.[facility]/. Last address used for calculation Not on [...] on filedocumented in this encounter Care Teams Heavy Duty Custodian Relationship Specialty Start Date End Date Keila Cadet PA-C PCP - General Family Medicine 04/12/16 David Eubanks DO Referring Neurology 02/11/20 documented as of this encounter
--- OUTSIDE RECORDS SUMMARY | 2025-01-23 12:04 | XMS_ITS | Encounter Summary ---
Author Organization [facility] Address [address] [place] [address] Care Team Providers Care Business Analyst Manager Name Role Phone Keila Cadet PA-C Primary Care Provider David Eubanks DO Unavailable [phone] Source Comments In the event this information is protected by the Federal Confidentiality of Alcohol and Drug AbusePatient Records regulations: The Federal rules restrict any use of the information to criminally investigate or prosecute any alcohol or drug abuse patient.[facility] Encounter Details Date Type Department Care Team (Late st Contact Info) Description 10/15/2024 Patient Msg Endocrinology & Metabolic [place] [address] [place] [address] Provider, [facility] Medication Refill Social History Tobacco Use Types Packs/Day Years [...] N ot on file 2020 Data from: https://www.neighborhoodatlas.medicine.[facility]/. Last address used for calculation Not [...] on filedocumented in this encounter Care Teams Business Analyst Manager Relationship Specialty Start Date End Date Keila Cadet PA-C PCP - General Family Medicine 04/12/16 David Eubanks DO Referring Neurology 02/11/20 documented as of this encounter
--- OUTSIDE RECORDS SUMMARY | 2025-01-23 12:04 | XMS_ITS | Encounter Summary ---
Author Organization [facility] Address [address] [place] [address] Care Team Providers Care Spinning Bath Patroller Name Role Phone Keila Cadet PA-C Primary Care Provider David Eubanks DO Unavailable [phone] Source Comments In the event this information is protected by the Federal Confidentiality of Alcohol and Drug AbusePatient Records regulations: The Federal rules restrict any use of the information to criminally investigate or prosecute any alcohol or drug abuse patient.[facility] Encounter Details Date Type Department Care Team (Late st Contact Info) Description 05/22/2019 Patient Msg Pulmonary Medicine [address] [id number] 2, Pulm Fct Lab [address] [address] RE: Appointment Cancellation Request Social [...] on filedocumented in this encounter Care Teams Spinning Bath Patroller Relationship Specialty Start Date End Date Keila Cadet PA-C PCP - General Family Medicine 04/12/16 David Eubanks DO Referring Neurology 02/11/20 documented as of this encounter
--- OUTSIDE RECORDS SUMMARY | 2025-01-23 12:04 | XMS_ITS | Encounter Summary ---
Author Organization [facility] Address [address] [place] [address] Care Team Providers Care Purchasing Officer Name Role Phone Keila Cadet PA-C Primary Care Provider David Eubanks DO Unavailable [phone] Source Comments In the event this information is protected by the Federal Confidentiality of Alcohol and Drug AbusePatient Records regulations: The Federal rules restrict any use of the information to criminally investigate or prosecute any alcohol or drug abuse patient.[facility] Encounter Details Date Type Department Care Team (Late st Contact Info) Description 10/25/2023 Patient Msg General Surgery [address] [place] [address] Provider, [facility] Upcoming appointment Social History Tobacco Use Types Packs/Day [...] ot on file 2020 Data from: https://www.neighborhoodatlas.medicine.[facility]/. Last address used for calculation Not [...] on filedocumented in this encounter Care Teams Purchasing Officer Relationship Specialty Start Date End Date Keila Cadet PA-C PCP - General Family Medicine 04/12/16 David Eubanks DO Referring Neurology 02/11/20 documented as of this encounter
--- OUTSIDE RECORDS SUMMARY | 2025-01-23 12:04 | XMS_ITS | Encounter Summary ---
Author Organization [facility] Address [address] [place] [address] Care Team Providers Care Home Inspector Name Role Phone Daron Ratliff MD Primary Care Provider [phone] Jg Garvin DO Primary Care Provider [phone] Keila Cadet PA-C Primary Care Provider David Eubanks DO Unavailable [phone] Source Comments In the event this information is protected by the Federal Confidentiality of Alcohol and Drug AbusePatient Records regulations: The Federal rules restrict any use of the information to criminally investigate or prosecute any alcohol or drug abuse patient.[facility] Encounter Details Date Type Department Care Team (Late st Contact Info) Description 09/12/2008 Patient Msg Medical Records [address] [place] [address] Provider, [facility] Health Information Exchange Social History Tobacco [...] on filedocumented in this encounter Care Teams Home Inspector Relationship Specialty Start Date End Date Daron Ratliff MD PCP - General 12/23/09 04/11/16 Jg Garvin DO [address] [place] [address] PCP - General 07/08/08 12/22/09 Keila Cadet PA-C [address] [place] [address] PCP - General Family Medicine 04/12/16 David Eubanks DO [address] [place] [address] Referring Neurology 02/11/20 documented as of this encounter
--- OUTSIDE RECORDS SUMMARY | 2025-01-23 12:04 | XMS_ITS | Encounter Summary ---
Author Organization [facility] Address [address] [place] [address] Care Team Providers Care Sports Reporter Name Role Phone Daron Ratliff MD Primary Care Provider Keila Cadet PA-C Primary Care Provider David Eubanks DO Unavailable [phone] Source Comments In the event this information is protected by the Federal Confidentiality of Alcohol and Drug AbusePatient Records regulations: The Federal rules restrict any use of the information to criminally investigate or prosecute any alcohol or drug abuse patient.[facility] Encounter Details Date Type Department Care Team (Late st Contact Info) Description 12/24/2009 Patient Msg Medical Records [address] [place] [address] Provider, [facility] Health Information Exchange Social History [...] on filedocumented in this encounter Care Teams Sports Reporter Relationship Specialty Start Date End Date Daron Ratliff MD PCP - General 12/23/09 04/11/16 Keila Cadet PA-C PCP - General Family Medicine 04/12/16 David Eubanks DO Referring Neurology 02/11/20 documented as of this encounter
--- OUTSIDE RECORDS SUMMARY | 2025-01-23 12:04 | XMS_ITS | Encounter Summary ---
Author Organization [facility] Address [address] [place] [address] Care Team Providers Care Tech Ed/Woodshop Teacher Name Role Phone Keila Cadet PA-C Primary Care Provider David Eubanks DO Unavailable [phone] Source Comments In the event this information is protected by the Federal Confidentiality of Alcohol and Drug AbusePatient Records regulations: The Federal rules restrict any use of the information to criminally investigate or prosecute any alcohol or drug abuse patient.[facility] Reason for Visit * Reason Comments Insurance Authorization tirzepatide (OLY NJARO) 5 mg/0.5 mL pen injector Encounter Details Date Type Department Care Team ([facility] st Contact Info) Description 06/28/2024 Telephone Endocrinology [address] [place] [address] [facility] [place] [address] Insurance Authorization (tirzepatide (MOUNJARO) 5 mg/0.5 mL pen injector) Social History Tobacco Use Types Packs/Day Years [...] N ot on file 2020 Data from: https://www.neighborhoodatlas.medicine.[facility].edu/. Last address used for calculation Not [...] Author Yes 04/20/2016 11:07 AM Monie Mohan K documented as of this encounter Mental Status * Because of a physical, mental, or emotional condition, do you have serious difficulty concentrating, remembering, or making decisions? Answer Entry Date Author Yes 04/20/2016 11:07 AM EST Monie Blackburn on K documented in this encounter Miscellaneous Notes * Telephone Encounter - Sosa Lopez - 06/28/2024 12:13 PM EST Patient called to inquire about PA for Mounjaro 5mg. She wants to make sure that it is being submitted with the Dx of Type 2 Diabetes, as well as being submitted under her new insurance, [employer]. Patient states that the recent PA was submitted for the 2.5mg dose, which she is no longer taking. Please advise, thank you! Sosa Lopez Marbleizing Machine Tender II Endocrinology & Metabolism [place] [facility] X-20, F-20 documented in this encounter Plan of Treatment Not on file documented as of this encounter Visit Diagnoses Not on filedocumented in this encounter Care Teams Tech Ed/Woodshop Teacher Relationship Specialty Start Date End Date Keila Cadet PA-C PCP - General Family Medicine 04/12/16 David Eubanks DO Referring Neurology 02/11/20 documented as of this encounter
--- OUTSIDE RECORDS SUMMARY | 2025-01-23 12:04 | XMS_ITS | Encounter Summary ---
Author Organization [facility] Address [address] [place] [address] Care Team Providers Care Long Term Care Administrator Name Role Phone Keila Cadet PA-C Primary Care Provider David Eubanks DO Unavailable [phone] Source Comments In the event this information is protected by the Federal Confidentiality of Alcohol and Drug AbusePatient Records regulations: The Federal rules restrict any use of the information to criminally investigate or prosecute any alcohol or drug abuse patient.[facility] Encounter Details Date Type Department Care Team (Late st Contact Info) Description 09/23/2022 Get Medical Advice Endocrinology [address] [place] [address] Kimberly Velazquez MD [address] [place] [address] Not losing weight Social History Tobacco Use Types Packs/Day Years [...] N ot on file 2020 Data from: https://www.neighborhoodatlas.medicine.[facility]/. Last address used for calculation Not on [...] on filedocumented in this encounter Care Teams Long Term Care Administrator Relationship Specialty Start Date End Date Helio, Keila William, PA-C PCP - General Family Medicine 04/12/16 David Eubanks DO Referring Neurology 02/11/20 documented as of this encounter
--- OUTSIDE RECORDS SUMMARY | 2025-01-23 12:04 | XMS_ITS | Encounter Summary ---
Author Organization [facility] Address [address] [place] [address] Care Team Providers Care Military Pay Clerk Name Role Phone Keila Cadet PA-C Primary Care Provider David Eubanks DO Unavailable [phone] Source Comments In the event this information is protected by the Federal Confidentiality of Alcohol and Drug AbusePatient Records regulations: The Federal rules restrict any use of the information to criminally investigate or prosecute any alcohol or drug abuse patient.[facility] Encounter Details Date Type Department Care Team (Late st Contact Info) Description 06/04/2019 Patient Msg Pain Management [address] [place], [place] [id number] Herson Dominguez MD [address] [place], [place] [id number] RE: Request an Appointment Social History Tobacco [...] on filedocumented in this encounter Care Teams Military Pay Clerk Relationship Specialty Start Date End Date Keila Cadet PA-C PCP - General Family Medicine 04/12/16 David Eubanks DO Referring Neurology 02/11/20 documented as of this encounter
--- OUTSIDE RECORDS SUMMARY | 2025-01-23 12:04 | XMS_ITS | Encounter Summary ---
Author Organization [facility] Address [address] [place] [address] Care Team Providers Care Settlement Processor Name Role Phone Daron Ratliff MD Primary Care Provider Keila Cadet PA-C Primary Care Provider David Eubanks DO Unavailable [phone] Source Comments In the event this information is protected by the Federal Confidentiality of Alcohol and Drug AbusePatient Records regulations: The Federal rules restrict any use of the information to criminally investigate or prosecute any alcohol or drug abuse patient.[facility] Encounter Details Date Type Department Care Team (Late st Contact Info) Description 12/25/2009 Patient Msg Medical Records [address] [place] [address] Provider, [facility] Health Information Exchange Social History Tobacco Use [...] on filedocumented in this encounter Care Teams Settlement Processor Relationship Specialty Start Date End Date Daron Ratliff MD PCP - General 12/23/09 04/11/16 Keila Cadet PA-C PCP - General Family Medicine 04/12/16 David Eubanks DO Referring Neurology 02/11/20 documented as of this encounter
--- OUTSIDE RECORDS SUMMARY | 2025-01-23 12:04 | XMS_ITS | Encounter Summary ---
Author Organization [facility] Address [address] [place] [address] Care Team Providers Care Car Pilot Name Role Phone Daron Ratliff MD Primary Care Provider [phone] Jg Garvin DO Primary Care Provider [phone] Keila Cadet PA-C Primary Care Provider David Eubanks DO Unavailable [phone] Source Comments In the event this information is protected by the Federal Confidentiality of Alcohol and Drug AbusePatient Records regulations: The Federal rules restrict any use of the information to criminally investigate or prosecute any alcohol or drug abuse patient.[facility] Encounter Details Date Type Department Care Team (Late st Contact Info) Description 08/01/2009 Patient Msg Medical Records [address] [place] [address] Provider, [facility] Health Information Exchange Social History [...] on filedocumented in this encounter Care Teams Car Pilot Relationship Specialty Start Date End Date Daron Ratliff MD PCP - General 12/23/09 04/11/16 Jg Garvin DO [address] [place] [address] PCP - General 07/08/08 12/22/09 Keila Cadet PA-C [address] [place] [address] PCP - General Family Medicine 04/12/16 David Eubanks DO [address] [place] [address] Referring Neurology 02/11/20 documented as of this encounter
--- OUTSIDE RECORDS SUMMARY | 2025-01-23 12:04 | XMS_ITS | Encounter Summary ---
Author Organization [facility] Address [address] [place] [address] Care Team Providers Care Otr Owner Operator Truck Driver Name Role Phone Keila Cadet PA-C Primary Care Provider David Eubanks DO Unavailable [phone] Source Comments In the event this information is protected by the Federal Confidentiality of Alcohol and Drug AbusePatient Records regulations: The Federal rules restrict any use of the information to criminally investigate or prosecute any alcohol or drug abuse patient.[facility] Encounter Details Date Type Department Care Team (Late st Contact Info) Description 11/24/2022 Get Medical Advice Endocrinology [address] [place] [address] Kimberly Velazquez MD [address] [place] [address] El Social History Tobacco Use Types Packs/Day Years [...] N ot on file 2020 Data from: https://www.neighborhoodatlas.medicine.[facility]/. Last address used for calculation Not [...] on filedocumented in this encounter Care Teams Otr Owner Operator Truck Driver Relationship Specialty Start Date End Date Keila Cadet PA-C PCP - General Family Medicine 04/12/16 David Eubanks DO Referring Neurology 02/11/20 documented as of this encounter
--- OUTSIDE RECORDS SUMMARY | 2025-01-23 12:05 | XMS_ITS | Encounter Summary ---
Author Organization [facility] Address [address] [place] [address] Care Team Providers Care Corporate Development Manager Name Role Phone Keila Cadet PA-C Primary Care Provider David Eubanks DO Unavailable [phone] Source Comments In the event this information is protected by the Federal Confidentiality of Alcohol and Drug AbusePatient Records regulations: The Federal rules restrict any use of the information to criminally investigate or prosecute any alcohol or drug abuse patient.[facility] Encounter Details Date Type Department Care Team (Late st Contact Info) Description 01/31/2019 Patient Msg Neurology [address] [id number] Provider, [facility] Home sleep study Social History Tobacco Use Types Packs/Day Years [...] on filedocumented in this encounter Care Teams Corporate Development Manager Relationship Specialty Start Date End Date Keila Cadet PA-C PCP - General Family Medicine 04/12/16 David Eubanks DO Referring Neurology 02/11/20 documented as of this encounter
--- OUTSIDE RECORDS SUMMARY | 2025-01-23 12:05 | XMS_ITS | Encounter Summary ---
Author Organization [facility] Address [address] [place] [address] Care Team Providers Care Sales Special Agent Name Role Phone Daron Ratliff MD Primary Care Provider [phone] Keila Cadet PA-C Primary Care Provider David Eubanks DO Unavailable Source Comments In the event this information is protected by the Federal Confidentiality of Alcohol and Drug AbusePatient Records regulations: The Federal rules restrict any use of the information to criminally investigate or prosecute any alcohol or drug abuse patient.[facility] Encounter Details Date Type Department Care Team (Late st Contact Info) Description 05/19/2010 Patient Msg Medical Records [address] [place] [address] Provider, [facility] Health Information Exchange Social History [...] on filedocumented in this encounter Care Teams Sales Special Agent Relationship Specialty Start Date End Date Daron Ratliff MD PCP - General 12/23/09 04/11/16 Keila Cadet PA-C PCP - General Family Medicine 04/12/16 Daivd Eubanks DO Referring Neurology 02/11/20 documented as of this encounter
--- OUTSIDE RECORDS SUMMARY | 2025-01-23 12:05 | XMS_ITS | Encounter Summary ---
Author Organization [facility] Address [address] [place] [address] Care Team Providers Care City Route Driver Name Role Phone Daron Ratliff MD Primary Care Provider [phone] Jg Garvin DO Primary Care Provider [phone] Keila Cadet PA-C Primary Care Provider David Eubanks DO Unavailable [phone] Source Comments In the event this information is protected by the Federal Confidentiality of Alcohol and Drug AbusePatient Records regulations: The Federal rules restrict any use of the information to criminally investigate or prosecute any alcohol or drug abuse patient.[facility] Encounter Details Date Type Department Care Team (Late st Contact Info) Description 07/08/2008 Patient Msg Medical Records [address] [place] [address] Provider, Ccf RE: Patient Registration Completed Social History Tobacco Use Types Packs/Day Years [...] on filedocumented in this encounter Care Teams City Route Driver Relationship Specialty Start Date End Date Daron Ratliff MD PCP - General 12/23/09 04/11/16 Jg Garvin DO [address] [place] [address] PCP - General 07/08/08 12/22/09 Keila Cadet PA-C [address] [place] [address] PCP - General Family Medicine 04/12/16 David Eubanks DO [address] [place] [address] Referring Neurology 02/11/20 documented as of this encounter
--- OUTSIDE RECORDS SUMMARY | 2025-01-23 12:05 | XMS_ITS | Encounter Summary ---
Author Organization [facility] Address [address] [place] [address] Care Team Providers Care Ice Cream Maker Name Role Phone Daron Ratliff MD Primary Care Provider [phone] Keila Cadet PA-C Primary Care Provider David Eubanks DO Unavailable [phone] Source Comments In the event this information is protected by the Federal Confidentiality of Alcohol and Drug AbusePatient Records regulations: The Federal rules restrict any use of the information to criminally investigate or prosecute any alcohol or drug abuse patient.[facility] Encounter Details Date Type Department Care Team (Late st Contact Info) Description 12/03/2010 Patient Msg Medical Records [address] [place] [address] Provider, Ccf RE: Request an Appointment Social [...] on filedocumented in this encounter Care Teams Ice Cream Maker Relationship Specialty Start Date End Date Daron Ratliff MD PCP - General 12/23/09 04/11/16 Keila Cadet PA-C PCP - General Family Medicine 04/12/16 David Eubanks DO Referring Neurology 02/11/20 documented as of this encounter
--- OUTSIDE RECORDS SUMMARY | 2025-01-23 12:05 | XMS_ITS | Encounter Summary ---
Author Organization [facility] Address [address] [place] [address] Care Team Providers Care Laminator Preforms Name Role Phone Daron Ratliff MD Primary Care Provider [phone] Keila Cadet PA-C Primary Care Provider David Eubanks DO Unavailable [phone] Source Comments In the event this information is protected by the Federal Confidentiality of Alcohol and Drug AbusePatient Records regulations: The Federal rules restrict any use of the information to criminally investigate or prosecute any alcohol or drug abuse patient.[facility] Encounter Details Date Type Department Care Team (Late st Contact Info) Description 04/17/2010 Patient Msg Medical Records [address] [place] [address] Provider, [facility]c Health Information Exchange Social History [...] on filedocumented in this encounter Care Teams Laminator Preforms Relationship Specialty Start Date End Date Daron Ratliff MD PCP - General 12/23/09 04/11/16 Keila Cadet PA-C PCP - General Family Medicine 04/12/16 David Eubanks DO Referring Neurology 02/11/20 documented as of this encounter
--- OUTSIDE RECORDS SUMMARY | 2025-01-23 12:05 | XMS_ITS | Encounter Summary ---
Author Organization [facility] Address [address] [place] [address] Care Team Providers Care Program Aide Name Role Phone Keila Cadet PA-C Primary Care Provider David Eubanks DO Unavailable [phone] Source Comments In the event this information is protected by the Federal Confidentiality of Alcohol and Drug AbusePatient Records regulations: The Federal rules restrict any use of the information to criminally investigate or prosecute any alcohol or drug abuse patient.[facility] Encounter Details Date Type Department Care Team (Late st Contact Info) Description 04/05/2022 Patient Msg General Surgery [address] [place] [address] Provider, Ccf Consultation Order Social History Tobacco Use Types Packs/Day Years Used Date Smoking Tobacco: Former Cigarettes 0.5 1 0 05/09/2005 - 05/09/2006 Smokeless Tobacco: Never Comments:PATIENT SMOKED 4-5 CIGARETTES DAILY BEFORE QUITTING Alcohol Use Standard Drinks/Week Comments No 0 (1 standard drink = 0.6 oz pur e alcohol) Area Deprivation Index Answer Date Cirilo rded National Score (1-100), lower number is lower ri sk Not on file 2020 State Score (1-10), lower number is lower risk N ot on file 2020 Data from: https://www.neighborhoodatlas.medicine.[facility]/. Last address used for calculation Not on [...] file Not on file Not on file COVID-19 Exposure Response Date Recorded In the last 10 days, have oj u been in contact with someone who was confirmed or suspected to have Coronavirus/COVID-19? No / Unsure 03/31/2022 2:14 PM EST documented as of this encounter Functional Status [...] filedocumented in this encounter Care Teams Program Aide Relationship Specialty Start Date End Date Keila Cadet PA-C PCP - General Family Medicine 04/12/16 David Eubanks DO Referring Neurology 02/11/20 documented as of this encounter
--- OUTSIDE RECORDS SUMMARY | 2025-01-23 12:05 | XMS_ITS | Encounter Summary ---
Author Organization [facility] Address [address] [place] [address] Care Team Providers Care Inventory Auditor Name Role Phone Keila Cadet PA-C Primary Care Provider David Eubanks DO Unavailable [phone] Source Comments In the event this information is protected by the Federal Confidentiality of Alcohol and Drug AbusePatient Records regulations: The Federal rules restrict any use of the information to criminally investigate or prosecute any alcohol or drug abuse patient.[facility] Encounter Details Date Type Department Care Team (Late st Contact Info) Description 02/15/2018 Patient Msg Pain Management [address] [place], [place] [id number] Herson Dominguez MD [address] [place], [place] [id number] RE: Request an Appointment Social History Tobacco [...] on filedocumented in this encounter Care Teams Inventory Auditor Relationship Specialty Start Date End Date Keila Cadet PA-C PCP - General Family Medicine 04/12/16 David Eubanks DO Referring Neurology 02/11/20 documented as of this encounter
--- OUTSIDE RECORDS SUMMARY | 2025-01-23 12:05 | XMS_ITS | Encounter Summary ---
Author Organization [facility] Address [address] [place] [address] Care Team Providers Care Neonatal Pediatric Nurse Name Role Phone Daron Ratliff MD Primary Care Provider [phone] Jg Garvin DO Primary Care Provider [phone] Keila Cadet PA-C Primary Care Provider David Eubanks DO Unavailable [phone] Source Comments In the event this information is protected by the Federal Confidentiality of Alcohol and Drug AbusePatient Records regulations: The Federal rules restrict any use of the information to criminally investigate or prosecute any alcohol or drug abuse patient.[facility] Encounter Details Date Type Department Care Team (Late st Contact Info) Description 07/08/2008 Patient Msg Medical Records [address] [place] [address] Provider, Ccf Patient Registration Social History Tobacco Use Types Packs/Day Years [...] on filedocumented in this encounter Care Teams Neonatal Pediatric Nurse Relationship Specialty Start Date End Date Daron Ratliff MD PCP - General 12/23/09 04/11/16 Jg Garvin DO [address] [place] [address] PCP - General 07/08/08 12/22/09 Keila Cadet PA-C [address] [place] [address] PCP - General Family Medicine 04/12/16 David Eubanks DO [address] [place] [address] Referring Neurology 02/11/20 documented as of this encounter
--- OUTSIDE RECORDS SUMMARY | 2025-01-23 12:05 | XMS_ITS | Encounter Summary ---
Author Organization [facility] Address [address] [place] [address] Care Team Providers Care Matrix Inspector Name Role Phone Daron Ratliff MD Primary Care Provider [phone] Jg Garvin DO Primary Care Provider [phone] Keila Cadet PA-C Primary Care Provider David Eubanks DO Unavailable [phone] Source Comments In the event this information is protected by the Federal Confidentiality of Alcohol and Drug AbusePatient Records regulations: The Federal rules restrict any use of the information to criminally investigate or prosecute any alcohol or drug abuse patient.[facility] Encounter Details Date Type Department Care Team (Late st Contact Info) Description 09/28/2008 Patient Msg Medical Records [address] [place] [address] Provider, [facility] Health Information Exchange Social History [...] on filedocumented in this encounter Care Teams Matrix Inspector Relationship Specialty Start Date End Date Daron Ratliff MD PCP - General 12/23/09 04/11/16 Jg Garvin DO [address] [place] [address] PCP - General 07/08/08 12/22/09 Keila Cadet PA-C [address] [place] [address] PCP - General Family Medicine 04/12/16 David Eubanks DO [address] [place] [address] Referring Neurology 02/11/20 documented as of this encounter
--- OUTSIDE RECORDS SUMMARY | 2025-01-23 12:05 | XMS_ITS | Encounter Summary ---
Author Organization [facility] Address [address] [place] [address] Care Team Providers Care Electronic Science Teacher Name Role Phone Keila Cadet PA-C Primary Care Provider David Eubanks DO Unavailable [phone] Source Comments In the event this information is protected by the Federal Confidentiality of Alcohol and Drug AbusePatient Records regulations: The Federal rules restrict any use of the information to criminally investigate or prosecute any alcohol or drug abuse patient.[facility] Encounter Details Date Type Department Care Team (Late st Contact Info) Description 12/30/2021 Patient Msg Gastroenterology [address] [id number] Lisha Gutierrez MD [address] [place] [address] Appointment Request Social History Tobacco Use Types Packs/Day [...] N ot on file 2020 Data from: https://www.neighborhoodatlas.medicine.[facility]/. Last address used for calculation Not [...] of Assessment Author Yes 04/20/2016 11:07 AM Moine Mohan on K * Do you have [...] on filedocumented in this encounter Care Teams Electronic Science Teacher Relationship Specialty Start Date End Date Keila Cadet PA-C PCP - General Family Medicine 04/12/16 David Eubanks DO Referring Neurology 02/11/20 documented as of this encounter
--- OUTSIDE RECORDS SUMMARY | 2025-01-23 12:05 | XMS_ITS | Encounter Summary ---
Author Organization [facility] Address [address] [place] [address] Care Team Providers Care Supply Room Clerk Name Role Phone Daron Ratliff MD Primary Care Provider [phone] Jg Garvin DO Primary Care Provider [phone] Keila Cadet PA-C Primary Care Provider David Eubanks DO Unavailable Source Comments In the event this information is protected by the Federal Confidentiality of Alcohol and Drug AbusePatient Records regulations: The Federal rules restrict any use of the information to criminally investigate or prosecute any alcohol or drug abuse patient.[facility] Encounter Details Date Type Department Care Team (Late st Contact Info) Description 01/20/2009 Patient Msg Medical Records [address] [place] [address] Provider, Ccf RE: Request an Appointment Social [...] on filedocumented in this encounter Care Teams Supply Room Clerk Relationship Specialty Start Date End Date Daron Ratliff MD PCP - General 12/23/09 04/11/16 Jg Garvin DO [address] [place] [address] PCP - General 07/08/08 12/22/09 Keila Cadet PA-C [address] [place] [address] PCP - General Family Medicine 04/12/16 David Eubanks DO [address] [place] [address] Referring Neurology 02/11/20 documented as of this encounter
--- OUTSIDE RECORDS SUMMARY | 2025-01-23 12:05 | XMS_ITS | Encounter Summary ---
Author Organization [facility] Address [address] [place] [address] Care Team Providers Care Mottler Operator Name Role Phone Keila Cadet PA-C Primary Care Provider David Eubanks DO Unavailable [phone] Source Comments In the event this information is protected by the Federal Confidentiality of Alcohol and Drug AbusePatient Records regulations: The Federal rules restrict any use of the information to criminally investigate or prosecute any alcohol or drug abuse patient.[facility] Encounter Details Date Type Department Care Team (Late st Contact Info) Description 02/22/2020 Patient Msg Pain Management [address] [place] [address] Kourtney Cordova APRN.[employer] SUPERVISOR [address] [place] [address] results Social History Tobacco Use Types Packs/Day [...] Exposure Response Date Recorded In the last month, have you been in contact with someone who was confirmed or suspected to have Coronavirus / COVID-19? No / Unsure 02/20/2020 9:38 AM EDT documented as of this encounter Functional Status [...] on filedocumented in this encounter Care Teams Mottler Operator Relationship Specialty Start Date End Date Keila Cadet PA-C PCP - General Family Medicine 04/12/16 David Eubanks DO Referring Neurology 02/11/20 documented as of this encounter
--- OUTSIDE RECORDS SUMMARY | 2025-01-23 12:05 | XMS_ITS | Encounter Summary ---
Author Organization [facility] Address [address] [place] [address] Care Team Providers Care Shirring Machine Operator Automatic Name Role Phone Keila Cadet PA-C Primary Care Provider David Eubanks DO Unavailable [phone] Source Comments In the event this information is protected by the Federal Confidentiality of Alcohol and Drug AbusePatient Records regulations: The Federal rules restrict any use of the information to criminally investigate or prosecute any alcohol or drug abuse patient.[facility] Encounter Details Date Type Department Care Team (Late st Contact Info) Description 04/19/2022 Get Medical Advice Endocrinology [address] [place] [address] Kimberly Velazquez MD [address] [place] [address] Blood sugars Social History Tobacco Use Types Packs/Day Years [...] N ot on file 2020 Data from: https://www.neighborhoodatlas.medicine.[facility]/. Last address used for calculation [...] Recorded In the last 10 days, have yo u been in contact with someone who [...] Date Author Yes 04/20/2016 11:07 AM EST [place], D on K documented in this encounter Plan of Treatment Not on file documented as of this encounter Visit Diagnoses Not on filedocumented in this encounter Care Teams Shirring Machine Operator Automatic Relationship Specialty Start Date End Date Keila Cadet PA-C PCP - General Family Medicine 04/12/16 David Eubanks DO Referring Neurology 02/11/20 documented as of this encounter
--- OUTSIDE RECORDS SUMMARY | 2025-01-23 12:05 | XMS_ITS | Encounter Summary ---
Author Organization [facility] Address [address] [place] [address] Care Team Providers Care Lithographic Stripper Name Role Phone Daron Ratliff MD Primary Care Provider [phone] MastJg DO Primary Care Provider [phone] Pcp, No Primary Care Provider UnavailKeila Masterson PA-C Primary Care Provider David Eubanks DO Unavailable [phone] Source Comments In the event this information is protected by the Federal Confidentiality of Alcohol and Drug AbusePatient Records regulations: The Federal rules restrict any use of the information to criminally investigate or prosecute any alcohol or drug abuse patient.[facility] Encounter Details Date Type Department Care Team ([facility] st Contact Info) Description 07/03/2008 Patient Msg Medical Records [address] [place] [address] Provider, [facility] Medical Procedure Social [...] on filedocumented in this encounter Care Teams Lithographic Stripper Relationship Specialty Start Date End Date Daron Ratliff MD PCP - General 12/23/09 04/11/16 Jg Garvin DO [address] [place] [address] PCP - General 07/08/08 12/22/09 Pcp, No [address] [place] [address] PCP - General 04/17/08 07/07/08 Keila Cadet PA-C [address] [facility] [place] [address] PCP - General Family Medicine 04/12/16 David Eubanks DO [address] [place] [address] Referring Neurology 02/11/20 documented as of this encounter
--- OUTSIDE RECORDS SUMMARY | 2025-01-23 12:05 | XMS_ITS | Encounter Summary ---
Author Organization [facility] Address [address] [place] [address] Care Team Providers Care Recycle Worker Name Role Phone Keila Cadet PA-C Primary Care Provider David Eubanks DO Unavailable [phone] Source Comments In the event this information is protected by the Federal Confidentiality of Alcohol and Drug AbusePatient Records regulations: The Federal rules restrict any use of the information to criminally investigate or prosecute any alcohol or drug abuse patient.[facility] Encounter Details Date Type Department Care Team (Late st Contact Info) Description 11/18/2018 Patient Msg Pain Management [address] [place], [place] [id number] Herson Dominguez MD [address] [place], [place] [id number] RE: Appointment Cancellation Request Social History Tobacco [...] on filedocumented in this encounter Care Teams Recycle Worker Relationship Specialty Start Date End Date Keila Cadet PA-C PCP - General Family Medicine 04/12/16 David Eubanks DO Referring Neurology 02/11/20 documented as of this encounter
--- OUTSIDE RECORDS SUMMARY | 2025-01-23 12:05 | XMS_ITS | Encounter Summary ---
Author Organization [facility] Address [address] [place] [address] Care Team Providers Care Rehabilitation Case Coordinator Name Role Phone Daron Ratliff MD Primary Care Provider [phone] Jg Garvin DO Primary Care Provider [phone] Keila Cadet PA-C Primary Care Provider David Eubanks DO Unavailable [phone] Source Comments In the event this information is protected by the Federal Confidentiality of Alcohol and Drug AbusePatient Records regulations: The Federal rules restrict any use of the information to criminally investigate or prosecute any alcohol or drug abuse patient.[facility] Encounter Details Date Type Department Care Team (Late st Contact Info) Description 12/26/2008 Patient Msg Medical Records [address] [place] [address] Provider, [facility] Health Information Exchange Social History [...] on filedocumented in this encounter Care Teams Rehabilitation Case Coordinator Relationship Specialty Start Date End Date Daron Ratliff MD PCP - General 12/23/09 04/11/16 Jg Garvin DO [address] [place] [address] PCP - General 07/08/08 12/22/09 Keila Cadet PA-C [address] [place] [address] PCP - General Family Medicine 04/12/16 David Eubanks DO [address] [place] [address] Referring Neurology 02/11/20 documented as of this encounter
--- OUTSIDE RECORDS SUMMARY | 2025-01-23 12:05 | XMS_ITS | Clinical Summary ---
Author Organization [facility] Address [address] [facility], [address] [place] [address] Care Team Providers Care Group Worker Name Role Phone Daron Ratliff MD Primary Care Provider Allergies Active Allergy Reactions Criticality Noted Date Comments Codeine 04/19/2013 Latex 04/19/2013 Morphine 04/19/2013 Penicillins 04/19/2013 Phenazopyridine Hcl 04/19/2013 Medications ranitidine (ZANTAC) 300 MG tablet 04/12/2013 Active sertraline (ZOLOFT) 100 MG tablet 04/03/2013 Active buPROPion (WELLBUTRIN XL) 300 MG XL tablet 04/01/2013 Ac tive metFORMIN (GLUCOPHAGE) 500 MG tablet 04/02/2013 Active NEXIUM 40 MG capsule 03/13/2013 Active Topiramate (TOPAMAX PO) Take by mouth. Active Spironolactone (ALDACTONE PO) Take by mouth. Active LYRICA 150 MG capsule 03/10/2013 Active Family History Relation Name Status Comments Father Alive Mother Other Unknown Social History Tobacco Use Types Packs/Day Years Used Date Smoking Tobacco: Never Alcohol Use Standard Drinks/Week Comments No 0 (1 standard drink = 0.6 oz pur e alcohol) Comments Unknown Sex and Gender Information Value Date Recorded Sex Assigned at Not on file Legal Sex Female 2:19 PM EST Gender Identity Not on file Sexual Orientation Not on file Last Filed Vital Signs Vital Sign Reading Time Taken Comments Blood Pressure 114/64 04/19/2013 10:59 AM EST Pulse 65 04/19/2013 10:59 AM EST Temperature - - Respiratory Rate - - Oxygen Saturation - - Inhaled Oxygen Concentration - - Weight 96.2 kg (212 lb) 04/19/2013 10:59 AM EST Height - - Body Mass Index - - Plan of Treatment Not on file Care Teams Group Worker Relationship Specialty Start Date End Date Daron Ratliff MD PCP - General 04/09/13
--- OUTSIDE RECORDS SUMMARY | 2025-01-23 12:05 | XMS_ITS | Encounter Summary ---
Author Organization [facility] Address [address] [place] [address] Care Team Providers Care Allergy Physician Name Role Phone Daron Ratliff MD Primary Care Provider [phone] Jg Garvin DO Primary Care Provider [phone] Keila Cadet PA-C Primary Care Provider David Eubanks DO Unavailable [phone] Source Comments In the event this information is protected by the Federal Confidentiality of Alcohol and Drug AbusePatient Records regulations: The Federal rules restrict any use of the information to criminally investigate or prosecute any alcohol or drug abuse patient.[facility] Encounter Details Date Type Department Care Team (Late st Contact Info) Description 02/25/2009 Patient Msg Medical Records [address] [place] [address] Provider, [facility] Information Exchange Social History Tobacco Use [...] on filedocumented in this encounter Care Teams Allergy Physician Relationship Specialty Start Date End Date Daron Ratliff MD PCP - General 12/23/09 04/11/16 Jg Garvin DO [address] [place] [address] PCP - General 07/08/08 12/22/09 Keila Cadet PA-C [address] [place] [address] PCP - General Family Medicine 04/12/16 David Eubanks DO [address] [place] [address] Referring Neurology 02/11/20 documented as of this encounter
--- OUTSIDE RECORDS SUMMARY | 2025-01-23 12:05 | XMS_ITS | Encounter Summary ---
Author Organization [facility] Address [address] [place] [address] Care Team Providers Care Police Lieutenant Patrol Name Role Phone Keila Cadet PA-C Primary Care Provider David Eubanks DO Unavailable [phone] Source Comments In the event this information is protected by the Federal Confidentiality of Alcohol and Drug AbusePatient Records regulations: The Federal rules restrict any use of the information to criminally investigate or prosecute any alcohol or drug abuse patient.[facility] Encounter Details Date Type Department Care Team (Late st Contact Info) Description 07/20/2022 Get Medical Advice Endocrinology [address] [place] [address] Kimberly Velazquez MD [address] [place] [address] El 5mg Social History Tobacco Use Types [...] N ot on file 2020 Data from: https://www.neighborhoodatlas.medicine.[facility]/. Last address used for calculation [...] on filedocumented in this encounter Care Teams Police Lieutenant Patrol Relationship Specialty Start Date End Date Keila Cadet PA-C PCP - General Family Medicine 04/12/16 David Eubanks DO Referring Neurology 02/11/20 documented as of this encounter
--- OUTSIDE RECORDS SUMMARY | 2025-01-23 12:05 | XMS_ITS | Encounter Summary ---
Author Organization [facility] Address [address] [place] [address] Care Team Providers Care Application Integration Engineer Name Role Phone Keila Cadet PA-C Primary Care Provider David Eubanks DO Unavailable [phone] Source Comments In the event this information is protected by the Federal Confidentiality of Alcohol and Drug AbusePatient Records regulations: The Federal rules restrict any use of the information to criminally investigate or prosecute any alcohol or drug abuse patient.[facility] Encounter Details Date Type Department Care Team (Late st Contact Info) Description 06/21/2022 Patient Msg Endocrinology [address] [place] [address] Provider, [facility] Questionnaire Submission Social History Tobacco Use Types Packs/Day Years [...] on file 2020 Data from: https://www.neighborhoodatlas.medicine.[facility]/. Last address used for calculation Not on file 2020 Comments No Sex and Gender Information Value Date Recorded Sex Assigned at Female 06/05/2019 4:00 PM EST Legal Sex Female 8:01 AM EST Gender Identity Female 06/05/2019 4:00 PM EST Sexual Orientation Straight 06/05/2019 4 :00 PM EST Occupation Industry Job Start Date [...] on filedocumented in this encounter Care Teams Application Integration Engineer Relationship Specialty Start Date End Date Keila Cadet PA-C PCP - General Family Medicine 04/12/16 David Eubanks DO Referring Neurology 02/11/20 documented as of this encounter
--- OUTSIDE RECORDS SUMMARY | 2025-01-23 12:05 | XMS_ITS | Encounter Summary ---
Author Organization [facility] Address [address] [place] [id number] Care Team Providers Care Starting Sheet Tank Operator Name Role Phone Keila Cadet PA-C Primary Care Provider David Eubanks DO Unavailable [phone] Source Comments In the event this information is protected by the Federal Confidentiality of Alcohol and Drug AbusePatient Records regulations: The Federal rules restrict any use of the information to criminally investigate or prosecute any alcohol or drug abuse patient.[facility] Reason for Visit * Reason Comments Radiology XR Encounter Details Date Type Department Care Team (Late st Contact Info) Description 02/20/2020 Radiology General Radiology [address] [place] [address] Andrea Geronimo RT(R) Radiology XR Social History Tobacco Use Types Packs/Day Years [...] Mohan on K documented in this encounter Progress Notes * Harry Alonzo (Rt), Loc - 02/20/2020 10:27 AM EDT Radiology Service Progress Note PATIENT NAME: Tri Pearl DATE OF SERVICE: February 20, 2020 TIME: 10:27 AM PATIENT IDENTITY VERIFICATION COMPLETED USING TWO (2) IDENTIFIERS: Name and Date of confirmedby patient verbally. FALL SCREENING: Has the patient had 2 falls in the last year or 1 fall with injury or currently using an Ambulatory Assistive Device (Walker, Cane, Wheelchair, Crutches, etc.)? No PATIENT GENDER DATA: Female. status: : No status: NO. PATIENT RELEVANT IMPLANT DATA REVIEWED: Not Applicable RADIOLOGY DEPARTMENT: General X-ray: Exam(s) Completed: Upper Extremity X- Ray(s): Hand, bilateral : PERIPHERAL IV DATA: Not applicable SIGNED BY: RT Bahman February 20, 2020 10:27 AM documented in this encounter Plan of Treatment Not on file documented as of this encounter Visit Diagnoses Not on filedocumented in this encounter Care Teams Starting Sheet Tank Operator Relationship Specialty Start Date End Date Keila Cadet PA-C PCP - General Family Medicine 04/12/16 David Eubanks DO Referring Neurology 02/11/20 documented as of this encounter
--- OUTSIDE RECORDS SUMMARY | 2025-01-23 12:05 | XMS_ITS | Encounter Summary ---
Author Organization [facility] Address [address] [place] [address] Care Team Providers Care Nanosystems Engineer Name Role Phone Daron Ratliff MD Primary Care Provider [phone] MastJg DO Primary Care Provider [phone] Pcp, No Primary Care Provider UnavailKeila Masterson PA-C Primary Care Provider David Eubanks DO Unavailable [phone] Source Comments In the event this information is protected by the Federal Confidentiality of Alcohol and Drug AbusePatient Records regulations: The Federal rules restrict any use of the information to criminally investigate or prosecute any alcohol or drug abuse patient.[facility] Encounter Details Date Type Department Care Team ([facility] st Contact Info) Description 07/04/2008 Patient Msg Medical Records [address] [place] [address] Provider, [facility] Social History [...] on filedocumented in this encounter Care Teams Nanosystems Engineer Relationship Specialty Start Date End Date Daron Ratliff MD PCP - General 12/23/09 04/11/16 Jg Garvin DO [address] [place] [address] PCP - General 07/08/08 12/22/09 Pcp, Judi [address] [place] [address] PCP - General 04/17/08 07/07/08 Keila Cadet PA-C [address] [facility] [place] [address] PCP - General Family Medicine 04/12/16 David Eubanks DO [address] [facility] [place] [address] Referring Neurology 02/11/20 documented as of this encounter
--- OUTSIDE RECORDS SUMMARY | 2025-01-23 12:14 | XMS_ITS | CCD ---
Author Organization [facility] Care Team Providers Care 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 Name Role Phone JAMES BLACKMON Unavailable Unavailable [...] XXXX Primary Care Physician Unavailab humberto MICHEL, HEATHER Primary Care Physician Unavailab Irasema Masters Primary Care Physician Keila Lynch PA-C Primary Care Provider David Eubanks DO Unavailable Daron Hernandez Admitting Unavailable MoDaron nesbitt Referring Unavailable MoDaron nesbitt Attending Unavailable MoDaron nesbitt Referring Unavailable Mourany, Daron Johnson Attending Unavailable Daron Hernandez Admitting Unavailable LucDevon Admitting Unavailable Devon Calle Attending Unavailable Devon Calle Attending Unavailable Unallocated MD, Noms Provider Primary Care Provi marco a Unallocated MD, Noms Provider Primary Care Provi marco a Molly LAWTON Mustapha Unavailable Rell YBARRA, Irasema Unavailable Devon Calle Attending Unavailable WILLIE GALINDO Attending Unavailabl e [place] Estrada Attending Unavailable Doris, Daron Attending Unavailable James Faulkner Attending Unavailable EDMUNDO DEVLIN Referring Unavailable SYED KEILA KERRI Primary Care Unavailabl e JOHN PIERCE Attending Unavailable SYED, KEILA KERRI Primary Care Unavailabl e EDMUNDO DEVLIN Attending Unavailable SYED, [facility] Primary [facility] Unavailabl e KEYLA GUSMAN Attending Unavailable ABBY ACEVEDO Attending Unavailable KEYLA GUSMAN Attending Unavailable RILEYMICHAELA Attending Unavailable WEN, NERY Attending Unavailable WEN, NERY Attending Unavailable WEN, NERY Attending Unavailable WEN, NERY Attending Unavailable WEN, NERY Attending Unavailable UZMA, KEYLA Attending Unavailable WEN, NERY Attending Unavailable KEYLA GUSMAN Attending Unavailable Mouchli, Mohamad A. Admitting Unavailable Mouchli, Mohamad A. Attending Unavailable Mouchli, Mohamad A. Referring Unavailable Irasema Zacarias Admitting Unavailab le Irasema Zacarias Attending Unavailab le Mouchli, Mohamad A. Attending Unavailable Irasema Zacarias Attending Unavailab le Mouchli, Mohamad A. Attending Unavailable Mouchli, Mohamad A. Admitting Unavailable Mouchli, Mohamad A. Referring Unavailable Mouchli, Mohamad A. Attending Unavailable Mouchli, Mohamad A. Admitting Unavailable NABIL Zacarias Attending May vailable Missler, BIAS MACHINE OPERATOR-C Irasema Medley Admitting May vailable Mouchli, Mohamad A. Referring Unavailable Mouchli, Mohamad A. Admitting Unavailable Mouchli, Mohamad A. Attending Unavailable Rell, BIAS MACHINE OPERATOR-C Irasema Medley Admitting May vailable ler, BIAS MACHINE OPERATOR-C Irasema Medley Attending May vailable Raimundo LAWTONDavid Unavailable ler, CURRY-Christina Medley Attending May vailable MouranyDaron Attending Unavailable Mojosey, Daron Johnson Attending Unavailable Mourany, Daron Johnson Attending Unavailable DoCelena clemente Attending Unavailable James Faulkner Attending Unavailable Daron Hernandez Referring Unavailable Daron Hernandez Admitting Unavailable MoDaron nesbitt Attending Unavailable BEVERLYKYUNG ABREU Attending Unavailable NERY CARVER Referring Unavailable Missler, Irasema Medley Attending Unavailab le Missler, Irasema Medley Attending Unavailab le Missler, Irasema Medley Referring Unavailab le Missler, Irasema Medley Admitting Unavailab le Janak, Roshan Attending Unavailable NoreenDavid roach DO Unavailable James Faulkner Attending Unavailable Daron George Attending Unavailable Missler, Irasema Medley Attending Unavailab le Missler, Irasema Medley Attending Unavailab le Missler, Irasema Medley Attending Unavailab le Missler, Irasema Medley Attending Unavailab le Missler, Irasema Medley Referring Unavailab le Missler, Irasema Medley Attending Unavailab le Missler, Irasema Medley Attending Unavailab le Missler, Irasema Medley Admitting Unavailab le Molly LAWTON Riteshtreva Unavailable [phone] Allergies Allergy Classification Reported Allergen(s) Allergy Type Date of Onset Reaction(s) Facility Eggs (1 source) Egg Food Allergy Vomiting (disorder) [facility] Latex (1 source) Latex Substance Allergy Eruption of skin (disorder) [facility] lurasidone (1 source) lurasidone; Translations: [lurasidone] Drug Allergy Intolerance, function (observable entity) [facility] Opioid Agonists (2 sources) Codeine; Translations: [codeine] Drug Allergy Childhood, function (observable entity) [facility] Penicillins (antibiotic) (1 source) Penicillin; Translations: [penicillin] Drug Allergy Childhood, function (observable entity) [facility] Phenazopyridine (1 source) Phenazopyridine; Translations: [phenazopyridine] Drug Allergy Pain [facility] Serotonin-1b and Serotonin-1d Receptor Agonists (1 source) SUMAtriptan; Translations: [sumatriptan] Drug Allergy Respiratory function (observable entity), Tight chest (finding) [facility] (12 sources) codeine; Translations: [codeine] Drug Allergy 08-17-19 06 [facility] Rep[facility] (2 sources) egg extract; Translations: [EGG] Drug Allergy 07-11-19 [facility] (20 sources) Latex; Translations: [Latex] Drug allergy (disorder) 08-17-19 06 Eruption of skin (disorder) [facility] (12 sources) morphine; Translations: [morphine] Drug Allergy 05-23-19 09 [facility] (2 sources) Penicillins; Translations: [PENICILLINS] Drug allergy (disorder) 11-16-19 07 [facility] (11 sources) phenazopyridine; Translations: [Pyridium] Drug Allergy [facility] (20 sources) Codeine; Translations: [codeine] Drug Allergy 08-17-19 06 Childhood, function (observable entity), Other [facility] (20 sources) Egg; Translations: [Eggs] Food allergy Vomiting (disorder) [facility] (20 sources) lurasidone; Translations: [lurasidone] Drug Allergy 03-31-20 Intolerance, function (observable entity), Other: See Comments, Intolerance [facility] (20 sources) Morphine; Translations: [morphine] Drug Allergy 05-23-19 09 rash, SOB, Unknown [facility] (20 sources) Penicillin; Translations: [penicillin] Drug Allergy Childhood, function (observable entity) [facility] (20 sources) Phenazopyridine; Translations: [phenazopyridine] Drug Allergy 11-16-19 23 Other [facility] (20 sources) SUMAtriptan; Translations: [sumatriptan] Drug Allergy 11-16-19 Respiratory function (observable entity), Tight chest (finding), Other, Unknown [facility] (20 sources) Dairy 1 Drug intolerance unknown [facility] Comment on above: splenda molasses dairy high fructose corn syrup eggs Reactions of the above unkown. splenda molasses dairy high fructose corn syrup eggs Reactions of the above unkown. (20 sources) egg extract Drug Allergy 07-11-19 20 Rash [facility] Work Phone: (20 sources) Latex Propensity to adverse reactions 08-17-19 Rash, Swelling [facility] (1 source) Penicillins Propensity to adverse reactions 11-16-19 07 [facility] (20 sources) Phenazopyridine; Translations: [PHENAZOPYRIDINE HCL] Drug Allergy 10-31-19 08 [facility] (20 sources) SUMAtriptan; Translations: [SUMATRIPTAN SUCCINATE] Drug Allergy 05-16-19 10 [facility] (20 sources) Erythromycin; Translations: [erythromycin] Drug Allergy 03-31-20 Other: See Comments, Unknown [facility] (19 sources) Penicillins Propensity to adverse reactions 11-16-19 07 [facility] (20 sources) semaglutide; Translations: [SEMAGLUTIDE] Drug Allergy 03-31-20 GI Upset [facility] (1 source) Codeine Drug Allergy 07-08-19 [facility] Rep[facility] (1 source) Morphine Drug Allergy 07-08-19 [facility] (1 source) Penicillins Drug allergy (disorder) 07-08-19 [facility] Rep[facility] (1 source) Phenazopyridine Drug Allergy 07-08-19 [facility] (1 source) SUMAtriptan Drug Allergy 07-08-19 [facility] Rep[facility] (3 sources) codiene Propensity to adverse reactions Unknown [facility] Other (10 sources) Ciprofloxacin; Translations: [ciprofloxacin] Drug Allergy [facility] Rep[facility] (10 sources) Ciprofloxacin; Translations: [Cipro] Drug Allergy [facility] Rep[facility] (10 sources) Dairy; Translations: [Dairy] Propensity to adverse reactions (disorder) [facility] (20 sources) Latex Allergy to substance 11-16-19 Other, Rash [facility] (20 sources) lurasidone Drug Allergy 11-16-19 Other [facility] (20 sources) penicillAMINE Drug Allergy 03-09-20 Unknown [facility] (20 sources) Penicillins Drug Allergy 11-16-19 Unknown [facility] (20 sources) Egg-Derived Products Drug Allergy 11-16-19 GI intolerance [facility] (20 sources) Fish-Derived Products Drug Allergy 11-16-19 Hives [facility] (20 sources) Semaglutide Allergy to substance 03-31-20 GI intolerance [facility] (2 sources) Penicillins Propensity to adverse reactions 11-16-19 [facility] Medications Current Medications Medication Drug Class(es) Dates Sig (Normalized) Sig (Original) 0.5 ML semaglutide 0.5 MG/ML Auto-Injector (3 sources) Start: 07-23-2021 End: 09-17-2021 inject 0.25 mg by subcutaneous injection every week Wegovy (0.25 mg dose) subcutaneous solution 0.25 mg, SubCutaneous, qWeek, X 4 week(s), # 4 EA, Refills(s) 1, Pharmacy: [facility] #[id number], 175, cm, 07/23/21 10:50:00 EDT, Height/Length Dosing, [...] qWeek, # 4 EA, Refills(s) 3, Pharmacy: [facility] #[id number], 175, cm, 11/24/21 9:21:00 EDT, Height/Length Dosing, 136.3, kg, 11/24/21 9:21:00 EDT, Weight Dosing Start Date: 12/08/21 Status: Ordered Start: 10-15-2021 Ozempic (1 mg dose) 4 mg/3 mL subcutaneous solution 1 mg, SubCutaneous, qWeek, To be filled after 0.5 mg dose is filled, # 1 EA, Refills(s) 11, Pharmacy: [facility]/pharmacy #[id number], 175.3, cm, 09/30/21 11:01:00 EDT, Height/Length Dosing, 136.5, kg, 09/30/21 11:01:00 EDT, Weight Dosing Start Date: 10/15/21 Status: Ordered acetaminophen 325 mg / HYDROcodone bitartrate 5 mg oral tablet (2 sources) Opioid Agonist Start: 11-28-2023 End: 11-30-2023 [place] 325 mg-5 mg oral tablet 1 tab(s), Oral, q6hr for pain for 2 day(s), 8 tab(s), Refill(s) 0, [facility] #[id number], 175, cm, 11/28/23 19:12:00 EDT, Height/Length Dosing, 139, kg, 11/28/23 19:12:00 EDT, Weight Dosing Start Date: 11/28/23 Stop Date: 11/30/23 Status: Ordered Albuterol (Eqv-ProAir HFA) 90 mcg/inh inhalation aerosol (20 sources) Start: 08-14-2024 take 2 puff(s) by inhalation every six hours Albuterol (Eqv-ProAir HFA) 90 mcg/inh inhalation aerosol 2 puff(s), Inhalation, q6hr, 18 gm, Refill(s) 4, [facility] #[id number], 175, cm, 08/14/24 11:49:00 EDT, Height/Length Dosing, 135, kg, 08/14/24 11:49:00 EDT, Weight Dosing Start Date: 08/14/24 Status: Ordered Quantity: 18.0 Unit: g Repeat number: 5 Indications: Mild intermittent asthma, uncomplicated; Start: 03-14-2023 take 2 puff(s) by in halation every six hours Albuterol (Eqv-ProAir HFA) 90 mcg/inh inhalation aerosol 2 puff(s), Inhalation, q6hr, 18 gm, Refill(s) 4, [facility] #[id number], 173, cm, 03/14/23 16:23:00 EST, Height/Length Dosing, [...] q6hr for wheezing, 18 gram, Refill(s) 11, [facility] #[id number], 176, cm, 03/25/21 10:04:00 EST, Height/Length Dosing, 136.6, kg, 03/25/21 10:04:00 EST, Weight Dosing Start Date: 03/25/21 Status: Ordered Ascorbic Acid (20 sources) Vitamin C Start: 07-07-2020 Vitamin C Refi lls(s) 0 Start Date: 07/07/20 Status: Ordered ascorbic acid (V itamin C) 100 MG chewable tablet Vitamin C Active ascorbic acid 60 mg / beta carotene 5000 unt / copper sulfate 40 mg / dl-alpha tocopheryl acetate 30 unt / sodium selenite 0.04 mg / zinc oxide 40 mg oral tablet (20 sources) Vitamin C Multiple Vitamin (Multivitamin Adult) tablet 1 (one) time each day at the same time. Active atomoxetine 25 mg oral capsule (15 sources) Norepinephrine Reuptake Inhibitor Start: 12-27-19 25 take 1 capsule by mouth once daily atomoxetine (Strattera) 25 MG capsule Take 25 mg by mouth Daily 12/26/2024 Active take 1 capsule by mouth once elena ly atomoxetine (Strattera) 10 MG capsule Take 10 mg by mouth Daily Swallow capsule whole; do not open. If opened accidentally, do not touch eyes; wash hands immediately (product is an eye irritant). Active Auvelity 45-105 MG tablet controlled-release (20 sources) Start: 03-10-2023 take 1 tablet by mouth in the morning Auvelity 45-105 MG tablet controlled-release Take 1 tablet by mouth in the morning and 1 tablet before bedtime. 03/10/2023 Active azithromycin 250 mg oral tablet (12 sources) Macrolide Antimicrobial Start: 06-11-2024 End: 01-23-2025 azithromycin (Zithromax) 250 MG tablet TAKE 2 TABLETS BY MOUTH FOR 1 DAY THEN TAKE 1 TABLET BY MOUTH DAILY FOR 4 DAYS 06/11/2024 01/23/2025 Discontinued (Other) Start: 07-01-2023 End: 07-06-2023 Zithromax 250 mg Tab = 1 pac ket(s), Oral, As Directed, as directed on package labeling, X 5 day(s), # 6 tab(s), Refills(s) 0, Pharmacy: [facility] #[id number], 173, cm, 07/01/23 12:09:00 EST, Height/Length Dosing, 137, kg, 07/01/23 12:09:00 EST, Weight Dosing Start Date: 07/01/23 Stop Date: 07/06/23 Status: Ordered Start: 03-14-2023 End: 03-19-2023 azithromycin 250 mg Tab = 1 packet(s), Oral, As Directed, as directed on package labeling, X 5 day(s), # 6 tab(s), Refills(s) 0, Pharmacy: [facility] #[id number], 173, cm, 03/14/23 16:23:00 EST, Height/Length Dosing, 132.2, kg, 03/14/23 16:23:00 EST, Weight Dosing Start Date: 03/14/23 Stop Date: 03/19/23 Status: Ordered benzonatate 100 mg oral capsule (3 sources) Non-narcotic Antitussive Start: 02-28-2024 End: 03-06-2024 take 1 capsule by mouth three times daily Tessalon 100 mg Cap 100 mg = 1 cap(s), Oral, TID, X 7 day(s), # 21 cap(s), Refills(s) 0, Pharmacy: [facility] #[id number], 176, cm, 02/28/24 9:17:00 EDT, Height/Length Dosing, 138, kg, 02/28/24 9:17:00 EDT, Weight Dosing Start Date: 02/28/24 Stop Date: 03/06/24 Status: Ordered bifidobacterium infantis 4 mg oral capsule (6 sources) Start: 06-22-2021 take 1 capsule by mouth once daily Align 4 mg oral capsule 4 mg = 1 cap(s), Oral, Daily, # 28 cap(s), Refills(s) 2, Pharmacy: [facility] #[id number], 175, cm, 06/22/21 13:23:00 EST, Height/Length Dosing, 134.4, kg, 06/22/21 13:23:00 EST, Weight Dosing Start Date: 06/22/21 Status: Ordered brexpiprazole 3 mg oral tablet (20 sources) Atypical Antipsychotic Start: 05-20-2023 take 1 tablet by mouth once daily Rexulti 3 mg oral tablet 3 mg = 1 tab(s), Oral, Daily, Refills(s) 0, Depression Start Date: 05/20/23 Status: Ordered Repeat number: 1 Start: 01-07-2022 brexpiprazole (REXULTI) 2 mg tablet 01/07/2022 Active Start: 11-24-2021 Rexulti 1 mg o ral tablet Refills(s) 0 Start Date: 11/24/21 Status: Ordered 12 hr buPROPion hydrochlorid e 100 mg extended release oral tablet (20 sources) Aminoketone Start: 09-23-2022 Start: 11-21-2019 take 1 tablet by oly once daily buPROPion 100 mg ER Tab 100 mg = 1 tab(s), Oral, Daily, # 30 tab(s), Refills(s) 0, Pharmacy: [facility] #[id number], 175, cm, 10/26/19 8:51:00 EDT, Height/Length Measured, [...] 45 MG Extended Release Oral Tablet [Auvelity] (20 sources) Start: take 1 tablet by mouth twice daily Auvelity 45 mg-105 mg oral tablet, extended release 1 tab(s), Oral, BID, Refill(s) 0, Depression Start Date: 05/20/23 Status: Ordered Repeat number: 1 Start: 05-20-2023 take 1 tablet by oly th twice daily Auvelity 45 mg-105 mg oral [...] Tab 15 mg = 1 tab(s), Oral, TID, Depression Start Date: 05/20/23 Status: Ordered Repeat number: 1 Start: 09-23-2022 busPIRone Oral , BID, Refills(s) 0 Start Date: 09/23/22 Status: Ordered Start: 03-23-2022 End: 06-01-2024 buspirone HCl (BUSPAR ORAL) 03/23/2022 06/01/2024 Discontinued Start: 03-23-2022 buspirone HCl (BUSPAR ORAL) 03/23/2022 Active Start: 03-23-2022 buspirone HCl (BUSPAR ORAL) cariprazine 3 mg oral capsule (6 sources) Atypical Antipsychotic Start: 08-25-2021 take 1 mg by mouth once daily Vraylar 3 mg oral capsule mg cap(s), Oral, Daily Start Date: 08/25/21 Status: Ordered cefdinir 300 mg oral capsule (1 source) Cephalosporin Antibacterial Start: 03-02-2024 End: 03-09-2024 take 1 capsule by mouth every twelve hours cefdinir 300 mg Cap 300 mg = 1 cap(s), Oral, q12hr, X 7 day(s), # 14 cap(s), Refills(s) 0, Pharmacy: [facility] #[id number], 175.2, cm, 03/02/24 21:24:00 EDT, Height/Length Dosing, 137.9, kg, 03/02/24 21:24:00 EDT, Weight Dosing Start Date: 03/02/24 Stop Date: 03/09/24 Status: Ordered cephalexin 500 mg oral capsule (2 sources) Cephalosporin Antibacterial Start: 11-29-2023 End: 12-09-2023 take 1 capsule by mouth three times daily Keflex 500 mg Cap 500 mg = 1 cap(s), Oral, TID, X 10 day(s), # 30 cap(s), Refills(s) 0, Pharmacy: [facility] #[id number], 175, cm, 11/29/23 20:31:00 EDT, Height/Length Dosing, 139, kg, 11/29/23 20:31:00 EDT, Weight Dosing Start Date: 11/29/23 Stop Date: 12/09/23 Status: Ordered cholecalciferol 1.25 mg oral capsule (20 sources) Vitamin D Start: 11-20-2024 take 1 capsule by mouth every week cholecalciferol 50,000 intl units oral capsule 2,500 mcg = 2 cap(s), Oral, qWeek, # 26 cap(s), Refills(s) 4, Pharmacy: [facility] #[id number], 175, cm, 09/26/24 9:59:00 EDT, Height/Length Dosing, 134.9, kg, 09/26/24 9:59:00 EDT, Weight Dosing Start Date: 11/20/24 Status: Ordered Quantity: 26.0 Unit: cap(s) Repeat number: 5 Indications: Vitamin D deficiency, unspecified; Start: 08-15-2024 take 1 capsule by mo [facility] every week cholecalciferol 50,000 intl units oral capsule 2,500 mcg = 2 cap(s), Oral, qWeek, # 12 cap(s), Refills(s) 2, Pharmacy: [facility] #[id number], 175, cm, 08/14/24 11:49:00 EDT, Height/Length Dosing, 135, kg, 08/14/24 11:49:00 EDT, Weight Dosing Start Date: 08/15/24 Status: Ordered Quantity: 12.0 Unit: cap(s) Repeat number: 3 Indications: Vitamin D deficiency, unspecified; cholecalciferol (Vitamin D-3) 50 MCG (1999 UT) capsule Vitamin D Active ciprofloxacin 500 mg oral tablet (4 sources) Quinolone Antimicrobial Start: 01-13-2024 take 1 tablet by mouth once daily Cipro 500 mg Tab See Instructions, 1 tab po day prior to cysto, 1 tab po following cysto, # 2 tab(s), Refills(s) 0, Pharmacy: [facility] #[id number], 175, cm, 01/13/24 10:23:00 EDT, Height/Length Dosing, 137, kg, 01/13/24 10:23:00 EDT, Weight Dosing Start Date: 01/13/24 Status: Ordered Start: 12-25-2021 take 1 tablet by oly th twice daily Cipro 500 mg Tab 500 [...] day(s), # 28 cap(s), Refills(s) 0, Pharmacy: [facility] #[id number], 175, cm, 11/28/23 19:12:00 EDT, Height/Length Dosing, 139, kg, 11/28/23 19:12:00 EDT, Weight Dosing Start Date: 11/28/23 Stop Date: 12/05/23 Status: Ordered Clotrimazole (6 sources) Azole Antifungal Start: 06-22-2021 clotrimazole Top 1% Crm 1 carlo, Topical, BID, 45 gram, Refill(s) 0, [facility] #[id number], 175, cm, 06/22/21 13:23:00 EST, Height/Length Dosing, 134.4, kg, 06/22/21 13:23:00 EST, Weight Dosing Start Date: 06/22/21 Status: Ordered dextromethorphan-b uPROPion (AUVELITY) 45-105 mg tablet (13 sources) Start: 03-10-2023 take 1 tablet by mouth twice daily dextromethorphan-bu PROPion (AUVELITY) 45-105 mg tablet 1 tablet Orally twice daily for 90 days 03/10/2023 Active Start: 03-10-2023 take 1 tablet by oly twice daily dextromethorphan-buPROPion (AUVELITY) 45-105 mg tablet 1 tablet Orally twice daily for 90 days 0 03/10/2023 Active diclofenac sodium 0.01 mg/mg topical gel (2 sources) Nonsteroidal Anti-inflammatory Drug Start: 08-14-2024 Voltaren Gel 1% Gel 1 carlo, Topical, QID for pain, 100 gram, Refill(s) 0, [facility] #[id number], 175, cm, 08/14/24 11:49:00 EDT, Height/Length Dosing, 135, kg, 08/14/24 11:49:00 EDT, Weight Dosing Start Date: 08/14/24 Status: Ordered Quantity: 100.0 Unit: g Repeat number: 1 Indications: Radiculopathy, lumbar region; dicyclomine hydrochloride 20 mg oral tablet (20 sources) Anticholinergic Start: 08-18-2022 End: 07-06-2024 take 1 tablet by mouth three times daily dicyclomine 20 mg Tab 20 mg = 1 tab(s), Oral, TID, X 7 day(s), # 21 tab(s), Refills(s) 0, Pharmacy: [facility] #[id number], 175.2, cm, 06/29/24 15:07:00 EST, Height/Length Dosing, 136.9, kg, 06/29/24 15:07:00 EST, Weight Dosing Start Date: 06/29/24 Stop Date: 07/06/24 Status: Ordered Start: 12-25-2021 End: 01-01-2022 take 1 capsule [...] Ordered Start: 02-06-2021 take 1 tablet by oly th four times daily dicyclomine 20 mg Tab 20 mg = 1 tab(s), Oral, QID, # 12 tab(s), Refills(s) 0, Pharmacy: [facility] #[id number], 175, cm, 02/06/21 19:35:00 EDT, Height/Length Dosing, [...] day(s), # 4 EA, Refills(s) 5, Pharmacy: [facility] #[id number], 175, cm, 12/31/21 19:57:00 EDT, Height/Length Dosing, [...] tablet (20 sources) Histamine-2 Receptor Antagonist Start: 03-03-20 take 1 tablet by mouth at bedtime famotidine (Pepcid) 40 MG tablet TAKE 1 TABLET BY MOUTH IN THE MORNING AND AT BEDTIME 03/03/2023 Active Start: 08-18-2022 Start: 05-23-2022 take 1 tablet by mouth once da ryan Pepcid 20 mg Tab 20 mg = 1 tab(s), Oral, Daily, # 14 tab(s), Refills(s) 0, Pharmacy: [facility]/pharmacy #[id number], 175, cm, 05/23/22 6:53:00 EST, Height/Length Dosing, 139.2, kg, 05/23/22 6:53:00 EST, Weight Dosing Start Date: 05/23/22 Status: Ordered ferrous sulfate 325 mg delayed release oral tablet (2 sources) Start: 11-20-2024 take 2 tablets by mouth every other day ferrous sulfate 325 mg oral enteric coated tablet 650 mg = 2 tab(s), Oral, Every other day, # 90 tab(s), Refills(s) 3, [id number], 175, cm, 09/26/24 9:59:00 EDT, Height/Length Dosing, 134.9, kg, 09/26/24 9:59:00 EDT, Weight Dosing Start Date: 11/20/24 Status: Ordered Quantity: 90.0 Unit: tab(s) Repeat number: 4 Indications: Iron deficiency anemia, unspecified; Start: 08-15-2024 take 2 tablets by [facility] every other day ferrous sulfate 325 mg oral enteric coated tablet 650 mg = 2 tab(s), Oral, Every other day, # 45 tab(s), Refills(s) 3, Pharmacy: [facility] #[id number], 175, cm, 08/14/24 11:49:00 EDT, Height/Length Dosing, 135, kg, 08/14/24 11:49:00 EDT, Weight Dosing Start Date: 08/15/24 Status: Ordered Quantity: 45.0 Unit: tab(s) Repeat number: 4 Indications: Iron deficiency anemia, unspecified; Flonase 0.05 mg/inh nasal spray (6 sources) Start: 12-15-2018 Flonase 0.05 mg/inh nasal spray 2 spray(s), Nasal, Daily, 16 gram, Refill(s) 5, each nostril, [facility] #[id number] Start Date: 12/15/18 Status: Ordered fluconazole 150 mg oral tablet (16 sources) Azole Antifungal Start: 01-23-2024 End: 01-23-2024 take 1 tablet by mouth once, then take 1 tablet by mouth once fluconazole (Diflucan) 150 MG tablet Indications: Yeast infection Take 1 tablet (150 mg) by mouth 1 (one) time for 1 dose This is a 1 time dose, take single tablet by mouth. 1 tablet 1 01/23/2024 01/23/2024 Active Start: 11-23-2023 End: 01-23-2024 fluconazole (Diflucan) 150 M G tablet Indications: Yeast infection Take one tab today. Take second tab in one week. 2 tablet 11/23/2023 01/23/2024 Discontinued Start: 07-01-2023 take 1 tablet by mouth once Di flucan 150 mg Tab 150 mg = 1 tab(s), Oral, Once, 1 tab when antibiotic starts, and 1 tab at the completion of the antibiotic, # 2 tab(s), Refills(s) 1, Pharmacy: [facility] #[id number], 173, cm, 07/01/23 12:09:00 EST, Height/Length Dosing, 137, kg, 07/01/23 12:09:00 EST, Weight Dosing Start Date: 07/01/23 Status: Ordered fluocinonide 0.5 mg/ml topical solution (20 sources) Corticosteroid Start: 02-09-2022 fluocinonide ( Lidex) 0.05 % external solution APPLY TOPICALLY TO THE [facility] DAILY NEEDED FOR FLARES 02/09/2022 Active fluticasone propionate 0.05 mg/actuat metered dose nasal spray (20 sources) Corticosteroid Start: 06-11-2024 take 1 spray(s) nasal route twice daily Flonase 0.05 mg/inh [place] 1 spray(s), Nasal, BID, 16 gram, Refill(s) 5, each nostril, [facility] #[id number], 175.2, cm, 06/11/24 14:27:00 EST, Height/Length Dosing, 136.9, kg, 06/11/24 14:27:00 EST, Weight Dosing Start Date: 06/11/24 Status: Ordered Quantity: 16.0 Unit: g Repeat number: 6 Indications: Other specified health status; Unspecified nonsuppurative otitis media, bilateral; Chronic sinusitis, unspecified; Body mass index [BMI] 40.0-44.9, adult; Start: 02-18-2022 take 2 spray(s) nasa l route once daily fluticasone (Flonase) 50 MCG/ACT nasal spray SHAKE LIQUID AND USE 2 SPRAYS IN EACH NOSTRIL EVERY DAY 02/18/2022 Active Start: 09-09-2020 End: 08-18-2021 take 2 spray(s) nasal route once daily fluticasone (FLONASE) 50 mcg/actuation nasal spray Indications: Severe persistent asthma without complication (HCC) , Dyspnea, unspecified type , Obesity, unspecified classification, unspecified obesity type, unspecified whether serious comorbidity present , Allergic rhinitis due to pollen, unspecified seasonality , Sleep apnea, unspecified type SHAKE LIQUID AND USE 2 SPRAYS IN EACH NOSTRIL EVERY DAY 48 g 3 08/18/2021 Active Start: 12-15-2018 Flonase 0.05 m g/inh nasal spray 2 spray(s), Nasal, Daily, 16 gram, Refill(s) 5, each nostril, [facility] #[id number] Start Date: 12/15/18 Status: Ordered take 1 puff(s) by in halation in the morning fluticasone (Flovent HFA) 110 MCG/ACT inhaler Inhale 1 puff in the morning and 1 puff before bedtime. Active Comment on above: SHAKE LIQUID AND USE 2 SPRAYS IN EACH NOSTRIL EVERY DAY 120 actuat fluticasone propionate 0.23 mg/actuat / salmeterol 0.021 mg/actuat metered dose inhaler (20 sources) Corticosteroid, beta2-Adrenergic Agonist Start: 01-07-20 take 2 puff(s) by mouth twice daily ADVAIR HFA 230-21 mcg/actuation inhaler Indications: Severe persistent asthma without complication (HCC) , Dyspnea, unspecified type , Obesity, unspecified classification, unspecified obesity type, unspecified whether serious comorbidity present , Allergic rhinitis due to pollen, unspecified seasonality , Gastroesophageal reflux disease , Sleep apnea, unspecified type INHALE 2 PUFFS BY MOUTH TWICE DAILY DIRECTED 12 g 11 01/06/2021 Active Comment on above: INHALE 2 PUFFS BY MO UTH TWICE DAILY DIRECTED 1 ml galcanezumab-gnlm 120 mg/ml auto-injector (20 sources) Start: 09-05-19 inject 1 mg by subcutaneous injection every month Emgality Prefilled Pen 120 mg/mL subcutaneous solution SubCutaneous, qMonth, Refills(s) 0 Start Date: 09/04/24 Status: Ordered Repeat number: 1 Start: 08-28-2024 galcanezumab ( Emgality) 120 MG/ML auto-injector Indications: Migraine without aura and without status migrainosus, not intractable Inject 1 Syringe (120 mg) under the skin every 30 (thirty) days 1 mL 5 08/28/2024 Active Start: 05-20-2023 inject 1 mL by subcu taneous injection every month Emgality Prefilled Pen 120 mg/mL subcutaneous solution SubCutaneous, qMonth, ADMINISTER 1 ML UNDER THE SKIN MONTHLY, Migraine headache Start Date: 05/20/23 Status: Ordered Start: 10-07-2022 End: 06-10-2024 inject 1 mL by subcutaneous injection every 30 days galcanezumab-gnlm (EMGALITY PEN) 120 mg/mL pen ADMINISTER 1 ML UNDER THE SKIN EVERY 30 DAYS 10/07/2022 Active Start: 08-25-2021 inject 1 mg by subcu taneous injection every month Emgality Prefilled Syringe 120 mg/mL subcutaneous solution mg, SubCutaneous, qMonth Start Date: 08/25/21 Status: Ordered hydrOXYzine pamoate 25 mg oral capsule (20 sources) Antihistamine Start: 02-08-2023 take 1 capsule by mouth every six hours as needed for anxiety hydrOXYzine pamoate (Vistaril) 25 MG capsule TAKE 1 CAPSULE BY MOUTH EVERY 6 HOURS NEEDED FOR ANXIETY 02/08/2023 Active Start: 03-22-2022 take 1 capsule by mo uth once daily at bedtime as needed hydrOXYzine pamoate (VISTARIL) 25 mg capsule TAKE 1 CAPSULE BY MOUTH EVERY DAY AT BEDTIME NEEDED 03/22/2022 Active Comment on above: TAKE 1 CAPSULE BY MO UTH EVERY DAY AT BEDTIME NEEDED Imodium A-D EZ Chews 2 mg oral tablet, chewable (20 sources) Start: 10-21-2022 Imodium A-D EZ Chews [...] as needed Inhalation every 4 hrs Active lidocaine 0.05 mg/mg medicated patch (2 sources) Antiarrhythmic, Amide Local Anesthetic Start: 08-14-2024 lidocaine Top 5% minnie m Patch 1 patch(es), Topical, Daily, 7 patch(es), Refill(s) 1, apply 12 hours on and 12 hours off daily, [facility] #[id number], 175, cm, 08/14/24 11:49:00 EDT, Height/Length Dosing, 135, kg, 08/14/24 11:49:00 EDT, Weight Dosing Start Date: 08/14/24 Status: Ordered Quantity: 7.0 Unit: patch(es) Repeat number: 2 loperamide hydrochloride 2 mg chewable tablet (17 sources) Opioid Agonist Start: 10-21-2022 Imodium A-D EZ Chews 2 mg oral tablet, chewable 2 mg, 1 tab(s), Chewed, q4hr Diarrhea, 12 tab(s), Refill(s) 0, [id number], 173, cm, 10/21/22 16:01:00 EDT, Height/Length Dosing, 139, kg, 10/21/22 16:01:00 EDT, Weight Dosing Start Date: 10/21/22 Status: Ordered Start: 02-06-2021 take 1 tablet by oly th every four hours as needed Imodium A-D 2 mg oral tablet 2 mg = 1 tab(s), Oral, q4hr, PRN for loose stools, # 12 tab(s), Refills(s) 0, Pharmacy: [facility] #[id number], 175, cm, 02/06/21 19:35:00 EDT, Height/Length Dosing, 136, kg, 02/06/21 19:35:00 EDT, Weight Dosing Start Date: 02/06/21 Status: Ordered lumateperone 42 mg oral capsule (3 sources) Start: 06-22-2021 Caplyta 42 mg oral capsule Refills(s) 0 Start Date: 06/22/21 Status: Ordered magnesium oxide 400 mg oral tablet (20 sources) Start: 01-16-2024 End: 03-29-2024 take 1 tablet by mouth once daily magnesium oxide (Mag-Ox) 400 mg tablet Indications: Migraine without aura and without status migrainosus, not intractable (CMS/HCC) Take on 400 mg tablet by mouth daily for 5 days. 5 tablet 01/16/2024 03/29/2024 Discontinued (Therapy completed) Start: 09-23-2022 magnesium oxid e Oral, Refills(s) 0 Start Date: 09/23/22 Status: Ordered meclizine hydrochloride 25 mg oral tablet (2 sources) Antiemetic Start: 12-31-2021 End: 01-05-2022 take 1 tablet by mouth three times daily meclizine 25 mg Tab 25 mg = 1 tab(s), Oral, TID, X 5 day(s), # 15 tab(s), Refills(s) 0, Pharmacy: [facility] #[id number], 175, cm, 12/31/21 19:57:00 EDT, Height/Length Dosing, [...] day(s), # 120 tab(s), Refills(s) 3, Pharmacy: [facility] #[id number], 176, cm, 08/25/21 14:44:00 EDT, Height/Length Dosing, 138.6, kg, 08/25/21 14:44:00 EDT, Weight Dosing Start Date: 08/25/21 Stop Date: 12/23/21 Status: Ordered Start: 06-08-2018 End: 02-18-2022 take 1 tablet by mouth every twenty-four hours methylPREDNISolone 4 mg oral tablet (1 source) Corticosteroid Start: 03-02-2024 End: 03-08-2024 Medrol 4 mg Tab = 1 packet(s), Oral, As Directed, as directed on package labeling, X 6 day(s), # 21 tab(s), Refills(s) 0, Pharmacy: [facility] #[id number], 175.2, cm, 03/02/24 21:24:00 EDT, Height/Length Dosing, 137.9, kg, 03/02/24 21:24:00 EDT, Weight Dosing Start Date: 03/02/24 Stop Date: 03/08/24 Status: Ordered metoclopramide 5 mg oral tablet (1 source) Dopamine-2 Receptor Antagonist Start: 07-25-2023 End: 08-01-2023 take 1 tablet by mouth four times daily Reglan 5 mg Tab 5 mg = 1 tab(s), Oral, QID, X 7 day(s), # 28 tab(s), Refills(s) 0, Pharmacy: [facility] #[id number], 173, cm, 07/25/23 18:35:00 EDT, Height/Length Dosing, [...] qPM, # 30 tab(s), Refills(s) 1, Pharmacy: [facility] #[id number], 175, cm, 06/22/21 13:23:00 EST, Height/Length Dosing, 134.4, kg, 06/22/21 13:23:00 EST, Weight Dosing Start Date: 06/22/21 Status: Ordered Comment on above: Take 1 tablet by oly th daily at bedtime. Mounjaro (2 sources) Start: 09-23-2022 Mounjaro SubCutaneous, qWeek, Refills(s) 0 Start Date: 09/23/22 Status: Ordered Mounjaro (20 sources) Start: 09-23-2022 inject 5 mg by subcutaneous injection every week Mounjaro 5 mg, SubCutaneous, qWe, Fridays- per [facility], Refills(s) 0, Blood glucose Start Date: 09/23/22 Status: Ordered Repeat number: 1 Start: 09-23-2022 Mounjaro SubCu taneous, qWeek, Fridays, Refills(s) 0 Start Date: 09/23/22 Status: Ordered Start: 09-23-2022 Mounjaro SubCu taneous, qWeek, Refills(s) 0 Start Date: 09/23/22 Status: Ordered MOUNJARO 5 mg/0.5 mL pen injector (6 sources) Start: 12-31-2024 MOUNJARO 5 mg/ 0.5 mL pen injector Indications: Type 2 diabetes mellitus without complication, without long-term current use of insulin (HCC) , Class 3 severe obesity with serious comorbidity and body mass index (BMI) of 40.0 to 44.9 in adult, unspecified obesity type (HCC) ADMINISTER 5 MG UNDER THE SKIN 1 TIME A WEEK 2 mL 2 12/31/2024 Active Start: 10-15-2024 End: 12-31-2024 MOUNJARO 5 mg/0.5 mL pen inj kevin Indications: Type 2 diabetes mellitus without complication, without long-term current use of insulin (HCC) , Class 3 severe obesity with serious comorbidity and body mass index (BMI) of 40.0 to 44.9 in adult, unspecified obesity type (HCC) ADMINISTER 5 MG UNDER THE SKIN 1 TIME A WEEK 2 mL 2 10/15/2024 12/31/2024 Discontinued Start: 10-15-2024 MOUNJARO 5 mg/ 0.5 mL pen injector Indications: Type 2 diabetes mellitus without complication, without long-term current use of insulin (HCC) , Class 3 severe obesity with serious comorbidity and body mass index (BMI) of 40.0 to 44.9 in adult, unspecified obesity type (HCC) ADMINISTER 5 MG UNDER THE SKIN 1 TIME A WEEK 2 mL 2 10/15/2024 Active Start: 03-21-2024 End: 06-01-2024 MOUNJARO 5 mg/0.5 mL pen inj kevin Indications: Type 2 diabetes mellitus without complication, without long-term current use of insulin (HCC) , Class 3 severe obesity with serious comorbidity and body mass index (BMI) of 40.0 to 44.9 in adult, unspecified obesity type (HCC) INJECT 5 MG UNDER THE SKIN 1 TIME A WEEK. START ON JULY 29, 2023 2 mL 2 03/21/2024 06/01/2024 Discontinued Start: 03-21-2024 MOUNJARO 5 mg/ 0.5 mL pen injector Indications: Type 2 diabetes mellitus without complication, without long-term current use of insulin (HCC) , Class 3 severe obesity with serious comorbidity and body mass index (BMI) of 40.0 to 44.9 in adult, unspecified obesity type (HCC) INJECT 5 MG UNDER THE SKIN 1 TIME A WEEK. START ON JULY 29, 2023 2 mL 2 03/21/2024 Active Mounjaro 5 MG/0.5ML solution auto-injector (13 sources) Start: 03-22-2024 Mounjaro 5 MG/ 0.5ML solution auto-injector 03/22/2024 Active Mounjaro 7.5 MG/0.5ML solution pen-injector (20 sources) Start: 03-30-2023 End: 01-23-2025 inject 7.5 mg by subcutaneous injection every week Mounjaro 7.5 MG/0.5ML solution pen-injector ADMINISTER 7.5 MG UNDER THE SKIN 1 TIME A WEEK 03/30/2023 01/23/2025 Discontinued (Other) Start: 03-30-2023 inject 7.5 mg by sub cutaneous injection every week Mounjaro 7.5 MG/0.5ML solution pen-injector ADMINISTER 7.5 MG UNDER THE SKIN 1 TIME A WEEK 03/30/2023 Active Multi Vitamin+ (20 sources) Start: 02-27-2019 Multi Vitamin+ 1 gummy, Chewed, Daily, Refill(s) 0 Start Date: 02/27/19 Status: Ordered naproxen 500 mg oral tablet (20 sources) Nonsteroidal Anti-inflammatory Drug Start: 11-29-2023 End: 01-23-2025 take 1 tablet by mouth twice daily as needed naproxen (Naprosyn) 500 MG tablet Take 500 mg by mouth 2 (two) times a day as needed 11/30/2023 01/23/2025 Discontinued (Other) Non-Formulary Medication (17 sources) Start: 07-07-2020 Non-Formulary Medication See Instructions, L Tyrosine 1 tablet daily Start Date: 07/07/20 Status: Ordered nystatin 100 unt/mg topical powder (20 sources) Polyene Antifungal Start: 11-23-2023 End: 11-22-2024 nystatin (Mycostatin) 835712 UNIT/GM powder Indications: Yeast infection Apply topically 3 (three) times a day 15 g 11/23/2023 11/22/2024 Active Start: 12-21-2022 nystatin Top 1 00,000 units/g Crm 15 gram 1 carlo, Topical, BID, 30 gram, Refill(s) 1, [facility] #[id number], 173, cm, 12/21/22 13:04:00 EDT, Height/Length Dosing, 137.9, kg, 08/15/23 13:04:00 EDT, Weight Dosing Start Date: 12/21/22 Status: Ordered Quantity: 30.0 Unit: g Repeat number: 2 Indications: Candidiasis of skin and nail; Start: 10-26-2022 Nystop [id number] UNIT/GM powder APPLY TO AFFECTED AREA UNDER THE BREASTS EVERY MORNING NEEDED 10/26/2022 Active omeprazole 40 mg delayed release oral capsule (20 sources) Proton Pump Inhibitor Start: 06-23-2020 take 1 capsule by mouth twice daily omeprazole 10 mg Cap-EC 10 mg = 1 cap(s), Oral, BID, # 180 caplet(s), Refills(s) 1, Pharmacy: [facility] #[id number], 175, cm, 06/05/20 9:59:00 EST, Height/Length Dosing, 133.3, kg, 06/05/20 9:59:00 EST, Weight Dosing Start Date: 06/23/20 Status: Ordered Start: 03-26-2020 omeprazole (VT ILOSEC) 40 mg capsule 1 capsule. 03/26/2020 Active End: 06-24-2022 take 1 capsule by mouth once daily omeprazole (PRILOSEC) 40 mg capsule Take 40 mg by mouth once daily. 0 06/24/2022 Discontinued (Course of therapy completed) Comment on above: Take 40 mg by mouth once daily. omeprazole 10 mg Cap-EC (6 sources) Start: 06-23-19 take 1 capsule by mouth twice daily omeprazole 10 mg Cap-EC 10 mg = 1 cap(s), Oral, BID, # 180 caplet(s), Refills(s) 1, Pharmacy: [facility] #[id number], 175, cm, 06/05/20 9:59:00 EST, Height/Length Dosing, 133.3, kg, 06/05/20 9:59:00 EST, Weight Dosing Start Date: 06/23/20 Status: Ordered ondansetron 4 mg disintegrating oral tablet (20 sources) Serotonin-3 Receptor Antagonist Start: 04-06-20 End: 01-02-20 ondansetron ODT (Zofran-ODT) 4 MG disintegrating tablet Indications: Migraine without aura and without status migrainosus, not intractable DISSOLVE 1 TABLET ON THE TONGUE EVERY 8 HOURS NEEDED FOR NAUSEA OR VOMITING 15 tablet 01/02/2024 Active Start: 11-01-2021 ondansetron (Z OFRAN) 4 mg tablet Take 4 mg by mouth. 11/01/2021 Active Comment on above: Take 4 mg by mouth. predniSONE 20 mg oral tablet (10 sources) Start: 12-06-2024 End: 12-13-2024 take 3 tablets by mouth once daily predniSONE 20 mg Tab 60 mg = 3 tab(s), Oral, Daily, X 7 day(s), # 21 tab(s), Refills(s) 0, Pharmacy: [facility] #[id number], 175, cm, 12/06/24 17:34:00 EDT, Height/Length Dosing, 134, kg, 12/06/24 17:34:00 EDT, Weight Dosing Start Date: 12/06/24 Stop Date: 12/13/24 Status: Ordered Quantity: 21.0 Unit: tab(s) Repeat number: 1 Start: 05-22-2024 End: 05-27-2024 take 2 tablets by mouth once daily predniSONE 20 mg Tab 40 mg = 2 tab(s), Oral, Daily, X 5 day(s), # 10 tab(s), Refills(s) 0, Pharmacy: [facility] #[id number], 175.2, cm, 05/22/24 13:37:00 EST, Height/Length Dosing, 139, kg, 05/22/24 13:37:00 EST, Weight Dosing Start Date: 05/22/24 Stop Date: 05/27/24 Status: Ordered Start: 02-11-2022 predniSONE 20 mg Tab 20 mg = 1 tab(s), Oral, As Directed, Take three tabs by mouth for three days, then two tabs for three days, then one tab for three days, # 18 tab(s), Refills(s) 0, Pharmacy: [facility] #[id number], 175, cm, 12/31/21 19:57:00 EDT, Height/Length Do... Start Date: 02/11/22 Status: Ordered Start: 07-02-2021 predniSONE 20 mg Tab 20 mg = 1 tab(s), Oral, As Directed, Take three tabs by mouth for three days, then two tabs for three days, then one tab for three days, # 18 tab(s), Refills(s) 0, Pharmacy: [facility] #[id number], 175, cm, 07/02/21 10:47:00 EST, Height/Length Do... Start Date: 07/02/21 Status: Ordered pregabalin 25 mg oral capsule (20 sources) Start: 05-20-2023 End: 08-27-2024 take 1 capsule by mouth in the morning pregabalin (Lyrica) 25 MG capsule Indications: Other chronic pain Take 1 capsule (25 mg) by mouth in the morning and 1 capsule (25 mg) before bedtime. 60 capsule 1 08/27/2024 Active Start: 04-16-2020 take 1 capsule by mo [...] times daily for 180 days. promethazine hydrochloride 25 mg oral tablet (20 sources) Phenothiazine Start: 06-29-19 take 1 tablet by mouth three times daily promethazine 25 mg Tab 25 mg = 1 tab(s), Oral, TID, # 15 tab(s), Refills(s) 0, Pharmacy: [facility] #[id number], 175.2, cm, 06/29/24 15:07:00 EST, Height/Length Dosing, 136.9, kg, 06/29/24 15:07:00 EST, Weight Dosing Start Date: 06/29/24 Status: Ordered Quantity: 15.0 Unit: tab(s) Repeat number: 1 Start: 04-06-2023 take 12.5 mg rectal route every four hours as needed for nausea Phenergan 12.5 mg Supp 12.5 mg = 1 supp, Rectal, q4hr, PRN Nausea/Vomiting, # 6 EA, Refills(s) 0, [id number], 173, cm, 04/06/23 13:57:00 EST, Height/Length Dosing, 134.1, kg, 04/06/23 13:57:00 EST, Weight Dosing Start Date: 04/06/23 Status: Ordered Start: 05-23-2022 take 25 mg rectal ro unga every six hours as needed for nausea Phenergan 25 mg Supp 25 mg = 1 supp, Rectal, q6hr, PRN Nausea/Vomiting, # 6 EA, Refills(s) 0, Pharmacy: [facility] #[id number], 175, cm, 05/23/22 6:53:00 EST, Height/Length Dosing, 139.2, kg, 05/23/22 6:53:00 EST, Weight Dosing Start Date: 05/23/22 Status: Ordered End: 01-02-2024 promethazine (Phenergan) 12. 5 MG tablet 1 tablet 01/02/2024 Discontinued (Therapy completed) 0.25 mg, 0.5 mg dose 1.5 ml [...] mg, SubCutaneous, qWeek, 1 EA, Refill(s) 0, [facility] #[id number], 175.3, cm, 09/30/21 11:01:00 EDT, Height/Length Dosing, 136.5, kg, 09/30/21 11:01:00 EDT, Weight Dosing Start Date: 10/15/21 Status: Ordered Start: 04-19-2022 inject 0.25 mg by esposito bcutaneous injection every week Ozempic 2 mg/1.5 mL (0.25 mg or 0.5 mg dose) subcutaneous solution 0.25 mg, SubCutaneous, qWeek, 1 EA, Refill(s) 0, [facility] #[id number], 176, cm, 08/25/21 14:44:00 EDT, Height/Length Dosing, [...] day(s), # 28 tab(s), Refills(s) 0, Pharmacy: [facility] #[id number], 175, cm, 05/23/22 6:53:00 EST, Height/Length Dosing, 139.2, kg, 05/23/22 6:53:00 EST, Weight Dosing Start Date: 05/23/22 Stop Date: 05/30/22 Status: Ordered sulfamethoxazole 800 mg / trimethoprim 160 mg oral tablet (3 sources) Dihydrofolate Reductase Inhibitor Antibacterial, Sulfonamide Antimicrobial Start: 024 Bactrim D.S. 800 mg-160 mg Tab 1 tab(s), Oral, BID, 20 tab(s), Refill(s) 0, [facility] #[id number], 175, cm, 11/29/23 20:31:00 EDT, Height/Length Dosing, 139, kg, 11/29/23 20:31:00 EDT, Weight Dosing Start Date: 11/29/23 Status: Ordered Symbicort 160/4.5 inhalation aerosol with adapter (17 sources) Start: 022 Symbicort 160/4.5 inhalation aerosol with adapter 2 puff(s), Inhalation, BID, 1 EA, Refill(s) 0, rinse mouth and throat after use, [facility] #[id number], 175, cm, 06/22/21 13:23:00 EST, Height/Length Dosing, 134.4, kg, 06/22/21 13:23:00 EST, Weight Dosing Start Date: 06/22/21 Status: Ordered tirzepatide (MOUNJARO) 2.5 mg/0.5 mL pen injector (18 sources) Start: 024 tirzepatide (MOUNJARO) 2.5 mg/0.5 mL pen injector Indications: Type 2 diabetes mellitus without complication, without long-term current use of insulin (HCC) , Class 3 severe obesity with serious comorbidity and body mass index (BMI) of 40.0 to 44.9 in adult, unspecified obesity type (HCC) Inject 2.5 mg subcutaneously one time a week. 2 mL 3 05/03/2024 Active Start: 09-28-2023 End: 10-27-2023 tirzepatide (MOUNJARO) 2.5 m g/0.5 mL pen [...] mg subcut aneously one time a week. Tirzepatide 2.5 MG/0.5ML solution pen-injector (15 sources) Start: 10-26-2022 End: 01-23-2025 Tirzepatide 2.5 MG/0.5ML solution pen-injector Inject 0.5 mL as directed 1 (one) time per week 10/26/2022 01/23/2025 Discontinued (Other) Start: 10-26-2022 Tirzepatide 2. 5 MG/0.5ML solution pen-injector Inject 0.5 mL as directed 1 (one) time per week 10/26/2022 Active Tirzepatide 2.5 MG/0.5ML solution pen-injector (9 sources) Start: 10-26-2022 Tirzepatide 2. 5 MG/0.5ML solution pen-injector Inject 0.5 mL as directed 1 (one) time per week 10/26/2022 Active tiZANidine 4 mg oral tablet (20 sources) Central alpha-2 Adrenergic Agonist Start: 08-14-2024 take 1 tablet by mouth every eight hours tiZANidine 4 mg Tab 4 mg = 1 tab(s), Oral, q8hr, # 42 tab(s), Refills(s) 0, Pharmacy: [facility] #[id number], 175, cm, 08/14/24 11:49:00 EDT, Height/Length Dosing, 135, kg, 08/14/24 11:49:00 EDT, Weight Dosing Start Date: 08/14/24 Status: Ordered Quantity: 42.0 Unit: tab(s) Repeat number: 1 Indications: Radiculopathy, lumbar region; Start: 05-22-2024 End: 05-29-2024 take 1 tablet by mouth every eight hours tiZANidine 2 mg Tab 2 mg = 1 tab(s), Oral, q8hr, X 7 day(s), # 21 tab(s), Refills(s) 0, Pharmacy: [facility] #[id number], 175.2, cm, 05/22/24 13:37:00 EST, Height/Length Dosing, 139, kg, 05/22/24 13:37:00 EST, Weight Dosing Start Date: 05/22/24 Stop Date: 05/29/24 Status: Ordered Start: 09-16-2020 take 1 tablet by oly th three times daily tiZANidine 4 mg Tab 4 mg = 1 tab(s), Oral, TID, # 90 tab(s), Refills(s) 1, Pharmacy: [facility], 175, cm, 09/15/20 13:52:00 EDT, Height/Length Dosing, 128, kg, 09/15/20 13:52:00 EDT, Weight Dosing Start Date: 09/16/20 Status: Ordered ubrogepant 100 mg oral table t (20 sources) Start: 10-23-2023 Ubrogepant (Ub relvy) 100 MG tablet Indications: Migraine without aura and without status migrainosus, not intractable Take 1 tablet by mouth as needed at the onset of migraine. May repeat dose (1 tablet) once after 2 hours if migraine persists. Take no more than 2 doses in 24 hours. 8 tablet 5 08/28/2024 Active Start: 05-20-2023 take 1 tablet by oly th every two hours as needed UBRELVY 100 mg tablet TAKE 1 TABLET BY MOUTH AT ONSET OF MIGRAINE. MAY REPEAT AFTER 2 HOURS NEEDED 30 DAYS 06/14/2023 Active divalproex sodium 500 mg delayed release oral tablet (10 sources) Mood Stabilizer, Anti-epileptic Agent Start: 01-16-2024 End: 03-29-2024 divalproex (Depakote) 500 MG EC tablet Indications: Migraine without aura and without status migrainosus, not intractable (CMS/HCC) Take one 500 mg tablet by mouth twice daily for 5 days. Do not crush, chew, or split. 10 tablet 01/16/2024 03/29/2024 Discontinued (Therapy completed) verapamil hydrochloride 180 mg extended release oral tablet (20 sources) Calcium Channel Selvin Start: 04-30-2024 take 1 tablet by mouth once daily verapamil SR (Calan SR) 180 MG ER tablet Indications: Migraine without aura and without status migrainosus, not intractable Take 1 tablet (180 mg) by mouth Daily Do not crush or chew. 30 tablet 3 08/28/2024 Active Start: 01-24-2024 take 1 tablet by oly th once daily verapamil SR (Calan SR) 180 MG ER tablet Indications: Migraine without aura and without status migrainosus, not intractable (CMS/HCC) Take 1 tablet (180 mg) by mouth Daily 30 tablet 3 01/24/2024 Active Start: 08-30-2023 take 1 tablet by oly th once daily verapamil SR (Calan SR) 180 MG ER tablet Indications: Migraine without aura and without status migrainosus, not intractable (CMS/HCC) Take 1 tablet (180 mg) by mouth Daily 30 tablet 3 08/30/2023 Active Start: 05-20-2023 take 1 tablet by oly th once daily verapamil 120 mg ER Tab 120 mg = 1 tab(s), Oral, Daily, TAKE 1 TABLET BY MOUTH EVERY DAY, Migraine headache Start Date: 05/20/23 Status: Ordered Repeat number: 1 Start: 02-11-2020 take 1 capsule by mo uth once daily verapamil 120 mg Cap-ER 120 mg = 1 cap(s), Oral, Daily, Refills(s) 0 Start Date: 02/11/20 Status: Ordered take 1 tablet by oly th once daily verapamil (CALAN, ISOPTIN) 120 mg tablet Take 120 mg by mouth once daily. Active Verapamil HCl ER Active Comment on [...] Nausea/Vomiting, # 30 tab(s), Refills(s) 0, [id number], 173, cm, 04/06/23 13:57:00 EST, Height/Length Dosing, 134.1, kg, 04/06/23 13:57:00 EST, Weight Dosing Start Date: 04/06/23 Status: Ordered Start: 10-21-2022 take 1 tablet by oly th every eight hours Zofran ODT 4 mg Tab-Dis 4 mg = 1 tab(s), Oral, q8hr, # 10 tab(s), Refills(s) 0, Pharmacy: [facility] #[id number], 173, cm, 10/21/22 16:01:00 EDT, Height/Length Dosing, 139, kg, 10/21/22 16:01:00 EDT, Weight Dosing Start Date: 10/21/22 Status: Ordered Start: 05-23-2022 take 1 tablet by oly th every eight hours Zofran ODT 4 mg Tab-Dis 4 mg = 1 tab(s), Oral, q8hr, # 12 tab(s), Refills(s) 0, Pharmacy: [facility]/pharmacy #[id number], 175, cm, 05/23/22 6:53:00 EST, Height/Length Dosing, 139.2, kg, 05/23/22 6:53:00 EST, Weight Dosing Start Date: 05/23/22 Status: Ordered Start: 02-06-2021 take 1 tablet by oly th every eight hours Zofran ODT 4 mg Tab-Dis 4 mg = 1 tab(s), Oral, q8hr, # 10 tab(s), Refills(s) 0, Pharmacy: [facility] #[id number], 175, cm, 02/06/21 19:35:00 EDT, Height/Length Dosing, 136, kg, 02/06/21 19:35:00 EDT, Weight Dosing Start Date: 02/06/21 Status: Ordered Completed/Discontinued Medications Medication Drug Class(es) Dates Sig (Normalized) Sig (Original) acetaminophen 300 mg / butalbital 50 mg / caffeine 40 mg oral capsule (6 sources) Barbiturate, Central Nervous System Stimulant, Methylxanthine End: 01-02-2024 butalbital-acetami nophen-caffeine (Fioricet) 50-300-40 MG capsule 1 capsule 1 (one) time each day at the same time 01/02/2024 Discontinued (Therapy completed) take 1 capsule by mouth every fo ur hours take 1 capsule by mouth every fo ur hours Fioricet 50-300-40 MG 1 capsule as needed Orally every 4 hrs Not-Taking albuterol 0.83 mg/ml inhalation solution (20 sources) beta2-Adrenergic Agonist Start: 08-14-2024 take 30 doses by inhalation every four hours albuterol 0.083% Inh Padma 3 mL 0.083% - 3mL dosing units, Inhalation, q4hr Wheezing, 30 EA, Refill(s) 11, [facility] #[id number], 175, cm, 08/14/24 11:49:00 EDT, Height/Length Dosing, 135, kg, 08/14/24 11:49:00 EDT, Weight Dosing Start Date: 08/14/24 Status: Ordered Quantity: 30.0 Unit: EA Repeat number: 12 Start: 09-28-2022 take 2 puff(s) by in halation every six hours for wheezing albuterol HFA 90 mcg/act inhaler Inhale 2 puffs every 6 (six) hours if needed for wheezing. 09/28/2022 Active Start: 03-25-2021 take 30 doses by inh alation every four hours albuterol 0.083% Inh Padma 3 mL 0.083% - 3mL dosing units, Inhalation, q4hr Wheezing, 30 EA, Refill(s) [facility] #[id number], 176, cm, 03/25/21 10:04:00 EST, Height/Length Dosing, 136.6, kg, 03/25/21 10:04:00 EST, Weight Dosing Start Date: 03/25/21 Status: Ordered Start: 03-25-2021 take 30 doses by inh alation every four hours albuterol 0.083% Inh Padma 3 mL 0.083% - 3mL dosing units, Inhalation, q4hr Wheezing, 30 EA, Refill(s) [address] [place] [address] [facility] #[id number], 176, cm, 03/25/21 10:04:00 EST, Height/Length Dosing, 136.6, kg, 03/25/21 10:04:00 EST, Weight Dosing Start Date: 03/25/21 Status: Ordered Start: 04-20-2017 Start: 04-20-2017 Albuterol Sulf ate (2.5 MG/3ML) 0.083% 1 dose as directed Inhalation every 6 hrs Apr, Active Start: 11-15-2006 albuterol 90 m cg/Actuation INHALATION Aero as necessary for asthma 0 11/15/2006 Active albuterol (2.5 M G/3ML) 0.083% nebulizer solution Take 2.5 mg by nebulization every 6 (six) hours if needed for wheezing or shortness of breath Active Comment on above: as necessary for ast hma ARIPiprazole 15 mg oral tabl et (3 sources) Atypical Antipsychotic take 1 tablet by mouth every twenty-four hours take 1 tablet by oly th every twenty-four hours Abilify 15 MG 1 tablet Orally Once a day for 30 Ordered to take 2 but only takes 1 at this time. Not-Taking doxycycline hyclate 100 mg oral capsule (6 sources) Tetracycline-class Drug Start: 02-03-2024 take 1 capsule by mouth once daily doxycycline hyclate 100 mg Cap 100 mg = 1 cap(s), Oral, Daily, Take 1 pill the day before the procedure and 1 pill after the procedure, # 2 cap(s), Refills(s) 0, Pharmacy: [facility] #[id number], 175, cm, 01/13/24 10:23:00 EDT, Height/Length Dosing, 137, kg, 01/13/24 10:23:00 EDT, Weight Dosing Start Date: 02/03/24 Status: Ordered [id number] 0.3 ml EPINEPHrine 1 mg/ml auto-injector (9 [...] Active Comment on above: Use as directed. Glucometer n/a (3 sources) Start: 06-15-2018 Start: [...] J45.909, Supply Start Date: 02/26/19 Status: Ordered Quantity: 1.0 Unit: EA Repeat number: 1 Start: 02-26-2019 Nebulizer and supplies Nebulizer and supplies, See Instructions, 1 EA, 0, Pt requires nebulizer and tubing/supplies DX: J45.909, Supply Start Date: 02/26/19 Status: Ordered Nebulizer Machine (20 sources) Start: 02-11-2022 Nebulizer Mach ine Nebulizer Machine, See Instructions, 1 EA, 0, Nebulizer Machine, Supply Start Date: 02/11/22 Status: Ordered Start: 07-02-2021 Nebulizer Mach ine Nebulizer Machine, See Instructions, 1 EA, 0, Nebulizer Machine, [facility] #[id number], Supply, 175, cm, 07/02/21 10:47:00 EST, Height/Length Dosing, 133, kg, 07/02/21 10:47:00 EST, Weight Dosing Start Date: 07/02/21 Status: Ordered Quantity: 1.0 Unit: EA Repeat number: 1 Start: 07-02-2021 Nebulizer Mach ine Nebulizer Machine, See Instructions, 1 EA, 0, Nebulizer Machine, [facility] #[id number], Supply, 175, cm, 07/02/21 10:47:00 EST, Height/Length Dosing, 133, kg, 07/02/21 10:47:00 EST, Weight Dosing Start Date: 07/02/21 Status: Ordered Nebulizer Tubing and Mouthpiece Kit (20 sources) Start: 02-11-2022 Nebulizer Tubi ng and Mouthpiece Kit Nebulizer Tubing and Mouthpiece Kit, See Instructions, 1 kit(s), 0, Nebulizer Tubing and Mouthpiece Kit, Supply Start Date: 02/11/22 Status: Ordered Quantity: 1.0 Unit: kit(s) Repeat number: 1 Indications: Unspecified asthma with (acute) exacerbation; Start: 02-11-2022 Nebulizer Tubi ng and Mouthpiece Kit Nebulizer Tubing and Mouthpiece Kit, See Instructions, 1 kit(s), 0, Nebulizer Tubing and Mouthpiece Kit, Supply Start Date: 02/11/22 Status: Ordered Start: 07-02-2021 Nebulizer Tubi ng and Mouthpiece Kit Nebulizer Tubing and Mouthpiece Kit, See Instructions, 1 kit(s), 0, Nebulizer Tubing and Mouthpiece Kit, [facility] #[id number], Supply, 175, cm, 07/02/21 10:47:00 EST, Height/Length Dosing, 133, kg, 07/02/21 10:47:00 EST, Weight Dosing Start Date: 07/02/21 Status: Ordered raNITIdine (3 sources) Histamine-2 Receptor Antagonist Zantac 300 1 PO BID Orally Twice a day for 30 days Not-Taking tirzepatide (MOUNJARO) 5 mg/0.5 mL pen injector (19 sources) Start: 06-01-2024 End: 10-15-2024 tirzepatide (MOUNJARO) 5 mg/ 0.5 mL pen injector Indications: Type 2 diabetes mellitus without complication, without long-term current use of insulin (HCC) , Class 3 severe obesity with serious comorbidity and body mass index (BMI) of 40.0 to 44.9 in adult, unspecified obesity type (HCC) Inject 5 mg subcutaneously one time a week. 2 mL 2 06/01/2024 10/15/2024 Discontinued Start: 06-01-2024 End: 08-30-2024 tirzepatide (MOUNJARO) 5 mg/ 0.5 mL pen injector Indications: Type 2 diabetes mellitus without complication, without long-term current use of insulin (HCC) , Class 3 severe obesity with serious comorbidity and body mass index (BMI) of 40.0 to 44.9 in adult, unspecified obesity type (HCC) Inject 5 mg subcutaneously one time a week. 2 mL 2 06/01/2024 08/30/2024 Active Start: 10-27-2023 End: 06-01-2024 tirzepatide (MOUNJARO) 5 mg/ 0.5 mL pen injector Indications: Type 2 diabetes mellitus without complication, without long-term current use of insulin (HCC) , Class 3 severe obesity with serious comorbidity and body mass index (BMI) of 40.0 to 44.9 in adult, unspecified obesity type (HCC) Inject 5 mg subcutaneously one time a week. 2 mL 2 10/27/2023 06/01/2024 Discontinued Start: 10-27-2023 tirzepatide (M OUNJARO) 5 mg/0.5 mL pen injector Indications: Type 2 diabetes mellitus without complication, without long-term current use of insulin (HCC) , Class 3 severe obesity with serious comorbidity and body mass index (BMI) of 40.0 to 44.9 in adult, unspecified obesity type (HCC) Inject 5 mg subcutaneously one time a week. 2 mL 2 10/27/2023 Active Start: 10-27-2023 End: 01-25-2024 tirzepatide (MOUNJARO) 5 mg/ 0.5 mL pen injector Indications: Type 2 diabetes mellitus without complication, without long-term current use of insulin (HCC) , Class 3 severe obesity with serious comorbidity and body mass index (BMI) of 40.0 to 44.9 in adult, unspecified obesity type (HCC) Inject 5 mg subcutaneously one time a week. 2 mL 2 10/27/2023 01/25/2024 Active Start: 07-29-2023 End: 03-21-2024 tirzepatide (MOUNJARO) 5 mg/ 0.5 mL pen [...] July 29, 2023. 2 mL 2 07/29/2023 03/21/2024 Discontinued Start: 07-29-2023 tirzepatide (M OUNJARO) 5 mg/0.5 [...] mg subcutan eously one time a week. topiramate 100 mg oral tablet (3 sources) take 1 tablet by mouth every twelve hours traZODone hydrochloride 150 mg oral tablet (20 sources) Serotonin Reuptake Inhibitor Start: 06-11-19 take 1 tablet by mouth once daily at bedtime traZODONE 150 mg Tab 150 mg = 1 tab(s), Oral, Once a day (at bedtime), TAKE 1 TABLET BY MOUTH EVERY NIGHT AT BEDTIME, Sleep Start Date: 06/11/24 Status: Ordered Repeat number: 1 Start: 10-17-2019 take 1 tablet by oly th once daily at bedtime traZODONE 50 mg Tab 50 mg = 1 tab(s), Oral, Once a day (at bedtime), Refills(s) 0, Sleep Start Date: 10/17/19 Status: Ordered take 1 tablet by oly th every twenty-four hours Problems Active Problems Problem Classification Problem Date Documented Da te Episodic/Chronic Abdominal pain (20 sources) Flank pain; Translations: [Generalized abdominal pain] Onset: 9 Resolved: 9 09-01-2020 Episodic Administrative/social admission (5 sources) Patient encounter status; Translations: [Persons encountering health services in other specified circumstances] Onset: 2 Episodic Anxiety disorders (20 sources) Anxiety; Translations: [Mixed anxiety and depressive disorder] 04-06-2020 Chronic Anxiety disorders (20 sources) Anxiety disorder due to a general medical condition; Translations: [Anxiety disorder due to known physiological condition] 07-09-2008 Episodic Asthma (20 sources) Unspecified asthma, uncomplicated; Translations: [Exacerbation of asthma] Onset: 8 07-02-2021 Chronic Cardiac dysrhythmias (17 sources) Bradycardia 02-27-2019 Episodic Chronic obstructive pulmonary disease and bronchiectasis (17 sources) Acute exacerbation of chronic obstructive airways disease 02-09-2021 Chronic Coagulation and hemorrhagic disorders (20 sources) Factor V Leiden mutation; Translations: [Primary hypercoagulable state] 12-16-2023 Chronic Conditions associated with dizziness or vertigo (18 sources) Dizziness; Translations: [Dizziness and giddiness] Onset: 2 02-09-2021 Episodic Deficiency and other anemia (17 sources) Anemia 10-12-2018 Episodic Deficiency and other anemia (7 sources) Iron deficiency anemia 08-15-2024 Episodic Deficiency and other anemia (1 source) Deficiency and other anemia; Translations: [D64.9 - Anemia, unspecified] Onset: 2 Diabetes mellitus with complications (2 sources) Complication due to diabetes mellitus; Translations: [Type 2 diabetes mellitus with other specified complication] Onset: 4 Chronic Diabetes mellitus without complication (20 sources) Type 2 diabetes mellitus without complication; Translations: [Type 2 diabetes mellitus without complications] Onset: 2 Chronic Comment on above: linked DM with HLD p er OP CDI policy. Diabetes mellitus without complication (20 sources) Impaired glucose tolerance; Translations: [Prediabetes] Onset: 3 04-16-2020 Episodic Disorders of lipid metabolism (20 sources) Hyperlipidemia; Translations: [Other and unspecified hyperlipidemia] Onset: 4 04-16-2020 Chronic Endometriosis (20 sources) Endometriosis (clinical); Translations: [Endometriosis, unspecified] Resolved: 9 07-20-2013 Chronic Esophageal disorders (20 sources) Gastroesophageal reflux disease; Translations: [Gastro-esophageal reflux disease without esophagitis] 02-27-2019 Chronic Gastrointestinal hemorrhage (20 sources) Rectal hemorrhage; Translations: [Gastrointestinal hemorrhage] Onset: 9 02-09-2021 Episodic Genitourinary symptoms and ill-defined conditions (17 sources) Mixed incontinence; Translations: [Incontinence] Onset: 4 Chronic Genitourinary symptoms and ill-defined conditions (20 sources) Urine drug levels - finding; Translations: [...] Translations: [Migraine without aura, not refractory ] Onset: 4 10-25-2013 Chronic Headache; including migraine (1 source) [...] ] Onset: 8 Episodic Nausea and vomiting (20 sources) Nausea with vomiting, unspecified; Translations: [Nausea] Onset: 8 Episodic Noninfectious gastroenteritis (2 sources) Noninfective gastroenteritis and colitis, unspecified; Translations: [Noninfectious enteritis] Onset: 8 Episodic Nonmalignant breast conditions (17 sources) Discharge from nipple; Translations: [Nipple discharge] Onset: 4 Episodic Nonspecific chest pain (17 sources) Chest pain 09-15-2020 Episodic Nutritional deficiencies (7 sources) Vitamin D deficiency 08-15-2024 Chronic Osteoarthritis (20 sources) Arthritis; Translations: [Unspecified osteoarthritis, unspecified site] 04-20-2016 Chronic Other aftercare (1 source) Long-term current use of oral hypoglycemic medication; 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] Episodic Other circulatory disease (17 sources) Bleeds profusely 08-06-2020 Episodic Other circulatory disease (17 sources) Easy bruising 08-06-2020 Episodic Other complications of ; puerperium affecting management of mother (20 sources) Disorder of 05-20-2023 Episodic Other connective tissue disease (20 sources) Fibromyositis 07-20-2013 Episodic Other diseases of bladder and urethra (1 source) Detrusor overactivity; Translations: [Overactive bladder] Onset: 4 Chronic Other diseases of bladder and urethra (16 sources) Overactive bladder 01-13-2024 Chronic Other diseases of veins and lymphatics (1 source) Lymphangitis; Translations: [Lymphangitis] Onset: 4 Chronic Other endocrine disorders (20 sources) Polycystic ovaries; Translations: [Polycystic ovarian syndrome] 07-20-2013 Chronic Other endocrine disorders (20 sources) Polycystic ovary syndrome; Translations: [Polycystic ovarian syndrome] Onset: 2 02-16-2019 Chronic Other endocrine disorders (5 sources) Polycystic ovary; Translations: [Polycystic ovarian syndrome] 07-09-2008 Chronic Other gastrointestinal disorders (20 sources) Irritable bowel syndrome; Translations: [Irritable bowel syndrome without diarrhea] Resolved: 9 04-20-2016 Chronic Other gastrointestinal disorders (5 sources) History of bariatric surgical procedure; Translations: [Bariatric surgery status] Episodic Other gastrointestinal disorders (3 sources) Diarrhea; Translations: [Diarrhea, unspecified] Onset: 3 Episodic Other gastrointestinal disorders (1 source) Diarrhea, unspecified Episodic Other gastrointestinal disorders (6 sources) Loose stool 09-12-2024 Episodic Other inflammatory condition of skin (17 sources) Intertrigo 06-23-2021 Episodic Other lower respiratory disease (17 sources) Dyspnea on exertion 09-15-2020 Episodic Other lower respiratory disease (20 sources) Lung mass 02-27-2019 Episodic Other lower respiratory disease (2 sources) Dyspnea; Translations: [Dyspnea, unspecified] Onset: 2 Episodic Other lower respiratory disease (1 source) Acute lower respiratory tract infection; Translations: [Unspecified acute lower respiratory infection] Onset: 4 Episodic Other nervous system disorders (17 sources) 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 Other nervous system disorders (20 sources) Chronic pain syndrome; Translations: [Chronic pain syndrome] Onset: 6 04-20-2016 Chronic Other nervous system disorders (16 sources) Chronic pain; Translations: [Other chronic pain] 03-18-2024 Chronic Other nervous system disorders (20 sources) Benign intracranial hypertension; Translations: [Benign intracranial hypertension] Onset: 4 12-16-2023 Chronic Other nervous system disorders (20 sources) Disorder of brain; Translations: [Disorder of brain, unspecified] Onset: 4 08-29-2023 Chronic Other nervous system disorders (1 source) Disorder of right sciatic nerve 12-11-2024 Chronic Other non-traumatic joint disorders (17 sources) [...] nutritional; endocrine; and metabolic disorders (20 sources) Obesity; Translations: [Obesity, unspecified] Onset: 9 [...] Chronic Other nutritional; endocrine; and metabolic disorders (4 sources) Obesity caused by energy imbalance 09-12-2024 Chronic Other nutritional; endocrine; and metabolic disorders (17 sources) Weight loss 09-01-2020 Episodic Other skin disorders (17 sources) Swelling of hand 02-11-2020 Episodic Other skin disorders (3 sources) Hirsutism; Translations: [Hirsutism] Episodic Other skin disorders (2 sources) Sebaceous cyst of skin; Translations: [Sebaceous cyst] Onset: 4 Episodic Other skin disorders (20 sources) Infection of sebaceous cyst 12-09-2023 Episodic Other upper respiratory disease (1 source) Allergic rhinitis due to pollen; Translations: [Allergic rhinitis due to pollen] Chronic Other upper respiratory infections (20 sources) Bacterial sinusitis; Translations: [Chronic sinusitis] Onset: 4 07-02-2021 Chronic Other upper respiratory infections (2 sources) Acute pharyngitis; Translations: [Acute pharyngitis, unspecified] Onset: 4 Episodic Otitis media and related conditions (6 sources) Finding of fluid behind tympanic membrane 06-11-2024 Episodic Regional enteritis and ulcerative colitis (20 sources) Crohn's disease, unspecified, without complications; Translations: [Crohn's disease] Onset: 9 07-20-2013 Chronic Rehabilitation care; fitting of prostheses; and adjustment of devices (20 sources) Patient encounter status; Translations: [Encounter for [...] of mental health and substance abuse codes (20 sources) Ex-smoker; Translations: [Personal history of nicotine dependence] 04-20-2016 Episodic Spondylosis; intervertebral disc disorders; other back problems (20 sources) Prolapsed lumbar intervertebral disc; Translations: [Other intervertebral disc displacement, lumbar region] Onset: 6 04-20-2016 Chronic Spondylosis; intervertebral disc disorders; other back problems (20 sources) Low back pain; Translations: [Spinal stenosis] Onset: 5 09-26-2019 Episodic Substance-related disorders (1 source) Tobacco [...] disease (20 sources) Fibromyalgia; Translations: [Fibromyalgia] Onset: 11-06-2015 02-27-2019 Episodic Other connective tissue disease (20 sources) Muscle pain; Translations: [Myalgia and myositis] Onset: 01-31-2009 08-12-2020 Episodic Other connective tissue disease (20 sources) Spasm; Translations: [Other muscle spasm] Onset: 09-27-2008 Resolved: 01-31-2009 09-26-2019 Episodic Other connective tissue disease (13 sources) Inflammatory neuropathy ; Translations: [Neuralgia and neuritis, unspecified] Onset: 01-26-2010 Resolved: 11-06-2015 11-06-2015 Episodic Other nutritional; endocrine; and metabolic disorders (20 sources) Morbid obesity; Translations: [Morbid (severe) obesity due to excess calories] Onset: 08-25-2021 Resolved: 07-09-2008 04-11-2019 Chronic Other screening for suspected conditions (not mental disorders or infectious disease) (13 sources) Coag./bleeding tests abnormal; Translations: [Abnormal coagulation profile] Onset: 07-31-2008 Resolved: 01-31-2009 01-31-2009 Episodic Skin and subcutaneous tissue infections (20 sources) Infection of skin and/or subcutaneous tissue; Translations: [Local infection of the skin and subcutaneous tissue, unspecified] Onset: 12-01-2023 Episodic Sprains and strains (20 sources) Sprain of ankle; Translations: [Sprain of unspecified ligament of unspecified ankle, initial encounter] Onset: 01-26-2010 01-26-2010 Episodic Unclassified (20 sources) Bipolar (qualifier value) 10-12-2009 Unclassified (13 sources) crohns( Confirmed ) 12-13-2009 Unclassified (20 sources) crohns 12-13-2009 Results Test Name Value Interpretation Reference Range Facility MRI Spine Lumbar w/o Contras ton 12-18-2024 MRI Spine Lumbar w/o Contrast Exam Date/Time: 12/17/2024 18:00 EDT Reason for Exam: M54.16;Pain Report IMPRESSION: MULTILEVEL DEGENERATIVE CHANGES, WITH FINDINGS GREATEST AT THE L4-L5 LEVEL. PLEASE REFER THE COMMENT. CLINICAL HISTORY: Pain, M54.16. Low back pain and right sided sciatica. COMPARISON: CT abdomen and pelvis 06/29/2024 and MRI 07/23/2017. COMMENT: Unenhanced images were obtained. Intervertebral discs from T11-T12 through L2-L3 are unremarkable. L3-L4: There is degenerative disc dehydration. There is shallow posterior disc protrusion, with minimal extrusion cephalad and caudad to the interspace. There is slight indentation of the dural sac anteriorly, minimally greater to the right of midline. There is a small focal zone of high signal intensity within the posterior aspect of the disc annulus. There is no significant spinal canal stenosis. L4-L5: There is interspace narrowing and there is degenerative disc dehydration. There are reactive signal intensity changes of the vertebral body endplates on either side of the interspace. There is a small Schmorl's node of the inferior endplate of L4. There is posterior marginal hypertrophic spurring of vertebral bodies, contributing to anterior extradural defect. There is posterior disc protrusion, with minimal extrusion cephalad and caudad to the interspace. There is indentation of the dural sac anteriorly, slightly greater to the left of midline. There are signal intensity changes in subcutaneous fatty tissue posterior to the L4 spinous process, consistent with scarring from prior surgery, without specific MRI findings to indicate the surgery that was performed. There are bilateral hypertrophic facet arthritic changes and there is hypertrophy of ligamentum flava. There is asymmetrically greater indentation of the dural sac posterolaterally on the right, due to combination of medially projecting facet hypertrophic spurs and asymmetrically greater hypertrophy of ligamentum flavum. The combination of anterior and posterior findings result in severe focal spinal canal stenosis. Disc mildly protrudes into the inferior aspects of the right and left neural foramina, but with epidural fat interposed between disc and exiting nerve root sleeves. L5-S1: There is degenerative disc dehydration. There is a small Schmorl's node of the inferior endplate of L4-L5, with surrounding reactive signal intensity change. There is posterior marginal hypertrophic spurring of vertebral bodies. There is posterior disc protrusion, greatest in the midline, and abutting but not deforming the dural sac in the midline. There are mild hypertrophic facet arthritic changes, that do not deform the dural sac. The spinal canal remains capacious. Disc protrudes into the inferior aspect of the left neural foramen, abutting the undersurface of the exiting left nerve root sleeve. Hypertrophy of the left superior facet of S1 also contributes to neural foraminal stenosis at L5-S1 on the left. No intradural lesion is noted. The conus medullaris is unremarkable. The vertebral bodies are maintained in height. Report Ordering Provider: Irasema Zacarias FINAL REPORT Dictated: 12/18/2024 3:46 pm Stan Clancy M.D. Signed (Electronic Signature): 12/18/2024 3:46 pm Signed by: Stan Clancy M.D. Transcribed by: ABBY Technologist: [facility] Ambulatory Visit Summaryon 0 12-11-2024 Ambulatory Visit Summary Ambulatory Visit Summary AL[place] DELIA PEARL :1985 Visit Date:12/11/2024 Ambulatory Visit Instructions Your Diagnosis Right sided sciatica Lumbar back pain with radiculopathy affecting right lower extremity BMI 40.0-44.9, adult Morbid obesity Non-smoker These Are Your Goals Diabetes Mellitus-Improve glucose levels Interventions: Complete lab work as ordered. Increase daily exercise to 60 minutes a day. Review education pamphlets/books. Take a fasting glucose every morning. Obesity-Lose weight current weight 286.2 Interventions: Increase daily exercise to 60 minutes a day Make better food choices. Review balance diet pamphlet. Chronic pain-decrease back pain. Interventions: Continue with appointments at [facility]. Increase daily exercise Lose weight Take Medications as Prescribed Your Care Team Attending Physician - Irasema Love Primary Care Physician - Irasema Love This Is Your Medications List Misc Prescription (Nebulizer Machine) Misc Prescription (Nebulizer Tubing and Mouthpiece Kit) Misc Prescription (Nebulizer and supplies) Misc Prescription (Test strips-True Metrix) Misc Prescription (lancets) Misc Prescription (na) albuterol (Albuterol (Eqv-ProAir HFA) 90 mcg/inh inhalation aerosol) albuterol (albuterol 0.083% Inh Padma 3 mL) brexpiprazole (Rexulti 3 mg oral tablet) bupropion-dextromethorphan (Auvelity 45 mg-105 mg oral tablet, extended release) busPIRone (busPIRone 15 mg Tab) cholecalciferol (cholecalciferol 50,000 intl units oral capsule) diclofenac topical (Voltaren Gel 1% Gel) ferrous sulfate (ferrous sulfate 325 mg oral enteric coated tablet) fluticasone nasal (Flonase 0.05 mg/inh [place]) galcanezumab ([employer] Prefilled Pen 120 mg/mL subcutaneous solution) hydrOXYzine (hydrOXYzine pamoate 25 mg Cap) lidocaine topical (lidocaine Top 5% film Patch) nystatin topical (nystatin Top 100,000 units/g Crm 15 gram) omeprazole (omeprazole 40 mg Cap-DR) ondansetron (Zofran 4 mg Tab) predniSONE (predniSONE 20 mg Tab) pregabalin (pregabalin 25 mg Cap) tirzepatide (Mounjaro) tizanidine (tiZANidine 4 mg Tab) trazodone (traZODONE 150 mg Tab) ubrogepant (Ubrelvy 100 mg oral tablet) verapamil (verapamil 120 mg ER Tab) Procedures Performed Colonoscopy (09/26/2024), Esophagogastroduodenoscopy (09/26/2024), Cyst of breast (12/21/2023), Colonoscopy (02/01/2018), EGD & Colonoscopy (06/01/2016), EGD & Colooscopy (07/31/2014), Colonoscopy (04/28/2012), Colonoscopy, Decompression of lumbar spine, laproscopy x3, Tonsillectomy. Discharge Vitals Heart Rate (Peripheral) 74 Blood Pressure 124/82 Height 175.0 cm Height 69 in Weight 134.2 kg Weight 295.86 lb BMI 43.82 What to do next Scheduled Follow-Up Appointments Tuesday 10:45 AM EDT Where: Physical Therapy Tuesday 10:00 AM EDT Where: Physical Therapy Tuesday 8:00 AM EDT Where: Physical Therapy Tuesday2025 11:00 AM EDT Where: [facility] [address], [place] [address]- Someone Will Contact You Regarding These Appointments [facility] External Ambulatory Referral, Other Referral, 12/11/24 12:31:00 EDT, Lumbar back pain with radiculopathy affecting right lower extremity Right sided sciatica Medications What How Much When Why Instructions Unchanged albuterol (Albuterol (Eqv-ProAir HFA) 90 mcg/ inh inhalation aerosol) 2 Puffs Inhalation Every 6 hours Mild intermittent asthma Unchanged albuterol (albuterol 0.083% Inh Padma 3 mL) 0.083% - 3mL dosing units Inhalation Every 4 hours as needed for Wheezing Unchanged brexpiprazole (Rexulti 3 mg oral tablet) 1 Tablets By Mouth Every day Unchanged bupropion-dextromethorphan (Auvelity 45 mg-105 mg oral tablet, extended release) 1 Tablets By Mouth 2 times a day Unchanged busPIRone (busPIRone 15 mg Tab) 1 Tablets By Mouth 3 times a day Unchanged cholecalciferol (cholecalciferol 50,000 intl units oral capsule) 2 Capsules By Mouth Every week Vitamin D deficiency Unchanged diclofenac topical (Voltaren Gel 1% Gel) 1 Application Topical 4 times a day as needed for for pain Lumbar back pain with radiculopathy affecting right lower extremity Unchanged ferrous sulfate (ferrous sulfate 325 mg oral enteric coated tablet) 2 Tablets By Mouth Every other day Iron deficiency anemia Unchanged fluticasone nasal (Flonase 0.05 mg/ inh [place]) 1 Sprays Nasal Inhalation 2 times a day Sinusitis Fluid level behind tympanic membrane of both ears BMI 40.0-44.9, adult Non-smoker each nostril Unchanged galcanezumab (Emgality Prefilled Pen 120 mg/ mL subcutaneous solution) Subcutaneous Once a month Unchanged hydrOXYzine (hydrOXYzine pamoate 25 mg Cap) 1 Capsules By Mouth As needed for as needed for anxiety TAKE 1 CAPSULE BY MOUTH EVERY 6 HOURS NEEDED FOR ANXIETY Unchanged lido (more content not included)... Normal [facility] Family Medicine Office/Clini c Noteon 12-11-2024 Family Medicine Office/Clinic Note Family Medicine Office/Clinic Note Chief Complaint Back pain HPI Staff Pt is here today with c/o continued mid back pain with radiation down the right leg. She was evaluate at [facility] ED on 12/06 for this, states she was given a Toradol injection and prescribed Oxycodone and Prednisone. She has has not taken the Oxycodone, she is currently still taking the Prednisone. Pt is also still in PT for her back, going 2 days a wk. Pt would like to discuss further workup with an MRI. History of Present Illness Alma Delia is a 39 yo female presenting today for right sided leg pain and numbness Pt in ED at [facility] - dx right sciatica, tx with toradol IM, Rx for oxycodone and prednisone. Pt still taking prednisone and is PT 2x/week for back pain as well. Pt has also been taking tizanidine. Pt reports small improvement but feels like it's creeping back. She had back surgery with Dr. Marilia rivera in 2015. XR spine in July 2024 - Straightening of the lumbar lordosis. Lumbar vertebral body heights are maintained. Mild intervertebral disc height loss at L4-L5 and L5-S1. Facet arthropathy at L4-L5 and L5-S1. Mild degenerative endplate spurring of the mid and lower lumbar spine. No acute fracture. No spondylolysis or spondylolisthesis. CT abd/pelvis 09/24/24: Bones: No acute osseous findings. Degenerative changes especially at L4-L5. Pain is toelrable 09/15 at this time. Declines toradol injection at this time. Physical Exam Vitals & Measurements HR: 74(Peripheral) BP: 124/82 SpO2: 97% HT: 69 in HT: 175.0 cm WT: 295.86 lb WT: 134.2 kg BMI: 43.82 General: Well developed, well nourished, in no [...] Mouth: mucous membranes pink, moist and intact. [place] posterior oropharynx, no palatal inflammation, uvula midline, [...] x3. Normal mood and affect Assessment/Plan 1. Right sided sciatica (M54.31: Sciatica, right side) finish prednisone as prescribed Use tizanidine PRN as prescribed continue PT 2x/week f/u with neurospine specialist - Dr. Pastor - referral submitted Recommended using heat instead of ice. Encouraged to continue doing stretches, as tolerated. Ordered: [facility] External Ambulatory Referral MRI Spine Lumbar w/o Contrast 2. Lumbar back pain with radiculopathy affecting right lower extremity (M54.16: Radiculopathy, lumbar region) MRI spine lumbar spine ordered d/t ongoing pain despite XR spine and CT noted above referred to Dr. Pastor for evaluation/tx finish prednisone as prescribed Use tizanidine PRN as prescribed continue PT 2x/week f/u with neurospine spec Ordered: [facility] External Ambulatory Referral MRI Spine Lumbar w/o Contrast 3. BMI 40.0-44.9, adult (Z68.41: Body mass index [BMI] 40.0-44.9, adult) The standard range for ages 18 and older is >=18.5 and < 25 kg/m2. Your BMI today was above this range, this falls in the overweight to obese category and there are medical benefits to weight loss. We can offer counselling, referral, and/or medical support in addressing this problem. Your BMI and weight management will be followed at subsequent visits. 4. Morbid obesity (E66.01: Morbid (severe) obesity due to excess calories) Reviewed importance of making a lifestyle change regarding dietary choices. Start WW, G-BOMBS or MIND (Mediterranean-DASH intervention for neurodegenerative diet) diet and focus on portion control and only eating when truly hungry and stopping when 2/3 satiety. monitor cooking habits/avoid fast food and fried/fatty foods/seed oils. Encouraged routine cardio exercise with Goal: 3-5x/week for 30-45 minutes. Start out slow and increase to achieve your goals. Will m (more content not included)... Normal [facility] Comment on above: Result Comment: Elec tronically Signed By: Rell FERRER, Irasema Medley\.br\Date and Time Signed: 12/11/24 12:35 EDT ED Note-Physicianon 08-01-20 25 ED Note-Physician ED Note-Physician Basic Information Time Seen: Tim GUERREROLance 12/06/2024 18:41 Chief Complaint pt reports back pain, has hx of pain since august. states she has PT for it. states been in a flare recently. also reports anxiety. History of Present Illness 39-year-old female comes to the ED for evaluation of back pain. She has a history of chronic back pain. She has had previous lumbar decompression. She been having worsening pain the last couple of months. She is currently in physical therapy. No new trauma to the area. No acute weakness or paresthesias. No fever, chills, nausea or vomiting. She is currently on muscle relaxers. Review of Systems A 10 point review of systems is negative except as noted above. Medical and Surgical History: Reviewed and noted Social history: Lives at home Tobacco: Denies Physical Exam Vitals & Measurements T: 36 ???C(Tympanic) HR: 78(Peripheral) RR: 14 BP: 117/80 SpO2: 98% HT: 175 cm WT: 134 kg BMI: 43.76 Nurses notes and vital signs reviewed and patient is not hypoxic. General: The patient appears well, resting comfortably. Skin: Warm, dry. Head: Atraumatic. Neck: No JVD. Eye: Normal conjunctiva. Ears, Nose, Mouth, and Throat: Moist mucous membranes. Cardiovascular: Strong distal pulses. Chest wall: Respiratory: Respirations are nonlabored. Back: Diffuse tenderness over the lumbar region. No bony instability or step-offs. No swelling, ecchymosis or erythema. No area of point tenderness. Full range of motion. No evidence of lower extremity neurovascular compromise. No CVA tenderness noted bilaterally. Musculoskeletal: Normal ROM with no gross deformity. Patient able to ambulate without any significant difficulty. Gastrointestinal: Soft and nontender. Urological: Neurological: Awake and alert. No focal deficits. Follows commands. Psychiatric: Cooperative. Medical Decision Making Patient acute on chronic back pain. No evidence of neurovascular compromise. She has had no recent trauma for imaging. Treatment options are discussed, and ultimately she is discharged home with prednisone and Percocet. She is to follow-up with her PCP. Patient was encouraged to return to the ED if symptoms worsen or change. Assessment/Plan Back pain (M54.9: Dorsalgia, unspecified) Ordered: acetaminophen-oxycodone, 1 tab(s), Oral, q6hr as needed for pain for 3 day(s), 15 tab(s), Refill(s) 0, [facility] #[id number], 175, cm, 12/06/24 17:34:00 EDT, Height/Length Dosing, 134, kg, 12/06/24 17:34:00 EDT, Weight Dosing Orders: predniSONE, 60 mg = 3 tab(s), Oral, Daily, X 7 day(s), # 21 tab(s), Refills(s) 0, Pharmacy: [facility] #[id number], 175, cm, 12/06/24 17:34:00 EDT, Height/Length Dosing, 134, kg, 12/06/24 17:34:00 EDT, Weight Dosing Disposition Plan Patient Discharge Condition Disposition: Discharged home Condition: Improved and stable Counseled: Patient and/or family were counseled to workup, results, treatment plan and follow-up recommendations Discharge Prescription List Prescriptions Percocet 5 mg-325 mg oral tablet, 1 tab(s), Oral, q6hr, PRN predniSONE 20 mg Tab, 60 mg= 3 tab(s), Oral, Daily Follow-up With When Contact Information Irasema marley In 3 days 12/09/2024 EDT [address] [place] [id number] [facility] (1) Additional Instructions: Patient Education Chronic Back Pain Attestation I performed a substantive part of the MDM during the patient???s E/M visit. I personally made or approved the documented management plan and acknowledge its risk of complications. (Independent Interpretation) My (EKG/X-Ray/US/CT) interpretation as above. (Discussion) Management/test interpretation discussed with APC. This report was transcribed using voice recognition software. Every effort was made to ensure accuracy, however, inadvertently computerized living skills advisor mistakes may be present. Appropriate healthcare PPE was used in evaluating this patient. Problem List/Past Medical History Ongoing Amenorrhea Bipolar disorder, current episode depressed, moderate Chronic GERD Crohn disease Dysmenorrhea Factor V Leiden Fibromyalgia Galactorrhea in female GERD (gastroesophageal reflux disease) Infected sebaceous cyst Iron deficiency anemia Loose stools Lumbar back pain with radiculopathy affecting right lower extremity Lung nodule Migraine Mild intermittent asthma Mixed hyperlipidemia Mixed incontinence Non-smoker OAB (overactive bladder) DIETER (obstructive sleep apnea) PCOS (polycystic ovarian syndrome) Type 2 diabetes mellitus with hyperlipidemia Vitamin D deficiency Historical Bipolar crohns Depression Diabetes mellitus Fibromyalgia Gastroesophageal reflux disease Migraine Procedure/Surgical History Colonoscopy (09/26/2024), Esophagogastroduodenoscopy (09/26/2024), Cyst of breast (12/21/2023), Colonoscopy (02/01/2018), EGD & Colonoscopy (06/01/2016), EGD & Colooscopy (07/31/2014), Co (more content not included)... Normal [facility] Comment on above: Result Comment: Elec tronically Signed By: Lance Dumont PA-C\.br\Date and Time Signed: 12/06/24 18:52 EDT\.br\Electronically Co-Signed By: Roshan Briceno MD\.br\Date and Time Co-Signed: 12/07/24 10:49 EDT ED Clinical Summaryon 2024 ED Clinical Summary ED Clinical Summary [place] [id number] ED Clinical Summary Person Information Name: ALMA DELIA PEARL [facility] Age: 39 Years : 1985 Sex: Female Language: Nigerian PCP: Irasema Love Marital Status: Visit Id: Visit Reason: Medical problem - minor; Anxiety; Back pain; LOWER BACK PAIN Speciality: Acuity: 5 Enc Type: Emergency Med Service: Emergency Arrival: 12/06/2024 17:23:23 Discharge: 12/06/2024 19:18:15 LOS: 000 01:55 Checkin: 12/06/2024 17:23:23 Checkout: 12/06/2024 19:18:15 Dispo Type: Home (Routine DC) EVENTS: Event Name Event Status Request Date/Time Start Date/Time Complete Date/Time Arrive Complete 12/06/2024 17:23:23 12/06/2024 17:23:23 12/06/2024 17:23:23 Document Home Meds Request 12/06/2024 17:23:23 Triage Complete 12/06/2024 17:23:23 12/06/2024 17:34:56 12/06/2024 17:34:56 Registration Complete 12/06/2024 17:29:41 12/06/2024 17:29:41 12/06/2024 17:29:41 Reg Complete Request 12/06/2024 17:29:41 Reg Bed Request Complete 12/06/2024 17:29:41 12/06/2024 17:29:41 12/06/2024 17:29:41 Bed Assign Complete 12/06/2024 17:37:49 12/06/2024 17:37:49 12/06/2024 17:37:49 Dr Exam Complete 12/06/2024 17:37:49 12/06/2024 18:41:40 12/06/2024 18:41:40 RN Exam Complete 12/06/2024 17:37:49 12/06/2024 17:39:37 12/06/2024 17:39:37 Registration Request 12/06/2024 18:41:40 Dr Exam Complete 12/06/2024 18:48:16 12/06/2024 18:48:16 12/06/2024 18:48:16 Discharge Complete 12/06/2024 18:49:43 12/06/2024 19:18:19 12/06/2024 19:18:19 Meds Admin Complete 12/06/2024 19:01:53 12/06/2024 19:10:31 Transfer Complete 12/06/2024 19:18:19 12/06/2024 19:18:19 12/06/2024 19:18:19 ADDRESS: [address] [place] [phone] PHYS DOC NOTES: MEDICAL INFORMATION: Prescriptions Given: New Medications [id number], [address] [place], [place] [phone], [phone] acetaminophen-oxycodone (Percocet 5 mg-325 mg oral tablet) 1 Tablets By Mouth every 6 hours as needed as needed for pain for 3 Days. Refills: 0. predniSONE (predniSONE 20 mg Tab) 3 Tablets By Mouth every day for 7 Days. Refills: 0. Medications to Continue with No Changes Other Medications albuterol (Albuterol (Eqv-ProAir HFA) 90 mcg/inh inhalation aerosol) 2 Puffs Inhalation every 6 hours. Refills: 4. albuterol (albuterol 0.083% Inh Padma 3 mL) 0.083% - 3mL dosing units Inhalation every 4 hours as needed Wheezing. Refills: 11. brexpiprazole (Rexulti 3 mg oral tablet) 1 Tablets By Mouth every day. bupropion-dextromethorphan (Auvelity 45 mg-105 mg oral tablet, extended release) 1 Tablets By Mouth 2 times a day. busPIRone (busPIRone 15 mg Tab) 1 Tablets By Mouth 3 times a day. cholecalciferol (cholecalciferol 50,000 intl units oral capsule) 2 Capsules By Mouth every week. Refills: 4. diclofenac topical (Voltaren Gel 1% Gel) 1 Application Topical 4 times a day as needed for pain. Refills: 0. ferrous sulfate (ferrous sulfate 325 mg oral enteric coated tablet) 2 Tablets By Mouth every other day. Refills: 3. fluticasone nasal (Flonase 0.05 mg/inh [place]) 1 Sprays Nasal Inhalation 2 times a day. each nostril. Refills: 5. galcanezumab (Emgality Prefilled Pen 120 mg/mL subcutaneous solution) Subcutaneous once a month. hydrOXYzine (hydrOXYzine pamoate 25 mg Cap) 1 Capsules By Mouth as needed as needed for anxiety. TAKE 1 CAPSULE BY MOUTH EVERY 6 HOURS NEEDED FOR ANXIETY. lidocaine topical (lidocaine Top 5% film Patch) 1 Patches Topical every day. apply 12 hours on and 12 hours off daily. Refills: 1. Misc Prescription (lancets) lancets test daily E11.9. [...] high or low blood sugars. Refills: 2. nystatin topical (nystatin Top 100,000 units/g Crm 15 gram) 1 Application Topical 2 times a day. Refills: 1. omeprazole (omeprazole 40 mg Cap-DR) 1 Capsules By Mouth 2 times a day. Refills: 7. ondansetron (Zofran 4 mg Tab) 1 Tablets By Mouth every 8 hours as needed Nausea/Vomiting. Refills: 0. pregabalin (pregabalin 25 mg Cap) 1 Capsules By Mouth 2 times a day. promethazine (promethazine 25 mg Tab) 1 Tablets By Mouth 3 times a day. Refills: 0. tirzepatide (Mounjaro) 5 Milligram Subcutaneous every week. Fridays- per [facility]. tizanidine (tiZANidine 4 mg Tab) 1 Tablets By Mouth every 8 hours. Refills: 0. trazodone (traZODONE 150 mg Tab) 1 Tablets By Mouth once (more content not included)... Normal [facility] ED Patient Summaryon 025 ED Patient Summary ED Patient Summary [place] [id number] Patient Discharge Instructions Person Information Name: ALMA DELIA PEARL Age: 39 Years Arrival Date: 12/06/2024 17:23:23 Discharge Diagnosis: Back pain Primary Care Physician: Irasema Love Provider Information Primary Provider: Roshan Briceno MD Advanced Manager Medical Affairs:Lance Dumont PA-C The exam and treatment you received in the Emergency Department were for an urgent problem and are not intended as complete care. It is important that you follow up with a doctor, nurse practitioner, or physician???s clinical medical assistant for ongoing care. If your symptoms [...] Instructions: With: Address: When: Irasema Zacarias [address], [address] [place] [phone] Business (1) In 3 days 12/09/2024 In the event that this physician does not participate in your insurance network, please consult with your insurance company to find a nearby participating provider. Patient Education Materials: Chronic Back Pain A MESSAGE TO ALL PATIENTS REGARDING OPIOIDS PRESCRIPTION OPIOIDS: WHAT YOU NEED TO KNOW Prescription opioids can be used to help relieve ntxwpnwa-dc-ooxfup pain and are often prescribed following a [...] as well, even when taken as directed: ??? Tolerance???meaning you might need to take more of the medication for the same pain relief ??? Physical dependence???meaning you have symptoms of withdrawal when a medication is stopped ??? Increased sensitivity to pain ??? Constipation ??? Nausea, vomiting, and dry mouth ??? Sleepiness and dizziness ??? Confusion ??? Depression ??? Low levels of testosterone that can result in lower sex drive, energy, and strength ??? Itching and sweating RISKS ARE GREATER WITH: ??? History of drug misuse, substance use disorder, or overdose ??? Mental health conditions (such as depression or anxiety) ??? Sleep apnea ??? Older age (65 years and older) ??? Avoid alcohol while taking prescription opioids. Also, unless specifically advised by your health care provider, medications to avoid include: ??? Benzodiazepines (such as Xanax or Valium) ??? Muscle relaxants (such as Soma or Flexeril) ??? Hypnotics (such as Ambien or Lunesta) ??? Other prescription opioids KNOW YOUR OPTIONS Talk to your health care provider about ways to manage your pain that don???t involve prescription opioids. Some of these options may actually work better and have fewer risks and side effects. Options may include: ??? Pain relievers such as acetaminophen, ibuprofen, and naproxen ??? Some medication that are also used for depression or seizures ??? Physical therapy and exercise ??? Cognitive behavioral therapy, a psychological, goal-directed approach, in which patients learn how to modify physical, behavioral, and emotional triggers of pain and stress. IF YOU ARE PRESCRIBED OPIOIDS FOR PAIN: ??? Never take opioids in greater amounts or more often than prescribed. ??? Follow up with your primary health care provider. o Work together to create a plan on how to manage your pain. o Talk about ways to help manage your pain that don???t involve prescription opioids. o Talk about any and all concerns and side effects. ??? Help prevent misuse and abuse o Never sell or share prescription opioids. o Never use another person???s prescription opioids. ??? Store prescription opioids in a secure place and out of reach of others (this may include visitors, children, friends, and family). ??? Safely dispose of unused prescription opioids: Find your community drug take-back program or your pharmacy mail-back program, or flush them down the toilet, following guidance from the Food and Drug Administration (www.fda.gov/Drugs/Resource sForYou). ??? Visit www.cdc.gov/drugoverdose to learn about the risks of opioids abuse and overdose. ??? If you believe you may be struggling with addiction, tell your health aged or disabled care worker and (more content not included)... Normal [facility] Result Letter Officeon 10-24 Result Letter Office Result Letter Offic e October 24, 2024 ALMA DELIA PEARL [address] [place] [address] : 1985 Below is a summary of the results of your recent colonoscopy. COLONOSCOPY WITH BIOPSY Internal hemorrhoids No polyps identified Based on your results we are recommending you repeat the procedure at the age of 45. Please contact the office with any further questions or concerns or if you wish to make an appointment. [facility] [phone] Normal [facility] Surgical Pathology Reporton 10-03-2024 Surgical Pathology Report [facility] [address] [place] [address]- Surgical Pathology Report Collected Date/Time: 09/26/2024 11:12 EDT Pathologist: Khari KURTZ PhD, Indiana Villaseñor Received Date/Time: 09/26/2024 13:59 EDT Sherif KURTZ, Lucia Gorman MD, Lucia Farooq Surgical Pathology Report - 10/03/2024 11:33 EDT - Auth (Verified) Final Diagnosis A: STOMACH, BIOPSY: - GASTRIC ANTRAL MUCOSA WITH FOVEOLAR HYPERPLASIA, COMPATIBLE WITH REACTIVE GASTROPATHY. - NO H. PYLORI MICROORGANISMS IDENTIFIED WITH IMMUNOSTAIN. B: DUODENUM, BIOPSY: - DUODENAL MUCOSA WITHIN NORMAL LIMITS. C: COLON, RANDOM BIOPSY: - COLONIC MUCOSA WITH LYMPHOID AGGREGATES, WITHIN NORMAL LIMITS. (Electronic Signature) [place] Lucia MD PhD 10/03/2024 11:33 Clinical Information Nausea, diarrhea, Crohn's disease Pre-Op Diagnosis: Nausea, diarrhea, Crohn's disease Procedure: EGD, colonoscopy Post-Op Diagnosis: 1. Hiatal hernia 2. Reflux esophagitis 3. Duodenitis 4. internal hemorrhoids 5. Status post random colon biopsies Specimen(s) Received A.Gastric biopsy B.Duodenal biopsy C.Random colon biopsy Gross Description A: Received in formalin labeled with patient name, number, and gastric biopsy are three fragments of snowden/pink tissue ranging from 0.1 cm up to 0.5 cm in greatest dimension. Specimen is entirely submitted in one cassette. B: Received in formalin labeled with patient name, number, and duodenal biopsy are multiple fragments of snowden/pink tissue ranging from less than 0.1 cm up to 0.5 cm in greatest dimension. Specimen is entirely submitted in one cassette. C: Received in formalin labeled with patient name, number, and random colon biopsy are multiple fragments of snowden/pink tissue ranging from less than 0.1 cm up to 0.6 cm in greatest dimension. Specimen is entirely submitted in one cassette. (DC) DC:[facility] Microscopic Description Microscopic examination performed unless gross only specified. Quality was accessed and acceptable. This report was transcribed using voice recognition technology and might contain unintended computerized living skills advisor errors. Surgical Pathology Report Collected Date/Time: 09/26/2024 11:12 EDT Pathologist: Khari KURTZ PhD, [place] Villaseñor Received Date/Time: 09/26/2024 13:59 EDT Lucia Gorman MD, MD, Mohamad A. Microscopic Description The use of one or more reagents in the above tests is regulated as an analyte specific reagent (ASR). The test or tests are ordered following initial H&E microscopic examination. The performance characteristics were determined by the [facility]. They have not been cleared or approved by the [place] Food and Drug Administration. The FDA has determined that such clearance or approval is not necessary. These tests are used for clinical purposes. They should not be regarded as investigational or for research. Appropriate positive and negative controls are performed and are acceptable. This report was transcribed using voice recognition technology and might contain unintended computerized living skills advisor errors. Normal [facility] Comment on above: Performed By: #### [id number] #### [facility] Laboratory [address] [place] [address] Nonvisit Note - PTon 025 Nonvisit Note - PT Nonvisit Note - PT Called and spoke with pt regarding insurance authorization for additional visits and scheduling. Pt states she will call back Tuesday to schedule. Normal [facility] Main OR Intraoperative Recor don 09-27-2024 Main OR Intraoperative Record Main OR Intraoperative Record IntraOp Document Type FT Summary Primary Physician: Lucia Gorman MD Finalized Date/Time: 09/27/24 10:33:07 Pt. Name: ALMA DELIA PEARL/Sex: 1985 Female Med Rec #: [id number] Physician: Lucia Gorman MD Financial #: [id number] Pt. Type: O Room/Bed: / Admit/Disch: 09/26/24 09:43:38 - 09/26/24 23:59:59 Institution: Case Times FT Entry 1 Patient Times In Room 09/26/24 11:03:00 Out Room 09/26/24 11:27:00 Procedure Times Start 09/26/24 11:09:00 Stop 09/26/24 11:24:00 Anesthesia Times Start 09/26/24 11:03:00 Stop 09/26/24 11:27:00 Time at [facility] 09/26/24 11:18:00 Last Modified By: Indigo WHITT, Debbie 09/26/24 11:27:30 General Comments: 1113-EGD completed/AW RN 1116-Colonoscopy started/AW RN Case Attendance FT Entry 1 Entry 2 Entry 3 Case Attendee Cristóbal LEONARDO CRNA, Queen Indigo WHITT, Meghan Dorantes Role Performed TOPPIECE CHOPPER Clinical Laboratory Aide - Primary Staff - Other Time In 09/26/24 11:03:00 09/26/24 11:03:00 09/26/24 11:03:00 Time Out 09/26/24 11:27:00 09/26/24 11:27:00 09/26/24 11:27:00 Procedure EGD AND COLONOSCOPY(.) EGD AND COLONOSCOPY(.) EGD AND COLONOSCOPY(.) Comments Dr. Osborne supervising help in room Last Modified By: Indigo WHITT, Debbie Sood RN, Debbie Sood RN, Debbie 09/26/24 11:27:32 09/26/24 11:27:32 09/26/24 11:27:32 Entry 4 Entry 5 Case Attendee Sherif KURTZ, Vance Tapia Role Performed Surgeon - Primary Scrub - Primary Time In 09/26/24 11:03:00 09/26/24 11:03:00 Time Out 09/26/24 11:27:00 09/26/24 11:27:00 Procedure EGD AND COLONOSCOPY(.) EGD AND COLONOSCOPY(.) Comments Last Modified By: Indigo WHITT, Debbie Sood RN, Debbie 09/26/24 11:27:32 09/26/24 11:27:32 Perioperative Protocols FT Pre-Care Text: Implements protective measures prior to operative or invasive procedure, confirms identity before the operative or invasive procedure, verifies operative procedure, surgical site, and laterality Entry 1 Procedure(s) EGD AND COLONOSCOPY(.) Patient Identity Birthday, ID Band Verified (select at Check, Patient least 2): Participation Consents / H and P Anesthesia Consent, Operative Site N/A Verified H&P, Surgery/Procedure Marking Verified Consent Surgical Site No Laterality Verified n/a Verified Procedure Verified Yes Correct Patient Yes Position Verified Availability Equipment, Medication Prep Dry n/a Verified (If Applicable) PreOp Antibiotic No Time Out Cristóbal LEONARDO CRNA, Queen Given Participants N., Workman RN, Ziyad Lewis Kirstyn K, Mouchli MD, Lucia Castillo, Vance Acosta Time Out Complete 09/26/24 11:05:00 Outcomes Met? Yes Last Modified By: Debbie Sood RN 09/26/24 11:07:10 Post-Care Text: The patient is free from signs and symptoms of injury caused by extraneous objects Allergy Information FT Pre-Care Text: Verifies allergies Entry 1 Allergies Reviewed? Yes Allergies Reviewed Self/Patient With Outcomes Met? Yes Last Modified By: Debbie Sood RN 09/26/24 11:07:18 Post-Care Text: The patient received appropriate medication(s) safely administered during the perioperative period Surgical Procedures FT Entry 1 Procedure Description Procedure EGD AND COLONOSCOPY Modifiers . Surgeon Description EGD with duodenal and gastric biopsies. Colonoscopy with random colon biopsy Primary Procedure Yes Primary Surgeon Sherif KURTZ, Lucia Castillo Start 09/26/24 11:09:00 Stop 09/26/24 11:24:00 Anesthesia Type General Surgical Service Gastroenterology Wound Class 2 - Clean-Contaminated Last Modified By: Debbie Sood RN 09/26/24 11:30:48 General Case Data FT Pre-Care Text: Classifies surgical wound, implements aseptic technique, initiates traffic control Entry 1 Case Information OR ENDO 1 FT Case Level Level 2 Wound Class 2 - Clean-Contaminated Specialty Gastroenterology ASA Class 3 Preop Diagnosis Nausea, diarrhea, Postop Same As Preop No crohn's disease Postop Diagnosis EGD-duodenitis, hiatal Outcomes Met? Yes hernia, esophagitis. Normal Colonoscopy Last Modified By: Debbie Sood RN 09/26/24 11:27:47 Post-Care Text: The patient is free from signs and symptoms of infection Skin Assessment (Pre Procedure) FT Pre-Care Text: Implements protective measures to prevent skin/ tissue injury due to thermal or mechanical sources Evaluates for signs and symptoms of physical injury to skin and tissue Entry 1 Skin Integrity Intact, [place], Warm, & Skin Abnormality No Dry Outcomes Met? Yes Last Modified By: Debbie Sood RN 09/26/24 11:07:49 Post-Care Text: The patient is free from signs and symptoms of injury caused by extraneous objects Patient Positioning FT Pre-Care Text: Identifies physical alterations that require additional precautions for procedure-specific positioning, verifies presence of prosthetics or corrective devices, positions the patient, evaluates the arelis (more content not included)... Normal [facility] Calprotectin, Fecalon 2024 Calprotectin (Stl) [Mass/Mass] 13 mcg/gm Invalid Interpretation Code 0-120 [facility] Comment on above: Result Comment: Conc entration Interpretation Follow-Up < 5 - 50 ug/g Normal None >50 -120 ug/g Borderline Re-evaluate in 4-6 weeks >120 ug/g Abnormal Repeat as clinically indicated Performed at: [facility] [address] [id number] MD Ata Agee Performed By: #### 1 [id number] #### [facility] Laboratory [address] [place] [address] Discharge Instructionson Discharge Instructions Discharge Instruc tions DAE ALMA DELIA Kasi :1985 Visit Date:09/26/2024 Inpatient Discharge Instructions Your Care Team Admitting Physician - Lucia Gorman MD Referring Physician - Lucia Gorman MD Reason for Your Visit RECTAL BLEEDING, CROHN'S DISEASE, LOOSE STOOLS, NAUSEA Your Diagnosis Chronic diarrhea Hemorrhoids, internal Hernia, hiatal Tests Performed Pathology Tissue Exam -- Results Pending -- Please visit your patient portal for your results or contact your primary care physician. This Is Your Medications List Misc Prescription (Nebulizer Machine) Misc Prescription (Nebulizer Tubing and Mouthpiece Kit) Misc Prescription (Nebulizer and supplies) Misc Prescription (Test strips-True Metrix) Misc Prescription (lancets) Misc Prescription (na) albuterol (Albuterol (Eqv-ProAir HFA) 90 mcg/inh inhalation aerosol) albuterol (albuterol 0.083% Inh Padma 3 mL) brexpiprazole (Rexulti 3 mg oral tablet) bupropion-dextromethorphan (Auvelity 45 mg-105 mg oral tablet, extended release) busPIRone (busPIRone 15 mg Tab) cholecalciferol (cholecalciferol 50,000 intl units oral capsule) diclofenac topical (Voltaren Gel 1% Gel) ferrous sulfate (ferrous sulfate 325 mg oral enteric coated tablet) fluticasone nasal (Flonase 0.05 mg/inh [place]) galcanezumab (Emgality Prefilled Pen 120 mg/mL subcutaneous solution) hydrOXYzine (hydrOXYzine pamoate 25 mg Cap) lidocaine topical (lidocaine Top 5% film Patch) nystatin topical (nystatin Top 100,000 units/g Crm 15 gram) omeprazole (omeprazole 40 mg Cap-DR) ondansetron (Zofran 4 mg Tab) pregabalin (pregabalin 25 mg Cap) promethazine (promethazine 25 mg Tab) tirzepatide (Mounjaro) tizanidine (tiZANidine 4 mg Tab) trazodone (traZODONE 150 mg Tab) ubrogepant (Ubrelvy 100 mg oral tablet) verapamil (verapamil 120 mg ER Tab) Procedure History Cyst of breast (12/21/2023), Colonoscopy (02/01/2018), EGD & Colonoscopy (06/01/2016), EGD & Colooscopy (07/31/2014), Colonoscopy (04/28/2012), Colonoscopy, Decompression of lumbar spine, laproscopy x3, Tonsillectomy. What to do next Instructions From Your Doctor No qualifying data available. Previously Scheduled Follow-Up Appointments Tuesday 10:00 AM EDT With: Irasema Lvoe Where: [facility] [address], [facility] [place] [address]- [id number] 11:00 AM EDT With: Where: [facility] [address], [place] [address]- New Follow Up Appointments after Discharge Follow Up with Sherif KURTZ, KOFI Agudelo, MED When: Comments: Call for any problems. Call the office in about one week to schedule a follow up appointment to go over results. Where: [address], [address] [place] [address] [phone] Medications What How Much When Why Instructions Next Dose Unchanged albuterol (Albuterol (Eqv-ProAir HFA) 90 mcg/ inh inhalation aerosol) 2 Puffs Inhalation Every 6 hours Mild intermittent asthma Unchanged albuterol (albuterol 0.083% Inh Padma 3 mL) 0.083% - 3mL dosing units Inhalation Every 4 hours as needed for Wheezing Unchanged brexpiprazole (Rexulti 3 mg oral tablet) 1 Tablets By Mouth Every day Unchanged bupropion-dextromethorphan (Auvelity 45 mg-105 mg oral tablet, extended release) 1 Tablets By Mouth 2 times a day Unchanged busPIRone (busPIRone 15 mg Tab) 1 Tablets By Mouth 3 times a day Unchanged cholecalciferol (cholecalciferol 50,000 intl units oral capsule) 2 Capsules By Mouth Every week Vitamin D deficiency Unchanged diclofenac topical (Voltaren Gel 1% Gel) 1 Application Topical 4 times a day as needed for for pain Lumbar back pain with radiculopathy affecting right lower extremity Unchanged ferrous sulfate (ferrous sulfate 325 mg oral enteric coated tablet) 2 Tablets By Mouth Every other day Iron deficiency anemia Unchanged fluticasone nasal (Flonase 0.05 mg/ inh [place]) 1 Sprays Nasal Inhalation 2 times a day Sinusitis Fluid level behind tympanic membrane of both ears BMI 40.0-44.9, adult Non-smoker each nostril Unchanged galcanezumab (Emgality Prefilled Pen 120 mg/ mL subcutaneous solution) Subcutaneous Once a month Unchanged hydrOXYzine (hydrOXYzine pamoate 25 mg Cap) 1 Capsules By Mouth As needed for as needed for anxiety TAKE 1 CAPSULE BY MOUTH EVERY 6 HOURS NEEDED FOR ANXIETY Unchanged lidocaine topical (lidocaine Top 5% film Patch) 1 Patches Topical Every day apply 12 hours on and 12 hours off daily Unchanged Misc Prescription (lancets) See instructions lancets test daily E11.9 Unchanged Misc Prescription (na) See instructions provide patient with lancets and glucometer strips. Check glucose daily. Unchanged Misc Prescription (Nebulizer and supplies) See instructions Pt requires nebulizer and tubing/ supplies DX: J45.909 Unchanged Misc Prescription (Nebulizer Machine) See instructio (more content not included)... Normal [facility] Comment on above: Result Comment: Elec tronically Signed By: Emma Coates\Date and Time Signed: 09/26/24 11:33 EDT H&P Updateon 09-26-2024 H&P Update H&P Update Patient: ALMA DELIA PEARL [facility]: [id number] Age: 39 years Sex: Female : 1985 Associated Diagnoses: None Author: Lucia Gorman MD Preoperative Information Chief compliant/Indication for procedure: Nausea, diarrhea, and CD Chief Complaint as above Review of Systems All systems reviewed, negative except as mentioned above Health Status Allergies: Allergic Reactions (Selected) Severity Not Documented Codeine- Childhood. Eggs- Vomiting. Imitrex- Chest tightness, breathing and unknown. Latex- Hives and rash. Latuda- Intolerance and agitation. Morphine- Sob and rash. Penicillin- Childhood. Pyridium- Pain. Nonallergic Reactions (Selected) Severity Not Documented Dairy- Unknown. Current medications: (Selected) Inpatient Medications Ordered Lactated Ringers IV Padma 1000 mL 1,000 mL: 1,000 mL, IV, 100 mL/hr, Routine, Start date 09/26/24 10:12:00 EDT, 10 hour(s), Total volume (mL): 1,000, 134.9 kg, 2.56, m2 Sodium Chloride 0.9% IV Padma 1000 mL 1,000 mL: 1,000 mL, IV, 20 mL/hr, Routine, Start date 09/26/24 6:46:00 EDT, 50 hour(s), Total volume (mL): 1,000, 134.9 kg, 2.56, m2 Zofran 4 mg/2 mL Injection: 4 mg = 2 mL, Injection, IV Push, Once PRN Nausea/Vomiting, Routine, Start date 09/26/24 10:12:00 EDT, 09/26/24 10:12:00 EDT Prescriptions Prescribed Albuterol (Eqv-ProAir HFA) 90 mcg/inh inhalation aerosol: 2 puff(s), Inhalation, q6hr, 18 gm, Refill(s) 4, [facility] #[id number], 175, cm, 08/14/24 11:49:00 EDT, Height/Length Dosing, 135, kg, 08/14/24 11:49:00 EDT, Weight Dosing Flonase 0.05 mg/inh [place]: 1 spray(s), Nasal, BID, 16 gram, Refill(s) 5, each nostril, [facility] #[id number], 175.2, cm, 06/11/24 14:27:00 EST, Height/Length Dosing, 136.9, kg, 06/11/24 14:27:00 EST, Weight Dosing Nebulizer Machine: Nebulizer Machine, See Instructions, 1 EA, 0, Nebulizer Machine, [facility] #[id number], Supply, 175, cm, 07/02/21 10:47:00 EST, Height/Length Dosing, 133, kg, 07/02/21 10:47:00 EST, Weight Dosing Nebulizer Tubing and Mouthpiece Kit: Nebulizer Tubing and Mouthpiece Kit, See Instructions, 1 kit(s), 0, Nebulizer Tubing and Mouthpiece Kit, Supply Nebulizer and supplies: Nebulizer and supplies, See Instructions, 1 EA, 0, Pt requires nebulizer and tubing/supplies DX: J45.909, Supply Test strips-True Metrix: Test strips-True Metrix, See Instructions, 100 EA, 2, Blood glucose test strips. Use daily to test fasting blood sugars and as needed for symptomatic high or low blood sugars, [facility], Supply, 175, cm, 09/15/20 13:52:00 EDT, Hei... Voltaren Gel 1% Gel: 1 carlo, Topical, QID for pain, 100 gram, Refill(s) 0, [facility] #[id number], 175, cm, 08/14/24 11:49:00 EDT, Height/Length Dosing, 135, kg, 08/14/24 11:49:00 EDT, Weight Dosing Zofran 4 mg Tab: 4 mg = 1 tab(s), Oral, q8hr, PRN Nausea/Vomiting, # 12 tab(s), Refills(s) 0 albuterol 0.083% Inh Padma 3 mL: 0.083% - 3mL dosing units, Inhalation, q4hr Wheezing, 30 EA, Refill(s) 11, [facility] #[id number], 175, cm, 08/14/24 11:49:00 EDT, Height/Length Dosing, 135, kg, 08/14/24 11:49:00 EDT, Weight Dosing cholecalciferol 50,000 intl units oral capsule: 2,500 mcg = 2 cap(s), Oral, qWeek, # 12 cap(s), Refills(s) 2, Pharmacy: [facility] #[id number], 175, cm, 08/14/24 11:49:00 EDT, Height/Length Dosing, 135, kg, 08/14/24 11:49:00 EDT, Weight Dosing ferrous sulfate 325 mg oral enteric coated tablet: 650 mg = 2 tab(s), Oral, Every other day, # 45 tab(s), Refills(s) 3, Pharmacy: [facility] #[id number], 175, cm, 08/14/24 11:49:00 EDT, Height/Length Dosing, 135, kg, 08/14/24 11:49:00 EDT, Weight Dosing lancets: lancets, See Instructions, 100 EA, 3, lancets test daily E11.9, [facility] #[id number], Supply, 175, cm, 04/16/20 15:38:00 EST, Height/Length Dosing, 133.2, kg, 04/16/20 15:38:00 EST, Weight Dosing lidocaine Top 5% film Patch: 1 patch(es), Topical, Daily, 7 patch(es), Refill(s) 1, apply 12 hours on and 12 hours off daily, [facility] #[id number], 175, cm, 08/14/24 11:49:00 EDT, Height/Length Dosing, 135, kg, 08/14/24 11:49:00 EDT, Weight Dosing na: na, See Instructions, 1 bottle(s), 6, provide patient with lancets and glucometer strips. Check glucose daily., [facility] #[id number], Supply nystatin Top 100,000 units/g Crm 15 gram: 1 carlo, Topical, BID, 30 gram, Refill(s) 1, [facility] #49559, 173, cm, 12/21/22 13:04:00 EDT, Height/Length Dosing, 137.9, kg, 12/21/22 13:04:00 EDT, Weight Dosing omeprazole 40 mg Cap-DR: 40 mg = 1 cap(s), Oral, BID, # 90 cap(s), Refills(s) 7, Pharmacy: [facility] #[id number], 175, cm, 09/12/24 13:03:00 EDT, Height/Length Dosing, 134.9, kg, 09/12/24 13:03:00 EDT, Weight Dosing promethazine 25 mg Tab: 25 mg = 1 tab(s), Oral, TID, # 15 tab(s), Refills(s) 0, Pharmacy: [facility] #[id number], 175.2, cm, 06/29/24 15:07:00 EST, Height/Length Dosing, 136.9, kg, 06/29/24 15:07:00 EST, Weight Dosing tiZANidine 4 mg Tab: 4 mg = 1 tab (more content not included)... [facility] Main OR PACU II Recordon Main OR PACU II Record Main OR PACU II R ecord PACU Phase II Document Type FT Summary Primary Physician: Lucia Gorman MD Finalized Date/Time: 09/26/24 11:54:54 Pt. Name: ALMA DELIA PEARL/Sex: 1985 Female Med Rec #: [id number] Physician: Lucia Gorman MD Financial #: [id number] Pt. Type: O Room/Bed: / Admit/Disch: 09/26/24 09:43:38 - Institution: Case Times PACU II FT Pre-Care Text: Identifies barriers to communication and implements measures to provide psychological support and determines knowledge level Develops individualized plan of care, and ensures continuity of care Maintains patient's dignity and privacy, and maintains patient confidentiality Identifies and reports philosophical, cultural, and spiritual beliefs and values Identifies individual values and wishes concerning care administers prescribed antibiotic therapy and immunizing agents as ordered, Evaluates postoperative tissue perfusion Implements thermoregulation measures, and monitors body temperature Evaluates postoperative respiratory status Evaluates postoperative cardiac status Evaluates postoperative neurological status Assesses pain control, collaborated in initiating patient-controlled analgesia and implements alternative methods of pain control Verifies allergies, administers prescribed medications and solutions, evaluates response to medications Entry 1 In PACU II 09/26/24 11:28:00 Discharge from PACU 09/26/24 11:50:00 II Outcomes Met? Yes Last Modified By: Emma Coates I 09/26/24 11:54:51 Post-Care Text: The patient demonstrates knowledge of the expected response to the operative or invasive procedure The patient's care is consistent with the individualized perioperative plan of care The patient's right to privacy is maintained The patient's value system, lifestyle, ethnicity, and culture are considered, respected, and incorporated into the perioperative plan of care The patient participates in decisions affecting his or her perioperative plan of care. The patient is free from signs and symptoms of infection The patient has wound/tissue perfusion consistent with or improved from baseline levels established preoperatively The patient is at or returning to normothermia at the conclusion of the immediate postoperative period The patient's respiratory function is consistent with or improved from baseline levels established preoperatively The patient's cardiovascular status is consistent with or improved from baseline levels established preoperatively The patient's neurological status is consistent with or improved from baseline levels established preoperatively The patient demonstrates and/or reports adequate pain control throughout the perioperative period The patient received appropriate medication(s), safely administered during the perioperative period Finalized By: Emma Coates I Document Signatures Signed By: Emma Coates I 09/26/24 11:54 Normal [facility] Main OR Preoperative Recordo n 09-26-2024 Main OR Preoperative Record Main OR Preoperative Record Holding Area Document Type FT Summary Primary Physician: Lucia Gorman MD Finalized Date/Time: 09/26/24 10:01:11 Pt. Name: ALMA DELIA PEARL/Sex: 1985 Female Med Rec #: [id number] Physician: Lucia Gorman MD Financial #: [id number] Pt. Type: O Room/Bed: / Admit/Disch: 09/26/24 09:43:38 - Institution: Case Times Holding FT Pre-Care Text: Verifies consent for planned procedure, identifies individual values and wishes concerning care, includes family members in perioperative teaching Secures patient's records' belongings, and valuables, maintains patient's dignity and privacy, and maintains patient confidentiality Entry 1 In Holding 09/26/24 09:50:00 Outcomes Met? Yes Last Modified By: Rhoda Ambrose RN 09/26/24 10:00:04 Post-Care Text: The patient participates in decisions affecting his or her perioperative plan of care The patient's right to privacy is maintained Surgery Checklist FT Entry 1 Patient Birthday, ID Band Procedure History and Physical, Identification: Check, Patient Verification: Surgical Consent, With Participation Patient NPO after Midnight: Yes Results Reviewed Yellow Comments: Personal Items: Glasses, Jewelry Personal Items Glassess, belly button Comment: ring Limitations: Vision Complaints of Pain: No Pain Comment: Denies Operative Site n/a Marking: Availability Equipment Verified: Does Patient Smoke No Patient states Yes Comment - Adult Ophelia postop adult Supervision supervision available Case Cancelled in No Holding Area see comments below for reason Last Modified By: Rhoda Ambrose RN 09/26/24 10:01:06 General Comments: Pt completed prep at 0515 and remained NPO since/SAUMYARN Finalized By: Rhoda Ambrose RN Document Signatures Signed By: Rhoda Ambrose RN 09/26/24 10:01 [facility] Operative Reporton Operative Report Operative Report Patient: ALMA DELIA PEARL Age: 39 years Sex: Female : 1985 Associated Diagnoses: None Author: Lucia Gorman MD Pre-Procedure Procedure Date 09/26/2024 11:26:00 . Procedure Type: Colonoscopy with biopsy. Procedure provider Performed by Lucia Gorman MD. Current history and physical Documented on chart. Left breast epidermal cyst excision ([id number]) on 12/21/2023 at 38 Years. Colonoscopy ([id number]) on 02/01/2018 at 32 Years. EGD & Colonoscopy on 06/01/2016 at 31 Years. EGD & Colooscopy on 07/31/2014 at 29 Years. Colonoscopy ([id number]) on 04/28/2012 at 27 Years. laproscopy x3. Colonoscopy ([id number]). Comments: 02/16/2019 12:16 [facility] Top Frame Maker/LynxRosario x2 with Dr[address] Velasco Tonsillectomy ([id number]). Decompression of lumbar spine ([id number]).. Past Medical History Active Crohn disease ([id number]) Hyperlipidemia (01899562) Resolved Fibromyalgia (06565074): Resolved. Bipolar (508244277): Resolved. crohns: Resolved. Depression (49859358): Resolved. Diabetes mellitus (026286281): Resolved. Gastroesophageal reflux disease (360001138): Resolved. Migraine (31941265): Resolved.. Family History Hypertension Mother Grandparent Heart disease Grandparent Primary malignant neoplasm of female genital organ Mother Diabetes mellitus type 2 Mother Heart failure Mother Depression Sister Bipolar Mother Sister Hepatitis C Mother Heart disease Mother High cholesterol Grandparent . Procedure History Left breast epidermal cyst excision ([id number]) on 12/21/2023 at 38 Years. Colonoscopy ([id number]) on 02/01/2018 at 32 Years. EGD & Colonoscopy on 06/01/2016 at 31 Years. EGD & Colooscopy on 07/31/2014 at 29 Years. Colonoscopy ([id number]) on 04/28/2012 at 27 Years. laproscopy x3. Colonoscopy ([id number]). Comments: 02/16/2019 12:16 EDT - [facility] Top Frame Maker/Firestopper Installer, Rosario Larios x2 with Dr[address] Velasco Tonsillectomy ([id number]). Decompression of lumbar spine ([id number]).. Colorectal neoplasm risk assessment Average risk. Informed Consent After discussing the rationale, risks and benefits, and alternatives to this procedure, the patient provided signed consent for the procedure. Pre-procedure diagnosis: Diarrhea, clinically significant. Medications (Selected) Inpatient Medications Ordered Lactated Ringers IV Padma 1000 mL 1,000 mL: 1,000 mL, IV, 100 mL/hr, Routine, Start date 09/26/24 10:12:00 EDT, 10 hour(s), Total volume (mL): 1,000, 134.9 kg, 2.56, m2 Sodium Chloride 0.9% IV Padma 1000 mL 1,000 mL: 1,000 mL, IV, 20 mL/hr, Routine, Start date 09/26/24 6:46:00 EDT, 50 hour(s), Total volume (mL): 1,000, 134.9 kg, 2.56, m2 Zofran 4 mg/2 mL Injection: 4 mg = 2 mL, Injection, IV Push, Once PRN Nausea/Vomiting, Routine, Start date 09/26/24 10:12:00 EDT, 09/26/24 10:12:00 EDT Prescriptions Prescribed Albuterol (Eqv-ProAir HFA) 90 mcg/inh inhalation aerosol: 2 puff(s), Inhalation, q6hr, 18 gm, Refill(s) 4, [facility] #[id number], 175, cm, 08/14/24 11:49:00 EDT, Height/Length Dosing, 135, kg, 08/14/24 11:49:00 EDT, Weight Dosing Flonase 0.05 mg/inh [place]: 1 spray(s), Nasal, BID, 16 gram, Refill(s) 5, each nostril, [facility] #[id number], 175.2, cm, 06/11/24 14:27:00 EST, Height/Length Dosing, 136.9, kg, 06/11/24 14:27:00 EST, Weight Dosing Nebulizer Machine: Nebulizer Machine, See Instructions, 1 EA, 0, Nebulizer Machine, [facility] #[id number], Supply, 175, cm, 07/02/21 10:47:00 EST, Height/Length Dosing, 133, kg, 07/02/21 10:47:00 EST, Weight Dosing Nebulizer Tubing and Mouthpiece Kit: Nebulizer Tubing and Mouthpiece Kit, See Instructions, 1 kit(s), 0, Nebulizer Tubing and Mouthpiece Kit, Supply Nebulizer and supplies: Nebulizer and supplies, See Instructions, 1 EA, 0, Pt requires nebulizer and tubing/supplies DX: J45.909, Supply Test strips-True Metrix: Test strips-True Metrix, See Instructions, 100 EA, 2, Blood glucose test strips. Use daily to test fasting blood sugars and as needed for symptomatic high or low blood sugars, [facility], Supply, 175, cm, 09/15/20 13:52:00 EDT, Pieroi... Voltaren Gel 1% Gel: 1 carlo, Topical, QID for pain, 100 gram, Refill(s) 0, [facility] #[id number], 175, cm, 08/14/24 11:49:00 EDT, Height/Length Dosing, 135, kg, 08/14/24 11:49:00 EDT, Weight Dosing Zofran 4 mg Tab: 4 mg = 1 tab(s), Oral, q8hr, PRN Nausea/Vomiting, # 12 tab(s), Refills(s) 0 albuterol 0.083% Inh Padma 3 mL: 0.083% - 3mL dosing units, Inhalation, q4hr Wheezing, 30 EA, Refill(s) 11, [facility] #[id number], 175, cm, 08/14/24 11:49:00 EDT, Height/Length Dosing, 135, kg, 08/14/24 11:49:00 EDT, Weight Dosing cholecalciferol 50,000 intl units oral capsule: 2,500 mcg = 2 cap(s), Oral, qWeek, # 12 cap(s), Refills(s) 2, Pharmacy: [facility] #[id number], 175, cm, 08/14/24 11:49:00 EDT, Height/Length Dosing, 135, kg, 08/14/24 11:49:00 EDT, Weight Dosi (more content not included)... Normal [facility] Comment on above: Result Comment: Elec tronically Signed By: Lucia Gorman MD\.br\Date and Time Signed: 09/26/24 11:27 EDT Other Comment: Isa jordan Attachment - attachment storage system not supported [id number] Can be viewed in source system Missing Attachment - attachment storage system not supported [id number] Can be viewed in source system Missing Attachment - attachment storage system not supported [id number] Can be viewed in source system Missing Attachment - attachment storage system not supported [id number] Can be viewed in source system Missing Attachment - attachment storage system not supported [id number] Can be viewed in source system Operative Report Operative Report Patient: ALMA DELIA PEARL Age: 39 years Sex: Female : 1985 Associated Diagnoses: None Author: Lucia Gorman MD Pre-Procedure Procedure Date 09/26/2024 11:14:00 . Procedure Type: Esophagogastroduodenoscopy with biopsy. Procedure provider Performed by Lucia Gorman MD. Current history and physical Documented on chart. Informed Consent After discussing the rationale, risks and benefits, and alternatives to this procedure, the patient provided signed consent for the procedure. Pre-procedure diagnosis: Diarrhea, GERD . Medications (Selected) Inpatient Medications Ordered Lactated Ringers IV Padma 1000 mL 1,000 mL: 1,000 mL, IV, 100 mL/hr, Routine, Start date 09/26/24 10:12:00 EDT, 10 hour(s), Total volume (mL): 1,000, 134.9 kg, 2.56, m2 Sodium Chloride 0.9% IV Padma 1000 mL 1,000 mL: 1,000 mL, IV, 20 mL/hr, Routine, Start date 09/26/24 6:46:00 EDT, 50 hour(s), Total volume (mL): 1,000, 134.9 kg, 2.56, m2 Zofran 4 mg/2 mL Injection: 4 mg = 2 mL, Injection, IV Push, Once PRN Nausea/Vomiting, Routine, Start date 09/26/24 10:12:00 EDT, 09/26/24 10:12:00 EDT Prescriptions Prescribed Albuterol (Eqv-ProAir HFA) 90 mcg/inh inhalation aerosol: 2 puff(s), Inhalation, q6hr, 18 gm, Refill(s) 4, [facility] #[id number], 175, cm, 08/14/24 11:49:00 EDT, Height/Length Dosing, 135, kg, 08/14/24 11:49:00 EDT, Weight Dosing Flonase 0.05 mg/inh [place]: 1 spray(s), Nasal, BID, 16 gram, Refill(s) 5, each nostril, [facility] #[id number], 175.2, cm, 06/11/24 14:27:00 EST, Height/Length Dosing, 136.9, kg, 06/11/24 14:27:00 EST, Weight Dosing Nebulizer Machine: Nebulizer Machine, See Instructions, 1 EA, 0, Nebulizer Machine, [facility] #[id number], Supply, 175, cm, 07/02/21 10:47:00 EST, Height/Length Dosing, 133, kg, 07/02/21 10:47:00 EST, Weight Dosing Nebulizer Tubing and Mouthpiece Kit: Nebulizer Tubing and Mouthpiece Kit, See Instructions, 1 kit(s), 0, Nebulizer Tubing and Mouthpiece Kit, Supply Nebulizer and supplies: Nebulizer and supplies, See Instructions, 1 EA, 0, Pt requires nebulizer and tubing/supplies DX: J45.909, Supply Test strips-True Metrix: Test strips-True Metrix, See Instructions, 100 EA, 2, Blood glucose test strips. Use daily to test fasting blood sugars and as needed for symptomatic high or low blood sugars, [facility], Supply, 175, cm, 09/15/20 13:52:00 EDT, Hei... Voltaren Gel 1% Gel: 1 carlo, Topical, QID for pain, 100 gram, Refill(s) 0, [facility] #[id number], 175, cm, 08/14/24 11:49:00 EDT, Height/Length Dosing, 135, kg, 08/14/24 11:49:00 EDT, Weight Dosing Zofran 4 mg Tab: 4 mg = 1 tab(s), Oral, q8hr, PRN Nausea/Vomiting, # 12 tab(s), Refills(s) 0 albuterol 0.083% Inh Padma 3 mL: 0.083% - 3mL dosing units, Inhalation, q4hr Wheezing, 30 EA, Refill(s) 11, [facility] #43907, 175, cm, 08/14/24 11:49:00 EDT, Height/Length Dosing, 135, kg, 08/14/24 11:49:00 EDT, Weight Dosing cholecalciferol 50,000 intl units oral capsule: 2,500 mcg = 2 cap(s), Oral, qWeek, # 12 cap(s), Refills(s) 2, Pharmacy: [facility] #[id number], 175, cm, 08/14/24 11:49:00 EDT, Height/Length Dosing, 135, kg, 08/14/24 11:49:00 EDT, Weight Dosing ferrous sulfate 325 mg oral enteric coated tablet: 650 mg = 2 tab(s), Oral, Every other day, # 45 tab(s), Refills(s) 3, Pharmacy: [facility] #[id number], 175, cm, 08/14/24 11:49:00 EDT, Height/Length Dosing, 135, kg, 08/14/24 11:49:00 EDT, Weight Dosing lancets: lancets, See Instructions, 100 EA, 3, lancets test daily E11.9, [facility] #[id number], Supply, 175, cm, 04/16/20 15:38:00 EST, Height/Length Dosing, 133.2, kg, 04/16/20 15:38:00 EST, Weight Dosing lidocaine Top 5% film Patch: 1 patch(es), Topical, Daily, 7 patch(es), Refill(s) 1, apply 12 hours on and 12 hours off daily, [facility] #55841, 175, cm, 08/14/24 11:49:00 EDT, Height/Length Dosing, 135, kg, 08/14/24 11:49:00 EDT, Weight Dosing na: na, See Instructions, 1 bottle(s), 6, provide patient with lancets and glucometer strips. Check glucose daily., [facility] #[id number], Supply nystatin Top 100,000 units/g Crm 15 gram: 1 carlo, Topical, BID, 30 gram, Refill(s) 1, [facility] #[id number], 173, cm, 12/21/22 13:04:00 EDT, Height/Length Dosing, 137.9, kg, 12/21/22 13:04:00 EDT, Weight Dosing omeprazole 40 mg Cap-DR: 40 mg = 1 cap(s), Oral, BID, # 90 cap(s), Refills(s) 7, Pharmacy: [facility] #[id number], 175, cm, 09/12/24 13:03:00 EDT, Height/Length Dosing, 134.9, kg, 09/12/24 13:03:00 EDT, Weight Dosing promethazine 25 mg Tab: 25 mg = 1 tab(s), Oral, TID, # 15 tab(s), Refills(s) 0, Pharmacy: [facility] #[id number], 175.2, cm, 06/29/24 15:07:00 EST, Height/Length Dosing, 136.9, kg, 06/29/24 15:07:00 EST, Weight Dosing tiZANidine 4 mg Tab: 4 mg = 1 tab(s), Oral, q8hr, # 42 tab(s), Refills(s) 0, Pharmacy: [facility] #[id number], 175, cm, 08/14/24 11:49:00 EDT, Height/Length Dosing, 135, kg, 08/14/24 11:49:00 EDT, We (more content not included)... Normal [facility] Comment on above: Result Comment: Elec tronically Signed By: Sherif KURTZ, Lucia Yee.br\Date and Time Signed: 09/26/24 11:15 EDT Other Comment: Isa jordan Attachment - attachment storage system not supported [id number] Can be viewed in source system Missing Attachment - attachment storage system not supported [id number] Can be viewed in source system Missing Attachment - attachment storage system not supported [id number] Can be viewed in source system Missing Attachment - attachment storage system not supported [id number] Can be viewed in source system Missing Attachment - attachment storage system not supported [id number] Can be viewed in source system Missing Attachment - attachment storage system not supported [id number] Can be viewed in source system Missing Attachment - attachment storage system not supported [id number] Can be viewed in source system Missing Attachment - attachment storage system not supported [id number] Can be viewed in source system Missing Attachment - attachment storage system not supported [id number] Can be viewed in source system Missing Attachment - attachment storage system not supported [id number] Can be viewed in source system Missing Attachment - attachment storage system not supported [id number] Can be viewed in source system CT Abdomen/Pelvis w/contrast (enterography)on 09-25-2024 CT Abdomen/Pelvis w/contrast (enterography) Exam Date/Time: 09/24/2024 09:39 EDT Reason for Exam: K62.5;Crohn's Disease Report IMPRESSION: NO ACTIVE INFLAMMATORY SMALL BOWEL CROHN'S DISEASE. PENETRATING DISEASE: ABSENT EXAMINATION/TECHNIQUE: CT Abdomen/Pelvis w/contrast (enterography) HISTORY: Crohn's Disease, K62.5. Possible Crohn's disease. Nausea, diarrhea, intermittent bloody stools for years. TECHNIQUE: CT of the abdomen and pelvis using Enterography technique, with 2 phases including arterial and 70 sec sequences. Coronal and sagittal reconstructions. All CT scans at this facility use dose modulation, iterative reconstruction, and/or weight based dosing when appropriate to reduce radiation dose to as low as reasonably achievable. COMPARISON: CT 06/29/2024. RESULT: ... GI Tract: Small bowel: No mural hyperenhancement or wall thickening. Colon and Rectum: No mural hyperenhancement or wall thickening. Strictures: None Fistulae/Sinus tracts: None Abscess: None Abdomen/pelvis other: Liver: Probable steatosis. No mass or lesion. Biliary: Gallbladder unremarkable. No biliary ductal dilation. Pancreas: No mass or duct dilation. Spleen: No mass or splenomegaly. Adrenals: No mass. Kidneys: No mass, calculus or hydronephrosis. Report Lymph nodes: No abdominal or pelvic lymphadenopathy. Mesentery/Peritoneum/Retrop eritoneum: No ascites or mass. Vasculature: The celiac axis and SMA are patent. The portal vein and branches, splenic vein, SMV, and hepatic veins are patent. No abdominal aortic or iliac artery aneurysm. Pelvis: Uterine fibroid, unchanged. No significant free fluid. Bladder unremarkable. Low-attenuation simple appearing right adnexal cyst/follicle. Bones: No acute osseous findings. Degenerative changes especially at L4-L5. Soft tissues: Unremarkable. Lower thorax: Unremarkable. Tech Comments: GFR (mL/min/1/73m2) 96 Contrast: Isovue 300 Contrast amount in ml's: 100.00 Oral contrast amount in ml's: 1350.00 Ordering Provider: Lucia Gorman FINAL REPORT Dictated: 09/25/2024 3:24 pm Nash Clark MD Signed (Electronic Signature): 09/25/2024 3:24 pm Signed by: Nash Clark MD Transcribed by: ABBY Technologist: PHILLIP Normal [facility] CBC w/ Auto Diffon 5 Basophils/100 WBC (Bld) 0.5 % Normal 0.0-2.0 [facility] Comment on above: Performed By: #### 2 [id number] #### [facility] [address] [place] [address] Basophils/Leukocytes Auto (Bld) [Pure # fraction] 0.0 E9/L Normal 0.0-0.2 [facility] Comment on above: Performed By: #### 2 [id number] #### [facility] [address] [place] [address] Eosinophils (Bld) [#/Vol] 0.1 E9/L Normal 0.0-0.5 [facility] Comment on above: Performed By: #### 2 [id number] #### [facility] [address] [place] [address] Eosinophils/100 WBC (Bld) 1.2 % Normal 0.0-8.0 [facility] Comment on above: Performed By: #### 2 [id number] #### [facility] [address] [place] [address] Erythrocyte distribution width (RBC) [Ratio] 15.0 % High 10.9-14.2 [facility] Comment on above: Performed By: #### 2 [id number] #### [facility] [address] [place] [address] Hematocrit (Bld) [Volume fraction] 35.3 % Normal 34.0-46.0 [facility] Comment on above: Performed By: #### 2 [id number] #### [facility] [address] [place] [address] 77096 Hemoglobin (Bld) [Mass/Vol] 11.9 g/dL Low 12.0-16.0 [facility] Comment on above: Performed By: #### 2 [id number] #### [facility] [address] [place] [address] 13811 Lymphocytes (Bld) [#/Vol] 2.4 E9/L Normal 1.0-4.0 [facility] Comment on above: Performed By: #### 2 086351 #### [facility] [address] [place] [address] Lymphocytes/100 WBC (Bld) 23.5 % Normal 14.0-50.0 [facility] Comment on above: Performed By: #### 2 [id number] #### [facility] [address] [place] [address] MCH (RBC) [Entitic mass] 27.7 pg Normal 27.0-34.0 [facility] Comment on above: Performed By: #### 2 [id number] #### [facility] [address] [place] [address] MCHC (RBC) [Mass/Vol] 33.7 g/dL Normal 31.4-36.0 [facility] Comment on above: Performed By: #### 2 [id number] #### [facility] [address] [place] [address] MCV (RBC) [Entitic vol] 82.2 fL Normal 80.0-100.0 [facility] Comment on above: Performed By: #### 2 [id number] #### [facility] [address] [place] [address] Monocytes (Bld) [#/Vol] 0.6 E9/L Normal 0.2-1.0 [facility] Comment on above: Performed By: #### 2 [id number] #### [facility] [address] [place] [address] Neutrophils (Bld) [#/Vol] 7.0 E9/L Normal 2.0-7.5 [facility] Comment on above: Performed By: #### 2 [id number] #### [facility] [address] [place] [address] Neutrophils/100 WBC (Bld) 68.6 % Normal 36.0-75.0 [facility] Comment on above: Performed By: #### 2 [id number] #### [facility] [address] [place] [address] Platelet 222.0 E9/L Normal 150.0-500. 0 [facility] Comment on above: Performed By: #### 2 [id number] #### [facility] [address] [place] [address] Platelet mean volume (Bld) [Entitic vol] 8.3 fL Normal 6.4-10.8 [facility] Comment on above: Performed By: #### 2 [id number] #### [facility] [address] [place] [address] RBC (Bld) [#/Vol] 4.3 E12/L Normal 4.3-5.9 [facility] Comment on above: Performed By: #### 2 [id number] #### [facility] [address] [place] [address] WBC corrected for nucl RBC Auto (Bld) [#/Vol] 10.2 E9/L Normal 4.0-11.0 [facility] Comment on above: Performed By: #### 2 [id number] #### [facility] [address] [place] [address] CHEMISTRYOrdered By: SYSTEM SYSTEM on 09-24-2024 25-hydroxyvitamin D3 [Mass/Vol] 20.9 ng/mL Low 30.0 - 100.0 ng/mL Remisol Chem Iron [Mass/Vol] 65 ug/dL Normal 35 - 153 mcg/dL Remisol Chem Iron binding capacity [Mass/Vol] 452 ug/dL High 250 - 400 mcg/dL Remisol Chem Iron saturation [Mass fraction] 14 % Low 20 - 50 % Remisol Chem Transferrin [Mass/Vol] 323 mg/dL Normal 200 - 370 mg/dL [facility] Chem Creatinine [Mass/Vol] 0.8 mg/dL Normal 0.5 - 1.3 mg/dL [facility] Chem CRP [Mass/Vol] 2.1 mg/dL High <=1.9mg/dL Remisol Chem eGFR 96 mL/min/1.73 m2 Normal >=59mL/min /1.73 m2 Remisol Chem CRPon 09-24-2024 CRP [Mass/Vol] 2.1 mg/dL High <=1.9 [facility] Comment on above: Performed By: #### 2 [id number] #### [facility] [address] [place] [address] Creatinineon 09-24-2024 Creatinine [Mass/Vol] 0.8 mg/dL Normal 0.5-1.3 [facility] Comment on above: Performed By: #### 2 [id number] #### [facility] [address] [place] [address] HEMATOLOGYOrdered By: SYSTEM SYSTEM on 09-24-2024 Basophils/100 WBC (Bld) 0.5 % Normal 0.0 - 2.0 % Remisol Heme Basophils/Leukocytes Auto (Bld) [Pure # fraction] 0.0 E9/L Normal 0.0 - 0.2 E9/L Remisol Heme Eosinophils (Bld) [#/Vol] 0.1 E9/L Normal 0.0 - 0.5 E9/L Rem[facility] Heme Eosinophils/100 WBC (Bld) 1.2 % Normal 0.0 - 8.0 % Remisol Heme Erythrocyte distribution width (RBC) [Ratio] 15.0 % High 10.9 - 14.2 % Rem[facility] Heme Hematocrit (Bld) [Volume fraction] 35.3 % Normal 34.0 - 46.0 % Remisol Heme Hemoglobin (Bld) [Mass/Vol] 11.9 g/dL Low 12.0 - 16.0 gm/dL Rem[facility] Heme Lymphocytes (Bld) [#/Vol] 2.4 E9/L Normal 1.0 - 4.0 E9/L [facility]e Lymphocytes/100 WBC (Bld) 23.5 % Normal 14.0 - 50.0 % Remisol Heme MCH (RBC) [Entitic mass] 27.7 pg Normal 27.0 - 34.0 pg Remisol Heme MCHC (RBC) [Mass/Vol] 33.7 g/dL Normal 31.4 - 36.0 gm/dL [facility] Heme MCV (RBC) [Entitic vol] 82.2 fL Normal 80.0 - 100.0 fL [facility] Heme Monocytes (Bld) [#/Vol] 0.6 E9/L Normal 0.2 - 1.0 E9/L [facility] Heme Monocytes/100 WBC (Bld) 6.2 % Normal 4.0 - 14.0 % Remisol Heme Neutrophils (Bld) [#/Vol] 7.0 E9/L Normal 2.0 - 7.5 E9/L [facility] Heme Neutrophils/100 WBC (Bld) 68.6 % Normal 36.0 - 75.0 % Rem[facility] Heme Platelet 222.0 E9/L Normal 150.0 - 500.0 E9/L [facility] Heme Platelet mean volume (Bld) [Entitic vol] 8.3 fL Normal 6.4 - 10.8 fL Remisol Heme RBC (Bld) [#/Vol] 4.3 E12/L Normal 4.3 - 5.9 E12/L Rem[facility] Heme WBC corrected for nucl RBC Auto (Bld) [#/Vol] 10.2 E9/L Normal 4.0 - 11.0 E9/L Rem[facility] Heme Ironon 09-24-2024 Iron [Mass/Vol] 65 microgram/dL Normal 35-153 [facility] Comment on above: Order Comment: Iron order added by Discern Rule: gl_ftmc_add_iron_trans . Performed By: #### 2 [id number] #### [facility] [address] [place] [address] Iron Saturationon 09-24-2024 Iron binding capacity [Mass/Vol] 452 microgram/dL High 250-400 [facility] Comment on above: Performed By: #### 2 [id number] #### [facility] [address] [place] [address] Iron saturation [Mass fraction] 14 % Low 20-50 [facility] Comment on above: Performed By: #### 2 [id number] #### [facility] [address] [place] [address] Transferrinon 09-24-2024 Transferrin [Mass/Vol] 323 mg/dL Normal 200-370 [facility] Comment on above: Order Comment: Trans brooklynn order added by Discern Rule: gl_ftmc_add_iron_trans . Performed By: #### 2 [id number] #### [facility] [address] [place] [address] Vitamin D 25 Hydroxyon 09-24 25-hydroxyvitamin D3 [Mass/Vol] 20.9 ng/mL Low 30.0-100.0 [facility] Comment on above: Performed By: #### 5 [id number] #### [facility] [address] [place] [address] eGFRon 09-24-2024 eGFR 96 mL/min/1.73 m2 Normal >=59 [facility] Comment on above: Performed By: #### 1 [id number] #### [facility] [address] [place] [address] Ambulatory Visit Summaryon 0 09-12-2024 Ambulatory Visit Summary Ambulatory Visit Summary ALMA DELIA PEARL :1985 Visit Date:09/12/2024 Ambulatory Visit Instructions Your Diagnosis Rectal bleeding Crohn disease Loose stools Nausea Obesity due to excess calories Chronic GERD These Are Your Goals Diabetes Mellitus-Improve glucose levels Interventions: Complete lab work as ordered. Increase daily exercise to 60 minutes a day. Review education pamphlets/books. Take a fasting glucose every morning. Obesity-Lose weight current weight 286.2 Interventions: Increase daily exercise to 60 minutes a day Make better food choices. Review balance diet pamphlet. Chronic pain-decrease back pain. Interventions: Continue with appointments at [facility]. Increase daily exercise Lose weight Take Medications as Prescribed Your Care Team Attending Physician - Sherif KURTZ, Lucia Castillo Primary Care Physician - Rell FERRER, Irasema Medley This Is Your Medications List omeprazole (omeprazole 40 mg Cap-) Contact prescribing physician if questions or concerns Misc Prescription (Nebulizer Machine) Misc Prescription (Nebulizer Tubing and Mouthpiece Kit) Misc Prescription (Nebulizer and supplies) Misc Prescription (Test strips-True Metrix) Misc Prescription (lancets) Misc Prescription (na) albuterol (Albuterol (Eqv-ProAir HFA) 90 mcg/inh inhalation aerosol) albuterol (albuterol 0.083% Inh Padma 3 mL) brexpiprazole (Rexulti 3 mg oral tablet) bupropion-dextromethorphan (Auvelity 45 mg-105 mg oral tablet, extended release) busPIRone (busPIRone 15 mg Tab) cholecalciferol (cholecalciferol 50,000 intl units oral capsule) diclofenac topical (Voltaren Gel 1% Gel) doxycycline (doxycycline hyclate 100 mg Cap) ferrous sulfate (ferrous sulfate 325 mg oral enteric coated tablet) fluticasone nasal (Flonase 0.05 mg/inh [place]) galcanezumab (Emgality Prefilled Pen 120 mg/mL subcutaneous solution) hydrOXYzine (hydrOXYzine pamoate 25 mg Cap) lidocaine topical (lidocaine Top 5% film Patch) nystatin topical (nystatin Top 100,000 units/g Crm 15 gram) omeprazole (omeprazole 40 mg Cap-DR) ondansetron (Zofran 4 mg Tab) pregabalin (pregabalin 25 mg Cap) promethazine (promethazine 25 mg Tab) tirzepatide (Mounjaro) tizanidine (tiZANidine 4 mg Tab) trazodone (traZODONE 150 mg Tab) ubrogepant (Ubrelvy 100 mg oral tablet) verapamil (verapamil 120 mg ER Tab) Procedures Performed Cyst of breast (12/21/2023), Colonoscopy (02/01/2018), EGD & Colonoscopy (06/01/2016), EGD & Colooscopy (07/31/2014), Colonoscopy (04/28/2012), Colonoscopy, Decompression of lumbar spine, laproscopy x3, Tonsillectomy. Discharge Vitals Respiratory Rate 16 Blood Pressure 118/83 Height 175 cm Height 69 in Weight 134.9 kg Weight 297.403 lb BMI 44.05 What to do next Scheduled Follow-Up Appointments 2024 12:00 PM EDT With: Where: [facility] Tuesday 10:45 AM EDT With: Where: [facility] 2024 2:30 PM EDT With: Where: [facility] Tuesday 11:00 AM EDT With: Where: [facility] Tuesday 10:00 AM EDT With: Irasema Love Where: [facility] [address], [place] [address]- Tuesday2025 11:00 AM EDT With: Where: [facility] [address], [facility] [place] [address]- You Need to Complete the Following C-Reactive Protein, Blood, Routine collect, 09/12/24, Order for future visit, Lab Collect, Rectal bleeding Crohn disease Loose stools Nausea Obesity due to excess calories, Not Required, Print Label By Order Location Calprotectin, Fecal, Stool, Routine collect, 09/12/24, Order for future visit, Nurse collect, Rectal bleeding Crohn disease Loose stools Nausea Obesity due to excess calories, Not Required, Print Label By Order Location CT Abdomen/Pelvis w/contrast (enterography), 09/12/24, Routine, Order for future visit, Transport Mode: Ambulatory, Reason: Crohn's Disease, No, No, Rectal bleeding Crohn disease Loose stools Nausea Obesity due to excess calories, pp_set_radiology_subspecial ty, Not Required, [facility] Medications What How Much When Why Instructions New omeprazole (omeprazole 40 mg Cap-DR) 1 Capsules By Mouth 2 times a day Rectal bleeding Crohn disease Loose stools Nausea Obesity due to excess calories Refills: 7 Pickup at [id number] Unchanged albuterol (Albuterol (Eqv-ProAir HFA) 90 mcg/ inh inhalation aerosol) 2 Puffs Inhalation Every 6 hours Mild intermittent asthma Contact prescribing physician if questions or concerns Unchanged albuterol (albuterol 0.083% Inh Padma 3 mL) 0.083% - 3mL dosing units Inhalation Every 4 hours as needed for Wheezing Contact prescribing physician if questions or concerns Unchanged (more content not included)... Normal [facility] Gastroenterology Office/Clin ic Noteon 09-12-2024 Gastroenterology Office/Clinic Note Gastroenterology Office/Clinic Note Chief Complaint diarrhea, rectal bleeding HPI Staff NEW, 39 year old female who presents today for a referral by Rell for Crohn's disease and rectal bleeding. Denies Blood Thinners Estephania weekly Denies Dysphagia, abdominal pain, constipation Denies any previous EGD Denies any recent imaging or labs Has diarrhea, about 2-3 BMs daily that varies in consistency Has blood on the tissue after wiping, chronic Denies straining Crohn's disease- diagnosed by Dr Bowie 01/15/2009 based on multiple small intestinal ulcers seen on capsule camera, Tried Pentasa and Apriso, had relief wiith Pentasa She reports that she saw Dr Patel and he told her that she did not have Crohns Capsule 2008 Summary and recommendations: Erosions and aphthous ulcers seen as described above. I suspect she has CD of her SI Plan: initiate Pentasa orally CT abd/pelv 06/29/24 IMPRESSION: NO ACUTE ABDOMINOPELVIC PROCESS. Colonoscopy w/ Jorge 02/27/21- no op note available Pathological Diagnosis A. Small bowel, biopsy: - Fragments of disrupted small bowel mucosa without significant histopathologic findings. B. Colon, random biopsies: - Multiple fragments of colon mucosa with reactive lymphoid aggregates, negative for significant histopathologic findings. EGD w/ Dr Bowie 06/01/16 Impression and Plan Normal EGD Colonoscopy w/ Dr Bowie 06/01/16 Impression and Plan Internal hemorrhoids and inadequate prep status post random biopsies from the ascending colon and rectum. Final Diagnosis (Verified) A: ASCENDING COLON, BIOPSY: ??? COLONIC MUCOSA WITHIN NORMAL LIMITS. B: RECTUM, BIOPSY: ??? COLONIC MUCOSA WITH LYMPHOID AGGREGATES, WITHIN NORMAL LIMITS. Laboratory Results CBC CMP Basophil Absolute: 0 E9/L (08/15/24) A/G Ratio: 1.4 (08/15/24) Basophil Auto: 0.3 % (08/15/24) AGAP: 12 mEq/L (08/15/24) Eos Absolute: 0.1 E9/L (08/15/24) Albumin Lvl: 4.2 gm/dL (08/15/24) Eos Auto: 1.1 % (08/15/24) Alk Phos: 58 Int._Unit/L (08/15/24) Hct: 35.7 % (08/15/24) ALT: 14 Int._Unit/L (08/15/24) HGB: 12.1 gm/dL (08/15/24) AST: 12 Int._Unit/L (08/15/24) Lymph Absolute: 2.3 E9/L (08/15/24) Bili Total: 0.3 mg/dL (08/15/24) Lymph Auto: 21.6 % (08/15/24) BUN: 12 mg/dL (08/15/24) MCH: 27.6 pg (08/15/24) BUN/Creat Ratio: 13 (08/15/24) MCHC: 33.9 gm/dL (08/15/24) Calcium Lvl: 9 mg/dL (08/15/24) MCV: 81.4 fL (08/15/24) Chloride: 107 mmol/L (08/15/24) [place] Absolute: 0.6 E9/L (08/15/24) CO2: 23 mmol/L (08/15/24) [place] Auto: 5.8 % (08/15/24) Creatinine: 0.9 mg/dL (08/15/24) MPV: 8.5 fL (08/15/24) Globulin: 2.9 gm/dL (08/15/24) Neutro Absolute: 7.7 E9/L High (08/15/24) Glucose Lvl: 96 mg/dL (08/15/24) Neutro Auto: 71.2 % (08/15/24) Potassium Lvl: 3.6 mmol/L (08/15/24) Platelet: 272 E9/L (08/15/24) Sodium Lvl: 138 mmol/L (08/15/24) RBC: 4.4 E12/L (08/15/24) Total Protein: 7.1 gm/dL (08/15/24) RDW: 14.3 % High (08/15/24) WBC: 10.9 E9/L (08/15/24) Liver Studies Ferritin Lvl: 18 ng/mL (08/15/24) Hep A IgM: Negative (04/03/21) Hep B Core IgM: Negative (04/03/21) Hep Bs Ag: Negative (08/18/21) Iron: 32 mcg/dL Low (08/15/24) TIBC: 431 mcg/dL High (08/15/24) Stool Studies Campylobacter group: Not Detected (10/22/22) Clostridium difficile by PCR: NEGATIVE1 (06/05/19) Fecal WBC Lactoferrin: Positive1 Abnormal (06/06/19) Giardia Direct EIA: Negative (06/06/19) Norovirus GI/GII: Not Detected (10/22/22) Occult Bld Stl: NEGATIVE1 (06/06/19) Ova/Para Exam Rt: Final report (06/06/19) Result 1: Comment (06/06/19) Rotavirus A: Not Detected (10/22/22) Salmonella species: Not Detected (10/22/22) Shiga Tox Interp: NEGATIVE1 (10/22/22) Shiga Toxin 1: Not Detected (10/22/22) Shiga Toxin 2: Not Detected (10/22/22) Shigella species: Not Detected (10/22/22) Vibrio Group: Not Detected (10/22/22) Yersinia enterocolitica: Not Detected (10/22/22) History of Present Illness I have reviewed HPI staff note, most recent labs and imaging, I agree with the above documentation with the following additions/exceptions : PT with loose stool and blood in stool diagnosed in 2008 with CD in the SB - started on Pentasa on ibuprofen for back pain repeat colonoscopy about 3-4 ago at [facility] showed no CD pt moves 2-3 loose BMs a day blood on the wipes started Mounjaro and felt a little better still has gallbladder stool is stable - not losing since starting munjaro about 1 year ago some nausea that comes and goes - likely from migraine Review of Systems PHQ Score Initial Depression Screen Score: 0 SCORE All systems reviewed, negative except as mentioned above Physical Exam Vitals & Measurements RR: 16 BP: 118/83 HT: 175 cm HT: 69 in WT: 134.9 kg WT: 297.403 lb BMI: 44.05 General: alert, no acute distress HEENT: atraumatic normocephalic Cardiovascular: regular rate and rhythm, normal peripheral perfusion Respiratory: Lungs CTA, respirations n (more content not included)... Normal [facility] Comment on above: Result Comment: Elec tronically Signed By: Sherif KURTZ, Lucia Castillo\.br\Date and Time Signed: 09/12/24 13:30 EDT Nonvisit Note - PTon 09-06-2 025 Nonvisit Note - PT Nonvisit Note - PT Cxl'd at window per patient due to a conflict. Normal [facility] Ambulatory Visit Summaryon 0 09-04-2024 Ambulatory Visit Summary Ambulatory Visit Summary ALMA DELIA PEARL Kasi :1985 Visit Date:09/04/2024 Ambulatory Visit Instructions Your Diagnosis Sinusitis BMI 40.0-44.9, adult Morbid obesity These Are Your Goals [...] back pain. Interventions: Continue with appointments at [facility]. Increase daily exercise Lose weight Take Medications as Prescribed Your Care Team Attending Physician - Irasema Love Primary Care Physician - Irasema Love This Is Your Medications List Misc Prescription (Nebulizer Machine) Misc Prescription (Nebulizer Tubing and Mouthpiece Kit) Misc Prescription (Nebulizer and supplies) Misc Prescription (Test strips-True Metrix) Misc Prescription (lancets) Misc Prescription (na) albuterol (Albuterol (Eqv-ProAir HFA) 90 mcg/inh inhalation aerosol) albuterol (albuterol 0.083% Inh Padma 3 mL) brexpiprazole (Rexulti 3 mg oral tablet) bupropion-dextromethorphan (Auvelity 45 mg-105 mg oral tablet, extended release) busPIRone (busPIRone 15 mg Tab) cholecalciferol (cholecalciferol 50,000 intl units oral capsule) diclofenac topical (Voltaren Gel 1% Gel) ferrous sulfate (ferrous sulfate 325 mg oral enteric coated tablet) fluticasone nasal (Flonase 0.05 mg/inh [place]) galcanezumab (Emgality Prefilled Pen 120 mg/mL subcutaneous solution) hydrOXYzine (hydrOXYzine pamoate 25 mg Cap) lidocaine topical (lidocaine Top 5% film Patch) loperamide (Imodium A-D EZ Chews 2 mg oral tablet, chewable) nystatin topical (nystatin Top 100,000 units/g Crm 15 gram) omeprazole (omeprazole 40 mg Cap-DR) ondansetron (Zofran 4 mg Tab) pregabalin (pregabalin 25 mg Cap) promethazine (promethazine 25 mg Tab) tirzepatide (Mounjaro) tizanidine (tiZANidine 4 mg Tab) trazodone (traZODONE 150 mg Tab) ubrogepant (Ubrelvy 100 mg oral tablet) verapamil (verapamil 120 mg ER Tab) Procedures Performed Cyst of breast (12/21/2023), Colonoscopy (02/01/2018), EGD & Colonoscopy (06/01/2016), EGD & Colooscopy (07/31/2014), Colonoscopy (04/28/2012), Colonoscopy, Decompression of lumbar spine, laproscopy x3, Tonsillectomy. Discharge Vitals Temperature (Oral) 36.5 ???C Heart Rate (Peripheral) 83 Blood Pressure 118/76 Height 175 cm Height 69 in Weight 133.3 kg Weight 293.876 lb BMI 43.53 What to do next Scheduled Follow-Up Appointments Tuesday 12:45 PM EDT With: Where: [facility] 2024 10:45 AM EDT With: Where: [facility] Tuesday 1:00 PM EDT With: Where: [facility] Tuesday 12:45 PM EDT With: Sherif KURTZ, Lucia Castillo Where: [facility] [address] [facility] [address] [place] [address]- 2024 12:00 PM EDT With: Where: [facility] Tuesday 10:45 AM EDT With: Where: [facility] 2024 2:30 PM EDT With: Where: [facility] Tuesday 10:00 AM EDT With: Irasema Love Where: [facility] [address], [facility] [address] [place], [place] [id number]- Tuesday2025 11:00 AM EDT With: Where: [facility] [address], [facility] [place] [address]- Medications What How Much When Why Instructions Unchanged albuterol (Albuterol (Eqv-ProAir HFA) 90 mcg/ inh inhalation aerosol) 2 Puffs Inhalation Every 6 hours Mild intermittent asthma Unchanged albuterol (albuterol 0.083% Inh Padma 3 mL) 0.083% - 3mL dosing units Inhalation Every 4 hours as needed for Wheezing Unchanged brexpiprazole (Rexulti 3 mg oral tablet) 1 Tablets By Mouth Every day Unchanged bupropion-dextromethorphan (Auvelity 45 mg-105 mg oral tablet, extended release) 1 Tablets By Mouth 2 times a day Unchanged busPIRone (busPIRone 15 mg Tab) 1 Tablets By Mouth 3 times a day Unchanged cholecalciferol (cholecalciferol 50,000 intl units oral capsule) 1 Capsules By Mouth Every week Vitamin D deficiency Unchanged diclofenac topical (Voltaren Gel 1% Gel) 1 Application Topical 4 times a day as needed for for pain Lumbar back pain with radiculopathy affecting right lower extremity Unchanged ferrous sulfate (ferrous sulfate 325 mg oral enteric coated tablet) 1 Tablets By Mouth Every other day Iron deficiency anemia Unchanged fluticasone nasal (Flonase 0.05 mg/ inh [place]) 1 Sprays Nasal Inhalation 2 times a day Sinusitis Fluid level behind tympanic membrane of (more content not included)... Normal [facility] Family Medicine Office/Clini c Noteon 09-04-2024 Family Medicine Office/Clinic Note Family Medicine Office/Clinic Note Chief Complaint cough, congestion HPI Staff Symptoms started: Headache: no Body aches: no Earache: feel full Runny/stuffy nose: yes Sore throat: a little Cough: yes Scratchy tickly throat: no Chest symptoms: yes - congestion LYNNE: no Orthopnea: no Lung Hx - asthma, bronchitis, chest colds: Fever/chills: no GI symptoms: no History of Present Illness Alma Delia is a 39 yo female presenting today for acute visit d/t URI sx Pt reports symptoms started about 7 days ago Pt reports they are experiencing: congestion/runny nose, chest congestion, sinus pressure below both eyes, PAT's, drainage down into throat and some ear pressure Pt denies CP, SOB, wheezing, chest tightness, fever, chills, body aches, sore throat, ear pain/pressure, changes in taste/smell/appetite, n/v/d, abd pain, fatigue, urinary changes, or dizziness at this time. Using inhaler BID Pt denies any known sick contacts, COVID+ case or recent travel at this time Pt has tried OTC remedies including: smoker: no comorbidities: asthma, hx of bronchitis Hx of deviated septum/sinus surgeries: no Review of Systems PHQ Score Initial Depression Screen Score: 2 SCORE Physical Exam Vitals & Measurements T: 36.5 ???C(Oral) HR: 83(Peripheral) BP: 118/76 SpO2: 98% HT: 175 cm HT: 69 in WT: 133.3 kg WT: 293.876 lb BMI: 43.53 General: Well developed, well nourished, in no acute distress Eyes: Bilateral PERRLA, conjunctivae and sclerae wnl, EOMs intact, lids without stye, chalazion, ect/extropion, ptosis, xanthelasma, blepharitis. No discharge to inner canthi.Negative for corneal abrasion or foreign bodies. Ears: bilateral external canals intact , no discharge. Bilateral tympanic membrane pearly mullins and intact, light reflex present. No pain with manipulation of tragus and pinna bilaterally. Hearing grossly normal to conversational speech.Nose: No deformity, discharge, inflammation, or lesions. No congestion, no erythema; pink & moist turbinates; clear rhinorrhea. Mouth: mucous membranes pink, moist and intact. [place] posterior oropharynx, no palatal inflammation, uvula midline, [...] x3. Normal mood and affect Assessment/Plan 1. Sinusitis (J32.9: Chronic sinusitis, unspecified) COVID negative Given length of symptoms and sinus complaints, will treat with Augmentin and mucinex D x 7 days. Advised to complete antibiotics as ordered. Discussed expected improvement of symptoms within 7-10 days. Counseled pt to take probiotics or eat 2 Activia yogurts daily while on antibiotic to maintain normal gut jasmin and to prevent c.diff. Push fluids and rest Use a netti pot lavage, use decongestant (sudafed) or Mucinex D, antihistamine (xyzole) and flonase PRN. Use cool-mist vaporizer or humidifier. Call if no improvement in 7-10 days, sooner if increasing cough, fever, or new symptoms. Patient verbalizes understanding. If no improvement at that time will consider changing drug class and/or refer to ENT for CT or MRI. Ordered: amoxicillin-clavulanate, = 1 tab(s), Oral, q12hr, X 7 day(s), # 14 tab(s), Refills(s) 0, Pharmacy: [facility] #[id number], 175, cm, 09/04/24 10:42:00 EDT, Height/Length Dosing, 133.3, kg, 09/04/24 10:49:00 EDT, Weight Dosing guaifenesin-pseudoephedrine , 1 tab(s), Oral, q12hr for 7 day(s), 14 tab(s), Refill(s) 0, [facility] #[id number], 175, cm, 09/04/24 10:42:00 EDT, Height/Length Dosing, 133.3, kg, 09/04/24 10:49:00 EDT, Weight Dosing 2. BMI 40.0-44.9, adult (Z68.41: Body mass index [BMI] 40.0-44.9, adult) The standard range for ages 18 and older is >=18.5 and < 25 kg/m2. Your BMI today was above this range, this falls in the overweight to obese category and there are medical benefits to weight loss. We can offer counselling, referral, and/or medical support in addressing this problem. Your BMI and weight management will be followed at subsequent visits. Ordered: Body Mass Index (BMI) documented 3008F Current tobacco non-user 1036F (more content not included)... Normal [facility] Comment on above: Result Comment: Elec tronically Signed By: Rell FERRER, Irasema Medley\.br\Date and Time Signed: 09/04/24 11:19 EDT Ambulatory Visit Summaryon 0 08-15-2024 Ambulatory Visit Summary Ambulatory Visit Summary ALMA DELIA PEARL :1985 Visit Date:08/14/2024 Ambulatory Visit Instructions Your Diagnosis Medicare annual wellness visit, subsequent Bipolar disorder, current episode depressed, moderate Type 2 diabetes mellitus with hyperlipidemia Breast cancer screening by mammogram Hyperlipidemia Crohn disease These Are Your Goals Diabetes Mellitus-Improve glucose levels Interventions: Complete lab work as ordered. Increase daily exercise to 60 minutes a day. Review education pamphlets/books. Take a fasting glucose every morning. Obesity-Lose weight current weight 286.2 Interventions: Increase daily exercise to 60 minutes a day Make better food choices. Review balance diet pamphlet. Chronic pain-decrease back pain. Interventions: Continue with appointments at [facility] pain [facility]. Increase daily exercise Lose weight [...] albuterol (albuterol 0.083% Inh Padma 3 mL) brexpiprazole (Rexulti 3 mg oral tablet) bupropion-dextromethorphan (Auvelity 45 mg-105 mg oral tablet, extended release) busPIRone (busPIRone 15 mg Tab) diclofenac topical (Voltaren Gel 1% Gel) fluticasone nasal (Flonase 0.05 mg/inh [place]) hydrOXYzine (hydrOXYzine pamoate 25 mg Cap) lidocaine topical (lidocaine Top 5% film Patch) loperamide (Imodium A-D EZ Chews 2 mg oral tablet, chewable) nystatin topical (nystatin Top 100,000 units/g Crm 15 gram) omeprazole (omeprazole 40 mg Cap-DR) ondansetron (Zofran 4 mg Tab) pregabalin (pregabalin 25 mg Cap) promethazine (promethazine 25 mg Tab) tirzepatide (Mounjaro) tizanidine (tiZANidine 4 mg Tab) trazodone (traZODONE 150 mg Tab) verapamil (verapamil 120 mg ER Tab) Procedures Performed Cyst of breast (12/21/2023), Colonoscopy (02/01/2018), EGD & Colonoscopy (06/01/2016), EGD & Colooscopy (07/31/2014), Colonoscopy (04/28/2012), Colonoscopy, Decompression of lumbar spine, laproscopy x3, Tonsillectomy. Discharge Vitals Heart Rate (Peripheral) 83 Blood Pressure 118/82 Height 175.26 cm Height 69 in Weight 135 kg Weight 297.624 lb BMI 43.95 What to do next Scheduled Follow-Up Appointments Tuesday 11:30 AM EDT With: Where: Physical Therapy Tuesday 10:00 AM EDT With: Rell FERRER, Irasema Medley Where: [facility] [address] [place] [address] Tuesday2025 11:00 AM EDT With: Where: [facility] [address] [place] [address]- You Need to Complete the Following CBC w/ Auto Diff, Blood, Routine collect, 08/14/24, Order for future visit, Lab Collect, Routine adult health maintenance, Required & Missing, Print Label By Order Location Comprehensive Metabolic Panel, Blood, Routine collect, 08/14/24, Order for future visit, Lab Collect, Routine adult health maintenance, Not Required, Print Label By Order Location Ferritin, Blood, Routine collect, 08/14/24, Order for future visit, Lab Collect, Routine adult health maintenance, Required & Missing, Print Label By Order Location Iron Percent Saturation, Blood, Routine collect, 08/14/24, Order for future visit, Lab Collect, Routine adult health maintenance, Print Label By Order Location Lipid Panel, Blood, Routine collect, 08/14/24, Order for future visit, Lab Collect, Lipid screening, Required & Missing, Print Label By Order Location TIBC Calculated, Blood, Routine collect, 08/14/24, Order for future visit, Lab Collect, Routine adult health maintenance, Required & Missing, Print Label By Order Location Vitamin D 25 Hydroxy, Blood, Routine collect, 08/14/24, Order for future visit, Lab Collect, Routine adult health maintenance, Required & Missing, Print Label By Order Location MA Mamm Screen w/CAD if perf and 3D [place], 08/14/24, Routine, Order for Future Visit, Transport Mode: Ambulatory, Reason: Screening, No, Breast cancer screening by mammogram, last completed 06/03/2023., pp_set_radiology_subspecial ty, Not Required, [facility] Medications What How Much When Why Instructions Changed Misc Prescription (lancets) See instructions lancets test daily E11.9 Changed Misc Prescription (na) See instructions provide patient with lancets and glucometer strips. Check glucose daily. Changed Misc Prescription (Nebulizer and supplies) See instructions Pt requires nebulizer and tubing/ supplies DX: J45.909 Changed M (more content not included)... Normal [facility] CBC w/ Auto Diffon 5 Basophils/100 WBC (Bld) 0.3 % Normal 0.0-2.0 [facility] Comment on above: Performed By: #### 2 [id number] #### [facility] [address] [place] [address] Basophils/Leukocytes Auto (Bld) [Pure # fraction] 0.0 E9/L Normal 0.0-0.2 [facility] Comment on above: Performed By: #### 2 [id number] #### [facility] [address] [place] [address] Eosinophils (Bld) [#/Vol] 0.1 E9/L Normal 0.0-0.5 [facility] Comment on above: Performed By: #### 2 [id number] #### [facility] [address] [place] [address] Eosinophils/100 WBC (Bld) 1.1 % Normal 0.0-8.0 [facility] Comment on above: Performed By: #### 2 [id number] #### [facility] [address] [place] [address] Erythrocyte distribution width (RBC) [Ratio] 14.3 % High 10.9-14.2 [facility] Comment on above: Performed By: #### 2 [id number] #### [facility] [address] [place] [address] Hematocrit (Bld) [Volume fraction] 35.7 % Normal 34.0-46.0 [facility] Comment on above: Performed By: #### 2 [id number] #### [facility] [address] [place] [address] Hemoglobin (Bld) [Mass/Vol] 12.1 g/dL Normal 12.0-16.0 [facility] Comment on above: Performed By: #### 2 [id number] #### [facility] [address] [place] [address] Lymphocytes (Bld) [#/Vol] 2.3 E9/L Normal 1.0-4.0 [facility] Comment on above: Performed By: #### 2 [id number] #### [facility] [address] [place] [address] Lymphocytes/100 WBC (Bld) 21.6 % Normal 14.0-50.0 [facility] Comment on above: Performed By: #### 2 [id number] #### [facility] [address] [place] [address] MCH (RBC) [Entitic mass] 27.6 pg Normal 27.0-34.0 [facility] Comment on above: Performed By: #### 2 [id number] #### [facility] [address] [place] [address] MCHC (RBC) [Mass/Vol] 33.9 g/dL Normal 31.4-36.0 [facility] Comment on above: Performed By: #### 2 [id number] #### [facility] [address] [place] [address] MCV (RBC) [Entitic vol] 81.4 fL Normal 80.0-100.0 [facility] Comment on above: Performed By: #### 2 [id number] #### [facility] [address] [place] [address] Monocytes (Bld) [#/Vol] 0.6 E9/L Normal 0.2-1.0 [facility] Comment on above: Performed By: #### 2 [id number] #### [facility] [address] [place] [address] Neutrophils (Bld) [#/Vol] 7.7 E9/L High 2.0-7.5 [facility] Comment on above: Performed By: #### 2 [id number] #### [facility] [address] [place] [address] Neutrophils/100 WBC (Bld) 71.2 % Normal 36.0-75.0 [facility] Comment on above: Performed By: #### 2 [id number] #### [facility] [address] [place] [address] Platelet 272.0 E9/L Normal 150.0-500. 0 [facility] Comment on above: Performed By: #### 2 [id number] #### [facility] [address] [place] [address] Platelet mean volume (Bld) [Entitic vol] 8.5 fL Normal 6.4-10.8 [facility] Comment on above: Performed By: #### 2 [id number] #### [facility] [address] [place] [address] RBC (Bld) [#/Vol] 4.4 E12/L Normal 4.3-5.9 [facility] Comment on above: Performed By: #### 2 [id number] #### [facility] [address] [place] [address] WBC corrected for nucl RBC Auto (Bld) [#/Vol] 10.9 E9/L Normal 4.0-11.0 [facility] Comment on above: Performed By: #### 2 [id number] #### [facility] Laboratory [address] [place] [address] CHEMISTRYOrdered By: SYSTEM SYSTEM on 08-15-2024 25-hydroxyvitamin D3 [Mass/Vol] 11.9 ng/mL Low 30.0 - 100.0 ng/mL Remisol Chem Albumin [Mass/Vol] 4.2 g/dL Normal 3.3 - 5.0 gm/dL Remisol Chem Albumin/Globulin [Mass ratio] 1.4 {ratio} Normal 1.1 - 2.2 Remisol Chem ALP [Catalytic activity/Vol] 58 [iU]/d Normal 21 - 98 Int._Unit/ L Remisol Chem ALT No additional P-5'-P [Catalytic activity/Vol] 14 [iU]/d Normal 6 - 46 Int._Unit/ L Remisol Chem Anion gap [Moles/Vol] 12 mmol/L Normal 6 - 16 mEq/L [facility] Chem AST [Catalytic activity/Vol] 12 [iU]/d Normal 5 - 43 Int._Unit/ L Remisol Chem Bilirubin [Mass/Vol] 0.3 mg/dL Normal 0.0 - 1 .1 mg/dL [facility] Chem Calcium [Mass/Vol] 9.0 mg/dL Normal 8.9 - 11. 1 mg/dL [facility] Chem Chloride [Moles/Vol] 107 mmol/L Normal 101 - 1 11 mmol/L [facility] Cholesterol [Mass/Vol] 197 mg/dL Normal 120 - 200 mg/dL [facility] Chem Cholesterol in HDL [Mass/Vol] 45 mg/dL Invalid Interpretation Code Remisol Chem Comment on above: Result Comment: '>= 60 LOW RISK' '<= 40 HIGH RISK' Cholesterol in LDL [Mass/Vol] 130 mg/dL High <=129mg/dL Rem[facility] Chem Cholesterol in VLDL [Mass/Vol] 37 mg/dL Normal 7 - 40 mg/dL [facility] Chem CO2 [Moles/Vol] 23 mmol/L Normal 21 - 31 mmol/L [facility] Chem Creatinine [Mass/Vol] 0.9 mg/dL Normal 0.5 - 1.3 mg/dL [facility] Chem eGFR 83 mL/min/1.73 m2 Normal >=59mL/min /1.73 m2 [facility] Chem Ferritin [Mass/Vol] 18 ng/mL Normal 11 - 307 ng/mL Rem[facility] Chem Globulin (S) [Mass/Vol] 2.9 g/dL Normal 1.4 - 4.0 gm/dL [facility] Chem Glucose [Mass/Vol] 96 mg/dL Normal 55 - 199 mg/dL [facility] Chem Iron [Mass/Vol] 32 ug/dL Low 35 - 153 mcg/dL Rem[facility] Chem Iron binding capacity [Mass/Vol] 431 ug/dL High 250 - 400 mcg/dL Remisol Chem Iron saturation [Mass fraction] 7 % Low 20 - 50 % Remisol Chem Potassium [Moles/Vol] 3.6 mmol/L Normal 3.5 - 5.3 mmol/L Remisol Chem Protein [Mass/Vol] 7.1 g/dL Normal 6.0 - 7.8 gm/dL [facility] Chem Sodium [Moles/Vol] 138 mmol/L Normal 135 - 145 mmol/L [facility] Chem Transferrin [Mass/Vol] 308 mg/dL Normal 200 - 370 mg/dL [facility] Chem Triglyceride [Mass/Vol] 185 mg/dL High <=149mg/dL Rem[facility] Chem Urea nitrogen [Mass/Vol] 12 mg/dL Normal 5 - 21 mg/dL [facility] Chem Urea nitrogen/Creatinine [Mass ratio] 13 mg/mg Normal 10 - 20 Rem[facility] Chem CMPon 08-15-2024 Albumin [Mass/Vol] 4.2 g/dL Normal 3.3-5.0 [facility] Comment on above: Performed By: #### 2 [id number] #### [facility] Laboratory [address] [place] [address] Albumin/Globulin (S) [Mass conc ratio] 1.4 Normal 1.1-2.2 [facility] Comment on above: Performed By: #### 2 [id number] #### [facility] Laboratory [address] [place] [address] ALP [Catalytic activity/Vol] 58 Int._Unit/L Normal 21-98 [facility] Comment on above: Performed By: #### 2 [id number] #### [facility] Laboratory [address] [place] [address] ALT No additional P-5'-P [Catalytic activity/Vol] 14 Int._Unit/L Normal 6-46 [facility] Comment on above: Performed By: #### 2 [id number] #### [facility] Laboratory [address] [place] [address] Anion gap [Moles/Vol] 12 mmol/L Normal 6-16 [facility] Comment on above: Performed By: #### 2 [id number] #### [facility] Laboratory [address] [place] [address] AST [Catalytic activity/Vol] 12 Int._Unit/L Normal 5-43 [facility] Comment on above: Performed By: #### 2 [id number] #### [facility] Laboratory [address] [place] [address] Bilirubin [Mass/Vol] 0.3 mg/dL Normal 0.0-1.1 [facility] Comment on above: Performed By: #### 2 [id number] #### [facility] Laboratory [address] [place] [address] Calcium [Mass/Vol] 9.0 mg/dL Normal 8.9-11.1 [facility] Comment on above: Performed By: #### 2 [id number] #### [facility] Laboratory [address] [place] [address] Chloride [Moles/Vol] 107 mmol/L Normal 101-111 [facility] Comment on above: Performed By: #### 2 [id number] #### [facility] [address] [place] [address] CO2 [Moles/Vol] 23 mmol/L Normal 21-31 [facility] Comment on above: Performed By: #### 2 [id number] #### [facility] Laboratory [address] [place] [address] Creatinine [Mass/Vol] 0.9 mg/dL Normal 0.5-1.3 [facility] Comment on above: Performed By: #### 2 [id number] #### [facility] [address] [place] [address] Globulin (S) [Mass/Vol] 2.9 g/dL Normal 1.4-4.0 [facility] Comment on above: Performed By: #### 2 [id number] #### [facility] Laboratory [address] [place] [address] Glucose [Mass/Vol] 96 mg/dL Normal 55-199 [facility] Comment on above: Performed By: #### 2 [id number] #### [facility] Laboratory [address] [place] [address] Potassium [Moles/Vol] 3.6 mmol/L Normal 3.5-5.3 [facility] Comment on above: Performed By: #### 2 [id number] #### [facility] Laboratory [address] [place] [address] Protein [Mass/Vol] 7.1 g/dL Normal 6.0-7.8 [facility] Comment on above: Performed By: #### 2 [id number] #### [facility] [address] [place] [address] Sodium [Moles/Vol] 138 mmol/L Normal 135-145 [facility] Comment on above: Performed By: #### 2 [id number] #### [facility] [address] [place] [address] Urea nitrogen [Mass/Vol] 12 mg/dL Normal 5-21 [facility] Comment on above: Performed By: #### 2 [id number] #### [facility] [address] [place] [address] Urea nitrogen/Creatinine [Mass ratio] 13 No Units Normal 10-20 [facility] Comment on above: Performed By: #### 2 [id number] #### [facility] Laboratory [address] [place] [address] Family Medicine Office/Clini c Noteon 08-15-2024 Family Medicine Office/Clinic Note Family Medicine Office/Clinic Note Chief Complaint Subsequent Medicare Wellness Visit Physical Exam Vitals & Measurements HR: 83(Peripheral) BP: 118/82 SpO2: 99% HT: 175.26 cm HT: 69 in WT: 297.624 lb WT: 135 kg BMI: 43.95 Assessment/Plan 1. Medicare annual wellness visit, subsequent (Z00.00: Encounter for general adult medical examination without abnormal findings) A personalized print out of all the current AHRQ USPSTF???s recommendations for preventative services and all current CDC recommended immunizations, relevant risk recommendations provided upon request. Reviewed Medicare Prevention Services . [facility]-Falls Prevention and home safety screening. Patient denies any falls in last 12 months, voices no worry about falling. Exhibits no problems with sitting, standing or ambulation. Patient aware with keeping walk way area free of clutter to prevent tripping and/or falling. [place] Advance Directives reviewed. Encouraged to complete documents and bring in for scanning to chart. Patient denies any problems with ADL???s and Instrumental ADL???s. Cognitive screening completed with memory and clock face drawing. No deficits noted. Immunization record reviewed, discussed Shingrix vaccines and availability. COVID vaccines have been refused thus far. Allergies and medications reviewed and up to date. No concerns with taking medication as prescribed. Reviewed OTC medications, medication list up to date. Blood tests were reviewed: Labs up to date, will continue to follow up with labs per PCP. Colonoscopy last completed 02/27/2021, referral placed with PCP visit today. Reviewed pain symptoms : back pain, rates pain as a 5 out of 10, discussed with PCP visit today. Reviewed all outside providers that patient follows. Last visit summary notes available in chart and/or have been requested. Patient denies any signs or symptoms of depression at this time. 8 minutes spent with screening and documentation. PHQ2 screening score 0. Patient denies any alcohol intake at this time. 8 minutes spent with screening and documentation. Audit score 0. Follow up scheduled with PCP, 11/14/2024. AWV has been scheduled, 08/14/2025. 2. Bipolar disorder, current episode depressed, moderate (F31.32: Bipolar disorder, current episode depressed, moderate) Follows with Dr Valentin every 1-3 months. Taking medications as ordered, states effective. Denies any concerns/issues with visit today. Will continue to follow up with Psychiatry as needed. 3. Type 2 diabetes mellitus with hyperlipidemia (E11.69: Type 2 diabetes mellitus with other specified complication) ADA dietary recommendations encouraged with increased daily physical activity, adequate water intake, monitor carbs/chol and fats. Taking medication as ordered and does not monitor BS at home. Follows with DM foot check, reminded to perform at home foot checks to prevent future complications. DM eye exams completed yearly with Dr Magaña. Will continue to follow up with providers as needed. 4. Breast cancer screening by mammogram (Z12.31: Encounter for screening mammogram for malignant neoplasm of breast) Mammogram last completed 06/03/2023. Encouraged to continue with home self breast exam. Mammogram has been ordered, to schedule self at a later time. 5. Hyperlipidemia (E78.5: Hyperlipidemia, unspecified) Encouraged to eat a diet that is low in saturated fats. Stressed importance of loosing weight as being overweight does produce more lipids. Risks may also increase with a family history of hyperlipidemia. Encouraged with healthy dietary choices to reduce risk factors associated with CVA. No Statin medication taken at this time. Will continue to follow up with labs as directed. 6. Crohn disease (K50.90: Crohn's disease, unspecified, without complications) Discussed BM issues art PCP visit today. Referral placed for [facility]. Follow-up No qualifying data available Patient Education Diabetes Mellitus and Nutrition, Adult BMI for Adults Mammogram High Triglycerides Eating Plan Problem List/Past Medical History Ongoing Amenorrhea Bipolar disorder, current episode depressed, moderate Crohn disease Dysmenorrhea Factor V Leiden Fibromyalgia Galactorrhea in female GERD (gastroesophageal reflux disease) Hyperlipidemia Infected sebaceous cyst Lipid screening Lumbar back pain with radiculopathy affecting right lower extremity Lung nodule Migraine Mild intermittent asthma Mixed incontinence Non-smoker OAB (overactive bladder) DIETER (obstructive sleep apnea) PCOS (polycystic ovarian syndrome) Routine adult health maintenance Type 2 diabetes mellitus with hyperlipidemia Historical Bipolar crohns Depression Diabetes mellitus Fibromyalgia Gastroesophageal reflux disease Migraine Procedure/Surgical History Cyst of breast (12/21/2023), Colonoscopy (02/01/2018), EGD & Colonoscopy (06/01/2016), EGD & Colooscopy (07/31/2014), Colonoscopy (04/28/2012), Colonoscopy, Decompressi (more content not included)... Normal [facility] Comment on above: Result Comment: Elec tronically Signed By: Irasema Love\.br\Date and Time Signed: 08/15/24 08:04 EDT\.br\Electronically Co-Signed By: Bianca Bear LPN.br\Date and Time Co-Signed: 08/14/24 16:32 EDT Ferritinon 08-15-2024 Ferritin [Mass/Vol] 18 ng/mL Normal 11-307 [facility] Comment on above: Performed By: #### 2 [id number] #### [facility] Laboratory [address] [place] [address] HEMATOLOGYOrdered By: SYSTEM SYSTEM on 08-15-2024 Basophils/100 WBC (Bld) 0.3 % Normal 0.0 - 2.0 % Remisol Heme Basophils/Leukocytes Auto (Bld) [Pure # fraction] 0.0 E9/L Normal 0.0 - 0.2 E9/L Rem[facility] Heme Eosinophils (Bld) [#/Vol] 0.1 E9/L Normal 0.0 - 0.5 E9/L Rem[facility] Heme Eosinophils/100 WBC (Bld) 1.1 % Normal 0.0 - 8.0 % Remisol Heme Erythrocyte distribution width (RBC) [Ratio] 14.3 % High 10.9 - 14.2 % Remisol Heme Hematocrit (Bld) [Volume fraction] 35.7 % Normal 34.0 - 46.0 % Remisol Heme Hemoglobin (Bld) [Mass/Vol] 12.1 g/dL Normal 12.0 - 16.0 gm/dL Rem[facility] Heme Lymphocytes (Bld) [#/Vol] 2.3 E9/L Normal 1.0 - 4.0 E9/L [facility] Heme Lymphocytes/100 WBC (Bld) 21.6 % Normal 14.0 - 50.0 % Remisol Heme MCH (RBC) [Entitic mass] 27.6 pg Normal 27.0 - 34.0 pg Remisol Heme MCHC (RBC) [Mass/Vol] 33.9 g/dL Normal 31.4 - 36.0 gm/dL Remisol Heme MCV (RBC) [Entitic vol] 81.4 fL Normal 80.0 - 100.0 fL [facility] Heme Monocytes (Bld) [#/Vol] 0.6 E9/L Normal 0.2 - 1.0 E9/L [facility] Heme Monocytes/100 WBC (Bld) 5.8 % Normal 4.0 - 14.0 % [facility] Heme Neutrophils (Bld) [#/Vol] 7.7 E9/L High 2.0 - 7.5 E9/L Rem[facility] Heme Neutrophils/100 WBC (Bld) 71.2 % Normal 36.0 - 75.0 % [facility] Heme Platelet 272.0 E9/L Normal 150.0 - 500.0 E9/L Rem[facility] Heme Platelet mean volume (Bld) [Entitic vol] 8.5 fL Normal 6.4 - 10.8 fL Remisol Heme RBC (Bld) [#/Vol] 4.4 E12/L Normal 4.3 - 5.9 E12/L [facility] Heme WBC corrected for nucl RBC Auto (Bld) [#/Vol] 10.9 E9/L Normal 4.0 - 11.0 E9/L Rem[facility] Heme Ironon 08-15-2024 Iron [Mass/Vol] 32 microgram/dL Low 35-153 [facility] Comment on above: Order Comment: Iron order added by Discern Rule: [email or web address]_add_iron_trans . Performed By: #### 2 [id number] #### [facility] Laboratory [address] [place] [address] Iron Saturationon 08-15-2024 Iron binding capacity [Mass/Vol] 431 microgram/dL High 250-400 [facility] Comment on above: Performed By: #### 2 [id number] #### [facility] Laboratory [address] [place] [address] Iron saturation [Mass fraction] 7 % Low 20-50 [facility] Comment on above: Performed By: #### 2 [id number] #### [facility] Laboratory [address] [place] [address] Lipid Panelon 08-15-2024 Cholesterol [Mass/Vol] 197 mg/dL Normal 120-200 [facility] Comment on above: Performed By: #### 2 [id number] #### [facility] Laboratory [address] [place] [address] Cholesterol in HDL [Mass/Vol] 45 mg/dL Invalid Interpretation Code [facility] Comment on above: Result Comment: '>= 60 LOW RISK' '<= 40 HIGH RISK' Performed By: #### 2 [id number] #### [facility] Laboratory [address] [place] [address] Cholesterol in LDL [Mass/Vol] 130 mg/dL High <=129 [facility] Comment on above: Performed By: #### 2 [id number] #### [facility] [address] [place] [address] Cholesterol in VLDL [Mass/Vol] 37 mg/dL Normal 7-40 [facility] Comment on above: Performed By: #### 2 [id number] #### [facility] Laboratory [address] [place] [address] Triglyceride [Mass/Vol] 185 mg/dL High <=149 [facility] Comment on above: Performed By: #### 2 [id number] #### [facility] Laboratory [address] [place] [address] Transferrinon 08-15-2024 Transferrin [Mass/Vol] 308 mg/dL Normal 200-370 [facility] Comment on above: Order Comment: Trans brooklynn order added by Discern Rule: gl_ftmc_add_iron_trans . Performed By: #### 2 [id number] #### [facility] Laboratory [address] [place] [address] Vitamin D 25 Hydroxyon 08-15 25-hydroxyvitamin D3 [Mass/Vol] 11.9 ng/mL Low 30.0-100.0 [facility] Comment on above: Performed By: #### 5 [id number] #### [facility] Laboratory [address] [place] [address] eGFRon 08-15-2024 eGFR 83 mL/min/1.73 m2 Normal >=59 [facility] Comment on above: Performed By: #### 1 [id number] #### [facility] Laboratory [address] [place] [address] Ambulatory Visit Summaryon 0 08-14-2024 Ambulatory Visit Summary Ambulatory Visit Summary ALMA DELIA PEARL :1985 Visit Date:08/14/2024 Ambulatory Visit Instructions Your Diagnosis Lumbar back pain with radiculopathy affecting right lower extremity Bipolar disorder, current episode depressed, moderate Crohn disease Type 2 diabetes mellitus with hyperlipidemia BMI 40.0-44.9, adult Morbid obesity Lipid screening Routine adult health maintenance These Are Your Goals Diabetes Mellitus-Improve glucose levels Interventions: Complete lab work as ordered. Increase daily exercise to 60 minutes a day. Review education pamphlets/books. Take a fasting glucose every morning. Obesity-Lose weight current weight 286.2 Interventions: Increase daily exercise to 60 minutes a day Make better food choices. Review balance diet pamphlet. Chronic pain-decrease back pain. Interventions: Continue with appointments at [facility]. Increase daily exercise Lose weight [...] albuterol (albuterol 0.083% Inh Padma 3 mL) brexpiprazole (Rexulti 3 mg oral tablet) bupropion-dextromethorphan (Auvelity 45 mg-105 mg oral tablet, extended release) busPIRone (busPIRone 15 mg Tab) diclofenac topical (Voltaren Gel 1% Gel) fluticasone nasal (Flonase 0.05 mg/inh [place]) hydrOXYzine (hydrOXYzine pamoate 25 mg Cap) lidocaine topical (lidocaine Top 5% film Patch) loperamide (Imodium A-D EZ Chews 2 mg oral tablet, chewable) nystatin topical (nystatin Top 100,000 units/g Crm 15 gram) omeprazole (omeprazole 40 mg Cap-DR) ondansetron (Zofran 4 mg Tab) pregabalin (pregabalin 25 mg Cap) promethazine (promethazine 25 mg Tab) tirzepatide (Mounjaro) tizanidine (tiZANidine 4 mg Tab) trazodone (traZODONE 150 mg Tab) verapamil (verapamil 120 mg ER Tab) Procedures Performed Cyst of breast (12/21/2023), Colonoscopy (02/01/2018), EGD & Colonoscopy (06/01/2016), EGD & Colooscopy (07/31/2014), Colonoscopy (04/28/2012), Colonoscopy, Decompression of lumbar spine, laproscopy x3, Tonsillectomy. Discharge Vitals Heart Rate (Peripheral) 83 Respiratory Rate 16 Blood Pressure 118/82 Height 175 cm Height 69 in Weight 135 kg Weight 297.624 lb BMI 44.08 What to do next Scheduled Follow-Up Appointments Tuesday 10:00 AM EDT With: Irasema Love Where: [facility] [address] [place] [address]- [id number] 11:00 AM EDT With: Where: [facility] [address] [place] [address]- You Need to Schedule the Following Appointments Follow Up with Irasema Love When: In 3 months Comments: f/u DM, asthma, CCM Where: [address] [place] [address]- You Need to Complete the Following CBC w/ Auto Diff, Blood, Routine collect, 08/14/24, Order for future visit, Lab Collect, Routine adult health maintenance, Required & Missing, Print Label By Order Location Comprehensive Metabolic Panel, Blood, Routine collect, 08/14/24, Order for future visit, Lab Collect, Routine adult health maintenance, Not Required, Print Label By Order Location Ferritin, Blood, Routine collect, 08/14/24, Order for future visit, Lab Collect, Routine adult health maintenance, Required & Missing, Print Label By Order Location Iron Percent Saturation, Blood, Routine collect, 08/14/24, Order for future visit, Lab Collect, Routine adult health maintenance, Print Label By Order Location Lipid Panel, Blood, Routine collect, 08/14/24, Order for future visit, Lab Collect, Lipid screening, Required & Missing, Print Label By Order Location TIBC Calculated, Blood, Routine collect, 08/14/24, Order for future visit, Lab Collect, Routine adult health maintenance, Required & Missing, Print Label By Order Location Vitamin D 25 Hydroxy, Blood, Routine collect, 08/14/24, Order for future visit, Lab Collect, Routine adult health maintenance, Required & Missing, Print Label By Order Location Medications What How Much When Why Instructions New diclofenac topical (Voltaren Gel 1% Gel) 1 Application Topical 4 times a day as needed for for pain Lumbar back pain with radiculopathy affecting right lower extremity Pickup at [id number] New lidocaine topical (lidocaine Top 5% film Patch) 1 Patches Topical Every day Refills: 1 apply 12 hours on and 12 hours off daily Pickup at [facility] (more content not included)... Normal [facility] Family Medicine Office/Clini c Noteon 08-14-2024 Family Medicine Office/Clinic Note Family Medicine Office/Clinic Note Chief Complaint ER f/u HPI Staff [facility] ER f/u [facility] 07/31/24 back Pain admin toradol IM, RX'd lidocaine patches, medrol dosepak, tizanidine and naproxen Concerns Today: Wondering if PT would be helpful. Not using lidocaine patches, took whole medrol maura, still using tizanidine, not using naproxen too hard on stomach, taking tylenol. States med from ER helpful, taking tizanidine at night helps her move better next day. Still gets stuck sometimes. Like I get stuck in a position or I can't stand up straight. *seeing Bianca for AWV today Mod 25 History of Present Illness Alma Delia is a 39 yo female presenting today for ED f/u d/t low back pain on 07/31/24 Dx with low back pain/strain and lumbar radiculopathy. XR lumbar spine: Straightening of the lumbar lordosis. Lumbar vertebral body heights are maintained. Mild intervertebral disc height loss at L4-L5 and L5-S1. Facet arthropathy at L4-L5 and L5-S1. Mild degenerative endplate spurring of the mid and lower lumbar spine. No acute fracture. No spondylolysis or spondylolisthesis. Treated with ketorolac, lidocaine patches, naproxen, tizanidine and steroid dose maura Location: low back bilateral sides Trauma/injury: squatting down low/getting out of car quickly Duration: constant after acute pulling sensation occurred Pain severity: 5 /10 Pain characteristics: stiffness, constant ache, burning Stability/progression of symptoms: improving What makes pain worse: walking, standing for long durations What makes pain better: laying down Numbness/burning/tingling down legs: no Gait disturbance: no Weakness: no Loss of bowel/bladder.saddle anesthesia: no Use of recent steroids, muscle relaxers, NSAIDs: yes Urine/bowel changes: no Flank pain or hx of kidney stones: no T2DM - follows with [facility] endo - taking mounjaro 5mg/week Crohn's disease - used to follow with GI at [facility]. Wants referred to [facility] d/t ongoing rectal bleeding Review of Systems PHQ Score Initial Depression Screen Score: 2 SCORE Physical Exam Vitals & Measurements HR: 83(Peripheral) RR: 16 BP: 118/82 SpO2: 99% HT: 69 in HT: 175 cm WT: 297.624 lb WT: 135 kg BMI: 44.08 General: Well developed, well nourished, in no [...] Mouth: mucous membranes pink, moist and intact. [place] posterior oropharynx, no palatal inflammation, uvula midline, [...] x3. Normal mood and affect Assessment/Plan 1. Lumbar back pain with radiculopathy affecting right lower extremity (M54.16: Radiculopathy, lumbar region) Follow RICE protocols use cold therapy PRN use topical Voltaren gel PRN for flare up refill tizanidine 4mg q8hr only PRN for flare up refill lidocaine patches only PRN for flare up referral submitted to PT if flare ups become more consistent or worsening in pain - will send referral at pt's request to PM to be considered for steroid injections Ordered: diclofenac topical, 1 carlo, Topical, QID for pain, 100 gram, Refill(s) 0, [facility] #[id number], 175, cm, 08/14/24 11:49:00 EDT, Height/Length Dosing, 135, kg, 08/14/24 11:49:00 EDT, Weight Dosing tizanidine, 4 mg = 1 tab(s), Oral, q8hr, # 42 tab(s), Refills(s) 0, Pharmacy: [facility] #[id number], 175, cm, 08/14/24 11:49:00 EDT, Height/Length Dosing, 135, kg, 08/14/24 11:49:00 EDT, Weight Dosing [facility] Outpatient Physical Therapy Evaluate Patient, Develop a Plan of Care, & Implement Plan 2. Bipolar disorder, current episode depressed, moderate (F31.32: Bipolar disorder, current episode depressed, moderate) chronic stable continue Rexulti, buspirone and f/u with Ch (more content not included)... Normal [facility] Comment on above: Result Comment: Elec tronically Signed By: Rell FERRER, Irasema Medley\.br\Date and Time Signed: 08/14/24 12:25 EDT ED Note-Physicianon 08-03-19 ED Note-Physician ED Note-Physician Basic Information Time Seen: Rihcard Thornton PA-C 08/01/2024 17:22 Chief Complaint pt reports hx of back issues, has bent over/squatted down recently and has had a tearing feelingin the low back. History of Present Illness Patient is a 39-year-old female who presents today for evaluation of her right sided lower back pain. Patient states that she has a history of back issues but has been doing well for a couple of years. Recently she started having some issues with reinjuring her back constantly. States yesterday that she went to get out of the car and could not stand erect and felt spasming as well as a tearing sensation in her lower back. Happened again while bending over today. Has just had increased pain. Notes that she has chronic numbness and tingling in the right anterior aspect of her thigh since her initial symptoms of her back pain years ago. Denies any saddle anesthesia, loss of bowel or bladder control, or lower extremity weakness. Review of Systems No other aggravating or relieving factors no other associated symptoms no other prior treatments or complaints. Family: Reviewed and noncontributory Social: lives at home Review of systems negative unless otherwise specified in the HPI. Physical Exam Vitals & Measurements HR: 96(Peripheral) RR: 17 BP: 111/69 SpO2: 96% HT: 175 cm WT: 136.9 kg BMI: 44.7 Vital Signs reviewed and noted. General: Alert, no acute distress, patient resting comfortably Skin: warm, intact, no pallor noted Head: Normocephalic, atraumatic Eye: Normal conjunctiva Cardiac: Normal peripheral perfusion Respiratory: No acute distress Musculoskeletal: No deformity, full ROM. Lumbar spine: There is no focal tenderness to palpation throughout the lumbar spine. There is paraspinal musculature tenderness noted with some spasming of the soft tissues on the right side. Negative straight leg raise. No step-off or crepitus appreciated. Intact strength and sensation to bilateral lower extremities. DPP 2+ bilaterally. Neurological: alert and oriented, normal sensory and motor observed. Psychiatric: Cooperative Medical Decision Making Patient is a 39-year-old female presents today for evaluation of her right-sided lower back pain. She has had chronic back pain but was doing well for a couple years until recently where she continually reinjured her back. Denies any signs or symptoms for cauda equina syndrome. On exam the patient is nontoxic-appearing. No focal bony tenderness to palpation throughout the lumbar spine. There is paraspinal muscular tenderness noted with spasming of the soft tissues in the right side. Negative straight leg raise bilaterally. Intact strength and sensation to bilateral lower extremities. DPP 2+ bilaterally. 3 view lumbosacral x-rays interpreted by myself are negative for any acute fracture or subluxation but do demonstrate disc height loss L4-S1. Discussed with the patient that she likely has a lumbar strain as well as possible radicular pain stemming from L4-S1 degenerative disc disease. Given the chronicity of this issue we will provide her with Dr. Pastor neurosurgery for close outpatient follow-up and will provide her with Medrol Dosepak, naproxen, tizanidine, topical lidocaine patches for symptomatic management. Did provide her with IM Toradol here in the ED. She be discharged home with close follow-up with Dr. Pastor and her PCP. Return to ED precautions were reviewed with the patient at length. Assessment/Plan Low back pain (M54.50: Low back pain, unspecified) Low back strain (S39.012A: Strain of muscle, fascia and tendon of lower back, initial encounter) Lumbar radiculopathy (M54.16: Radiculopathy, lumbar region) Orders: ketorolac, 30 mg = 1 mL, Injection, IntraMuscular, Once, Stop date 08/01/24 17:50:00 EDT, STAT, Start date 08/01/24 17:50:00 EDT, 08/01/24 17:50:00 EDT lidocaine topical, 1 patch(es), Topical, Daily, 7 patch(es), Refill(s) 0, apply 12 hours on and 12 hours off daily, [facility] #[id number], 175, cm, 08/01/24 17:24:00 EDT, Height/Length Dosing, 136.9, kg, 08/01/24 17:24:00 EDT, Weight Dosing methylPREDNISolone, = 1 packet(s), Oral, As Directed, as directed on package labeling, X 6 day(s), # 21 tab(s), Refills(s) 0, Pharmacy: [facility] #[id number], 175, cm, 08/01/24 17:24:00 EDT, Height/Length Dosing, 136.9, kg, 08/01/24 17:24:00 EDT, Weight Dosing naproxen, 500 mg = 1 tab(s), Oral, BID, X 10 day(s), # 20 tab(s), Refills(s) 0, Pharmacy: [facility] #[id number], 175, cm, 08/01/24 17:24:00 EDT, Height/Length Dosing, 136.9, kg, 08/01/24 17:24:00 EDT, Weight Dosing tizanidine, 2 mg = 1 tab(s), Oral, q8hr, X 7 day(s), # 21 tab(s), Refills(s) 0, Pharmacy: [facility] #[id number], 175, cm, 08/01/24 17:24:00 EDT, Height/Length Dosing, 136.9, kg, 08/01/24 17:24:00 EDT, Weight Dosing XR Spine Lumbosacral 2 or 3 Views Medications Administered Given ketorolac 30 mg/mL Inj 1 mL, 30 mg, IntraMuscular Disposition Plan Patient Discharge (more content not included)... Normal [facility] Comment on above: Result Comment: Elec tronically Signed By: Richard Thornton PA-C\.br\Date and Time Signed: 08/01/24 19:16 EDT\.br\Electronically Co-Signed By: James Faulkner DO.br\Date and Time Co-Signed: 08/02/24 07:09 EDT XR Spine Lumbosacral 2 or 3 Viewson 08-02-2024 XR Spine Lumbosacral 2 or 3 Views Exam Date/Time: 08/01/2024 18:12 EDT Reason for Exam: Pain, Traumatic Report IMPRESSION: NO ACUTE OSSEOUS ABNORMALITY. DEGENERATIVE CHANGES OF THE LOWER LUMBAR SPINE. EXAMINATION: XR Spine Lumbosacral 2 or 3 Views TECHNIQUE: AP and lateral views of lumbar spine and coned-down lateral view of the lumbosacral junction. HISTORY: Low back pain COMPARISONS: None available. FINDINGS: Straightening of the lumbar lordosis. Lumbar vertebral body heights are maintained. Mild intervertebral disc height loss at L4-L5 and L5-S1. Facet arthropathy at L4-L5 and L5-S1. Mild degenerative endplate spurring of the mid and lower lumbar spine. No acute fracture. No spondylolysis or spondylolisthesis. Ordering Provider: Richard Thornton FINAL REPORT Dictated: 08/02/2024 9:18 am Eric De Leon DO Signed (Electronic Signature): 08/02/2024 9:18 am Signed by: Eric De Leon DO Transcribed by: ABBY Technologist: SUZANNE Price [facility] ED Clinical Summaryon 2024 ED Clinical Summary ED Clinical Summary [address] [address] ED Clinical Summary Person Information Name: ALMA DELIA PEARL [place] Age: 39 Years : 1985 Sex: Female Language: Nigerian PCP: Irasema Love Marital Status: MRN: Visit Id: Visit Reason: Back pain; BACK PAIN. Speciality: Acuity: 4 Enc Type: Emergency Med Service: Emergency Arrival: 08/01/2024 17:19:35 Discharge: 08/01/2024 18:51:32 LOS: 000 01:32 Checkin: 08/01/2024 17:19:35 Checkout: 08/01/2024 18:51:32 Dispo Type: Home (Routine DC) EVENTS: Event Name Event Status Request Date/Time Start Date/Time Complete Date/Time Arrive Complete 08/01/2024 17:19:35 08/01/2024 17:19:35 08/01/2024 17:19:35 Document Home Meds Request 08/01/2024 17:19:35 Triage Complete 08/01/2024 17:19:35 08/01/2024 17:24:13 08/01/2024 17:24:13 Bed Assign Complete 08/01/2024 17:21:39 08/01/2024 17:21:39 08/01/2024 17:21:39 Dr Exam Complete 08/01/2024 17:21:39 08/01/2024 17:22:29 08/01/2024 17:22:29 RN Exam Complete 08/01/2024 17:21:39 08/01/2024 17:26:02 08/01/2024 17:26:02 Registration Complete 08/01/2024 17:22:29 08/01/2024 17:24:09 08/01/2024 17:24:09 Reg Complete Request 08/01/2024 17:24:09 Reg Bed Request Complete 08/01/2024 17:24:09 08/01/2024 17:24:09 08/01/2024 17:24:09 Dr Exam Complete 08/01/2024 17:24:38 08/01/2024 17:24:38 08/01/2024 17:24:38 Registration Request 08/01/2024 17:24:38 Dr Exam Complete 08/01/2024 17:27:03 08/01/2024 17:27:03 08/01/2024 17:27:03 X-Ray Complete 08/01/2024 17:50:34 08/01/2024 17:54:49 08/01/2024 18:12:38 Meds Admin Complete 08/01/2024 17:50:53 08/01/2024 18:20:58 Wet Read Request 08/01/2024 18:12:38 Discharge Complete 08/01/2024 18:38:23 08/01/2024 18:51:38 08/01/2024 18:51:38 Transfer Complete 08/01/2024 18:51:39 08/01/2024 18:51:39 08/01/2024 18:51:39 ADDRESS: [address] [place] [phone] PHYS DOC NOTES: MEDICAL INFORMATION: Prescriptions Given: New Medications [facility] #[id number], [address] [place] [phone], [phone] lidocaine topical (lidocaine Top 5% film Patch) 1 Patches Topical every day. apply 12 hours on and 12 hours off daily. Refills: 0. methylPREDNISolone (Medrol 4 mg Tab) 1 Packets By Mouth As Directed for 6 Days. as directed on package labeling. Refills: 0. naproxen (naproxen 500 mg Tab) 1 Tablets By Mouth 2 times a day for 10 Days. Refills: 0. tizanidine (tiZANidine 2 mg Tab) 1 Tablets By Mouth every 8 hours for 7 Days. Refills: 0. Medications to Continue with No Changes Other Medications albuterol (Albuterol (Eqv-ProAir HFA) 90 mcg/inh inhalation aerosol) 2 Puffs Inhalation every 6 hours. Refills: 4. albuterol (albuterol 0.083% Inh Padma 3 mL) 0.083% - 3mL dosing units Inhalation every 4 hours as needed Wheezing. Refills: 11. brexpiprazole (Rexulti 3 mg oral tablet) 1 Tablets By Mouth every day. bupropion-dextromethorphan (Auvelity 45 mg-105 mg oral tablet, extended release) 1 Tablets By Mouth 2 times a day. busPIRone (busPIRone 15 mg Tab) 1 Tablets By Mouth 3 times a day. fluticasone nasal (Flonase 0.05 mg/inh [place]) 1 Sprays Nasal Inhalation 2 times a day. each nostril. Refills: 5. galcanezumab (Emgality Prefilled Pen 120 mg/mL subcutaneous solution) Subcutaneous once a month. ADMINISTER 1 ML UNDER THE SKIN MONTHLY. hydrOXYzine (hydrOXYzine pamoate 25 mg Cap) 1 Capsules By Mouth as needed as needed for anxiety. TAKE 1 CAPSULE BY MOUTH EVERY 6 HOURS NEEDED FOR ANXIETY. loperamide (Imodium A-D EZ Chews 2 mg oral tablet, chewable) 1 Tablets Chewed every 4 hours as needed Diarrhea. Refills: 0. Misc Prescription (lancets) lancets test daily E11.9. [...] high or low blood sugars. Refills: 2. nystatin topical (nystatin Top 100,000 units/g Crm 15 gram) 1 Application Topical 2 times a day. Refills: 1. omeprazole (omeprazole 40 mg Cap-DR) 1 Capsules By Mouth 2 times a day. TAKE 1 CAPSULE BY MOUTH TWICE DAILY. ondansetron (Zofran 4 mg Tab) 1 Tablets By Mouth every 8 hours as needed Nausea/Vomiting. Refills: 0. pregabalin (pregabalin 25 mg Cap) 1 Capsules By Mouth 2 times a day. promethazine (promethazine 25 mg Tab) 1 Tablets By Mouth 3 times a day. Refills: 0. tirzepatide (Mounjaro) Subcutaneous every week. Fridays. trazodone (traZODONE 150 mg (more content not included)... Normal [facility] ED Patient Summaryon 025 ED Patient Summary ED Patient Summary [address] [address] Patient Discharge Instructions Person Information Name: ALMA DELIA PEARL Age: 39 Years Arrival Date: 08/01/2024 17:19:35 Discharge Diagnosis: Low back pain; Low back strain; Lumbar radiculopathy Primary Care Physician: Irasema Love Provider Information Primary Provider: Jaems Faulkner DO Advanced Manager Medical Affairs:Richard Thornton PA-C The exam and treatment you received in the Emergency Department were for an urgent problem and are not intended as complete care. It is important that you follow up with a doctor, nurse practitioner, or physician???s clinical medical assistant for ongoing care. If your symptoms become worse or you do not improve as expected and you are unable to reach your usual health care provider, you should return to the Emergency Department. We are available 24 hours a day. ALMA DELAI PEARL has been given the following list of patient education materials, prescriptions and follow-up instructions: Follow-up Instructions: With: Address: When: Rod Pastor [address] [address] [facility], [address] [place] [address] [phone] Business (1) In 3 days 08/04/2024 With: Address: When: Irasema Zacarias [address] [place] [address], [place] [address] Business (1) In 3 days In the event that this physician does not participate in your insurance network, please consult with your insurance company to find a nearby participating provider. Patient Education Materials: Lumbosacral Radiculopathy; Acute Back Pain, Adult A MESSAGE TO ALL PATIENTS REGARDING OPIOIDS PRESCRIPTION OPIOIDS: WHAT YOU NEED TO KNOW Prescription opioids can be used to help relieve ghlesjts-rg-mlqegb pain and are often prescribed following a [...] as well, even when taken as directed: ??? Tolerance???meaning you might need to take more of the medication for the same pain relief ??? Physical dependence???meaning you have symptoms of withdrawal when a medication is stopped ??? Increased sensitivity to pain ??? Constipation ??? Nausea, vomiting, and dry mouth ??? Sleepiness and dizziness ??? Confusion ??? Depression ??? Low levels of testosterone that can result in lower sex drive, energy, and strength ??? Itching and sweating RISKS ARE GREATER WITH: ??? History of drug misuse, substance use disorder, or overdose ??? Mental health conditions (such as depression or anxiety) ??? Sleep apnea ??? Older age (65 years and older) ??? Avoid alcohol while taking prescription opioids. Also, unless specifically advised by your health care provider, medications to avoid include: ??? Benzodiazepines (such as Xanax or Valium) ??? Muscle relaxants (such as Soma or Flexeril) ??? Hypnotics (such as Ambien or Lunesta) ??? Other prescription opioids KNOW YOUR OPTIONS Talk to your health care provider about ways to manage your pain that don???t involve prescription opioids. Some of these options may actually work better and have fewer risks and side effects. Options may include: ??? Pain relievers such as acetaminophen, ibuprofen, and naproxen ??? Some medication that are also used for depression or seizures ??? Physical therapy and exercise ??? Cognitive behavioral therapy, a psychological, goal-directed approach, in which patients learn how to modify physical, behavioral, and emotional triggers of pain and stress. IF YOU ARE PRESCRIBED OPIOIDS FOR PAIN: ??? Never take opioids in greater amounts or more often than prescribed. ??? Follow up with your primary health care provider. o Work together to create a plan on how to manage your pain. o Talk about ways to help manage your pain that don???t involve prescription opioids. o Talk about any and all concerns and side effects. ??? Help prevent misuse and abuse o Never sell or share prescription opioids. o Never use another person???s prescription opioids. ??? Store prescription opioids in a secure place and out of reach of others (this may include visitors, children, friends, and family). ??? Safely dispose of unused prescription opioids: Find your community drug take-back program or your pharmacy mail-back program, or flush them down the toilet, following guidance from the Food and Drug Administration (www.fda.gov/Drugs/ (more content not included)... Normal [facility] ED Note-Physicianon 06-30-19 ED Note-Physician ED Note-Physician Basic Information Time Seen: Lance Dumont PA-C 06/29/2024 15:04 Chief Complaint Pt presents to ED with complaints of nasuea and diarrhea onset through the night History of Present Illness 39-year-old female comes to the ED for evaluation of nausea and diarrhea. Symptoms started earlier this morning with diarrhea. She now has mild abdominal cramping with associated nausea but no vomiting. No fever or chills. No recent travel, sick contacts or bad food. No history infectious diarrhea. No recent antibiotics or hospitalizations. She is questioning if this related to her recent increase in her doses of Mounjaro. She has had previous laparoscopic abdominal surgery for endometriosis. She has no urinary complaints. No concerns for with recent period and negative testing at home. Review of Systems A 10 point review of systems is negative except as noted above. Medical and Surgical History: Reviewed and noted Social history: Lives at home Tobacco: Denies Physical Exam Vitals & Measurements T: 36.5 ???C(Oral) HR: 90(Monitored) RR: 17 BP: 148/83 SpO2: 94% HT: 175.2 cm WT: 136.9 kg BMI: 44.6 Nurses notes and vital signs reviewed and patient is not hypoxic. General: The patient appears well, resting comfortably. Skin: Warm, dry. Head: Atraumatic. Neck: No JVD. Eye: Normal conjunctiva. Ears, Nose, Mouth, and Throat: Moist mucous membranes. Cardiovascular: Strong distal pulses. Chest wall: Respiratory: Respirations are nonlabored. Back: Normal range of motion. Musculoskeletal: Normal ROM with no gross deformity. Gastrointestinal: Abdomen is soft throughout. No reproducible tenderness. No guarding rebound or rigidity. No distention. Urological: Neurological: Awake and alert. No focal deficits. Follows commands. Psychiatric: Cooperative. Medical Decision Making Laboratory studies reviewed and noted. Mild leukocytosis. Likely reactive, but on repeat evaluation she continues have epigastric abdominal pain therefore CT of the abdomen was obtained. This is reviewed by the radiologist, no acute findings. She does question for similar related to recent dosage increase of Mounjaro. This is certainly possible. Possible viral etiology discussed as well as we have been seeing increased amounts of viral gastroenteritis recently. She is treated here with Phenergan, GI cocktail with improvement. Discharged home with Phenergan and Bentyl. She is already on Pepcid. She is given PCP follow-up. Patient was encouraged to return to the ED if symptoms worsen or change. Assessment/Plan Diarrhea (R19.7: Diarrhea, unspecified) Epigastric abdominal pain (R10.13: Epigastric pain) Nausea (R11.0: Nausea) Orders: Al hydroxide/Mg hydroxide/simethicone, 30 mL, Susp-Oral, Oral, Once, Stop date 06/29/24 18:12:00 EST, STAT, Start date 06/29/24 18:12:00 EST atropine/hyoscyamine/PB/sco polamine, 10 mL, Elixir, Oral, Once, Stop date 06/29/24 18:12:00 EST, STAT, Start date 06/29/24 18:12:00 EST dicyclomine, 20 mg = 1 tab(s), Tab, Oral, Once, Stop date 06/29/24 17:39:00 EST, STAT, Start date 06/29/24 17:39:00 EST, 06/29/24 17:39:00 EST dicyclomine, 20 mg = 1 tab(s), Oral, TID, X 7 day(s), # 21 tab(s), Refills(s) 0, Pharmacy: [facility] #[id number], 175.2, cm, 06/29/24 15:07:00 EST, Height/Length Dosing, 136.9, kg, 06/29/24 15:07:00 EST, Weight Dosing lidocaine topical, 200 mg, 10 mL, Soln-Oral, Oral, Once, Stop date 06/29/24 18:12:00 EST, STAT, Start date 06/29/24 18:12:00 EST promethazine, 25 mg = 1 tab(s), Oral, TID, # 15 tab(s), Refills(s) 0, Pharmacy: [facility] #[id number], 175.2, cm, 06/29/24 15:07:00 EST, Height/Length Dosing, 136.9, kg, 06/29/24 15:07:00 EST, Weight Dosing promethazine 25 mg + Sodium Chloride 0.9% intravenous solution 50 mL, Injection, IV Piggyback, Once, Stop date 06/29/24 15:19:00 EST, STAT, Start date 06/29/24 15:19:00 EST, 153 mL/hr, Infuse over 20 minute(s) Basic Metabolic Panel CBC w/ Auto Diff CT Abdomen/Pelvis w/ Contrast eGFR Extra Blue Tube Extra SST Tube Hepatic Function Panel Lipase Level UA with Cult Rflx Medications Administered Given Al hydroxide/Mg hydroxide/simethicone 200 mg-200 mg-20 mg/5 mL oral suspension, 30 mL, Oral dicyclomine 20 mg Tab, 20 mg, Oral Elixir, 10 mL, Oral lidocaine Viscous Top 2% Padma, 200 mg, Oral Sodium Chloride 0.9% IV Padma 50 mL [F] 50 mL + [id number] [F] 25 mg, IV Piggyback Disposition Plan Patient Discharge Condition Disposition: Discharged home Condition: Improved and stable Counseled: Patient and/or family were counseled to workup, results, treatment plan and follow-up recommendations Discharge Prescription List Prescriptions dicyclomine 20 mg Tab, 20 mg= 1 tab(s), Oral, TID promethazine 25 mg Tab, 25 mg= 1 tab(s), Oral, TID Follow-up With When Contact Information Irasema Zacarias In 3 days 07/02/2024 EST [address], [place] [address]- Business (1) Additional Ins (more content not included)... Normal [facility] Comment on above: Result Comment: Elec tronically Signed By: Lance Dumont PA-C\.br\Date and Time Signed: 06/29/24 18:42 EST\.br\Electronically Co-Signed By: Daron George DO\.br\Date and Time Co-Signed: 06/30/24 07:04 EST BMPon 06-29-2024 Anion gap [Moles/Vol] 14 mmol/L Normal 6-16 [facility] Comment on above: Performed By: #### 2 [id number] #### [facility] [address] [place] [address] Calcium [Mass/Vol] 9.4 mg/dL Normal 8.9-11.1 [facility] Comment on above: Performed By: #### 2 [id number] #### [facility] [address] [place] [address] Chloride [Moles/Vol] 103 mmol/L Normal 101-111 [facility] Comment on above: Performed By: #### 2 [id number] #### [facility] [address] [place] [address] CO2 [Moles/Vol] 25 mmol/L Normal 21-31 [facility] Comment on above: Performed By: #### 2 [id number] #### [facility] [address] [place] [address] Creatinine [Mass/Vol] 1.0 mg/dL Normal 0.5-1.3 [facility] Comment on above: Performed By: #### 2 [id number] #### [facility] [address] [place] [address] Glucose [Mass/Vol] 110 mg/dL Normal 55-199 [facility] Comment on above: Performed By: #### 2 [id number] #### [facility] [address] [place] [address] Potassium [Moles/Vol] 3.6 mmol/L Normal 3.5-5.3 [facility] Comment on above: Performed By: #### 2 [id number] #### [facility] [address] [place] [address] Sodium [Moles/Vol] 138 mmol/L Normal 135-145 [facility] Comment on above: Performed By: #### 2 [id number] #### [facility] [address] [place] [address] Urea nitrogen [Mass/Vol] 15 mg/dL Normal 5-21 [facility] Comment on above: Performed By: #### 2 [id number] #### [facility] [address] [place] [address] Urea nitrogen/Creatinine [Mass ratio] 15 No Units Normal 10-20 [facility] Comment on above: Performed By: #### 2 [id number] #### [facility] [address] [place] [address] CBC w/ Auto Diffon 5 Basophils/100 WBC (Bld) 0.3 % Normal 0.0-2.0 [facility] Comment on above: Performed By: #### 2 [id number] #### [facility] [address] [place] [address] Basophils/Leukocytes Auto (Bld) [Pure # fraction] 0.1 E9/L Normal 0.0-0.2 [facility] Comment on above: Performed By: #### 2 [id number] #### [facility] [facility] [address] [place] [address] Eosinophils (Bld) [#/Vol] 0.1 E9/L Normal 0.0-0.5 [facility] Comment on above: Performed By: #### 2 [id number] #### [facility] [address] [place] [address] Eosinophils/100 WBC (Bld) 0.8 % Normal 0.0-8.0 [facility] Comment on above: Performed By: #### 2 [id number] #### [facility] [address] [place] [address] Erythrocyte distribution width (RBC) [Ratio] 14.1 % Normal 10.9-14.2 [facility] Comment on above: Performed By: #### 2 [id number] #### [facility] [address] [place] [address] Hematocrit (Bld) [Volume fraction] 40.1 % Normal 34.0-46.0 [facility] Comment on above: Performed By: #### 2 [id number] #### [facility] [address] [place] [address] Hemoglobin (Bld) [Mass/Vol] 13.3 g/dL Normal 12.0-16.0 [facility] Comment on above: Performed By: #### 2 [id number] #### [facility] [address] [place] [address] Lymphocytes (Bld) [#/Vol] 1.9 E9/L Normal 1.0-4.0 [facility] Comment on above: Performed By: #### 2 [id number] #### [facility] [address] [place] [address] Lymphocytes/100 WBC (Bld) 12.0 % Low 14.0-50.0 [facility] Comment on above: Performed By: #### 2 [id number] #### [facility] [address] [place] [address] MCH (RBC) [Entitic mass] 27.2 pg Normal 27.0-34.0 [facility] Comment on above: Performed By: #### 2 [id number] #### [facility] [address] [place] [address] MCHC (RBC) [Mass/Vol] 33.2 g/dL Normal 31.4-36.0 [facility] Comment on above: Performed By: #### 2 [id number] #### [facility] [address] [place] [address] MCV (RBC) [Entitic vol] 81.9 fL Normal 80.0-100.0 [facility] Comment on above: Performed By: #### 2 [id number] #### [facility] [address] [place] [address] Monocytes (Bld) [#/Vol] 0.9 E9/L Normal 0.2-1.0 [facility] Comment on above: Performed By: #### 2 [id number] #### [facility] [address] [place] [address] Neutrophils (Bld) [#/Vol] 12.7 E9/L High 2.0-7.5 [facility] Comment on above: Performed By: #### 2 [id number] #### [facility] [address] [place] [address] Neutrophils/100 WBC (Bld) 81.2 % High 36.0-75.0 [facility] Comment on above: Result Comment: No C onfirmation Requested by Physician Performed By: #### 2 [id number] #### [facility] [address] [place] [address] Platelet 286.0 E9/L Normal 150.0-500. 0 [facility] Comment on above: Performed By: #### 2 [id number] #### [facility] [address] [place] [address] Platelet mean volume (Bld) [Entitic vol] 8.5 fL Normal 6.4-10.8 [facility] Comment on above: Performed By: #### 2 [id number] #### [facility] [address] [place] [address] RBC (Bld) [#/Vol] 4.9 E12/L Normal 4.3-5.9 [facility] Comment on above: Performed By: #### 2 [id number] #### [facility] [address] [place] [address] WBC corrected for nucl RBC Auto (Bld) [#/Vol] 15.7 E9/L High 4.0-11.0 [facility] Comment on above: Result Comment: Alma pheral smear review performed. Performed By: #### 2 [id number] #### [facility] [address] [place] [address] CHEMISTRYOrdered By: SYSTEM SYSTEM on 06-29-2024 Albumin [Mass/Vol] 4.8 g/dL Normal 3.3 - 5.0 gm/dL Remisol Chem Albumin/Globulin [Mass ratio] 1.5 {ratio} Normal 1.1 - 2.2 Remisol Chem ALP [Catalytic activity/Vol] 70 [iU]/d Normal 21 - 98 Int._Unit/ L Remisol Chem ALT No additional P-5'-P [Catalytic activity/Vol] 18 [iU]/d Normal 6 - 46 Int._Unit/ L Remisol Chem Anion gap [Moles/Vol] 14 mmol/L Normal 6 - 16 mEq/L Remisol Chem AST [Catalytic activity/Vol] 13 [iU]/d Normal 5 - 43 Int._Unit/ L Remisol Chem Bilirubin [Mass/Vol] 0.4 mg/dL Normal 0.0 - 1 .1 mg/dL Remisol Chem Bilirubin.direct [Mass/Vol] 0.0 mg/dL Normal 0.0 - 0.4 mg/dL Remisol Chem Bilirubin.indirect [Mass or moles/Vol] 0.4 mg/dL Normal 0.1 - 0.9 mg/dL Remisol Chem Calcium [Mass/Vol] 9.4 mg/dL Normal 8.9 - 11. 1 mg/dL Remisol Chem Chloride [Moles/Vol] 103 mmol/L Normal 101 - 1 11 mmol/L Remisol Chem CO2 [Moles/Vol] 25 mmol/L Normal 21 - 31 mmol/L Remisol Chem Creatinine [Mass/Vol] 1.0 mg/dL Normal 0.5 - 1.3 mg/dL Remisol Chem eGFR 73 mL/min/1.73 m2 Normal >=59mL/min /1.73 m2 Remisol Chem Globulin (S) [Mass/Vol] 3.3 g/dL Normal 1.4 - 4.0 gm/dL Remisol Chem Glucose [Mass/Vol] 110 mg/dL Normal 55 - 199 mg/dL Remisol Chem Lipase [Catalytic activity/Vol] 18 U/L Normal 13 - 58 unit/L Remisol Chem Potassium [Moles/Vol] 3.6 mmol/L Normal 3.5 - 5.3 mmol/L Remisol Chem Protein [Mass/Vol] 8.1 g/dL High 6.0 - 7.8 gm/dL Remisol Chem Sodium [Moles/Vol] 138 mmol/L Normal 135 - 145 mmol/L Remisol Chem Urea nitrogen [Mass/Vol] 15 mg/dL Normal 5 - 21 mg/dL Remisol Chem Urea nitrogen/Creatinine [Mass ratio] 15 mg/mg Normal 10 - 20 Remisol Chem CNPNon 06-29-2024 CNPN Telephone (EMQ) ALMA DELIA PEALR ([id number]) 1985 F Date Time Provider Department 06/29/24 EDMUNDO DEVLIN EMKavin During your visit today, we recorded the following information about you: Veronica Garcia 06/29/2024 3:54 PM Signed Initiated PA for Mounjaro 5mg through [facility] Kim Is the patient New Insurance per patient Waiting on Questions Questions Completed Waiting for determination Additional Information Required to Complete Allergies As of Date: 06/29/2024 Noted Allergy Reaction EGGS (EGG) 07/11/2019 2 - Rash Comments: Throat swelling CODEINE 08/16/2005 ERYTHROMYCIN 03/31/2022 14 - Other: See Comments IMITREX (SUMATRIPTAN SUCCINATE) 05/16/2009 Comments: Difficulty breathing LATEX 08/16/2005 2 - Rash 7 - Swelling LURASIDONE 03/31/2022 14 - Other: See Comments 5 - Intolerance MORPHINE 05/23/2008 OZEMPIC (SEMAGLUTIDE) 03/31/2022 8 - GI Upset PENICILLINS 11/15/2006 PYRIDIUM (PHENAZOPYRIDINE HCL) 10/31/2007 Comments: Inside body burning, pain all over body Date Reviewed: 06/01/2024 Reviewed by: Edmundo Devlin MD - Fully Assessed Reason for Visit: Medication Preauthorization [914] Cmt: Mounjaro 5 mg approved Prescriptions as of 06/29/2024 - tirzepatide (MOUNJARO) 5 mg/0.5 mL pen injector Inject 5 mg subcutaneously one time a week. - tirzepatide (MOUNJARO) 2.5 mg/0.5 mL pen injector Inject 2.5 mg subcutaneously one time a week. - dextromethorphan-buPROPion (AUVELITY) 45-105 mg tablet 1 tablet Orally twice daily for 90 days - galcanezumab-gnlm (EMGALITY PEN) 120 mg/mL pen ADMINISTER 1 ML UNDER THE SKIN EVERY 30 DAYS - omeprazole (PRILOSEC) 40 mg capsule 1 capsule. - UBRELVY 100 mg tablet TAKE 1 TABLET BY MOUTH AT ONSET OF MIGRAINE. MAY REPEAT AFTER 2 HOURS NEEDED 30 DAYS - brexpiprazole (REXULTI) 2 mg tablet - hydrOXYzine pamoate (VISTARIL) 25 mg capsule TAKE 1 CAPSULE BY MOUTH EVERY DAY AT BEDTIME NEEDED - ondansetron (ZOFRAN) 4 mg tablet Take 4 mg by mouth. - fluticasone (FLONASE) 50 mcg/actuation nasal spray SHAKE LIQUID AND USE 2 SPRAYS IN EACH NOSTRIL EVERY DAY - ADVAIR HFA 230-21 mcg/actuation inhaler INHALE 2 PUFFS BY MOUTH TWICE DAILY DIRECTED - verapamil (CALAN, ISOPTIN) 120 mg tablet Take 120 mg by mouth once daily. - dicyclomine (BENTYL) 20 mg tablet Take 20 mg by mouth as needed. 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] PCOS (polycystic ovarian syndrome) [E28.2] RECTAL AND ANAL HEMORRHAGE [K62.5] 07/29/2008 Abnormal Coagulation Profile [R79.1] 07/31/2008 01/31/2009 Spasm of Muscle [M62.838] 09/27/2008 01/31/2009 Abdominal Pain, Unspecified Site [R10.9] 12/17/2008 01/31/2009 Crohn's Ileitis [K50.00] 01/31/2009 Myalgia and Myositis [OEX0634] 01/31/2009 Fitting and Adjustment of Orthopedic Device [Z4*01/26/2010 Sprained Ankle [S93.409A] 01/26/2010 Neuritis [M79.2] 01/26/2010 11/06/2015 Fibromyalgia [M79.7] 11/06/2015 Migraine without aura and without status migrai* Irritable bowel syndrome [K58.9] GERD (gastroesophageal reflux disease) [K21.9] Endometriosis, site unspecified [N80.9] Crohn's disease (HCC) [K50.90] 05/09/2008 Bipolar 1 disorder (HCC) [F31.9] Arthritis [M19.90] Abdominal pain, generalized [R10.84] Anxiety and depression [F41.9, F32.A] Former smoker [Z87.891] BMI 40.0-44.9, adult (HCC) [Z68.41] Chronic pain syndrome [G89.4] 04/20/2016 Lumbar disc herniation [M51.26] 04/20/2016 Type 2 diabetes mellitus without complication, *06/24/2022 Encounter Status:Closed by VERONICA GARCIA on 06/29/24 Normal [facility] CT Abdomen/Pelvis w/ Contras ton 06-29-2024 CT Abdomen/Pelvis w/ Contrast Exam Date/Time: 06/29/2024 17:51 EST Reason for Exam: Pain Report IMPRESSION: NO ACUTE ABDOMINOPELVIC PROCESS. EXAM: CT Abdomen/Pelvis w/ Contrast History: Abdominal cramping, nausea, and vomiting. Technique: Multiple contiguous axial images were obtained of the abdomen and pelvis from the level of the lung bases through the ischial tuberosities with contrast. Multiplanar reformats were obtained. Delayed images were obtained. Unless otherwise stated, incidental findings identified in this report do not require routine follow-up imaging. Comparison: CT abdomen pelvis 07/25/2023 Findings: Lung bases are clear. The liver, gallbladder, spleen, stomach, pancreas, and adrenal glands are within normal limits. The kidneys enhance uniformly. No urinary tract calculi or hydronephrosis. Urinary bladder is poorly distended but otherwise unremarkable. Uterus is present. A partially exophytic fibroid measuring approximately 3 cm is again identified. Abdominal aorta is nonaneurysmal. No retroperitoneal or abdominal/pelvic lymphadenopathy. No small bowel obstruction. No overt colonic mass or pericolonic inflammation. No findings of acute appendicitis. No free fluid or free air. No acute osseous abnormality. Degenerative changes of the spine. All CT scans at this facility use dose modulation, iterative reconstruction, and/or weight based dosing when appropriate to reduce radiation dose to as low as reasonably achievable. Report Ordering Provider: Lance Dumont FINAL REPORT Dictated: 06/29/2024 6:02 pm Eric De Leon DO Signed (Electronic Signature): 06/29/2024 6:02 pm Signed by: Eric De Leon DO Transcribed by: ABBY Technologist: PHILLIP Price [facility] ED Clinical Summaryon 2024 ED Clinical Summary ED Clinical Summary [place] [id number] ED Clinical Summary Person Information Name: ALMA DELIA PEARL [facility] Age: 39 Years : 1985 Sex: Female Language: Nigerian PCP: Irasema Love Marital Status: MRN: [id number] Visit Id: Visit Reason: Nausea; Diarrhea; Abdominal pain; ABD PAIN, NAUSEA Speciality: Acuity: 3 Enc Type: Emergency Med Service: Emergency Arrival: 06/29/2024 14:54:28 Discharge: 06/29/2024 18:58:37 LOS: 000 04:04 Checkin: 06/29/2024 14:54:28 Checkout: 06/29/2024 18:58:37 Dispo Type: Home (Routine DC) EVENTS: Event Name Event Status Request Date/Time Start Date/Time Complete Date/Time Arrive Complete 06/29/2024 14:54:28 06/29/2024 14:54:28 06/29/2024 14:54:28 Document Home Meds Request 06/29/2024 14:54:28 Triage Complete 06/29/2024 14:54:28 06/29/2024 15:07:27 06/29/2024 15:07:27 Registration Complete 06/29/2024 14:58:27 06/29/2024 14:58:27 06/29/2024 14:58:27 Reg Complete Request 06/29/2024 14:58:27 Reg Bed Request Complete 06/29/2024 14:58:27 06/29/2024 14:58:27 06/29/2024 14:58:27 Bed Assign Complete 06/29/2024 15:03:39 06/29/2024 15:03:39 06/29/2024 15:03:39 Dr Exam Complete 06/29/2024 15:03:39 06/29/2024 15:04:28 06/29/2024 15:04:28 RN Exam Complete 06/29/2024 15:03:39 06/29/2024 15:31:19 06/29/2024 15:31:19 Registration Request 06/29/2024 15:04:28 Dr Exam Complete 06/29/2024 15:04:47 06/29/2024 15:04:47 06/29/2024 15:04:47 Pending Labs Request 06/29/2024 15:13:21 Lab Complete 06/29/2024 15:13:21 06/29/2024 16:01:30 Meds Admin Cancel 06/29/2024 15:13:21 06/29/2024 15:19:45 Meds Admin Complete 06/29/2024 15:19:45 06/29/2024 15:28:24 Pending Labs Complete 06/29/2024 15:33:22 06/29/2024 15:33:22 06/29/2024 16:01:30 Lab Complete 06/29/2024 15:33:22 06/29/2024 15:33:22 06/29/2024 16:01:30 Pending Labs Complete 06/29/2024 15:35:14 06/29/2024 15:35:14 06/29/2024 15:35:14 CT Complete 06/29/2024 17:30:26 06/29/2024 17:32:04 06/29/2024 17:51:21 Meds Admin Complete 06/29/2024 17:39:55 06/29/2024 18:07:14 Meds Admin Complete 06/29/2024 18:12:16 06/29/2024 18:26:29 Discharge Complete 06/29/2024 18:41:28 06/29/2024 18:58:42 06/29/2024 18:58:42 Transfer Complete 06/29/2024 18:58:42 06/29/2024 18:58:42 06/29/2024 18:58:42 ADDRESS: [address] [place] [id number] PHYS DOC NOTES: MEDICAL INFORMATION: Prescriptions Given: New Medications [id number], [address] [place], [place] [id number], [phone] dicyclomine (dicyclomine 20 mg Tab) 1 Tablets By Mouth 3 times a day for 7 Days. Refills: 0. promethazine (promethazine 25 mg Tab) 1 Tablets By Mouth 3 times a day. Refills: 0. Medications to Continue with No Changes Other Medications albuterol (Albuterol (Eqv-ProAir HFA) 90 mcg/inh inhalation aerosol) 2 Puffs Inhalation every 6 hours. Refills: 4. albuterol (albuterol 0.083% Inh Padma 3 mL) 0.083% - 3mL dosing units Inhalation every 4 hours as needed Wheezing. Refills: 11. brexpiprazole (Rexulti 3 mg oral tablet) 1 Tablets By Mouth every day. bupropion-dextromethorphan (Auvelity 45 mg-105 mg oral tablet, extended release) 1 Tablets By Mouth 2 times a day. busPIRone (busPIRone 15 mg Tab) 1 Tablets By Mouth 3 times a day. fluticasone nasal (Flonase 0.05 mg/inh [place]) 1 Sprays Nasal Inhalation 2 times a day. each nostril. Refills: 5. galcanezumab (Emgality Prefilled Pen 120 mg/mL subcutaneous solution) Subcutaneous once a month. ADMINISTER 1 ML UNDER THE SKIN MONTHLY. hydrOXYzine (hydrOXYzine pamoate 25 mg Cap) 1 Capsules By Mouth as needed as needed for anxiety. TAKE 1 CAPSULE BY MOUTH EVERY 6 HOURS NEEDED FOR ANXIETY. loperamide (Imodium A-D EZ Chews 2 mg oral tablet, chewable) 1 Tablets Chewed every 4 hours as needed Diarrhea. Refills: 0. Misc Prescription (lancets) lancets test daily E11.9. [...] high or low blood sugars. Refills: 2. nystatin topical (nystatin Top 100,000 units/g Crm 15 gram) 1 Application Topical 2 times a day. Refills: 1. omeprazole (omeprazole 40 mg Cap-DR) 1 Capsules By Mouth 2 times a day. TAKE 1 CAPSULE BY MOUTH TWICE DAILY. ondansetron (Zofran 4 mg Tab) 1 Tablets By Mouth every 8 hours as needed Nausea/Vomiting. Refills: 0. pregabalin (pregabalin 25 mg Cap) 1 Capsules By Mouth 2 times a day. tirzepatide (Mo (more content not included)... Normal [facility] ED Patient Summaryon 025 ED Patient Summary ED Patient Summary [place] [id number] Patient Discharge Instructions Person Information Name: ALMA DELIA PEARL Age: 39 Years Arrival Date: 06/29/2024 14:54:28 Discharge Diagnosis: Diarrhea; Epigastric abdominal pain; Nausea Primary Care Physician: Rell FERRER, Irasema Medley Provider Information Primary Provider: Daron George DO Advanced Manager Medical Affairs:Lance Dumont PA-C The exam and treatment you received in the Emergency Department were for an urgent problem and are not intended as complete care. It is important that you follow up with a doctor, nurse practitioner, or physician???s clinical medical assistant for ongoing care. If your symptoms [...] Instructions: With: Address: When: Irasema Zacarias [address], [address] [place] [id number] Business (1) In 3 days 07/02/2024 In the event that this physician does not participate in your insurance network, please consult with your insurance company to find a nearby participating provider. Patient Education Materials: Diarrhea, Adult; Abdominal Pain, Adult A MESSAGE TO ALL PATIENTS REGARDING OPIOIDS PRESCRIPTION OPIOIDS: WHAT YOU NEED TO KNOW Prescription opioids can be used to help relieve qtfzfxjx-nl-ocpkne pain and are often prescribed following a [...] as well, even when taken as directed: ??? Tolerance???meaning you might need to take more of the medication for the same pain relief ??? Physical dependence???meaning you have symptoms of withdrawal when a medication is stopped ??? Increased sensitivity to pain ??? Constipation ??? Nausea, vomiting, and dry mouth ??? Sleepiness and dizziness ??? Confusion ??? Depression ??? Low levels of testosterone that can result in lower sex drive, energy, and strength ??? Itching and sweating RISKS ARE GREATER WITH: ??? History of drug misuse, substance use disorder, or overdose ??? Mental health conditions (such as depression or anxiety) ??? Sleep apnea ??? Older age (65 years and older) ??? Avoid alcohol while taking prescription opioids. Also, unless specifically advised by your health care provider, medications to avoid include: ??? Benzodiazepines (such as Xanax or Valium) ??? Muscle relaxants (such as Soma or Flexeril) ??? Hypnotics (such as Ambien or Lunesta) ??? Other prescription opioids KNOW YOUR OPTIONS Talk to your health care provider about ways to manage your pain that don???t involve prescription opioids. Some of these options may actually work better and have fewer risks and side effects. Options may include: ??? Pain relievers such as acetaminophen, ibuprofen, and naproxen ??? Some medication that are also used for depression or seizures ??? Physical therapy and exercise ??? Cognitive behavioral therapy, a psychological, goal-directed approach, in which patients learn how to modify physical, behavioral, and emotional triggers of pain and stress. IF YOU ARE PRESCRIBED OPIOIDS FOR PAIN: ??? Never take opioids in greater amounts or more often than prescribed. ??? Follow up with your primary health care provider. o Work together to create a plan on how to manage your pain. o Talk about ways to help manage your pain that don???t involve prescription opioids. o Talk about any and all concerns and side effects. ??? Help prevent misuse and abuse o Never sell or share prescription opioids. o Never use another person???s prescription opioids. ??? Store prescription opioids in a secure place and out of reach of others (this may include visitors, children, friends, and family). ??? Safely dispose of unused prescription opioids: Find your community drug take-back program or your pharmacy mail-back program, or flush them down the toilet, following guidance from the Food and Drug Administration (www.fda.gov/Drugs/Resource sForYou). ??? Visit www.cdc.gov/drugoverdose to learn about the risks of opioids abuse and overdose. ??? If you believe you may be struggl (more content not included)... Normal [facility] Extra Blueon 06-29-2024 Tube Collected Plasma Yes Invalid Interpretation Code [facility] Comment on above: Performed By: #### 1 [id number] #### [facility] Laboratory [address] [place] [address] HEMATOLOGYOrdered By: SYSTEM SYSTEM on 06-29-2024 Basophils/100 WBC (Bld) 0.3 % Normal 0.0 - 2.0 % Remisol Heme Basophils/Leukocytes Auto (Bld) [Pure # fraction] 0.1 E9/L Normal 0.0 - 0.2 E9/L Remisol Heme Eosinophils (Bld) [#/Vol] 0.1 E9/L Normal 0.0 - 0.5 E9/L Remisol Heme Eosinophils/100 WBC (Bld) 0.8 % Normal 0.0 - 8.0 % Remisol Heme Erythrocyte distribution width (RBC) [Ratio] 14.1 % Normal 10.9 - 14.2 % Remisol Heme Hematocrit (Bld) [Volume fraction] 40.1 % Normal 34.0 - 46.0 % Remisol Heme Hemoglobin (Bld) [Mass/Vol] 13.3 g/dL Normal 12.0 - 16.0 gm/dL Remisol Heme Lymphocytes (Bld) [#/Vol] 1.9 E9/L Normal 1.0 - 4.0 E9/L Remisol Heme Lymphocytes/100 WBC (Bld) 12.0 % Low 14.0 - 50.0 % Remisol Heme MCH (RBC) [Entitic mass] 27.2 pg Normal 27.0 - 34.0 pg Remisol Heme MCHC (RBC) [Mass/Vol] 33.2 g/dL Normal 31.4 - 36.0 gm/dL Remisol Heme MCV (RBC) [Entitic vol] 81.9 fL Normal 80.0 - 100.0 fL Remisol Heme Monocytes (Bld) [#/Vol] 0.9 E9/L Normal 0.2 - 1.0 E9/L Remisol Heme Monocytes/100 WBC (Bld) 5.7 % Normal 4.0 - 14.0 % Remisol Heme Neutrophils (Bld) [#/Vol] 12.7 E9/L High 2.0 - 7.5 E9/L Remisol Heme Neutrophils/100 WBC (Bld) 81.2 % High 36.0 - 75.0 % Remisol Heme Comment on above: Result Comment: No C onfirmation Requested by Physician Platelet 286.0 E9/L Normal 150.0 - 500.0 E9/L Remisol Heme Platelet mean volume (Bld) [Entitic vol] 8.5 fL Normal 6.4 - 10.8 fL Remisol Heme RBC (Bld) [#/Vol] 4.9 E12/L Normal 4.3 - 5.9 E12/L Remisol Heme WBC corrected for nucl RBC Auto (Bld) [#/Vol] 15.7 E9/L High 4.0 - 11.0 E9/L Remisol Heme Comment on above: Result Comment: Alma pheral smear review performed. Hep Func Panelon 06-29-2024 Albumin [Mass/Vol] 4.8 g/dL Normal 3.3-5.0 [facility] Comment on above: Performed By: #### 2 [id number] #### [facility] [address] [place] [address] Albumin/Globulin (S) [Mass conc ratio] 1.5 Normal 1.1-2.2 [facility] Comment on above: Performed By: #### 2 [id number] #### [facility] [address] [place] [address] ALP [Catalytic activity/Vol] 70 Int._Unit/L Normal 21-98 [facility] Comment on above: Performed By: #### 2 [id number] #### [facility] [address] [place] [address] ALT No additional P-5'-P [Catalytic activity/Vol] 18 Int._Unit/L Normal 6-46 [facility] Comment on above: Performed By: #### 2 [id number] #### [facility] [address] [place] [address] AST [Catalytic activity/Vol] 13 Int._Unit/L Normal 5-43 [facility] Comment on above: Performed By: #### 2 [id number] #### [facility] [address] [place] [address] Bilirubin [Mass/Vol] 0.4 mg/dL Normal 0.0-1.1 [facility] Comment on above: Performed By: #### 2 [id number] #### [facility] [address] [place] [address] Bilirubin.direct [Mass/Vol] 0.0 mg/dL Normal 0.0-0.4 [facility] Comment on above: Performed By: #### 2 [id number] #### [facility] [address] [place] [address] Bilirubin.indirect [Mass or moles/Vol] 0.4 mg/dL Normal 0.1-0.9 [facility] Comment on above: Performed By: #### 2 [id number] #### [facility] [address] [place] [address] Globulin (S) [Mass/Vol] 3.3 g/dL Normal 1.4-4.0 [facility] Comment on above: Performed By: #### [id number] #### [facility] Laboratory [address] [place] [address] Protein [Mass/Vol] 8.1 g/dL High 6.0-7.8 [facility] Comment on above: Performed By: #### [id number] #### [facility] [address] [place] [address] Lipase Levelon 06-29-2024 Lipase [Catalytic activity/Vol] 18 U/L Normal 13-58 [facility] Comment on above: Performed By: #### [id number] #### [facility] [address] [place] [address] eGFRon 06-29-2024 eGFR 73 mL/min/1.73 m2 Normal >=59 [facility] Comment on above: Performed By: #### [id number] ####[facility] [address] [place] [address] [facility] JANELLN [facility] ALMA DELIA PEARL ([id number]) 1985 F Date Time Provider Department 06/20/24 EDMUNDO DEVLIN During your visit today, we recorded the following information about you: Phuc Campos 06/20/2024 11:58 AM Signed Dear Provider, Your patient's medication tirzepatide (MOUNJARO) 2.5 mg/0.5 mL pen injector was denied. Denial letters are sent directly to the patient and at times to the healthcare providers. If we receive a denial letter, it will be indexed for your review. If you want to appeal the decision. Please submit your request via staff message to the [facility] Auth Appeals Pool ([phone]). You can find templates listed below to support your appeal in View[employer]le (Epic drop down, select patient care, select send letter). If it is an urgent request, you can email the [facility] auth Team at . Please make sure the documents below are completed in order to process your request. If the appeal is denied, do you want to schedule a peer to peer Yes/No. We will schedule peer to peer automatically if yes. Thank You, Lois [facility] Auth Appeals Team Lois PA Appeal letter Lois PAPPAS Letter of Medical Necessity Lois MS [employer] INGE BONILLA Planting Material Remover II Endocrinology AND Metabolism [place] [facility] X-20 Allergies As of Date: 06/20/2024 Noted Allergy Reaction EGGS (EGG) 07/11/2019 2 - Rash Comments: Throat swelling CODEINE 08/16/2005 ERYTHROMYCIN 03/31/2022 14 - Other: See Comments IMITREX (SUMATRIPTAN SUCCINATE) 05/16/2009 Comments: Difficulty breathing LATEX 08/16/2005 2 - Rash 7 - Swelling LURASIDONE 03/31/2022 14 - Other: See Comments 5 - Intolerance MORPHINE 05/23/2008 OZEMPIC (SEMAGLUTIDE) 03/31/2022 8 - GI Upset PENICILLINS 11/15/2006 PYRIDIUM (PHENAZOPYRIDINE HCL) 10/31/2007 Comments: Inside body burning, pain all over body Date Reviewed: 06/01/2024 Reviewed by: Edmundo Devlin MD - Fully Assessed Reason for Visit: Insurance Authorization [[id number]] Cmt: Denial - tirzepatide (MOUNJARO) 2.5 mg/0.5 mL pen injector Prescriptions as of 06/20/2024 - tirzepatide (MOUNJARO) 5 mg/0.5 mL pen injector Inject 5 mg subcutaneously one time a week. - tirzepatide (MOUNJARO) 2.5 mg/0.5 mL pen injector Inject 2.5 mg subcutaneously one time a week. - dextromethorphan-buPROPion (AUVELITY) 45-105 mg tablet 1 tablet Orally twice daily for 90 days - galcanezumab-gnlm (EMGALITY PEN) 120 mg/mL pen ADMINISTER 1 ML UNDER THE SKIN EVERY 30 DAYS - omeprazole (PRILOSEC) 40 mg capsule 1 capsule. - UBRELVY 100 mg tablet TAKE 1 TABLET BY MOUTH AT ONSET OF MIGRAINE. MAY REPEAT AFTER 2 HOURS NEEDED 30 DAYS - brexpiprazole (REXULTI) 2 mg tablet - hydrOXYzine pamoate (VISTARIL) 25 mg capsule TAKE 1 CAPSULE BY MOUTH EVERY DAY AT BEDTIME NEEDED - ondansetron (ZOFRAN) 4 mg tablet Take 4 mg by mouth. - fluticasone (FLONASE) 50 mcg/actuation nasal spray SHAKE LIQUID AND USE 2 SPRAYS IN EACH NOSTRIL EVERY DAY - ADVAIR HFA 230-21 mcg/actuation inhaler INHALE 2 PUFFS BY MOUTH TWICE DAILY DIRECTED - verapamil (CALAN, ISOPTIN) 120 mg tablet Take 120 mg by mouth once daily. - dicyclomine (BENTYL) 20 mg tablet Take 20 mg by mouth as needed. - albuterol 90 mcg/Actuation INHALATION Aero as necessary for asthma Problem List As Of Date 06/20/2024 Noted Resolved Endometriosis, Site Unspecified [N80.9] 01/31/2009 Abdominal Pain, Generalized [R10.84] 01/31/2009 MORBID OBESITY [E66.01] 07/09/2008 Irritable Bowel Syndrome [K58.9] 01/31/2009 ASTHMA UNSPECIFIED [J45.909] GASTROINTEST HEMORR NOS [K92.2] Class 3 severe obesity due to excess calories w*07/09/2008 DEPRESSIVE DISORDER NEC [F32.89] ANXIETY DISORDER-ORGANIC [F06.4] PCOS (polycystic ovarian syndrome) [E28.2] RECTAL AND ANAL HEMORRHAGE [K62.5] 07/29/2008 Abnormal Coagulation Profile [R79.1] 07/31/2008 01/31/2009 Spasm of Muscle [M62.838] 09/27/2008 01/31/2009 Abdominal Pain, Unspecified Site [R10.9] 12/17/2008 01/31/2009 Crohn's Ileitis [K50.00] 01/31/2009 Myalgia and Myositis [[id number]] 01/31/2009 Fitting and Adjustment of Orthopedic Device [Z4*01/26/2010 Sprained Ankle [S93.409A] 01/26/2010 Neuritis [M79.2] 01/26/2010 11/06/2015 Fibromyalgia [M79.7] 11/06/2015 Migraine without aura and without status migrai* Irritable bowel syndrome [K58.9] GERD (gastroesophageal reflux disease) [K21.9] Endometriosis, site unspecified [N80.9] Crohn's disease (HCC) [K50.90] 05/09/2008 Bipolar 1 disorder (HCC) [F31.9] Arthritis [M19.90] Abdominal pain, generalized [R10.84] Anxiety and depression [F41.9, F32.A] Former smoker [Z87.891] BMI 40.0-44.9, adult (HCC) [Z68.41] Chronic pain syndrome [G89.4] 04/20/2016 Lumbar disc herniation [M51.26] 04/20/2016 Type 2 diabetes mellitus without complication, *06/24/2022 Encounter Stat (more content not included)... Normal [facility] Jonathan 06-19-2024 CNPN Telephone (ENDN) ALMA DELIA PEARL ([id number]) 1985 F Date Time Provider Department 06/19/24 EDMUNDO DEVLIN [facility] During your visit today, we recorded the following information about you: Phuc Campos 06/19/2024 3:38 PM Signed Initiated PA for tirzepatide (MOUNJARO) 2.5 mg/0.5 mL pen injector through [employer] [place] [employer] Chart notes attached Questions Completed Waiting for determination INGE BONILLA Planting Material Remover II Endocrinology AND Metabolism [place] [facility] X-20 Allergies As of Date: 06/19/2024 Noted Allergy Reaction EGGS (EGG) 07/11/2019 2 - Rash Comments: Throat swelling CODEINE 08/16/2005 ERYTHROMYCIN 03/31/2022 14 - Other: See Comments IMITREX (SUMATRIPTAN SUCCINATE) 05/16/2009 Comments: Difficulty breathing LATEX 08/16/2005 2 - Rash 7 - Swelling LURASIDONE 03/31/2022 14 - Other: See Comments 5 - Intolerance MORPHINE 05/23/2008 OZEMPIC (SEMAGLUTIDE) 03/31/2022 8 - GI Upset PENICILLINS 11/15/2006 PYRIDIUM (PHENAZOPYRIDINE HCL) 10/31/2007 Comments: Inside body burning, pain all over body Date Reviewed: 06/01/2024 Reviewed by: Edmundo Devlin MD - Fully Assessed Reason for Visit: Insurance Authorization [[id number]] Cmt: tirzepatide (MOUNJARO) 2.5 mg/0.5 mL pen injector Prescriptions as of 06/19/2024 - tirzepatide (MOUNJARO) 5 mg/0.5 mL pen injector Inject 5 mg subcutaneously one time a week. - tirzepatide (MOUNJARO) 2.5 mg/0.5 mL pen injector Inject 2.5 mg subcutaneously one time a week. - dextromethorphan-buPROPion (AUVELITY) 45-105 mg tablet 1 tablet Orally twice daily for 90 days - galcanezumab-gnlm (EMGALITY PEN) 120 mg/mL pen ADMINISTER 1 ML UNDER THE SKIN EVERY 30 DAYS - omeprazole (PRILOSEC) 40 mg capsule 1 capsule. - UBRELVY 100 mg tablet TAKE 1 TABLET BY MOUTH AT ONSET OF MIGRAINE. MAY REPEAT AFTER 2 HOURS NEEDED 30 DAYS - brexpiprazole (REXULTI) 2 mg tablet - hydrOXYzine pamoate (VISTARIL) 25 mg capsule TAKE 1 CAPSULE BY MOUTH EVERY DAY AT BEDTIME NEEDED - ondansetron (ZOFRAN) 4 mg tablet Take 4 mg by mouth. - fluticasone (FLONASE) 50 mcg/actuation nasal spray SHAKE LIQUID AND USE 2 SPRAYS IN EACH NOSTRIL EVERY DAY - ADVAIR HFA 230-21 mcg/actuation inhaler INHALE 2 PUFFS BY MOUTH TWICE DAILY DIRECTED - verapamil (CALAN, ISOPTIN) 120 mg tablet Take 120 mg by mouth once daily. - dicyclomine (BENTYL) 20 mg tablet Take 20 mg by mouth as needed. 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] PCOS (polycystic ovarian syndrome) [E28.2] RECTAL AND ANAL HEMORRHAGE [K62.5] 07/29/2008 Abnormal Coagulation Profile [R79.1] 07/31/2008 01/31/2009 Spasm of Muscle [M62.838] 09/27/2008 01/31/2009 Abdominal Pain, Unspecified Site [R10.9] 12/17/2008 01/31/2009 Crohn's Ileitis [K50.00] 01/31/2009 Myalgia and Myositis [[id number]] 01/31/2009 Fitting and Adjustment of Orthopedic Device [Z4*01/26/2010 Sprained Ankle [S93.409A] 01/26/2010 Neuritis [M79.2] 01/26/2010 11/06/2015 Fibromyalgia [M79.7] 11/06/2015 Migraine without aura and without status migrai* Irritable bowel syndrome [K58.9] GERD (gastroesophageal reflux disease) [K21.9] Endometriosis, site unspecified [N80.9] Crohn's disease (HCC) [K50.90] 05/09/2008 Bipolar 1 disorder (HCC) [F31.9] Arthritis [M19.90] Abdominal pain, generalized [R10.84] Anxiety and depression [F41.9, F32.A] Former smoker [Z87.891] BMI 40.0-44.9, adult (HCC) [Z68.41] Chronic pain syndrome [G89.4] 04/20/2016 Lumbar disc herniation [M51.26] 04/20/2016 Type 2 diabetes mellitus without complication, *06/24/2022 Encounter Status:Closed by [facility]UC C[facility]OS [facility] ([id number]) 1985 F Date Time Provider Department 06/19/24 EDMUNDO DEVLIN EMKavin During your visit today, we recorded the following information about you: Veronica Garcia 06/19/2024 3:41 PM Signed Initiated PA for Mounjaro 5mg through [employer] Waiting on Questions Additional Information Required to Complete Veronica Prior Desk Manager III Endocrinology AND Metabolism [place] Allergies As of Date: 06/19/2024 Noted Allergy Reaction EGGS (EGG) 07/11/2019 2 - Rash Comments: Throat swelling CODEINE 08/16/2005 ERYTHROMYCIN 03/31/2022 14 - Other: See Comments IMITREX (SUMATRIPTAN SUCCINATE) 05/16/2009 Comments: Difficulty breathing LATEX 08/16/2005 2 - Rash 7 - Swelling LURASIDONE 03/31/2022 14 - Other: See Comments 5 - Intolerance MORPHINE 05/23/2008 OZEMPIC (SEMAGLUTIDE) 03/31/2022 8 - GI Upset PENICILLINS 11/15/2006 PYRIDIUM (PHENAZOPYRIDINE HCL) 10/31/2007 Comments: Inside body burning, pain all over body Date Reviewed: 06/01/2024 Reviewed by: Edmundo Devlin MD - Fully Assessed Reason for Visit: Medication Preauthorization [[id number]] Cmt: Mounjaro 5mg Prescriptions as of 06/19/2024 - tirzepatide (MOUNJARO) 5 mg/0.5 mL pen injector Inject 5 mg subcutaneously one time a week. - tirzepatide (MOUNJARO) 2.5 mg/0.5 mL pen injector Inject 2.5 mg subcutaneously one time a week. - dextromethorphan-buPROPion (AUVELITY) 45-105 mg tablet 1 tablet Orally twice daily for 90 days - galcanezumab-gnlm (EMGALITY PEN) 120 mg/mL pen ADMINISTER 1 ML UNDER THE SKIN EVERY 30 DAYS - omeprazole (PRILOSEC) 40 mg capsule 1 capsule. - UBRELVY 100 mg tablet TAKE 1 TABLET BY MOUTH AT ONSET OF MIGRAINE. MAY REPEAT AFTER 2 HOURS NEEDED 30 DAYS - brexpiprazole (REXULTI) 2 mg tablet - hydrOXYzine pamoate (VISTARIL) 25 mg capsule TAKE 1 CAPSULE BY MOUTH EVERY DAY AT BEDTIME NEEDED - ondansetron (ZOFRAN) 4 mg tablet Take 4 mg by mouth. - fluticasone (FLONASE) 50 mcg/actuation nasal spray SHAKE LIQUID AND USE 2 SPRAYS IN EACH NOSTRIL EVERY DAY - ADVAIR HFA 230-21 mcg/actuation inhaler INHALE 2 PUFFS BY MOUTH TWICE DAILY DIRECTED - verapamil (CALAN, ISOPTIN) 120 mg tablet Take 120 mg by mouth once daily. - dicyclomine (BENTYL) 20 mg tablet Take 20 mg by mouth as needed. 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] PCOS (polycystic ovarian syndrome) [E28.2] RECTAL AND ANAL HEMORRHAGE [K62.5] 07/29/2008 Abnormal Coagulation Profile [R79.1] 07/31/2008 01/31/2009 Spasm of Muscle [M62.838] 09/27/2008 01/31/2009 Abdominal Pain, Unspecified Site [R10.9] 12/17/2008 01/31/2009 Crohn's Ileitis [K50.00] 01/31/2009 Myalgia and Myositis [[id number]] 01/31/2009 Fitting and Adjustment of Orthopedic Device [Z4*01/26/2010 Sprained Ankle [S93.409A] 01/26/2010 Neuritis [M79.2] 01/26/2010 11/06/2015 Fibromyalgia [M79.7] 11/06/2015 Migraine without aura and without status migrai* Irritable bowel syndrome [K58.9] GERD (gastroesophageal reflux disease) [K21.9] Endometriosis, site unspecified [N80.9] Crohn's disease (HCC) [K50.90] 05/09/2008 Bipolar 1 disorder (HCC) [F31.9] Arthritis [M19.90] Abdominal pain, generalized [R10.84] Anxiety and depression [F41.9, F32.A] Former smoker [Z87.891] BMI 40.0-44.9, adult (HCC) [Z68.41] Chronic pain syndrome [G89.4] 04/20/2016 Lumbar disc herniation [M51.26] 04/20/2016 Type 2 diabetes mellitus without complication, *06/24/2022 Encounter Status:Closed by VERONICA GARCIA on 06/19/24 Normal [facility] Ambulatory Visit Summaryon 0 06-11-2024 Ambulatory Visit Summary Ambulatory Visit Summary ALMA DELIA PEARL :1985 Visit Date:06/11/2024 Ambulatory Visit Instructions Your Diagnosis Sinusitis Fluid level behind tympanic membrane of both ears BMI 40.0-44.9, adult Non-smoker These Are Your Goals Diabetes Mellitus-Improve glucose levels Interventions: Complete lab work as ordered. Increase daily exercise to 60 minutes a day. Review education pamphlets/books. Take a fasting glucose every morning. Obesity-Lose weight current weight 286.2 Interventions: Increase daily exercise to 60 minutes a day Make better food choices. Review balance diet pamphlet. Chronic pain-decrease back pain. Interventions: Continue with appointments at [facility]. Increase daily exercise Lose weight Take Medications as Prescribed Your Care Team Attending Physician - Albania Begum Primary Care Physician - Rell FERRER, Irasema Medley This Is Your Medications List Misc Prescription (Nebulizer Machine) Misc Prescription (Nebulizer Machine) Misc Prescription (Nebulizer Tubing and Mouthpiece Kit) Misc Prescription (Nebulizer and supplies) Misc Prescription (Test strips-True Metrix) Misc Prescription (lancets) Misc Prescription (na) albuterol (Albuterol (Eqv-ProAir HFA) 90 mcg/inh inhalation aerosol) albuterol (albuterol 0.083% Inh Padma 3 mL) azithromycin (azithromycin 250 mg Tab) brexpiprazole (Rexulti 3 mg oral tablet) bupropion-dextromethorphan (Auvelity 45 mg-105 mg oral tablet, extended release) busPIRone (busPIRone 15 mg Tab) fluticasone nasal (Flonase 0.05 mg/inh [place]) galcanezumab (Emgality Prefilled Pen 120 mg/mL subcutaneous solution) hydrOXYzine (hydrOXYzine pamoate 25 mg Cap) loperamide (Imodium A-D EZ Chews 2 mg oral tablet, chewable) nystatin topical (nystatin Top 100,000 units/g Crm 15 gram) omeprazole (omeprazole 40 mg Cap-DR) ondansetron (Zofran 4 mg Tab) pregabalin (pregabalin 25 mg Cap) tirzepatide (Mounjaro) trazodone (traZODONE 150 mg Tab) ubrogepant (Ubrelvy 100 mg oral tablet) verapamil (verapamil 120 mg ER Tab) Procedures Performed Cyst of breast (12/21/2023), Colonoscopy (02/01/2018), EGD & Colonoscopy (06/01/2016), EGD & Colooscopy (07/31/2014), Colonoscopy (04/28/2012), Colonoscopy, Decompression of lumbar spine, laproscopy x3, Tonsillectomy. Discharge Vitals Temperature (Tympanic) 36.8 ???C Heart Rate (Peripheral) 98 Respiratory Rate 18 Blood Pressure 126/80 Height 175.2 cm Height 69 in Weight 136.9 kg Weight 301.812 lb BMI 44.6 What to do next Scheduled Follow-Up Appointments Tuesday 8:00 AM EDT Where: [facility] [address] [place] [address]- Medications What How Much When Why Instructions New azithromycin (azithromycin 250 mg Tab) 1 Packets By Mouth As Directed Sinusitis Fluid level behind tympanic membrane of both ears BMI 40.0-44.9, adult Non-smoker Duration: 5 Days as directed on package labeling Pickup at [facility] #[id number] New fluticasone nasal (Flonase 0.05 mg/ inh [place]) 1 Sprays Nasal Inhalation 2 times a day Sinusitis Fluid level behind tympanic membrane of both ears BMI 40.0-44.9, adult Non-smoker Refills: 5 each nostril Pickup at [facility] #[id number] Unchanged albuterol (Albuterol (Eqv-ProAir HFA) 90 mcg/ inh inhalation aerosol) 2 Puffs Inhalation Every 6 hours Mild intermittent asthma Unchanged albuterol (albuterol 0.083% Inh Padma 3 mL) 0.083% - 3mL dosing units Inhalation Every 4 hours as needed for Wheezing Unchanged brexpiprazole (Rexulti 3 mg oral tablet) 1 Tablets By Mouth Every day Unchanged bupropion-dextromethorphan (Auvelity 45 mg-105 mg oral tablet, extended release) 1 Tablets By Mouth 2 times a day Unchanged busPIRone (busPIRone 15 mg Tab) 1 Tablets By Mouth 3 times a day Unchanged galcanezumab (Emgality Prefilled Pen 120 [...] 4 hours as needed for Diarrhea Unchanged Misc Prescription (lancets) See instructions lancets [...] and Mouthpiece Kit) See instructions Asthma exacerbation at (more content not included)... Normal [facility] Family Medicine Office/Clini c Noteon 06-11-2024 Family Medicine Office/Clinic Note Family Medicine Office/Clinic Note HPI Staff Alma Delia is a 39 year old female presenting for sick visit Onset: 1 month Pt having sinus congestion/pressure, sinus drainage/green, right ear feel full, denies cough, fever. Pt had same symptoms 1 month ago did get a little better then about 2 weeks ago started to feel bad again. Did online portal through insurance and was prescribed Cefdinir on 06/04/24 and she threw the atb away on accident' History of Present Illness pt presents today with continued URI symptoms for 4 weeks Review of Systems PHQ Score Initial Depression Screen Score: 1 SCORE Physical Exam Vitals & Measurements T: 36.8 ???C(Tympanic) HR: 98(Peripheral) RR: 18 BP: 126/80 SpO2: 99% HT: 69 in HT: 175.2 cm WT: 136.9 kg WT: 301.812 lb BMI: 44.6 General: alert, no acute distress ENMT: oral mucosa moist, no pharyngeal erythema or exudate, JOHNATHON TM full of clear fluid Cardiovascular: regular rate and rhythm, normal peripheral perfusion Respiratory: Lungs CTA, respirations non labored Extremities: no deformity, no trauma Neurological: oriented x 4, LOC appropriate for age, CN II-XII intact, motor strength equal & normal bilaterally, speech normal Assessment/Plan 1. Sinusitis (J32.9: Chronic sinusitis, unspecified) ongoing sinus congestion with cough for 4 weeks. was prescribed cefdinir on 06/04 by telehealth provider but she accidentally threw it away. Ordered: azithromycin, = 1 packet(s), Oral, As Directed, as directed on package labeling, X 5 day(s), # 6 tab(s), Refills(s) 0, Pharmacy: [facility] #[id number], 175.2, cm, 06/11/24 14:27:00 EST, Height/Length Dosing, 136.9, kg, 06/11/24 14:27:00 EST, Weight Dosing fluticasone nasal, 1 spray(s), Nasal, BID, 16 gram, Refill(s) 5, each nostril, [facility] #[id number], 175.2, cm, 06/11/24 14:27:00 EST, Height/Length Dosing, 136.9, kg, 06/11/24 14:27:00 EST, Weight Dosing triamcinolone, 40 mg = 1 mL, Injection, IntraMuscular, Once, Stop date 06/11/24 15:21:00 EST, Routine, Start date 06/11/24 15:21:00 EST, 06/11/24 15:21:00 EST 2. Fluid level behind tympanic membrane of both ears (H65.93: Unspecified nonsuppurative otitis media, bilateral) JOHNATHON TM bulging with clear fluid. Flonase ordered. 40mg Kenalog given IM Ordered: azithromycin, = 1 packet(s), Oral, As Directed, as directed on package labeling, X 5 day(s), # 6 tab(s), Refills(s) 0, Pharmacy: [facility] #[id number], 175.2, cm, 06/11/24 14:27:00 EST, Height/Length Dosing, 136.9, kg, 06/11/24 14:27:00 EST, Weight Dosing fluticasone nasal, 1 spray(s), Nasal, BID, 16 gram, Refill(s) 5, each nostril, [facility] #[id number], 175.2, cm, 06/11/24 14:27:00 EST, Height/Length Dosing, 136.9, kg, 06/11/24 14:27:00 EST, Weight Dosing triamcinolone, 40 mg = 1 mL, Injection, IntraMuscular, Once, Stop date 06/11/24 15:21:00 EST, Routine, Start date 06/11/24 15:21:00 EST, 06/11/24 15:21:00 EST 3. BMI 40.0-44.9, adult (Z68.41: Body mass index [BMI] 40.0-44.9, adult) BMI education given Ordered: azithromycin, = 1 packet(s), Oral, As Directed, as directed on package labeling, X 5 day(s), # 6 tab(s), Refills(s) 0, Pharmacy: [facility] #[id number], 175.2, cm, 06/11/24 14:27:00 EST, Height/Length Dosing, 136.9, kg, 06/11/24 14:27:00 EST, Weight Dosing fluticasone nasal, 1 spray(s), Nasal, BID, 16 gram, Refill(s) 5, each nostril, [facility] #[id number], 175.2, cm, 06/11/24 14:27:00 EST, Height/Length Dosing, 136.9, kg, 06/11/24 14:27:00 EST, Weight Dosing triamcinolone, 40 mg = 1 mL, Injection, IntraMuscular, Once, Stop date 06/11/24 15:21:00 EST, Routine, Start date 06/11/24 15:21:00 EST, 06/11/24 15:21:00 EST 4. Non-smoker (Z78.9: Other specified health status) continue not smoking Ordered: azithromycin, = 1 packet(s), Oral, As Directed, as directed on package labeling, X 5 day(s), # 6 tab(s), Refills(s) 0, Pharmacy: [facility] #[id number], 175.2, cm, 06/11/24 14:27:00 EST, Height/Length Dosing, 136.9, kg, 06/11/24 14:27:00 EST, Weight Dosing fluticasone nasal, 1 spray(s), Nasal, BID, 16 gram, Refill(s) 5, each nostril, [facility] #[id number], 175.2, cm, 06/11/24 14:27:00 EST, Height/Length Dosing, 136.9, kg, 06/11/24 14:27:00 EST, Weight Dosing triamcinolone, 40 mg = 1 mL, Injection, IntraMuscular, Once, Stop date 06/11/24 15:21:00 EST, Routine, Start date 06/11/24 15:21:00 EST, 06/11/24 15:21:00 EST Follow-up No qualifying data available Problem List/Past Medical History Ongoing Amenorrhea Bipolar disorder, current episode depressed, moderate BMI 40.0-44.9, adult Crohn disease Dysmenorrhea Factor V Leiden Fibromyalgia Fluid level behind tympanic membrane of both ears Galactorrhea in female GERD (gastroesophageal reflux disease) Hyperlipidemia Infected sebaceous cyst Lumbar back pain with radiculopathy affecting right lower extremity Lung nodule Migraine Mild intermittent asthma Mixed incontinence Morbid obesity Non-smoker OAB (overactive bladder) (more content not included)... Normal [facility] Comment on above: Result Comment: Elec tronically Signed By: Albania Begum\.br\Date and Time Signed: 06/11/24 16:11 EST Jonathan 06-05-2024 [facility] Telephone (ENDOMN) ALMA DELIA PEARL ([id number]) 1985 F Date Time Provider Department 06/05/24 EDMUNDO DEVLIN ENDOMN During your visit today, we recorded the following information about you: Ean Haynes MA 06/05/2024 10:24 AM Signed A Prior Authorization is needed for Mounjaro 2.5 mg. Ean Haynes Planting Material Remover II Endocrinology AND Metabolism [place] F20-X Allergies As of Date: 06/05/2024 Noted Allergy Reaction EGGS (EGG) 07/11/2019 2 - Rash Comments: Throat swelling CODEINE 08/16/2005 ERYTHROMYCIN 03/31/2022 14 - Other: See Comments IMITREX (SUMATRIPTAN SUCCINATE) 05/16/2009 Comments: Difficulty breathing LATEX 08/16/2005 2 - Rash 7 - Swelling LURASIDONE 03/31/2022 14 - Other: See Comments 5 - Intolerance MORPHINE 05/23/2008 OZEMPIC (SEMAGLUTIDE) 03/31/2022 8 - GI Upset PENICILLINS 11/15/2006 PYRIDIUM (PHENAZOPYRIDINE HCL) 10/31/2007 Comments: Inside body burning, pain all over body Date Reviewed: 06/01/2024 Reviewed by: Edmundo Devlin MD - Fully Assessed Reason for Visit: Insurance Authorization [[id number]] Prescriptions as of 06/07/2024 - tirzepatide (MOUNJARO) 5 mg/0.5 mL pen injector Inject 5 mg subcutaneously one time a week. - tirzepatide (MOUNJARO) 2.5 mg/0.5 mL pen injector Inject 2.5 mg subcutaneously one time a week. - dextromethorphan-buPROPion (AUVELITY) 45-105 mg tablet 1 tablet Orally twice daily for 90 days - galcanezumab-gnlm (EMGALITY PEN) 120 mg/mL pen ADMINISTER 1 ML UNDER THE SKIN EVERY 30 DAYS - omeprazole (PRILOSEC) 40 mg capsule 1 capsule. - UBRELVY 100 mg tablet TAKE 1 TABLET BY MOUTH AT ONSET OF MIGRAINE. MAY REPEAT AFTER 2 HOURS NEEDED 30 DAYS - brexpiprazole (REXULTI) 2 mg tablet - hydrOXYzine pamoate (VISTARIL) 25 mg capsule TAKE 1 CAPSULE BY MOUTH EVERY DAY AT BEDTIME NEEDED - ondansetron (ZOFRAN) 4 mg tablet Take 4 mg by mouth. - fluticasone (FLONASE) 50 mcg/actuation nasal spray SHAKE LIQUID AND USE 2 SPRAYS IN EACH NOSTRIL EVERY DAY - ADVAIR HFA 230-21 mcg/actuation inhaler INHALE 2 PUFFS BY MOUTH TWICE DAILY DIRECTED - verapamil (CALAN, ISOPTIN) 120 mg tablet Take 120 mg by mouth once daily. - dicyclomine (BENTYL) 20 mg tablet Take 20 mg by mouth as needed. 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] PCOS (polycystic ovarian syndrome) [E28.2] RECTAL AND ANAL HEMORRHAGE [K62.5] 07/29/2008 Abnormal Coagulation Profile [R79.1] 07/31/2008 01/31/2009 Spasm of Muscle [M62.838] 09/27/2008 01/31/2009 Abdominal Pain, Unspecified Site [R10.9] 12/17/2008 01/31/2009 Crohn's Ileitis [K50.00] 01/31/2009 Myalgia and Myositis [MLI2315] 01/31/2009 Fitting and Adjustment of Orthopedic Device [Z4*01/26/2010 Sprained Ankle [S93.409A] 01/26/2010 Neuritis [M79.2] 01/26/2010 11/06/2015 Fibromyalgia [M79.7] 11/06/2015 Migraine without aura and without status migrai* Irritable bowel syndrome [K58.9] GERD (gastroesophageal reflux disease) [K21.9] Endometriosis, site unspecified [N80.9] Crohn's disease (HCC) [K50.90] 05/09/2008 Bipolar 1 disorder (HCC) [F31.9] Arthritis [M19.90] Abdominal pain, generalized [R10.84] Anxiety and depression [F41.9, F32.A] Former smoker [Z87.891] BMI 40.0-44.9, adult (HCC) [Z68.41] Chronic pain syndrome [G89.4] 04/20/2016 Lumbar disc herniation [M51.26] 04/20/2016 Type 2 diabetes mellitus without complication, *06/24/2022 Encounter Status:Closed by EAN HAYNES on 06/07/24 Normal [facility] Ambulatory Visit Summaryon 0 05-22-2024 Ambulatory Visit Summary Ambulatory Visit Summary ALMA DELIA PEARL :1985 MRN:--[id number] Visit Date:05/22/2024 Ambulatory Visit Instructions Your Diagnosis Lumbar radiculopathy These Are Your Goals Diabetes Mellitus-Improve glucose levels Interventions: Complete lab work as ordered. Increase daily exercise to 60 minutes a day. Review education pamphlets/books. Take a fasting glucose every morning. Obesity-Lose weight current weight 286.2 Interventions: Increase daily exercise to 60 minutes a day Make better food choices. Review balance diet pamphlet. Chronic pain-decrease back pain. Interventions: Continue with appointments at [facility]. Increase daily exercise Lose weight Take Medications as Prescribed Your Care Team Attending Physician - Devon Calle PA-C Primary Care Physician - Rell FERRER, Irasema Medley This Is Your Medications List predniSONE (predniSONE 20 mg Tab) tizanidine (tiZANidine 2 mg Tab) Contact prescribing physician if questions or concerns Misc Prescription (Nebulizer Machine) Misc Prescription (Nebulizer Machine) Misc Prescription (Nebulizer Tubing and Mouthpiece Kit) Misc Prescription (Nebulizer and supplies) Misc Prescription (Test strips-True Metrix) Misc Prescription (lancets) Misc Prescription (na) albuterol (Albuterol (Eqv-ProAir HFA) 90 mcg/inh inhalation aerosol) albuterol (albuterol 0.083% Inh Padma 3 mL) brexpiprazole (Rexulti 3 mg oral tablet) bupropion-dextromethorphan (Auvelity 45 mg-105 mg oral tablet, extended release) busPIRone (busPIRone 15 mg Tab) doxycycline (doxycycline hyclate 100 mg Cap) famotidine (Pepcid 20 mg Tab) galcanezumab (Emgality Prefilled Pen 120 mg/mL subcutaneous solution) hydrOXYzine (hydrOXYzine pamoate 25 mg Cap) loperamide (Imodium A-D EZ Chews 2 mg oral tablet, chewable) naproxen (Naprosyn 500 mg Tab) nystatin topical [...] laproscopy x3, Tonsillectomy. Discharge Vitals Temperature (Oral) 36.5 ???C Heart Rate (Peripheral) 88 Respiratory Rate 18 Blood Pressure 130/84 Height 175.2 cm Height 69 in Weight 139 kg Weight 306.442 lb BMI 45.28 What to do next Scheduled Follow-Up Appointments Tuesday. 2024 8:00 AM EDT Where: [facility] [address] [facility], [facility] [place] [address]- You Need to Schedule the Following Appointments Follow Up with Rell FERRER, Irasema Medley When: Where: [address], [facility] [place] [address]- Medications What How Much When Why Instructions New predniSONE (predniSONE 20 mg Tab) 2 Tablets By Mouth Every day Lumbar radiculopathy Duration: 5 Days Pickup at [facility] #41932 New tizanidine (tiZANidine 2 mg Tab) 1 Tablets By Mouth Every 8 hours Lumbar radiculopathy Duration: 7 Days Pickup at [facility] #97847 Unchanged albuterol (Albuterol (Eqv-ProAir HFA) 90 mcg/ inh inhalation aerosol) 2 Puffs Inhalation Every 6 hours Mild intermittent asthma Contact prescribing physician if questions or concerns Unchanged albuterol (albuterol 0.083% Inh Padma 3 mL) 0.083% - 3mL dosing units Inhalation Every 4 hours as needed for Wheezing Contact prescribing physician if questions or concerns Unchanged brexpiprazole (Rexulti 3 mg oral tablet) 1 Tablets By Mouth Every day Contact prescribing physician if questions or concerns Unchanged bupropion-dextromethorphan (Auvelity 45 mg-105 mg oral tablet, extended release) 1 Tablets By Mouth 2 times a day Contact prescribing physician if questions or concerns Unchanged busPIRone (busPIRone 15 mg Tab) 1 Tablets By Mouth 3 times a day Contact prescribing physician if questions or concerns Unchanged doxycycline (doxycycline hyclate 100 mg Cap) 1 Capsules By Mouth Every day Take 1 pill the day before the procedure and 1 pill after the procedure Contact prescribing physician if questions or concerns Unchanged famotidine (Pepcid 20 mg Tab) 1 Tablets By Mouth Every day Contact prescribing physician if questions or concerns Unchanged galcanezumab (Emgality Prefilled Pen 120 mg/ mL subcutaneous solution) Subcutaneous Once a month ADMINISTER 1 ML UNDER THE SKIN MONTHLY Contact prescribing physician if questions or concerns Unchanged hydrOXYzine (hydrOXYzine pamoate 25 mg Cap) 1 Capsules By Mouth As needed for as needed for anxiet (more content not included)... Normal [facility] Family Medicine Office/Clini c Noteon 05-22-2024 Family Medicine Office/Clinic Note Family Medicine Office/Clinic Note Chief Complaint lower back pain HPI Staff 39 year old female presents with lower back/hip pain-right worse Symptoms began: one week ago Injury?- no Location- lower back/hip pain Characteristics- throbbing, burning Aggravators- standing Relief- tylenol/ibuprofen Timing- Severity- Hx of back issues- yes spinal stenosis/DDD, previous back surgery Numbness/Tingling- no Weakness- no Gait- a little bit Loss bowel/bladder- no History of Present Illness I have reviewed and verified the staff HPI to be accurate for this encounter. Portions of this record have been created with voice recognition software. Occasional wrong-word or ???[id number]??? substitutions may have occurred due to the inherent limitations of voice recognition software. 39 yo female presents today with cc of low back pain rating into right hip started x 1 week ago states the pain is throbbing in nature radiates into the right hip and sometimes is burning states standing walking or weightbearing is worse than sitting or lying down. She has been taking Tylenol ibuprofen with some relief she does have history of spinal stenosis and degenerative disc disease in her back states she has had previous back surgery. He does states that about a week ago she had tripped in her home and caught herself prior to falling states she maybe noticed a little bit of back discomfort then but states right now one of the legs on her bed is broken and states she has been sleeping on a corrected mattress so she does not feel like that is of benefit to her back either. She had her initial back surgery in [address] Capellan in [place]. She was told that she would probably need surgeries in the future in regards degenerative disc disease and disc bulging. Patient states she has not seen him recently states that she always has some numbness and tingling down the right lower extremity if she stands for too long periods of time and that has been ever since her initial back surgery states is not worse than her baseline. States when she is sitting and resting she would rate her back pain is a 5 out of 10 on the pain scale when standing walking or weightbearing she would rate this an 8 out of 10 on the pain scale she states the pain does travel into the right posterior lateral hip region and is burning in regards to sensation. She denies any urinary or bowel incontinence or retention denies any dysuria hematuria urinary urgency or frequency. She denies any saddle anesthesia. She has been taking Tylenol ibuprofen with some relief of symptoms but came in for further evaluation today. She has no other concerns at this time. Review of Systems ROS negative unless otherwise stated in HPI. Physical Exam Vitals & Measurements T: 36.5 ???C(Oral) HR: 88(Peripheral) RR: 18 BP: 130/84 SpO2: 97% HT: 69 in HT: 175.2 cm WT: 139 kg WT: 306.442 lb BMI: 45.28 General: Pleasant morbidly obese female, no acute distress sitting upright in the exam chair today Eyes: not assessed Ears: not assessed Nose: not addressed Mouth: not assessed Neck: Normal alignment of cervical spine no step-offs or deformities. Neck is supple. Able to touch her chin to her chest. No meningeal signs. Normal range of motion of the neck. Lungs: Lung sounds are clear bilaterally. No wheezing rhonchi or crackles on exam Cardio: S1, S2, regular rhythm. No murmurs gallops or rubs. Abdomen: not assessed Musculoskeletal: Normal alignment of the spinal column no localized thoracic or paraspinal tenderness. Patient has a lower lumbar incision and just above that is where she states she started to have some pain and discomfort no step-offs or deformities no paraspinal tenderness patient has discomfort with palpation over the right lower portion of her back which seems to be musculoskeletal in nature however states that radiates down into her hip lateral hip and lateral leg. No rashes lacerations abrasions or lesions. No focal deficits Extremity: Patient walked back convening care on her own without gait abnormality. Neurologic: not assessed Skin: No rashes, ulcerations, or suspicious lesions Mental Status: Alert and oriented x3. Normal mood and affect Assessment/Plan I spoke with patient regards to concern for lumbar radiculopathy discussed in regards to disc bulging herniated disc spinal stenosis etc. given patient history I would like her to follow-up with her primary care provider or even her spinal surgeon if she does not improve despite medication treatment today including prednisone 40 mg daily x 5 days duration in addition to tizanidine or muscle relaxer 2 mg every 8 hours as needed for muscle spasm. Patient understands medication may make her drowsy so understands not to drive or drink alcohol with taking this medication discussed ER for reevaluation if develops any saddle anesthesia urinary bowel incontinence or retention, numbness tingling weakness of the lower extremities that is worse than her baseli (more content not included)... Normal [facility] Comment on above: Result Comment: Elec tronically Signed By: Luc GUERRERO, Devon De La Cruz\.br\Date and Time Signed: 05/22/24 14:14 EST Pre-Visit Planningon 024 Pre-Visit Planning Pre-Visit Planning From: Rebecca Multani To: WILLIE YIP; Sent: 03/22/2024 10:14:42 EST Subject: Pre-Visit Planning Due Date/Time: 03/22/2024 10:14:00 EST Caller Name: ALMA DELIA PEARL; Caller Number: Sanchez , Shaq Ordoñez. During a pre-visit planning chart review, I noted the following documentation in the medical record indicates this patient has been diagnosed as having: Factor V Leiden mutation. Based on your medical judgment, can you please further validate the above diagnosis? I can update the Chronic Problem List with your response if you would like. -The above diagnosis is not supported by clinical indicators and is resolved. -The above diagnosis is supported by the following clinical indicators: -Other (please specify): In responding to this request, please exercise your independent professional judgment. The fact that a question is asked does not imply that any particular answer is desired or expected. If you have any questions, please feel free to contact me at extension [phone]. Thank you! Rebecca Multani LPN Clinical Executive Creative Director [address] [address] Extension: [phone] [email or web address] From: SAIRA YIP To: Rebecca Multani; Sent: 03/26/2024 11:46:29 EST Subject: RE: Pre-Visit Planning Caller Name: DAEALMA DELIA Kasi; Caller Number: , M she was a no show for me. so she is not my patient Normal [facility] ED Clinical Summaryon 2023 ED Clinical Summary ED Clinical Summary [address] [address] ED Clinical Summary Person Information Name: ALMA DELIA PEARL [facility] Age: 38 Years : 1985 Sex: Female Language: Nigerian PCP: Irasema Love Marital Status: MRN: Visit Id: Visit Reason: Ear pain; Cough; Sinus Pain/Congestion; COUGH/SORE THROAT/EARS HURTING Speciality: Acuity: 3 Enc Type: Emergency Med Service: Emergency Arrival: 03/02/2024 21:08:15 Discharge: 03/02/2024 22:17:07 LOS: 000 01:09 Checkin: 03/02/2024 21:08:15 Checkout: 03/02/2024 22:17:07 Dispo Type: Home (Routine DC) EVENTS: Event Name Event Status Request Date/Time Start Date/Time Complete Date/Time Arrive Complete 03/02/2024 21:08:15 03/02/2024 21:08:15 03/02/2024 21:08:15 Document Home Meds Request 03/02/2024 21:08:15 Triage Complete 03/02/2024 21:08:15 03/02/2024 21:24:09 03/02/2024 21:24:09 Registration Complete 03/02/2024 21:18:16 03/02/2024 21:18:16 03/02/2024 21:18:16 Reg Complete Request 03/02/2024 21:18:16 Reg Bed Request Complete 03/02/2024 21:18:16 03/02/2024 21:18:16 03/02/2024 21:18:16 Bed Assign Complete 03/02/2024 21:24:39 03/02/2024 21:24:39 03/02/2024 21:24:39 Dr Exam Complete 03/02/2024 21:24:39 03/02/2024 21:44:52 03/02/2024 21:44:52 RN Exam Complete 03/02/2024 21:24:39 03/02/2024 21:45:55 03/02/2024 21:45:55 Registration Request 03/02/2024 21:44:52 Dr Exam Complete 03/02/2024 21:49:06 03/02/2024 21:49:06 03/02/2024 21:49:06 Meds Admin Complete 03/02/2024 22:07:15 03/02/2024 22:16:27 Discharge Complete 03/02/2024 22:08:43 03/02/2024 22:17:11 03/02/2024 22:17:11 Transfer Complete 03/02/2024 22:17:11 03/02/2024 22:17:11 03/02/2024 22:17:11 ADDRESS: [address] [place] [phone] PHYS DOC NOTES: MEDICAL INFORMATION: Prescriptions Given: New Medications [facility] #[id number], [address] [place], [place] [id number], [phone] cefdinir (cefdinir 300 mg Cap) 1 Capsules By Mouth every 12 hours for 7 Days. Refills: 0. methylPREDNISolone (Medrol 4 mg Tab) 1 Packets By Mouth As Directed for 6 Days. as directed on package labeling. Refills: 0. Medications to Continue with No Changes Other Medications albuterol (Albuterol (Eqv-ProAir HFA) 90 mcg/inh inhalation aerosol) 2 Puffs Inhalation every 6 hours. Refills: 4. albuterol (albuterol 0.083% Inh Padma 3 mL) 0.083% - 3mL dosing units Inhalation every 4 hours as needed Wheezing. Refills: 11. benzonatate (Tessalon 100 mg Cap) 1 Capsules By Mouth 3 times a day for 7 Days. Refills: 0. brexpiprazole (Rexulti 3 mg oral tablet) 1 Tablets By Mouth every day. bupropion-dextromethorphan (Auvelity 45 mg-105 mg oral tablet, extended release) 1 Tablets By Mouth 2 times a day. busPIRone (busPIRone 15 mg Tab) 1 Tablets By Mouth 3 times a day. doxycycline (doxycycline hyclate 100 mg Cap) 1 Capsules By Mouth every day. Take 1 pill the day before the procedure and 1 pill after the procedure. Refills: 0. famotidine (Pepcid 20 mg Tab) 1 Tablets By Mouth every day. Refills: 0. galcanezumab (Emgality Prefilled Pen 120 mg/mL subcutaneous solution) Subcutaneous once a month. ADMINISTER 1 ML UNDER THE SKIN MONTHLY. hydrOXYzine (hydrOXYzine pamoate 25 mg Cap) 1 Capsules By Mouth as needed as needed for anxiety. TAKE 1 CAPSULE BY MOUTH EVERY 6 HOURS NEEDED FOR ANXIETY. loperamide (Imodium A-D EZ Chews 2 mg oral tablet, chewable) 1 Tablets Chewed every 4 hours as needed Diarrhea. Refills: 0. Misc Prescription (lancets) lancets test daily E11.9. [...] high or low blood sugars. Refills: 2. naproxen (Naprosyn 500 mg Tab) 1 Tablets By Mouth 2 times a day as needed for pain. Refills: 0. nystatin topical (nystatin Top 100,000 units/g Crm 15 gram) 1 Application Topical 2 times a day. Refills: 1. omeprazole (omeprazole 10 mg Cap-EC) 1 Capsules By Mouth 2 times a day. Refills: 1. ondansetron (Zofran 4 mg Tab) 1 Tablets By Mouth every 8 hours as needed Nausea/Vomiting. Refills: 0. ondansetron (Zofran ODT 4 mg Tab-Dis) 1 Tablets By Mouth every 8 hours as needed Nausea/Vomiting. Refills: 0. pregabalin (pregabalin 25 mg Cap) 1 Capsules By Mouth 2 times a day. promethazine (Phenergan 12.5 mg Supp) 1 Suppositories By rectum every 4 hours as needed Nausea/ (more content not included)... Normal [facility] ED Note-Physicianon 03-02-20 ED Note-Physician ED Note-Physician Basic Information Time Seen: Luis Almanza PA-C. 03/02/2024 21:44 Chief Complaint Throat pain, congestion, ear pain for past week. Seen in urgent care. History of Present Illness A 38-year-old female reports emerged apartment with chief complaint of throat pain, congestion and ear pain. Reports of gone for over a week now. She states that this is just worsening. Denies any fevers but reports pain is going down to her right ear into her throat more now. She reports that she has multiple allergies. She denies any known fevers recently. Denies any recent sick contacts. Review of Systems No other aggravating or relieving factors no other associated symptoms no other prior treatments or complaints. Family: Reviewed and noncontributory Social: lives at home Review of systems negative unless otherwise specified in the HPI. Physical Exam Vitals & Measurements T: 36.6 ???C(Oral) HR: 87(Peripheral) RR: 16 BP: 118/80 SpO2: 97% HT: 175.2 cm WT: 137.9 kg BMI: 44.93 General: The patient appears well and in no apparent distress. Patient is resting comfortably in chair. Afebrile Skin: Warm, dry, no pallor noted. Head: Normocephalic, atraumatic Neck: No JVD. Mild right-sided lymphadenopathy Eye: PERRLA, EOMI ENT: Moist mucus membranes. Pharynx pink moist no erythema or exudates. Bilateral TMs intact with no erythema or bulging Cardiovascular: Regular rate normal peripheral perfusion Respiratory: [...] and Complexity of Problems Differential Diagnosis: [] [facility] Data External documents reviewed: [] My EKG interpretation: [] My CT interpretation: [] My X-ray interpretation: [] My Ultrasound interpretation: [] Decision rules/scores evaluated: [] Discussed with: [] Treatment and Disposition ED Course: 38-year-old female reports emergency department with complaints of cough congestion ear pain and neck pain. The reports been gone for over a week now. States that was told it was a viral, but symptoms were not getting better. Exam the patient does reveal some mild lymphangitis on examination. Likely lower respiratory infection. Due to concerns patient started on a Medrol Dosepak, as well as cefdinir for antibiotic coverage. She was happy with this. Discussed return precautions. Follow-up with your primary care provider in 3 to 5 days. If symptoms worsen, do not improve, or new symptoms arise please report back to emergency department for further evaluation. The patient was understanding and agreeable to plan moving forward. Shared decision making: [] Code status: [] Assessment/Plan Lower respiratory tract infection (J22: Unspecified acute lower respiratory infection) Lymphangitis (I89.1: Lymphangitis) Orders: cefdinir, 300 mg = 1 cap(s), Cap, Oral, Once, Stop date 03/02/24 22:07:00 EDT, STAT, Start date 03/02/24 22:07:00 EDT, 03/02/24 22:07:00 EDT cefdinir, 300 mg = 1 cap(s), Oral, q12hr, X 7 day(s), # 14 cap(s), Refills(s) 0, Pharmacy: [facility] #[id number], 175.2, cm, 03/02/24 21:24:00 EDT, Height/Length Dosing, 137.9, kg, 03/02/24 21:24:00 EDT, Weight Dosing methylPREDNISolone, = 1 packet(s), Oral, As Directed, as directed on package labeling, X 6 day(s), # 21 tab(s), Refills(s) 0, Pharmacy: [facility] #[id number], 175.2, cm, 03/02/24 21:24:00 EDT, Height/Length Dosing, 137.9, kg, 03/02/24 21:24:00 EDT, Weight Dosing Medications Administered Given cefdinir 300 mg Cap, 300 mg, Oral Disposition Plan Patient Discharge Condition Stable Discharge Disposition To home Discharge Prescription List Prescriptions cefdinir 300 mg Cap, 300 mg= 1 cap(s), Oral, q12hr Medrol 4 mg Tab, 1 packet(s), Oral, As Directed Follow-up With When Contact Information Irasema Rell In 3 days 03/05/2024 EDT [address] [facility] [address] [place] [id number] [facility] (1) Additional Instructions: Call Dr for diagnosis based follow up Patient Education Upper Respiratory Infection, Adult, [id number] Attestation Patient seen and evaluated by the physician clinical medical assistant. Attending physician was present in the emergency department and supervised care. This visit was performed by both the physician and an APC. I performed all aspects of the MDM as documented. This report was transcribed using voice recognition software. Every effort was made to ensure accuracy, however, inadvertently computerized living skills advisor mistakes may be present. Appropriate healthcare PPE was used in evaluating this patient. The patient was placed in a mask. The healthcare p (more content not included)... Normal [facility] Comment on above: Result Comment: Elec tronically Signed By: Luis Almanza PA-C\.br\Date and Time Signed: 03/02/24 23:19 EDT\.br\Electronically Co-Signed By: James Faulkner DO\.br\Date and Time Co-Signed: 03/02/24 23:24 EDT ED Patient Summaryon 024 ED Patient Summary ED Patient Summary [address] [address] Patient Discharge Instructions Person Information Name: ALMA DELIA PEARL Age: 38 Years Arrival Date: 03/02/2024 21:08:15 Discharge Diagnosis: Lower respiratory tract infection; Lymphangitis Primary Care Physician: Irasema Love Provider Information Primary Provider: James Faulkner DO Advanced Manager Medical Affairs:None The exam and treatment you received in the Emergency Department were for an urgent problem and are not intended as complete care. It is important that you follow up with a doctor, nurse practitioner, or physician???s clinical medical assistant for ongoing care. If your symptoms [...] Follow-up Instructions: With: Address: When: Irasema Zacarias [address] [place] [address] [place] [id number] Business (1) In 3 days 03/05/2024 Comments: Call Dr for diagnosis based follow up In the event that this physician does not participate in your insurance network, please consult with your insurance company to find a nearby participating provider. Patient Education Materials: Upper Respiratory Infection, Adult, [id number] A MESSAGE TO ALL PATIENTS REGARDING OPIOIDS PRESCRIPTION OPIOIDS: WHAT YOU NEED TO KNOW Prescription opioids can be used to help relieve jivncreo-aj-cspudt pain and are often prescribed following a [...] as well, even when taken as directed: ??? Tolerance???meaning you might need to take more of the medication for the same pain relief ??? Physical dependence???meaning you have symptoms of withdrawal when a medication is stopped ??? Increased sensitivity to pain ??? Constipation ??? Nausea, vomiting, and dry mouth ??? Sleepiness and dizziness ??? Confusion ??? Depression ??? Low levels of testosterone that can result in lower sex drive, energy, and strength ??? Itching and sweating RISKS ARE GREATER WITH: ??? History of drug misuse, substance use disorder, or overdose ??? Mental health conditions (such as depression or anxiety) ??? Sleep apnea ??? Older age (65 years and older) ??? Avoid alcohol while taking prescription opioids. Also, unless specifically advised by your health care provider, medications to avoid include: ??? Benzodiazepines (such as Xanax or Valium) ??? Muscle relaxants (such as Soma or Flexeril) ??? Hypnotics (such as Ambien or Lunesta) ??? Other prescription opioids KNOW YOUR OPTIONS Talk to your health care provider about ways to manage your pain that don???t involve prescription opioids. Some of these options may actually work better and have fewer risks and side effects. Options may include: ??? Pain relievers such as acetaminophen, ibuprofen, and naproxen ??? Some medication that are also used for depression or seizures ??? Physical therapy and exercise ??? Cognitive behavioral therapy, a psychological, goal-directed approach, in which patients learn how to modify physical, behavioral, and emotional triggers of pain and stress. IF YOU ARE PRESCRIBED OPIOIDS FOR PAIN: ??? Never take opioids in greater amounts or more often than prescribed. ??? Follow up with your primary health care provider. o Work together to create a plan on how to manage your pain. o Talk about ways to help manage your pain that don???t involve prescription opioids. o Talk about any and all concerns and side effects. ??? Help prevent misuse and abuse o Never sell or share prescription opioids. o Never use another person???s prescription opioids. ??? Store prescription opioids in a secure place and out of reach of others (this may include visitors, children, friends, and family). ??? Safely dispose of unused prescription opioids: Find your community drug take-back program or your pharmacy mail-back program, or flush them down the toilet, following guidance from the Food and Drug Administration (www.fda.gov/Drugs/Resource sForYou). ??? Visit www.cdc.gov/drugoverdose to learn about the risks of opioids abuse a (more content not included)... Normal [facility] Ambulatory Visit Summaryon 1 Ambulatory Visit Summary Ambulatory Visit Summary ALMA DELIA PEARL :1985 Visit Date:02/28/2024 Ambulatory Visit Instructions Your Diagnosis Viral URI with cough These Are Your Goals Diabetes Mellitus-Improve glucose levels Interventions: Complete lab work as ordered. Increase daily exercise to 60 minutes a day. Review education pamphlets/books. Take a fasting glucose every morning. Obesity-Lose weight current weight 286.2 Interventions: Increase daily exercise to 60 minutes a day Make better food choices. Review balance diet pamphlet. Chronic pain-decrease back pain. Interventions: Continue with appointments at [facility] pain clinic. Increase daily exercise Lose weight Take Medications as Prescribed Your Care Team Attending Physician - Devon Calle PA-C Primary Care Physician - Rell FERRER, Irasema Medley This Is Your Medications List benzonatate (Tessalon 100 mg Cap) tirzepatide (Mounjaro) Contact prescribing physician if questions or concerns Misc Prescription (Nebulizer Machine) Misc Prescription (Nebulizer Machine) Misc Prescription (Nebulizer Tubing and Mouthpiece Kit) Misc Prescription (Nebulizer and supplies) Misc Prescription (Test strips-True Metrix) Misc Prescription (lancets) Misc Prescription (na) albuterol (Albuterol (Eqv-ProAir HFA) 90 mcg/inh inhalation aerosol) albuterol (albuterol 0.083% Inh Padma 3 mL) brexpiprazole (Rexulti 3 mg oral tablet) bupropion-dextromethorphan (Auvelity 45 mg-105 mg oral tablet, extended release) busPIRone (busPIRone 15 mg Tab) doxycycline (doxycycline hyclate 100 mg Cap) famotidine (Pepcid 20 mg Tab) galcanezumab (Emgality Prefilled Pen 120 mg/mL subcutaneous solution) hydrOXYzine (hydrOXYzine pamoate 25 mg Cap) loperamide (Imodium A-D EZ Chews 2 mg oral tablet, chewable) naproxen (Naprosyn 500 mg Tab) nystatin topical (nystatin Top 100,000 units/g Crm 15 gram) omeprazole (omeprazole 10 mg Cap-EC) ondansetron (Zofran 4 mg Tab) ondansetron (Zofran ODT 4 mg Tab-Dis) pregabalin (pregabalin 25 mg Cap) promethazine (Phenergan 12.5 mg Supp) promethazine (Phenergan 25 mg Supp) trazodone (traZODONE 50 mg Tab) ubrogepant (Ubrelvy 100 mg oral tablet) verapamil (verapamil 120 mg ER Tab) [Image Removed: STOP]Stop taking these medications ascorbic acid (Vitamin C) ciprofloxacin (Cipro 500 mg Tab) ergocalciferol (Vitamin D) magnesium oxide multivitamin (Multi Vitamin+) multivitamin (Vitamin B Complex oral capsule) Procedures Performed Cyst of breast (12/21/2023), Colonoscopy (02/01/2018), EGD & Colonoscopy (06/01/2016), EGD & Colooscopy (07/31/2014), Colonoscopy (04/28/2012), Colonoscopy, Decompression of lumbar spine, laproscopy x3, Tonsillectomy. Discharge Vitals Temperature (Oral) 36.9 ?C Heart Rate (Peripheral) 86 Blood Pressure 132/86 Height 176 cm Height 69 in Weight 138 kg Weight 303.6 lb BMI 44.55 What to do next Scheduled Follow-Up Appointments Tuesday 10:00 AM EST Where: [facility] Tuesday 10:30 AM EST Where: [facility] Tuesday 8:00 AM EDT Where: [facility] [address] [place], [place] [address]alf, [place] [address]- Medications What How Much When Why Instructions New benzonatate (Tessalon 100 mg Cap) 1 Capsules By Mouth 3 times a day Viral URI with cough Duration: 7 Days Pickup at [id number] Unchanged tirzepatide (Mounjaro) Subcutaneous Every week Fridays Unchanged albuterol (Albuterol (Eqv-ProAir HFA) 90 mcg/ inh inhalation aerosol) 2 Puffs Inhalation Every 6 hours Mild intermittent asthma Contact prescribing physician if questions or concerns Unchanged albuterol (albuterol 0.083% Inh Padma 3 mL) 0.083% - 3mL dosing units Inhalation Every 4 hours as needed for Wheezing Contact prescribing physician if questions or concerns Unchanged brexpiprazole (Rexulti 3 mg oral tablet) 1 Tablets By Mouth Every day Contact prescribing physician if questions or concerns Unchanged bupropion-dextromethorphan (Auvelity 45 mg-105 mg oral tablet, extended release) 1 Tablets By Mouth 2 times a day Contact prescribing physician if questions or concerns Unchanged busPIRone (busPIRone 15 mg Tab) 1 Tablets By Mouth 3 times a day Contact prescribing physician if questions or concerns Unchanged doxycycline (doxycycline hyclate 100 mg Cap) 1 Capsules By Mouth Every day Take 1 pill the day before the procedure and 1 pill after the procedure Contact prescribing physician if questions or concerns Unchanged famotidine (Pepcid 20 mg Tab) 1 Tablets By Mouth Every day Contact prescribing physician if questions or concerns Unchanged galcanezumab (Emgality Prefilled Pen 120 mg/ mL subcutaneous solution) Subcutaneous Once a month ADMINISTER 1 ML UNDER THE SKIN MONTHLY Contact prescribing physician if questions or concerns Unchanged hydr (more content not included)... Normal [facility] Family Medicine Office/Clini c Noteon 02-28-2024 Family Medicine Office/Clinic Note Family Medicine Office/Clinic Note Chief Complaint EST sore throat, sinus congestion HPI Staff Alma Delia is a 38 year old female here for cough, sinus congestion. Symptoms started- 4-5 days Headache- yes pt. started taking antiobiotic 3 days ago, took 1 dose, then lost the medication. Body aches- denies Earache- bilateral ear pain Runny/stuffy nose- yes Sore throat- yes, feels swollen Cough- yes Scratchy tickly throat- yes Chest symptoms- denies Lung Hx asthma, bronchitis, chest colds- hx of asthma Fever/chills- low grade fever several days ago. OTC- cold and flu History of Present Illness I have reviewed and verified the staff HPI to be accurate for this encounter. Portions of this record have been created with voice recognition software. Occasional wrong-word or ?flozf-s-etfn? substitutions may have occurred due to the inherent limitations of voice recognition software. 38 yo female with history of anxiety, Crohn's disease, bipolar disorder, depression, fibromyalgia, hyperlipidemia, sleep apnea, PCOS presents today with cc of cough and sinus congestion. Patient states symptoms started approximately 4 to 5 days ago. States a runny stuffy nose with cough congestion headache and bilateral ear pain. States her throat also does feel swollen. States that she was prescribed an antibiotic approximately 3 days ago on the as well as an albuterol inhaler however states that she took 1 dose of the antibiotic and then lost it. States she has not had any more the antibiotics since. She does state a history of asthma. Denies any wheezing chest pain shortness of breath or difficulty breathing. Denies any smoking history. States she did initially have a low-grade fever several days ago at onset however states no fever in the last several days. States otherwise she has been using qklf-hzc-tyjconn cold and flu medication without much relief of her symptoms. She denies any abdominal pain nausea vomiting or loose stool. Denies any loss of sense of taste or smell. She has no other concerns at this time. Review of Systems PHQ Score Initial Depression Screen Score: 0 SCORE ROS negative unless otherwise stated in HPI. Physical Exam Vitals & Measurements T: 36.9 ?C(Oral) HR: 86(Peripheral) BP: 132/86 SpO2: 97% HT: 69 in HT: 176 cm WT: 138 kg WT: 303.6 lb BMI: 44.55 General: Pleasant obese female, no acute distress Eyes: Bilateral conjunctiva within normal limits no injection Ears: Bilateral TMs are within normal limits no erythema or bulging. Bilateral external auditory canals are with normal limits no erythema or edema Nose: mild nasal mucosa inflammation and edema no active drainage deformity or lesion Mouth: Moist mucous membranes. Uvula is midline. No acute tonsillar erythema edema or exudate. No signs of peritonsillar abscess. No trismus or drooling. Postnasal drip is noted at the posterior oropharynx. Neck: no adenopathy Lungs: lung sounds are clear bilaterally. No wheezing rhonchi or crackles on exam. Cardio: S1, S2, regular rhythm. No murmurs gallops or rubs. Abdomen: not assessed Musculoskeletal: not assessed Extremity: not assessed Neurologic: not assessed Skin: not assessed Mental Status: Alert and oriented x3. Normal mood and affect Assessment/Plan Patient notes that her prescription of doxycycline albuterol inhaler came from a telephone visit it was not a video visit. States she would like to have rapid strep COVID and flu testing as she states with her history of autoimmune disease and with her Crohn's and current medications she states that she prefers to know if she does have COVID flu or strep. Patient rapid COVID-19 influenza and strep testing are all negative in office will send strep for culture to confirm that she does not have strep a patient understands that no news is good news if she does not hear back from us then that strep culture is negative if it were to be positive we will call and notify patient as she would require antibiotics. I discussed with patient that she most likely has a viral upper respiratory infection in which I discussed that I do not believe she requires antibiotics at this time which patient is in agreement. Patient requests a cough suppressant which does not have dextromethorphan in it as she takes a medication which is a combination of Wellbutrin and dextromethorphan for treatment of depression. Patient states the only ymax-rfl-qxoqukk medication she found she believes the only component that is helping her is Tylenol. Will send Tessalon Perles 1 tablet every 8 hours as needed for cough with the patient. Understands that her symptoms may last within 7 to 14 days in duration the worst of the symptoms are typically in the first 3 to 5 days she will follow closely with primary care provider return if needed patient agrees and understands plan 1. Viral URI with cough (J06.9: Acute upper respiratory infection, unspecified) Discussed exam and hx are consistent with viral illness. Advised (more content not included)... Normal [facility] Comment on above: Result Comment: Elec tronically Signed By: Luc GUERRERO, Devon De La Cruz\.br\Date and Time Signed: 02/28/24 09:53 EDT [facility] Patient Letter [facility] [address] [place] [phone] February 28, 2024 LAMA DELIA PEARL [address] [place] [address] : 1985 Please excuse ALMA DELIA PEARL from work . Date and/or Time of Absence: From: 02/28/24 To: 02/29/24 May return to work on: 02/29/24 Restrictions: None Comments: Please excuse due to an acute illness. Provider Signature: Devon Calle PA-C Physician Report Manager [facility] [address] [place] [address] Normal [facility] IGP,APTIMA HPV,AGE GDLNon AGE GDLN ACOG TESTING Note . [facility] Comment on above: TESTS RESULT FLAG UN ITS REF RANGE LAB Clinician Provided Cytology Information Source.............Cervix;Endocervix No. of containers..01 ThinPrep Vial Age Algo ACOG Saldu... 30-65 01 FLAG LEGEND: L-Low Normal,H-High Normal,LL-Alert Low,HH-Alert High <-Panic Low,>-Panic High,A-Abnormal,AA-Critical Abnormal Performed at: 01 =G [facility] [address] [place] [address] Payton Nicole MD, HPV APTIMA Negative Negative [facility] Comment on above: This nucleic acid am plification test detects fourteen high- risk HPV types (16,18,31,33,35,39,45,51,52,56,58,59,66,68) without differentiation. Performed at: =G - [facility], [place] [id number] Awning Finisher: Payton Nicole MD, Phone: [phone] Performed at: [facility] [id number] [place] [id number] Awning Finisher: Chris Miramontes MD, Phone: [phone] IGP, APTIMA HPV, RFX 16/18,45 Note . [facility] Comment on above: TESTS RESULT FLAG UN ITS REF RANGE LAB DIAGNOSIS: 02 NEGATIVE FOR INTRAEPITHELIAL LESION OR MALIGNANCY. Specimen adequacy: 02 Satisfactory for evaluation. Endocervical and/or squamous metaplastic cells (endocervical component) are present. Performed by: Henry Shrestha, Survey Research Teacher ([employer]NA[employer]AMP[employer]) . 02 Note: Note 03 The Pap smear is a screening test designed to aid in the detection of premalignant and malignant conditions of the uterine cervix. It is not a diagnostic procedure and should not be used as the sole means of detecting cervical cancer. Both false-positive and false-negative reports do occur. Test Methodology: Note 03 This liquid based ThinPrep(R) pap test was screened with the use of an image guided system. HPV Genotype Reflex Note 02 Criteria not met, HPV Genotype not performed. FLAG LEGEND: L-Low Normal,H-High Normal,LL-Alert Low,HH-Alert High <-Panic Low,>-Panic High,A-Abnormal,AA-Critical Abnormal Performed at: 02 KWCYT [facility] [address] [place] [id number] Chris Miramontes MD, 03 WB [facility] [address] [address] Payton Nicole MD, [facility]ERVIX [facility]ology Cervical or vaginal smear or scraping studyOrdered By: Iva Wakefield on 01-23-2024 [facility] Ambulatory Visit Summaryon 0 01-13-2024 Ambulatory Visit Summary Ambulatory Visit Summary ALMA DELIA PEARL :1985 Visit Date:01/13/2024 Ambulatory Visit Instructions Your Diagnosis [...] pain. Interventions: Continue with appointments at [facility]. Increase daily exercise Lose weight Take Medications as Prescribed Your Care Team Attending Physician - KYUNG PAUL PA-C Primary Care Physician - Irasema Love Referring Physician - NERY CARVER PA-C This Is Your Medications List Misc Prescription (Nebulizer Machine) Misc Prescription (Nebulizer Machine) Misc Prescription (Nebulizer Tubing and Mouthpiece Kit) Misc Prescription (Nebulizer and supplies) Misc Prescription (Test strips-True Metrix) Misc Prescription (lancets) Misc Prescription (na) albuterol (Albuterol (Eqv-ProAir HFA) 90 mcg/inh inhalation aerosol) albuterol (albuterol 0.083% Inh Padma 3 mL) ascorbic acid (Vitamin C) brexpiprazole (Rexulti 3 mg oral tablet) bupropion-dextromethorphan (Auvelity 45 mg-105 mg oral tablet, extended [...] to do next Scheduled Follow-Up Appointments Tuesday 8:00 AM EDT Where: [facility] [address] [place] [address] Johana, [place] [address]- Medications What How Much When Why Instructions [...] 1 Tablets By Mouth Every day Unchanged bupropion-dextromethorphan (Auvelity 45 mg-105 mg oral tablet, extended [...] attacks Nebul (more content not included)... Normal [facility] Urology Office/Clinic Noteon 01-13-2024 Urology Office/Clinic Note [...] No rashes or suspicious lesions Assessment/Plan saw [facility] many years ago and had urodynamics, [...] tried meds -will try PFPT again through [facility]. referral placed. -if insufficient improvement in sx w PFPT and cysto/UD, can consider oral meds. pt given list to check insurance coverage. Ordered: ciprofloxacin, See Instructions, 1 tab po day prior to cysto, 1 tab po following cysto, # 2 tab(s), Refills(s) 0, Pharmacy: [facility] #[id number], 175, cm, 01/13/24 10:23:00 EDT, Height/Length Dosing, 137, kg, 01/13/24 10:23:00 EDT, Weight Dosing E&M of New Patient Moderate 45-59 Min [address]254 [facility] Outpatient Physical Therapy Evaluate Patient, Develop a [...] cysto, # 2 tab(s), Refills(s) 0, Pharmacy: [facility] #[id number], 175, cm, 01/13/24 10:23:00 EDT, Height/Length Dosing, 137, kg, 01/13/24 10:23:00 EDT, Weight Dosing E&M of New Patient Moderate 45-59 Min 67586 Urology Procedure Order 3. OAB (overactive bladder) (N32.81: Overactive bladder) hx Chrons, follows w Dr Patel on multiple psych meds which can cause frequency/urgency (Buspar <1%, Lyrica 1-3%, Trazodone 1-10%) see #1 Ordered: ciprofloxacin, See Instructions, 1 tab po day prior to cysto, 1 tab po following cysto, # 2 tab(s), Refills(s) 0, Pharmacy: [facility] #[id number], 175, cm, 01/13/24 10:23:00 EDT, Height/Length Dosing, 137, kg, 01/13/24 10:23:00 EDT, Weight Dosing E&M of New Patient Moderate 45-59 Min [address]1227 [facility] Outpatient Physical Therapy Evaluate Patient, Develop a Plan of Care, & Implement Plan Urology Procedure Order 4. Diabetes (E11.9: Type 2 diabetes mellitus without complications) sees [facility] A1c 07/06/23 - 6.1 Ordered: ciprofloxacin, See Instructions, 1 tab po day prior to cysto, 1 tab po following cysto, # 2 tab(s), Refills(s) 0, Pharmacy: [facility] #[id number], 175, cm, 01/13/24 10:23:00 EDT, Height/Length Dosing, 137, kg, 01/13/24 10:23:00 EDT, Weight Dosing E&M of New Patient Moderate 45-59 Min 40787 5. DIETER (obstructive sleep apnea) (G47.33: Obstructive sleep apnea (adult) (pediatric)) compliant w CPAP Ordered: ciprofloxacin, See Instructions, 1 tab po day prior to cysto, 1 tab po following cysto, # 2 tab(s), Refills(s) 0, Pharmacy: [facility] #[id number], 175, cm, 01/13/24 10:23:00 EDT, Height/Length Dosing, 137, kg, 01/13/24 10:23:00 EDT, Weight Dosing E&M of New Patient Moderate 45-59 Min 42150 Orders: 55073 Measure Post Void residual urine and/or bladder capacity by (more content not included)... Normal [facility] Comment on above: Result Comment: Elec tronically Signed By: BEVERLY GUERRERO, KYUNG Wiggins\.br\Date and Time Signed: 01/13/24 11:12 EDT General Surgery Office/Clini c Noteon 01-05-2024 General Surgery Office/Clinic Note General Surgery Office/Clinic Note Chief Complaint Postop visit following excision of epidermal cyst at the breast HPI Staff Alma Delia is a 38 [...] follow-up visit, related to the original procedure 59031 Local infection of the skin and subcutaneous tissue, unspecified (L08.9: Local infection of the skin and subcutaneous tissue, unspecified) Portions of this record may have been created with voice recognition artificial intelligence software, specifically [employer]r, [employer] and or [employer]. Substitutions may have occurred due to the [...] (more content not included)... Normal [facility] Comment on above: Result Comment: Elec tronically Signed By: Mary KURTZ, Daron Johnson\.br\Date and Time Signed: 01/05/24 14:40 EDT Surgical Pathology Reporton 12-26-2023 Surgical Pathology Report [facility] [address] [place] [address]- Surgical Pathology Report Collected Date/Time: 12/21/2023 14:37 [...] is submitted entirely in cassette #2. (DC) DC:[facility] Microscopic Description Microscopic examination performed unless gross only specified. Normal [facility] Comment on above: Performed By: #### 4 [id number] #### [facility] [address] [place] [address] CHEMISTRYOrdered By: Monty TOUSSAINT User on 12-21-2023 Glucose [Mass/Vol] 95 mg/dL Normal 55 - 99 mg/dL [facility] POC Subsection Comment on above: Result Comment: Nita kacy Meter POC Device SN [id number] 1 Invalid Interpretation Code [facility] POC Subsection POC User ID [id number] 1 Invalid Interpretation Code [facility] POC Subsection POC Username JESSICA KUO Invalid Interpretation Code [facility] POC Subsection XR Chest 2 Viewson XR [...] Stan Clancy M.D. Transcribed by: ABBY Technologist: CC Technical Comments Radiation Dose: Ka,r in mGy = na DAP = na Normal [facility] BMPon 12-16-2023 Anion gap [Moles/Vol] 12 mmol/L Normal 6-16 Fis [facility] Comment on above: Performed By: #### 2 [id number] #### [facility] [address] [place] [address] Calcium [Mass/Vol] 8.9 mg/dL Normal 8.9-11.1 [facility] Comment on above: Performed By: #### 2 [id number] #### [facility] [address] [place] [address] Chloride [Moles/Vol] 107 mmol/L Normal 101-111 [facility] Comment on above: Performed By: #### 2 [id number] #### [facility] [address] [place] [address] CO2 [Moles/Vol] 25 mmol/L Normal 21-31 [facility] Comment on above: Performed By: #### 2 [id number] #### [facility] [address] [place] [address] Creatinine [Mass/Vol] 0.8 mg/dL Normal 0.5-1.3 [facility] Comment on above: Performed By: #### 2 [id number] #### [facility] [address] [place] [address] Glucose [Mass/Vol] 113 mg/dL Normal 55-199 [facility] Comment on above: Performed By: #### 2 [id number] #### [facility] [facility] [address] [place] [address] Potassium [Moles/Vol] 3.5 mmol/L Normal 3.5-5.3 [facility] Comment on above: Performed By: #### 2 [id number] #### [facility] [address] [place] [address] Sodium [Moles/Vol] 140 mmol/L Normal 135-145 [facility] Comment on above: Performed By: #### 2 303632 #### [facility] [address] [place] [address] Urea nitrogen [Mass/Vol] 9 mg/dL Normal 5-21 [facility] Comment on above: Performed By: #### 2 [id number] #### [facility] [address] [place] [address] Urea nitrogen/Creatinine [Mass ratio] 11 No Units Normal 10-20 [facility] Comment on above: Performed By: #### 2 296169 #### [facility] [address] [place] [address] CBC w/ Auto Diffon 4 Basophils/100 WBC (Bld) 0.2 % Normal 0.0-2.0 [facility] Comment on above: Performed By: #### 2 444204 #### [facility] [address] [place] [address] Basophils/Leukocytes Auto (Bld) [Pure # fraction] 0.0 E9/L Normal 0.0-0.2 [facility] Comment on above: Performed By: #### 2 485808 #### [facility] [address] [place] [address] Eosinophils (Bld) [#/Vol] 0.1 E9/L Normal 0.0-0.5 [facility] Comment on above: Performed By: #### 2 973258 #### [facility] [address] [place] [address] Eosinophils/100 WBC (Bld) 1.6 % Normal 0.0-8.0 [facility] Comment on above: Performed By: #### 2 587304 #### [facility] [address] [place] [address] Erythrocyte distribution width (RBC) [Ratio] 14.5 % High 10.9-14.2 [facility] Comment on above: Performed By: #### 2 284055 #### [facility] [address] [place] [address] Hematocrit (Bld) [Volume fraction] 33.2 % Low 34.0-46.0 [facility] Comment on above: Performed By: #### 2 778978 #### [facility] [address] [place] [address] Hemoglobin (Bld) [Mass/Vol] 11.5 g/dL Low 12.0-16.0 [facility] Comment on above: Performed By: #### 2 213030 #### [facility] [address] [place] [address] Lymphocytes (Bld) [#/Vol] 2.6 E9/L Normal 1.0-4.0 [facility] Comment on above: Performed By: #### 2 764748 #### [facility] [address] [place] [address] Lymphocytes/100 WBC (Bld) 32.1 % Normal 14.0-50.0 [facility] Comment on above: Performed By: #### 2 362257 #### [facility] [address] [place] [address] MCH (RBC) [Entitic mass] 28.6 pg Normal 27.0-34.0 [facility] Comment on above: Performed By: #### 2 282194 #### [facility] [address] [place] [address] MCHC (RBC) [Mass/Vol] 34.6 g/dL Normal 31.4-36.0 [facility] Comment on above: Performed By: #### 2 976369 #### [facility] [address] [place] [address] MCV (RBC) [Entitic vol] 82.7 fL Normal 80.0-100.0 [facility] Comment on above: Performed By: #### 2 753974 #### [facility] [address] [place] [address] Monocytes (Bld) [#/Vol] 0.5 E9/L Normal 0.2-1.0 [facility] Comment on above: Performed By: #### 2 487171 #### [facility] [address] [place] [address] Neutrophils (Bld) [#/Vol] 4.8 E9/L Normal 2.0-7.5 [facility] Comment on above: Performed By: #### 2 743361 #### [facility] [address] [place] [address] Neutrophils/100 WBC (Bld) 60.0 % Normal 36.0-75.0 [facility] Comment on above: Performed By: #### 2 299043 #### [facility] [address] [place] [address] Platelet 246.0 E9/L Normal 150.0-500. 0 [facility] Comment on above: Performed By: #### 2 073502 #### [facility] [address] [place] [address] Platelet mean volume (Bld) [Entitic vol] 8.5 fL Normal 6.4-10.8 [facility] Comment on above: Performed By: #### 2 016342 #### [facility] [address] [place] [address] RBC (Bld) [#/Vol] 4.0 E12/L Low 4.3-5.9 [facility] Comment on above: Performed By: #### 2 780770 #### [facility] [address] [place] [address] WBC corrected for nucl RBC Auto (Bld) [#/Vol] 8.0 E9/L Normal 4.0-11.0 [facility] Comment on above: Performed By: #### 2 154638 #### [facility] [address] [place] [address] CHEMISTRYOrdered By: SYSTEM SYSTEM on 12-16-2023 Anion gap [Moles/Vol] 12 mmol/L Normal 6 - 16 mEq/L Remisol Chem Calcium [Mass/Vol] 8.9 mg/dL Normal 8.9 - 11. 1 mg/dL Remisol Chem Chloride [Moles/Vol] 107 mmol/L Normal 101 - 1 11 mmol/L Remisol Chem CO2 [Moles/Vol] 25 mmol/L Normal 21 - 31 mmol/L Remisol Chem Creatinine [Mass/Vol] 0.8 mg/dL Normal 0.5 - 1.3 mg/dL Remisol Chem eGFR 96 mL/min/1.73 m2 Normal >=59mL/min /1.73 m2 Remisol Chem Glucose [Mass/Vol] 113 mg/dL [...] 12-16-2023 HCG.beta subunit (U) [Moles/Vol] Negative Normal [facility] Man Sero U BetaHcg Qualon 12-16-2023 HCG.beta subunit (U) [Moles/Vol] Negative Normal [facility] Comment on above: Performed By: #### 2 [id number] #### [facility] [address] [place] [address] eGFRon 12-16-2023 eGFR 96 mL/min/1.73 m2 Normal >=59 [facility] Comment on above: Order Comment: Order added by Discern Expert. Performed By: #### 1 [id number] #### [facility] [address] [place] [address] General Surgery Office/Clini c Noteon 12-13-2023 General Surgery Office/Clinic Note General Surgery Office/Clinic Note Chief Complaint 1 week follow up HPI Staff Alma Delia is a 38 y.o. female here for 1 week follow up Patient presented to with breast abscess that had been I/D in the patient's [employer] office the prior. Antibiotics initiated Today the patient states she is healing well. Last day of antibiotics will be today. History of Present Illness Consent: The patient or their guardian verbally consented to allow [employer] [facility] e[employer]ience to record this visit. Alma Delia Pearl is a 38-year-old female who underwent I and D of infected epidermal cyst overlying the left breast by her [employer]. She is being seen by us for [...] with voice recognition artificial intelligence software, specifically makr, Cliptone and or [employer]. Substitutions may have occurred due to the inherent limitations of voice recognition and artificial intelligence software. ATTESTATION: Documentation services were performed after patient or guardian consented to allow [employer] to record this visit. RAUL web application dev specialist and provider reviewed before signing. RAUL: [...] (more content not included)... Normal [facility] Comment on above: Result Comment: Elec tronically Signed By: Daron Hernandez MD\.br\Date and Time Signed: 12/13/23 08:54 EDT\.br\Electronically Co-Signed By: Flori Bradford.br\Date and Time Co-Signed: 12/09/23 12:37 EDT Ambulatory [...] pain. Interventions: Continue with appointments at [facility]. Increase daily exercise Lose weight Take Medications as Prescribed Your Care Team Attending Physician - Mary KURTZ, Daron Johnson Primary Care Physician - Rell FERRER, Irasema [...] tablet) buPROPion (buPROPion 100 mg ER Tab) bupropion-dextromethorphan (Auvelity 45 mg-105 mg oral tablet, extended [...] mg Supp) promethazine (Phenergan 25 mg Supp) sulfamethoxazole-trimethopr im (Bactrim D.S. 800 mg-160 mg Tab) tirzepatide [...] Appointments Tuesday 10:30 AM EDT With: Where: [facility] Tuesday 2:00 PM EDT With: Where: [facility] Tuesday 10:00 AM EDT With: KYUNG PAUL PA-C Where: [facility] [address], [address] [place] [address]- Tuesday 8:00 AM EDT With: Where: [facility] [address], [place] [address]- Medications What How Much When Why Instructions [...] 100 mg ER Tab) 1 Unknown Unchanged bupropion-dextromethorphan (Auvelity 45 mg-105 mg oral tablet, extended [...] (more content not included)... Normal [facility] General Surgery Office/Clini c Noteon 12-05-2023 General Surgery Office/Clinic Note General Surgery Office/Clinic Note Chief Complaint BANQUET STEWARD Breast abscess HPI Staff Alma Delia is a 38 y.o. female here for breast abscess Patient presented to [facility] ER on 11/29/23 with L breast abscess Currently taking Keflex and Bactrim and Flagyl (for BV) Today she states she has drainage. She saw [employer] yesterday and I/D'd in office History of Present Illness Consent: The patient or their guardian verbally consented to allow [employer] to record this visit. Alma Delia Pearl is a 38-year-old female who was referred to us for left breast abscess status post I & D by [employer] on 12/01/2023. The patient has been faring [...] with voice recognition artificial intelligence software, specifically makr, Cliptone and or [employer]. Substitutions may have occurred due to the inherent limitations of voice recognition and artificial intelligence software. ATTESTATION: Documentation services were performed after patient or guardian consented to allow [employer] to record this visit. RAUL web application dev specialist and provider reviewed before signing. RAUL: [...] (more content not included)... Normal [facility] Comment on above: Result Comment: Elec tronically Signed By: Mary KURTZ, Daron Johnson\.br\Date and Time Signed: 12/05/23 09:39 EDT\.br\Electronically Co-Signed By: Manda Walker.carlota\Date and Time Co-Signed: 12/02/23 11:29 EDT ED Clinical Summaryon 2023 ED Clinical Summary ED Clinical Summary [place] [id number] ED Clinical Summary Person Information Name: ALMA DELIA PEARL [place] Age: 38 Years : 1985 Sex: Female Language: Nigerian PCP: Irasema Love Marital Status: Phone: [phone] MRN: Visit Id: Visit Reason: Breast problem; [...] 11/29/2023 20:59:57 11/29/2023 20:59:57 11/29/2023 20:59:57 ADDRESS: [address] [id number] PHYS DOC NOTES: MEDICAL INFORMATION: Prescriptions Given: New Medications [id number], [address] [place], [place] [id number], [phone] cephalexin (Keflex 500 mg Cap) 1 Capsules By Mouth 3 times a day for 10 Days. Refills: 0. naproxen (Naprosyn 500 mg Tab) 1 Tablets By Mouth 2 times a day as needed for pain. Refills: 0. sulfamethoxazole-trimethopr im (Bactrim D.S. 800 mg-160 mg Tab) 1 Tablets By Mouth 2 times a day. Refills: 0. Medications to Continue with No Changes Other Medications acetaminophen-hydrocodone (Bellefontaine 325 mg-5 mg oral tablet) 1 Tablets [...] 0. PATIENT EDUCATION INFORMATION: Instructions: Cellulitis, Adult, Jxsv-gk-Gemo Follow up: With: Address: When: Irasema Zacarias [address] [place] [address] [place] [phone] [facility] (1) In 3 days 12/02/2023 Comments: Stop [...] Cellulitis of left breast Normal [facility] ED Note-Physicianon 11-29-19 ED Note-Physician ED Note-Physician [...] and Complexity of Problems Differential Diagnosis: [] [facility] Data External documents reviewed: [] My EKG [...] day(s), # 30 cap(s), Refills(s) 0, Pharmacy: [facility] #[id number], 175, cm, 11/29/23 20:31:00 EDT, Height/Length Dosing, [...] pain, # 20 tab(s), Refills(s) 0, Pharmacy: [facility] #[id number], 175, cm, 11/29/23 20:31:00 EDT, Height/Length Dosing, 139, kg, 11/29/23 20:31:00 EDT, Weight Dosing sulfamethoxazole-trimethopr im, 1 tab(s), Oral, BID, 20 tab(s), Refill(s) 0, [facility] #[id number], 175, cm, 11/29/23 20:31:00 EDT, Height/Length Dosing, 139, kg, 11/29/23 20:31:00 EDT, Weight Dosing sulfamethoxazole-trimethopr im, 1 tab(s), Tab, Oral, Once, Stop date 11/29/23 20:39:00 EDT, STAT, Start date 11/29/23 20:39:00 EDT Disposition Plan Discharge Prescription List Prescriptions Bactrim D.S. 800 mg-160 mg Tab, 1 tab(s), Oral, BID Keflex 500 mg Cap, 500 mg= 1 cap(s), Oral, TID Naprosyn 500 mg Tab, 500 mg= 1 tab(s), Oral, BID, PRN Follow-up With When Contact Information Irasema Zacarias In 3 days 12/02/2023 EDT [address], [place] [address] Business (1) Additional Instructions: Stop the clindamycin and start the Bactrim and Keflex. He can use naproxen every 12 hours as needed for pain in addition to pain medicine impression prescribed last night. Please follow-up with your primary care doctor for further evaluation management. Please return to the ED for any new or worsening symptoms. 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 Normal [facility] Comment on above: Result Comment: Elec tronically Signed By: Celena Dias DO\.br\Date and Time Signed: 11/29/23 20:44 EDT ED Note-Physician ED Note-Physician Basic Information Time Seen: Archie GUERRERO, Luis Marrero. 11/28/2023 19:34 Chief Complaint Redness and swelling [...] and Complexity of Problems Differential Diagnosis: [] [facility] Data External documents reviewed: [] My EKG [...] Abscess of the breast and nipple) Orders: acetaminophen-hydrocodone, 1 EA, Tab, Oral, Once, Stop date 11/28/23 20:34:00 EDT, STAT, Start date 11/28/23 20:34:00 EDT acetaminophen-hydrocodone, 1 tab(s), Oral, q6hr for pain for 2 day(s), 8 tab(s), Refill(s) 0, [facility] #[id number], 175, cm, 11/28/23 19:12:00 EDT, Height/Length Dosing, 139, kg, 11/28/23 19:12:00 EDT, Weight Dosing clindamycin, 300 mg = 1 cap(s), Oral, q6hr, X 7 day(s), # 28 cap(s), Refills(s) 0, Pharmacy: [facility] #[id number], 175, cm, 11/28/23 19:12:00 EDT, Height/Length Dosing, 139, kg, 11/28/23 19:12:00 EDT, Weight Dosing clindamycin, 300 mg = 2 cap(s), Cap, Oral, Once, Stop date 11/28/23 20:34:00 EDT, STAT, Start date 11/28/23 20:34:00 EDT, 11/28/23 20:34:00 EDT Medications Administered Given clindamycin 150 mg Cap, 300 mg, Oral TO GO acetaminophen-hydrocodone 325 mg - 5 mg, 1 EA, Oral Disposition Plan Patient Discharge Condition Stable Discharge Disposition To home Discharge Prescription List Prescriptions clindamycin 300 mg oral cap, 300 mg= 1 cap(s), Oral, q6hr Bellefontaine 325 mg-5 mg oral tablet, 1 tab(s), Oral, q6hr, PRN Follow-up With When Contact Information Daron Hernandez In 3 days 12/01/2023 EDT Additional Instructions: Call Dr for diagnosis based follow up [facility] In (more content not included)... Normal [facility] Comment on above: Result Comment: Elec tronically Signed By: Luis Almanza PA-C\.br\Date and Time Signed: 11/29/23 00:34 EDT\.br\Electronically Co-Signed By: Celena Dias DO\.br\Date and Time Co-Signed: 11/29/23 01:44 EDT ED Patient Summaryon 024 ED Patient Summary ED Patient Summary [address] [address] Patient Discharge Instructions Person Information Name: ALMA DELIA PEARL Age: 38 Years Arrival Date: 11/29/2023 20:00:57 Discharge Diagnosis: Cellulitis of left breast Primary Care Physician: Irasema Love Provider Information Primary Provider: Celena Dias DO Advanced Manager Medical Affairs:None The exam and treatment you received in the Emergency Department were for an urgent problem and are not intended as complete care. It is important that you follow up with a doctor, nurse practitioner, or physician?s clinical medical assistant for ongoing care. If your symptoms [...] Instructions: With: Address: When: Irasema Zacarias [address], [address] [place] [phone] Business (1) In 3 days 12/02/2023 Comments: [...] participating provider. Patient Education Materials: Cellulitis, Adult, Dnzm-cj-Lsia A MESSAGE TO ALL PATIENTS REGARDING OPIOIDS PRESCRIPTION OPIOIDS: WHAT YOU NEED TO KNOW Prescription opioids can be used to help relieve jkfizorx-pq-rxyzmc pain and are often prescribed following a [...] (more content not included)... Normal [facility] ED Clinical Summaryon 2023 ED Clinical Summary ED Clinical Summary [address] [address] ED Clinical Summary Person Information Name: ALMA DELIA PEARL Param/[facility] Age: 38 Years : 1985 Sex: Female Language: Nigerian PCP: Irasema Love Marital Status: Phone: [phone] MRN: Visit Id: Visit Reason: Breast problem; [...] 11/28/2023 21:00:35 11/28/2023 21:00:35 11/28/2023 21:00:35 ADDRESS: [address] [place] [phone] PHYS DOC NOTES: MEDICAL INFORMATION: Prescriptions Given: New Medications [id number], [address] [place], [place] [id number], [phone] acetaminophen-hydrocodone (B[place]fontaine 325 mg-5 mg oral tablet) 1 Tablets [...] (buPROPion 100 mg ER Tab) 1 Unknown. bupropion-dextromethorphan (Auvelity 45 mg-105 mg oral tablet, extended [...] (more content not included)... Normal [facility] ED Patient Summaryon 024 ED Patient Summary ED Patient Summary [address] [address] Patient Discharge Instructions Person Information Name: ALMA DELIA PEARL Age: 38 Years Arrival Date: 11/28/2023 19:04:11 Discharge Diagnosis: Breast abscess Primary Care Physician: Irasema Love Provider Information Primary Provider: Celena Dias DO Advanced Manager Medical Affairs:None The exam and treatment you received in the Emergency Department were for an urgent problem and are not intended as complete care. It is important that you follow up with a doctor, nurse practitioner, or physician?s clinical medical assistant for ongoing care. If your symptoms [...] Hernandez In 3 days 12/01/2023 Comments: Call for diagnosis based follow up With: Address: When: [facility] [address] [place] [address], [facility] [address], [place] [phone] [facility] (1) In 3 days 12/01/2023 Comments: Call Dr for diagnosis based follow up With: Address: When: Irasema Zacarias [address], [address] [place] [phone] [facility] (1) In 3 days 12/01/2023 Comments: Call Dr for diagnosis based follow up In the event that this physician does not participate in your insurance network, please consult with your insurance company to find a nearby participating provider. Patient Education Materials: Skin Abscess; Cellulitis, Adult, Ehdz-tj-Nffp A MESSAGE TO ALL PATIENTS REGARDING OPIOIDS PRESCRIPTION OPIOIDS: WHAT YOU NEED TO KNOW Prescription opioids can be used to help relieve yaqwpekj-oc-njfopq pain and are often prescribed following a [...] (more content not included)... Normal [facility] BLOOD BANKOrdered By: Clarence Swift on 07-25-2023 ABO/Rh Interp Positive Invalid Interpretation Code [facility] BB Subsection CHEMISTRYOrdered By: SYSTEM SYSTEM on 07-25-2023 Albumin [Mass/Vol] 4.5 g/dL Normal 3.3 - 5.0 gm/dL Remisol Chem Albumin/Globulin [Mass ratio] 1.7 {ratio} Normal 1.1 - 2.2 Remisol Chem ALP [Catalytic activity/Vol] 60 [iU]/d Normal 21 - 98 Int._Unit/ L Remisol Chem ALT No additional P-5'-P [Catalytic activity/Vol] 14 [iU]/d Normal 6 - 46 Int._Unit/ L Remisol Chem Anion gap [Moles/Vol] 13 mmol/L Normal 6 - 16 mEq/L Remisol Chem AST [Catalytic activity/Vol] 12 [iU]/d Normal 5 - 43 Int._Unit/ L Remisol Chem Bilirubin [Mass/Vol] 0.2 mg/dL Normal [...] Chem eGFR 84 mL/min/1.73 m2 Normal >=59mL/min /1.73 m2 Remisol Chem Globulin (S) [Mass/Vol] 2.7 [...] Remisol Chem HEMATOLOGYOrdered By: SYSTEM SYSTEM on 07-25-2023 Basophils/100 [...] Remisol Heme SEROLOGYOrdered By: France Martinez on 07-25-2023 Beta HCG ( test) Ql Negative (07/25/23 7:12 PM) Normal [facility] Man Sero 25(OH)D3 [facility] 25-hydroxyvitamin D3 [Mass/Vol] 20.6 ng/mL Low 31.0-80.0 [facility] Comment on above: Order Comment: Speci men Type: BLOOD SPECIMEN Ordering Facility: [facility] Address: [address] [place] [id number] Performed By: #### 1 989-3 #### [facility] CLIA [id number] [address] [address] [id number] [address] [facility] Comprehensive metabolic 2000 panelon 07-06-2023 Albumin [Mass/Vol] 4.6 g/dL Normal 3.9-4.9 [facility] Comment on above: Order Comment: Speci men Type: BLOOD SPECIMEN Ordering Facility: [facility] Address: [address] [place] [address] Performed By: #### 2 4323-8 #### [facility] CLIA [id number] [address] [place] [address] ALP [Catalytic activity/Vol] 70 U/L Normal 34-123 [facility] Comment on above: Order Comment: Speci men Type: BLOOD SPECIMEN Ordering Facility: [facility] Address: [address] [place] [address] Performed By: #### 2 4323-8 #### [facility] CLIA [id number] [address] [place] [address] ALT [Catalytic activity/Vol] 15 U/L Normal 7-38 [facility] Comment on above: Order Comment: Speci men Type: BLOOD SPECIMEN Ordering Facility: [facility] Address: [address] [place] [address] Performed By: #### 2 4323-8 #### [facility] CLIA [id number] [address] [place] [address] Anion gap [Moles/Vol] 12 mmol/L Normal 9-18 [facility] Comment on above: Order Comment: Speci men Type: BLOOD SPECIMEN Ordering Facility: [facility] Address: [address] [place] [address] Performed By: #### 2 4323-8 #### [facility] CLIA [id number] [address] [place] [address] AST [Catalytic activity/Vol] 14 U/L Normal 13-35 [facility] Comment on above: Order Comment: Speci men Type: BLOOD SPECIMEN Ordering Facility: [facility] Address: [address] [place], [place] [address] Performed By: #### 2 4323-8 #### [facility] CLIA [id number] [address] [place] [address] Bilirubin [Mass/Vol] 0.3 mg/dL Normal 0.2-1.3 [facility] Comment on above: Order Comment: Speci men Type: BLOOD SPECIMEN Ordering Facility: [facility] Address: [address] [place] [address] Performed By: #### 2 4323-8 #### [facility] CLIA [id number] [address] [place] [address]00 Calcium [Mass/Vol] 10.0 mg/dL Normal 8.5-10.2 [facility] Comment on above: Order Comment: Speci men Type: BLOOD SPECIMEN Ordering Facility: [facility] Address: [address] [place] [address] Performed By: #### 2 4323-8 #### [facility] CLIA [id number] [address] [place] [address] 58116 Chloride [Moles/Vol] 106 mmol/L High 97-105 [facility] Comment on above: Order Comment: Speci men Type: BLOOD SPECIMEN Ordering Facility: [facility] Address: [address] [place] [address] Performed By: #### 2 4323-8 #### [facility] CLIA [id number] [address] [place] [address] 22030 CO2 [Moles/Vol] 24 mmol/L Normal 22-30 [facility] Comment on above: Order Comment: Speci men Type: BLOOD SPECIMEN Ordering Facility: [facility] Address: [address] [place] [address] Performed By: #### 2 4323-8 #### [facility] CLIA [id number] [address] [place] [address] Creatinine [Mass/Vol] 0.90 mg/dL Normal 0.58-0.96 [facility] Comment on above: Order Comment: Dale lyle Type: BLOOD SPECIMEN Ordering Facility: [facility] Address: [address] [place] [address] Performed By: #### 2 4323-8 #### [facility] CLIA [id number] [address] [place] [address] Creatinine and Glomerular filtration rate.predicted panel (S/P/Bld) 84 mL/min/1.73m??? Normal >=60 [facility] Comment on above: Order Comment: Dale lyle Type: BLOOD SPECIMEN Ordering Facility: [facility] Address: [address] [place] [address] Result Comment: Norma mated Glomerular Filtration Rate [...] GFR. Performed By: #### 2 4323-8 #### [facility] CLIA [id number] [address] [place] [address] 87977 Glucose [Mass/Vol] 118 mg/dL High 74-99 [facility] Comment on above: Order Comment: Dale lyle Type: BLOOD SPECIMEN Ordering Facility: [facility] Address: [address] [place], [place] [address] Result Comment: The [place] Diabetes Association (ADA) provides guidance for cutoff [...] Standards of Medical Care in Diabetes 2016, [place] Diabetes Association. Diabetes Care. 2016.39(Suppl 1). Performed By: #### 2 4323-8 #### [facility] CLIA [id number] [address] [place] [address] Potassium [Moles/Vol] 4.2 mmol/L Normal 3.7-5.1 [facility] Comment on above: Order Comment: Speci men Type: BLOOD SPECIMEN Ordering Facility: [facility] Address: [address] [place] [id number] Performed By: #### 2 4323-8 #### [facility] CLIA [id number] [address] [place] [address] 05649 Protein [Mass/Vol] 7.5 g/dL Normal 6.3-8.0 [facility] Comment on above: Order Comment: Speci men Type: BLOOD SPECIMEN Ordering Facility: [facility] Address: [address] [place] [place] [id number] Performed By: #### 2 4323-8 #### [facility] CLIA [id number] [address] [place] [address] 94787 Sodium [Moles/Vol] 142 mmol/L Normal 136-144 [facility] Comment on above: Order Comment: Speci men Type: BLOOD SPECIMEN Ordering Facility: [facility] Address: [address] [place] [address] Performed By: #### 2 4323-8 #### [facility] CLIA [id number] [address] [place] [address] 09966 Urea nitrogen [Mass/Vol] 14 mg/dL Normal 7-21 [facility] Comment on above: Order Comment: Speci men Type: BLOOD SPECIMEN Ordering Facility: [facility] Address: [address] [place] [address] Performed By: #### 2 4323-8 #### [facility] CLIA [id number] [address] [place] [address]0193 Cortis p Dex SerPl-mCncon Cortisol post dose dexamethasone [Mass/Vol] 0.5 ug/dL Normal <1.8 [facility] Comment on above: Order Comment: Dale lyle Type: BLOOD SPECIMEN Ordering Facility: [facility] Address: [address] [place] [address] Result Comment: Afte r overnight 1 mg dexamethasone, an physical metallurgist cortisol of <1.8 ug/dL may indicate an adequate cortisol suppression. This result should be interpreted within the clinical context and other test results. Maggy et al. Evidence for the Low Dose Dexamethasone Suppression Test to Screen for Baldwin's Syndrome - Recommendations for a Protocol for Biochemistry Laboratories. 1997 Kristi. Clin. Biochem. 34 222-229. Performed By: #### 2 4331-1 #### [facility] CLIA [id number] [address] [place] [address] LAB CLIA [id number] [address] [place] [address] 13694 #### 39820-7 #### [facility] CLIA [id number] [address] [place] [address] DEXAMETHASONEon 07-06-2023 DEXAMETHASONE 299.5 ng/dL Normal [facility] Comment on above: Order Comment: Dale lyle Type: BLOOD SPECIMEN Ordering Facility: [facility] Address: [address] [place] [address] Result Comment: INTE RPRETIVE INFORMATION: Dexamethasone, Serum [...] developed and its performance characteristics determined by [facility]. It has not been cleared or approved by the US Food and Drug Administration. This test was performed in a CLIA certified laboratory and is intended for clinical purposes. Performed By: [facility] [address] [place] [address] Sheet Metal Mechanic: Dean Gill MD, PhD CLIA Number: [id number] Performed By: #### D ÁLVARO #### [facility] [id number] [address] [place] [address] HbA1c (Bld)on 07-06-2023 Average glucose Estimated from glycated hemoglobin (Bld) [Mass/Vol] 128 mg/dL Normal [facility] Comment on above: Order Comment: Dale lyle Type: BLOOD SPECIMEN Ordering Facility: [facility] Address: [address] [place] [address] Result Comment: eAG: (Estimated average glucose) is a calculated value from HgbA1c and is patient relations representative of the average blood glucose level in the last 2-3 month period. Performed By: #### 5 5454-3 #### [facility] CLIA [id number] [address] [place] [address] [place] HbA1c (Bld) [Mass fraction] 6.1 % High 4.3-5.6 [facility] Comment on above: Order Comment: Dale lyle Type: BLOOD SPECIMEN Ordering Facility: [facility] Address: [address] [place] [address] Result Comment: Amer [place] Diabetes Association guidelines indicate that patients with HgbA1c in the range 5.7-6.4% are at increased risk for development of diabetes, and intervention by lifestyle modification may be beneficial. HgbA1c greater or equal to 6.5% is considered diagnostic of diabetes. Performed By: #### 5 5454-3 #### [facility] CLIA [id number] [address] [place] [address] [place] Lipid 1996 panelon 4 Cholesterol [Mass/Vol] 240 mg/dL High <200 [facility] Comment on above: Order Comment: Dale lyle Type: BLOOD SPECIMEN Ordering Facility: [facility] Address: [address] [place] [address] Result Comment: <200 mg/dL, Desirable 200-239 mg/dL, Borderline high >239 mg/dL, High Performed By: #### 2 4331-1 #### [facility] CLIA [id number] [facility] CLIA [id number] [address] [place] [address] 35231 #### 30412-9 #### [facility] CLIA [id number] [address] [place] [address] [facility] Cholesterol in HDL [Mass/Vol] 45 mg/dL Normal >39 [facility] Comment on above: Order Comment: Speci men Type: BLOOD SPECIMEN Ordering Facility: [facility] Address: [address] [place] [address] Result Comment: 40-5 9 mg/dL, Acceptable >59 mg/dL, High: Negative risk factor for coronary heart disease <40 mg/dL, Low: Positive risk factor for coronary heart disease Performed By: #### 2 4331-1 #### [facility] CLIA [id number] [address] [place] [address] OF [facility] CLIA [id number] [address] [place] [address] 98635 #### 06817-6 #### [facility] CLIA [id number] [address] [place] [address] [place] Cholesterol in LDL [Mass/Vol] 155 mg/dL High <100 [facility] Comment on above: Order Comment: Speci men Type: BLOOD SPECIMEN Ordering Facility: [facility] Address: [address] [place] [address] Result Comment: <100 mg/dL, Optimal 100-129 mg/dL, Near optimal/above optimal 130-159 mg/dL, Borderline high 160-189 mg/dL, High >189 mg/dL, Very high Secondary prevention optimal LDL Cholesterol levels are recommended to be < 70 mg/dL Performed By: #### 2 4331-1 #### [facility] CLIA [id number] [address] [place] [address] OF [facility] CLIA [id number] [address] [place] [address] #### 82050-0 #### [facility] CLIA [id number] [address] [place] [address] [place] Cholesterol in LDL/Cholesterol in HDL [Mass ratio] 3.44 {ratio} High <2.54 [facility] Comment on above: Order Comment: Speci men Type: BLOOD SPECIMEN Ordering Facility: [facility] Address: [address] [place] [address] Result Comment: Duyen brown: 1. National Cholesterol Education Program ATP III Guideline At-A-Glance Quick Desk Reference: National Heart, Lung, and Blood [place]. National Institutes of Health. 2001: NIH Publication No. 01-3305. 2. An International Atherosclerosis Society position paper: global recommendations for the management of dyslipidemia: executive summary, Atherosclerosis. 2014: 232(2):410-413. Performed By: #### 2 4331-1 #### [facility] CLIA [id number] [address] [place] [address] [place] [facility] CLIA [id number] [address] [place] [address] #### 63389-1 #### [facility] CLIA [id number] [address] [place] [address] [place] Cholesterol in VLDL [Mass/Vol] 40 mg/dL High <30 [facility] Comment on above: Order Comment: Speci men Type: BLOOD SPECIMEN Ordering Facility: [facility] Address: [address] [place] [address] Performed By: #### 2 4331-1 #### [facility] CLIA [id number] [address] [place] [address] [place] [facility] CLIA [id number] [address] [place] [address] #### 36325-6 #### [facility] CLIA [id number] [address] [place] [address] [place] Cholesterol non HDL [Mass/Vol] 195 mg/dL High <130 [facility] Comment on above: Order Comment: Speci men Type: BLOOD SPECIMEN Ordering Facility: [facility] Address: [address] [place] [address] Result Comment: <130 mg/dL, Optimal 130-159 mg/dL, Near optimal/above optimal 160-189 mg/dL, Borderline high 190-219 mg/dL, High >219 mg/dL, Very high Secondary prevention optimal non HDL Cholesterol levels are recommended to be <100 mg/dL Performed By: #### 2 4331-1 #### [facility] CLIA [id number] [address] [place] [address] [place] [facility] CLIA [id number] [address] [place] [address] #### 01472-2 #### [facility] CLIA [id number] [address] [place] [address] [place] Cholesterol.total/Chol esterol in HDL [Mass ratio] 5.33 {ratio} High <5.10 [facility] Comment on above: Order Comment: Speci men Type: BLOOD SPECIMEN Ordering Facility: [facility] Address: [address] [place] [address] Performed By: #### 2 4331-1 #### [facility] CLIA [id number] [address] [place] [address] [place] [facility] CLIA [id number] [address] [place] [address] #### 87422-0 #### [facility] CLIA [id number] [address] [place] [address] [place] FASTING TIME 12 hrs Normal [facility] Comment on above: Order Comment: Speci men Type: BLOOD SPECIMEN Ordering Facility: [facility] Address: [address] [place] [address] Performed By: #### 2 4331-1 #### [facility] CLIA [id number] [address] [place] [address] LAB CLIA [id number] [address] [place] [address] #### 39606-2 #### [facility] CLIA [id number] [address] [place] [address] [place] Triglyceride [Mass/Vol] 199 mg/dL High <150 [facility] Comment on above: Order Comment: Speci men Type: BLOOD SPECIMEN Ordering Facility: [facility] Address: [address] [place] [address] Result Comment: <150 mg/dL, Normal 150-199 mg/dL, Borderline high 200-499 mg/dL, High >499 mg/dL, Very high Performed By: #### 2 4331-1 #### [facility] CLIA [id number] [address] [place] [address] STATES OF [facility] CLIA [id number] [address] [place] [address] #### 30431-5 #### [facility] CLIA [id number] [address] [place] [address] [place] CHEMISTRYOrdered By: SYSTEM SYSTEM on 05-20-2023 U Microalb microgram/mL Normal 0.0 - 19.0 mcg/mL Remisol Chem CHEMISTRYOrdered By: SYSTEM SYSTEM on 04-06-2023 Albumin [Mass/Vol] 3.9 g/dL Normal 3.3 - 5.0 gm/dL [facility] Remisol Albumin/Globulin [Mass ratio] 1.2 {ratio} Normal 1.1 - 2.2 [facility] Remisol ALP [Catalytic activity/Vol] 51 [iU]/d Normal 21 - 98 Int._Unit/ L [facility] Remisol ALT No additional P-5'-P [Catalytic activity/Vol] 22 [iU]/d Normal 6 - 46 Int._Unit/ L [facility] Remisol Anion gap [Moles/Vol] 12 mmol/L Normal 6 - 16 mEq/L [facility] Remisol AST [Catalytic activity/Vol] 19 [iU]/d Normal 5 - 43 Int._Unit/ L [facility] Remisol Bilirubin [Mass/Vol] 0.4 mg/dL Normal [...] mg/dL [facility] Remisol GFR/1.73 sq M.predicted among non-blacks MDRD (S/P/Bld) [Vol rate/Area] 84 mL/min/1.73 m2 Normal >=59mL/min /1.73 m2 [facility] Chem S Comment on above: Interpretive Data: C hronic kidney disease could be indicated at eGFR's of less than 60 mL/min/1.73m2. Kidney failure is indicated at less than 15 mL/min/1.73m2. Globulin (S) [Mass/Vol] 3.4 g/dL Normal 1.4 - 4.0 gm/dL [facility] Remisol Glucose [Mass/Vol] 126 mg/dL Normal 55 - 199 mg/dL [facility] Remisol Comment on above: Interpretive Data: I f this glucose result represents a fasting glucose, interpretation should refer to the following reference range: 55-99 mg/dL Lipase [Catalytic activity/Vol] 31 U/L Normal 13 - 58 unit/L [facility] Remisol Potassium [Moles/Vol] 3.9 mmol/L Normal 3.5 - 5.3 mmol/L [facility] Rem[facility] Protein [Mass/Vol] 7.3 g/dL Normal 6.0 - 7.8 gm/dL [facility] Sodium [Moles/Vol] 138 mmol/L Normal 135 - 145 mmol/L [facility] Rem[facility] Urea nitrogen [Mass/Vol] 13 mg/dL Normal 5 - 21 mg/dL [facility] Remisol Urea nitrogen/Creatinine [Mass ratio] 14 mg/mg [...] [facility]eAutoSS Platelets (Bld) [#/Vol] 205.0 E9/L Normal 150.0 - 500.0 E9/L [facility]eAutoSS RBC (Bld) [...] [#/Area] 3-4 /HPF Normal 0-2/HPF [facility] UA Auto SS Glucose Test strip (U) [Mass/Vol] Negative (04/06/23 3:19 PM) Normal Negative [facility] UA Auto SS Hemoglobin Ql (U) 3+ *ABN* (04/06/23 3:19 PM) Invalid Interpretation Code Negative [facility] UA Auto SS Ketones (U) [Mass/Vol] Trace *NA* (04/06/23 3:19 PM) Invalid Interpretation Code Negative [facility] UA Auto SS Lisco.plasma/Lisco .RBC (Bld) [Mass ratio] 4-20 /HPF Normal 0-3/HPF [facility] UA Auto SS Nitrite Ql (U) Negative (04/06/23 3:19 [...] [facility] UA Auto SS Urobilinogen Qn (U) 0.2606047 {Dre'U}/dL Normal 0.0 - 1.0 EU/dL [facility] Auto SS WBC Auto Ql (U) Negative (04/06/23 3:19 PM) Normal Negative [facility] UA Auto SS WBC LM.HPF (Urine sed) [#/Area] 0-5 /HPF Normal 0-5/HPF [facility] UA Auto SS Yeast LM Ql (Urine sed) 2+ (04/06/23 3:19 PM) Normal [facility] UA Auto SS CHEMISTRYOrdered By: SYSTEM SYSTEM on 10-21-2022 Bilirubin.direct [Mass/Vol] mg/dL Normal 0.1 - 0.4 mg/dL [facility] Remisol Bilirubin.indirect [Mass or moles/Vol] Unable to Calculate mg/dL Invalid Interpretation Code 0.1 - 0.9 mg/dL [facility] Remisol CRP [Mass/Vol] 1.6 mg/dL Normal <=1.9mg/dL [facility] Rem[facility] GFR/1.73 sq M.predicted among non-blacks MDRD (S/P/Bld) [Vol rate/Area] 97 mL/min/1.73 m2 Normal >=59mL/min /1.73 m2 [facility] Chem S Lipase [Catalytic activity/Vol] 36 U/L Normal 13 - 58 unit/L [facility] Remisol HEMATOLOGYOrdered By: SYSTEM SYSTEM on 10-21-2022 Basophils/100 WBC (Bld) 0.7 % Normal 0.0 - 2.0 % FT HemeAutoSS Basophils/Leukocytes Auto (Bld) [Pure # fraction] 0.1 E9/L Normal 0.0 - 0.2 E9/L [facility] HemeAutoSS Eosinophils/100 WBC (Bld) 2.1 % Normal 0.0 - 8.0 % FT [facility]eAutoSS Eosinophils/Leukocytes Auto (Bld) [Pure # fraction] 0.2 E9/L Normal 0.0 - 0.5 E9/L [facility]eAutoSS Lymphocytes/100 WBC (Bld) 32.5 % Normal 14.0 - 50.0 % [facility]SS Lymphocytes/Leukocytes Auto (Bld) [Pure # fraction] 3.3 E9/L Normal 1.0 - 4.0 E9/L [facility]eAutoSS Monocytes/100 WBC (Bld) 5.4 % Normal 4.0 - 14.0 % [facility]eAutoSS Monocytes/Leukocytes Auto (Bld) [Pure # fraction] 0.5 E9/L Normal 0.2 - 1.0 E9/L FT [facility]eAutoSS Neutrophils/100 WBC (Bld) 59.3 % Normal 36.0 - 75.0 % FT [facility]eAutoSS Neutrophils/Leukocytes Auto (Bld) [Pure # fraction] 6.0 E9/L Normal 2.0 - 7.5 E9/L [facility] HemeAutoSS HEMATOLOGYOrdered By: Angelica Terrazas on 10-21-2022 Erythrocyte distribution width (RBC) [Ratio] 13.6 % Normal 10.9 - 14.2 % [facility] HemeAutoSS Hematocrit (Bld) [Volume fraction] 39.3 % Normal 34.0 - 46.0 % [facility] HemeAutoSS Hemoglobin (Bld) [Mass/Vol] 13.1 g/dL Normal 12.0 - 16.0 gm/dL [facility] HemeAutoSS MCH (RBC) [Entitic mass] 27.5 pg Normal 27.0 - 34.0 pg FT [facility]eAutoSS MCHC (RBC) [Mass/Vol] 33.5 g/dL Normal 31.4 - 36.0 gm/dL [facility]eAutoSS MCV (RBC) [Entitic vol] 82.3 fL Normal 80.0 - 100.0 fL [facility]eAutoSS Platelet mean volume (Bld) [Entitic vol] 8.8 fL Normal 6.4 - 10.8 fL [facility] HemeAutoSS Platelets (Bld) [#/Vol] 240.0 E9/L Normal 150.0 - 500.0 E9/L [facility] HemeAutoSS RBC (Bld) [...] activity/Vol] 63 [iU]/d Normal 21 - 98 Int._Unit/ L [facility] Remisol ALT No additional P-5'-P [Catalytic activity/Vol] 30 [iU]/d Normal 6 - 46 Int._Unit/ L [facility] Remisol Anion gap [Moles/Vol] 15 mmol/L Normal 6 - 16 mEq/L [facility] Remisol AST [Catalytic activity/Vol] 22 [iU]/d Normal 5 - 43 Int._Unit/ L [facility] Remisol Bilirubin [Mass/Vol] 0.5 mg/dL Normal [...] [#/Area] 0-2 /HPF Normal 0-2/HPF [facility] UA Auto SS Glucose Test strip (U) [Mass/Vol] Negative (10/21/22 4:10 PM) Normal Negative [facility] UA Auto SS Hemoglobin Ql (U) Negative (10/21/22 4:10 PM) Normal Negative [facility] UA Auto SS Ketones (U) [Mass/Vol] Negative (10/21/22 4:10 PM) Normal Negative [facility] UA Auto SS Lisco.plasma/Lisco .RBC (Bld) [Mass ratio] 0-3 /HPF Normal 0-3/HPF [facility] UA Auto SS Nitrite Ql (U) Negative (10/21/22 4:10 PM) Normal Negative [facility] UA Auto SS pH (U) 5.5 *NA* (6/15/23 4:10 PM) Invalid Interpretation Code 5.0 - 9.0 [facility] UA Auto SS Protein (U) [Mass/Vol] Negative (10/21/22 4:10 PM) Normal Negative [facility] UA Auto SS Specific gravity (U) [Rel density] >=1.030 *NA* (10/21/22 4:10 PM) Invalid Interpretation Code 1.005 - 1.030 [facility] UA Auto SS UA Spec Desc Clean Catch (10/21/22 4:10 PM) Normal [facility] UA Auto SS Urobilinogen Qn (U) 0.9873370 {Dre'U}/dL Normal 0.0 - 1.0 EU/dL [facility] [...] activity/Vol] 55 [iU]/d Normal 21 - 98 Int._Unit/ L [facility] Remisol ALT No additional P-5'-P [Catalytic activity/Vol] 22 [iU]/d Normal 6 - 46 Int._Unit/ L [facility] Remisol Anion gap [Moles/Vol] 12 mmol/L Normal 6 - 16 mEq/L [facility] Remisol AST [Catalytic activity/Vol] 19 [iU]/d Normal 5 - 43 Int._Unit/ L [facility] Remisol Bilirubin [Mass/Vol] 0.7 mg/dL Normal 0.0 - 1 .1 mg/dL [facility] Remisol Bilirubin.direct [Mass/Vol] 0.1 mg/dL Normal 0.1 - 0.4 mg/dL [facility] Remisol Bilirubin.indirect [Mass or moles/Vol] 0.6 mg/dL Normal 0.1 - 0.9 mg/dL [facility] Remisol Calcium [Mass/Vol] 8.7 mg/dL Low 8.9 - 11. 1 mg/dL [facility] Chloride [Moles/Vol] 104 mmol/L Normal 101 - 1 11 mmol/L [facility] CO2 [Moles/Vol] 26 mmol/L Normal 21 - 31 mmol/L [facility] Remisol Creatinine [Mass/Vol] 0.9 mg/dL Normal 0.5 - 1.3 mg/dL [facility] Remisol GFR/1.73 sq M.predicted among blacks MDRD (S/P/Bld) [Vol rate/Area] mL/min/1.73 m2 Normal >=59mL/min /1.73 m2 FT Chem S GFR/1.73 sq M.predicted among non-blacks MDRD (S/P/Bld) [Vol rate/Area] mL/min/1.73 m2 Normal >=59mL/min /1.73 m2 [facility] Chem S Globulin (S) [Mass/Vol] 3.6 g/dL [...] HemeAutoSS Platelets (Bld) [#/Vol] 234.0 E9/L Normal 150.0 - 500.0 E9/L [facility]AutoSS RBC (Bld) [#/Vol] 4.7 E12/L Normal 4.3 - 5.9 E12/L [facility] WBC corrected for nucl RBC Auto (Bld) [#/Vol] 10.2 E9/L Normal 4.0 - 11.0 E9/L [facility] URINALYSISOrdered By: Angelica Terrazas on 05-23-2022 [...] [#/Area] 3-4 /HPF Normal 0-2/HPF [facility] UA Auto SS Glucose Test strip (U) [Mass/Vol] Negative (05/23/22 7:54 AM) Normal Negative [facility] UA Auto SS Hemoglobin Ql (U) Negative (05/23/22 7:54 AM) Normal Negative [facility] UA Auto SS Ketones (U) [Mass/Vol] 1+ *ABN* (05/23/22 7:54 AM) Invalid Interpretation Code Negative [facility] UA Auto SS Lisco.plasma/Lisco .RBC (Bld) [Mass ratio] 0-3 /HPF Normal 0-3/HPF [facility] UA Auto SS Nitrite Ql (U) Negative (05/23/22 7:54 [...] Desc Clean Catch (05/23/22 7:54 AM) Normal [facility] UA Auto SS Urobilinogen Qn (U) 0.3062574 {Dre'U}/dL Normal 0.0 - 1.0 EU/dL [facility] UA Auto SS WBC Auto Ql (U) Negative (05/23/22 7:54 AM) Normal Negative [facility] UA Auto SS WBC LM.HPF (Urine sed) [#/Area] 0-5 /HPF Normal 0-5/HPF [facility] UA Auto SS HEMOGLOBIN A1C (POC)on 03-31 HbA1c (Bld) [Mass fraction] 6.0 % 4.2 - 5.6 % [facility] CHEMISTRYOrdered By: SYSTEM SYSTEM on 12-31-2021 Albumin [Mass/Vol] 4.4 g/dL Normal 3.3 - 5.0 gm/dL [facility] Remisol Albumin/Globulin [Mass ratio] 1.2 {ratio} Normal 1.1 - 2.2 [facility] Remisol ALP [Catalytic activity/Vol] 59 [iU]/d Normal 21 - 98 Int._Unit/ L [facility] Remisol ALT No additional P-5'-P [Catalytic activity/Vol] 24 [iU]/d Normal 6 - 46 Int._Unit/ L [facility] Remisol Anion gap [Moles/Vol] 13 mmol/L Normal 6 - 16 mEq/L [facility] Remisol AST [Catalytic activity/Vol] 22 [iU]/d Normal 5 - 43 Int._Unit/ L [facility] Remisol Bilirubin [Mass/Vol] 0.4 mg/dL Normal [...] MDRD (S/P/Bld) [Vol rate/Area] mL/min/1.73 m2 Normal >=59mL/min /1.73 m2 FT Chem S GFR/1.73 sq M.predicted among non-blacks MDRD (S/P/Bld) [Vol rate/Area] mL/min/1.73 m2 Normal >=59mL/min /1.73 m2 FT Chem S Globulin (S) [Mass/Vol] 3.8 g/dL Normal 1.4 - 4.0 gm/dL [facility] Remisol Glucose [Mass/Vol] 105 mg/dL Normal 55 - 199 mg/dL [facility] Magnesium [Mass/Vol] 1.8 mg/dL Normal 1.3 - 2 .4 mg/dL [facility] Potassium [Moles/Vol] 3.5 mmol/L Normal 3.5 - 5.3 mmol/L [facility] Remisol Protein [Mass/Vol] 8.2 g/dL High 6.0 [...] HemeAutoSS Platelets (Bld) [#/Vol] 254.0 E9/L Normal 150.0 - 500.0 E9/L [facility] HemeAutoSS RBC (Bld) [...] activity/Vol] 60 [iU]/d Normal 21 - 98 Int._Unit/ L [facility] Remisol ALT No additional P-5'-P [Catalytic activity/Vol] 20 [iU]/d Normal 6 - 46 Int._Unit/ L [facility] Remisol Comment on above: Result Comment: 'Spe cimen hemolyzed, result may be affected. Recommend redraw.' Anion gap [Moles/Vol] 14 mmol/L Normal 6 - 16 mEq/L [facility] Remisol AST [Catalytic activity/Vol] 31 [iU]/d Normal 5 - 43 Int._Unit/ L [facility] Remisol Comment on above: Result Comment: [...] MDRD (S/P/Bld) [Vol rate/Area] mL/min/1.73 m2 Normal >=59mL/min /1.73 m2 FT Chem S GFR/1.73 sq M.predicted among non-blacks MDRD (S/P/Bld) [Vol rate/Area] mL/min/1.73 m2 Normal >=59mL/min /1.73 m2 FT Chem S Globulin (S) [Mass/Vol] 3.8 g/dL Normal 1.4 - 4.0 gm/dL FT Remisol Glucose [Mass/Vol] 128 mg/dL Normal 55 - 199 mg/dL [facility] Lipase [Catalytic activity/Vol] 43 U/L Normal 13 - 58 unit/L [facility] Magnesium [Mass/Vol] 1.9 mg/dL Normal 1.3 - 2 .4 mg/dL [facility] Comment on above: Result Comment: 'Spe cimen hemolyzed, result may be affected. Redraw is recommended.' Potassium [Moles/Vol] 4.2 mmol/L Normal 3.5 - 5.3 mmol/L [facility] Comment on above: Result Comment: 'Spe cimen hemolyzed. Result may be affected. Redraw is recommended.' Protein [Mass/Vol] 7.9 g/dL High 6.0 - 7.8 gm/dL [facility] Sodium [Moles/Vol] 139 mmol/L Normal 135 - 145 mmol/L [facility] Troponin I.cardiac [Mass/Vol] pg/mL Low 10.10 - 27.10 pg/mL [facility] Urea nitrogen [Mass/Vol] 12 mg/dL Normal 5 - 21 mg/dL [facility] Urea nitrogen/Creatinine [Mass ratio] 15 mg/mg Normal 10 - 20 [facility] CHEMISTRYOrdered By: Nerissa Velarde on 12-24-2021 Natriuretic peptide B (Bld) [Mass/Vol] 7 pg/mL Normal 5 - 80 pg/mL [facility] HemeManSS HEMATOLOGYOrdered By: SYSTEM SYSTEM on 12-24-2021 Basophils/100 WBC (Bld) 0.9 % Normal 0.0 - 2.0 % [facility] HemeAutoSS Basophils/Leukocytes Auto (Bld) [Pure # fraction] 0.1 E9/L Normal 0.0 - 0.2 E9/L [facility]eAutoSS Eosinophils/100 WBC (Bld) 3.9 % Normal 0.0 - 8.0 % [facility] HemeAutoSS Eosinophils/Leukocytes Auto (Bld) [Pure # fraction] 0.6 E9/L High 0.0 - 0.5 E9/L [facility] HemeAutoSS Lymphocytes/100 WBC (Bld) 33.3 % Normal [...] HemeAutoSS Platelets (Bld) [#/Vol] 363.0 E9/L Normal 150.0 - 500.0 E9/L [facility] HemeAutoSS RBC (Bld) [#/Vol] 3.2 E12/L Low 4.3 - 5.9 E12/L [facility] HemeAutoSS WBC corrected for nucl RBC Auto (Bld) [#/Vol] 15.4 E9/L High 4.0 - 11.0 E9/L [facility]eAutoSS Comment on above: Result Comment: Slid e reviewed by [facility] MICRO OTHER TESTSOrdered By: Nerissa Velarde on 12-24-2021 Rapid COV Int NEG Ctl Pass (12/24/21 10:00 PM) Normal [facility] Man Sero Rapid COV Int POS Ctl Pass (12/24/21 10:00 PM) Normal [facility] Man Sero SARS-CoV+SARS-CoV-2 (COVID-19) Ag IA.rapid Ql (Resp) Not Detected (12/24/21 10:00 PM) Normal Not Detected [facility] Man Sero SEROLOGYOrdered By: Nerissa Velarde on 12-24-2021 HCG.beta subunit (U) [Moles/Vol] Negative Normal [facility] Sero CHEMISTRYOrdered By: Nuria Bills se on 11-24-2021 HbA1c (Bld) [Mass fraction] 6.3 % High <=5.9% 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 Her PCP is a nurse practitioner, Violet. [...] metformin for (more content not included)... Normal [employer] CHEMISTRYOrdered By: SYSTEM SYSTEM on 11-01-2021 Albumin [Mass/Vol] 4.3 g/dL Normal 3.3 - 5.0 gm/dL [facility] Albumin/Globulin [Mass ratio] 1.3 {ratio} Normal 1.1 - 2.2 [facility] ALP [Catalytic activity/Vol] 60 [iU]/d Normal 21 - 98 Int._Unit/ L [facility] ALT No additional P-5'-P [Catalytic activity/Vol] 23 [iU]/d Normal 6 - 46 Int._Unit/ L [facility] Anion gap [Moles/Vol] 11 mmol/L Normal 6 - 16 mEq/L [facility] AST [Catalytic activity/Vol] 20 [iU]/d Normal 5 - 43 Int._Unit/ L [facility] Bilirubin [Mass/Vol] 0.3 mg/dL Normal [...] MDRD (S/P/Bld) [Vol rate/Area] mL/min/1.73 m2 Normal >=59mL/min /1.73 m2 [facility] Chem S GFR/1.73 sq M.predicted among non-blacks MDRD (S/P/Bld) [Vol rate/Area] mL/min/1.73 m2 Normal >=59mL/min /1.73 m2 [facility] Chem S Globulin (S) [Mass/Vol] [...] HemeAutoSS Platelets (Bld) [#/Vol] 237.0 E9/L Normal 150.0 - 500.0 E9/L [facility] HemeAutoSS RBC (Bld) [#/Vol] 4.7 E12/L Normal 4.3 - 5.9 E12/L [facility] HemeAutoSS WBC corrected for nucl RBC Auto (Bld) [#/Vol] 11.7 E9/L High 4.0 - 11.0 E9/L [facility] HemeAutoSS SEROLOGYOrdered By: Osmin Charles ster on 11-01-2021 Beta hCG Ql Negative (11/01/21 7:59 PM) Normal [facility] Man Sero URINALYSISOrdered By: Osmin hernandez on 11-01-2021 Bacteria LM Ql (Urine sed) Trace /HPF Normal Trace/HPF [facility] UA Auto SS Bilirubin Ql (U) Negative (11/01/21 7:59 PM) Normal Negative [facility] UA Auto SS Clarity (U) Clear (11/01/21 7:59 PM) Normal Clear [facility] UA Auto SS Color (U) STRAW Invalid Interpretation Code [facility] UA Auto SS Epithelial cells.squamous LM.HPF (Urine sed) [#/Area] 0-2 /HPF Normal 0-2/HPF [facility] UA Auto SS Glucose Test strip (U) [Mass/Vol] Negative (11/01/21 7:59 PM) Normal Negative [facility] UA Auto SS Hemoglobin Ql (U) Negative (11/01/21 7:59 PM) Normal Negative [facility] UA Auto SS Ketones (U) [Mass/Vol] Negative (11/01/21 7:59 PM) Normal Negative [facility] UA Auto SS Lisco.plasma/Lisco .RBC (Bld) [Mass ratio] 0-3 /HPF Normal 0-3/HPF [facility] UA Auto SS Mucus Ql (Urine sed) 1+ (11/01/21 [...] Desc Clean Catch (11/01/21 7:59 PM) Normal [facility] UA Auto SS Urobilinogen Qn (U) 0.4914230 {Dre'U}/dL Normal 0.0 - 1.0 EU/dL [facility] UA Auto SS WBC Auto Ql (U) Negative (11/01/21 7:59 PM) Normal Negative [facility] UA Auto SS WBC LM.HPF (Urine sed) [#/Area] 0-5 /HPF Normal 0-5/HPF [facility] UA Auto SS BLOOD BANKOrdered By: Pita landry on 08-18-2021 ABO/Rh Interp Positive Invalid Interpretation Code [facility] BB Subsection ABSC Gel Interp Negative (08/18/21 8:25 AM) Normal [facility] BB Subsection CHEMISTRYOrdered By: SYSTEM SYSTEM on [...] HemeAutoSS Platelets (Bld) [#/Vol] 288.0 E9/L Normal 150.0 - 500.0 E9/L [facility] HemeAutoSS RBC (Bld) [...] [#/Area] 5-8 /HPF Normal 0-2/HPF [facility] UA Auto SS Glucose Test strip (U) [Mass/Vol] Negative (08/18/21 8:55 AM) Normal Negative [facility] UA Auto SS Hemoglobin Ql (U) 1+ *ABN* (08/18/21 8:55 AM) Invalid Interpretation Code Negative [facility] UA Auto SS Ketones (U) [Mass/Vol] Negative (08/18/21 8:55 AM) Normal Negative [facility] UA Auto SS Lisco.plasma/Lisco .RBC (Bld) [Mass ratio] 0-3 /HPF Normal 0-3/HPF [facility] UA Auto SS Mucus Ql (Urine sed) Trace (08/18/21 [...] Desc Clean Catch (08/18/21 8:55 AM) Normal [facility] UA Auto SS Urobilinogen Qn (U) 0.1704511 {Dre'U}/dL Normal 0.0 - 1.0 EU/dL [facility] UA Auto SS WBC Auto Ql (U) Negative (08/18/21 8:55 AM) Normal Negative [facility] UA Auto SS WBC LM.HPF (Urine sed) [#/Area] 0-5 /HPF Normal 0-5/HPF [facility] UA Auto SS CHEMISTRYOrdered By: SYSTEM SYSTEM on 07-29-2021 Albumin [Mass/Vol] 4.0 g/dL Normal 3.3 - 5.0 gm/dL [facility] Albumin/Globulin [Mass ratio] 1.3 {ratio} Normal 1.1 - 2.2 [facility] ALP [Catalytic activity/Vol] 63 [iU]/d Normal 21 - 98 Int._Unit/ L [facility] ALT No additional P-5'-P [Catalytic activity/Vol] 19 [iU]/d Normal 6 - 46 Int._Unit/ L [facility] Anion gap [Moles/Vol] 11 mmol/L Normal 6 - 16 mEq/L [facility] AST [Catalytic activity/Vol] 16 [iU]/d Normal 5 - 43 Int._Unit/ L [facility] Bilirubin [Mass/Vol] 0.7 mg/dL Normal [...] MDRD (S/P/Bld) [Vol rate/Area] mL/min/1.73 m2 Normal >=59mL/min /1.73 m2 [facility] Chem S GFR/1.73 sq M.predicted among non-blacks MDRD (S/P/Bld) [Vol rate/Area] mL/min/1.73 m2 Normal >=59mL/min /1.73 m2 [facility] Chem S Globulin (S) [Mass/Vol] 3.1 g/dL [...] 28.4 % Normal 14.0 - 50.0 % [facility] HemeAutoSS Lymphocytes/Leukocytes Auto (Bld) [Pure # fraction] [...] 5.6 E9/L Normal 2.0 - 7.5 E9/L [facility] HemeAutoSS HEMATOLOGYOrdered By: Pita landry on 07-29-2021 Erythrocyte distribution width (RBC) [Ratio] 14.2 % Normal 10.9 - 14.2 % [facility] HemeAutoSS Hematocrit (Bld) [Volume fraction] 35.6 % Normal 34.0 - 46.0 % [facility] HemeAutoSS Hemoglobin (Bld) [Mass/Vol] 11.7 g/dL Low 12.0 - 16.0 gm/dL [facility]eAutoSS MCH (RBC) [Entitic mass] 26.3 pg Low 27.0 - 34.0 pg [facility]eAutoSS MCHC (RBC) [Mass/Vol] 32.9 g/dL Normal 31.4 - 36.0 gm/dL [facility]eAutoSS MCV (RBC) [Entitic vol] 79.9 fL Low 80.0 - 100.0 fL [facility]eAutoSS Platelet mean volume (Bld) [Entitic vol] 8.7 fL Normal 6.4 - 10.8 fL [facility] HemeAutoSS Platelets (Bld) [#/Vol] 256.0 E9/L Normal 150.0 - 500.0 E9/L [facility] HemeAutoSS RBC (Bld) [#/Vol] 4.5 E12/L Normal 4.3 - 5.9 E12/L [facility] HemeAutoSS WBC corrected for nucl RBC Auto (Bld) [#/Vol] 8.8 E9/L Normal 4.0 - 11.0 E9/L [facility] HemeAutoSS ECG 12 lead ECGon 07-07-2021 ECG 12 lead ECG [facility] [place] [address] [place], [place] [id number] Electrocardiograph Report Signed Patient: Alma Delia Pearl MR#: [id number] : 1985 Acct:[id number] Age/Sex: 36 / F ADM Date: 07/07/21 Loc: ER Room: Type: [facility] ER Attending Dr: Ordering Provider: Kanu Rudolph DO Date of Service: 07/08/2106/30/253 ECG/ECG 12 lead ECG: Nausea/Vomiting/Diarrhea Copies to: Test Reason : Blood Pressure [...] Ulises Andre MD 0 07/10/21 1412 Normal [facility] HCG,Urineon 07-06-2021 Beta HCG ( test) Ql (U) Negative Normal [facility] Comment on above: Result Comment: PERF ORMED BY: [place] [address] PATHOLOGIST [employer] KISS MAKER MARLEN SIDDIQUI M.D. 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 The use of this assay to monitor or to diagnose patients with cancer or any condition unrelated to has not been cleared or approved by the FDA or the dermatology sales representative of the assay. Performed By: #### 2 [id number] #### [facility] Default [address] [place] [address] ER URINE PROFILEon 8 Bilirubin (total) Negative Normal NEGATIVE [facility] Comment on above: Performed By: #### E RUR ####[facility] Xoexpoaehl[address] [place] BLOOD Negative Normal NEGATIVE [facility] Comment on above: Performed By: #### E RUR ####[facility] [address] [place] [address] [place] ERUAHD A micrscopic examina tion will be performed if indicated. Normal [facility] Comment on above: Performed By: #### E RUR ####[facility] Pdmrfgjwjr5937 [address] [place] Glucose mass conc Negative Normal NEGATIVE [facility] Comment on above: Performed By: #### E RUR ####[facility] Ixzkhpupri7576 [address] [place] pH of blood 5.0 [pH] Normal 5-9 [facility] Comment on above: Performed By: #### E RUR ####[facility] Emczlsehuh9536 [address] [place] Protein Negative Normal [facility] Comment on above: Performed By: #### E RUR ####[facility] Ihtnjoamci6[address] [place] SPEC GRAVITY >=1.030 Normal 1.005-<=1. 025 [facility] Comment on above: Performed By: #### E RUR ####[facility] Ojsxlqnlgq8693 [address] [place] UR MICRO IND NOT INDICATED Normal [facility] Comment on above: Performed By: #### E RUR ####[facility] Dntgcguycq1726 [address] [place] Urine, clarity CLEAR Normal [facility] Comment on above: Performed By: #### E RUR ####[facility] Y[address]jeg[address] [place] [address] [place] Urine, color LT. YELLOW Normal YELLOW [facility] Comment on above: Performed By: #### E RUR ####[facility] Tcmesakjhj9622 [address] [place] Urine, ketones presence Negative Normal NEGATIVE [facility] Comment on above: Performed By: #### E RUR ####[facility] F[address]fe[address] [place] [address] [place] Urine, nitrite presence Negative Normal NEGATIVE [facility] Comment on above: Performed By: #### E RUR ####[facility] [address]av[address] [place] [address] [place] Urine, urobilinogen 0.2 {Dre'U}/dL Normal [facility] Comment on above: Performed By: #### E RUR ####[facility] [address] [place] [address] [place] WBC (Leukocytes) Negative Normal NEGATIVE [facility] Comment on above: Performed By: #### E RUR ####[facility] [address] [place] [address] [place] URon 06-04-2017 , QUAL Negative Normal NEGATIVE [facility] Comment on above: Performed By: #### S SCRN, STREPC ####[facility] [address] [place] [address] [place] AMYLASEon 06-03-2017 Amylase 48 U/L Normal 31-110 [facility] Comment on above: Performed By: #### L IPA, CMP, NERY ####[facility] [address] [place] [address] CBC AUTO DIFFon 06-03-2017 Basophils Auto #/vol (Bld) 0.0 103/ul Normal 0.0-0.1 [facility] Comment on above: Performed By: #### C BC ####[facility] Bprbmijorh[address] [place] [address] [place] Basophils/100 WBC Auto (Bld) 0.3 % Normal 0.2-2.0 [facility] Comment on above: Performed By: #### C BC ####[facility] [address] [place] [address] [place] Eosinophils 0.2 103/ul Normal 0.0-0.7 [facility] Comment on above: Performed By: #### C BC ####[facility] Ul[address]mrg[address] [place] [address] [place] Eosinophils/100 leukocytes 2.2 % Normal 0.9-7.0 [facility] Comment on above: Performed By: #### C BC ####[facility] Deohdrydwp[address] [place] [address] [place] Erythrocyte distribution width Auto Ratio (RBC) 13.2 % Normal 11.0-15.0 [facility] Comment on above: Performed By: #### C BC ####[facility] [address] [place] [address] [place] Erythrocytes (RBC) 4.92 106/ul Normal 4.20-5.40 [facility] Comment on above: Performed By: #### C BC ####[facility] Z[address] [place] [address] [place] Hematocrit (HCT) 41.8 % Normal 36.0-48.0 [facility] Comment on above: Performed By: #### C BC ####[facility] Rodbfqdtgb[address] [place] [address] [place] Hemoglobin mass conc (Bld) 13.6 g/dL Normal 12.0-16.0 [facility] Comment on above: Performed By: #### C BC ####[facility] [address] [place] [address] [place] IG # 0.04 10e3/ul Critically high 0.00-0.03 [facility] Comment on above: Performed By: #### C BC ####[facility] Gwbodnwilc7649 [address] [place] IG % 0.4 % Normal 0.0-0.5 [facility] Comment on above: Performed By: #### C BC ####[facility] Lpaqguxaht6802 [address] [place] Lymphocytes 1.6 103/ul Normal 1.2-3.8 [facility] Comment on above: Performed By: #### C BC ####[facility] [address] [place] [address] [place] Lymphocytes/100 leukocytes 15.8 % Critically low 20.5-60.0 [facility] Comment on above: Performed By: #### C BC ####[facility] [address] [place] [address] [place] MANUAL DIFF REQ NO Normal [facility] Comment on above: Performed By: #### C BC ####[facility] [address]ir[address] [place] [address] [place] MCH 27.6 pg Normal 26.7-34.0 [facility] Comment on above: Performed By: #### C BC ####[facility] Akkilmcytw[address] [place] [address] [place] MCHC mass conc (RBC) 32.5 g/dL Normal 29.9-35.2 [facility] Comment on above: Performed By: #### C BC ####[facility] W[address]cx[address] [place] [address] [place] MCV 85.0 fL Normal 81.0-99.0 [facility] Comment on above: Performed By: #### C BC ####[facility] Yirct[address] [place] [address] [place] Monocytes 0.6 103/ul Normal 0.3-0.8 [facility] Comment on above: Performed By: #### C BC ####[facility] [address] [place] [address] [place] Monocytes/100 leukocytes 6.2 % Normal 1.7-12.0 [facility] Comment on above: Performed By: #### C BC ####[facility] [address] [place], [place] [address]Gerken [place] Neutrophils 7.6 103/ul Critically high 1.4-6.5 [facility] Comment on above: Performed By: #### C BC ####[facility] [address] [place], [place] [address] [place] Neutrophils/100 WBC Auto (Bld) 75.1 % Critically high 43.0-75.0 [facility] Comment on above: Performed By: #### C BC ####[facility] [address] [place] [address] [place] Platelet mean volume (PMV) 10.5 fL Normal 9.5-13.5 [facility] Comment on above: Performed By: #### C BC ####[facility] [address] [place] [address] [place] Platelets 248 103/ul Normal 150-450 [facility] Comment on above: Performed By: #### C BC ####[facility] T[address]fr[address] [place], [place] [address] WBC (Leukocytes) 10.1 103/ul Normal 4.0-11.0 [facility] Comment on above: Performed By: #### C BC ####[facility] [address] [place] [address] [place] INFLUENZA A AND B AGon 06-03 INFLUANEGH SEE BELOW Normal [facility] Comment on above: Result Comment: Nega tive for Flu A protein angiten. Infection due to Flu A cannot be ruled out. Flu A angiten in the sample may be below the detection limit of the test. Performed By: #### I NFLUAB ####[facility] [address] [place] [address] [place] INFLUBNEGH SEE BELOW Normal [facility] Comment on above: Result Comment: Nega tive for Flu B protein antigen. Infection due to Flu B cannot be ruled out. Flu B antigen in the sample may be below the detection limit of the test. Performed By: #### I NFLUAB ####[facility] Bydzndnelh[address] INFLUENZA A AG Negative Normal NEGATIVE SEE COMMENT [facility] Comment on above: Performed By: #### I NFLUAB ####[facility] Tdftmfljav8584 [address] INFLUENZA B AG Negative Normal NEGATIVE SEE COMMENT [facility] Comment on above: Performed By: #### I NFLUAB ####[facility] [address] [place] [address] INTERNAL CONTROLS Within Normal Limits Normal Wi thin Normal Limits [facility] Comment on above: Performed By: #### I NFLUAB ####[facility] [address] [place] [address] LIPASEon 06-03-2017 Lipase 61.0 U/L Normal 23.0-300.0 [facility] Comment on above: Performed By: #### L IPA, CMP, NERY ####[facility] [address] [place] [address] [place] PROF 14(COMP METB)on 018 Alanine aminotransferase (ALT) 42 U/L Normal 9-52 [facility] Comment on above: Performed By: #### L IPA, CMP, NERY ####[facility] [address] [place] [address] Albumin 4.8 g/dL Normal 3.5-5.0 [facility] Comment on above: Performed By: #### L IPA, CMP, NERY ####[facility] [address] [place] [address] Albumin/Globulin Ratio 1.3 {ratio} Normal [facility] Comment on above: Performed By: #### L IPA, CMP, NERY ####[facility] [address]ls[address] [place] [address] Alkaline phosphatase (ALP) 80 U/L Normal 38-126 [facility] Comment on above: Performed By: #### L IPA, CMP, NERY ####[facility] Rmsebzwtxw[address]42 [address] [place] Anion gap 16.1 mmol/L Normal [facility] Comment on above: Performed By: #### L IPA, CMP, NERY ####[facility] Ybjbhgneiu9916 [address] [place] Aspartate aminotransferase (AST) 18 U/L Normal 14-36 [facility] Comment on above: Performed By: #### L IPA, CMP, NERY ####[facility] Quysoojwbw7770 [address] [place] Bilirubin Ql (U) 0.6 mg/dL Normal 0.2-1.3 [facility] Comment on above: Performed By: #### L IPA, CMP, NERY ####[facility] [address] [place] [address] [place] BUN/Creatinine Ratio 14.1 mg/mg Normal [facility] Comment on above: Performed By: #### L IPA, CMP, NERY ####[facility] Wn[address] [place] [address] [place] Calcium 9.5 mg/dL Normal 8.4-10.2 [facility] Comment on above: Performed By: #### L IPA, CMP, NERY ####[facility] Xptlsgaeyh15[address] [place] Chloride 108 mmol/L Critically high 98-107 [facility] Comment on above: Performed By: #### L IPA, CMP, NERY ####[facility] Rsleuqfsml05[address] [place] CO2 21.0 mmol/L Critically low 22.0-30.0 [facility] Comment on above: Performed By: #### L IPA, CMP, NERY ####[facility] Gdrvkvhxqm[address]79 [address] [place] Creatinine 0.93 mg/dL Normal 0.52-1.04 [facility] Comment on above: Performed By: #### L IPA, CMP, NERY ####[facility] [address] [place] [id number] eGFR (non-black) mL/min/{1.73_m2} Normal >=60 [facility] Comment on above: Performed By: #### L IPA, CMP, NERY ####[facility] Pfrqc[address]kp[address] [place] [id number] Globulin 3.5 g/dL Normal [facility] Comment on above: Performed By: #### L IPA, CMP, NERY ####[facility] Wxes[address]wnbp[address] [place] [id number] Glucose mass conc 144 mg/dL Critically high 74-106 [facility] Comment on above: Performed By: #### L IPA, CMP, NERY ####[facility] Ikyfogqacy7945 [address] [place] Potassium molar conc 3.7 mmol/L Normal 3.4-5.0 [facility] Comment on above: Performed By: #### L IPA, CMP, NERY ####[facility] [address] [place] [address] Protein 8.3 g/dL Critically high 6.1-8.2 [facility] Comment on above: Performed By: #### L IPA, CMP, NERY ####[facility] Agntugeuyc[address] [place] Sodium 142 mmol/L Normal 137-145 [facility] Comment on above: Performed By: #### L IPA, CMP, NERY ####[facility] X[address] [place] [id number] Urea nitrogen 13.0 mg/dL Normal 7.0-17.0 [facility] Comment on above: Performed By: #### L IPA, CMP, NERY ####[facility] [address]fr5939 [place] [id number] XR CHEST 2 Von 05-29-2017 XR CHEST 2 [address] [place] [address] Patient: ALMA DELIA PEARL Exam Date: 05/29/2017DOB: 1985 Gender:F : MR JUAN DIEGO MANZANARES . Admission #: [id number] : MRS. KEILA LYNCH Order #: [id number] HERE TO VIEW EXAM RADIOLOGY REPORT PROCEDURE: [...] M.D. on 05/29/2017 at 16:52 Normal [facility] URon 05-25-2017 , QUAL Negative Normal NEGATIVE [facility] Comment on above: Performed By: #### P REGU ####[facility] Nisybdjceg[address] [place] STREP SCREEN CONFIRMATIONon 05-25-2017 STREP SCREEN CONFIRMATION Culture Observations: FINAL SCANNED RESULT TO FOLLOW IN [facility] Normal [facility] Comment on above: Performed By: #### S SCRN, STREPC ####[facility] Xtqomotxjv[address] [place] STREPT SCREENon 05-25-2017 STREP SCREEN A Negative Normal NEGATIVE [facility] Comment on above: Performed By: #### S SCRN, STREPC ####[facility] [id number] [place] Vital Signs Date Time Vital Sign Value Performing Clinician Facility 09-26-2024 11:45-0400 Diastolic blood pressure 77 mm[Hg] Lucia Gorman [facility] 09-26-2024 11:45-0400 Heart rate 81 /min Mohamad Mouchli [facility] 09-26-2024 11:45-0400 Mean blood pressure 90 mm[Hg] Mohamad Mouchli [facility] 09-26-2024 11:45-0400 Respiratory rate 18 /min Mohamad Mouchli [facility] 09-26-2024 11:45-0400 SaO2% (BldA) [Mass fraction] 98 % Mohamad Mouchli [facility] 09-26-2024 11:45-0400 Systolic blood pressure 117 mm[Hg] Mohamad Mouchli [facility] 09-26-2024 11:30-0400 Heart rate 87 /min Mohamad Mouchli [facility] 09-26-2024 11:30-0400 Respiratory rate 17 /min Mohamad Mouchli [facility] 09-26-2024 11:30-0400 SaO2% (BldA) [Mass fraction] 97 % Mohamad Mouchli [facility] 09-26-2024 11:30-0400 Diastolic blood pressure 85 mm[Hg] Mohamad Mouchli [facility] 09-26-2024 11:30-0400 Systolic blood pressure 127 mm[Hg] Mohamad Mouchli [facility] 09-26-2024 11:30-0400 Mean blood pressure 99 mm[Hg] Mohamad Mouchli [facility] 09-26-2024 11:28-0400 SaO2% (BldA) [Mass fraction] 97 % Mohamad Mouchli [facility] 09-26-2024 11:28-0400 Heart rate 76 /min Mohamad Mouchli [facility] 09-26-2024 11:28-0400 Respiratory rate 17 /min Mohamad Mouchli [facility] 09-26-2024 11:28-0400 Diastolic blood pressure 81 mm[Hg] Mohamad Mouchli [facility] 09-26-2024 11:28-0400 Systolic blood pressure 124 mm[Hg] Mohamad Mouchli [facility] 09-26-2024 11:28-0400 Body temperature 97.52 [degF] Mohamad Mouchli [facility] 09-26-2024 11:28-0400 Mean blood pressure 95 mm[Hg] Mohamad Mouchli [facility] 09-26-2024 11:25-0400 Respiratory rate 18 /min Mohamad Mouchli [facility] 09-26-2024 11:20-0400 Respiratory rate 18 /min Mohamad Mouchli [facility] 09-26-2024 11:15-0400 Respiratory rate 18 /min Mohamad Mouchli [facility] 09-26-2024 10:02-0400 Blood Pressure Location Mohamad Mouchli [facility] 09-26-2024 10:02-0400 Body temperature 98.06 [degF] Mohamad Mouchli [facility] 08-27-2024 13:33-0400 Body height 175.3 cm Abby PAPPAS Work Phone: [facility] 08-27-2024 13:33-0400 Body mass index (BMI) [Ratio] 43.56 kg/m2 Abby Acevedo PA Work Phone: [facility] 08-27-2024 13:33-0400 Body weight 133.81 kg Abby Acevedo PA Work Phone: [facility] 08-27-2024 13:33-0400 Diastolic blood pressure 82 mm[Hg] Abby Acevedo PA Work Phone: [facility] 08-27-2024 13:33-0400 Heart rate 84 /min Abby Acevedo PA Work Phone: [facility] 08-27-2024 13:33-0400 Respiratory rate 16 /min Abby Acevedo PA Work Phone: [facility] 08-27-2024 13:33-0400 SaO2% (BldA) [Mass fraction] 97 % Abby Acevedo PA Work Phone: [facility] 08-27-2024 13:33-0400 Systolic blood pressure 124 mm[Hg] Abby Acevedo PA Work Phone: [facility] 08-01-2024 17:22-0400 Diastolic blood pressure 69 mm[Hg] James Faulkner [facility] 08-01-2024 17:22-0400 Heart rate 96 /min James Faulkner [facility] 08-01-2024 17:22-0400 Respiratory rate 17 /min James Faulkner [facility] 08-01-2024 17:22-0400 SaO2% (BldA) [Mass fraction] 96 % James Faulkner [facility] 08-01-2024 17:22-0400 Systolic blood pressure 111 mm[Hg] James Faulkner [facility] 06-29-2024 18:30-0500 Diastolic blood pressure 83 mm[Hg] Daron George [facility] 06-29-2024 18:30-0500 Heart rate 80 /min Daron Doris [facility] 06-29-2024 18:30-0500 Mean blood pressure 105 mm[Hg] Daron Doris [facility] 06-29-2024 18:30-0500 Respiratory rate 16 /min Daron Doris [facility] 06-29-2024 18:30-0500 SaO2% (BldA) [Mass fraction] 96 % Daron Doris [facility] 06-29-2024 18:30-0500 Systolic blood pressure 148 mm[Hg] Daron Doris [facility] 06-29-2024 18:00-0500 Diastolic blood pressure 85 mm[Hg] Daron Doris [facility] 06-29-2024 18:00-0500 Heart rate 81 /min Daron Doris [facility] 06-29-2024 18:00-0500 Mean blood pressure 101 mm[Hg] Daron Doris [facility] 06-29-2024 18:00-0500 Systolic blood pressure 132 mm[Hg] Daron Doris [facility] 06-29-2024 17:30-0500 Diastolic blood pressure 93 mm[Hg] Daron Doris [facility] 06-29-2024 17:30-0500 Heart rate 92 /min Daron Doris [facility] 06-29-2024 17:30-0500 Mean blood pressure 106 mm[Hg] Daron Doris [facility] 06-29-2024 17:30-0500 Respiratory rate 16 /min Daron Doris [facility] 06-29-2024 17:30-0500 SaO2% (BldA) [Mass fraction] 97 % Daron George [facility] 06-29-2024 17:30-0500 Systolic blood pressure 133 mm[Hg] Daron George [facility] 06-29-2024 15:05-0500 Body temperature 97.7 [degF] Daron George [facility] 06-29-2024 15:05-0500 Heart rate 101 /min Daron George [facility] 06-18-2024 14:53-0500 Body mass index (BMI) [Ratio] 44.15 kg/m2 Keyla Gusman BANQUET STEWARD Work Phone: [facility] 06-18-2024 14:53-0500 Body weight 135.63 kg Keyla Gusman BANQU[employer]EWARD Work Phone: [facility] 06-18-2024 14:53-0500 Diastolic blood pressure 76 mm[Hg] Keyla Gusman BANQUET STEWARD Work Phone: [facility] 06-18-2024 14:53-0500 Heart rate 90 /min Keyla Gusman BANQU[employer] STEWARD Work Phone: [facility] 06-18-2024 14:53-0500 Systolic blood pressure 128 mm[Hg] Keyla Gusman BANQU[employer] STEWARD Work Phone: [facility] 06-01-2024 14:13-0500 Body mass index (BMI) [Ratio] 44.6 kg/m2 Edmundo Devlin MD Work Phone: [facility] 06-01-2024 14:13-0500 Body weight 136.99 kg Edmundo Devlin MD Work Phone: [facility] 05-22-2024 13:33-0500 Blood Pressure Location Devon Calle [facility] 05-22-2024 13:33-0500 Body temperature 97.7 [degF] Devon Calle [facility] 05-22-2024 13:33-0500 Diastolic blood pressure 84 mm[Hg] Devon Calle [facility] 05-22-2024 13:33-0500 Heart rate 88 /min Devon Calle [facility] 05-22-2024 13:33-0500 Respiratory rate 18 /min Devon Calle [facility] 05-22-2024 13:33-0500 SaO2% (BldA) [Mass fraction] 97 % Devon Calle [facility] 05-22-2024 13:33-0500 Systolic blood pressure 130 mm[Hg] Devon Calle [facility] 03-29-2024 11:13-0500 Body mass index (BMI) [Ratio] 44.75 kg/m2 Keyla Gusman BANQUET STEWARD Work Phone: [facility] 03-29-2024 11:13-0500 Body weight 137.44 kg Keyla Gusman BANQU[employer] STEWARD Work Phone: [facility] 03-29-2024 11:13-0500 Diastolic blood pressure 86 mm[Hg] Keyla Gusman BANQU[employer] STEWARD Work Phone: [facility] 03-29-2024 11:13-0500 Heart rate 78 /min Keyla Gusman BANQUET STEWARD Work Phone: [facility] 03-29-2024 11:13-0500 Systolic blood pressure 142 mm[Hg] Keyla Gusman BANQU[employer] STEWARD Work Phone: [facility] 03-02-2024 21:21-0400 Body temperature 97.88 [degF] James Faulkner [facility] 03-02-2024 21:21-0400 Diastolic blood pressure 80 mm[Hg] James Faulkner [facility] 03-02-2024 21:21-0400 Heart rate 87 /min James Faulkner [facility] 03-02-2024 21:21-0400 Respiratory rate 16 /min James Faulkner [facility] 03-02-2024 21:21-0400 SaO2% (BldA) [Mass fraction] 97 % James Faulkner [facility] 03-02-2024 21:21-0400 Systolic blood pressure 118 mm[Hg] James Faulkner [facility] 02-28-2024 09:13-0400 Body temperature 98.42 [degF] Devon Calle [facility] 02-28-2024 09:13-0400 Diastolic blood pressure 86 mm[Hg] Devon Calle [facility] 02-28-2024 09:13-0400 Heart rate 86 /min Devon Calle [facility] 02-28-2024 09:13-0400 SaO2% (BldA) [Mass fraction] 97 % Devon Calle [facility] 02-28-2024 09:13-0400 Systolic blood pressure 132 mm[Hg] Devon Calle [facility] 01-23-2024 10:26-0400 Body mass index (BMI) [Ratio] 44.32 kg/m2 Nery PAPPAS Work Phone: [facility] 01-23-2024 10:26-0400 Body weight 136.13 kg Nery PAPPAS Work Phone: [facility] 01-23-2024 10:26-0400 Diastolic blood pressure 80 mm[Hg] Nery PAPPAS Work Phone: [facility] 01-23-2024 10:26-0400 Systolic blood pressure 130 mm[Hg] Nery PAPPAS Work Phone: [facility] 01-13-2024 10:33-0400 Diastolic blood pressure 74 mm[Hg] KYUNG BEVERLY [facility] 01-13-2024 10:33-0400 Mean blood pressure 87 mm[Hg] KYUNG BEVERLY [facility] 01-13-2024 10:33-0400 Systolic blood pressure 113 mm[Hg] KYUNG BEVERLY [facility] 01-13-2024 10:16-0400 Blood Pressure Location KYUNG BEVERLY [facility] 01-13-2024 10:16-0400 Diastolic blood pressure 102 mm[Hg] KYUNG BEVERLY [facility] 01-13-2024 10:16-0400 Heart rate 67 /min KYUNG BEVERLY [facility] 01-13-2024 10:16-0400 Respiratory rate 16 /min KYUNG BEVERLY [facility] 01-13-2024 10:16-0400 Systolic blood pressure 135 mm[Hg] KYUNG BEVERLY [facility] 01-05-2024 14:28-0400 Diastolic blood pressure 68 mm[Hg] Daron Hernandez [facility] 01-05-2024 14:28-0400 Heart rate 72 /min Daron Zamoray [facility] 01-05-2024 14:28-0400 Systolic blood pressure 117 mm[Hg] Daron Mourany [facility] 01-02-2024 16:10-0400 Body mass index (BMI) [Ratio] 44.6 kg/m2 Keyla Gusman [employer]EWARD Work Phone: [facility] 01-02-2024 16:10-0400 Body weight 136.99 kg Keyla Gusman [employer]EWARD Work Phone: [facility] 01-02-2024 16:10-0400 Diastolic blood pressure 78 mm[Hg] Keyla Gusman [employer]EWARD Work Phone: [facility] 01-02-2024 16:10-0400 Heart rate 81 /min Keyla Gusman [employer]EWARD Work Phone: [facility] 01-02-2024 16:10-0400 Systolic blood pressure 134 mm[Hg] Keyla Gusman BANQU[employer] STEWARD Work Phone: [facility] 12-21-2023 16:19-0400 Heart rate 77 /min Daron Zamoray [facility] 12-21-2023 16:19-0400 SaO2% (BldA) [Mass fraction] 97 % Daron Mourany [facility] 12-21-2023 16:18-0400 Diastolic blood pressure 79 mm[Hg] Daron Mourany [facility] 12-21-2023 16:18-0400 Mean blood pressure 96 mm[Hg] Daron Mourany [facility] 12-21-2023 16:18-0400 Systolic blood pressure 131 mm[Hg] Daron Mourany [facility] 12-21-2023 16:18-0400 Respiratory rate 16 /min Daron Zamoray [facility] 12-21-2023 16:00-0400 Body temperature 97.7 [degF] Daron Mourany [facility] 12-21-2023 15:30-0400 Heart rate 86 /min Daron Mourany [facility] 12-21-2023 15:30-0400 SaO2% (BldA) [Mass fraction] 97 % Daron Mourany [facility] 12-21-2023 15:30-0400 Diastolic blood pressure 70 mm[Hg] Daron Mourany [facility] 12-21-2023 15:30-0400 Mean blood pressure 83 mm[Hg] Daron Mourany [facility] 12-21-2023 15:30-0400 Systolic blood pressure 109 mm[Hg] Daron Mourany [facility] 12-21-2023 15:29-0400 Respiratory rate 16 /min Daron Mourany [facility] 12-21-2023 15:20-0400 Blood Pressure Location Daron Mourany [facility] 12-21-2023 15:20-0400 Diastolic blood pressure 50 mm[Hg] Daron Mourany [facility] 12-21-2023 15:20-0400 Heart rate 87 /min Daron Mourany [facility] 12-21-2023 15:20-0400 Mean blood pressure 73 mm[Hg] Daron Mourany [facility] 12-21-2023 15:20-0400 Respiratory rate 15 /min Daron Mourany [facility] 12-21-2023 15:20-0400 SaO2% (BldA) [Mass fraction] 98 % Daron Mourany [facility] 12-21-2023 15:20-0400 Systolic blood pressure 118 mm[Hg] Daron Mourany [facility] 12-21-2023 15:10-0400 Blood Pressure Location Daron Mourany [facility] 12-21-2023 15:10-0400 Mean blood pressure 94 mm[Hg] Daron Mourany [facility] 12-21-2023 15:10-0400 Respiratory rate 14 /min Daron Mourany [facility] 12-21-2023 15:05-0400 Blood Pressure Location Daron Mourany [facility] 12-21-2023 15:05-0400 Mean blood pressure 81 mm[Hg] Daron Mourany [facility] 12-21-2023 15:05-0400 Respiratory rate 15 /min Daron Mourany [facility] 12-21-2023 14:53-0400 Body temperature 97.88 [degF] Daron Mourany [facility] 12-21-2023 14:40-0400 Respiratory rate 15 /min Daron Mourany [facility] 12-21-2023 12:16-0400 Mean blood pressure 85 mm[Hg] Daron Mourany [facility] 12-21-2023 12:14-0400 Body temperature 97.52 [degF] Daron Mourany [facility] 12-16-2023 10:33-0400 Blood Pressure Location Daron Mourany [facility] 12-16-2023 10:33-0400 Diastolic blood pressure 75 mm[Hg] Daron Mourany [facility] 12-16-2023 10:33-0400 Heart rate 77 /min Daron Mourany [facility] 12-16-2023 10:33-0400 Mean blood pressure 88 mm[Hg] Daron Mourany [facility] 12-16-2023 10:33-0400 Systolic blood pressure 114 mm[Hg] Daron Mourany [facility] 12-16-2023 10:32-0400 Heart rate 70 /min Daron Mourany [facility] 12-16-2023 10:32-0400 Respiratory rate 18 /min Daron Mourany [facility] 12-16-2023 10:32-0400 SaO2% (BldA) [Mass fraction] 96 % Daron Mourany [facility] 12-16-2023 10:32-0400 Body temperature 97.7 [degF] Daron Mourany [facility] 12-16-2023 10:32-0400 Blood Pressure Location Daron Mourany [facility] 12-16-2023 10:32-0400 Diastolic blood pressure 76 mm[Hg] Daron Mourany [facility] 12-16-2023 10:32-0400 Mean blood pressure 91 mm[Hg] Daron Mourany [facility] 12-16-2023 10:32-0400 Systolic blood pressure 120 mm[Hg] Daron Mourany [facility] 12-09-2023 08:57-0400 Diastolic blood pressure 79 mm[Hg] Daron Mourany [facility] 12-09-2023 08:57-0400 Heart rate 85 /min Daron Mourany [facility] [place] 12-09-2023 08:57-0400 Systolic blood pressure 108 mm[Hg] Daron Mourany [facility] 12-02-2023 10:54-0400 Body temperature 98.06 [degF] Daron Mourany [facility] 12-02-2023 10:54-0400 Diastolic blood pressure 69 mm[Hg] Daron Mourany [facility] 12-02-2023 10:54-0400 Heart rate 78 /min Daron Mourany [facility] 12-02-2023 10:54-0400 Systolic blood pressure 100 mm[Hg] Daron Mourany [facility] 11-29-2023 20:28-0400 Body temperature 97.88 [degF] Kaylinn Dokken [facility] 11-29-2023 20:28-0400 Diastolic blood pressure 78 mm[Hg] Kaylinn Dokken [facility] 11-29-2023 20:28-0400 Heart rate 92 /min Kaylinn Dokken [facility] 11-29-2023 20:28-0400 Respiratory rate 18 /min Kaylinn Dokken [facility] 11-29-2023 20:28-0400 SaO2% (BldA) [Mass fraction] 97 % Celena Dias [facility] 11-29-2023 20:28-0400 Systolic blood pressure 125 mm[Hg] Celena Dias [facility] 11-28-2023 20:59-0400 Body temperature 97.88 [degF] James Faulkner [facility] 11-28-2023 20:59-0400 Diastolic blood pressure 68 mm[Hg] James Kaushik [facility] 11-28-2023 20:59-0400 Heart rate 82 /min James Kaushik [facility] 11-28-2023 20:59-0400 Respiratory rate 18 /min James Kaushik [facility] 11-28-2023 20:59-0400 SaO2% (BldA) [Mass fraction] 98 % James Kaushik [facility] 11-28-2023 20:59-0400 Systolic blood pressure 115 mm[Hg] James Kaushik [facility] 11-28-2023 19:08-0400 Body temperature 97.52 [degF] James Kaushik [facility] 11-28-2023 19:08-0400 Diastolic blood pressure 80 mm[Hg] James Kaushik [facility] 11-28-2023 19:08-0400 Heart rate 95 /min James Kaushik [facility] 11-28-2023 19:08-0400 Respiratory rate 16 /min James Kaushik [facility] 11-28-2023 19:08-0400 SaO2% (BldA) [Mass fraction] 97 % James Kaushik [facility] 11-28-2023 19:08-0400 Systolic blood pressure 140 mm[Hg] James Faulkner [facility] 09-22-2023 09:19-0400 Blood Pressure Location Irasema Zacarias [facility] 09-22-2023 09:19-0400 Body temperature 98.06 [degF] Irasema Zacarias [facility] 09-22-2023 09:19-0400 Diastolic blood pressure 76 mm[Hg] Irasema Zacarias [facility] 09-22-2023 09:19-0400 Heart rate 78 /min Irasema Zacarias [facility] 09-22-2023 09:19-0400 SaO2% (BldA) [Mass fraction] 97 % Irasema Zacarias [facility] 09-22-2023 09:19-0400 Systolic blood pressure 118 mm[Hg] Irasema Zacarias [facility] 07-25-2023 21:05-0400 Diastolic blood pressure 69 mm[Hg] Daron George [facility] 07-25-2023 21:05-0400 Heart rate 80 /min Daron George [facility] 07-25-2023 21:05-0400 Respiratory rate 18 /min Daron George [facility] 07-25-2023 21:05-0400 SaO2% (BldA) [Mass fraction] 96 % Daron George [facility] 07-25-2023 21:05-0400 Systolic blood pressure 103 mm[Hg] Daron George [facility] 07-25-2023 18:32-0400 Body temperature 97.7 [degF] Daron George [facility] 07-25-2023 18:32-0400 Diastolic blood pressure 89 mm[Hg] Daron George [facility] 07-25-2023 18:32-0400 Heart rate 83 /min Daron George [facility] 07-25-2023 18:32-0400 Respiratory rate 18 /min Daron George [facility] 07-25-2023 18:32-0400 SaO2% (BldA) [Mass fraction] 96 % Daron George [facility] 07-25-2023 18:32-0400 Systolic blood pressure 131 mm[Hg] Daron George [facility] 07-01-2023 12:05-0500 Blood Pressure Location WILLIE GALINDO [facility] 07-01-2023 12:05-0500 Body temperature 97.88 [degF] WILLIE GALINDO [facility] 07-01-2023 12:05-0500 Diastolic blood pressure 82 mm[Hg] WILLIE GALINDO [facility] 07-01-2023 12:05-0500 Heart rate 90 /min WILLIE GALINDO [facility] 07-01-2023 12:05-0500 Respiratory rate 16 /min WILLIE GALINDO [facility] 07-01-2023 12:05-0500 SaO2% (BldA) [Mass fraction] 97 % WILLIE GALINDO [facility] 07-01-2023 12:05-0500 Systolic blood pressure 110 mm[Hg] WILLIE GALINDO [facility] 05-20-2023 09:22-0500 Blood Pressure Location Aicha Dean [facility] 05-20-2023 09:22-0500 Body temperature 98.24 [degF] Aicha Dean [facility] 05-20-2023 09:22-0500 Diastolic blood pressure 70 mm[Hg] Aicha Dean [facility] 05-20-2023 09:22-0500 Heart rate 91 /min Aicha Dean [facility] 05-20-2023 09:22-0500 Respiratory rate 18 /min Aicha Dean [facility] 05-20-2023 09:22-0500 SaO2% (BldA) [Mass fraction] 97 % Aicha Dean [facility] 05-20-2023 09:22-0500 Systolic blood pressure 116 mm[Hg] Aicha Dean [facility] 04-06-2023 15:30-0500 Diastolic blood pressure 95 mm[Hg] James Faulkner [facility] 04-06-2023 15:30-0500 Heart rate 100 /min James Faulkner [facility] 04-06-2023 15:30-0500 Mean blood pressure 112 mm[Hg] James Faulkner [facility] 04-06-2023 15:30-0500 Respiratory rate 18 /min James Kaushik [facility] 04-06-2023 15:30-0500 SaO2% (BldA) [Mass fraction] 99 % James Kaushik [facility] 04-06-2023 15:30-0500 Systolic blood pressure 146 mm[Hg] James Kaushik [facility] 04-06-2023 13:57-0500 gluc 142 mg/dL James Kaushik [facility] 04-06-2023 13:57-0500 gluc Jamesnithin Faulkner [facility] 04-06-2023 13:50-0500 Body temperature 98.42 [degF] James Faulkner [facility] 04-06-2023 13:50-0500 Diastolic blood pressure 80 mm[Hg] James Kaushik [facility] 04-06-2023 13:50-0500 Heart rate 108 /min James Kaushik [facility] 04-06-2023 13:50-0500 Respiratory rate 18 /min James Kaushik [facility] 04-06-2023 13:50-0500 SaO2% (BldA) [Mass fraction] 96 % James Kaushik [facility] 04-06-2023 13:50-0500 Systolic blood pressure 123 mm[Hg] James Kaushik [facility] 03-19-2023 17:00-0500 Diastolic blood pressure 55 mm[Hg] James Kaushik [facility] 03-19-2023 17:00-0500 Heart rate 77 /min James Kaushik [facility] 03-19-2023 17:00-0500 Mean blood pressure 71 mm[Hg] James Kaushik [facility] 03-19-2023 17:00-0500 Respiratory rate 16 /min James Kaushik [facility] 03-19-2023 17:00-0500 Systolic blood pressure 103 mm[Hg] James Kaushik [facility] 03-19-2023 16:00-0500 Diastolic blood pressure 57 mm[Hg] James Kaushik [facility] 03-19-2023 16:00-0500 Heart rate 68 /min Jamesnithin Faulkner [facility] 03-19-2023 16:00-0500 Mean blood pressure 75 mm[Hg] James Kaushik [facility] 03-19-2023 16:00-0500 SaO2% (BldA) [Mass fraction] 96 % James Kaushik [facility] 03-19-2023 13:39-0500 Body temperature 98.24 [degF] James Kaushik [facility] 03-19-2023 13:39-0500 Diastolic blood pressure 74 mm[Hg] James Faulkner [facility] 03-19-2023 13:39-0500 Heart rate 74 /min James Kaushik [facility] 03-19-2023 13:39-0500 Respiratory rate 18 /min Jamesnithin Faulkner [facility] 03-19-2023 13:39-0500 SaO2% (BldA) [Mass fraction] 97 % James Faulkner [facility] 03-19-2023 13:39-0500 Systolic blood pressure 112 mm[Hg] James Faulkner [facility] 03-14-2023 16:19-0500 Blood Pressure Location ANNABEL DAVID [facility] 03-14-2023 16:19-0500 Body temperature 97.88 [degF] ANNABEL DAVID [facility] 03-14-2023 16:19-0500 Diastolic blood pressure 80 mm[Hg] ANNABEL DAVID [facility] 03-14-2023 16:19-0500 Heart rate 90 /min ANNABEL DAVID [facility] 03-14-2023 16:19-0500 Respiratory rate 20 /min ANNABEL DAVID [facility] 03-14-2023 16:19-0500 SaO2% (BldA) [Mass fraction] 98 % ANNABEL DAVID [facility] 03-14-2023 16:19-0500 Systolic blood pressure 136 mm[Hg] ANNABEL DAVID [facility] 12-21-2022 12:57-0400 Blood Pressure Location Irasema Quirozler [facility] 12-21-2022 12:57-0400 Body temperature 97.34 [degF] Irasema Missler [facility] 12-21-2022 12:57-0400 Diastolic blood pressure 78 mm[Hg] Irasema Missler [facility] 12-21-2022 12:57-0400 Heart rate 80 /min Irasema Missler [facility] 12-21-2022 12:57-0400 SaO2% (BldA) [Mass fraction] 98 % Irasema [facility] [facility] 12-21-2022 12:57-0400 Systolic blood pressure 116 mm[Hg] Irasema Zacarias [facility] 10-21-2022 18:30-0400 Diastolic blood pressure 85 mm[Hg] Roshan Janak [facility] 10-21-2022 18:30-0400 Heart rate 63 /min Roshan Janak [facility] 10-21-2022 18:30-0400 Mean blood pressure 98 mm[Hg] Roshan Janak [facility] 10-21-2022 18:30-0400 Respiratory rate 17 /min Roshan Janak [facility] 10-21-2022 18:30-0400 SaO2% (BldA) [Mass fraction] 96 % Roshan Janak [facility] 10-21-2022 18:30-0400 Systolic blood pressure 123 mm[Hg] Roshan Janak [facility] 10-21-2022 18:00-0400 Diastolic blood pressure 86 mm[Hg] Roshan Janak [facility] 10-21-2022 18:00-0400 Heart rate 71 /min Roshan Janak [facility] 10-21-2022 18:00-0400 Respiratory rate 18 /min Roshan Janak [facility] 10-21-2022 18:00-0400 SaO2% (BldA) [Mass fraction] 99 % Roshan Janak [facility] 10-21-2022 18:00-0400 Systolic blood pressure 122 mm[Hg] Roshan Briceno [facility] 10-21-2022 17:00-0400 Heart rate 73 /min Roshan Briceno [facility] 10-21-2022 17:00-0400 Mean blood pressure 100 mm[Hg] Roshan Briceno [facility] 10-21-2022 17:00-0400 SaO2% (BldA) [Mass fraction] 98 % Roshan Briceno [facility] 10-21-2022 17:00-0400 Systolic blood pressure 127 mm[Hg] Roshan Briceno [facility] 10-21-2022 15:58-0400 Body temperature 98.06 [degF] Roshan Briceno [facility] 10-21-2022 15:58-0400 Heart rate 74 /min Roshan Briceno [facility] 08-18-2022 11:00-0400 Body height 175.26 cm Michael Guzman Other [employer] Other 08-18-2022 11:00-0400 Body mass index (BMI) [Ratio] 44.89 kg/m2 Michael Guzman Other [employer] Other 08-18-2022 11:00-0400 Body weight 137.89 kg Michael Guzman Other [employer] Other 08-18-2022 11:00-0400 Diastolic blood pressure 85 mm[Hg] Michael Guzman Other [employer] Other 08-18-2022 11:00-0400 Systolic blood pressure 125 mm[Hg] Michael Guzman Other [employer] Other 05-23-2022 09:46-0500 Diastolic blood pressure 65 mm[Hg] [facility] 05-23-2022 09:46-0500 Heart rate 90 /min [facility] 05-23-2022 09:46-0500 Mean blood pressure 77 mm[Hg] [facility] 05-23-2022 09:46-0500 Respiratory rate 18 /min [facility] 05-23-2022 09:46-0500 SaO2% (BldA) [Mass fraction] 95 % [facility] 05-23-2022 09:46-0500 Systolic blood pressure 101 mm[Hg] [facility] 05-23-2022 09:07-0500 Diastolic blood pressure 62 mm[Hg] [facility] 05-23-2022 09:07-0500 Heart rate 92 /min [facility] 05-23-2022 09:07-0500 Mean blood pressure 76 mm[Hg] [facility] 05-23-2022 09:07-0500 Respiratory rate 18 /min [facility] 05-23-2022 09:07-0500 SaO2% (BldA) [Mass fraction] 96 % [facility] 05-23-2022 09:07-0500 Systolic blood pressure 105 mm[Hg] [facility] 05-23-2022 08:00-0500 Diastolic blood pressure 69 mm[Hg] [facility] 05-23-2022 08:00-0500 Heart rate 96 /min [facility] 05-23-2022 08:00-0500 Mean blood pressure 83 mm[Hg] [facility] 05-23-2022 08:00-0500 Systolic blood pressure 111 mm[Hg] [facility] 05-23-2022 07:26-0500 [facility]22 06:50-0500 Body temperature 98.96 [degF] [facility] 03-31-2022 14:25-0500 Body weight 134.72 kg Kimberly Velazquez MD Work Phone: [facility] 03-31-2022 14:25-0500 Diastolic blood pressure 89 mm[Hg] Kimberly Velazquez MD Work Phone: [facility] 03-31-2022 14:25-0500 Heart rate 84 /min Kimberly Velazquez MD Work Phone: [facility] 03-31-2022 14:25-0500 Systolic blood pressure 125 mm[Hg] Kimberly Velazquez MD Work Phone: [facility] 12-31-2021 21:59-0400 Diastolic blood pressure 78 mm[Hg] Daniel Logan [facility] 12-31-2021 21:59-0400 Heart rate 90 /min Daniel Logan [facility] 12-31-2021 21:59-0400 Hourly Rounding Daniel Logan [facility] 12-31-2021 21:59-0400 Nursing Progress Note Reason Other: Pt resting on cart. Denies any needs at this time. Daniel Logan [facility] 12-31-2021 21:59-0400 Respiratory rate 18 /min Daniel Logan [facility] 12-31-2021 21:59-0400 SaO2% (BldA) [Mass fraction] 97 % Daniel Logan [facility] 12-31-2021 21:59-0400 Systolic blood pressure 126 mm[Hg] Daniel Logan [facility] 12-31-2021 20:59-0400 Diastolic blood pressure 74 mm[Hg] Daniel Logan [facility] 12-31-2021 20:59-0400 Heart rate 102 /min Daniel Logan [facility] 12-31-2021 20:59-0400 Hourly Rounding Daniel Logan [facility] 12-31-2021 20:59-0400 Nursing Progress Note Reason Other: Pt mediciated per orders. Denies any needs at this time. Daniel Logan [facility] 12-31-2021 20:59-0400 Respiratory rate 18 /min Daniel Logan [facility] 12-31-2021 20:59-0400 SaO2% (BldA) [Mass fraction] 98 % Daniel Logan [facility] 12-31-2021 20:59-0400 Systolic blood pressure 113 mm[Hg] Daniel Logan [facility] 12-31-2021 19:50-0400 Body temperature 98.6 [degF] Daniel Logan [facility] 12-31-2021 19:50-0400 Diastolic blood pressure 77 mm[Hg] Daniel Logan [facility] 12-31-2021 19:50-0400 Heart rate 99 /min Daniel Logan [facility] 12-31-2021 19:50-0400 Respiratory rate 18 /min Daniel Logan [facility] 12-31-2021 19:50-0400 SaO2% (BldA) [Mass fraction] 98 % Daniel Logan [facility] 12-31-2021 19:50-0400 Systolic blood pressure 121 mm[Hg] Daniel Logan [facility] 12-25-2021 00:47-0400 Diastolic blood pressure 90 mm[Hg] Kaylinn Dokken [facility] 12-25-2021 00:47-0400 Heart rate 74 /min Kaylinn Dokken [facility] 12-25-2021 00:47-0400 Nursing Progress Note Reason Other: pt states pain tolerable at this time. a&o x4, resp euqual and non labored, denies needs Kaylinn Dokken [facility] 12-25-2021 00:47-0400 Respiratory rate 16 /min Kaylinn Dokken [facility] 12-25-2021 00:47-0400 SaO2% (BldA) [Mass fraction] 98 % Kaylinn Dokken [facility] 12-25-2021 00:47-0400 Systolic blood pressure 137 mm[Hg] Kaylinn Dokken [facility] 12-24-2021 23:00-0400 Nursing Progress Note Reason Other: pt out of dept for ct Kaylinn Dokken [facility] 12-24-2021 21:36-0400 Body temperature 98.24 [degF] Kaylinn Dokken [facility] 12-24-2021 21:36-0400 Diastolic blood pressure 87 mm[Hg] Kaylinn Dokken [facility] 12-24-2021 21:36-0400 Heart rate 93 /min Kaylinn Dokken [facility] 12-24-2021 21:36-0400 Respiratory rate 18 /min Celena Dias [facility] 12-24-2021 21:36-0400 SaO2% (BldA) [Mass fraction] 97 % [facility] 12-24-2021 21:36-0400 Systolic blood pressure 141 mm[Hg] Celena Dias [facility] 11-11-2021 08:51-0400 Body height 175.26 cm James Viktor Rodriguez Work Phone: [facility] Work Phone: 11-11-2021 08:51-0400 Body mass index (BMI) [Ratio] 44.15 kg/m2 James V Masnyj Work Phone: [facility] Work Phone: 11-11-2021 08:51-0400 Body surface area Derived from formula 2.45 m2 James V Camilanyj Work Phone: [facility] Work Phone: 11-11-2021 08:51-0400 Body weight 135.63 kg James V Camilanyj Work Phone: [facility] Work Phone: 11-03-2021 13:13-0400 Blood Pressure Location Lacey LAZO [facility] 11-03-2021 13:13-0400 Body temperature 97.52 [degF] Lacey LAZO [facility] 11-03-2021 13:13-0400 Diastolic blood pressure 74 mm[Hg] Lacey GUTIERRESEL [facility] 11-03-2021 13:13-0400 Heart rate 80 /min Lacey GUTIERRESEL [facility] 11-03-2021 13:13-0400 SaO2% (BldA) [Mass fraction] 98 % Lacey SPETTEL [facility] 11-03-2021 13:13-0400 Systolic blood pressure 116 mm[Hg] Lacey SPETTEL [facility] 11-01-2021 22:00-0400 Blood Pressure Location Kaylinn Dokken [facility] 11-01-2021 22:00-0400 Diastolic blood pressure 72 mm[Hg] Kaylinn Dokken [facility] 11-01-2021 22:00-0400 Heart rate 80 /min Kaylinn Dokken [facility] 11-01-2021 22:00-0400 Hourly Rounding Kaylinn Dokken [facility] Comment on above: Result Comment: Patient is ready to go h ome. 11-01-2021 22:00-0400 Mean blood pressure 86 mm[Hg] Kaylinn Dokken [facility] 11-01-2021 22:00-0400 Respiratory rate 18 /min Kaylinn Dokken [facility] 06-26-2022 22:00-0400 SaO2% (BldA) [Mass fraction] 98 % Kaylinn Dokken [facility] 11-01-2021 22:00-0400 Systolic blood pressure 114 mm[Hg] Kaylinn Dokken [facility] 11-01-2021 21:00-0400 Diastolic blood pressure 74 mm[Hg] Kaylinn Dokken [facility] 11-01-2021 21:00-0400 Heart rate 86 /min Kaylinn Dokken [facility] 11-01-2021 21:00-0400 Hourly Rounding Kaylinn Dokken [facility] 11-01-2021 21:00-0400 Mean blood pressure 89 mm[Hg] Kaylinn Dokken [facility] 11-01-2021 21:00-0400 Respiratory rate 20 /min Kaylinn Dokken [facility] 11-01-2021 21:00-0400 SaO2% (BldA) [Mass fraction] 97 % Kaylinn Dokken [facility] 11-01-2021 21:00-0400 Systolic blood pressure 120 mm[Hg] Kaylinn Dokken [facility] 11-01-2021 19:07-0400 Body temperature 97.88 [degF] Kaylinn Dokken [facility] 11-01-2021 19:07-0400 Diastolic blood pressure 78 mm[Hg] Kaylinn Dokken [facility] 11-01-2021 19:07-0400 Heart rate 90 /min Kaylinn Dokken [facility] 11-01-2021 19:07-0400 Respiratory rate 17 /min Celena Dias [facility] 11-01-2021 19:07-0400 SaO2% (BldA) [Mass fraction] 96 % Celena Dias [facility] 11-01-2021 19:07-0400 Systolic blood pressure 116 mm[Hg] Celena Dias [facility] 08-25-2021 14:41-0400 Blood Pressure Location [facility] 08-25-2021 14:41-0400 Diastolic blood pressure 68 mm[Hg] [facility] 08-25-2021 14:41-0400 Heart rate 86 /min [facility] 08-25-2021 14:41-0400 Respiratory rate 16 /min [facility] 08-25-2021 14:41-0400 SaO2% (BldA) [Mass fraction] 99 % [facility] 08-25-2021 14:41-0400 Systolic blood pressure 120 mm[Hg] [facility] Encounters Encounter Date Encounter Type Care Provider Facility Start: 08-14-2025 ambulatory Irasema Zacarias Facility:[facility] Start: 01-23-2025 End: 01-23-2025 Bamboo flowsheet Nery PAPPAS Work Phone: [facility] Start: 01-23-2025 End: 01-23-2025 Bamboo flowsheet Nery PAPPAS Work Phone: [facility] Start: 01-23-2025 End: 01-23-2025 Patient encounter procedure Nery PAPPAS Work Phone: [facility] Work Phone: Start: 01-23-2025 End: 01-23-2025 Periodic preventive med est patient 18-39 yrs Nery PAPPAS Work Phone: [facility] Comment on above: Well woman exam with routine gynecological exam; UTI symptoms Start: 12-29-2024 End: 12-31-2024 Refill Edmundo Devlin MD Work Phone: Endocrinology Comment on above: Refill Request Start: 12-17-2024 End: 12-17-2024 ambulatory Irasema Zacarias Facility:[facility] Start: 12-11-2024 End: 12-11-2024 ambulatory Irasema Zacarias Facility:[facility] Start: 12-11-2024 End: 12-11-2024 Patient encounter procedure Irasema Zacarias [facility] Start: 12-06-2024 End: 12-06-2024 Emergency department patient visit Roshan Briceno Facility:[facility] Start: 11-14-2024 End: 11-14-2024 ambulatory Irasema Zacarias Facility:[facility] Start: 11-14-2024 End: 11-14-2024 Patient encounter procedure Irasema Zacarias [facility] Start: 10-15-2024 End: 10-15-2024 Refill Edmundo Devlin MD Work Phone: Endocrinology Comment on above: Refill Request Start: 09-26-2024 End: 09-26-2024 ambulatory Lucia Gorman Facility:[facility] Start: 09-26-2024 End: 09-26-2024 Patient encounter procedure Lucia Gorman [facility] Start: 09-25-2024 ambulatory BIAS MACHINE OPERATOR-C Irasema Zacarias Facility:[facility] Start: 09-24-2024 End: 09-24-2024 ambulatory Lucia Gorman Facility:[facility] Start: 09-24-2024 End: 09-24-2024 Lab Drop off Lucia Gorman [facility] Start: 09-24-2024 End: 09-24-2024 ambulatory BIAS MACHINE OPERATOR-C Irasema Zacarias Facility:[facility] Start: 09-24-2024 End: 09-24-2024 Patient encounter procedure Irasema Zacarias [facility] Start: 09-24-2024 End: 09-24-2024 ambulatory Lucia Gorman Facility:[facility] Start: 09-24-2024 End: 09-24-2024 Patient encounter procedure Lucia Gorman [facility] Start: 09-12-2024 End: 09-12-2024 ambulatory Lucia Gorman Facility:[facility] Start: 09-04-2024 End: 09-04-2024 ambulatory Irasema Zacarias Facility:[facility] Start: 08-27-2024 End: 08-27-2024 Bamboo flowsheet Abby PAPPAS Work Phone: [facility] Start: 08-27-2024 End: 08-27-2024 Bamboo flowsheet Abby PAPPAS Work Phone: [facility] Start: 08-27-2024 End: 08-27-2024 Office outpatient visit 15 minutes Abby PAPPAS Work Phone: [facility] Comment on above: Migraine without aur a and without status migrainosus, not intractable (CMS/HCC) (Primary Dx); Hemicrania continua; IIH (idiopathic intracranial hypertension); Obesity, unspecified obesity severity, unspecified obesity type; Other chronic pain Start: 08-27-2024 End: 08-27-2024 ambulatory ABBY ACEVEDO Not Available Start: 08-24-2024 ambulatory Irasema Zacarias Facility:[facility] Start: 08-15-2024 End: 08-15-2024 ambulatory Irasema Zacarias Facility:[facility] Start: 08-15-2024 End: 08-15-2024 Patient encounter procedure Irasema Zacarias [facility] Start: 08-14-2024 End: 08-14-2024 ambulatory Irasema Zacarias Facility:[facility] Start: 08-01-2024 End: 08-01-2024 Emergency department patient visit James Faulkner [facility] Start: 07-16-2024 End: 07-16-2024 Refill Keyla Gusman NP Work Phone: [facility] Comment on above: Other chronic pain Start: 06-29-2024 End: 06-29-2024 Emergency department patient visit Daron George [facility] Start: 06-29-2024 End: 06-29-2024 Telephone encounter Edmundo Devlin MD Work Phone: Endocrinology & [facility] [place] Comment on above: Medication Preauthor ization (Mounjaro 5 mg approved) Start: 06-20-2024 End: 06-20-2024 Telephone encounter Edmundo Devlin MD Work Phone: Endocrinology Comment on above: Insurance Authorizat ion (Denial - tirzepatide (MOUNJARO) 2.5 mg/0.5 mL pen injector) Start: 06-19-2024 End: 06-19-2024 Telephone encounter Edmundo Devlin MD Work Phone: Endocrinology Comment on above: Insurance Authorizat ion (tirzepatide (MOUNJARO) 2.5 mg/0.5 mL pen injector) Medication Preauthor ization (Mounjaro 5mg) Start: 06-18-2024 End: 06-18-2024 Office outpatient visit 15 minutes Keyla Gusman BANQUET STEWARD Work Phone: [facility] Comment on above: Migraine without aur a and without status migrainosus, not intractable (CMS/HCC) (Primary Dx); Obesity, unspecified obesity severity, unspecified obesity type; Other chronic pain; IIH (idiopathic intracranial hypertension) Start: 06-18-2024 End: 06-18-2024 ambulatory KEYLA GUSMAN Not Available Start: 06-18-2024 End: 06-19-2024 Refill Keyla Gusman NP Work Phone: [facility] Comment on above: Other chronic pain Start: 06-11-2024 End: 06-11-2024 ambulatory [place] Start: 06-06-2024 End: 06-07-2024 ambulatory Edmundo Devlin MD Work Phone: Endocrinology Comment on above: Mounjaro 5 mg Start: 06-05-2024 End: 06-07-2024 Telephone encounter Edmundo Devlin MD Work Phone: Endocrinology Comment on above: Insurance Authorizat ion Start: 06-01-2024 End: 06-01-2024 ambulatory Edmundo Devlin MD Work Phone: Endocrinology Comment on above: Type 2 diabetes srikanth itus without complication, without long- term current use of insulin (HCC) (Primary Dx); Class 3 severe obesity with serious comorbidity and body mass index (BMI) of 40.0 to 44.9 in adult, unspecified obesity type (HCC) Start: 06-01-2024 End: 06-01-2024 Telemedicine consultation with patient Edmundo Devlin MD Work Phone: Endocrinology Start: 05-22-2024 End: 05-22-2024 ambulatory Devon Calle Facility:[facility] Start: 05-22-2024 End: 05-22-2024 Patient encounter procedure Devon Calle [facility] Start: 05-22-2024 End: 05-23-2024 Pre-admission assessment Kanu KITCHEN [facility] Start: 05-14-2024 End: 05-15-2024 Refill Keyla Gusman BANQUET STEWARD Work Phone: [facility] Comment on above: Other chronic pain Start: 04-30-2024 End: 05-03-2024 ambulatory Edmundo Devlin MD Work Phone: Endocrinology Comment on above: Mounjaro Start: 03-29-2024 End: 03-29-2024 Bamboo flowsheet Keyla Gusman BANQUET STEWARD Work Phone: [facility] Start: 03-29-2024 End: 03-29-2024 Bamboo flowsheet Keyla Gusman BANQUET STEWARD Work Phone: [facility] Start: 03-29-2024 End: 03-29-2024 Office outpatient visit 15 minutes Keyla Gusman BANQUET STEWARD Work Phone: [facility] Comment on above: Migraine without aur a and without status migrainosus, not intractable (CMS/HCC) (Primary Dx); IIH (idiopathic intracranial hypertension); Obesity, unspecified obesity severity, unspecified obesity type; Other chronic pain Start: 03-29-2024 End: 03-29-2024 ambulatory KEYLA GUSMAN Not Available Start: 03-23-2024 End: 03-23-2024 ambulatory WILLIE GALINDO Facility:[facility] Start: 03-23-2024 End: 03-23-2024 Patient encounter procedure WILLIE GALINDO [facility] [place] Start: 03-21-2024 End: 03-21-2024 Refill Edmundo Devlin MD Work Phone: Endocrinology Comment on above: Refill Request Start: 03-18-2024 End: 03-19-2024 Refill Keyla Gusman NP Work Phone: [facility] Comment on above: Other chronic pain Start: 03-02-2024 End: 03-02-2024 Emergency department patient visit James BeckerLourdes Faulkner [facility] Start: 02-28-2024 End: 02-28-2024 ambulatory Devon Calle Facility:[facility] Start: 02-28-2024 End: 02-28-2024 Lab Drop off Devon Calle [facility] Start: 02-28-2024 End: 02-28-2024 ambulatory Devon Calle Facility:[facility] Start: 02-28-2024 End: 02-28-2024 Patient encounter procedure Devon Calle [facility] Start: 01-23-2024 End: 01-23-2024 Bamboo flowsheet Nery PAPPAS Work Phone: [facility] Start: 01-23-2024 End: 01-27-2024 Bamboo flowsheet Nery PAPPAS Work Phone: [facility] Start: 01-23-2024 End: 01-27-2024 Clinisync Result Encounter Nery PAPPAS Work Phone: [facility] Department Unsolicited Start: 01-23-2024 End: 01-23-2024 Refill Keyla Gusman NP Work Phone: [facility] Comment on above: Other chronic pain Start: 01-23-2024 End: 01-23-2024 ambulatory NERY CARVER Not Available Start: 01-23-2024 End: 01-23-2024 Patient encounter procedure Nery PAPPAS Work Phone: [facility] Work Phone: Start: 01-23-2024 End: 01-23-2024 Periodic preventive med est patient 18-39 yrs Nery Wen PAPPAS Work Phone: [facility] Comment on above: Well woman exam with routine gynecological exam Start: 01-16-2024 End: 01-16-2024 Telephone encounter Ramin Hanson MA [facility] Start: 01-13-2024 End: 01-13-2024 ambulatory KYUNG PAUL Facility:[facility] Start: 01-13-2024 End: 01-13-2024 Patient encounter procedure KYUNG PAUL [facility] Start: 01-05-2024 End: 01-05-2024 ambulatory Daron Hernandez Facility:[facility] Start: 01-05-2024 End: 01-05-2024 Patient encounter procedure Daron Hernandez [facility] [place] Start: 01-02-2024 End: 01-02-2024 Office outpatient visit 15 minutes Keyla Gusman NP Work Phone: [facility] Comment on above: Migraine without aur a and without status migrainosus, not intractable (CMS/HCC) (Primary Dx); IIH (idiopathic intracranial hypertension); Obesity, unspecified obesity severity, unspecified obesity type; Other chronic pain; Hemicrania continua Start: 01-02-2024 End: 01-02-2024 ambulatory KEYLA GUSMAN Not Available Start: 01-02-2024 End: 01-02-2024 Bamboo flowsheet Keyla Gusman BANQUET STEWARD Work Phone: [facility] Start: 01-02-2024 End: 01-02-2024 Bamboo flowsheet Keyla Gusman BANQUET STEWARD Work Phone: [facility] Start: 12-26-2023 End: 12-26-2023 ambulatory NERY WEN Not Available Start: 12-21-2023 End: 12-21-2023 Admission to same day surgery center Daron Hernandez [facility] Start: 12-21-2023 ambulatory Daron Hernandez Facilit y:[facility] Start: 12-16-2023 End: 12-16-2023 ambulatory Daron Hernandez Facility:[facility] Start: 12-16-2023 End: 12-16-2023 Patient encounter procedure Daron Hernandez [facility] Start: 12-09-2023 End: 12-09-2023 ambulatory Daron Hernandez Facility:[facility] Start: 12-09-2023 End: 12-09-2023 Patient encounter procedure Daron Hernandez [facility] Start: 12-06-2023 End: 12-06-2023 ambulatory NERY JOHNSONEY Not Available Start: 12-06-2023 ambulatory BIAS MACHINE OPERATOR-C Irasema Zacarias Facility:[facility] Start: 12-02-2023 End: 12-02-2023 ambulatory Daron Hernandez Facility:[facility] Start: 12-02-2023 End: 12-02-2023 Patient encounter procedure Daron Hernandez [facility] Start: 12-01-2023 End: 12-01-2023 ambulatory NERY WEN Not Available Start: 11-30-2023 End: 11-30-2023 ambulatory NERY WEN Not Available Start: 11-29-2023 End: 11-29-2023 Emergency department patient visit Celena Dias [facility] Start: 11-28-2023 End: 11-28-2023 Emergency department patient visit James Dorothy Faulkner [facility] Start: 11-25-2023 ambulatory BIAS MACHINE OPERATOR-C Irasema Zacarias Facility:[facility] Start: 11-23-2023 End: 11-23-2023 ambulatory NERY CARVER Not Available Start: 11-01-2023 End: 11-01-2023 ambulatory JOHN Ramos YUEBernadette Facility:[facility] Start: 10-26-2023 Refill Edmundo valdez MD Work Phone: Endocrinology Comment on above: Refill Request Start: 10-17-2023 End: 10-17-2023 Patient encounter procedure Irasema Zacarias [facility] Start: 10-11-2023 End: 10-11-2023 ambulatory MICHAELA MOONOLL Not Available Start: 09-22-2023 End: 09-22-2023 Patient encounter procedure Irasema Zacarias [facility] Start: 09-22-2023 End: 09-22-2023 Well adult monitoring check done Irasema Zacarias [facility] Start: 08-30-2023 End: 08-30-2023 ambulatory KEYLA GUSMAN Not Available Start: 08-26-2023 ambulatory Edmundo valdez MD Work Phone: Endocrinology Comment on above: Mounjaro 5 mg Start: 07-25-2023 End: 07-25-2023 Emergency department patient visit Daron George [facility] Start: 07-06-2023 End: 07-06-2023 ambulatory EDMUNDO DEVLIN Facility:[facility] Start: 07-01-2023 End: 07-01-2023 Patient encounter procedure WILLIE GALINDO [facility] Start: 06-03-2023 End: 06-03-2023 Patient encounter procedure Aicha Dean [facility] Start: 05-20-2023 End: 05-20-2023 Lab Drop off Irasemapita Zacarias [facility] Start: 05-20-2023 End: 05-20-2023 Patient encounter procedure Aicha Dean [facility] Start: 04-06-2023 End: 04-06-2023 Emergency department patient visit James Faulkner [facility] Start: 03-19-2023 End: 03-19-2023 Emergency department patient visit James Faulkner [facility] Start: 03-14-2023 End: 03-14-2023 Patient encounter procedure ANNABEL HERNANDEZ [facility] Start: 12-21-2022 End: 12-21-2022 Patient encounter procedure Irasemapita Zacarias [facility] Start: 12-21-2022 End: 12-21-2022 Well adult monitoring check done Irasemapita Zacarias [facility] Start: 10-29-2022 End: 10-29-2022 ambulatory Michael Scovanner Other [employer] Other Start: 10-29-2022 Office outpatient vi sit 15 minutes Michael Guzman [facility] Start: 10-28-2022 End: 10-28-2022 ambulatory Michael Guzman Other [employer] Other Start: 10-28-2022 Telephone encounter Michael Valdes [facility] Start: 10-22-2022 End: 10-22-2022 Lab Drop off Roshan Briceno [facility] Start: 10-21-2022 End: 10-21-2022 Emergency department patient visit Roshan Briceno [facility] Start: 09-13-2022 [facility] [place] Comment on above: Smoking Cessation Start: 09-10-2022 End: 09-10-2022 [facility] Susan Garcia PhD Work Phone: Endocrinology [facility] Comment on above: Psychological factor s affecting morbid obesity (HCC) (Primary Dx); Tobacco use disorder Start: 08-18-2022 End: 08-18-2022 ambulatory Michael Guzman Other [employer] Other Start: 08-18-2022 Office outpatient vi sit 15 minutes Michael Guzman [facility] Gastroenterology Start: 07-22-2022 Reflinda westbrook MD Work Phone: Endocrinology Start: 06-24-2022 [...] with patient Kimberly Velazquez MD Work Phone: [facility] Start: 06-21-2022 Telephone encounter Kimberly gonzales MD Work Phone: Endocrinology Comment on above: Prep for virtual vis it Start: 05-27-2022 Refill Kimberly westbrook MD Work Phone: Endocrinology Start: 05-23-2022 End: 05-23-2022 Emergency department patient visit Judith Delacruz [facility] Start: 05-11-2022 Refill Kimberly westbrook MD Work Phone: Endocrinology Start: 03-31-2022 End: 03-31-2022 Patient encounter procedure Kimberly Velazquez MD Work Phone: Endocrinology Comment on above: Abnormal glucose (Pr imary Dx); Class 3 severe obesity due to excess calories with serious comorbidity and body mass index (BMI) of 40.0 to 44.9 in adult ([facility]); PCOS (polycystic ovarian syndrome) Start: 02-11-2022 End: 02-11-2022 Off-Site SAUD BLUM [facility] [place] Start: 12-31-2021 End: 12-31-2021 Emergency department patient visit Daniel Ford [facility] Start: 12-24-2021 End: 12-25-2021 Emergency department patient visit Celena Dias [facility] Start: 12-18-2021 Chart Update James walls Work Phone: [facility] Work Phone: Start: 11-24-2021 End: 11-24-2021 Lab Drop off Nerissabethany Rivera [facility] Start: 11-11-2021 Office outpatient ne w 60 minutes James Rodriguez Work Phone: [facility] Work Phone: Start: 11-03-2021 End: 11-03-2021 Patient encounter procedure Lacey LAZO [facility] Start: 11-01-2021 End: 11-01-2021 Emergency department patient visit Celena Harriet Arun [facility] Start: 10-23-2021 End: 10-23-2021 Patient encounter procedure Liz TellezLourdes Jo [facility] Start: 08-31-2021 End: 01-04-2022 Recurring Lacey LAZO [facility] Start: 08-25-2021 End: 08-25-2021 Lab Drop off Nerissa Rivera [facility] Start: 08-25-2021 End: 08-25-2021 Patient encounter procedure Nerisas Rivera [facility] [place] Start: 08-20-2021 End: 08-20-2021 Patient encounter procedure Lacey LAZO [facility] Start: 08-18-2021 Refill Mukund becker MD Work Phone: Pulmonary Medicine Comment on above: Refill Request Start: 08-18-2021 End: 08-18-2021 Patient encounter procedure Sharonda CORTEZ [facility] Start: 07-29-2021 End: 07-29-2021 Patient encounter procedure RAMÓN VALENTIN [facility] Start: 07-07-2021 End: 07-07-2021 Emergency department patient visit Kanu Rudolph Facility:[facility] Start: 07-06-2021 End: 07-06-2021 ambulatory Kem Marrero Annalisamaddie Facility:[facility] Start: 04-03-2021 End: 08-30-2021 Recurring Sharonda CORTEZ [facility] Start: 06-03-2017 End: 06-04-2017 Ambulatory SHAJI CHOE Facility:[facility] Start: 05-29-2017 End: 05-29-2017 Ambulatory ANTON HARMON Facility:[facility] Start: 05-25-2017 End: 05-25-2017 Ambulatory JAMESBEVERLY BLACKMON Facility:[facility] Procedures Date Procedure Procedure Detail Performing Clinician Start: 09-26-2024 Colonoscopy Lucia Gorman Start: 09-26-2024 Esophagogastroduodenoscopy Lucia smith Start: 01-23-2024 IGP,APTIMA HPV,AGE GDLN Nery PAPPAS Work Phone: Start: 01-23-2024 Cytp cerv/vag auto thin layer prep mnl screen Nery PAPPAS Work Phone: Start: 12-21-2023 Cyst of breast (disorder) Daron Hernandez Start: 01-05-2023 Microscopic observation [Identifier] in Cervix by Cyto stain Keyla Gusman NP Work Phone: Start: 03-31-2022 Hemoglobin A1c/Hemoglobin.total in Blood Kimberly Velazquez MD Work Phone: Start: 02-01-2018 Colonoscopy RAMÓN VALENTIN Start: 06-01-2016 EGD & Colonoscopy RAMÓN VALENTIN Start: 07-31-2014 EGD & Colooscopy RAMÓN VALENTIN Start: 04-28-2012 Colonoscopy RAMÓN VALENTIN Colonoscopy RAMÓN VALENTIN Comment on above: x2 with Dr. Velasco x2 with Dr. Velasco Decompression of lumbar spine RAMÓN VALENTIN laproscopy x3 RAMÓN VALENTIN Tonsillectomy RAMÓN VALETNIN Tonsillectomy Tonsillectomy( Confirmed ) RAMÓN VALENTIN Plan of Treatment Date Care Activity Detail Author Start: 11-03-2030 Urine microalbumin profile DTaP,Tdap,Td Vaccine (2 - Td or Tdap) [facility] Start: 01-06-2028 Screening for malign ant neoplasm of cervix [facility] Start: 01-23-2025 End: 01-23-2025 Patient encounter procedure 01/23/2025 10:00 AM EDT Office Visit [facility] B[facility] OB [address] [place] [address] Nery Carver PA [address] [place], [place] [id number] [facility] Start: 01-22-2025 Medicare Annual Wellness (AWV) Medicare Annual Wellness (AWV) [facility] Start: 01-07-2025 Influenza vaccination [facility] Start: 10-23-2024 End: 10-23-2024 Patient encounter procedure 10/23/2024 10:00 AM EDT Office Visit [facility]AYLEE COLUNGA [address] [place] [id number] Abby Acevedo PA [address] [place] [address] [facility] Start: 08-27-2024 End: 08-27-2024 Patient encounter procedure BAYLEE COLUNGA Comment on above: Arrived Start: 07-06-2024 Hepatitis B surface antibody level LDL Cholesterol [facility] Start: 06-18-2024 End: 06-18-2024 Patient encounter procedure 06/18/2024 3:00 PM EST Office Visit [facility] [address] [place] [address] Keyla Gusman NP [address] [place], [place] [id number] [facility] Start: 06-01-2024 End: 06-01-2024 ambulatory 06/01/2024 2:10 PM EST [facility] Endocr[facility] [address] [place] [address] Edmundo Devlin MD [address] [place] [address] weight management and diabetes Endocrinology Comment on above: weight management an d diabetes Start: 05-09-2024 Medicare Advantage Annual Wellness Visit Medicare Advantage Annual Wellness Visit [facility] Start: 03-29-2024 End: 03-29-2024 Patient encounter procedure [facility] Comment on above: Arrived Start: 01-23-2024 End: 01-23-2024 Patient encounter procedure 01/23/2024 10:00 AM EDT Office Visit [facility] [address] [phone] Nery Carver PA [address] [place] [address] [facility] Start: 01-08-2024 Covid-19 Vaccine ( season) Covid-19 Vaccine ( season) [facility] Start: 01-08-2024 Influenza vaccination C [facility] Start: 01-04-2024 Hemoglobin A1c measurement HbA1C [facility] Start: 01-02-2024 End: 01-02-2024 Patient encounter procedure 01/02/2024 4:20 PM EDT Office Visit [facility] [address] [place] [id number] Keyla Gusman, AMADA [address] [place] [id number] Arrived [facility] Comment on above: Arrived Start: 12-30-2023 Medicare Annual Wellness (AWV) Medicare Annual Wellness (AWV) [facility] Start: 12-05-2023 End: 12-05-2023 Patient encounter procedure 12/05/2023 10:10 AM EDT Office Visit Endocrinology [address] [place] [address] Edmundo Devlin MD [address] [place] [address] follow up Endocrinology Comment on above: follow up Start: 03-31-2023 3 comp foot exam completed DIABETIC FOOT EXAM [facility] Start: 03-31-2023 Diabetic foot examination Diabetic Foot Exam [facility] Start: 01-07-2023 Covid-19 Vaccine ( season) Covid-19 Vaccine ( season) [facility] Start: 01-07-2023 Influenza vaccination INFLUENZ A (Season Ended) [facility] Start: 10-11-2022 End: 12-11-2022 NICOTINE & METAB, UR NICOTINE & METAB, UR Lab Routine Tobacco use disorder Expected: 10/11/2022 (Approximate), Expires: 12/11/2022 [facility] Work Phone: Comment on above: Expected: 10/11/2022 (Approximate), Expires: 12/11/2022 Start: 10-11-2022 End: 12-11-2022 TOX SCREEN ROUT UR TOX SCREEN ROUT UR Lab Routine Psychological factors affecting morbid obesity (HCC) Expected: 10/11/2022 (Approximate), Expires: 12/11/2022 [facility] Work Phone: Comment on above: Expected: 10/11/2022 (Approximate), Expires: 12/11/2022 Start: 09-28-2022 Hemoglobin A1c/Hemoglobin.total in Blood HBA1C [facility] Start: 01-13-2022 DWAIN, Provider : Kerri Adkins, Status: Jayden, Time: 10:30 AM DWAIN, Provider: Kerri Adkins, Status: Jayden, Time: 10:30 AM [facility] Work Phone: Start: 01-07-2022 Influenza vaccination [facility] Start: 2015 HPV TESTING HPV TESTING [facility] Start: 2015 Screening for malign ant neoplasm of cervix HPV Testing [facility] Start: 12-23-2014 PAP TESTING PAP TESTING [facility] Start: 12-23-2014 Screening for malign ant neoplasm of cervix Pap Testing [facility] Start: 12-23-2012 Screening for malign ant neoplasm of cervix Cervical Cancer Screening [facility] Start: 2012 HPV Vaccine (1 - 3-d ose SCDM series) HPV Vaccine (1 - 3-dose SCDM series) [facility] Start: 04-30-2010 Hepatitis B surface antibody level LDL CHOLESTEROL [facility] Start: 2004 Hepatitis A Vaccine (1 of 2 - Risk 2-dose series) Hepatitis A Vaccine (1 of 2 - Risk 2-dose series) [facility] Start: 2004 Pneumococcal vaccination Pneumococcal Vaccine (1 of 2 - PCV) [facility] Start: 2004 Urine microalbumin profile DTAP,TDAP,TD (1 - Tdap) [facility] Start: 2003 ANNUAL 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 TEAM 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 ERIKA DISEASE VISIT ANNUAL PCP TEAM CHRONIC DISEASE VISIT [facility] Start: 2003 HIV SCREENING HIV SCREENING [facility] Start: 2003 HIV screening HIV Screening [facility] Start: 2003 MMR (1 of 2 - Risk 2-dose series) MMR (1 of 2 - Risk 2-dose series) [facility] Start: 1995 Glaucoma screening Dilated Retinal E xam [facility] Start: 1995 Hepatitis B screening URINE ALBUMIN:CREATININE RATIO [facility] Start: 1995 Hepatitis C antibody , confirmatory test DILATED RETINAL EXAM [facility] Start: 1995 Meningococcal B Vaccine: Consider Based On Risk (1 of 4 - Increased Risk) Meningococcal B Vaccine: Consider Based On Risk (1 of 4 - Increased Risk) [facility] Start: 1995 MENINGOCOCCAL B: Consider based on risk (1 of 4 - Increased Risk Bexsero 2-dose series) MENINGOCOCCAL B: Consider based on risk (1 of 4 - Increased Risk Bexsero 2-dose series) [facility] Start: 1991 PNEUMOCOCCAL (1 - PCV) PNEUMOCOCCAL (1 - PCV) [facility] Start: 1991 Pneumococcal vaccination Pneumococcal Vaccine (1 of 2 - PCV) [facility] Start: 1990 COVID-19 VACCINE (1) COVID-19 VACCIN E (1) [facility] Start: 1986 HEPATITIS A (1 of 2 - Risk 2-dose series) HEPATITIS A (1 of 2 - Risk 2-dose series) [facility] Start: 1985 COVID-19 VACCINE (#1) COVID-19 VACCI NE (#1) [facility] Cytology Cervical or vaginal smear or scraping study Pap Smear Pathology and Cytology Routine Well woman exam with routine gynecological exam Ordered: 01/23/2024 [facility] Work Phone: Comment on above: Ordered: 01/23/2024 Hemoglobin A1c/Hemoglobin.total in Blood HEMOGLOBIN A1C (POC) Lab Routine Abnormal glucose Ordered: 03/31/2022 [facility] Work Phone: Comment on above: Ordered: 03/31/2022 Human papilloma viru s DNA [Presence] in Unspecified specimen by Probe with amplification HPV DNA probe, amplified Microbiology Routine Well woman exam with routine gynecological exam Ordered: 01/23/2024 [facility] Comment on above: Ordered: 01/23/2024 [facility] Immunizations Immunization Date Immunization Notes Care Provider Tasha kessler 11-03-2020 tetanus toxoid, reduced diphtheria toxoid, and acellular pertussis vaccine, adsorbed; Translations: [Boostrix (Tdap)] RAMÓN VALENTIN [facility] 03-15-2018 influenza virus vaccine, unspecified formulation Edmundo Devlin MD Work Phone: [facility] 09-19-1997 measles, mumps and rubella virus vaccine Basem Jo [facility] 11-18-1988 Hib, unspecified formulation [facility] Jo [facility] 01-29-1987 measles, mumps and rubella virus vaccine Base Jo [facility] NEGATED: Highlighted row has not occurred!05-22-2024 influenza virus vaccine, unspecified formulation Devon Calle [facility] NEGATED: Highlighted row has not occurred!03-14-2023 influenza virus vaccine, unspecified formulation ANNABEL HERNANDEZ [facility] [place] Comment on above: Result Comment: massiel rgic to eggs NEGATED: Highlighted row has not occurred!09-23-2022 SARS-CoV-2 mRNA (tozinameran 5y-11y) vaccine Roshan Briceno [facility] NEGATED: Highlighted row has not occurred!09-30-2021 SARS-CoV-2 mRNA (tozinameran 5y-11y) vaccine [facility] Jo [facility] NEGATED: Highlighted row has not occurred!09-22-2021 SARS-CoV-2 mRNA (tozinameran 5y-11y) vaccine [facility] Jo [facility] NEGATED: Highlighted row has not occurred!09-01-2020 SARS-CoV-2 (COVID-19) mRNA-1273 vaccine RAMÓN VALENTIN [facility] NEGATED: Highlighted row has not occurred!04-16-2020 influenza virus vaccine, unspecified formulation RAMÓN VALENTIN [facility] NEGATED: Highlighted row has not occurred!02-16-2019 influenza virus vaccine, unspecified formulation RAMÓN VALENTIN [facility] Payers Date Payer Category Payer Medicare [id number] 2024 Unknown 2024 Unknown [id number] 2023 Medicare (Managed Care) 1.2. [id number] 2021 Private Health Insurance [id number] 2021 Self-pay 2021 Medicare [id number] 2019 Medicaid MEDICAID [facility] MEDICAID [id number] 2019-Present [phone] [address] [place] [address] Medicaid [id number] 2019 Medicaid [id number] [id number] .[id number] 2010 Medicaid [id number] 1985 Unknown [id number] 2.16.840.1.449291.3.579.2.7 27 1985 Unknown [id number] 2.16.840.1.143234.3.579.2.7 27 1985 Unknown [id number] 2.16.840.1.476111.3.579.2.7 27 1985 Unknown [id number] 2.16.840.1.492244.3.579.2.7 27 1985 Unknown [id number] 2.16.840.1.518090.3.579.2.7 27 1985 Unknown [id number] 2.16.840.1.461400.3.579.2.7 27 1985 Unknown [id number] 2.16.840.1.628114.3.579.2.7 27 1985 Unknown [id number] 2.16.840.1.604983.3.579.2.7 27 1985 Unknown [id number] 2.16.840.1.887254.3.579.2.1 259 1985 Unknown [id number] 2.16.840.1.529635.3.579.2.1 259 1985 Unknown [id number] 2.16.840.1.139214.3.579.2.1 259 1985 Unknown [id number] 2.16.840.1.706605.3.579.2.1 259 1985 Unknown [id number] 2.16.840.1.926529.3.579.2.1 259 1985 Unknown [id number] 2.16.840.1.611859.3.579.2.1 259 1985 Unknown [id number] 2.16.840.1.587698.3.579.2.1 259 1985 Unknown [id number] 2.16.840.1.979864.3.579.2.1 259 1985 Unknown [id number] 2.16.840.1.944876.3.579.2.1 259 1985 Unknown [id number] 2.16.840.1.103302.3.579.2.1 259 1985 Unknown [id number] 2.16.840.1.239426.3.579.2.1 259 1985 Unknown [id number] 2.16.840.1.939579.3.579.2.1 259 1985 Unknown [id number] 2.16.840.1.347645.3.579.2.7 27 1985 Unknown [id number] 2.16.840.1.582968.3.579.2.7 27 1985 Unknown [id number] 2.16.840.1.163754.3.579.2.7 27 1985 Unknown [id number] 2.16.840.1.136519.3.579.2.7 27 1985 Unknown [id number] 2.16.840.1.986037.3.579.2.7 27 1985 Unknown [id number] 2.16.840.1.571349.3.579.2.7 27 1985 Unknown [id number] 2.16.840.1.378910.3.579.2.7 27 1985 Unknown [id number] 2.16.840.1.963922.3.579.2.7 27 1985 Unknown [id number] 2.16.840.1.223633.3.579.2.7 27 1985 Unknown [id number] 2.16.840.1.079020.3.579.2.7 27 1985 Unknown [id number] 2.16.840.1.832095.3.579.2.7 27 1985 Unknown [id number] 2.16.840.1.182250.3.579.2.7 27 1985 Unknown [id number] 2.16.840.1.989357.3.579.2.7 27 1985 Unknown [id number] 2.16.840.1.101564.3.579.2.7 27 1985 Unknown [id number] 2.16.840.1.955904.3.579.2.7 27 1985 Unknown [id number] 2.16.840.1.629763.3.579.2.7 27 1985 Unknown [id number] 2.16.840.1.361862.3.579.2.7 27 1985 Unknown [id number] 2.16.840.1.385077.3.579.2.7 27 1985 Unknown [id number] 2.16.840.1.572408.3.579.2.7 27 1985 Unknown [id number] 2.16.840.1.051573.3.579.2.7 27 1985 Unknown [id number] 2.16.840.1.997379.3.579.2.7 27 1985 Unknown [id number] 2.16.840.1.192005.3.579.2.7 27 1985 Unknown [id number] 2.16.840.1.888830.3.579.2.7 27 1985 Unknown [id number] 2.16.840.1.344625.3.579.2.7 27 1985 Unknown [id number] 2.16.840.1.708794.3.579.2.7 27 1959 Medicare [id number] Unknown [id number] 2.16.840.1.062851.3.579.2.5 31 Unknown [id number] 2.16.840.1.445405.3.579.2.5 31 Social History Date Type Detail Facility Start: 07-23-2021 End: 11-15-2022 Tobacco smoking status Never smoked tobacco (finding) [facility] Comment on above: denies use denies use Start: 04-09-2012 Tobacco smoking status Never [facility] Comment on above: denies use denies use Start: 07-01-2023 End: 08-27-2024 Sex Assigned At Female [facility] Start: 03-31-2022 Tobacco smoking stat us NHIS Ex-smoker [facility] Start: 05-09-2005 End: 05-09-2006 History of tobacco use Current smoker [facility] Start: 05-09-2005 End: 05-09-2006 History of tobacco use Cigarette Smoker [facility] Start: 02-20-2020 End: 11-03-2023 Alcohol intake Current non-drinker of alcohol (finding) [facility] Start: 07-09-2008 End: 03-31-2022 Tobacco Comment PATIENT SMOKED 4-5 CIGARETTES DAILY BEFORE QUITTING [facility] Start: 1985 Sex Assigned At Female C [facility] Start: 03-31-2022 End: 08-27-2024 Cigarettes smoked current (pack per day) - Reported 0.5 [facility] Start: 03-31-2022 End: 11-15-2022 Tobacco use and exposure Smokeless tobacco non-user [facility] Start: 03-21-2022 End: 03-31-2022 Exposure to SARS-CoV-2 (event) Not sure [facility] Tobacco [facility] Comment on above: Denies. Tobacco smoking status [facility] Start: 06-05-2019 Gender identity Identifies as female gender (finding) [facility] Start: 06-05-2019 Sexual orientation Heterosexual (fin ding) [facility] Start: 01-23-2024 End: 08-27-2024 Alcoholic beverage intake Ex-drinker (finding) [facility] Start: 11-25-2022 Alcohol Comment caffeine: 1-2 cups per day [facility] Start: 07-28-2018 Sex Female (finding) [facility] Medical Equipment Procedure Code Equipment Code Equipment Origin al Text Equipment Identifier Dates lancets, See Instructions, 100 EA, 3, lancets test daily E11.9, [facility] #[id number], Supply, 175, cm, 04/16/20 15:38:00 EST, Height/Length Dosing, 133.2, kg, 04/16/20 15:38:00 EST, Weight Dosing Start: 04-16-2020 Test strips-True Metrix, See Instructions, 100 EA, 2, Blood glucose test strips. Use daily to test fasting blood sugars and as needed for symptomatic high or low blood sugars, [facility], Supply, 175, cm, 09/15/20 13:52:00 EDT, Hei... Start: 09-16-2020 na, See Instruct ions, 1 bottle(s), 6, provide patient with lancets and glucometer strips. Check glucose daily., [facility] #[id number], Supply Start: 03-29-2019 lancets, See Instructions, 100 EA, 3, lancets test daily E11.9, [facility] #[id number], Supply, 175, cm, 04/16/20 15:38:00 EST, Height/Length Dosing, 133.2, kg, 04/16/20 15:38:00 EST, Weight Dosing Start: 04-16-2020 Test strips-True Metrix, See Instructions, 100 EA, 2, Blood glucose test strips. Use daily to test fasting blood sugars and as needed for symptomatic high or low blood sugars, [facility], Supply, 175, cm, 09/15/20 13:52:00 EDT, Hei... Start: 09-16-2020 na, See Instruct ions, 1 bottle(s), 6, provide patient with lancets and glucometer strips. Check glucose daily., [facility] #[id number], Supply Start: 03-29-2019 lancets, See Instructions, 100 EA, 3, lancets test daily E11.9, [facility] #[id number], Supply, 175, cm, 04/16/20 15:38:00 EST, Height/Length Dosing, 133.2, kg, 04/16/20 15:38:00 EST, Weight Dosing Start: 04-16-2020 Test strips-True Metrix, See Instructions, 100 EA, 2, Blood glucose test strips. Use daily to test fasting blood sugars and as needed for symptomatic high or low blood sugars, [facility], Supply, 175, cm, 09/15/20 13:52:00 EDT, Hei... Start: 09-16-2020 na, See Instruct ions, 1 bottle(s), 6, provide patient with lancets and glucometer strips. Check glucose daily., [facility] #[id number], Supply Start: 03-29-2019 lancets, See Instructions, 100 EA, 3, lancets test daily E11.9, [facility] #[id number], Supply, 175, cm, 04/16/20 15:38:00 EST, Height/Length Dosing, 133.2, kg, 04/16/20 15:38:00 EST, Weight Dosing Start: 04-16-2020 Test strips-True Metrix, See Instructions, 100 EA, 2, Blood glucose test strips. Use daily to test fasting blood sugars and as needed for symptomatic high or low blood sugars, [facility], Supply, 175, cm, 09/15/20 13:52:00 EDT, Hei... Start: 09-16-2020 na, See Instruct ions, 1 bottle(s), 6, provide patient with lancets and glucometer strips. Check glucose daily., [facility] #[id number], Supply Start: 03-29-2019 lancets, See Instructions, 100 EA, 3, lancets test daily E11.9, [facility] #[id number], Supply, 175, cm, 04/16/20 15:38:00 EST, Height/Length Dosing, 133.2, kg, 04/16/20 15:38:00 EST, Weight Dosing Start: 04-16-2020 Test strips-True Metrix, See Instructions, 100 EA, 2, Blood glucose test strips. Use daily to test fasting blood sugars and as needed for symptomatic high or low blood sugars, [facility], Supply, 175, cm, 09/15/20 13:52:00 EDT, Hei... Start: 09-16-2020 na, See Instruct ions, 1 bottle(s), 6, provide patient with lancets and glucometer strips. Check glucose daily., [facility] #[id number], Supply Start: 03-29-2019 lancets, See Instructions, 100 EA, 3, lancets test daily E11.9, [facility] #[id number], Supply, 175, cm, 04/16/20 15:38:00 EST, Height/Length Dosing, 133.2, kg, 04/16/20 15:38:00 EST, Weight Dosing Start: 04-16-2020 Test strips-True Metrix, See Instructions, 100 EA, 2, Blood glucose test strips. Use daily to test fasting blood sugars and as needed for symptomatic high or low blood sugars, [facility], Supply, 175, cm, 09/15/20 13:52:00 EDT, Hei... Start: 09-16-2020 na, See Instruct ions, 1 bottle(s), 6, provide patient with lancets and glucometer strips. Check glucose daily., [facility] #[id number], Supply Start: 03-29-2019 lancets, See Instructions, 100 EA, 3, lancets test daily E11.9, [facility] #[id number], Supply, 175, cm, 04/16/20 15:38:00 EST, Height/Length Dosing, 133.2, kg, 04/16/20 15:38:00 EST, Weight Dosing Start: 04-16-2020 Test strips-True Metrix, See Instructions, 100 EA, 2, Blood glucose test strips. Use daily to test fasting blood sugars and as needed for symptomatic high or low blood sugars, [facility], Supply, 175, cm, 09/15/20 13:52:00 EDT, Hei... Start: 09-16-2020 na, See Instruct ions, 1 bottle(s), 6, provide patient with lancets and glucometer strips. Check glucose daily., [facility] #[id number], Supply Start: 03-29-2019 lancets, See Instructions, 100 EA, 3, lancets test daily E11.9, [facility] #[id number], Supply, 175, cm, 04/16/20 15:38:00 EST, Height/Length Dosing, 133.2, kg, 04/16/20 15:38:00 EST, Weight Dosing Start: 04-16-2020 Test strips-True Metrix, See Instructions, 100 EA, 2, Blood glucose test strips. Use daily to test fasting blood sugars and as needed for symptomatic high or low blood sugars, [facility], Supply, 175, cm, 09/15/20 13:52:00 EDT, Hei... Start: 09-16-2020 na, See Instruct ions, 1 bottle(s), 6, provide patient with lancets and glucometer strips. Check glucose daily., [facility] #[id number], Supply Start: 03-29-2019 lancets, See Instructions, 100 EA, 3, lancets test daily E11.9, [facility] #[id number], Supply, 175, cm, 04/16/20 15:38:00 EST, Height/Length Dosing, 133.2, kg, 04/16/20 15:38:00 EST, Weight Dosing Start: 04-16-2020 Test strips-True Metrix, See Instructions, 100 EA, 2, Blood glucose test strips. Use daily to test fasting blood sugars and as needed for symptomatic high or low blood sugars, [facility], Supply, 175, cm, 09/15/20 13:52:00 EDT, Hei... Start: 09-16-2020 na, See Instruct ions, 1 bottle(s), 6, provide patient with lancets and glucometer strips. Check glucose daily., [facility] #[id number], Supply Start: 03-29-2019 lancets, See Instructions, 100 EA, 3, lancets test daily E11.9, [facility] #[id number], Supply, 175, cm, 04/16/20 15:38:00 EST, Height/Length Dosing, 133.2, kg, 04/16/20 15:38:00 EST, Weight Dosing Start: 04-16-2020 Test strips-True Metrix, See Instructions, 100 EA, 2, Blood glucose test strips. Use daily to test fasting blood sugars and as needed for symptomatic high or low blood sugars, [facility], Supply, 175, cm, 09/15/20 13:52:00 EDT, Hei... Start: 09-16-2020 na, See Instruct ions, 1 bottle(s), 6, provide patient with lancets and glucometer strips. Check glucose daily., [facility] #[id number], Supply Start: 03-29-2019 lancets, See Instructions, 100 EA, 3, lancets test daily E11.9, [facility] #[id number], Supply, 175, cm, 04/16/20 15:38:00 EST, Height/Length Dosing, 133.2, kg, 04/16/20 15:38:00 EST, Weight Dosing Start: 04-16-2020 Test strips-True Metrix, See Instructions, 100 EA, 2, Blood glucose test strips. Use daily to test fasting blood sugars and as needed for symptomatic high or low blood sugars, [facility], Supply, 175, cm, 09/15/20 13:52:00 EDT, Hei... Start: 09-16-2020 na, See Instruct ions, 1 bottle(s), 6, provide patient with lancets and glucometer strips. Check glucose daily., [facility] #[id number], Supply Start: 03-29-2019 lancets, See Instructions, 100 EA, 3, lancets test daily E11.9, [facility] #[id number], Supply, 175, cm, 04/16/20 15:38:00 EST, Height/Length Dosing, 133.2, kg, 04/16/20 15:38:00 EST, Weight Dosing Start: 04-16-2020 Test strips-True Metrix, See Instructions, 100 EA, 2, Blood glucose test strips. Use daily to test fasting blood sugars and as needed for symptomatic high or low blood sugars, [facility], Supply, 175, cm, 09/15/20 13:52:00 EDT, Hei... Start: 09-16-2020 na, See Instruct ions, 1 bottle(s), 6, provide patient with lancets and glucometer strips. Check glucose daily., [facility] #[id number], Supply Start: 03-29-2019 lancets, See Instructions, 100 EA, 3, lancets test daily E11.9, [facility] #[id number], Supply, 175, cm, 04/16/20 15:38:00 EST, Height/Length Dosing, 133.2, kg, 04/16/20 15:38:00 EST, Weight Dosing Start: 04-16-2020 Test strips-True Metrix, See Instructions, 100 EA, 2, Blood glucose test strips. Use daily to test fasting blood sugars and as needed for symptomatic high or low blood sugars, [facility], Supply, 175, cm, 09/15/20 13:52:00 EDT, Hei... Start: 09-16-2020 na, See Instruct ions, 1 bottle(s), 6, provide patient with lancets and glucometer strips. Check glucose daily., [facility] #[id number], Supply Start: 03-29-2019 lancets, See Instructions, 100 EA, 3, lancets test daily E11.9, [facility] #[id number], Supply, 175, cm, 04/16/20 15:38:00 EST, Height/Length Dosing, 133.2, kg, 04/16/20 15:38:00 EST, Weight Dosing Start: 04-16-2020 Test strips-True Metrix, See Instructions, 100 EA, 2, Blood glucose test strips. Use daily to test fasting blood sugars and as needed for symptomatic high or low blood sugars, [facility], Supply, 175, cm, 09/15/20 13:52:00 EDT, Hei... Start: 09-16-2020 na, See Instruct ions, 1 bottle(s), 6, provide patient with lancets and glucometer strips. Check glucose daily., [facility] #[id number], Supply Start: 03-29-2019 lancets, See Instructions, 100 EA, 3, lancets test daily E11.9, [facility] #[id number], Supply, 175, cm, 04/16/20 15:38:00 EST, Height/Length Dosing, 133.2, kg, 04/16/20 15:38:00 EST, Weight Dosing Start: 04-16-2020 Test strips-True Metrix, See Instructions, 100 EA, 2, Blood glucose test strips. Use daily to test fasting blood sugars and as needed for symptomatic high or low blood sugars, [facility], Supply, 175, cm, 09/15/20 13:52:00 EDT, Hei... Start: 09-16-2020 na, See Instruct ions, 1 bottle(s), 6, provide patient with lancets and glucometer strips. Check glucose daily., [facility] #[id number], Supply Start: 03-29-2019 Start: 06-15-2018 lancets, See Instructions, 100 EA, 3, lancets test daily E11.9, [facility] #[id number], Supply, 175, cm, 04/16/20 15:38:00 EST, Height/Length Dosing, 133.2, kg, 04/16/20 15:38:00 EST, Weight Dosing Start: 04-16-2020 Test strips-True Metrix, See Instructions, 100 EA, 2, Blood glucose test strips. Use daily to test fasting blood sugars and as needed for symptomatic high or low blood sugars, [facility], Supply, 175, cm, 09/15/20 13:52:00 EDT, Hei... Start: 09-16-2020 na, See Instruct ions, 1 bottle(s), 6, provide patient with lancets and glucometer strips. Check glucose daily., [facility] #[id number], Supply Start: 03-29-2019 lancets, See Instructions, 100 EA, 3, lancets test daily E11.9, [facility] #[id number], Supply, 175, cm, 04/16/20 15:38:00 EST, Height/Length Dosing, 133.2, kg, 04/16/20 15:38:00 EST, Weight Dosing Start: 04-16-2020 Test strips-True Metrix, See Instructions, 100 EA, 2, Blood glucose test strips. Use daily to test fasting blood sugars and as needed for symptomatic high or low blood sugars, [facility], Supply, 175, cm, 09/15/20 13:52:00 EDT, Hei... Start: 09-16-2020 na, See Instruct ions, 1 bottle(s), 6, provide patient with lancets and glucometer strips. Check glucose daily., [facility] #[id number], Supply Start: 03-29-2019 lancets, See Instructions, 100 EA, 3, lancets test daily E11.9, [facility] #[id number], Supply, 175, cm, 04/16/20 15:38:00 EST, Height/Length Dosing, 133.2, kg, 04/16/20 15:38:00 EST, Weight Dosing Start: 04-16-2020 Test strips-True Metrix, See Instructions, 100 EA, 2, Blood glucose test strips. Use daily to test fasting blood sugars and as needed for symptomatic high or low blood sugars, [facility], Supply, 175, cm, 09/15/20 13:52:00 EDT, Hei... Start: 09-16-2020 na, See Instruct ions, 1 bottle(s), 6, provide patient with lancets and glucometer strips. Check glucose daily., [facility] #[id number], Supply Start: 03-29-2019 lancets, See Instructions, 100 EA, 3, lancets test daily E11.9, [facility] #[id number], Supply, 175, cm, 04/16/20 15:38:00 EST, Height/Length Dosing, 133.2, kg, 04/16/20 15:38:00 EST, Weight Dosing Start: 04-16-2020 Test strips-True Metrix, See Instructions, 100 EA, 2, Blood glucose test strips. Use daily to test fasting blood sugars and as needed for symptomatic high or low blood sugars, [facility], Supply, 175, cm, 09/15/20 13:52:00 EDT, Height/Length Dosing, 128, kg, 09/15/20 13:52:00 EDT, Weight Dosing Start: 09-16-2020 na, See Instruct ions, 1 bottle(s), 6, provide patient with lancets and glucometer strips. Check glucose daily., [facility] #[id number], Supply Start: 03-29-2019 lancets, See Instructions, 100 EA, 3, lancets test daily E11.9, [facility] #[id number], Supply, 175, cm, 04/16/20 15:38:00 EST, Height/Length Dosing, 133.2, kg, 04/16/20 15:38:00 EST, Weight Dosing Start: 04-16-2020 Test strips-True Metrix, See Instructions, 100 EA, 2, Blood glucose test strips. Use daily to test fasting blood sugars and as needed for symptomatic high or low blood sugars, [facility], Supply, 175, cm, 09/15/20 13:52:00 EDT, Height/Length Dosing, 128, kg, 09/15/20 13:52:00 EDT, Weight Dosing Start: 09-16-2020 na, See Instruct ions, 1 bottle(s), 6, provide patient with lancets and glucometer strips. Check glucose daily., [facility] #[id number], Supply Start: 03-29-2019 lancets, See Instructions, 100 EA, 3, lancets test daily E11.9, [facility] #[id number], Supply, 175, cm, 04/16/20 15:38:00 EST, Height/Length Dosing, 133.2, kg, 04/16/20 15:38:00 EST, Weight Dosing Start: 04-16-2020 Test strips-True Metrix, See Instructions, 100 EA, 2, Blood glucose test strips. Use daily to test fasting blood sugars and as needed for symptomatic high or low blood sugars, [facility], Supply, 175, cm, 09/15/20 13:52:00 EDT, Height/Length Dosing, 128, kg, 09/15/20 13:52:00 EDT, Weight Dosing Start: 09-16-2020 na, See Instruct ions, 1 bottle(s), 6, provide patient with lancets and glucometer strips. Check glucose daily., [facility] #[id number], Supply Start: 03-29-2019 lancets, See Instructions, 100 EA, 3, lancets test daily E11.9, [facility] #[id number], Supply, 175, cm, 04/16/20 15:38:00 EST, Height/Length Dosing, 133.2, kg, 04/16/20 15:38:00 EST, Weight Dosing Start: 04-16-2020 Test strips-True Metrix, See Instructions, 100 EA, 2, Blood glucose test strips. Use daily to test fasting blood sugars and as needed for symptomatic high or low blood sugars, [facility], Supply, 175, cm, 09/15/20 13:52:00 EDT, Height/Length Dosing, 128, kg, 09/15/20 13:52:00 EDT, Weight Dosing Start: 09-16-2020 na, See Instruct ions, 1 bottle(s), 6, provide patient with lancets and glucometer strips. Check glucose daily., [facility] #[id number], Supply Start: 03-29-2019 lancets, See Instructions, 100 EA, 3, lancets test daily E11.9, [facility] #[id number], Supply, 175, cm, 04/16/20 15:38:00 EST, Height/Length Dosing, 133.2, kg, 04/16/20 15:38:00 EST, Weight Dosing Start: 04-16-2020 Test strips-True Metrix, See Instructions, 100 EA, 2, Blood glucose test strips. Use daily to test fasting blood sugars and as needed for symptomatic high or low blood sugars, [facility], Supply, 175, cm, 09/15/20 13:52:00 EDT, Height/Length Dosing, 128, kg, 09/15/20 13:52:00 EDT, Weight Dosing Start: 09-16-2020 na, See Instruct ions, 1 bottle(s), 6, provide patient with lancets and glucometer strips. Check glucose daily., [facility] #[id number], Supply Start: 03-29-2019 lancets, See Instructions, 100 EA, 3, lancets test daily E11.9, [facility] #[id number], Supply, 175, cm, 04/16/20 15:38:00 EST, Height/Length Dosing, 133.2, kg, 04/16/20 15:38:00 EST, Weight Dosing Start: 04-16-2020 Test strips-True Metrix, See Instructions, 100 EA, 2, Blood glucose test strips. Use daily to test fasting blood sugars and as needed for symptomatic high or low blood sugars, [facility], Supply, 175, cm, 09/15/20 13:52:00 EDT, Height/Length Dosing, 128, kg, 09/15/20 13:52:00 EDT, Weight Dosing Start: 09-16-2020 na, See Instruct ions, 1 bottle(s), 6, provide patient with lancets and glucometer strips. Check glucose daily., [facility] #[id number], Supply Start: 03-29-2019 lancets, See Instructions, 100 EA, 3, lancets test daily E11.9, [facility] #[id number], Supply, 175, cm, 04/16/20 15:38:00 EST, Height/Length Dosing, 133.2, kg, 04/16/20 15:38:00 EST, Weight Dosing Start: 04-16-2020 Test strips-True Metrix, See Instructions, 100 EA, 2, Blood glucose test strips. Use daily to test fasting blood sugars and as needed for symptomatic high or low blood sugars, [facility], Supply, 175, cm, 09/15/20 13:52:00 EDT, Height/Length Dosing, 128, kg, 09/15/20 13:52:00 EDT, Weight Dosing Start: 09-16-2020 na, See Instruct ions, 1 bottle(s), 6, provide patient with lancets and glucometer strips. Check glucose daily., [facility] #[id number], Supply Start: 03-29-2019 lancets, See Instructions, 100 EA, 3, lancets test daily E11.9, [facility] #[id number], Supply, 175, cm, 04/16/20 15:38:00 EST, Height/Length Dosing, 133.2, kg, 04/16/20 15:38:00 EST, Weight Dosing Start: 04-16-2020 Test strips-True Metrix, See Instructions, 100 EA, 2, Blood glucose test strips. Use daily to test fasting blood sugars and as needed for symptomatic high or low blood sugars, [facility], Supply, 175, cm, 09/15/20 13:52:00 EDT, Height/Length Dosing, 128, kg, 09/15/20 13:52:00 EDT, Weight Dosing Start: 09-16-2020 na, See Instruct ions, 1 bottle(s), 6, provide patient with lancets and glucometer strips. Check glucose daily., [facility] #[id number], Supply Start: 03-29-2019 lancets, See Instructions, 100 EA, 3, lancets test daily E11.9, [facility] #[id number], Supply, 175, cm, 04/16/20 15:38:00 EST, Height/Length Dosing, 133.2, kg, 04/16/20 15:38:00 EST, Weight Dosing Start: 04-16-2020 Test strips-True Metrix, See Instructions, 100 EA, 2, Blood glucose test strips. Use daily to test fasting blood sugars and as needed for symptomatic high or low blood sugars, [facility], Supply, 175, cm, 09/15/20 13:52:00 EDT, Height/Length Dosing, 128, kg, 09/15/20 13:52:00 EDT, Weight Dosing Start: 09-16-2020 na, See Instruct ions, 1 bottle(s), 6, provide patient with lancets and glucometer strips. Check glucose daily., [facility] #[id number], Supply Start: 03-29-2019 lancets, See Instructions, 100 EA, 3, lancets test daily E11.9, [facility] #[id number], Supply, 175, cm, 04/16/20 15:38:00 EST, Height/Length Dosing, 133.2, kg, 04/16/20 15:38:00 EST, Weight Dosing Start: 04-16-2020 Test strips-True Metrix, See Instructions, 100 EA, 2, Blood glucose test strips. Use daily to test fasting blood sugars and as needed for symptomatic high or low blood sugars, [facility], Supply, 175, cm, 09/15/20 13:52:00 EDT, Height/Length Dosing, 128, kg, 09/15/20 13:52:00 EDT, Weight Dosing Start: 09-16-2020 na, See Instruct ions, 1 bottle(s), 6, provide patient with lancets and glucometer strips. Check glucose daily., [facility] #[id number], Supply Start: 03-29-2019 lancets, See Instructions, 100 EA, 3, lancets test daily E11.9, [facility] #[id number], Supply, 175, cm, 04/16/20 15:38:00 EST, Height/Length Dosing, 133.2, kg, 04/16/20 15:38:00 EST, Weight Dosing Start: 04-16-2020 Test strips-True Metrix, See Instructions, 100 EA, 2, Blood glucose test strips. Use daily to test fasting blood sugars and as needed for symptomatic high or low blood sugars, [facility], Supply, 175, cm, 09/15/20 13:52:00 EDT, Height/Length Dosing, 128, kg, 09/15/20 13:52:00 EDT, Weight Dosing Start: 09-16-2020 na, See Instruct ions, 1 bottle(s), 6, provide patient with lancets and glucometer strips. Check glucose daily., [facility] #[id number], Supply Start: 03-29-2019 lancets, See Instructions, 100 EA, 3, lancets test daily E11.9, [facility] #[id number], Supply, 175, cm, 04/16/20 15:38:00 EST, Height/Length Dosing, 133.2, kg, 04/16/20 15:38:00 EST, Weight Dosing Start: 04-16-2020 Test strips-True Metrix, See Instructions, 100 EA, 2, Blood glucose test strips. Use daily to test fasting blood sugars and as needed for symptomatic high or low blood sugars, [facility], Supply, 175, cm, 09/15/20 13:52:00 EDT, Height/Length Dosing, 128, kg, 09/15/20 13:52:00 EDT, Weight Dosing Start: 09-16-2020 na, See Instruct ions, 1 bottle(s), 6, provide patient with lancets and glucometer strips. Check glucose daily., [facility] #[id number], Supply Start: 03-29-2019 lancets, See Instructions, 100 EA, 3, lancets test daily E11.9, [facility] #[id number], Supply, 175, cm, 04/16/20 15:38:00 EST, Height/Length Dosing, 133.2, kg, 04/16/20 15:38:00 EST, Weight Dosing Start: 04-16-2020 Test strips-True Metrix, See Instructions, 100 EA, 2, Blood glucose test strips. Use daily to test fasting blood sugars and as needed for symptomatic high or low blood sugars, [facility], Supply, 175, cm, 09/15/20 13:52:00 EDT, Height/Length Dosing, 128, kg, 09/15/20 13:52:00 EDT, Weight Dosing Start: 09-16-2020 na, See Instruct ions, 1 bottle(s), 6, provide patient with lancets and glucometer strips. Check glucose daily., [facility] #[id number], Supply Start: 03-29-2019 lancets, See Instructions, 100 EA, 3, lancets test daily E11.9, [facility] #[id number], Supply, 175, cm, 04/16/20 15:38:00 EST, Height/Length Dosing, 133.2, kg, 04/16/20 15:38:00 EST, Weight Dosing Start: 04-16-2020 Test strips-True Metrix, See Instructions, 100 EA, 2, Blood glucose test strips. Use daily to test fasting blood sugars and as needed for symptomatic high or low blood sugars, [facility], Supply, 175, cm, 09/15/20 13:52:00 EDT, Height/Length Dosing, 128, kg, 09/15/20 13:52:00 EDT, Weight Dosing Start: 09-16-2020 na, See Instruct ions, 1 bottle(s), 6, provide patient with lancets and glucometer strips. Check glucose daily., [facility] #[id number], Supply Start: 03-29-2019 lancets, See Instructions, 100 EA, 3, lancets test daily E11.9, [facility] #[id number], Supply, 175, cm, 04/16/20 15:38:00 EST, Height/Length Dosing, 133.2, kg, 04/16/20 15:38:00 EST, Weight Dosing Start: 04-16-2020 Test strips-True Metrix, See Instructions, 100 EA, 2, Blood glucose test strips. Use daily to test fasting blood sugars and as needed for symptomatic high or low blood sugars, [facility], Supply, 175, cm, 09/15/20 13:52:00 EDT, Height/Length Dosing, 128, kg, 09/15/20 13:52:00 EDT, Weight Dosing Start: 09-16-2020 na, See Instruct ions, 1 bottle(s), 6, provide patient with lancets and glucometer strips. Check glucose daily., [facility] #[id number], Supply Start: 03-29-2019 lancets, See Instructions, 100 EA, 3, lancets test daily E11.9, [facility] #[id number], Supply, 175, cm, 04/16/20 15:38:00 EST, Height/Length Dosing, 133.2, kg, 04/16/20 15:38:00 EST, Weight Dosing Start: 04-16-2020 Test strips-True Metrix, See Instructions, 100 EA, 2, Blood glucose test strips. Use daily to test fasting blood sugars and as needed for symptomatic high or low blood sugars, [facility], Supply, 175, cm, 09/15/20 13:52:00 EDT, Height/Length Dosing, 128, kg, 09/15/20 13:52:00 EDT, Weight Dosing Start: 09-16-2020 na, See Instruct ions, 1 bottle(s), 6, provide patient with lancets and glucometer strips. Check glucose daily., [facility] #[id number], Supply Start: 03-29-2019 lancets, See Instructions, 100 EA, 3, lancets test daily E11.9, [facility] #[id number], Supply, 175, cm, 04/16/20 15:38:00 EST, Height/Length Dosing, 133.2, kg, 04/16/20 15:38:00 EST, Weight Dosing Start: 04-16-2020 Test strips-True Metrix, See Instructions, 100 EA, 2, Blood glucose test strips. Use daily to test fasting blood sugars and as needed for symptomatic high or low blood sugars, [facility], Supply, 175, cm, 09/15/20 13:52:00 EDT, Height/Length Dosing, 128, kg, 09/15/20 13:52:00 EDT, Weight Dosing Start: 09-16-2020 na, See Instruct ions, 1 bottle(s), 6, provide patient with lancets and glucometer strips. Check glucose daily., [facility] #[id number], Supply Start: 03-29-2019 lancets, See Instructions, 100 EA, 3, lancets test daily E11.9, [facility] #[id number], Supply, 175, cm, 04/16/20 15:38:00 EST, Height/Length Dosing, 133.2, kg, 04/16/20 15:38:00 EST, Weight Dosing Start: 04-16-2020 Test strips-True Metrix, See Instructions, 100 EA, 2, Blood glucose test strips. Use daily to test fasting blood sugars and as needed for symptomatic high or low blood sugars, [facility], Supply, 175, cm, 09/15/20 13:52:00 EDT, Height/Length Dosing, 128, kg, 09/15/20 13:52:00 EDT, Weight Dosing Start: 09-16-2020 na, See Instruct ions, 1 bottle(s), 6, provide patient with lancets and glucometer strips. Check glucose daily., [facility] #[id number], Supply Start: 03-29-2019 lancets, See Instructions, 100 EA, 3, lancets test daily E11.9, [facility] #[id number], Supply, 175, cm, 04/16/20 15:38:00 EST, Height/Length Dosing, 133.2, kg, 04/16/20 15:38:00 EST, Weight Dosing Start: 04-16-2020 Test strips-True Metrix, See Instructions, 100 EA, 2, Blood glucose test strips. Use daily to test fasting blood sugars and as needed for symptomatic high or low blood sugars, [facility], Supply, 175, cm, 09/15/20 13:52:00 EDT, Height/Length Dosing, 128, kg, 09/15/20 13:52:00 EDT, Weight Dosing Start: 09-16-2020 na, See Instruct ions, 1 bottle(s), 6, provide patient with lancets and glucometer strips. Check glucose daily., [facility] #[id number], Supply Start: 03-29-2019 lancets, See Instructions, 100 EA, 3, lancets test daily E11.9, [facility] #[id number], Supply, 175, cm, 04/16/20 15:38:00 EST, Height/Length Dosing, 133.2, kg, 04/16/20 15:38:00 EST, Weight Dosing Start: 04-16-2020 Test strips-True Metrix, See Instructions, 100 EA, 2, Blood glucose test strips. Use daily to test fasting blood sugars and as needed for symptomatic high or low blood sugars, [facility], Supply, 175, cm, 09/15/20 13:52:00 EDT, Height/Length Dosing, 128, kg, 09/15/20 13:52:00 EDT, Weight Dosing Start: 09-16-2020 na, See Instruct ions, 1 bottle(s), 6, provide patient with lancets and glucometer strips. Check glucose daily., [facility] #[id number], Supply Start: 03-29-2019 lancets, See Instructions, 100 EA, 3, lancets test daily E11.9, [facility] #[id number], Supply, 175, cm, 04/16/20 15:38:00 EST, Height/Length Dosing, 133.2, kg, 04/16/20 15:38:00 EST, Weight Dosing Start: 04-16-2020 Test strips-True Metrix, See Instructions, 100 EA, 2, Blood glucose test strips. Use daily to test fasting blood sugars and as needed for symptomatic high or low blood sugars, [facility], Supply, 175, cm, 09/15/20 13:52:00 EDT, Height/Length Dosing, 128, kg, 09/15/20 13:52:00 EDT, Weight Dosing Start: 09-16-2020 na, See Instruct ions, 1 bottle(s), 6, provide patient with lancets and glucometer strips. Check glucose daily., [facility] #[id number], Supply Start: 03-29-2019 lancets, See Instructions, 100 EA, 3, lancets test daily E11.9, [facility] #[id number], Supply, 175, cm, 04/16/20 15:38:00 EST, Height/Length Dosing, 133.2, kg, 04/16/20 15:38:00 EST, Weight Dosing Start: 04-16-2020 Test strips-True Metrix, See Instructions, 100 EA, 2, Blood glucose test strips. Use daily to test fasting blood sugars and as needed for symptomatic high or low blood sugars, [facility], Supply, 175, cm, 09/15/20 13:52:00 EDT, Height/Length Dosing, 128, kg, 09/15/20 13:52:00 EDT, Weight Dosing Start: 09-16-2020 na, See Instruct ions, 1 bottle(s), 6, provide patient with lancets and glucometer strips. Check glucose daily., [facility] #[id number], Supply Start: 03-29-2019 lancets, See Instructions, 100 EA, 3, lancets test daily E11.9, [facility] #[id number], Supply, 175, cm, 04/16/20 15:38:00 EST, Height/Length Dosing, 133.2, kg, 04/16/20 15:38:00 EST, Weight Dosing Start: 04-16-2020 Test strips-True Metrix, See Instructions, 100 EA, 2, Blood glucose test strips. Use daily to test fasting blood sugars and as needed for symptomatic high or low blood sugars, [facility], Supply, 175, cm, 09/15/20 13:52:00 EDT, Height/Length Dosing, 128, kg, 09/15/20 13:52:00 EDT, Weight Dosing Start: 09-16-2020 na, See Instruct ions, 1 bottle(s), 6, provide patient with lancets and glucometer strips. Check glucose daily., [employer] #[id number], Supply Start: 03-29-2019 lancets, See Instructions, 100 EA, 3, lancets test daily E11.9, [employer] #[id number], Supply, 175, cm, 04/16/20 15:38:00 EST, Height/Length Dosing, 133.2, kg, 04/16/20 15:38:00 EST, Weight Dosing Start: 04-16-2020 Test strips-[employer], See Instructions, 100 EA, 2, Blood glucose test strips. Use daily to test fasting blood sugars and as needed for symptomatic high or low blood sugars, [employer], Supply, 175, cm, 09/15/20 13:52:00 EDT, Height/Length Dosing, 128, kg, 09/15/20 13:52:00 EDT, Weight Dosing Start: 09-16-2020 na, See Instruct ions, 1 bottle(s), 6, provide patient with lancets and glucometer strips. Check glucose daily., [employer] #[id number], Supply Start: 03-29-2019 lancets, See Instructions, 100 EA, 3, lancets test daily E11.9, [employer] #[id number], Supply, 175, cm, 04/16/20 15:38:00 EST, Height/Length Dosing, 133.2, kg, 04/16/20 15:38:00 EST, Weight Dosing Start: 04-16-2020 Test strips-[employer], See Instructions, 100 EA, 2, Blood glucose test strips. Use daily to test fasting blood sugars and as needed for symptomatic high or low blood sugars, [employer], Supply, 175, cm, 09/15/20 13:52:00 EDT, Height/Length Dosing, 128, kg, 09/15/20 13:52:00 EDT, Weight Dosing Start: 09-16-2020 na, See Instruct ions, 1 bottle(s), 6, provide patient with lancets and glucometer strips. Check glucose daily., [employer] #[id number], Supply Start: 03-29-2019 lancets, See Instructions, 100 EA, 3, lancets test daily E11.9, [employer] #[id number], Supply, 175, cm, 04/16/20 15:38:00 EST, Height/Length Dosing, 133.2, kg, 04/16/20 15:38:00 EST, Weight Dosing Start: 04-16-2020 Test strips-[employer], See Instructions, 100 EA, 2, Blood glucose test strips. Use daily to test fasting blood sugars and as needed for symptomatic high or low blood sugars, [employer], Supply, 175, cm, 09/15/20 13:52:00 EDT, Height/Length Dosing, 128, kg, 09/15/20 13:52:00 EDT, Weight Dosing Start: 09-16-2020 na, See Instruct ions, 1 bottle(s), 6, provide patient with lancets and glucometer strips. Check glucose daily., [id number], [facility] Start: 03-29-2019 lancets, See Instructions, 100 EA, 3, lancets test daily E11.9, [id number], Supply, 175, cm, 04/16/20 15:38:00 EST, Height/Length Dosing, 133.2, kg, 04/16/20 15:38:00 EST, Weight Dosing Start: 04-16-2020 Test strips-[employer], See Instructions, 100 EA, 2, Blood glucose test strips. Use daily to test fasting blood sugars and as needed for symptomatic high or low blood sugars, [employer], Supply, 175, cm, 09/15/20 13:52:00 EDT, Height/Length Dosing, 128, kg, 09/15/20 13:52:00 EDT, Weight Dosing Start: 09-16-2020 na, See Instruct ions, 1 bottle(s), 6, provide patient with lancets and glucometer strips. Check glucose daily., [facility]ERKom[facility] MediaNOR[facility] NORMANBul[facility] #[id number], Supply Start: 03-29-2019 Goals Date Patient Goal Desired Activity /State 03-29-2019 Functional Status Date Assessment Result Facility 09-26-2024 Functional Status N/A [facility] 08-01-2024 Functional Status N/A [facility] 06-29-2024 Functional Status N/A [facility] 05-22-2024 Functional Status N/A [facility] 03-02-2024 Functional Status N/A [facility] 02-28-2024 Functional Status N/A [facility] 01-13-2024 Functional Status N/A [facility] [address]-09-2024 Functional Status No [facility] 11-29-2023 Functional Status N/A [facility] 11-28-2023 Functional Status N/A [facility] 09-22-2023 Functional Status N/A [facility] 07-25-2023 Functional Status N/A [facility] 07-01-2023 Functional Status N/A [facility] 05-20-2023 Functional Status N/A [facility] 04-06-2023 Functional Status N/A [facility] 03-19-2023 Functional Status N/A [facility] 03-14-2023 Functional Status N/A [facility] 12-21-2022 Functional Status N/A [facility] 10-21-2022 Functional Status N/A [facility] 05-23-2022 Functional Status N/A [facility] 02-11-2022 Functional Status Telehealth Patient Venkat [facility] 12-31-2021 Functional Status N/A [facility] 12-24-2021 N/A [facility] 11-03-2021 Functional Status N/A [facility] 11-01-2021 Functional Status N/A [facility] 04-20-2016 Are you deaf, or do you have serious difficulty hearing No 04/20/2016 11:07 AM Piter Mohan No [facility] 04-20-2016 Are you blind, or do you have serious difficulty seeing, even when wearing glasses No 04/20/2016 11:07 AM Piter Mohan No [facility] 04-20-2016 Do you have serious difficulty walking or climbing stairs Yes 04/20/2016 11:07 AM Piter Mohan Yes [facility] 04-20-2016 Do you have difficul ty dressing or bathing Yes 04/20/2016 11:07 AM Piter Mohan Yes [facility] 04-20-2016 Because of a physica l, mental, or emotional condition, do you have difficulty doing errands alone such as visiting a physician's office or shopping Yes 04/20/2016 11:07 AM Piter Mohan Yes [facility] Mental Status Date Assessment Result Facility 04-20-2016 Because of a physica l, mental, or emotional condition, do you have serious difficulty concentrating, remembering, or making decisions Yes 04/20/2016 11:07 AM Piter Mohan Yes [facility] Clinical Notes 01-26-2010 to 01-23-2025 MIAN Francis - 01/23/2025 10:00 AM EDTTelephone Encounter - Ary Lomax MA - 12/31/2024 8:39 AM EDTTelephone Encounter - Ary Lomax MA - 12/31/2024 8:39 AM EDTRadiology Note Date & Type Note Facility 01-23-2025 History of Presen t illness Narrative Reason for Appointment: Patient ID: Alma Delia Pearl is a 39 y.o. female who presents for [facility] Visit Patient presents today for Annual [...] (Multivitamin Adult) tablet Every 24 hours Nystop 106494 UNIT/GM powder APPLY TO AFFECTED AREA UNDER [...] 08/29/2023 IIH (idiopathic intracranial hypertension) 08/29/2023 Intracranial PAN GREASER disorder 08/29/2023 Obesity, unspecified obesity severity, unspecified obesity type 08/29/2023 Abscess of chest wall 12/01/2023 Resolved Ambulatory Problems Diagnosis Date Noted No Resolved Ambulatory Problems Past Medical History: Diagnosis Date ADHD (attention deficit hyperactivity disorder) 2020 Allergies Amenorrhea Anemia Anxiety Asthma (HCC) Bipolar disorder (HCC) Bradycardia Chlamydia Chronic pain Common migraine COPD (chronic obstructive pulmonary disease) (HCC) Crohn's disease (HCC) Depression Diabetes (HCC) Easy bruising Factor V Leiden mutation ([facility]) Fatigue Fibromyalgia, primary 2010 GERD (gastroesophageal reflux disease) Headache History of degenerative disc disease History of miscarriage Hyperlipemia Hypersomnia Joint pain Low back pain Lumbar back pain with radiculopathy affecting right lower extremity Lung nodule Migraine Morbid obesity with BMI of 40.0-44.9, adult (CMS-HCC) Muscle spasm Myalgia Nonsmoker Polycystic ovarian disease Polycystic ovaries Positive urine drug screen Sleep apnea 2020 Snoring Spinal stenosis Trichomoniasis HISTORY PAST MEDICAL HISTORY SOCIAL HISTORY Past Medical History: Diagnosis Date ADHD (attention deficit hyperactivity disorder) 2020 Allergies Amenorrhea Anemia Anxiety Asthma (HCC) Bipolar disorder (HCC) Bradycardia Chlamydia Chronic pain Common migraine COPD (chronic obstructive pulmonary disease) (HCC) Crohn's disease (HCC) Depression Diabetes (HCC) Easy bruising Factor V Leiden mutation ([facility]) Fatigue Fibromyalgia Fibromyalgia, primary 2010 GERD (gastroesophageal reflux disease) Headache History of degenerative disc disease History of miscarriage 13 total Hyperlipemia Hypersomnia Joint pain Low back pain Lumbar back pain with radiculopathy affecting right lower extremity Lung nodule Migraine Morbid obesity with BMI of 40.0-44.9, adult ([facility]) Muscle spasm Myalgia Nonsmoker PCOS (polycystic ovarian [...] nursing note reviewed. Exam conducted with a gas pumping station supervisor present. Vitals: Estimated body mass index is 43.56 kg/m as calculated from the following: Height as [...] of: MIAN Francis documented in this encounter [facility] 12-31-2024 Telephone encounter Note Most recent Endocrinology visit: Last encounter Visit on 06/01/2024 (with Edmundo Devlin) 07/01/2023 [facility] with EDMUNDO DEVLIN for Type 2 diabetes mellitus without complication, without long-term current use of insulin (HCC) 06/01/2024 [facility] with EDMUNDO DEVLIN for Type 2 diabetes mellitus without complication, without long-term current use of insulin (HCC) No future appt scheduled in ENDO. Please route to local appt/scheduling pool if appt is needed? Requested Prescriptions Pending Prescriptions Disp Refills MOUNJARO 5 mg/0.5 mL pen injector [Pharmacy Med Name: MOUNJARO 5MG/0.5ML INJ (4 PENS)] 2 mL 2 Sig: ADMINISTER 5 MG UNDER THE SKIN 1 TIME A WEEK Hemoglobin A1c: None on file in the last 12 months TSH: None on file in the last 12 months Free T3: None on file in the last 12 months Free T4: None on file in the last 12 months Thyroglobulin: None on file in the last 12 months Vitamin D: None on file in the last 12 months Hematocrit: None on file in the last 12 months Creatinine: None on file in the last 12 months eGFR: None on file in the last 12 months Potassium: None on file in the last 12 months Testosterone: None on file in the last 12 months IGF: None on file in the last 12 months Prolactin: None on file in the last 12 months [facility] 12-31-2024 Miscellaneous Notes Most recent Endocrinology visit: Last encounter Visit on 06/01/2024 (with Edmundo Devlin) 07/01/2023 in [facility] with EDMUNDO DEVLIN for Type 2 diabetes mellitus without complication, without long-term current use of insulin (HCC) 06/01/2024 in [facility] with EDMUNDO DEVLIN for Type 2 diabetes mellitus without complication, without long-term current use of insulin (HCC) No future appt scheduled in ENDO. Please route to local appt/scheduling pool if appt is needed? Requested Prescriptions Pending Prescriptions Disp Refills MOUNJARO 5 mg/0.5 mL pen injector [Pharmacy Med Name: MOUNJARO 5MG/0.5ML INJ (4 PENS)] 2 mL 2 Sig: ADMINISTER 5 MG UNDER THE SKIN 1 TIME A WEEK Hemoglobin A1c: None on file in the last 12 months TSH: None on file in the last 12 months Free T3: None on file in the last 12 months Free T4: None on file in the last 12 months Thyroglobulin: None on file in the last 12 months Vitamin D: None on file in the last 12 months Hematocrit: None on file in the last 12 months Creatinine: None on file in the last 12 months eGFR: None on file in the last 12 months Potassium: None on file in the last 12 months Testosterone: None on file in the last 12 months IGF: None on file in the last 12 months Prolactin: None on file in the last 12 months documented in this encounter [facility] 12-11-2024 Hospital Discharg e instructions Patient Education 12/11/2024 12:34:40 Obesity, Adult Obesity, Adult Obesity is the condition of having too much total body fat. Being overweight or obese means that your weight is greater than what is considered healthy for your body size. Obesity is determined by a measurement called BMI (body mass index). BMI is an estimate of body fat and is calculated from height and weight. For adults, a BMI of 30 or higher is considered obese. Obesity can lead to other health concerns and major illnesses, including: Stroke. Coronary artery disease (CAD). Type 2 diabetes. Some types of cancer, including cancers of the colon, breast, uterus, and gallbladder. High blood pressure (hypertension). High cholesterol. Gallbladder stones. Obesity can also contribute to: Osteoarthritis. Sleep apnea. Infertility problems. What are the causes? Common causes of this condition include: Eating daily meals that are high in calories, sugar, and fat. Drinking high amounts of sugar-sweetened beverages, such as soft drinks. Being born with genes that may make you more likely to become obese. Having a medical condition that causes obesity, including: ?Hypothyroidism. ?Polycystic ovarian syndrome (PCOS). ?Binge-eating disorder. ?Belén syndrome. Taking certain medicines, such as steroids, antidepressants, and seizure medicines. Not being physically active (sedentary lifestyle). Not getting enough sleep. What increases the risk? The following factors may make you more likely to develop this condition: Having a family history of obesity. Living in an area with limited access to: ?[place], recreation centers, or sidewalks. ?Healthy food choices, such as grocery stores and [employer]. What are the signs or symptoms? The main sign of this condition is having too much body fat. How is this diagnosed? This condition is diagnosed based on: Your BMI. If you are an adult with a BMI of 30 or higher, you are considered obese. Your waist circumference. This measures the distance around your waistline. Your skinfold thickness. Your health care provider may gently pinch a fold of your skin and measure it. You may have other tests to check for underlying conditions. How is this treated? Treatment for this condition often includes changing your lifestyle. Treatment may include some or all of the following: Dietary changes. This may include developing a healthy meal plan. Regular physical activity. This may include activity that causes your heart to beat faster (aerobic exercise) and strength training. Work with your health care provider to design an exercise program that works for you. Medicine to help you lose weight if you are unable to lose one pound a week after six weeks of healthy eating and more physical activity. Treating conditions that cause the obesity (underlying conditions). Surgery. Surgical options may include gastric banding and gastric bypass. Surgery may be done if: ?Other treatments have not helped to improve your condition. ?You have a BMI of 40 or higher. ?You have life-threatening health problems related to obesity. Follow these instructions at home: Eating and drinking Follow recommendations from your health care provider about what you eat and drink. Your health care provider may advise you to: ?Limit fast food, sweets, and processed snack foods. ?Choose low-fat options, such as low-fat milk instead of whole milk. ?Eat five or more servings of fruits or vegetables every day. ?Choose healthy foods when you eat out. ?Keep low-fat snacks available. ?Limit sugary drinks, such as soda, fruit juice, sweetened iced tea, and flavored milk. Drink enough water to keep your urine pale yellow. Do not follow a fad diet. Fad diets can be unhealthy and even dangerous. Other healthful choices include: ?Eat at home more often. This gives you more control over what you eat. ?Learn to read food labels. This will help you understand how much food is considered one serving. ?Learn what a healthy serving size is. Physical activity Exercise regularly, as told by your health care provider. ?Most adults should get up to 150 minutes of moderate-intensity exercise every week. ?Ask your health care provider what types of exercise are safe for you and how often you should exercise. Warm up and stretch before being active. Cool down and stretch after being active. Rest between periods of activity. Lifestyle Work with your health care provider and a dietitian to set a weight-loss goal that is healthy and reasonable for you. Limit your screen time. Find ways to reward yourself that do not involve food. Do not drink alcohol if: ?Your health [...] of hard liquor (44 mL). General instructions Keep a weight-loss journal to keep track of the food you eat and how much exercise you get. Take [id number] and prescription medicines only as told by your health care provider. Take vitamins and supplements only as told by your health care provider. Consider joining a support group. Your health care provider may be able to recommend a support group. Pay attention to your mental health as obesity can lead to depression or self esteem issues. Keep all follow-up visits. This is important. Contact a health care provider if: You are unable to meet your weight-loss goal after six weeks of dietary and lifestyle changes. You have trouble breathing. Summary Obesity is the condition of having too much total body fat. Being overweight or obese means that your weight is greater than what is considered healthy for your body size. Work with your health care provider and a dietitian to set a weight-loss goal that is healthy and reasonable for you. Exercise regularly, as told by your health care provider. Ask your health care provider what types of exercise are safe for you and how often you should exercise. This information is not intended to replace advice given to you by your health care provider. Make sure you discuss any questions you have with your health care provider. Document Revised: 12/01/2021 Document Reviewed: 12/01/2021 [facility] Patient Education 2023 [employer]. 12/11/2024 12:34:39 Exercising to Lose Weight Exercising to Lose Weight Getting regular exercise is important for everyone. It is especially important if you are overweight. Being overweight increases your risk of heart disease, stroke, diabetes, high blood pressure, and several types of cancer. Exercising, and reducing the [...] of moderate-intensity exercise a week to maintain their body weight. Vigorous-intensity exercise Vigorous-intensity exercise is any [...] you need and what types of activities are safe for you. Nutrition Make changes to your diet as told by your health care provider or diet and aerotriangulation specialist (dietitian). This may include: ?Eating fewer calories. ?Eating more protein. ?Eating less unhealthy fats. ?Eating a diet that includes fresh fruits and vegetables, whole grains, low-fat dairy products, and lean protein. ?Avoiding foods with added fat, salt, [...] provider. Document Revised: 06/21/2021 Document Reviewed: 06/21/2021 [facility] Patient Education 2023 [employer]. 12/11/2024 12:34:39 BMI for Adults BMI for Adults Body mass index (BMI) is a number found using a person's weight and height. BMI can help tell how much of a person's weight is made up of fat. BMI does not measure body fat directly. It is used instead of tests that directly measure body fat, which can be difficult and expensive. What are BMI measurements used for? BMI is useful to: Find out if your weight puts you at higher risk for medical problems. Help recommend changes, such as in diet and exercise. This can help you reach a healthy weight. BMI screening can be done again to see if these changes are working. How is BMI calculated? Your height and weight are measured. The BMI is found from those numbers. This can be done with U.S[place] or metric measurements. Note that charts and online BMI calculators are available to help you find your BMI quickly and easily without doing these calculations. To calculate your BMI in [place] measurements: 1.Measure your weight in pounds (lb). 2.Multiply the number of pounds by 703. So, for an adult who weighs 150 lb, multiply that number by 703: 150 x 703, which equals 105,450. 3.Measure your height in inches. Then multiply that number by itself to get a measurement called inches squared. So, for an adult who is 70 inches tall, the inches squared measurement is 70 inches x 70 inches, which equals 4,900 inches squared. 4.Divide the total from step 2 (number of lb x 703) by the total from step 3 (inches squared): 105,450 4,900 = 21.5. This is your BMI. To calculate your BMI in metric measurements: 1.Measure your weight in kilograms (kg). For this example, the weight is 70 kg. 2.Measure your height in meters (m). Then multiply that number by itself to get a measurement called meters squared. So, for an adult who is 1.75 m tall, the meters squared measurement is 1.75 m x 1.75 m, which equals 3.1 meters squared. 3.Divide the number of kilograms (your weight) by the meters squared number. In this example: 70 3.1 = 22.6. This is your BMI. What do the results mean? BMI charts are used to see if you are underweight, normal weight, overweight, or obese. The following guidelines will be used: Underweight: BMI less than 18.5. Normal weight: BMI between 18.5 and 24.9. Overweight: BMI between 25 and 29.9. Obese: BMI of 30 or above. BMI is a tool and cannot diagnose a condition. Talk with your health care provider about what your BMI means for you. Keep these notes in mind: Weight includes fat and muscle. Someone with a muscular build, such as an athlete, may have a BMI that is higher than 24.9. In cases like these, BMI is not a correct measure of body fat. If you have a BMI of 25 or higher, your provider may need to do more testing to find out if excess body fat is the cause. BMI is measured the same way for males and females. Females usually have more body fat than males of the same height and weight. Where to find more information For more information about BMI, including tools to quickly find your BMI, go to: Centers for Disease Control and Prevention: cdc.gov [place] [employer]: heart.org National Heart, Lung, and Blood [place]: nhlbi.nih.gov This information is not intended to replace advice given to you by your health care provider. Make sure you discuss any questions you have with your health care provider. Document Revised: 01/13/2023 Document Reviewed: 01/06/2023 [facility] Patient Education 2023 [employer]. Follow Up Care 12/06/2024 08:37:56 With:Irasema Love Address: [address], [address] [place] [address]- When: only if needed [facility] 12-11-2024 Note Patient Education Gastroenterology Obesity, Adult Obesity is the condition of having too much total body fat. Being overweight or obese means that your weight is greater than what is considered healthy for your body size. Obesity is determined by a measurement called BMI (body mass index). BMI is an estimate of body fat and is calculated from height and weight. For adults, a BMI of 30 or higher is considered obese. Obesity can lead to other health concerns and major illnesses, including: ??? Stroke. ??? Coronary artery disease (CAD). ??? Type 2 diabetes. ??? Some types of cancer, including cancers of the colon, breast, uterus, and gallbladder. ??? High blood pressure (hypertension). ??? High cholesterol. ??? Gallbladder stones. Obesity can also contribute to: ??? Osteoarthritis. ??? Sleep apnea. ??? Infertility problems. What are the causes? Common causes of this condition include: ??? Eating daily meals that are high in calories, sugar, and fat. ??? Drinking high amounts of sugar-sweetened beverages, such as soft drinks. ??? Being born with genes that may make you more likely to become obese. ??? Having a medical condition that causes obesity, including: ? Hypothyroidism. ? Polycystic ovarian syndrome (PCOS). ? Binge-eating disorder. ? Belén syndrome. ??? Taking certain medicines, such as steroids, antidepressants, and seizure medicines. ??? Not being physically active (sedentary lifestyle). ??? Not getting enough sleep. What increases the risk? The following factors may make you more likely to develop this condition: ??? Having a family history of obesity. ??? Living in an area with limited access to: ? [place], recreation centers, or sidewalks. ? Healthy food choices, such as grocery stores and farmers' markets. What are the signs or symptoms? The main sign of this condition is having too much body fat. How is this diagnosed? This condition is diagnosed based on: ??? Your BMI. If you are an adult with a BMI of 30 or higher, you are considered obese. ??? Your waist circumference. This measures the distance around your waistline. ??? Your skinfold thickness. Your health care provider may gently pinch a fold of your skin and measure it. You may have other tests to check for underlying conditions. How is this treated? Treatment for this condition often includes changing your lifestyle. Treatment may include some or all of the following: ??? Dietary changes. This may include developing a healthy meal plan. ??? Regular physical activity. This may include activity that causes your heart to beat faster (aerobic exercise) and strength training. Work with your health care provider to design an exercise program that works for you. ??? Medicine to help you lose weight if you are unable to lose one pound a week after six weeks of healthy eating and more physical activity. ??? Treating conditions that cause the obesity (underlying conditions). ??? Surgery. Surgical options may include gastric banding and gastric bypass. Surgery may be done if: ? Other treatments have not helped to improve your condition. ? You have a BMI of 40 or higher. ? You have life-threatening health problems related to obesity. Follow these instructions at home: Eating and drinking ??? Follow recommendations from your health care provider about what you eat and drink. Your health care provider may advise you to: ? Limit fast food, sweets, and processed snack foods. ? Choose low-fat options, such as low-fat milk instead of whole milk. ? Eat five or more servings of fruits or vegetables every day. ? Choose healthy foods when you eat out. ? Keep low-fat snacks available. ? Limit sugary drinks, such as soda, fruit juice, sweetened iced tea, and flavored milk. ??? Drink enough water to keep your urine pale yellow. ??? Do not follow a fad diet. Fad diets can be unhealthy and even dangerous. ??? Other healthful choices include: ? Eat at home more often. This gives you more control over what you eat. ? Learn to read food labels. This will help you understand how much food is considered one serving. ? Learn what a healthy serving size is. Physical activity ??? Exercise regularly, as told by your health care provider. ? Most adults should get up to 150 minutes of moderate-intensity exercise every week. ? Ask your health care provider what types of exercise are safe for you and how often you should exercise. ??? Warm up and stretch before being active. ??? Cool down and stretch after being active. ??? Rest between periods of activity. Lifestyle ??? Work with your health care provider and a dietitian to set a weight-loss goal that is healthy and reasonable for you. ??? Limit your screen time. ??? Find ways to reward yourself that do not involve food. ??? Do not drink alcohol if: ? Your health care provider tells you not to drink. ? You are , may be preg (more content not included)... [facility] 12-07-2024 Evaluation + Plan note Future Appointments Appointment Date:12/14/2024 10:45:00 AM Scheduled Provider: Location:.[facility] [place] Appointment Type:PT 45 (FT) Appointment Date:12/19/2024 10:00:00 AM Scheduled Provider: [facility] App[facility] Type:PT 45 (FT) Appointment Date:12/21/2024 08:00:00 AM Scheduled Provider: [facility] Appointment Type:PT Re-Eval 45 (FT) Appointment Date:08/14/2025 11:00:00 AM Scheduled Provider: Location:[facility] Appointment Type:FM Medicare Wellness Subsequent Future Scheduled TestsMRI Spine Lumbar w/o Contrast 12/11/24MA Mamm Screen w/CAD if perf and 3D [place] 08/14/24 [facility] 12-06-2024 Note ED Patient Education Note Orthopedics Chronic Back Pain Chronic back pain is back pain that lasts longer than 3 months. The cause of your back pain may not be known. Some common causes include: ??? Wear and tear (degenerative disease) of the bones, disks, or tissues that connect bones to each other (ligaments) in your back. ??? Inflammation and stiffness in your back (arthritis). If you have chronic back pain, you may have times when the pain is more intense (flare-ups). You can also learn to manage the pain with home care. Follow these instructions at home: Watch for any changes in your symptoms. Take these actions to help with your pain: Managing pain and stiffness ??? If told, put ice on the painful area. You may be told to apply ice for the first 24?48 hours after a flare-up starts. ? Put ice in a plastic bag. ? Place a towel between your skin and the bag. ? Leave the ice on for 20 minutes, 2?3 times per day. ??? If told, apply heat to the affected area as often as told by your health care provider. Use the heat source that your provider recommends, such as a moist heat pack or a heating pad. ? Place a towel between your skin and the heat source. ? Leave the heat on for 20?30 minutes. ??? If your skin turns bright red, remove the ice or heat right away to prevent skin damage. The risk of damage is higher if you cannot feel pain, heat, or cold. ??? Try soaking in a warm tub. Activity ??? Avoid bending and other activities that make the pain worse. ??? Have good posture when you stand or sit. ? When you stand, keep your upper back and neck straight, with your shoulders pulled back. Avoid slouching. ? When you sit, keep your back straight. Relax your shoulders. Do not round your shoulders or pull them backward. ??? Do not sit or inspector publications one place for too long. ??? Take brief periods of rest during the day. This will reduce your pain. Resting in a lying or standing position is often better than sitting to rest. ??? When you rest for longer periods, mix in some mild activity or stretching between periods of rest. This will help to prevent stiffness and pain. ??? Get regular exercise. Ask your provider what activities are safe for you. ??? You may have to avoid lifting. Ask your provider how much you can safely lift. If you do lift, always use the right technique. This means you should: ? Bend your knees. ? Keep the load close to your body. ? Avoid twisting. Medicines ??? Take rfsn-jdm-wdgfrah and prescription medicines only as told by your provider. ??? You may need to take medicines for pain and inflammation. These may be taken by mouth or put on the skin. You may also be given muscle relaxants. ??? Ask your provider if the medicine prescribed to you: ? Requires you to avoid driving or using machinery. ? Can cause constipation. You may need to take these actions to prevent or treat constipation: ? Drink enough fluid to keep your pee (urine) pale yellow. ? Take fwpi-srg-bgkzlxu or prescription medicines. ? Eat foods that are high in fiber, such as beans, whole grains, and fresh fruits and vegetables. ? Limit foods that are high in fat and processed sugars, such as fried or sweet foods. General instructions ??? Sleep on a firm mattress in a comfortable position. Try lying on your side with your knees slightly bent. If you lie on your back, put a pillow under your knees. ??? Do not use any products that contain nicotine or tobacco. These products include cigarettes, chewing tobacco, and vaping devices, such as e-cigarettes. If you need help quitting, ask your provider. Contact a health care provider if: ??? You have pain that does not get better with rest or medicine. ??? You have new pain. ??? You have a fever. ??? You lose weight quickly. ??? You have trouble doing your normal activities. ??? You feel weak or numb in one or both of your legs or feet. Get help right away if: ??? You are not able to control when you pee or poop. ??? You have severe back pain and: ? Nausea or vomiting. ? Pain in your chest or abdomen. ? Shortness of breath. ? You faint. These symptoms may be an emergency. Get help right away. Call 911. ??? Do not wait to see if the symptoms will go away. ??? Do not drive yourself to the hospital. This information is not intended to replace advice given to you by your health care provider. Make sure you discuss any questions you have with your health care provider. Document Revised: 12/13/2022 Document Reviewed: 12/13/2022 Elsevier Patient Education ? 2023 [employer]. [facility] 11-11-2024 Hospital Discharg e instructions Patient Education 11/11/2024 18:04:28 Asthma Action Plan, Adult Asthma Action Plan, Adult An asthma action plan helps you understand how to manage your asthma and what to do when you have an asthma attack. The action plan is a color-coded plan that lists the symptoms that indicate whether or not your condition is under control and what actions to take. If you have symptoms in the green zone, you are doing well. If you have symptoms in the yellow zone, you are having problems. If you have symptoms in the red zone, you need medical care right away. Follow the plan that you and your health care provider develop. Review your plan with your health care provider at each visit. What triggers your asthma? Knowing the things that can trigger an asthma attack or make your asthma symptoms worse is very important. Talk to your health care provider about your asthma triggers and how to avoid them. Record your known asthma triggers here: What is your personal best peak flow reading? If you use a peak flow meter, determine your personal best reading. Record it here: Green zone This zone means that your asthma is under control. You may not have any symptoms while you are in the green zone. This means that you: Have no coughing or wheezing, even while you are working or playing. Sleep through the night. Are breathing well. Have a peak flow reading that is above (80% of your personal best or greater). If you are in the green zone, continue to manage your asthma as directed. Take these medicines every day: ?Controller medicine and dosage: ?Controller medicine and dosage: ?Controller medicine and dosage: ?Controller medicine and dosage: Before exercise, use this reliever or rescue medicine: Call your health care provider if you are using a reliever or rescue medicine more than 2 3 times a week. Yellow zone Symptoms in this zone mean that your condition may be getting worse. You may have symptoms that interfere with exercise, are noticeably worse after exposure to triggers, or are worse at the first sign of a cold (upper respiratory infection). These may include: Waking from sleep. Coughing, especially at night or first thing in the morning. Mild wheezing. Chest tightness. A peak flow reading that is to (50 79% of your personal best). If you have any of these symptoms: Add the following medicine to the ones that you use daily: ?Reliever or rescue medicine and dosage: ?Additional medicine and dosage: Call your health care provider if: You remain in the yellow zone for hours. You are using a reliever or rescue medicine more than 2 3 times a week. Red zone Symptoms in this zone mean that you should get medical help right away. You will likely feel distressed and have symptoms at rest that restrict your activity. You are in the red zone if: You are breathing hard and quickly. Your nose opens wide, your ribs show, and your neck muscles become visible when you breathe in. Your lips, fingers, or toes are a bluish color. You have trouble speaking in full sentences. Your peak flow reading is less than (less than 50% of your personal best). Your symptoms do not improve within 15 20 minutes after you use your reliever or rescue medicine (bronchodilator). If you have any of these symptoms: These symptoms represent a serious problem that is an emergency. Do not wait to see if the symptoms will go away. Get medical help right away. Call your local emergency services (911 in the [place] Do not drive yourself to the hospital. Use your reliever or rescue medicine. ?Start a nebulizer treatment or take 2 4 puffs from a metered-dose inhaler with a spacer. ?Repeat this action every 15 20 minutes until help arrives. Where to find more information You can find more information about asthma from: Centers for Disease Control and Prevention: www.cdc.gov [employer] [employer]: www.lung.org This information is not intended to replace advice given to you by your health care provider. Make sure you discuss any questions you have with your health care provider. Document Revised: 06/18/2021 Document Reviewed: 06/18/2021 [employer] Patient Education 2023 [employer]. 11/11/2024 18:04:27 Chronic Obstructive Pulmonary Disease Chronic Obstructive Pulmonary Disease Chronic obstructive pulmonary disease (COPD) is a long-term (chronic) condition that affects the lungs. COPD is a general term that can be used to describe many different lung problems that cause lung inflammation and limit airflow, including chronic bronchitis and emphysema. If you have COPD, your lung function will probably never return to normal. In most cases, it gets worse over time. However, there are steps you can take to slow the progression of the disease and improve your quality of life. What are the causes? This condition may be caused by: Smoking. This is the most common cause. Certain genes passed down through families. What increases the risk? The following factors may make you more likely to develop this condition: Being exposed to secondhand smoke from cigarettes, pipes, or cigars. Being exposed to chemicals and other irritants, such as fumes and dust in the work environment. Having chronic lung conditions or infections. What are the signs or symptoms? Symptoms of this condition include: Shortness of breath, especially during physical activity. Chronic cough with a large amount of thick mucus. Sometimes, the cough may not have any mucus (dry cough). Wheezing and rapid breathing. Mullins or bluish discoloration (cyanosis) of the skin, especially in the fingers, toes, or lips. Feeling tired (fatigue). Weight loss. Chest tightness. Frequent infections. Episodes when breathing symptoms become much worse (exacerbations). At the later stages of this disease, you may have swelling in the ankles, feet, or legs. How is this diagnosed? This condition is diagnosed based on: Your medical history. A physical exam. You may also have tests, including: Lung (pulmonary) function tests. This may include a spirometry test, which measures your ability to exhale properly. Chest X-ray. CT scan. Blood tests. How is this treated? This condition may be treated with: Medicines. These may include inhaled rescue medicines to treat acute exacerbations as well as medicines that you take long-term (maintenance medicines) to prevent flare-ups of COPD. ?Bronchodilators help treat COPD by dilating the airways to allow increased airflow and make your breathing more comfortable. ?Steroids can reduce airway inflammation and help prevent exacerbations. Smoking cessation. If you smoke, your health care provider may ask you to quit, and may also recommend therapy or replacement products to help you quit. Pulmonary rehabilitation. This may involve working with a team of health care providers and specialists, such as respiratory, occupational, and physical therapists. Exercise and physical activity. These are beneficial for nearly all people with COPD. Nutrition therapy to gain weight, if you are underweight. Oxygen. Supplemental oxygen therapy is only helpful if you have a low oxygen level in your blood (hypoxemia). Lung surgery or transplant. Palliative care. This is to help people with COPD feel comfortable when treatment is no longer working. Follow these instructions at home: Medicines Take luyx-mhu-tmziops and prescription medicines only as told by your health care provider. This includes inhaled medicines and pills. Talk to your health care provider before taking any cough or allergy medicines. You may need to avoid certain medicines that dry out your airways. Lifestyle If you smoke, the most important thing that you can do is to stop smoking. Continuing to smoke will cause the disease to progress faster. Do not use any products that contain nicotine or tobacco. These products include cigarettes, chewing tobacco, and vaping devices, such as e-cigarettes. If you need help quitting, ask your health care provider. Avoid exposure to things that irritate your lungs, such as smoke, chemicals, and fumes. Stay active, but balance activity with periods of rest. Exercise and physical activity will help you maintain your ability to do things you want to do. Learn and use relaxation techniques to manage stress and to control your breathing. Get the right amount of sleep and get quality sleep. Most adults need 7 or more hours per night. Eat healthy foods. Eating smaller, more frequent meals and resting before meals may help you maintain your strength. Controlled breathing Learn and use controlled breathing techniques as directed by your health care provider. Controlled breathing techniques include: Pursed lip breathing. Start by breathing in (inhaling) through your nose for 1 second. Then, purse your lips as if you were going to whistle and breathe out (exhale) through the pursed lips for 2 seconds. Diaphragmatic breathing. Start by putting one hand on your abdomen just above your waist. Inhale slowly through your nose. The hand on your abdomen should move out. Then purse your lips and exhale slowly. You should be able to feel the hand on your abdomen moving in as you exhale. Controlled coughing Learn and use controlled coughing to clear mucus from your lungs. Controlled coughing is a series of short, progressive coughs. The steps of controlled coughing are: 1.Lean your head slightly forward. 2.Breathe in deeply using diaphragmatic breathing. 3.Try to hold your breath for 3 seconds. 4.Keep your mouth slightly open while coughing twice. 5.Spit any mucus out into a tissue. 6.Rest and repeat the steps once or twice as needed. General instructions Make sure you receive all the vaccines that your health care provider recommends, especially the pneumococcal and influenza vaccines. Preventing infection and hospitalization is very important when you have COPD. Drink enough fluid to keep your urine pale yellow, unless you have a medical condition that requires fluid restriction. Use oxygen therapy and pulmonary rehabilitation if told by your health care provider. If you require home oxygen therapy, ask your health care provider whether you should purchase a pulse oximeter to measure your oxygen level at home. Work with your health care provider to develop a COPD action plan. This will help you know what steps to take if your condition gets worse. Keep other chronic health conditions under control as told by your health care provider. Avoid extreme temperature and humidity changes. Avoid contact with people who have an illness that spreads from person to person (is contagious), such as viral infections or pneumonia. Keep all follow-up visits. This is important. Contact a health care provider if: You are coughing up more mucus than usual. There is a change in the color or thickness of your mucus. Your breathing is more labored than usual. Your breathing is faster than usual. You have difficulty sleeping. You need to use your rescue medicines or inhalers more often than expected. You have trouble doing routine activities such as getting dressed or walking around the house. Get help right away if: You have shortness of breath while you are resting. You have shortness of breath that prevents you from: ?Being able to talk. ?Performing your usual physical activities. You have chest pain lasting longer than 5 minutes. Your skin color is more blue (cyanotic) than usual. You measure low oxygen saturations for longer than 5 minutes with a pulse oximeter. You have a fever. You feel too tired to breathe normally. These symptoms may represent a serious problem that is an emergency. Do not wait to see if the symptoms will go away. Get medical help right away. Call your local emergency services (911 in the [place] Do not drive yourself to the hospital. Summary Chronic obstructive pulmonary disease (COPD) is a long-term (chronic) condition that affects the lungs. Your lung function will probably never return to normal. In most cases, it gets worse over time. However, there are steps you can take to slow the progression of the disease and improve your quality of life. Treatment for COPD may include taking medicines, quitting smoking, pulmonary rehabilitation, and changes to diet and exercise. As the disease progresses, you may need oxygen therapy, a lung transplant, or palliative care. To help manage your condition, do not smoke, avoid exposure to things that irritate your lungs, stay up to date on all vaccines, and follow your health care provider's instructions for taking medicines. This information is not intended to replace advice given to you by your health care provider. Make sure you discuss any questions you have with your health care provider. Document Revised: 03/02/2021 Document Reviewed: 03/03/2021 [employer] Patient Education 2023 [employer]. 11/11/2024 18:04:26 Blood Glucose Monitoring, Adult Blood Glucose Monitoring, Adult To manage your diabetes, you will need to keep track of your blood sugar (glucose). Check your blood glucose as often as told. Keep a record of your results over time. This can help you: Know when to adjust your diabetes management plan with your health care provider. See how food, exercise, illness, and medicines affect your blood glucose. Know what your blood glucose is at any time. Your provider will set specific goals for your blood glucose levels. In many cases, these goals may be: Before meals (preprandial): 80 130 mg/dL (4.4 7.2 mmol/L). After meals (postprandial): below 180 mg/dL (10 mmol/L). A1C level: less than 7%. Supplies needed: Blood glucose meter. Test strips for your meter. Each meter has its own strips. You must use the strips that came with your meter. A needle to prick your finger (lancet). Do not use a lancet more than once. A device that holds the lancet (lancing device). A journal or logbook to write down your results. How to check your blood glucose Checking your blood glucose 1.Wash your hands with soap and water for at least 20 seconds. 2.Prick the side of your finger with the lancet. Do not prick the tip of your finger. Do not use the same finger more than once. 3.Gently rub the finger until a small drop of blood appears. 4.Follow the instructions that came with the meter about how to insert the test strip, apply blood to the strip, and use the meter. 5.Write down your result and any notes. Using alternative sites Some meters let you use other areas of your body (alternative sites) to test your blood. The most common places are the forearm, the thigh, and the palm of your hand. Alternative sites may not be as accurate as your fingers. The result you get may also be delayed. Use the finger only, and do not use alternative sites, if: You think you have low blood glucose (hypoglycemia). You sometimes do not know that your blood glucose is getting low (hypoglycemia unawareness). General tips and recommendations Blood glucose log Write down the result each time you check your blood glucose. Note anything that may be affecting your blood glucose. This can help you and your provider: ?Look for patterns over time. ?Adjust your management plan as needed. Check if your meter has an carlo or lets you download your records to a computer. Most meters keep a record of glucose readings in the meter. If you have type 1 diabetes: You may need to check your blood glucose 4 or more times a day. Check your blood glucose as often as told by your provider. This may include: ?Before each meal and snack. ?Two hours after a meal. ?Before bedtime. ?If you have symptoms of hypoglycemia. ?After treating your hypoglycemia. ?Before doing things that have a risk of injury, such as driving or using machinery. ?Before and after exercise. ?Between 2:00 a.m. and 3:00 a.m., as told. You may need to check your blood glucose more often, such as up to 6 10 times a day, if: ?You have diabetes that is not well controlled. ?You are ill. ?You have a history of severe hypoglycemia. ?You have hypoglycemia unawareness. If you have type 2 diabetes: You may need to check your blood glucose 2 or more times a day. Check your blood glucose as often as told by your provider. This may include: ?Before and after exercise. ?Before doing things that have a risk of injury, such as driving or using machinery. You may need to check your blood glucose more often if: ?Your medicine is being adjusted. ?Your diabetes is not well controlled. ?You are ill. General tips Make sure you always have your supplies with you. After you use a few boxes of test strips, adjust (calibrate) your blood glucose meter. Follow the instructions that came with your meter. If you have questions or need help, all blood glucose meters have a 24-hour hotline phone number that you can call. Also contact your provider with any questions or concerns. Where to find more information The [place] [employer]: diabetes.org The Association of Diabetes Care & Education Specialists: diabeteseducator.org Contact a health care provider if: Your blood glucose is at or above 240 mg/dL (13.3 mmol/L) for 2 days in a row. You have been sick or have had a fever for 2 days or longer and are not getting better. You have any of these problems for more than 6 hours: ?You cannot eat or drink. ?You have nausea or vomiting. ?You have diarrhea. Get help right away if: Your blood glucose is lower than 54 mg/dL (3 mmol/L). You become confused, or you have trouble thinking clearly. You have trouble breathing. You have moderate to high ketone levels in your pee (urine). These symptoms may be an emergency. Get help right away. Call 911. Do not wait to see if the symptoms will go away. Do not drive yourself to the hospital. This information is not intended to replace advice given to you by your health care provider. Make sure you discuss any questions you have with your health care provider. Document Revised: 03/11/2023 Document Reviewed: 03/11/2023 [employer] Patient Education 2023 [employer]. Follow Up Care 08/14/2024 12:28:08 With:Irasema Love Address: [address] [place] [address], [facility] [place] [address]- When:Within 6 Month(s) Comments:[facility] 11-11-2024 Note Patient Education Endocrinology Blood Glucose Monitoring, Adult To manage your diabetes, you will need to keep track of your blood sugar (glucose). Check your blood glucose as often as told. Keep a record of your results over time. This can help you: ??? Know when to adjust your diabetes management plan with your health care provider. ??? See how food, exercise, illness, and medicines affect your blood glucose. ??? Know what your blood glucose is at any time. Your provider will set specific goals for your blood glucose levels. In many cases, these goals may be: ??? Before meals (preprandial): 80?130 mg/dL (4.4?7.2 mmol/L). ??? After meals (postprandial): below 180 mg/dL (10 mmol/L). ??? A1C level: less than 7%. Supplies needed: ??? Blood glucose meter. ??? Test strips for your meter. Each meter has its own strips. You must use the strips that came with your meter. ??? A needle to prick your finger (lancet). Do not use a lancet more than once. ??? A device that holds the lancet (lancing device). ??? A journal or logbook to write down your results. How to check your blood glucose Checking your blood glucose 1. Wash your hands with soap and water for at least 20 seconds. 2. Prick the side of your finger with the lancet. Do not prick the tip of your finger. Do not use the same finger more than once. 3. Gently rub the finger until a small drop of blood appears. 4. Follow the instructions that came with the meter about how to insert the test strip, apply blood to the strip, and use the meter. 5. Write down your result and any notes. Using alternative sites Some meters let you use other areas of your body (alternative sites) to test your blood. The most common places are the forearm, the thigh, and the palm of your hand. Alternative sites may not be as accurate as your fingers. The result you get may also be delayed. Use the finger only, and do not use alternative sites, if: ??? You think you have low blood glucose (hypoglycemia). ??? You sometimes do not know that your blood glucose is getting low (hypoglycemia unawareness). General tips and recommendations Blood glucose log ??? Write down the result each time you check your blood glucose. Note anything that may be affecting your blood glucose. This can help you and your provider: ? Look for patterns over time. ? Adjust your management plan as needed. ??? Check if your meter has an carlo or lets you download your records to a computer. Most meters keep a record of glucose readings in the meter. If you have type 1 diabetes: ??? You may need to check your blood glucose 4 or more times a day. Check your blood glucose as often as told by your provider. This may include: ? Before each meal and snack. ? Two hours after a meal. ? Before bedtime. ? If you have symptoms of hypoglycemia. ? After treating your hypoglycemia. ? Before doing things that have a risk of injury, such as driving or using machinery. ? Before and after exercise. ? Between 2:00 a.m. and 3:00 a.m., as told. ??? You may need to check your blood glucose more often, such as up to 6?10 times a day, if: ? You have diabetes that is not well controlled. ? You are ill. ? You have a history of severe hypoglycemia. ? You have hypoglycemia unawareness. If you have type 2 diabetes: ??? You may need to check your blood glucose 2 or more times a day. Check your blood glucose as often as told by your provider. This may include: ? Before and after exercise. ? Before doing things that have a risk of injury, such as driving or using machinery. ??? You may need to check your blood glucose more often if: ? Your medicine is being adjusted. ? Your diabetes is not well controlled. ? You are ill. General tips ??? Make sure you always have your supplies with you. ??? After you use a few boxes of test strips, adjust (calibrate) your blood glucose meter. Follow the instructions that came with your meter. ??? If you have questions or need help, all blood glucose meters have a 24-hour hotline phone number that you can call. Also contact your provider with any questions or concerns. Where to find more information ??? The [place] [employer] Association: diabetes.org ??? The Association of Diabetes Care & Education Specialists: diabeteseducator.org Contact a health care provider if: ??? Your blood glucose is at or above 240 mg/dL (13.3 mmol/L) for 2 days in a row. ??? You have been sick or have had a fever for 2 days or longer and are not getting better. ??? You have any of these problems for more than 6 hours: ? You cannot eat or drink. ? You have nausea or vomiting. ? You have diarrhea. Get help right away if: ??? Your blood glucose is lower than 54 mg/dL (3 mmol/L). ??? You become confused, or you have trouble thinking clearly. ??? You have trouble breathing. ??? You have moderate to high ketone levels in y (more content not included)... [facility] 10-15-2024 Telephone encounter Note Most recent Endocrinology visit: Last encounter Visit on 06/01/2024 (with Edmundo Devlin) 07/01/2023 [facility] with EDMUNDO DEVLIN for Type 2 diabetes mellitus without complication, without long-term current use of insulin (HCC) 06/01/2024 [facility] with EDMUNDO DEVLIN for Type 2 diabetes mellitus without complication, without long-term current use of insulin (HCC) No future appt scheduled in ENDO. Please route to local appt/scheduling pool if appt is needed? Requested Prescriptions Pending Prescriptions Disp Refills MOUNJARO 5 mg/0.5 mL pen injector [Pharmacy Med Name: MOUNJARO 5MG/0.5ML INJ (4 PENS)] 2 mL 2 Sig: ADMINISTER 5 MG UNDER THE SKIN 1 TIME A WEEK Hemoglobin A1c: None on file in the last 12 months TSH: None on file in the last 12 months Free T3: None on file in the last 12 months Free T4: None on file in the last 12 months Thyroglobulin: None on file in the last 12 months Vitamin D: None on file in the last 12 months Hematocrit: None on file in the last 12 months Creatinine: None on file in the last 12 months eGFR: None on file in the last 12 months Potassium: None on file in the last 12 months Testosterone: None on file in the last 12 months IGF: None on file in the last 12 months Prolactin: None on file in the last 12 months [facility] 10-15-2024 Miscellaneous Notes Most recent Endocrinology visit: Last encounter Visit on 06/01/2024 (with Edmundo Devlin) 07/01/2023 in [facility] with LUDMILAKEVINTRUNGSAMANTHA VALDEZIO for Type 2 diabetes mellitus without complication, without long-term current use of insulin (HCC) 06/01/2024 in [facility] with EDMUNDO DEVLIN for Type 2 diabetes mellitus without complication, without long-term current use of insulin (HCC) No future appt scheduled in ENDO. Please route to local appt/scheduling pool if appt is needed? Requested Prescriptions Pending Prescriptions Disp Refills MOUNJARO 5 mg/0.5 mL pen injector [Pharmacy Med Name: MOUNJARO 5MG/0.5ML INJ (4 PENS)] 2 mL 2 Sig: ADMINISTER 5 MG UNDER THE SKIN 1 TIME A WEEK Hemoglobin A1c: None on file in the last 12 months TSH: None on file in the last 12 months Free T3: None on file in the last 12 months Free T4: None on file in the last 12 months Thyroglobulin: None on file in the last 12 months Vitamin D: None on file in the last 12 months Hematocrit: None on file in the last 12 months Creatinine: None on file in the last 12 months eGFR: None on file in the last 12 months Potassium: None on file in the last 12 months Testosterone: None on file in the last 12 months IGF: None on file in the last 12 months Prolactin: None on file in the last 12 months documented in this encounter [facility] 09-26-2024 Note Progress Note-Physic michael Patient: ALMA DELIA PEARL Age: 39 years Sex: Female : 1985 Associated Diagnoses: None Author: India KURTZ, Elizabet Lemos Postoperative Information Postoperative disposition: Postoperative disposition: Home. Optimetrix number: Optimetrix number [id number]. Anesthetic utilized: Monitored anesthesia care. Health Status Allergies: Allergic Reactions (All) Severity Not Documented Codeine- Childhood. Eggs- Vomiting. Imitrex- Chest tightness, breathing and unknown. Latex- Hives and rash. Latuda- Intolerance and agitation. Morphine- Sob and rash. Penicillin- Childhood. Pyridium- Pain. Nonallergic Reactions (All) Severity Not Documented Dairy- Unknown. Canceled/Inactive Reactions (All) Severity Not Documented Cipro- No reactions were documented. Ciprofloxacin- Unknown. Erythromycin- Intolerance. Current medications: (Selected) Inpatient Medications Ordered Lactated Ringers IV Padma 1000 mL 1,000 mL: 1,000 mL, IV, 100 mL/hr, Routine, Start date 09/26/24 10:12:00 EDT, 10 hour(s), Total volume (mL): 1,000, 134.9 kg, 2.56, m2 Sodium Chloride 0.9% IV Padma 1000 mL 1,000 mL: 1,000 mL, IV, 20 mL/hr, Routine, Start date 09/26/24 6:46:00 EDT, 50 hour(s), Total volume (mL): 1,000, 134.9 kg, 2.56, m2 Zofran 4 mg/2 mL Injection: 4 mg = 2 mL, Injection, IV Push, Once PRN Nausea/Vomiting, Routine, Start date 09/26/24 10:12:00 EDT, 09/26/24 10:12:00 EDT Prescriptions Prescribed Albuterol (Eqv-ProAir HFA) 90 mcg/inh inhalation aerosol: 2 puff(s), Inhalation, q6hr, 18 gm, Refill(s) 4, [facility] #[id number], 175, cm, 08/14/24 11:49:00 EDT, Height/Length Dosing, 135, kg, 08/14/24 11:49:00 EDT, Weight Dosing Flonase 0.05 mg/inh [place]: 1 spray(s), Nasal, BID, 16 gram, Refill(s) 5, each nostril, [facility] #[id number], 175.2, cm, 06/11/24 14:27:00 EST, Height/Length Dosing, 136.9, kg, 06/11/24 14:27:00 EST, Weight Dosing Nebulizer Machine: Nebulizer Machine, See Instructions, 1 EA, 0, Nebulizer Machine, [facility] #[id number], Supply, 175, cm, 07/02/21 10:47:00 EST, Height/Length Dosing, 133, kg, 07/02/21 10:47:00 EST, Weight Dosing Nebulizer Tubing and Mouthpiece Kit: Nebulizer Tubing and Mouthpiece Kit, See Instructions, 1 kit(s), 0, Nebulizer Tubing and Mouthpiece Kit, Supply Nebulizer and supplies: Nebulizer and supplies, See Instructions, 1 EA, 0, Pt requires nebulizer and tubing/supplies DX: J45.909, Supply Test strips-True Metrix: Test strips-True Metrix, See Instructions, 100 EA, 2, Blood glucose test strips. Use daily to test fasting blood sugars and as needed for symptomatic high or low blood sugars, [facility], Supply, 175, cm, 09/15/20 13:52:00 EDT, Hei... Voltaren Gel 1% Gel: 1 carlo, Topical, QID for pain, 100 gram, Refill(s) 0, [facility] #[id number], 175, cm, 08/14/24 11:49:00 EDT, Height/Length Dosing, 135, kg, 08/14/24 11:49:00 EDT, Weight Dosing Zofran 4 mg Tab: 4 mg = 1 tab(s), Oral, q8hr, PRN Nausea/Vomiting, # 12 tab(s), Refills(s) 0 albuterol 0.083% Inh Padma 3 mL: 0.083% - 3mL dosing units, Inhalation, q4hr Wheezing, 30 EA, Refill(s) 11, [facility] #[id number], 175, cm, 08/14/24 11:49:00 EDT, Height/Length Dosing, 135, kg, 08/14/24 11:49:00 EDT, Weight Dosing cholecalciferol 50,000 intl units oral capsule: 2,500 mcg = 2 cap(s), Oral, qWeek, # 12 cap(s), Refills(s) 2, Pharmacy: [facility] #[id number], 175, cm, 08/14/24 11:49:00 EDT, Height/Length Dosing, 135, kg, 08/14/24 11:49:00 EDT, Weight Dosing ferrous sulfate 325 mg oral enteric coated tablet: 650 mg = 2 tab(s), Oral, Every other day, # 45 tab(s), Refills(s) 3, Pharmacy: [facility] #[id number], 175, cm, 08/14/24 11:49:00 EDT, Height/Length Dosing, 135, kg, 08/14/24 11:49:00 EDT, Weight Dosing lancets: lancets, See Instructions, 100 EA, 3, lancets test daily E11.9, [facility] #[id number], Supply, 175, cm, 04/16/20 15:38:00 EST, Height/Length Dosing, 133.2, kg, 04/16/20 15:38:00 EST, Weight Dosing lidocaine Top 5% film Patch: 1 patch(es), Topical, Daily, 7 patch(es), Refill(s) 1, apply 12 hours on and 12 hours off daily, [facility] #[id number], 175, cm, 08/14/24 11:49:00 EDT, Height/Length Dosing, 135, kg, 08/14/24 11:49:00 EDT, Weight Dosing na: na, See Instructions, 1 bottle(s), 6, provide patient with lancets and glucometer strips. Check glucose daily., [facility] #[id number], Supply nystatin Top 100,000 units/g Crm 15 gram: 1 carlo, Topical, BID, 30 gram, Refill(s) 1, [facility] #[id number], 173, cm, 12/21/22 13:04:00 EDT, Height/Length Dosing, 137.9, kg, 12/21/22 13:04:00 EDT, Weight Dosing omeprazole 40 mg Cap-DR: 40 mg = 1 cap(s), Oral, BID, # 90 cap(s), Refills(s) 7, Pharmacy: [facility] #[id number], 175, cm, 09/12/24 13:03:00 EDT, Height/Length Dosing, 134.9, kg, 09/12/24 13:03:00 EDT, Weight Dosing promethazine 25 mg Tab: 25 mg = 1 tab(s), Oral, TID, # 15 tab(s), Refills(s) 0, Pharmacy: [facility] #[id number], (more content not included)... [facility] Comment on above: Result Comment: Elec tronically Signed By: Elizabet Osborne MD\.br\Date and Time Signed: 09/26/24 14:45 EDT 09-26-2024 Evaluation + Plan note Extrac mayur from: Title:ANES Post-operative Note - Endo Author:Elizabet Hooper MD Date:09/26/24 Plan Transfer/Discharge: Transfer/Discharge Discharge when meets criteria ( From PACU to Ambulatory Surgery Unit, and To home ). Extracted from: Title:ANES Pre-operative Note - Endo Author:Elizabet Osborne MD Date:09/26/24 Plan [place] [employer] Anesthesiologists (ASA) physical status classification: Class III. Anesthetic Preoperative Plan: Anesthesia General, and -TIVA. Future Appointments Appointment Date:11/14/2024 10:00:00 AM Scheduled Provider:Irasema Love Location:[facility] Appointment Type: Open Appointment Date:08/14/2025 11:00:00 AM Scheduled Provider: Location:[facility] Appointment Type: Medicare Wellness Subsequent Future Scheduled Tests Radiology* MA Mamm Screen w/CAD if perf and 3D [place] 08/14/24 [facility] 05-21-2025 Hospital Discharge instructions Patient Education 09/26/2024 11:33:10 Duodenitis Duodenitis Duodenitis is when the lining of the first part of your small intestine (duodenum) becomes inflamed. It is often caused by a bacterial infection. You may also have open sores in your intestine calledulcers. Duodenitis may start all of a sudden and last for a short time (acute). It may also develop over time and last for months or years (chronic). What are the causes? The most common cause of this condition is an infection from a type of bacteria called Helicobacterpylori (H. pylori). Other causes include: Long-term use of NSAIDs, such as ibuprofen. Using too much alcohol. An infection of the small intestine caused by the Giardia parasite (giardiasis). Crohn's disease. Certain diseases of the body's defense system (immune system). Certain treatments for cancer. What increases the risk? You may be more likely to develop this condition if: You smoke cigarettes. You drink alcohol. You have a family history of duodenitis. You take NSAIDs. You eat a high-fat diet. What are the signs or symptoms? Symptoms of this condition may include: Epigastric pain. This is a gnawing or burning pain in the upper center of your abdomen. It may get worse when your stomach is empty and may get better after you eat. Cramps in your abdomen. Nausea and vomiting. Bloody vomit. Stools that are bloody, dark, or look like tar. Diarrhea. Weight loss. Feeling tired (fatigue). How is this diagnosed? This condition may be diagnosed based on your medical history and a physical exam. You may also have tests, such as: Blood tests. Stool tests. A test that checks the gases in your breath. An X-ray that is done after you swallow a liquid called barium. The barium makes your digestive tract easier to see. Endoscopy. This is an exam that is done by putting a thin tube with a camera on the end (endoscope)down your throat. A biopsy may be taken. This is when a sample of tissue from your duodenum is removed with the scope and looked at under a microscope to check if the tissue is infected or inflamed. How is this treated? Treatment depends on the cause of your condition. Treatment may include: Antibiotics to treat H. pylori infection. Stopping your intake of NSAIDs. Medicine to reduce the amount of acid your stomach makes. Medicine to treat other conditions, such as Crohn's disease or giardiasis. Surgery to treat severe inflammation that causes scarring or severe bleeding. Follow these instructions at home: Medicines Take dotu-hvt-wtgwimy and prescription medicines only as told by your health care provider. If you were prescribed antibiotics, take them as told by your health care provider. Do not stop using the antibiotic even if you start to feel better. Eating and drinking Eat small, frequent meals. Do not drink alcohol. Drink enough water to keep your urine pale yellow. Follow instructions from your health care provider about what you may eat and drink. You may be asked to avoid: ?Drinks with caffeine. ?Chocolate. ?Peppermint or mint-flavored food or drinks. ?Garlic or onions. ?Spicy foods. ?[place] fruits. ?Tomato-based foods. ?Fatty or fried foods. General instructions Do not use any products that contain nicotine or tobacco. These products include cigarettes, chewing tobacco, and vaping devices, such as e-cigarettes. If you need help quitting, ask your health careprovider. Contact a health care provider if: You have a fever. Your symptoms come back, get worse, or do not get better with treatment. You feel dizzy or light-headed. You vomit blood. You have a lot of blood in your stool. You have severe pain in your abdomen. Your abdomen swells and is painful. This information is not intended to replace advice given to you by your health care provider. Make sure you discuss any questions you have with your health care provider. Document Revised: 11/08/2022 Document Reviewed: 11/08/2022 [employer] Patient Education 2023 [employer]. 09/26/2024 11:33:03 Esophagitis Esophagitis Esophagitis is inflammation of the esophagus. The esophagus is the tube that carries food from the mouth to the stomach. Esophagitis can cause soreness or pain in the esophagus. This condition can make it difficult and painful to swallow. What are the causes? Most causes of esophagitis are not serious. Common causes of this condition include: Gastroesophageal reflux disease (GERD). This is when stomach contents move back up into the esophagus (reflux). Repeated vomiting. An allergic reaction, especially caused by food allergies (eosinophilic esophagitis). Injury to the esophagus by swallowing large pills with or without water, or swallowing certain types of medicines. Swallowing harmful chemicals, such as household cleaning products. Drinking a lot of alcohol. An infection of the esophagus. This most often occurs in people who have a weakened immune system. Radiation or chemotherapy treatment for cancer. Certain diseases such as sarcoidosis, Crohn's disease, and scleroderma. What are the signs or symptoms? Symptoms of this condition include: Difficult or painful swallowing. Pain with swallowing acidic liquids, such as citrus juices. You may also have pain when you burp. Chest pain and difficulty breathing. Nausea and vomiting. Pain in the abdomen. Weight loss. Ulcers in the mouth and white patches in the mouth (candidiasis). Fever. Coughing up blood or vomiting blood. Stool that is black, tarry, or bright red. How is this diagnosed? This condition may be diagnosed based on your medical history and a physical exam. You may also have other tests, including: A test to examine your esophagus and stomach with a small flexible tube with a camera (endoscopy). A test that measures the acidity level in your esophagus. A test that measures how much pressure is on your esophagus. A barium swallow or modified barium swallow to show the shape, size, and functioning of your esophagus. Allergy tests. How is this treated? Treatment for this condition depends on the cause of your esophagitis. In some cases, steroids or other medicines may be given to help relieve your symptoms or to treat the underlying cause of your condition. You may have to make some lifestyle changes, such as: Avoiding alcohol. Quitting any products that contain nicotine or tobacco. These products include cigarettes, chewing tobacco, and vaping devices, such as e-cigarettes. If you need help quitting, ask your health care provider. Changing your diet. Exercising. Changing your sleep habits and your sleep environment. Follow these instructions at home: Medicines Take jeqv-ztx-mdbksvs and prescription medicines only as told by your health care provider. Do not take aspirin, ibuprofen, or other NSAIDs unless your health care provider told you to do so. If you have trouble taking pills: ?Use a pill splitter to decrease the size of the pill. This will decrease the chance of the pill getting stuck or injuring your esophagus. ?Drink water after you take a pill. Eating and drinking Avoid foods and drinks that seem to make your symptoms worse. Follow a diet as recommended by your health care provider. This may involve avoiding foods and drinks such as: ?Coffee and tea, with or without caffeine. ?Drinks that contain alcohol. ?Energy drinks and sports drinks. ?Carbonated drinks or sodas. ?Chocolate and cocoa. ?Peppermint and mint flavorings. ?Garlic and onions. ?Horseradish. ?Spicy and acidic foods, including peppers, chili powder, bronson powder, vinegar, hot sauces, and barbecue sauce. ?[place] fruit juices and citrus fruits, such as oranges, neo, and limes. ?Tomato-based foods, such as red sauce, chili, salsa, and pizza with red sauce. ?Fried and fatty foods, such as donuts, slovak fries, potato chips, and high-fat dressings. ?High-fat meats, such as hot dogs and fatty cuts of red and white meats, such as rib eye steak, sausage, ham, and ferreira. ?High-fat dairy items, such as whole milk, butter, and cream cheese. Lifestyle Eat small, frequent meals instead of large meals. Avoid drinking large amounts of liquid with your meals. Avoid eating meals during the 2 3 hours before bedtime. Avoid lying down right after you eat. Do not exercise right after you eat. Do not use any products that contain nicotine or tobacco. These products include cigarettes, chewing tobacco, and vaping devices, such as e-cigarettes. If you need help quitting, ask your health careprovider. General instructions Pay attention to any changes in your symptoms. Let your health care provider know about them. Wear loose-fitting clothing. Do not wear anything tight around your waist that causes pressure on your abdomen. Raise (elevate) the head of your bed about 6 inches (15 cm). You may need to use a wedge to do this. Try relaxation strategies such as yoga, deep breathing, or meditation to manage stress. If you needhelp reducing stress, ask your health care provider. If you are overweight, reduce your weight to an amount that is healthy for you. Ask your health care provider for guidance about a safe weight loss goal. Keep all follow-up visits. This is important. Contact a health care provider if: You have new symptoms. You have unexplained weight loss. You have difficulty swallowing, or it hurts to swallow. You have wheezing or a cough that does not go away. Your symptoms do not improve with treatment. You have frequent heartburn for more than two weeks. Get help right away if: You have sudden severe pain in your arms, neck, jaw, teeth, or back. You suddenly feel sweaty, dizzy, or light-headed. You have chest pain or shortness of breath. You vomit and the vomit is green, yellow, or black, or it looks like blood or coffee grounds. Your stool is red, bloody, or black. You have a fever. You cannot swallow, drink, or eat. These symptoms may represent a serious problem that is an emergency. Do not wait to see if the symptoms will go away. Get medical help right away. Call your local emergency services (911 in the [place] Do not drive yourself to the hospital. Summary Esophagitis is inflammation of the esophagus. Most causes of esophagitis are not serious. Follow your health care provider's instructions about eating and drinking. Contact a health care provider if you have new symptoms, have weight loss, or coughing that does not stop. Get help right away if you have severe pain in the arms, neck, jaw, teeth, or back, or if you have chest pain, shortness of breath, or fever. This information is not intended to replace advice given to you by your health care provider. Make sure you discuss any questions you have with your health care provider. Document Revised: 11/03/2020 Document Reviewed: 11/03/2020 [employer] Patient Education 2023 [employer]. 09/26/2024 11:32:59 Hiatal Hernia Hiatal Hernia A hiatal hernia occurs when part of the stomach slides above the muscle that separates the abdomen from the chest (diaphragm). A person can be born with a hiatal hernia (congenital), or it may develop over time. In almost all cases of hiatal hernia, only the top part of the stomach pushes through the diaphragm. Many people have a hiatal hernia with no symptoms. The larger the hernia, the more likely it is that you will have symptoms. In some cases, a hiatal hernia allows stomach acid to flow back into the tube that carries food from your mouth to your stomach (esophagus). This may cause heartburn symptoms. The development of heartburn symptoms may mean that you have a condition called gastroesophageal reflux disease (GERD). What are the causes? This condition is caused by a weakness in the opening (hiatus) where the esophagus passes through the diaphragm to attach to the upper part of the stomach. A person may be born with a weakness in thehiatus, or a weakness can develop over time. What increases the risk? This condition is more likely to develop in: Older people. Age is a major risk factor for a hiatal hernia, especially if you are over the age of50. women. People who are overweight. People who have frequent constipation. What are the signs or symptoms? Symptoms of this condition usually develop in the form of GERD symptoms. Symptoms include: Heartburn. Upset stomach (indigestion). Trouble swallowing. Coughing or wheezing. Wheezing is making high-pitched whistling sounds when you breathe. Sore throat. Chest pain. Nausea and vomiting. How is this diagnosed? This condition may be diagnosed during testing for GERD. Tests that may be done include: X-rays of your stomach or chest. An upper gastrointestinal (GI) series. This is an X-ray exam of your GI tract that is taken after you swallow a chalky liquid that shows up clearly on the X-ray. Endoscopy. This is a procedure to look into your stomach using a thin, flexible tube that has a tiny camera and light on the end of it. How is this treated? This condition may be treated by: Dietary and lifestyle changes to help reduce GERD symptoms. Medicines. These may include: ?Azvf-bck-bhwubwd antacids. ?Medicines that make your stomach empty more quickly. ?Medicines that block the production of stomach acid (H2 blockers). ?Stronger medicines to reduce stomach acid (proton pump inhibitors). Surgery to repair the hernia, if other treatments are not helping. If you have no symptoms, you may not need treatment. Follow these instructions at home: Lifestyle and activity Do not use any products that contain nicotine or tobacco. These products include cigarettes, chewing tobacco, and vaping devices, such as e-cigarettes. If you need help quitting, ask your health careprovider. Try to achieve and maintain a healthy body weight. Avoid putting pressure on your abdomen. Anything that puts pressure on your abdomen increases the amount of acid that may be pushed up into your esophagus. ?Avoid bending over, especially after eating. ?Raise the head of your bed by putting blocks under the legs. This keeps your head and esophagus higher than your stomach. ?Do not wear tight clothing around your chest or stomach. ?Try not to strain when having a bowel movement, when urinating, or when lifting heavy objects. Eating and drinking Avoid foods that can worsen GERD symptoms. These may include: ?Fatty foods, like fried foods. ?[place] fruits, like oranges or lemon. ?Other foods and drinks that contain acid, like orange juice or tomatoes. ?Spicy food. ?Chocolate. Eat frequent small meals instead of three large meals a day. This helps prevent your stomach from getting too full. ?Eat slowly. ?Do not lie down right after eating. ?Do not eat 1 2 hours before bed. Do not drink beverages with caffeine. These include cola, coffee, cocoa, and tea. Do not drink alcohol. General instructions Take ioed-zmy-amrldac and prescription medicines only as told by your health care provider. Keep all follow-up visits. Your health care provider will want to check that any new prescribed medicines are helping your symptoms. Contact a health care provider if: Your symptoms are not controlled with medicines or lifestyle changes. You are having trouble swallowing. You have coughing or wheezing that will not go away. Your pain is getting worse. Your pain spreads to your arms, neck, jaw, teeth, or back. You feel nauseous or you vomit. Get help right away if: You have shortness of breath. You vomit blood. You have bright red blood in your stools. You have black, tarry stools. These symptoms may be an emergency. Get help right away. Call 911. Do not wait to see if the symptoms will go away. Do not drive yourself to the hospital. Summary A hiatal hernia occurs when part of the stomach slides above the muscle that separates the abdomen from the chest. A person may be born with a weakness in the hiatus, or a weakness can develop over time. Symptoms of a hiatal hernia may include heartburn, trouble swallowing, or sore throat. Management of a hiatal hernia includes eating frequent small meals instead of three large meals a day. Get help right away if you vomit blood, have bright red blood in your stools, or have black, tarry stools. This information is not intended to replace advice given to you by your health care provider. Make sure you discuss any questions you have with your health care provider. Document Revised: 06/22/2022 Document Reviewed: 06/22/2022 [employer] Patient Education 2023 [employer]. 09/26/2024 11:32:46 Endoscopy, Care After Procedure [facility] ([facility]) Endoscopy Care After Procedure Please read the instructions outlined below and refer to this sheet in the next few weeks. These discharge instructions provide you with general information on caring [facility] Your doctor may also give you specific instructions. While your treatment has been planned according to the most current medical practices available, unavoidable complications occasionally occur. If you have any problems or questions after discharge, please call your doctor. ACTIVITY You may resume your regular activity but move at a slower pace for the next 24 hours. Take frequent rest periods for the next 24 hours. Walking will help expel (get rid of) the air and reduce the bloated feeling in your abdomen. No driving for 24 hours (because of the anesthesia (medicine) used during the test). You may shower. Do not sign any important legal documents or operate any machinery for 24 hours (because of the anesthesia used during the test). NUTRITION Drink plenty of fluids. You may resume your normal diet. Begin with a light meal and progress to your normal diet. Avoid alcoholic beverages for 24 hours or as instructed by your caregiver. MEDICATIONS You may resume your normal medications unless your caregiver tells you otherwise. WHAT YOU CAN EXPECT TODAY You may experience abdominal discomfort such as a feeling of fullness or gas pains. FOLLOW-UP Your doctor will discuss the results of your test with you. SEEK IMMEDIATE MEDICAL ATTENTION IF ANY OF THE FOLLOWING OCCUR: Excessive nausea (feeling sick to your stomach) and/or vomiting. Severe abdominal pain and distention (swelling). Trouble swallowing. Temperature over 100 F (37.8 C). Rectal bleeding or vomiting of blood. Document Released: 12/07/2004 Document Re-Released: 10/17/2006 [employer] Patient Information 2010 [employer]. 09/26/2024 11:32:40 Hemorrhoids, Ngbn-rz-Cvrd Hemorrhoids Hemorrhoids are swollen veins that may form: In the butt (rectum). These are called internal hemorrhoids. Around the opening of the butt (anus). These are called external hemorrhoids. Most hemorrhoids do not cause very bad problems. They often get better with changes to your lifestyle and what you eat. What are the causes? Having trouble pooping (constipation) or watery poop (diarrhea). Pushing too hard when you poop. . Being very overweight (obese). Sitting for too long. Riding a bike for a long time. Heavy lifting or other things that take a lot of effort. Anal sex. What are the signs or symptoms? Pain. Itching or soreness in the butt. Bleeding from the butt. Leaking poop. Swelling. One or more lumps around the opening of your butt. How is this treated? In most cases, hemorrhoids can be treated at home. You may be told to: Change what you eat. Make changes to your lifestyle. If these treatments do not help, you may need to have a procedure done. Your doctor may need to: Place rubber bands at the bottom of the hemorrhoids to make them fall off. Put medicine into the hemorrhoids to shrink them. Shine a type of light on the hemorrhoids to cause them to fall off. Do surgery to get rid of the hemorrhoids. Follow these instructions at home: Medicines Take uwbh-pjn-dlluxno and prescription medicines only as told by your doctor. Use creams with medicine in them or medicines that you put in your butt as told by your doctor. Eating and drinking Eat foods that have a lot of fiber in them. These include whole grains, beans, nuts, fruits, and vegetables. Ask your doctor about taking products that have fiber added to them (fibersupplements). Take in less fat. You can do this by: ?Eating low-fat dairy products. ?Eating less red meat. ?Staying away from processed foods. Drink enough fluid to keep your pee (urine) pale yellow. Managing pain and swelling Take a warm-water bath (sitz bath) for 20 minutes to ease pain. Do this 3 4 times a day. You may dothis in a bathtub. You may also use a portable sitz bath that fits over the toilet. If told, put ice on the painful area. It may help to use ice between your warm baths. ?Put ice in a plastic bag. ?Place a towel between your skin and the bag. ?Leave the ice on for 20 minutes, 2 3 times a day. If your skin turns bright red, take off the ice right away to prevent skin damage. The risk of damage is higher if you cannot feel pain, heat, or cold. General instructions Exercise. Ask your doctor how much and what kind of exercise is best for you. Go to the bathroom when you need to poop. Do not wait. Try not to push too hard when you poop. Keep your butt dry and clean. Use wet toilet paper or moist towelettes after you poop. Do not sit on the toilet for a long time. Contact a doctor if: You have pain and swelling that do not get better with treatment. You have trouble pooping. You cannot poop. You have pain or swelling outside the area of the hemorrhoids. Get help right away if: You have bleeding from the butt that will not stop. This information is not intended to replace advice given to you by your health care provider. Make sure you discuss any questions you have with your health care provider. Document Revised: 01/05/2023 Document Reviewed: 01/05/2023 [employer] Patient Education 2023 [employer]. 09/26/2024 11:32:36 Colonoscopy, Care After Surgery [facility] ([facility]) Colonoscopy Care After Surgery Please read the instructions outlined below and refer to this sheet in the next few weeks. These discharge instructions provide you with general information on caring for yourself after you leave thehospital. Your doctor may also give you specific instructions. While your treatment has been planned according to the most current medical practices available, unavoidable complications occasionally occur. If you have any problems or questions after discharge, please call your doctor. ACTIVITY You may resume your regular activity, but move at a slower pace for the next 24 hours. Take frequent rest periods for the next 24 hours. Walking will help get rid of the air and reduce the bloated feeling in your abdomen (belly). No driving for 24 hours (because of the anesthesia (medicine) used during the test). You may shower. Do not sign any important legal documents or operate any machinery for 24 hours (because of the anesthesia used during the test). NUTRITION Drink plenty of fluids. You may resume your normal diet as instructed by your doctor. Begin with a light meal and progress to your normal diet. Heavy or fried foods are harder to digestand may make you feel nauseated (sick to your stomach). Avoid alcoholic beverages for 24 hours or as instructed. MEDICATIONS You may resume your normal medications unless your doctor tells you otherwise. WHAT YOU CAN EXPECT TODAY Some feelings of bloating in the abdomen. Passage of more gas than usual. Spotting of blood in your stool or on the toilet paper. FOLLOW-UP Your doctor will discuss the results of your test with you. SEEK IMMEDIATE MEDICAL ATTENTION IF: There is more than a spotting of blood in your stool. There is abdominal distention (your abdomen is swollen). There is vomiting. You have a temperature over 101.5 F. There is abdominal pain or discomfort that is severe or gets worse throughout the day. Follow Up Care 09/12/2024 13:44:28 With:Sherif KURTZ, KOFI Agudelo, [facility] Address: [address] [place] [address], [address] [place] [phone] When: Unknown Comments:Call for any problems. Call the office in about one week to schedule a follow up appointment to go over results. [facility] 05-21-2025 NotePatient Education - Text Endoscopy Care After Procedure Please read the instructions outlined below and refer to this sheet in the next few weeks. These discharge instructions provide you with general information on caring for [facility] Your doctor may also give you specific instructions. While your treatment has been planned according to the most current medical practices available, unavoidable complications occasionally occur. If you have any problems or questions after discharge, please call your doctor. ACTIVITY ??? You may resume your regular activity but move at a slower pace for the next 24 hours. ??? Take frequent rest periods for the next 24 hours. ??? Walking will help expel (get rid of) the air and reduce the bloated feeling in your abdomen. ??? No driving for 24 hours (because of the anesthesia (medicine) used during the test). ??? You may shower. ??? Do not sign any important legal documents or operate any machinery for 24 hours (because of theanesthesia used during the test). NUTRITION ??? Drink plenty of fluids. ??? You may resume your normal diet. ??? Begin with a light meal and progress to your normal diet. ??? Avoid alcoholic beverages for 24 hours or as instructed by your caregiver. MEDICATIONS ??? You may resume your normal medications unless your caregiver tells you otherwise. WHAT YOU CAN EXPECT TODAY ??? You may experience abdominal discomfort such as a feeling of fullness or ???gas??? pains. FOLLOW-UP ??? Your doctor will discuss the results of your test with you. seek immediate medical attention if any of the following occur: ??? Excessive nausea (feeling sick to your stomach) and/or vomiting. ??? Severe abdominal pain and distention (swelling). ??? Trouble swallowing. ??? Temperature over 100 F (37.8??? C). ??? Rectal bleeding or vomiting of blood. Document Released: 12/07/2004 Document Re-Released: 10/17/2006 [employer]??? Patient Information ???2009 [employer]. Colonoscopy Care After Surgery Please read the instructions outlined below and refer to this sheet in the next few weeks. These discharge instructions provide you with general information on caring for [facility] Your doctor may also give you specific instructions. While your treatment has been planned according to the most current medical practices available, unavoidable complications occasionally occur. If you have any problems or questions after discharge, please call your doctor. ACTIVITY You may resume your regular activity, but move at a slower pace for the next 24 hours. Take frequent rest periods for the next 24 hours. Walking will help get rid of the air and reduce the bloated feeling in your abdomen (belly). No driving for 24 hours (because of the anesthesia (medicine) used during the test). You may shower. Do not sign any important legal documents or operate any machinery for 24 hours (because of the anesthesia used during the test). NUTRITION Drink plenty of fluids. You may resume your normal diet as instructed by your doctor. Begin with a light meal and progress to your normal diet. Heavy or fried foods are harder to digestand may make you feel nauseated (sick to your stomach). Avoid alcoholic beverages for 24 hours or as instructed. MEDICATIONS You may resume your normal medications unless your doctor tells you otherwise. WHAT YOU CAN EXPECT TODAY Some feelings of bloating in the abdomen. Passage of more gas than usual. Spotting of blood in your stool or on the toilet paper. FOLLOW-UP Your doctor will discuss the results of your test with you. SEEK IMMEDIATE MEDICAL ATTENTION IF: There is more than a spotting of blood in your stool. There is abdominal distention (your abdomen is swollen). There is vomiting. You have a temperature over 101.5 F. There is abdominal pain or discomfort that is severe or gets worse throughout the day. Gastroenterology Esophagitis Esophagitis is inflammation of the esophagus. The esophagus is the tube that carries food from the mouth to the stomach. Esophagitis can cause soreness or pain in the esophagus. This condition can make it difficult and painful to swallow. What are the causes? Most causes of esophagitis are not serious. Common causes of this condition include: ??? Gastroesophageal reflux disease (GERD). This is when stomach contents move back up into the esophagus (reflux). ??? Repeated vomiting. ??? An allergic reaction, especially caused by food allergies (eosinophilic esophagitis). ??? Injury to the esophagus by swallowing large pills with or without water, or swallowing certain types of medicines. ??? Swallowing harmful chemicals, such as household cleaning products. ??? Drinking a lot of alcohol. ??? An infection of the esophagus. This most often occurs in people who have a weakened immune system. ??? Radiation or chemotherapy treatm (more content not included)...[facility]05-21-2025 NoteProgress Note-Physician Patient: ALMA DELIA PEARL Age: 39 years Sex: Female : 1985 Associated Diagnoses: None Author: [place] KURTZ, Elizabet Fleming. Preoperative Information Anesthesia Preop Info: Time patient last ate or drank 09/26/2024 00:00:00. Anesthesia history: Patient history: No prior anesthetic problems. Anesthesia results: Anesthesia results from flowsheet : Results 09/24/2024 10:05 EDT WBC 10.2 E9/L RBC 4.3 E12/L HGB 11.9 gm/dL LOW Hct 35.3 % MCV 82.2 fL MCH 27.7 pg MCHC 33.7 gm/dL RDW 15.0 % HI Platelet 222.0 E9/L MPV 8.3 fL Neutro Auto 68.6 % Lymph Auto 23.5 % [place] Auto 6.2 % Eos Auto 1.2 % Basophil Auto 0.5 % Neutro Absolute 7.0 E9/L Lymph Absolute 2.4 E9/L [place] Absolute 0.6 E9/L Eos Absolute 0.1 E9/L Basophil Absolute 0.0 E9/L Iron 65 mcg/dL Transferrin 323 mg/dL TIBC 452 mcg/dL HI Iron Sat 14 % LOW Vitamin D 25 Hydroxy 20.9 ng/mL LOW . Informed consent: Signed by patient. Re-evaluation prior to induction: Initial evaluation reviewed: No significant change. Review of Systems Respiratory: Negative except as documented in history of present illness. Cardiovascular: Negative except as documented in history of present illness. Health Status Allergies: Allergic Reactions (Selected) Severity Not Documented Codeine- Childhood. Eggs- Vomiting. Imitrex- Chest tightness, breathing and unknown. Latex- Hives and rash. Latuda- Intolerance and agitation. Morphine- Sob and rash. Penicillin- Childhood. Pyridium- Pain. Nonallergic Reactions (Selected) Severity Not Documented Dairy- Unknown., Allergies (10) Active Severity Reaction morphine SOB, rash codeine Childhood Eggs Vomiting Latex Hives, Rash penicillin Childhood Latuda Intolerance, Agitation Pyridium Pain Imitrex unknown Dairy unknown Imitrex Chest tightness, Breathing Current medications: (Selected) Inpatient Medications Ordered Sodium Chloride 0.9% IV Padma 1000 mL 1,000 mL: 1,000 mL, IV, 20 mL/hr, Routine, Start date 09/26/24 6:46:00 EDT, 50 hour(s), Total volume (mL): 1,000, 134.9 kg, 2.56, m2 Prescriptions Prescribed Albuterol (Eqv-ProAir HFA) 90 mcg/inh inhalation aerosol: 2 puff(s), Inhalation, q6hr, 18 gm, Refill(s) 4, [facility] #[id number], 175, cm, 08/14/24 11:49:00 EDT, Height/Length Dosing, 135, kg, 08/14/24 11:49:00 EDT, Weight Dosing Flonase 0.05 mg/inh [place]: 1 spray(s), Nasal, BID, 16 gram, Refill(s) 5, each nostril, [facility] #[id number], 175.2, cm, 06/11/24 14:27:00 EST, Height/Length Dosing, 136.9, kg, 06/11/24 14:27:00 EST, Weight Dosing Nebulizer Machine: Nebulizer Machine, See Instructions, 1 EA, 0, Nebulizer Machine, [facility] #[id number], Supply, 175, cm, 07/02/21 10:47:00 EST, Height/Length Dosing, 133, kg, 07/02/21 10:47:00 EST, Weight Dosing Nebulizer Tubing and Mouthpiece Kit: Nebulizer Tubing and Mouthpiece Kit, See Instructions, 1 kit(s), 0, Nebulizer Tubing and Mouthpiece Kit, Supply Nebulizer and supplies: Nebulizer and supplies, See Instructions, 1 EA, 0, Pt requires nebulizer and tubing/supplies DX: J45.909, Supply Test strips-True Metrix: Test strips-True Metrix, See Instructions, 100 EA, 2, Blood glucose test strips. Use daily to test fasting blood sugars and as needed for symptomatic high or low blood sugars, [facility], Supply, 175, cm, 09/15/20 13:52:00 EDT, Hei... Voltaren Gel 1% Gel: 1 carlo, Topical, QID for pain, 100 gram, Refill(s) 0, [facility] #[id number], 175, cm, 08/14/24 11:49:00 EDT, Height/Length Dosing, 135, kg, 08/14/24 11:49:00 EDT, Weight Dosing Zofran 4 mg Tab: 4 mg = 1 tab(s), Oral, q8hr, PRN Nausea/Vomiting, # 12 tab(s), Refills(s) 0 albuterol 0.083% Inh Padma 3 mL: 0.083% - 3mL dosing units, Inhalation, q4hr Wheezing, 30 EA, Refill(s) 11, [facility] #[id number], 175, cm, 08/14/24 11:49:00 EDT, Height/Length Dosing, 135, kg, 08/14/24 11:49:00 EDT, Weight Dosing cholecalciferol 50,000 intl units oral capsule: 2,500 mcg = 2 cap(s), Oral, qWeek, # 12 cap(s), Refills(s) 2, Pharmacy: [facility] #[id number], 175, cm, 08/14/24 11:49:00 EDT, Height/Length Dosing, 135, kg, 08/14/24 11:49:00 EDT, Weight Dosing ferrous sulfate 325 mg oral enteric coated tablet: 650 mg = 2 tab(s), Oral, Every other day, # 45 tab(s), Refills(s) 3, Pharmacy: [facility] #[id number], 175, cm, 08/14/24 11:49:00 EDT, Height/Length Dosing, 135, kg, 08/14/24 11:49:00 EDT, Weight Dosing lancets: lancets, See Instructions, 100 EA, 3, lancets test daily E11.9, [facility] #[id number], Supply, 175, cm, 04/16/20 15:38:00 EST, Height/Length Dosing, 133.2, kg, 04/16/20 15:38:00 EST, Weight Dosing lidocaine Top 5% film Patch: 1 patch(es), Topical, Daily, 7 patch(es), Refill(s) 1, apply 12 hours on and 12 hours off daily, [facility] #[id number], 175, cm, 08/14/24 11:49:00 EDT, Height/Length Dosing, 135, kg, 08/14/24 11:49:00 EDT, Weight Dosing na: na, See Instructions, 1 bottle( (more content not included)...[facility] RehabilitationComment on above:Result Comment: Electronically Signed By: India KURTZ, Elizabet Fleming.\.br\Date and Time Signed: 09/26/24 10:11 [id number] NotePatient Education ENT How to Perform a Sinus Rinse A sinus rinse is a home treatment that is used to rinse your sinuses with a germ-free (sterile) mixture of salt and water (saline solution). Sinuses are air-filled spaces in your skull that are behind the bones of your face and forehead. They open into your nasal cavity. A sinus rinse can help to clear mucus, dirt, dust, or pollen from your nasal cavity. You may do a sinus rinse when you have a cold, a virus, nasal allergy symptoms, a sinus infection, or stuffiness in your nose or sinuses. What are the risks? A sinus rinse is generally safe and effective. However, there are a few risks, which include: ??? A burning sensation in your sinuses. This may happen if you do not make the saline solution as directed. Be sure to follow all directions when making the saline solution. ??? Nasal irritation. ??? Infection. This may be from unclean supplies or from contaminated water. Infection from contaminated water is rare, but possible. Do not do a sinus rinse if you have had ear or nasal surgery, ear infection, or plugged ears, unless recommended by your health care provider. Supplies needed: ??? Saline solution or powder. ??? Distilled or sterile water to mix with saline powder. ? You may use boiled and cooled tap water. Boil tap water for 5 minutes; cool until it is lukewarm.Use within 24 hours. ? Do not use regular tap water to mix with the saline solution. ??? Neti pot or nasal rinse bottle. These supplies release the saline solution into your nose and through your sinuses. Neti pots and nasal rinse bottles can be purchased at your local pharmacy, a health food store, or online. How to perform a sinus rinse 1. Wash your hands with soap and water for at least 20 seconds. If soap and water are not available, use hand administrative technician. 2. Wash your device according to the directions that came with the product and then dry it. 3. Use the solution that comes with your product or one that is sold separately in stores. Follow the mixing directions on the package to mix with sterile or distilled water. 4. Fill the device with the amount of saline solution noted in the device instructions. 5. Stand by a sink and tilt your head sideways over the sink. 6. Place the spout of the device in your upper nostril (the one closer to the ceiling). 7. Gently pour or squeeze the saline solution into your nasal cavity. The liquid should drain out from the lower nostril if you are not too congested. 8. While rinsing, breathe through your open mouth. 9. Gently blow your nose to clear any mucus and rinse solution. Blowing too hard may cause ear pain. 10. Turn your head in the other direction and repeat in your other nostril. 11. Clean and rinse your device with clean water and then air-dry it. Talk with your health care provider or pharmacist if you have questions about how to do a sinus rinse. Summary ??? A sinus rinse is a home treatment that is used to rinse your sinuses with a sterile mixture of salt and water (saline solution). ??? You may do a sinus rinse when you have a cold, a virus, nasal allergy symptoms, a sinus infection, or stuffiness in your nose or sinuses. ??? A sinus rinse is generally safe and effective. Follow all instructions carefully. This information is not intended to replace advice given to you by your health care provider. Make sure you discuss any questions you have with your health care provider. Document Revised: 10/12/2021 Document Reviewed: 10/12/2021 [employer] Patient Education ? 2023 [employer] Infectious Disease Sinus Infection, Adult A sinus infection, also called sinusitis, is inflammation of your sinuses. Sinuses are hollow spaces in the bones around your face. Your sinuses are located: ??? Around your eyes. ??? In the middle of your forehead. ??? Behind your nose. ??? In your cheekbones. Mucus normally drains out [...] or stops mucus from draining. This includes: ??? Allergies. ??? Asthma. ??? Infection from bacteria or viruses. ??? Deformities or blockages in your nose or sinuses. ??? Abnormal growths in the nose (nasal polyps). ??? Pollutants, such as chemicals or irritants in the air. ??? Infection from fungi. This is rare. What increases the risk? You are more likely to develop this condition if you: ??? Have a weak body defense system (immune system). ??? Do a lot of swimming or diving. (more content not included)...[facility]04-[facility] History of Present illness Narrative* MIAN Vega - 08/27/2024 1:40 PM EDT Images from the original note were not included. Chief Complaint Patient presents with Migraine Subjective Alma Delia Pearl is a 39 y.o. female. MIGRAINE -on Verapamil, Emgality and Ubrelvy -asking for samples until the medication is covered -reports her migraines have been pretty good -weather changes have been trigger -reports 1 every other week -migraines last a couple days at a time without medication -Ubrelvy works well for her -located on right side of head -admits nausea, no vomiting -admits light and sounds sensitivity -denies any visual changes -sleep is off and on -averages 6 hours -does not wake feeling rested Review of Systems Constitutional: Negative for appetite change, fatigue and fever. Eyes: Positive for photophobia. Negative for pain and visual disturbance. Respiratory: Negative for cough, shortness of breath and wheezing. Cardiovascular: Negative for chest pain, palpitations and leg swelling. Gastrointestinal: Positive for nausea. Negative for abdominal pain, constipation, diarrhea and vomiting. Musculoskeletal: Negative for arthralgias, gait problem and myalgias. Neurological: Positive for headaches. Negative for dizziness, tremors, seizures, weakness and numbness. Past Medical History: Diagnosis Date ADHD (attention deficit hyperactivity disorder) ([facility]) 2020 Allergies Amenorrhea Anemia Anxiety Asthma Bipolar disorder Bradycardia Chlamydia Chronic pain Common migraine ([facility]) COPD (chronic obstructive pulmonary disease) ([facility]) Crohn's disease ([facility] Depression ([facility]) Diabetes ([facility]) Easy bruising Factor V Leiden mutation ([facility]) Fatigue Fibromyalgia Fibromyalgia, primary 2010 GERD (gastroesophageal reflux disease) Headache History of degenerative disc disease History of miscarriage 13 total Hyperlipemia ([facility]) Hypersomnia Joint pain Low back pain Lumbar back pain with radiculopathy affecting right lower extremity Lung nodule Migraine Morbid obesity with BMI of 40.0-44.9, adult ([facility]) Muscle spasm Myalgia Nonsmoker PCOS (polycystic ovarian syndrome) Polycystic ovarian disease Polycystic ovaries Positive urine drug screen Sleep apnea 2020 Snoring Spinal stenosis Trichomoniasis Past Surgical History: Procedure Laterality Date BACK SURGERY back decompression surgery lumbar COLONOSCOPY x2 2011, 2018 CYST REMOVAL 12/2023 sternal EGD 05/2016 and colonoscopy EGD 07/2014 and colonoscopy LAPAROSCOPY DIAGNOSTIC / BIOPSY / ASPIRATION / LYSIS x3 TONSILLECTOMY Family History Problem Relation Name Age of Onset Bipolar disorder Mother Rosetta Hepatitis Mother Rosetta Kidney disease Mother Rosetta Heart disease Mother Rosetta Cancer Mother Rosetta Depression Mother Rosetta Fibromyalgia Mother Rosetta Bipolar disorder Sister Ynes Depression Sister Ynes Anxiety disorder Mother's Sister Rosetta Bilateral breast cancer Mother's Sister Rosetta Cervical cancer Maternal Grandmother Lung cancer Maternal Grandmother Kidney disease Maternal Grandmother Social History Tobacco Use Smoking status: Never Smokeless tobacco: Never Substance Use Topics Alcohol use: Not Currently Comment: caffeine: 1-2 cups per day Allergies: Codeine, Egg-derived products, Erythromycin, Fish-derived products, Latex, Lurasidone, Penicillamine, Penicillins, Phenazopyridine, Semaglutide, and Sumatriptan Vitals: 08/27/24 1333 BP: 124/82 Pulse: 84 Resp: 16 SpO2: 97% Body mass index is 43.56 kg/m . Weight: 295 lb Neurologic exam: Mental status: Obese, in no acute distress. Affect is flat. Grossly oriented to person, place and time. Recent and remote memory are intact. Speech is clear and fluent without aphasia. Attention and concentration are normal. Fund of knowledge is appropriate for level of education. Cranial nerves: CN II: Visual acuity is normal. Visual jamil full to confrontation. CN III, IV, : Pupils are equal, round and reactive to light. Extraocular movements intact. No ptosis present. CN V: Facial sensation is normal. CN VII: Full and symmetric facial movement. CN VIII: Hearing is intact. CN IX and X: Palate elevates symmetrically. CN XI: Shoulder shrug is normal bilaterally. CN XII: Tongue is midline without atrophy or fasciculation. Motor: RUE strength deltoid , biceps , triceps , wrist extensors , wrist flexor , and real estate assistant strength 5/5. LUE strength deltoid , biceps , triceps , wrist extensors , wrist flexor , and real estate assistant strength 5/5. RLE strength iliopsoas, quadriceps, tibialis anterior, plantar flexion, and dorsiflexion strength 5/5. LLE strength iliopsoas, quadriceps, tibialis anterior, plantar flexion, and dorsiflexion strength 5/5. Tone and bulk are normal. Sensory: Sensation is intact to light touch throughout distal extremities. Reflexes: RUE biceps reflex 2+ , brachioradialis reflex 2+. LUE biceps reflex 2+ , brachioradialis reflex 2+. RLE Knee reflex 2+. LLE Knee reflex 2+. Negative Cortez's sign. Gait: Normal. Review and summary of old records: Lumbar puncture on 12/04/20: Opening pressure of 25 MRI of the brain with and without contrast from 10/28/20: No acute intracranial process. No suspicious enhancement. A few punctate foci of increased T2 and flair signal are noted in the supratentorialwhite matter which is a nonspecific finding, associated with headaches or minimal chronic microvascular ischemic disease versus within normal limits for age. Assessment/Plan Diagnoses and all orders for this visit: Migraine without aura and without status migrainosus, not intractable (CMS/HCC) The patient reports a history of predominantly right-sided headaches which are seemingly most consistent with migraine. They are accompanied by photophobia and phonophobia and can be triggered by fluorescent lights and certain odors. Would also consider hemicrania continua (indomethacin was highly effective for treatment in the past but not tolerated due to GI side effects). Topiramate, sumatriptan (significant side effects with this), Fioricet, and Ajovy were ineffective or not tolerated previously. The patient's headaches are very well controlled on the current doses of verapamil ER and Emgality. She does occasionally experience an exacerbation and these have been infrequent and responsive to Depakote and Magnesium. She continues to do well on current mediation regimen and has not yet received her refill for emgality and Ubrelvy. PLAN: - Continue verapamil ER 180 mg by mouth once daily. - Continue Emgality 120 mg subcutaneous once every 30 days (could provide benefit for migraine prevention and possible trigeminal autonomic cephalgias). I provided patient with samples today. - Ok for sparing use of zofran for migraine associated nausea. - Migraine cocktail (depakote 500 mg PO BID with Mag Ox 400 mg daily x 5 days) has been effective for refractory breakthrough headaches in the past. This is not indicated currently - Continue Ubrelvy 100 mg by mouth daily as needed for migraine . Ok to repeat the dose x 1after at least 2 hours. Max 200 mg/24 hours. I provided patient with samples today. - Could consider cambia 50 mg or Nurtec in the future (she tried this previously but only once) if needed Recommended adequate hydration, sleep hygiene (regular use of CPAP), regular exercise as tolerated and avoidance of triggers. - Recommended weight loss. Hemicrania continua Right-sided headaches as described above. PLAN: - See above IIH (idiopathic intracranial hypertension) The patient has mild intracranial hypertension with opening pressure of 25 cm CSF on lumbar puncture (12/04/20). She previously took minocycline. Acetazolamide and topiramate were not tolerated in thepast. No significant concerns for intracranial hypertension at this time (the patient denies blurry/worsening vision or increased head pain upon coughing, sneezing, crying, leaning forward, or layingdown). PLAN: - I discussed the importance of serial eye exams with the patient to assess for papilledema and help prevent vision loss. She verbalizes understanding. -Patient follows with [facility]. - Weight reduction encouraged Obesity, unspecified obesity severity, unspecified obesity type PLAN: - Weight reduction encouraged - Now following with endocrinology Other chronic pain Widespread bodily pains not confined to joints or muscles. Strongest consideration is for chronic pain syndrome/fibromyalgia. Lyrica has provided benefit for her symptoms. PLAN: - Continue Lyrica 25 mg by mouth twice a day. Side effects reviewed - Regular physical activity encouraged - There was previous mention of workup for bariatric surgery. Follow up with the ordering provider as recommended. - I would avoid other medication with serotonergic effects given her current prescriptions in this class Follow up in 2 months or sooner if symptoms worsen, fail to improve, or should a new neurological concern arise. Pt has been fully educated on their diagnosis, treatment options, follow up plan, and return instructions documented in this encounterMer[facility] [id number] NotePatient Education Endocrinology Diabetes Mellitus and Nutrition, Adult When you have diabetes, or diabetes mellitus, it is very important to have healthy eating habits because your blood sugar (glucose) levels are greatly affected by what you eat and drink. Eating healthy foods in the right amounts, at about the same times every day, can help you: ??? Manage your blood glucose. ??? Lower your risk of heart disease. ??? Improve your blood pressure. ??? Reach or maintain a healthy weight. What can affect my meal plan? Every person with diabetes is different, and each person has different needs for a meal plan. Your health care provider may recommend that you work with a dietitian to make a meal plan that is best for you. Your meal plan may vary depending on factors such as: ??? The calories you need. ??? The medicines you take. ??? Your weight. ??? Your blood glucose, blood pressure, and cholesterol levels. ??? Your activity level. ??? Other health conditions you have, such as [...] to symptoms of having too much alcohol. ??? Do not drink alcohol if: ? Your health care provider tells you not to drink. ? You are , may be , or are planning to become . ??? If you drink alcohol: ? Limit how [...] for following this plan? Reading food labels ??? Start by checking the serving size on the Nutrition Facts label of packaged foods and drinks. The number of calories and the amount of carbs, fats, and other nutrients listed on the label are based on one serving of the item. Many items contain more than one serving per package. ??? Check the total grams (g) of carbs in one serving. ??? Check the number of grams of saturated fats and trans fats in one serving. Choose foods that have a low amount or none of these fats. ??? Check the number of milligrams (mg) of salt (sodium) in one serving. Most people should limit total sodium intake to less than 2,300 mg per day. ??? Always check the nutrition information of foods labeled as low-fat or nonfat. These foods may be higher in added sugar or refined carbs and should be avoided. ??? Talk to your dietitian to identify your daily goals for nutrients listed on the label. Shopping ??? Avoid buying canned, pre-made, or processed foods. These foods tend to be high in fat, sodium, and added sugar. ??? Shop around the outside edge of the grocery store. This is where you will most often find freshfruits and vegetables, bulk grains, fresh meats, and fresh dairy products. Cooking ??? Use low-heat cooking methods, such as baking, instead of high-heat cooking methods, such as deep frying. ??? Cook using healthy oils, such as olive, canola, or sunflower oil. ??? Avoid cooking with butter, cream, or high-fat meats. Meal planning ??? Eat meals and snacks regularly, preferably at the same times every day. Avoid going long periods of time without eating. ??? Eat foods that are high in fiber, such as fresh fruits, vegetables, beans, and whole grains. ??? Eat 4?6 oz (112?168 g) of lean protein each day, such as lean meat, chicken, fish, eggs, or tofu. One ounce (oz) (28 g) of lean protein is equal to: ? 1 oz (28 g) of meat, chicken, or fish. ? 1 egg. ? ? cup (62 g) of tofu. ??? Eat some foods each day that contain healthy fats, such as avocado, nuts, seeds, and fish. What foods should I eat? Fruits Berries. Apples. Oranges. Peaches. Apricots. Plums. Grapes. Mangoes. Papayas. Pomegranates. Kiwi. Cherries. Vegetables Leafy greens, including lettuce, spinach, kale, chard, jamal greens, mustard greens, and cabbage.Beets. Cauliflower. Broccoli. Carrots. Green beans. Tomatoes. Peppers. Onions. Cucumbers. [place] sprouts. Grains Whole grains, such as whole-wheat or whole- (more content not included)...[facility]04-05-2025 NotePatient Education Endocrinology Blood Glucose Monitoring, Adult To manage your diabetes, you will need to keep track of your blood sugar (glucose). Check your blood glucose as often as told. Keep a record of your results over time. This can help you: ??? Know when to adjust your diabetes management plan with your health care provider. ??? See how food, exercise, illness, and medicines affect your blood glucose. ??? Know what your blood glucose is at any time. Your provider will set specific goals for your blood glucose levels. In many cases, these goals maybe: ??? Before meals (preprandial): 80?130 mg/dL (4.4?7.2 mmol/L). ??? After meals (postprandial): below 180 mg/dL (10 mmol/L). ??? A1C level: less than 7%. Supplies needed: ??? Blood glucose meter. ??? Test strips for your meter. Each meter has its own strips. You must use the strips that came with your meter. ??? A needle to prick your finger (lancet). Do not use a lancet more than once. ??? A device that holds the lancet (lancing device). ??? A journal or logbook to write down your results. How to check your blood glucose Checking your blood glucose 1. Wash your hands with soap and water for at least 20 seconds. 2. Prick the side of your finger with the lancet. Do not prick the tip of your finger. Do not use the same finger more than once. 3. Gently rub the finger until a small drop of blood appears. 4. Follow the instructions that came with the meter about how to insert the test strip, apply bloodto the strip, and use the meter. 5. Write down your result and any notes. Using alternative sites Some meters let you use other areas of your body (alternative sites) to test your blood. The most common places are the forearm, the thigh, and the palm of your hand. Alternative sites may not be as accurate as your fingers. The result you get may also be delayed. Use the finger only, and do not use alternative sites, if: ??? You think you have low blood glucose (hypoglycemia). ??? You sometimes do not know that your blood glucose is getting low (hypoglycemia unawareness). General tips and recommendations Blood glucose log ??? Write down the result each time you check your blood glucose. Note anything that may be affecting your blood glucose. This can help you and your provider: ? Look for patterns over time. ? Adjust your management plan as needed. ??? Check if your meter has an carlo or lets you download your records to a computer. Most meters keep a record of glucose readings in the meter. If you have type 1 diabetes: ??? You may need to check your blood glucose 4 or more times a day. Check your blood glucose as often as told by your provider. This may include: ? Before each meal and snack. ? Two hours after a meal. ? Before bedtime. ? If you have symptoms of hypoglycemia. ? After treating your hypoglycemia. ? Before doing things that have a risk of injury, such as driving or using machinery. ? Before and after exercise. ? Between 2:00 a.m. and 3:00 a.m., as told. ??? You may need to check your blood glucose more often, such as up to 6?10 times a day, if: ? You have diabetes that is not well controlled. ? You are ill. ? You have a history of severe hypoglycemia. ? You have hypoglycemia unawareness. If you have type 2 diabetes: ??? You may need to check your blood glucose 2 or more times a day. Check your blood glucose as often as told by your provider. This may include: ? Before and after exercise. ? Before doing things that have a risk of injury, such as driving or using machinery. ??? You may need to check your blood glucose more often if: ? Your medicine is being adjusted. ? Your diabetes is not well controlled. ? You are ill. General tips ??? Make sure you always have your supplies with you. ??? After you use a few boxes of test strips, adjust (calibrate) your blood glucose meter. Follow the instructions that came with your meter. ??? If you have questions or need help, all blood glucose meters have a 24-hour hotline phone number that you can call. Also contact your provider with any questions or concerns. Where to find more information ??? [employer] [place] [employer]: diabetes.org ??? The Association [employer] Education Specialists: diabeteseducator.org Contact a health care provider if: ??? Your blood glucose is at or above 240 mg/dL (13.3 mmol/L) for 2 days in a row. ??? You have been sick or have had a fever for 2 days or longer and are not getting better. ??? You have any of these problems for more than 6 hours: ? You cannot eat or drink. ? You have nausea or vomiting. ? You have diarrhea. Get help right away if: ??? Your blood glucose is lower than 54 mg/dL (3 mmol/L). ??? You become confused, or you have trouble thinking clearly. ??? You have trouble breathing. ??? You have moderate to high ketone levels in y (more content not included)... [facility]03-26-2025 Hospital Discharge instructions Patient Education 08/01/2024 18:51:39 Lumbosacral Radiculopathy Lumbosacral Radiculopathy Lumbosacral radiculopathy is a condition that involves the spinal nerves and nerve roots in the lowback and bottom of the spine. The condition develops when these nerves and nerve roots move out of place or become inflamed and cause symptoms. What are the causes? This condition may be caused by: Pressure from a disk that bulges out of place (herniated disk). A disk is a plate of soft cartilagethat separates bones in the spine. Disk changes that occur with age (disk degeneration). A narrowing of the bones of the lower back (spinal stenosis). A tumor. An infection. An injury that places sudden pressure on the disks that cushion the bones of your lower spine. What increases the risk? You are more likely to develop this condition if: You are a male who is 30 50 years old. You are a female who is 50 60 years old. You use improper technique when lifting things. You are overweight or live a sedentary lifestyle. You smoke. Your work requires frequent lifting. You do repetitive activities that strain the spine. What are the signs or symptoms? Symptoms of this condition include: Pain that goes down from your back into your legs (sciatica), usually on one side of the body. Thisis the most common symptom. The pain may be worse when you sit, cough, or sneeze. Tingling and numbness in your legs. Muscle weakness in your legs. Loss of bladder control or bowel control. How is this diagnosed? This condition may be diagnosed based on: Your symptoms and medical history. A physical exam. If the pain lasts, you may have tests, such as: MRI. X-ray. CT scan. A type of CT scan used to examine the spinal canal after injecting a dye into your spine (myelogram). A test to measure how electrical impulses move through a nerve (nerve conduction study). A test to measure the electrical activity in muscles (electromyogram). How is this treated? In many cases, treatment is not needed for this condition. With rest, the condition usually gets better over time. If treatment is needed, it may include: Working with a physical therapist to improve strength and flexibility. Taking pain medicine. Applying heat or ice or both to the affected areas. Having chiropractic spinal manipulation. Using transcutaneous electrical nerve stimulation (TENS) therapy. Getting a steroid injection in the spine. Having surgery. This may be needed if other treatments do not help. Different types of surgery may be done depending on the cause of this condition. Follow these instructions at home: Activity Avoid bending and any other activities that make the problem worse. Maintain a proper position when standing or sitting. ?When standing, keep your upper back and neck straight with your shoulders pulled back. Avoid slouching. ?When sitting, keep your back straight and relax your shoulders. Do not round your shoulders or pull them backward. Do not sit or inspector publications one place for long periods of time. Take brief periods of rest throughout the day. This will reduce your pain. It is usually better to rest by lying down or standing, not sitting. Mix in mild activity or stretching between long periods of rest. This will help to prevent stiffness and pain. Get regular exercise. Ask your health care provider what activities are safe for you. If you were shown how to do any exercises or stretches, do them as told by your health care provider. You may have to avoid lifting. Ask your health care provider how much you can safely lift. Always use proper lifting technique, which includes: ?Bending your knees. ?Keeping the load close to your body. ?Avoiding twisting. Managing pain If directed, put ice on the affected area. To do this: ?Put ice in a plastic bag. ?Place a towel between your skin and the bag. ?Leave the ice on for 20 minutes, 2 3 times a day. ?Remove the ice if your skin turns bright red. This is very important. If you cannot feel pain, heat, or cold, you have a greater risk of damage to the area. If directed, apply heat to the affected area as often as told by your health care provider. Use theheat source that your health care provider recommends, such as a moist heat pack or a heating pad. ?Place a towel between your skin and the heat source. ?Leave the heat on for 20 30 minutes. ?Remove the heat if your skin turns bright red. This is especially important if you are unable to feel pain, heat, or cold. You have a greater risk of getting burned. Take ekny-vba-ewkaxrh and prescription medicines only as told by your health care provider. General instructions Sleep on a firm mattress in a comfortable position. Try lying on your side with your knees slightlybent. If you lie on your back, put a pillow under your knees. Ask your health care provider if the medicine prescribed to you requires you to avoid driving or using machinery. If your health care provider prescribed a diet or exercise program, follow it as told. Keep all follow-up visits. This is important. Contact a health care provider if: Your pain does not get better over time, even when taking pain medicines. Get help right away if: You develop severe pain. Your pain suddenly gets worse. You develop increasing weakness in your legs. You lose the ability to control your bladder or bowel. You have difficulty walking or balancing. You have a fever. Summary Lumbosacral radiculopathy is a condition that occurs when the spinal nerves and nerve roots in the lower part of the spine move out of place or become inflamed and cause symptoms. Symptoms include pain, numbness, and tingling that go down from your back into your legs (sciatica), muscle weakness, and loss of bladder control or bowel control. If directed, apply ice or heat or both to the affected area as told by your health care provider. Follow instructions about activity, rest, and proper lifting technique. This information is not intended to replace advice given to you by your health care provider. Make sure you discuss any questions you have with your health care provider. Document Revised: 10/29/2021 Document Reviewed: 10/29/2021 [employer] Patient Education 2023 [employer] 08/01/2024 18:51:39 Acute Back Pain, Adult Acute Back Pain, Adult Acute back pain is sudden and usually short-lived. It is often caused by an injury to the muscles and tissues in the back. The injury may result from: A muscle, tendon, or ligament getting overstretched or torn. Ligaments are tissues that connect bones to each other. Lifting something improperly can cause a back strain. Wear and tear (degeneration) of the spinal disks. Spinal disks are circular tissue that provide cushioning between the bones of the spine (vertebrae). Twisting motions, such as while playing sports or doing yard work. A hit to the back. Arthritis. You may have a physical exam, lab tests, and imaging tests to find the cause of your pain. Acute back pain usually goes away with rest and home care. Follow these instructions at home: Managing pain, stiffness, and swelling Take mzcy-iao-ehlcuso and prescription medicines only as told by your health care provider. Treatment may include medicines for pain and inflammation that are taken by mouth or applied to the skin, or muscle relaxants. Your health care provider may recommend applying ice during the first 24 48 hours after your pain starts. To do this: ?Put ice in a plastic bag. ?Place a towel between your skin and the bag. ?Leave the ice on for 20 minutes, 2 3 times a day. ?Remove the ice if your skin turns bright red. This is very important. If you cannot feel pain, heat, or cold, you have a greater risk of damage to the area. If directed, apply heat to the affected area as often as told by your health care provider. Use theheat source that your health care provider recommends, such as a moist heat pack or a heating pad. ?Place a towel between your skin and the heat source. ?Leave the heat on for 20 30 minutes. ?Remove the heat if your skin turns bright red. This is especially important if you are unable to feel pain, heat, or cold. You have a greater risk of getting burned. Activity Do not stay in bed. Staying in bed for more than 1 2 days can delay your recovery. Sit up and stand up straight. Avoid leaning forward when you sit or hunching over when you stand. ?If you work at a desk, sit close to it so you do not need to lean over. Keep your chin tucked in. Keep your neck drawn back, and keep your elbows bent at a 90-degree angle (right angle). ?Sit high and close to the steering wheel when you drive. Add lower back (lumbar) support to your car seat, if needed. Take short walks on even surfaces as soon as you are able. Try to increase the length of time you walk each day. Do not sit, drive, or inspector publications one place for more than 30 minutes at a time. Sitting or standing for long periods of time can put stress on your back. Do not drive or use heavy machinery while taking prescription pain medicine. Use proper lifting techniques. When you bend and lift, use positions that put less stress on your back: ?Bend your knees. ?Keep the load close to your body. ?Avoid twisting. Exercise regularly as told by your health care provider. Exercising helps your back heal faster andhelps prevent back injuries by keeping muscles strong and flexible. Work with a physical therapist to make a safe exercise program, as recommended by your health care provider. Do any exercises as told by your physical therapist. Lifestyle Maintain a healthy weight. Extra weight puts stress on your back and makes it difficult to have good posture. Avoid activities or situations that make you feel anxious or stressed. Stress and anxiety increase muscle tension and can make back pain worse. Learn ways to manage anxiety and stress, such as through exercise. General instructions Sleep on a firm mattress in a comfortable position. Try lying on your side with your knees slightlybent. If you lie on your back, put a pillow under your knees. Keep your head and neck in a straight line with your spine (neutral position) when using electronicequipment like smartphones or pads. To do this: ?Raise your smartphone or pad to look at it instead of bending your head or neck to look down. ?Put the smartphone or pad at the level of your face while looking at the screen. Follow your treatment plan as told by your health care provider. This may include: ?Cognitive or behavioral therapy. ?Acupuncture or massage therapy. ?Meditation or yoga. Contact a health care provider if: You have pain that is not relieved with rest or medicine. You have increasing pain going down into your legs or buttocks. Your pain does not improve after 2 weeks. You have pain at night. You lose weight without trying. You have a fever or chills. You develop nausea or vomiting. You develop abdominal pain. Get help right away if: You develop new bowel or bladder control problems. You have unusual weakness or numbness in your arms or legs. You feel faint. These symptoms may represent a serious problem that is an emergency. Do not wait to see if the symptoms will go away. Get medical help right away. Call your local emergency services (911 in the [place] Do not drive yourself to the hospital. Summary Acute back pain is sudden and usually short-lived. Use proper lifting techniques. When you bend and lift, use positions that put less stress on your back. Take ddim-bpt-yffcnmw and prescription medicines only as told by your health care provider, and apply heat or ice as told. This information is not intended to replace advice given to you by your health care provider. Make sure you discuss any questions you have with your health care provider. Document Revised: 07/17/2021 Document Reviewed: 07/17/2021 [employer] Patient Education 2023 [employer]. Follow Up Care 08/01/2024 17:21:02 With:Rod Pastor Address: [address], [address] [place] [address] [phone] Business (1) When:08/04/2024 17:51:51 With:Irasema Zacarias Address: [address], [facility] [place] [address]- Business (1) When:Within 3 Day(s) [facility] [id number] NoteED Patient Education Note Orthopedics Lumbosacral Radiculopathy Lumbosacral radiculopathy is a condition that involves the spinal nerves and nerve roots in the lowback and bottom of the spine. The condition develops when these nerves and nerve roots move out of place or become inflamed and cause symptoms. What are the causes? This condition may be caused by: ??? Pressure from a disk that bulges out of place (herniated disk). A disk is a plate of soft cartilage that separates bones in the spine. ??? Disk changes that occur with age (disk degeneration). ??? A narrowing of the bones of the lower back (spinal stenosis). ??? A tumor. ??? An infection. ??? An injury that places sudden pressure on the disks that cushion the bones of your lower spine. What increases the risk? You are more likely to develop this condition if: ??? You are a male who is 30?50 years old. ??? You are a female who is 50?60 years old. ??? You use improper technique when lifting things. ??? You are overweight or live a sedentary lifestyle. ??? You smoke. ??? Your work requires frequent lifting. ??? You do repetitive activities that strain the spine. What are the signs or symptoms? Symptoms of this condition include: ??? Pain that goes down from your back into your legs (sciatica), usually on one side of the body. This is the most common symptom. The pain may be worse when you sit, cough, or sneeze. ??? Tingling and numbness in your legs. ??? Muscle weakness in your legs. ??? Loss of bladder control or bowel control. How is this diagnosed? This condition may be diagnosed based on: ??? Your symptoms and medical history. ??? A physical exam. If the pain lasts, you may have tests, such as: ??? MRI. ??? X-ray. ??? CT scan. ??? A type of CT scan used to examine the spinal canal after injecting a dye into your spine (myelogram). ??? A test to measure how electrical impulses move through a nerve (nerve conduction study). ??? A test to measure the electrical activity in muscles (electromyogram). How is this treated? In many cases, treatment is not needed for this condition. With rest, the condition usually gets better over time. If treatment is needed, it may include: ??? Working with a physical therapist to improve strength and flexibility. ??? Taking pain medicine. ??? Applying heat or ice or both to the affected areas. ??? Having chiropractic spinal manipulation. ??? Using transcutaneous electrical nerve stimulation (TENS) therapy. ??? Getting a steroid injection in the spine. ??? Having surgery. This may be needed if other treatments do not help. Different types of surgery may be done depending on the cause of this condition. Follow these instructions at home: Activity ??? Avoid bending and any other activities that make the problem worse. ??? Maintain a proper position when standing or sitting. ? When standing, keep your upper back and neck straight with your shoulders pulled back. Avoid slouching. ? When sitting, keep your back straight and relax your shoulders. Do not round your shoulders or pull them backward. ??? Do not sit or inspector publications one place for long periods of time. ??? Take brief periods of rest throughout the day. This will reduce your pain. It is usually betterto rest by lying down or standing, not sitting. ??? Mix in mild activity or stretching between long periods of rest. This will help to prevent stiffness and pain. ??? Get regular exercise. Ask your health care provider what activities are safe for you. If you were shown how to do any exercises or stretches, do them as told by your health care provider. ??? You may have to avoid lifting. Ask your health care provider how much you can safely lift. ??? Always use proper lifting technique, which includes: ? Bending your knees. ? Keeping the load close to your body. ? Avoiding twisting. Managing pain ??? If directed, put ice on the affected area. To do this: ? Put ice in a plastic bag. ? Place a towel between your skin and the bag. ? Leave the ice on for 20 minutes, 2?3 times a day. ? Remove the ice if your skin turns bright red. This is very important. If you cannot feel pain, heat, or cold, you have a greater risk of damage to the area. ??? If directed, apply heat to the affected area as often as told by your health care provider. Usethe heat source that your health care provider recommends, such as a moist heat pack or a heating pad. ? Place a towel between your skin and the heat source. ? Leave the heat on for 20?30 minutes. ? Remove the heat if your skin turns bright red. This is especially important if you are unable to feel pain, heat, or cold. You have a greater risk of getting burned. ??? Take qnye-edr-caerlre and prescription medicines only as told by your health care provider. General instructions ??? Sleep on a firm mattress in a comfortable position. Try lying on your side with your (more content not included)...[facility]03-10-2025 Telephone encounter Note* Telephone Encounter - Keyla Gusman NP - 07/16/2024 4:26 PM EDT OARRs reviewed. [id number] Miscellaneous Notes* Telephone Encounter - Keyla Gusman NP - 07/16/2024 4:26 PM EDT OARRs reviewed. Rx sent. documented in [facility] encounterMer[facility] [id number] Hospital Discharge instructions Patient Education 06/29/2024 18:58:43 Diarrhea, Adult Diarrhea, Adult Diarrhea is frequent loose and sometimes watery bowel movements. Diarrhea can make you feel weak and cause you to become dehydrated. Dehydration is a condition in which there is not enough water or other fluids in the body. Dehydration can make you tired and thirsty, [...] oral rehydration solution (ORS). This is an rtnc-nwq-skozggx medicine that helps return your body to its normal balance of nutrients and water. It is found at pharmacies and retail stores. Drink enough fluid to keep your urine pale yellow. ?Drink fluids such as water, diluted fruit juice, and low-calorie sports drinks. You can drink milkalso, if desired. Sucking on ice chips is another way to get fluids. ?Avoid drinking fluids that contain a lot of sugar or caffeine, such as soda, energy drinks, and regular sports drinks. ?Avoid alcohol. Eat bland, mzoj-pq-ufiukw foods in small amounts as you are able. These foods include bananas, applesauce, rice, lean meats, toast, and crackers. Avoid spicy or fatty foods. Medicines Take oips-btt-qegazbs and prescription medicines only as told by your health care provider. If you were prescribed antibiotics, take them as told by your health care provider. Do not stop using the antibiotic even if you start to feel better. General instructions Wash your hands often using soap and water for at least 20 seconds. If soap and water are not available, use hand administrative technician. Others in the household should wash their hands as well. Hands should be washed: ?After using the toilet or changing a diaper. ?Before preparing, cooking, or serving food. ?While caring for a sick person or while visiting someone in a hospital. Rest at home while you recover. Take a warm bath to relieve any burning or pain from frequent diarrhea episodes. Watch your condition for any changes. Contact a health care provider if: You have a fever. Your diarrhea gets worse. You have new symptoms. You vomit every time you eat or drink. You feel light-headed, dizzy, or have a headache. You have muscle cramps. You have signs of dehydration, such as: ?Dark urine, very little urine, or no urine. ?Cracked lips. ?Dry mouth. ?Sunken eyes. ?Sleepiness. ?Weakness. You have bloody or black stools or stools that look like tar. You have severe pain, cramping, or bloating in your abdomen. Your skin feels cold and clammy. You feel confused. Get help right away if: You have chest pain or your heart is beating very quickly. You have trouble breathing or you are breathing very quickly. You feel extremely weak or you faint. These symptoms may be an emergency. Get help right away. Call 911. Do not wait to see if the symptoms will go away. Do not drive yourself to the hospital. This information is not intended to replace advice given to you by your health care provider. Make sure you discuss any questions you have with your health care provider. Document Revised: 10/12/2022 Document Reviewed: 10/12/2022 [employer] Patient Education 2023 [employer]. 06/29/2024 18:58:43 Abdominal Pain, Adult Abdominal Pain, Adult Pain in the abdomen (abdominal pain) can be caused by many things. In most cases, it gets better with no treatment or by being treated at home. But in some cases, it can be serious. Your health care provider will ask questions about your medical history and do a physical exam to try to figure out what is causing your pain. Follow these instructions at home: Medicines Take zuon-vfi-qryzrum and prescription medicines only as told by your provider. Do not take medicines that help you poop (laxatives) unless told by your provider. General instructions Watch your condition for any changes. Drink enough fluid to keep your pee (urine) pale yellow. Contact a health care provider if: Your pain changes, gets worse, or lasts longer than expected. You have severe cramping or bloating in your abdomen, or you vomit. Your pain gets worse with meals, after eating, or with certain foods. You are constipated or have diarrhea for more than 2 3 days. You are not hungry, or you lose weight without trying. You have signs of dehydration. These may include: ?Dark pee, very little pee, or no pee. ?Cracked lips or dry mouth. ?Sleepiness or weakness. You have pain when you pee (urinate) or poop. Your abdominal pain wakes you up at night. You have blood in your pee. You have a fever. Get help right away if: You cannot stop vomiting. Your pain is only in one part of the abdomen. Pain on the right side could be caused by appendicitis. You have bloody or black poop (stool), or poop that looks like tar. You have trouble breathing. You have chest pain. These symptoms may be an emergency. Get help right away. Call 911. Do not wait to see if the symptoms will go away. Do not drive yourself to the hospital. This information is not intended to replace advice given to you by your health care provider. Make sure you discuss any questions you have with your health care provider. Document Revised: 02/09/2023 Document Reviewed: 02/09/2023 [employer] Patient Education 2023 [employer]. Follow Up Care 06/29/2024 14:55:21 With:Irasema Rell Address: [address] [place] [address] Business (1) When:07/02/2024 18:41:23 [facility] [id number] NoteED Patient Education Note Gastroenterology Abdominal Pain, Adult Pain in the abdomen (abdominal pain) can be caused by many things. In most cases, it gets better with no treatment or by being treated at home. But in some cases, it can be serious. Your health care provider will ask questions about your medical history and do a physical exam to try to figure out what is causing your pain. Follow these instructions at home: Medicines ??? Take nhlb-bgx-miyjdid and prescription medicines only as told by your provider. ??? Do not take medicines that help you poop (laxatives) unless told by your provider. General instructions ??? Watch your condition for any changes. ??? Drink enough fluid to keep your pee (urine) pale yellow. Contact a health care provider if: ??? Your pain changes, gets worse, or lasts longer than expected. ??? You have severe cramping or bloating in your abdomen, or you vomit. ??? Your pain gets worse with meals, after eating, or with certain foods. ??? You are constipated or have diarrhea for more than 2?3 days. ??? You are not hungry, or you lose weight without trying. ??? You have signs of dehydration. These may include: ? Dark pee, very little pee, or no pee. ? Cracked lips or dry mouth. ? Sleepiness or weakness. ??? You have pain when you pee (urinate) or poop. ??? Your abdominal pain wakes you up at night. ??? You have blood in your pee. ??? You have a fever. Get help right away if: ??? You cannot stop vomiting. ??? Your pain is only in one part of the abdomen. Pain on the right side could be caused by appendicitis. ??? You have bloody or black poop (stool), or poop that looks like tar. ??? You have trouble breathing. ??? You have chest pain. These symptoms may be an emergency. Get help right away. Call 911. ??? Do not wait to see if the symptoms will go away. ??? Do not drive yourself to the hospital. This information is not intended to replace advice given to you by your health care provider. Make sure you discuss any questions you have with your health care provider. Document Revised: 02/09/2023 Document Reviewed: 02/09/2023 Elsevier Patient Education ? 2023 [employer] Infectious Disease Diarrhea, Adult Diarrhea is frequent loose and sometimes watery bowel movements. Diarrhea can make you feel weak and cause you to become dehydrated. Dehydration is a condition in which there is not enough water or other fluids in the body. Dehydration can make you tired and thirsty, cause you to have a dry mouth, and decrease how often you urinate. Diarrhea typically lasts 2?3 days. However, it can last longer if it is a sign of something more serious. It is important to treat your diarrhea as told by your health care provider. Follow these instructions at home: Eating and drinking Follow these recommendations as told by your health care provider: ??? Take an oral rehydration solution (ORS). This is an jpsj-obn-vzuejgp medicine that helps returnyour body to its normal balance of nutrients and water. It is found at pharmacies and retail stores. ??? Drink enough fluid to keep your urine pale yellow. ? Drink fluids such as water, diluted fruit juice, and low-calorie sports drinks. You can drink milk also, if desired. Sucking on ice chips is another way to get fluids. ? Avoid drinking fluids that contain a lot of sugar or caffeine, such as soda, energy drinks, and regular sports drinks. ? Avoid alcohol. ??? Eat bland, hwzv-ld-gfigsi foods in small amounts as you are able. These foods include bananas, applesauce, rice, lean meats, toast, and crackers. ??? Avoid spicy or fatty foods. Medicines ??? Take olsv-iir-mdnpfky and prescription medicines only as told by your health care provider. ??? If you were prescribed antibiotics, take them as told by your health care provider. Do not stopusing the antibiotic even if you start to feel better. General instructions ??? Wash your hands often using soap and water for at least 20 seconds. If soap and water are not available, use hand administrative technician. Others in the household should wash their hands as well. Hands should be washed: ? After using the toilet or changing a diaper. ? Before preparing, cooking, or serving food. ? While caring for a sick person or while visiting someone in a hospital. ??? Rest at home while you recover. ??? Take a warm bath to relieve any burning or pain from frequent diarrhea episodes. ??? Watch your condition for any changes. Contact a health care provider if: ??? You have a fever. ??? Your diarrhea gets worse. ??? You have new symptoms. ??? You vomit every time you eat or drink. ??? You feel light-headed, dizzy, or have a headache. ??? You have muscle cramps. ??? You have signs of dehydration, such as: ? Dark urine, very little urine, or no urine. ? C (more content not included)...[facility]02-21-2025 Telephone encounter Note* Telephone Encounter - Veronica Garcia - 06/29/2024 3:45 PM EST Images from the original note were not included. Initiated PA for Mounjaro 5mg through [facility] [facility] Is the patient New Insurance per patient Waiting on Questions Questions Completed Waiting for determination Additional Information Required to Complete [facility]02-21-2025 Miscellaneous Notes* Telephone Encounter - Veronica Garcia - 06/29/2024 3:45 PM EST Images from the original note were not included. Initiated PA for Mounjaro 5mg through [facility] [place] Is the patient New Insurance per patient Waiting on Questions Questions Completed Waiting for determination Additional Information Required to Complete [facility] Telephone encounter Note * Telephone Encounter - Phuc Campos - 06/20/2024 11:55 AM EST Images from the original note were not included. Dear Provider, Your patient's medication tirzepatide (MOUNJARO) 2.5 mg/0.5 mL pen injector was denied. Denial letters are sent directly to the patient and at times to the healthcare providers. If we receive a denial letter, it will be indexed for your review. If you want to appeal the decision. Please submit yourrequest via staff message to the [employer] Prior Auth Appeals Pool ([id number]). You can find templates listed below to support your appeal in [employer] (Epic drop down, select patient care, select send letter). If it is an urgent request, you can email the PA [facility] Team at [facility] . Please make sure the documents below are completed in order to process your request. If the appeal is denied, do you want to schedule a peer to peer Yes/No. We will schedule peer to peer automatically if yes. Thank You, [facility] Auth Appeals Team Endo PA Appeal letter Endo PA Letter of Medical Necessity [facility] [employer] Remover II Endocrinology & Metabolism [facility] X-20 [facility]02-12-2025 Miscellaneous Notes* Telephone Encounter - Phuc Campos - 06/20/2024 11:55 AM EST Images from the original note were not included. Dear Provider, Your patient's medication tirzepatide (MOUNJARO) 2.5 mg/0.5 mL pen injector was denied. Denial letters are sent directly to the patient and at times to the healthcare providers. If we receive a denial letter, it will be indexed for your review. If you want to appeal the decision. Please submit yourrequest via staff message to the [facility] Auth Appeals Pool ([id number]). You can find templates listed below to support your appeal in [facility] (Epic drop down, select patient care, select send letter). If it is an urgent request, you can email the [facility] auth Team at [email or web address]. Please make sure the documents below are completed in order to process your request. If the appeal is denied, do you want to schedule a peer to peer Yes/No. We will schedule peer to peer automatically if yes. Thank You, [facility] Auth Appeals Team Endo PA Appeal letter Endo PA Letter of Medical Necessity [facility] [employer] Material Remover II Endocrinology & Metabolism [facility] X-20 documented in this encounter[facility] Telephone encounter Note * Telephone Encounter - KarlaVeronica - 06/19/2024 3:34 PM EST Initiated PA for Mounjaro 5mg through [employer] Waiting on Questions Additional Information Required to Complete [place] Prior Desk Manager [facility] Endocrinology & Metabolism [place] [facility]02-11-2025 Miscellaneous Notes* Telephone Encounter - Veronica Garcia - 06/19/2024 3:34 PM EST Initiated PA for Mounjaro 5mg through [employer] Waiting on Questions Additional Information Required to Complete [place] Prior Desk Manager [facility] Endocrinology & Metabolism [place] documented in this encounterKind[facility]-2025 Telephone encounter Note * Telephone Encounter - Phuc Campos - 06/19/2024 3:22 PM EST Images from the original note were not included. Initiated PA for tirzepatide (MOUNJARO) 2.5 mg/0.5 mL pen injector through [facility] [place] [employer] Chart notes attached Questions Completed Waiting for determination [employer]ing Material Remover II Endocrinology & Metabolism [facility] X-20 [facility]02-11-2025 Miscellaneous Notes* Telephone Encounter - Phuc Campos - 06/19/2024 3:22 PM EST Images from the original note were not included. Initiated PA for tirzepatide (MOUNJARO) 2.5 mg/0.5 mL pen injector through [employer] [place] [employer] Chart notes attached Questions Completed Waiting for determination [employer]ing Material Remover II Endocrinology & Metabolism [facility] X-20 documented in this encounterKind[facility]-2025 Telephone encounter Note * Telephone Encounter - Keyla Gusman NP - 06/19/2024 10:19 AM EST OARRs reviewed. [id number] Miscellaneous Notes* Telephone Encounter - Keyla Gusman NP - 06/19/2024 10:19 AM EST OARRs reviewed. Rx sent * Telephone Encounter - Quincy Sherman MA - 06/19/2024 10:08 AM EST 06/18/2024 - Continue Lyrica 25 mg by mouth twice a day. Oarrs reviewed due now documented in [facility] encounterMer[facility] [id number] Telephone encounter Note* Telephone Encounter - Quincy Sherman MA - 06/19/2024 10:08 AM EST 06/18/2024 - Continue Lyrica 25 mg by mouth twice a day. Oarrs reviewed due now [id number] History of Present illness Narrative* Keyla Gusman NP - 06/18/2024 3:00 PM EST Images from the original note were not included. Chief Complaint Patient presents with Migraine IIH Subjective Alma Delia Pearl is a 39 y.o. female. The patient presents today for follow up to IIH and migraine. She is taking Verapamil ER 180 mg andhas continued Emgality which which have been very helpful as preventatives. She does admit an exacerbation recently which she relates to a new sugar free drink. States she did not have any today and she has not had migraine. She states that she is otherwise getting 1-2 breakthroughs per month. She takes Ubrelvy for these which is effective, admits needing 2nd dose once recently. Migraines are typically right sided with with accompanying light/sound sensitivity and nausea. Admits sleep helps. She continues on Strattera by psychiatry. She admits to an optho appointment in March and was told they had no concerns. She denies any new concerns today. Review of Systems Constitutional: Negative for appetite change, fatigue and fever. Eyes: Negative for pain and visual disturbance. Respiratory: Negative for cough, shortness of breath and wheezing. Cardiovascular: Negative for chest pain, palpitations and leg swelling. Gastrointestinal: Negative for abdominal pain, constipation, diarrhea, nausea and vomiting. Musculoskeletal: Negative for arthralgias, gait problem and myalgias. Neurological: Positive for headaches. Negative for dizziness, tremors, seizures, weakness and numbness. Past Medical History: Diagnosis Date ADHD (attention deficit hyperactivity disorder) ([facility]) 2020 Allergies Amenorrhea Anemia Anxiety Asthma ([facility]) [facility]ipolar disorder ([facility]) Bradycardia Chlamydia Chronic pain Common migraine ([facility]) COPD (chronic obstructive pulmonary disease) ([facility]) Crohn's disease ([facility] Depression ([facility]) Diabetes ([facility]) Easy bruising Factor V Leiden mutation ([facility]) Fatigue Fibromyalgia Fibromyalgia, primary 2010 GERD (gastroesophageal reflux disease) Headache History of degenerative disc disease History of miscarriage 13 total Hyperlipemia ([facility]) Hypersomnia Joint pain Low back pain Lumbar back pain with radiculopathy affecting right lower extremity Lung nodule Migraine ([facility]) Morbid obesity with BMI of 40.0-44.9, adult ([facility]) Muscle spasm Myalgia Nonsmoker PCOS (polycystic ovarian syndrome) Polycystic ovarian disease Polycystic ovaries Positive urine drug screen Sleep apnea 2020 Snoring Spinal stenosis Trichomoniasis Past Surgical History: Procedure Laterality Date BACK SURGERY back decompression surgery lumbar COLONOSCOPY x2 2011, 2018 CYST REMOVAL 12/2023 sternal EGD 05/2016 and colonoscopy EGD 07/2014 and colonoscopy LAPAROSCOPY DIAGNOSTIC / BIOPSY / ASPIRATION / LYSIS x3 TONSILLECTOMY Family History Problem Relation Name Age of Onset Bipolar disorder Mother Rosetta Hepatitis Mother Rosetta Kidney disease Mother Rosetta Heart disease Mother Rosetta Cancer Mother Rosetta Depression Mother Rosetta Fibromyalgia Mother Rosetta Bipolar disorder Sister Ynes Depression Sister Ynes Anxiety disorder Mother's Sister Rosetta Bilateral breast cancer Mother's Sister Rosetta Cervical cancer Maternal Grandmother Lung cancer Maternal Grandmother Kidney disease Maternal Grandmother Social History Tobacco Use Smoking status: Never Smokeless tobacco: Never Substance Use Topics Alcohol use: Not Currently Comment: caffeine: 1-2 cups per day Allergies: Codeine, Egg-derived products, Erythromycin, Fish-derived products, Latex, Lurasidone, Penicillamine, Penicillins, Phenazopyridine, Semaglutide, and Sumatriptan Vitals: 06/18/24 1453 BP: 128/76 Pulse: 90 Body mass index is 44.15 kg/m . weight: 299 lb Neurologic exam: Mental status: Obese, in no acute distress. Affect is flat. Grossly oriented to person, place and time. Recent and remote memory are intact. Speech is clear and fluent without aphasia. Attention and concentration are normal. Fund of knowledge is appropriate for level of education. Cranial nerves: CN II: Visual acuity is normal. Visual jamil full to confrontation. CN III, IV, : Pupils are equal, round and reactive to light. Extraocular movements intact. No ptosis present. CN V: Facial sensation is normal. CN VII: Full and symmetric facial movement. CN VIII: Hearing is intact. CN IX and X: Palate elevates symmetrically. CN XI: Shoulder shrug is normal bilaterally. CN XII: Tongue is midline without atrophy or fasciculation. Motor: RUE strength deltoid , biceps , triceps , wrist extensors , wrist flexor , and real estate assistant strength 5/5. LUE strength deltoid , biceps , triceps , wrist extensors , wrist flexor , and real estate assistant strength 5/5. RLE strength iliopsoas, quadriceps, tibialis anterior, plantar flexion, and dorsiflexion strength 5/5. LLE strength iliopsoas, quadriceps, tibialis anterior, plantar flexion, and dorsiflexion strength 5/5. Tone and bulk are normal. Sensory: Sensation is intact to light touch throughout distal extremities. Reflexes: RUE biceps reflex 2+ , brachioradialis reflex 2+. LUE biceps reflex 2+ , brachioradialis reflex 2+. RLE Knee reflex 2+. LLE Knee reflex 2+. Negative Cortez's sign. Coordination: Lesmvg-br-wfmf testing normal. Rapid alternating movements are normal. Gait: Normal. Review and summary of old records: Lumbar puncture on 12/04/20: Opening pressure of 25 MRI of the brain with and without contrast from 10/28/20: No acute intracranial process. No suspicious enhancement. A few punctate foci of increased T2 and flair signal are noted in the supratentorialwhite matter which is a nonspecific finding, associated with headaches or minimal chronic microvascular ischemic disease versus within normal limits for age. Assessment/Plan Diagnoses and all orders for this visit: Migraine without aura and without status migrainosus, not intractable (CMS/HCC) The patient reports a history of predominantly right-sided headaches which are seemingly most consistent with migraine. They are accompanied by photophobia and phonophobia and can be triggered by fluorescent lights and certain odors. Would also consider hemicrania continua (indomethacin was highly effective for treatment in the past but not tolerated due to GI side effects). Topiramate, sumatriptan (significant side effects with this), Fioricet, and Ajovy were ineffective or not tolerated previously. The patient's headaches are very well controlled on the current doses of verapamil ER and Emgality. She does occasionally experience an exacerbation and these have been infrequent and responsive to Depakote and Magnesium. PLAN: - Continue verapamil ER 180 mg by mouth once daily. - Continue Emgality 120 mg subcutaneous once every 30 days (could provide benefit for migraine prevention and possible trigeminal autonomic cephalgias) - Ok for sparing use of zofran for migraine associated nausea. - Migraine cocktail (depakote 500 mg PO BID with Mag Ox 400 mg daily x 5 days) has been effective for refractory breakthrough headaches in the past. This is not indicated currently - Continue Ubrelvy 100 mg by mouth daily as needed for migraine . Ok to repeat the dose x 1after at least 2 hours. Max 200 mg/24 hours. - Could consider cambia 50 mg or Nurtec in the future (she tried this previously but only once) if needed Recommended adequate hydration, sleep hygiene (regular use of CPAP), regular exercise as tolerated and avoidance of triggers. - Recommended weight loss. Hemicrania continua Right-sided headaches as described above. PLAN: - See above IIH (idiopathic intracranial hypertension) The patient has mild intracranial hypertension with opening pressure of 25 cm CSF on lumbar puncture (12/04/20). She previously took minocycline. Acetazolamide and topiramate were not tolerated in thepast. No significant concerns for intracranial hypertension at this time (the patient denies blurry/worsening vision or increased head pain upon coughing, sneezing, crying, leaning forward, or layingdown). PLAN: - I discussed the importance of serial eye exams with the patient to assess for papilledema and help prevent vision loss. She verbalizes understanding. The patient is established with [facility]. - Weight reduction encouraged Obesity, unspecified obesity severity, unspecified obesity type PLAN: - Weight reduction encouraged - Now following with endocrinology Other chronic pain Widespread bodily pains not confined to joints or muscles. Strongest consideration is for chronic pain syndrome/fibromyalgia. Lyrica has provided benefit for her symptoms. PLAN: - Continue Lyrica 25 mg by mouth twice a day. Side effects reviewed - Regular physical activity encouraged - There was previous mention of workup for bariatric surgery. Follow up with the ordering provider as recommended. - I would avoid other medication with serotonergic effects given her current prescriptions in this class Follow up in 2 months or sooner if symptoms worsen, fail to improve, or should a new neurological concern arise. Pt has been fully educated on their diagnosis, treatment options, follow up plan, and return instructions documented [facility] encounterMer[facility] [id number] Telephone encounter Note* Telephone Encounter - Nash Lovell RN - 06/07/2024 11:42 AM EST PA needed for tirzepatide (MOUNJARO) 2.5 mg/0.5 mL pen injector And tirzepatide (MOUNJARO) 5 mg/0.5 mL pen injector [facility]01-30-2025 Miscellaneous Notes* Telephone Encounter - Nash Lovell RN - 06/07/2024 11:42 AM EST PA needed for tirzepatide (MOUNJARO) 2.5 mg/0.5 mL pen injector And tirzepatide (MOUNJARO) 5 mg/0.5 mL pen injector documented in [facility] encounterKind[facility]01-28-2025 Telephone encounter Note * Telephone Encounter - Ean Haynes MA - 06/05/2024 10:23 AM EST A Prior Authorization is needed for Mounjaro 2.5 mg. Ean Haynes Planting Material Remover II Endocrinology & Metabolism [place] F20-X [facility]01-28-2025 Miscellaneous Notes* Telephone Encounter - Ean Haynes MA - 06/05/2024 10:23 AM EST A Prior Authorization is needed for Mounjaro 2.5 mg. Ean Haynes Planting Material Remover II Endocrinology & Metabolism [place] F20-X documented in this encounterKind[facility]01-24-2025 NoteHNO ID: [id number] Author: EDMUNDO DEVLIN MD Service: ? Author Type: Physician Type: Progress Notes Filed: 06/01/2024 14:30 Note Text: [facility] RETURN VISIT HISTORY OF PRESENT ILLNESS: Age: [age] year old Patient comes today for follow up of obesity and management of its comorbidities - Type 2 Diabetes (evidenced by HbA1c at 6.7% in 2021) - Hyperlipidemia - PCOS - Fibromyalgia - Major Depressive Disorder (has Bipolar 1 on chart by per patient she only has MDD, never had elaine or hypomania) - Anxiety) - DIETER (not using CPAP) Patient last seen: 06/2023 Weight Curve Current Medications for weight loss: -- Mounjaro - started 2.5 mg currently Some nausea/vomiting - when on 5 mg Diet: -- eats less -- better choices -- still not enough protein Appetite Control: -- not that hungry -- no binge eating -- portion control is OK Exercise: -- no exercise Sleep: -- doesn't sleep well -- DIETER - CPAP Stress: -- life is good -- stress is manageable REVIEW OF SYSTEMS: Review of Systems Constitutional: Positive for night sweats. Negative for recent unintentional weight change. Eyes: Negative for visual disturbance. Respiratory: Negative for difficulty breathing. Cardiovascular: Negative for chest pain and leg swelling. Gastrointestinal: Positive for nausea and diarrhea. Musculoskeletal: Positive for myalgias. Neurological: Positive for headaches. Negative for dizziness. MEDICATIONS: Current Outpatient Medications on File Prior to Visit Medication Sig tirzepatide (MOUNJARO) 2.5 mg/0.5 mL pen injector Inject 2.5 mg subcutaneously one time a week. MOUNJARO 5 mg/0.5 mL pen injector INJECT 5 MG UNDER THE SKIN 1 TIME A WEEK. START ON JULY 29, 2023 tirzepatide (MOUNJARO) 5 mg/0.5 mL pen injector Inject 5 mg subcutaneously one time a week. dextromethorphan-buPROPion (AUVELITY) 45-105 mg tablet 1 tablet Orally twice daily for 90 days galcanezumab-gnlm (EMGALITY PEN) 120 mg/mL pen ADMINISTER 1 ML UNDER THE SKIN EVERY 30 DAYS omeprazole (PRILOSEC) 40 mg capsule 1 capsule. UBRELVY 100 mg tablet TAKE 1 TABLET BY MOUTH AT ONSET OF MIGRAINE. MAY REPEAT AFTER 2 HOURS NEEDED 30 DAYS brexpiprazole (REXULTI) 2 mg tablet buspirone HCl (BUSPAR ORAL) hydrOXYzine pamoate (VISTARIL) 25 mg capsule TAKE 1 CAPSULE BY MOUTH EVERY DAY AT BEDTIME NEEDED ondansetron (ZOFRAN) 4 mg tablet Take 4 mg by mouth. fluticasone (FLONASE) 50 mcg/actuation nasal spray SHAKE LIQUID AND USE 2 SPRAYS IN EACH NOSTRIL EVERY DAY ADVAIR HFA 230-21 mcg/actuation inhaler INHALE 2 PUFFS BY MOUTH TWICE DAILY DIRECTED verapamil (CALAN, ISOPTIN) 120 mg tablet Take 120 mg by mouth once daily. dicyclomine (BENTYL) 20 mg tablet Take 20 mg by mouth as needed. albuterol 90 mcg/Actuation INHALATION Aero as necessary for asthma No current facility-administered medications on file prior to visit. SIGNIFICANT PAST MEDICAL HISTORY, SOCIAL HISTORY AND FAMILY HISTORY: PAST MEDICAL HISTORY Diagnosis Date Abdominal pain, generalized Anxiety and depression Anxiety disorder in conditions classified elsewhere has panic attacks. Arthritis Bipolar 1 disorder (HCC) BMI 40.0-44.9, adult (HCC) Crohn's disease (HCC) 2008 in [place] Depressive disorder, not elsewhere classified cymbalta Endometriosis, site unspecified DIAGNOSED IN 2003 Fibromyalgia Former smoker GERD (gastroesophageal reflux disease) Hemorrhage of gastrointestinal tract, unspecified rectal bleeding Irritable bowel syndrome On Bentyl and Phenergan, crohn's DX Migraines Morbid obesity (HCC) Other forms of migraine Uses Excedrin PRN. PCOS (polycystic ovarian syndrome) Pneumonia Unspecified asthma(493.90) PRN Albuterol FAMILY HISTORY Problem Relation Age of Onset Cancer Mother ovarian and cervical Diabetes Mother Cancer Maternal Grandmother ovarian and cervical Diabetes Maternal Grandmother Coronary Artery Disease Maternal Grandmother Heart Maternal Aunt Hypertension Maternal Aunt Coronary Artery Disease Paternal Grandfather Hypertension Maternal Grandfather Social History Tobacco Use Smoking status: Former Current packs/day: 0.00 Average packs/day: 0.5 packs/day for 1 year (0.5 ttl pk-yrs) Types: Cigarettes Start date: 05/09/2005 Quit date: 05/09/2006 Years since quittin.0 Smokeless tobacco: Never Tobacco comments: PATIENT SMOKED 4-5 CIGARETTES DAILY BEFORE QUITTING Vaping Use Vaping status: Never Used Substance Use Topics Alcohol use: No Drug use: No PHYSICAL EXAM: Alma Delia Pearl is a 39 year old year old female who looks her stated age. Vital Signs Wt (!) 137 kg (302 lb) LMP 04/05/2016 (Approximate) BMI 44.60 kg/m? Virtual visit General: no acute distress Psychiatry: normal affect PERTINENT LABORATORY AND IMAGING:All pertinent laboratory results were reviewed. Please see HPI for further details. IMPRESSION/PLAN: (more content not included)...[facility] 06-01-2024 History of Present illness Narrative* Edmundo Devlin MD - 06/01/2024 2:10 PM EST Images from the original note were not included. [facility] RETURN VISIT HISTORY OF PRESENT ILLNESS: Age: [age] year old Patient comes today for follow up of obesity and management of its comorbidities - Type 2 Diabetes (evidenced by HbA1c at 6.7% in 2021) - Hyperlipidemia - PCOS - Fibromyalgia - Major Depressive Disorder (has Bipolar 1 on chart by per patient she only has MDD, never had elaine or hypomania) - Anxiety) - DIETER (not using CPAP) Patient last seen: 06/2023 Weight Curve Current Medications for weight loss: -- Mounjaro - started 2.5 mg currently Some nausea/vomiting - when on 5 mg Diet: -- eats less -- better choices -- still not enough protein Appetite Control: -- not that hungry -- no binge eating -- portion control is OK Exercise: -- no exercise Sleep: -- doesn't sleep well -- DIETER - CPAP Stress: -- life is good -- stress is manageable REVIEW OF SYSTEMS: Review of Systems Constitutional: Positive for night sweats. Negative for recent unintentional weight change. Eyes: Negative for visual disturbance. Respiratory: Negative for difficulty breathing. Cardiovascular: Negative for chest pain and leg swelling. Gastrointestinal: Positive for nausea and diarrhea. Musculoskeletal: Positive for myalgias. Neurological: Positive for headaches. Negative for dizziness. MEDICATIONS: Current Outpatient Medications on File Prior to Visit Medication Sig tirzepatide (MOUNJARO) 2.5 mg/0.5 mL pen injector Inject 2.5 mg subcutaneously one time a week. MOUNJARO 5 mg/0.5 mL pen injector INJECT 5 MG UNDER THE SKIN 1 TIME A WEEK. START ON JULY 29, 2023 tirzepatide (MOUNJARO) 5 mg/0.5 mL pen injector Inject 5 mg subcutaneously one time a week. dextromethorphan-buPROPion (AUVELITY) 45-105 mg tablet 1 tablet Orally twice daily for 90 days galcanezumab-gnlm (EMGALITY PEN) 120 mg/mL pen ADMINISTER 1 ML UNDER THE SKIN EVERY 30 DAYS omeprazole (PRILOSEC) 40 mg capsule 1 capsule. UBRELVY 100 mg tablet TAKE 1 TABLET BY MOUTH AT ONSET OF MIGRAINE. MAY REPEAT AFTER 2 HOURS NEEDED 30 DAYS brexpiprazole (REXULTI) 2 mg tablet buspirone HCl (BUSPAR ORAL) hydrOXYzine pamoate (VISTARIL) 25 mg capsule TAKE 1 CAPSULE BY MOUTH EVERY DAY AT BEDTIME NEEDED ondansetron (ZOFRAN) 4 mg tablet Take 4 mg by mouth. fluticasone (FLONASE) 50 mcg/actuation nasal spray SHAKE LIQUID AND USE 2 SPRAYS IN EACH NOSTRIL EVERY DAY ADVAIR HFA 230-21 mcg/actuation inhaler INHALE 2 PUFFS BY MOUTH TWICE DAILY DIRECTED verapamil (CALAN, ISOPTIN) 120 mg tablet Take 120 mg by mouth once daily. dicyclomine (BENTYL) 20 mg tablet Take 20 mg by mouth as needed. albuterol 90 mcg/Actuation INHALATION Aero as necessary for asthma No current facility-administered medications on file prior to visit. SIGNIFICANT PAST MEDICAL HISTORY, SOCIAL HISTORY AND FAMILY HISTORY: PAST MEDICAL HISTORY Diagnosis Date Abdominal pain, generalized Anxiety and depression Anxiety disorder in conditions classified elsewhere has panic attacks. Arthritis Bipolar 1 disorder (HCC) BMI 40.0-44.9, adult ([facility]) Crohn's disease (HCC) 2008 in [place] Depressive disorder, not elsewhere classified cymbalta Endometriosis, site unspecified DIAGNOSED IN 2003 Fibromyalgia Former smoker GERD (gastroesophageal reflux disease) Hemorrhage of gastrointestinal tract, unspecified rectal bleeding Irritable bowel syndrome On Bentyl and Phenergan, crohn's DX Migraines Morbid obesity (HCC) Other forms of migraine Uses Excedrin PRN. PCOS (polycystic ovarian syndrome) Pneumonia Unspecified asthma(493.90) PRN Albuterol FAMILY HISTORY Problem Relation Age of Onset Cancer Mother ovarian and cervical Diabetes Mother Cancer Maternal Grandmother ovarian and cervical Diabetes Maternal Grandmother Coronary Artery Disease Maternal Grandmother Heart Maternal Aunt Hypertension Maternal Aunt Coronary Artery Disease Paternal Grandfather Hypertension Maternal Grandfather Social History Tobacco Use Smoking status: Former Current packs/day: 0.00 Average packs/day: 0.5 packs/day for 1 year (0.5 ttl pk-yrs) Types: Cigarettes Start date: 05/09/2005 Quit date: 05/09/2006 Years since quittin.0 Smokeless tobacco: Never Tobacco comments: PATIENT SMOKED 4-5 CIGARETTES DAILY BEFORE QUITTING Vaping Use Vaping status: Never Used Substance Use Topics Alcohol use: No Drug use: No PHYSICAL EXAM: Alma Delia Pearl is a 39 year old year old female who looks her stated age. Vital Signs Wt (!) 137 kg (302 lb) LMP 04/05/2016 (Approximate) BMI 44.60 kg/m Virtual visit General: no acute distress Psychiatry: normal affect PERTINENT LABORATORY AND IMAGING:All pertinent laboratory results were reviewed. Please see HPI forfurther details. IMPRESSION/PLAN: Encounter Diagnosis ICD-10-CM 1. Type 2 diabetes mellitus without complication, without long-term current use of insulin ([facility]) E11.9 tirzepatide (MOUNJARO) 5 mg/0.5 mL pen injector 2. Class 3 severe obesity with serious comorbidity and body mass index (BMI) of 40.0 to 44.9 in adult, unspecified obesity type ([facility]) E66.813 tirzepatide (MOUNJARO) 5 mg/0.5 mL pen injector E66.01 Z68.41 Patient comes today for follow up of obesity and its comorbidities treatment. Patient also has type2 DM. Patient is on low dose mounjaro. No further weight gain but now significant weight loss. Plan: -- Reviewed current treatment plan, set point, metabolic adaptation, weight plateau. Discussed adjustment of treatment and new goal setting. -- Goals: -- Discussed new goals -- need to titrate medication up -- Diet and Appetite -- improving -- benefits from better control -- Exercise -- not exercising. Discussed the importance of exercise -- Sleep -- Healthy sleep hygiene emphasized -- Stress -- ok -- Weight Loss Medication and DM -- increase Mounjaro to 5 mg -- titrate up if tolerating -- Follow up -- 3 months All questions answered today. Edmundo Devlin MD [facility] Hospital Discharge instructions Patient Education 05/22/2024 14:13:56 Lumbosacral Radiculopathy Lumbosacral Radiculopathy Lumbosacral radiculopathy is a condition that involves the spinal nerves and nerve roots in the lowback and bottom of the spine. The condition develops when these nerves and nerve roots move out of place or become inflamed and cause symptoms. What are the causes? This condition may be caused by: Pressure from a disk that bulges out of place (herniated disk). A disk is a plate of soft cartilagethat separates bones in the spine. Disk changes that occur with age (disk degeneration). A narrowing of the bones of the lower back (spinal stenosis). A tumor. An infection. An injury that places sudden pressure on the disks that cushion the bones of your lower spine. What increases the risk? You are more likely to develop this condition if: You are a male who is 30 50 years old. You are a female who is 50 60 years old. You use improper technique when lifting things. You are overweight or live a sedentary lifestyle. You smoke. Your work requires frequent lifting. You do repetitive activities that strain the spine. What are the signs or symptoms? Symptoms of this condition include: Pain that goes down from your back into your legs (sciatica), usually on one side of the body. Thisis the most common symptom. The pain may be worse when you sit, cough, or sneeze. Tingling and numbness in your legs. Muscle weakness in your legs. Loss of bladder control or bowel control. How is this diagnosed? This condition may be diagnosed based on: Your symptoms and medical history. A physical exam. If the pain lasts, you may have tests, such as: MRI. X-ray. CT scan. A type of CT scan used to examine the spinal canal after injecting a dye into your spine (myelogram). A test to measure how electrical impulses move through a nerve (nerve conduction study). A test to measure the electrical activity in muscles (electromyogram). How is this treated? In many cases, treatment is not needed for this condition. With rest, the condition usually gets better over time. If treatment is needed, it may include: Working with a physical therapist to improve strength and flexibility. Taking pain medicine. Applying heat or ice or both to the affected areas. Having chiropractic spinal manipulation. Using transcutaneous electrical nerve stimulation (TENS) therapy. Getting a steroid injection in the spine. Having surgery. This may be needed if other treatments do not help. Different types of surgery may be done depending on the cause of this condition. Follow these instructions at home: Activity Avoid bending and any other activities that make the problem worse. Maintain a proper position when standing or sitting. ?When standing, keep your upper back and neck straight with your shoulders pulled back. Avoid slouching. ?When sitting, keep your back straight and relax your shoulders. Do not round your shoulders or pull them backward. Do not sit or inspector publications one place for long periods of time. Take brief periods of rest throughout the day. This will reduce your pain. It is usually better to rest by lying down or standing, not sitting. Mix in mild activity or stretching between long periods of rest. This will help to prevent stiffness and pain. Get regular exercise. Ask your health care provider what activities are safe for you. If you were shown how to do any exercises or stretches, do them as told by your health care provider. You may have to avoid lifting. Ask your health care provider how much you can safely lift. Always use proper lifting technique, which includes: ?Bending your knees. ?Keeping the load close to your body. ?Avoiding twisting. Managing pain If directed, put ice on the affected area. To do this: ?Put ice in a plastic bag. ?Place a towel between your skin and the bag. ?Leave the ice on for 20 minutes, 2 3 times a day. ?Remove the ice if your skin turns bright red. This is very important. If you cannot feel pain, heat, or cold, you have a greater risk of damage to the area. If directed, apply heat to the affected area as often as told by your health care provider. Use theheat source that your health care provider recommends, such as a moist heat pack or a heating pad. ?Place a towel between your skin and the heat source. ?Leave the heat on for 20 30 minutes. ?Remove the heat if your skin turns bright red. This is especially important if you are unable to feel pain, heat, or cold. You have a greater risk of getting burned. Take nfvp-eve-iqcgahx and prescription medicines only as told by your health care provider. General instructions Sleep on a firm mattress in a comfortable position. Try lying on your side with your knees slightlybent. If you lie on your back, put a pillow under your knees. Ask your health care provider if the medicine prescribed to you requires you to avoid driving or using machinery. If your health care provider prescribed a diet or exercise program, follow it as told. Keep all follow-up visits. This is important. Contact a health care provider if: Your pain does not get better over time, even when taking pain medicines. Get help right away if: You develop severe pain. Your pain suddenly gets worse. You develop increasing weakness in your legs. You lose the ability to control your bladder or bowel. You have difficulty walking or balancing. You have a fever. Summary Lumbosacral radiculopathy is a condition that occurs when the spinal nerves and nerve roots in the lower part of the spine move out of place or become inflamed and cause symptoms. Symptoms include pain, numbness, and tingling that go down from your back into your legs (sciatica), muscle weakness, and loss of bladder control or bowel control. If directed, apply ice or heat or both to the affected area as told by your health care provider. Follow instructions about activity, rest, and proper lifting technique. This information is not intended to replace advice given to you by your health care provider. Make sure you discuss any questions you have with your health care provider. Document Revised: 10/29/2021 Document Reviewed: 10/29/2021 [employer] Patient Education 2023 [employer]. Follow Up Care 05/22/2024 12:34:45 With:Irasema Love Address: [facility] [address], [place] [address]- When: Unknown [facility] 01-14-2025 NotePatient Education Orthopedics Lumbosacral Radiculopathy Lumbosacral radiculopathy is a condition that involves the spinal nerves and nerve roots in the lowback and bottom of the spine. The condition develops when these nerves and nerve roots move out of place or become inflamed and cause symptoms. What are the causes? This condition may be caused by: ??? Pressure from a disk that bulges out of place (herniated disk). A disk is a plate of soft cartilage that separates bones in the spine. ??? Disk changes that occur with age (disk degeneration). ??? A narrowing of the bones of the lower back (spinal stenosis). ??? A tumor. ??? An infection. ??? An injury that places sudden pressure on the disks that cushion the bones of your lower spine. What increases the risk? You are more likely to develop this condition if: ??? You are a male who is 30?50 years old. ??? You are a female who is 50?60 years old. ??? You use improper technique when lifting things. ??? You are overweight or live a sedentary lifestyle. ??? You smoke. ??? Your work requires frequent lifting. ??? You do repetitive activities that strain the spine. What are the signs or symptoms? Symptoms of this condition include: ??? Pain that goes down from your back into your legs (sciatica), usually on one side of the body. This is the most common symptom. The pain may be worse when you sit, cough, or sneeze. ??? Tingling and numbness in your legs. ??? Muscle weakness in your legs. ??? Loss of bladder control or bowel control. How is this diagnosed? This condition may be diagnosed based on: ??? Your symptoms and medical history. ??? A physical exam. If the pain lasts, you may have tests, such as: ??? MRI. ??? X-ray. ??? CT scan. ??? A type of CT scan used to examine the spinal canal after injecting a dye into your spine (myelogram). ??? A test to measure how electrical impulses move through a nerve (nerve conduction study). ??? A test to measure the electrical activity in muscles (electromyogram). How is this treated? In many cases, treatment is not needed for this condition. With rest, the condition usually gets better over time. If treatment is needed, it may include: ??? Working with a physical therapist to improve strength and flexibility. ??? Taking pain medicine. ??? Applying heat or ice or both to the affected areas. ??? Having chiropractic spinal manipulation. ??? Using transcutaneous electrical nerve stimulation (TENS) therapy. ??? Getting a steroid injection in the spine. ??? Having surgery. This may be needed if other treatments do not help. Different types of surgery may be done depending on the cause of this condition. Follow these instructions at home: Activity ??? Avoid bending and any other activities that make the problem worse. ??? Maintain a proper position when standing or sitting. ? When standing, keep your upper back and neck straight with your shoulders pulled back. Avoid slouching. ? When sitting, keep your back straight and relax your shoulders. Do not round your shoulders or pull them backward. ??? Do not sit or inspector publications one place for long periods of time. ??? Take brief periods of rest throughout the day. This will reduce your pain. It is usually betterto rest by lying down or standing, not sitting. ??? Mix in mild activity or stretching between long periods of rest. This will help to prevent stiffness and pain. ??? Get regular exercise. Ask your health care provider what activities are safe for you. If you were shown how to do any exercises or stretches, do them as told by your health care provider. ??? You may have to avoid lifting. Ask your health care provider how much you can safely lift. ??? Always use proper lifting technique, which includes: ? Bending your knees. ? Keeping the load close to your body. ? Avoiding twisting. Managing pain ??? If directed, put ice on the affected area. To do this: ? Put ice in a plastic bag. ? Place a towel between your skin and the bag. ? Leave the ice on for 20 minutes, 2?3 times a day. ? Remove the ice if your skin turns bright red. This is very important. If you cannot feel pain, heat, or cold, you have a greater risk of damage to the area. ??? If directed, apply heat to the affected area as often as told by your health care provider. Usethe heat source that your health care provider recommends, such as a moist heat pack or a heating pad. ? Place a towel between your skin and the heat source. ? Leave the heat on for 20?30 minutes. ? Remove the heat if your skin turns bright red. This is especially important if you are unable to feel pain, heat, or cold. You have a greater risk of getting burned. ??? Take rovw-oag-pzetfqb and prescription medicines only as told by your health care provider. General instructions ??? Sleep on a firm mattress in a comfortable position. Try lying on your side with your knees s (more content not included)...[facility] 05-15-2024 Telephone encounter Note* Telephone Encounter - Keyla Gusman NP - 05/15/2024 10:12 AM EST OARRs reviewed. [id number] Miscellaneous Notes* Telephone Encounter - Keyla Gusman NP - 05/15/2024 10:12 AM EST OARRs reviewed. Rx sent * Telephone Encounter - Quincy Sherman MA - 05/15/2024 9:53 AM EST 03/29/2024 - Continue Lyrica 25 mg by mouth twice a day. Side effects reviewed Oarrs reviewed. Due now. documented in [facility] encounterMer[facility] [id number] Telephone encounter Note* Telephone Encounter - Quincy Sherman MA - 05/15/2024 9:53 AM EST 03/29/2024 - Continue Lyrica 25 mg by mouth twice a day. Side effects reviewed Oarrs reviewed. [facility] now. [id number] Telephone encounter Note* Telephone Encounter - Peyton Thomas RN - 05/03/2024 1:17 PM EST Requester: Patient Patients last Endocrinology visit occurred 07/01/2023. Follow-up evaluation has been established Upcoming Endocrinology Appointments - Next 365 Days Visit Type Date Time Department VIDEO SPEC EST 06/01/2024 2:10 PM [facility] . Requested Prescriptions Pending Prescriptions Disp Refills tirzepatide (MOUNJARO) 2.5 mg/0.5 mL pen injector 2 mL 3 Sig: Inject 2.5 mg subcutaneously one time a week. If patient is due for an appointment please route to provider for refill consideration and also to the endo scheduling pool. PSS NOTE: Patient needs scheduled appointment No [facility]12-26-2024 Miscellaneous Notes* Telephone Encounter - Peyton Thomas RN - 05/03/2024 1:17 PM EST Requester: Patient Patients last Endocrinology visit occurred 07/01/2023. Follow-up evaluation has been established Upcoming Endocrinology Appointments - Next 365 Days Visit Type Date Time Department VIDEO SPEC EST 06/01/2024 2:10 PM [facility] . Requested Prescriptions Pending Prescriptions Disp Refills tirzepatide (MOUNJARO) 2.5 mg/0.5 mL pen injector 2 mL 3 Sig: Inject 2.5 mg subcutaneously one time a week. If patient is due for an appointment please route to provider for refill consideration and also to the endo scheduling pool. PSS NOTE: Patient needs scheduled appointment No documented in [facility]11-[facility]-20[facility] History of Present illness Narrative* Keyla Gusman NP - 03/29/2024 11:20 AM EST Images from the original note were not included. Chief Complaint Patient presents with Migraine IIH Pain Subjective Alma Delia Pearl is a 38 y.o. female. The patient presents today for follow up to IIH and migraine. She is taking Verapamil ER 180 mg andhas continued Emgality which which have been very helpful as preventatives. She does admit an exacerbation in January that required cocktail with Depakote and Magnesium. She states this did again provide relief. She states that her migrianes/headaches have returned to her baseline and she is currently getting 1-2 breakthroughs per month. She takes Ubrelvy for these which is effective, admits needing 2nd dose at times. Migraines are typically right sided with with accompanying light/sound sensitivity and nausea. Admits sleep helps. She was started on Strattera by psychiatry today, has not picked up from pharmacy. She denies any new concerns today. Review of Systems Constitutional: Negative for appetite change, fatigue and fever. Eyes: Negative for pain and visual disturbance. Respiratory: Negative for cough, shortness of breath and wheezing. Cardiovascular: Negative for chest pain, palpitations and leg swelling. Gastrointestinal: Negative for abdominal pain, constipation, diarrhea, nausea and vomiting. Musculoskeletal: Negative for arthralgias, gait problem and myalgias. Neurological: Positive for headaches. Negative for dizziness, tremors, seizures, weakness and numbness. Past Medical History: Diagnosis Date ADHD (attention deficit hyperactivity disorder) ([facility]) 2020 Allergies Amenorrhea Anemia Anxiety Asthma (CMS/HCC) Bipolar disorder (CMS/HCC) Bradycardia Chlamydia Chronic pain Common migraine ([facility]/HCC) COPD (chronic obstructive pulmonary disease) ([facility]/HCC) Crohn's disease ([facility]/HCC) Depression ([facility]/HCC) Diabetes (CMS/HCC) Easy bruising Factor V Leiden mutation (CMS/HCC) Fatigue Fibromyalgia Fibromyalgia, primary 2010 GERD (gastroesophageal reflux disease) Headache History of degenerative disc disease History of miscarriage 13 total Hyperlipemia (CMS/HCC) Hypersomnia Joint pain Low back pain Lumbar back pain with radiculopathy affecting right lower extremity Lung nodule Migraine (CMS/HCC) Morbid obesity with BMI of 40.0-44.9, adult (CMS/HCC) Muscle spasm Myalgia Nonsmoker PCOS (polycystic ovarian syndrome) Polycystic ovarian disease Polycystic ovaries Positive urine drug screen Sleep apnea 2020 Snoring Spinal stenosis Trichomoniasis Past Surgical History: Procedure Laterality Date BACK SURGERY back decompression surgery lumbar COLONOSCOPY x2 2011, 2018 CYST REMOVAL 12/2023 sternal EGD 05/2016 and colonoscopy EGD 07/2014 and colonoscopy LAPAROSCOPY DIAGNOSTIC / BIOPSY / ASPIRATION / LYSIS x3 TONSILLECTOMY Family History Problem Relation Name Age of Onset Bipolar disorder Mother Rosetta Hepatitis Mother Rosetta Kidney disease Mother Rosetta Heart disease Mother Rosetta Cancer Mother Rosetta Depression Mother Rosetta Fibromyalgia Mother Rosetta Bipolar disorder Sister Ynes Depression Sister Ynes Anxiety disorder Mother's Sister Rosetta Bilateral breast cancer Mother's Sister Rosetta Cervical cancer Maternal Grandmother Lung cancer Maternal Grandmother Kidney disease Maternal Grandmother Social History Tobacco Use Smoking status: Never Smokeless tobacco: Never Substance Use Topics Alcohol use: Not Currently Comment: caffeine: 1-2 cups per day Allergies: Codeine, Egg-derived products, Erythromycin, Fish-derived products, Latex, Lurasidone, Penicillamine, Penicillins, Phenazopyridine, Semaglutide, and Sumatriptan Vitals: 03/29/24 1113 BP: 142/86 Pulse: 78 Body mass index is 44.75 kg/m . weight: 303 lb Neurologic exam: Mental status: Obese, in no acute distress. Affect is flat. Grossly oriented to person, place and time. Recent and remote memory are intact. Speech is clear and fluent without aphasia. Attention and concentration are normal. Fund of knowledge is appropriate for level of education. Cranial nerves: CN II: Visual acuity is normal. Visual jamil full to confrontation. CN III, IV, : Pupils are equal, round and reactive to light. Extraocular movements intact. No ptosis present. CN V: Facial sensation is normal. CN VII: Full and symmetric facial movement. CN VIII: Hearing is intact. CN IX and X: Palate elevates symmetrically. CN XI: Shoulder shrug is normal bilaterally. CN XII: Tongue is midline without atrophy or fasciculation. Motor: RUE strength deltoid , biceps , triceps , wrist extensors , wrist flexor , and real estate assistant strength 5/5. LUE strength deltoid , biceps , triceps , wrist extensors , wrist flexor , and real estate assistant strength 5/5. RLE strength iliopsoas, quadriceps, tibialis anterior, plantar flexion, and dorsiflexion strength 5/5. LLE strength iliopsoas, quadriceps, tibialis anterior, plantar flexion, and dorsiflexion strength 5/5. Tone and bulk are normal. Sensory: Sensation is intact to light touch throughout distal extremities. Reflexes: RUE biceps reflex 2+ , brachioradialis reflex 2+. LUE biceps reflex 2+ , brachioradialis reflex 2+. RLE Knee reflex 2+. LLE Knee reflex 2+. Negative Cortez's sign. Coordination: Gbbfnb-su-ovow testing normal. Rapid alternating movements are normal. Gait: Normal. Review and summary of old records: Lumbar puncture on 12/04/20: Opening pressure of 25 MRI of the brain with and without contrast from 10/28/20: No acute intracranial process. No suspicious enhancement. A few punctate foci of increased T2 and flair signal are noted in the supratentorialwhite matter which is a nonspecific finding, associated with headaches or minimal chronic microvascular ischemic disease versus within normal limits for age. Assessment/Plan Diagnoses and all orders for this visit: Migraine without aura and without status migrainosus, not intractable (CMS/HCC) The patient reports a history of predominantly right-sided headaches which are seemingly most consistent with migraine. They are accompanied by photophobia and phonophobia and can be triggered by fluorescent lights and certain odors. Would also consider hemicrania continua (indomethacin was highly effective for treatment in the past but not tolerated due to GI side effects). Topiramate, sumatriptan (significant side effects with this), Fioricet, and Ajovy were ineffective or not tolerated previously. The patient's headaches are very well controlled on the current doses of verapamil ER and Emgality. She does occasionally experience an exacerbation and these have been infrequent and responsive to Depakote and Magnesium. PLAN: - Continue verapamil ER 180 mg by mouth once daily. - Continue Emgality 120 mg subcutaneous once every 30 days (could provide benefit for migraine prevention and possible trigeminal autonomic cephalgias) - Ok for sparing use of zofran for migraine associated nausea. - Migraine cocktail (depakote 500 mg PO BID with Mag Ox 400 mg daily x 5 days) has been effective for refractory breakthrough headaches in the past. This is not indicated currently - Continue Ubrelvy 100 mg by mouth daily as needed for migraine . Ok to repeat the dose x 1after at least 2 hours. Max 200 mg/24 hours. - Could consider cambia 50 mg or Nurtec in the future (she tried this previously but only once) if needed Recommended adequate hydration, sleep hygiene (regular use of CPAP), regular exercise as tolerated and avoidance of triggers. - Recommended weight loss. Hemicrania continua Right-sided headaches as described above. PLAN: - See above IIH (idiopathic intracranial hypertension) The patient has mild intracranial hypertension with opening pressure of 25 cm CSF on lumbar puncture (12/04/20). She previously took minocycline. Acetazolamide and topiramate were not tolerated in thepast. No significant concerns for intracranial hypertension at this time (the patient denies blurry/worsening vision or increased head pain upon coughing, sneezing, crying, leaning forward, or layingdown). PLAN: - I discussed the importance of serial eye exams with the patient to assess for papilledema and help prevent vision loss. She verbalizes understanding. The patient is established with [facility]. - Weight reduction encouraged Obesity, unspecified obesity severity, unspecified obesity type PLAN: - Weight reduction encouraged - Now following with endocrinology Other chronic pain Widespread bodily pains not confined to joints or muscles. Strongest consideration is for chronic pain syndrome/fibromyalgia. Lyrica has provided benefit for her symptoms. PLAN: - Continue Lyrica 25 mg by mouth twice a day. Side effects reviewed - Regular physical activity encouraged - There was previous mention of workup for bariatric surgery. Follow up with the ordering provider as recommended. - I would avoid other medication with serotonergic effects given her current prescriptions in this class Follow up in 3-4 months or sooner if symptoms worsen, fail to improve, or should a new neurologicalconcern arise. Pt has been fully educated on their diagnosis, treatment options, follow up plan, and return instructions documented in this encounterMer[facility] [id number] Telephone encounter Note* Telephone Encounter - Mayco Fagan MA - 03/21/2024 2:48 PM EST Requester: Pharmacy Patients last Endocrinology visit occurred 07/01/2023 Follow-up evaluation has been established 06/01/2024. Requested Prescriptions Pending Prescriptions Disp Refills MOUNJARO 5 mg/0.5 mL pen injector [Pharmacy Med Name: MOUNJARO 5MG/0.5ML INJ (4 PENS)] 2 mL 2 Sig: INJECT 5 MG UNDER THE SKIN 1 TIME A WEEK. START ON JULY 29, 2023 If patient is due for an appointment please route to provider for refill consideration and also to the endo scheduling pool. PSS NOTE: Patient needs scheduled appointment No [facility]11-13-2024 Miscellaneous Notes* Telephone Encounter - Mayco Fagan MA - 03/21/2024 2:48 PM EST Requester: Pharmacy Patients last Endocrinology visit occurred 07/01/2023 Follow-up evaluation has been established 06/01/2024. Requested Prescriptions Pending Prescriptions Disp Refills MOUNJARO 5 mg/0.5 mL pen injector [Pharmacy Med Name: MOUNJARO 5MG/0.5ML INJ (4 PENS)] 2 mL 2 Sig: INJECT 5 MG UNDER THE SKIN 1 TIME A WEEK. START ON JULY 29, 2023 If patient is due for an appointment please route to provider for refill consideration and also to the endo scheduling pool. PSS NOTE: Patient needs scheduled appointment No documented in this [facility]-2024 Telephone encounter Note * Telephone Encounter - Keyla Gusman NP - 03/19/2024 12:20 PM EST 30 day supply was dispensed on 03/01. Note added for pharmacy review. OARRs reviewed. [facility] [id number] Miscellaneous Notes* Telephone Encounter - Keyla Gusman NP - 03/19/2024 12:20 PM EST 30 day supply was dispensed on 03/01. Note added for pharmacy review. OARRs reviewed. * Telephone Encounter - Neil Bhardwaj MA - 03/19/2024 10:35 AM EST Oarrs reviewed 10.24, pregabalin 25 mg, 20 days, 60 capsules[facility] documented in this encounterMer[facility] Hospital [id number] Telephone encounter Note* Telephone Encounter - Neil Bhardwaj MA - 03/19/2024 10:35 AM EST Oarrs reviewed 10.24, pregabalin 25 mg, 20 days, 60 capsules, [facility] [id number] Hospital Discharge instructions Patient Education 03/02/2024 22:17:12 Upper Respiratory Infection, Adult, Jxav-jo-Zrsq Upper Respiratory Infection, Adult An upper respiratory infection (URI) affects the nose, throat, and upper airways that lead to the lungs. The most common type of URI is often called the common cold. URIs usually get better on their own, without medical treatment. What are the causes? A URI is caused by a germ (virus). You may catch these germs by: Breathing in droplets from an infected person's cough or sneeze. Touching something that has the germ on it (is contaminated) and then touching your mouth, nose, oreyes. What increases the risk? You are more likely to get a URI if: You are very young or very old. You have close contact with others, such as at work, school, or a health care facility. You smoke. You have long-term (chronic) heart or lung disease. You have a weakened disease-fighting system (immune system). You have nasal allergies or asthma. You have a lot of stress. You have poor nutrition. What are the signs or symptoms? Runny or stuffy (congested) nose. Cough. Sneezing. Sore throat. Headache. Feeling tired (fatigue). Fever. Not wanting to eat as much as usual. Pain in your forehead, behind your eyes, and over your cheekbones (sinus pain). Muscle aches. Redness or irritation of the eyes. Pressure in the ears or face. How is this treated? URIs usually get better on their own within 7 10 days. Medicines cannot cure URIs, but your doctor may recommend certain medicines to help relieve symptoms, such as: Azxa-sbn-kzwqzal cold medicines. Medicines to reduce coughing (cough suppressants). Coughing is a type of defense against infection that helps to clear the nose, throat, windpipe, and lungs (respiratory system). Take these medicinesonly as told by your doctor. Medicines to lower your fever. Follow these instructions at home: Activity Rest as needed. If you have a fever, stay home from work or school until your fever is gone, or until your doctor says you may return to work or school. ?You should stay home until you cannot spread the infection anymore (you are not contagious). ?Your doctor may have you wear a face mask so you have less risk of spreading the infection. Relieving symptoms Rinse your mouth often with salt water. To make salt water, dissolve 1 tsp (3 6 g) of salt in 1 cup(237 mL) of warm water. Use a cool-mist humidifier to add moisture to the air. This can help you breathe more easily. Eating and drinking Drink enough fluid to keep your pee (urine) pale yellow. Eat soups and other clear broths. General instructions Take tzdp-rwe-tceqrnd and prescription medicines only as told by your doctor. Do not smoke or use any products that contain nicotine or tobacco. If you need help quitting, ask your doctor. Avoid being where people are smoking (avoid secondhand smoke). Stay up to date on all your shots (immunizations), and get the flu shot every year. Keep all follow-up visits. How to prevent the spread of infection to others Wash your hands with soap and water for at least 20 seconds. If you cannot use soap and water, use hand administrative technician. Avoid touching your mouth, face, eyes, or nose. Cough or sneeze into a tissue or your sleeve or elbow. Do not cough or sneeze into your hand or into the air. Contact a doctor if: You are getting worse, not better. You have any of these: ?A fever or chills. ?Brown or red mucus in your nose. ?Yellow or brown fluid (discharge)coming from your nose. ?Pain in your face, especially when you bend forward. ?Swollen neck glands. ?Pain when you swallow. ?White areas in the back of your throat. Get help right away if: You have shortness of breath that gets worse. You have very bad or constant: ?Headache. ?Ear pain. ?Pain in your forehead, behind your eyes, and over your cheekbones (sinus pain). ?Chest pain. You have long-lasting (chronic) lung disease along with any of these: ?Making high-pitched whistling sounds when you breathe, most often when you breathe out (wheezing). ?Long-lasting cough (more than 14 days). ?Coughing up blood. ?A change in your usual mucus. You have a stiff neck. You have changes in your: ?Vision. ?Hearing. ?Thinking. ?Mood. These symptoms may be an emergency. Get help right away. Call 911. Do not wait to see if the symptoms will go away. Do not drive yourself to the hospital. Summary An upper respiratory infection (URI) is caused by a germ (virus). The most common type of URI is often called the common cold. URIs usually get better within 7 10 days. Take vauk-ggx-fobeozk and prescription medicines only as told by your doctor. This information is not intended to replace advice given to you by your health care provider. Make sure you discuss any questions you have with your health care provider. Document Revised: 11/25/2021 Document Reviewed: 11/25/2021 Elsevier Patient Education 2023 [employer]. Follow Up Care 03/02/2024 21:09:52 With:Irasema Zacarias Address: [address] [place] [address], [facility] [place] [address]- Business (1) When:03/05/2024 Comments:Call for diagnosis based follow up [facility] 10-25-2024 NoteED Patient Education Note Infectious Disease Upper Respiratory Infection, Adult An upper respiratory infection (URI) affects the nose, throat, and upper airways that lead to the lungs. The most common type of URI is often called the common cold. URIs usually get better on their own, without medical treatment. What are the causes? A URI is caused by a germ (virus). You may catch these germs by: ??? Breathing in droplets from an infected person's cough or sneeze. ??? Touching something that has the germ on it (is contaminated) and then touching your mouth, nose, or eyes. What increases the risk? You are more likely to get a URI if: ??? You are very young or very old. ??? You have close contact with others, such as at work, school, or a health care facility. ??? You smoke. ??? You have long-term (chronic) heart or lung disease. ??? You have a weakened disease-fighting system (immune system). ??? You have nasal allergies or asthma. ??? You have a lot of stress. ??? You have poor nutrition. What are the signs or symptoms? Runny or stuffy (congested) nose. ??? Cough. ??? Sneezing. ??? Sore throat. ??? Headache. ??? Feeling tired (fatigue). ??? Fever. ??? Not wanting to eat as much as usual. ??? Pain in your forehead, behind your eyes, and over your cheekbones (sinus pain). ??? Muscle aches. ??? Redness or irritation of the eyes. ??? Pressure in the ears or face. How is this treated? URIs usually get better on their own within 7?10 days. Medicines cannot cure URIs, but your doctor may recommend certain medicines to help relieve symptoms, such as: ??? Bpur-tmv-zelzudp cold medicines. ??? Medicines to reduce coughing (cough suppressants). Coughing is a type of defense against infection that helps to clear the nose, throat, windpipe, and lungs (respiratory system). Take these medicines only as told by your doctor. ??? Medicines to lower your fever. Follow these instructions at home: Activity ??? Rest as needed. ??? If you have a fever, stay home from work or school until your fever is gone, or until your doctor says you may return to work or school. ? You should stay home until you cannot spread the infection anymore (you are not contagious). ? Your doctor may have you wear a face mask so you have less risk of spreading the infection. Relieving symptoms ??? Rinse your mouth often with salt water. To make salt water, dissolve ??1 tsp (3?6 g) of salt in1 cup (237 mL) of warm water. ??? Use a cool-mist humidifier to add moisture to the air. This can help you breathe more easily. Eating and drinking ??? Drink enough fluid to keep your pee (urine) pale yellow. ??? Eat soups and other clear broths. General instructions ??? Take ylsh-mis-tkyxqwu and prescription medicines only as told by your doctor. ??? Do not smoke or use any products that contain nicotine or tobacco. If you need help quitting, ask your doctor. ??? Avoid being where people are smoking (avoid secondhand smoke). ??? Stay up to date on all your shots (immunizations), and get the flu shot every year. ??? Keep all follow-up visits. How to prevent the spread of infection to others ??? Wash your hands with soap and water for at least 20 seconds. If you cannot use soap and water, use hand administrative technician. ??? Avoid touching your mouth, face, eyes, or nose. ??? Cough or sneeze into a tissue or your sleeve or elbow. Do not cough or sneeze into your hand orinto the air. Contact a doctor if: ??? You are getting worse, not better. ??? You have any of these: ? A fever or chills. ? Brown or red mucus in your nose. ? Yellow or brown fluid (discharge)coming from your nose. ? Pain in your face, especially when you bend forward. ? Swollen neck glands. ? Pain when you swallow. ? White areas in the back of your throat. Get help right away if: ??? You have shortness of breath that gets worse. ??? You have very bad or constant: ? Headache. ? Ear pain. ? Pain in your forehead, behind your eyes, and over your cheekbones (sinus pain). ? Chest pain. ??? You have long-lasting (chronic) lung disease along with any of these: ? Making high-pitched whistling sounds when you breathe, most often when you breathe out (wheezing). ? Long-lasting cough (more than 14 days). ? Coughing up blood. ? A change in your usual mucus. ??? You have a stiff neck. ??? You have changes in your: ? Vision. ? Hearing. ? Thinking. ? Mood. These symptoms may be an emergency. Get help right away. Call 911. ??? Do not wait to see if the symptoms will go away. ??? Do not drive yourself to the hospital. Summary ??? An upper respiratory infection (URI) is caused by a germ (virus). The most common type of URI is often called the common cold. ??? URIs usually get better within 7?10 days. ??? Take quwa-btn-uwodcwc and prescrip (more content not included)...[facility]10-25-2024 Evaluation + Plan noteExtracted from: Title:ED Note Author:Archie GUERRERO, Luis Roa te:03/02/24 Lower respiratory tract infe ction (J22: Unspecified acute lower respiratory infection) Lymphangitis (I89.1: Lymphangitis) Orders: cefdinir, 300 mg = 1 cap(s), Cap, Oral, Once, Stop date 03/02/24 22:07:00 EDT, STAT, Start date 03/02/24 22:07:00 EDT, 03/02/24 22:07:00 EDT cefdinir, 300 mg = 1 cap(s), Oral, q12hr, X 7 day(s), # 14 cap(s), Refills(s) 0, Pharmacy: [facility] #[id number], 175.2, cm, 03/02/24 21:24:00 EDT, Height/Length Dosing, 137.9, kg, 03/02/24 21:24:00 EDT, Weight Dosing methylPREDNISolone, = 1 packet(s), Oral, As Directed, as directed on package labeling, X 6 day(s), # 21 tab(s), Refills(s) 0, Pharmacy: [facility] #[id number], 175.2, cm, 03/02/24 21:24:00 EDT, Height/Length Dosing, 137.9, kg, 03/02/24 21:24:00 EDT, Weight Dosing Future Appointments Appointment Date:03/26/2024 10:00:00 AM Scheduled Provider: Location:[facility] Appointment Type:Urology CALL PAT FT Appointment Date:03/27/2024 10:30:00 AM Scheduled Provider: Location:[facility] Appointment Type:Urology FT Appointment Date:09/25/2024 08:00:00 AM Scheduled Provider: Location:[facility] Appointment Type: Medicare Wellness Subsequent Future Scheduled Tests Laboratory* FSH and LH 05/20/23 * Insulin Free and Total 05/20/23 * TSH With T4fr Reflex 05/20/23 * Beta hCG Quantitative 05/20/23 * Cortisol 05/20/23 * Prolactin Level 05/20/23 [facility] 10-24-2024 NoteMicrobiology PROCEDURE: Strep Screen Culture [R1] SOURCE: Throat BODY SITE: COLLECTED DATE/TIME: 02/28/2024 11:46 EDT RECEIVED DATE/TIME: 02/28/2024 15:14 EDT START DATE/TIME: 02/28/2024 15:14 EDT FREE TEXT SOURCE: Devon Calle PA-C, PA-C, Devon Becker. FINAL REPORTS Final Report [] Verified Date/Time: 03/01/2024 11:16 EDT Streptococcus Group A screen negative Performing Locations R1: This test was performed at: [facility], [address] [place] [address], [id number] , , [facility]uC[facility] RehabilitationComment on above:Performed By: #### [id number] #### [facility] [address] [place] [address] [id number] NoteMicrobiology PROCEDURE: Strep Screen Culture [R1] SOURCE: Throat BODY SITE: COLLECTED DATE/TIME: 02/28/2024 11:46 EDT RECEIVED DATE/TIME: 02/28/2024 15:14 EDT START DATE/TIME: 02/28/2024 15:14 EDT FREE TEXT SOURCE: Devon Calle PA-C, PA-C, Devon Becker. FINAL REPORTS Final Report [] Verified Date/Time: 03/01/2024 11:16 EDT Streptococcus Group A screen negative Performing Locations R1: This test was performed at: [facility], [address] [place] [address], [id number], DxsdtqC[facility] Clinic [facility] Hospital For RehabilitationComment on above:Performed By: #### [id number] ####[facility] [address] [place], [place] [id number] Hospital Discharge instructions Patient Education 02/28/2024 09:53:35 Upper Respiratory Infection, Adult Upper Respiratory Infection, Adult An upper respiratory infection (URI) is a common viral infection of the nose, throat, and upper airpassages that lead to the lungs. The most common type of URI is the common cold. URIs usually get better on their own, without medical treatment. What are the causes? A URI is caused by a virus. You may catch a virus by: Breathing in droplets from an infected person's cough or sneeze. Touching something that has been exposed to the virus (is contaminated) and then touching your mouth, nose, or eyes. What increases the risk? You are more likely to get a URI if: You are very young or very old. You have close contact with others, such as at work, school, or a health care facility. You smoke. You have long-term (chronic) heart or lung disease. You have a weakened disease-fighting system (immune system). You have nasal allergies or asthma. You are experiencing a lot of stress. You have poor nutrition. What are the signs or symptoms? A URI usually involves some of the following symptoms: Runny or stuffy (congested) nose. Cough. Sneezing. Sore throat. Headache. Fatigue. Fever. Loss of appetite. Pain in your forehead, behind your eyes, and over your cheekbones (sinus pain). Muscle aches. Redness or irritation of the eyes. Pressure in the ears or face. How is this diagnosed? This condition may be diagnosed based on your medical history and symptoms, and a physical exam. Your health care provider may use a swab to take a mucus sample from your nose (nasal swab). This sample can be tested to determine what virus is causing the illness. How is this treated? URIs usually get better on their own within 7 10 days. Medicines cannot cure URIs, but your health care provider may recommend certain medicines to help relieve symptoms, such as: Lfpw-ypk-donahhm cold medicines. Cough suppressants. Coughing is a type of defense against infection that helps to clear the respiratory system, so take these medicines only as recommended by your health care provider. Fever-reducing medicines. Follow these instructions at home: Activity Rest as needed. If you have a fever, stay home from work or school until your fever is gone or until your health care provider says your URI cannot spread to other people (is no longer contagious). Your health care provider may have you wear a face mask to prevent your infection from spreading. Relieving symptoms Gargle with a mixture of salt and water 3 4 times a day or as needed. To make salt water, completely dissolve 1 tsp (3 6 g) of salt in 1 cup (237 mL) of warm water. Use a cool-mist humidifier to add moisture to the air. This can help you breathe more easily. Eating and drinking Drink enough fluid to keep your urine pale yellow. Eat soups and other clear broths. General instructions Take ibfr-zyr-fwjjzjo and prescription medicines only as told by your health care provider. These include cold medicines, fever reducers, and cough suppressants. Do not use any products that contain nicotine or tobacco. These products include cigarettes, chewing tobacco, and vaping devices, such as e-cigarettes. If you need help quitting, ask your health careprovider. Stay away from secondhand smoke. Stay up to date on all immunizations, including the yearly (annual) flu vaccine. Keep all follow-up visits. This is important. How to prevent the spread of infection to others URIs can be contagious. To prevent the infection from spreading: Wash your hands with soap and water for at least 20 seconds. If soap and water are not available, use hand administrative technician. Avoid touching your mouth, face, eyes, or nose. Cough or sneeze into a tissue or your sleeve or elbow instead of into your hand or into the air. Contact a health care provider if: You are getting worse instead of better. You have a fever or chills. Your mucus is brown or red. You have yellow or brown discharge coming from your nose. You have pain in your face, especially when you bend forward. You have swollen neck glands. You have pain while swallowing. You have white areas in the back of your throat. Get help right away if: You have shortness of breath that gets worse. You have severe or persistent: ?Headache. ?Ear pain. ?Sinus pain. ?Chest pain. You have chronic lung disease along with any of the following: ?Making high-pitched whistling sounds when you breathe, most often when you breathe out (wheezing). ?Prolonged cough (more than 14 days). ?Coughing up blood. ?A change in your usual mucus. You have a stiff neck. You have changes in your: ?Vision. ?Hearing. ?Thinking. ?Mood. These symptoms may be an emergency. Get help right away. Call 911. Do not wait to see if the symptoms will go away. Do not drive yourself to the hospital. Summary An upper respiratory infection (URI) is a common infection of the nose, throat, and upper air passages that lead to the lungs. A URI is caused by a virus. URIs usually get better on their own within 7 10 days. Medicines cannot cure URIs, but your health care provider may recommend certain medicines to help relieve symptoms. This information is not intended to replace advice given to you by your health care provider. Make sure you discuss any questions you have with your health care provider. Document Revised: 11/25/2021 Document Reviewed: 11/25/2021 [employer] Patient Education 2023 [employer] Follow Up Care 02/28/2024 08:23:01 With:Irasema Love Address: [address] [place] [address], [place] [address]- When: Unknown [facility] 10-22-2024 NotePatient Education Infectious Disease Upper Respiratory Infection, Adult An upper respiratory infection (URI) is a common viral infection of the nose, throat, and upper airpassages that lead to the lungs. The most common type of URI is the common cold. URIs usually get better on their own, without medical treatment. What are the causes? A URI is caused by a virus. You may catch a virus by: ? Breathing in droplets from an infected person's cough or sneeze. ? Touching something that has been exposed to the virus (is contaminated) and then touching your mouth, nose, or eyes. What increases the risk? You are more likely to get a URI if: ? You are very young or very old. ? You have close contact with others, such as at work, school, or a health care facility. ? You smoke. ? You have long-term (chronic) heart or lung disease. ? You have a weakened disease-fighting system (immune system). ? You have nasal allergies or asthma. ? You are experiencing a lot of stress. ? You have poor nutrition. What are the signs or symptoms? A URI usually involves some of the following symptoms: ? Runny or stuffy (congested) nose. ? Cough. ? Sneezing. ? Sore throat. ? Headache. ? Fatigue. ? Fever. ? Loss of appetite. ? Pain in your forehead, behind your eyes, and over your cheekbones (sinus pain). ? Muscle aches. ? Redness or irritation of the eyes. ? Pressure in the ears or face. How is this diagnosed? This condition may be diagnosed based on your medical history and symptoms, and a physical exam. Your health care provider may use a swab to take a mucus sample from your nose (nasal swab). This sample can be tested to determine what virus is causing the illness. How is this treated? URIs usually get better on their own within 7?10 days. Medicines cannot cure URIs, but your health care provider may recommend certain medicines to help relieve symptoms, such as: ? Mdnh-gau-egqyydr cold medicines. ? Cough suppressants. Coughing is a type of defense against infection that helps to clear the respiratory system, so take these medicines only as recommended by your health care provider. ? Fever-reducing medicines. Follow these instructions at home: Activity ? Rest as needed. ? If you have a fever, stay home from work or school until your fever is gone or until your health care provider says your URI cannot spread to other people (is no longer contagious). Your health care provider may have you wear a face mask to prevent your infection from spreading. Relieving symptoms ? Gargle with a mixture of salt and water 3?4 times a day or as needed. To make salt water, completely dissolve ??1 tsp (3?6 g) of salt in 1 cup (237 mL) of warm water. ? Use a cool-mist humidifier to add moisture to the air. This can help you breathe more easily. Eating and drinking ? Drink enough fluid to keep your urine pale yellow. ? Eat soups and other clear broths. General instructions ? Take nkmj-jxn-memebxz and prescription medicines only as told by your health care provider. Theseinclude cold medicines, fever reducers, and cough suppressants. ? Do not use any products that contain nicotine or tobacco. These products include cigarettes, chewing tobacco, and vaping devices, such as e-cigarettes. If you need help quitting, ask your health care provider. ? Stay away from secondhand smoke. ? Stay up to date on all immunizations, including the yearly (annual) flu vaccine. ? Keep all follow-up visits. This is important. How to prevent the spread of infection to others URIs can be contagious. To prevent the infection from spreading: ? Wash your hands with soap and water for at least 20 seconds. If soap and water are not available,use hand administrative technician. ? Avoid touching your mouth, face, eyes, or nose. ? Cough or sneeze into a tissue or your sleeve or elbow instead of into your hand or into the air. Contact a health care provider if: ? You are getting worse instead of better. ? You have a fever or chills. ? Your mucus is brown or red. ? You have yellow or brown discharge coming from your nose. ? You have pain in your face, especially when you bend forward. ? You have swollen neck glands. ? You have pain while swallowing. ? You have white areas in the back of your throat. Get help right away if: ? You have shortness of breath that gets worse. ? You have severe or persistent: ? Headache. ? Ear pain. ? Sinus pain. ? Chest pain. ? You have chronic lung disease along with any of the following: ? Making high-pitched whistling sounds when you breathe, most often when you breathe out (wheezing). ? Prolonged cough (more than 14 days). ? Coughing up blood. ? A change in your usual mucus. ? You have a stiff neck. ? You have changes in your: ? Vision. ? Hearing. ? Thinking. ? Mood. These symptoms may be an (more content not included)...[facility]09-16-2024 Telephone encounter Note* Telephone Encounter - Keyla Gusman NP - 01/23/2024 12:33 PM EDT OARRs reviewed. [id number] Miscellaneous Notes* Telephone Encounter - Keyla Gusman NP - 01/23/2024 12:33 PM EDT OARRs reviewed. Rx sent. documented in this encounterMercy Hospital [id number] History of Present illness Narrative* MIAN Francis - 01/23/2024 10:00 AM EDT Reason for Appointment: Patient ID: Alma Delia Pearl is a 38 y.o. female who presents for [facility] Visit Patient presents today for Annual Exam. MEDICATIONS Current Outpatient Medications Medication Instructions albuterol HFA 90 mcg/act inhaler 2 puffs, Inhalation, Every 6 hours PRN albuterol 2.5 mg, Nebulization, Every 6 hours PRN ascorbic acid (Vitamin C) 100 MG chewable tablet Vitamin C Auvelity 45-105 MG tablet controlled-release 1 tablet, Oral, 2 times daily busPIRone (BUSPAR) 15 mg, Oral, 3 times daily cholecalciferol (Vitamin D-3) 50 MCG (1999 UT) capsule Vitamin D dicyclomine (BENTYL) 20 mg, Oral, As needed divalproex (Depakote) 500 MG EC tablet Take one 500 mg tablet by mouth twice daily for 5 days. Do not crush, chew, or split. Emgality 120 mg, Subcutaneous, Every 30 days famotidine (Pepcid) 40 MG tablet TAKE 1 TABLET BY MOUTH IN THE MORNING AND AT BEDTIME fluocinonide (Lidex) 0.05 % external solution APPLY TOPICALLY TO THE SCALP DAILY NEEDED FOR FLARES fluticasone (Flonase) 50 MCG/ACT nasal spray SHAKE LIQUID AND USE 2 SPRAYS IN EACH NOSTRIL EVERY DAY fluticasone (Flovent HFA) 110 MCG/ACT inhaler 1 puff, Inhalation, 2 times daily hydrOXYzine pamoate (Vistaril) 25 MG capsule TAKE 1 CAPSULE BY MOUTH EVERY 6 HOURS NEEDED FOR ANXIETY magnesium oxide (Mag-Ox) 400 mg tablet Take on 400 mg tablet by mouth daily for 5 days. Mounjaro 7.5 MG/0.5ML solution pen-injector ADMINISTER 7.5 MG UNDER THE SKIN 1 TIME A WEEK Multiple Vitamin (Multivitamin Adult) tablet Every 24 hours naproxen (NAPROSYN) 500 mg, Oral, 2 times daily PRN nystatin (Mycostatin) 346027 UNIT/GM powder Topical, 3 times daily Nystop 035072 UNIT/GM powder APPLY TO AFFECTED AREA UNDER THE BREASTS EVERY MORNING NEEDED omeprazole (PRILOSEC) 40 mg, Oral, 2 times daily before meals ondansetron ODT (Zofran-ODT) 4 MG disintegrating tablet DISSOLVE 1 TABLET ON THE TONGUE EVERY 8 HOURS NEEDED FOR NAUSEA OR VOMITING pregabalin (LYRICA) 25 mg, Oral, 2 times daily Rexulti 3 mg, Oral, Daily Tirzepatide 2.5 MG/0.5ML solution pen-injector 0.5 mL, Injection, Weekly traZODone (DESYREL) 150 mg, Oral, Nightly Ubrogepant (Ubrelvy) 100 MG tablet Take 1 tablet by mouth as needed at the onset of migraine. May repeat dose (1 tablet) once after 2 hours if migraine persists. Take no more than 2 doses in 24 hours. verapamil SR (CALAN SR) 180 mg, Oral, Daily ALLERGIES Allergies Allergen Reactions Codeine Other Egg-Derived Products GI intolerance Erythromycin Unknown Fish-Derived Products Hives Latex Other Lurasidone Other Penicillamine Unknown Penicillins Unknown Phenazopyridine Other Semaglutide GI intolerance Sumatriptan Other and Unknown PROBLEMS Active Ambulatory Problems Diagnosis Date Noted Hemicrania continua 08/29/2023 Migraine without aura and without status migrainosus, not intractable ([facility]/HCC) 08/29/2023 PCOS (polycystic ovarian syndrome) 08/29/2023 Fibromyalgia 08/29/2023 IIH (idiopathic intracranial hypertension) 08/29/2023 Intracranial PAN GREASER disorder 08/29/2023 Obesity, unspecified obesity severity, unspecified obesity type 08/29/2023 Abscess of chest wall 12/01/2023 Resolved Ambulatory Problems Diagnosis Date Noted No Resolved Ambulatory Problems Past Medical History: Diagnosis Date ADHD (attention deficit hyperactivity disorder) ([facility]) 2020 Allergies Amenorrhea Anemia Anxiety Asthma ([facility]) Bipolar disorder (CMS/HCC) Bradycardia Chlamydia Chronic pain Common migraine ([facility]/HCC) COPD (chronic obstructive pulmonary disease) ([facility]) Crohn's disease ([facility]) Depression ([facility]/HCC) Diabetes ([facility]) Easy bruising Factor V Leiden mutation ([facility]) Fatigue Fibromyalgia, primary 2010 GERD (gastroesophageal reflux disease) Headache History of degenerative disc disease History of miscarriage Hyperlipemia ([facility]) Hypersomnia Joint pain Low back pain Lumbar back pain with radiculopathy affecting right lower extremity Lung nodule Migraine ([facility]/HCC) Morbid obesity with BMI of 40.0-44.9, adult ([facility]) Muscle spasm Myalgia Nonsmoker Polycystic ovarian disease Polycystic ovaries Positive urine drug screen Sleep apnea 2020 Snoring Spinal stenosis Trichomoniasis HISTORY PAST MEDICAL HISTORY SOCIAL HISTORY Past Medical History: Diagnosis Date ADHD (attention deficit hyperactivity disorder) ([facility]/HCC) 2020 Allergies Amenorrhea Anemia Anxiety Asthma (CMS/HCC) Bipolar disorder (CMS/HCC) Bradycardia Chlamydia Chronic pain Common migraine (CMS/HCC) COPD (chronic obstructive pulmonary disease) (CMS/HCC) Crohn's disease (CMS/HCC) Depression (CMS/HCC) Diabetes ([facility]/HCC) Easy bruising Factor V Leiden mutation ([facility]) Fatigue Fibromyalgia Fibromyalgia, primary 2010 GERD (gastroesophageal reflux disease) Headache History of degenerative disc disease History of miscarriage 13 total Hyperlipemia (CMS/HCC) Hypersomnia Joint pain Low back pain Lumbar back pain with radiculopathy affecting right lower extremity Lung nodule Migraine (CMS/HCC) Morbid obesity with BMI of 40.0-44.9, adult (CMS/HCC) Muscle spasm Myalgia Nonsmoker PCOS (polycystic ovarian [...] SYSTEMS Review of Systems: Review of Systems All other systems reviewed and are negative. OBJECTIVE Objective: Physical Exam Constitutional: Appearance: Normal [...] nursing note reviewed. Exam conducted with a gas pumping station supervisor present. Vitals: Estimated body mass index is 44.32 kg/m as calculated from the following: Height as of 24: 5' 9 . Weight as of this encounter: 300 lb 1.9 oz. BP: 130/80 Patient's last menstrual period was 12/27/2023. ASSESSMENT & PLAN ICD-10-CM 1. Well woman exam with routine gynecological exam Z01.419 Pap Smear HPV DNA probe, amplified Annual Exam: Patient presents today for an annual exam. Patient states she is doing well and has no complaints. Pap was obtained without difficulty. Orders Placed This Encounter Procedures HPV DNA probe, amplified Follow Up: Patient is to return in one year for annual unless needed otherwise. Documented by Inge Hinkle LPN on behalf of: MIAN Francis documented in this encounterMer[facility] [id number] Telephone encounter Note* Telephone Encounter - Keyla Gusman NP - 01/16/2024 5:27 PM EDT Sent. [facility] [id number] Miscellaneous Notes* Telephone Encounter - Keyla Gusman NP - 01/16/2024 5:27 PM EDT Sent. * Telephone Encounter - Constance Morales MA - 01/16/2024 4:54 PM EDT Pt advised and would like Rx sent to [facility] * Telephone Encounter - Keyla Gusman NP - 01/16/2024 3:26 PM EDT The patient has previously reported efficacy with migraine cocktail (depakote 500mg PO BID with MagOx 400mg daily x 5 days). I don't believe she has taken this since June. If the patient would like to pursue this we can resend. Please confirm with the patient. If symptoms persist or are new and changing I recommend ED evaluation to rule out intracranial process. * Telephone Encounter - Ramin Hanson MA - 01/16/2024 2:45 PM EDT Patient calls stating she has had a migraine for three days. She states she can have a migraine forthree days this is not out of the ordinary. However, this is accompanied by vertigo. She describes this as the room spinning if she walks or stands up. She is experiencing nausea no vomiting. She didtake zofran and anai. She did try meclizine yesterday but this just made her tired. She is wondering if she should make an appointment, go to the ER or if something can be called in for her. Pleaseadvise. documented in this encounterMercy Hospital [id number] Telephone encounter Note* Telephone Encounter - Constance Morales MA - 01/16/2024 4:54 PM EDT Pt advised and would like Rx sent to [facility] in [place] [facility] [id number] Telephone encounter Note* Telephone Encounter - Keyla Gusman NP - 01/16/2024 3:26 PM EDT The patient has previously reported efficacy with migraine cocktail (depakote 500mg PO BID with MagOx 400mg daily x 5 days). I don't believe she has taken this since June. If the patient would like to pursue this we can resend. Please confirm with the patient. If symptoms persist or are new and changing I recommend ED evaluation to rule out intracranial process. [facility] [id number] Telephone encounter Note* Telephone Encounter - Ramin Hanson MA - 01/16/2024 2:45 PM EDT Patient calls stating she has had a migraine for three days. She states she can have a migraine forthree days this is not out of the ordinary. However, this is accompanied by vertigo. She describes this as the room spinning if she walks or stands up. She is experiencing nausea no vomiting. She didtake zofran and anai. She did try meclizine yesterday but this just made her tired. She is wondering if she should make an appointment, go to the ER or if something can be called in for her. Pleaseadvise. [facility] [id number] Hospital Discharge instructions Patient Education 01/13/2024 11:10:44 Overactive Bladder, [...] You may also have very sensitive muscles thatmake your bladder squeeze too soon. This condition [...] your health care provider. General instructions Take rqks-ean-qqgbkue and prescription medicines only as told by [...] provider. Document Revised: 01/12/2021 Document Reviewed: 01/12/2021 [employer] Patient Education 2023 [employer]. Follow Up Care 11/28/2023 10:10:26 With:[facility] [place] Address: [address] [place] [address] Business (1) When: Unknown Comments:our er tech will be contacting you for follow-up [facility] 09-06-2024 NotePatient Education Obstetrics and Gynecology Overactive Bladder, Adult [...] You may also have very sensitive muscles thatmake your bladder squeeze too soon. This condition [...] as stroke, dementia, Parkinson's disease, or multiple sclerosis(MS). ? Eat or drink alcohol, spicy food, [...] health care provider. General instructions ? Take hphl-qog-zcimadr and prescription medicines only as told by [...] help your health care (more content not included)...[facility]08-26-2024 History of Present illness Narrative* Keyla Gusman NP - 01/02/2024 4:20 PM EDT Images from the original note were not included. Chief Complaint Patient presents with Migraine IIH Subjective Alma Delia Pearl is a 38 y.o. female. The patient presents today for follow up to headaches. She is taking verapamil ER 180 mg and has continued Emgality which which have been very helpful. Denies recent headaches. Denies recent use of Ubrelvy. Migraines are typically right sided with with accompanying light sensitivity and nausea. Migraines are not associated with vomiting, weakness, or paresthesias. Admits sleep helps. She denies recent visits to ophthalmology, admits upcoming appointment. She denies any new concerns today. Review of Systems Constitutional: Negative for appetite change, fatigue and fever. Respiratory: Negative for cough, shortness of breath and wheezing. Cardiovascular: Negative for chest pain, palpitations and leg swelling. Gastrointestinal: Negative for abdominal pain, constipation, diarrhea, nausea and vomiting. Musculoskeletal: Negative for arthralgias, gait problem and myalgias. Neurological: Positive for headaches. Negative for dizziness, tremors, seizures, weakness and numbness. Past Medical History: Diagnosis Date ADHD (attention deficit hyperactivity disorder) (CMS/HCC) 2020 Allergies Amenorrhea Anemia Anxiety Asthma (CMS/HCC) Bipolar disorder (CMS/HCC) Bradycardia Chlamydia Chronic pain Common migraine (CMS/HCC) COPD (chronic obstructive pulmonary disease) (CMS/HCC) Crohn's disease (CMS/HCC) Depression (CMS/HCC) Diabetes (CMS/HCC) Easy bruising Factor V Leiden mutation (CMS/HCC) Fatigue Fibromyalgia Fibromyalgia, primary 2009 GERD (gastroesophageal reflux disease) Headache History of degenerative disc disease History of miscarriage 13 total Hyperlipemia (CMS/HCC) Hypersomnia Joint pain Low back pain Lumbar back pain with radiculopathy affecting right lower extremity Lung nodule Migraine (CMS/HCC) Morbid obesity with BMI of 40.0-44.9, adult (CMS/HCC) Muscle spasm Myalgia Nonsmoker PCOS (polycystic ovarian syndrome) Polycystic ovarian disease Polycystic ovaries Positive urine drug screen Sleep apnea 2020 Snoring Spinal stenosis Trichomoniasis Past Surgical History: Procedure Laterality Date BACK SURGERY back decompression surgery lumbar COLONOSCOPY x2 2011, 2018 EGD 05/2016 and colonoscopy EGD 07/2014 and colonoscopy LAPAROSCOPY DIAGNOSTIC / BIOPSY / ASPIRATION / LYSIS x3 TONSILLECTOMY Family History Problem Relation Name Age of Onset Bipolar disorder Mother Rosetta Hepatitis Mother Rosetta Kidney disease Mother Rosetta Heart disease Mother Rosetta Cancer Mother Rosetta Depression Mother Rosetta Fibromyalgia Mother Rosetta Bipolar disorder Sister Ynes Depression Sister Ynes Cervical cancer Maternal Grandmother Lung cancer Maternal Grandmother Kidney disease Maternal Grandmother Anxiety disorder Mother's Sister Rosetta Social History Tobacco Use Smoking status: Never Smokeless tobacco: Never Substance Use Topics Alcohol use: Not Currently Comment: caffeine: 1-2 cups per day Allergies: Codeine, Egg-derived products, Erythromycin, Fish-derived products, Latex, Lurasidone, Penicillamine, Penicillins, Phenazopyridine, Semaglutide, and Sumatriptan Vitals: 01/02/24 1610 BP: 134/78 Pulse: 81 Body mass index is 44.6 kg/m . weight: 302 lb Neurologic exam: Mental status: Obese, in no acute distress. Affect is flat. Grossly oriented to person, place and time. Recent andremote memory are intact. Speech is clear and fluent without aphasia. Attention and concentration are normal. Fund of knowledge is appropriate for level of education. Cranial nerves: CN II: Visual acuity is normal. Visual jamil full to confrontation. CN III, IV, : Pupils are equal, round and reactive to light. Extraocular movements intact. No ptosis present. CN V: Facial sensation is normal. CN VII: Full and symmetric facial movement. CN VIII: Hearing is intact. CN IX and X: Palate elevates symmetrically. CN XI: Shoulder shrug is normal bilaterally. CN XII: Tongue is midline without atrophy or fasciculation. Motor: RUE strength deltoid , biceps , triceps , wrist extensors , wrist flexor , and real estate assistant strength 5/5. LUE strength deltoid , biceps , triceps , wrist extensors , wrist flexor , and real estate assistant strength 5/5. RLE strength iliopsoas, quadriceps, tibialis anterior, plantar flexion, and dorsiflexion strength 5/5. LLE strength iliopsoas, quadriceps, tibialis anterior, plantar flexion, and dorsiflexion strength 5/5. Tone and bulk are normal. Sensory: Sensation is intact to light touch throughout distal extremities. Reflexes: RUE biceps reflex 2+ , brachioradialis reflex 2+. LUE biceps reflex 2+ , brachioradialis reflex 2+. RLE Knee reflex 2+. LLE Knee reflex 2+. Negative Cortez's sign. Coordination: Fizmzt-if-ecdh testing normal. Rapid alternating movements are normal. Gait: Normal. Review and summary of old records: Lumbar puncture on 12/04/20: Opening pressure of 25 MRI of the brain with and without contrast from 10/28/20: No acute intracranial process. No suspicious enhancement. A few punctate foci of increased T2 and flair signal are noted in the supratentorialwhite matter which is a nonspecific finding, associated with headaches or minimal chronic microvascular ischemic disease versus within normal limits for age. Assessment/Plan Diagnoses and all orders for this visit: Migraine without aura and without status migrainosus, not intractable (CMS/HCC) The patient reports a history of predominantly right-sided headaches which are seemingly most consistent with migraine. They are accompanied by photophobia and phonophobia and can be triggered by fluorescent lights and certain odors. Would also consider hemicrania continua (indomethacin was highly effective for treatment in the past but not tolerated due to GI side effects). Topiramate, sumatriptan (significant side effects with this), Fioricet, and Ajovy were ineffective or not tolerated previously. The patient's headaches are very well controlled on the current doses of verapamil ER and Emgality. PLAN: - Continue verapamil ER 180 mg by mouth once a day. Side effects reviewed - Continue Emgality 120 mg subcutaneous once every 30 days (could provide benefit for migraine prevention and possible trigeminal autonomic cephalgias) - Ok for sparing use of zofran for migraine associated nausea. - Migraine cocktail (depakote 500 mg PO BID with Mag Ox 400 mg daily x 5 days) has been effective for refractory breakthrough headaches in the past. This is not indicated currently - Continue Ubrelvy 100 mg by mouth as needed for migraine . Proper use discussed - Could consider cambia 50 mg or Nurtec in the future (she tried this previously but only once) if needed - Adequate hydration, sleep hygiene, CPAP use while asleep, and regular physical activity encouraged Hemicrania continua Right-sided headaches as described above. PLAN: - See above IIH (idiopathic intracranial hypertension) The patient has mild intracranial hypertension with opening pressure of 25 cm CSF on lumbar puncture (12/04/20). She previously took minocycline. Acetazolamide and topiramate were not tolerated in thepast. No significant concerns for intracranial hypertension at this time (the patient denies blurry/worsening vision or increased head pain upon coughing, sneezing, crying, leaning forward, or layingdown). PLAN: - I discussed the importance of serial eye exams with the patient to assess for papilledema and help prevent vision loss. She verbalizes understanding. The patient is established with [facility] and reportedly is scheduled in the next month. - Weight reduction encouraged Obesity, unspecified obesity severity, unspecified obesity type PLAN: - Weight reduction encouraged - Now following with endocrinology Other chronic pain Widespread bodily pains not confined to joints or muscles. Strongest consideration is for chronic pain syndrome/fibromyalgia. Lyrica has provided benefit for her symptoms. PLAN: - Continue Lyrica 25 mg by mouth twice a day. Side effects reviewed - Regular physical activity encouraged - There was previous mention of workup for bariatric surgery. Follow up with the ordering provider as recommended. - I would avoid other medication with serotonergic effects given her current prescriptions in this class Follow up in 3-4 months or sooner if symptoms worsen, fail to improve, or should a new neurologicalconcern arise. Pt has been fully educated on their diagnosis, treatment options, follow up plan, and return instructions documented in [facility] encounterMer[facility] [id number] Hospital Discharge instructions Patient Education 12/21/2023 15:44:30 Post Op [...] Follow these instructions at home: Medicines Take nlur-sdw-trequan and prescription medicines only as told by [...] and water are not available, use hand administrative technician. ?Change your dressing as told by your [...] your health care provider tells you to dothat. Keep the dressing dry until your health [...] your health care provider approves. Ask your healthcare provider if you may take showers. You [...] your cyst was removed. Take or apply mpxr-kdi-ykznvsc and prescription medicines only as told by your health care provider. Follow instructions from your health care provider about how to take care of your incision. This information is not intended to replace advice given to you by your health care provider. Make sure you discuss any questions you have with your health care provider. Document Revised: 07/30/2020 Document Reviewed: 07/30/2020 [employer] Patient Education 2022 [employer]. Follow Up Care 12/09/2023 09:26:18 With:Daron Hernandez Address: [facility], [address] [address] [phone] Business (1) When: Unknown Comments:Appointment has already been scheduled [facility] 07-23-2024 Hospital Discharge instructions Patient Education 11/29/2023 20:59:57 Cellulitis, Adult, Tmym-gm-Qdpp Cellulitis, Adult Cellulitis is a skin infection. [...] Follow these instructions at home: Medicines Take fwgg-buc-wildojk and prescription medicines only as told by [...] provider. Document Revised: 02/04/2022 Document Reviewed: 02/04/2022 [employer] Patient Education 2022 [employer]. Follow Up Care 11/29/2023 20:02:37 With:Irasema Zacarias Address: [address] [place] [address] [place] [address]- Business (1) When:12/02/2023 20:41:42 Comments:Stop the clindamycin and start the Bactrim and Keflex. He can use naproxen every 12 hours as neededfor pain in addition to pain medicine impression prescribed last night. Please follow-up with your primary care doctor for further evaluation management. Please return to the ED for any new or worsening symptoms. [facility]07-23-2024 NoteED Patient Education Note Infectious Disease Cellulitis, Adult [...] these instructions at home: Medicines ? Take lkxl-fkz-dkqavkj and prescription medicines only as told by your doctor. ? If you were prescribed an antibiotic medicine, take it as told by your doctor. Do not stop takingit even if you start to feel better. [...] provider. Document Revised: 02/04/2022 Document Reviewed: 02/04/2022 [employer] Patient Education ? 2022 [employer].[facility] 11-29-2023 Evaluation + Plan noteExtracted from: Title:ED Note Author:Celena Dias DO Date :11/29/23 Cellulitis of left breast (N 61.0: Mastitis without abscess) Orders: cephalexin, 500 mg = 1 cap(s), Oral, TID, X 10 day(s), # 30 cap(s), Refills(s) 0, Pharmacy: [facility] #[id number], 175, cm, 11/29/23 20:31:00 EDT, Height/Length Dosing, [...] pain, # 20 tab(s), Refills(s) 0, Pharmacy: [facility] #[id number], 175, cm, 11/29/23 20:31:00 EDT, Height/Length Dosing, 139, kg, 11/29/23 20:31:00 EDT, Weight Dosing sulfamethoxazole-trimethoprim, 1 tab(s), Oral, BID, 20 tab(s), Refill(s) 0, [facility] #[id number], 175, cm, 11/29/23 20:31:00 EDT, Height/Length Dosing, 139, kg, 11/29/23 20:31:00 EDT, Weight Dosing sulfamethoxazole-trimethoprim, 1 tab(s), Tab, Oral, Once, Stop date 11/29/23 20:39:00 EDT, STAT, Start date 11/29/23 20:39:00 EDT Future Appointments Appointment Date:12/12/2023 03:20:00 PM Scheduled Provider:Daron Hernandez MD Location:[facility] Appointment Type:GS New 30 Appointment Date:01/13/2024 10:00:00 AM Scheduled Provider:KYUNG PAUL PA-C Location:[facility] Appointment Type:URO New Patient Appointment Date:09/25/2024 08:00:00 AM Scheduled Provider: Location:[facility] Appointment Type:FM Medicare Wellness Subsequent Future Scheduled Tests Laboratory* HgbA1c 12/21/22 * FSH and LH 05/20/23 * Insulin Free and Total 05/20/23 * TSH With T4fr Reflex 05/20/23 * TSH With T4fr Reflex 12/21/22 * Beta hCG Quantitative 05/20/23 * Cortisol 05/20/23 * Lipid Panel 12/21/22 * Prolactin Level 05/20/23 [facility]07-22-2024 Hospital Discharge instructions Patient Education 11/28/2023 21:00:36 [...] Follow these instructions at home: Medicines Take djmy-yro-vrbzhfo and prescription medicines only as told by [...] soap and water arenot available, use hand administrative technician. Check your abscess every day for signs [...] provider. Document Revised: 07/29/2022 Document Reviewed: 02/01/2022 [employer] Patient Education 2022 [employer]. 11/28/2023 21:00:36 Cellulitis, Adult, Bayl-ef-Hbzf Cellulitis, Adult Cellulitis is a skin infection. [...] Follow these instructions at home: Medicines Take dvmn-xou-tsnqxnd and prescription medicines only as told by [...] provider. Document Revised: 02/04/2022 Document Reviewed: 02/04/2022 [employer] Patient Education 2022 [employer]. Follow Up Care 11/28/2023 19:05:50 With:Daron Hernandez Address:Unknown When:12/01/2023 20:36:49 Comments:Call Dr for diagnosis based follow up With:Urban PLUNKETT Address: [address], [address] [place] [address]- Business (1) When:12/01/2023 20:36:36 Comments:Call Dr for diagnosis based follow up With:Irasema Zacarias Address: [address], [place] [address]- Business (1) When:12/01/2023 20:36:33 Comments:Call Dr for diagnosis based follow up [facility]07-22-2024 NoteED Patient Education Note Infectious Disease Skin [...] these instructions at home: Medicines ? Take cvjz-cwr-umiotxk and prescription medicines only as told by [...] and water are not available, use hand administrative technician. ? Check your abscess every day for [...] you pat (more content not included)...[facility]06-25-2024 NoteHNO ID: [id number] Author: JOHN PIERCE PSYD Service: ? Author Type: Psychologist Type: Progress Notes Filed: 11/03/2023 11:33 Note Text: [facility]HAVIORAL HE[facility] EVALUATION DATE OF SERVICE: 11/01/2023 TIME OF SERVICE: 1:00PM to 2:19PM [facility]ST C[facility]: [facility] CPT CODE: - 06205 Brief Emotional/Behavioral Assessment with scoring/documentation - [id number] Virtual Psych Diagnostic Eval BILLING CODE: ENDO PAM Pierce BMI Surgical Pathway Visit type: Psychology Visit SESSION #: 1 The patient signed the Informed Consent for Psychological Evaluation AND Care Form via [facility] (see consent dated 10/27/23), and the [facility] care insurance benefits, fees for service, emergency procedures, and the limits of confidentiality that may pertain with any given case were discussed with the patient. The patient was given a copy of the consent form via [employer]. I have communicated my name and active licensure. The patient's identity and physical location were verified at the time of this visit. Either the patient or their legal patient relations representative has been informed of the [...] technology to benefit from virtual format. Platform: [employer] Address of Patient During Time of Virtual Visit: Pt home at [address] [facility] [address] [facility] [address] Emergency Contact: [facility] at [address] [place], [place] [id number] IDENTIFYING INFORMATION Ms. Alma Delia Pearl is [...] Complication, Without Long-Term Current Use of Insulin ([facility]) Pt self-reported medication: Spinal Stenosis/DDD Past surgeries? Yes PAST SURGICAL HISTORY Procedure Laterality Date LAPS ABD PRTMANDOMENTUM DX W/WO SPEC BR/WA SPX 03/[address] Dae Reynolds. endometriosis, lasered. Stage??, PCOS ovaries LAPS ABD PRTMANDOMENTUM DX W/WO SPEC BR/WA SPX 08/05/2008 Dr. Natalie Yanez. Operation: Diagnostic laparoscopy (hx. chronic pelvic pain. PAST SURGICAL HISTORY OF 05/12 laser surgery endometrosis TONSILLECTOMY PRIMARY/SECONDARY Tonsillectomy History of psychological complications pos (more content not included)... [facility]06-19-2024 Telephone encounter Note* Telephone Encounter - Mayco [...] PSS NOTE: Patient needs scheduled appointment No [facility]06-19-2024 Miscellaneous Notes* Telephone Encounter - Mayco Fagan [...] needs scheduled appointment No [facility] Hospital Discharge instructions Follow Up Care 09/28/2023 11:29:50 With:Irasema Love Address: [address] [place] [address]- When:Within 1 Year(s) Comments:annual wellness [facility] 05-21-2024 Telephone encounter Note* [...] PSS NOTE: Patient needs scheduled appointment No [facility]05-21-2024 Miscellaneous Notes* Telephone Encounter - Peyton Thomas [...] needs scheduled appointment No documented [facility] Hospital Discharge instructions Patient Education 09/22/2023 10:39:53 [...] Carrots. Green beans. Tomatoes. Peppers. Onions. Cucumbers. [place] sprouts. Grains Whole grains, such as whole-wheat [...] meet with a certified diabetes care and provider education specialist? Do I need to meet with a dietitian? What number can I call if I have questions? When are the best times to check my blood glucose? Where to find more information: [place] Diabetes Association: diabetes.org Academy of Nutrition and Dietetics: eatright.org National [place] of Diabetes and Digestive and Kidney Diseases: [...] provider. Document Revised: 11/26/2020 Document Reviewed: 11/26/2020 [employer] Patient Education 2022 [employer]. 09/22/2023 10:39:52 Exercising to Lose Weight Exercising [...] your health care provider or diet and aerotriangulation specialist (dietitian). This may include: ?Eating fewer [...] provider. Document Revised: 06/21/2021 Document Reviewed: 06/21/2021 [employer] Patient Education 2022 [employer] 09/22/2023 10:39:50 BMI for Adults BMI for [...] numbers. This can be done either in [place] ([place].S[place] or metric measurements. Note that charts and online BMI calculators are available to help you find your BMI quickly and easily without having to do these calculations yourself. To calculate your BMI in [place] ([place] measurements: 1.Measure your weight in pounds [...] Centers for Disease Control and Prevention: www.cdc.gov [place] Heart Association: www.heart.org National Heart, Lung, and Blood [place]: www.nhlbi.nih.gov Summary Body mass index (BMI) is a number that is calculated from a person's weight and height. BMI may help estimate how much of a person's weight is composed of fat. BMI can help identify thosewho may be at higher risk for certain medical problems. BMI can be measured using Nigerian measurements or metric measurements. BMI charts are used to identify whether you are underweight, normal weight, overweight, or obese. This information is not intended to replace advice given to you by your health care provider. Make sure you discuss any questions you have with your health care provider. Document Revised: 01/16/2020 Document Reviewed: 11/23/2019 [employer] Patient Education 2022 [employer]. [facility] 03-18-2024 Hospital Discharge instructions Patient Education 07/25/2023 21:40:17 Nausea, Adult, Kzrk-kp-Diee Nausea, Adult Nausea is feeling like you [...] fruit juice). ?Low-calorie sports drinks. Eat bland, fxyb-av-xwocgc foods in small amounts as you are able, such as: ?Bananas. ?Applesauce. ?Rice. ?Low-fat (lean) meats. ?Selden. ?Crackers. Avoid drinking fluids that have a lot of sugar or caffeine in them. This includes energy drinks, sports drinks, and soda. Avoid alcohol. Avoid spicy or fatty foods. General instructions Take mtay-wrh-dukutyc and prescription medicines only as told by [...] cannot use soap and water, use hand administrative technician. Make sure that everyone in your home [...] drink what your doctor tells you. Take iznj-qkv-ipkefbf and prescription medicines only as told by your doctor. Contact a doctor right away if your symptoms get worse or you have new symptoms. Keep all follow-up visits. This information is not intended to replace advice given to you by your health care provider. Make sure you discuss any questions you have with your health care provider. Document Revised: 10/30/2021 Document Reviewed: 10/30/2021 [employer] Patient Education 2022 [employer]. 07/25/2023 21:40:17 Rectal Bleeding Rectal Bleeding Rectal [...] help reduce bleeding and discomfort: Medicines Take jnec-zyh-dkykqlz and prescription medicines only as told by [...] to keep your urine pale yellow. Take ghrb-xqb-guxookk or prescription medicines. Eat foods that are [...] provider. Document Revised: 03/26/2020 Document Reviewed: 03/26/2020 [employer] Patient Education 2022 [employer]. Follow Up Care 07/25/2023 18:18:25 With:Marilia Brown Address: [address], [address] [facility] [address] [place] [address]- [phone] Business (1) When:07/28/2023 21:13:49 Comments:Call Dr for diagnosis based follow up With:Irasema Zacarias Address: [address] [place] [address]- Business (1) When:Within 3 Day(s) [facility]02-23-2024 Hospital Discharge instructions Patient Education 07/01/2023 12:56:32 [...] saline washes). ?Medicines that treat allergies (antihistamines). ?Ekdj-gtx-vwqzabj pain relievers. If caused by bacteria, your [...] at home: Medicines Take, use, or apply zkdb-zta-movbpak and prescription medicines only as told by [...] and water are not available, use hand administrative technician. Do not smoke. Avoid being around people [...] provider. Document Revised: 03/30/2022 Document Reviewed: 03/30/2022 [employer] Patient Education 2022 [employer]. [facility] 01-12-2024 Hospital Discharge instructions Patient Education 05/20/2023 10:36:01 [...] makes. Follow these instructions at home: Take ufwo-uvx-glarxgw and prescription medicines only as told by [...] provider. Document Revised: 10/02/2020 Document Reviewed: 10/02/2020 [employer] Patient Education 2022 [employer]. 05/20/2023 10:35:56 Dysmenorrhea Dysmenorrhea Dysmenorrhea refers to [...] to help relieve pain. General instructions Take pvir-fti-ewnjmzh and prescription medicines only as told by [...] provider. Document Revised: 12/10/2020 Document Reviewed: 12/10/2020 [employer] Patient Education 2022 [employer]. 05/20/2023 10:35:53 Galactorrhea Galactorrhea Galactorrhea is an [...] rubbing on your nipples. General instructions Take qxfg-cko-zjpqlye and prescription medicines only as told by [...] provider. Document Revised: 02/23/2021 Document Reviewed: 02/23/2021 Else[employer] Patient Education 2022 [employer]. [facility] 11-29-2023 Hospital Discharge instructions Patient Education 04/06/2023 16:15:24 Nausea and Vomiting, Adult, Gnxr-pp-Ltcd Nausea and Vomiting, Adult Nausea is feeling [...] fruit juice). ?Low-calorie sports drinks. Eat bland, rong-be-kcgvfr foods in small amounts as you are able, such as: ?Bananas. ?Applesauce. ?Rice. ?Low-fat (lean) meats. ?Selden. ?Crackers. Avoid drinking fluids that have a lot of sugar or caffeine in them. This includes energy drinks, sports drinks, and soda. Avoid alcohol. Avoid spicy or fatty foods. General instructions Take mgev-pxm-ixxhjgg and prescription medicines only as told by your doctor. Drink enough fluid to keep your pee (urine) pale yellow. Wash your hands often with soap and water for at least 20 seconds. If you cannot use soap and water, use hand administrative technician. Make sure that everyone in your home [...] your doctor about eating and drinking. Take qqrg-iyh-lwaapik and prescription medicines only as told by your doctor. Contact your doctor if your symptoms get worse or you have new symptoms. Keep all follow-up visits. This information is not intended to replace advice given to you by your health care provider. Make sure you discuss any questions you have with your health care provider. Document Revised: 10/30/2021 Document Reviewed: 10/30/2021 [employer] Patient Education 2022 [employer]. Follow Up Care 04/06/2023 13:50:03 With:Silvia YOUNG Address: [address] [place], [place] [address] [place] [phone]- Business (1) When:04/09/2023 15:52:06 Comments:Follow-up with your primary care provider in 3 to 5 days. If symptoms worsen, do not improve, or new symptoms arise please report back to emergency department for further evaluation. [facility]11-29-2023 Evaluation + Plan noteExtracted from: Title:ED Note Author:Archie GUERRERO, Luis Roa te:04/06/23 Nausea and vomiting (R11.2: Nausea with vomiting, unspecified) Orders: ondansetron, 4 mg = 2 mL, Injection, IV Push, Once, Stop date 04/06/23 14:00:00 EST, STAT, Start date 04/06/23 14:00:00 EST, 04/06/23 14:00:00 EST ondansetron, 4 mg = 1 tab(s), Oral, q8hr, PRN Nausea/Vomiting, # 30 tab(s), Refills(s) 0, Pharmacy: [facility] #[id number], 173, cm, 04/06/23 13:57:00 EST, Height/Length Dosing, 134.1, kg, 04/06/23 13:57:00 EST, Weight Dosing promethazine, 12.5 mg = 1 supp, Rectal, q4hr, PRN Nausea/Vomiting, # 6 EA, Refills(s) 0, Pharmacy: [facility] #[id number], 173, cm, 04/06/23 13:57:00 EST, Height/Length Dosing, [...] Appointment Date:06/24/2023 10:20:00 AM Scheduled Provider:Irasema Love Location:[facility] Appointment Type: Open Appointment Date:09/22/2023 09:30:00 AM Scheduled Provider: Location:[facility] Appointment Type: Medicare Wellness Subsequent Future Scheduled Tests Laboratory* HgbA1c 12/21/22 * Microalbumin Level Urine 12/21/22 * TSH With T4fr Reflex 12/21/22 * Lipid Panel 12/21/22 [facility]-11-2023 Hospital Discharge instructions Patient Education 03/19/2023 16:51:40 [...] Follow these instructions at home: Medicines Take hyog-rvx-wrsgjrw and prescription medicines only as told by your health care provider. Ask your health care provider if the medicine prescribed to you: ?Requires you to avoid driving or using heavy machinery. ?Can cause constipation. You may need to take these actions to prevent or treat constipation: ?Drink enough fluid to keep your urine pale yellow. ?Take fqad-get-yrfzecf or prescription medicines. ?Eat foods that are [...] provider. Document Revised: 08/17/2019 Document Reviewed: 06/07/2019 [employer] Patient Education 2022 [employer]. Follow Up Care 03/19/2023 13:23:56 With:David Eubanks Address: [address] [place] [address] Business (1) When:03/22/2023 16:51:25 Comments:Call the office [...] fever, or any new or worsening symptoms. [facility]11-11-2023 Evaluation + Plan noteExtracted from: Title:ED Note [...] Appointment Date:06/24/2023 10:20:00 AM Scheduled Provider:Irasema Love Location:[facility] Appointment Type: Open Appointment Date:09/22/2023 09:30:00 AM Scheduled Provider: Location:[facility] Appointment Type:FM Medicare Wellness Subsequent Future Scheduled Tests Laboratory* HgbA1c 12/21/22 * Microalbumin Level Urine 12/21/22 * TSH With T4fr Reflex 12/21/22 * Lipid Panel 12/21/22 [facility]11-06-2023 Hospital Discharge instructions Patient Education 03/14/2023 21:01:40 Asthma, Adult, Mtdi-du-Avbf Asthma, Adult Asthma is a condition that [...] (dander). Cockroaches. Pollen. Air pollution (like household lactation specialist, wood smoke, smog, or chemical odors). What [...] of polyester or cotton. General instructions Take cron-xbm-iyyaaht and prescription medicines only as told by [...] from clear or white to yellow, green, mullins, or is bloody. You have problems from [...] pollute the air. These may include household lactation specialist, wood smoke, smog, or chemical odors. This information is not intended to replace advice given to you by your health care provider. Make sure you discuss any questions you have with your health care provider. Document Revised: 02/01/2022 Document Reviewed: 02/01/2022 [employer] Patient Education 2022 [employer]. 03/14/2023 21:01:38 Cough, Adult, Rdjs-xc-Jufc Cough, Adult A cough helps to clear [...] Follow these instructions at home: Medicines Take jjtb-tlt-sauojuz and prescription medicines only as told by [...] Many things can cause a cough. Take oyfl-cwm-hzrthaf and prescription medicines only as told by [...] provider. Document Revised: 06/13/2020 Document Reviewed: 05/14/2019 [facility] Patient Education 2022 [employer]. [facility] [place] 08-13-2023 Hospital Discharge instructions Patient Education 12/19/2022 [...] provider. Document Revised: 09/14/2021 Document Reviewed: 09/14/2021 [facility] Patient Education 2022 [employer]. 12/19/2022 14:41:01 Diabetes Mellitus and Nutrition, Adult [...] Carrots. Green beans. Tomatoes. Peppers. Onions. Cucumbers. [place] sprouts. Grains Whole grains, such as whole-wheat [...] meet with a certified diabetes care and provider education specialist? Do I need to meet with a dietitian? What number can I call if I have questions? When are the best times to check my blood glucose? Where to find more information: [place] Diabetes Association: diabetes.org Academy of Nutrition and Dietetics: eatright.org National [place] of Diabetes and Digestive and Kidney Diseases: [...] provider. Document Revised: 11/26/2020 Document Reviewed: 11/26/2020 [facility] Patient Education 2022 [employer]. 12/19/2022 14:41:01 Diabetes Mellitus and Exercise Diabetes [...] activity plan? Your health care provider or board certified behavioral analyst can help you make a plan for [...] (heat stroke). Where to find more information [place] Diabetes Association: www.diabetes.org Summary Exercising regularly is important for overall health, especially for people who have diabetes mellitus. Exercising has many health benefits. It increases muscle strength and bone density and reduces bodyfat and stress. It also lowers and controls blood glucose. Your health care provider or board certified behavioral analyst can help you make an activity plan [...] provider. Document Revised: 01/21/2020 Document Reviewed: 01/21/2020 [facility] Patient Education 2022 [employer]. 12/19/2022 14:41:00 Blood Glucose Monitoring, Adult Blood [...] or if there is an carlo for [place]. Most glucose meters store a record of [...] mayhave. Where to find more information The [place] Diabetes Association: www.diabetes.org The Association of Diabetes [...] provider. Document Revised: 01/21/2021 Document Reviewed: 01/21/2021 [facility] Patient Education 2022 [employer]. Follow Up Care 09/23/2022 10:05:20 With:Irasema Love Address: [facility] [address], [address] [place] [id number]- When:Within 6 Month(s) Comments:f/u YAMINI Torres [facility] 06-15-2023 Hospital Discharge instructions [...] who specializes in diseases of the digestive tract(asp net software developer). How is this treated? There is no [...] Follow these instructions at home: Medicines Take srie-ubv-tvdxsna and prescription medicines only as told by [...] provider. Document Revised: 10/29/2021 Document Reviewed: 10/29/2021 [facility] Patient Education 2022 [employer]. 10/21/2022 18:49:28 Food Choices to Help Relieve [...] health care provider. Replacing nutrients Eat bland, ohma-lq-fadvqw foods in small amounts as you are [...] provider. Document Revised: 06/10/2020 Document Reviewed: 06/10/2020 [facility] Patient Education 2022 [employer]. 10/21/2022 18:49:28 Diarrhea, Adult, Wndf-vu-Zqfc Diarrhea, Adult Diarrhea is when you pass [...] sugar or caffeine in them. Eat bland, dvxh-tk-kdqllf foods in small amounts as you are able. These foods include: ?Bananas. ?Applesauce. ?Rice. ?Low-fat (lean) meats. ?[place]den. ?Crackers. Avoid alcohol. Avoid spicy or fatty foods. Medicines Take sjge-ivx-tkphakv and prescription medicines only as told by your doctor. If you were prescribed an antibiotic medicine, take it as told by your doctor. Do not stop using the antibiotic even if you start to feel better. General instructions Wash your hands often using soap and water. If soap and water are not available, use a hand administrative technician. Others in your home should wash their [...] sold at pharmacies and stores. Eat bland, uovk-qb-uxyron foods in small amounts as you are [...] provider. Document Revised: 11/04/2021 Document Reviewed: 11/04/2021 [facility] Patient Education 2022 [employer]. Follow Up Care 10/21/2022 15:51:19 With:SAUD BLUM Address: [address] [place] [address] Business (1) When:Within 3 Day(s) [facility]06-15-2023 Evaluation + Plan noteExtracted from: Title:ED Note [...] Appointment Date:12/21/2022 01:00:00 PM Scheduled Provider:Irasema Love Location:[facility] Appointment Type: Open Appointment Date:09/22/2023 09:30:00 AM Scheduled Provider: Location:[facility] Appointment Type:FM Medicare Wellness Subsequent Future Scheduled Tests Laboratory* TIBC Calculated 12/29/21 * CBC w/ Auto Diff 12/29/21 * Ferritin 12/29/21 * Iron Level 12/29/21 * Reticulocyte Count 12/29/21 [facility]05-08-2023 Miscellaneous Notes* [facility] 8:55 AM EDT Smoking Cessation Navigation Outcome of contact: Left Message Comments: A voicemail has been left for this patient regarding Tobacco Cessation support options. If this patient has any further questions they can email us at [email or web address] or call us at [phone]. [employer] Fast Food Assistant Restaurant Manager/Smoking Cessation Navigator: [facility] documented in this [facility] History of Present illness Narrative* Susan Garcia, PhD - 09/10/2022 2:13 PM EDT Alma Delia Pearl [id number] September 10, 2022 [facility] Bariatric and Metabolic [place] [facility] M61 Psychology Orientation/ Welcome Group CPT: [...] applicable. Orders placed by patient request: [facility] Nicotine screens Toxicology screens Plan: Patient to be scheduled for an individual psychology consultation visit. Susan Garcia, Ph.D. Psychologist documented in this encounterKindred [facility]04-12-2023 Evaluation note* Encounter Date Diagnosis Assessment Notes [...] and this has been helpful as well. [employer] Other 03-16-2023 Miscellaneous Notes* Telephone Encounter - Kimberly Velazquez MD - 07/22/2022 11:53 AM EDT Increase mounjaro to 5mg/week documented in this encounterKindred Hospital [facility]02-16-2023 History of Present illness Narrative* Palmira Abbasi MD - 06/24/2022 10:30 AM EST Images from the original note were not included. ENDOCRINE DIABETES EVALUATION Virtual Follow up Visit Patient Name: Alma Delia Pearl Date: 06/24/2022 LV: March 31, 2022 2:28 PM Reason for follow up: Diabetes PCP is MIAN Kolb PA [address] [place] [address] SUBJECTIVE HPI: Alma Delia Pearl is a [...] dose was 10- or 14-day packs used [id number] and 2019. Nothing significant in the past year. She wonders if she has Cushings which has beenexcluded in the past Self-Monitoring Glucose Type of Monitor: Edilia brand - ReliOn Frequency of Monitoring: only [...] meat, more fruits/veggies Has met with a anesthesiology teacher close to home - told she does [...] Bipolar 1 disorder (HCC) BMI 40.0-44.9, adult ([facility]) Crohn's disease (HCC) 2008 in [place] Depressive disorder, not elsewhere classified cymbalta Endometriosis, [...] DX W/WO SPEC BR/WA SPX 03/[address] [place] [address] Dae Reynolds. endometriosis, lasered. Stage??, PCOS [...] by mouth once daily. Gastric Acid Secretion Boat Operator - Proton Pump Inhibitors (PPIs) ondansetron [...] which included preparing to see the patient, ozsl-aa-vkap patient care, completing clinical documentation, obtaining and/or reviewing separately obtained history, performing a medically appropriate examination, and counseling and educating the patient/family/caregiver. Kimberly Velazquez MD PGY-5 Endocrinology and Metabolism [place] Seen with attending, Dr. Abbasi STAFF PHYSICIAN [...] SIGNATURE:Palmira Abbasi MD 06/24/22 documented in this encounterKindred Hospital [facility]02-13-2023 Miscellaneous Notes* Telephone Encounter - Ean Haynes MA - 06/21/2022 11:53 AM EST [...] and to upload them on her mychart. Ean Haynes MA documented in this encounterKindred Hospital [facility]01-19-2023 Miscellaneous Notes* Telephone Encounter - Kimberly Velazquez MD - 05/27/2022 12:58 PM EST Mounjaro lower dose prescribed documented in this encounterKindred Hospital [facility]01-15-2023 Evaluation + Plan note Extracted from: Title:ED [...] Appointments Appointment Date:09/23/2022 09:30:00 AM Scheduled Provider: Location:[facility] Appointment Type:FM Medicare Wellness Subsequent Future Scheduled Tests Laboratory* TIBC Calculated 12/29/21 * CBC w/ Auto Diff 12/29/21 * Ferritin 12/29/21 * Iron Level 12/29/21 * Reticulocyte Count 12/29/21 [facility]01-15-2023 Hospital Discharge instructions Patient Education 05/23/2022 10:02:03 [...] oral rehydration solution (ORS). This is an ctwy-jal-cxqmqsa medicine that helps return your body to [...] drinks, sports drinks, and soda. Eat bland, flam-hb-skrdxt foods in small amounts as you are able. These foods include bananas, applesauce, rice, lean meats, toast, and crackers. Avoid alcohol. Avoid spicy or fatty foods. Medicines Take tfut-nwp-xxvcfym and prescription medicines only as told by your health care provider. If you were prescribed an antibiotic medicine, take it as told by your health care provider. Do notstop using the antibiotic even if you start to feel better. General instructions Wash your hands often using soap and water. If soap and water are not available, use a hand administrative technician. Others in the household should wash their [...] soap and water are not available, usehand administrative technician. Contact a health care provider if your diarrhea gets worse or you have new symptoms. Get help right away if you have signs of dehydration. This information is not intended to replace advice given to you by your health care provider. Make sure you discuss any questions you have with your health care provider. Document Released: 04/15/2003 Document Revised: 09/11/2019 Document Reviewed: 09/29/2018 [facility] Patient Education 2020 [employer]. 05/23/2022 10:02:03 Nausea and Vomiting, Adult Nausea [...] water added (diluted fruit juice). Eat bland, ilcs-yy-ogsbnm foods in small amounts as you are able. These foods include bananas, applesauce, rice, lean meats, toast, and crackers. Avoid fluids that contain a lot of sugar or caffeine, such as energy drinks, sports drinks, and soda. Avoid alcohol. Avoid spicy or fatty foods. General instructions Take dfcx-nfn-asjpzze and prescription medicines only as told by your health care provider. Drink enough fluid to keep your urine pale yellow. Wash your hands often using soap and water. If soap and water are not available, use hand administrative technician. Make sure that all people in your [...] eating and drinking to prevent dehydration. Take rxil-ljp-wdroixx and prescription medicines only as told by [...] 04/25/2006 Document Revised: 08/17/2019 Document Reviewed: 10/03/2018 [facility] Patient Education 2020 [employer]. 05/23/2022 10:02:03 Abdominal Pain, Adult Abdominal Pain, [...] Follow these instructions at home: Medicines Take ptyd-hku-ouptrov and prescription medicines only as told by [...] Watch your condition for any changes. Take mmwv-fdu-olvxkvd and prescription medicines only as told by [...] 02/02/2006 Document Revised: 09/03/2019 Document Reviewed: 09/03/2019 [facility] Patient Education 2019 [employer]. Follow Up Care 05/23/2022 06:50:20 With:NERISSA RIVERA Address: [address] [place] [phone] Business (1) When:05/26/2022 09:55:53 Comments:Make sure to fill the prescriptions that was prescribed last night. Return to the emergency room ifyour pain recurs, vomiting recurs or any new symptoms. [facility]01-03-2023 Miscellaneous Notes* Telephone Encounter - Kimberly Velazquez MD - 05/11/2022 4:00 PM EST Increase mounjaro to 5mg/week per patient request documented in this encounterKindred Hospital [facility]11-23-2022 Instructions* Patient Instructions* Kimberly Velazquez MD - 03/31/2022 2:16 PM EST [email or web address] Thank you for choosing the [facility] Department of Endocrinology, Diabetes and Metabolism. Did you know that you need to call 48 hours in advance of your scheduled visit, if you are unable to make your appointment? The Endocrinology and Metabolism [place] thanks you for your commitment, because patients not showing to their appointment results in a lost opportunity for patients to receive [facility] health care at the [facility]. To Cancel an appointment, please choose one of the following: - Call the Appointment Call Center at [phone] - From [facility], Go to Appointments - Cancel Appts If cancelling, consider your need to reschedule to prevent further delays in your care. To Schedule an appointment, please choose one of the following: - Call the Appointment Call Center at [phone] - From [facility], Go to Appointments - Request an Appt documented in this encounterKindred Hospital [facility]11-23-2022 History of Present illness Narrative* [place] [...] MIAN Kolb PA [address] [place] [address] SUBJECTIVE HPI: Alma Delia Pearl is a [...] dose was 10- or 14-day packs used [id number] and 2019. Nothing significant in the past year. She wonders if she has Cushings which has beenexcluded in the past Self-Monitoring Glucose Type of Monitor: Edilia brand - ReliOn Frequency of Monitoring: only [...] meat, more fruits/veggies Has met with a anesthesiology teacher close to home - told she does [...] Bipolar 1 disorder (HCC) BMI 40.0-44.9, adult ([facility]) Crohn's disease ([facility]) 2009 in [place] Depressive disorder, not elsewhere classified cymbalta Endometriosis, [...] DX W/WO SPEC BR/WA SPX 03/[address] [place] [address] Dae Reynolds. endometriosis, lasered. Stage??, PCOS [...] by mouth once daily. Gastric Acid Secretion Boat Operator - Proton Pump Inhibitors (PPIs) ondansetron [...] which included preparing to see the patient, qxfs-ct-dgoo patient care, completing clinical documentation, obtaining and/or reviewing separately obtained history, performing a medically appropriate examination, and counseling and educating the patient/family/caregiver. Kimberly Velazquez MD PGY-5 Endocrinology and Metabolism [place] Seen with attending, Dr. Gonsalez. [facility] STAFF PHYSICIAN NOTE OF PERSONAL INVOLVEMENT IN [...] of SERVICE: 9:33 AM documented in this encounterKindred Hospital [facility]08-26-2022 Hospital Discharge instructions Patient Education 12/31/2021 22:02:41 Shortness of Breath, Adult, Iunf-jl-Lxhl Shortness of Breath, Adult Shortness of breath [...] Slowly return to your normal activities. Take spfs-xeu-wjkqddr and prescription medicines only as told by [...] 10/11/2008 Document Revised: 09/25/2018 Document Reviewed: 09/25/2018 [facility] Patient Education 2020 [employer]. 12/31/2021 22:02:36 Dizziness, Urbv-wm-Bcys Dizziness Dizziness is a common problem. It [...] balance is fine. If you need to inspector publications one place for a long time, move [...] Watch your dizziness for any changes. Take fygp-vwj-uqktgag and prescription medicines only as told by [...] 2012 Document Revised: 04/28/2018 Document Reviewed: 05/12/2017 [facility] Patient Education Dil[employer]. Follow Up Care 12/31/2021 19:48:50 With:Nerissa Hurley Address: [address] [place] [phone] When:01/03/2022 [facility]08-25-2022 Evaluation + Plan noteExtracted from: Title:ED Note Author:Mary Kay Gomez PA-C Date :12/31/21 1. Dizziness (R42: Dizziness and giddiness) Ordered: meclizine, 25 mg = 1 tab(s), Oral, TID, X 5 day(s), # 15 tab(s), Refills(s) 0, Pharmacy: [facility] #[id number], 175, cm, 12/31/21 19:57:00 EDT, Height/Length Dosing, 139.2, kg, 12/31/21 19:57:00 EDT, Weight Dosing 2. Dyspnea (R06.00: Dyspnea, unspecified) Ordered: meclizine, 25 mg = 1 tab(s), Oral, TID, X 5 day(s), # 15 tab(s), Refills(s) 0, Pharmacy: [facility] #[id number], 175, cm, 12/31/21 19:57:00 EDT, Height/Length Dosing, [...] Appointments Appointment Date:09/23/2022 09:30:00 AM Scheduled Provider: Location:[facility] Appointment Type: Medicare Wellness Subsequent Future Scheduled Tests Laboratory* TIBC Calculated 12/29/21 * SARS-CoV-2, MANUEL 03/25/21 * Rapid COVID Antigen ([facility]) 05/17/21 * CBC w/ Auto Diff 12/29/21 * Ferritin 12/29/21 * Iron Level 12/29/21 * Reticulocyte Count 12/29/21 [facility]-19-2022 Hospital Discharge instructions Patient Education 12/25/2021 01:03:04 [...] if you start to feel better. Take ldjk-ruj-dwaqrlr and prescription medicines only as told by [...] 06/02/2005 Document Revised: 10/26/2018 Document Reviewed: 10/26/2018 [facility] Patient Education 2020 [employer]. Follow Up Care 12/24/2021 21:33:17 With:Nerissa Rivera Address: [address] [place] [phone] When:12/28/2021 Comments:Take the antibiotics as prescribed you have completed the course, you can use the Zofran, Bentyl asneeded for pain and nausea. Please follow-up with your primary care doctor in the next 2 to 3 days for further evaluation management. Please return the ED for any new or worsening symptoms. [facility]08-18-2022 Evaluation + Plan noteExtracted from: Title:ED Note [...] Appointment Date:12/29/2021 09:20:00 AM Scheduled Provider:Nerissa Hurley Location:[facility] Appointment Type: ER/Hospital Follow Up Appointment Date:09/23/2022 09:30:00 AM Scheduled Provider: Location:[facility] Appointment Type:FM Medicare Wellness Subsequent Future Scheduled Tests Laboratory* SARS-CoV-2, MANUEL 03/25/21 * Rapid COVID Antigen ([facility]) 05/17/21 [facility]07-06-2022 NoteChief Complaint An interactive audio and video [...] 2 diabetes mellitus without complication, unspecified whether residential insulin use (250.00) (E11.9) Provider Impressions Surgeon: [...] This appt was conducted via phone d/t DENISE 19 precautions. Nutrition assessment completed today. Patient [...] week. 7. Begin elena (more content not included)...[facility] Discharge instructions Patient Education 11/03/2021 13:43:51 [...] height. This can be done either in [place] ([place] or metric measurements. Note that charts are available to help you find your BMI quickly and easily without having to do these calculations yourself. To calculate your BMI in [place] ([place] measurements, your health care provider will: [...] medical problems. BMI can be measured using Nigerian measurements or metric measurements. To interpret your [...] 01/04/2005 Document Revised: 04/07/2018 Document Reviewed: 03/08/2018 [facility] Patient Education 2020 [employer]. 11/03/2021 13:24:30 Mesenteric Adenitis, Adult Mesenteric Adenitis, [...] fever. Follow these instructions at home: Take flpi-gty-nvqjdbu and prescription medicines only as told by [...] 08/08/2017 Document Revised: 01/12/2019 Document Reviewed: 08/08/2017 [facility] Patient Education 2020 [employer] Follow Up Care 11/02/2021 12:12:21 With:RTC for next regularly scheduled chronic disease management visit - sooner for problems Address: When: Unknown [facility] 06-27-2022 Hospital Discharge instructions [...] fever. Follow these instructions at home: Take hech-hbi-npobrpr and prescription medicines only as told by [...] 08/08/2017 Document Revised: 01/12/2019 Document Reviewed: 08/08/2017 [facility] Patient Education Diligent Board Member Services. Follow Up Care 11/01/2021 19:06:33 With:Lacey LAZO Address: [address] [place], [place] [id number] Business (1) When:11/04/2021 21:37:32 Comments:Take the medications as prescribed as needed for pain and nausea. Please follow-up with your primary care doctor in the next 2 to 3 days. Please return to ED for any new or worsening symptoms. [facility]06-26-2022 Evaluation + Plan noteExtracted from: Title:ED Note [...] Appointment Date:11/24/2021 09:20:00 AM Scheduled Provider:Nerissa Hurley Location:[facility] [place] Appointment Type: Open Appointment Date:12/01/2021 09:00:00 AM Scheduled Provider: [facility] Type[facility]DM Diabetes Group ([facility]) Appointment Date:09/23/2022 09:30:00 AM Scheduled Provider: Location:[facility] Appointment Type:FM Medicare Wellness Subsequent Future Scheduled Tests Laboratory* SARS-CoV-2, MANUEL 03/25/21 * Rapid COVID Antigen ([facility]) 05/17/21 [facility]04-19-2022 Hospital Discharge instructions Follow Up Care 08/25/2021 10:01:14 With:Nerissa Hurley Address: [address] [place] [address]- When:Within 1 Month(s) [facility] [place] 04-12-2022 Evaluation + Plan note Diagnostic Tests Pending * Hepatitis B Surface Antigen 08/18/21 * RPR with Conf Rfx 08/18/21 * Urine Culture 08/18/21 * Rubella Antibody IgG 08/18/21 * HIV Screen 4th Generation wRfx 08/18/21 Future Scheduled Tests Laboratory* SARS-CoV-2, MANUEL 03/25/21 * Rapid COVID Antigen ([facility]) 05/17/21 [facility]11-17-2021 Evaluation + Plan note Future Scheduled Tests Laboratory* SARS-CoV-2, MANUEL 03/25/21 * Rapid COVID Antigen ([facility]) 05/17/21 [facility]09-20-2010 History of Past illness Narrative* Problem Noted Date Resolved Date Neuritis 01/26/2010 11/06/2015 Abdominal pain, unspecified site 12/17/2008 01/31/2009 Spasm of muscle 09/27/2008 01/31/2009 Abnormal coagulation profile 07/31/2008 Endometriosis, site unspecified 01/31/2009 Abdominal pain, generalized 01/08 Morbid obesity 07/09/2008 Irritable bowel syndrome 009 Overview: On Bentyl and Phenergan documented as of this encounter (statuses as of 08/18/2021) [facility] History of Past illness Narrative* Problem Noted Date Resolved Date Neuritis 01/26/2010 11/06/2015 Abdominal pain, unspecified site 12/17/2008 01/31/2009 Spasm of muscle 09/27/2008 01/31/2009 Abnormal coagulation profile 07/31/2008 Endometriosis, site unspecified 01/31/2009 Abdominal pain, generalized 01/08 Morbid obesity 07/09/2008 Irritable bowel syndrome 009 Overview: On Bentyl and Phenergan documented as of this encounter (statuses as of 04/01/2022) [facility] History of Past illness Narrative* Problem Noted Date Resolved Date Neuritis 01/26/2010 11/06/2015 Abdominal pain, unspecified site 12/17/2008 01/31/2009 Spasm of muscle 09/27/2008 01/31/2009 Abnormal coagulation profile 07/31/2008 Endometriosis, site unspecified 01/31/2009 Abdominal pain, generalized 01/08 Morbid obesity 07/09/2008 Irritable bowel syndrome 009 Overview: On Bentyl and Phenergan documented as of this encounter (statuses as of 05/13/2022) [facility] History of Past illness Narrative* Problem Noted Date Resolved Date Neuritis 01/26/2010 11/06/2015 Abdominal pain, unspecified site 12/17/2008 01/31/2009 Spasm of muscle 09/27/2008 01/31/2009 Abnormal coagulation profile 07/31/2008 Endometriosis, site unspecified 01/31/2009 Abdominal pain, generalized 01/08 Morbid obesity 07/09/2008 Irritable bowel syndrome 009 Overview: On Bentyl and Phenergan documented as of this encounter (statuses as of 05/27/2022) [facility] History of Past illness Narrative* Problem Noted Date Resolved Date Neuritis 01/26/2010 11/06/2015 Abdominal pain, unspecified site 12/17/2008 01/31/2009 Spasm of muscle 09/27/2008 01/31/2009 Abnormal coagulation profile 07/31/2008 Endometriosis, site unspecified 01/31/2009 Abdominal pain, generalized 01/08 Morbid obesity 07/09/2008 Irritable bowel syndrome 009 Overview: On Bentyl and Phenergan documented as of this encounter (statuses as of 06/21/2022) [facility] History of Past illness Narrative* Problem Noted Date Resolved Date Neuritis 01/26/2010 11/06/2015 Abdominal pain, unspecified site 12/17/2008 01/31/2009 Spasm of muscle 09/27/2008 01/31/2009 Abnormal coagulation profile 07/31/2008 Endometriosis, site unspecified 01/31/2009 Abdominal pain, generalized 01/08 Morbid obesity 07/09/2008 Irritable bowel syndrome 009 Overview: On Bentyl and Phenergan documented as of this encounter (statuses as of 06/25/2022) [facility] History of Past illness Narrative* Problem Noted Date Resolved Date Neuritis 01/26/2010 11/06/2015 Abdominal pain, unspecified site 12/17/2008 01/31/2009 Spasm of muscle 09/27/2008 01/31/2009 Abnormal coagulation profile 07/31/2008 Endometriosis, site unspecified 01/31/2009 Abdominal pain, generalized 01/08 Morbid obesity 07/09/2008 Irritable bowel syndrome 009 Overview: On Bentyl and Phenergan documented as of this encounter (statuses as of 07/22/2022) [facility] History of Past illness Narrative* Problem Noted Date Resolved Date Neuritis 01/26/2010 11/06/2015 Abdominal pain, unspecified site 12/17/2008 01/31/2009 Spasm of muscle 09/27/2008 01/31/2009 Abnormal coagulation profile 07/31/2008 Endometriosis, site unspecified 01/31/2009 Abdominal pain, generalized 01/08 Morbid obesity 07/09/2008 Irritable bowel syndrome 009 Overview: On Bentyl and Phenergan documented as of this encounter (statuses as of 09/10/2022) [facility] History of Past illness Narrative* Problem Noted Date Resolved Date Neuritis 01/26/2010 11/06/2015 Abdominal pain, unspecified site 12/17/2008 01/31/2009 Spasm of muscle 09/27/2008 01/31/2009 Abnormal coagulation profile 07/31/2008 Endometriosis, site unspecified 01/31/2009 Abdominal pain, generalized 01/08 Morbid obesity 07/09/2008 Irritable bowel syndrome 009 Overview: On Bentyl and Phenergan documented as of this encounter (statuses as of 09/13/2022) [facility] Appointment Date:08/31/2021 01:00:00 PM Scheduled Provider:Steve KINCAID RDN, Kourtney MUÑOZ Location:.DIETARY Appointment Type:DM Diabetes Initial Assessment [address] RD (F Appointment Date:09/22/2021 09:20:00 AM Scheduled Provider:Nerissa Hurley Location:[facility] Appointment Type:FM Open Future Scheduled Tests Laboratory* SARS-CoV-2, MANUEL 03/25/21 * Rapid COVID Antigen ([facility]) 05/17/21 [facility] [place] Evaluation + Plan note Future Appointments Appointment Date:08/31/2021 01:00:00 PM Scheduled Provider:Steve KINCAID RDN, Kourtney MUÑOZ [facility] Type:DM Diabetes Initial Assessment [address] RD (F Appointment Date:09/22/2021 09:20:00 AM Scheduled Provider:Nerissa Hurley Location:[facility] Appointment Type:FM Open Diagnostic Tests Pending * Microalbumin Level Urine 08/25/21 Future Scheduled Tests Laboratory* SARS-CoV-2, MANUEL 03/25/21 * Rapid COVID Antigen ([facility]) [facility] Appointment Date:10/27/2021 09:00:00 AM Scheduled Provider: Location:.DIETARY Appointment Type:DM Diabetes Group (FT) Appointment Date:11/11/2021 01:00:00 PM Scheduled Provider: Location:.DIETARY Appointment Type:DM Diabetes Group (FT) Appointment Date:11/24/2021 09:20:00 AM Scheduled Provider:Nerissa Hurley Location:[facility] Appointment Type: Open Appointment Date:01/06/2022 01:00:00 PM Scheduled Provider: Location:.DIETARY Appointment Type:DM Diabetes Group (FT) Appointment Date:09/23/2022 09:30:00 AM Scheduled Provider: Location:[facility] [employer] Appointment Type: Medicare Wellness Subsequent Future Scheduled Tests Laboratory* SARS-CoV-2, MANUEL 03/25/21 * Rapid COVID Antigen ([facility]) 05/17/21 [facility]ments Appointment Date:11/11/2021 01:00:00 PM Scheduled Provider: Location:.[facility]ET[facility] Appointment Type:DM Diabetes Group (FT) Appointment Date:11/24/2021 09:20:00 AM Scheduled Provider:Nerissa Hurley Location:[facility] Appointment Type: Open Appointment Date:12/01/2021 09:00:00 AM Scheduled Provider: [facility] Type:DM Diabetes Group (FT) Appointment Date:09/23/2022 09:30:00 AM Scheduled Provider: [facility] Type: Medicare Wellness Subsequent Future Scheduled Tests Laboratory* SARS-CoV-2, MANUEL 03/25/21 * Rapid COVID Antigen ([facility]) 05/17/21 [facility] Evaluation + Plan note Future Appointments Appointment Date:12/01/2021 09:00:00 AM Scheduled Provider: Location:.DIETARY Appointment Type:DM Diabetes Group (FT) Appointment Date:09/23/2022 09:30:00 AM Scheduled Provider: [facility] Type: Medicare Wellness Subsequent Future Scheduled Tests Laboratory* SARS-CoV-2, MANUEL 03/25/21 * Rapid COVID Antigen ([facility]) 05/17/21 [facility]ments Appointment Date:09/23/2022 09:30:00 AM Scheduled Provider: Location:[facility] [employer] Appointment Type: Medicare Wellness Subsequent Future Scheduled Tests Laboratory* TIBC Calculated 12/29/21 * SARS-CoV-2, MANUEL 03/25/21 * Rapid COVID Antigen ([facility]) 05/17/21 * CBC w/ Auto Diff 12/29/21 * Ferritin 12/29/21 * Iron Level 12/29/21 * Reticulocyte Count 12/29/21 [facility]ments Appointment Date:12/21/2022 01:00:00 PM Scheduled Provider:Irasema Love Location:[facility] Appointment Type: Open Appointment Date:09/22/2023 09:30:00 AM Scheduled Provider: Location:[facility] Appointment Type:FM Medicare Wellness Subsequent Diagnostic Tests Pending * Enteric Panel by PCR 10/22/22 * Clostridium difficile by PCR 10/22/22 Future Scheduled Tests Laboratory* TIBC Calculated 12/29/21 * CBC w/ Auto Diff 12/29/21 * Ferritin 12/29/21 * Iron Level 12/29/21 * Reticulocyte Count 12/29/21 [facility] App[facility]ments Appointment Date:06/24/2023 10:20:00 AM Scheduled Provider:Irasema Love Location:[facility] Appointment Type: Open Appointment Date:09/22/2023 09:30:00 AM Scheduled Provider: Location:[facility] Appointment Type:FM Medicare Wellness Subsequent Future Scheduled Tests Laboratory* HgbA1c 12/21/22 * Microalbumin Level Urine 12/21/22 * TIBC Calculated 12/29/21 * TSH With T4fr Reflex 12/21/22 * CBC w/ Auto Diff 12/29/21 * Ferritin 12/29/21 * Iron Level 12/29/21 * Lipid Panel 12/21/22 * Reticulocyte Count 12/29/21 [facility] Evaluation + Plan note Future Appointments Appointment Date:06/24/2023 10:20:00 AM Scheduled Provider:Irasema Love Location:[facility] Appointment Type: Open Appointment Date:09/22/2023 09:30:00 AM Scheduled Provider: Location:[facility] Appointment Type:FM Medicare Wellness Subsequent Future Scheduled Tests Laboratory* HgbA1c 12/21/22 * Microalbumin Level Urine 12/21/22 * TSH With T4fr Reflex 12/21/22 * Lipid Panel 12/21/22 [facility] [place] Evaluation + Plan note Future Appointments Appointment Date:06/14/2023 04:20:00 PM Scheduled Provider:Irasema Love Location:[facility] Appointment Type: Open Appointment Date:09/22/2023 09:30:00 AM Scheduled Provider: Location:[facility] Appointment Type:FM Medicare Wellness Subsequent Future [...] if perf and 3D Johnathon 05/20/23 [facility] Evaluation + Plan note Future Appointments Appointment Date:06/14/2023 04:20:00 PM Scheduled Provider:Irasema Love Location:[facility] Appointment Type: Open Appointment Date:09/22/2023 09:30:00 AM Scheduled Provider: Location:[facility] Appointment Type:FM Medicare Wellness Subsequent Future Scheduled Tests Laboratory* HgbA1c 12/21/22 * FSH and LH 05/20/23 * Insulin Free and Total 05/20/23 * TSH With T4fr Reflex 05/20/23 * TSH With T4fr Reflex 12/21/22 * Beta hCG Quantitative 05/20/23 * Cortisol 05/20/23 * Lipid Panel 12/21/22 * Prolactin Level 05/20/23 [facility]ments Appointment Date:09/22/2023 09:30:00 AM Scheduled Provider: Location:[facility] Appointment Type:FM Medicare Wellness Subsequent Future Scheduled Tests Laboratory* HgbA1c 12/21/22 * FSH and LH 05/20/23 * Insulin Free and Total 05/20/23 * TSH With T4fr Reflex 05/20/23 * TSH With T4fr Reflex 12/21/22 * Beta hCG Quantitative 05/20/23 * Cortisol 05/20/23 * Lipid Panel 12/21/22 * Prolactin Level 05/20/23 [facility] [place] Evaluation + Plan note Future Appointments Appointment Date:09/25/2024 08:00:00 AM Scheduled Provider: Location:[facility] Appointment Type:FM Medicare Wellness Subsequent Future Scheduled Tests Laboratory* HgbA1c 12/21/22 * FSH and LH 05/20/23 * Insulin Free and Total 05/20/23 * TSH With T4fr Reflex 05/20/23 * TSH With T4fr Reflex 12/21/22 * Beta hCG Quantitative 05/20/23 * Cortisol 05/20/23 * Lipid Panel 12/21/22 * Prolactin Level 05/20/23 [facility] Evaluation + Plan noteExtracted from: Title:ED Note Author:Luis Almanza PA-C te:11/29/23 Breast abscess (N61.1: Absce ss of the breast and nipple) Orders: acetaminophen-hydrocodone, 1 EA, Tab, Oral, Once, Stop date 11/28/23 20:34:00 EDT, STAT, Start date 11/28/23 20:34:00 EDT acetaminophen-hydrocodone, 1 tab(s), Oral, q6hr for pain for 2 day(s), 8 tab(s), Refill(s) 0, [facility] #[id number], 175, cm, 11/28/23 19:12:00 EDT, Height/Length Dosing, 139, kg, 11/28/23 19:12:00 EDT, Weight Dosing clindamycin, 300 mg = 1 cap(s), Oral, q6hr, X 7 day(s), # 28 cap(s), Refills(s) 0, Pharmacy: [facility] #[id number], 175, cm, 11/28/23 19:12:00 EDT, Height/Length Dosing, 139, kg, 11/28/23 19:12:00 EDT, Weight Dosing clindamycin, 300 mg = 2 cap(s), Cap, Oral, Once, Stop date 11/28/23 20:34:00 EDT, STAT, Start date 11/28/23 20:34:00 EDT, 11/28/23 20:34:00 EDT Future Appointments Appointment Date:01/13/2024 10:00:00 AM Scheduled Provider:KYUNG PAUL PA-C Location:[facility] Appointment Type:URO New Patient Appointment Date:09/25/2024 08:00:00 AM Scheduled Provider: Location:[facility] Appointment Type:FM Medicare Wellness Subsequent Future Scheduled Tests Laboratory* HgbA1c 12/21/22 * FSH and LH 05/20/23 * Insulin Free and Total 05/20/23 * TSH With T4fr Reflex 05/20/23 * TSH With T4fr Reflex 12/21/22 * Beta hCG Quantitative 05/20/23 * Cortisol 05/20/23 * Lipid Panel 12/21/22 * Prolactin Level 05/20/23 [facility]ments Appointment Date:12/09/2023 09:00:00 AM Scheduled Provider:Daron Hernandez MD Location:[facility] Appointment Type:[facility] 15 Appointment Date:01/13/2024 10:00:00 AM Scheduled Provider:KYUNG PAUL PA-C Location:[facility] Appointment Type:URO New Patient Appointment Date:09/25/2024 08:00:00 AM Scheduled Provider: Location:[facility] Appointment Type:FM Medicare Wellness Subsequent Future Scheduled Tests Laboratory* HgbA1c 12/21/22 * FSH and LH 05/20/23 * Insulin Free and Total 05/20/23 * TSH With T4fr Reflex 05/20/23 * TSH With T4fr Reflex 12/21/22 * Beta hCG Quantitative 05/20/23 * Cortisol 05/20/23 * Lipid Panel 12/21/22 * Prolactin Level 05/20/23 [facility] [place] Evaluation + Plan note Future Appointments Appointment Date:12/16/2023 10:30:00 AM Scheduled Provider: Location:[facility] Appointment Type:Surgical PAT FT Appointment Date:12/21/2023 02:00:00 PM Scheduled Provider: Location:[facility] Appointment Type:Surgery FT Appointment Date:01/06/2024 11:40:00 AM Scheduled Provider:Daron Hernandez MD Location:[facility] Appointment Type:GS Post Op 15 Appointment Date:01/13/2024 10:00:00 AM Scheduled Provider:KYUNG PAUL PA-C Location:[facility] Appointment Type:URO New Patient Appointment Date:09/25/2024 08:00:00 AM Scheduled Provider: Location:[facility] Appointment Type:FM Medicare Wellness Subsequent Future Scheduled Tests Laboratory* HgbA1c 12/21/22 * FSH and LH 05/20/23 * Insulin Free and Total 05/20/23 * TSH With T4fr Reflex 05/20/23 * TSH With T4fr Reflex 12/21/22 * Beta hCG Quantitative 05/20/23 * Cortisol 05/20/23 * Lipid Panel 12/21/22 * Prolactin Level 05/20/23 [facility] [place] Evaluation + Plan note Future Appointments Appointment Date:12/21/2023 02:00:00 PM Scheduled Provider: Location:[facility] Appointment Type:Surgery FT Appointment Date:01/06/2024 11:40:00 AM Scheduled Provider:Daron Hernandez MD Location:[facility] Appointment Type:GS Post Op 15 Appointment Date:01/13/2024 10:00:00 AM Scheduled Provider:KYUNG PAUL PA-C Location:[facility] Appointment Type:URO New Patient Appointment Date:09/25/2024 08:00:00 AM Scheduled Provider: Location:[facility] Appointment Type:FM Medicare Wellness Subsequent Future Scheduled Tests Laboratory* HgbA1c 12/21/22 * FSH and LH 05/20/23 * Insulin Free and Total 05/20/23 * TSH With T4fr Reflex 05/20/23 * TSH With T4fr Reflex 12/21/22 * Beta hCG Quantitative 05/20/23 * Cortisol 05/20/23 * Lipid Panel 12/21/22 * Prolactin Level 05/20/23 [facility] + Plan note Future Appointments Appointment Date:01/05/2024 02:20:00 PM Scheduled Provider:Daron Hernandez MD Location:[facility] Appointment Type:GS Post Op 15 Appointment Date:01/13/2024 10:00:00 AM Scheduled Provider:KYUNG PAUL PA-C Location:[facility] Appointment Type:URO New Patient Appointment Date:09/25/2024 08:00:00 AM Scheduled Provider: Location:[facility] Appointment Type: Medicare Wellness Subsequent Future Scheduled Tests Laboratory* FSH and LH 05/20/23 * Insulin Free and Total 05/20/23 * TSH With T4fr Reflex 05/20/23 * Beta hCG Quantitative 05/20/23 * Cortisol 05/20/23 * Prolactin Level 05/20/23 [facility] evaluation + Plan note Future Appointments Appointment Date:01/13/2024 10:00:00 AM Scheduled Provider:KYUNG PAUL PA-C Location:[facility] Appointment Type:URO New Patient Appointment Date:09/25/2024 08:00:00 AM Scheduled Provider: Location:[facility] Appointment Type:FM Medicare Wellness Subsequent Future Scheduled Tests Laboratory* FSH and LH 05/20/23 * Insulin Free and Total 05/20/23 * TSH With T4fr Reflex 05/20/23 * Beta hCG Quantitative 05/20/23 * Cortisol 05/20/23 * Prolactin Level 05/20/23 [facility] [place] evaluation + Plan note Future Appointments Appointment Date:09/25/2024 08:00:00 AM Scheduled Provider: Location:[facility] Appointment Type: Medicare Wellness Subsequent Future Scheduled Tests Laboratory* FSH and LH 05/20/23 * Insulin Free and Total 05/20/23 * TSH With T4fr Reflex 05/20/23 * Beta hCG Quantitative 05/20/23 * Cortisol 05/20/23 * Prolactin Level 05/20/23 [facility] Evaluation + Plan note Future Appointments Appointment Date:03/26/2024 10:00:00 AM Scheduled Provider: Location:[facility] Appointment Type:Urology CALL PAT FT Appointment Date:03/27/2024 10:30:00 AM Scheduled Provider: Location:[facility] Appointment Type:Urology FT Appointment Date:09/25/2024 08:00:00 AM Scheduled Provider: Location:[facility] Appointment Type:FM Medicare Wellness Subsequent Future Scheduled Tests Laboratory* FSH and LH 05/20/23 * Insulin Free and Total 05/20/23 * TSH With T4fr Reflex 05/20/23 * Beta hCG Quantitative 05/20/23 * Cortisol 05/20/23 * Prolactin Level 05/20/23 [facility] evaluation + Plan note Future Appointments Appointment Date:03/26/2024 10:00:00 AM Scheduled Provider: Location:[facility] Appointment Type:Urology CALL PAT FT Appointment Date:03/27/2024 10:30:00 AM Scheduled Provider: Location:[facility] Appointment Type:Urology FT Appointment Date:09/25/2024 08:00:00 AM Scheduled Provider: Location:[facility] Appointment Type:FM Medicare Wellness Subsequent Diagnostic Tests Pending * Strep Screen Culture 02/28/24 Future Scheduled Tests Laboratory* FSH and LH 05/20/23 * Insulin Free and Total 05/20/23 * TSH With T4fr Reflex 05/20/23 * Beta hCG Quantitative 05/20/23 * Cortisol 05/20/23 * Prolactin Level 05/20/23 [facility] evaluation + Plan note Future Appointments Appointment Date:09/25/2024 08:00:00 AM Scheduled Provider: Location:[facility] Appointment Type: Medicare Wellness Subsequent [facility] evaluation + Plan note Future Appointments Appointment Date:09/25/2024 08:00:00 AM Scheduled Provider: Location:[facility] Appointment Type: Medicare Wellness Subsequent [facility] Evaluation + Plan note Future Appointments Appointment Date:08/21/2024 11:30:00 AM Scheduled Provider: Location[facility] [place] Appointment Type:PT Rene (FT) Appointment Date:11/14/2024 10:00:00 AM Scheduled Provider:Irasema Love Location:[facility] Appointment Type: Open Appointment Date:08/14/2025 11:00:00 AM Scheduled Provider: Location:[facility] Appointment Type: Medicare Wellness Subsequent Future Scheduled Tests Laboratory* TIBC Calculated 08/15/24 * Vitamin D 25 Hydroxy 08/15/24 * CBC w/ Auto Diff 08/15/24 * Iron Percent Saturation 08/15/24 Radiology* MA Mamm Screen w/CAD if perf and 3D Johnathon 08/14/24 [facility] evaluation + Plan note Future Appointments Appointment Date:09/26/2024 11:00:00 AM Scheduled Provider: Location:[facility] Appointment Type:Surgery FT Appointment Date:11/14/2024 10:00:00 AM Scheduled Provider:Irasema Love Location:[facility] Appointment Type: Open Appointment Date:08/14/2025 11:00:00 AM Scheduled Provider: Location:[facility] Appointment Type:FM Medicare Wellness Subsequent Future Scheduled Tests Radiology* MA Mamm Screen w/CAD if perf and 3D [place] 08/14/24 [facility] evaluation + Plan note Future Appointments Appointment Date:09/26/2024 11:00:00 AM Scheduled Provider: Location:[facility] Appointment Type:Surgery FT Appointment Date:11/14/2024 10:00:00 AM Scheduled Provider:Irasema Love Location:[facility] Appointment Type: Open Appointment Date:08/14/2025 11:00:00 AM Scheduled Provider: Location:[facility] Appointment Type:FM Medicare Wellness Subsequent Diagnostic Tests Pending * Calprotectin, Fecal 09/24/24 Future Scheduled Tests Radiology* MA Mamm Screen w/CAD if perf and 3D John[place] 08/14/24 [facility] evaluation + Plan note Future Appointments Appointment Date:08/14/2025 11:00:00 AM Scheduled Provider: Location:[facility] Appointment Type: Medicare Wellness Subsequent Future Scheduled Tests Radiology* MA Mamm Screen w/CAD if perf and 3D [place] 08/14/24 [facility] evaluation note* Diagnosis Severe persistent asthma without complication Dyspnea, unspecified type Obesity, unspecified classification, unspecified obesity type, unspecified whether serious comorbidity present Allergic rhinitis due to pollen, unspecified seasonality Sleep apnea, unspecified type documented in this encounter [facility]* Diagnosis Abnormal glucose- Primary Other abnormal glucose Class 3 severe obesity due to excess calories with serious comorbidity and body mass index (BMI) of 40.0 to 44.9 in adult (HCC) PCOS (polycystic ovarian syndrome) Polycystic ovaries documented in this encounter [facility]* Diagnosis Class 3 severe obesity due to excess calories without serious comorbidity with body mass index (BMI) of 40.0 to 44.9 in adult (HCC)- Primary PCOS (polycystic ovarian syndrome) Polycystic ovaries Type 2 diabetes mellitus without complication, without long-term current use of insulin (HCC) documented in this encounter [facility]* Diagnosis Psychological factors affecting morbid obesity (HCC)- Primary Psychic factors associated with diseases classified elsewhere Tobacco use disorder documented [facility] encounter [facility] noteNo InformationNoe(ye)BRAIN Other evaluation notee(ye)BRAIN Other evaluation note* Diagnosis Type 2 diabetes mellitus without complication, without long-term current use of insulin (HCC) Class 3 severe obesity with serious comorbidity and body mass index (BMI) of 40.0 to 44.9 in adult, unspecified obesity type (HCC) documented in this encounter [facility]* Diagnosis Type 2 diabetes mellitus without complication, without long-term current use of insulin (HCC) Class 3 severe obesity with serious comorbidity and body mass index (BMI) of 40.0 to 44.9 in adult, unspecified obesity type (HCC) documented in this encounter [facility]* Diagnosis Other chronic pain [facility] Diagnosis Migraine without aura and without status migrainosus, not intractable (CMS/HCC)- Primary IIH (idiopathic intracranial hypertension) Benign intracranial hypertension Obesity, unspecified obesity severity, unspecified obesity type Other chronic pain documented in this encounter [facility] Healthcare[facility]* Diagnosis Well woman exam with routine gynecological exam Routine gynecological examination documented in this encounter [facility]* Diagnosis Other chronic pain [facility]* Diagnosis Migraine without aura and without status migrainosus, not intractable (CMS/HCC)- Primary IIH (idiopathic intracranial hypertension) Benign intracranial hypertension Obesity, unspecified obesity severity, unspecified obesity type Other chronic pain Hemicrania continua documented in this encounter [facility] note* Diagnosis Migraine without aura and without status migrainosus, not intractable (CMS/HCC)- Primary documented in this encounter [facility] note* Diagnosis Type 2 diabetes mellitus without complication, without long-term current use of insulin (HCC) Class 3 severe obesity with serious comorbidity and body mass index (BMI) of 40.0 to 44.9 in adult, unspecified obesity type (HCC) [facility] Other chronic pain [facility]* Diagnosis Type 2 diabetes mellitus without complication, without long-term current use of insulin (HCC)- Primary Class 3 severe obesity with serious comorbidity and body mass index (BMI) of 40.0 to 44.9 in adult, unspecified obesity type (HCC) [facility] Diagnosis Migraine without aura and without status migrainosus, not intractable (CMS/HCC)- Primary Obesity, unspecified obesity severity, unspecified obesity type Other chronic pain IIH (idiopathic intracranial hypertension) Benign intracranial hypertension [facility]* Diagnosis Other chronic pain documented in this encounter [facility] HealthcareEvaluation note* Diagnosis Other chronic pain documented in this encounter [facility] HealthcareEvaluation note* Diagnosis Migraine without aura and without status migrainosus, not intractable (CMS/HCC)- Primary Hemicrania continua IIH (idiopathic intracranial hypertension) Benign intracranial hypertension Obesity, unspecified obesity severity, unspecified obesity type Other chronic pain documented in this encounter [facility] HealthcareEvaluation note* Diagnosis Type 2 diabetes mellitus without complication, without long-term current use of insulin (HCC) Class 3 severe obesity with serious comorbidity and body mass index (BMI) of 40.0 to 44.9 in adult, unspecified obesity type (HCC) documented in this encounter [facility] note* Diagnosis Type 2 diabetes mellitus without complication, without long-term current use of insulin (HCC) Class 3 severe obesity with serious comorbidity and body mass index (BMI) of 40.0 to 44.9 in adult, unspecified obesity type (HCC) documented in this encounter [facility] note* Diagnosis Well woman exam with routine gynecological exam Routine gynecological examination UTI symptoms documented in this encounter [facility] HealthcareHistory general Narrative - Reported* Type Description Date Medical History PCOS Medical History cROHN'S DISEASE Medical History fIBROMYALGIA Medical History BIPOLAR Medical History MIRGRAINES Medical History SPINAL STENOSIS Medical History ANXIETY DISORDER Medical History DM 2 Medical History ASTHMA Surgical History Laparoscopy x2,Tonsils Surgical History colpo 07-13-10 Surgical History colonoscopies several Surgical History tonsillectomy Surgical History back surgery (2016) Hospitalization History blood loss, rectal 04-16 [facility] [employer] Other History general Narrative - ReportedNort [place] Other History of Present illness Narrative* Initial [...] patient receives most of her care in [place]. Her PCP is a nurse practitioner, Violet. [...] nausea and stomach cramps to the Ozempic. [facility] Work Phone: History of Present [...] patient receives most of her care in [place]. Her PCP is a nurse practitioner, Violet. [...] nausea and stomach cramps to the Ozempic. [id number] [place] Work Phone: History of Present illness Narrative* [...] patient receives most of her care in [place]. Her PCP is a nurse practitioner, Violet. [...] nausea and stomach cramps to the Ozempic. [facility] Work Phone: History of Present illness Narrative* [...] patient receives most of her care in [place]. Her PCP is a nurse practitioner, Violet. [...] nausea and stomach cramps to the Ozempic. [facility] Work Phone: Hospital course Narrative No data available for this section [facility] No data available for this section [facility] No data available for this section [facility] Summary Purpose Family History No Family History [...] History Records FoundNo Family History Records Found Advance Directives Documents on File Type Date Recorded Patient Library Supervisor Expl anation Advance Directive(s) Chief Complaint * [...] Specialty Diagnoses / Procedures Referred By Robert t Referred To Contact Diagnoses Class 3 severe obesity due to excess calories with serious comorbidity and body mass index (BMI) of 40.0 to 44.9 in adult (HCC) Procedures CONSULT [facility] OFFICE/OUTPATIENT [facility] 60-74 MINUTES Jackson Cox MD [address] [place], [place] [id number] Referral ID Status Reason Start Date Expiration Date Visits Requested Visits Authorized [id number] Pending Review PCP Requested Referral 2 03/31/2023 1 1 Additional Source Comments INFORMATION SOURCE (unrecogn ized section and content) DATE CREATED AUTHOR 10/31/2017 [facility] DATE CREATED AUTHOR AUTHOR'S ORGANIZ ATION 05/15/2021 [facility]ical Specialist DATE CREATED AUTHOR AUTHOR'S ORGANIZ ATION 11/11/2021 [facility] DATE CREATED AUTHOR AUTHOR'S ORGANIZ ATION 06/12/[address] [facility] DATE CREATED AUTHOR AUTHOR'S ORGANIZ ATION 12/19/2023 [facility] DATE CREATED AUTHOR AUTHOR'S ORGANIZ ATION 12/24/2023 [facility] DATE CREATED AUTHOR AUTHOR'S ORGANIZ ATION 12/27/2023 [facility] DATE CREATED AUTHOR AUTHOR'S ORGANIZ ATION 03/01/2024 [facility] DATE CREATED AUTHOR AUTHOR'S ORGANIZ ATION 03/03/2024 [facility] DATE CREATED AUTHOR AUTHOR'S ORGANIZ ATION 07/02/2024 [facility] DATE CREATED AUTHOR AUTHOR'S ORGANIZ ATION 07/02/2024 [facility] DATE CREATED AUTHOR AUTHOR'S ORGANIZ ATION 08/17/2024 [facility] DATE CREATED AUTHOR AUTHOR'S ORGANIZ ATION 08/27/2024 [facility] dical Specialists EPIC DATE CREATED AUTHOR AUTHOR'S ORGANIZ ATION 09/24/2024 [facility] DATE CREATED AUTHOR AUTHOR'S ORGANIZ ATION 09/26/2024 [facility] DATE CREATED AUTHOR AUTHOR'S ORGANIZ ATION 10/02/2024 [facility] DATE CREATED AUTHOR AUTHOR'S ORGANIZ ATION 10/05/2024 [facility] DATE CREATED AUTHOR AUTHOR'S ORGANIZ ATION 10/06/2024 [facility] DATE CREATED AUTHOR AUTHOR'S ORGANIZ ATION 10/27/2024 [facility] DATE CREATED AUTHOR AUTHOR'S ORGANIZ ATION 12/25/2024 [facility] DATE CREATED AUTHOR AUTHOR'S ORGANIZ ATION 01/18/2025 [facility] Source Comments (unrecognize d section and content) In the event this informatio n is protected by the Federal Confidentiality of Alcohol and Drug Abuse Patient Records regulations: The Federal rules restrict any use of the information to criminally investigate or prosecute any alcohol or drug abuse patient.[facility] the event this information is protected by the Federal Confidentiality of Alcohol and Drug Abuse Patient Records regulations: The Federal rules restrict any use of the information to criminally investigate or prosecute any alcohol or drug abuse patient.[facility] DaytonIn the event this information is protected by the Federal Confidentiality of Alcohol and Drug Abuse Patient Records regulations: The Federal rules restrict any use of the information to criminally investigate or prosecute any alcohol or drug abuse patient.[facility] DaytonIn the event this information is protected by the Federal Confidentiality of Alcohol and Drug Abuse Patient Records regulations: The Federal rules restrict any use of the information to criminally investigate or prosecute any alcohol or drug abuse patient.[facility] DaytonIn the event this information is protected by the Federal Confidentiality of Alcohol and Drug Abuse Patient Records regulations: The Federal rules restrict any use of the information to criminally investigate or prosecute any alcohol or drug abuse patient.[facility] DaytonIn the event this information is protected by the Federal Confidentiality of Alcohol and Drug Abuse Patient Records regulations: The Federal rules restrict any use of the information to criminally investigate or prosecute any alcohol or drug abuse patient.[facility] DaytonIn the event this information is protected by the Federal Confidentiality of Alcohol and Drug Abuse Patient Records regulations: The Federal rules restrict any use of the information to criminally investigate or prosecute any alcohol or drug abuse patient.[facility] DaytonIn the event this information is protected by the Federal Confidentiality of Alcohol and Drug Abuse Patient Records regulations: The Federal rules restrict any use of the information to criminally investigate or prosecute any alcohol or drug abuse patient.[facility] DaytonIn the event this information is protected by the Federal Confidentiality of Alcohol and Drug Abuse Patient Records regulations: The Federal rules restrict any use of the information to criminally investigate or prosecute any alcohol or drug abuse patient.[facility] DaytonIn the event this information is protected by the Federal Confidentiality of Alcohol and Drug Abuse Patient Records regulations: The Federal rules restrict any use of the information to criminally investigate or prosecute any alcohol or drug abuse patient.[facility] DaytonIn the event this information is protected by the Federal Confidentiality of Alcohol and Drug Abuse Patient Records regulations: The Federal rules restrict any use of the information to criminally investigate or prosecute any alcohol or drug abuse patient.[facility] DaytonIn the event this information is protected by the Federal Confidentiality of Alcohol and Drug Abuse Patient Records regulations: The Federal rules restrict any use of the information to criminally investigate or prosecute any alcohol or drug abuse patient.[facility] DaytonIn the event this information is protected by the Federal Confidentiality of Alcohol and Drug Abuse Patient Records regulations: The Federal rules restrict any use of the information to criminally investigate or prosecute any alcohol or drug abuse patient.[facility] DaytonIn the event this information is protected by the Federal Confidentiality of Alcohol and Drug Abuse Patient Records regulations: The Federal rules restrict any use of the information to criminally investigate or prosecute any alcohol or drug abuse patient.[facility] DaytonIn the event this information is protected by the Federal Confidentiality of Alcohol and Drug Abuse Patient Records regulations: The Federal rules restrict any use of the information to criminally investigate or prosecute any alcohol or drug abuse patient.[facility] DaytonIn the event this information is protected by the Federal Confidentiality of Alcohol and Drug Abuse Patient Records regulations: The Federal rules restrict any use of the information to criminally investigate or prosecute any alcohol or drug abuse patient.[facility] DaytonIn the event this information is protected by the Federal Confidentiality of Alcohol and Drug Abuse Patient Records regulations: The Federal rules restrict any use of the information to criminally investigate or prosecute any alcohol or drug abuse patient.[facility] DaytonIn the event this information is protected by the Federal Confidentiality of Alcohol and Drug Abuse Patient Records regulations: The Federal rules restrict any use of the information to criminally investigate or prosecute any alcohol or drug abuse patient.[facility] DaytonIn the event this information is protected by the Federal Confidentiality of Alcohol and Drug Abuse Patient Records regulations: The Federal rules restrict any use of the information to criminally investigate or prosecute any alcohol or drug abuse patient.[facility] DaytonIn the event this information is protected by the Federal Confidentiality of Alcohol and Drug Abuse Patient Records regulations: The Federal rules restrict any use of the information to criminally investigate or prosecute any alcohol or drug abuse patient.[facility] DaytonIn the event this information is protected by the Federal Confidentiality of Alcohol and Drug Abuse Patient Records regulations: The Federal rules restrict any use of the information to criminally investigate or prosecute any alcohol or drug abuse patient.[facility] DaytonIn the event this information is protected by the Federal Confidentiality of Alcohol and Drug Abuse Patient Records regulations: The Federal rules restrict any use of the information to criminally investigate or prosecute any alcohol or drug abuse patient.[facility] Reason for Visit (unrecogniz ed section and content) Reason Comments Refill Request Reason Comments Consult Reason Comments Prep for virtual visit Reason Comments Obesity Medical Weight Management Non-insulin Dependent Diabetes Mellitus Reason Comments Obesity Reason Comments Smoking Cessation Reason Comments Med Refill Reason Comments Migraine IIH Pain Reason Comments Well Women Visit Reason Comments Migraine IIH Reason Comments Obesity Non-insulin Dependent Diabetes Mellitus Reason Comments Insurance Authorization Reason Comments Insurance Authorization tirzepatide (OLY NJARO) 2.5 mg/0.5 mL pen injector Reason Comments Medication Preauthorization Mounjaro 5mg Reason Comments Insurance Authorization Denial - tirzepa tide (MOUNJARO) 2.5 mg/0.5 mL pen injector Reason Comments Medication Preauthorization Philguilleronan 5 m g approved Reason Comments Migraine Care Teams (unrecognized sec tion and content) 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 Specialty Start Date End Date Keila Lynch PCP - General Family Practice 04/12/16 David Eubanks Referring Neurology 02/11/20 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 Specialty Start Date End Date Keila Lynch PCP - General Family Medicine 04/12/16 David Eubanks Referring Neurology 02/11/20 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 Specialty Start Date End Date Keila Lynch PCP - General Family Medicine 04/12/16 David Eubanks Referring Neurology 02/11/20 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 Specialty Start Date End Date Keila Lynch PCP - General Family Medicine 04/12/16 David Eubanks Referring Neurology 02/11/20 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 Specialty Start Date End Date Keila Lynch PCP - General Family Medicine 04/12/16 David Eubanks Referring Neurology 02/11/20 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 Specialty Start Date End Date Keila Lynch PCP - General Family Medicine 04/12/16 David Eubanks Referring Neurology 02/11/20 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 Specialty Start Date End Date Keila Lynch PCP - General Family Medicine 04/12/16 David Eubanks Referring Neurology 02/11/20 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 Specialty Start Date End Date Keila Lynch PA-C PCP - General Family Medicine 04/12/16 David Eubanks, Referring Neurology 02/11/20 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 Specialty Start Date End Date Keila Lynch PA-C PCP - General Family Medicine 04/12/16 David Eubanks DO Referring Neurology 02/11/20 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 Specialty Start Date End Date Unallocated, Wilfredo Cook MD [facility] [place] [address] PCP - General 11/15/22 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 Specialty Start Date End Date Unallocated, Wilfredo Cook MD [address] [place] [address] PCP - General 11/15/22 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 Specialty Start Date End Date Unallocated, MD Gustavo Lewis[address] [place] [address] PCP - General 11/15/22 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 Specialty Start Date End Date Unallocated, Wilfredo Cook MD [address] [place] [address] PCP - General 11/15/22 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 Specialty Start Date End Date Unallocated, Wilfredo Cook MD [address] [place] [address] PCP - General 11/15/22 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 Specialty Start Date End Date Unallocated, Wilfredo Cook MD [address] [place] [address] PCP - General 11/15/22 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 Specialty Start Date End Date Unallocated, Wilfredo Cook MD [address] [place] [address] PCP - General 11/15/22 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 Specialty Start Date End Date Unallocated, Wilfredo Cook MD [address] [place] [address] PCP - General 11/15/22 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 Specialty Start Date End Date Keila Lynch PA-C PCP - General Family Medicine 04/12/16 David Eubanks DO Referring Neurology 02/11/20 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 Specialty Start Date End Date Unallocated, Wilfredo Cook MD [address] [place] [address] PCP - General 11/15/22 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 Specialty Start Date End Date Keila Lynch PA-C PCP - General Family Medicine 04/12/16 David Eubanks DO Referring Neurology 02/11/20 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 Specialty Start Date End Date Keila Lynch PA-C PCP - General Family Medicine 04/12/16 David Eubanks DO Referring Neurology 02/11/20 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 Specialty Start Date End Date Keila Lynch PA-C PCP - General Family Medicine 04/12/16 David Eubanks, DO Referring Neurology 02/11/20 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 Specialty Start Date End Date Mustapha Barnes DO [address] 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 [id number] Referring Physician Neurology 06/18/24 Irasema Zacarias NP [address] [place] [address] [address] [address] Referring Physician Family Medicine 06/18/24 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 Specialty Start Date End Date Mustapha Barnes DO [address] [place] [address] Referring Physician Neurology 06/18/24 Irasema Zacarias NP [address] [facility] [address] [id number] Referring Physician Family Medicine 06/18/24 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 Specialty Start Date End Date Mustapha Barnes DO [address] [place] [id number] Referring Physician Neurology 06/18/24 Irasema Zacarias NP [address] [facility] [address] [address] Referring Physician Family Medicine 06/18/24 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 Specialty Start Date End Date Keila Lynch PA-C PCP - General Family Medicine 04/12/16 David Eubanks DO Referring Neurology 02/11/20 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 Specialty Start Date End Date Keila Lynch PA-C PCP - General Family Medicine 04/12/16 David Eubanks DO Referring Neurology 02/11/20 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 Specialty Start Date End Date Mustapha Barnes DO Referring Physician Neurology 06/18/24 Irasema Zacarias NP [address] [facility] [address]; [address] [address] Referring Physician Family Medicine 06/18/24 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 Specialty Start Date End Date MollyAveljil Referring Physician Neurology 06/18/24 Irasema Zacarias NP [address] [facility] [address]; [address] [address] Referring Physician Family Medicine 06/18/24 FOR RECORDS PERTAINING TO PATIENTS WHO ARE [...] BE BASED ON THE PRIMARY CLINICAL RECORDS. [facility]. provides no warranty or guarantee of the accuracy or completeness of information in this document.
[2025-01-28 19:08] LABS: Age Gdln ACOG Testing Note (.); IGP, Aptima HPV, rfx 16/18,45 Note (.)
== END 2025-01-23 12:00 | disposition home or self-care (01) ==
LOC: LAB 11:59
PROVIDERS: Visit Provider Physician Assistant
DX: Z01.419 Encounter for gynecological examination (general) (routine) without abnormal findings (principal)
CPT/HCPCS: 87624; 88175